=== PATIENT | female | born 2000 | race Hispanic/Latino ===

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

== ENCOUNTER 2022-11-06 20:55 | Inpatient (IN) | payer BC ==
--- OUTSIDE RECORDS SUMMARY | 2022-11-06 21:34 | XMS REPORT | Continuity of Care Document ---
:2000 Author Organization [facility] t Address [address] [place] [address] Care Team Providers Name Role Phone Lillian Backnba Daugherty Primary Care Physician Wong Alonso Daugherty Attending Clinician Unavailable Neema Mac Attending Clinician Unavailable GUSTABO BROCK Attending Clinician Unavailable SO KAHN Attending Clinician Unavailable So Kahn DO Attending Clinician Gustabo Brock MD Attending Clinician Evelyne Sutton MA Attending Clinician Unavailable [place] Su RN Attending Clinician Unavailable Chago Bonilla MD Attending Clinician Dayton Ferris MD Attending Clinician Korey Eubanks CRNA Attending Clinician PAIGE ALCALA Attending Clinician Unavailable Paige Alcala MD Attending Clinician Doctor Unassigned, [place] Attending Clinician Unavailable RAISSA PEREA Attending Clinician Unavailable Richard Langley PT, Lyndsay Attending Clinician Unavailable Brit FRASER, Raissa Jaimes Attending Clinician Ela Raphael PA-C Attending Clinician Ultrasound, [facility] Attending Clinician Unavailable Regino Tinoco MD Attending Clinician REGINO TINOCO Attending Clinician Unavailable Nurse, [facility] Attending Clinician Unavailable ELA RAPHAEL Attending Clinician Unavailable Odilon Reynolds RN, Ela Attending Clinician Unavailable 2, [facility] Attending Clinician Unavailable Last BURCH, Angelica Alicea Attending Clinician Unavailable VANDANA NARAYANAN Attending Clinician Unavailable Vandana Narayanan DO Attending Clinician Only, Luiz Db Test Attending Clinician Unavailable June LEYVA, Janine Medina Attending Clinician JANINE WATKINS Attending Clinician Unavailable JAVIER SWANN Attending Clinician Unavailable Javier Swann MD Attending Clinician [phone] Neena Cardona RN Attending Clinician Unavailable Juan BOYD, Marialuisa Attending Clinician EBRAREEMA WOODSON Attending Clinician Unavailable Ebrahim BIOSTATISTICS PROFESSORReema Attending Clinician Kirsten BIOSTATISTICS PROFESSORMarcella Attending Clinician April GAS PLANT TECHNICIAN, Elsa Mccloud Attending Clinician [facility] Unavailable Jhoana Ibarra MD Attending Clinician Duke Matthew MD Attending Clinician Room, [facility] Attending Clinician Unavailable Carl Delgado MD Attending Clinician Anders Yanes MD Attending Clinician [address] [place] [address] Us Room Attending Clinician Unavailable PAIGE ALCALA Admitting Clinician Unavailable GUSTABO BROCK Admitting Clinician Unavailable CARL DELGADO Admitting Clinician Unavailable ANDERS YANES Admitting Clinician Unavailable Gustabo Brock MD Admitting Clinician Cari FRASER, Paige Jaimes Admitting Clinician Sadia FRASER, Carl Admitting Clinician Joaquín FRASER, Anders Chavez Admitting Clinician Payers Payer Name Policy Type Policy Number Effective Date Expiration Date Filomena abraham [facility] [id number] 2019 HEALTH CHOICE 00:00:00 [facility] [id number] 2022 SELECT 00:00:00 HIM AMBETTER [id number] 2021 FROM SUPERIOR 00:00:00 HEALTH Ambetter from [id number] 2021 [facility] 00:00:00 - [facility] Ambetter from [id number] 2021 Common [facility] 00:00:00 - [facility] Ambetter from [id number] 2021 [facility] 00:00:00 - [facility] Ambetter from [id number] 2021 Common [facility] 00:00:00 - [facility] Ambetter from [id number] 2021 Common [facility] 00:00:00 - [facility] [id number] 2020 [facility] 00:00:00 - [facility] [id number] 2020 [facility] 00:[facility]:00 [facility] [id number] [facility] 00:00:00 [facility] Problems Condition Condition Condition Status Onset Resolution Last Treating Co mments Source Name Details Category Date Date Treatment Clinician Date Presence Presence Disease Active 2021-11 Unive rs of of 2-12 [place]y of [place] Medical contracept contracept Br anch pa device pa device 39 weeks 39 weeks Disease Active 2021-11 Unive rs gestation gestation 0-24 ity of of of 00:00: [place] 00 Medi kailash Branch [place] Herminio Disease Active 2021-11 Univers Bang Bang 0-11 ity of contractio contractio [place] Pain of Pain of Disease Active 2021-11 Univers round round 0-11 ity of ligament ligament 00:00: [place] during during 00 Medical Bran ch Urinary Urinary Disease Active Univers incontinen incontinen 9-27 it y of ce in ce in 00:00: [place] female female 00 Medical Branch 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 [place] of [place] major major 00 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 features without without prior prior episode episode Sciatic Sciatic Disease Active Univers pain, pain, 08-12 ity of right right 00:00: [place] 00 Medical Branch Nonintract Nonintract Disease Active U nivers able able 6-10 ity of headache, headache, 00:00: Gabriele savage unspecifie unspecifie 00 Me dical d d Branch chronicity chronicity pattern, pattern, unspecifie unspecifie d headache d headache type type Dizziness Dizziness Disease Active Uni vers and and 6-02 ity of giddiness giddiness 00:00: Gabrie[place] savage 00 Medical Branch Nausea and Nausea and Disease Active U nivers vomiting vomiting 4-05 ity of during during 00:00: [place] 00 Medi kailash prior to prior to Branch 22 weeks 22 weeks gestation gestation High risk High risk Disease Active Uni vers , , 4-05 it y of antepartum antepartum [place] Anxiety Anxiety Disease Active Univers disorder, disorder, 4-05 ity of unspecifie unspecifie 00:[place] d type d type 00 Medical Branch Liveborn Liveborn Disease Active Unive rs , of infant, of 5-06 it y of jacobs jacobs 00:00: [place] s , , 00 Me dical born in born in [facility] hospital by vaginal by vaginal delivery delivery Encounter Encounter Disease Active Uni vers for for 5-04 ity of planned planned 00:00: [place] induction induction 00 Medi kailash of labor of labor Branch Amniotic Amniotic Disease Active 2020-0 Unive rs fluid fluid 3-20 ity of index index 00:00: [place] decreased decreased 00 [facility] Oligohydra Oligohydra Disease Active 2020-0 U nivers mnios mnios 3-04 ity of 00:00: [place] 00 Medical Branch Disease Active 2020-0 Univers premature premature 3-03 ity of rupture of rupture of [place] membranes membranes 00 [facility] (PPROM) (PPROM) Branch with with unknown unknown onset of onset of labor labor Oligohydra Oligohydra Disease Active 2020-0 U nivers mnios in mnios in 3-03 ity of third third 00:00: [place] trimester trimester 00 [facility] Nausea and Nausea and Disease Active 2020-0 U nivers vomiting vomiting 2-24 ity of during during 00:00: [place] 00 [facility] 31 weeks 31 weeks Disease Active 2020-0 Unive rs gestation gestation 1-02 ity of of of 00:00: [place] 00 [facility] 32 weeks 32 weeks Disease Active 2020-0 Unive rs gestation gestation 1-02 ity of of of 00:00: [place] 00 [facility] 33 weeks 33 weeks Disease Active 2020-0 Unive rs gestation gestation 1-02 ity of of of 00:00: [place] 00 [facility] 36 weeks 36 weeks Disease Active 2020-0 Unive rs gestation gestation 1-02 ity of of of 00:00: [place] 00 [facility] 37 weeks 37 weeks Disease Active 2020-0 Unive rs gestation gestation 1-02 ity of of of 00:00: [place] 00 [facility] 38 weeks 38 weeks Disease Active 2020-0 Unive rs gestation gestation 1-02 ity of of of 00:00: [place] 00 [facility] 39 weeks 39 weeks Disease Active 2020-0 Unive rs gestation gestation 1-02 ity of of of 00:00: [place] 00 [facility] High-risk High-risk Disease Active 2020-0 Uni vers 1-02 ity of in third in third 00:00: [place] trimester trimester 00 [facility] 21 weeks 21 weeks Disease Active 2020-0 Unive rs gestation gestation 1-02 ity of of of 00:00: [place] 00 [facility] 26 weeks 26 weeks Disease Active 2020-0 Unive rs gestation gestation 1-02 ity of of of 00:00: [place] 00 [facility] 29 weeks 29 weeks Disease Active Unive rs gestation gestation 1- ity of of of 00:00: [place] [facility] 30 weeks 30 weeks Disease Active Unive rs gestation gestation 1 ity of of of 00:00: [place] [facility] Mild Mild Disease Active Univers intermitte intermitte 9-24 it y of nt asthma nt asthma 00:[place] without without 00 Medical complicati complicati Br anch on on Asthma Asthma Disease Active Overview: Univer s 912 ICD10 ity of 00:00: Diagnosis [place] [facility] Monitor Branch Utility Recurrent Recurrent Problem Com mon sinusitis sinusitis Spir it - [facility] [id number] Enlarged Problem Comm on tonsils [facility] [id number] Body mass Problem Com mon index [facility] [BMI] - [facility] 34.0-34.9, [facility] [id number] Other Problem Common obesity Spirit due to - [facility] excess [facility] [id number] Non-season Problem Com mon al Spirit allergic - [facility] Allergies, Adverse Reactions, Alerts Allergy Allergy Status Severity Reaction(s) Onset Inactive Treating Comm ents Source Name Type Date Date Clinician NO KNOWN Drug Active Univers ALLERGIE Class ity of S [facility] Social History Social Habit Start Date Stop Date Quantity Comments Source ASSERTION 2021-12-23 University 00:00:00 [facility] History [facility] University o f Alcohol Frequency [place] M edical Branch History SDSC University o f Alcohol Std [place] Medical Drinks [place] History SDSC University o f Alcohol Binge [place] Medic al [place] History of Passive smoker University of tobacco use [facility] Sex Assigned [facility] Exposure to 2022-10-25 2022-11-04 Not sure University of SARS-CoV-2 00:00:00 08:23:00 [facility] (event) Branch Alcohol intake 2022-10-27 2022-10-27 Ex-drinker University 00:00:00 00:00:00 (finding) [facility] Tobacco use and 2022-09-08 2022-09-08 Smokeless tobacco Un iversity of exposure 00:00:00 00:00:00 non-user [facility] Tobacco Comment 2022-06-23 2022-06-23 denies smoke Univers ity of 00:00:00 00:00:00 exposure [facility] Alcohol Comment 2021-06-27 2021-06-27 2x a month Universit y of 00:00:00 00:00:00 [facility] Smoking Status Start Date Stop Date Source Never smoked tobacco [facility] Medications Ordered Filled Start Stop Current Ordering Indication Dosage Frequency Signature Comments Components Source Medication Medication Date Date Medication? Clinician (SIG) Name Name ondansetron 2021-11- No 4mg 4 mg, Univ ers (ZOFRAN-ODT 2-20 12-20 Oral, ity of ) 15:30: 14:23 ONCE, 1 [place] disintegrat 00 :00 dose, On Medi kailash ing tablet Tue Branch 4 mg 11/04/22 at 0930, Routine ondansetron 2021-11- No [id number] 4mg Take 1 Univers 4 mg 2-20 12-20 tablet by ity of disintegrat 00:00: 00:00 [place] tablet 00 :00 every 8 Medica l (eight) Branch hours as needed for Nausea and Vomiting (N/V). levonorgest 2021-11- No [id number] 1{devic Univers reL 2-12 e} ity of (KYLEENA) 23:00: 22:01 [place] IUD 1 00 :00 Paper Bag Maker [place] levonorgest 2021-11- No [id number] 1{devic 1 Device, Univers reL 2-12 e} Intrauteri ity of (KYLEENA) 23:00: 22:01 [place], [place]CE, [place] IUD 1 00 :00 1 dose, On Paper Bag Maker Mon Branch 10/27/22 at 1700, Routine levonorgest 2021-11- No [id number] 1{devic Univers reL 2-10 27-12 e} ity of (KYLEENA) 23:00: 22:01 [place] IUD 1 00 :00 Paper Bag Maker Branch levonorgest 2021-11- No [id number] 1{devic 1 Device, Univers reL 2-12 e} Intrauteri ity of (KYLEENA) 23:00: 22:01 [place], ONCE, [place] IUD 1 00 :00 1 dose, On Paper Bag Maker Mon Branch 10/27/22 at 1700, Routine busPIRone 2021-11 Yes 7.5mg Take 7.5 Uni vers 7.5 mg 2-12 mg by ity of tablet 15:29: mouth in [place] [address] the Medical morning Branch and 7.5 mg in the evening. busPIRone 2021-11 Yes 7.5mg Take 7.5 Uni vers 7.5 mg 2-12 mg by ity of tablet 15:29: mouth in [place] [address] the Medical morning Branch and 7.5 mg in the evening. busPIRone 2021-11 Yes 7.5mg Take 7.5 Uni vers 7.5 mg 2-12 mg by ity of tablet 15:29: mouth in [place] [address] the Medical morning Branch and 7.5 mg in the evening. busPIRone 2021-11 Yes 7.5mg Take 7.5 Uni vers 7.5 mg 2-12 mg by ity of tablet 15:29: mouth in [place] [address] the Medical morning Branch and 7.5 mg in the evening. fluconazole 2021-11 Yes [id number] 200mg Take 1 Univers (DIFLUCAN) 2-09 tablet by ity of 200 mg 00:00: mouth in [place] tablet 00 the Medical morning. Branch fluconazole 2021-11 Yes [id number] 200mg Take 1 Univers (DIFLUCAN) 2-09 tablet by ity of 200 mg 00:00: mouth in [place] tablet 00 the Medical morning. Branch fluconazole 2021-11 Yes [id number] 200mg Take 1 Univers (DIFLUCAN) 2-09 tablet by ity of 200 mg 00:00: mouth in [place] tablet 00 the Medical morning. Branch fluconazole 2021-11 Yes [id number] 200mg Take 1 Univers (DIFLUCAN) 2-09 tablet by ity of 200 mg 00:00: mouth in [place] tablet 00 the Medical morning. Branch fluconazole 2021-11- No [id number] 200mg Take 1 Univers (DIFLUCAN) 2-09 12-20 tablet by ity of 200 mg 00:00: 00:00 mouth in [place] tablet 00 :00 the Medical morning. Branch busPIRone 2021-11 Yes 7.5mg Take 7.5 Uni vers 7.5 mg 1-09 mg by ity of tablet 11:52: mouth in [place] [address] the Medical morning Branch and 7.5 mg in the evening. busPIRone 2021-11 Yes 7.5mg Take 7.5 Uni vers 7.5 mg 1-09 mg by ity of tablet 11:52: mouth in [place] [address] the [facility] morning Branch and 7.5 mg in the evening. busPIRone 2021-11 Yes 7.5mg Take 7.5 Uni vers 7.5 mg 1-09 mg by ity of tablet 11:52: mouth in [place] [address] the [facility] morning Branch and 7.5 mg in the evening. busPIRone 2021-11 Yes 7.5mg Take 7.5 Uni vers 7.5 mg 1-09 mg by ity of tablet 11:52: mouth in [place] [address] the [facility] morning [place] and 7.5 mg in the evening. busPIRone 2021-11 Yes 7.5mg Take 7.5 Uni vers 7.5 mg 1-09 mg by ity of tablet 11:52: mouth in [place] [address] the [facility] morning [place] and 7.5 mg in the evening. busPIRone 2021-11 Yes 7.5mg Take 7.5 Uni vers 7.5 mg 1-09 mg by ity of tablet 11:52: mouth in [address] and 7.5 mg in the evening. busPIRone 2021-11 Yes 7.5mg Take 7.5 Uni vers 7.5 mg 1-09 mg by ity of tablet 11:52: mouth in [address] and 7.5 mg in the evening. miSOPROStoL 2021-11 Yes [id number] 200ug Take 1 Univers 200 mcg 1-09 tablet by ity of tablet 00:00: mouth [place] [address] SEE-INSTRU Medical CTIONS. Branch Take one tab the night before and one tab the morning of procedure busPIRone 2021-11 Yes [id number] 7.5mg Take 1 U nivers 7.5 mg 1-09 tablet by ity of tablet 00:00: mouth in [place] [address] the [facility] morning [place] and 1 tablet in the evening. miSOPROStoL 2021-11 Yes [id number] 200ug Take 1 Univers 200 mcg 1-09 tablet by ity of tablet 00:00: mouth [address] CTIONS. Branch Take one tab the night before and one tab the morning of procedure busPIRone 2021-11 Yes [id number] 7.5mg Take 1 U nivers 7.5 mg 1-09 tablet by ity of tablet 00:00: mouth in [place] 00 the Medical morning Branch and 1 tablet in the evening. miSOPROStoL 2021-11 Yes [id number] 200ug Take 1 Univers 200 mcg 1-09 tablet by ity of tablet 00:00: mouth [address] CTIONS[address] Branch Take one tab the night before and one tab the morning of procedure busPIRone 2021-11 Yes [id number] 7.5mg Take 1 U nivers 7.5 mg 1-09 tablet by ity of tablet 00:00: mouth in [place] 00 the Medical morning Branch and 1 tablet in the evening. miSOPROStoL 2021-11 Yes [id number] 200ug Take 1 Univers 200 mcg 1-09 tablet by ity of tablet 00:00: mouth [address] CTIONS[address] Branch Take one tab the night before and one tab the morning of procedure busPIRone 2021-11 Yes [id number] 7.5mg Take 1 U nivers 7.5 mg 1-09 tablet by ity of tablet 00:00: mouth in [place] the Medical morning Branch and 1 tablet in the evening. miSOPROStoL 2021-11 Yes [id number] 200ug Take 1 Univers 200 mcg 1-09 tablet by ity of tablet 00:00: mouth [address] CTIONS[address] Branch Take one tab the night before and one tab the morning of procedure busPIRone 2021-11 Yes [id number] 7.5mg Take 1 U nivers 7.5 mg 1-09 tablet by ity of tablet 00:00: mouth in [place] [address] the Medical morning Branch and 1 tablet in the evening. miSOPROStoL 2021-11 Yes [id number] 200ug Take 1 Univers 200 mcg 1-09 tablet by ity of tablet 00:00: mouth [address] CTIONS[address] Branch Take one tab the night before and one tab the morning of procedure busPIRone 2021-11 Yes [id number] 7.5mg Take 1 U nivers 7.5 mg 1-09 tablet by ity of tablet 00:00: mouth in [place] 00 the Medical morning Branch and 1 tablet in the evening. miSOPROStoL 2021-11 Yes [id number] 200ug Take 1 Univers 200 mcg 1-09 tablet by ity of tablet 00:00: mouth [address] CTIONS[address] Branch Take one tab the night before and one tab the morning of procedure busPIRone 2021-11 Yes [id number] 7.5mg Take 1 U nivers 7.5 mg 1-09 tablet by ity of tablet 00:00: mouth in [place] 00 the Medical morning Branch and 1 tablet in the evening. miSOPROStoL 2021-11 Yes [id number] 200ug Take 1 Univers 200 mcg 1-09 tablet by ity of tablet 00:00: mouth [address] CTIONS[address] Branch Take one tab the night before and one tab the morning of procedure busPIRone 2021-11 Yes [id number] 7.5mg Take 1 U nivers 7.5 mg 1-09 tablet by ity of tablet 00:00: mouth in [place] [address] the Medical morning Branch and 1 tablet in the evening. miSOPROStoL 2021-11 Yes [id number] 200ug Take 1 Univers 200 mcg 1-09 tablet by ity of tablet 00:00: mouth [address] CTIONS[address] Branch Take one tab the night before and one tab the morning of procedure busPIRone 2021-11 Yes [id number] 7.5mg Take 1 U nivers 7.5 mg 1-09 tablet by ity of tablet 00:00: mouth in [place] the Medical morning Branch and 1 tablet in the evening. miSOPROStoL 2021-11 Yes [id number] 200ug Take 1 Univers 200 mcg 1-09 tablet by ity of tablet 00:00: mouth [address] Medical CTIONS. Branch Take one tab the night before and one tab the morning of procedure busPIRone 2021-11 Yes [id number] 7.5mg Take 1 U nivers 7.5 mg 1-09 tablet by ity of tablet 00:00: mouth in [place] [address] the Medical morning Branch and 1 tablet in the evening. busPIRone 2021-11 Yes [id number] 7.5mg Take 1 U nivers 7.5 mg 1-09 tablet by ity of tablet 00:00: mouth in [place] 00 the Medical morning Branch and 1 tablet in the evening. miSOPROStoL 2021-11- No [id number] 200ug Take 1 Univers 200 mcg 11-24-20 tablet by ity of tablet 00:00: 00:00 mouth [place] 00 :00 SEE-INSTRU Medical CTIONS. Branch Take one tab the night before and one tab the morning of procedure SERTraline 2021-11 Yes 50mg 50 mg, Unive rs (ZOLOFT) 0-25 Oral, ity of tablet 50 14:00: DAILY, [place] mg 00 First dose Medical on [facility] 09/09/22 at 0900, Until Discontinu ed, Routine 2021-11 Yes 1{tbl} 1 tablet, Un socorro vitamin 0-25 Oral, ity of w/FA tablet 14:00: [place]ILY, [place] 1 [place] 00 First dose Medic al on [facility] 09/09/22 at 0900, Until Discontinu ed, Routine cetirizine 2021-11- No Take by Uni vers HCl (ZYRTEC 0-25 10-25 mouth. ity o f ORAL) 12:44: 00:00 [place] 53 :00 Medical Branch acetaminoph 2021-11- No Take by Un socorro en (TYLENOL 0-25 10-25 mouth. ity o f ORAL) 12:44: 00:00 [place] 53 :00 Medical Branch 2021-11 Yes [id number] 1{tbl} Take 1 Univers vitamin 0-25 102 tablet by ity of w/FA tablet 00:00: mouth [place] the Medical morning. Branch docusate 2021-11 Yes [id number] 200mg Take 2 Univers 100 mg 0-25 102 capsules ity of capsule 00:00: by mouth [place] 00 once daily Medical as needed Branch for Constipati on. ferrous 2021-11 Yes [id number] 325mg Take 1 Univers sulfate 325 0-25 102 tablet by ity of mg (65 mg 00:00: [facility] [place] [facility] the Medical tablet morning Branch and 1 tablet in the evening. ibuprofen 2021-11 Yes [id number] 600mg Take 1 Univers 600 mg 0-25 102 tablet by ity of tablet 00:00: mouth [place] 00 every 6 Medical (six) Branch hours as needed (Pain). Take with food or milk. 2021-11 Yes [id number] 1{tbl} Take 1 Univers vitamin 0-25 102 tablet by ity of w/FA tablet 00:00: [place] 00 the Medical morning. Branch docusate 2021-11 Yes [id number] 200mg Take 2 Univers 100 mg 0-25 102 capsules ity of capsule 00:00: by mouth [place] 00 once daily Medical as needed Branch for Constipati on. ferrous 2021-11 Yes [id number] 325mg Take 1 Univers sulfate 325 0-25 102 tablet by ity of mg (65 mg 00:00: [place] iron[place] 00 the Medical tablet morning Branch and 1 tablet in the evening. ibuprofen 2021-11 Yes [id number] 600mg Take 1 Univers 600 mg 0-25 102 tablet by ity of tablet 00:00: mouth [place] 00 every 6 Medical (six) Branch hours as needed (Pain). Take with food or milk. 2021-11- No [id number] 1{tbl} Take 1 Univers vitamin 0-25 11-09 102 tablet by ity of w/FA tablet 00:00: 00:00 mouth in [place] :00 the Medical morning. Branch docusate 2021-11- No [id number] 200mg Take 2 Univers 100 mg 0-25 11-09 102 capsules ity of capsule 00:00: 00:00 by mouth [place] 00 :00 once daily Medical as needed Branch for Constipati on. ferrous 2021-11- No [id number] 325mg Take 1 Univers sulfate 325 0-25 11- 102 tablet by it y of mg (65 mg 00:00: 00:00 mouth in [place] iron) 00 :00 the Medical tablet morning Branch and 1 tablet in the evening. ibuprofen 2021-11- No [id number] 600mg Take 1 Univers 600 mg 0-25 11-09 102 tablet by ity of tablet 00:00: 00:00 mouth [place] 00 :00 every 6 Medical (six) Branch hours as needed (Pain). Take with food or milk. rho(D) 2021-11 Yes 300ug 300 mcg, Univer s immune 0-24 Intramuscu ity of globulin 21:38: lar, ONCE, [place] as (RHOGAM) 55 For 1 Medical syringe 300 dose, Branch mcg Conditiona l, Routine HYDROcodone 2021-11 Yes 1{tbl} 1 tablet, Univers -acetaminop 0-24 Oral, ity of hen (NORCO 21:38: Q6HPRN, [place] 5) 5-325 mg 51 Starting Medi kailash tablet 1 on Thu Branch tablet 09/08/22 at 1638, Until Discontinu ed, Routine, Pain (scale 7-10) ibuprofen 2021-11 Yes 600mg 600 mg, Univ ers (IBU) 0-24 Oral, ity of tablet 600 21:38: Q6HPRN, [place] mg 51 Starting Medical on Mon Branch 09/08/22 at 1638, Until Discontinu ed, Routine, Pain (scale 4-6) acetaminoph 2021-11 Yes 650mg 650 mg, Un socorro en 0-24 Oral, ity of (TYLENOL) 21:38: Q6HPRN, [place] tablet 650 51 Starting Medic al mg on Thu Branch 09/08/22 at 1638, Until Discontinu ed, Routine, Pain (scale 1-3) diphenhydrA 2021-11 Yes 25mg 25 mg, Univ ers MINE 0-24 Oral, ity of (BENADRYL) 21:38: Q6HPRN, [place] tablet 25 51 Starting Medica l mg on Thu Branch 09/08/22 at 1638, Until Discontinu ed, Routine, Sleep, Itching ondansetron 2021-11 Yes 4mg 4 mg, Slow Univers (ZOFRAN 0-24 IV Push, ity of (PF)) 21:38: Q8HPRN, [place] injection 4 51 Starting Medi kailash mg on Thu Branch 09/08/22 at 1638, Until Discontinu ed, Routine, Nausea and Vomiting (N/V) simethicone 2021-11 Yes 160mg 160 mg, Un socorro (GAS RELIEF 0-24 Oral, ity of (SIMETHICON 21:38: PC+HSPRN, [place] E)) 51 Starting Medical chewable on Thu Branch tablet 160 09/08/22 mg at 1638, Until Discontinu ed, Routine, Gas docusate 2021-11 Yes 200mg 200 mg, Unive rs (COLACE) 0-24 Oral, ity of capsule 200 21:38: QDAILYPRN, [place] mg 51 Starting Medical on Mon Branch 09/08/22 at 1638, Until Discontinu ed, Routine, Constipati on magnesium 2021-11 Yes 30mL 30 mL, Univer s hydroxide 0-24 Oral, ity of (MILK OF 21:38: QDAILYPRN, [place] MAGNESIA) 51 Starting Medica l 400 mg/5 mL on Thu Branch suspension 09/08/22 30 mL at 1638, Until Discontinu ed, Routine, Constipati on benzocaine- 2021-11 Yes Topical, [place] menthol 0-24 PRN, ity of (DERMOPLAST 21:38: [place] 20-0.5 % 51 on [facility] Medical topical 09/08/22 Branch spray at 1638, Until Discontinu ed, Routine, Perineum discomfort witch Sima 2021-11 Yes Topical, Un [place] (TUCKS) 50 0-24 Q4HPRN, ity of % topical 21:24: [place] pad 48 on [facility] Medical 09/08/22 Branch at 1624, Until Discontinu ed, Routine, rectal/hem orrhoidal pain rho(D) 2021-11 Yes 300ug 300 mcg, Univer s immune 0-24 Intramuscu ity of globulin 21:19: lar, ONCE, [place] (RHOGAM) 31 For 1 Medical syringe 300 dose, Branch mcg Conditiona l, Routine HYDROcodone 2021-11 Yes 1{tbl} 1 tablet, Univers -acetaminop 0-24 Oral, ity of hen (NORCO 21:15: Q6HPRN, [place] 5) 5-325 mg 19 Starting Medi kailash tablet 1 on [facility] Branch tablet 09/08/22 at 1615, Until Discontinu ed, Routine, Pain (scale 7-10) ibuprofen 2021-11 Yes 600mg 600 mg, Univ ers (IBU) 0-24 Oral, ity of tablet 600 21:15: Q6HPRN, [place] mg 19 Starting Medical on Mon Branch 09/08/22 at 1615, Until Discontinu ed, Routine, Pain (scale 4-6) acetaminoph 2021-11 Yes 650mg 650 mg, [place] en 0-24 Oral, ity of (TYLENOL) 21:15: Q6HPRN, [place] tablet 650 19 Starting Medic al mg on Thu Branch 09/08/22 at 1615, Until Discontinu ed, Routine, Pain (scale 1-3) diphenhydrA 2021-11 Yes 25mg 25 mg, Univ ers MINE 0-24 Oral, ity of (BENADRYL) 21:15: Q6HPRN, [place] tablet 25 19 Starting Medica l mg on Thu09/08/22 at 1615, Until Discontinu ed, Routine, Sleep, Itching ondansetron 2021-11 Yes 4mg 4 mg, Slow Univers (ZOFRAN 0-24 IV Push, ity of (PF)) 21:15: Q8HPRN, [place] injection 4 19 Starting Medi kailash mg on Thu09/08/22 at 1615, Until Discontinu ed, Routine, Nausea and Vomiting (N/V) simethicone 2021-11 Yes 160mg 160 mg, [place] (GAS RELIEF 0-24 Oral, ity of (SIMETHICON 21:15: PC+HSPRN, [place] E)) 19 Starting Medical chewable on Thu tablet 160 09/08/22 mg at 1615, Until Discontinu ed, Routine, Gas docusate 2021-11 Yes 200mg 200 mg, Unive rs (COLACE) 0-24 Oral, ity of capsule 200 21:15: QDAILYPRN, [place] mg 19 Starting Medical on Thu Branch 09/08/22 at 1615, Until Discontinu ed, Routine, Constipati on magnesium 2021-11 Yes 30mL 30 mL, Univer s hydroxide 0-24 Oral, ity of (MILK OF 21:15: QDAILYPRN, [place] MAGNESIA) 19 Starting Medica l 400 mg/5 mL on Thu suspension 09/08/22 30 mL at 1615, Until Discontinu ed, Routine, Constipati on oxytocin 2021-11 Yes 600mL/h 600 mL/hr, Univers (PITOCIN) 0-24 IV ity of 30 units in 21:15: Infusion, [place] NS 500 mL 18 PRN, For Medica l IV infusion post Branch delivery uterine atony., Starting on Thu09/08/[address] art at 600 mL/hr for 1 hr then 150 mL/hr for 1 hr.
oxytocin 2021-11 Yes 300mL/h 300 mL/hr, Univers (PITOCIN) 0-24 IV ity of 30 units in 21:15: Infusion, [place] NS 500 mL 18 SEE-INSTRU Medi kailash IV infusion CTIONS, Branc h Starting on 09/08/[address] art at 300 mL/hr for 1 hr then 150 mL/hr for 1 hr. & nbsp; For post delivery uterotonic .
benzocaine- 2021-11 Yes Topical, [place] menthol 0-24 PRN, ity of (DERMOPLAST 21:15: [place] ) 20-0.5 % 18 on Thu Medical topical 09/08/22 Branch spray at 1615, Until Discontinu ed, Routine, Perineum discomfort fentaNYL-ro 2021-11- No Epidural, Univers pivacaine 2 0-24 10-24 ONCE INTRA i ty of mcg/mL-0.1 17:18: 22:23 PROCEDURE, [place] % (PF) in 00 :48 Starting Medica l NS 200 mL on Thu Branch epidural 09/08/22 infusion at 1218, RTU Until Thu09/08/22 at 1723, Routine, Intra-op lidocaine-e 2021-11- No Intraderma Univers pinephrine 0-24 10-24 l, ONCE ity o f (XYLOCAINE 17:13: 22:23 INTRA [place] W/EPINEPHRI 00 :48 PROCEDURE, Me dical NE) 1.5 Starting Branch %-1:200,000 on Mon injection 09/08/22 at 1213, Until Thu09/08/22 at 1723, Routine, Intra-op lidocaine 2021-11- No Slow IV Univ ers in 0-24 10-24 Push, ONCE ity of NaCl,iso-os 17:10: 22:23 INTRA [place] mo(PF) 100 00 :48 PROCEDURE, Med ical mg/10 mL (1 Starting Bran ch %) on Mon injection 09/08/22 syringe at 1210, Until 09/08/22 at 1723, Routine, Intra-op cetirizine 2021-11 Yes Take by Univ ers HCl (ZYRTEC 0-24 mouth. ity of ORAL) 16:20: [place] [address] Medical Branch acetaminoph 2021-11 Yes Take by Uni vers en (TYLENOL 0-24 mouth. ity of ORAL) 16:20: [address] cetirizine 2021-11 Yes Take by [facility] ers HCl (ZYRTEC 0-24 mouth. ity of ORAL) 16:20: [address] acetaminoph 2021-11 Yes Take by Uni vers en (TYLENOL 0-24 mouth. ity of ORAL) 16:20: [address] lactated 2021-11- No 500mL at 999 Unive rs ringers IV 0-24 10-24 mL/hr, 500 it y of infusion 09:30: 16:23 mL, IV [place] 500 mL 00 :13 Infusion, Medical ONCE, 1 Branch dose, On Thu09/08/22 at 0430, Routine sodium 2021-11- No 30mL 30 mL, Univers citrate-cit 0-24 10-24 Oral, ity of urvashi acid 09:20: 16:24 PRE-PROCED [place] (BICITRA) 25 :00 URE ONCE, Medic al 500-334 1 dose, Branch mg/5 mL Starting solution 30 on Thu mL 09/08/22 at 0420, Until Discontinu ed, Routine, Surgery/Pr ocedure oxytocin 2021-11- No 2mU/min at 2-40 [place] (PITOCIN) 0-24 10-24 mL/hr, IV ity of 30 units in 09:20: 21:39 Infusion, [place] NS 500 mL 22 :33 TITRATE, Medica l IV infusion Starting Bran ch on Thu09/08/22 at 0420, Until Thu09/08/22 at 1639, CHERYL [id number] IV 2021-11- No 1000mL at 1-125 U nivers infusion 0-24 10-24 mL/hr, IV ity o f 1,000 mL 09:20: 21:39 Infusion, [place] 22 :33 TITRATE, Medical Starting Branch on Thu09/08/22 at 0420, Until Thu09/08/22 at 1639, Routine FENTanyl PF 2021-11- No 100ug 100 mcg, Univers (SUBLIMAZE 0-24 10-24 Slow IV ity o f (PF)) 09:20: 21:24 Push, [place] injection 19 :48 Q1HPRN, Medical 100 mcg Starting Branch on Thu09/08/22 at 0420, Until Thu09/08/22 at 1624, Routine, contractio n pain without an epidural and SVE < 8 cm and Cat I strip cetirizine 2021-11 Yes Take by Univ ers HCl (ZYRTEC 0-21 mouth. ity of ORAL) 04:58: [address] acetaminoph 2021-11 Yes Take by Uni vers en (TYLENOL 0-21 mouth. ity of ORAL) 04:58: [address] cetirizine 2021-11 Yes Take by Univ ers HCl (ZYRTEC 0-21 mouth. ity of ORAL) 04:58: [address] acetaminoph 2021-11 Yes Take by Uni vers en (TYLENOL 0-21 mouth. ity of ORAL) 04:58: [address] cetirizine 2021-11 Yes Take by Univ ers HCl (ZYRTEC 0-18 mouth. ity of ORAL) 01:08: [address] acetaminoph 2021-11 Yes Take by Uni vers en (TYLENOL 0-18 mouth. ity of ORAL) 01:08: [address] cetirizine 2021-11 Yes Take by Univ ers HCl (ZYRTEC 0-18 mouth. ity of ORAL) 01:08: [address] acetaminoph 2021-11 Yes Take by Uni vers en (TYLENOL 0-18 mouth. ity of ORAL) 01:08: [address] busPIRone 2021-11- Yes [id number] 7.5mg Take 1 Univers 7.5 mg 0-11 10-26 tablet by ity of tablet 00:00: 04:59 mouth in [place] 00 :00 the Medical morning Branch and 1 tablet in the evening. Do all this for 14 days. busPIRone 2021-11- Yes [id number] 7.5mg Take 1 Univers 7.5 mg 0-11 10-26 tablet by ity of tablet 00:00: 04:59 mouth in [place] 00 :00 the Medical morning Branch and 1 tablet in the evening. Do all this for 14 days. busPIRone 2021-11- Yes [id number] 7.5mg Take 1 Univers 7.5 mg 0-11 10-26 tablet by ity of tablet 00:00: 04:59 mouth in [place] 00 :00 the Medical morning [place] and 1 tablet in the evening. Do all this for 14 days. busPIRone 2021-11- Yes 7.5mg Take 1 Univers 7.5 mg 0-11 10-26 tablet by ity of tablet 00:00: 04:59 mouth in [place] 00 :00 the [facility] morning [place] and 1 tablet in the evening. Do all this for 14 days. busPIRone 2021-11- Yes 7.5mg Take 1 Univers 7.5 mg 0-11 10-26 tablet by ity of tablet 00:00: 04:59 mouth in [place] 00 :00 the [facility] morning [place] and 1 tablet in the evening. Do all this for 14 days. busPIRone 2021-11- Yes 7.5mg Take 1 Univers 7.5 mg 0-11 10-26 tablet by ity of tablet 00:00: 04:59 mouth in [place] 00 :00 the [facility] and 1 tablet in the evening. Do all this for 14 days. busPIRone 2021-11- Yes [id number] 7.5mg Take 1 Univers 7.5 mg 0-11 10-26 tablet by ity of tablet 00:00: 04:59 mouth in [place] 00 :00 the [facility] and 1 tablet in the evening. Do all this for 14 days. busPIRone 2021-11- Yes 7.5mg Take 1 Univers 7.5 mg 0-11 10-26 tablet by ity of tablet 00:00: 04:59 mouth in [place] 00 :00 the [facility] and 1 tablet in the evening. Do all this for 14 days. busPIRone 2021-11- Yes 7.5mg Take 1 Univers 7.5 mg 0-11 10-26 tablet by ity of tablet 00:00: 04:59 mouth in [place] 00 :00 the [facility] and 1 tablet in the evening. Do all this for 14 days. SERTraline Yes [id number] 50mg Take 1 U nivers (ZOLOFT) 50 9-27 tablet by ity of mg tablet 00:00: [facility] [place] [facility] morning. Branch busPIRone 2021-0 Yes [id number] 10mg Take 1 U nivers 10 mg 9-27 tablet by ity of tablet 00:00: mouth in [place] 00 the Medical morning Branch and 1 tablet in the evening. SERTraline 2021-0 Yes [id number] 50mg Take 1 U nivers (ZOLOFT) 50 9-27 tablet by ity of mg tablet 00:00: [place] 00 the Medical morning. Branch busPIRone 2021-0 Yes [id number] 10mg Take 1 U nivers 10 mg 9-27 tablet by ity of tablet 00:00: mouth in [place] 00 the Medical morning Branch and 1 tablet in the evening. SERTraline 2021-0 Yes [id number] 50mg Take 1 U nivers (ZOLOFT) 50 9-27 tablet by ity of mg tablet 00:00: [place] the Medical morning. Branch busPIRone 0 Yes [id number] 10mg Take 1 U nivers 10 mg 9-27 tablet by ity of tablet 00:00: mouth in [place] 00 the Medical morning Branch and 1 tablet in the evening. SERTraline 0 Yes [id number] 50mg Take 1 U nivers (ZOLOFT) 50 9-27 tablet by ity of mg tablet 00:00: [place] 00 the Medical morning. Branch SERTraline 0 Yes [id number] 50mg Take 1 U nivers (ZOLOFT) 50 9-27 tablet by ity of mg tablet 00:00: [place] 00 the Medical morning. Branch SERTraline 0 Yes [id number] 50mg Take 1 U nivers (ZOLOFT) 50 9-27 tablet by ity of mg tablet 00:00: [place] 00 the Medical morning. Branch SERTraline 0 Yes [id number] 50mg Take 1 U nivers (ZOLOFT) 50 9-27 tablet by ity of mg tablet 00:00: [place] 00 the Medical morning. Branch SERTraline 2021-0 Yes [id number] 50mg Take 1 U nivers (ZOLOFT) 50 9-27 tablet by ity of mg tablet 00:00: [place] 00 the Medical morning. Branch SERTraline 0 Yes [id number] 50mg Take 1 U nivers (ZOLOFT) 50 9-27 tablet by ity of mg tablet 00:00: [place] 00 the Medical morning. Branch SERTraline 0 Yes [id number] 50mg Take 1 U nivers (ZOLOFT) 50 9-27 tablet by ity of mg tablet 00:00: [place] 00 the Medical morning. Branch SERTraline 0 Yes [id number] 50mg Take 1 U nivers (ZOLOFT) 50 9-27 tablet by ity of mg tablet 00:00: [place] 00 the Medical morning. Branch SERTraline 0 Yes [id number] 50mg Take 1 U nivers (ZOLOFT) 50 9-27 tablet by ity of mg tablet 00:00: [place] 00 the Medical morning. Branch SERTraline Yes [id number] 50mg Take 1 U nivers (ZOLOFT) 50 9-27 tablet by ity of mg tablet 00:00: [place] 00 the Medical morning. Branch SERTraline 2021- No [id number] 50mg Take 1 Univers (ZOLOFT) 50 9-27 11-09 tablet by it y of mg tablet 00:00: 00:00 mouth in [place] 00 :00 the Medical morning. Branch busPIRone 2021- No [id number] 10mg Take 1 Univers 10 mg 9-27 10-11 tablet by ity of tablet 00:00: 00:00 mouth in [place] 00 :00 the Medical morning Branch and 1 tablet in the evening. cetirizine Yes Take by [facility] ers HCl (ZYRTEC 9-21 mouth. ity of ORAL) 19:14: [address] acetaminoph Yes Take by Uni vers en (TYLENOL 9-21 mouth. ity of ORAL) 19:14: [address] cetirizine Yes Take by [facility] ers HCl (ZYRTEC 9-21 mouth. ity of ORAL) 19:14: [address] acetaminoph Yes Take by Uni vers en (TYLENOL 9-21 mouth. ity of ORAL) 19:14: [address] cetirizine Yes Take by Univ ers HCl (ZYRTEC 9-21 mouth. ity of ORAL) 19:14: [address] acetaminoph Yes Take by Uni vers en (TYLENOL 9-21 mouth. ity of ORAL) 19:14: [address] cetirizine Yes Take by Univ ers HCl (ZYRTEC 9-21 mouth. ity of ORAL) 19:14: [address] acetaminoph Yes Take by Uni vers en (TYLENOL 9-21 mouth. ity of ORAL) 19:14: [address] cetirizine Yes Take by Univ ers HCl (ZYRTEC 9-21 mouth. ity of ORAL) 19:14: [address] acetaminoph Yes Take by Uni vers en (TYLENOL 9-21 mouth. ity of ORAL) 19:14: [address] cetirizine Yes Take by Univ ers HCl (ZYRTEC 9-21 mouth. ity of ORAL) 19:14: [address] acetaminoph Yes Take by Uni vers en (TYLENOL 9-21 mouth. ity of ORAL) 19:14: [address] albuterol Yes [id number] 2{puff} Inhale 2 Univers 90 9-13 Puffs ity of mcg/actuati 00:00: every 6 [place] on inhaler 00 (six) Medical hours as Branch needed for Wheezing or Shortness of Breath. albuterol Yes [id number] 2{puff} Inhale 2 Univers 90 9-13 Puffs ity of mcg/actuati 00:00: every 6 [place] on inhaler 00 (six) Medical hours as Branch needed for Wheezing or Shortness of Breath. albuterol 0 Yes [id number] 2{puff} Inhale 2 Univers 90 9-13 Puffs ity of mcg/actuati 00:00: every 6 [place] on inhaler 00 (six) Medical hours as Branch needed for Wheezing or Shortness of Breath. albuterol Yes [id number] 2{puff} Inhale 2 Univers 90 9-13 Puffs ity of mcg/actuati 00:00: every 6 [place] on inhaler 00 (six) Medical hours as Branch needed for Wheezing or Shortness of Breath. albuterol Yes [id number] 2{puff} Inhale 2 Univers 90 9-13 Puffs ity of mcg/actuati 00:00: every 6 [place] on inhaler 00 (six) Medical hours as Branch needed for Wheezing or Shortness of Breath. albuterol Yes [id number] 2{puff} Inhale 2 Univers 90 9-13 Puffs ity of mcg/actuati 00:00: every 6 [place] on inhaler 00 (six) Medical hours as Branch needed for Wheezing or Shortness of Breath. albuterol Yes [id number] 2{puff} Inhale 2 Univers 90 9-13 Puffs ity of mcg/actuati 00:00: every 6 [place] on inhaler 00 (six) Medical hours as Branch needed for Wheezing or Shortness of Breath. albuterol Yes [id number] 2{puff} Inhale 2 Univers 90 9-13 Puffs ity of mcg/actuati 00:00: every 6 [place] on inhaler 00 (six) Medical hours as Branch needed for Wheezing or Shortness of Breath. albuterol Yes [id number] 2{puff} Inhale 2 Univers 90 9-13 Puffs ity of mcg/actuati 00:00: every 6 [place] on inhaler 00 (six) Medical hours as Branch needed for Wheezing or Shortness of Breath. albuterol Yes [id number] 2{puff} Inhale 2 Univers 90 9-13 Puffs ity of mcg/actuati 00:00: every 6 [place] on inhaler 00 (six) Medical hours as Branch needed for Wheezing or Shortness of Breath. albuterol Yes [id number] 2{puff} Inhale 2 Univers 90 9-13 Puffs ity of mcg/actuati 00:00: every 6 [place] on inhaler 00 (six) Medical hours as Branch needed for Wheezing or Shortness of Breath. albuterol Yes [id number] 2{puff} Inhale 2 Univers 90 9-13 Puffs ity of mcg/actuati 00:00: every 6 [place] on inhaler 00 (six) Medical hours as Branch needed for Wheezing or Shortness of Breath. albuterol Yes [id number] 2{puff} Inhale 2 Univers 90 9-13 Puffs ity of mcg/actuati 00:00: every 6 [place] on inhaler 00 (six) Medical hours as Branch needed for Wheezing or Shortness of Breath. albuterol Yes [id number] 2{puff} Inhale 2 Univers 90 9-13 Puffs ity of mcg/actuati 00:00: every 6 [place] on inhaler 00 (six) Medical hours as Branch needed for Wheezing or Shortness of Breath. albuterol Yes [id number] 2{puff} Inhale 2 Univers 90 9-13 Puffs ity of mcg/actuati 00:00: every 6 [place] on inhaler 00 (six) Medical hours as Branch needed for Wheezing or Shortness of Breath. albuterol Yes [id number] 2{puff} Inhale 2 Univers 90 9-13 Puffs ity of mcg/actuati 00:00: every 6 [place] on inhaler 00 (six) Medical hours as Branch needed for Wheezing or Shortness of Breath. albuterol Yes [id number] 2{puff} Inhale 2 Univers 90 9-13 Puffs ity of mcg/actuati 00:00: every 6 [place] on inhaler 00 (six) Medical hours as Branch needed for Wheezing or Shortness of Breath. albuterol Yes [id number] 2{puff} Inhale 2 Univers 90 9-13 Puffs ity of mcg/actuati 00:00: every 6 [place] on inhaler 00 (six) Medical hours as Branch needed for Wheezing or Shortness of Breath. albuterol Yes [id number] 2{puff} Inhale 2 Univers 90 9-13 Puffs ity of mcg/actuati 00:00: every 6 [place] on inhaler 00 (six) Medical hours as Branch needed for Wheezing or Shortness of Breath. albuterol Yes [id number] 2{puff} Inhale 2 Univers 90 9-13 Puffs ity of mcg/actuati 00:00: every 6 [place] on inhaler 00 (six) Medical hours as Branch needed for Wheezing or Shortness of Breath. albuterol Yes [id number] 2{puff} Inhale 2 Univers 90 9-13 Puffs ity of mcg/actuati 00:00: every 6 [place] on inhaler 00 (six) Medical hours as Branch needed for Wheezing or Shortness of Breath. albuterol Yes [id number] 2{puff} Inhale 2 Univers 90 9-13 Puffs ity of mcg/actuati 00:00: every 6 [place] on inhaler 00 (six) Medical hours as Branch needed for Wheezing or Shortness of Breath. albuterol Yes [id number] 2{puff} Inhale 2 Univers 90 9-13 Puffs ity of mcg/actuati 00:00: every 6 [place] on inhaler 00 (six) Medical hours as Branch needed for Wheezing or Shortness of Breath. albuterol Yes [id number] 2{puff} Inhale 2 Univers 90 9-13 Puffs ity of mcg/actuati 00:00: every 6 [place] on inhaler 00 (six) Medical hours as Branch needed for Wheezing or Shortness of Breath. albuterol Yes [id number] 2{puff} Inhale 2 Univers 90 9-13 Puffs ity of mcg/actuati 00:00: every 6 [place] on inhaler 00 (six) Medical hours as Branch needed for Wheezing or Shortness of Breath. albuterol Yes [id number] 2{puff} Inhale 2 Univers 90 9-13 Puffs ity of mcg/actuati 00:00: every 6 [place] on inhaler 00 (six) Medical hours as Branch needed for Wheezing or Shortness of Breath. albuterol Yes [id number] 2{puff} Inhale 2 Univers 90 9-13 Puffs ity of mcg/actuati 00:00: every 6 [place] on inhaler 00 (six) Medical hours as Branch needed for Wheezing or Shortness of Breath. albuterol Yes [id number] 2{puff} Inhale 2 Univers 90 9-13 Puffs ity of mcg/actuati 00:00: every 6 [place] on inhaler 00 (six) Medical hours as Branch needed for Wheezing or Shortness of Breath. Amoxicillin Amoxicillin 2021- No 1{table BID Amoxicilli -Pot -Pot 07-14 t} n-Pot Clavulanate Clavulanate 00:00: 00:00 Clavulanat 875-125 MG 875-125 MG 00 :00 e 875-125 MG Amoxicillin Amoxicillin 2021- No 1{table BID Amoxicilli -Pot -Pot 07-14 t} n-Pot Clavulanate Clavulanate 00:00: 00:00 Clavulanat 875-125 MG 875-125 MG 00 :00 e 875-125 MG acetaminoph Yes Take by Uni vers en (TYLENOL 8-23 mouth. ity of ORAL) 14:46: [place] [address] Medical Branch acetaminoph Yes Take by Uni vers en (TYLENOL 8-23 mouth. ity of ORAL) 14:46: [place] [address] Medical Branch acetaminoph Yes Take by Uni vers en (TYLENOL 8-23 mouth. ity of ORAL) 14:46: [place] [address] Medical Branch acetaminoph Yes Take by Uni vers en (TYLENOL 8-23 mouth. ity of ORAL) 14:46: [address] Branch acetaminoph Yes Take by Uni vers en (TYLENOL 8-23 mouth. ity of ORAL) 14:46: [address] Branch acetaminoph Yes Take by Uni vers en (TYLENOL 8-23 mouth. ity of ORAL) 14:46: [address] Branch busPIRone 5 2021-0 Yes [id number] 5mg Take 1 Univers mg tablet 8-23 tablet by ity o f 00:00: mouth in [place] [address] the Medical morning Branch and 1 tablet at noon and 1 tablet in the evening. busPIRone 5 2021-0 Yes [id number] 5mg Take 1 Univers mg tablet 8-23 tablet by ity o f 00:00: mouth in [place] 00 the Medical morning Branch and 1 tablet at noon and 1 tablet in the evening. busPIRone 5 2021-0 Yes [id number] 5mg Take 1 Univers mg tablet 8-23 tablet by ity o f 00:00: mouth in [place] 00 the Medical morning Branch and 1 tablet at noon and 1 tablet in the evening. busPIRone 5 2021-0 Yes [id number] 5mg Take 1 Univers mg tablet 8-23 tablet by ity o f 00:00: mouth in [place] 00 the Medical morning Branch and 1 tablet at noon and 1 tablet in the evening. busPIRone 5 2021-0 Yes [id number] 5mg Take 1 Univers mg tablet 8-23 tablet by ity o f 00:00: mouth in [place] 00 the Medical morning Branch and 1 tablet at noon and 1 tablet in the evening. busPIRone 5 2021-0 Yes [id number] 5mg Take 1 Univers mg tablet 8-23 tablet by ity o f 00:00: mouth in [place] 00 the Medical morning Branch and 1 tablet at noon and 1 tablet in the evening. busPIRone 5 2021-0 Yes [id number] 5mg Take 1 Univers mg tablet 8-23 tablet by ity o f 00:00: mouth in [place] 00 the Medical morning Branch and 1 tablet at noon and 1 tablet in the evening. busPIRone 5 2021-0 2021- No [id number] 5mg Take 1 Univers mg tablet 8-23 09-27 tablet by ity of 00:00: 00:00 mouth in [place] 00 :00 the Medical morning Branch and 1 tablet at noon and 1 tablet in the evening. albuterol Yes [id number] 2{puff} Inhale 2 Univers 90 8-15 Puffs ity of mcg/actuati 00:00: every 6 [place] on inhaler 00 (six) Medical hours as Branch needed for Wheezing or Shortness of Breath. albuterol Yes [id number] 2{puff} Inhale 2 Univers 90 8-15 Puffs ity of mcg/actuati 00:00: every 6 [place] on inhaler 00 (six) Medical hours as Branch needed for Wheezing or Shortness of Breath. albuterol Yes [id number] 2{puff} Inhale 2 Univers 90 8-15 Puffs ity of mcg/actuati 00:00: every 6 [place] on inhaler 00 (six) Medical hours as Branch needed for Wheezing or Shortness of Breath. albuterol Yes [id number] 2{puff} Inhale 2 Univers 90 8-15 Puffs ity of mcg/actuati 00:00: every 6 [place] on inhaler 00 (six) Medical hours as Branch needed for Wheezing or Shortness of Breath. albuterol Yes [id number] 2{puff} Inhale 2 Univers 90 8-15 Puffs ity of mcg/actuati 00:00: every 6 [place] on inhaler 00 (six) Medical hours as Branch needed for Wheezing or Shortness of Breath. albuterol Yes [id number] 2{puff} Inhale 2 Univers 90 8-15 Puffs ity of mcg/actuati 00:00: every 6 [place] on inhaler 00 (six) Medical hours as Branch needed for Wheezing or Shortness of Breath. albuterol 2021- No [id number] 2{puff} Inhale 2 Univers 90 8-15 09-13 Puffs ity of mcg/actuati 00:00: 00:00 every 6 [place] on inhaler 00 :00 (six) Medical hours as Branch needed for Wheezing or Shortness of Breath. albuterol 2021- No [id number] 2{puff} Inhale 2 Univers 90 8-15 09-13 Puffs ity of mcg/actuati 00:00: 00:00 every 6 [place] on inhaler 00 :00 (six) Medical hours as Branch needed for Wheezing or Shortness of Breath. busPIRone 5 Yes [id number] 5mg Take 1 Univers mg tablet 8-08 tablet by ity o f 00:00: mouth in [place] the Medical morning Branch and 1 tablet in the evening. busPIRone 5 0 Yes [id number] 5mg Take 1 Univers mg tablet 8-08 tablet by ity o f 00:00: mouth in [place] 00 the Medical morning Branch and 1 tablet in the evening. busPIRone 5 2021-0 Yes [id number] 5mg Take 1 Univers mg tablet 8-08 tablet by ity o f 00:00: mouth in [place] the Medical morning Branch and 1 tablet in the evening. busPIRone 5 0 Yes [id number] 5mg Take 1 Univers mg tablet 8-08 tablet by ity o f 00:00: mouth in [place] 00 the Medical morning Branch and 1 tablet in the evening. busPIRone 5 2021-0 Yes [id number] 5mg Take 1 Univers mg tablet 8-08 tablet by ity o f 00:00: mouth in [place] 00 the Medical morning Branch and 1 tablet in the evening. busPIRone 5 2021-0 Yes [id number] 5mg Take 1 Univers mg tablet 8-08 tablet by ity o f 00:00: mouth in [place] 00 the Medical morning Branch and 1 tablet in the evening. busPIRone 5 2021-0 2021- No [id number] 5mg Take 1 Univers mg tablet 8-08 08-23 tablet by ity of 00:00: 00:00 mouth in [place] 00 :00 the Medical morning Branch and 1 tablet in the evening. acetaminoph 2021- No 1000mg 1,000 mg, Univers en 06-12 07- Oral, ity of (TYLENOL) 08:30: 08:24 ONCE, [place] tablet 00 :[place] dose, On Medical 1,[address] [facility] 06/12/22 at 0330, CHERYL acetaminoph Yes Take by Uni vers en (TYLENOL 6-28 mouth. ity of ORAL) 13:09: [address] acetaminoph Yes Take by Uni vers en (TYLENOL 6-28 mouth. ity of ORAL) 13:09: [address] acetaminoph 0 Yes Take by [facility] (TYLENOL 6-28 mouth. ity of ORAL) 13:09: [address] acetaminoph 0 Yes Take by [facility] (TYLENOL 6-28 mouth. ity of ORAL) 13:09: [address] acetaminoph 0 Yes Take by [facility] (TYLENOL 6-28 mouth. ity of ORAL) 13:09: [address] acetaminoph 0 Yes Take by [facility] (TYLENOL 6-28 mouth. ity of ORAL) 13:09: [address] acetaminoph 0 Yes Take by [facility] (TYLENOL 6-28 mouth. ity of ORAL) 13:09: [address] acetaminoph 2022-0 Yes Take by [facility] (TYLENOL 6-28 mouth. ity of ORAL) 13:09: [place] [address] [facility] acetaminoph 0 Yes Take by [facility] (TYLENOL 6-28 mouth. ity of ORAL) 13:09: [place] [address] [facility] acetaminoph 2021-0 Yes Take by [facility] (TYLENOL 6-28 mouth. ity of ORAL) 13:09: [place] [address] [facility] acetaminoph 0 Yes Take by [facility] (TYLENOL 6-28 mouth. ity of ORAL) 13:09: [place] [address] [facility] acetaminoph 0 Yes Take by [facility] (TYLENOL 6-28 mouth. ity of ORAL) 13:09: [place] [address] [facility] magnesium 0 Yes [id number] 400mg Take 1 U nivers oxide 400 6-10 tablet by ity o f mg (241.3 00:00: mouth [place] mg 00 daily. Medical magnesium) Branch tablet magnesium 0 Yes [id number] 400mg Take 1 U nivers oxide 400 6-10 tablet by ity o f mg (241.3 00:00: mouth [place] mg 00 daily. Medical magnesium) Branch tablet magnesium 2021-0 Yes [id number] 400mg Take 1 [facility] nivers oxide 400 6-10 tablet by ity o f mg (241.3 00:00: mouth [place] mg 00 daily. Medical magnesium) Branch tablet magnesium 2021-0 Yes [id number] 400mg Take 1 [facility] nivers oxide 400 6-10 tablet by ity o f mg (241.3 00:00: mouth [place] mg 00 daily. Medical magnesium) Branch tablet magnesium 2021-0 Yes [id number] 400mg Take 1 [facility] nivers oxide 400 6-10 tablet by ity o f mg (241.3 00:00: mouth [place] mg 00 daily. Medical magnesium) Branch tablet magnesium 2021-0 Yes [id number] 400mg Take 1 [facility] nivers oxide 400 6-10 tablet by ity o f mg (241.3 00:00: mouth [place] mg 00 daily. Medical magnesium) Branch tablet magnesium 2021-0 Yes [id number] 400mg Take 1 [facility] nivers oxide 400 6-10 tablet by ity o f mg (241.3 00:00: mouth [place] mg 00 daily. Medical magnesium) Branch tablet magnesium 2021-0 Yes [id number] 400mg Take 1 [facility] nivers oxide 400 6-10 tablet by ity o f mg (241.3 00:00: mouth [place] mg 00 daily. Medical magnesium) Branch tablet magnesium 2021-0 Yes [id number] 400mg Take 1 [facility] nivers oxide 400 6-10 tablet by ity o f mg (241.3 00:00: mouth [place] mg 00 daily. Medical magnesium) Branch tablet magnesium 2021-0 Yes [id number] 400mg Take 1 [facility] nivers oxide 400 6-10 tablet by ity o f mg (241.3 00:00: mouth [place] mg 00 daily. Medical magnesium) Branch tablet magnesium 2021-0 Yes [id number] 400mg Take 1 [facility] nivers oxide 400 6-10 tablet by ity o f mg (241.3 00:00: mouth [place] mg 00 daily. Medical magnesium) Branch tablet magnesium 2021-0 Yes [id number] 400mg Take 1 [facility] nivers oxide 400 6-10 tablet by ity o f mg (241.3 00:00: mouth [place] mg 00 daily. Medical magnesium) Branch tablet magnesium 2021-0 Yes [id number] 400mg Take 1 U nivers oxide 400 6-10 tablet by ity o f mg (241.3 00:00: mouth [place] mg 00 daily. Medical magnesium) Branch tablet magnesium 2021-0 Yes [id number] 400mg Take 1 [facility] nivers oxide 400 6-10 tablet by ity o f mg (241.3 00:00: mouth [place] mg 00 daily. Medical magnesium) Branch tablet magnesium 2021-0 Yes [id number] 400mg Take 1 [facility] nivers oxide 400 6-10 tablet by ity o f mg (241.3 00:00: mouth [place] mg 00 daily. Medical magnesium) Branch tablet magnesium 2021-0 Yes [id number] 400mg Take 1 [facility] nivers oxide 400 6-10 tablet by ity o f mg (241.3 00:00: mouth [place] mg 00 daily. Medical magnesium) Branch tablet magnesium 2021-0 Yes [id number] 400mg Take 1 [facility] nivers oxide 400 6-10 tablet by ity o f mg (241.3 00:00: mouth [place] mg 00 daily. Medical magnesium) Branch tablet magnesium 2021-0 Yes [id number] 400mg Take 1 [facility] nivers oxide 400 6-10 tablet by ity o f mg (241.3 00:00: mouth [place] mg 00 daily. Medical magnesium) Branch tablet magnesium 2021-0 Yes [id number] 400mg Take 1 [facility] nivers oxide 400 6-10 tablet by ity o f mg (241.3 00:00: mouth [place] mg 00 daily. Medical magnesium) Branch tablet magnesium 2021-0 Yes [id number] 400mg Take 1 [facility] nivers oxide 400 6-10 tablet by ity o f mg (241.3 00:00: mouth [place] mg 00 daily. Medical magnesium) Branch tablet magnesium 2021-0 Yes [id number] 400mg Take 1 [facility] nivers oxide 400 6-10 tablet by ity o f mg (241.3 00:00: mouth [place] mg 00 daily. Medical magnesium) Branch tablet magnesium 2021-0 Yes [id number] 400mg Take 1 [facility] nivers oxide 400 6-10 tablet by ity o f mg (241.3 00:00: mouth [place] mg 00 daily. Medical magnesium) Branch tablet magnesium 2021-0 Yes [id number] 400mg Take 1 [facility] n[facility] oxide 400 6-10 tablet by ity o f mg (241.3 00:00: mouth [place] mg 00 daily. Medical magnesium) Branch tablet magnesium 2021-0 Yes [id number] 400mg Take 1 [facility] nivers oxide 400 6-10 tablet by ity o f mg (241.3 00:00: mouth [place] mg 00 daily. Medical magnesium) Branch tablet magnesium 2021-0 Yes [id number] 400mg Take 1 [facility] nivers oxide 400 6-10 tablet by ity o f mg (241.3 00:00: mouth [place] mg 00 daily. Medical magnesium) Branch tablet magnesium 2021-0 Yes [id number] 400mg Take 1 [facility] nivers oxide 400 6-10 tablet by ity o f mg (241.3 00:00: mouth [place] mg 00 daily. Medical magnesium) Branch tablet magnesium 2021-0 Yes [id number] 400mg Take 1 U nivers oxide 400 6-10 tablet by ity o f mg (241.3 00:00: mouth [place] mg 00 daily. Medical magnesium) Branch tablet magnesium 2021-0 Yes [id number] 400mg Take 1 [facility] nivers oxide 400 6-10 tablet by ity o f mg (241.3 00:00: mouth [place] mg 00 daily. Medical magnesium) Branch tablet magnesium 2021-0 Yes [id number] 400mg Take 1 [facility] nivers oxide 400 6-10 tablet by ity o f mg (241.3 00:00: mouth [place] mg 00 daily. Medical magnesium) Branch tablet magnesium 2021-0 Yes [id number] 400mg Take 1 [facility] nivers oxide 400 6-10 tablet by ity o f mg (241.3 00:00: mouth [place] mg 00 daily. Medical magnesium) Branch tablet magnesium 2021-0 Yes [id number] 400mg Take 1 [facility] nivers oxide 400 6-10 tablet by ity o f mg (241.3 00:00: mouth [place] mg 00 daily. Medical magnesium) Branch tablet magnesium 2021-0 Yes [id number] 400mg Take 1 [facility] nivers oxide 400 6-10 tablet by ity o f mg (241.3 00:00: mouth [place] mg 00 daily. Medical magnesium) Branch tablet magnesium 2021- No [id number] 400mg Take 1 [facility] oxide 400 6-10 10-25 tablet by ity of mg (241.3 00:00: 00:00 mouth [place] mg 00 :00 daily. Medical magnesium) Branch tablet cetirizine Yes Take by [facility] ers HCl (ZYRTEC 6-09 mouth. ity of ORAL) 13:09: [place] [address] [facility] Branch acetaminoph 0 Yes Take by [facility] (TYLENOL 6-09 mouth. ity of ORAL) 13:09: [place] [address] [facility] Branch cetirizine 2021-0 Yes Take by [facility] ers HCl (ZYRTEC 6-09 mouth. ity of ORAL) 13:09: [place] [address] [facility] acetaminoph 2021-0 Yes Take by [facility] (TYLENOL 6-09 mouth. ity of ORAL) 13:09: [place] [address] [facility] Branch cetirizine 2021-0 Yes Take by [facility] ers HCl (ZYRTEC 6-09 mouth. ity of ORAL) 13:09: [place] [address] [facility] Branch cetirizine 2021-0 Yes Take by [facility] HCl (ZYRTEC 6-09 mouth. ity of ORAL) 13:09: [place] [address] [facility] cetirizine 2021-0 Yes Take by [facility] HCl (ZYRTEC 6-09 mouth. ity of ORAL) 13:09: [place] [address] [facility] Branch cetirizine 2021-0 Yes Take by [facility] HCl (ZYRTEC 6-09 mouth. ity of ORAL) 13:09: [place] [address] [facility] Branch cetirizine 0 Yes Take by [facility] ers HCl (ZYRTEC 6-09 mouth. ity of ORAL) 13:09: [address] Branch cetirizine 0 Yes Take by [facility] ers HCl (ZYRTEC 6-09 mouth. ity of ORAL) 13:09: [place] [address] [facility] Branch cetirizine 0 Yes Take by [facility] HCl (ZYRTEC 6-09 mouth. ity of ORAL) 13:09: [place] [address] [facility] Branch cetirizine 0 Yes Take by [facility] HCl (ZYRTEC 6-09 mouth. ity of ORAL) 13:09: [address] Branch cetirizine 2021-0 Yes Take by [facility] HCl (ZYRTEC 6-09 mouth. ity of ORAL) 13:09: [address] Branch cetirizine 0 Yes Take by [facility] HCl (ZYRTEC 6-09 mouth. ity of ORAL) 13:09: [address] Branch cetirizine 0 Yes Take by [facility] HCl (ZYRTEC 6-09 mouth. ity of ORAL) 13:09: [address] Branch cetirizine 0 Yes Take by [facility] HCl (ZYRTEC 6-09 mouth. ity of ORAL) 13:09: [address] cetirizine 0 Yes Take by [facility] ers HCl (ZYRTEC 6-09 mouth. ity of ORAL) 13:09: [address] Branch cetirizine 0 Yes Take by [facility] HCl (ZYRTEC 6-09 mouth. ity of ORAL) 13:09: [address] Branch cetirizine 0 Yes Take by [facility] HCl (ZYRTEC 6-09 mouth. ity of ORAL) 13:09: [address] Branch cetirizine 0 Yes Take by [facility] HCl (ZYRTEC 6-09 mouth. ity of ORAL) 13:09: [address] Branch cetirizine 0 Yes Take by [facility] HCl (ZYRTEC 6-09 mouth. ity of ORAL) 13:09: [address] Branch cetirizine 2021-0 Yes Take by [facility] HCl (ZYRTEC 6-09 mouth. ity of ORAL) 13:09: [place] [facility] cetirizine 2021-0 Yes Take by [facility] ers HCl (ZYRTEC 5-05 mouth. ity of ORAL) 11:32: [place] [facility] cetirizine 2021-0 Yes Take by [facility] HCl (ZYRTEC 5-05 mouth. ity of ORAL) 11:32: [place] [facility] cetirizine 0 Yes Take by [facility] ers HCl (ZYRTEC 5-05 mouth. ity of ORAL) 11:32: [address] cetirizine 0 Yes Take by [facility] ers HCl (ZYRTEC 5-05 mouth. ity of ORAL) 11:32: [place] [facility] cetirizine 2021-0 Yes Take by [facility] ers HCl (ZYRTEC 5-05 mouth. ity of ORAL) 11:32: [address] cetirizine 0 Yes Take by [facility] ers HCl (ZYRTEC 5-05 mouth. ity of ORAL) 11:32: [address] ondansetron 2021-0 Yes 4mg Take 1 Univ ers (ZOFRAN) 4 4-07 tablet by ity of mg tablet 00:00: mouth [place] 00 every 8 Medical (eight) Branch hours as needed for Nausea and Vomiting (N/V). Pt to take prn nausea and vomiting not controlled by other medication . ondansetron 2021-0 Yes 4mg Take 1 [facility] ers (ZOFRAN) 4 4-07 tablet by ity of mg tablet 00:00: mouth [place] 00 every 8 Medical (eight) Branch hours as needed for Nausea and Vomiting (N/V). Pt to take prn nausea and vomiting not controlled by other medication . ondansetron 2-0 Yes 4mg Take 1 [facility] ers (ZOFRAN) 4 4-07 tablet by ity of mg tablet 00:00: mouth [place] 00 every 8 Medical (eight) Branch hours as needed for Nausea and Vomiting (N/V). Pt to take prn nausea and vomiting not controlled by other medication . ondansetron 2-0 Yes 4mg Take 1 [facility] ers (ZOFRAN) 4 4-07 tablet by ity of mg tablet 00:00: mouth [place] 00 every 8 Medical (eight) Branch hours as needed for Nausea and Vomiting (N/V). Pt to take prn nausea and vomiting not controlled by other medication . ondansetron 2022-0 Yes 4mg Take 1 [facility] ers (ZOFRAN) 4 4-07 tablet by ity of mg tablet 00:00: mouth [place] 00 every 8 Medical (eight) Branch hours as needed for Nausea and Vomiting (N/V). Pt to take prn nausea and vomiting not controlled by other medication . ondansetron 2022-0 Yes 4mg Take 1 [facility] ers (ZOFRAN) 4 4-07 tablet by ity of mg tablet 00:00: mouth [place] 00 every 8 Medical (eight) Branch hours as needed for Nausea and Vomiting (N/V). Pt to take prn nausea and vomiting not controlled by other medication . ondansetron 2022-0 Yes 4mg Take 1 [facility] ers (ZOFRAN) 4 4-07 tablet by ity of mg tablet 00:00: mouth [place] 00 every 8 Medical (eight) Branch hours as needed for Nausea and Vomiting (N/V). Pt to take prn nausea and vomiting not controlled by other medication . ondansetron 2022-0 Yes 4mg Take 1 [facility] ers (ZOFRAN) 4 4-07 tablet by ity of mg tablet 00:00: mouth [place] 00 every 8 Medical (eight) Branch hours as needed for Nausea and Vomiting (N/V). Pt to take prn nausea and vomiting not controlled by other medication . ondansetron 2022-0 Yes 4mg Take 1 [facility] ers (ZOFRAN) 4 4-07 tablet by ity of mg tablet 00:00: mouth [place] 00 every 8 Medical (eight) Branch hours as needed for Nausea and Vomiting (N/V). Pt to take prn nausea and vomiting not controlled by other medication . ondansetron 2022-0 Yes 4mg Take 1 [facility] ers (ZOFRAN) 4 4-07 tablet by ity of mg tablet 00:00: mouth [place] 00 every 8 Medical (eight) Branch hours as needed for Nausea and Vomiting (N/V). Pt to take prn nausea and vomiting not controlled by other medication . ondansetron 2022-0 Yes 4mg Take 1 [facility] ers (ZOFRAN) 4 4-07 tablet by ity of mg tablet 00:00: mouth [place] 00 every 8 Medical (eight) Branch hours as needed for Nausea and Vomiting (N/V). Pt to take prn nausea and vomiting not controlled by other medication . ondansetron 2022-0 Yes 4mg Take 1 [facility] ers (ZOFRAN) 4 4-07 tablet by ity of mg tablet 00:00: mouth [place] 00 every 8 Medical (eight) Branch hours as needed for Nausea and Vomiting (N/V). Pt to take prn nausea and vomiting not controlled by other medication . ondansetron 2022-0 Yes 4mg Take 1 [facility] ers (ZOFRAN) 4 4-07 tablet by ity of mg tablet 00:00: mouth [place] 00 every 8 Medical (eight) Branch hours as needed for Nausea and Vomiting (N/V). Pt to take prn nausea and vomiting not controlled by other medication . ondansetron 2022-0 Yes 4mg Take 1 [facility] ers (ZOFRAN) 4 4-07 tablet by ity of mg tablet 00:00: mouth [place] 00 every 8 Medical (eight) Branch hours as needed for Nausea and Vomiting (N/V). Pt to take prn nausea and vomiting not controlled by other medication . ondansetron 2022-0 Yes 4mg Take 1 [facility] ers (ZOFRAN) 4 4-07 tablet by ity of mg tablet 00:00: mouth [place] 00 every 8 Medical (eight) Branch hours as needed for Nausea and Vomiting (N/V). Pt to take prn nausea and vomiting not controlled by other medication . ondansetron 2022-0 Yes 4mg Take 1 [facility] ers (ZOFRAN) 4 4-07 tablet by ity of mg tablet 00:00: mouth [place] 00 every 8 Medical (eight) Branch hours as needed for Nausea and Vomiting (N/V). Pt to take prn nausea and vomiting not controlled by other medication . ondansetron 2022-0 Yes 4mg Take 1 [facility] ers (ZOFRAN) 4 4-07 tablet by ity of mg tablet 00:00: mouth [place] 00 every 8 Medical (eight) Branch hours as needed for Nausea and Vomiting (N/V). Pt to take prn nausea and vomiting not controlled by other medication . ondansetron 2022-0 Yes 4mg Take 1 [facility] ers (ZOFRAN) 4 4-07 tablet by ity of mg tablet 00:00: mouth [place] 00 every 8 Medical (eight) Branch hours as needed for Nausea and Vomiting (N/V). Pt to take prn nausea and vomiting not controlled by other medication . ondansetron 2022-0 Yes 4mg Take 1 Univ ers (ZOFRAN) 4 4-07 tablet by ity of mg tablet 00:00: mouth [place] 00 every 8 Medical (eight) Branch hours as needed for Nausea and Vomiting (N/V). Pt to take prn nausea and vomiting not controlled by other medication . ondansetron 2022-0 Yes 4mg Take 1 [facility] ers (ZOFRAN) 4 4-07 tablet by ity of mg tablet 00:00: mouth [place] 00 every 8 Medical (eight) Branch hours as needed for Nausea and Vomiting (N/V). Pt to take prn nausea and vomiting not controlled by other medication . ondansetron 2022-0 Yes 4mg Take 1 [facility] ers (ZOFRAN) 4 4-07 tablet by ity of mg tablet 00:00: mouth [place] 00 every 8 Medical (eight) Branch hours as needed for Nausea and Vomiting (N/V). Pt to take prn nausea and vomiting not controlled by other medication . ondansetron 2022-0 Yes 4mg Take 1 [facility] ers (ZOFRAN) 4 4-07 tablet by ity of mg tablet 00:00: mouth [place] 00 every 8 Medical (eight) Branch hours as needed for Nausea and Vomiting (N/V). Pt to take prn nausea and vomiting not controlled by other medication . ondansetron 2022-0 Yes 4mg Take 1 [facility] ers (ZOFRAN) 4 4-07 tablet by ity of mg tablet 00:00: mouth [place] 00 every 8 Medical (eight) Branch hours as needed for Nausea and Vomiting (N/V). Pt to take prn nausea and vomiting not controlled by other medication . ondansetron 2022-0 Yes 4mg Take 1 [facility] ers (ZOFRAN) 4 4-07 tablet by ity of mg tablet 00:00: mouth [place] 00 every 8 Medical (eight) Branch hours as needed for Nausea and Vomiting (N/V). Pt to take prn nausea and vomiting not controlled by other medication . ondansetron 2022-0 Yes 4mg Take 1 Univ ers (ZOFRAN) 4 4-07 tablet by ity of mg tablet 00:00: mouth [place] 00 every 8 Medical (eight) Branch hours as needed for Nausea and Vomiting (N/V). Pt to take prn nausea and vomiting not controlled by other medication . ondansetron 2022-0 Yes 4mg Take 1 Univ ers (ZOFRAN) 4 4-07 tablet by ity of mg tablet 00:00: mouth [place] 00 every 8 Medical (eight) Branch hours as needed for Nausea and Vomiting (N/V). Pt to take prn nausea and vomiting not controlled by other medication . ondansetron 2022-0 Yes 4mg Take 1 Univ ers (ZOFRAN) 4 4-07 tablet by ity of mg tablet 00:00: mouth [place] 00 every 8 Medical (eight) Branch hours as needed for Nausea and Vomiting (N/V). Pt to take prn nausea and vomiting not controlled by other medication . ondansetron 2022-0 Yes 4mg Take 1 Univ ers (ZOFRAN) 4 4-07 tablet by ity of mg tablet 00:00: mouth [place] 00 every 8 Medical (eight) Branch hours as needed for Nausea and Vomiting (N/V). Pt to take prn nausea and vomiting not controlled by other medication . ondansetron 2022-0 Yes 4mg Take 1 Univ ers (ZOFRAN) 4 4-07 tablet by ity of mg tablet 00:00: mouth [place] 00 every 8 Medical (eight) Branch hours as needed for Nausea and Vomiting (N/V). Pt to take prn nausea and vomiting not controlled by other medication . ondansetron 2022-0 Yes 4mg Take 1 Univ ers (ZOFRAN) 4 4-07 tablet by ity of mg tablet 00:00: mouth [place] 00 every 8 Medical (eight) Branch hours as needed for Nausea and Vomiting (N/V). Pt to take prn nausea and vomiting not controlled by other medication . ondansetron 2022-0 Yes 4mg Take 1 Univ ers (ZOFRAN) 4 4-07 tablet by ity of mg tablet 00:00: mouth [place] 00 every 8 Medical (eight) Branch hours as needed for Nausea and Vomiting (N/V). Pt to take prn nausea and vomiting not controlled by other medication . ondansetron 2022-0 Yes 4mg Take 1 [facility] ers (ZOFRAN) 4 4-07 tablet by ity of mg tablet 00:00: mouth [place] 00 every 8 Medical (eight) Branch hours as needed for Nausea and Vomiting (N/V). Pt to take prn nausea and vomiting not controlled by other medication . ondansetron 2022-0 Yes 4mg Take 1 [facility] ers (ZOFRAN) 4 4-07 tablet by ity of mg tablet 00:00: mouth [place] 00 every 8 Medical (eight) Branch hours as needed for Nausea and Vomiting (N/V). Pt to take prn nausea and vomiting not controlled by other medication . ondansetron 2022-0 Yes 4mg Take 1 Univ ers (ZOFRAN) 4 4-07 tablet by ity of mg tablet 00:00: mouth [place] 00 every 8 Medical (eight) Branch hours as needed for Nausea and Vomiting (N/V). Pt to take prn nausea and vomiting not controlled by other medication . ondansetron 2022-0 Yes 4mg Take 1 Univ ers (ZOFRAN) 4 4-07 tablet by ity of mg tablet 00:00: mouth [place] 00 every 8 Medical (eight) Branch hours as needed for Nausea and Vomiting (N/V). Pt to take prn nausea and vomiting not controlled by other medication . ondansetron 2022-0 Yes 4mg Take 1 Univ ers (ZOFRAN) 4 4-07 tablet by ity of mg tablet 00:00: mouth [place] 00 every 8 Medical (eight) Branch hours as needed for Nausea and Vomiting (N/V). Pt to take prn nausea and vomiting not controlled by other medication . ondansetron 2022-0 Yes 4mg Take 1 [facility] ers (ZOFRAN) 4 4-07 tablet by ity of mg tablet 00:00: mouth [place] 00 every 8 Medical (eight) Branch hours as needed for Nausea and Vomiting (N/V). Pt to take prn nausea and vomiting not controlled by other medication . ondansetron 2022-0 Yes 4mg Take 1 Univ ers (ZOFRAN) 4 4-07 tablet by ity of mg tablet 00:00: mouth [place] 00 every 8 Medical (eight) Branch hours as needed for Nausea and Vomiting (N/V). Pt to take prn nausea and vomiting not controlled by other medication . ondansetron 2022-0 Yes 4mg Take 1 Univ ers (ZOFRAN) 4 4-07 tablet by ity of mg tablet 00:00: mouth [place] 00 every 8 Medical (eight) Branch hours as needed for Nausea and Vomiting (N/V). Pt to take prn nausea and vomiting not controlled by other medication . ondansetron 2022-0 Yes 4mg Take 1 [facility] ers (ZOFRAN) 4 4-07 tablet by ity of mg tablet 00:00: mouth [place] 00 every 8 Medical (eight) Branch hours as needed for Nausea and Vomiting (N/V). Pt to take prn nausea and vomiting not controlled by other medication . ondansetron 2022-0 Yes 4mg Take 1 Univ ers (ZOFRAN) 4 4-07 tablet by ity of mg tablet 00:00: mouth [place] 00 every 8 Medical (eight) Branch hours as needed for Nausea and Vomiting (N/V). Pt to take prn nausea and vomiting not controlled by other medication . ondansetron 2021-0 2021- No 4mg Take 1 Uni vers (ZOFRAN) 4 4-07 10-25 tablet by ity of mg tablet 00:00: 00:00 mouth [place] 00 :00 every 8 Medical (eight) Branch hours as needed for Nausea and Vomiting (N/V). Pt to take prn nausea and vomiting not controlled by other medication . azithromyci 2021-0 2021- No [id number] 1000mg Take 2 [facility] n 500 mg 4-06 04-08 tablets by ity of tablet 00:00: 04:59 mouth [place] 00 :00 daily for Medical 1 day. Branch azithromyci 2021-0 2021- No [id number] 1000mg Take 2 [facility] n 500 mg 4-06 04-08 tablets by ity of tablet 00:00: 04:59 mouth [place] 00 :00 daily for Medical 1 day. Branch azithromyci 2021-0 2021- No [id number] 1000mg Take 2 [facility] n 500 mg 4-06 04-08 tablets by ity of tablet 00:00: 04:59 mouth [place] 00 :00 daily for Medical 1 day. Branch metoclopram 2021-0 Yes [id number] 10mg Take 1 [facility] HCl 10 4-05 tablet by ity of mg tablet 00:00: mouth [place] 00 every 6 Medical (six) Branch hours as needed for Nausea and Vomiting (N/V). metoclopram 2022-0 Yes [id number] 10mg Take 1 [facility] HCl 10 4-05 tablet by ity of mg tablet 00:00: mouth [place] 00 every 6 Medical (six) Branch hours as needed for Nausea and Vomiting (N/V). metoclopram 2022-0 Yes [id number] 10mg Take 1 [facility] HCl 10 4-05 tablet by ity of mg tablet 00:00: mouth [place] 00 every 6 Medical (six) Branch hours as needed for Nausea and Vomiting (N/V). metoclopram 2022-0 Yes [id number] 10mg Take 1 [facility] HCl 10 4-05 tablet by ity of mg tablet 00:00: mouth [place] 00 every 6 Medical (six) Branch hours as needed for Nausea and Vomiting (N/V). metoclopram 2022-0 Yes [id number] 10mg Take 1 [facility] HCl 10 4-05 tablet by ity of mg tablet 00:00: mouth [place] 00 every 6 Medical (six) Branch hours as needed for Nausea and Vomiting (N/V). metoclopram 2022-0 Yes [id number] 10mg Take 1 [facility] HCl 10 4-05 tablet by ity of mg tablet 00:00: mouth [place] 00 every 6 Medical (six) Branch hours as needed for Nausea and Vomiting (N/V). metoclopram 2022-0 Yes [id number] 10mg Take 1 [facility] HCl 10 4-05 tablet by ity of mg tablet 00:00: mouth [place] 00 every 6 Medical (six) Branch hours as needed for Nausea and Vomiting (N/V). metoclopram 2022-0 Yes [id number] 10mg Take 1 [facility] HCl 10 4-05 tablet by ity of mg tablet 00:00: mouth [place] 00 every 6 Medical (six) Branch hours as needed for Nausea and Vomiting (N/V). metoclopram 2022-0 Yes [id number] 10mg Take 1 [facility] HCl 10 4-05 tablet by ity of mg tablet 00:00: mouth [place] 00 every 6 Medical (six) Branch hours as needed for Nausea and Vomiting (N/V). metoclopram 2022-0 Yes [id number] 10mg Take 1 [facility] HCl 10 4-05 tablet by ity of mg tablet 00:00: mouth [place] 00 every 6 Medical (six) Branch hours as needed for Nausea and Vomiting (N/V). metoclopram 2022-0 Yes [id number] 10mg Take 1 [facility] HCl 10 4-05 tablet by ity of mg tablet 00:00: mouth [place] 00 every 6 Medical (six) Branch hours as needed for Nausea and Vomiting (N/V). metoclopram 2022-0 Yes [id number] 10mg Take 1 [facility] HCl 10 4-05 tablet by ity of mg tablet 00:00: mouth [place] 00 every 6 Medical (six) Branch hours as needed for Nausea and Vomiting (N/V). metoclopram 2022-0 Yes [id number] 10mg Take 1 [facility] HCl 10 4-05 tablet by ity of mg tablet 00:00: mouth [place] 00 every 6 Medical (six) Branch hours as needed for Nausea and Vomiting (N/V). metoclopram 2022-0 Yes [id number] 10mg Take 1 [facility] HCl 10 4-05 tablet by ity of mg tablet 00:00: mouth [place] 00 every 6 Medical (six) Branch hours as needed for Nausea and Vomiting (N/V). metoclopram 2022-0 Yes [id number] 10mg Take 1 [facility] HCl 10 4-05 tablet by ity of mg tablet 00:00: mouth [place] 00 every 6 Medical (six) Branch hours as needed for Nausea and Vomiting (N/V). metoclopram 2022-0 Yes [id number] 10mg Take 1 [facility] HCl 10 4-05 tablet by ity of mg tablet 00:00: mouth [place] 00 every 6 Medical (six) Branch hours as needed for Nausea and Vomiting (N/V). metoclopram 2022-0 Yes [id number] 10mg Take 1 [facility] HCl 10 4-05 tablet by ity of mg tablet 00:00: mouth [place] 00 every 6 Medical (six) Branch hours as needed for Nausea and Vomiting (N/V). metoclopram 2022-0 Yes [id number] 10mg Take 1 [facility] ayden HCl 10 4-05 tablet by ity of mg tablet 00:00: mouth [place] 00 every 6 Medical (six) Branch hours as needed for Nausea and Vomiting (N/V). metoclopram 2022-0 Yes [id number] 10mg Take 1 [facility] ayden HCl 10 4-05 tablet by ity of mg tablet 00:00: mouth [place] 00 every 6 Medical (six) Branch hours as needed for Nausea and Vomiting (N/V). metoclopram 2022-0 Yes [id number] 10mg Take 1 [facility] ayden HCl 10 4-05 tablet by ity of mg tablet 00:00: mouth [place] 00 every 6 Medical (six) Branch hours as needed for Nausea and Vomiting (N/V). metoclopram 2022-0 Yes [id number] 10mg Take 1 [facility] ayden HCl 10 4-05 tablet by ity of mg tablet 00:00: mouth [place] 00 every 6 Medical (six) Branch hours as needed for Nausea and Vomiting (N/V). metoclopram 2022-0 Yes [id number] 10mg Take 1 [facility] ayden HCl 10 4-05 tablet by ity of mg tablet 00:00: mouth [place] 00 every 6 Medical (six) Branch hours as needed for Nausea and Vomiting (N/V). metoclopram 2022-0 Yes [id number] 10mg Take 1 [facility] ayden HCl 10 4-05 tablet by ity of mg tablet 00:00: mouth [place] 00 every 6 Medical (six) Branch hours as needed for Nausea and Vomiting (N/V). metoclopram 2022-0 Yes [id number] 10mg Take 1 [facility] ayden HCl 10 4-05 tablet by ity of mg tablet 00:00: mouth [place] 00 every 6 Medical (six) Branch hours as needed for Nausea and Vomiting (N/V). metoclopram 2022-0 Yes [id number] 10mg Take 1 [facility] ayden HCl 10 4-05 tablet by ity of mg tablet 00:00: mouth [place] 00 every 6 Medical (six) Branch hours as needed for Nausea and Vomiting (N/V). metoclopram 2022-0 Yes [id number] 10mg Take 1 [facility] ayden HCl 10 4-05 tablet by ity of mg tablet 00:00: mouth [place] 00 every 6 Medical (six) Branch hours as needed for Nausea and Vomiting (N/V). metoclopram 2022-0 Yes [id number] 10mg Take 1 [facility] ayden HCl 10 4-05 tablet by ity of mg tablet 00:00: mouth [place] 00 every 6 Medical (six) Branch hours as needed for Nausea and Vomiting (N/V). metoclopram 2-0 Yes [id number] 10mg Take 1 [facility] ayden HCl 10 4-05 tablet by ity of mg tablet 00:00: mouth [place] 00 every 6 Medical (six) Branch hours as needed for Nausea and Vomiting (N/V). metoclopram 2-0 Yes [id number] 10mg Take 1 [facility] ayden HCl 10 4-05 tablet by ity of mg tablet 00:00: mouth [place] 00 every 6 Medical (six) Branch hours as needed for Nausea and Vomiting (N/V). metoclopram 2-0 Yes [id number] 10mg Take 1 [facility] ayden HCl 10 4-05 tablet by ity of mg tablet 00:00: mouth [place] 00 every 6 Medical (six) Branch hours as needed for Nausea and Vomiting (N/V). metoclopram 2021-0 Yes [id number] 10mg Take 1 [facility] ayden HCl 10 4-05 tablet by ity of mg tablet 00:00: mouth [place] 00 every 6 Medical (six) Branch hours as needed for Nausea and Vomiting (N/V). metoclopram 2021-0 Yes [id number] 10mg Take 1 [facility] ay[facility] HCl 10 4-05 tablet by ity of mg tablet 00:00: mouth [place] 00 every 6 Medical (six) Branch hours as needed for Nausea and Vomiting (N/V). metoclopram 2021-0 Yes [id number] 10mg Take 1 [facility] ayden HCl 10 4-05 tablet by ity of mg tablet 00:00: mouth [place] 00 every 6 Medical (six) Branch hours as needed for Nausea and Vomiting (N/V). metoclopram 2021-0 2021- No [id number] 10mg Take 1 [facility] ayden HCl 10 4-05 09-27 tablet by ity of mg tablet 00:00: 00:00 mouth [place] 00 :00 every 6 Medical (six) Branch hours as needed for Nausea and Vomiting (N/V). predniSONE predniSONE 2021-0 2021- No QD predniSONE 20 MG 20 MG -10 02- 20 MG 00:00: 00:00 00 :00 predniSONE predniSONE 2021-0 2021- No QD predniSONE 20 MG 20 MG -10 02-05 20 MG 00:00: 00:00 00 :00 Azithromyci Azithromyci 2021-0 2021- No QD Azithromyc n 250 MG n 250 MG 12-25 in 250 MG 00:00: 00:00 00 :00 Azithromyci Azithromyci 2021- No QD Azithromyc n 250 MG n 250 MG 12-25 in 250 MG 00:00: 00:00 00 :00 Macrobid Macrobid 2021- No BID Macrobid 100 MG 100 MG 12-13 100 MG 00:00: 00:00 00 :00 Nitrofurant Nitrofurant 2021- No 1{capsu BID Nitrofuran oin oin 12-13 le_with toin Macrocrysta Macrocrysta 00:00: 00:00 _food_o Macrocryst l 100 MG l 100 MG 00 :00 r_milk} al 100 MG Macrobid Macrobid 2021- No BID Macrobid 100 MG 100 MG 12-13 100 MG 00:00: 00:00 00 :00 Nitrofurant Nitrofurant 2021- No 1{capsu BID Nitrofuran oin oin 12-13 le_with toin Macrocrysta Macrocrysta 00:00: 00:00 _food_o Macrocryst l 100 MG l 100 MG 00 :00 r_milk} al 100 MG Macrobid Macrobid 2021- No BID Macrobid 100 MG 100 MG 12-13 100 MG 00:00: 00:00 00 :00 Nitrofurant Nitrofurant 2021- No 1{capsu BID Nitrofuran oin oin 12-13 le_with toin Macrocrysta Macrocrysta 00:00: 00:00 _food_o Macrocryst l 100 MG l 100 MG 00 :00 r_milk} al 100 MG Amoxicillin Amoxicillin 2020-11- No 1{table BID Amoxicilli -Pot -Pot 12-15 t} n-Pot Clavulanate Clavulanate 00:00: 00:00 Clavulanat 875-125 MG 875-125 MG 00 :00 e 875-125 MG Amoxicillin Amoxicillin 2020-11- No 1{table BID Amoxicilli -Pot -Pot 12-1507 t} n-Pot Clavulanate Clavulanate 00:00: 00:00 Clavulanat 875-125 MG 875-125 MG 00 :00 e 875-125 MG Amoxicillin Amoxicillin 2020-11- No 1{table BID Amoxicilli -Pot -Pot 30 10-22 t} n-Pot Clavulanate Clavulanate 00:00: 00:00 Clavulanat 875-125 MG 875-125 MG 00 :00 e 875-125 MG PARoxetine 2020-11 Yes [id number] 30mg Take 1 [facility] nivers 30 mg 1-15 tablet by ity of tablet 00:00: mouth [place] 00 daily. Medical Branch PARoxetine 2020-11 Yes [id number] 30mg Take 1 [facility] nivers 30 mg 1-15 tablet by ity of tablet 00:00: mouth [place] 00 daily. Medical Branch PARoxetine 2020-11- No [id number] 30mg Take 1 [facility] 30 mg 1-15 04-05 tablet by ity of tablet 00:00: 00:00 mouth [place] 00 :00 daily. Medical Branch Amoxicillin Amoxicillin 2020-11- No 1{capsu BID Amoxicilli 500 MG 500 MG 0-18 10-28 le} n 500 MG 00:00: 00:00 00 :00 Amoxicillin Amoxicillin 2020-11- No 1{capsu BID Amoxicilli 500 MG 500 MG 0-18 10-28 le} n 500 MG 00:00: 00:00 00 :00 PARoxetine Yes [id number] 20mg Take 1 [facility] nivers 20 mg 8-12 tablet by ity of tablet 00:00: mouth [place] 00 daily. Medical Branch albuterol Yes [id number] 2{puff} Inhale 2 [facility] 90 8-12 Puffs ity of mcg/actuati 00:00: every 6 [place] on inhaler 00 (six) Medical hours as Branch needed for Wheezing or Shortness of Breath. LOESTRIN FE Yes [id number] 1{tbl} Take 1 [facility] 1 mg-20 mcg 8-12 tablet by ity of (21)/75 mg 00:00: mouth [place] (7) tablet 00 daily. Medical Branch PARoxetine Yes [id number] 20mg Take 1 [facility] nivers 20 mg 8-12 tablet by ity of tablet 00:00: mouth [place] 00 daily. Medical Branch albuterol Yes [id number] 2{puff} Inhale 2 [facility] 90 8-12 Puffs ity of mcg/actuati 00:00: every 6 [place] on inhaler 00 (six) Medical hours as Branch needed for Wheezing or Shortness of Breath. LOESTRIN FE Yes [id number] 1{tbl} Take 1 [facility] 1 mg-20 mcg 8-12 tablet by ity of (21)/75 mg 00:00: mouth [place] (7) tablet 00 daily. Medical Branch PARoxetine Yes [id number] 20mg Take 1 [facility] nivers 20 mg 8-12 tablet by ity of tablet 00:00: mouth [place] 00 daily. Medical Branch albuterol Yes [id number] 2{puff} Inhale 2 [facility] 90 8-12 Puffs ity of mcg/actuati 00:00: every 6 [place] on inhaler 00 (six) Medical hours as Branch needed for Wheezing or Shortness of Breath. LOESTRIN FE Yes [id number] 1{tbl} Take 1 [facility] 1 mg-20 mcg 8-12 tablet by ity of (21)/75 mg 00:00: mouth [place] (7) tablet 00 daily. Medical Branch PARoxetine Yes [id number] 20mg Take 1 [facility] nivers 20 mg 8-12 tablet by ity of tablet 00:00: mouth [place] 00 daily. Medical Branch albuterol Yes [id number] 2{puff} Inhale 2 [facility] 90 8-12 Puffs ity of mcg/actuati 00:00: every 6 [place] on inhaler 00 (six) Medical hours as Branch needed for Wheezing or Shortness of Breath. LOESTRIN FE Yes [id number] 1{tbl} Take 1 [facility] 1 mg-20 mcg 8-12 tablet by ity of (21)/75 mg 00:00: mouth [place] (7) tablet 00 daily. Medical Branch PARoxetine Yes [id number] 20mg Take 1 [facility] nivers 20 mg 8-12 tablet by ity of tablet 00:00: mouth [place] 00 daily. Medical Branch albuterol Yes [id number] 2{puff} Inhale 2 [facility] 90 8-12 Puffs ity of mcg/actuati 00:00: every 6 [place] on inhaler 00 (six) Medical hours as Branch needed for Wheezing or Shortness of Breath. LOESTRIN FE Yes [id number] 1{tbl} Take 1 [facility] 1 mg-20 mcg 8-12 tablet by ity of (21)/75 mg 00:00: mouth [place] (7) tablet 00 daily. Medical Branch PARoxetine Yes [id number] 20mg Take 1 [facility] nivers 20 mg 8-12 tablet by ity of tablet 00:00: mouth [place] 00 daily. Medical Branch albuterol Yes [id number] 2{puff} Inhale 2 [facility] 90 8-12 Puffs ity of mcg/actuati 00:00: every 6 [place] on inhaler 00 (six) Medical hours as Branch needed for Wheezing or Shortness of Breath. LOESTRIN FE Yes [id number] 1{tbl} Take 1 [facility] 1 mg-20 mcg 8-12 tablet by ity of (21)/75 mg 00:00: mouth [place] (7) tablet 00 daily. Medical Branch PARoxetine Yes [id number] 20mg Take 1 [facility] nivers 20 mg 8-12 tablet by ity of tablet 00:00: mouth [place] 00 daily. Medical Branch albuterol Yes [id number] 2{puff} Inhale 2 [facility] 90 8-12 Puffs ity of mcg/actuati 00:00: every 6 [place] on inhaler 00 (six) Medical hours as Branch needed for Wheezing or Shortness of Breath. LOESTRIN FE Yes [id number] 1{tbl} Take 1 [facility] 1 mg-20 mcg 8-12 tablet by ity of (21)/75 mg 00:00: mouth [place] (7) tablet 00 daily. Medical Branch PARoxetine Yes [id number] 20mg Take 1 [facility] nivers 20 mg 8-12 tablet by ity of tablet 00:00: mouth [place] 00 daily. Medical Branch albuterol Yes [id number] 2{puff} Inhale 2 [facility] 90 8-12 Puffs ity of mcg/actuati 00:00: every 6 [place] inhaler 00 (six) Medical hours as Branch needed for Wheezing or Shortness of Breath. LOESTRIN FE Yes [id number] 1{tbl} Take 1 [facility] 1 mg-20 mcg 8-12 tablet by ity of (21)/75 mg 00:00: mouth [place] (7) tablet 00 daily. Medical Branch PARoxetine Yes [id number] 20mg Take 1 [facility] nivers 20 mg 8-12 tablet by ity of tablet 00:00: mouth [place] 00 daily. Medical Branch albuterol Yes [id number] 2{puff} Inhale 2 [facility] 90 8-12 Puffs ity of mcg/actuati 00:00: every 6 [place] inhaler 00 (six) Medical hours as Branch needed for Wheezing or Shortness of Breath. LOESTRIN FE Yes [id number] 1{tbl} Take 1 [facility] 1 mg-20 mcg 8-12 tablet by ity of (21)/75 mg 00:00: mouth [place] (7) tablet 00 daily. Medical Branch PARoxetine Yes [id number] 20mg Take 1 [facility] nivers 20 mg 8-12 tablet by ity of tablet 00:00: mouth [place] 00 daily. Medical Branch albuterol Yes [id number] 2{puff} Inhale 2 [facility] 90 8-12 Puffs ity of mcg/actuati 00:00: every 6 [place] on inhaler 00 (six) Medical hours as Branch needed for Wheezing or Shortness of Breath. LOESTRIN FE Yes [id number] 1{tbl} Take 1 [facility] 1 mg-20 mcg 8-12 tablet by ity of (21)/75 mg 00:00: mouth [place] (7) tablet 00 daily. Medical Branch albuterol Yes [id number] 2{puff} Inhale 2 [facility] 90 8-12 Puffs ity of mcg/actuati 00:00: every 6 [place] on inhaler 00 (six) Medical hours as Branch needed for Wheezing or Shortness of Breath. LOESTRIN FE Yes [id number] 1{tbl} Take 1 [facility] 1 mg-20 mcg 8-12 tablet by ity of (21)/75 mg 00:00: mouth [place] (7) tablet 00 daily. Medical Branch albuterol Yes [id number] 2{puff} Inhale 2 [facility] 90 8-12 Puffs ity of mcg/actuati 00:00: every 6 [place] inhaler 00 (six) Medical hours as Branch needed for Wheezing or Shortness of Breath. LOESTRIN FE Yes [id number] 1{tbl} Take 1 [facility] 1 mg-20 mcg 8-12 tablet by ity of (21)/75 mg 00:00: mouth [place] (7) tablet 00 daily. Medical Branch albuterol Yes [id number] 2{puff} Inhale 2 [facility] 90 8-12 Puffs ity of mcg/actuati 00:00: every 6 [place] on inhaler 00 (six) Medical hours as Branch needed for Wheezing or Shortness of Breath. albuterol Yes [id number] 2{puff} Inhale 2 [facility] 90 8-12 Puffs ity of mcg/actuati 00:00: every 6 [place] on inhaler 00 (six) Medical hours as Branch needed for Wheezing or Shortness of Breath. albuterol Yes [id number] 2{puff} Inhale 2 [facility] 90 8-12 Puffs ity of mcg/actuati 00:00: every 6 [place] on inhaler 00 (six) Medical hours as Branch needed for Wheezing or Shortness of Breath. albuterol Yes [id number] 2{puff} Inhale 2 [facility] 90 8-12 Puffs ity of mcg/actuati 00:00: every 6 [place] on inhaler 00 (six) Medical hours as Branch needed for Wheezing or Shortness of Breath. albuterol Yes [id number] 2{puff} Inhale 2 [facility] 90 8-12 Puffs ity of mcg/actuati 00:00: every 6 [place] on inhaler 00 (six) Medical hours as Branch needed for Wheezing or Shortness of Breath. albuterol Yes [id number] 2{puff} Inhale 2 [facility] 90 8-12 Puffs ity of mcg/actuati 00:00: every 6 [place] on inhaler 00 (six) Medical hours as Branch needed for Wheezing or Shortness of Breath. albuterol Yes [id number] 2{puff} Inhale 2 [facility] 90 8-12 Puffs ity of mcg/actuati 00:00: every 6 [place] on inhaler 00 (six) Medical hours as Branch needed for Wheezing or Shortness of Breath. albuterol Yes [id number] 2{puff} Inhale 2 [facility] 90 8-12 Puffs ity of mcg/actuati 00:00: every 6 [place] on inhaler 00 (six) Medical hours as Branch needed for Wheezing or Shortness of Breath. albuterol Yes [id number] 2{puff} Inhale 2 [facility] 90 8-12 Puffs ity of mcg/actuati 00:00: every 6 [place] on inhaler 00 (six) Medical hours as Branch needed for Wheezing or Shortness of Breath. albuterol Yes [id number] 2{puff} Inhale 2 [facility] 90 8-12 Puffs ity of mcg/actuati 00:00: every 6 [place] on inhaler 00 (six) Medical hours as Branch needed for Wheezing or Shortness of Breath. albuterol Yes [id number] 2{puff} Inhale 2 [facility] 90 8-12 Puffs ity of mcg/actuati 00:00: every 6 [place] on inhaler 00 (six) Medical hours as Branch needed for Wheezing or Shortness of Breath. albuterol Yes [id number] 2{puff} Inhale 2 [facility] 90 8-12 Puffs ity of mcg/actuati 00:00: every 6 [place] on inhaler 00 (six) Medical hours as Branch needed for Wheezing or Shortness of Breath. albuterol Yes [id number] 2{puff} Inhale 2 [facility] 90 8-12 Puffs ity of mcg/actuati 00:00: every 6 [place] on inhaler 00 (six) Medical hours as Branch needed for Wheezing or Shortness of Breath. albuterol Yes [id number] 2{puff} Inhale 2 [facility] 90 8-12 Puffs ity of mcg/actuati 00:00: every 6 [place] on inhaler 00 (six) Medical hours as Branch needed for Wheezing or Shortness of Breath. albuterol Yes [id number] 2{puff} Inhale 2 [facility] 90 8-12 Puffs ity of mcg/actuati 00:00: every 6 [place] on inhaler 00 (six) Medical hours as Branch needed for Wheezing or Shortness of Breath. albuterol Yes [id number] 2{puff} Inhale 2 [facility] 90 8-12 Puffs ity of mcg/actuati 00:00: every 6 [place] on inhaler 00 (six) Medical hours as Branch needed for Wheezing or Shortness of Breath. albuterol Yes [id number] 2{puff} Inhale 2 [facility] 90 8-12 Puffs ity of mcg/actuati 00:00: every 6 [place] on inhaler 00 (six) Medical hours as Branch needed for Wheezing or Shortness of Breath. albuterol Yes [id number] 2{puff} Inhale 2 [facility] 90 8-12 Puffs ity of mcg/actuati 00:00: every 6 [place] on inhaler 00 (six) Medical hours as Branch needed for Wheezing or Shortness of Breath. albuterol Yes [id number] 2{puff} Inhale 2 [facility] 90 8-12 Puffs ity of mcg/actuati 00:00: every 6 [place] on inhaler 00 (six) Medical hours as Branch needed for Wheezing or Shortness of Breath. PARoxetine Yes [id number] 20mg Take 1 U nivers 20 mg 8-12 tablet by ity of tablet 00:00: mouth 00 daily. Medical Branch albuterol Yes [id number] 2{puff} Inhale 2 [facility] 90 8-12 Puffs ity of mcg/actuati 00:00: every 6 [place] on inhaler 00 (six) Medical hours as Branch needed for Wheezing or Shortness of Breath. albuterol Yes [id number] 2{puff} Inhale 2 [facility] 90 8-12 Puffs ity of mcg/actuati 00:00: every 6 [place] on inhaler 00 (six) Medical hours as Branch needed for Wheezing or Shortness of Breath. albuterol Yes [id number] 2{puff} Inhale 2 [facility] 90 8-12 Puffs ity of mcg/actuati 00:00: every 6 [place] on inhaler 00 (six) Medical hours as Branch needed for Wheezing or Shortness of Breath. albuterol Yes [id number] 2{puff} Inhale 2 [facility] 90 8-12 Puffs ity of mcg/actuati 00:00: every 6 [place] on inhaler 00 (six) Medical hours as Branch needed for Wheezing or Shortness of Breath. albuterol Yes [id number] 2{puff} Inhale 2 [facility] 90 8-12 Puffs ity of mcg/actuati 00:00: every 6 [place] on inhaler 00 (six) Medical hours as Branch needed for Wheezing or Shortness of Breath. LOESTRIN FE Yes [id number] 1{tbl} Take 1 [facility] 1 mg-20 mcg 8-12 tablet by ity of (21)/75 mg 00:00: mouth [place] (7) tablet 00 daily. Medical Branch PARoxetine Yes [id number] 20mg Take 1 U nivers 20 mg 8-12 tablet by ity of tablet 00:00: mouth [place] 00 daily. Medical Branch albuterol Yes [id number] 2{puff} Inhale 2 [facility] 90 8-12 Puffs ity of mcg/actuati 00:00: every 6 [place] on inhaler 00 (six) Medical hours as Branch needed for Wheezing or Shortness of Breath. LOESTRIN FE Yes [id number] 1{tbl} Take 1 [facility] 1 mg-20 mcg 8-12 tablet by ity of (21)/75 mg 00:00: mouth [place] (7) tablet 00 daily. Medical Branch albuterol 2021- No [id number] 2{puff} Inhale 2 [facility] 90 8-12 08-15 Puffs ity of mcg/actuati 00:00: 00:00 every 6 [place] on inhaler 00 :00 (six) Medical hours as Branch needed for Wheezing or Shortness of Breath. LOESTRIN FE 2021- No [id number] 1{tbl} Take 1 [facility] 1 mg-20 mcg 8-12 04-05 tablet by it y of (21)/75 mg 00:00: 00:00 mouth [place] (7) tablet 00 :00 daily. Medical Branch PARoxetine 2020- No [id number] 20mg Take 1 [facility] 20 mg 8-12 11-15 tablet by ity of tablet 00:00: 00:00 mouth [place] 00 :00 daily. [facility] Branch LOESTRIN FE Yes 1{tbl} Take 1 [place] 1 mg-20 mcg 5-03 tablet by ity of (21)/75 mg 00:00: mouth [place] (7) tablet 00 daily. [facility] Branch LOESTRIN FE Yes 1{tbl} Take 1 [facility] [place] 1 mg-20 mcg 5-03 tablet by ity of (21)/75 mg 00:00: mouth [place] (7) tablet 00 daily. [facility] LOESTRIN FE Yes 1{tbl} Take 1 [facility] [place] 1 mg-20 mcg 5-03 tablet by ity of (21)/75 mg 00:00: mouth [place] (7) tablet 00 daily. [facility] LOESTRIN FE No 1{tbl} Take 1 U nivers 1 mg-20 mcg 5-03 08-12 tablet by it y of (21)/75 mg 00:00: 00:00 mouth [place] (7) tablet 00 :00 daily. [facility] LOESTRIN FE 2020- No 1{tbl} Take 1 U nivers 1 mg-20 mcg 5-03 08-12 tablet by it y of (21)/75 mg 00:00: 00:00 mouth [place] (7) tablet 00 :00 daily. Medical Branch lidocaine No 1{patch 1 Patch, Univers (LIDODERM) 02-21 } Topical, ity of 5 % (700 07:00: 18:59 Administer [place] mg/patch) 00 :00 over 12 Medical patch 1 Hours, Branch Patch ONCE, 1 dose, Maryan 02/21/21 at 0200, Routine hydrocortis 2020- No Topical [place] one 2.5 % 02-21 (Apply To ity of cream 06:13: 06:14 Affected [place] 00 :00 Areas), Medical ONCE, 1 Branch dose, Maryan 02/21/21 at 0115, Routine ibuprofen 2020- No 800mg 800 mg, Uni vers (IBU) 4-08 04-08 Oral, ity of tablet 800 05:15: 04:16 ONCE, 1 [place] as mg 00 :00 dose, Maryan Medical 02/21/21 at Branch 0015, CHERYL HYDROcodone 2020- No 1{tbl} 1 tablet, [facility] -acetaminop -08 04-08 Oral, ONCE i ty of hen (NORCO) 05:15: 04:16 NOW, 1 [place] as 10-325 mg 00 :00 dose, Maryan Medic al tablet 1 02/21/21 at [place] tablet 0015, Routine lidocaine Yes [id number] 1{patch Apply 1 [facility] % (700 4-08 } Patch to ity of mg/patch) 00:00: area(s) [place] patch 00 every 24 Medical ([facility] Branch ur) hours as needed for Localized pain. lidocaine Yes [id number] 1{patch Apply 1 [facility] % (700 4-08 } Patch to ity of mg/patch) 00:00: area(s) [place] patch 00 every 24 Medical ([facility] Branch ur) hours as needed for Localized pain. lidocaine Yes [id number] 1{patch Apply 1 [facility] % (700 4-08 } Patch to ity of mg/patch) 00:00: area(s) [place] patch 00 every 24 Medical ([facility] Branch ur) hours as needed for Localized pain. lidocaine Yes [id number] 1{patch Apply 1 [facility] % (700 4-08 } Patch to ity of mg/patch) 00:00: area(s) [place] patch 00 every 24 Medical ([facility]- Branch ur) hours as needed for Localized pain. lidocaine Yes [id number] 1{patch Apply 1 [facility] % (700 4-08 } Patch to ity of mg/patch) 00:00: area(s) [place] patch 00 every 24 Medical ([facility] ur) hours as needed for Localized pain. lidocaine Yes [id number] 1{patch Apply 1 [facility] % (700 4-08 } Patch to ity of mg/patch) 00:00: area(s) [place] patch 00 every 24 Medical ([facility] Branch ur) hours as needed for Localized pain. lidocaine Yes [id number] 1{patch Apply 1 [facility] % (700 4-08 } Patch to ity of mg/patch) 00:00: area(s) [place] patch 00 every 24 Medical (twenty-[facility] Branch ur) hours as needed for Localized pain. lidocaine Yes [id number] 1{patch Apply 1 [facility] % (700 4-08 } Patch to ity of mg/patch) 00:00: area(s) [place] patch 00 every 24 Medical (twenty-fo Branch ur) hours as needed for Localized pain. lidocaine Yes [id number] 1{patch Apply 1 [facility] % (700 4-08 } Patch to ity of mg/patch) 00:00: area(s) [place] patch 00 every 24 Medical (twenty-fo Branch ur) hours as needed for Localized pain. lidocaine Yes [id number] 1{patch Apply 1 [facility] % (700 4-08 } Patch to ity of mg/patch) 00:00: area(s) [place] patch 00 every 24 Medical (twenty-fo Branch ur) hours as needed for Localized pain. lidocaine Yes [id number] 1{patch Apply 1 [facility] % (700 4-08 } Patch to ity of mg/patch) 00:00: area(s) [place] patch 00 every 24 Medical (twenty-fo Branch ur) hours as needed for Localized pain. lidocaine Yes [id number] 1{patch Apply 1 [facility] % (700 4-08 } Patch to ity of mg/patch) 00:00: area(s) [place] patch 00 every 24 Medical (twenty-[facility] Branch ur) hours as needed for Localized pain. lidocaine Yes [id number] 1{patch Apply 1 [facility] % (700 4-08 } Patch to ity of mg/patch) 00:00: area(s) [place] patch 00 every 24 Medical (twenty-fo Branch ur) hours as needed for Localized pain. lidocaine Yes [id number] 1{patch Apply 1 [facility] % (700 4-08 } Patch to ity of mg/patch) 00:00: area(s) [place] patch 00 every 24 Medical (twenty-fo Branch ur) hours as needed for Localized pain. lidocaine Yes [id number] 1{patch Apply 1 [facility] % (700 4-08 } Patch to ity of mg/patch) 00:00: area(s) [place] patch 00 every 24 Medical (twenty-fo Branch ur) hours as needed for Localized pain. lidocaine 5 Yes [id number] 1{patch Apply 1 [facility] % (700 4-08 } Patch to ity of mg/patch) 00:00: area(s) [place] patch 00 every 24 Medical (twenty-fo Branch ur) hours as needed for Localized pain. lidocaine 5 Yes [id number] 1{patch Apply 1 [facility] % (700 4-08 } Patch to ity of mg/patch) 00:00: area(s) [place] patch 00 every 24 Medical (twenty-fo Branch ur) hours as needed for Localized pain. lidocaine 5 Yes [id number] 1{patch Apply 1 [facility] % (700 4-08 } Patch to ity of mg/patch) 00:00: area(s) [place] patch 00 every 24 Medical (twenty-fo Branch ur) hours as needed for Localized pain. lidocaine 5 2021- No [id number] 1{patch Apply 1 [facility] % (700 4-08 04-05 } Patch to ity of mg/patch) 00:00: 00:00 area(s[place] patch 00 :00 every 24 Medical (twenty-fo Branch ur) hours as needed for Localized pain. ibuprofen 2020- No [id number] 800mg Take 1 [facility] 800 mg 02-21-16 tablet by ity of tablet 00:00: 04:59 mouth 3 [place] 00 :00 (three) Medical times Branch daily with meals for 7 days. traMADoL 50 2020- No [id number] 50mg Take 1 Uni vers mg tablet 02-21-16 tablet by ity of 00:00: 04:59 mouth [place] 00 :00 every 6 Medical (six) Branch hours as needed for Pain (scale 7-10) for up to 7 days. Indication s: acute pain cephALEXin 2020- No [id number] 250mg Take 1 [facility] (KEFLEX) 02-21 04-12 capsule by ity of 250 mg 00:00: 04:59 mouth 4 [place] capsule 00 :00 (four) Medical times Branch daily for 3 days. Naproxen Naproxen 2021-0 No BID Naproxen 500 MG 500 MG 4-07 500 MG 00:00: 00 Naproxen Naproxen 2020-0 No BID Naproxen 500 MG 500 MG 4-07 500 MG 00:00: 00 Naproxen Naproxen 2020-0 No BID Naproxen 500 MG 500 MG 4-07 500 MG 00:00: 00 Naproxen Naproxen 2020-0 No BID Naproxen 500 MG 500 MG 4-07 500 MG 00:00: 00 Naproxen Naproxen 2020-0 No BID Naproxen 500 MG 500 MG 4- 500 MG 00:00: 00 Naproxen Naproxen 2020-0 No BID Naproxen 500 MG 500 MG 4- 500 MG 00:00: 00 Naproxen Naproxen 2020-0 No BID Naproxen 500 MG 500 MG 4- 500 MG 00:00: 00 Naproxen Naproxen 2020-0 No BID Naproxen 500 MG 500 MG 4- 500 MG 00:00: 00 Naproxen Naproxen 2020-0 No BID Naproxen 500 MG 500 MG 4- 500 MG 00:00: 00 Naproxen Naproxen 2020-0 No BID Naproxen 500 MG 500 MG 4- 500 MG 00:00: 00 Naproxen Naproxen 2020-0 No BID 500 MG 500 MG 07 00:00: 00 Naproxen Naproxen 2020-0 No BID Naproxen 500 MG 500 MG 4-07 500 MG 00:00: 00 Naproxen Naproxen 2020-0 No BID Naproxen 500 MG 500 MG 4- 500 MG 00:00: 00 Naproxen Naproxen 2020-0 No BID Naproxen 500 MG 500 MG 4-07 500 MG 00:00: 00 Naproxen Naproxen 2020-0 No BID Naproxen 500 MG 500 MG 4-07 500 MG 00:00: 00 Naproxen Naproxen 2020-0 No BID Naproxen 500 MG 500 MG 4-07 500 MG 00:00: 00 Naproxen Naproxen 2020-0 No BID Naproxen 500 MG 500 MG 4-07 500 MG 00:00: 00 LOESTRIN FE 2020-0 Yes [id number] 1{tbl} Take 1 [facility] 1 mg-20 mcg 2-09 tablet by ity of (21)/75 mg 00:00: mouth [place] (7) tablet 00 daily. [facility] MAXWELL HODGES 2020- No [id number] 1{tbl} Take 1 [facility] 1 mg-20 mcg 2-09 04-07 tablet by it y of (21)/75 mg 00:00: 00:00 mouth [place] (7) tablet 00 :00 daily. [facility] montelukast Yes 10mg Take 10 mg [facility] 10 mg 2-02 by mouth ity of tablet 00:00: daily. [facility] montelukast Yes 10mg Take 10 mg [facility] 10 mg 2-02 by mouth ity of tablet 00:00: daily. [place] [facility] montelukast Yes 10mg Take 10 mg [facility] 10 mg 2-02 by mouth ity of tablet 00:00: daily. [facility] montelukast Yes 10mg Take 10 mg [facility] 10 mg 2-02 by mouth ity of tablet 00:00: daily. [facility] montelukast Yes 10mg Take 10 mg [facility] 10 mg 2-02 by mouth ity of tablet 00:00: daily. [facility] montelukast Yes 10mg Take 10 mg [facility] 10 mg 2-02 by mouth ity of tablet 00:00: daily. [facility] montelukast Yes 10mg Take 10 mg [facility] 10 mg 2-02 by mouth ity of tablet 00:00: daily. [facility] montelukast Yes 10mg Take 10 mg [facility] 10 mg 2-02 by mouth ity of tablet 00:00: daily. [facility] montelukast Yes 10mg Take 10 mg [facility] 10 mg 2-02 by mouth ity of tablet 00:00: daily. [facility] montelukast Yes 10mg Take 10 mg [facility] 10 mg 2-02 by mouth ity of tablet 00:00: daily. [place] [facility] montelukast Yes 10mg Take 10 mg [facility] 10 mg 2-02 by mouth ity of tablet 00:00: daily. [facility] montelukast 0 Yes 10mg Take 10 mg [facility] 10 mg 2-02 by mouth ity of tablet 00:00: daily. [facility] montelukast 0 Yes 10mg Take 10 mg [facility] 10 mg 2-02 by mouth ity of tablet 00:00: daily. [facility] montelukast 0 Yes 10mg Take 10 mg [facility] 10 mg 2-02 by mouth ity of tablet 00:00: daily. [facility] montelukast 0 Yes 10mg Take 10 mg [facility] 10 mg 2-02 by mouth ity of tablet 00:00: daily. [place] [facility] montelukast 0 Yes 10mg Take 10 mg [facility] 10 mg 2-02 by mouth ity of tablet 00:00: daily. [facility] montelukast 0 Yes 10mg Take 10 mg [facility] 10 mg 2-02 by mouth ity of tablet 00:00: daily. [facility] montelukast 0 Yes 10mg Take 10 mg [facility] 10 mg 2-02 by mouth ity of tablet 00:00: daily. [facility] montelukast 0 Yes 10mg Take 10 mg [facility] 10 mg 2-02 by mouth ity of tablet 00:00: daily. [facility] montelukast 0 Yes 10mg Take 10 mg [facility] 10 mg 2-02 by mouth ity of tablet 00:00: daily. [facility] montelukast 0 Yes 10mg Take 10 mg [facility] 10 mg 2-02 by mouth ity of tablet 00:00: daily. [facility] montelukast 0 Yes 10mg Take 10 mg [facility] 10 mg 2-02 by mouth ity of tablet 00:00: daily. [facility] montelukast 0 Yes 10mg Take 10 mg [facility] 10 mg 2-02 by mouth ity of tablet 00:00: daily. [facility] montelukast 0 Yes 10mg Take 10 mg [facility] 10 mg 2-02 by mouth ity of tablet 00:00: daily. [place] [facility] montelukast 0 Yes 10mg Take 10 mg [facility] 10 mg 2-02 by mouth ity of tablet 00:00: daily. [facility] montelukast 0 Yes 10mg Take 10 mg [facility] 10 mg 2-02 by mouth ity of tablet 00:00: daily. [facility] montelukast 0 Yes 10mg Take 10 mg [facility] 10 mg 2-02 by mouth ity of tablet 00:00: daily. [facility] montelukast 0 Yes 10mg Take 10 mg [facility] 10 mg 2-02 by mouth ity of tablet 00:00: daily. [facility] montelukast 0 Yes 10mg Take 10 mg [facility] 10 mg 2-02 by mouth ity of tablet 00:00: daily. [facility] montelukast 0 Yes 10mg Take 10 mg [facility] 10 mg 2-02 by mouth ity of tablet 00:00: daily. [facility] montelukast 0 Yes 10mg Take 10 mg [facility] 10 mg 2-02 by mouth ity of tablet 00:00: daily. [facility] montelukast 0 Yes 10mg Take 10 mg [facility] 10 mg 2-02 by mouth ity of tablet 00:00: daily. [facility] montelukast 0 Yes 10mg Take 10 mg [facility] 10 mg 2-02 by mouth ity of tablet 00:00: daily. [facility] montelukast 0 Yes 10mg Take 10 mg [facility] 10 mg 2-02 by mouth ity of tablet 00:00: daily. [facility] montelukast 0 Yes 10mg Take 10 mg [facility] 10 mg 2-02 by mouth ity of tablet 00:00: daily. [facility] montelukast 0 Yes 10mg Take 10 mg [facility] 10 mg 2-02 by mouth ity of tablet 00:00: daily. [facility] montelukast 0 Yes 10mg Take 10 mg [facility] 10 mg 2-02 by mouth ity of tablet 00:00: daily. [facility] montelukast 0 Yes 10mg Take 10 mg [facility] 10 mg 2-02 by mouth ity of tablet 00:00: daily. [place] [facility] montelukast 0 Yes 10mg Take 10 mg [facility] 10 mg 2-02 by mouth ity of tablet 00:00: daily. [facility] montelukast 0 Yes 10mg Take 10 mg [facility] 10 mg 2-02 by mouth ity of tablet 00:00: daily. [facility] montelukast 0 Yes 10mg Take 10 mg [facility] 10 mg 2-02 by mouth ity of tablet 00:00: daily. [facility] montelukast 0 Yes 10mg Take 10 mg [facility] 10 mg 2-02 by mouth ity of tablet 00:00: daily. [facility] montelukast 0 Yes 10mg Take 10 mg [facility] 10 mg 2-02 by mouth ity of tablet 00:00: daily. [place] [facility] montelukast 0 Yes 10mg Take 10 mg [facility] 10 mg 2-02 by mouth ity of tablet 00:00: daily. [facility] montelukast 0 Yes 10mg Take 10 mg [facility] 10 mg 2-02 by mouth ity of tablet 00:00: daily. [facility] montelukast 0 Yes 10mg Take 10 mg [facility] 10 mg 2-02 by mouth ity of tablet 00:00: daily. [facility] montelukast 0 Yes 10mg Take 10 mg [facility] 10 mg 2-02 by mouth ity of tablet 00:00: daily. [facility] montelukast 0 Yes 10mg Take 10 mg [facility] 10 mg 2-02 by mouth ity of tablet 00:00: daily. [place] [facility] montelukast 0 Yes 10mg Take 10 mg [facility] 10 mg 2-02 by mouth ity of tablet 00:00: daily. [facility] montelukast 0 Yes 10mg Take 10 mg [facility] 10 mg 2-02 by mouth ity of tablet 00:00: daily. [place] [facility] montelukast 0 Yes 10mg Take 10 mg [facility] 10 mg 2-02 by mouth ity of tablet 00:00: daily. [place] [facility] montelukast 0 Yes 10mg Take 10 mg [facility] 10 mg 2-02 by mouth ity of tablet 00:00: daily. [place] [facility] montelukast 0 Yes 10mg Take 10 mg [facility] 10 mg 2-02 by mouth ity of tablet 00:00: daily. [facility] montelukast 0 Yes 10mg Take 10 mg [facility] 10 mg 2-02 by mouth ity of tablet 00:00: daily. [facility] montelukast 0 Yes 10mg Take 10 mg [facility] 10 mg 2-02 by mouth ity of tablet 00:00: daily. [facility] montelukast 0 Yes 10mg Take 10 mg [facility] 10 mg 2-02 by mouth ity of tablet 00:00: daily. [facility] montelukast 0 Yes 10mg Take 10 mg [facility] 10 mg 2-02 by mouth ity of tablet 00:00: daily. [place] [facility] montelukast 0 Yes 10mg Take 10 mg [facility] 10 mg 2-02 by mouth ity of tablet 00:00: daily. [place] [facility] montelukast 0 Yes 10mg Take 10 mg [facility] 10 mg 2-02 by mouth ity of tablet 00:00: daily. [place] [facility] montelukast 0 Yes 10mg Take 10 mg [facility] 10 mg 2-02 by mouth ity of tablet 00:00: daily. [place] [facility] montelukast 0 Yes 10mg Take 10 mg [facility] 10 mg 2-02 by mouth ity of tablet 00:00: daily. [place] [facility] montelukast 0 Yes 10mg Take 10 mg [facility] 10 mg 2-02 by mouth ity of tablet 00:00: daily. [place] [facility] montelukast 0 Yes 10mg Take 10 mg [facility] 10 mg 2-02 by mouth ity of tablet 00:00: daily. [facility] montelukast 0 Yes 10mg Take 10 mg [facility] 10 mg 2-02 by mouth ity of tablet 00:00: daily. [place] [facility] montelukast 0 Yes 10mg Take 10 mg [facility] 10 mg 2-02 by mouth ity of tablet 00:00: daily. [place] [facility] montelukast 0 Yes 10mg Take 10 mg [facility] 10 mg 2-02 by mouth ity of tablet 00:00: daily. [place] [facility] montelukast 0 Yes 10mg Take 10 mg [facility] 10 mg 2-02 by mouth ity of tablet 00:00: daily. [facility] montelukast 0 Yes 10mg Take 10 mg [facility] 10 mg 2-02 by mouth ity of tablet 00:00: daily. [facility] montelukast 0 Yes 10mg Take 10 mg [facility] 10 mg 2-02 by mouth ity of tablet 00:00: daily. [facility] montelukast 0 Yes 10mg Take 10 mg [facility] 10 mg 2-02 by mouth ity of tablet 00:00: daily. [facility] montelukast 0 Yes 10mg Take 10 mg [facility] 10 mg 2-02 by mouth ity of tablet 00:00: daily. [facility] montelukast 0 Yes 10mg Take 10 mg [facility] 10 mg 2-02 by mouth ity of tablet 00:00: daily. [facility] montelukast Yes 10mg Take 10 mg [facility] 10 mg 2-02 by mouth ity of tablet 00:00: daily. [facility] montelukast 0 Yes 10mg Take 10 mg [facility] 10 mg 2-02 by mouth ity of tablet 00:00: daily. [facility] montelukast 0 Yes 10mg Take 10 mg [facility] 10 mg 2-02 by mouth ity of tablet 00:00: daily. [facility] montelukast 0 Yes 10mg Take 10 mg [facility] 10 mg 2-02 by mouth ity of tablet 00:00: daily. [facility] medroxyPROG 2019-11 2020- No 150mg Univ ers ESTERone 11-18 ity of (DEPO-PROVE 18:15: 17:11 [place] RA) 00 :00 Medical injection Branch 150 mg medroxyPROG 2019-11 2020- No 150mg 150 mg, U nivers ESTERone 11-18 Intramuscu ity of (DEPO-PROVE 18:15: 17:11 lar, ONCE, [place] RA) 00 :00 1 dose, Medical injection Tue Branch 150 mg 09/18/20 at 1215, Routine Kenalog Kenalog 2019-11 No 40mg Common (Triamcinol (Triamcinol 1-03 S pirit one) one) 00:00: - [facility] 00 [facility] Kenalog Kenalog 2020- No 40mg Common (Triamcinol (Triamcinol 1-03 S pirit one) one) 00:00: - [facility] 00 [facility] Kenalog Kenalog 2020- No 40mg Common (Triamcinol (Triamcinol 1-03 S pirit one) one) 00:00: - [facility] 00 [facility] Kenalog Kenalog 2019- No 40mg Common (Triamcinol (Triamcinol 1-03 S pirit one) one) 00:00: - [facility] 00 [facility] Kenalog Kenalog 2020- No 40mg Common (Triamcinol (Triamcinol 1-03 S pirit one) one) 00:00: - [facility] 00 [facility] Kenroberto Kenalog 2020- No 40mg Common (Triamcinol (Triamcinol 1-03 S pirit one) one) 00:00: - [facility] 00 [facility] Kenroberto Kenalog 2019- No 40mg Common (Triamcinol (Triamcinol 1-03 S pirit one) one) 00:00: - [facility] 00 [facility] Kenroberto Kenalog 2020- No 40mg Common (Triamcinol (Triamcinol 1-03 S pirit one) one) 00:00: - [facility] 00 [facility] Kenroberto Kenalog 2019- No 40mg Common (Triamcinol (Triamcinol 1-03 S pirit one) one) 00:00: - [facility] 00 [facility] Kenroberto Kenalog 2019- No 40mg Common (Triamcinol (Triamcinol 1-03 S pirit one) one) 00:00: - [facility] 00 [facility] medroxyPROG 2019- No 150mg Univ ers ESTERone 06-20 ity of (DEPO-PROVE 22:15: 21:02 [place] RA) 00 :00 Medical injection Branch 150 mg medroxyPROG 2019- No 150mg 150 mg, U nivers ESTERone 06-20 Intramuscu ity of (DEPO-PROVE 22:15: 21:02 lar, ONCE, [place] RA) 00 :00 1 dose, Medical injection 06/20/20 Bran ch 150 mg at 1715, Routine medroxyPROG 2019-0 2020- No 150mg 150 mg, U nivers ESTERone - 05-06 Intramuscu ity of (DEPO-PROVE 15:00: 17:52 lar, ONCE, [place] RA) 00 :00 1 dose, Medical injection Thu03/21/20 Bran ch 150 mg at 1000, Routine 0 2020- No Take by Unive rs 123/iron/fo 5-06 05-06 mouth ity of lic/omeg3s 13:31: 00:[place] (ONE-A-DAY 09 :00 Medical WOMEN'S Branch 1 ORAL) 2019-0 Yes [id number] 1{tbl} Take 1 [facility] vitamin 5-06 tablet by ity of w/FA tablet 00:00: mouth [place] 00 daily. Medical Branch 2019-0 Yes [id number] 1{tbl} Take 1 [facility] vitamin 5-06 tablet by ity of w/FA tablet 00:00: mouth [place] 00 daily. Medical Branch 2019-0 Yes [id number] 1{tbl} Take 1 [facility] vitamin 5-06 tablet by ity of w/FA tablet 00:00: mouth [place] 00 daily. Medical Branch docusate 2019-0 Yes [id number] 240mg Take 1 U nivers calcium 240 5-06 capsule by it y of mg capsule 00:00: mouth [place] 00 daily as Medical needed for Branch Constipati on. ferrous 2020-0 Yes [id number] 325mg Take 1 Un [place] sulfate 325 5-06 tablet by ity of mg (65 mg 00:00: mouth 2 [place] iron) 00 (two) Medical tablet times Branch daily. ibuprofen 2020-0 Yes [id number] 600mg Take 1 [facility] 600 mg 5-06 tablet by ity of tablet 00:00: mouth [place] 00 every 6 Medical (six) Branch hours as needed (Pain). Take with food or milk. 2019-0 Yes [id number] 1{tbl} Take 1 [facility] vitamin 5-06 tablet by ity of w/FA tablet 00:00: mouth [place] 00 daily. Medical Branch docusate 2019-0 Yes [id number] 240mg Take 1 U nivers calcium 240 5-06 capsule by it y of mg capsule 00:00: mouth [place] 00 daily as Medical needed for Branch Constipati on. ferrous 2020-0 Yes [id number] 325mg Take 1 Un [place] sulfate 325 5-06 tablet by ity of mg (65 mg 00:00: mouth 2 [place] iron) 00 (two) Medical tablet times Branch daily. ibuprofen 2020-0 Yes [id number] 600mg Take 1 [facility] 600 mg 5-06 tablet by ity of tablet 00:00: mouth [place] 00 every 6 Medical (six) Branch hours as needed (Pain). Take with food or milk. 2020-0 Yes [id number] 1{tbl} Take 1 [facility] vitamin 5-06 tablet by ity of w/FA tablet 00:00: mouth [place] 00 daily. Medical Branch docusate 2020-0 Yes [id number] 240mg Take 1 U nivers calcium 240 5-06 capsule by it y of mg capsule 00:00: mouth [place] 00 daily as Medical needed for Branch Constipati on. ferrous 2020-0 Yes [id number] 325mg Take 1 Un [place] sulfate 325 5-06 tablet by ity of mg (65 mg 00:00: mouth 2 [place] iron) 00 (two) Medical tablet times Branch daily. ibuprofen 2020-0 Yes [id number] 600mg Take 1 [facility] 600 mg 5-06 tablet by ity of tablet 00:00: mouth [place] 00 every 6 Medical (six) Branch hours as needed (Pain). Take with food or milk. 2019-0 Yes [id number] 1{tbl} Take 1 [facility] vitamin 5-06 tablet by ity of w/FA tablet 00:00: mouth [place] 00 daily. Medical Branch 2020-0 Yes [id number] 1{tbl} Take 1 [facility] vitamin 5-06 tablet by ity of w/FA tablet 00:00: mouth [place] 00 daily. Medical Branch 2020-0 Yes [id number] 1{tbl} Take 1 [facility] vitamin 5-06 tablet by ity of w/FA tablet 00:00: mouth [place] 00 daily. Medical Branch 2020-0 Yes [id number] 1{tbl} Take 1 [facility] vitamin 5-06 tablet by ity of w/FA tablet 00:00: mouth [place] 00 daily. Medical Branch 2020-0 Yes [id number] 1{tbl} Take 1 [facility] vitamin 5-06 tablet by ity of w/FA tablet 00:00: mouth [place] 00 daily. Medical Branch 2020-0 Yes [id number] 1{tbl} Take 1 [facility] vitamin 5-06 tablet by ity of w/FA tablet 00:00: mouth [place] 00 daily. Medical Branch 2020-0 Yes [id number] 1{tbl} Take 1 [facility] vitamin 5-06 tablet by ity of w/FA tablet 00:00: mouth [place] 00 daily. Medical Branch 2020-0 Yes [id number] 1{tbl} Take 1 [facility] vitamin 5-06 tablet by ity of w/FA tablet 00:00: mouth [place] 00 daily. Medical Branch 2020-0 Yes [id number] 1{tbl} Take 1 [facility] vitamin 5-06 tablet by ity of w/FA tablet 00:00: mouth [place] 00 daily. Medical Branch 2020-0 Yes [id number] 1{tbl} Take 1 [facility] vitamin 5-06 tablet by ity of w/FA tablet 00:00: mouth [place] 00 daily. Medical Branch 2020-0 Yes [id number] 1{tbl} Take 1 [facility] vitamin 5-06 tablet by ity of w/FA tablet 00:00: mouth [place] 00 daily. Medical Branch 2020-0 Yes [id number] 1{tbl} Take 1 [facility] vitamin 5-06 tablet by ity of w/FA tablet 00:00: mouth [place] 00 daily. Medical Branch 2020-0 Yes [id number] 1{tbl} Take 1 [facility] vitamin 5-06 tablet by ity of w/FA tablet 00:00: mouth [place] 00 daily. Medical Branch 2020-0 Yes [id number] 1{tbl} Take 1 [facility] vitamin 5-06 tablet by ity of w/FA tablet 00:00: mouth [place] 00 daily. Medical Branch 2020-0 Yes [id number] 1{tbl} Take 1 [facility] vitamin 5-06 tablet by ity of w/FA tablet 00:00: mouth [place] 00 daily. Medical Branch 2020-0 Yes [id number] 1{tbl} Take 1 [facility] vitamin 5-06 tablet by ity of w/FA tablet 00:00: mouth [place] 00 daily. Medical Branch 2020-0 Yes [id number] 1{tbl} Take 1 [facility] vitamin 5-06 tablet by ity of w/FA tablet 00:00: mouth [place] 00 daily. Medical Branch 2020-0 Yes [id number] 1{tbl} Take 1 [facility] vitamin 5-06 tablet by ity of w/FA tablet 00:00: mouth [place] 00 daily. Medical Branch 2020-0 Yes [id number] 1{tbl} Take 1 [facility] vitamin 5-06 tablet by ity of w/FA tablet 00:00: mouth [place] 00 daily. Medical [place] 2020-0 Yes [id number] 1{tbl} Take 1 [facility] vitamin 5-06 tablet by ity of w/FA tablet 00:00: mouth [place] 00 daily. Medical Branch 2020-0 Yes [id number] 1{tbl} Take 1 [facility] vitamin 5-06 tablet by ity of w/FA tablet 00:00: mouth [place] 00 daily. Medical [place] 2020-0 Yes [id number] 1{tbl} Take 1 [facility] vitamin 5-06 tablet by ity of w/FA tablet 00:00: mouth [place] 00 daily. Medical [place] 2020-0 Yes [id number] 1{tbl} Take 1 [facility] vitamin 5-06 tablet by ity of w/FA tablet 00:00: mouth [place] 00 daily. Medical [place] 2020-0 Yes [id number] 1{tbl} Take 1 [facility] vitamin 5-06 tablet by ity of w/FA tablet 00:00: mouth [place] 00 daily. Medical [place] 2020-0 Yes [id number] 1{tbl} Take 1 [facility] vitamin 5-06 tablet by ity of w/FA tablet 00:00: mouth [place] 00 daily. Medical [place] 2020-0 Yes [id number] 1{tbl} Take 1 [facility] vitamin 5-06 tablet by ity of w/FA tablet 00:00: mouth [place] 00 daily. Medical Branch 2020-0 Yes [id number] 1{tbl} Take 1 [facility] vitamin 5-06 tablet by ity of w/FA tablet 00:00: mouth [place] 00 daily. Medical [place] 2020-0 Yes [id number] 1{tbl} Take 1 [facility] vitamin 5-06 tablet by ity of w/FA tablet 00:00: mouth [place] 00 daily. [facility] 2020-0 Yes [id number] 1{tbl} Take 1 [facility] vitamin 5-06 tablet by ity of w/FA tablet 00:00: mouth [place] 00 daily. Medical [place] 2020-0 Yes [id number] 1{tbl} Take 1 [facility] vitamin 5-06 tablet by ity of w/FA tablet 00:00: mouth [place] 00 daily. Medical Branch 2020-0 Yes [id number] 1{tbl} Take 1 [facility] vitamin 5-06 tablet by ity of w/FA tablet 00:00: mouth [place] 00 daily. Medical [place] 2020-0 Yes [id number] 1{tbl} Take 1 [facility] vitamin 5-06 tablet by ity of w/FA tablet 00:00: mouth [place] 00 daily. Medical Branch 2020-0 Yes [id number] 1{tbl} Take 1 [facility] vitamin 5-06 tablet by ity of w/FA tablet 00:00: mouth [place] 00 daily. Medical [place] 2020-0 Yes [id number] 1{tbl} Take 1 [facility] vitamin 5-06 tablet by ity of w/FA tablet 00:00: mouth [place] 00 daily. Medical [place] 2020-0 Yes [id number] 1{tbl} Take 1 [facility] vitamin 5-06 tablet by ity of w/FA tablet 00:00: mouth [place] 00 daily. Medical Branch 2020-0 Yes [id number] 1{tbl} Take 1 [facility] vitamin 5-06 tablet by ity of w/FA tablet 00:00: mouth [place] 00 daily. Medical Branch 2020-0 Yes [id number] 1{tbl} Take 1 [facility] vitamin 5-06 tablet by ity of w/FA tablet 00:00: mouth [place] 00 daily. Medical [place] 2020-0 Yes [id number] 1{tbl} Take 1 [facility] vitamin 5-06 tablet by ity of w/FA tablet 00:00: mouth [place] 00 daily. Medical Branch 2020-0 Yes [id number] 1{tbl} Take 1 [facility] vitamin 5-06 tablet by ity of w/FA tablet 00:00: mouth [place] 00 daily. Medical [place] 2020-0 Yes [id number] 1{tbl} Take 1 [facility] vitamin 5-06 tablet by ity of w/FA tablet 00:00: mouth [place] 00 daily. [facility] 2020-0 Yes [id number] 1{tbl} Take 1 [facility] vitamin 5-06 tablet by ity of w/FA tablet 00:00: mouth [place] 00 daily. Medical [place] 2020-0 Yes [id number] 1{tbl} Take 1 [facility] vitamin 5-06 tablet by ity of w/FA tablet 00:00: mouth [place] 00 daily. Medical Branch 2020-0 Yes [id number] 1{tbl} Take 1 [facility] vitamin 5-06 tablet by ity of w/FA tablet 00:00: mouth [place] 00 daily. Medical Branch 2020-0 Yes [id number] 1{tbl} Take 1 [facility] vitamin 5-06 tablet by ity of w/FA tablet 00:00: mouth [place] 00 daily. Medical Branch 2020-0 Yes [id number] 1{tbl} Take 1 [facility] vitamin 5-06 tablet by ity of w/FA tablet 00:00: mouth [place] 00 daily. Medical Branch 2020-0 Yes [id number] 1{tbl} Take 1 [facility] vitamin 5-06 tablet by ity of w/FA tablet 00:00: mouth [place] 00 daily. Medical [place] 2020-0 Yes [id number] 1{tbl} Take 1 [facility] vitamin 5-06 tablet by ity of w/FA tablet 00:00: mouth [place] 00 daily. Medical Branch 2020-0 Yes [id number] 1{tbl} Take 1 [facility] vitamin 5-06 tablet by ity of w/FA tablet 00:00: mouth [place] 00 daily. Medical Branch 2020-0 Yes [id number] 1{tbl} Take 1 [facility] vitamin 5-06 tablet by ity of w/FA tablet 00:00: mouth [place] 00 daily. Medical [place] 2020-0 Yes [id number] 1{tbl} Take 1 [facility] vitamin 5-06 tablet by ity of w/FA tablet 00:00: mouth [place] 00 daily. Medical [place] 2020-0 Yes [id number] 1{tbl} Take 1 [facility] vitamin 5-06 tablet by ity of w/FA tablet 00:00: mouth [place] 00 daily. Medical [place] 2020-0 Yes [id number] 1{tbl} Take 1 [facility] vitamin 5-06 tablet by ity of w/FA tablet 00:00: mouth [place] 00 daily. [facility] 2020-0 Yes [id number] 1{tbl} Take 1 [facility] vitamin 5-06 tablet by ity of w/FA tablet 00:00: mouth [place] 00 daily. [facility] 2020-0 Yes [id number] 1{tbl} Take 1 [facility] vitamin 5-06 tablet by ity of w/FA tablet 00:00: mouth [place] 00 daily. Medical [place] 2020-0 Yes [id number] 1{tbl} Take 1 [facility] vitamin 5-06 tablet by ity of w/FA tablet 00:00: mouth [place] 00 daily. Medical Branch 2020-0 Yes [id number] 1{tbl} Take 1 [facility] vitamin 5-06 tablet by ity of w/FA tablet 00:00: mouth [place] 00 daily. Medical [place] 2020-0 Yes [id number] 1{tbl} Take 1 [facility] vitamin 5-06 tablet by ity of w/FA tablet 00:00: mouth [place] 00 daily. Medical [place] 2020-0 Yes [id number] 1{tbl} Take 1 [facility] vitamin 5-06 tablet by ity of w/FA tablet 00:00: mouth [place] 00 daily. [facility] 2020-0 Yes [id number] 1{tbl} Take 1 [facility] vitamin 5-06 tablet by ity of w/FA tablet 00:00: mouth [place] 00 daily. Medical [place] 2020-0 Yes [id number] 1{tbl} Take 1 [facility] vitamin 5-06 tablet by ity of w/FA tablet 00:00: mouth [place] 00 daily. Medical [place] 2020-0 Yes [id number] 1{tbl} Take 1 [facility] vitamin 5-06 tablet by ity of w/FA tablet 00:00: mouth [place] 00 daily. Medical [place] 2020-0 Yes [id number] 1{tbl} Take 1 [facility] vitamin 5-06 tablet by ity of w/FA tablet 00:00: mouth [place] 00 daily. Medical [place] 2020-0 Yes [id number] 1{tbl} Take 1 [facility] vitamin 5-06 tablet by ity of w/FA tablet 00:00: mouth [place] 00 daily. Medical [place] 2020-0 Yes [id number] 1{tbl} Take 1 [facility] vitamin 5-06 tablet by ity of w/FA tablet 00:00: mouth [place] 00 daily. [facility] 2020-0 Yes [id number] 1{tbl} Take 1 [facility] vitamin 5-06 tablet by ity of w/FA tablet 00:00: mouth [place] 00 daily. [facility] 2020-0 2021- No [id number] 1{tbl} Take 1 [facility] vitamin 5-06 10-25 tablet by ity of w/FA tablet 00:00: 00:00 [place] 00 :00 daily. Medical [facility] docusate 2020- No [id number] 240mg Take 1 [facility] calcium 240 03-21 capsule by i ty of mg capsule 00:00: 00:00 mouth once [place] 00 :00 daily as Medical needed for Branch Constipati on. ferrous 2020- No [id number] 325mg Take 1 U nivers sulfate 325 03-21 tablet by it y of mg (65 mg 00:00: 00:00 mouth 2 [place] iron) 00 :00 (two) Medical tablet times Branch daily. ibuprofen 2019- No [id number] 600mg Take 1 [facility] 600 mg 03-21 tablet by ity of tablet 00:00: 00:00 mouth [place] 00 :00 every 6 Medical (six) Branch hours as needed (Pain). Take with food or milk. rho(D) Yes 300ug 300 mcg, Univer s immune 5-05 Intramuscu ity of globulin 15:16: lar, ONCE, [place] (RHOGAM) 11 For 1 Medical syringe 300 dose, Branch mcg Conditiona l, Routine ondansetron 2019- Yes 4mg 4 mg, Slow Univers (ZOFRAN 5-05 IV Push, ity of (PF)) 15:16: Q8HPRN, [place] injection 4 06 Starting Medi kailash mg 03/20/20 Branch at 1016, Until Discontinu ed, Routine, Nausea and Vomiting (N/V) simethicone 2019-0 Yes 160mg 160 mg, Un [place] (GAS RELIEF 5-05 Oral, ity of (SIMETHICON 15:16: PC+HSPRN, [place] E)) 06 Starting Medical chewable Tue 5//20 Branc h tablet 160 at 1016, mg Until Discontinu ed, Routine, Gas magnesium 2020-0 Yes 30mL 30 mL, Univer s hydroxide 5-05 Oral, ity of (MILK OF 15:16: QDAILYPRN, [place] MAGNESIA) 06 Starting Medica l 400 mg/5 mL Tue 5//20 Br anch suspension at 1016, 30 mL Until Discontinu ed, Routine, Constipati on HYDROcodone 2019-0 Yes 1{tbl} 1 tablet, Univers -acetaminop 5-05 Oral, ity of hen (NORCO 15:16: Q6HPRN, [place] 5) 5-325 mg 05 Starting Medi kailash tablet 1 Thu03/20/20 Branc h tablet at 1016, Until Discontinu ed, Routine, Pain (scale 7-10) ibuprofen 2020-0 Yes 600mg 600 mg, Univ ers (IBU) 5-05 Oral, ity of tablet 600 15:16: Q6HPRN, [place] mg 05 Starting Medical Thu03/20/20 Branch at 1016, Until Discontinu ed, Routine, Pain (scale 4-6) acetaminoph 2020-0 Yes 650mg 650 mg, Un [place] en 5-05 Oral, ity of (TYLENOL) 15:16: Q6HPRN, [place] tablet 650 05 Starting Medic al mg Thu03/20/20 Branch at 1016, Until Discontinu ed, Routine, Pain (scale 1-3) diphenhydrA 2020-0 Yes 25mg 25 mg, Univ ers MINE 5-05 Oral, ity of (BENADRYL) 15:16: Q6HPRN, [place] tablet 25 05 Starting Medica l mg Thu03/20/20 Branch at 1016, Until Discontinu ed, Routine, Sleep, Itching docusate 2020-0 Yes 240mg 240 mg, Unive rs calcium 5-05 Oral, ity of (SURFAK) 15:16: QDAILYPRN, [place] capsule 240 05 Starting Medi kailash mg Thu03/20/20 Branch at 1016, Until Discontinu ed, Routine, Constipati on benzocaine- 2020-0 Yes Topical, Un [facility] menthol 5-05 PRN, ity of (DERMOPLAST 15:16: [place] 20-0.5 % 05 Thu03/20/20 Med ical topical at 1016, Branch spray Until Discontinu ed, Routine, Perineum discomfort acetaminoph 2020-0 2020- No 650mg 650 mg, U nivers en 5-04 05-04 Oral, ity of (TYLENOL) 21:00: 19:50 ONCE, 1 [place] tablet 650 00 :00 dose, Mon Medi kailash mg 03/19/20 at Branch 1600, Routine D5W-LR IV 2020-0 2020- No 1000mL at 125 Uni vers infusion 5-04 05-05 mL/hr, IV ity o f 1,000 mL 17:45: 15:16 Infusion, [place] 00 :11 CONTINUOUS Medical , Starting Branch 03/19/20 at 1245, Until 03/20/20 at 1016, Routine proMETHazin 2020- No 25mg 25 mg, IV Univers e 03-19 05-05 Piggyback, ity of (PHENERGAN) 17:35: 15:16 Q6HPRN, [place] 25 mg in 02 :11 Starting Medical NaCl 0.9% 03/19/20 Bran ch (NS) 50 mL at 1235, piggyback Until 03/20/20 at 1016, 50 mL FENTanyl PF 2020- No 100ug 100 mcg, Univers (SUBLIMAZE 03-19-05 Slow IV ity o f (PF)) 17:35: 15:16 Push, [place] injection 02 :11 Q1HPRN, Medical 100 mcg Starting Branch 03/19/20 at 1235, Until 03/20/20 at 1016, Routine, Pain (scale 7-10), contractio n pain without an epidural and SVE < 8 cm and Cat I strip lactated 2020- No 500mL at 999 Unive rs ringers IV 03-19 05-05 mL/hr, 500 it y of infusion 17:35: 15:16 mL, IV [place] 500 mL 01 :11 Infusion, Medical PRN - SEE Branch INSTRUCTIO NS, Starting 03/19/20 at 1235, Until Tu03/20/20 at 1016, Routine LR 1000 mL 2020- No 2mU/min at 6-120 Univers + oxytocin 03-19 05-05 mL/hr, IV ity of 20 units IV 17:35: 15:16 Infusion, [place] Solution 01 :11 TITRATE, Medical Starting Branch 03/19/20 at 1235, Until 03/20/20 at 1016, CHERYL 2019-0 Yes Take by [employer] 123/iron/fo 4-27 mouth ity of lic/omeg3s 23:40: daily. [place] (ONE-A-DAY 14 Medical WOMEN'S Branch 1 ORAL) 2019-0 Yes Take by [employer] s 123/iron/fo 4-27 mouth ity of lic/omeg3s 23:40: daily. [place] (ONE-A-DAY 14 Medical WOMEN'S Branch 1 ORAL) Yes Take by Univer s 123/iron/fo 4-27 mouth ity of lic/omeg3s 23:40: daily. [place] (ONE-A-DAY 14 Medical WOMEN'S Branch 1 ORAL) Yes Take by [facility] s 123/iron/fo 4-27 mouth ity of lic/omeg3s 23:40: daily. [place] (ONE-A-DAY 14 Medical WOMEN'S Branch 1 ORAL) Yes Take by [facility] s 123/iron/fo 4-27 mouth ity of lic/omeg3s 23:40: daily. [place] (ONE-A-DAY 14 Medical WOMEN'S Branch 1 ORAL) albuterol Yes [id number] 2{puff} Inhale 2 Univers 90 4-03 Puffs ity of mcg/actuati 00:00: every 6 [place] on inhaler 00 (six) Medical hours as Branch needed for Wheezing or Shortness of Breath. albuterol Yes [id number] 2{puff} Inhale 2 [facility] 90 4-03 Puffs ity of mcg/actuati 00:00: every 6 [place] on inhaler 00 (six) Medical hours as Branch needed for Wheezing or Shortness of Breath. albuterol Yes [id number] 2{puff} Inhale 2 [facility] 90 4-03 Puffs ity of mcg/actuati 00:00: every 6 [place] on inhaler 00 (six) Medical hours as Branch needed for Wheezing or Shortness of Breath. albuterol Yes [id number] 2{puff} Inhale 2 [facility] 90 4-03 Puffs ity of mcg/actuati 00:00: every 6 [place] on inhaler 00 (six) Medical hours as Branch needed for Wheezing or Shortness of Breath. albuterol Yes [id number] 2{puff} Inhale 2 Univers 90 4-03 Puffs ity of mcg/actuati 00:00: every 6 [place] on inhaler 00 (six) Medical hours as Branch needed for Wheezing or Shortness of Breath. albuterol Yes [id number] 2{puff} Inhale 2 [facility] 90 4-03 Puffs ity of mcg/actuati 00:00: every 6 [place] on inhaler 00 (six) Medical hours as Branch needed for Wheezing or Shortness of Breath. albuterol 2020-0 Yes [id number] 2{puff} Inhale 2 [facility] 90 4-03 Puffs ity of mcg/actuati 00:00: every 6 [place] on inhaler 00 (six) Medical hours as Branch needed for Wheezing or Shortness of Breath. albuterol 2020-0 Yes [id number] 2{puff} Inhale 2 [facility] 90 4-03 Puffs ity of mcg/actuati 00:00: every 6 [place] on inhaler 00 (six) Medical hours as Branch needed for Wheezing or Shortness of Breath. albuterol 2020-0 Yes [id number] 2{puff} Inhale 2 Univers 90 4-03 Puffs ity of mcg/actuati 00:00: every 6 [place] on inhaler 00 (six) Medical hours as Branch needed for Wheezing or Shortness of Breath. albuterol 2020-0 Yes [id number] 2{puff} Inhale 2 [facility] 90 4-03 Puffs ity of mcg/actuati 00:00: every 6 [place] on inhaler 00 (six) Medical hours as Branch needed for Wheezing or Shortness of Breath. albuterol 2020-0 Yes [id number] 2{puff} Inhale 2 [facility] 90 4-03 Puffs ity of mcg/actuati 00:00: every 6 [place] on inhaler 00 (six) Medical hours as Branch needed for Wheezing or Shortness of Breath. albuterol 2020-0 Yes [id number] 2{puff} Inhale 2 [facility] 90 4-03 Puffs ity of mcg/actuati 00:00: every 6 [place] on inhaler 00 (six) Medical hours as Branch needed for Wheezing or Shortness of Breath. albuterol 2020-0 Yes [id number] 2{puff} Inhale 2 [facility] 90 4-03 Puffs ity of mcg/actuati 00:00: every 6 [place] on inhaler 00 (six) Medical hours as Branch needed for Wheezing or Shortness of Breath. albuterol 2020-0 Yes [id number] 2{puff} Inhale 2 [facility] 90 4-03 Puffs ity of mcg/actuati 00:00: every 6 [place] on inhaler 00 (six) Medical hours as Branch needed for Wheezing or Shortness of Breath. albuterol Yes [id number] 2{puff} Inhale 2 Univers 90 4-03 Puffs ity of mcg/actuati 00:00: every 6 [place] on inhaler 00 (six) Medical hours as Branch needed for Wheezing or Shortness of Breath. albuterol Yes [id number] 2{puff} Inhale 2 Univers 90 4-03 Puffs ity of mcg/actuati 00:00: every 6 [place] on inhaler 00 (six) Medical hours as Branch needed for Wheezing or Shortness of Breath. albuterol Yes [id number] 2{puff} Inhale 2 Univers 90 4-03 Puffs ity of mcg/actuati 00:00: every 6 [place] on inhaler 00 (six) Medical hours as Branch needed for Wheezing or Shortness of Breath. albuterol Yes [id number] 2{puff} Inhale 2 Univers 90 4-03 Puffs ity of mcg/actuati 00:00: every 6 [place] on inhaler 00 (six) Medical hours as Branch needed for Wheezing or Shortness of Breath. albuterol Yes [id number] 2{puff} Inhale 2 Univers 90 4-03 Puffs ity of mcg/actuati 00:00: every 6 [place] on inhaler 00 (six) Medical hours as Branch needed for Wheezing or Shortness of Breath. albuterol 2020- No [id number] 2{puff} Inhale 2 Univers 90 4-03 05-26 Puffs ity of mcg/actuati 00:00: 00:00 every 6 [place] on inhaler 00 :00 (six) Medical hours as Branch needed for Wheezing or Shortness of Breath. 2019- Yes Take by [facility] 123/iron/fo 3-19 mouth ity of lic/omeg3s 20:29: daily. [place] (ONE-A-DAY 34 Medical WOMEN'S Branch 1 ORAL) 2019-0 Yes Take by [facility] 123/iron/fo 3-19 mouth ity of lic/omeg3s 20:29: daily. [place] (ONE-A-DAY 34 Medical WOMEN'S Branch 1 ORAL) 2020-0 Yes Take by [facility] 123/iron/fo 3-19 mouth ity of lic/omeg3s 20:29: daily. [place] (ONE-A-DAY 34 Medical WOMEN'S Branch 1 ORAL) 2020-0 Yes Take by [facility] s 123/iron/fo 3-19 mouth ity of lic/omeg3s 20:29: daily. [place] (ONE-A-DAY 34 Medical WOMEN'S Branch 1 ORAL) 2020-0 Yes Take by Un[facility] s 123/iron/fo 3-19 mouth ity of lic/omeg3s 20:29: daily. [place] (ONE-A-DAY 34 Medical WOMEN'S Branch 1 ORAL) 2020-0 Yes Take by [facility] s 123/iron/fo 3-19 mouth ity of lic/omeg3s 20:29: daily. [place] (ONE-A-DAY 34 Medical WOMEN'S Branch 1 ORAL) 2020-0 Yes Take by [facility] s 123/iron/fo 3-19 mouth ity of lic/omeg3s 20:29: daily. [place] (ONE-A-DAY 34 Medical WOMEN'S Branch 1 ORAL) 2020-0 Yes Take by [facility] 123/iron/fo 3-19 mouth ity of lic/omeg3s 20:29: daily. [place] (ONE-A-DAY 34 Medical WOMEN'S Branch 1 ORAL) 2020-0 Yes Take by [facility] 123/iron/fo 3-19 mouth ity of lic/omeg3s 20:29: daily. [place] (ONE-A-DAY 34 Medical WOMEN'S Branch 1 ORAL) 2020-0 Yes Take by [facility] 123/iron/fo 3-19 mouth ity of lic/omeg3s 20:29: daily. [place] (ONE-A-DAY 34 Medical WOMEN'S Branch 1 ORAL) 2020-0 Yes Take by [facility] 123/iron/fo 3-19 mouth ity of lic/omeg3s 20:29: daily. [place] (ONE-A-DAY 34 Medical WOMEN'S Branch 1 ORAL) 2020-0 Yes Take by [facility] 123/iron/fo 3-19 mouth ity of lic/omeg3s 20:29: daily. [place] (ONE-A-DAY 34 Medical WOMEN'S Branch 1 ORAL) 2020-0 Yes Take by [facility] 123/iron/fo 3-19 mouth ity of lic/omeg3s 20:29: daily. [place] (ONE-A-DAY 34 Medical WOMEN'S Branch 1 ORAL) 2020-0 Yes Take by [facility] 123/iron/fo 3-19 mouth ity of lic/omeg3s 20:29: daily. [place] (ONE-A-DAY 34 Medical WOMEN'S Branch 1 ORAL) 2020-0 Yes Take by [facility] 123/iron/fo 3-19 mouth ity of lic/omeg3s 20:29: daily. [place] (ONE-A-DAY 34 Medical WOMEN'S Branch 1 ORAL) 2020-0 Yes Take by [facility] 123/iron/fo 3-19 mouth ity of lic/omeg3s 20:29: daily. [place] (ONE-A-DAY 34 Medical WOMEN'S Branch 1 ORAL) 2020-0 Yes Take by [facility] 123/iron/fo 3-19 mouth ity of lic/omeg3s 20:29: daily. [place] (ONE-A-DAY 34 Medical WOMEN'S Branch 1 ORAL) 2020-0 Yes Take by [employer] 123/iron/fo 3-19 mouth ity of lic/omeg3s 20:29: daily. [place] (ONE-A-DAY 34 Medical WOMEN'S Branch 1 ORAL) 2020-0 Yes Take by [facility] 123/iron/fo 3-19 mouth ity of lic/omeg3s 20:29: daily. [place] (ONE-A-DAY 34 Medical WOMEN'S Branch 1 ORAL) 2020-0 Yes Take by [facility] 123/iron/fo 3-19 mouth ity of lic/omeg3s 20:29: daily. [place] (ONE-A-DAY 34 Medical WOMEN'S Branch 1 ORAL) 2020-0 Yes Take by [facility] 123/iron/fo 3-15 mouth ity of lic/omeg3s 14:04: daily. [place] (ONE-A-DAY 54 Medical WOMEN'S Branch 1 ORAL) 2020-0 Yes Take by [employer] 123/iron/fo 3-15 mouth ity of lic/omeg3s 14:04: daily. [place] (ONE-A-DAY 54 Medical WOMEN'S Branch 1 ORAL) 2020-0 Yes Take by [employer] 123/iron/fo 3-15 mouth ity of lic/omeg3s 14:04: daily. [place] (ONE-A-DAY [address] [facility] 1 ORAL) 2020-0 Yes Take by [facility] 123/iron/fo 3-15 mouth ity of lic/omeg3s 14:04: daily. [place] (ONE-A-DAY [address] [facility] 1 ORAL) 2020-0 Yes Take by [facility] 123/iron/fo 3-04 mouth ity of lic/omeg3s 22:30: daily. [place] (ONE-A-DAY [address] [facility] 1 ORAL) 2020-0 Yes Take by Univer s 123/iron/fo 3-04 mouth ity of lic/omeg3s 22:30: daily. [place] (ONE-A-DAY [address] [facility] 1 ORAL) 2020-0 Yes Take by Univer s 123/iron/fo 3-04 mouth ity of lic/omeg3s 22:30: daily. [place] (ONE-A-DAY [address] [facility] 1 ORAL) 2020-0 Yes Take by Un[facility] s 123/iron/fo 3-04 mouth ity of lic/omeg3s 22:30: daily. [place] (ONE-A-DAY [address] [facility] 1 ORAL) 2020-0 Yes 1{tbl} 1 tablet, Un [facility] vitamin 3-04 Oral, ity of w/FA 15:00: DAILY, [place] (PRENATABS 00 First dose Med ical RX) tablet on Thu Branch 1 tablet 01/18/20 at 0900, Until Discontinu ed, Routine ondansetron 2020-0 2020- No 4mg 4 mg, Slow Univers (ZOFRAN 3-04 03-04 IV Push, ity of (PF)) 06:30: 06:37 ONCE, 1 [place] injection 4 00 :00 dose, Wed Med ical mg 01/18/20 at Branch 0045, Routine D5W 0.45% 2020-0 Yes 1000mL at 100 Univ ers NaCl 3-04 mL/hr, ity of (1/2NS) IV 06:15: 1,000 mL, [place] infusion 00 IV Medical 1,000 mL Infusion, Branch CONTINUOUS , Starting Thu01/18/20 at 0015, Until Discontinu ed, CHERYL magnesium 2020-0 2020- No 2g/h 2 g/hr (25 U nivers sulfate in -04 03-04 mL/hr), at it y of LR 40 06:15: 16:18 25 mL/hr, [place] gram/500 mL 00 :25 IV Medical IV Solution Infusion, Bra n[place] CONTINUOUS , Starting Thu01/18/20 at 0015, Until Thu01/18/20 at 1018, CHERYL lactated 2020-0 Yes 1000mL at 50 Univer s ringers IV 3-04 mL/hr, ity of infusion 05:30: 1,000 mL, [place] 1,000 mL 00 IV Medical Infusion, Branch CONTINUOUS , Starting Thu01/17/20 at 2330, Until Discontinu ed, Routine metroNIDAZO 2020-0 Yes 500mg 500 mg, Un socorro LE (FLAGYL) 3-04 Oral, BID, it y of tablet 500 05:30: First dose [place] mg 00 on [facility] 01/17/20 at Branch 2330, Until Discontinu ed, Routine
Reason for Anti-Infec tive: Documented Infection< br>Documen trish Infection Site: Pelvic
Duration of Therapy: 7 days alum-mag 2020-0 Yes 30mL 30 mL, Univers hydroxide-s 3-04 Oral, ity of imeth 05:20: Q6HPRN, [place] (MAALOX 16 Starting Medical PLUS / Thu01/17/20 Branch MAG-AL at 2320, PLUS) Until 200-200-20 Discontinu mg/5 mL ed, suspension Routine, 30 mL Indigestio n docusate 2020-0 Yes 240mg 240 mg, Unive rs calcium 3-04 Oral, ity of (SURFAK) 05:20: QHSPRN, [place] capsule 240 16 Starting Medi kailash mg Thu01/17/20 Branch at 2320, Until Discontinu ed, Routine, Constipati on magnesium 2020-0 Yes 30mL 30 mL, Univer s hydroxide 3-04 Oral, ity of (MILK OF 05:20: QDAILYPRN, [place] MAGNESIA) 15 Starting Medica l 400 mg/5 mL Thu01/17/20 Br anch suspension at 2320, 30 mL Until Discontinu ed, Routine, Constipati on lactated 2019- No 1000mL at 999 Univ ers ringers IV 01-17 03-04 mL/hr, ity of infusion 02:45: 02:30 1,000 mL, [place] 1,000 mL 00 :00 Intravenou Medic al s, ONCE, 1 Branch dose, 01/17/20 at 2045, Routine metroNIDAZO 2019- 2020- No [id number] 500mg Take 1 Univers LE 500 mg 01-17 tablet by ity of tablet 00:00: 04:59 mouth 2 [place] 00 :00 (two) Medical times Branch daily for 6 days. metroNIDAZO 2019-0 2020- No [id number] 500mg Take 1 Univers LE 500 mg 01-17 tablet by ity of tablet 00:00: 04:59 mouth 2 [place] 00 :00 (two) Medical times Branch daily for 6 days. metroNIDAZO 2019-0 2019- No [id number] 500mg Take 1 Univers LE 500 mg 01-17 tablet by ity of tablet 00:00: 04:59 mouth 2 [place] 00 :00 (two) Medical times Branch daily for 6 days. ampicillin Yes 2g 2,000 mg Uni vers (POLYCILLIN 3 (2 g), IV ity of -N) 2,000 22:45: Piggyback, [place] mg in NaCl 00 Q6H ABX, Medic al 0.9% (NS) First dose Bran ch 100 mL on e MINI-BAG 01/17/20 at 1645, Until Discontinu ed, 100 mL
R cheryl for Anti-Infec tive: Empiric Non-Surgic al Prophylaxi s
Durat ion of therapy: 72 hours
S pecific indication : Abx latency betamethaso 2019- No 12mg 12 mg, Uni vers ne acet,sod 3 03-04 Intramuscu i ty of phos 22:45: 21:52 lar, Q24H, [place] (CELESTONE 00 :00 2 doses, Medic al SOLUSPAN) 6 First dose Br anch mg/mL on Tue injection 01/17/20 at 12 mg 1645, Last dose on 01/18/20 at 1645, Routine azithromyci 2019-0 2020- No 1000mg 1,000 mg, [facility] 01-16 03- Oral, ity of (ZITHROMAX) 22:45: 22:30 ONCE, 1 [place] tablet 00 :00 dose, Tue Medical 1,000 mg 01/17/20 at Branch 1645, CHERYL
Re ason for Anti-Infec tive: Empiric Non-Surgic al Prophylaxi s
Durat ion of therapy: 72 hours
S pecific indication : suspected PPROM, abx for latency D5W-LR IV 2020-0 Yes 1000mL at 125 Univ ers infusion 3-03 mL/hr, IV ity of 1,000 mL 20:10: Infusion, [place] 00 CONTINUOUS Medical , Starting Branch 01/17/20 at 1415, Until Discontinu ed, Routine lactated 2019-0 2020- No 1000mL at 999 Univ ers ringers IV -03 03-03 mL/hr, ity of infusion 20:10: 20:36 1,000 mL, [place] 1,000 mL 00 :00 IV Medical Infusion, [place] ONCE, 1 dose, 01/17/20 at 1415, CHERYL 2020-0 Yes Take by [employer] 123/iron/fo 3-03 mouth ity of lic/omeg3s 17:50: daily. [place] [facility] [place] [facility] 2020-0 Yes Take by [employer] 123/iron/fo 2-25 mouth ity of lic/omeg3s 03:17: daily. [place] [facility] [place] [facility] 2020-0 Yes Take by [employer] 123/iron/fo 2-25 mouth ity of lic/omeg3s 03:17: daily. [place] [facility] [place] [facility] D5W-LR IV 2019-0 Yes 1000mL at 125 Univ ers infusion 2-25 mL/hr, IV ity of 1,000 mL 00:15: Infusion, [place] 00 CONTINUOUS Medical , Starting Branch 01/09/20 at 1815, Until Discontinu ed, Routine lactated 2020-0 2020- No 1000mL at 999 Univ ers ringers IV 2-25 02-24 mL/hr, ity of infusion 00:15: 23:20 1,000 mL, [place] 1,000 mL 00 :00 IV Medical Infusion, Branch ONCE, 1 dose, 01/09/20 at 1815, Routine metoclopram 2019-2019- No 10mg 10 mg, Uni vers ayden HCl 01-09-25 Slow IV ity of (REGLAN) 23:10: 00:23 Push, [place] injection 00 :00 ONCE, 1 Medical 10 mg dose, Mon Branch 01/09/20 at 1715, Routine albuterol 0 Yes [id number] 2{puff} Inhale 2 Univers 90 1-02 Puffs ity of mcg/actuati 00:00: every 6 [place] on inhaler 00 (six) Medical hours as Branch needed for Wheezing or Shortness of Breath. albuterol 0 Yes [id number] 2{puff} Inhale 2 Univers 90 1-02 Puffs ity of mcg/actuati 00:00: every 6 [place] on inhaler 00 (six) Medical hours as Branch needed for Wheezing or Shortness of Breath. albuterol 0 Yes [id number] 2{puff} Inhale 2 Univers 90 1-02 Puffs ity of mcg/actuati 00:00: every 6 [place] on inhaler 00 (six) Medical hours as Branch needed for Wheezing or Shortness of Breath. albuterol 0 Yes [id number] 2{puff} Inhale 2 Univers 90 1-02 Puffs ity of mcg/actuati 00:00: every 6 [place] on inhaler 00 (six) Medical hours as Branch needed for Wheezing or Shortness of Breath. albuterol 2019-0 Yes [id number] 2{puff} Inhale 2 Univers 90 1-02 Puffs ity of mcg/actuati 00:00: every 6 [place] on inhaler 00 (six) Medical hours as Branch needed for Wheezing or Shortness of Breath. albuterol 2019-0 Yes [id number] 2{puff} Inhale 2 Univers 90 1-02 Puffs ity of mcg/actuati 00:00: every 6 [place] on inhaler 00 (six) Medical hours as Branch needed for Wheezing or Shortness of Breath. albuterol 2019-0 Yes [id number] 2{puff} Inhale 2 Univers 90 1-02 Puffs ity of mcg/actuati 00:00: every 6 [place] on inhaler 00 (six) Medical hours as Branch needed for Wheezing or Shortness of Breath. albuterol 2020-0 Yes [id number] 2{puff} Inhale 2 Univers 90 1-02 Puffs ity of mcg/actuati 00:00: every 6 [place] on inhaler 00 (six) Medical hours as Branch needed for Wheezing or Shortness of Breath. albuterol 2020-0 Yes [id number] 2{puff} Inhale 2 Univers 90 1-02 Puffs ity of mcg/actuati 00:00: every 6 [place] on inhaler 00 (six) Medical hours as Branch needed for Wheezing or Shortness of Breath. albuterol 2020-0 Yes [id number] 2{puff} Inhale 2 Univers 90 1-02 Puffs ity of mcg/actuati 00:00: every 6 [place] on inhaler 00 (six) Medical hours as Branch needed for Wheezing or Shortness of Breath. albuterol 2020-0 Yes [id number] 2{puff} Inhale 2 Univers 90 1-02 Puffs ity of mcg/actuati 00:00: every 6 [place] on inhaler 00 (six) Medical hours as Branch needed for Wheezing or Shortness of Breath. albuterol 2020-0 Yes [id number] 2{puff} Inhale 2 Univers 90 1-02 Puffs ity of mcg/actuati 00:00: every 6 [place] on inhaler 00 (six) Medical hours as Branch needed for Wheezing or Shortness of Breath. albuterol 2020-0 Yes [id number] 2{puff} Inhale 2 Univers 90 1-02 Puffs ity of mcg/actuati 00:00: every 6 [place] on inhaler 00 (six) Medical hours as Branch needed for Wheezing or Shortness of Breath. albuterol 2020-0 Yes [id number] 2{puff} Inhale 2 Univers 90 1-02 Puffs ity of mcg/actuati 00:00: every 6 [place] on inhaler 00 (six) Medical hours as Branch needed for Wheezing or Shortness of Breath. albuterol 2020-0 Yes [id number] 2{puff} Inhale 2 Univers 90 1-02 Puffs ity of mcg/actuati 00:00: every 6 [place] on inhaler 00 (six) Medical hours as Branch needed for Wheezing or Shortness of Breath. albuterol 2020-0 Yes [id number] 2{puff} Inhale 2 Univers 90 1-02 Puffs ity of mcg/actuati 00:00: every 6 [place] on inhaler 00 (six) Medical hours as Branch needed for Wheezing or Shortness of Breath. albuterol 2020-0 Yes [id number] 2{puff} Inhale 2 Univers 90 1-02 Puffs ity of mcg/actuati 00:00: every 6 [place] on inhaler 00 (six) Medical hours as Branch needed for Wheezing or Shortness of Breath. albuterol 2020-0 Yes [id number] 2{puff} Inhale 2 Univers 90 1-02 Puffs ity of mcg/actuati 00:00: every 6 [place] on inhaler 00 (six) Medical hours as Branch needed for Wheezing or Shortness of Breath. albuterol 2020-0 Yes [id number] 2{puff} Inhale 2 Univers 90 1-02 Puffs ity of mcg/actuati 00:00: every 6 [place] on inhaler 00 (six) Medical hours as Branch needed for Wheezing or Shortness of Breath. albuterol 2020-0 Yes [id number] 2{puff} Inhale 2 Univers 90 1-02 Puffs ity of mcg/actuati 00:00: every 6 [place] on inhaler 00 (six) Medical hours as Branch needed for Wheezing or Shortness of Breath. albuterol 2020-0 Yes [id number] 2{puff} Inhale 2 Univers 90 1-02 Puffs ity of mcg/actuati 00:00: every 6 [place] on inhaler 00 (six) Medical hours as Branch needed for Wheezing or Shortness of Breath. albuterol 2020-0 Yes [id number] 2{puff} Inhale 2 Univers 90 1-02 Puffs ity of mcg/actuati 00:00: every 6 [place] on inhaler 00 (six) Medical hours as Branch needed for Wheezing or Shortness of Breath. albuterol 2020-0 Yes [id number] 2{puff} Inhale 2 Univers 90 1-02 Puffs ity of mcg/actuati 00:00: every 6 [place] on inhaler 00 (six) Medical hours as Branch needed for Wheezing or Shortness of Breath. albuterol 2020-0 Yes [id number] 2{puff} Inhale 2 Univers 90 1-02 Puffs ity of mcg/actuati 00:00: every 6 [place] on inhaler 00 (six) Medical hours as Branch needed for Wheezing or Shortness of Breath. albuterol 2020-0 Yes [id number] 2{puff} Inhale 2 Univers 90 1-02 Puffs ity of mcg/actuati 00:00: every 6 [place] on inhaler 00 (six) Medical hours as Branch needed for Wheezing or Shortness of Breath. albuterol 2020-0 Yes [id number] 2{puff} Inhale 2 Univers 90 1-02 Puffs ity of mcg/actuati 00:00: every 6 [place] on inhaler 00 (six) Medical hours as Branch needed for Wheezing or Shortness of Breath. albuterol 2020-0 Yes [id number] 2{puff} Inhale 2 Univers 90 1-02 Puffs ity of mcg/actuati 00:00: every 6 [place] on inhaler 00 (six) Medical hours as Branch needed for Wheezing or Shortness of Breath. albuterol 2020-0 Yes [id number] 2{puff} Inhale 2 Univers 90 1-02 Puffs ity of mcg/actuati 00:00: every 6 [place] on inhaler 00 (six) Medical hours as Branch needed for Wheezing or Shortness of Breath. albuterol 2020-0 Yes [id number] 2{puff} Inhale 2 Univers 90 1-02 Puffs ity of mcg/actuati 00:00: every 6 [place] on inhaler 00 (six) Medical hours as Branch needed for Wheezing or Shortness of Breath. albuterol 2020-0 Yes [id number] 2{puff} Inhale 2 Univers 90 1-02 Puffs ity of mcg/actuati 00:00: every 6 [place] on inhaler 00 (six) Medical hours as Branch needed for Wheezing or Shortness of Breath. albuterol 2020-0 Yes [id number] 2{puff} Inhale 2 Univers 90 1-02 Puffs ity of mcg/actuati 00:00: every 6 [place] on inhaler 00 (six) Medical hours as Branch needed for Wheezing or Shortness of Breath. albuterol 2020-0 Yes [id number] 2{puff} Inhale 2 Univers 90 1-02 Puffs ity of mcg/actuati 00:00: every 6 [place] on inhaler 00 (six) Medical hours as Branch needed for Wheezing or Shortness of Breath. albuterol 2020-0 Yes [id number] 2{puff} Inhale 2 Univers 90 1-02 Puffs ity of mcg/actuati 00:00: every 6 [place] on inhaler 00 (six) Medical hours as Branch needed for Wheezing or Shortness of Breath. albuterol 2020-0 Yes [id number] 2{puff} Inhale 2 Univers 90 1-02 Puffs ity of mcg/actuati 00:00: every 6 [place] on inhaler 00 (six) Medical hours as Branch needed for Wheezing or Shortness of Breath. albuterol 2020-0 Yes [id number] 2{puff} Inhale 2 [facility] 90 1-02 Puffs ity of mcg/actuati 00:00: every 6 [facility]aden as on inhaler 00 (six) Medical hours as Branch needed for Wheezing or Shortness of Breath. albuterol 2020-0 Yes [id number] 2{puff} Inhale 2 [facility] 90 1-02 Puffs ity of mcg/actuati 00:00: every 6 [facility]aden as on inhaler 00 (six) Medical hours as Branch needed for Wheezing or Shortness of Breath. albuterol 2020-0 Yes [id number] 2{puff} Inhale 2 [facility] 90 1-02 Puffs ity of mcg/actuati 00:00: every 6 [place]aden as on inhaler 00 (six) Medical hours as Branch needed for Wheezing or Shortness of Breath. albuterol 2020-0 Yes [id number] 2{puff} Inhale 2 [facility] 90 1-02 Puffs ity of mcg/actuati 00:00: every 6 [place] as on inhaler 00 (six) Medical hours as Branch needed for Wheezing or Shortness of Breath. albuterol 2020-0 Yes [id number] 2{puff} Inhale 2 [facility] 90 1-02 Puffs ity of mcg/actuati 00:00: every 6 [facility] as on inhaler 00 (six) Medical hours as Branch needed for Wheezing or Shortness of Breath. albuterol 2020-0 Yes [id number] 2{puff} Inhale 2 [facility] 90 1-02 Puffs ity of mcg/actuati 00:00: every 6 [facility] as on inhaler 00 (six) Medical hours as Branch needed for Wheezing or Shortness of Breath. albuterol 2019-0 Yes [id number] 2{puff} Inhale 2 [facility] 90 1-02 Puffs ity of mcg/actuati 00:00: every 6 [place] as on inhaler 00 (six) Medical hours as Branch needed for Wheezing or Shortness of Breath. albuterol 2019-0 Yes [id number] 2{puff} Inhale 2 [facility] 90 1-02 Puffs ity of mcg/actuati 00:00: every 6 [place] on inhaler 00 (six) Medical hours as Branch needed for Wheezing or Shortness of Breath. albuterol 2019-0 Yes [id number] 2{puff} Inhale 2 [facility] 90 1-02 Puffs ity of mcg/actuati 00:00: every 6 [place] on inhaler 00 (six) Medical hours as Branch needed for Wheezing or Shortness of Breath. albuterol 2019-0 Yes [id number] 2{puff} Inhale 2 [facility] 90 1-02 Puffs ity of mcg/actuati 00:00: every 6 [place] on inhaler 00 (six) Medical hours as Branch needed for Wheezing or Shortness of Breath. albuterol 2019-0 Yes [id number] 2{puff} Inhale 2 [facility] 90 1-02 Puffs ity of mcg/actuati 00:00: every 6 [place] on inhaler 00 (six) Medical hours as Branch needed for Wheezing or Shortness of Breath. albuterol 2019-0 Yes [id number] 2{puff} Inhale 2 [facility] 90 1-02 Puffs ity of mcg/actuati 00:00: every 6 [place] on inhaler 00 (six) Medical hours as Branch needed for Wheezing or Shortness of Breath. albuterol 2019-0 Yes [id number] 2{puff} Inhale 2 [facility] 90 1-02 Puffs ity of mcg/actuati 00:00: every 6 [place] on inhaler 00 (six) Medical hours as Branch needed for Wheezing or Shortness of Breath. albuterol 2019-0 Yes [id number] 2{puff} Inhale 2 [facility] 90 1-02 Puffs ity of mcg/actuati 00:00: every 6 [place] on inhaler 00 (six) Medical hours as Branch needed for Wheezing or Shortness of Breath. albuterol Yes [id number] 2{puff} Inhale 2 [facility] 90 1-02 Puffs ity of mcg/actuati 00:00: every 6 [place] on inhaler 00 (six) Medical hours as Branch needed for Wheezing or Shortness of Breath. albuterol Yes [id number] 2{puff} Inhale 2 [facility] 90 1-02 Puffs ity of mcg/actuati 00:00: every 6 [place] on inhaler 00 (six) Medical hours as Branch needed for Wheezing or Shortness of Breath. albuterol Yes [id number] 2{puff} Inhale 2 [facility] 90 1-02 Puffs ity of mcg/actuati 00:00: every 6 [place] on inhaler 00 (six) Medical hours as Branch needed for Wheezing or Shortness of Breath. albuterol Yes [id number] 2{puff} Inhale 2 [facility] 90 1-02 Puffs ity of mcg/actuati 00:00: every 6 [place] on inhaler 00 (six) Medical hours as Branch needed for Wheezing or Shortness of Breath. albuterol Yes [id number] 2{puff} Inhale 2 [facility] 90 1-02 Puffs ity of mcg/actuati 00:00: every 6 [place] on inhaler 00 (six) Medical hours as Branch needed for Wheezing or Shortness of Breath. albuterol Yes [id number] 2{puff} Inhale 2 [facility] 90 1-02 Puffs ity of mcg/actuati 00:00: every 6 [place] on inhaler 00 (six) Medical hours as Branch needed for Wheezing or Shortness of Breath. albuterol 0 2020- No [id number] 2{puff} Inhale 2 [facility] 90 1-02 08-12 Puffs ity of mcg/actuati 00:00: 00:00 every 6 [place] on inhaler 00 :00 (six) Medical hours as Branch needed for Wheezing or Shortness of Breath. albuterol 2020- No [id number] 2{puff} Inhale 2 [facility] 90 11-17 08-12 Puffs ity of mcg/actuati 00:00: 00:00 every 6 [place] on inhaler 00 :00 (six) Medical hours as Branch needed for Wheezing or Shortness of Breath. Yes Take by [facility] 123/iron/fo 9-16 mouth ity of lic/omeg3s 19:53: daily. [place] (ONE-A-DAY 00 Medical WOMEN'S Branch 1 ORAL) Yes Take by [facility] 123/iron/fo 9-16 mouth ity of lic/omeg3s 19:53: daily. [place] (ONE-A-DAY 00 Medical WOMEN'S Branch 1 ORAL) Yes Take by [facility] 123/iron/fo 9-16 mouth ity of lic/omeg3s 19:53: daily. [place] (ONE-A-DAY 00 Medical WOMEN'S Branch 1 ORAL) Yes Take by [facility] 123/iron/fo 9-16 mouth ity of lic/omeg3s 19:53: daily. [place] (ONE-A-DAY 00 Medical WOMEN'S Branch 1 ORAL) Yes Take by [facility] 123/iron/fo 9-16 mouth ity of lic/omeg3s 19:53: daily. [place] (ONE-A-DAY 00 Medical WOMEN'S Branch 1 ORAL) Yes Take by [facility] 123/iron/fo 9-16 mouth ity of lic/omeg3s 19:53: daily. [place] (ONE-A-DAY 00 Medical WOMEN'S Branch 1 ORAL) norgestimat Yes [id number] 1{tbl} Take 1 [facility] e-ethinyl 1-17 tablet by ity o f estradiol 00:00: mouth [place] 0.25-35 00 daily. Medical mg-mcg per Branch tablet norgestimat Yes [id number] 1{tbl} Take 1 [facility] e-ethinyl 1-17 tablet by ity o f estradiol 00:00: mouth [place] 0.25-35 00 daily. Medical mg-mcg per Branch tablet ALBUTEROL Yes Inhale. [facility] INHALE 12 ity of 21:36: [place] 25 Medical Branch ALBUTEROL Yes Inhale. [facility] INHALE 9-12 ity of 21:36: [address] albuterol Yes 2{puff} Inhale 2 [facility] (VENTOLIN) 9-12 Puffs ity of 90 00:00: every 4 [place] mcg/actuati 00 (four) Medica l on inhaler hours as Branc h needed for Wheezing or Shortness of Breath. albuterol Yes 2{puff} Inhale 2 [facility] (VENTOLIN) 9-12 Puffs ity of 90 00:00: every 4 [place] mcg/actuati 00 (four) Medica l on inhaler hours as Branc h needed for Wheezing or Shortness of Breath. Albuterol Albuterol No Albuterol Sulfate Sulfate Sulfate Montelukast Montelukast No 1{table QD Montelukas Sodium 10 Sodium 10 t} t Sodium MG MG 10 MG Phentermine Phentermine No 1{capsu QD Phentermin HCl 30 MG HCl 30 MG le} e HCl 30 MG Montelukast Montelukast No Montelukas Sodium 10 Sodium 10 t Sodium MG MG 10 MG Albuterol Albuterol No Albuterol Sulfate Sulfate Sulfate Montelukast Montelukast No [place]ukas Sodium 10 Sodium 10 t Sodium MG MG 10 MG Albuterol Albuterol No Albuterol Sulfate Sulfate Sulfate Phentermine Phentermine No 1{capsu QD Phentermin HCl 30 MG HCl 30 MG le} e HCl 30 MG Phentermine Phentermine No 1{capsu QD Phentermin HCl 30 MG HCl 30 MG le} e HCl 30 MG Montelukast Montelukast No [place]ukas Sodium 10 Sodium 10 t Sodium MG MG 10 MG Albuterol Albuterol No Albuterol Sulfate Sulfate Sulfate Phentermine Phentermine No 1{capsu QD Phentermin HCl 30 MG HCl 30 MG le} e HCl 30 MG Montelukast Montelukast No Montelukas Sodium 10 Sodium 10 t Sodium MG MG 10 MG Albuterol Albuterol No Albuterol Sulfate Sulfate Sulfate Phentermine Phentermine No 1{capsu QD Phentermin HCl 30 MG HCl 30 MG le} e HCl 30 MG Montelukast Montelukast No Montelukas Sodium 10 Sodium 10 t Sodium MG MG 10 MG Albuterol Albuterol No Albuterol Sulfate Sulfate Sulfate Phentermine Phentermine No 1{capsu QD Phentermin HCl 30 MG HCl 30 MG le} e HCl 30 MG Montelukast Montelukast No [place]elukas Sodium 10 Sodium 10 t Sodium MG MG 10 MG Albuterol Albuterol No Albuterol Sulfate Sulfate Sulfate Phentermine Phentermine No 1{capsu QD Phentermin HCl 30 MG HCl 30 MG le} e HCl 30 MG Montelukast Montelukast No [place]ukas Sodium 10 Sodium 10 t Sodium MG MG 10 MG Albuterol Albuterol No Albuterol Sulfate Sulfate Sulfate Albuterol Albuterol No Albuterol Sulfate Sulfate Sulfate Phentermine Phentermine No 1{capsu QD Phentermin HCl 30 MG HCl 30 MG le} e HCl 30 MG Montelukast Montelukast No [place]elukas Sodium 10 Sodium 10 t Sodium MG MG 10 MG Albuterol Albuterol No Albuterol Sulfate Sulfate Sulfate Phentermine Phentermine No 1{capsu QD Phentermin HCl 30 MG HCl 30 MG le} e HCl 30 MG Montelukast Montelukast No [place]elukas Sodium 10 Sodium 10 t Sodium MG MG 10 MG Albuterol Albuterol No Albuterol Sulfate Sulfate Sulfate Montelukast Montelukast No [place]ukas Sodium 10 Sodium 10 t Sodium MG MG 10 MG Phentermine Phentermine No 1{capsu QD Phentermin HCl 30 MG HCl 30 MG le} e HCl 30 MG Albuterol Albuterol No Sulfate Sulfate Montelukast Montelukast No Sodium 10 Sodium 10 MG MG Phentermine Phentermine No 1{capsu QD HCl 30 MG HCl 30 MG le} Phentermine Phentermine No 1{capsu QD Phentermin HCl 30 MG HCl 30 MG le} e HCl 30 MG Albuterol Albuterol No Albuterol Sulfate Sulfate Sulfate Montelukast Montelukast No Montelukas Sodium 10 Sodium 10 t Sodium MG MG 10 MG Phentermine Phentermine No 1{capsu QD Phentermin HCl 30 MG HCl 30 MG le} e HCl 30 MG Albuterol Albuterol No Albuterol Sulfate Sulfate Sulfate Montelukast Montelukast No Montelukas Sodium 10 Sodium 10 t Sodium MG MG 10 MG Phentermine Phentermine No 1{capsu QD Phentermin HCl 30 MG HCl 30 MG le} e HCl 30 MG Albuterol Albuterol No Albuterol Sulfate Sulfate Sulfate Montelukast Montelukast No [place]elukas Sodium 10 Sodium 10 t Sodium MG MG 10 MG Montelukast Montelukast No Montelukas Sodium 10 Sodium 10 t Sodium MG MG 10 MG Phentermine Phentermine No 1{capsu QD Phentermin HCl 30 MG HCl 30 MG le} e HCl 30 MG Albuterol Albuterol No Albuterol Sulfate Sulfate Sulfate Montelukast Montelukast No [place]elukas Sodium 10 Sodium 10 t Sodium MG MG 10 MG Phentermine Phentermine No 1{capsu QD Phentermin HCl 30 MG HCl 30 MG le} e HCl 30 MG Albuterol Albuterol No Albuterol Sulfate Sulfate Sulfate Albuterol Albuterol No 1{puff_ 6xD Albuterol Sulfate HFA Sulfate HFA as_need Sulfate 108 (90 108 (90 ed} HFA 108 Base) Base) (90 Base) MCG/ACT MCG/ACT MCG/ACT Montelukast Montelukast No Montelukas Sodium 10 Sodium 10 t Sodium MG MG 10 MG Albuterol Albuterol No 1{puff_ 6xD Albuterol Sulfate HFA Sulfate HFA as_need Sulfate 108 (90 108 (90 ed} HFA 108 Base) Base) (90 Base) MCG/ACT MCG/ACT MCG/ACT Montelukast Montelukast No Montelukas Sodium 10 Sodium 10 t Sodium MG MG 10 MG Montelukast Montelukast No QD Montelukas Sodium 10 Sodium 10 t Sodium MG MG 10 MG Albuterol Albuterol No 1{puff_ 6xD Albuterol Sulfate HFA Sulfate HFA as_need Sulfate 108 (90 108 (90 ed} HFA 108 Base) Base) (90 Base) MCG/ACT MCG/ACT MCG/ACT Montelukast Montelukast No QD Montelukas Sodium 10 Sodium 10 t Sodium MG MG 10 MG Albuterol Albuterol No 1{puff_ 6xD Albuterol Sulfate HFA Sulfate HFA as_need Sulfate 108 (90 108 (90 ed} HFA 108 Base) Base) (90 Base) MCG/ACT MCG/ACT MCG/ACT No Montelukast Montelukast No 1{table QD Montelukas Sodium 10 Sodium 10 t} t Sodium MG MG 10 MG Montelukast Montelukast No QD [place] Sodium 10 Sodium 10 t Sodium MG MG 10 MG methylPREDN methylPREDN No QD methylPRED ISolone 4 ISolone 4 NISolone 4 MG MG MG Albuterol Albuterol No 1{puff_ 6xD Albuterol Sulfate HFA Sulfate HFA as_need Sulfate 108 (90 108 (90 ed} HFA 108 Base) Base) (90 Base) MCG/ACT MCG/ACT MCG/ACT No Montelukast Montelukast No 1{table QD Montelukas Sodium 10 Sodium 10 t} t Sodium MG MG 10 MG Montelukast Montelukast No QD [place] Sodium 10 Sodium 10 t Sodium MG MG 10 MG methylPREDN methylPREDN No QD methylPRED ISolone 4 ISolone 4 NISolone 4 MG MG MG Albuterol Albuterol No 1{puff_ 6xD Albuterol Sulfate HFA Sulfate HFA as_need Sulfate 108 (90 108 (90 ed} HFA 108 Base) Base) (90 Base) MCG/ACT MCG/ACT MCG/ACT No Montelukast Montelukast No 1{table QD Montelukas Sodium 10 Sodium 10 t} t Sodium MG MG 10 MG Albuterol Albuterol No 1{puff_ 6xD Albuterol Sulfate HFA Sulfate HFA as_need Sulfate 108 (90 108 (90 ed} HFA 108 Base) Base) (90 Base) MCG/ACT MCG/ACT MCG/ACT Montelukast Montelukast No Montelukas Sodium 10 Sodium 10 t Sodium MG MG 10 MG No methylPREDN methylPREDN No QD methylPRED ISolone 4 ISolone 4 NISolone 4 MG MG MG Montelukast Montelukast No Montelukas Sodium 10 Sodium 10 t Sodium MG MG 10 MG methylPREDN methylPREDN No QD methylPRED ISolone 4 ISolone 4 NISolone 4 MG MG MG No Albuterol Albuterol No 1{puff_ 6xD Albuterol Sulfate HFA Sulfate HFA as_need Sulfate 108 (90 108 (90 ed} HFA 108 Base) Base) (90 Base) MCG/ACT MCG/ACT MCG/ACT Montelukast Montelukast No Montelukas Sodium 10 Sodium 10 t Sodium MG MG 10 MG methylPREDN methylPREDN No QD methylPRED ISolone 4 ISolone 4 NISolone 4 MG MG MG No Albuterol Albuterol No 1{puff_ 6xD Albuterol Sulfate HFA Sulfate HFA as_need Sulfate 108 (90 108 (90 ed} HFA 108 Base) Base) (90 Base) MCG/ACT MCG/ACT MCG/ACT No Albuterol Albuterol No 1{puff_ 6xD Albuterol Sulfate HFA Sulfate HFA as_need Sulfate 108 (90 108 (90 ed} HFA 108 Base) Base) (90 Base) MCG/ACT MCG/ACT MCG/ACT Montelukast Montelukast No QD Montelukas Sodium 10 Sodium 10 t Sodium MG MG 10 MG methylPREDN methylPREDN No QD methylPRED ISolone 4 ISolone 4 NISolone 4 MG MG MG Montelukast Montelukast No 1{table QD Montelukas Sodium 10 Sodium 10 t} t Sodium MG MG 10 MG Phentermine Phentermine No 1{capsu QD Phentermin HCl 30 MG HCl 30 MG le} e HCl 30 MG Immunizations Ordered Immunization Filled Immunization Date Status Commen ts Source Name Name Moderna COVID-19 Moderna COVID-19 2021-07-26 Completed [facility] 09:17:00 [facility] Moderna COVID-19 Moderna COVID-19 2021-07-26 Completed [facility] Vaccine Vaccine 09:17:00 [facility] Moderna COVID-19 Moderna COVID-19 2021-07-26 Completed [facility] Vaccine Vaccine 09:17:00 [facility] Moderna COVID-19 Moderna COVID-19 2021-07-26 Completed [facility] Vaccine Vaccine 09:17:00 [facility] Moderna COVID-19 Moderna COVID-19 2021-07-26 Completed [facility] Vaccine Vaccine 09:17:00 [facility] Moderna COVID-19 Moderna COVID-19 2021-07-26 Completed [facility] Vaccine Vaccine 09:17:00 [facility] Moderna COVID-19 Moderna COVID-19 2021-07-26 Completed [facility] - Vaccine Vaccine 09:17:00 [facility] Moderna COVID-19 Moderna COVID-19 2021-07-26 Completed [facility] - Vaccine Vaccine 09:17:00 [facility] Moderna COVID-19 Moderna COVID-19 2021-07-26 Completed [facility] - Vaccine Vaccine 09:17:00 [facility] Moderna COVID-19 Moderna COVID-19 2021-07-26 Completed [facility] - Vaccine Vaccine 09:17:00 [facility] Moderna COVID-19 Moderna COVID-19 2021-07-26 Completed [facility] - Vaccine Vaccine 09:17:00 [facility] Moderna COVID-19 Moderna COVID-19 2021-07-26 Completed [facility] - Vaccine Vaccine 09:17:00 [facility] Moderna COVID-19 Moderna COVID-19 2021-07-26 Completed [facility] - Vaccine Vaccine 09:17:00 [facility] Moderna COVID-19 Moderna COVID-19 2021-07-26 Completed [facility] - Vaccine Vaccine 09:17:00 [facility] Moderna COVID-19 Moderna COVID-19 2021-07-26 Completed [facility] - Vaccine Vaccine 09:17:00 [facility] Moderna COVID-19 Moderna COVID-19 2021-07-26 Completed [facility] - Vaccine Vaccine 09:17:00 [facility] Moderna COVID-19 Moderna COVID-19 2021-07-26 Completed [facility] - Vaccine Vaccine 09:17:00 [facility] Moderna COVID-19 Moderna COVID-19 2021-07-26 Completed [facility] - Vaccine Vaccine 09:17:00 [facility] Moderna COVID-19 Moderna COVID-19 2021-07-26 Completed [facility] - Vaccine Vaccine 09:17:00 [facility] Moderna COVID-19 Moderna COVID-19 2021-07-26 Completed [facility] - Vaccine Vaccine 09:17:00 [facility] Moderna COVID-19 Moderna COVID-19 2021-07-26 Completed [facility] - Vaccine Vaccine 09:17:00 [facility] Moderna COVID-19 Moderna COVID-19 2021-07-26 Completed [facility] - Vaccine Vaccine 09:17:00 [facility] Moderna COVID-19 Moderna COVID-19 2021-07-26 Completed [facility] - Vaccine Vaccine 09:17:00 [facility] Moderna COVID-19 Moderna COVID-19 2021-07-26 Completed [facility] - Vaccine Vaccine 09:17:00 [facility] Moderna COVID-19 Moderna COVID-19 2021-07-26 Completed [facility] - Vaccine Vaccine 09:17:00 [facility] Moderna COVID-19 Moderna COVID-19 2021-06-28 Completed [facility] - Vaccine Vaccine 11:31:00 [facility] Moderna COVID-19 Moderna COVID-19 2021-06-28 Completed [facility] - Vaccine Vaccine 11:31:00 [facility] Moderna COVID-19 Moderna COVID-19 2021-06-28 Completed [facility] - Vaccine Vaccine 11:31:00 [facility] Moderna COVID-19 Moderna COVID-19 2021-06-28 Completed [facility] - Vaccine Vaccine 11:31:00 [facility] Moderna COVID-19 Moderna COVID-19 2021-06-28 Completed [facility] - Vaccine Vaccine 11:31:00 [facility] Moderna COVID-19 Moderna COVID-19 2021-06-28 Completed [facility] - Vaccine Vaccine 11:31:00 [facility] Moderna COVID-19 Moderna COVID-19 2021-06-28 Completed [facility] - Vaccine Vaccine 11:31:00 [facility] Moderna COVID-19 Moderna COVID-19 2021-06-28 Completed [facility] - Vaccine Vaccine 11:31:00 [facility] Moderna COVID-19 Moderna COVID-19 2021-06-28 Completed [facility] - Vaccine Vaccine 11:31:00 [facility] Moderna COVID-19 Moderna COVID-19 2021-06-28 Completed [facility] - Vaccine Vaccine 11:31:00 [facility] Moderna COVID-19 Moderna COVID-19 2021-06-28 Completed [facility] - Vaccine Vaccine 11:31:00 [facility] Moderna COVID-19 Moderna COVID-19 2021-06-28 Completed [facility] - Vaccine Vaccine 11:31:00 [facility] Moderna COVID-19 Moderna COVID-19 2021-06-28 Completed [facility] - Vaccine Vaccine 11:31:00 [facility] Moderna COVID-19 Moderna COVID-19 2021-06-28 Completed [facility] - Vaccine Vaccine 11:31:00 [facility] Moderna COVID-19 Moderna COVID-19 2021-06-28 Completed [facility] - Vaccine Vaccine 11:31:00 [facility] Moderna COVID-19 Moderna COVID-19 2021-06-28 Completed [facility] - Vaccine Vaccine 11:31:00 [facility] Moderna COVID-19 Moderna COVID-19 2021-06-28 Completed [facility] - Vaccine Vaccine 11:31:00 [facility] Moderna COVID-19 Moderna COVID-19 2021-06-28 Completed [facility] - Vaccine Vaccine 11:31:00 [facility] Moderna COVID-19 Moderna COVID-19 2021-06-28 Completed [facility] - Vaccine Vaccine 11:31:00 [facility] Moderna COVID-19 Moderna COVID-19 2021-06-28 Completed [facility] - Vaccine Vaccine 11:31:00 [facility] Moderna COVID-19 Moderna COVID-19 2021-06-28 Completed [facility] - Vaccine Vaccine 11:31:00 [facility] Moderna COVID-19 Moderna COVID-19 2021-06-28 Completed [facility] - Vaccine Vaccine 11:31:00 [facility] Moderna COVID-19 Moderna COVID-19 2021-06-28 Completed [facility] - Vaccine Vaccine 11:31:00 [facility] Moderna COVID-19 Moderna COVID-19 2021-06-28 Completed [facility] - Vaccine Vaccine 11:31:00 [facility] Moderna COVID-19 Moderna COVID-19 2021-06-28 Completed [facility] - Vaccine Vaccine 11:31:00 [facility] Moderna COVID-19 Moderna COVID-19 2021-06-28 Completed [facility] - Vaccine Vaccine 11:31:00 [facility] Kenalog Kenalog 2020-09-18 Completed [facility] - (Triamcinolone) (Triamcinolone) 14:39:00 [facility] Kenalog Kenalog 2020-09-18 Completed [facility] - (Triamcinolone) (Triamcinolone) 14:39:00 [facility] Kenalog Kenalog 2020-09-18 Completed [facility] - (Triamcinolone) (Triamcinolone) 14:39:00 [facility] Kenalog Kenalog 2020-09-18 Completed [facility] - (Triamcinolone) (Triamcinolone) 14:39:00 [facility] Kenalog Kenalog 2020-09-18 Completed [facility] - (Triamcinolone) (Triamcinolone) 14:39:00 [facility] Influenza Virus 2019-08-31 Completed [facility] Vaccine Quad .5 mL 00:00:00 [place] [facility] 6+ MO [facility] Influenza Virus 2019-08-31 Completed [facility] of Vaccine [facility] .5 mL 00:00:00 [place] [facility] IM 6+ MO [facility] Influenza Virus 2019-08-31 Completed [facility] of Vaccine [facility] .5 mL 00:00:00 [place] [facility] IM 6+ MO Branch Influenza Virus 2019-08-31 Completed [facility] of Vaccine [facility] .5 mL 00:00:00 [place] [facility] IM 6+ MO Branch Influenza Virus 2019-08-31 Completed [facility] of Vaccine [facility] .5 mL 00:00:00 [place] [facility] IM 6+ MO [facility] Influenza Virus 2019-08-31 Completed [facility] of Vaccine [facility] .5 mL 00:00:00 [place] [facility] IM 6+ MO Branch Influenza Virus 2019-08-31 Completed [facility] of Vaccine [facility] .5 mL 00:00:00 [place] [facility] IM 6+ MO [facility] Influenza Virus 2019-08-31 Completed [facility] of Vaccine [facility] .5 mL 00:00:00 [place] [facility] IM 6+ MO [facility] Influenza Virus 2019-08-31 Completed [facility] of Vaccine [facility] .5 mL 00:00:00 [place] [facility] IM 6+ MO [facility] Influenza Virus 2019-08-31 Completed [facility] of Vaccine [facility] .5 mL 00:00:00 [place] [facility] IM 6+ MO Branch Influenza Virus 2019-08-31 Completed [facility] of Vaccine [facility] .5 mL 00:00:00 [place] [facility] 6[facility] MO [facility] Influenza Virus 2019-08-31 Completed [facility] of Vaccine [facility] .5 mL 00:00:00 [place] [facility] IM 6+ MO [facility] Influenza Virus 2019-08-31 Completed [facility] of Vaccine [facility] .5 mL 00:00:00 [place] [facility] IM 6+ MO [facility] Influenza Virus 2019-08-31 Completed [facility] of Vaccine [facility] .5 mL 00:00:00 [place] [facility] IM 6+ MO [facility] Influenza Virus 2019-08-31 Completed [facility] of Vaccine [facility] .5 mL 00:00:00 [place] [facility] IM 6+ MO [facility] Influenza Virus 2019-08-31 Completed [facility] of Vaccine [facility] .5 mL 00:00:00 [place] [facility] 6+ MO [facility] Influenza Virus 2019-08-31 Completed [facility] of Vaccine [facility] .5 mL 00:00:00 [place] [facility] IM 6+ MO [facility] Influenza Virus 2019-08-31 Completed [facility] of Vaccine [facility] .5 mL 00:00:00 [place] [facility] IM 6+ MO [facility] Influenza Virus 2019-08-31 Completed [facility] of Vaccine [facility] .5 mL 00:00:00 [place] [facility] 6+ MO [facility] Influenza Virus 2019-08-31 Completed [facility] of Vaccine [facility] .5 mL 00:00:00 [place] [facility] 6+ MO [facility] Influenza Virus 2019-08-31 Completed [facility] of Vaccine [facility] .5 mL 00:00:00 [place] [facility] IM 6+ MO [facility] Influenza Virus 2019-08-31 Completed [facility] of Vaccine [facility] .5 mL 00:00:00 [place] [facility] 6[facility] MO [facility] Influenza Virus 2019-08-31 Completed [facility] of Vaccine [facility] .5 mL 00:00:00 [place] [facility] 6[facility] MO [facility] Influenza Virus 2019-08-31 Completed [facility] of Vaccine [facility] .5 mL 00:00:00 [place] [facility] 6[facility] MO [facility] Influenza Virus 2019-08-31 Completed [facility] of Vaccine [facility] .5 mL 00:00:00 [place] [facility] 6+ MO [facility] Influenza Virus 2019-08-31 Completed [facility] of Vaccine [facility] .5 mL 00:00:00 [place] [facility] IM 6+ MO [facility] Influenza Virus 2019-08-31 Completed [facility] of Vaccine [facility] .5 mL 00:00:00 [place] [facility] 6+ MO [facility] Influenza Virus 2019-08-31 Completed [facility] of Vaccine [facility] .5 mL 00:00:00 [place] [facility] 6[facility] MO [facility] Influenza Virus 2019-08-31 Completed [facility] of Vaccine [facility] .5 mL 00:00:00 [place] [facility] 6[facility] MO [facility] Influenza Virus 2019-08-31 Completed [facility] of Vaccine [facility] .5 mL 00:00:00 [place] [facility] 6[facility] MO [facility] Influenza Virus 2019-08-31 Completed [facility] of Vaccine [facility] .5 mL 00:00:00 [place] [facility] 6[facility] MO [facility] Influenza Virus 2019-08-31 Completed [facility] of Vaccine [facility] .5 mL 00:00:00 [place] [facility] IM 6[facility] MO [facility] Influenza Virus 2019-08-31 Completed [facility] of Vaccine Quad .5 mL 00:00:00 [place] [facility] 6[facility] MO Branch Influenza Virus 2019-08-31 Completed [facility] of Vaccine [facility] .5 mL 00:00:00 [place] [facility] 6[facility] MO [facility] Influenza Virus 2019-08-31 Completed [facility] of Vaccine Quad .5 mL 00:00:00 [place] [facility] 6[facility] MO [facility] Influenza Virus 2019-08-31 Completed [facility] of Vaccine [facility] .5 mL 00:00:00 [place] [facility] 6[facility] MO [facility] Influenza Virus 2019-08-31 Completed [facility] of Vaccine [facility] .5 mL 00:00:00 [place] [facility] 6[facility] MO [facility] Influenza Virus 2019-08-31 Completed [facility] of Vaccine Quad .5 mL 00:00:00 [place] [facility] 6[facility] MO Branch Influenza Virus 2019-08-31 Completed [facility] of Vaccine Quad .5 mL 00:00:00 [place] [facility] 6[facility] MO [facility] Influenza Virus 2019-08-31 Completed [facility] Vaccine [facility] .5 mL 00:00:00 [place] [facility] 6[facility] MO [facility] Influenza Virus 2019-08-31 Completed [facility] of Vaccine [facility] .5 mL 00:00:00 [facility] Influenza Virus 2019-08-31 Completed [facility] .5 mL 00:00:00 [facility] Influenza Virus 2019-08-31 Completed [facility] .5 mL 00:00:00 [facility] Influenza Virus 2019-08-31 Completed [facility] .5 mL 00:00:00 [facility] Influenza Virus 2019-08-31 Completed [facility] .5 mL 00:00:00 [facility] Influenza Virus 2019-08-31 Completed [facility] .5 mL 00:00:00 [facility] Influenza Virus 2019-08-31 Completed [facility] .5 mL 00:00:00 [facility] Influenza Virus 2019-08-31 Completed [facility] .5 mL 00:00:00 [facility] Influenza Virus 2019-08-31 Completed [facility] .5 mL 00:00:00 [facility] Influenza Virus 2019-08-31 Completed [facility] .5 mL 00:00:00 [facility] Influenza Virus 2019-08-31 Completed [facility] .5 mL 00:00:00 [facility] Influenza Virus 2019-08-31 Completed [facility] .5 mL 00:00:00 [facility] Influenza Virus 2019-08-31 Completed [facility] .5 mL 00:00:00 [facility] Influenza Virus 2019-08-31 Completed [facility] .5 mL 00:00:00 [facility] Influenza Virus 2019-08-31 Completed [facility] .5 mL 00:00:00 [facility] Influenza Virus 2019-08-31 Completed [facility] .5 mL 00:00:00 [facility] Influenza Virus 2019-08-31 Completed [facility] .5 mL 00:00:00 [facility] Influenza Virus 2019-08-31 Completed [facility] .5 mL 00:00:00 [facility] Influenza Virus 2019-08-31 Completed [facility] .5 mL 00:00:00 [facility] Influenza Virus 2019-08-31 Completed [facility] .5 mL 00:00:00 [facility] Influenza Virus 2019-08-31 Completed [facility] .5 mL 00:00:00 [facility] Influenza Virus 2019-08-31 Completed [facility] .5 mL 00:00:00 [facility] Influenza Virus 2019-08-31 Completed [facility] .5 mL 00:00:00 [facility] Influenza Virus 2019-08-31 Completed [facility] .5 mL 00:00:00 [facility] Influenza Virus 2019-08-31 Completed [facility] .5 mL 00:00:00 [facility] Influenza Virus 2019-08-31 Completed [facility] .5 mL 00:00:00 [facility] Influenza Virus 2019-08-31 Completed [facility] .5 mL 00:00:00 [facility] Influenza Virus 2019-08-31 Completed [facility] .5 mL 00:00:00 [facility] Influenza Virus 2019-08-31 Completed [facility] .5 mL 00:00:00 [facility] Influenza Virus 2019-08-31 Completed [facility] .5 mL 00:00:00 [facility] Influenza Virus 2019-08-31 Completed [facility] .5 mL 00:00:00 [facility] Influenza Virus 2019-08-31 Completed [facility] .5 mL 00:00:00 [facility] Influenza Virus 2019-08-31 Completed [facility] .5 mL 00:00:00 [facility] Influenza Virus 2019-08-31 Completed [facility] .5 mL 00:00:00 [facility] Influenza Virus 2019-08-31 Completed [facility] .5 mL 00:00:00 [facility] Influenza Virus 2019-08-31 Completed [facility] .5 mL 00:00:00 [facility] Influenza Virus 2019-08-31 Completed [facility] .5 mL 00:00:00 [facility] Influenza Virus 2019-08-31 Completed [facility] .5 mL 00:00:00 [facility] Influenza Virus 2019-08-31 Completed [facility] .5 mL 00:00:00 [facility] Influenza Virus 2019-08-31 Completed [facility] .5 mL 00:00:00 [facility] Influenza Virus 2019-08-31 Completed [facility] .5 mL 00:00:00 [facility] Influenza Virus 2019-08-31 Completed [facility] .5 mL 00:00:00 [facility] Influenza Virus 2019-08-31 Completed [facility] .5 mL 00:00:00 [facility] Influenza Virus 2019-08-31 Completed [facility] .5 mL 00:00:00 [facility] Influenza Virus 2019-08-31 Completed [facility] .5 mL 00:00:00 [facility] Influenza Virus 2019-08-31 Completed [facility] .5 mL 00:00:00 [facility] Influenza Virus 2019-08-31 Completed [facility] .5 mL 00:00:00 [facility] Influenza Virus 2019-08-31 Completed [facility] .5 mL 00:00:00 [facility] Influenza Virus 2019-08-31 Completed [facility] .5 mL 00:00:00 [facility] Influenza Virus 2019-08-31 Completed [facility] .5 mL 00:00:00 [facility] Influenza Virus 2019-08-31 Completed [facility] .5 mL 00:00:00 [facility] Influenza Virus 2019-08-31 Completed [facility] .5 mL 00:00:00 [facility] Influenza Virus 2019-08-31 Completed [facility] .5 mL 00:00:00 [facility] Influenza Virus 2019-08-31 Completed [facility] .5 mL 00:00:00 [facility] Influenza Virus 2019-08-31 Completed [facility] .5 mL 00:00:00 [facility] Influenza Virus 2019-08-31 Completed [facility] .5 mL 00:00:00 [facility] Influenza Virus 2019-08-31 Completed [facility] .5 mL 00:00:00 [facility] Influenza Virus 2019-08-31 Completed [facility] .5 mL 00:00:00 [facility] Influenza Virus 2019-08-31 Completed [facility] .5 mL 00:00:00 [facility] Influenza Virus 2019-08-31 Completed [facility] .5 mL 00:00:00 [facility] Influenza Virus 2019-08-31 Completed [facility] .5 mL 00:00:00 [facility] Influenza Virus 2019-08-31 Completed [facility] .5 mL 00:00:00 [facility] Influenza Virus 2019-08-31 Completed [facility] .5 mL 00:00:00 [facility] Influenza Virus 2019-08-31 Completed [facility] .5 mL 00:00:00 [facility] Influenza Virus 2019-08-31 Completed [facility] .5 mL 00:00:00 [facility] Influenza Virus 2019-08-31 Completed [facility] .5 mL 00:00:00 [facility] Influenza Virus 2019-08-31 Completed [facility] .5 mL 00:00:00 [facility] Influenza Virus 2019-08-31 Completed [facility] .5 mL 00:00:00 [facility] Influenza Virus 2019-08-31 Completed [facility] .5 mL 00:00:00 [facility] Influenza Virus 2019-08-31 Completed [facility] .5 mL 00:00:00 [facility] Influenza Virus 2019-08-31 Completed [facility] .5 mL 00:00:00 [facility] Influenza Virus 2019-08-31 Completed [facility] .5 mL 00:00:00 [facility] Influenza Virus 2019-08-31 Completed [facility] .5 mL 00:00:00 [facility] Influenza Virus 2019-08-31 Completed [facility] .5 mL 00:00:00 [facility] Influenza Virus 2019-08-31 Completed [facility] .5 mL 00:00:00 [facility] Influenza Virus 2019-08-31 Completed [facility] .5 mL 00:00:00 [facility] Influenza Virus 2019-08-31 Completed [facility] .5 mL 00:00:00 [facility] Influenza Virus 2019-08-31 Completed [facility] .5 mL 00:00:00 [facility] Influenza Virus 2019-08-31 Completed [facility] .5 mL 00:00:00 [facility] Influenza Virus 2019-08-31 Completed [facility] .5 mL 00:00:00 [facility] Influenza Virus 2019-08-31 Completed [facility] .5 mL 00:00:00 [facility] Influenza Virus 2019-08-31 Completed [facility] .5 mL 00:00:00 [facility] Influenza Virus 2019-08-31 Completed [facility] .5 mL 00:00:00 [facility] Influenza Virus 2019-08-31 Completed [facility] .5 mL 00:00:00 [facility] Influenza Virus 2019-08-31 Completed [facility] .5 mL 00:00:00 [facility] Influenza Virus 2019-08-31 Completed [facility] .5 mL 00:00:00 [facility] 6[facility] HPV 2014-03-29 Completed [facility] 00:00:00 [facility] HPV 2014-03-29 Completed [facility] 00:00:00 [facility] HPV 2014-03-29 Completed [facility] 00:00:00 [facility] HPV 2014-03-29 Completed [facility] 00:00:00 [facility] HPV 2014-03-29 Completed [facility] 00:00:00 [facility] HPV 2014-03-29 Completed [facility] 00:00:00 [facility] HPV 2014-03-29 Completed [facility] 00:00:00 [facility] HPV 2014-03-29 Completed [facility] 00:00:00 [facility] HPV 2014-03-29 Completed [facility] 00:00:00 [facility] HPV 2014-03-29 Completed [facility] 00:00:00 [facility] HPV 2014-03-29 Completed [facility] 00:00:00 [facility] HPV 2014-03-29 Completed [facility] 00:00:00 [facility] HPV 2014-03-29 Completed [facility] 00:00:00 [facility] HPV 2014-03-29 Completed [facility] 00:00:00 [facility] HPV 2014-03-29 Completed [facility] 00:00:00 [facility] HPV 2014-03-29 Completed [facility] 00:00:00 [facility] HPV 2014-03-29 Completed [facility] 00:00:00 [facility] HPV 2014-03-29 Completed [facility] 00:00:00 [facility] HPV 2014-03-29 Completed [facility] 00:00:00 [facility] HPV 2014-03-29 Completed [facility] 00:00:00 [facility] HPV 2014-03-29 Completed [facility] 00:00:00 [facility] HPV 2014-03-29 Completed [facility] 00:00:00 [facility] HPV 2014-03-29 Completed [facility] 00:00:00 [facility] HPV 2014-03-29 Completed [facility] 00:00:00 [facility] HPV 2014-03-29 Completed [facility] 00:00:00 [facility] HPV 2014-03-29 Completed [facility] 00:00:00 [facility] HPV 2014-03-29 Completed [facility] 00:00:00 [facility] HPV 2014-03-29 Completed [facility] 00:00:00 [facility] HPV 2014-03-29 Completed [facility] 00:00:00 [facility] HPV 2014-03-29 Completed [facility] 00:00:00 [facility] HPV 2014-03-29 Completed [facility] 00:00:00 [facility] HPV 2014-03-29 Completed [facility] 00:00:00 [facility] HPV 2014-03-29 Completed [facility] 00:00:00 [facility] HPV 2014-03-29 Completed [facility] 00:00:00 [facility] HPV 2014-03-29 Completed [facility] 00:00:00 [facility] HPV 2014-03-29 Completed [facility] 00:00:00 [facility] HPV 2014-03-29 Completed [facility] 00:00:00 [facility] HPV 2014-03-29 Completed [facility] 00:00:00 [facility] HPV 2014-03-29 Completed [facility] 00:00:00 [facility] HPV 2014-03-29 Completed [facility] 00:00:00 [facility] HPV 2014-03-29 Completed [facility] 00:00:00 [facility] HPV 2014-03-29 Completed [facility] 00:00:00 [facility] HPV 2014-03-29 Completed [facility] 00:00:00 [facility] HPV 2014-03-29 Completed [facility] 00:00:00 [facility] HPV 2014-03-29 Completed [facility] 00:00:00 [facility] HPV 2014-03-29 Completed [facility] 00:00:00 [facility] HPV 2014-03-29 Completed [facility] 00:00:00 [facility] HPV 2014-03-29 Completed [facility] 00:00:00 [facility] HPV 2014-03-29 Completed [facility] 00:00:00 [facility] HPV 2014-03-29 Completed [facility] 00:00:00 [facility] HPV 2014-03-29 Completed [facility] 00:00:00 [facility] HPV 2014-03-29 Completed [facility] 00:00:00 [facility] HPV 2014-03-29 Completed [facility] 00:00:00 [facility] HPV 2014-03-29 Completed [facility] 00:00:00 [facility] HPV 2014-03-29 Completed [facility] 00:00:00 [facility] HPV 2014-03-29 Completed [facility] 00:00:00 [facility] HPV 2014-03-29 Completed [facility] 00:00:00 [facility] HPV 2014-03-29 Completed [facility] 00:00:00 [facility] HPV 2014-03-29 Completed [facility] 00:00:00 [facility] HPV 2014-03-29 Completed [facility] 00:00:00 [facility] HPV 2014-03-29 Completed [facility] 00:00:00 [facility] HPV 2014-03-29 Completed [facility] 00:00:00 [facility] HPV 2014-03-29 Completed [facility] 00:00:00 [facility] HPV 2014-03-29 Completed [facility] 00:00:00 [facility] HPV 2014-03-29 Completed [facility] 00:00:00 [facility] HPV 2014-03-29 Completed [facility] 00:00:00 [facility] HPV 2014-03-29 Completed [facility] 00:00:00 [facility] HPV 2014-03-29 Completed [facility] 00:00:00 [facility] HPV 2014-03-29 Completed [facility] 00:00:00 [facility] HPV 2014-03-29 Completed [facility] 00:00:00 [facility] HPV 2014-03-29 Completed [facility] 00:00:00 [facility] HPV 2014-03-29 Completed [facility] 00:00:00 [facility] HPV 2014-03-29 Completed [facility] 00:00:00 [facility] HPV 2014-03-29 Completed [facility] 00:00:00 [facility] HPV 2014-03-29 Completed [facility] 00:00:00 [facility] HPV 2014-03-29 Completed [facility] 00:00:00 [facility] HPV 2014-03-29 Completed [facility] 00:00:00 [facility] HPV 2014-03-29 Completed [facility] 00:00:00 [facility] HPV 2014-03-29 Completed [facility] 00:00:00 [facility] HPV 2014-03-29 Completed [facility] 00:00:00 [facility] HPV 2014-03-29 Completed [facility] 00:00:00 [facility] HPV 2014-03-29 Completed [facility] 00:00:00 [facility] HPV 2014-03-29 Completed [facility] 00:00:00 [facility] HPV 2014-03-29 Completed [facility] 00:00:00 [facility] HPV 2014-03-29 Completed [facility] 00:00:00 [facility] HPV 2014-03-29 Completed [facility] 00:00:00 [facility] HPV 2014-03-29 Completed [facility] 00:00:00 [facility] HPV 2014-03-29 Completed [facility] 00:00:00 [facility] HPV 2014-03-29 Completed [facility] 00:00:00 [facility] HPV 2014-03-29 Completed [facility] 00:00:00 [facility] HPV 2014-03-29 Completed [facility] 00:00:00 [facility] HPV 2014-03-29 Completed [facility] 00:00:00 [facility] HPV 2014-03-29 Completed [facility] 00:00:00 [facility] HPV 2014-03-29 Completed [facility] 00:00:00 [facility] HPV 2014-03-29 Completed [facility] 00:00:00 [facility] HPV 2014-03-29 Completed [facility] 00:00:00 [facility] HPV 2014-03-29 Completed [facility] 00:00:00 [facility] HPV 2014-03-29 Completed [facility] 00:00:00 [facility] HPV 2014-03-29 Completed [facility] 00:00:00 [facility] HPV 2014-03-29 Completed [facility] 00:00:00 [facility] HPV 2014-03-29 Completed [facility] 00:00:00 [facility] HPV 2014-03-29 Completed [facility] 00:00:00 [facility] HPV 2014-03-29 Completed [facility] 00:00:00 [facility] HPV 2014-03-29 Completed [facility] 00:00:00 [facility] HPV 2014-03-29 Completed [facility] 00:00:00 [facility] HPV 2014-03-29 Completed [facility] 00:00:00 [facility] HPV 2014-03-29 Completed [facility] 00:00:00 [facility] HPV 2014-03-29 Completed [facility] 00:00:00 [facility] HPV 2014-03-29 Completed [facility] 00:00:00 [facility] HPV 2014-03-29 Completed [facility] 00:00:00 [facility] HPV 2014-03-29 Completed [facility] 00:00:00 [facility] HPV 2014-03-29 Completed [facility] 00:00:00 [facility] HPV 2014-03-29 Completed [facility] 00:00:00 [facility] HPV 2014-03-29 Completed [facility] 00:00:00 [facility] HPV 2014-03-29 Completed [facility] 00:00:00 [facility] HPV 2014-03-29 Completed [facility] 00:00:00 [facility] HPV 2014-03-29 Completed [facility] 00:00:00 [facility] HPV 2014-03-29 Completed [facility] 00:00:00 [facility] HPV 2014-03-29 Completed [facility] 00:00:00 [facility] HPV 2014-03-29 Completed [facility] 00:00:00 [facility] HPV 2014-03-29 Completed [facility] 00:00:00 [facility] HPV 2014-03-29 Completed [facility] 00:00:00 [facility] HPV 2014-03-29 Completed [facility] 00:00:00 [facility] HPV 2014-03-29 Completed [facility] 00:00:00 [facility] HPV 2014-03-29 Completed [facility] 00:00:00 [facility] HPV 2014-03-29 Completed [facility] 00:00:00 [facility] HPV 2014-03-29 Completed [facility] 00:00:00 [facility] HPV 2014-03-29 Completed [facility] 00:00:00 [facility] Influenza Virus 2013-11-29 Completed [facility] Vaccine (3+ yrs) 00:00:00 [facility] HPV 2013-11-29 Completed [facility] 00:00:00 [facility] Influenza Virus 2013-11-29 Completed [facility] Vaccine (3+ yrs) 00:00:00 [facility] HPV 2013-11-29 Completed [facility] 00:00:00 [facility] Influenza Virus 2013-11-29 Completed [facility] Vaccine (3+ yrs) 00:00:00 [facility] HPV 2013-11-29 Completed [facility] 00:00:00 [facility] Influenza Virus 2013-11-29 Completed [facility] Vaccine (3+ yrs) 00:00:00 [facility] HPV 2013-11-29 Completed [facility] 00:00:00 [facility] Influenza Virus 2013-11-29 Completed [facility] Vaccine (3+ yrs) 00:00:00 [facility] Influenza Virus 2013-11-29 Completed [facility] Vaccine (3+ yrs) 00:00:00 [facility] HPV 2013-11-29 Completed [facility] 00:00:00 [facility] HPV 2013-11-29 Completed [facility] 00:00:00 [facility] Influenza Virus 2013-11-29 Completed [facility] Vaccine (3+ yrs) 00:00:00 [facility] HPV 2013-11-29 Completed [facility] 00:00:00 [facility] Influenza Virus 2013-11-29 Completed [facility] Vaccine (3+ yrs) 00:00:00 [facility] HPV 2013-11-29 Completed [facility] 00:00:00 [facility] Influenza Virus 2013-11-29 Completed [facility] Vaccine (3+ yrs) 00:00:00 [facility] HPV 2013-11-29 Completed [facility] 00:00:00 [facility] Influenza Virus 2013-11-29 Completed [facility] Vaccine (3+ yrs) 00:00:00 [facility] HPV 2013-11-29 Completed [facility] 00:00:00 [facility] Influenza Virus 2013-11-29 Completed [facility] Vaccine (3+ yrs) 00:00:00 [facility] HPV 2013-11-29 Completed [facility] 00:00:00 [facility] Influenza Virus 2013-11-29 Completed [facility] Vaccine (3+ yrs) 00:00:00 [facility] HPV 2013-11-29 Completed [facility] 00:00:00 [facility] Influenza Virus 2013-11-29 Completed [facility] Vaccine (3+ yrs) 00:00:00 [facility] HPV 2013-11-29 Completed [facility] 00:00:00 [facility] Influenza Virus 2013-11-29 Completed [facility] Vaccine (3+ yrs) 00:00:00 [facility] HPV 2013-11-29 Completed [facility] 00:00:00 [facility] Influenza Virus 2013-11-29 Completed [facility] Vaccine (3+ yrs) 00:00:00 [facility] HPV 2013-11-29 Completed [facility] 00:00:00 [facility] Influenza Virus 2013-11-29 Completed [facility] Vaccine (3+ yrs) 00:00:00 [facility] HPV 2013-11-29 Completed [facility] 00:00:00 [facility] Influenza Virus 2013-11-29 Completed [facility] Vaccine (3+ yrs) 00:00:00 [facility] HPV 2013-11-29 Completed [facility] 00:00:00 [facility] Influenza Virus 2013-11-29 Completed [facility] Vaccine (3+ yrs) 00:00:00 [facility] HPV 2013-11-29 Completed [facility] 00:00:00 [facility] Influenza Virus 2013-11-29 Completed [facility] Vaccine (3+ yrs) 00:00:00 [facility] HPV 2013-11-29 Completed [facility] 00:00:00 [facility] Influenza Virus 2013-11-29 Completed [facility] Vaccine (3+ yrs) 00:00:00 [facility] HPV 2013-11-29 Completed [facility] 00:00:00 [facility] Influenza Virus 2013-11-29 Completed [facility] Vaccine (3+ yrs) 00:00:00 [facility] HPV 2013-11-29 Completed [facility] 00:00:00 [facility] Influenza Virus 2013-11-29 Completed [facility] Vaccine (3+ yrs) 00:00:00 [facility] HPV 2013-11-29 Completed [facility] 00:00:00 [facility] Influenza Virus 2013-11-29 Completed [facility] Vaccine (3+ yrs) 00:00:00 [facility] HPV 2013-11-29 Completed [facility] 00:00:00 [facility] Influenza Virus 2013-11-29 Completed [facility] Vaccine (3+ yrs) 00:00:00 [facility] HPV 2013-11-29 Completed [facility] 00:00:00 [facility] Influenza Virus 2013-11-29 Completed [facility] Vaccine (3+ yrs) 00:00:00 [facility] HPV 2013-11-29 Completed [facility] 00:00:00 [facility] Influenza Virus 2013-11-29 Completed [facility] Vaccine (3+ yrs) 00:00:00 [facility] HPV 2013-11-29 Completed [facility] 00:00:00 [facility] Influenza Virus 2013-11-29 Completed [facility] Vaccine (3+ yrs) 00:00:00 [facility] HPV 2013-11-29 Completed [facility] 00:00:00 [facility] Influenza Virus 2013-11-29 [facility] (3+ yrs) 00:00:00 [facility] HPV 2013-11-29 Completed [facility] 00:00:00 [facility] Influenza Virus 2013-11-29 Completed [facility] Vaccine (3+ yrs) 00:00:00 [facility] HPV 2013-11-29 Completed [facility] 00:00:00 [facility] Influenza Virus 2013-11-29 Completed [facility] Vaccine (3+ yrs) 00:00:00 [facility] HPV 2013-11-29 Completed [facility] 00:00:00 [facility] Influenza Virus 2013-11-29 Completed [facility] Vaccine (3+ yrs) 00:00:00 [facility] HPV 2013-11-29 Completed [facility] 00:00:00 [facility] Influenza Virus 2013-11-29 Completed [facility] Vaccine (3+ yrs) 00:00:00 [facility] HPV 2013-11-29 Completed [facility] 00[facility]00:00 [facility] Influenza Virus 2013-11-29 Completed [facility] Vaccine (3+ yrs) 00:00:00 [facility] HPV 2013-11-29 Completed [facility] 00:00:00 [facility] Influenza Virus 2013-11-29 Completed [facility] Vaccine (3+ yrs) 00:00:00 [facility] HPV 2013-11-29 Completed [facility] 00:00:00 [facility] Influenza Virus 2013-11-29 Completed [facility] Vaccine (3+ yrs) 00:00:00 [facility] HPV 2013-11-29 Completed [facility] 00:00:00 [facility] Influenza Virus 2013-11-29 Completed [facility] Vaccine (3+ yrs) 00:00:00 [facility] HPV 2013-11-29 Completed [facility] 00:00:00 [facility] Influenza Virus 2013-11-29 Completed [facility] Vaccine (3+ yrs) 00:00:00 [facility] HPV 2013-11-29 Completed [facility] 00:00:00 [facility] Influenza Virus 2013-11-29 Completed [facility] Vaccine (3+ yrs) 00:00:00 [facility] HPV 2013-11-29 Completed [facility] 00:00:00 [facility] Influenza Virus 2013-11-29 Completed [facility] Vaccine (3+ yrs) 00:00:00 [facility] HPV 2013-11-29 Completed [facility] 00:00:00 [facility] Influenza Virus 2013-11-29 Completed [facility] Vaccine (3+ yrs) 00:00:00 [facility] HPV 2013-11-29 Completed [facility] 00:00:00 [facility] Influenza Virus 2013-11-29 Completed [facility] Vaccine (3+ yrs) 00:00:00 [facility] HPV 2013-11-29 Completed [facility] 00:00:00 [facility] Influenza Virus 2013-11-29 Completed [facility] Vaccine (3+ yrs) 00:00:00 [facility] HPV 2013-11-29 Completed [facility] 00:00:00 [facility] Influenza Virus 2013-11-29 Completed [facility] Vaccine (3+ yrs) 00:00:00 [facility] HPV 2013-11-29 Completed [facility] 00:00:00 [facility] Influenza Virus 2013-11-29 Completed [facility] Vaccine (3+ yrs) 00:00:00 [facility] HPV 2013-11-29 Completed [facility] 00:00:00 [facility] Influenza Virus 2013-11-29 Completed [facility] Vaccine (3+ yrs) 00:00:00 [facility] HPV 2013-11-29 Completed [facility] 00:00:00 [facility] Influenza Virus 2013-11-29 Completed [facility] Vaccine (3+ yrs) 00:00:00 [facility] HPV 2013-11-29 Completed [facility] 00:00:00 [facility] Influenza Virus 2013-11-29 Completed [facility] Vaccine (3+ yrs) 00:00:00 [facility] HPV 2013-11-29 Completed [facility] 00:00:00 [facility] Influenza Virus 2013-11-29 Completed [facility] Vaccine (3+ yrs) 00:00:00 [facility] HPV 2013-11-29 Completed [facility] 00:00:00 [facility] Influenza Virus 2013-11-29 Completed [facility] Vaccine (3+ yrs) 00:00:00 [facility] HPV 2013-11-29 Completed [facility] 00:00:00 [facility] Influenza Virus 2013-11-29 Completed [facility] Vaccine (3+ yrs) 00:00:00 [facility] HPV 2013-11-29 Completed [facility] 00:00:00 [facility] Influenza Virus 2013-11-29 Completed [facility] Vaccine (3+ yrs) 00:00:00 [facility] HPV 2013-11-29 Completed [facility] 00:00:00 [facility] Influenza Virus 2013-11-29 Completed [facility] Vaccine (3+ yrs) 00:00:00 [facility] HPV 2013-11-29 Completed [facility] 00:00:00 [facility] Influenza Virus 2013-11-29 Completed [facility] Vaccine (3+ yrs) 00:00:00 [facility] HPV 2013-11-29 Completed [facility] 00:00:00 [facility] Influenza Virus 2013-11-29 Completed [facility] Vaccine (3+ yrs) 00:00:00 [facility] HPV 2013-11-29 Completed [facility] 00:00:00 [facility] Influenza Virus 2013-11-29 Completed [facility] Vaccine (3+ yrs) 00:00:00 [facility] HPV 2013-11-29 Completed [facility] 00:00:00 [facility] Influenza Virus 2013-11-29 Completed [facility] Vaccine (3+ yrs) 00:00:00 [facility] Influenza Virus 2013-11-29 Completed [facility] Vaccine (3+ yrs) 00:00:00 [facility] HPV 2013-11-29 Completed [facility] 00:00:00 [facility] HPV 2013-11-29 Completed [facility] 00:00:00 [facility] Influenza Virus 2013-11-29 Completed [facility] Vaccine (3+ yrs) 00:00:00 [facility] HPV 2013-11-29 Completed [facility] 00:00:00 [facility] Influenza Virus 2013-11-29 Completed [facility] Vaccine (3+ yrs) 00:00:00 [facility] HPV 2013-11-29 Completed [facility] 00:00:00 [facility] Influenza Virus 2013-11-29 Completed [facility] Vaccine (3+ yrs) 00:00:00 [facility] HPV 2013-11-29 Completed [facility] 00:00:00 [facility] Influenza Virus 2013-11-29 Completed [facility] Vaccine (3+ yrs) 00:00:00 [facility] HPV 2013-11-29 Completed [facility] 00:00:00 [facility] Influenza Virus 2013-11-29 Completed [facility] Vaccine (3+ yrs) 00:00:00 [facility] HPV 2013-11-29 Completed [facility] 00:00:00 [facility] Influenza Virus 2013-11-29 Completed [facility] Vaccine (3+ yrs) 00:00:00 [facility] HPV 2013-11-29 Completed [facility] 00:00:00 [facility] Influenza Virus 2013-11-29 Completed [facility] Vaccine (3+ yrs) 00:00:00 [facility] HPV 2013-11-29 Completed [facility] 00:00:00 [facility] Influenza Virus 2013-11-29 Completed [facility] Vaccine (3+ yrs) 00:00:00 [facility] HPV 2013-11-29 Completed [facility] 00:00:00 [facility] Influenza Virus 2013-11-29 Completed [facility] Vaccine (3+ yrs) 00:00:00 [facility] Influenza Virus 2013-11-29 Completed [facility] Vaccine (3+ yrs) 00:00:00 [facility] HPV 2013-11-29 Completed [facility] 00:00:00 [facility] HPV 2013-11-29 Completed [facility] 00:00:00 [facility] Influenza Virus 2013-11-29 Completed [facility] Vaccine (3+ yrs) 00:00:00 [facility] HPV 2013-11-29 Completed [facility] 00:00:00 [facility] Influenza Virus 2013-11-29 Completed [facility] Vaccine (3+ yrs) 00:00:00 [facility] HPV 2013-11-29 Completed [facility] 00:00:00 [facility] Influenza Virus 2013-11-29 Completed [facility] Vaccine (3+ yrs) 00:00:00 [facility] HPV 2013-11-29 Completed [facility] 00:00:00 [facility] Influenza Virus 2013-11-29 Completed [facility] Vaccine (3+ yrs) 00:00:00 [facility] HPV 2013-11-29 Completed [facility] 00:00:00 [facility] Influenza Virus 2013-11-29 Completed [facility] Vaccine (3+ yrs) 00:00:00 [facility] HPV 2013-11-29 Completed [facility] 00:00:00 [facility] Influenza Virus 2013-11-29 Completed [facility] Vaccine (3+ yrs) 00:00:00 [facility] HPV 2013-11-29 Completed [facility] 00:00:00 [facility] Influenza Virus 2013-11-29 Completed [facility] Vaccine (3+ yrs) 00:00:00 [facility] HPV 2013-11-29 Completed [facility] 00:00:00 [facility] Influenza Virus 2013-11-29 Completed [facility] Vaccine (3+ yrs) 00:00:00 [facility] HPV 2013-11-29 Completed [facility] 00:00:00 [facility] Influenza Virus 2013-11-29 Completed [facility] Vaccine (3+ yrs) 00:00:00 [facility] HPV 2013-11-29 Completed [facility] 00:00:00 [facility] Influenza Virus 2013-11-29 Completed [facility] Vaccine (3+ yrs) 00:00:00 [facility] HPV 2013-11-29 Completed [facility] 00:00:00 [facility] Influenza Virus 2013-11-29 Completed [facility] Vaccine (3+ yrs) 00:00:00 [facility] HPV 2013-11-29 Completed [facility] 00:00:00 [facility] Influenza Virus 2013-11-29 Completed [facility] Vaccine (3+ yrs) 00:00:00 [facility] HPV 2013-11-29 Completed [facility] 00:00:00 [facility] Influenza Virus 2013-11-29 Completed [facility] Vaccine (3+ yrs) 00:00:00 [facility] HPV 2013-11-29 Completed [facility] 00:00:00 [facility] Influenza Virus 2013-11-29 Completed [facility] Vaccine (3+ yrs) 00:00:00 [facility] HPV 2013-11-29 Completed [facility] 00:00:00 [facility] Influenza Virus 2013-11-29 Completed [facility] Vaccine (3+ yrs) 00:00:00 [facility] HPV 2013-11-29 Completed [facility] 00:00:00 [facility] Influenza Virus 2013-11-29 Completed [facility] Vaccine (3+ yrs) 00:00:00 [facility] HPV 2013-11-29 Completed [facility] 00:00:00 [facility] Influenza Virus 2013-11-29 Completed [facility] Vaccine (3+ yrs) 00:00:00 [facility] HPV 2013-11-29 Completed [facility] 00:00:00 [facility] Influenza Virus 2013-11-29 Completed [facility] Vaccine (3+ yrs) 00:00:00 [facility] HPV 2013-11-29 Completed [facility] 00:00:00 [facility] Influenza Virus 2013-11-29 Completed [facility] Vaccine (3+ yrs) 00:00:00 [facility] HPV 2013-11-29 Completed [facility] 00:00:00 [facility] Influenza Virus 2013-11-29 Completed [facility] Vaccine (3+ yrs) 00:00:00 [facility] HPV 2013-11-29 Completed [facility] 00:00:00 [facility] Influenza Virus 2013-11-29 Completed [facility] Vaccine (3+ yrs) 00:00:00 [facility] HPV 2013-11-29 Completed [facility] 00:00:00 [facility] Influenza Virus 2013-11-29 Completed [facility] Vaccine (3+ yrs) 00:00:00 [facility] HPV 2013-11-29 Completed [facility] 00:00:00 [facility] Influenza Virus 2013-11-29 Completed [facility] Vaccine (3+ yrs) 00:00:00 [facility] HPV 2013-11-29 Completed [facility] 00:00:00 [facility] Influenza Virus 2013-11-29 Completed [facility] Vaccine (3+ yrs) 00:00:00 [facility] HPV 2013-11-29 Completed [facility] 00:00:00 [facility] Influenza Virus 2013-11-29 Completed [facility] Vaccine (3+ yrs) 00:00:00 [facility] HPV 2013-11-29 Completed [facility] 00:00:00 [facility] Influenza Virus 2013-11-29 Completed [facility] Vaccine (3+ yrs) 00:00:00 [facility] HPV 2013-11-29 Completed [facility] 00:00:00 [facility] Influenza Virus 2013-11-29 Completed [facility] Vaccine (3+ yrs) 00:00:00 [facility] HPV 2013-11-29 Completed [facility] 00:00:00 [facility] Influenza Virus 2013-11-29 Completed [facility] Vaccine (3+ yrs) 00:00:00 [facility] HPV 2013-11-29 Completed [facility] 00:00:00 [facility] Influenza Virus 2013-11-29 Completed [facility] Vaccine (3+ yrs) 00:00:00 [facility] HPV 2013-11-29 Completed [facility] 00:00:00 [facility] Influenza Virus 2013-11-29 Completed [facility] Vaccine (3+ yrs) 00:00:00 [facility] HPV 2013-11-29 Completed [facility] 00:00:00 [facility] Influenza Virus 2013-11-29 Completed [facility] Vaccine (3+ yrs) 00:00:00 [facility] HPV 2013-11-29 Completed [facility] 00:00:00 [facility] Influenza Virus 2013-11-29 Completed [facility] Vaccine (3+ yrs) 00:00:00 [facility] HPV 2013-11-29 Completed [facility] 00:00:00 [facility] Influenza Virus 2013-11-29 Completed [facility] Vaccine (3+ yrs) 00:00:00 [facility] HPV 2013-11-29 Completed [facility] 00:00:00 [facility] Influenza Virus 2013-11-29 Completed [facility] Vaccine (3+ yrs) 00:00:00 [facility] HPV 2013-11-29 Completed [facility] 00:00:00 [facility] Influenza Virus 2013-11-29 Completed [facility] Vaccine (3+ yrs) 00:00:00 [facility] HPV 2013-11-29 Completed [facility] 00:00:00 [facility] Influenza Virus 2013-11-29 Completed [facility] Vaccine (3+ yrs) 00:00:00 [facility] HPV 2013-11-29 Completed [facility] 00:00:00 [facility] Influenza Virus 2013-11-29 Completed [facility] Vaccine (3+ yrs) 00:00:00 [facility] Influenza Virus 2013-11-29 Completed [facility] Vaccine (3+ yrs) 00:00:00 [facility] HPV 2013-11-29 Completed [facility] 00:00:00 [facility] HPV 2013-11-29 Completed [facility] 00:00:00 [facility] Influenza Virus 2013-11-29 Completed [facility] Vaccine (3+ yrs) 00:00:00 [facility] HPV 2013-11-29 Completed [facility] 00:00:00 [facility] Influenza Virus 2013-11-29 Completed [facility] Vaccine (3+ yrs) 00:00:00 [facility] HPV 2013-11-29 Completed [facility] 00:00:00 [facility] Influenza Virus 2013-11-29 Completed [facility] Vaccine (3+ yrs) 00:00:00 [facility] HPV 2013-11-29 Completed [facility] 00:00:00 [facility] Influenza Virus 2013-11-29 Completed [facility] Vaccine (3+ yrs) 00:00:00 [facility] HPV 2013-11-29 Completed [facility] 00:00:00 [facility] Influenza Virus 2013-11-29 Completed [facility] Vaccine (3+ yrs) 00:00:00 [facility] HPV 2013-11-29 Completed [facility] 00:00:00 [facility] Influenza Virus 2013-11-29 Completed [facility] Vaccine (3+ yrs) 00:00:00 [facility] HPV 2013-11-29 Completed [facility] 00:00:00 [facility] Influenza Virus 2013-11-29 Completed [facility] Vaccine (3+ yrs) 00:00:00 [facility] HPV 2013-11-29 Completed [facility] 00:00:00 [facility] Influenza Virus 2013-11-29 Completed [facility] Vaccine (3+ yrs) 00:00:00 [facility] HPV 2013-11-29 Completed [facility] 00:00:00 [facility] Influenza Virus 2013-11-29 Completed [facility] Vaccine (3+ yrs) 00:00:00 [facility] HPV 2013-11-29 Completed [facility] 00:00:00 [facility] Influenza Virus 2013-11-29 Completed [facility] Vaccine (3+ yrs) 00:00:00 [facility] HPV 2013-11-29 Completed [facility] 00:00:00 [facility] Influenza Virus 2013-11-29 Completed [facility] Vaccine (3+ yrs) 00:00:00 [facility] HPV 2013-11-29 Completed [facility] 00:00:00 [facility] Influenza Virus 2013-11-29 Completed [facility] Vaccine (3+ yrs) 00:00:00 [facility] HPV 2013-11-29 Completed [facility] 00:00:00 [facility] Influenza Virus 2013-11-29 Completed [facility] Vaccine (3+ yrs) 00:00:00 [facility] HPV 2013-11-29 Completed [facility] 00:00:00 [facility] Influenza Virus 2013-11-29 Completed [facility] Vaccine (3+ yrs) 00:00:00 [facility] HPV 2013-11-29 Completed [facility] 00:00:00 [facility] Influenza Virus 2013-11-29 Completed [facility] Vaccine (3+ yrs) 00:00:00 [facility] HPV 2013-11-29 Completed [facility] 00:00:00 [facility] Influenza Virus 2013-11-29 Completed [facility] Vaccine (3+ yrs) 00:00:00 [facility] HPV 2013-11-29 Completed [facility] 00:00:00 [facility] Influenza Virus 2013-11-29 Completed [facility] Vaccine (3+ yrs) 00:00:00 [facility] HPV 2013-11-29 Completed [facility] 00:00:00 [facility] Influenza Virus 2013-11-29 Completed [facility] Vaccine (3+ yrs) 00:00:00 [facility] Influenza Virus 2013-11-29 Completed [facility] Vaccine (3+ yrs) 00:00:00 [facility] HPV 2013-11-29 Completed [facility] 00:00:00 [facility] HPV 2013-11-29 Completed [facility] 00:00:00 [facility] Influenza Virus 2013-11-29 Completed [facility] Vaccine (3+ yrs) 00:00:00 [facility] HPV 2013-11-29 Completed [facility] 00:00:00 [facility] Influenza Virus 2013-11-29 Completed [facility] Vaccine (3+ yrs) 00:00:00 [facility] HPV 2013-11-29 Completed [facility] 00:00:00 [facility] Influenza Virus 2013-11-29 Completed [facility] Vaccine (3+ yrs) 00:00:00 [facility] HPV 2013-11-29 Completed [facility] 00:00:00 [facility] Influenza Virus 2013-11-29 Completed [facility] Vaccine (3+ yrs) 00:00:00 [facility] HPV 2013-11-29 Completed [facility] 00:00:00 [facility] HPV 2013-07-28 Completed [facility] 00:00:00 [facility] HPV 2013-07-28 Completed [facility] 00:00:00 [facility] HPV 2013-07-28 Completed [facility] 00:00:00 [facility] HPV 2013-07-28 Completed [facility] 00:00:00 [facility] HPV 2013-07-28 Completed [facility] 00:00:00 [facility] HPV 2013-07-28 Completed [facility] 00:00:00 [facility] HPV 2013-07-28 Completed [facility] 00:00:00 [facility] HPV 2013-07-28 Completed [facility] 00:00:00 [facility] HPV 2013-07-28 Completed [facility] 00:00:00 [facility] HPV 2013-07-28 Completed [facility] 00:00:00 [facility] HPV 2013-07-28 Completed [facility] 00:00:00 [facility] HPV 2013-07-28 Completed [facility] 00:00:00 [facility] HPV 2013-07-28 Completed [facility] 00:00:00 [facility] HPV 2013-07-28 Completed [facility] 00:00:00 [facility] HPV 2013-07-28 Completed [facility] 00:00:00 [facility] HPV 2013-07-28 Completed [facility] 00:00:00 [facility] HPV 2013-07-28 Completed [facility] 00:00:00 [facility] HPV 2013-07-28 Completed [facility] 00:00:00 [facility] HPV 2013-07-28 Completed [facility] 00:00:00 [facility] HPV 2013-07-28 Completed [facility] 00:00:00 [facility] HPV 2013-07-28 Completed [facility] 00:00:00 [facility] HPV 2013-07-28 Completed [facility] 00:00:00 [facility] HPV 2013-07-28 Completed [facility] 00:00:00 [facility] HPV 2013-07-28 Completed [facility] 00:00:00 [facility] HPV 2013-07-28 Completed [facility] 00:00:00 [facility] HPV 2013-07-28 Completed [facility] 00:00:00 [facility] HPV 2013-07-28 Completed [facility] 00:00:00 [facility] HPV 2013-07-28 Completed [facility] 00:00:00 [facility] HPV 2013-07-28 Completed [facility] 00:00:00 [facility] HPV 2013-07-28 Completed [facility] 00:00:00 [facility] HPV 2013-07-28 Completed [facility] 00:00:00 [facility] HPV 2013-07-28 Completed [facility] 00:00:00 [facility] HPV 2013-07-28 Completed [facility] 00:00:00 [facility] HPV 2013-07-28 Completed [facility] 00:00:00 [facility] HPV 2013-07-28 Completed [facility] 00:00:00 [facility] HPV 2013-07-28 Completed [facility] 00:00:00 [facility] HPV 2013-07-28 Completed [facility] 00:00:00 [facility] HPV 2013-07-28 Completed [facility] 00:00:00 [facility] HPV 2013-07-28 Completed [facility] 00:00:00 [facility] HPV 2013-07-28 Completed [facility] 00:00:00 [facility] HPV 2013-07-28 Completed [facility] 00:00:00 [facility] HPV 2013-07-28 Completed [facility] 00:00:00 [facility] HPV 2013-07-28 Completed [facility] 00:00:00 [facility] HPV 2013-07-28 Completed [facility] 00:00:00 [facility] HPV 2013-07-28 Completed [facility] 00:00:00 [facility] HPV 2013-07-28 Completed [facility] 00:00:00 [facility] HPV 2013-07-28 Completed [facility] 00:00:00 [facility] HPV 2013-07-28 Completed [facility] 00[facility]:00 [place] [facility] 2013-07-28 Completed [facility] 00[facility] HPV 2013-07-28 Completed [facility] 00[facility]00:00 [facility] HPV 2013-07-28 Completed [facility] 00[facility]00:00 [facility] HPV 2013-07-28 Completed [facility] 00:00:00 [facility] HPV 2013-07-28 Completed [facility] 00:00:00 [facility] HPV 2013-07-28 Completed [facility] 00:00:00 [facility] HPV 2013-07-28 Completed [facility] 00[facility]00:00 [facility] HPV 2013-07-28 Completed [facility] 00:00:00 [facility] HPV 2013-07-28 Completed [facility] 00:00:00 [facility] HPV 2013-07-28 Completed [facility] 00[facility]00:00 [facility] HPV 2013-07-28 Completed [facility] 00:00:00 [facility] HPV 2013-07-28 Completed [facility] 00[facility]00:00 [facility] HPV 2013-07-28 Completed [facility] 00:00:00 [facility] HPV 2013-07-28 Completed [facility] 00:00:00 [facility] HPV 2013-07-28 Completed [facility] 00:00:00 [facility] HPV 2013-07-28 Completed [facility] 00[facility]00:00 [facility] HPV 2013-07-28 Completed [facility] 00:00:00 [facility] HPV 2013-07-28 Completed [facility] 00:00:00 [facility] HPV 2013-07-28 Completed [facility] 00:00:00 [facility] HPV 2013-07-28 Completed [facility] 00:00:00 [facility] HPV 2013-07-28 Completed [facility] 00[facility]00:00 [facility] HPV 2013-07-28 Completed [facility] 00:00:00 [facility] HPV 2013-07-28 Completed [facility] 00:00:00 [facility] HPV 2013-07-28 Completed [facility] 00:00:00 [facility] HPV 2013-07-28 Completed [facility] 00:00:00 [facility] HPV 2013-07-28 Completed [facility] 00:00:00 [facility] HPV 2013-07-28 Completed [facility] 00:00:00 [facility] HPV 2013-07-28 Completed [facility] 00:00:00 [facility] HPV 2013-07-28 Completed [facility] 00:00:00 [facility] HPV 2013-07-28 Completed [facility] 00:00:00 [facility] HPV 2013-07-28 Completed [facility] 00:00:00 [facility] HPV 2013-07-28 Completed [facility] 00:00:00 [facility] HPV 2013-07-28 Completed [facility] 00:00:00 [facility] HPV 2013-07-28 Completed [facility] 00:00:00 [facility] HPV 2013-07-28 Completed [facility] 00:00:00 [facility] HPV 2013-07-28 Completed [facility] 00:00:00 [facility] HPV 2013-07-28 Completed [facility] 00:00:00 [facility] HPV 2013-07-28 Completed [facility] 00:00:00 [facility] HPV 2013-07-28 Completed [facility] 00:00:00 [facility] HPV 2013-07-28 Completed [facility] 00:00:00 [facility] HPV 2013-07-28 Completed [facility] 00:00:00 [facility] HPV 2013-07-28 Completed [facility] 00:00:00 [facility] HPV 2013-07-28 Completed [facility] 00:00:00 [facility] HPV 2013-07-28 Completed [facility] 00:00:00 [facility] HPV 2013-07-28 Completed [facility] 00:00:00 [facility] HPV 2013-07-28 Completed [facility] 00:00:00 [facility] HPV 2013-07-28 Completed [facility] 00:00:00 [facility] HPV 2013-07-28 Completed [facility] 00:00:00 [facility] HPV 2013-07-28 Completed [facility] 00:00:00 [facility] HPV 2013-07-28 Completed [facility] 00:00:00 [facility] HPV 2013-07-28 Completed [facility] 00:00:00 [facility] HPV 2013-07-28 Completed [facility] 00:00:00 [facility] HPV 2013-07-28 Completed [facility] 00:00:00 [facility] HPV 2013-07-28 Completed [facility] 00:00:00 [facility] HPV 2013-07-28 Completed [facility] 00:00:00 [facility] HPV 2013-07-28 Completed [facility] 00:00:00 [facility] HPV 2013-07-28 Completed [facility] 00:00:00 [facility] HPV 2013-07-28 Completed [facility] 00:00:00 [facility] HPV 2013-07-28 Completed [facility] 00:00:00 [facility] HPV 2013-07-28 Completed [facility] 00:00:00 [facility] HPV 2013-07-28 Completed [facility] 00:00:00 [facility] HPV 2013-07-28 Completed [facility] 00:00:00 [facility] HPV 2013-07-28 Completed [facility] 00:00:00 [facility] HPV 2013-07-28 Completed [facility] 00:00:00 [facility] HPV 2013-07-28 Completed [facility] 00:00:00 [facility] HPV 2013-07-28 Completed [facility] 00:00:00 [facility] HPV 2013-07-28 Completed [facility] 00:00:00 [facility] HPV 2013-07-28 Completed [facility] 00:00:00 [facility] HPV 2013-07-28 Completed [facility] 00:00:00 [facility] HPV 2013-07-28 Completed [facility] 00:00:00 [facility] HPV 2013-07-28 Completed [facility] 00:00:00 [facility] HPV 2013-07-28 Completed [facility] 00:00:00 [facility] HPV 2013-07-28 Completed [facility] 00:00:00 [facility] HPV 2013-07-28 Completed [facility] 00:00:00 [facility] HPV 2013-07-28 Completed [facility] 00:00:00 [facility] HPV 2013-07-28 Completed [facility] 00:00:00 [facility] HPV 2013-07-28 Completed [facility] 00[facility]00:00 [facility] HPV 2013-07-28 Completed [facility] 00:00:00 [facility] HPV 2013-07-28 Completed [facility] 00:00:00 [facility] HPV 2013-07-28 Completed [facility] 00:00:00 [facility] Tdap 2012-06-16 Completed [facility] 00:00:00 [facility] Meningococcal 2012-06-16 Completed [facility] Vaccine 00:00:00 [facility] Tdap 2012-06-16 Completed [facility] 00:00:00 [facility] Meningococcal 2012-06-16 Completed [facility] Vaccine 00:00:00 [facility] Meningococcal 2012-06-16 Completed [facility] Vaccine 00:00:00 [facility] Tdap 2012-06-16 Completed [facility] 00:00:00 [facility] Meningococcal 2012-06-16 Completed [facility] Vaccine 00:00:00 [facility] Tdap 2012-06-16 Completed [facility] 00:00:00 [facility] TDAP 2012-06-16 Completed [facility] 00[facility]00:00 [facility] Meningococcal 2012-06-16 Completed [facility] Vaccine 00:00:00 [facility] Tdap 2012-06-16 Completed [facility] 00:00:00 [facility] Meningococcal 2012-06-16 Completed [facility] Vaccine 00:00:00 [facility] Tdap 2012-06-16 Completed [facility] 00:00:00 [facility] Meningococcal 2012-06-16 Completed [facility] Vaccine 00:00:00 [facility] Tdap 2012-06-16 Completed [facility] 00:00:00 [facility] Meningococcal 2012-06-16 Completed [facility] Vaccine 00:00:00 [facility] Tdap 2012-06-16 Completed [facility] 00:00:00 [facility] Meningococcal 2012-06-16 Completed [facility] Vaccine 00:00:00 [facility] Tdap 2012-06-16 Completed [facility] 00:00:00 [facility] Meningococcal 2012-06-16 Completed [facility] Vaccine 00:00:00 [facility] Tdap 2012-06-16 Completed [facility] 00:00:00 [facility] Meningococcal 2012-06-16 Completed [facility] Vaccine 00:00:00 [facility] Tdap 2012-06-16 Completed [facility] 00:00:00 [facility] Meningococcal 2012-06-16 Completed [facility] Vaccine 00:00:00 [facility] Tdap 2012-06-16 Completed [facility] 00:00:00 [facility] Meningococcal 2012-06-16 Completed [facility] Vaccine 00:00:00 [facility] Tdap 2012-06-16 Completed [facility] 00:00:00 [facility] Meningococcal 2012-06-16 Completed [facility] Vaccine 00:00:00 [facility] Tdap 2012-06-16 Completed [facility] 00:00:00 [facility] Meningococcal 2012-06-16 Completed [facility] Vaccine 00:00:00 [facility] Meningococcal 2012-06-16 Completed [facility] Vaccine 00:00:00 [facility] Tdap 2012-06-16 Completed [facility] 00:00:00 [facility] Meningococcal 2012-06-16 Completed [facility] Vaccine 00:00:00 [facility] Tdap 2012-06-16 Completed [facility] 00:00:00 [facility] TDAP 2012-06-16 Completed [facility] 00:00:00 [facility] Meningococcal 2012-06-16 Completed [facility] Vaccine 00:00:00 [facility] Tdap 2012-06-16 Completed [facility] 00:00:00 [facility] Meningococcal 2012-06-16 Completed [facility] Vaccine 00:00:00 [facility] Tdap 2012-06-16 Completed [facility] 00:00:00 [facility] Meningococcal 2012-06-16 Completed [facility] Vaccine 00:00:00 [facility] Tdap 2012-06-16 Completed [facility] 00:00:00 [facility] Meningococcal 2012-06-16 Completed [facility] Vaccine 00:00:00 [facility] Tdap 2012-06-16 Completed [facility] 00:00:00 [facility] Meningococcal 2012-06-16 Completed [facility] Vaccine 00:00:00 [facility] Tdap 2012-06-16 Completed [facility] 00:00:00 [facility] Meningococcal 2012-06-16 Completed [facility] Vaccine 00:00:00 [facility] Tdap 2012-06-16 Completed [facility] 00:00:00 [facility] Meningococcal 2012-06-16 Completed [facility] Vaccine 00:00:00 [facility] Tdap 2012-06-16 Completed [facility] 00:00:00 [facility] Meningococcal 2012-06-16 Completed [facility] Vaccine 00:00:00 [facility] Tdap 2012-06-16 Completed [facility] 00:00:00 [facility] Meningococcal 2012-06-16 Completed [facility] Vaccine 00:00:00 [facility] Meningococcal 2012-06-16 Completed [facility] Vaccine 00:00:00 [facility] Tdap 2012-06-16 Completed [facility] 00:00:00 [facility] Meningococcal 2012-06-16 Completed [facility] Vaccine 00:00:00 [facility] Tdap 2012-06-16 Completed [facility] 00:00:00 [facility] Meningococcal 2012-06-16 Completed [facility] Vaccine 00:00:00 [facility] TDAP 2012-06-16 Completed [facility] 00:00:00 [facility] Tdap 2012-06-16 Completed [facility] 00:00:00 [facility] Meningococcal 2012-06-16 Completed [facility] Vaccine 00:00:00 [facility] Tdap 2012-06-16 Completed [facility] 00:00:00 [facility] Meningococcal 2012-06-16 Completed [facility] Vaccine 00:00:00 [facility] Tdap 2012-06-16 Completed [facility] 00:00:00 [facility] Meningococcal 2012-06-16 Completed [facility] Vaccine 00:00:00 [facility] Tdap 2012-06-16 Completed [facility] 00:00:00 [facility] Meningococcal 2012-06-16 Completed [facility] Vaccine 00:00:00 [facility] Tdap 2012-06-16 Completed [facility] 00:00:00 [facility] Meningococcal 2012-06-16 Completed [facility] Vaccine 00:00:00 [facility] Tdap 2012-06-16 Completed [facility] 00[facility]00:00 [facility] Meningococcal 2012-06-16 Completed [facility] Vaccine 00:00:00 [facility] Meningococcal 2012-06-16 Completed [facility] Vaccine 00:00:00 [facility] TDAP 2012-06-16 Completed [facility] 00:00:00 [facility] Meningococcal 2012-06-16 Completed [facility] Vaccine 00:00:00 [facility] TDAP 2012-06-16 Completed [facility] 00:00:00 [facility] Meningococcal 2012-06-16 Completed [facility] Vaccine 00:00:00 [facility] Tdap 2012-06-16 Completed [facility] 00:00:00 [facility] TDAP 2012-06-16 Completed [facility] 00[facility]00:00 [facility] Meningococcal 2012-06-16 Completed [facility] Vaccine 00:00:00 [facility] TDAP 2012-06-16 Completed [facility] 00:00:00 [facility] Meningococcal 2012-06-16 Completed [facility] Vaccine 00:00:00 [facility] TDAP 2012-06-16 Completed [facility] 00:00:00 [facility] Meningococcal 2012-06-16 Completed [facility] Vaccine 00:00:00 [facility] TDAP 2012-06-16 Completed [facility] 00:00:00 [facility] Meningococcal 2012-06-16 Completed [facility] Vaccine 00:00:00 [facility] TDAP 2012-06-16 Completed [facility] 00:00:00 [facility] Meningococcal 2012-06-16 Completed [facility] Vaccine 00:00:00 [facility] TDAP 2012-06-16 Completed [facility] 00:00:00 [facility] Meningococcal 2012-06-16 Completed [facility] Vaccine 00:00:00 [facility] TDAP 2012-06-16 Completed [facility] 00:00:00 [facility] Meningococcal 2012-06-16 Completed [facility] Vaccine 00:00:00 [facility] Meningococcal 2012-06-16 Completed [facility] Vaccine 00:00:00 [facility] TDAP 2012-06-16 Completed [facility] 00:00:00 [facility] Meningococcal 2012-06-16 Completed [facility] Vaccine 00:00:00 [facility] TDAP 2012-06-16 Completed [facility] 00[facility]00:00 [facility] Tdap 2012-06-16 Completed [facility] 00:00:00 [facility] Meningococcal 2012-06-16 Completed [facility] Vaccine 00:00:00 [facility] TDAP 2012-06-16 Completed [facility] 00:00:00 [facility] Meningococcal 2012-06-16 Completed [facility] Vaccine 00:00:00 [facility] TDAP 2012-06-16 Completed [facility] 00:00:00 [facility] Meningococcal 2012-06-16 Completed [facility] Vaccine 00:00:00 [facility] TDAP 2012-06-16 Completed [facility] 00:00:00 [facility] Meningococcal 2012-06-16 Completed [facility] Vaccine 00:00:00 [facility] TDAP 2012-06-16 Completed [facility] 00:00:00 [facility] Meningococcal 2012-06-16 Completed [facility] Vaccine 00:00:00 [facility] TDAP 2012-06-16 Completed [facility] 00:00:00 [facility] Meningococcal 2012-06-16 Completed [facility] Vaccine 00:00:00 [facility] Meningococcal 2012-06-16 Completed [facility] Vaccine 00:00:00 [facility] TDAP 2012-06-16 Completed [facility] 00:00:00 [facility] Meningococcal 2012-06-16 Completed [facility] Vaccine 00:00:00 [facility] TDAP 2012-06-16 Completed [facility] 00:00:00 [facility] Tdap 2012-06-16 Completed [facility] 00:00:00 [facility] Meningococcal 2012-06-16 Completed [facility] Vaccine 00:00:00 [facility] TDAP 2012-06-16 Completed [facility] 00:00:00 [facility] Meningococcal 2012-06-16 Completed [facility] Vaccine 00:00:00 [facility] TDAP 2012-06-16 Completed [facility] 00:00:00 [facility] Meningococcal 2012-06-16 Completed [facility] Vaccine 00:00:00 [facility] TDAP 2012-06-16 Completed [facility] 00:00:00 [facility] Meningococcal 2012-06-16 Completed [facility] Vaccine 00:00:00 [facility] TDAP 2012-06-16 Completed [facility] 00:00:00 [facility] Meningococcal 2012-06-16 Completed [facility] Vaccine 00:00:00 [facility] TDAP 2012-06-16 Completed [facility] 00:00:00 [facility] Meningococcal 2012-06-16 Completed [facility] Vaccine 00:00:00 [facility] TDAP 2012-06-16 Completed [facility] 00:00:00 [facility] Meningococcal 2012-06-16 Completed [facility] Vaccine 00:00:00 [facility] TDAP 2012-06-16 Completed [facility] 00:00:00 [facility] Meningococcal 2012-06-16 Completed [facility] Vaccine 00:00:00 [facility] Meningococcal 2012-06-16 Completed [facility] Vaccine 00:00:00 [facility] TDAP 2012-06-16 Completed [facility] 00:00:00 [facility] Meningococcal 2012-06-16 Completed [facility] Vaccine 00:00:00 [facility] TDAP 2012-06-16 Completed [facility] 00:00:00 [facility] Tdap 2012-06-16 Completed [facility] 00:00:00 [facility] Meningococcal 2012-06-16 Completed [facility] Vaccine 00:00:00 [facility] TDAP 2012-06-16 Completed [facility] 00:00:00 [facility] Meningococcal 2012-06-16 Completed [facility] Vaccine 00:00:00 [facility] TDAP 2012-06-16 Completed [facility] 00:00:00 [facility] Meningococcal 2012-06-16 Completed [facility] Vaccine 00:00:00 [facility] TDAP 2012-06-16 Completed [facility] 00:00:00 [facility] Meningococcal 2012-06-16 Completed [facility] Vaccine 00:00:00 [facility] TDAP 2012-06-16 Completed [facility] 00:00:00 [facility] Meningococcal 2012-06-16 Completed [facility] Vaccine 00:00:00 [facility] TDAP 2012-06-16 Completed [facility] 00:00:00 [facility] Meningococcal 2012-06-16 Completed [facility] Vaccine 00:00:00 [facility] TDAP 2012-06-16 Completed [facility] 00:00:00 [facility] Meningococcal 2012-06-16 Completed [facility] Vaccine 00:00:00 [facility] TDAP 2012-06-16 Completed [facility] 00:00:00 [facility] Meningococcal 2012-06-16 Completed [facility] Vaccine 00:00:00 [facility] Meningococcal 2012-06-16 Completed [facility] Vaccine 00:00:00 [facility] TDAP 2012-06-16 Completed [facility] 00:00:00 [facility] Meningococcal 2012-06-16 Completed [facility] Vaccine 00:00:00 [facility] TDAP 2012-06-16 Completed [facility] 00:00:00 [facility] Tdap 2012-06-16 Completed [facility] 00:00:00 [facility] Meningococcal 2012-06-16 Completed [facility] Vaccine 00:00:00 [facility] TDAP 2012-06-16 Completed [facility] 00:00:00 [facility] Meningococcal 2012-06-16 Completed [facility] Vaccine 00:00:00 [facility] TDAP 2012-06-16 Completed [facility] 00:00:00 [facility] Meningococcal 2012-06-16 Completed [facility] Vaccine 00:00:00 [facility] TDAP 2012-06-16 Completed [facility] 00:00:00 [facility] Meningococcal 2012-06-16 Completed [facility] Vaccine 00:00:00 [facility] TDAP 2012-06-16 Completed [facility] 00:00:00 [facility] Meningococcal 2012-06-16 Completed [facility] Vaccine 00:00:00 [facility] TDAP 2012-06-16 Completed [facility] 00[facility]00:00 [facility] Meningococcal 2012-06-16 Completed [facility] Vaccine 00:00:00 [facility] TDAP 2012-06-16 Completed [facility] 00[facility]00:00 [facility] Meningococcal 2012-06-16 Completed [facility] Vaccine 00:00:00 [facility] Meningococcal 2012-06-16 Completed [facility] Vaccine 00:00:00 [facility] TDAP 2012-06-16 Completed [facility] 00:00:00 [facility] Meningococcal 2012-06-16 Completed [facility] Vaccine 00:00:00 [facility] TDAP 2012-06-16 Completed [facility] 00:00:00 [facility] Tdap 2012-06-16 Completed [facility] 00:00:00 [facility] Meningococcal 2012-06-16 Completed [facility] Vaccine 00:00:00 [facility] TDAP 2012-06-16 Completed [facility] 00:00:00 [facility] Meningococcal 2012-06-16 Completed [facility] Vaccine 00:00:00 [facility] TDAP 2012-06-16 Completed [facility] 00:00:00 [facility] Meningococcal 2012-06-16 Completed [facility] Vaccine 00:00:00 [facility] TDAP 2012-06-16 Completed [facility] 00:00:00 [facility] Meningococcal 2012-06-16 Completed [facility] Vaccine 00:00:00 [facility] TDAP 2012-06-16 Completed [facility] 00:00:00 [facility] Meningococcal 2012-06-16 Completed [facility] Vaccine 00:00:00 [facility] TDAP 2012-06-16 Completed [facility] 00:00:00 [facility] Meningococcal 2012-06-16 Completed [facility] Vaccine 00:00:00 [facility] TDAP 2012-06-16 Completed [facility] 00:00:00 [facility] Meningococcal 2012-06-16 Completed [facility] Vaccine 00:00:00 [facility] TDAP 2012-06-16 Completed [facility] 00:00:00 [facility] Meningococcal 2012-06-16 Completed [facility] Vaccine 00:00:00 [facility] Meningococcal 2012-06-16 Completed [facility] Vaccine 00:00:00 [facility] TDAP 2012-06-16 Completed [facility] 00:00:00 [facility] Tdap 2012-06-16 Completed [facility] 00:00:00 [facility] Meningococcal 2012-06-16 Completed [facility] Vaccine 00:00:00 [facility] TDAP 2012-06-16 Completed [facility] 00:00:00 [facility] Meningococcal 2012-06-16 Completed [facility] Vaccine 00:00:00 [facility] TDAP 2012-06-16 Completed [facility] 00:00:00 [facility] Meningococcal 2012-06-16 Completed [facility] Vaccine 00:00:00 [facility] TDAP 2012-06-16 Completed [facility] 00:00:00 [facility] Meningococcal 2012-06-16 Completed [facility] [facility] [place] [facility] TDAP 2012-06-16 Completed [facility] 00:00:00 [facility] Meningococcal 2012-06-16 Completed [facility] of Vaccine 00:00:00 [facility] TDAP 2012-06-16 Completed [facility] 00:00:00 [facility] Meningococcal 2012-06-16 Completed [facility] of Vaccine 00:00:00 [facility] TDAP 2012-06-16 Completed [facility] 00:00:00 [facility] Meningococcal 2012-06-16 Completed [facility] Vaccine 00:00:00 [facility] TDAP 2012-06-16 Completed [facility] 00:00:00 [facility] [place] [facility] Meningococcal 2012-06-16 Completed [facility] of Vaccine 00:00:00 [facility] Meningococcal 2012-06-16 Completed [facility] Vaccine 00:00:00 [facility] TDAP 2012-06-16 Completed [facility] 00:00:00 [facility] Meningococcal 2012-06-16 Completed [facility] Vaccine 00:00:00 [facility] TDAP 2012-06-16 Completed [facility] 00:00:00 [facility] Tdap 2012-06-16 Completed [facility] 00:00:00 [facility] Meningococcal 2012-06-16 Completed [facility] Vaccine 00:00:00 [facility] TDAP 2012-06-16 Completed [facility] 00:00:00 [facility] Meningococcal 2012-06-16 Completed [facility] Vaccine 00:00:00 [facility] TDAP 2012-06-16 Completed [facility] 00:00:00 [facility] Meningococcal 2012-06-16 Completed [facility] Vaccine 00:00:00 [facility] TDAP 2012-06-16 Completed [facility] 00:00:00 [facility] Meningococcal 2012-06-16 Completed [facility] Vaccine 00:00:00 [facility] TDAP 2012-06-16 Completed [facility] 00:00:00 [facility] Meningococcal 2012-06-16 Completed [facility] Vaccine 00:00:00 [facility] TDAP 2012-06-16 Completed [facility] 00:00:00 [facility] Meningococcal 2012-06-16 Completed [facility] Vaccine 00:00:00 [facility] TDAP 2012-06-16 Completed [facility] 00:00:00 [facility] Meningococcal 2012-06-16 Completed [facility] Vaccine 00:00:00 [facility] Meningococcal 2012-06-16 Completed [facility] Vaccine 00:00:00 [facility] TDAP 2012-06-16 Completed [facility] 00:00:00 [facility] Meningococcal 2012-06-16 Completed [facility] Vaccine 00:00:00 [facility] TDAP 2012-06-16 Completed [facility] 00:00:00 [facility] Tdap 2012-06-16 Completed [facility] 00:00:00 [facility] Meningococcal 2012-06-16 Completed [facility] Vaccine 00:00:00 [facility] TDAP 2012-06-16 Completed [facility] 00:00:00 [facility] Meningococcal 2012-06-16 Completed [facility] Vaccine 00:00:00 [facility] TDAP 2012-06-16 Completed [facility] 00:00:00 [facility] [place] [facility] Meningococcal 2012-06-16 Completed [facility] Vaccine 00:00:00 [facility] TDAP 2012-06-16 Completed [facility] 00:00:00 [facility] Meningococcal 2012-06-16 Completed [facility] Vaccine 00:00:00 [facility] TDAP 2012-06-16 Completed [facility] 00:00:00 [facility] Meningococcal 2012-06-16 Completed [facility] Vaccine 00:00:00 [facility] TDAP 2012-06-16 Completed [facility] 00:00:00 [facility] [place] [facility] Meningococcal 2012-06-16 Completed [facility] Vaccine 00:00:00 [facility] TDAP 2012-06-16 Completed [facility] 00:00:00 [facility] Meningococcal 2012-06-16 Completed [facility] Vaccine 00:00:00 [facility] TDAP 2012-06-16 Completed [facility] 00:00:00 [facility] Meningococcal 2012-06-16 Completed [facility] Vaccine 00:00:00 [facility] Meningococcal 2012-06-16 Completed [facility] Vaccine 00:00:00 [facility] Tdap 2012-06-16 Completed [facility] 00:00:00 [facility] Meningococcal 2012-06-16 Completed [facility] Vaccine 00:00:00 [facility] Tdap 2012-06-16 Completed [facility] 00:00:00 [facility] TDAP 2012-06-16 Completed [facility] 00:00:00 [facility] Meningococcal 2012-06-16 Completed [facility] Vaccine 00:00:00 [facility] Tdap 2012-06-16 Completed [facility] 00:00:00 [facility] Meningococcal 2012-06-16 Completed [facility] Vaccine 00:00:00 [facility] Tdap 2012-06-16 Completed [facility] 00:00:00 [facility] Meningococcal 2012-06-16 Completed [facility] Vaccine 00:00:00 [facility] Tdap 2012-06-16 Completed [facility] 00:00:00 [facility] Meningococcal 2012-06-16 Completed [facility] Vaccine 00:00:00 [facility] Tdap 2012-06-16 Completed [facility] 00:00:00 [facility] Meningococcal 2012-06-16 Com[facility] 00[facility]:00 [facility] Meningococcal 2012-06-16 Completed [facility] Vaccine 00:00:00 [facility] Varicella 2007-10-14 Completed [facility] of (varivax)(chicken 00:00:00 [place] [facility] Influenza Virus 2007-10-14 Completed [facility]it y of Vaccine - Whole 00:00:00 [facility] Varicella 2007-10-14 Completed [facility] (varivax)(chicken 00:00:00 [place] [facility] Influenza Virus 2007-10-14 Completed [facility] y of Vaccine - Whole 00:00:00 [facility] Varicella 2007-10-14 Completed [facility] (varivax)(chicken 00:00:00 [facility] edical pox) Branch Influenza Virus 2007-10-14 Completed [facility]it y of Vaccine - Whole 00:00:00 [facility] Varicella 2007-10-14 Completed [facility] (varivax)(chicken 00:00:00 [place] [facility] Influenza Virus 2007-10-14 Completed [facility] y of Vaccine - Whole 00:00:00 [facility] Varicella 2007-10-14 Completed [facility] (varivax)(chicken 00:00:00 [place] [facility] Influenza Virus 2007-10-14 Completed [facility] y of Vaccine - Whole 00:00:00 [facility] Varicella 2007-10-14 Completed [facility] (varivax)(chicken 00:00:00 [place] [facility] Influenza Virus 2007-10-14 Completed [facility] y of Vaccine - Whole 00:00:00 [facility] Varicella 2007-10-14 Completed [facility] (varivax)(chicken 00:00:00 [place] [facility] Influenza Virus 2007-10-14 Completed [facility] y of Vaccine - Whole 00:00:00 [facility] Varicella 2007-10-14 Completed [facility] (varivax)(chicken 00:00:00 [place] [facility] Influenza Virus 2007-10-14 Completed [facility] y of Vaccine - Whole 00:00:00 [facility] Varicella 2007-10-14 Completed [facility] (varivax)(chicken 00:00:00 [place] [facility] Influenza Virus 2007-10-14 Completed [facility] y of Vaccine - Whole 00:00:00 [facility] Varicella 2007-10-14 Completed [facility] (varivax)(chicken 00:00:00 [place] [facility] Varicella 2007-10-14 Completed [facility] (varivax)(chicken 00:00:00 [place] [facility] Influenza Virus 2007-10-14 Completed [facility] y of Vaccine - Whole 00:00:00 [facility] Influenza Virus 2007-10-14 Completed [facility] y of Vaccine - Whole 00:00:00 [facility] Varicella 2007-10-14 Completed [facility] (varivax)(chicken 00:00:00 [place] [facility] Influenza Virus 2007-10-14 Completed [facility] y of Vaccine - Whole 00:00:00 [facility] Varicella 2007-10-14 Completed [facility] (varivax)(chicken 00:00:00 [place] [facility] Influenza Virus 2007-10-14 Completed [facility] y of Vaccine - Whole 00:00:00 [facility] Varicella 2007-10-14 Completed [facility] (varivax)(chicken 00:00:00 [place] [facility] Influenza Virus 2007-10-14 Completed [facility] y of Vaccine - Whole 00:00:00 [facility] Varicella 2007-10-14 Completed [facility] (varivax)(chicken 00:00:00 [place] [facility] Influenza Virus 2007-10-14 Completed [facility] y of Vaccine - Whole 00:00:00 [facility] Varicella 2007-10-14 Completed [facility] (varivax)(chicken 00:00:00 [place] [facility] Influenza Virus 2007-10-14 Completed [facility] y of Vaccine - Whole 00:00:00 [facility] Varicella 2007-10-14 Completed [facility] (varivax)(chicken 00:00:00 [place] [facility] Influenza Virus 2007-10-14 Completed [facility] y of Vaccine - Whole 00:00:00 [facility] Varicella 2007-10-14 Completed [facility] (varivax)(chicken 00:00:00 [place] [facility] Influenza Virus 2007-10-14 Completed [facility] y of Vaccine - Whole 00:00:00 [facility] Varicella 2007-10-14 Completed [facility] (varivax)(chicken 00:00:00 [place] [facility] Influenza Virus 2007-10-14 Completed [facility] y of Vaccine - Whole 00:00:00 [facility] Varicella 2007-10-14 Completed [facility] (varivax)(chicken 00:00:00 [place] [facility] Influenza Virus 2007-10-14 Completed [facility] y of Vaccine - Whole 00:00:00 [facility] Varicella 2007-10-14 Completed [facility] (varivax)(chicken 00:00:00 [place] [facility] Influenza Virus 2007-10-14 Completed [facility] y of Vaccine - Whole 00:00:00 [facility] Varicella 2007-10-14 Completed [facility] (varivax)(chicken 00:00:00 [place] [facility] Influenza Virus 2007-10-14 Completed [facility] y of Vaccine - Whole 00:00:00 [facility] Varicella 2007-10-14 Completed [facility] (varivax)(chicken 00:00:00 [place] [facility] Influenza Virus 2007-10-14 Completed [facility] y of Vaccine - Whole 00:00:00 [facility] Varicella 2007-10-14 Completed [facility] (varivax)(chicken 00:00:00 [place] [facility] Influenza Virus 2007-10-14 Completed [facility] y of Vaccine - Whole 00:00:00 [facility] Varicella 2007-10-14 Completed [facility] (varivax)(chicken 00:00:00 [place] [facility] Influenza Virus 2007-10-14 Completed [facility] y of Vaccine - Whole 00:00:00 [facility] Varicella 2007-10-14 Completed [facility] (varivax)(chicken 00:00:00 [place] [facility] Influenza Virus 2007-10-14 Completed [facility] y of Vaccine - Whole 00:00:00 [facility] Varicella 2007-10-14 Completed [facility] (varivax)(chicken 00:00:00 [place] [facility] Influenza Virus 2007-10-14 Completed [facility] y of Vaccine - Whole 00:00:00 [facility] Varicella 2007-10-14 Completed [facility] (varivax)(chicken 00:00:00 [place] [facility] Influenza Virus 2007-10-14 Completed [facility] y of Vaccine - Whole 00:00:00 [facility] Varicella 2007-10-14 Completed [facility] (varivax)(chicken 00:00:00 [place] [facility] Influenza Virus 2007-10-14 Completed [facility] y of Vaccine - Whole 00:00:00 [facility] Varicella 2007-10-14 Completed [facility] (varivax)(chicken 00:00:00 [place] [facility] Influenza Virus 2007-10-14 Completed [facility] y of Vaccine - Whole 00:00:00 [facility] Varicella 2007-10-14 Completed [facility] (varivax)(chicken 00:00:00 [place] [facility] Influenza Virus 2007-10-14 Completed [facility] y of Vaccine - Whole 00:00:00 [facility] Varicella 2007-10-14 Completed [facility] (varivax)(chicken 00:00:00 [place] [facility] Influenza Virus 2007-10-14 Completed [facility] y of Vaccine - Whole 00:00:00 [facility] Varicella 2007-10-14 Completed [facility] (varivax)(chicken 00:00:00 [place] [facility] Influenza Virus 2007-10-14 Completed [facility] y of Vaccine - Whole 00:00:00 [facility] Varicella 2007-10-14 Completed [facility] (varivax)(chicken 00:00:00 [place] [facility] Influenza Virus 2007-10-14 Completed [facility] y of Vaccine - Whole 00:00:00 [facility] Varicella 2007-10-14 Completed [facility] (varivax)(chicken 00:00:00 [place] [facility] Influenza Virus 2007-10-14 Completed [facility] y of Vaccine - Whole 00:00:00 [facility] Varicella 2007-10-14 Completed [facility] (varivax)(chicken 00:00:00 [place] [facility] Influenza Virus 2007-10-14 Completed [facility] y of Vaccine - Whole 00:00:00 [facility] Varicella 2007-10-14 Completed [facility] (varivax)(chicken 00:00:00 [place] [facility] Influenza Virus 2007-10-14 Completed [facility] y of Vaccine - Whole 00:00:00 [facility] Varicella 2007-10-14 Completed [facility] (varivax)(chicken 00:00:00 [place] [facility] Influenza Virus 2007-10-14 Completed [facility] y of Vaccine - Whole 00:00:00 [facility] Varicella 2007-10-14 Completed [facility] (varivax)(chicken 00:00:00 [place] [facility] Influenza Virus 2007-10-14 Completed [facility] y of Vaccine - Whole 00:00:00 [facility] Varicella 2007-10-14 Completed [facility] (varivax)(chicken 00:00:00 [place] [facility] Influenza Virus 2007-10-14 Completed [facility] y of Vaccine - Whole 00:00:00 [facility] Varicella 2007-10-14 Completed [facility] (varivax)(chicken 00:00:00 [place] [facility] Influenza Virus 2007-10-14 Completed [facility] y of Vaccine - Whole 00:00:00 [facility] Varicella 2007-10-14 Completed [facility] (varivax)(chicken 00:00:00 [place] [facility] Influenza Virus 2007-10-14 Completed [facility] y of Vaccine - Whole 00:00:00 [facility] Varicella 2007-10-14 Completed [facility] (varivax)(chicken 00:00:00 [place] [facility] pox[facility] Influenza Virus 2007-10-14 Completed [facility] y of Vaccine - Whole 00:00:00 [facility] Varicella 2007-10-14 Completed [facility] (varivax)(chicken 00:00:00 [place] [facility] Influenza Virus 2007-10-14 Completed [facility] y of Vaccine - Whole 00:00:00 [facility] Varicella 2007-10-14 Completed [facility] (varivax)(chicken 00:00:00 [place] [facility] pox[facility] Influenza Virus 2007-10-14 Completed [facility] y of Vaccine - Whole 00:00:00 [facility] Varicella 2007-10-14 Completed [facility] (varivax)(chicken 00:00:00 [place] [facility] Influenza Virus 2007-10-14 Completed [facility] y of Vaccine - Whole 00:00:00 [facility] Varicella 2007-10-14 Completed [facility] (varivax)(chicken 00:00:00 [place] [facility] Influenza Virus 2007-10-14 Completed [facility] y of Vaccine - Whole 00:00:00 [facility] Varicella 2007-10-14 Completed [facility] (varivax)(chicken 00:00:00 [place] [facility] pox[facility] Influenza Virus 2007-10-14 Completed [facility] y of Vaccine - Whole 00:00:00 [facility] Varicella 2007-10-14 Completed [facility] (varivax)(chicken 00:00:00 [place] [facility] pox[facility] Influenza Virus 2007-10-14 Completed [facility] y of Vaccine - Whole 00:00:00 [facility] Varicella 2007-10-14 Completed [facility] (varivax)(chicken 00:00:00 [place] [facility] pox[facility] Influenza Virus 2007-10-14 Completed [facility] y of Vaccine - Whole 00:00:00 [facility] Varicella 2007-10-14 Completed [facility] (varivax)(chicken 00:00:00 [place] [facility] pox[facility] Influenza Virus 2007-10-14 Completed [facility] y of Vaccine - Whole 00:00:00 [facility] Varicella 2007-10-14 Completed [facility] (varivax)(chicken 00:00:00 [place] [facility] Influenza Virus 2007-10-14 Completed [facility] y of Vaccine - Whole 00:00:00 [facility] Varicella 2007-10-14 Completed [facility] (varivax)(chicken 00:00:00 [place] [facility] p[facility] Influenza Virus 2007-10-14 Completed [facility] y of Vaccine - Whole 00:00:00 [facility] Varicella 2007-10-14 Completed [facility] (varivax)(chicken 00:00:00 [place] [facility] Influenza Virus 2007-10-14 Completed [facility] y of Vaccine - Whole 00:00:00 [facility] Varicella 2007-10-14 Completed [facility] (varivax)(chicken 00:00:00 [place] [facility] Influenza Virus 2007-10-14 Completed [facility] y of Vaccine - Whole 00:00:00 [facility] Varicella 2007-10-14 Completed [facility] (varivax)(chicken 00:00:00 [place] [facility] Influenza Virus 2007-10-14 Completed [facility] y of Vaccine - Whole 00:00:00 [facility] Varicella 2007-10-14 Completed [facility] (varivax)(chicken 00:00:00 [place] [facility] Influenza Virus 2007-10-14 Completed [facility] y of Vaccine - Whole 00:00:00 [facility] Varicella 2007-10-14 Completed [facility] (varivax)(chicken 00:00:00 [place] [facility] Influenza Virus 2007-10-14 Completed [facility] y of Vaccine - Whole 00:00:00 [facility] Varicella 2007-10-14 Completed [facility] (varivax)(chicken 00:00:00 [place] [facility] Influenza Virus 2007-10-14 Completed [facility] y of Vaccine - Whole 00:00:00 [facility] Varicella 2007-10-14 Completed [facility] (varivax)(chicken 00:00:00 [place] [facility] Influenza Virus 2007-10-14 Completed [facility] y of Vaccine - Whole 00:00:00 [facility] Varicella 2007-10-14 Completed [facility] (varivax)(chicken 00:00:00 [place] [facility]ox[facility] Influenza Virus 2007-10-14 Completed [facility] y of Vaccine - Whole 00:00:00 [facility] Varicella 2007-10-14 Completed [facility] (varivax)(chicken 00:00:00 [place] [facility] Influenza Virus 2007-10-14 Completed [facility] y of Vaccine - Whole 00:00:00 [facility] Varicella 2007-10-14 Completed [facility] (varivax)(chicken 00:00:00 [place] [facility] Influenza Virus 2007-10-14 Completed [facility] y of Vaccine - Whole 00:00:00 [facility] Varicella 2007-10-14 Completed [facility] (varivax)(chicken 00:00:00 [place] [facility] Influenza Virus 2007-10-14 Completed [facility] y of Vaccine - Whole 00:00:00 [facility] Varicella 2007-10-14 Completed [facility] (varivax)(chicken 00:00:00 [place] [facility] Influenza Virus 2007-10-14 Completed [facility] y of Vaccine - Whole 00:00:00 [facility] Varicella 2007-10-14 Completed [facility] (varivax)(chicken 00:00:00 [place] [facility] Influenza Virus 2007-10-14 Completed [facility] y of Vaccine - Whole 00:00:00 [facility] Varicella 2007-10-14 Completed [facility] (varivax)(chicken 00:00:00 [place] [facility] Influenza Virus 2007-10-14 Completed [facility] y of Vaccine - Whole 00:00:00 [facility] Varicella 2007-10-14 Completed [facility] (varivax)(chicken 00:00:00 [place] [facility] Influenza Virus 2007-10-14 Completed [facility] y of Vaccine - Whole 00:00:00 [facility] Varicella 2007-10-14 Completed [facility] (varivax)(chicken 00:00:00 [place] [facility] Influenza Virus 2007-10-14 Completed [facility] y of Vaccine - Whole 00:00:00 [facility] Varicella 2007-10-14 Completed [facility] (varivax)(chicken 00:00:00 [place] [facility] Influenza Virus 2007-10-14 Completed [facility] of Vaccine - Whole 00:00:00 [facility] Varicella 2007-10-14 Completed [facility] (varivax)(chicken 00:00:00 [place] [facility] Influenza Virus 2007-10-14 Completed [facility] y of Vaccine - Whole 00:00:00 [facility] Varicella 2007-10-14 Completed [facility] (varivax)(chicken 00:00:00 [place] [facility] Influenza Virus 2007-10-14 Completed [facility] y of Vaccine - Whole 00:00:00 [facility] Varicella 2007-10-14 Completed [facility] (varivax)(chicken 00:00:00 [place] [facility] Influenza Virus 2007-10-14 Completed [facility] of Vaccine - Whole 00:00:00 [facility] Varicella 2007-10-14 Completed [facility] (varivax)(chicken 00:00:00 [place] [facility] Influenza Virus 2007-10-14 Completed [facility] of Vaccine - Whole 00:00:00 [facility] Varicella 2007-10-14 Completed [facility] (varivax)(chicken 00:00:00 [place] [facility] Influenza Virus 2007-10-14 Completed [facility] y of Vaccine - Whole 00:00:00 [facility] Varicella 2007-10-14 Completed [facility] (varivax)(chicken 00:00:00 [place] [facility] Influenza Virus 2007-10-14 Completed [facility] of Vaccine - Whole 00:00:00 [facility] Varicella 2007-10-14 Completed [facility] (varivax)(chicken 00:00:00 [place] [facility] Influenza Virus 2007-10-14 Completed [facility] of Vaccine - Whole 00:00:00 [facility] Varicella 2007-10-14 Completed [facility] (varivax)(chicken 00:00:00 [place] [facility] Influenza Virus 2007-10-14 Completed [facility] y of Vaccine - Whole 00:00:00 [facility] Varicella 2007-10-14 Completed [facility] (varivax)(chicken 00:00:00 [place] [facility] Influenza Virus 2007-10-14 Completed [facility] Vaccine - Whole 00:00:00 [facility] Varicella 2007-10-14 Completed [facility] of (varivax)(chicken 00:00:00 [place] [facility] Influenza Virus 2007-10-14 Completed [facility] Vaccine - Whole 00:00:00 [facility] Varicella 2007-10-14 Completed [facility] (varivax)(chicken 00:00:00 [place] [facility] Influenza Virus 2007-10-14 Completed [facility] Vaccine - Whole 00:00:00 [facility] Varicella 2007-10-14 Completed [facility] (varivax)(chicken 00:00:00 [place] [facility] Influenza Virus 2007-10-14 Completed [facility] Vaccine - Whole 00:00:00 [facility] Varicella 2007-10-14 Completed [facility] (varivax)(chicken 00:00:00 [place] [facility] Influenza Virus 2007-10-14 Completed [facility] Vaccine - Whole 00:00:00 [facility] Varicella 2007-10-14 Completed [facility] (varivax)(chicken 00:00:00 [place] [facility] Influenza Virus 2007-10-14 Completed [facility] Vaccine - Whole 00:00:00 [facility] Varicella 2007-10-14 Completed [facility] (varivax)(chicken 00:00:00 [place] [facility] Influenza Virus 2007-10-14 Completed [facility] Vaccine - Whole 00:00:00 [facility] Varicella 2007-10-14 Completed [facility] (varivax)(chicken 00:00:00 [place] [facility] Influenza Virus 2007-10-14 Completed [facility] Vaccine - Whole 00:00:00 [facility] HEPATITIS A 2007-03-29 Completed [facility] 00:00:00 [facility] HEPATITIS A 2007-03-29 Completed [facility] 00:00:00 [facility] HEPATITIS A 2007-03-29 Completed [facility] 00:00:00 [facility] HEPATITIS A 2007-03-29 Completed [facility] 00:00:00 [facility] HEPATITIS A 2007-03-29 Completed [facility] 00:00:00 [facility] HEPATITIS A 2007-03-29 Completed [facility] 00:00:00 [facility] HEPATITIS A 2007-03-29 Completed [facility] 00:00:00 [facility] HEPATITIS A 2007-03-29 Completed [facility] 00:00:00 [facility] HEPATITIS A 2007-03-29 Completed [facility] 00:00:00 [facility] HEPATITIS A 2007-03-29 Completed [facility] 00:00:00 [facility] HEPATITIS A 2007-03-29 Completed [facility] 00:00:00 [facility] HEPATITIS A 2007-03-29 Completed [facility] 00:00:00 [facility] HEPATITIS A 2007-03-29 Completed [facility] 00:00:00 [facility] HEPATITIS A 2007-03-29 Completed [facility] 00:00:00 [facility] HEPATITIS A 2007-03-29 Completed [facility] 00:00:00 [facility] HEPATITIS A 2007-03-29 Completed [facility] 00:00:00 [facility] HEPATITIS A 2007-03-29 Completed [facility] 00:00:00 [facility] HEPATITIS A 2007-03-29 Completed [facility] 00:00:00 [facility] HEPATITIS A 2007-03-29 Completed [facility] 00:00:00 [facility] HEPATITIS A 2007-03-29 Completed [facility] 00:00:00 [facility] HEPATITIS A 2007-03-29 Completed [facility] 00:00:00 [facility] HEPATITIS A 2007-03-29 Completed [facility] 00:00:00 [facility] HEPATITIS A 2007-03-29 Completed [facility] 00:00:00 [facility] HEPATITIS A 2007-03-29 Completed [facility] 00:00:00 [facility] HEPATITIS A 2007-03-29 Completed [facility] 00:00:00 [facility] HEPATITIS A 2007-03-29 Completed [facility] 00:00:00 [facility] HEPATITIS A 2007-03-29 Completed [facility] 00:00:00 [facility] HEPATITIS A 2007-03-29 Completed [facility] 00:00:00 [facility] HEPATITIS A 2007-03-29 Completed [facility] 00:00:00 [facility] HEPATITIS A 2007-03-29 Completed [facility] 00:00:00 [facility] HEPATITIS A 2007-03-29 Completed [facility] 00:00:00 [facility] HEPATITIS A 2007-03-29 Completed [facility] 00:00:00 [facility] HEPATITIS A 2007-03-29 Completed [facility] 00:00:00 [facility] HEPATITIS A 2007-03-29 Completed [facility] 00:00:00 [facility] HEPATITIS A 2007-03-29 Completed [facility] 00:00:00 [facility] HEPATITIS A 2007-03-29 Completed [facility] 00:00:00 [facility] HEPATITIS A 2007-03-29 Completed [facility] 00:00:00 [facility] HEPATITIS A 2007-03-29 Completed [facility] 00:00:00 [facility] HEPATITIS A 2007-03-29 Completed [facility] 00:00:00 [facility] HEPATITIS A 2007-03-29 Completed [facility] 00:00:00 [facility] HEPATITIS A 2007-03-29 Completed [facility] 00:00:00 [facility] HEPATITIS A 2007-03-29 Completed [facility] 00:00:00 [facility] HEPATITIS A 2007-03-29 Completed [facility] 00:00:00 [facility] HEPATITIS A 2007-03-29 Completed [facility] 00:00:00 [facility] HEPATITIS A 2007-03-29 Completed [facility] 00:00:00 [facility] HEPATITIS A 2007-03-29 Completed [facility] 00:00:00 [facility] HEPATITIS A 2007-03-29 Completed [facility] 00:00:00 [facility] HEPATITIS A 2007-03-29 Completed [facility] 00:00:00 [facility] HEPATITIS A 2007-03-29 Completed [facility] 00:00:00 [facility] HEPATITIS A 2007-03-29 Completed [facility] 00:00:00 [facility] HEPATITIS A 2007-03-29 Completed [facility] 00:00:00 [facility] HEPATITIS A 2007-03-29 Completed [facility] 00:00:00 [facility] HEPATITIS A 2007-03-29 Completed [facility] 00:00:00 [facility] HEPATITIS A 2007-03-29 Completed [facility] 00:00:00 [facility] HEPATITIS A 2007-03-29 Completed [facility] 00:00:00 [facility] HEPATITIS A 2007-03-29 Completed [facility] 00:00:00 [facility] HEPATITIS A 2007-03-29 Completed [facility] 00:00:00 [facility] HEPATITIS A 2007-03-29 Completed [facility] 00:00:00 [facility] HEPATITIS A 2007-03-29 Completed [facility] 00:00:00 [facility] HEPATITIS A 2007-03-29 Completed [facility] 00:00:00 [facility] HEPATITIS A 2007-03-29 Completed [facility] 00:00:00 [facility] HEPATITIS A 2007-03-29 Completed [facility] 00:00:00 [facility] HEPATITIS A 2007-03-29 Completed [facility] 00:00:00 [facility] HEPATITIS A 2007-03-29 Completed [facility] 00:00:00 [facility] HEPATITIS A 2007-03-29 Completed [facility] 00:00:00 [facility] HEPATITIS A 2007-03-29 Completed [facility] 00:00:00 [facility] HEPATITIS A 2007-03-29 Completed [facility] 00:00:00 [facility] HEPATITIS A 2007-03-29 Completed [facility] 00:00:00 [facility] HEPATITIS A 2007-03-29 Completed [facility] 00:00:00 [facility] HEPATITIS A 2007-03-29 Completed [facility] 00:00:00 [facility] HEPATITIS A 2007-03-29 Completed [facility] 00:00:00 [facility] HEPATITIS A 2007-03-29 Completed [facility] 00:00:00 [facility] HEPATITIS A 2007-03-29 Completed [facility] 00:00:00 [facility] HEPATITIS A 2007-03-29 Completed [facility] 00:00:00 [facility] HEPATITIS A 2007-03-29 Completed [facility] 00:00:00 [facility] HEPATITIS A 2007-03-29 Completed [facility] 00:00:00 [facility] HEPATITIS A 2007-03-29 Completed [facility] 00:00:00 [facility] HEPATITIS A 2007-03-29 Completed [facility] 00:00:00 [facility] HEPATITIS A 2007-03-29 Completed [facility] 00:00:00 [facility] HEPATITIS A 2007-03-29 Completed [facility] 00:00:00 [facility] HEPATITIS A 2007-03-29 Completed [facility] 00:00:00 [facility] HEPATITIS A 2007-03-29 Completed [facility] 00:00:00 [facility] HEPATITIS A 2007-03-29 Completed [facility] 00:00:00 [facility] HEPATITIS A 2007-03-29 Completed [facility] 00:00:00 [facility] HEPATITIS A 2007-03-29 Completed [facility] 00:00:00 [facility] HEPATITIS A 2007-03-29 Completed [facility] 00:00:00 [facility] HEPATITIS A 2007-03-29 Completed [facility] 00:00:00 [facility] HEPATITIS A 2007-03-29 Completed [facility] 00:00:00 [facility] HEPATITIS A 2007-03-29 Completed [facility] 00:00:00 [facility] HEPATITIS A 2007-03-29 Completed [facility] 00:00:00 [facility] HEPATITIS A 2007-03-29 Completed [facility] 00:00:00 [facility] HEPATITIS A 2007-03-29 Completed [facility] 00:00:00 [facility] HEPATITIS A 2007-03-29 Completed [facility] 00:00:00 [facility] HEPATITIS A 2007-03-29 Completed [facility] 00:00:00 [facility] HEPATITIS A 2007-03-29 Completed [facility] 00:00:00 [facility] HEPATITIS A 2007-03-29 Completed [facility] 00:00:00 [facility] HEPATITIS A 2007-03-29 Completed [facility] 00:00:00 [facility] HEPATITIS A 2007-03-29 Completed [facility] 00:00:00 [facility] HEPATITIS A 2007-03-29 Completed [facility] 00:00:00 [facility] HEPATITIS A 2007-03-29 Completed [facility] 00:00:00 [facility] HEPATITIS A 2007-03-29 Completed [facility] 00:00:00 [facility] HEPATITIS A 2007-03-29 Completed [facility] 00:00:00 [facility] HEPATITIS A 2007-03-29 Completed [facility] 00:00:00 [facility] HEPATITIS A 2007-03-29 Completed [facility] 00:00:00 [facility] HEPATITIS A 2007-03-29 Completed [facility] 00:00:00 [facility] HEPATITIS A 2007-03-29 Completed [facility] 00:00:00 [facility] HEPATITIS A 2007-03-29 Completed [facility] 00:00:00 [facility] HEPATITIS A 2007-03-29 Completed [facility] 00:00:00 [facility] HEPATITIS A 2007-03-29 Completed [facility] 00:00:00 [facility] HEPATITIS A 2007-03-29 Completed [facility] 00:00:00 [facility] HEPATITIS A 2007-03-29 Completed [facility] 00:00:00 [facility] HEPATITIS A 2007-03-29 Completed [facility] 00:00:00 [facility] HEPATITIS A 2007-03-29 Completed [facility] 00:00:00 [facility] HEPATITIS A 2007-03-29 Completed [facility] 00:00:00 [facility] HEPATITIS A 2007-03-29 Completed [facility] 00:00:00 [facility] HEPATITIS A 2007-03-29 Completed [facility] 00:00:00 [facility] HEPATITIS A 2007-03-29 Completed [facility] 00:00:00 [facility] HEPATITIS A 2007-03-29 Completed [facility] 00:00:00 [facility] HEPATITIS A 2007-03-29 Completed [facility] 00:00:00 [facility] HEPATITIS A 2007-03-29 Completed [facility] 00:00:00 [facility] HEPATITIS A 2007-03-29 Completed [facility] 00:00:00 [facility] HEPATITIS A 2007-03-29 Completed [facility] 00:00:00 [facility] HEPATITIS A 2007-03-29 Completed [facility] 00:00:00 [facility] HEPATITIS A 2007-03-29 Completed [facility] 00:00:00 [facility] HEPATITIS A 2007-03-29 Completed [facility] 00:00:00 [facility] HEPATITIS A 2007-03-29 Completed [facility] 00:00:00 [facility] HEPATITIS A 2007-03-29 Completed [facility] 00:00:00 [facility] HEPATITIS A 2007-03-29 Completed [facility] 00:00:00 [facility] Influenza Virus 2006-12-08 Completed [facility] Vaccine - Whole 00:00:00 [facility] Influenza Virus 2006-12-08 Completed [facility] Vaccine - Whole 00:00:00 [facility] Influenza Virus 2006-12-08 Completed [facility] Vaccine - Whole 00:00:00 [facility] Influenza Virus 2006-12-08 Completed [facility] Vaccine - Whole 00:00:00 [facility] Influenza Virus 2006-12-08 Completed [facility] Vaccine - Whole 00:00:00 [facility] Influenza Virus 2006-12-08 Completed [facility] Vaccine - Whole 00:00:00 [facility] Influenza Virus 2006-12-08 Completed [facility] Vaccine - Whole 00:00:00 [facility] Influenza Virus 2006-12-08 Completed [facility] Vaccine - Whole 00:00:00 [facility] Influenza Virus 2006-12-08 Completed [facility] Vaccine - Whole 00:00:00 [facility] Influenza Virus 2006-12-08 Completed [facility] Vaccine - Whole 00:00:00 [facility] Influenza Virus 2006-12-08 Completed [facility] Vaccine - Whole 00:00:00 [facility] Influenza Virus 2006-12-08 Completed [facility] Vaccine - Whole 00:00:00 [facility] Influenza Virus 2006-12-08 Completed [facility] Vaccine - Whole 00:00:00 [facility] Influenza Virus 2006-12-08 Completed [facility] Vaccine - Whole 00:00:00 [facility] Influenza Virus 2006-12-08 Completed [facility] Vaccine - Whole 00:00:00 [facility] Influenza Virus 2006-12-08 Completed [facility] Vaccine - Whole 00:00:00 [facility] Influenza Virus 2006-12-08 Completed [facility] Vaccine - Whole 00:00:00 [facility] Influenza Virus 2006-12-08 Completed [facility] Vaccine - Whole 00:00:00 [facility] Influenza Virus 2006-12-08 Completed [facility] Vaccine - Whole 00:00:00 [facility] Influenza Virus 2006-12-08 Completed [facility] Vaccine - Whole 00:00:00 [facility] Influenza Virus 2006-12-08 Completed [facility] Vaccine - Whole 00:00:00 [facility] Influenza Virus 2006-12-08 Completed [facility] Vaccine - Whole 00:00:00 [facility] Influenza Virus 2006-12-08 Completed [facility] Vaccine - Whole 00:00:00 [facility] Influenza Virus 2006-12-08 Completed [facility] Vaccine - Whole 00:00:00 [facility] Influenza Virus 2006-12-08 Completed [facility] Vaccine - Whole 00:00:00 [facility] Influenza Virus 2006-12-08 Completed [facility] Vaccine - Whole 00:00:00 [facility] Influenza Virus 2006-12-08 Completed [facility] Vaccine - Whole 00:00:00 [facility] Influenza Virus 2006-12-08 Completed [facility] Vaccine - Whole 00:00:00 [facility] Influenza Virus 2006-12-08 Completed [facility] Vaccine - Whole 00:00:00 [facility] Influenza Virus 2006-12-08 Completed [facility] Vaccine - Whole 00:00:00 [facility] Influenza Virus 2006-12-08 Completed [facility] Vaccine - Whole 00:00:00 [facility] Influenza Virus 2006-12-08 Completed [facility] Vaccine - Whole 00:00:00 [facility] Influenza Virus 2006-12-08 Completed [facility] Vaccine - Whole 00:00:00 [facility] Influenza Virus 2006-12-08 Completed [facility] Vaccine - Whole 00:00:00 [facility] Influenza Virus 2006-12-08 Completed [facility] Vaccine - Whole 00:00:00 [facility] Influenza Virus 2006-12-08 Completed [facility] Vaccine - Whole 00:00:00 [facility] Influenza Virus 2006-12-08 Completed [facility] Vaccine - Whole 00:00:00 [facility] Influenza Virus 2006-12-08 Completed [facility] Vaccine - Whole 00:00:00 [facility] Influenza Virus 2006-12-08 Completed [facility] Vaccine - Whole 00:00:00 [facility] Influenza Virus 2006-12-08 Completed [facility] Vaccine - Whole 00:00:00 [facility] Influenza Virus 2006-12-08 Completed [facility] Vaccine - Whole 00:00:00 [facility] Influenza Virus 2006-12-08 Completed [facility] Vaccine - Whole 00:00:00 [facility] Influenza Virus 2006-12-08 Completed [facility] Vaccine - Whole 00:00:00 [facility] Influenza Virus 2006-12-08 Completed [facility] Vaccine - Whole 00:00:00 [facility] Influenza Virus 2006-12-08 Completed [facility] Vaccine - Whole 00:00:00 [facility] Influenza Virus 2006-12-08 Completed [facility] Vaccine - Whole 00:00:00 [facility] Influenza Virus 2006-12-08 Completed [facility] Vaccine - Whole 00:00:00 [facility] Influenza Virus 2006-12-08 Completed [facility] Vaccine - Whole 00:00:00 [facility] Influenza Virus 2006-12-08 Completed [facility] Vaccine - Whole 00:00:00 [facility] Influenza Virus 2006-12-08 Completed [facility] Vaccine - Whole 00:00:00 [facility] Influenza Virus 2006-12-08 Completed [facility] Vaccine - Whole 00:00:00 [facility] Influenza Virus 2006-12-08 Completed [facility] Vaccine - Whole 00:00:00 [facility] Influenza Virus 2006-12-08 Completed [facility] Vaccine - Whole 00:00:00 [facility] Influenza Virus 2006-12-08 Completed [facility] Vaccine - Whole 00:00:00 [facility] Influenza Virus 2006-12-08 Completed [facility] Vaccine - Whole 00:00:00 [facility] Influenza Virus 2006-12-08 Completed [facility] Vaccine - Whole 00:00:00 [facility] Influenza Virus 2006-12-08 Completed [facility] Vaccine - Whole 00:00:00 [facility] Influenza Virus 2006-12-08 Completed [facility] Vaccine - Whole 00:00:00 [facility] Influenza Virus 2006-12-08 Completed [facility] Vaccine - Whole 00:00:00 [facility] Influenza Virus 2006-12-08 Completed [facility] Vaccine - Whole 00:00:00 [facility] Influenza Virus 2006-12-08 Completed [facility] Vaccine - Whole 00:00:00 [facility] Influenza Virus 2006-12-08 Completed [facility] Vaccine - Whole 00:00:00 [facility] Influenza Virus 2006-12-08 Completed [facility] Vaccine - Whole 00:00:00 [facility] Influenza Virus 2006-12-08 Completed [facility] Vaccine - Whole 00:00:00 [facility] Influenza Virus 2006-12-08 Completed [facility] Vaccine - Whole 00:00:00 [facility] Influenza Virus 2006-12-08 Completed [facility] Vaccine - Whole 00:00:00 [facility] Influenza Virus 2006-12-08 Completed [facility] Vaccine - Whole 00:00:00 [facility] Influenza Virus 2006-12-08 Completed [facility] Vaccine - Whole 00:00:00 [facility] Influenza Virus 2006-12-08 Completed [facility] Vaccine - Whole 00:00:00 [facility] Influenza Virus 2006-12-08 Completed [facility] Vaccine - Whole 00:00:00 [facility] Influenza Virus 2006-12-08 Completed [facility] Vaccine - Whole 00:00:00 [facility] Influenza Virus 2006-12-08 Completed [facility] Vaccine - Whole 00:00:00 [facility] Influenza Virus 2006-12-08 Completed [facility] Vaccine - Whole 00:00:00 [facility] Influenza Virus 2006-12-08 Completed [facility] Vaccine - Whole 00:00:00 [facility] Influenza Virus 2006-12-08 Completed [facility] Vaccine - Whole 00:00:00 [facility] Influenza Virus 2006-12-08 Completed [facility] Vaccine - Whole 00:00:00 [facility] Influenza Virus 2006-12-08 Completed [facility] Vaccine - Whole 00:00:00 [facility] Influenza Virus 2006-12-08 Completed [facility] Vaccine - Whole 00:00:00 [facility] Influenza Virus 2006-12-08 Completed [facility] Vaccine - Whole 00:00:00 [facility] Influenza Virus 2006-12-08 Completed [facility] Vaccine - Whole 00:00:00 [facility] Influenza Virus 2006-12-08 Completed [facility] Vaccine - Whole 00:00:00 [facility] Influenza Virus 2006-12-08 Completed [facility] Vaccine - Whole 00:00:00 [facility] Influenza Virus 2006-12-08 Completed [facility] Vaccine - Whole 00:00:00 [facility] [facility] Influenza Virus 2006-12-08 Completed [facility] Vacc[facility] - Whole 00:00:00 [facility] Influenza Virus 2006-12-08 Completed [facility] Vaccine - Whole 00:00:00 [facility] Influenza Virus 2006-12-08 Completed [facility] Vaccine - Whole 00:00:00 [facility] HEPATITIS A 2006-09-24 Completed [facility] 00:00:00 [facility] HEPATITIS A 2006-09-24 Completed [facility] 00:00:00 [facility] HEPATITIS A 2006-09-24 Completed [facility] 00:00:00 [facility] HEPATITIS A 2006-09-24 Completed [facility] 00:00:00 [facility] HEPATITIS A 2006-09-24 Completed [facility] 00:00:00 [facility] HEPATITIS A 2006-09-24 Completed [facility] 00:00:00 [facility] HEPATITIS A 2006-09-24 Completed [facility] 00:00:00 [facility] HEPATITIS A 2006-09-24 Completed [facility] 00:00:00 [facility] HEPATITIS A 2006-09-24 Completed [facility] 00:00:00 [facility] HEPATITIS A 2006-09-24 Completed [facility] 00:00:00 [facility] HEPATITIS A 2006-09-24 Completed [facility] 00:00:00 [facility] HEPATITIS A 2006-09-24 Completed [facility] 00:00:00 [facility] HEPATITIS A 2006-09-24 Completed [facility] 00:00:00 [facility] HEPATITIS A 2006-09-24 Completed [facility] 00:00:00 [facility] HEPATITIS A 2006-09-24 Completed [facility] 00:00:00 [facility] HEPATITIS A 2006-09-24 Completed [facility] 00:00:00 [facility] HEPATITIS A 2006-09-24 Completed [facility] 00:00:00 [facility] HEPATITIS A 2006-09-24 Completed [facility] 00:00:00 [facility] HEPATITIS A 2006-09-24 Completed [facility] 00:00:00 [facility] HEPATITIS A 2006-09-24 Completed [facility] 00:00:00 [facility] HEPATITIS A 2006-09-24 Completed [facility] 00:00:00 [facility] HEPATITIS A 2006-09-24 Completed [facility] 00:00:00 [facility] HEPATITIS A 2006-09-24 Completed [facility] 00:00:00 [facility] HEPATITIS A 2006-09-24 Completed [facility] 00:00:00 [facility] HEPATITIS A 2006-09-24 Completed [facility] 00:00:00 [facility] HEPATITIS A 2006-09-24 Completed [facility] 00:00:00 [facility] HEPATITIS A 2006-09-24 Completed [facility] 00:00:00 [facility] HEPATITIS A 2006-09-24 Completed [facility] 00:00:00 [facility] HEPATITIS A 2006-09-24 Completed [facility] 00:00:00 [facility] HEPATITIS A 2006-09-24 Completed [facility] 00:00:00 [facility] HEPATITIS A 2006-09-24 Completed [facility] 00:00:00 [facility] HEPATITIS A 2006-09-24 Completed [facility] 00:00:00 [facility] HEPATITIS A 2006-09-24 Completed [facility] 00:00:00 [facility] HEPATITIS A 2006-09-24 Completed [facility] 00:00:00 [facility] HEPATITIS A 2006-09-24 Completed [facility] 00:00:00 [facility] HEPATITIS A 2006-09-24 Completed [facility] 00:00:00 [facility] HEPATITIS A 2006-09-24 Completed [facility] 00:00:00 [facility] HEPATITIS A 2006-09-24 Completed [facility] 00:00:00 [facility] HEPATITIS A 2006-09-24 Completed [facility] 00:00:00 [facility] HEPATITIS A 2006-09-24 Completed [facility] 00:00:00 [facility] HEPATITIS A 2006-09-24 Completed [facility] 00:00:00 [facility] HEPATITIS A 2006-09-24 Completed [facility] 00:00:00 [facility] HEPATITIS A 2006-09-24 Completed [facility] 00:00:00 [facility] HEPATITIS A 2006-09-24 Completed [facility] 00:00:00 [facility] HEPATITIS A 2006-09-24 Completed [facility] 00:00:00 [facility] HEPATITIS A 2006-09-24 Completed [facility] 00:00:00 [facility] HEPATITIS A 2006-09-24 Completed [facility] 00:00:00 [facility] HEPATITIS A 2006-09-24 Completed [facility] 00:00:00 [facility] HEPATITIS A 2006-09-24 Completed [facility] 00:00:00 [facility] HEPATITIS A 2006-09-24 Completed [facility] 00:00:00 [facility] HEPATITIS A 2006-09-24 Completed [facility] 00:00:00 [facility] HEPATITIS A 2006-09-24 Completed [facility] 00:00:00 [facility] HEPATITIS A 2006-09-24 Completed [facility] 00:00:00 [facility] HEPATITIS A 2006-09-24 Completed [facility] 00:00:00 [facility] HEPATITIS A 2006-09-24 Completed [facility] 00:00:00 [facility] HEPATITIS A 2006-09-24 Completed [facility] 00:00:00 [facility] HEPATITIS A 2006-09-24 Completed [facility] 00:00:00 [facility] HEPATITIS A 2006-09-24 Completed [facility] 00:00:00 [facility] HEPATITIS A 2006-09-24 Completed [facility] 00:00:00 [facility] HEPATITIS A 2006-09-24 Completed [facility] 00:00:00 [facility] HEPATITIS A 2006-09-24 Completed [facility] 00:00:00 [facility] HEPATITIS A 2006-09-24 Completed [facility] 00:00:00 [facility] HEPATITIS A 2006-09-24 Completed [facility] 00:00:00 [facility] HEPATITIS A 2006-09-24 Completed [facility] 00:00:00 [facility] HEPATITIS A 2006-09-24 Completed [facility] 00:00:00 [facility] HEPATITIS A 2006-09-24 Completed [facility] 00:00:00 [facility] HEPATITIS A 2006-09-24 Completed [facility] 00:00:00 [facility] HEPATITIS A 2006-09-24 Completed [facility] 00:00:00 [facility] HEPATITIS A 2006-09-24 Completed [facility] 00:00:00 [facility] HEPATITIS A 2006-09-24 Completed [facility] 00:00:00 [facility] HEPATITIS A 2006-09-24 Completed [facility] 00:00:00 [facility] HEPATITIS A 2006-09-24 Completed [facility] 00:00:00 [facility] HEPATITIS A 2006-09-24 Completed [facility] 00:00:00 [facility] HEPATITIS A 2006-09-24 Completed [facility] 00:00:00 [facility] HEPATITIS A 2006-09-24 Completed [facility] 00:00:00 [facility] HEPATITIS A 2006-09-24 Completed [facility] 00:00:00 [facility] HEPATITIS A 2006-09-24 Completed [facility] 00:00:00 [facility] HEPATITIS A 2006-09-24 Completed [facility] 00:00:00 [facility] HEPATITIS A 2006-09-24 Completed [facility] 00:00:00 [facility] HEPATITIS A 2006-09-24 Completed [facility] 00:00:00 [facility] HEPATITIS A 2006-09-24 Completed [facility] 00:00:00 [facility] HEPATITIS A 2006-09-24 Completed [facility] 00:00:00 [facility] HEPATITIS A 2006-09-24 Completed [facility] 00:00:00 [facility] HEPATITIS A 2006-09-24 Completed [facility] 00:00:00 [facility] HEPATITIS A 2006-09-24 Completed [facility] 00:00:00 [facility] HEPATITIS A 2006-09-24 Completed [facility] 00:00:00 [facility] HEPATITIS A 2006-09-24 Completed [facility] 00:00:00 [facility] HEPATITIS A 2006-09-24 Completed [facility] 00:00:00 [facility] HEPATITIS A 2006-09-24 Completed [facility] 00:00:00 [facility] HEPATITIS A 2006-09-24 Completed [facility] 00:00:00 [facility] HEPATITIS A 2006-09-24 Completed [facility] 00:00:00 [facility] HEPATITIS A 2006-09-24 Completed [facility] 00:00:00 [facility] HEPATITIS A 2006-09-24 Completed [facility] 00:00:00 [facility] HEPATITIS A 2006-09-24 Completed [facility] 00:00:00 [facility] HEPATITIS A 2006-09-24 Completed [facility] 00:00:00 [facility] HEPATITIS A 2006-09-24 Completed [facility] 00:00:00 [facility] HEPATITIS A 2006-09-24 Completed [facility] 00:00:00 [facility] HEPATITIS A 2006-09-24 Completed [facility] 00:00:00 [facility] HEPATITIS A 2006-09-24 Completed [facility] 00:00:00 [facility] HEPATITIS A 2006-09-24 Completed [facility] 00:00:00 [facility] HEPATITIS A 2006-09-24 Completed [facility] 00:00:00 [facility] HEPATITIS A 2006-09-24 Completed [facility] 00:00:00 [facility] HEPATITIS A 2006-09-24 Completed [facility] 00:00:00 [facility] HEPATITIS A 2006-09-24 Completed [facility] 00:00:00 [facility] HEPATITIS A 2006-09-24 Completed [facility] 00:00:00 [facility] HEPATITIS A 2006-09-24 Completed [facility] 00:00:00 [facility] HEPATITIS A 2006-09-24 Completed [facility] 00:00:00 [facility] HEPATITIS A 2006-09-24 Completed [facility] 00:00:00 [facility] HEPATITIS A 2006-09-24 Completed [facility] 00:00:00 [facility] HEPATITIS A 2006-09-24 Completed [facility] 00:00:00 [facility] HEPATITIS A 2006-09-24 Completed [facility] 00:00:00 [facility] HEPATITIS A 2006-09-24 Completed [facility] 00:00:00 [facility] HEPATITIS A 2006-09-24 Completed [facility] 00:00:00 [facility] HEPATITIS A 2006-09-24 Completed [facility] 00:00:00 [facility] HEPATITIS A 2006-09-24 Completed [facility] 00:00:00 [facility] HEPATITIS A 2006-09-24 Completed [facility] 00:00:00 [facility] HEPATITIS A 2006-09-24 Completed [facility] 00:00:00 [facility] HEPATITIS A 2006-09-24 Completed [facility] 00:00:00 [facility] HEPATITIS A 2006-09-24 Completed [facility] 00:00:00 [facility] HEPATITIS A 2006-09-24 Completed [facility] 00:00:00 [facility] HEPATITIS A 2006-09-24 Completed [facility] 00:00:00 [facility] HEPATITIS A 2006-09-24 Completed [facility] 00:00:00 [facility] HEPATITIS A 2006-09-24 Completed [facility] 00:00:00 [facility] HEPATITIS A 2006-09-24 Completed [facility] 00:00:00 [facility] HEPATITIS A 2006-09-24 Completed [facility] 00:00:00 [facility] HEPATITIS A 2006-09-24 Completed [facility] 00:00:00 [facility] HEPATITIS A 2006-09-24 Completed [facility] 00:00:00 [facility] HEPATITIS A 2006-09-24 Completed [facility] 00:00:00 [facility] Polio (IPV/OPV) 2004-05-07 Completed [facility] 00:00:00 [facility] DTAP 2004-05-07 Completed [facility] 00:00:00 [facility] MMR 2004-05-07 Completed [facility] 00:00:00 [facility] Polio (IPV/OPV) 2004-05-07 Completed [facility] 00:00:00 [facility] DTAP 2004-05-07 Completed [facility] 00:00:00 [facility] MMR 2004-05-07 Completed [facility] 00:00:00 [facility] MMR 2004-05-07 Completed [facility] 00:00:00 [facility] Polio (IPV/OPV) 2004-05-07 Completed [facility] 00:00:00 [facility] DTAP 2004-05-07 Completed [facility] 00:00:00 [facility] MMR 2004-05-07 Completed [facility] 00:00:00 [facility] Polio (IPV/OPV) 2004-05-07 Completed [facility] 00:00:00 [facility] Polio (IPV/OPV) 2004-05-07 Completed [facility] 00:00:00 [facility] DTAP 2004-05-07 Completed [facility] 00:00:00 [facility] MMR 2004-05-07 Completed [facility] 00:00:00 [facility] Polio (IPV/OPV) 2004-05-07 Completed [facility] 00:00:00 [facility] DTAP 2004-05-07 Completed [facility] 00:00:00 [facility] MMR 2004-05-07 Completed [facility] 00:00:00 [facility] Polio (IPV/OPV) 2004-05-07 Completed [facility] 00:00:00 [facility] DTAP 2004-05-07 Completed [facility] 00:00:00 [facility] MMR 2004-05-07 Completed [facility] 00:00:00 [facility] Polio (IPV/OPV) 2004-05-07 Completed [facility] 00:00:00 [facility] DTAP 2004-05-07 Completed [facility] 00:00:00 [facility] MMR 2004-05-07 Completed [facility] 00:00:00 [facility] Polio (IPV/OPV) 2004-05-07 Completed [facility] 00:00:00 [facility] DTAP 2004-05-07 Completed [facility] 00:00:00 [facility] MMR 2004-05-07 Completed [facility] 00:00:00 [facility] Polio (IPV/OPV) 2004-05-07 Completed [facility] 00:00:00 [facility] DTAP 2004-05-07 Completed [facility] 00:00:00 [facility] MMR 2004-05-07 Completed [facility] 00:00:00 [facility] Polio (IPV/OPV) 2004-05-07 Completed [facility] 00:00:00 [facility] DTAP 2004-05-07 Completed [facility] 00:00:00 [facility] MMR 2004-05-07 Completed [facility] 00:00:00 [facility] Polio (IPV/OPV) 2004-05-07 Completed [facility] 00:00:00 [facility] DTAP 2004-05-07 Completed [facility] 00:00:00 [facility] DTAP 2004-05-07 Completed [facility] 00:00:00 [facility] MMR 2004-05-07 Completed [facility] 00:00:00 [facility] Polio (IPV/OPV) 2004-05-07 Completed [facility] 00:00:00 [facility] DTAP 2004-05-07 Completed [facility] 00:00:00 [facility] MMR 2004-05-07 Completed [facility] 00:00:00 [facility] Polio (IPV/OPV) 2004-05-07 Completed [facility] 00:00:00 [facility] DTAP 2004-05-07 Completed [facility] 00:00:00 [facility] MMR 2004-05-07 Completed [facility] 00:00:00 [facility] Polio (IPV/OPV) 2004-05-07 Completed [facility] 00:00:00 [facility] DTAP 2004-05-07 Completed [facility] 00:00:00 [facility] MMR 2004-05-07 Completed [facility] 00:00:00 [facility] MMR 2004-05-07 Completed [facility] 00:00:00 [facility] Polio (IPV/OPV) 2004-05-07 Completed [facility] 00:00:00 [facility] DTAP 2004-05-07 Completed [facility] 00:00:00 [facility] MMR 2004-05-07 Completed [facility] 00:00:00 [facility] Polio (IPV/OPV) 2004-05-07 Completed [facility] 00:00:00 [facility] Polio (IPV/OPV) 2004-05-07 Completed [facility] 00:00:00 [facility] DTAP 2004-05-07 Completed [facility] 00:00:00 [facility] MMR 2004-05-07 Completed [facility] 00:00:00 [facility] Polio (IPV/OPV) 2004-05-07 Completed [facility] 00:00:00 [facility] DTAP 2004-05-07 Completed [facility] 00:00:00 [facility] MMR 2004-05-07 Completed [facility] 00:00:00 [facility] Polio (IPV/OPV) 2004-05-07 Completed [facility] 00:00:00 [facility] DTAP 2004-05-07 Completed [facility] 00:00:00 [facility] MMR 2004-05-07 Completed [facility] 00:00:00 [facility] Polio (IPV/OPV) 2004-05-07 Completed [facility] 00:00:00 [facility] DTAP 2004-05-07 Completed [facility] 00:00:00 [facility] MMR 2004-05-07 Completed [facility] 00:00:00 [facility] Polio (IPV/OPV) 2004-05-07 Completed [facility] 00:00:00 [facility] DTAP 2004-05-07 Completed [facility] 00:00:00 [facility] MMR 2004-05-07 Completed [facility] 00:00:00 [facility] Polio (IPV/OPV) 2004-05-07 Completed [facility] 00:00:00 [facility] DTAP 2004-05-07 Completed [facility] 00:00:00 [facility] MMR 2004-05-07 Completed [facility] 00:00:00 [facility] Polio (IPV/OPV) 2004-05-07 Completed [facility] 00:00:00 [facility] DTAP 2004-05-07 Completed [facility] 00:00:00 [facility] DTAP 2004-05-07 Completed [facility] 00:00:00 [facility] MMR 2004-05-07 Completed [facility] 00:00:00 [facility] Polio (IPV/OPV) 2004-05-07 Completed [facility] 00:00:00 [facility] DTAP 2004-05-07 Completed [facility] 00:00:00 [facility] MMR 2004-05-07 Completed [facility] 00:00:00 [facility] Polio (IPV/OPV) 2004-05-07 Completed [facility] 00:00:00 [facility] DTAP 2004-05-07 Completed [facility] 00:00:00 [facility] MMR 2004-05-07 Completed [facility] 00:00:00 [facility] MMR 2004-05-07 Completed [facility] 00:00:00 [facility] Polio (IPV/OPV) 2004-05-07 Completed [facility] 00:00:00 [facility] DTAP 2004-05-07 Completed [facility] 00:00:00 [facility] MMR 2004-05-07 Completed [facility] 00:00:00 [facility] Polio (IPV/OPV) 2004-05-07 Completed [facility] 00:00:00 [facility] DTAP 2004-05-07 Completed [facility] 00:00:00 [facility] Polio (IPV/OPV) 2004-05-07 Completed [facility] 00:00:00 [facility] MMR 2004-05-07 Completed [facility] 00:00:00 [facility] Polio (IPV/OPV) 2004-05-07 Completed [facility] 00:00:00 [facility] DTAP 2004-05-07 Completed [facility] 00:00:00 [facility] MMR 2004-05-07 Completed [facility] 00:00:00 [facility] Polio (IPV/OPV) 2004-05-07 Completed [facility] 00:00:00 [facility] DTAP 2004-05-07 Completed [facility] 00:00:00 [facility] MMR 2004-05-07 Completed [facility] 00:00:00 [facility] Polio (IPV/OPV) 2004-05-07 Completed [facility] 00:00:00 [facility] DTAP 2004-05-07 Completed [facility] 00:00:00 [facility] MMR 2004-05-07 Completed [facility] 00:00:00 [facility] Polio (IPV/OPV) 2004-05-07 Completed [facility] 00:00:00 [facility] DTAP 2004-05-07 Completed [facility] 00:00:00 [facility] DTAP 2004-05-07 Completed [facility] 00:00:00 [facility] MMR 2004-05-07 Completed [facility] 00:00:00 [facility] Polio (IPV/OPV) 2004-05-07 Completed [facility] 00:00:00 [facility] DTAP 2004-05-07 Completed [facility] 00:00:00 [facility] MMR 2004-05-07 Completed [facility] 00:00:00 [facility] Polio (IPV/OPV) 2004-05-07 Completed [facility] 00:00:00 [facility] DTAP 2004-05-07 Completed [facility] 00:00:00 [facility] MMR 2004-05-07 Completed [facility] 00:00:00 [facility] Polio (IPV/OPV) 2004-05-07 Completed [facility] 00:00:00 [facility] MMR 2004-05-07 Completed [facility] 00:00:00 [facility] DTAP 2004-05-07 Completed [facility] 00:00:00 [facility] MMR 2004-05-07 Completed [facility] 00:00:00 [facility] Polio (IPV/OPV) 2004-05-07 Completed [facility] 00:00:00 [facility] DTAP 2004-05-07 Completed [facility] 00:00:00 [facility] Polio (IPV/OPV) 2004-05-07 Completed [facility] 00:00:00 [facility] MMR 2004-05-07 Completed [facility] 00:00:00 [facility] Polio (IPV/OPV) 2004-05-07 Completed [facility] 00:00:00 [facility] DTAP 2004-05-07 Completed [facility] 00:00:00 [facility] MMR 2004-05-07 Completed [facility] 00:00:00 [facility] Polio (IPV/OPV) 2004-05-07 Completed [facility] 00:00:00 [facility] DTAP 2004-05-07 Completed [facility] 00:00:00 [facility] MMR 2004-05-07 Completed [facility] 00:00:00 [facility] Polio (IPV/OPV) 2004-05-07 Completed [facility] 00:00:00 [facility] DTAP 2004-05-07 Completed [facility] 00:00:00 [facility] MMR 2004-05-07 Completed [facility] 00:00:00 [facility] Polio (IPV/OPV) 2004-05-07 Completed [facility] 00:00:00 [facility] DTAP 2004-05-07 Completed [facility] 00:00:00 [facility] MMR 2004-05-07 Completed [facility] 00:00:00 [facility] Polio (IPV/OPV) 2004-05-07 Completed [facility] 00:00:00 [facility] DTAP 2004-05-07 Completed [facility] 00:00:00 [facility] DTAP 2004-05-07 Completed [facility] 00:00:00 [facility] MMR 2004-05-07 Completed [facility] 00:00:00 [facility] Polio (IPV/OPV) 2004-05-07 Completed [facility] 00:00:00 [facility] DTAP 2004-05-07 Completed [facility] 00:00:00 [facility] MMR 2004-05-07 Completed [facility] 00:00:00 [facility] Polio (IPV/OPV) 2004-05-07 Completed [facility] 00:00:00 [facility] DTAP 2004-05-07 Completed [facility] 00:00:00 [facility] MMR 2004-05-07 Completed [facility] 00:00:00 [facility] MMR 2004-05-07 Completed [facility] 00:00:00 [facility] Polio (IPV/OPV) 2004-05-07 Completed [facility] 00:00:00 [facility] DTAP 2004-05-07 Completed [facility] 00:00:00 [facility] MMR 2004-05-07 Completed [facility] 00:00:00 [facility] Polio (IPV/OPV) 2004-05-07 Completed [facility] 00:00:00 [facility] Polio (IPV/OPV) 2004-05-07 Completed [facility] 00:00:00 [facility] DTAP 2004-05-07 Completed [facility] 00:00:00 [facility] MMR 2004-05-07 Completed [facility] 00:00:00 [facility] Polio (IPV/OPV) 2004-05-07 Completed [facility] 00:00:00 [facility] DTAP 2004-05-07 Completed [facility] 00:00:00 [facility] MMR 2004-05-07 Completed [facility] 00:00:00 [facility] Polio (IPV/OPV) 2004-05-07 Completed [facility] 00:00:00 [facility] DTAP 2004-05-07 Completed [facility] 00:00:00 [facility] MMR 2004-05-07 Completed [facility] 00:00:00 [facility] Polio (IPV/OPV) 2004-05-07 Completed [facility] 00:00:00 [facility] DTAP 2004-05-07 Completed [facility] 00:00:00 [facility] MMR 2004-05-07 Completed [facility] 00:00:00 [facility] Polio (IPV/OPV) 2004-05-07 Completed [facility] 00:00:00 [facility] DTAP 2004-05-07 Completed [facility] 00:00:00 [facility] DTAP 2004-05-07 Completed [facility] 00:00:00 [facility] MMR 2004-05-07 Completed [facility] 00:00:00 [facility] Polio (IPV/OPV) 2004-05-07 Completed [facility] 00:00:00 [facility] DTAP 2004-05-07 Completed [facility] 00[facility]:00 [facility] MMR 2004-05-07 Completed [facility] 00:00:00 [facility] Polio (IPV/OPV) 2004-05-07 Completed [facility] 00:[facility]:00 [facility] MMR 2004-05-07 Completed [facility] 00:00:00 [facility] DTAP 2004-05-07 Completed [facility] 00:00:00 [facility] MMR 2004-05-07 Completed [facility] 00:00:00 [facility] Polio (IPV/OPV) 2004-05-07 Completed [facility] 00:00:00 [facility] Polio (IPV/OPV) 2004-05-07 Completed [facility] 00:00:00 [facility] DTAP 2004-05-07 Completed [facility] 00:00:00 [facility] MMR 2004-05-07 Completed [facility] 00:00:00 [facility] Polio (IPV/OPV) 2004-05-07 Completed [facility] 00:00:00 [facility] DTAP 2004-05-07 Completed [facility] 00:00:00 [facility] MMR 2004-05-07 Completed [facility] 00:00:00 [facility] Polio (IPV/OPV) 2004-05-07 Completed [facility] 00:00:00 [facility] DTAP 2004-05-07 Completed [facility] 00:00:00 [facility] MMR 2004-05-07 Completed [facility] 00:00:00 [facility] Polio (IPV/OPV) 2004-05-07 Completed [facility] 00:00:00 [facility] DTAP 2004-05-07 Completed [facility] 00:00:00 [facility] MMR 2004-05-07 Completed [facility] 00:00:00 [facility] Polio (IPV/OPV) 2004-05-07 Completed [facility] 00:00:00 [facility] DTAP 2004-05-07 Completed [facility] 00:00:00 [facility] MMR 2004-05-07 Completed [facility] 00:00:00 [facility] Polio (IPV/OPV) 2004-05-07 Completed [facility] 00:00:00 [facility] DTAP 2004-05-07 Completed [facility] 00:00:00 [facility] DTAP 2004-05-07 Completed [facility] 00:00:00 [facility] MMR 2004-05-07 Completed [facility] 00:00:00 [facility] Polio (IPV/OPV) 2004-05-07 Completed [facility] 00:00:00 [facility] DTAP 2004-05-07 Completed [facility] 00:00:00 [facility] MMR 2004-05-07 Completed [facility] 00:00:00 [facility] Polio (IPV/OPV) 2004-05-07 Completed [facility] 00:00:00 [facility] DTAP 2004-05-07 Completed [facility] 00:00:00 [facility] MMR 2004-05-07 Completed [facility] 00:00:00 [facility] MMR 2004-05-07 Completed [facility] 00:00:00 [facility] Polio (IPV/OPV) 2004-05-07 Completed [facility] 00:00:00 [facility] DTAP 2004-05-07 Completed [facility] 00:00:00 [facility] MMR 2004-05-07 Completed [facility] 00:00:00 [facility] Polio (IPV/OPV) 2004-05-07 Completed [facility] 00:00:00 [facility] Polio (IPV/OPV) 2004-05-07 Completed [facility] 00:00:00 [facility] DTAP 2004-05-07 Completed [facility] 00:00:00 [facility] MMR 2004-05-07 Completed [facility] 00:00:00 [facility] Polio (IPV/OPV) 2004-05-07 Completed [facility] 00:00:00 [facility] DTAP 2004-05-07 Completed [facility] 00:00:00 [facility] MMR 2004-05-07 Completed [facility] 00:00:00 [facility] Polio (IPV/OPV) 2004-05-07 Completed [facility] 00:00:00 [facility] DTAP 2004-05-07 Completed [facility] 00:00:00 [facility] MMR 2004-05-07 Completed [facility] 00:00:00 [facility] Polio (IPV/OPV) 2004-05-07 Completed [facility] 00:00:00 [facility] DTAP 2004-05-07 Completed [facility] 00:00:00 [facility] MMR 2004-05-07 Completed [facility] 00:00:00 [facility] Polio (IPV/OPV) 2004-05-07 Completed [facility] 00:00:00 [facility] DTAP 2004-05-07 Completed [facility] 00:00:00 [facility] MMR 2004-05-07 Completed [facility] 00:00:00 [facility] Polio (IPV/OPV) 2004-05-07 Completed [facility] 00:00:00 [facility] DTAP 2004-05-07 Completed [facility] 00:00:00 [facility] DTAP 2004-05-07 Completed [facility] 00:00:00 [facility] MMR 2004-05-07 Completed [facility] 00:00:00 [facility] Polio (IPV/OPV) 2004-05-07 Completed [facility] 00:00:00 [facility] DTAP 2004-05-07 Completed [facility] 00:00:00 [facility] MMR 2004-05-07 Completed [facility] 00:00:00 [facility] Polio (IPV/OPV) 2004-05-07 Completed [facility] 00:00:00 [facility] DTAP 2004-05-07 Completed [facility] 00:00:00 [facility] MMR 2004-05-07 Completed [facility] 00:00:00 [facility] Polio (IPV/OPV) 2004-05-07 Completed [facility] 00:00:00 [facility] MMR 2004-05-07 Completed [facility] 00:00:00 [facility] DTAP 2004-05-07 Completed [facility] 00:00:00 [facility] MMR 2004-05-07 Completed [facility] 00:00:00 [facility] Polio (IPV/OPV) 2004-05-07 Completed [facility] 00:00:00 [facility] Polio (IPV/OPV) 2004-05-07 Completed [facility] 00:00:00 [facility] DTAP 2004-05-07 Completed [facility] 00:00:00 [facility] MMR 2004-05-07 Completed [facility] 00:00:00 [facility] Polio (IPV/OPV) 2004-05-07 Completed [facility] 00:00:00 [facility] DTAP 2004-05-07 Completed [facility] 00:00:00 [facility] MMR 2004-05-07 Completed [facility] 00:00:00 [facility] Polio (IPV/OPV) 2004-05-07 Completed [facility] 00:00:00 [facility] DTAP 2004-05-07 Completed [facility] 00:00:00 [facility] MMR 2004-05-07 Completed [facility] 00:00:00 [facility] Polio (IPV/OPV) 2004-05-07 Completed [facility] 00:00:00 [facility] DTAP 2004-05-07 Completed [facility] 00:00:00 [facility] MMR 2004-05-07 Completed [facility] 00:00:00 [facility] Polio (IPV/OPV) 2004-05-07 Completed [facility] 00:00:00 [facility] DTAP 2004-05-07 Completed [facility] 00:00:00 [facility] DTAP 2004-05-07 Completed [facility] 00:00:00 [facility] MMR 2004-05-07 Completed [facility] 00:00:00 [facility] Polio (IPV/OPV) 2004-05-07 Completed [facility] 00:00:00 [facility] DTAP 2004-05-07 Completed [facility] 00:00:00 [facility] MMR 2004-05-07 Completed [facility] 00:00:00 [facility] Polio (IPV/OPV) 2004-05-07 Completed [facility] 00:00:00 [facility] DTAP 2004-05-07 Completed [facility] 00:00:00 [facility] MMR 2004-05-07 Completed [facility] 00:00:00 [facility] Polio (IPV/OPV) 2004-05-07 Completed [facility] 00:00:00 [facility] MMR 2004-05-07 Completed [facility] 00:00:00 [facility] DTAP 2004-05-07 Completed [facility] 00:00:00 [facility] MMR 2004-05-07 Completed [facility] 00:00:00 [facility] Polio (IPV/OPV) 2004-05-07 Completed [facility] 00:00:00 [facility] Polio (IPV/OPV) 2004-05-07 Completed [facility] 00:00:00 [facility] DTAP 2004-05-07 Completed [facility] 00:00:00 [facility] MMR 2004-05-07 Completed [facility] 00:00:00 [facility] Polio (IPV/OPV) 2004-05-07 Completed [facility] 00:00:00 [facility] DTAP 2004-05-07 Completed [facility] 00:00:00 [facility] MMR 2004-05-07 Completed [facility] 00:00:00 [facility] Polio (IPV/OPV) 2004-05-07 Completed [facility] 00:00:00 [facility] DTAP 2004-05-07 Completed [facility] 00:00:00 [facility] MMR 2004-05-07 Completed [facility] 00:00:00 [facility] Polio (IPV/OPV) 2004-05-07 Completed [facility] 00:00:00 [facility] DTAP 2004-05-07 Completed [facility] 00:00:00 [facility] MMR 2004-05-07 Completed [facility] 00:00:00 [facility] Polio (IPV/OPV) 2004-05-07 Completed [facility] 00:00:00 [facility] DTAP 2004-05-07 Completed [facility] 00:00:00 [facility] MMR 2004-05-07 Completed [facility] 00:00:00 [facility] Polio (IPV/OPV) 2004-05-07 Completed [facility] 00:00:00 [facility] DTAP 2004-05-07 Completed [facility] 00:00:00 [facility] DTAP 2004-05-07 Completed [facility] 00:00:00 [facility] MMR 2004-05-07 Completed [facility] 00:00:00 [facility] Polio (IPV/OPV) 2004-05-07 Completed [facility] 00:00:00 [facility] DTAP 2004-05-07 Completed [facility] 00:00:00 [facility] MMR 2004-05-07 Completed [facility] 00:00:00 [facility] Polio (IPV/OPV) 2004-05-07 Completed [facility] 00:00:00 [facility] MMR 2004-05-07 Completed [facility] 00:00:00 [facility] DTAP 2004-05-07 Completed [facility] 00:00:00 [facility] MMR 2004-05-07 Completed [facility] 00:00:00 [facility] Polio (IPV/OPV) 2004-05-07 Completed [facility] 00:00:00 [facility] Polio (IPV/OPV) 2004-05-07 Completed [facility] 00:00:00 [facility] DTAP 2004-05-07 Completed [facility] 00:00:00 [facility] MMR 2004-05-07 Completed [facility] 00:00:00 [facility] Polio (IPV/OPV) 2004-05-07 Completed [facility] 00:00:00 [facility] DTAP 2004-05-07 Completed [facility] 00:00:00 [facility] MMR 2004-05-07 Completed [facility] 00:00:00 [facility] Polio (IPV/OPV) 2004-05-07 Completed [facility] 00:00:00 [facility] DTAP 2004-05-07 Completed [facility] 00:00:00 [facility] MMR 2004-05-07 Completed [facility] 00:00:00 [facility] Polio (IPV/OPV) 2004-05-07 Completed [facility] 00:00:00 [facility] DTAP 2004-05-07 Completed [facility] 00:00:00 [facility] MMR 2004-05-07 Completed [facility] 00:00:00 [facility] Polio (IPV/OPV) 2004-05-07 Completed [facility] 00:00:00 [facility] DTAP 2004-05-07 Completed [facility] 00:00:00 [facility] DTAP 2004-05-07 Completed [facility] 00:00:00 [facility] MMR 2004-05-07 Completed [facility] 00:00:00 [facility] Polio (IPV/OPV) 2004-05-07 Completed [facility] 00:00:00 [facility] DTAP 2004-05-07 Completed [facility] 00:00:00 [facility] DTAP 2004-05-07 Completed [facility] 00:00:00 [facility] MMR 2004-05-07 Completed [facility] 00:00:00 [facility] Polio (IPV/OPV) 2004-05-07 Completed [facility] 00:00:00 [facility] DTAP 2004-05-07 Completed [facility] 00:00:00 [facility] MMR 2004-05-07 Completed [facility] 00:00:00 [facility] Polio (IPV/OPV) 2004-05-07 Completed [facility] 00:00:00 [facility] DTAP 2004-05-07 Completed [facility] 00:00:00 [facility] MMR 2004-05-07 Completed [facility] 00:00:00 [facility] MMR 2004-05-07 Completed [facility] 00:00:00 [facility] Polio (IPV/OPV) 2004-05-07 Completed [facility] 00:00:00 [facility] DTAP 2004-05-07 Completed [facility] 00:00:00 [facility] MMR 2004-05-07 Completed [facility] 00:00:00 [facility] Polio (IPV/OPV) 2004-05-07 Completed [facility] 00:00:00 [facility] Polio (IPV/OPV) 2004-05-07 Completed [facility] 00:00:00 [facility] DTAP 2004-05-07 Completed [facility] 00:00:00 [facility] MMR 2004-05-07 Completed [facility] 00:00:00 [facility] Polio (IPV/OPV) 2004-05-07 Completed [facility] 00:00:00 [facility] DTAP 2004-05-07 Completed [facility] 00:00:00 [facility] MMR 2004-05-07 Completed [facility] 00:00:00 [facility] Polio (IPV/OPV) 2004-05-07 Completed [facility] 00:00:00 [facility] DTAP 2004-05-07 Completed [facility] 00:00:00 [facility] MMR 2004-05-07 Completed [facility] 00:00:00 [facility] Polio (IPV/OPV) 2004-05-07 Completed [facility] 00:00:00 [facility] DTAP 2004-05-07 Completed [facility] 00:00:00 [facility] MMR 2004-05-07 Completed [facility] 00:00:00 [facility] Polio (IPV/OPV) 2004-05-07 Completed [facility] 00:00:00 [facility] DTAP 2004-05-07 Completed [facility] 00:00:00 [facility] DTAP 2004-05-07 Completed [facility] 00:00:00 [facility] MMR 2004-05-07 Completed [facility] 00:00:00 [facility] Polio (IPV/OPV) 2004-05-07 Completed [facility] 00:00:00 [facility] DTAP 2004-05-07 Completed [facility] 00:00:00 [facility] MMR 2004-05-07 Completed [facility] 00:00:00 [facility] Polio (IPV/OPV) 2004-05-07 Completed [facility] 00:00:00 [facility] DTAP 2004-05-07 Completed [facility] 00:00:00 [facility] MMR 2004-05-07 Completed [facility] 00:00:00 [facility] MMR 2004-05-07 Completed [facility] 00:00:00 [facility] Polio (IPV/OPV) 2004-05-07 Completed [facility] 00:00:00 [facility] DTAP 2004-05-07 Completed [facility] 00:00:00 [facility] MMR 2004-05-07 Completed [facility] 00:00:00 [facility] Polio (IPV/OPV) 2004-05-07 Completed [facility] 00:00:00 [facility] Polio (IPV/OPV) 2004-05-07 Completed [facility] 00:00:00 [facility] DTAP 2004-05-07 Completed [facility] 00:00:00 [facility] MMR 2004-05-07 Completed [facility] 00:00:00 [facility] Polio (IPV/OPV) 2004-05-07 Completed [facility] 00:00:00 [facility] DTAP 2004-05-07 Completed [facility] 00:00:00 [facility] MMR 2004-05-07 Completed [facility] 00:00:00 [facility] Polio (IPV/OPV) 2004-05-07 Completed [facility] 00:00:00 [facility] DTAP 2004-05-07 Completed [facility] 00:00:00 [facility] MMR 2004-05-07 Completed [facility] 00:00:00 [facility] Polio (IPV/OPV) 2004-05-07 Completed [facility] 00:00:00 [facility] DTAP 2004-05-07 Completed [facility] 00:00:00 [facility] MMR 2004-05-07 Completed [facility] 00:00:00 [facility] Polio (IPV/OPV) 2004-05-07 Completed [facility] 00:00:00 [facility] DTAP 2004-05-07 Completed [facility] 00:00:00 [facility] MMR 2004-05-07 Completed [facility] 00:00:00 [facility] Polio (IPV/OPV) 2004-05-07 Completed [facility] 00:00:00 [facility] DTAP 2004-05-07 Completed [facility] 00:00:00 [facility] MMR 2004-05-07 Completed [facility] 00:00:00 [facility] Polio (IPV/OPV) 2004-05-07 Completed [facility] 00:00:00 [facility] DTAP 2004-05-07 Completed [facility] 00:00:00 [facility] MMR 2004-05-07 Completed [facility] 00:00:00 [facility] Polio (IPV/OPV) 2004-05-07 Completed [facility] 00:00:00 [facility] DTAP 2004-05-07 Completed [facility] 00:00:00 [facility] MMR 2004-05-07 Completed [facility] 00:00:00 [facility] MMR 2004-05-07 Completed [facility] 00:00:00 [facility] Polio (IPV/OPV) 2004-05-07 Completed [facility] 00:00:00 [facility] DTAP 2004-05-07 Completed [facility] 00:00:00 [facility] MMR 2004-05-07 Completed [facility] 00:00:00 [facility] Polio (IPV/OPV) 2004-05-07 Completed [facility] 00:00:00 [facility] Polio (IPV/OPV) 2004-05-07 Completed [facility] 00:00:00 [facility] DTAP 2004-05-07 Completed [facility] 00:00:00 [facility] MMR 2004-05-07 Completed [facility] 00:00:00 [facility] Polio (IPV/OPV) 2004-05-07 Completed [facility] 00:00:00 [facility] DTAP 2004-05-07 Completed [facility] 00:00:00 [facility] MMR 2004-05-07 Completed [facility] 00:00:00 [facility] Polio (IPV/OPV) 2004-05-07 Completed [facility] 00:00:00 [facility] DTAP 2004-05-07 Completed [facility] 00:00:00 [facility] MMR 2004-05-07 Completed [facility] 00:00:00 [facility] Polio (IPV/OPV) 2004-05-07 Completed [facility] 00:00:00 [facility] DTAP 2004-05-07 Completed [facility] 00:00:00 [facility] MMR 2004-05-07 Completed [facility] 00:00:00 [facility] Polio (IPV/OPV) 2004-05-07 Completed [facility] 00:00:00 [facility] DTAP 2004-05-07 Completed [facility] 00:00:00 [facility] MMR 2004-05-07 Completed [facility] 00:00:00 [facility] Polio (IPV/OPV) 2004-05-07 Completed [facility] 00:00:00 [facility] DTAP 2004-05-07 Completed [facility] 00:00:00 [facility] DTAP 2004-05-07 Completed [facility] 00:00:00 [facility] MMR 2004-05-07 Completed [facility] 00:00:00 [facility] HIB 4 Dose Schedule 2001-10-27 Completed [facility] 00:00:00 [facility] DTAP 2001-10-27 Completed [facility] 00:00:00 [facility] HIB 4 Dose Schedule 2001-10-27 Completed [facility] 00:00:00 [facility] DTAP 2001-10-27 Completed [facility] 00:00:00 [facility] HIB 4 Dose Schedule 2001-10-27 Completed [facility] 00:00:00 [facility] DTAP 2001-10-27 Completed [facility] 00:00:00 [facility] HIB 4 Dose Schedule 2001-10-27 Completed [facility] 00:00:00 [facility] DTAP 2001-10-27 Completed [facility] 00:00:00 [facility] HIB 4 Dose Schedule 2001-10-27 Completed [facility] 00:00:00 [facility] DTAP 2001-10-27 Completed [facility] 00:00:00 [facility] HIB 4 Dose Schedule 2001-10-27 Completed [facility] 00:00:00 [facility] DTAP 2001-10-27 Completed [facility] 00:00:00 [facility] HIB 4 Dose Schedule 2001-10-27 Completed [facility] 00:00:00 [facility] DTAP 2001-10-27 Completed [facility] 00:00:00 [facility] HIB 4 Dose Schedule 2001-10-27 Completed [facility] 00:00:00 [facility] DTAP 2001-10-27 Completed [facility] 00:00:00 [facility] HIB 4 Dose Schedule 2001-10-27 Completed [facility] 00:00:00 [facility] DTAP 2001-10-27 Completed [facility] 00:00:00 [facility] HIB 4 Dose Schedule 2001-10-27 Completed [facility] 00:00:00 [facility] DTAP 2001-10-27 Completed [facility] 00:00:00 [facility] HIB 4 Dose Schedule 2001-10-27 Completed [facility] 00:00:00 [facility] DTAP 2001-10-27 Completed [facility] 00:00:00 [facility] DTAP 2001-10-27 Completed [facility] 00:00:00 [facility] HIB 4 Dose Schedule 2001-10-27 Completed [facility] 00:00:00 [facility] DTAP 2001-10-27 Completed [facility] 00:00:00 [facility] HIB 4 Dose Schedule 2001-10-27 Completed [facility] 00:00:00 [facility] HIB 4 Dose Schedule 2001-10-27 Completed [facility] 00:00:00 [facility] DTAP 2001-10-27 Completed [facility] 00:00:00 [facility] HIB 4 Dose Schedule 2001-10-27 Completed [facility] 00:00:00 [facility] DTAP 2001-10-27 Completed [facility] 00:00:00 [facility] HIB 4 Dose Schedule 2001-10-27 Completed [facility] 00:00:00 [facility] DTAP 2001-10-27 Completed [facility] 00:00:00 [facility] HIB 4 Dose Schedule 2001-10-27 Completed [facility] 00:00:00 [facility] DTAP 2001-10-27 Completed [facility] 00:00:00 [facility] HIB 4 Dose Schedule 2001-10-27 Completed [facility] 00:00:00 [facility] DTAP 2001-10-27 Completed [facility] 00:00:00 [facility] HIB 4 Dose Schedule 2001-10-27 Completed [facility] 00:00:00 [facility] DTAP 2001-10-27 Completed [facility] 00:00:00 [facility] HIB 4 Dose Schedule 2001-10-27 Completed [facility] 00:00:00 [facility] DTAP 2001-10-27 Completed [facility] 00:00:00 [facility] HIB 4 Dose Schedule 2001-10-27 Completed [facility] 00:00:00 [facility] DTAP 2001-10-27 Completed [facility] 00:00:00 [facility] HIB 4 Dose Schedule 2001-10-27 Completed [facility] 00:00:00 [facility] DTAP 2001-10-27 Completed [facility] 00:00:00 [facility] HIB 4 Dose Schedule 2001-10-27 Completed [facility] 00:00:00 [facility] DTAP 2001-10-27 Completed [facility] 00:00:00 [facility] DTAP 2001-10-27 Completed [facility] 00:00:00 [facility] HIB 4 Dose Schedule 2001-10-27 Completed [facility] 00:00:00 [facility] HIB 4 Dose Schedule 2001-10-27 Completed [facility] 00:00:00 [facility] DTAP 2001-10-27 Completed [facility] 00:00:00 [facility] HIB 4 Dose Schedule 2001-10-27 Completed [facility] 00:00:00 [facility] DTAP 2001-10-27 Completed [facility] 00:00:00 [facility] HIB 4 Dose Schedule 2001-10-27 Completed [facility] 00:00:00 [facility] DTAP 2001-10-27 Completed [facility] 00:00:00 [facility] HIB 4 Dose Schedule 2001-10-27 Completed [facility] 00:00:00 [facility] DTAP 2001-10-27 Completed [facility] 00:00:00 [facility] HIB 4 Dose Schedule 2001-10-27 Completed [facility] 00:00:00 [facility] DTAP 2001-10-27 Completed [facility] 00:00:00 [facility] HIB 4 Dose Schedule 2001-10-27 Completed [facility] 00:00:00 [facility] DTAP 2001-10-27 Completed [facility] 00:00:00 [facility] HIB 4 Dose Schedule 2001-10-27 Completed [facility] 00:00:00 [facility] DTAP 2001-10-27 Completed [facility] 00:00:00 [facility] HIB 4 Dose Schedule 2001-10-27 Completed [facility] 00:00:00 [facility] DTAP 2001-10-27 Completed [facility] 00:00:00 [facility] DTAP 2001-10-27 Completed [facility] 00:00:00 [facility] HIB 4 Dose Schedule 2001-10-27 Completed [facility] 00:00:00 [facility] HIB 4 Dose Schedule 2001-10-27 Completed [facility] 00:00:00 [facility] DTAP 2001-10-27 Completed [facility] 00:00:00 [facility] HIB 4 Dose Schedule 2001-10-27 Completed [facility] 00:00:00 [facility] DTAP 2001-10-27 Completed [facility] 00:00:00 [facility] HIB 4 Dose Schedule 2001-10-27 Completed [facility] 00:00:00 [facility] DTAP 2001-10-27 Completed [facility] 00:00:00 [facility] HIB 4 Dose Schedule 2001-10-27 Completed [facility] 00:00:00 [facility] DTAP 2001-10-27 Completed [facility] 00:00:00 [facility] HIB 4 Dose Schedule 2001-10-27 Completed [facility] 00:00:00 [facility] DTAP 2001-10-27 Completed [facility] 00:00:00 [facility] HIB 4 Dose Schedule 2001-10-27 Completed [facility] 00:00:00 [facility] DTAP 2001-10-27 Completed [facility] 00:00:00 [facility] HIB 4 Dose Schedule 2001-10-27 Completed [facility] 00:00:00 [facility] DTAP 2001-10-27 Completed [facility] 00:00:00 [facility] HIB 4 Dose Schedule 2001-10-27 Completed [facility] 00:00:00 [facility] DTAP 2001-10-27 Completed [facility] 00:00:00 [facility] HIB 4 Dose Schedule 2001-10-27 Completed [facility] 00:00:00 [facility] DTAP 2001-10-27 Completed [facility] 00:00:00 [facility] DTAP 2001-10-27 Completed [facility] 00:00:00 [facility] HIB 4 Dose Schedule 2001-10-27 Completed [facility] 00:00:00 [facility] HIB 4 Dose Schedule 2001-10-27 Completed [facility] 00:00:00 [facility] DTAP 2001-10-27 Completed [facility] 00:00:00 [facility] HIB 4 Dose Schedule 2001-10-27 Completed [facility] 00:00:00 [facility] DTAP 2001-10-27 Completed [facility] 00:00:00 [facility] HIB 4 Dose Schedule 2001-10-27 Completed [facility] 00:00:00 [facility] DTAP 2001-10-27 Completed [facility] 00:00:00 [facility] HIB 4 Dose Schedule 2001-10-27 Completed [facility] 00:00:00 [facility] DTAP 2001-10-27 Completed [facility] 00:00:00 [facility] HIB 4 Dose Schedule 2001-10-27 Completed [facility] 00:00:00 [facility] DTAP 2001-10-27 Completed [facility] 00:00:00 [facility] HIB 4 Dose Schedule 2001-10-27 Completed [facility] 00:00:00 [facility] DTAP 2001-10-27 Completed [facility] 00:00:00 [facility] HIB 4 Dose Schedule 2001-10-27 Completed [facility] 00:00:00 [facility] DTAP 2001-10-27 Completed [facility] 00:00:00 [facility] HIB 4 Dose Schedule 2001-10-27 Completed [facility] 00:00:00 [facility] DTAP 2001-10-27 Completed [facility] 00:00:00 [facility] HIB 4 Dose Schedule 2001-10-27 Completed [facility] 00:00:00 [facility] DTAP 2001-10-27 Completed [facility] 00:00:00 [facility] HIB 4 Dose Schedule 2001-10-27 Completed [facility] 00:00:00 [facility] DTAP 2001-10-27 Completed [facility] 00:00:00 [facility] HIB 4 Dose Schedule 2001-10-27 Completed [facility] 00:00:00 [facility] DTAP 2001-10-27 Completed [facility] 00:00:00 [facility] HIB 4 Dose Schedule 2001-10-27 Completed [facility] 00:00:00 [facility] DTAP 2001-10-27 Completed [facility] 00:00:00 [facility] HIB 4 Dose Schedule 2001-10-27 Completed [facility] 00:00:00 [facility] DTAP 2001-10-27 Completed [facility] 00:00:00 [facility] HIB 4 Dose Schedule 2001-10-27 Completed [facility] 00:00:00 [facility] DTAP 2001-10-27 Completed [facility] 00:00:00 [facility] HIB 4 Dose Schedule 2001-10-27 Completed [facility] 00:00:00 [facility] DTAP 2001-10-27 Completed [facility] 00:00:00 [facility] HIB 4 Dose Schedule 2001-10-27 Completed [facility] 00:00:00 [facility] DTAP 2001-10-27 Completed [facility] 00:00:00 [facility] HIB 4 Dose Schedule 2001-10-27 Completed [facility] 00:00:00 [facility] DTAP 2001-10-27 Completed [facility] 00:00:00 [facility] DTAP 2001-10-27 Completed [facility] 00:00:00 [facility] HIB 4 Dose Schedule 2001-10-27 Completed [facility] 00:00:00 [facility] HIB 4 Dose Schedule 2001-10-27 Completed [facility] 00:00:00 [facility] DTAP 2001-10-27 Completed [facility] 00:00:00 [facility] HIB 4 Dose Schedule 2001-10-27 Completed [facility] 00:00:00 [facility] DTAP 2001-10-27 Completed [facility] 00:00:00 [facility] HIB 4 Dose Schedule 2001-10-27 Completed [facility] 00:00:00 [facility] DTAP 2001-10-27 Completed [facility] 00:00:00 [facility] HIB 4 Dose Schedule 2001-10-27 Completed [facility] 00:00:00 [facility] DTAP 2001-10-27 Completed [facility] 00:00:00 [facility] HIB 4 Dose Schedule 2001-10-27 Completed [facility] 00:00:00 [facility] DTAP 2001-10-27 Completed [facility] 00:00:00 [facility] HIB 4 Dose Schedule 2001-10-27 Completed [facility] 00:00:00 [facility] DTAP 2001-10-27 Completed [facility] 00:00:00 [facility] HIB 4 Dose Schedule 2001-10-27 Completed [facility] 00:00:00 [facility] DTAP 2001-10-27 Completed [facility] 00:00:00 [facility] HIB 4 Dose Schedule 2001-10-27 Completed [facility] 00:00:00 [facility] DTAP 2001-10-27 Completed [facility] 00:00:00 [facility] HIB 4 Dose Schedule 2001-10-27 Completed [facility] 00:00:00 [facility] DTAP 2001-10-27 Completed [facility] 00:00:00 [facility] DTAP 2001-10-27 Completed [facility] 00:00:00 [facility] HIB 4 Dose Schedule 2001-10-27 Completed [facility] 00:00:00 [facility] HIB 4 Dose Schedule 2001-10-27 Completed [facility] 00:00:00 [facility] DTAP 2001-10-27 Completed [facility] 00:00:00 [facility] HIB 4 Dose Schedule 2001-10-27 Completed [facility] 00:00:00 [facility] DTAP 2001-10-27 Completed [facility] 00:00:00 [facility] HIB 4 Dose Schedule 2001-10-27 Completed [facility] 00:00:00 [facility] DTAP 2001-10-27 Completed [facility] 00:00:00 [facility] HIB 4 Dose Schedule 2001-10-27 Completed [facility] 00:00:00 [facility] DTAP 2001-10-27 Completed [facility] 00:00:00 [facility] HIB 4 Dose Schedule 2001-10-27 Completed [facility] 00:00:00 [facility] DTAP 2001-10-27 Completed [facility] 00:00:00 [facility] HIB 4 Dose Schedule 2001-10-27 Completed [facility] 00:00:00 [facility] DTAP 2001-10-27 Completed [facility] 00:00:00 [facility] HIB 4 Dose Schedule 2001-10-27 Completed [facility] 00:00:00 [facility] DTAP 2001-10-27 Completed [facility] 00:00:00 [facility] HIB 4 Dose Schedule 2001-10-27 Completed [facility] 00:00:00 [facility] DTAP 2001-10-27 Completed [facility] 00:00:00 [facility] DTAP 2001-10-27 Completed [facility] 00:00:00 [facility] HIB 4 Dose Schedule 2001-10-27 Completed [facility] 00:00:00 [facility] HIB 4 Dose Schedule 2001-10-27 Completed [facility] 00:00:00 [facility] DTAP 2001-10-27 Completed [facility] 00:00:00 [facility] HIB 4 Dose Schedule 2001-10-27 Completed [facility] 00:00:00 [facility] DTAP 2001-10-27 Completed [facility] 00:00:00 [facility] HIB 4 Dose Schedule 2001-10-27 Completed [facility] 00:00:00 [facility] DTAP 2001-10-27 Completed [facility] 00:00:00 [facility] HIB 4 Dose Schedule 2001-10-27 Completed [facility] 00:00:00 [facility] DTAP 2001-10-27 Completed [facility] 00:00:00 [facility] HIB 4 Dose Schedule 2001-10-27 Completed [facility] 00:00:00 [facility] DTAP 2001-10-27 Completed [facility] 00:00:00 [facility] HIB 4 Dose Schedule 2001-10-27 Completed [facility] 00:00:00 [facility] DTAP 2001-10-27 Completed [facility] 00:00:00 [facility] HIB 4 Dose Schedule 2001-10-27 Completed [facility] 00:00:00 [facility] DTAP 2001-10-27 Completed [facility] 00:00:00 [facility] HIB 4 Dose Schedule 2001-10-27 Completed [facility] 00:00:00 [facility] DTAP 2001-10-27 Completed [facility] 00:00:00 [facility] HIB 4 Dose Schedule 2001-10-27 Completed [facility] 00:00:00 [facility] DTAP 2001-10-27 Completed [facility] 00:00:00 [facility] DTAP 2001-10-27 Completed [facility] 00:00:00 [facility] HIB 4 Dose Schedule 2001-10-27 Completed [facility] 00:00:00 [facility] HIB 4 Dose Schedule 2001-10-27 Completed [facility] 00:00:00 [facility] DTAP 2001-10-27 Completed [facility] 00:00:00 [facility] HIB 4 Dose Schedule 2001-10-27 Completed [facility] 00:00:00 [facility] DTAP 2001-10-27 Completed [facility] 00:00:00 [facility] HIB 4 Dose Schedule 2001-10-27 Completed [facility] 00:00:00 [facility] DTAP 2001-10-27 Completed [facility] 00:00:00 [facility] HIB 4 Dose Schedule 2001-10-27 Completed [facility] 00:00:00 [facility] DTAP 2001-10-27 Completed [facility] 00:00:00 [facility] HIB 4 Dose Schedule 2001-10-27 Completed [facility] 00:00:00 [facility] DTAP 2001-10-27 Completed [facility] 00:00:00 [facility] DTAP 2001-10-27 Completed [facility] 00:00:00 [facility] HIB 4 Dose Schedule 2001-10-27 Completed [facility] 00:00:00 [facility] DTAP 2001-10-27 Completed [facility] 00:00:00 [facility] HIB 4 Dose Schedule 2001-10-27 Completed [facility] 00:00:00 [facility] DTAP 2001-10-27 Completed [facility] 00:00:00 [facility] HIB 4 Dose Schedule 2001-10-27 Completed [facility] 00:00:00 [facility] DTAP 2001-10-27 Completed [facility] 00:00:00 [facility] DTAP 2001-10-27 Completed [facility] 00:00:00 [facility] HIB 4 Dose Schedule 2001-10-27 Completed [facility] 00:00:00 [facility] HIB 4 Dose Schedule 2001-10-27 Completed [facility] 00:00:00 [facility] DTAP 2001-10-27 Completed [facility] 00:00:00 [facility] HIB 4 Dose Schedule 2001-10-27 Completed [facility] 00:00:00 [facility] DTAP 2001-10-27 Completed [facility] 00:00:00 [facility] HIB 4 Dose Schedule 2001-10-27 Completed [facility] 00:00:00 [facility] DTAP 2001-10-27 Completed [facility] 00:00:00 [facility] HIB 4 Dose Schedule 2001-10-27 Completed [facility] 00:00:00 [facility] DTAP 2001-10-27 Completed [facility] 00:00:00 [facility] HIB 4 Dose Schedule 2001-10-27 Completed [facility] 00:00:00 [facility] DTAP 2001-10-27 Completed [facility] 00:00:00 [facility] HIB 4 Dose Schedule 2001-10-27 Completed [facility] 00:00:00 [facility] HIB 4 Dose Schedule 2001-10-27 Completed [facility] 00:00:00 [facility] DTAP 2001-10-27 Completed [facility] 00:00:00 [facility] HIB 4 Dose Schedule 2001-10-27 Completed [facility] 00:00:00 [facility] DTAP 2001-10-27 Completed [facility] 00:00:00 [facility] HIB 4 Dose Schedule 2001-10-27 Completed [facility] 00:00:00 [facility] DTAP 2001-10-27 Completed [facility] 00:00:00 [facility] DTAP 2001-10-27 Completed [facility] 00:00:00 [facility] HIB 4 Dose Schedule 2001-10-27 Completed [facility] 00:00:00 [facility] HIB 4 Dose Schedule 2001-10-27 Completed [facility] 00:00:00 [facility] DTAP 2001-10-27 Completed [facility] 00:00:00 [facility] HIB 4 Dose Schedule 2001-10-27 Completed [facility] 00:00:00 [facility] DTAP 2001-10-27 Completed [facility] 00:00:00 [facility] HIB 4 Dose Schedule 2001-10-27 Completed [facility] 00:00:00 [facility] DTAP 2001-10-27 Completed [facility] 00:00:00 [facility] HIB 4 Dose Schedule 2001-10-27 Completed [facility] 00:00:00 [facility] DTAP 2001-10-27 Completed [facility] 00:00:00 [facility] HIB 4 Dose Schedule 2001-10-27 Completed [facility] 00:00:00 [facility] DTAP 2001-10-27 Completed [facility] 00:00:00 [facility] HIB 4 Dose Schedule 2001-10-27 Completed [facility] 00:00:00 [facility] DTAP 2001-10-27 Completed [facility] 00:00:00 [facility] HIB 4 Dose Schedule 2001-10-27 Completed [facility] 00:00:00 [facility] DTAP 2001-10-27 Completed [facility] 00:00:00 [facility] HIB 4 Dose Schedule 2001-10-27 Completed [facility] 00:00:00 [facility] DTAP 2001-10-27 Completed [facility] 00:00:00 [facility] HIB 4 Dose Schedule 2001-10-27 Completed [facility] 00:00:00 [facility] DTAP 2001-10-27 Completed [facility] 00:00:00 [facility] HIB 4 Dose Schedule 2001-10-27 Completed [facility] 00:00:00 [facility] DTAP 2001-10-27 Completed [facility] 00:00:00 [facility] HIB 4 Dose Schedule 2001-10-27 Completed [facility] 00:00:00 [facility] DTAP 2001-10-27 Completed [facility] 00:00:00 [facility] HIB 4 Dose Schedule 2001-10-27 Completed [facility] 00:00:00 [facility] DTAP 2001-10-27 Completed [facility] 00:00:00 [facility] HIB 4 Dose Schedule 2001-10-27 Completed [facility] 00:00:00 [facility] DTAP 2001-10-27 Completed [facility] 00:00:00 [facility] HIB 4 Dose Schedule 2001-10-27 Completed [facility] 00:00:00 [facility] DTAP 2001-10-27 Completed [facility] 00:00:00 [facility] HIB 4 Dose Schedule 2001-10-27 Completed [facility] 00:00:00 [facility] DTAP 2001-10-27 Completed [facility] 00:00:00 [facility] HIB 4 Dose Schedule 2001-10-27 Completed [facility] 00:00:00 [facility] DTAP 2001-10-27 Completed [facility] 00:00:00 [facility] HIB 4 Dose Schedule 2001-10-27 Completed [facility] 00:00:00 [facility] DTAP 2001-10-27 Completed [facility] 00:00:00 [facility] HIB 4 Dose Schedule 2001-10-27 Completed [facility] 00:00:00 [facility] DTAP 2001-10-27 Completed [facility] 00:00:00 [facility] DTAP 2001-10-27 Completed [facility] 00:00:00 [facility] HIB 4 Dose Schedule 2001-10-27 Completed [facility] 00:00:00 [facility] MMR 2001-07-30 Completed [facility] 00:00:00 [facility] Pneumococcal 7 2001-07-30 Completed [facility] Conjugate, PCV7 00:00:00 [facility] 2001-07-30 Completed [facility] 00:00:00 [facility] 2001-07-30 Completed [facility] 00:00:00 [facility] Pneumococcal 7 2001-07-30 Completed [facility] Conjugate, PCV7 00:00:00 [facility] Pneumococcal 7 2001-07-30 Completed [facility] Conjugate, PCV7 00:00:00 [facility] 2001-07-30 Completed [facility] 00:00:00 [facility] Pneumococcal 7 2001-07-30 Completed [facility] Conjugate, PCV7 00:00:00 [facility] 2001-07-30 Completed [facility] 00:00:00 [facility] Pneumococcal 7 2001-07-30 Completed [facility] Conjugate, PCV7 00:00:00 [facility] 2001-07-30 Completed [facility] 00:00:00 [facility] Pneumococcal 7 2001-07-30 Completed [facility] Conjugate, PCV7 00:00:00 [facility] 2001-07-30 Completed [facility] 00:00:00 [facility] Pneumococcal 7 2001-07-30 Completed [facility] Conjugate, PCV7 00:00:00 [facility] 2001-07-30 Completed [facility] 00:00:00 [facility] Pneumococcal 7 2001-07-30 Completed [facility] Conjugate, PCV7 00:00:00 [facility] 2001-07-30 Completed [facility] 00:00:00 [facility] Pneumococcal 7 2001-07-30 Completed [facility] Conjugate, PCV7 00:00:00 [facility] 2001-07-30 Completed [facility] 00:00:00 [facility] Pneumococcal 7 2001-07-30 Completed [facility] Conjugate, PCV7 00:00:00 [facility] 2001-07-30 Completed [facility] 00:00:00 [facility] Pneumococcal 7 2001-07-30 Completed [facility] Conjugate, PCV7 00:00:00 [facility] 2001-07-30 Completed [facility] 00:00:00 [facility] Pneumococcal 7 2001-07-30 Completed [facility] Conjugate, PCV7 00:00:00 [facility] 2001-07-30 Completed [facility] 00:00:00 [facility] Pneumococcal 7 2001-07-30 Completed [facility] Conjugate, PCV7 00:00:00 [facility] 2001-07-30 Completed [facility] 00:00:00 [facility] Pneumococcal 7 2001-07-30 Completed [facility] Conjugate, PCV7 00:00:00 [facility] 2001-07-30 Completed [facility] 00:00:00 [facility] 2001-07-30 Completed [facility] 00:00:00 [facility] Pneumococcal 7 2001-07-30 Completed [facility] Conjugate, PCV7 00:00:00 [facility] Pneumococcal 7 2001-07-30 Completed [facility] Conjugate, PCV7 00:00:00 [facility] 2001-07-30 Completed [facility] 00:00:00 [facility] Pneumococcal 7 2001-07-30 Completed [facility] Conjugate, PCV7 00:00:00 [facility] 2001-07-30 Completed [facility] 00:00:00 [facility] Pneumococcal 7 2001-07-30 Completed [facility] Conjugate, PCV7 00:00:00 [facility] 2001-07-30 Completed [facility] 00:00:00 [facility] Pneumococcal 7 2001-07-30 Completed [facility] Conjugate, PCV7 00:00:00 [facility] 2001-07-30 Completed [facility] 00:00:00 [facility] Pneumococcal 7 2001-07-30 Completed [facility] Conjugate, PCV7 00:00:00 [facility] 2001-07-30 Completed [facility] 00:00:00 [facility] Pneumococcal 7 2001-07-30 Completed [facility] Conjugate, PCV7 00:00:00 [facility] 2001-07-30 Completed [facility] 00:00:00 [facility] Pneumococcal 7 2001-07-30 Completed [facility] Conjugate, PCV7 00:00:00 [facility] 2001-07-30 Completed [facility] 00:00:00 [facility] Pneumococcal 7 2001-07-30 Completed [facility] Conjugate, PCV7 00:00:00 [facility] 2001-07-30 Completed [facility] 00:00:00 [facility] Pneumococcal 7 2001-07-30 Completed [facility] Conjugate, PCV7 00:00:00 [facility] 2001-07-30 Completed [facility] 00:00:00 [facility] Pneumococcal 7 2001-07-30 Completed [facility] Conjugate, PCV7 00:00:00 [facility] 2001-07-30 Completed [facility] 00:00:00 [facility] 2001-07-30 Completed [facility] 00:00:00 [facility] Pneumococcal 7 2001-07-30 Completed [facility] Conjugate, PCV7 00:00:00 [facility] Pneumococcal 7 2001-07-30 Completed [facility] Conjugate, PCV7 00:00:00 [facility] 2001-07-30 Completed [facility] 00:00:00 [facility] Pneumococcal 7 2001-07-30 Completed [facility] Conjugate, PCV7 00:00:00 [facility] 2001-07-30 Completed [facility] 00:00:00 [facility] Pneumococcal 7 2001-07-30 Completed [facility] Conjugate, PCV7 00:00:00 [facility] 2001-07-30 Completed [facility] 00:00:00 [facility] Pneumococcal 7 2001-07-30 Completed [facility] Conjugate, PCV7 00:00:00 [facility] 2001-07-30 Completed [facility] 00:00:00 [facility] Pneumococcal 7 2001-07-30 Completed [facility] Conjugate, PCV7 00:00:00 [facility] 2001-07-30 Completed [facility] 00:00:00 [facility] Pneumococcal 7 2001-07-30 Completed [facility] Conjugate, PCV7 00:00:00 [facility] 2001-07-30 Completed [facility] 00:00:00 [facility] Pneumococcal 7 2001-07-30 Completed [facility] Conjugate, PCV7 00:00:00 [facility] 2001-07-30 Completed [facility] 00:00:00 [facility] Pneumococcal 7 2001-07-30 Completed [facility] Conjugate, PCV7 00:00:00 [facility] 2001-07-30 Completed [facility] 00:00:00 [facility] Pneumococcal 7 2001-07-30 Completed [facility] Conjugate, PCV7 00:00:00 [facility] 2001-07-30 Completed [facility] 00:00:00 [facility] 2001-07-30 Completed [facility] 00:00:00 [facility] Pneumococcal 7 2001-07-30 Completed [facility] Conjugate, PCV7 00:00:00 [facility] Pneumococcal 7 2001-07-30 Completed [facility] Conjugate, PCV7 00:00:00 [facility] 2001-07-30 Completed [facility] 00:00:00 [facility] Pneumococcal 7 2001-07-30 Completed [facility] Conjugate, PCV7 00:00:00 [facility] 2001-07-30 Completed [facility] 00:00:00 [facility] Pneumococcal 7 2001-07-30 Completed [facility] Conjugate, PCV7 00:00:00 [facility] 2001-07-30 Completed [facility] 00:00:00 [facility] Pneumococcal 7 2001-07-30 Completed [facility] Conjugate, PCV7 00:00:00 [facility] 2001-07-30 Completed [facility] 00:00:00 [facility] Pneumococcal 7 2001-07-30 Completed [facility] Conjugate, PCV7 00:00:00 [facility] SYSTEM 2001-07-30 Completed [facility] of 00:00:00 [facility] Pneumococcal 7 2001-07-30 Completed University of Conjugate, PCV7 00:00:00 [place] [facility] (Pre[facility] 2001-07-30 Completed [facility] of 00:00:00 [facility] Pneumococcal 7 2001-07-30 Completed [facility] of Conjugate, PCV7 00:00:00 [place] [facility] (Pre[facility]ar7[facility] 2001-07-30 Completed [facility] of 00:00:00 [facility] Pneumococcal 7 2001-07-30 Completed [facility] of Conjugate, PCV7 00:00:00 [place] [facility] (Pre[facility]ar7[facility] 2001-07-30 Completed University of 00:00:00 [facility] 2001-07-30 Completed [facility] of 00:00:00 [facility] Pneumococcal 7 2001-07-30 Completed [facility] of Conjugate, PCV7 00:00:00 [place] [facility] (Prevnar7) [facility] Pneumococcal 7 2001-07-30 Completed [facility] of Conjugate, PCV7 00:00:00 [place] [facility] (Prevnar7) [facility] 2001-07-30 Completed [facility] of 00:00:00 [facility] Pneumococcal 7 2001-07-30 Completed [facility] of Conjugate, PCV7 00:00:00 [place] [facility] (Prevnar7) [facility] 2001-07-30 Completed [facility] of 00:00:00 [facility] Pneumococcal 7 2001-07-30 Completed [facility] of Conjugate, PCV7 00:00:00 [place] [facility] (Prevnar7) [facility] 2001-07-30 Completed [facility] of 00:00:00 [facility] Pneumococcal 7 2001-07-30 Completed [facility] of Conjugate, PCV7 00:00:00 [place] [facility] (Prevnar7) [facility] 2001-07-30 Completed [facility] of 00:00:00 [facility] Pneumococcal 7 2001-07-30 Completed [facility] of Conjugate, PCV7 00:00:00 [place] [facility] (Prevnar7) [facility] 2001-07-30 Completed [facility] of 00:00:00 [facility] Pneumococcal 7 2001-07-30 Completed [facility] of Conjugate, PCV7 00:00:00 [place] [facility] (Prevnar7) [facility] 2001-07-30 Completed [facility] of 00:00:00 [facility] Pneumococcal 7 2001-07-30 Completed [facility] of Conjugate, PCV7 00:00:00 [place] [facility] (Prevnar7) [facility] 2001-07-30 Completed [facility] of 00:00:00 [facility] 2001-07-30 Completed [facility] of 00:00:00 [facility] Pneumococcal 7 2001-07-30 Completed [facility] of Conjugate, PCV7 00:00:00 [place] [facility] (Prevnar7) [facility] Pneumococcal 7 2001-07-30 Completed [facility] of Conjugate, PCV7 00:00:00 [place] [facility] (Prevnar7) [facility] 2001-07-30 Completed [facility] 00:00:00 [facility] Pneumococcal 7 2001-07-30 Completed [facility] of Conjugate, PCV7 00:00:00 [place] [facility] (Prevnar7) [facility] 2001-07-30 Completed [facility] of 00:00:00 [facility] Pneumococcal 7 2001-07-30 Completed [facility] of Conjugate, PCV7 00:00:00 [place] [facility] (Prevnar7) [facility] 2001-07-30 Completed [facility] 00:00:00 [facility] Pneumococcal 7 2001-07-30 Completed [facility] of Conjugate, PCV7 00:00:00 [place] [facility] (Prevnar7) [facility] 2001-07-30 Completed [facility] of 00:00:00 [facility] Pneumococcal 7 2001-07-30 Completed [facility] of Conjugate, PCV7 00:00:00 [place] [facility] (Prevnar7) [facility] 2001-07-30 Completed [facility] of 00:00:00 [facility] Pneumococcal 7 2001-07-30 Completed [facility] of Conjugate, PCV7 00:00:00 [place] [facility] (Prevnar7) [facility] 2001-07-30 Completed [facility] of 00:00:00 [facility] Pneumococcal 7 2001-07-30 Completed [facility] of Conjugate, PCV7 00:00:00 [place] [facility] (Prevnar7) [facility] 2001-07-30 Completed [facility] of 00:00:00 [facility] Pneumococcal 7 2001-07-30 Completed [facility] of Conjugate, PCV7 00:00:00 [place] [facility] (Prevnar7) [facility] 2001-07-30 Completed [facility] of 00:00:00 [facility] Pneumococcal 7 2001-07-30 Completed [facility] of Conjugate, PCV7 00:00:00 [place] [facility] (Prevnar7) [facility] 2001-07-30 Completed [facility] of 00:00:00 [facility] 2001-07-30 Completed [facility] of 00:00:00 [facility] Pneumococcal 7 2001-07-30 Completed [facility] of Conjugate, PCV7 00:00:00 [place] [facility] (Prevnar7) [facility] Pneumococcal 7 2001-07-30 Completed [facility] of Conjugate, PCV7 00:00:00 [place] [facility] (Pre[facility]ar7) [facility] 2001-07-30 Completed [facility] of 00:00:00 [facility] Pneumococcal 7 2001-07-30 Completed [facility] of Conjugate, PCV7 00:00:00 [place] [facility] (Prevnar7) [facility] 2001-07-30 Completed [facility] of 00:00:00 [facility] Pneumococcal 7 2001-07-30 Completed [facility] of Conjugate, PCV7 00:00:00 [place] [facility] (Prevnar7) [facility] 2001-07-30 Completed [facility] of 00:00:00 [facility] Pneumococcal 7 2001-07-30 Completed [facility] of Conjugate, PCV7 00:00:00 [place] [facility] (Prevnar7) [facility] 2001-07-30 Completed [facility] of 00:00:00 [facility] Pneumococcal 7 2001-07-30 Completed [facility] of Conjugate, PCV7 00:00:00 [place] [facility] (Prevnar7) [facility] 2001-07-30 Completed [facility] of 00:00:00 [facility] Pneumococcal 7 2001-07-30 Completed [facility] of Conjugate, PCV7 00:00:00 [place] [facility] (Prevnar7) [facility] 2001-07-30 Completed [facility] of 00:00:00 [facility] Pneumococcal 7 2001-07-30 Completed [facility] of Conjugate, PCV7 00:00:00 [place] [facility] (Prevnar7) [facility] 2001-07-30 Completed [facility] of 00:00:00 [facility] Pneumococcal 7 2001-07-30 Completed [facility] of Conjugate, PCV7 00:00:00 [place] [facility] (Prevnar7) [facility] 2001-07-30 Completed [facility] of 00:00:00 [facility] Pneumococcal 7 2001-07-30 Completed [facility] of Conjugate, PCV7 00:00:00 [place] [facility] (Prevnar7) [facility] 2001-07-30 Completed [facility] of 00:00:00 [facility] 2001-07-30 Completed [facility] of 00:00:00 [facility] Pneumococcal 7 2001-07-30 Completed [facility] of Conjugate, PCV7 00:00:00 [place] [facility] (Prevnar7) [facility] Pneumococcal 7 2001-07-30 Completed [facility] of Conjugate, PCV7 00:00:00 [place] [facility] (Prevnar7) [facility] 2001-07-30 Completed [facility] of 00:00:00 [facility] Pneumococcal 7 2001-07-30 Completed [facility] of Conjugate, PCV7 00:00:00 [place] [facility] (Prevnar7) [facility] 2001-07-30 Completed [facility] of 00:00:00 [facility] Pneumococcal 7 2001-07-30 Completed [facility] of Conjugate, PCV7 00:00:00 [place] [facility] (Prevnar7) [facility] 2001-07-30 Completed [facility] of 00:00:00 [facility] Pneumococcal 7 2001-07-30 Completed [facility] of Conjugate, PCV7 00:00:00 [place] [facility] (Prevnar7) [facility] 2001-07-30 Completed [facility] of 00:00:00 [facility] Pneumococcal 7 2001-07-30 Completed [facility] of Conjugate, PCV7 00:00:00 [place] [facility] (Prevnar7) [facility] 2001-07-30 Completed [facility] of 00:00:00 [facility] Pneumococcal 7 2001-07-30 Completed [facility] of Conjugate, PCV7 00:00:00 [place] [facility] (Prevnar7) [facility] 2001-07-30 Completed [facility] 00:00:00 [facility] Pneumococcal 7 2001-07-30 Completed [facility] of Conjugate, PCV7 00:00:00 [place] [facility] (Prevnar7) [facility] 2001-07-30 Completed [facility] 00:00:00 [facility] Pneumococcal 7 2001-07-30 Completed [facility] of Conjugate, PCV7 00:00:00 [place] [facility] (Prevnar7) [facility] 2001-07-30 Completed [facility] of 00:00:00 [facility] 2001-07-30 Completed [facility] of 00:00:00 [facility] Pneumococcal 7 2001-07-30 Completed [facility] of Conjugate, PCV7 00:00:00 [place] [facility] (Prevnar7) [facility] Pneumococcal 7 2001-07-30 Completed [facility] of Conjugate, PCV7 00:00:00 [place] [facility] (Prevnar7) [facility] 2001-07-30 Completed [facility] of 00:00:00 [facility] Pneumococcal 7 2001-07-30 Completed [facility] of Conjugate, PCV7 00:00:00 [place] [facility] (Prevnar7) [facility] 2001-07-30 Completed [facility] 00:00:00 [facility] Pneumococcal 7 2001-07-30 Completed [facility] of Conjugate, PCV7 00:00:00 [place] [facility] (Prevnar7) [facility] 2001-07-30 Completed [facility] of 00:00:00 [facility] Pneumococcal 7 2001-07-30 Completed [facility] of Conjugate, PCV7 00:00:00 [place] [facility] (Prevnar7) [facility] 2001-07-30 Completed [facility] of 00:00:00 [facility] Pneumococcal 7 2001-07-30 Completed [facility] of Conjugate, PCV7 00:00:00 [place] [facility] (Prevnar7) [facility] 2001-07-30 Completed [facility] 00:00:00 [facility] Pneumococcal 7 2001-07-30 Completed [facility] of Conjugate, PCV7 00:00:00 [place] [facility] (Prevnar7) [facility] 2001-07-30 Completed [facility] 00:00:00 [facility] Pneumococcal 7 2001-07-30 Completed [facility] of Conjugate, PCV7 00:00:00 [place] [facility] (Prevnar7) [facility] 2001-07-30 Completed [facility] 00:00:00 [facility] Pneumococcal 7 2001-07-30 Completed [facility] of Conjugate, PCV7 00:00:00 [place] [facility] (Prevnar7) [facility] 2001-07-30 Completed [facility] 00:00:00 [facility] Pneumococcal 7 2001-07-30 Completed [facility] of Conjugate, PCV7 00:00:00 [place] [facility] (Prevnar7) [facility] 2001-07-30 Completed [facility] of 00:00:00 [facility] 2001-07-30 Completed [facility] of 00:00:00 [facility] Pneumococcal 7 2001-07-30 Completed [facility] of Conjugate, PCV7 00:00:00 [place] [facility] (Prevnar7) [facility] Pneumococcal 7 2001-07-30 Completed [facility] of Conjugate, PCV7 00:00:00 [place] [facility] (Prevnar7) [facility] 2001-07-30 Completed [facility] 00:00:00 [facility] Pneumococcal 7 2001-07-30 Completed [facility] of Conjugate, PCV7 00:00:00 [place] [facility] (Prevnar7) [facility] 2001-07-30 Completed [facility] 00:00:00 [facility] Pneumococcal 7 2001-07-30 Completed [facility] of Conjugate, PCV7 00:00:00 [place] [facility] (Prevnar7) [facility] 2001-07-30 Completed [facility] 00:00:00 [facility] Pneumococcal 7 2001-07-30 Completed [facility] of Conjugate, PCV7 00:00:00 [place] [facility] (Prevnar7) [facility] 2001-07-30 Completed [facility] 00:00:00 [facility] Pneumococcal 7 2001-07-30 Completed [facility] of Conjugate, PCV7 00:00:00 [place] [facility] (Prevnar7) [facility] 2001-07-30 Completed [facility] 00:00:00 [facility] Pneumococcal 7 2001-07-30 Completed [facility] of Conjugate, PCV7 00:00:00 [place] [facility] (Prevnar7) [facility] 2001-07-30 Completed [facility] 00:00:00 [facility] Pneumococcal 7 2001-07-30 Completed [facility] of Conjugate, PCV7 00:00:00 [place] [facility] (Prevnar7) [facility] 2001-07-30 Completed [facility] 00:00:00 [facility] Pneumococcal 7 2001-07-30 Completed [facility] of Conjugate, PCV7 00:00:00 [place] [facility] (Prevnar7) [facility] 2001-07-30 Completed [facility] 00:00:00 [facility] 2001-07-30 Completed [facility] 00:00:00 [facility] Pneumococcal 7 2001-07-30 Completed [facility] of Conjugate, PCV7 00:00:00 [place] [facility] (Prevnar7) [facility] Pneumococcal 7 2001-07-30 Completed [facility] Conjugate, PCV7 00:00:00 [place] [facility] (Prevnar7) [facility] 2001-07-30 Completed [facility] 00:00:00 [facility] Pneumococcal 7 2001-07-30 Completed [facility] of Conjugate, PCV7 00:00:00 [place] [facility] (Prevnar7) [facility] 2001-07-30 Completed [facility] 00:00:00 [facility] Pneumococcal 7 2001-07-30 Completed [facility] of Conjugate, PCV7 00:00:00 [place] [facility] (Prevnar7) [facility] 2001-07-30 Completed [facility] 00:00:00 [facility] Pneumococcal 7 2001-07-30 Completed [facility] Conjugate, PCV7 00:00:00 [place] [facility] (Prevnar7) [facility] 2001-07-30 Completed [facility] 00:00:00 [facility] Pneumococcal 7 2001-07-30 Completed [facility] Conjugate, PCV7 00:00:00 [place] [facility] (Prevnar7) [facility] 2001-07-30 Completed [facility] 00:00:00 [facility] Pneumococcal 7 2001-07-30 Completed [facility] Conjugate, PCV7 00:00:00 [place] [facility] (Prevnar7) [facility] 2001-07-30 Completed [facility] 00:00:00 [facility] Pneumococcal 7 2001-07-30 Completed [facility] of Conjugate, PCV7 00:00:00 [place] [facility] (Prevnar7) [facility] 2001-07-30 Completed [facility] 00:00:00 [facility] Pneumococcal 7 2001-07-30 Completed [facility] Conjugate, PCV7 00:00:00 [place] [facility] (Prevnar7) [facility] 2001-07-30 Completed [facility] 00:00:00 [facility] 2001-07-30 Completed [facility] 00:00:00 [facility] Pneumococcal 7 2001-07-30 Completed [facility] Conjugate, PCV7 00:00:00 [place] [facility] (Prevnar7) [facility] Pneumococcal 7 2001-07-30 Completed [facility] Conjugate, PCV7 00:00:00 [place] [facility] (Prevnar7) [facility] 2001-07-30 Completed [facility] 00:00:00 [facility] Pneumococcal 7 2001-07-30 Completed [facility] Conjugate, PCV7 00:00:00 [place] [facility] (Prevnar7) [facility] 2001-07-30 Completed [facility] 00:00:00 [facility] Pneumococcal 7 2001-07-30 Completed [facility] of Conjugate, PCV7 00:00:00 [place] [facility] (Prevnar7) [facility] 2001-07-30 Completed [facility] 00:00:00 [facility] Pneumococcal 7 2001-07-30 Completed [facility] of Conjugate, PCV7 00:00:00 [place] [facility] (Prevnar7) [facility] 2001-07-30 Completed [facility] 00:00:00 [facility] Pneumococcal 7 2001-07-30 Completed [facility] Conjugate, PCV7 00:00:00 [place] [facility] (Prevnar7) [facility] 2001-07-30 Completed [facility] 00:00:00 [facility] Pneumococcal 7 2001-07-30 Completed [facility] of Conjugate, PCV7 00:00:00 [place] [facility] (Prevnar7) [facility] 2001-07-30 Completed [facility] 00:00:00 [facility] Pneumococcal 7 2001-07-30 Completed [facility] of Conjugate, PCV7 00:00:00 [place] [facility] (Prevnar7) [facility] 2001-07-30 Completed [facility] 00:00:00 [facility] Pneumococcal 7 2001-07-30 Completed [facility] of Conjugate, PCV7 00:00:00 [place] [facility] (Prevnar7) [facility] 2001-07-30 Completed [facility] of 00:00:00 [facility] Pneumococcal 7 2001-07-30 Completed [facility] of Conjugate, PCV7 00:00:00 [place] [facility] (Prevnar7) [facility] 2001-07-30 Completed [facility] of 00:00:00 [facility] 2001-07-30 Completed [facility] of 00:00:00 [facility] Pneumococcal 7 2001-07-30 Completed [facility] of Conjugate, PCV7 00:00:00 [place] [facility] (Prevnar7) [facility] Pneumococcal 7 2001-07-30 Completed [facility] Conjugate, PCV7 00:00:00 [place] [facility] (Prevnar7) [facility] 2001-07-30 Completed [facility] 00:00:00 [facility] Pneumococcal 7 2001-07-30 Completed [facility] Conjugate, PCV7 00:00:00 [place] [facility] (Prevnar7) [facility] 2001-07-30 Completed [facility] of 00:00:00 [facility] Pneumococcal 7 2001-07-30 Completed [facility] Conjugate, PCV7 00:00:00 [place] [facility] (Prevnar7) [facility] 2001-07-30 Completed [facility] 00:00:00 [facility] Pneumococcal 7 2001-07-30 Completed [facility] Conjugate, PCV7 00:00:00 [place] [facility] (Prevnar7) [facility] 2001-07-30 Completed [facility] 00:00:00 [facility] Pneumococcal 7 2001-07-30 Completed [facility] Conjugate, PCV7 00:00:00 [place] [facility] (Prevnar7) [facility] 2001-07-30 Completed [facility] 00:00:00 [facility] Pneumococcal 7 2001-07-30 Completed [facility] Conjugate, PCV7 00:00:00 [place] [facility] (Prevnar7) [facility] MMR 2001-07-30 Completed [facility] 00:00:00 [facility] Pneumococcal 7 2001-07-30 Completed [facility] Conjugate, PCV7 00:00:00 [place] [facility] (Prevnar7) [facility] MMR 2001-07-30 Completed [facility] 00:00:00 [facility] Pneumococcal 7 2001-07-30 Completed [facility] of Conjugate, PCV7 00:00:00 [place] [facility] (Prevnar7) [facility] Polio (IPV/OPV) 2001-05-17 Completed [facility] 00:00:00 [facility] Varicella 2001-05-17 Completed University of (varivax)(chicken 00:00:00 [place] [facility] pox) [facility] Pneumococcal 7 2001-05-17 Completed [facility] of Conjugate, PCV7 00:00:00 [place] [facility] (Prevnar7) [facility] Polio (IPV/OPV) 2001-05-17 Completed [facility] 00:00:00 [facility] Varicella 2001-05-17 Completed [facility] of (varivax)(chicken 00:00:00 [place] [facility] pox) [facility] Pneumococcal 7 2001-05-17 Completed [facility] of Conjugate, PCV7 00:00:00 [place] [facility] (Prevnar7) [facility] Polio (IPV/OPV) 2001-05-17 Completed [facility] 00:00:00 [facility] Varicella 2001-05-17 Completed [facility] of (varivax)(chicken 00:00:00 [place] [facility] pox) [facility] Pneumococcal 7 2001-05-17 Completed [facility] Conjugate, PCV7 00:00:00 [place] [facility] (Prevnar7) [facility] Pneumococcal 7 2001-05-17 Completed [facility] Conjugate, PCV7 00:00:00 [place] [facility] (Prevnar7) [facility] Polio (IPV/OPV) 2001-05-17 Completed [facility] 00:00:00 [facility] Varicella 2001-05-17 Completed [facility] of (varivax)(chicken 00:00:00 [place] [facility] pox) [facility] Polio (IPV/OPV) 2001-05-17 Completed [facility] 00:00:00 [facility] Varicella 2001-05-17 Completed [facility] (varivax)(chicken 00:00:00 [place] [facility] pox) [facility] Pneumococcal 7 2001-05-17 Completed [facility] Conjugate, PCV7 00:00:00 [place] [facility] (Prevnar7) [facility] Polio (IPV/OPV) 2001-05-17 Completed [facility] 00:00:00 [facility] Varicella 2001-05-17 Completed [facility] of (varivax)(chicken 00:00:00 [place] [facility] pox) [facility] Pneumococcal 7 2001-05-17 Completed [facility] Conjugate, PCV7 00:00:00 [place] [facility] (Prevnar7) [facility] Polio (IPV/OPV) 2001-05-17 Completed [facility] 00:00:00 [facility] Varicella 2001-05-17 Completed [facility] (varivax)(chicken 00:00:00 [place] [facility] pox) [facility] Pneumococcal 7 2001-05-17 Completed [facility] Conjugate, PCV7 00:00:00 [place] [facility] (Prevnar7) [facility] Polio (IPV/OPV) 2001-05-17 Completed [facility] 00:00:00 [facility] Varicella 2001-05-17 Completed [facility] (varivax)(chicken 00:00:00 [place] [facility] pox) [facility] Pneumococcal 7 2001-05-17 Completed [facility] Conjugate, PCV7 00:00:00 [place] [facility] (Prevnar7) [facility] Polio (IPV/OPV) 2001-05-17 Completed [facility] 00:00:00 [facility] Varicella 2001-05-17 Completed [facility] of (varivax)(chicken 00:00:00 [place] [facility] pox) [facility] Pneumococcal 7 2001-05-17 Completed [facility] Conjugate, PCV7 00:00:00 [place] [facility] (Prevnar7) [facility] Polio (IPV/OPV) 2001-05-17 Completed [facility] 00:00:00 [facility] Varicella 2001-05-17 Completed [facility] (varivax)(chicken 00:00:00 [place] [facility] pox) [facility] Pneumococcal 7 2001-05-17 Completed [facility] Conjugate, PCV7 00:00:00 [place] [facility] (Prevnar7) [facility] Polio (IPV/OPV) 2001-05-17 Completed [facility] 00:00:00 [facility] Varicella 2001-05-17 Completed [facility] (varivax)(chicken 00:00:00 [place] [facility] pox) [facility] Pneumococcal 7 2001-05-17 Completed [facility] Conjugate, PCV7 00:00:00 [place] [facility] (Prevnar7) [facility] Polio (IPV/OPV) 2001-05-17 Completed [facility] 00:00:00 [facility] Varicella 2001-05-17 Completed [facility] of (varivax)(chicken 00:00:00 [place] [facility] pox) [facility] Pneumococcal 7 2001-05-17 Completed [facility] Conjugate, PCV7 00:00:00 [place] [facility] (Prevnar7) [facility] Polio (IPV/OPV) 2001-05-17 Completed [facility] 00:00:00 [facility] Varicella 2001-05-17 Completed [facility] (varivax)(chicken 00:00:00 [place] [facility] pox) [facility] Pneumococcal 7 2001-05-17 Completed [facility] Conjugate, PCV7 00:00:00 [place] [facility] (Prevnar7) [facility] Polio (IPV/OPV) 2001-05-17 Completed [facility] 00:00:00 [facility] Varicella 2001-05-17 Completed [facility] of (varivax)(chicken 00:00:00 [place] [facility] pox) [facility] Pneumococcal 7 2001-05-17 Completed [facility] of Conjugate, PCV7 00:00:00 [place] [facility] (Prevnar7) [facility] Polio (IPV/OPV) 2001-05-17 Completed [facility] 00:00:00 [facility] Varicella 2001-05-17 Completed [facility] (varivax)(chicken 00:00:00 [place] [facility] pox) [facility] Pneumococcal 7 2001-05-17 Completed [facility] Conjugate, PCV7 00:00:00 [place] [facility] (Prevnar7) [facility] Polio (IPV/OPV) 2001-05-17 Completed [facility] 00:00:00 [facility] Varicella 2001-05-17 Completed [facility] (varivax)(chicken 00:00:00 [place] [facility] pox) [facility] Pneumococcal 7 2001-05-17 Completed [facility] Conjugate, PCV7 00:00:00 [place] [facility] (Prevnar7) [facility] Pneumococcal 7 2001-05-17 Completed [facility] Conjugate, PCV7 00:00:00 [place] [facility] (Prevnar7) [facility] Polio (IPV/OPV) 2001-05-17 Completed [facility] 00:00:00 [facility] Varicella 2001-05-17 Completed [facility] of (varivax)(chicken 00:00:00 [place] [facility] pox) [facility] Polio (IPV/OPV) 2001-05-17 Completed [facility] 00:00:00 [facility] Pneumococcal 7 2001-05-17 Completed [facility] of Conjugate, PCV7 00:00:00 [place] [facility] (Prevnar7) [facility] Polio (IPV/OPV) 2001-05-17 Completed [facility] 00:00:00 [facility] Varicella 2001-05-17 Completed [facility] of (varivax)(chicken 00:00:00 [place] [facility] pox) [facility] Varicella 2001-05-17 Completed [facility] (varivax)(chicken 00:00:00 [place] [facility] pox) [facility] Pneumococcal 7 2001-05-17 Completed [facility] Conjugate, PCV7 00:00:00 [place] [facility] (Prevnar7) [facility] Polio (IPV/OPV) 2001-05-17 Completed [facility] 00:00:00 [facility] Varicella 2001-05-17 Completed [facility] (varivax)(chicken 00:00:00 [place] [facility] pox) [facility] Pneumococcal 7 2001-05-17 Completed [facility] Conjugate, PCV7 00:00:00 [place] [facility] (Prevnar7) [facility] Polio (IPV/OPV) 2001-05-17 Completed [facility] 00:00:00 [facility] Varicella 2001-05-17 Completed [facility] (varivax)(chicken 00:00:00 [place] [facility] pox) [facility] Pneumococcal 7 2001-05-17 Completed [facility] Conjugate, PCV7 00:00:00 [place] [facility] (Prevnar7) [facility] Polio (IPV/OPV) 2001-05-17 Completed [facility] 00:00:00 [facility] Varicella 2001-05-17 Completed [facility] (varivax)(chicken 00:00:00 [place] [facility] pox) [facility] Pneumococcal 7 2001-05-17 Completed [facility] Conjugate, PCV7 00:00:00 [place] [facility] (Prevnar7) [facility] Polio (IPV/OPV) 2001-05-17 Completed [facility] 00:00:00 [facility] Varicella 2001-05-17 Completed [facility] (varivax)(chicken 00:00:00 [place] [facility] pox) [facility] Pneumococcal 7 2001-05-17 Completed [facility] Conjugate, PCV7 00:00:00 [place] [facility] (Prevnar7) [facility] Polio (IPV/OPV) 2001-05-17 Completed [facility] 00:00:00 [facility] Varicella 2001-05-17 Completed [facility] (varivax)(chicken 00:00:00 [place] [facility] pox) [facility] Pneumococcal 7 2001-05-17 Completed [facility] Conjugate, PCV7 00:00:00 [place] [facility] (Prevnar7) [facility] Polio (IPV/OPV) 2001-05-17 Completed [facility] 00:00:00 [facility] Varicella 2001-05-17 Completed [facility] (varivax)(chicken 00:00:00 [place] [facility] pox) [facility] Pneumococcal 7 2001-05-17 Completed [facility] Conjugate, PCV7 00:00:00 [place] [facility] (Prevnar7) [facility] Polio (IPV/OPV) 2001-05-17 Completed [facility] 00:00:00 [facility] Varicella 2001-05-17 Completed [facility] (varivax)(chicken 00:00:00 [place] [facility] pox) [facility] Pneumococcal 7 2001-05-17 Completed [facility] Conjugate, PCV7 00:00:00 [place] [facility] (Prevnar7) [facility] Polio (IPV/OPV) 2001-05-17 Completed [facility] 00:00:00 [facility] Varicella 2001-05-17 Completed [facility] (varivax)(chicken 00:00:00 [place] [facility] pox) Branch Pneumococcal 7 2001-05-17 Completed [facility] Conjugate, PCV7 00:00:00 [place] [facility] (Prevnar7) Branch Pneumococcal 7 2001-05-17 Completed [facility] Conjugate, PCV7 00:00:00 [place] [facility] (Prevnar7) [facility] Polio (IPV/OPV) 2001-05-17 Completed [facility] 00:00:00 [facility] Varicella 2001-05-17 Completed [facility] (varivax)(chicken 00:00:00 [place] [facility] pox) [facility] Polio (IPV/OPV) 2001-05-17 Completed [facility] 00:00:00 [facility] Pneumococcal 7 2001-05-17 Completed [facility] Conjugate, PCV7 00:00:00 [place] [facility] (Prevnar7) [facility] Polio (IPV/OPV) 2001-05-17 Completed [facility] 00:00:00 [facility] Varicella 2001-05-17 Completed [facility] (varivax)(chicken 00:00:00 [place] [facility] pox[facility] Varicella 2001-05-17 Completed [facility] (varivax)(chicken 00:00:00 [place] [facility] pox) [facility] Pneumococcal 7 2001-05-17 Completed [facility] Conjugate, PCV7 00:00:00 [place] [facility] (Prevnar7) [facility] Polio (IPV/OPV) 2001-05-17 Completed [facility] 00:00:00 [facility] Varicella 2001-05-17 Completed [facility] (varivax)(chicken 00:00:00 [place] [facility] pox) Branch Pneumococcal 7 2001-05-17 Completed [facility] Conjugate, PCV7 00:00:00 [place] [facility] (Prevnar7) Branch Polio (IPV/OPV) 2001-05-17 Completed [facility] 00:00:00 [facility] Varicella 2001-05-17 Completed [facility] (varivax)(chicken 00:00:00 [place] [facility] pox) Branch Pneumococcal 7 2001-05-17 Completed [facility] Conjugate, PCV7 00:00:00 [place] [facility] (Prevnar7) Branch Polio (IPV/OPV) 2001-05-17 Completed [facility] 00:00:00 [facility] Varicella 2001-05-17 Completed [facility] (varivax)(chicken 00:00:00 [place] [facility] pox) Branch Pneumococcal 7 2001-05-17 Completed [facility] Conjugate, PCV7 00:00:00 [place] [facility] (Prevnar7) Branch Polio (IPV/OPV) 2001-05-17 Completed [facility] 00:00:00 [facility] Varicella 2001-05-17 Completed [facility] (varivax)(chicken 00:00:00 [place] [facility] pox) Branch Pneumococcal 7 2001-05-17 Completed [facility] Conjugate, PCV7 00:00:00 [place] [facility] (Prevnar7) [facility] Polio (IPV/OPV) 2001-05-17 Completed [facility] 00:00:00 [facility] Varicella 2001-05-17 Completed [facility] (varivax)(chicken 00:00:00 [place] [facility] pox) Branch Pneumococcal 7 2001-05-17 Completed [facility] Conjugate, PCV7 00:00:00 [place] [facility] (Prevnar7) Branch Polio (IPV/OPV) 2001-05-17 Completed [facility] 00:00:00 [facility] Varicella 2001-05-17 Completed [facility] (varivax)(chicken 00:00:00 [place] [facility] pox) Branch Pneumococcal 7 2001-05-17 Completed [facility] Conjugate, PCV7 00:00:00 [place] [facility] (Prevnar7) Branch Pneumococcal 7 2001-05-17 Completed [facility] Conjugate, PCV7 00:00:00 [place] [facility] (Prevnar7) Branch Polio (IPV/OPV) 2001-05-17 Completed [facility] 00:00:00 [facility] Varicella 2001-05-17 Completed [facility] (varivax)(chicken 00:00:00 [place] [facility] pox) [facility] Polio (IPV/OPV) 2001-05-17 Completed [facility] 00:00:00 [facility] Pneumococcal 7 2001-05-17 Completed [facility] Conjugate, PCV7 00:00:00 [place] [facility] (Prevnar7) Branch Polio (IPV/OPV) 2001-05-17 Completed [facility] 00:00:00 [facility] Varicella 2001-05-17 Completed [facility] (varivax)(chicken 00:00:00 [place] [facility] pox[facility] Varicella 2001-05-17 Completed [facility] (varivax)(chicken 00:00:00 [place] [facility] pox) Branch Pneumococcal 7 2001-05-17 Completed [facility] Conjugate, PCV7 00:00:00 [place] [facility] (Prevnar7) Branch Polio (IPV/OPV) 2001-05-17 Completed [facility] 00:00:00 [facility] Varicella 2001-05-17 Completed [facility] (varivax)(chicken 00:00:00 [place] [facility] pox) Branch Pneumococcal 7 2001-05-17 Completed [facility] Conjugate, PCV7 00:00:00 [place] [facility] (Prevnar7) Branch Polio (IPV/OPV) 2001-05-17 Completed [facility] 00:00:00 [facility] Varicella 2001-05-17 Completed [facility] (varivax)(chicken 00:00:00 [place] [facility] pox) Branch Pneumococcal 7 2001-05-17 Completed [facility] Conjugate, PCV7 00:00:00 [place] [facility] (Prevnar7) Branch Polio (IPV/OPV) 2001-05-17 Completed [facility] 00:00:00 [facility] Varicella 2001-05-17 Completed [facility] (varivax)(chicken 00:00:00 [place] [facility] Pneumococcal 7 2001-05-17 Completed [facility] Conjugate, PCV7 00:00:00 [place] [facility] (Prevnar7) Branch Polio (IPV/OPV) 2001-05-17 Completed [facility] 00:00:00 [facility] Varicella 2001-05-17 Completed [facility] (varivax)(chicken 00:00:00 [place] [facility] pox[facility] Pneumococcal 7 2001-05-17 Completed [facility] Conjugate, PCV7 00:00:00 [place] [facility] (Prevnar7) Branch Polio (IPV/OPV) 2001-05-17 Completed [facility] 00:00:00 [facility] Varicella 2001-05-17 Completed [facility] (varivax)(chicken 00:00:00 [place] [facility] pox) [facility] Pneumococcal 7 2001-05-17 Completed [facility] Conjugate, PCV7 00:00:00 [place] [facility] (Prevnar7) Branch Polio (IPV/OPV) 2001-05-17 Completed [facility] 00:00:00 [facility] Varicella 2001-05-17 Completed [facility] (varivax)(chicken 00:00:00 [place] [facility] pox[facility] Pneumococcal 7 2001-05-17 Completed [facility] Conjugate, PCV7 00:00:00 [place] [facility] (Prevnar7) Branch Polio (IPV/OPV) 2001-05-17 Completed [facility] 00:00:00 [facility] Varicella 2001-05-17 Completed [facility] (varivax)(chicken 00:00:00 [place] [facility] pox[facility] Pneumococcal 7 2001-05-17 Completed [facility] Conjugate, PCV7 00:00:00 [place] [facility] (Prevnar7) Branch Pneumococcal 7 2001-05-17 Completed [facility] Conjugate, PCV7 00:00:00 [place] [facility] (Prevnar7) Branch Polio (IPV/OPV) 2001-05-17 Completed [facility] 00:00:00 [facility] Varicella 2001-05-17 Completed [facility] (varivax)(chicken 00:00:00 [place] [facility] pox) Branch Polio (IPV/OPV) 2001-05-17 Completed [facility] 00:00:00 [facility] Pneumococcal 7 2001-05-17 Completed [facility] Conjugate, PCV7 00:00:00 [place] [facility] (Prevnar7) [facility] Varicella 2001-05-17 Completed [facility] (varivax)(chicken 00:00:00 [place] [facility] pox) [facility] Polio (IPV/OPV) 2001-05-17 Completed [facility] 00:00:00 [facility] Varicella 2001-05-17 Completed [facility] (varivax)(chicken 00:00:00 [place] [facility] pox) Branch Pneumococcal 7 2001-05-17 Completed [facility] Conjugate, PCV7 00:00:00 [place] [facility] (Prevnar7) Branch Polio (IPV/OPV) 2001-05-17 Completed [facility] 00:00:00 [facility] Varicella 2001-05-17 Completed [facility] (varivax)(chicken 00:00:00 [place] [facility] pox) Branch Pneumococcal 7 2001-05-17 Completed [facility] Conjugate, PCV7 00:00:00 [place] [facility] (Prevnar7) Branch Polio (IPV/OPV) 2001-05-17 Completed [facility] 00:00:00 [facility] Varicella 2001-05-17 Completed [facility] (varivax)(chicken 00:00:00 [place] [facility] pox) Branch Pneumococcal 7 2001-05-17 Completed [facility] Conjugate, PCV7 00:00:00 [place] [facility] (Prevnar7) Branch Polio (IPV/OPV) 2001-05-17 Completed [facility] 00:00:00 [facility] Varicella 2001-05-17 Completed [facility] (varivax)(chicken 00:00:00 [place] [facility] pox) Branch Pneumococcal 7 2001-05-17 Completed [facility] Conjugate, PCV7 00:00:00 [place] [facility] (Prevnar7) Branch Polio (IPV/OPV) 2001-05-17 Completed [facility] 00:00:00 [facility] Varicella 2001-05-17 Completed [facility] (varivax)(chicken 00:00:00 [place] [facility] pox) Branch Pneumococcal 7 2001-05-17 Completed [facility] Conjugate, PCV7 00:00:00 [place] [facility] (Prevnar7) Branch Polio (IPV/OPV) 2001-05-17 Completed [facility] 00:00:00 [facility] Varicella 2001-05-17 Completed [facility] (varivax)(chicken 00:00:00 [place] [facility] pox) Branch Pneumococcal 7 2001-05-17 Completed [facility] Conjugate, PCV7 00:00:00 [place] [facility] (Prevnar7) Branch Pneumococcal 7 2001-05-17 Completed [facility] Conjugate, PCV7 00:00:00 [place] [facility] (Prevnar7) Branch Polio (IPV/OPV) 2001-05-17 Completed [facility] 00:00:00 [facility] Varicella 2001-05-17 Completed [facility] (varivax)(chicken 00:00:00 [place] [facility] pox) Branch Polio (IPV/OPV) 2001-05-17 Completed [facility] 00:00:00 [facility] Varicella 2001-05-17 Completed [facility] (varivax)(chicken 00:00:00 [place] [facility] pox) Branch Pneumococcal 7 2001-05-17 Completed [facility] Conjugate, PCV7 00:00:00 [place] [facility] (Prevnar7) Branch Polio (IPV/OPV) 2001-05-17 Completed [facility] 00:00:00 [facility] Varicella 2001-05-17 Completed [facility] (varivax)(chicken 00:00:00 [place] [facility] pox) Branch Pneumococcal 7 2001-05-17 Completed [facility] Conjugate, PCV7 00:00:00 [place] [facility] (Prevnar7) Branch Polio (IPV/OPV) 2001-05-17 Completed [facility] 00:00:00 [facility] Varicella 2001-05-17 Completed [facility] (varivax)(chicken 00:00:00 [place] [facility] pox) Branch Pneumococcal 7 2001-05-17 Completed [facility] Conjugate, PCV7 00:00:00 [place] [facility] (Prevnar7) Branch Polio (IPV/OPV) 2001-05-17 Completed [facility] 00:00:00 [facility] Varicella 2001-05-17 Completed [facility] (varivax)(chicken 00:00:00 [place] [facility] pox) Branch Pneumococcal 7 2001-05-17 Completed [facility] Conjugate, PCV7 00:00:00 [place] [facility] (Prevnar7) Branch Polio (IPV/OPV) 2001-05-17 Completed [facility] 00:00:00 [facility] Varicella 2001-05-17 Completed [facility] (varivax)(chicken 00:00:00 [place] [facility] pox) Branch Pneumococcal 7 2001-05-17 Completed [facility] Conjugate, PCV7 00:00:00 [place] [facility] (Prevnar7) Branch Polio (IPV/OPV) 2001-05-17 Completed [facility] 00:00:00 [facility] Varicella 2001-05-17 Completed [facility] (varivax)(chicken 00:00:00 [place] [facility] pox) Branch Pneumococcal 7 2001-05-17 Completed [facility] Conjugate, PCV7 00:00:00 [place] [facility] (Prevnar7) Branch Polio (IPV/OPV) 2001-05-17 Completed [facility] 00:00:00 [facility] Varicella 2001-05-17 Completed [facility] (varivax)(chicken 00:00:00 [place] [facility] pox) Branch Pneumococcal 7 2001-05-17 Completed [facility] Conjugate, PCV7 00:00:00 [place] [facility] (Prevnar7) Branch Polio (IPV/OPV) 2001-05-17 Completed [facility] 00:00:00 [facility] Varicella 2001-05-17 Completed [facility] (varivax)(chicken 00:00:00 [place] [facility] pox) Branch Pneumococcal 7 2001-05-17 Completed [facility] Conjugate, PCV7 00:00:00 [place] [facility] (Prevnar7) Branch Polio (IPV/OPV) 2001-05-17 Completed [facility] 00:00:00 [facility] Varicella 2001-05-17 Completed [facility] (varivax)(chicken 00:00:00 [place] [facility] pox) Branch Pneumococcal 7 2001-05-17 Completed [facility] Conjugate, PCV7 00:00:00 [place] [facility] (Prevnar7) Branch Pneumococcal 7 2001-05-17 Completed [facility] Conjugate, PCV7 00:00:00 [place] [facility] (Prevnar7) Branch Polio (IPV/OPV) 2001-05-17 Completed [facility] 00:00:00 [facility] Varicella 2001-05-17 Completed [facility] (varivax)(chicken 00:00:00 [place] [facility] pox) Branch Polio (IPV/OPV) 2001-05-17 Completed [facility] 00:00:00 [facility] Varicella 2001-05-17 Completed [facility] (varivax)(chicken 00:00:00 [place] [facility] pox) Branch Pneumococcal 7 2001-05-17 Completed [facility] Conjugate, PCV7 00:00:00 [place] [facility] (Prevnar7) Branch Polio (IPV/OPV) 2001-05-17 Completed [facility] 00:00:00 [facility] Varicella 2001-05-17 Completed [facility] (varivax)(chicken 00:00:00 [place] [facility] pox) Branch Pneumococcal 7 2001-05-17 Completed [facility] Conjugate, PCV7 00:00:00 [place] [facility] (Prevnar7) Branch Polio (IPV/OPV) 2001-05-17 Completed [facility] 00:00:00 [facility] Varicella 2001-05-17 Completed [facility] (varivax)(chicken 00:00:00 [place] [facility] pox) Branch Pneumococcal 7 2001-05-17 Completed [facility] Conjugate, PCV7 00:00:00 [place] [facility] (Prevnar7) Branch Polio (IPV/OPV) 2001-05-17 Completed [facility] 00:00:00 [facility] Varicella 2001-05-17 Completed [facility] (varivax)(chicken 00:00:00 [place] [facility] pox) Branch Pneumococcal 7 2001-05-17 Completed [facility] Conjugate, PCV7 00:00:00 [place] [facility] (Prevnar7) Branch Polio (IPV/OPV) 2001-05-17 Completed [facility] 00:00:00 [facility] Varicella 2001-05-17 Completed [facility] (varivax)(chicken 00:00:00 [place] [facility] pox) Branch Pneumococcal 7 2001-05-17 Completed [facility] Conjugate, PCV7 00:00:00 [place] [facility] (Prevnar7) Branch Polio (IPV/OPV) 2001-05-17 Completed [facility] 00:00:00 [facility] Varicella 2001-05-17 Completed [facility] (varivax)(chicken 00:00:00 [place] [facility] pox) Branch Pneumococcal 7 2001-05-17 Completed [facility] Conjugate, PCV7 00:00:00 [place] [facility] (Prevnar7) Branch Polio (IPV/OPV) 2001-05-17 Completed [facility] 00:00:00 [facility] Varicella 2001-05-17 Completed [facility] (varivax)(chicken 00:00:00 [place] [facility] pox) Branch Pneumococcal 7 2001-05-17 Completed [facility] Conjugate, PCV7 00:00:00 [place] [facility] (Prevnar7) Branch Polio (IPV/OPV) 2001-05-17 Completed [facility] 00:00:00 [facility] Varicella 2001-05-17 Completed [facility] (varivax)(chicken 00:00:00 [place] [facility] pox) Branch Pneumococcal 7 2001-05-17 Completed [facility] Conjugate, PCV7 00:00:00 [place] [facility] (Prevnar7) Branch Polio (IPV/OPV) 2001-05-17 Completed [facility] 00:00:00 [facility] Varicella 2001-05-17 Completed [facility] (varivax)(chicken 00:00:00 [place] [facility] pox) Branch Pneumococcal 7 2001-05-17 Completed [facility] Conjugate, PCV7 00:00:00 [place] [facility] (Prevnar7) Branch Pneumococcal 7 2001-05-17 Completed [facility] Conjugate, PCV7 00:00:00 [place] [facility] (Prevnar7) Branch Polio (IPV/OPV) 2001-05-17 Completed [facility] 00:00:00 [facility] Varicella 2001-05-17 Completed [facility] (varivax)(chicken 00:00:00 [place] [facility] pox) Branch Polio (IPV/OPV) 2001-05-17 Completed [facility] 00:00:00 [facility] Varicella 2001-05-17 Completed [facility] (varivax)(chicken 00:00:00 [place] [facility] pox) Branch Pneumococcal 7 2001-05-17 Completed [facility] Conjugate, PCV7 00:00:00 [place] [facility] (Prevnar7) Branch Polio (IPV/OPV) 2001-05-17 Completed [facility] 00:00:00 [facility] Varicella 2001-05-17 Completed [facility] (varivax)(chicken 00:00:00 [place] [facility] pox) Branch Pneumococcal 7 2001-05-17 Completed [facility] Conjugate, PCV7 00:00:00 [place] [facility] (Prevnar7) Branch Polio (IPV/OPV) 2001-05-17 Completed [facility] 00:00:00 [facility] Varicella 2001-05-17 Completed [facility] (varivax)(chicken 00:00:00 [place] [facility] pox) Branch Pneumococcal 7 2001-05-17 Completed [facility] Conjugate, PCV7 00:00:00 [place] [facility] (Prevnar7) Branch Polio (IPV/OPV) 2001-05-17 Completed [facility] 00:00:00 [facility] Varicella 2001-05-17 Completed [facility] (varivax)(chicken 00:00:00 [place] [facility] pox) Branch Pneumococcal 7 2001-05-17 Completed [facility] Conjugate, PCV7 00:00:00 [place] [facility] (Prevnar7) Branch Polio (IPV/OPV) 2001-05-17 Completed [facility] 00:00:00 [facility] Varicella 2001-05-17 Completed [facility] (varivax)(chicken 00:00:00 [place] [facility] pox) Branch Pneumococcal 7 2001-05-17 Completed [facility] Conjugate, PCV7 00:00:00 [place] [facility] (Prevnar7) Branch Polio (IPV/OPV) 2001-05-17 Completed [facility] 00:00:00 [facility] Varicella 2001-05-17 Completed [facility] (varivax)(chicken 00:00:00 [place] [facility] pox) Branch Pneumococcal 7 2001-05-17 Completed [facility] Conjugate, PCV7 00:00:00 [place] [facility] (Prevnar7) Branch Polio (IPV/OPV) 2001-05-17 Completed [facility] 00:00:00 [facility] Varicella 2001-05-17 Completed [facility] (varivax)(chicken 00:00:00 [place] [facility] pox) Branch Pneumococcal 7 2001-05-17 Completed [facility] Conjugate, PCV7 00:00:00 [place] [facility] (Prevnar7) Branch Polio (IPV/OPV) 2001-05-17 Completed [facility] 00:00:00 [facility] Varicella 2001-05-17 Completed [facility] (varivax)(chicken 00:00:00 [place] [facility] pox) Branch Pneumococcal 7 2001-05-17 Completed [facility] Conjugate, PCV7 00:00:00 [place] [facility] (Prevnar7) Branch Pneumococcal 7 2001-05-17 Completed [facility] Conjugate, PCV7 00:00:00 [place] [facility] (Prevnar7) Branch Polio (IPV/OPV) 2001-05-17 Completed [facility] 00:00:00 [facility] Varicella 2001-05-17 Completed [facility] (varivax)(chicken 00:00:00 [place] [facility] pox) [facility] Polio (IPV/OPV) 2001-05-17 Completed [facility] 00:00:00 [facility] Varicella 2001-05-17 Completed [facility] (varivax)(chicken 00:00:00 [place] [facility] pox) Branch Pneumococcal 7 2001-05-17 Completed [facility] Conjugate, PCV7 00:00:00 [place] [facility] (Prevnar7) Branch Polio (IPV/OPV) 2001-05-17 Completed [facility] 00:00:00 [facility] Varicella 2001-05-17 Completed [facility] (varivax)(chicken 00:00:00 [place] [facility] pox) Branch Pneumococcal 7 2001-05-17 Completed [facility] Conjugate, PCV7 00:00:00 [place] [facility] (Prevnar7) Branch Polio (IPV/OPV) 2001-05-17 Completed [facility] 00:00:00 [facility] Varicella 2001-05-17 Completed [facility] (varivax)(chicken 00:00:00 [place] [facility] pox) Branch Pneumococcal 7 2001-05-17 Completed [facility] Conjugate, PCV7 00:00:00 [place] [facility] (Prevnar7) Branch Polio (IPV/OPV) 2001-05-17 Completed [facility] 00:00:00 [facility] Varicella 2001-05-17 Completed [facility] (varivax)(chicken 00:00:00 [place] [facility] pox) Branch Pneumococcal 7 2001-05-17 Completed [facility] Conjugate, PCV7 00:00:00 [place] [facility] (Prevnar7) Branch Polio (IPV/OPV) 2001-05-17 Completed [facility] 00:00:00 [facility] Varicella 2001-05-17 Completed [facility] (varivax)(chicken 00:00:00 [place] [facility] pox) [facility] Pneumococcal 7 2001-05-17 Completed [facility] Conjugate, PCV7 00:00:00 [place] [facility] (Prevnar7) Branch Polio (IPV/OPV) 2001-05-17 Completed [facility] 00:00:00 [facility] Varicella 2001-05-17 Completed [facility] (varivax)(chicken 00:00:00 [place] [facility] pox) Branch Pneumococcal 7 2001-05-17 Completed [facility] Conjugate, PCV7 00:00:00 [place] [facility] (Prevnar7) Branch Polio (IPV/OPV) 2001-05-17 Completed [facility] 00:00:00 [facility] Varicella 2001-05-17 Completed [facility] (varivax)(chicken 00:00:00 [place] [facility] pox) Branch Pneumococcal 7 2001-05-17 Completed [facility] Conjugate, PCV7 00:00:00 [place] [facility] (Prevnar7) Branch Polio (IPV/OPV) 2001-05-17 Completed [facility] 00:00:00 [facility] Varicella 2001-05-17 Completed [facility] (varivax)(chicken 00:00:00 [place] [facility] pox) Branch Pneumococcal 7 2001-05-17 Completed [facility] Conjugate, PCV7 00:00:00 [place] [facility] (Prevnar7) Branch Pneumococcal 7 2001-05-17 Completed [facility] Conjugate, PCV7 00:00:00 [place] [facility] (Prevnar7) Branch Polio (IPV/OPV) 2001-05-17 Completed [facility] 00:00:00 [facility] Varicella 2001-05-17 Completed [facility] (varivax)(chicken 00:00:00 [place] [facility] pox[facility] Polio (IPV/OPV) 2001-05-17 Completed [facility] 00:00:00 [facility] Varicella 2001-05-17 Completed [facility] (varivax)(chicken 00:00:00 [place] [facility] pox) Branch Pneumococcal 7 2001-05-17 Completed [facility] Conjugate, PCV7 00:00:00 [place] [facility] (Prevnar7) Branch Polio (IPV/OPV) 2001-05-17 Completed [facility] 00:00:00 [facility] Varicella 2001-05-17 Completed [facility] (varivax)(chicken 00:00:00 [place] [facility] pox) Branch Pneumococcal 7 2001-05-17 Completed [facility] Conjugate, PCV7 00:00:00 [place] [facility] (Prevnar7) Branch Polio (IPV/OPV) 2001-05-17 Completed [facility] 00:00:00 [facility] Varicella 2001-05-17 Completed [facility] (varivax)(chicken 00:00:00 [place] [facility] pox) Branch Pneumococcal 7 2001-05-17 Completed [facility] Conjugate, PCV7 00:00:00 [place] [facility] (Prevnar7) Branch Polio (IPV/OPV) 2001-05-17 Completed [facility] 00:00:00 [facility] Varicella 2001-05-17 Completed [facility] (varivax)(chicken 00:00:00 [place] [facility] p[facility]) [facility] Pneumococcal 7 2001-05-17 Completed [facility] Conjugate, PCV7 00:00:00 [place] [facility] (Prevnar7) Branch Polio (IPV/OPV) 2001-05-17 Completed [facility] 00:00:00 [facility] Varicella 2001-05-17 Completed [facility] (varivax)(chicken 00:00:00 [place] [facility] Pneumococcal 7 2001-05-17 Completed [facility] Conjugate, PCV7 00:00:00 [place] [facility] (Prevnar7) Branch Polio (IPV/OPV) 2001-05-17 Completed [facility] of 00:00:00 [facility] Varicella 2001-05-17 Completed [facility] of (varivax)(chicken 00:00:00 [place] [facility] pox) [facility] Pneumococcal 7 2001-05-17 Completed [facility] of Conjugate, PCV7 00:00:00 [place] [facility] (Prevnar7) Branch Polio (IPV/OPV) 2001-05-17 Completed [facility] 00:00:00 [facility] Varicella 2001-05-17 Completed [facility] (varivax)(chicken 00:00:00 [place] [facility] pox) [facility] Pneumococcal 7 2001-05-17 Completed [facility] Conjugate, PCV7 00:00:00 [place] [facility] (Prevnar7) Branch Polio (IPV/OPV) 2001-05-17 Completed [facility] 00:00:00 [facility] Varicella 2001-05-17 Completed [facility] (varivax)(chicken 00:00:00 [place] [facility] pox) Branch Pneumococcal 7 2001-05-17 Completed [facility] Conjugate, PCV7 00:00:00 [place] [facility] (Prevnar7) Branch Polio (IPV/OPV) 2001-05-17 Completed [facility] 00:00:00 [facility] Varicella 2001-05-17 Completed [facility] (varivax)(chicken 00:00:00 [place] [facility] pox) [facility] Pneumococcal 7 2001-05-17 Completed [facility] Conjugate, PCV7 00:00:00 [place] [facility] (Prevnar7) Branch Polio (IPV/OPV) 2001-05-17 Completed [facility] 00:00:00 [facility] Pneumococcal 7 2001-05-17 Completed [facility] Conjugate, PCV7 00:00:00 [place] [facility] (Prevnar7) Branch Polio (IPV/OPV) 2001-05-17 Completed [facility] 00:00:00 [facility] Varicella 2001-05-17 Completed [facility] (varivax)(chicken 00:00:00 [place] [facility] pox) [facility] Varicella 2001-05-17 Completed [facility] (varivax)(chicken 00:00:00 [place] [facility] pox) [facility] Pneumococcal 7 2001-05-17 Completed [facility] Conjugate, PCV7 00:00:00 [place] [facility] (Prevnar7) [facility] Polio (IPV/OPV) 2001-05-17 Completed [facility] 00:00:00 [facility] Varicella 2001-05-17 Completed [facility] (varivax)(chicken 00:00:00 [place] [facility] pox) Branch Pneumococcal 7 2001-05-17 Completed [facility] Conjugate, PCV7 00:00:00 [place] [facility] (Prevnar7) Branch Polio (IPV/OPV) 2001-05-17 Completed [facility] 00:00:00 [facility] Varicella 2001-05-17 Completed [facility] (varivax)(chicken 00:00:00 [place] [facility] pox) Branch Pneumococcal 7 2001-05-17 Completed [facility] Conjugate, PCV7 00:00:00 [place] [facility] (Prevnar7) Branch Polio (IPV/OPV) 2001-05-17 Completed [facility] 00:00:00 [facility] Varicella 2001-05-17 Completed [facility] (varivax)(chicken 00:00:00 [place] [facility] pox) Branch Pneumococcal 7 2001-05-17 Completed [facility] Conjugate, PCV7 00:00:00 [place] [facility] (Prevnar7) Branch Polio (IPV/OPV) 2001-05-17 Completed [facility] 00:00:00 [facility] Varicella 2001-05-17 Completed [facility] (varivax)(chicken 00:00:00 [place] [facility] pox) Branch Pneumococcal 7 2001-05-17 Completed [facility] Conjugate, PCV7 00:00:00 [place] [facility] (Prevnar7) Branch Polio (IPV/OPV) 2001-05-17 Completed [facility] 00:00:00 [facility] Varicella 2001-05-17 Completed [facility] (varivax)(chicken 00:00:00 [place] [facility] pox) Branch Pneumococcal 7 2001-05-17 Completed [facility] Conjugate, PCV7 00:00:00 [place] [facility] (Prevnar7) Branch Polio (IPV/OPV) 2001-05-17 Completed [facility] 00:00:00 [facility] Varicella 2001-05-17 Completed [facility] (varivax)(chicken 00:00:00 [place] [facility] pox) [facility] Pneumococcal 7 2001-05-17 Completed [facility] Conjugate, PCV7 00:00:00 [place] [facility] (Prevnar7) Branch Polio (IPV/OPV) 2001-05-17 Completed [facility] 00:00:00 [facility] Varicella 2001-05-17 Completed [facility] (varivax)(chicken 00:00:00 [place] [facility] pox) Branch Pneumococcal 7 2001-05-17 Completed [facility] Conjugate, PCV7 00:00:00 [place] [facility] (Prevnar7) Branch Pneumococcal 7 2001-05-17 Completed [facility] Conjugate, PCV7 00:00:00 [place] [facility] (Prevnar7) Branch Polio (IPV/OPV) 2001-05-17 Completed [facility] 00:00:00 [facility] Varicella 2001-05-17 Completed [facility] (varivax)(chicken 00:00:00 [place] [facility] pox) Branch Polio (IPV/OPV) 2001-05-17 Completed [facility] 00:00:00 [facility] Pneumococcal 7 2001-05-17 Completed [facility] Conjugate, PCV7 00:00:00 [place] [facility] (Prevnar7) [facility] Varicella 2001-05-17 Completed [facility] (varivax)(chicken 00:00:00 [place] [facility] pox) Branch Polio (IPV/OPV) 2001-05-17 Completed [facility] 00:00:00 [facility] Varicella 2001-05-17 Completed [facility] (varivax)(chicken 00:00:00 [place] [facility] pox) Branch Pneumococcal 7 2001-05-17 Completed [facility] Conjugate, PCV7 00:00:00 [place] [facility] (Prevnar7) Branch Polio (IPV/OPV) 2001-05-17 Completed [facility] 00:00:00 [facility] Varicella 2001-05-17 Completed [facility] (varivax)(chicken 00:00:00 [place] [facility] pox) Branch Pneumococcal 7 2001-05-17 Completed [facility] Conjugate, PCV7 00:00:00 [place] [facility] (Prevnar7) Branch Polio (IPV/OPV) 2001-05-17 Completed [facility] 00:00:00 [facility] Varicella 2001-05-17 Completed [facility] (varivax)(chicken 00:00:00 [place] [facility] pox) Branch Pneumococcal 7 2001-05-17 Completed [facility] Conjugate, PCV7 00:00:00 [place] [facility] (Prevnar7) Branch Polio (IPV/OPV) 2001-05-17 Completed [facility] 00:00:00 [facility] Varicella 2001-05-17 Completed [facility] (varivax)(chicken 00:00:00 [place] [facility] pox) Branch Pneumococcal 7 2001-05-17 Completed [facility] Conjugate, PCV7 00:00:00 [place] [facility] (Prevnar7) Branch Polio (IPV/OPV) 2001-05-17 Completed [facility] 00:00:00 [facility] Varicella 2001-05-17 Completed [facility] (varivax)(chicken 00:00:00 [place] [facility] pox) Branch Pneumococcal 7 2001-05-17 Completed [facility] Conjugate, PCV7 00:00:00 [place] [facility] (Prevnar7) Branch Polio (IPV/OPV) 2001-05-17 Completed [facility] 00:00:00 [facility] Varicella 2001-05-17 Completed [facility] (varivax)(chicken 00:00:00 [place] [facility] pox) Branch Pneumococcal 7 2001-05-17 Completed [facility] Conjugate, PCV7 00:00:00 [place] [facility] (Prevnar7) Branch Polio (IPV/OPV) 2001-05-17 Completed [facility] 00:00:00 [facility] Varicella 2001-05-17 Completed [facility] (varivax)(chicken 00:00:00 [place] [facility] pox) Branch Pneumococcal 7 2001-05-17 Completed [facility] Conjugate, PCV7 00:00:00 [place] [facility] (Prevnar7) Branch Polio (IPV/OPV) 2001-05-17 Completed [facility] 00:00:00 [facility] Varicella 2001-05-17 Completed [facility] (varivax)(chicken 00:00:00 [place] [facility] pox) Branch Pneumococcal 7 2001-05-17 Completed [facility] Conjugate, PCV7 00:00:00 [place] [facility] (Prevnar7) Branch Pneumococcal 7 2001-05-17 Completed [facility] Conjugate, PCV7 00:00:00 [place] [facility] (Prevnar7) Branch Polio (IPV/OPV) 2001-05-17 Completed [facility] 00:00:00 [facility] Varicella 2001-05-17 Completed [facility] (varivax)(chicken 00:00:00 [place] [facility] pox) Branch Polio (IPV/OPV) 2001-05-17 Completed [facility] 00:00:00 [facility] Varicella 2001-05-17 Completed [facility] (varivax)(chicken 00:00:00 [place] [facility] pox) Branch Pneumococcal 7 2001-05-17 Completed [facility] Conjugate, PCV7 00:00:00 [place] [facility] (Prevnar7) Branch Polio (IPV/OPV) 2001-05-17 Completed [facility] 00:00:00 [facility] Varicella 2001-05-17 Completed [facility] (varivax)(chicken 00:00:00 [place] [facility] pox) Branch Pneumococcal 7 2001-05-17 Completed [facility] Conjugate, PCV7 00:00:00 [place] [facility] (Prevnar7) Branch Polio (IPV/OPV) 2001-05-17 Completed [facility] 00:00:00 [facility] Varicella 2001-05-17 Completed [facility] (varivax)(chicken 00:00:00 [place] [facility] pox) Branch Pneumococcal 7 2001-05-17 Completed [facility] Conjugate, PCV7 00:00:00 [place] [facility] (Prevnar7) Branch Polio (IPV/OPV) 2001-05-17 Completed [facility] 00:00:00 [facility] Varicella 2001-05-17 Completed [facility] (varivax)(chicken 00:00:00 [place] [facility] pox) Branch Pneumococcal 7 2001-05-17 Completed [facility] Conjugate, PCV7 00:00:00 [place] [facility] (Prevnar7) Branch Polio (IPV/OPV) 2001-05-17 Completed [facility] 00:00:00 [facility] Varicella 2001-05-17 Completed [facility] (varivax)(chicken 00:00:00 [place] [facility] pox) Branch Pneumococcal 7 2001-05-17 Completed [facility] Conjugate, PCV7 00:00:00 [place] [facility] (Prevnar7) Branch Polio (IPV/OPV) 2001-05-17 Completed [facility] 00:00:00 [facility] Varicella 2001-05-17 Completed [facility] (varivax)(chicken 00:00:00 [place] [facility] pox) Branch Pneumococcal 7 2001-05-17 Completed [facility] Conjugate, PCV7 00:00:00 [place] [facility] (Prevnar7) Branch Pneumococcal 7 2001-04-06 Completed [facility] Conjugate, PCV7 00:00:00 [place] [facility] (Prevnar7) Branch Pneumococcal 7 2001-04-06 Completed [facility] Conjugate, PCV7 00:00:00 [place] [facility] (Prevnar7) Branch Pneumococcal 7 2001-04-06 Completed [facility] Conjugate, PCV7 00:00:00 [place] [facility] (Prevnar7) Branch Pneumococcal 7 2001-04-06 Completed [facility] Conjugate, PCV7 00:00:00 [place] [facility] (Prevnar7) Branch Pneumococcal 7 2001-04-06 Completed [facility] Conjugate, PCV7 00:00:00 [place] [facility] (Prevnar7) Branch Pneumococcal 7 2001-04-06 Completed [facility] Conjugate, PCV7 00:00:00 [place] [facility] (Prevnar7) Branch Pneumococcal 7 2001-04-06 Completed [facility] Conjugate, PCV7 00:00:00 [place] [facility] (Prevnar7) Branch Pneumococcal 7 2001-04-06 Completed [facility] Conjugate, PCV7 00:00:00 [place] [facility] (Prevnar7) Branch Pneumococcal 7 2001-04-06 Completed [facility] Conjugate, PCV7 00:00:00 [place] [facility] (Prevnar7) Branch Pneumococcal 7 2001-04-06 Completed [facility] Conjugate, PCV7 00:00:00 [place] [facility] (Prevnar7) Branch Pneumococcal 7 2001-04-06 Completed [facility] Conjugate, PCV7 00:00:00 [place] [facility] (Prevnar7) Branch Pneumococcal 7 2001-04-06 Completed [facility] Conjugate, PCV7 00:00:00 [place] [facility] (Prevnar7) Branch Pneumococcal 7 2001-04-06 Completed [facility] Conjugate, PCV7 00:00:00 [place] [facility] (Prevnar7) Branch Pneumococcal 7 2001-04-06 Completed [facility] Conjugate, PCV7 00:00:00 [place] [facility] (Prevnar7) Branch Pneumococcal 7 2001-04-06 Completed [facility] Conjugate, PCV7 00:00:00 [place] [facility] (Prevnar7) Branch Pneumococcal 7 2001-04-06 Completed [facility] Conjugate, PCV7 00:00:00 [place] [facility] (Prevnar7) Branch Pneumococcal 7 2001-04-06 Completed [facility] Conjugate, PCV7 00:00:00 [place] [facility] (Prevnar7) Branch Pneumococcal 7 2001-04-06 Completed [facility] Conjugate, PCV7 00:00:00 [place] [facility] (Prevnar7) Branch Pneumococcal 7 2001-04-06 Completed [facility] Conjugate, PCV7 00:00:00 [place] [facility] (Prevnar7) Branch Pneumococcal 7 2001-04-06 Completed [facility] Conjugate, PCV7 00:00:00 [place] [facility] (Prevnar7) Branch Pneumococcal 7 2001-04-06 Completed [facility] Conjugate, PCV7 00:00:00 [place] [facility] (Prevnar7) Branch Pneumococcal 7 2001-04-06 Completed [facility] Conjugate, PCV7 00:00:00 [place] [facility] (Prevnar7) Branch Pneumococcal 7 2001-04-06 Completed [facility] Conjugate, PCV7 00:00:00 [place] [facility] (Prevnar7) Branch Pneumococcal 7 2001-04-06 Completed [facility] Conjugate, PCV7 00:00:00 [place] [facility] (Prevnar7) Branch Pneumococcal 7 2001-04-06 Completed [facility] Conjugate, PCV7 00:00:00 [place] [facility] (Prevnar7) Branch Pneumococcal 7 2001-04-06 Completed [facility] Conjugate, PCV7 00:00:00 [place] [facility] (Prevnar7) Branch Pneumococcal 7 2001-04-06 Completed [facility] Conjugate, PCV7 00:00:00 [place] [facility] (Prevnar7) Branch Pneumococcal 7 2001-04-06 Completed [facility] Conjugate, PCV7 00:00:00 [place] [facility] (Prevnar7) Branch Pneumococcal 7 2001-04-06 Completed [facility] Conjugate, PCV7 00:00:00 [place] [facility] (Prevnar7) Branch Pneumococcal 7 2001-04-06 Completed [facility] Conjugate, PCV7 00:00:00 [place] [facility] (Prevnar7) Branch Pneumococcal 7 2001-04-06 Completed [facility] Conjugate, PCV7 00:00:00 [place] [facility] (Prevnar7) Branch Pneumococcal 7 2001-04-06 Completed [facility] Conjugate, PCV7 00:00:00 [place] [facility] (Prevnar7) Branch Pneumococcal 7 2001-04-06 Completed [facility] Conjugate, PCV7 00:00:00 [place] [facility] (Prevnar7) Branch Pneumococcal 7 2001-04-06 Completed [facility] Conjugate, PCV7 00:00:00 [place] [facility] (Prevnar7) Branch Pneumococcal 7 2001-04-06 Completed [facility] Conjugate, PCV7 00:00:00 [place] [facility] (Prevnar7) Branch Pneumococcal 7 2001-04-06 Completed [facility] Conjugate, PCV7 00:00:00 [place] [facility] (Prevnar7) Branch Pneumococcal 7 2001-04-06 Completed [facility] Conjugate, PCV7 00:00:00 [place] [facility] (Prevnar7) Branch Pneumococcal 7 2001-04-06 Completed [facility] Conjugate, PCV7 00:00:00 [place] [facility] (Prevnar7) Branch Pneumococcal 7 2001-04-06 Completed [facility] Conjugate, PCV7 00:00:00 [place] [facility] (Prevnar7) Branch Pneumococcal 7 2001-04-06 Completed [facility] Conjugate, PCV7 00:00:00 [place] [facility] (Prevnar7) Branch Pneumococcal 7 2001-04-06 Completed [facility] Conjugate, PCV7 00:00:00 [place] [facility] (Prevnar7) Branch Pneumococcal 7 2001-04-06 Completed [facility] Conjugate, PCV7 00:00:00 [place] [facility] (Prevnar7) Branch Pneumococcal 7 2001-04-06 Completed [facility] Conjugate, PCV7 00:00:00 [place] [facility] (Prevnar7) Branch Pneumococcal 7 2001-04-06 Completed [facility] Conjugate, PCV7 00:00:00 [place] [facility] (Prevnar7) Branch Pneumococcal 7 2001-04-06 Completed [facility] Conjugate, PCV7 00:00:00 [place] [facility] (Prevnar7) Branch Pneumococcal 7 2001-04-06 Completed [facility] Conjugate, PCV7 00:00:00 [place] [facility] (Prevnar7) Branch Pneumococcal 7 2001-04-06 Completed [facility] Conjugate, PCV7 00:00:00 [place] [facility] (Prevnar7) Branch Pneumococcal 7 2001-04-06 Completed [facility] Conjugate, PCV7 00:00:00 [place] [facility] (Prevnar7) Branch Pneumococcal 7 2001-04-06 Completed [facility] Conjugate, PCV7 00:00:00 [place] [facility] (Prevnar7) Branch Pneumococcal 7 2001-04-06 Completed [facility] Conjugate, PCV7 00:00:00 [place] [facility] (Prevnar7) Branch Pneumococcal 7 2001-04-06 Completed [facility] Conjugate, PCV7 00:00:00 [place] [facility] (Prevnar7) Branch Pneumococcal 7 2001-04-06 Completed [facility] Conjugate, PCV7 00:00:00 [place] [facility] (Prevnar7) Branch Pneumococcal 7 2001-04-06 Completed [facility] Conjugate, PCV7 00:00:00 [place] [facility] (Prevnar7) Branch Pneumococcal 7 2001-04-06 Completed [facility] Conjugate, PCV7 00:00:00 [place] [facility] (Prevnar7) Branch Pneumococcal 7 2001-04-06 Completed [facility] Conjugate, PCV7 00:00:00 [place] [facility] (Prevnar7) Branch Pneumococcal 7 2001-04-06 Completed [facility] Conjugate, PCV7 00:00:00 [place] [facility] (Prevnar7) Branch Pneumococcal 7 2001-04-06 Completed [facility] Conjugate, PCV7 00:00:00 [place] [facility] (Prevnar7) Branch Pneumococcal 7 2001-04-06 Completed [facility] Conjugate, PCV7 00:00:00 [place] [facility] (Prevnar7) Branch Pneumococcal 7 2001-04-06 Completed [facility] Conjugate, PCV7 00:00:00 [place] [facility] (Prevnar7) Branch Pneumococcal 7 2001-04-06 Completed [facility] Conjugate, PCV7 00:00:00 [place] [facility] (Prevnar7) Branch Pneumococcal 7 2001-04-06 Completed [facility] Conjugate, PCV7 00:00:00 [place] [facility] (Prevnar7) Branch Pneumococcal 7 2001-04-06 Completed [facility] Conjugate, PCV7 00:00:00 [place] [facility] (Prevnar7) Branch Pneumococcal 7 2001-04-06 Completed [facility] Conjugate, PCV7 00:00:00 [place] [facility] (Prevnar7) Branch Pneumococcal 7 2001-04-06 Completed [facility] Conjugate, PCV7 00:00:00 [place] [facility] (Prevnar7) Branch Pneumococcal 7 2001-04-06 Completed [facility] Conjugate, PCV7 00:00:00 [place] [facility] (Prevnar7) Branch Pneumococcal 7 2001-04-06 Completed [facility] Conjugate, PCV7 00:00:00 [place] [facility] (Prevnar7) Branch Pneumococcal 7 2001-04-06 Completed [facility] Conjugate, PCV7 00:00:00 [place] [facility] (Prevnar7) Branch Pneumococcal 7 2001-04-06 Completed [facility] Conjugate, PCV7 00:00:00 [place] [facility] (Prevnar7) Branch Pneumococcal 7 2001-04-06 Completed [facility] Conjugate, PCV7 00:00:00 [place] [facility] (Prevnar7) Branch Pneumococcal 7 2001-04-06 Completed [facility] Conjugate, PCV7 00:00:00 [place] [facility] (Prevnar7) Branch Pneumococcal 7 2001-04-06 Completed [facility] Conjugate, PCV7 00:00:00 [place] [facility] (Prevnar7) Branch Pneumococcal 7 2001-04-06 Completed [facility] Conjugate, PCV7 00:00:00 [place] [facility] (Prevnar7) Branch Pneumococcal 7 2001-04-06 Completed [facility] Conjugate, PCV7 00:00:00 [place] [facility] (Prevnar7) Branch Pneumococcal 7 2001-04-06 Completed [facility] Conjugate, PCV7 00:00:00 [place] [facility] (Prevnar7) Branch Pneumococcal 7 2001-04-06 Completed [facility] Conjugate, PCV7 00:00:00 [place] [facility] (Prevnar7) Branch Pneumococcal 7 2001-04-06 Completed [facility] Conjugate, PCV7 00:00:00 [place] [facility] (Prevnar7) Branch Pneumococcal 7 2001-04-06 Completed [facility] Conjugate, PCV7 00:00:00 [place] [facility] (Prevnar7) Branch Pneumococcal 7 2001-04-06 Completed [facility] Conjugate, PCV7 00:00:00 [place] [facility] (Prevnar7) Branch Pneumococcal 7 2001-04-06 Completed [facility] Conjugate, PCV7 00:00:00 [place] [facility] (Prevnar7) Branch Pneumococcal 7 2001-04-06 Completed [facility] Conjugate, PCV7 00:00:00 [place] [facility] (Prevnar7) Branch Pneumococcal 7 2001-04-06 Completed [facility] Conjugate, PCV7 00:00:00 [place] [facility] (Prevnar7) Branch Pneumococcal 7 2001-04-06 Completed [facility] Conjugate, PCV7 00:00:00 [place] [facility] (Prevnar7) Branch Pneumococcal 7 2001-04-06 Completed [facility] Conjugate, PCV7 00:00:00 [place] [facility] (Prevnar7) Branch Pneumococcal 7 2001-04-06 Completed [facility] Conjugate, PCV7 00:00:00 [place] [facility] (Prevnar7) Branch Pneumococcal 7 2001-04-06 Completed [facility] Conjugate, PCV7 00:00:00 [place] [facility] (Prevnar7) Branch Pneumococcal 7 2001-04-06 Completed [facility] Conjugate, PCV7 00:00:00 [place] [facility] (Prevnar7) Branch Pneumococcal 7 2001-04-06 Completed [facility] Conjugate, PCV7 00:00:00 [place] [facility] (Prevnar7) Branch Pneumococcal 7 2001-04-06 Completed [facility] Conjugate, PCV7 00:00:00 [place] [facility] (Prevnar7) Branch Pneumococcal 7 2001-04-06 Completed [facility] Conjugate, PCV7 00:00:00 [place] [facility] (Prevnar7) Branch Pneumococcal 7 2001-04-06 Completed [facility] Conjugate, PCV7 00:00:00 [place] [facility] (Prevnar7) Branch Pneumococcal 7 2001-04-06 Completed [facility] Conjugate, PCV7 00:00:00 [place] [facility] (Prevnar7) Branch Pneumococcal 7 2001-04-06 Completed [facility] Conjugate, PCV7 00:00:00 [place] [facility] (Prevnar7) Branch Pneumococcal 7 2001-04-06 Completed [facility] Conjugate, PCV7 00:00:00 [place] [facility] (Prevnar7) Branch Pneumococcal 7 2001-04-06 Completed [facility] Conjugate, PCV7 00:00:00 [place] [facility] (Prevnar7) Branch Pneumococcal 7 2001-04-06 Completed [facility] Conjugate, PCV7 00:00:00 [place] [facility] (Prevnar7) Branch Pneumococcal 7 2001-04-06 Completed [facility] Conjugate, PCV7 00:00:00 [place] [facility] (Prevnar7) Branch Pneumococcal 7 2001-04-06 Completed [facility] Conjugate, PCV7 00:00:00 [place] [facility] (Prevnar7) Branch Pneumococcal 7 2001-04-06 Completed [facility] Conjugate, PCV7 00:00:00 [place] [facility] (Prevnar7) Branch Pneumococcal 7 2001-04-06 Completed [facility] Conjugate, PCV7 00:00:00 [place] [facility] (Prevnar7) Branch Pneumococcal 7 2001-04-06 Completed [facility] Conjugate, PCV7 00:00:00 [place] [facility] (Prevnar7) Branch Pneumococcal 7 2001-04-06 Completed [facility] Conjugate, PCV7 00:00:00 [place] [facility] (Prevnar7) Branch Pneumococcal 7 2001-04-06 Completed [facility] Conjugate, PCV7 00:00:00 [place] [facility] (Prevnar7) Branch Pneumococcal 7 2001-04-06 Completed [facility] Conjugate, PCV7 00:00:00 [place] [facility] (Prevnar7) Branch Pneumococcal 7 2001-04-06 Completed [facility] Conjugate, PCV7 00:00:00 [place] [facility] (Prevnar7) Branch Pneumococcal 7 2001-04-06 Completed [facility] Conjugate, PCV7 00:00:00 [place] [facility] (Prevnar7) Branch Pneumococcal 7 2001-04-06 Completed [facility] Conjugate, PCV7 00:00:00 [place] [facility] (Prevnar7) Branch Pneumococcal 7 2001-04-06 Completed [facility] Conjugate, PCV7 00:00:00 [place] [facility] (Prevnar7) Branch Pneumococcal 7 2001-04-06 Completed [facility] Conjugate, PCV7 00:00:00 [place] [facility] (Prevnar7) Branch Pneumococcal 7 2001-04-06 Completed [facility] Conjugate, PCV7 00:00:00 [place] [facility] (Prevnar7) Branch Pneumococcal 7 2001-04-06 Completed [facility] Conjugate, PCV7 00:00:00 [place] [facility] (Prevnar7) Branch Pneumococcal 7 2001-04-06 Completed [facility] Conjugate, PCV7 00:00:00 [place] [facility] (Prevnar7) Branch Pneumococcal 7 2001-04-06 Completed [facility] Conjugate, PCV7 00:00:00 [place] [facility] (Prevnar7) Branch Pneumococcal 7 2001-04-06 Completed [facility] Conjugate, PCV7 00:00:00 [place] [facility] (Prevnar7) Branch Pneumococcal 7 2001-04-06 Completed [facility] Conjugate, PCV7 00:00:00 [place] [facility] (Prevnar7) Branch Pneumococcal 7 2001-04-06 Completed [facility] Conjugate, PCV7 00:00:00 [place] [facility] (Prevnar7) Branch Pneumococcal 7 2001-04-06 Completed [facility] Conjugate, PCV7 00:00:00 [place] [facility] (Prevnar7) Branch Pneumococcal 7 2001-04-06 Completed [facility] Conjugate, PCV7 00:00:00 [place] [facility] (Prevnar7) Branch Pneumococcal 7 2001-04-06 Completed [facility] Conjugate, PCV7 00:00:00 [place] [facility] (Prevnar7) Branch Pneumococcal 7 2001-04-06 Completed [facility] Conjugate, PCV7 00:00:00 [place] [facility] (Prevnar7) Branch Pneumococcal 7 2001-04-06 Completed [facility] Conjugate, PCV7 00:00:00 [place] [facility] (Prevnar7) Branch Pneumococcal 7 2001-04-06 Completed [facility] Conjugate, PCV7 00:00:00 [place] [facility] (Prevnar7) Branch Pneumococcal 7 2001-04-06 Completed [facility] Conjugate, PCV7 00:00:00 [place] [facility] (Prevnar7) Branch Pneumococcal 7 2001-04-06 Completed [facility] Conjugate, PCV7 00:00:00 [place] [facility] (Prevnar7) Branch Pneumococcal 7 2001-04-06 Completed [facility] Conjugate, PCV7 00:00:00 [place] [facility] (Prevnar7) Branch Pneumococcal 7 2001-04-06 Completed [facility] Conjugate, PCV7 00:00:00 [place] [facility] (Prevnar7) Branch Pneumococcal 7 2001-04-06 Completed [facility] Conjugate, PCV7 00:00:00 [place] [facility] (Prevnar7) Branch Pneumococcal 7 2001-04-06 Completed [facility] Conjugate, PCV7 00:00:00 [place] [facility] (Prevnar7) Branch Pneumococcal 7 2001-04-06 Completed [facility] Conjugate, PCV7 00:00:00 [place] [facility] (Prevnar7) [facility] DTAP 2000 Completed [facility] 00:00:00 [facility] HIB 4 Dose Schedule 2000 Completed [facility] 00:00:00 [facility] Hep B, Adol or Pedi 2000 Completed [facility] Dosage 00:00:00 [facility] Hep B, Adol or Pedi 2000 Completed [facility] Dosage 00:00:00 [facility] DTAP 2000 Completed [facility] 00:00:00 [facility] HIB 4 Dose Schedule 2000 Completed [facility] 00:00:00 [facility] Hep B, Adol or Pedi 2000 Completed [facility] of Dosage 00:00:00 [facility] DTAP 2000 Completed [facility] 00:00:00 [facility] HIB 4 Dose Schedule 2000 Completed [facility] of 00:00:00 [facility] Hep B, Adol or Pedi 2000 Completed [facility] of Dosage 00:00:00 [facility] DTAP 2000 Completed [facility] 00:00:00 [facility] HIB 4 Dose Schedule 2000 Completed [facility] of 00:00:00 [facility] Hep B, Adol or Pedi 2000 Completed [facility] of Dosage 00:00:00 [facility] DTAP 2000 Completed [facility] of 00:00:00 [facility] HIB 4 Dose Schedule 2000 Completed [facility]ive [facility] of 00:00:00 [facility] Hep B, Adol or Pedi 2000 Completed [facility] D[facility] 00:00:00 [facility] DTAP 2000 Completed [facility] 00:00:00 [facility] HIB 4 Dose Schedule 2000 Completed [facility] 00:00:00 [facility] Hep B, Adol or Pedi 2000 Completed [facility] Dosage 00:00:00 [facility] DTAP 2000 Completed [facility] 00:00:00 [facility] HIB 4 Dose Schedule 2000 Completed [facility] 00:00:00 [facility] Hep B, Adol or Pedi 2000 Completed [facility] Dosage 00:00:00 [facility] DTAP 2000 Completed [facility] 00:00:00 [facility] HIB 4 Dose Schedule 2000 Completed [facility] 00:00:00 [facility] Hep B, Adol or Pedi 2000 Completed [facility] Dosage 00:00:00 [facility] DTAP 2000 Completed [facility] 00:00:00 [facility] HIB 4 Dose Schedule 2000 Completed [facility] 00:00:00 [facility] Hep B, Adol or Pedi 2000 Completed [facility] Dosage 00:00:00 [facility] DTAP 2000 Completed [facility] 00:00:00 [facility] HIB 4 Dose Schedule 2000 Completed [facility] 00:00:00 [facility] Hep B, Adol or Pedi 2000 Completed [facility] Dosage 00:00:00 [facility] DTAP 2000 Completed [facility] 00:00:00 [facility] DTAP 2000 Completed [facility] 00:00:00 [facility] HIB 4 Dose Schedule 2000 Completed [facility] 00:00:00 [facility] Hep B, Adol or Pedi 2000 Completed [facility] Dos[facility] 00:00:00 [facility] DTAP 2000 Completed [facility] 00:00:00 [facility] HIB 4 Dose Schedule 2000 Completed [facility] 00:00:00 [facility] HIB 4 Dose Schedule 2000 Completed [facility] 00:00:00 [facility] Hep B, Adol or Pedi 2000 Completed [facility] Dosage 00:00:00 [facility] DTAP 2000 Completed [facility] 00:00:00 [facility] HIB 4 Dose Schedule 2000 Completed [facility] 00:00:00 [facility] Hep B, Adol or Pedi 2000 Completed [facility] Dosage 00:00:00 [facility] Hep B, Adol or Pedi 2000 Completed [facility] Dosage 00:00:00 [facility] DTAP 2000 Completed [facility] 00:00:00 [facility] HIB 4 Dose Schedule 2000 Completed [facility] 00:00:00 [facility] Hep B, Adol or Pedi 2000 Completed [facility] D[facility] 00:00:00 [facility] DTAP 2000 Completed [facility] 00:00:00 [facility] HIB 4 Dose Schedule 2000 Completed [facility] 00:00:00 [facility] Hep B, Adol or Pedi 2000 Completed [facility] Dosage 00:00:00 [facility] DTAP 2000 Completed [facility] 00:00:00 [facility] HIB 4 Dose Schedule 2000 Completed [facility] 00:00:00 [facility] Hep B, Adol or Pedi 2000 Completed [facility] Dos[facility] 00:00:00 [facility] DTAP 2000 Completed [facility] 00:00:00 [facility] HIB 4 Dose Schedule 2000 Completed [facility] 00:00:00 [facility] Hep B, Adol or Pedi 2000 Completed [facility] Dos[facility] 00:00:00 [facility] DTAP 2000 Completed [facility] 00:00:00 [facility] HIB 4 Dose Schedule 2000 Completed [facility] 00:00:00 [facility] Hep B, Adol or Pedi 2000 Completed [facility] Dos[facility] 00:00:00 [facility] DTAP 2000 Completed [facility] 00:00:00 [facility] HIB 4 Dose Schedule 2000 Completed [facility] 00:00:00 [facility] Hep B, Adol or Pedi 2000 Completed [facility] Dosage 00:00:00 [facility] DTAP 2000 Completed [facility] 00:00:00 [facility] HIB 4 Dose Schedule 2000 Completed [facility] 00:00:00 [facility] Hep B, Adol or Pedi 2000 Completed [facility] Dosage 00:00:00 [facility] DTAP 2000 Completed [facility] 00:00:00 [facility] HIB 4 Dose Schedule 2000 Completed [facility] 00:00:00 [facility] Hep B, Adol or Pedi 2000 Completed [facility] Dosage 00:00:00 [facility] DTAP 2000 Completed [facility] 00:00:00 [facility] DTAP 2000 Completed [facility] 00:00:00 [facility] HIB 4 Dose Schedule 2000 Completed [facility] 00:00:00 [facility] Hep B, Adol or Pedi 2000 Completed [facility] Dosage 00:00:00 [facility] HIB 4 Dose Schedule 2000 Completed [facility] 00:00:00 [facility] DTAP 2000 Completed [facility] 00:00:00 [facility] HIB 4 Dose Schedule 2000 Completed [facility] 00:00:00 [facility] Hep B, Adol or Pedi 2000 Completed [facility] Dosage 00:00:00 [facility] Hep B, Adol or Pedi 2000 Completed [facility] Dos[facility] 00:00:00 [facility] DTAP 2000 Completed [facility] 00:00:00 [facility] HIB 4 Dose Schedule 2000 Completed [facility] 00:00:00 [facility] Hep B, Adol or Pedi 2000 Completed [facility] Dosage 00:00:00 [facility] DTAP 2000 Completed [facility] 00:00:00 [facility] HIB 4 Dose Schedule 2000 Completed [facility] 00:00:00 [facility] Hep B, Adol or Pedi 2000 Completed [facility] Dosage 00:00:00 [facility] DTAP 2000 Completed [facility] 00:00:00 [facility] HIB 4 Dose Schedule 2000 Completed [facility] 00:00:00 [facility] Hep B, Adol or Pedi 2000 Completed [facility] Dosage 00:00:00 [facility] DTAP 2000 Completed [facility] 00:00:00 [facility] HIB 4 Dose Schedule 2000 Completed [facility] 00:00:00 [facility] Hep B, Adol or Pedi 2000 Completed [facility] Dosage 00:00:00 [facility] DTAP 2000 Completed [facility] 00:00:00 [facility] HIB 4 Dose Schedule 2000 Completed [facility] 00:00:00 [facility] Hep B, Adol or Pedi 2000 Completed [facility] Dosage 00:00:00 [facility] DTAP 2000 Completed [facility] 00:00:00 [facility] HIB 4 Dose Schedule 2000 Completed [facility] 00:00:00 [facility] Hep B, Adol or Pedi 2000 Completed [facility] Dosage 00:00:00 [facility] DTAP 2000 Completed [facility] 00:00:00 [facility] DTAP 2000 Completed [facility] 00:00:00 [facility] HIB 4 Dose Schedule 2000 Completed [facility] 00:00:00 [facility] Hep B, Adol or Pedi 2000 Completed [facility] Dosage 00:00:00 [facility] HIB 4 Dose Schedule 2000 Completed [facility] 00:00:00 [facility] DTAP 2000 Completed [facility] 00:00:00 [facility] HIB 4 Dose Schedule 2000 Completed [facility] 00:00:00 [facility] Hep B, Adol or Pedi 2000 Completed [facility] Dos[facility] 00:00:00 [facility] DTAP 2000 Completed [facility] 00:00:00 [facility] Hep B, Adol or Pedi 2000 Completed [facility] Dosage 00:00:00 [facility] HIB 4 Dose Schedule 2000 Completed [facility] 00:00:00 [facility] Hep B, Adol or Pedi 2000 Completed [facility] Dosage 00:00:00 [facility] DTAP 2000 Completed [facility] 00:00:00 [facility] HIB 4 Dose Schedule 2000 Completed [facility] 00:00:00 [facility] Hep B, Adol or Pedi 2000 Completed [facility] Dosage 00:00:00 [facility] DTAP 2000 Completed [facility] 00:00:00 [facility] HIB 4 Dose Schedule 2000 Completed [facility] 00:00:00 [facility] Hep B, Adol or Pedi 2000 Completed [facility] Dosage 00:00:00 [facility] DTAP 2000 Completed [facility] 00:00:00 [facility] HIB 4 Dose Schedule 2000 Completed [facility] 00:00:00 [facility] Hep B, Adol or Pedi 2000 Completed [facility] Dosage 00:00:00 [facility] DTAP 2000 Completed [facility] 00:00:00 [facility] HIB 4 Dose Schedule 2000 Completed [facility] 00:00:00 [facility] Hep B, Adol or Pedi 2000 Completed [facility] Dos[facility] 00:00:00 [facility] DTAP 2000 Completed [facility] 00:00:00 [facility] HIB 4 Dose Schedule 2000 Completed [facility] 00:00:00 [facility] Hep B, Adol or Pedi 2000 Completed [facility] Dosage 00:00:00 [facility] DTAP 2000 Completed [facility] 00:00:00 [facility] HIB 4 Dose Schedule 2000 Completed [facility] 00:00:00 [facility] Hep B, Adol or Pedi 2000 Completed [facility] Dosage 00:00:00 [facility] DTAP 2000 Completed [facility] 00:00:00 [facility] DTAP 2000 Completed [facility] 00:00:00 [facility] HIB 4 Dose Schedule 2000 Completed [facility] 00:00:00 [facility] Hep B, Adol or Pedi 2000 Completed [facility] Dosage 00:00:00 [facility] HIB 4 Dose Schedule 2000 Completed [facility] 00:00:00 [facility] DTAP 2000 Completed [facility] 00:00:00 [facility] HIB 4 Dose Schedule 2000 Completed [facility] 00:00:00 [facility] Hep B, Adol or Pedi 2000 Completed [facility] Dosage 00:00:00 [facility] Hep B, Adol or Pedi 2000 Completed [facility] Dos[facility] 00:00:00 [facility] DTAP 2000 Completed [facility] 00:00:00 [facility] HIB 4 Dose Schedule 2000 Completed [facility] 00:00:00 [facility] Hep B, Adol or Pedi 2000 Completed [facility] Dosage 00:00:00 [facility] DTAP 2000 Completed [facility] 00:00:00 [facility] HIB 4 Dose Schedule 2000 Completed [facility] 00:00:00 [facility] Hep B, Adol or Pedi 2000 Completed [facility] Dos[facility] 00:00:00 [facility] DTAP 2000 Completed [facility] 00:00:00 [facility] HIB 4 Dose Schedule 2000 Completed [facility] 00:00:00 [facility] Hep B, Adol or Pedi 2000 Completed [facility] Dosage 00:00:00 [facility] DTAP 2000 Completed [facility] 00:00:00 [facility] HIB 4 Dose Schedule 2000 Completed [facility] 00:00:00 [facility] Hep B, Adol or Pedi 2000 Completed [facility] Dosage 00:00:00 [facility] DTAP 2000 Completed [facility] 00:00:00 [facility] HIB 4 Dose Schedule 2000 Completed [facility] 00:00:00 [facility] Hep B, Adol or Pedi 2000 Completed [facility] Dosage 00:00:00 [facility] DTAP 2000 Completed [facility] 00:00:00 [facility] HIB 4 Dose Schedule 2000 Completed [facility] 00:00:00 [facility] Hep B, Adol or Pedi 2000 Completed [facility] Dosage 00:00:00 [facility] DTAP 2000 Completed [facility] 00:00:00 [facility] HIB 4 Dose Schedule 2000 Completed [facility] 00:00:00 [facility] DTAP 2000 Completed [facility] 00:00:00 [facility] HIB 4 Dose Schedule 2000 Completed [facility] 00:00:00 [facility] Hep B, Adol or Pedi 2000 Completed [facility] Dosage 00:00:00 [facility] Hep B, Adol or Pedi 2000 Completed [facility] Dosage 00:00:00 [facility] DTAP 2000 Completed [facility] 00:00:00 [facility] HIB 4 Dose Schedule 2000 Completed [facility] 00:00:00 [facility] Hep B, Adol or Pedi 2000 Completed [facility] Dosage 00:00:00 [facility] DTAP 2000 Completed [facility] 00:00:00 [facility] HIB 4 Dose Schedule 2000 Completed [facility] 00:00:00 [facility] Hep B, Adol or Pedi 2000 Completed [facility] Dosage 00:00:00 [facility] DTAP 2000 Completed [facility] 00:00:00 [facility] HIB 4 Dose Schedule 2000 Completed [facility] 00:00:00 [facility] Hep B, Adol or Pedi 2000 Completed [facility] Dosage 00:00:00 [facility] DTAP 2000 Completed [facility] 00:00:00 [facility] HIB 4 Dose Schedule 2000 Completed [facility] 00:00:00 [facility] Hep B, Adol or Pedi 2000 Completed [facility] Dosage 00:00:00 [facility] DTAP 2000 Completed [facility] 00:00:00 [facility] HIB 4 Dose Schedule 2000 Completed [facility] 00:00:00 [facility] Hep B, Adol or Pedi 2000 Completed [facility] Dosage 00:00:00 [facility] DTAP 2000 Completed [facility] 00:00:00 [facility] HIB 4 Dose Schedule 2000 Completed [facility] 00:00:00 [facility] Hep B, Adol or Pedi 2000 Completed [facility] Dosage 00:00:00 [facility] DTAP 2000 Completed [facility] 00:00:00 [facility] HIB 4 Dose Schedule 2000 Completed [facility] 00:00:00 [facility] DTAP 2000 Completed [facility] 00:00:00 [facility] Hep B, Adol or Pedi 2000 Completed [facility] Dosage 00:00:00 [facility] DTAP 2000 Completed [facility] 00:00:00 [facility] HIB 4 Dose Schedule 2000 Completed [facility] 00:00:00 [facility] Hep B, Adol or Pedi 2000 Completed [facility] Dosage 00:00:00 [facility] HIB 4 Dose Schedule 2000 Completed [facility] 00:00:00 [facility] DTAP 2000 Completed [facility] 00:00:00 [facility] HIB 4 Dose Schedule 2000 Completed [facility] 00:00:00 [facility] Hep B, Adol or Pedi 2000 Completed [facility] Dosage 00:00:00 [facility] Hep B, Adol or Pedi 2000 Completed [facility] Dosage 00:00:00 [facility] DTAP 2000 Completed [facility] 00:00:00 [facility] HIB 4 Dose Schedule 2000 Completed [facility] 00:00:00 [facility] Hep B, Adol or Pedi 2000 Completed [facility] Dosage 00:00:00 [facility] DTAP 2000 Completed [facility] 00:00:00 [facility] HIB 4 Dose Schedule 2000 Completed [facility] 00:00:00 [facility] Hep B, Adol or Pedi 2000 Completed [facility] Dosage 00:00:00 [facility] DTAP 2000 Completed [facility] 00:00:00 [facility] HIB 4 Dose Schedule 2000 Completed [facility] 00:00:00 [facility] Hep B, Adol or Pedi 2000 Completed [facility] Dosage 00:00:00 [facility] DTAP 2000 Completed [facility] 00:00:00 [facility] HIB 4 Dose Schedule 2000 Completed [facility] 00:00:00 [facility] Hep B, Adol or Pedi 2000 Completed [facility] Dos[facility] 00:00:00 [facility] DTAP 2000 Completed [facility] 00:00:00 [facility] HIB 4 Dose Schedule 2000 Completed [facility] 00:00:00 [facility] Hep B, Adol or Pedi 2000 Completed [facility] Dosage 00:00:00 [facility] DTAP 2000 Completed [facility] 00:00:00 [facility] HIB 4 Dose Schedule 2000 Completed [facility] 00:00:00 [facility] Hep B, Adol or Pedi 2000 Completed [facility] Dosage 00:00:00 [facility] DTAP 2000 Completed [facility] 00:00:00 [facility] HIB 4 Dose Schedule 2000 Completed [facility] 00:00:00 [facility] Hep B, Adol or Pedi 2000 Completed [facility] Dosage 00:00:00 [facility] DTAP 2000 Completed [facility] 00:00:00 [facility] DTAP 2000 Completed [facility] 00:00:00 [facility] HIB 4 Dose Schedule 2000 Completed [facility] 00:00:00 [facility] Hep B, Adol or Pedi 2000 Completed [facility] Dosage 00:00:00 [facility] HIB 4 Dose Schedule 2000 Completed [facility] 00:00:00 [facility] DTAP 2000 Completed [facility] 00:00:00 [facility] HIB 4 Dose Schedule 2000 Completed [facility] 00:00:00 [facility] Hep B, Adol or Pedi 2000 Completed [facility] Dosage 00:00:00 [facility] Hep B, Adol or Pedi 2000 Completed [facility] Dosage 00:00:00 [facility] DTAP 2000 Completed [facility] 00:00:00 [facility] HIB 4 Dose Schedule 2000 Completed [facility] 00:00:00 [facility] Hep B, Adol or Pedi 2000 Completed [facility] Dosage 00:00:00 [facility] DTAP 2000 Completed [facility] 00:00:00 [facility] HIB 4 Dose Schedule 2000 Completed [facility] 00:00:00 [facility] Hep B, Adol or Pedi 2000 Completed [facility] Dosage 00:00:00 [facility] DTAP 2000 Completed [facility] 00:00:00 [facility] HIB 4 Dose Schedule 2000 Completed [facility] 00:00:00 [facility] Hep B, Adol or Pedi 2000 Completed [facility] Dosage 00:00:00 [facility] DTAP 2000 Completed [facility] 00:00:00 [facility] HIB 4 Dose Schedule 2000 Completed [facility] 00:00:00 [facility] Hep B, Adol or Pedi 2000 Completed [facility] Dosage 00:00:00 [facility] DTAP 2000 Completed [facility] 00:00:00 [facility] HIB 4 Dose Schedule 2000 Completed [facility] 00:00:00 [facility] Hep B, Adol or Pedi 2000 Completed [facility] Dosage 00:00:00 [facility] DTAP 2000 Completed [facility] 00:00:00 [facility] HIB 4 Dose Schedule 2000 Completed [facility] 00:00:00 [facility] Hep B, Adol or Pedi 2000 Completed [facility] Dosage 00:00:00 [facility] DTAP 2000 Completed [facility] 00:00:00 [facility] DTAP 2000 Completed [facility] 00:00:00 [facility] HIB 4 Dose Schedule 2000 Completed [facility] 00:00:00 [facility] Hep B, Adol or Pedi 2000 Completed [facility] Dosage 00:00:00 [facility] HIB 4 Dose Schedule 2000 Completed [facility] 00:00:00 [facility] DTAP 2000 Completed [facility] 00:00:00 [facility] HIB 4 Dose Schedule 2000 Completed [facility] 00:00:00 [facility] Hep B, Adol or Pedi 2000 Completed [facility] Dosage 00:00:00 [facility] Hep B, Adol or Pedi 2000 Completed [facility] Dosage 00:00:00 [facility] DTAP 2000 Completed [facility] 00:00:00 [facility] HIB 4 Dose Schedule 2000 Completed [facility] 00:00:00 [facility] Hep B, Adol or Pedi 2000 Completed [facility] Dosage 00:00:00 [facility] DTAP 2000 Completed [facility] 00:00:00 [facility] HIB 4 Dose Schedule 2000 Completed [facility] 00:00:00 [facility] Hep B, Adol or Pedi 2000 Completed [facility] Dosage 00:00:00 [facility] DTAP 2000 Completed [facility] 00:00:00 [facility] HIB 4 Dose Schedule 2000 Completed [facility] 00:00:00 [facility] Hep B, Adol or Pedi 2000 Completed [facility] Dosage 00:00:00 [facility] DTAP 2000 Completed [facility] 00:00:00 [facility] HIB 4 Dose Schedule 2000 Completed [facility] 00:00:00 [facility] Hep B, Adol or Pedi 2000 Completed [facility] Dosage 00:00:00 [facility] DTAP 2000 Completed [facility] 00:00:00 [facility] HIB 4 Dose Schedule 2000 Completed [facility] 00:00:00 [facility] Hep B, Adol or Pedi 2000 Completed [facility] Dosage 00:00:00 [facility] DTAP 2000 Completed [facility] 00:00:00 [facility] HIB 4 Dose Schedule 2000 Completed [facility] 00:00:00 [facility] Hep B, Adol or Pedi 2000 Completed [facility] Dosage 00:00:00 [facility] DTAP 2000 Completed [facility] 00:00:00 [facility] DTAP 2000 Completed [facility] 00:00:00 [facility] HIB 4 Dose Schedule 2000 Completed [facility] 00:00:00 [facility] Hep B, Adol or Pedi 2000 Completed [facility] Dosage 00:00:00 [facility] DTAP 2000 Completed [facility] 00:00:00 [facility] HIB 4 Dose Schedule 2000 Completed [facility] 00:00:00 [facility] HIB 4 Dose Schedule 2000 Completed [facility] 00:00:00 [facility] Hep B, Adol or Pedi 2000 Completed [facility] Dosage 00:00:00 [facility] DTAP 2000 Completed [facility] 00:00:00 [facility] HIB 4 Dose Schedule 2000 Completed [facility] 00:00:00 [facility] Hep B, Adol or Pedi 2000 Completed [facility] Dosage 00:00:00 [facility] Hep B, Adol or Pedi 2000 Completed [facility] Dos[facility] 00:00:00 [facility] DTAP 2000 Completed [facility] 00:00:00 [facility] HIB 4 Dose Schedule 2000 Completed [facility] 00:00:00 [facility] Hep B, Adol or Pedi 2000 Completed [facility] Dosage 00:00:00 [facility] DTAP 2000 Completed [facility] 00:00:00 [facility] HIB 4 Dose Schedule 2000 Completed [facility] 00:00:00 [facility] DTAP 2000 Completed [facility] 00:00:00 [facility] Hep B, Adol or Pedi 2000 Completed [facility] Dosage 00:00:00 [facility] DTAP 2000 Completed [facility] 00:00:00 [facility] HIB 4 Dose Schedule 2000 Completed [facility] 00:00:00 [facility] Hep B, Adol or Pedi 2000 Completed [facility] Dosage 00:00:00 [facility] DTAP 2000 Completed [facility] 00:00:00 [facility] HIB 4 Dose Schedule 2000 Completed [facility] 00:00:00 [facility] Hep B, Adol or Pedi 2000 Completed [facility] Dosage 00:00:00 [facility] DTAP 2000 Completed [facility] 00:00:00 [facility] HIB 4 Dose Schedule 2000 Completed [facility] 00:00:00 [facility] Hep B, Adol or Pedi 2000 Completed [facility] Dosage 00:00:00 [facility] DTAP 2000 Completed [facility] 00:00:00 [facility] HIB 4 Dose Schedule 2000 Completed [facility] 00:00:00 [facility] Hep B, Adol or Pedi 2000 Completed [facility] Dosage 00:00:00 [facility] DTAP 2000 Completed [facility] 00:00:00 [facility] DTAP 2000 Completed [facility] 00:00:00 [facility] HIB 4 Dose Schedule 2000 Completed [facility] 00:00:00 [facility] Hep B, Adol or Pedi 2000 Completed [facility] Dosage 00:00:00 [facility] HIB 4 Dose Schedule 2000 Completed [facility] 00:00:00 [facility] DTAP 2000 Completed [facility] 00:00:00 [facility] HIB 4 Dose Schedule 2000 Completed [facility] 00:00:00 [facility] Hep B, Adol or Pedi 2000 Completed [facility] Dosage 00:00:00 [facility] Hep B, Adol or Pedi 2000 Completed [facility] Dosage 00:00:00 [facility] DTAP 2000 Completed [facility] 00:00:00 [facility] HIB 4 Dose Schedule 2000 Completed [facility] 00:00:00 [facility] Hep B, Adol or Pedi 2000 Completed [facility] Dosage 00:00:00 [facility] DTAP 2000 Completed [facility] of 00:00:00 [facility] HIB 4 Dose Schedule 2000 Completed [facility] 00:00:00 [facility] Hep B, Adol or Pedi 2000 Completed [facility] Dosage 00:00:00 [facility] DTAP 2000 Completed [facility] 00:00:00 [facility] HIB 4 Dose Schedule 2000 Completed [facility] 00:00:00 [facility] Hep B, Adol or Pedi 2000 Completed [facility] Dosage 00:00:00 [facility] HIB 4 Dose Schedule 2000 Completed [facility] 00:00:00 [facility] DTAP 2000 Completed [facility] 00:00:00 [facility] HIB 4 Dose Schedule 2000 Completed [facility] 00:00:00 [facility] Hep B, Adol or Pedi 2000 Completed [facility] Dosage 00:00:00 [facility] DTAP 2000 Completed [facility] 00:00:00 [facility] HIB 4 Dose Schedule 2000 Completed [facility] 00:00:00 [facility] Hep B, Adol or Pedi 2000 Completed [facility] Dosage 00:00:00 [facility] DTAP 2000 Completed [facility] 00:00:00 [facility] DTAP 2000 Completed [facility] 00:00:00 [facility] HIB 4 Dose Schedule 2000 Completed [facility] 00:00:00 [facility] Hep B, Adol or Pedi 2000 Completed [facility] Dosage 00:00:00 [facility] DTAP 2000 Completed [facility] 00:00:00 [facility] HIB 4 Dose Schedule 2000 Completed [facility] 00:00:00 [facility] HIB 4 Dose Schedule 2000 Completed [facility] 00:00:00 [facility] Hep B, Adol or Pedi 2000 Completed [facility] Dosage 00:00:00 [facility] DTAP 2000 Completed [facility] 00:00:00 [facility] HIB 4 Dose Schedule 2000 Completed [facility] 00:00:00 [facility] Hep B, Adol or Pedi 2000 Completed [facility] Dosage 00:00:00 [facility] Hep B, Adol or Pedi 2000 Completed [facility] Dosage 00:00:00 [facility] DTAP 2000 Completed [facility] 00:00:00 [facility] HIB 4 Dose Schedule 2000 Completed [facility] 00:00:00 [facility] Hep B, Adol or Pedi 2000 Completed [facility] Dosage 00:00:00 [facility] DTAP 2000 Completed [facility] 00:00:00 [facility] HIB 4 Dose Schedule 2000 Completed [facility] 00:00:00 [facility] Hep B, Adol or Pedi 2000 Completed [facility] Dosage 00:00:00 [facility] DTAP 2000 Completed [facility] 00:00:00 [facility] HIB 4 Dose Schedule 2000 Completed [facility] 00:00:00 [facility] Hep B, Adol or Pedi 2000 Completed [facility] Dosage 00:00:00 [facility] DTAP 2000 Completed [facility] 00:00:00 [facility] HIB 4 Dose Schedule 2000 Completed [facility] 00:00:00 [facility] Hep B, Adol or Pedi 2000 Completed [facility] Dosage 00:00:00 [facility] DTAP 2000 Completed [facility] 00:00:00 [facility] HIB 4 Dose Schedule 2000 Completed [facility] 00:00:00 [facility] Hep B, Adol or Pedi 2000 Completed [facility] Dosage 00:00:00 [facility] DTAP 2000 Completed [facility] 00:00:00 [facility] HIB 4 Dose Schedule 2000 Completed [facility] 00:00:00 [facility] Hep B, Adol or Pedi 2000 Completed [facility] Dosage 00:00:00 [facility] DTAP 2000 Completed [facility] 00:00:00 [facility] HIB 4 Dose Schedule 2000 Completed [facility] 00:00:00 [facility] Hep B, Adol or Pedi 2000 Completed [facility] Dosage 00:00:00 [facility] Hep B, Adol or Pedi 2000 Completed [facility] Dosage 00:00:00 [facility] DTAP 2000 Completed [facility] 00:00:00 [facility] HIB 4 Dose Schedule 2000 Completed [facility] 00:00:00 [facility] Hep B, Adol or Pedi 2000 Completed [facility] Dosage 00:00:00 [facility] DTAP 2000 Completed [facility] 00:00:00 [facility] HIB 4 Dose Schedule 2000 Completed [facility] 00:00:00 [facility] Hep B, Adol or Pedi 2000 Completed [facility] Dosage 00:00:00 [facility] DTAP 2000 Completed [facility] 00:00:00 [facility] HIB 4 Dose Schedule 2000 Completed [facility] 00:00:00 [facility] Hep B, Adol or Pedi 2000 Completed [facility] Dosage 00:00:00 [facility] DTAP 2000 Completed [facility] 00:00:00 [facility] HIB 4 Dose Schedule 2000 Completed [facility] 00:00:00 [facility] Hep B, Adol or Pedi 2000 Completed [facility] Dosage 00:00:00 [facility] DTAP 2000 Completed [facility] 00:00:00 [facility] HIB 4 Dose Schedule 2000 Completed [facility] 00:00:00 [facility] Hep B, Adol or Pedi 2000 Completed [facility] Dosage 00:00:00 [facility] DTAP 2000 Completed [facility] 00:00:00 [facility] HIB 4 Dose Schedule 2000 Completed [facility] 00:00:00 [facility] Hep B, Adol or Pedi 2000 Completed [facility] Dosage 00:00:00 [facility] DTAP 2000 Completed [facility] 00:00:00 [facility] HIB 4 Dose Schedule 2000 Completed [facility] 00:00:00 [facility] Hep B, Adol or Pedi 2000 Completed [facility] Dosage 00:00:00 [facility] DTAP 2000 Completed [facility] 00:00:00 [facility] HIB 4 Dose Schedule 2000 Completed [facility] 00:00:00 [facility] Hep B, Adol or Pedi 2000 Completed [facility] Dosage 00:00:00 [facility] DTAP 2000 Completed [facility] 00:00:00 [facility] HIB 4 Dose Schedule 2000 Completed [facility] 00:00:00 [facility] DTAP 2000 Completed [facility] 00:00:00 [facility] Hep B, Adol or Pedi 2000 Completed [facility] Dosage 00:00:00 [facility] DTAP 2000 Completed [facility] 00:00:00 [facility] HIB 4 Dose Schedule 2000 Completed [facility] 00:00:00 [facility] HIB 4 Dose Schedule 2000 Completed [facility] 00:00:00 [facility] Hep B, Adol or Pedi 2000 Completed [facility] Dosage 00:00:00 [facility] Polio (IPV/OPV) 2000 Completed [facility] 00:00:00 [facility] DTAP 2000 Completed [facility] 00:00:00 [facility] HIB 4 Dose Schedule 2000 Completed [facility] 00:00:00 [facility] Polio (IPV/OPV) 2000 Completed [facility] 00:00:00 [facility] DTAP 2000 Completed [facility] 00:00:00 [facility] HIB 4 Dose Schedule 2000 Completed [facility] 00:00:00 [facility] Polio (IPV/OPV) 2000 Completed [facility] 00:00:00 [facility] DTAP 2000 Completed [facility] 00:00:00 [facility] HIB 4 Dose Schedule 2000 Completed [facility] 00:00:00 [facility] Polio (IPV/OPV) 2000 Completed [facility] 00:00:00 [facility] Polio (IPV/OPV) 2000 Completed [facility] 00:00:00 [facility] DTAP 2000 Completed [facility] 00:00:00 [facility] HIB 4 Dose Schedule 2000 Completed [facility] 00:00:00 [facility] Polio (IPV/OPV) 2000 Completed [facility] 00:00:00 [facility] DTAP 2000 Completed [facility] 00:00:00 [facility] HIB 4 Dose Schedule 2000 Completed [facility] 00:00:00 [facility] Polio (IPV/OPV) 2000 Completed [facility] 00:00:00 [facility] DTAP 2000 Completed [facility] 00:00:00 [facility] HIB 4 Dose Schedule 2000 Completed [facility] 00:00:00 [facility] Polio (IPV/OPV) 2000 Completed [facility] 00:00:00 [facility] DTAP 2000 Completed [facility] 00:00:00 [facility] HIB 4 Dose Schedule 2000 Completed [facility] 00:00:00 [facility] Polio (IPV/OPV) 2000 Completed [facility] 00:00:00 [facility] DTAP 2000 Completed [facility] 00:00:00 [facility] HIB 4 Dose Schedule 2000 Completed [facility] 00:00:00 [facility] Polio (IPV/OPV) 2000 Completed [facility] 00:00:00 [facility] DTAP 2000 Completed [facility] 00:00:00 [facility] HIB 4 Dose Schedule 2000 Completed [facility] 00:00:00 [facility] Polio (IPV/OPV) 2000 Completed [facility] 00:00:00 [facility] DTAP 2000 Completed [facility] 00:00:00 [facility] HIB 4 Dose Schedule 2000 Completed [facility] 00:00:00 [facility] Polio (IPV/OPV) 2000 Completed [facility] 00:00:00 [facility] DTAP 2000 Completed [facility] 00:00:00 [facility] DTAP 2000 Completed [facility] 00:00:00 [facility] HIB 4 Dose Schedule 2000 Completed [facility] 00:00:00 [facility] Polio (IPV/OPV) 2000 Completed [facility] 00:00:00 [facility] HIB 4 Dose Schedule 2000 Completed [facility] 00:00:00 [facility] DTAP 2000 Completed [facility] 00:00:00 [facility] HIB 4 Dose Schedule 2000 Completed [facility] 00:00:00 [facility] Polio (IPV/OPV) 2000 Completed [facility] 00[facility]00:00 [facility] DTAP 2000 Completed [facility] 00:00:00 [facility] HIB 4 Dose Schedule 2000 Completed [facility] 00:00:00 [facility] Polio (IPV/OPV) 2000 Completed [facility] 00:00:00 [facility] DTAP 2000 Completed [facility] 00:00:00 [facility] HIB 4 Dose Schedule 2000 Completed [facility] 00:00:00 [facility] Polio (IPV/OPV) 2000 Completed [facility] 00:00:00 [facility] DTAP 2000 Completed [facility] 00:00:00 [facility] HIB 4 Dose Schedule 2000 Completed [facility] 00:00:00 [facility] Polio (IPV/OPV) 2000 Completed [facility] 00:00:00 [facility] Polio (IPV/OPV) 2000 Completed [facility] 00:00:00 [facility] DTAP 2000 Completed [facility] 00:00:00 [facility] HIB 4 Dose Schedule 2000 Completed [facility] 00:00:00 [facility] Polio (IPV/OPV) 2000 Completed [facility] 00:00:00 [facility] DTAP 2000 Completed [facility] 00:00:00 [facility] HIB 4 Dose Schedule 2000 Completed [facility] 00:00:00 [facility] Polio (IPV/OPV) 2000 Completed [facility] 00:00:00 [facility] DTAP 2000 Completed [facility] 00:00:00 [facility] HIB 4 Dose Schedule 2000 Completed [facility] 00:00:00 [facility] Polio (IPV/OPV) 2000 Completed [facility] 00:00:00 [facility] DTAP 2000 Completed [facility] 00:00:00 [facility] HIB 4 Dose Schedule 2000 Completed [facility] 00:00:00 [facility] Polio (IPV/OPV) 2000 Completed [facility] 00:00:00 [facility] DTAP 2000 Completed [facility] 00[facility]00:00 [facility] HIB 4 Dose Schedule 2000 Completed [facility] 00:00:00 [facility] Polio (IPV/OPV) 2000 Completed [facility] 00:00:00 [facility] DTAP 2000 Completed [facility] 00:00:00 [facility] HIB 4 Dose Schedule 2000 Completed [facility] 00:00:00 [facility] DTAP 2000 Completed [facility] 00:00:00 [facility] Polio (IPV/OPV) 2000 Completed [facility] 00:00:00 [facility] DTAP 2000 Completed [facility] 00:00:00 [facility] HIB 4 Dose Schedule 2000 Completed [facility] 00:00:00 [facility] HIB 4 Dose Schedule 2000 Completed [facility] 00:00:00 [facility] Polio (IPV/OPV) 2000 Completed [facility] 00:00:00 [facility] DTAP 2000 Completed [facility] 00:00:00 [facility] HIB 4 Dose Schedule 2000 Completed [facility] 00:00:00 [facility] Polio (IPV/OPV) 2000 Completed [facility] 00:00:00 [facility] DTAP 2000 Completed [facility] 00:00:00 [facility] HIB 4 Dose Schedule 2000 Completed [facility] 00:00:00 [facility] Polio (IPV/OPV) 2000 Completed [facility] 00:00:00 [facility] DTAP 2000 Completed [facility] 00:00:00 [facility] HIB 4 Dose Schedule 2000 Completed [facility] 00:00:00 [facility] Polio (IPV/OPV) 2000 Completed [facility] 00:00:00 [facility] Polio (IPV/OPV) 2000 Completed [facility] 00:00:00 [facility] DTAP 2000 Completed [facility] 00[facility]00:00 [facility] HIB 4 Dose Schedule 2000 Completed [facility] 00:00:00 [facility] Polio (IPV/OPV) 2000 Completed [facility] 00:00:00 [facility] DTAP 2000 Completed [facility] 00:00:00 [facility] HIB 4 Dose Schedule 2000 Completed [facility] 00:00:00 [facility] Polio (IPV/OPV) 2000 Completed [facility] 00:00:00 [facility] DTAP 2000 Completed [facility] 00:00:00 [facility] HIB 4 Dose Schedule 2000 Completed [facility] 00:00:00 [facility] Polio (IPV/OPV) 2000 Completed [facility] 00:00:00 [facility] DTAP 2000 Completed [facility] 00:00:00 [facility] HIB 4 Dose Schedule 2000 Completed [facility] 00:00:00 [facility] DTAP 2000 Completed [facility] 00:00:00 [facility] Polio (IPV/OPV) 2000 Completed [facility] 00:00:00 [facility] DTAP 2000 Completed [facility] 00:00:00 [facility] HIB 4 Dose Schedule 2000 Completed [facility] 00:00:00 [facility] HIB 4 Dose Schedule 2000 Completed [facility] 00[facility]00:00 [facility] Polio (IPV/OPV) 2000 Completed [facility] 00:00:00 [facility] DTAP 2000 Completed [facility] 00:00:00 [facility] HIB 4 Dose Schedule 2000 Completed [facility] 00:00:00 [facility] Polio (IPV/OPV) 2000 Completed [facility] 00:00:00 [facility] DTAP 2000 Completed [facility] 00:00:00 [facility] HIB 4 Dose Schedule 2000 Completed [facility] 00:00:00 [facility] Polio (IPV/OPV) 2000 Completed [facility] 00:00:00 [facility] DTAP 2000 Completed [facility] 00:00:00 [facility] HIB 4 Dose Schedule 2000 Completed [facility] 00:00:00 [facility] Polio (IPV/OPV) 2000 Completed [facility] 00:00:00 [facility] Polio (IPV/OPV) 2000 Completed [facility] 00:00:00 [facility] DTAP 2000 Completed [facility] 00:00:00 [facility] HIB 4 Dose Schedule 2000 Completed [facility] 00:00:00 [facility] Polio (IPV/OPV) 2000 Completed [facility] 00:00:00 [facility] DTAP 2000 Completed [facility] 00:00:00 [facility] HIB 4 Dose Schedule 2000 Completed [facility] 00:00:00 [facility] Polio (IPV/OPV) 2000 Completed [facility] 00:00:00 [facility] DTAP 2000 Completed [facility] 00:00:00 [facility] HIB 4 Dose Schedule 2000 Completed [facility] 00:00:00 [facility] Polio (IPV/OPV) 2000 Completed [facility] 00:00:00 [facility] DTAP 2000 Completed [facility] 00:00:00 [facility] HIB 4 Dose Schedule 2000 Completed [facility] 00:00:00 [facility] Polio (IPV/OPV) 2000 Completed [facility] 00:00:00 [facility] DTAP 2000 Completed [facility] 00:00:00 [facility] DTAP 2000 Completed [facility] 00:00:00 [facility] HIB 4 Dose Schedule 2000 Completed [facility] 00:00:00 [facility] Polio (IPV/OPV) 2000 Completed [facility] 00:00:00 [facility] DTAP 2000 Completed [facility] 00:00:00 [facility] HIB 4 Dose Schedule 2000 Completed [facility] 00:00:00 [facility] HIB 4 Dose Schedule 2000 Completed [facility] 00:00:00 [facility] Polio (IPV/OPV) 2000 Completed [facility] 00:00:00 [facility] DTAP 2000 Completed [facility] 00:00:00 [facility] HIB 4 Dose Schedule 2000 Completed [facility] 00:00:00 [facility] Polio (IPV/OPV) 2000 Completed [facility] 00:00:00 [facility] DTAP 2000 Completed [facility] 00:00:00 [facility] HIB 4 Dose Schedule 2000 Completed [facility] 00:00:00 [facility] Polio (IPV/OPV) 2000 Completed [facility] 00:00:00 [facility] DTAP 2000 Completed [facility] 00:00:00 [facility] HIB 4 Dose Schedule 2000 Completed [facility] 00:00:00 [facility] Polio (IPV/OPV) 2000 Completed [facility] 00:00:00 [facility] Polio (IPV/OPV) 2000 Completed [facility] 00:00:00 [facility] DTAP 2000 Completed [facility] 00:00:00 [facility] HIB 4 Dose Schedule 2000 Completed [facility] 00:00:00 [facility] Polio (IPV/OPV) 2000 Completed [facility] 00:00:00 [facility] DTAP 2000 Completed [facility] 00:00:00 [facility] HIB 4 Dose Schedule 2000 Completed [facility] 00:00:00 [facility] Polio (IPV/OPV) 2000 Completed [facility] 00:00:00 [facility] DTAP 2000 Completed [facility] 00[facility]00:00 [facility] HIB 4 Dose Schedule 2000 Completed [facility] 00:00:00 [facility] Polio (IPV/OPV) 2000 Completed [facility] 00:00:00 [facility] DTAP 2000 Completed [facility] 00:00:00 [facility] HIB 4 Dose Schedule 2000 Completed [facility] 00:00:00 [facility] Polio (IPV/OPV) 2000 Completed [facility] 00:00:00 [facility] DTAP 2000 Completed [facility] 00:00:00 [facility] HIB 4 Dose Schedule 2000 Completed [facility] 00:00:00 [facility] DTAP 2000 Completed [facility] 00:00:00 [facility] HIB 4 Dose Schedule 2000 Completed [facility] 00:00:00 [facility] Polio (IPV/OPV) 2000 Completed [facility] 00:00:00 [facility] DTAP 2000 Completed [facility] 00[facility]00:00 [facility] HIB 4 Dose Schedule 2000 Completed [facility] 00:00:00 [facility] Polio (IPV/OPV) 2000 Completed [facility] 00:00:00 [facility] DTAP 2000 Completed [facility] 00:00:00 [facility] HIB 4 Dose Schedule 2000 Completed [facility] 00:00:00 [facility] Polio (IPV/OPV) 2000 Completed [facility] 00:00:00 [facility] Polio (IPV/OPV) 2000 Completed [facility] 00:00:00 [facility] DTAP 2000 Completed [facility] 00[facility]00:00 [facility] HIB 4 Dose Schedule 2000 Completed [facility] 00:00:00 [facility] Polio (IPV/OPV) 2000 Completed [facility] 00:00:00 [facility] DTAP 2000 Completed [facility] 00:00:00 [facility] HIB 4 Dose Schedule 2000 Completed [facility] 00:00:00 [facility] Polio (IPV/OPV) 2000 Completed [facility] 00:00:00 [facility] DTAP 2000 Completed [facility] 00:00:00 [facility] HIB 4 Dose Schedule 2000 Completed [facility] 00:00:00 [facility] Polio (IPV/OPV) 2000 Completed [facility] 00:00:00 [facility] DTAP 2000 Completed [facility] 00:00:00 [facility] HIB 4 Dose Schedule 2000 Completed [facility] 00:00:00 [facility] Polio (IPV/OPV) 2000 Completed [facility] 00:00:00 [facility] DTAP 2000 Completed [facility] 00:00:00 [facility] DTAP 2000 Completed [facility] 00:00:00 [facility] HIB 4 Dose Schedule 2000 Completed [facility] 00:00:00 [facility] Polio (IPV/OPV) 2000 Completed [facility] 00:00:00 [facility] DTAP 2000 Completed [facility] 00[facility]00:00 [facility] HIB 4 Dose Schedule 2000 Completed [facility] 00:00:00 [facility] HIB 4 Dose Schedule 2000 Completed [facility] 00:00:00 [facility] Polio (IPV/OPV) 2000 Completed [facility] 00:00:00 [facility] DTAP 2000 Completed [facility] 00[facility]00:00 [facility] HIB 4 Dose Schedule 2000 Completed [facility] 00:00:00 [facility] Polio (IPV/OPV) 2000 Completed [facility] 00:00:00 [facility] DTAP 2000 Completed [facility] 00[facility]00:00 [facility] HIB 4 Dose Schedule 2000 Completed [facility] 00:00:00 [facility] Polio (IPV/OPV) 2000 Completed [facility] 00:00:00 [facility] DTAP 2000 Completed [facility] 00:00:00 [facility] HIB 4 Dose Schedule 2000 Completed [facility] 00:00:00 [facility] Polio (IPV/OPV) 2000 Completed [facility] 00:00:00 [facility] Polio (IPV/OPV) 2000 Completed [facility] 00:00:00 [facility] DTAP 2000 Completed [facility] 00:00:00 [facility] HIB 4 Dose Schedule 2000 Completed [facility] 00:00:00 [facility] Polio (IPV/OPV) 2000 Completed [facility] 00:00:00 [facility] DTAP 2000 Completed [facility] 00:00:00 [facility] HIB 4 Dose Schedule 2000 Completed [facility] 00:00:00 [facility] Polio (IPV/OPV) 2000 Completed [facility] 00:00:00 [facility] DTAP 2000 Completed [facility] 00:00:00 [facility] HIB 4 Dose Schedule 2000 Completed [facility] 00:00:00 [facility] Polio (IPV/OPV) 2000 Completed [facility] 00:00:00 [facility] DTAP 2000 Completed [facility] 00:00:00 [facility] HIB 4 Dose Schedule 2000 Completed [facility] 00:00:00 [facility] Polio (IPV/OPV) 2000 Completed [facility] 00:00:00 [facility] DTAP 2000 Completed [facility] 00:00:00 [facility] HIB 4 Dose Schedule 2000 Completed [facility] 00:00:00 [facility] Polio (IPV/OPV) 2000 Completed [facility] 00:00:00 [facility] DTAP 2000 Completed [facility] 00:00:00 [facility] DTAP 2000 Completed [facility] 00:00:00 [facility] HIB 4 Dose Schedule 2000 Completed [facility] 00:00:00 [facility] Polio (IPV/OPV) 2000 Completed [facility] 00:00:00 [facility] HIB 4 Dose Schedule 2000 Completed [facility] 00:00:00 [facility] DTAP 2000 Completed [facility] 00:00:00 [facility] HIB 4 Dose Schedule 2000 Completed [facility] 00:00:00 [facility] Polio (IPV/OPV) 2000 Completed [facility] 00[facility]00:00 [facility] DTAP 2000 Completed [facility] 00:00:00 [facility] HIB 4 Dose Schedule 2000 Completed [facility] 00:00:00 [facility] Polio (IPV/OPV) 2000 Completed [facility] 00[facility]00:00 [facility] DTAP 2000 Completed [facility] 00:00:00 [facility] HIB 4 Dose Schedule 2000 Completed [facility] 00:00:00 [facility] Polio (IPV/OPV) 2000 Completed [facility] 00:00:00 [facility] Polio (IPV/OPV) 2000 Completed [facility] 00:00:00 [facility] DTAP 2000 Completed [facility] 00:00:00 [facility] HIB 4 Dose Schedule 2000 Completed [facility] 00:00:00 [facility] Polio (IPV/OPV) 2000 Completed [facility] 00:00:00 [facility] DTAP 2000 Completed [facility] 00:00:00 [facility] HIB 4 Dose Schedule 2000 Completed [facility] 00:00:00 [facility] Polio (IPV/OPV) 2000 Completed [facility] 00:00:00 [facility] DTAP 2000 Completed [facility] 00:00:00 [facility] HIB 4 Dose Schedule 2000 Completed [facility] 00:00:00 [facility] Polio (IPV/OPV) 2000 Completed [facility] 00[facility]00:00 [facility] DTAP 2000 Completed [facility] 00:00:00 [facility] HIB 4 Dose Schedule 2000 Completed [facility] 00:00:00 [facility] DTAP 2000 Completed [facility] 00:00:00 [facility] Polio (IPV/OPV) 2000 Completed [facility] 00:00:00 [facility] DTAP 2000 Completed [facility] 00:00:00 [facility] HIB 4 Dose Schedule 2000 Completed [facility] 00:00:00 [facility] HIB 4 Dose Schedule 2000 Completed [facility] 00:00:00 [facility] Polio (IPV/OPV) 2000 Completed [facility] 00:00:00 [facility] DTAP 2000 Completed [facility] 00:00:00 [facility] HIB 4 Dose Schedule 2000 Completed [facility] 00:00:00 [facility] Polio (IPV/OPV) 2000 Completed [facility] 00:00:00 [facility] DTAP 2000 Completed [facility] 00:00:00 [facility] HIB 4 Dose Schedule 2000 Completed [facility] 00:00:00 [facility] Polio (IPV/OPV) 2000 Completed [facility] 00:00:00 [facility] DTAP 2000 Completed [facility] 00:00:00 [facility] HIB 4 Dose Schedule 2000 Completed [facility] 00:00:00 [facility] Polio (IPV/OPV) 2000 Completed [facility] 00:00:00 [facility] Polio (IPV/OPV) 2000 Completed [facility] 00[facility]00:00 [facility] DTAP 2000 Completed [facility] 00:00:00 [facility] HIB 4 Dose Schedule 2000 Completed [facility] 00:00:00 [facility] Polio (IPV/OPV) 2000 Completed [facility] 00:00:00 [facility] DTAP 2000 Completed [facility] 00:00:00 [facility] HIB 4 Dose Schedule 2000 Completed [facility] 00:00:00 [facility] Polio (IPV/OPV) 2000 Completed [facility] 00:00:00 [facility] DTAP 2000 Completed [facility] 00:00:00 [facility] HIB 4 Dose Schedule 2000 Completed [facility] 00:00:00 [facility] Polio (IPV/OPV) 2000 Completed [facility] 00[facility]00:00 [facility] DTAP 2000 Completed [facility] 00:00:00 [facility] HIB 4 Dose Schedule 2000 Completed [facility] 00:00:00 [facility] Polio (IPV/OPV) 2000 Completed [facility] 00:00:00 [facility] DTAP 2000 Completed [facility] 00:00:00 [facility] DTAP 2000 Completed [facility] 00:00:00 [facility] HIB 4 Dose Schedule 2000 Completed [facility] 00:00:00 [facility] Polio (IPV/OPV) 2000 Completed [facility] 00:00:00 [facility] DTAP 2000 Completed [facility] 00:00:00 [facility] HIB 4 Dose Schedule 2000 Completed [facility] 00:00:00 [facility] HIB 4 Dose Schedule 2000 Completed [facility] 00:00:00 [facility] Polio (IPV/OPV) 2000 Completed [facility] 00:00:00 [facility] DTAP 2000 Completed [facility] 00:00:00 [facility] HIB 4 Dose Schedule 2000 Completed [facility] 00:00:00 [facility] Polio (IPV/OPV) 2000 Completed [facility] 00[facility]00:00 [facility] DTAP 2000 Completed [facility] 00[facility]00:00 [facility] DTAP 2000 Completed [facility] 00:00:00 [facility] HIB 4 Dose Schedule 2000 Completed [facility] 00:00:00 [facility] Polio (IPV/OPV) 2000 Completed [facility] 00:00:00 [facility] Polio (IPV/OPV) 2000 Completed [facility] 00[facility]00:00 [facility] DTAP 2000 Completed [facility] 00:00:00 [facility] HIB 4 Dose Schedule 2000 Completed [facility] 00:00:00 [facility] Polio (IPV/OPV) 2000 Completed [facility] 00:00:00 [facility] DTAP 2000 Completed [facility] 00:00:00 [facility] HIB 4 Dose Schedule 2000 Completed [facility] 00:00:00 [facility] Polio (IPV/OPV) 2000 Completed [facility] 00:00:00 [facility] DTAP 2000 Completed [facility] 00:00:00 [facility] HIB 4 Dose Schedule 2000 Completed [facility] 00:00:00 [facility] Polio (IPV/OPV) 2000 Completed [facility] 00[facility]00:00 [facility] DTAP 2000 Completed [facility] 00:00:00 [facility] HIB 4 Dose Schedule 2000 Completed [facility] 00:00:00 [facility] Polio (IPV/OPV) 2000 Completed [facility] 00:00:00 [facility] DTAP 2000 Completed [facility] 00:00:00 [facility] HIB 4 Dose Schedule 2000 Completed [facility] 00:00:00 [facility] Polio (IPV/OPV) 2000 Completed [facility] 00:00:00 [facility] DTAP 2000 Completed [facility] 00:00:00 [facility] DTAP 2000 Completed [facility] 00:00:00 [facility] HIB 4 Dose Schedule 2000 Completed [facility] 00:00:00 [facility] HIB 4 Dose Schedule 2000 Completed [facility] 00:00:00 [facility] Polio (IPV/OPV) 2000 Completed [facility] 00:00:00 [facility] DTAP 2000 Completed [facility] 00:00:00 [facility] HIB 4 Dose Schedule 2000 Completed [facility] 00:00:00 [facility] Polio (IPV/OPV) 2000 Completed [facility] 00:00:00 [facility] DTAP 2000 Completed [facility] 00:00:00 [facility] HIB 4 Dose Schedule 2000 Completed [facility] 00:00:00 [facility] Polio (IPV/OPV) 2000 Completed [facility] 00:00:00 [facility] HIB 4 Dose Schedule 2000 Completed [facility] 00:00:00 [facility] DTAP 2000 Completed [facility] 00:00:00 [facility] HIB 4 Dose Schedule 2000 Completed [facility] 00:00:00 [facility] Polio (IPV/OPV) 2000 Completed [facility] 00:00:00 [facility] Polio (IPV/OPV) 2000 Completed [facility] 00:00:00 [facility] DTAP 2000 Completed [facility] 00:00:00 [facility] HIB 4 Dose Schedule 2000 Completed [facility] 00:00:00 [facility] Polio (IPV/OPV) 2000 Completed [facility] 00:00:00 [facility] DTAP 2000 Completed [facility] 00:00:00 [facility] HIB 4 Dose Schedule 2000 Completed [facility] 00:00:00 [facility] Polio (IPV/OPV) 2000 Completed [facility] 00:00:00 [facility] DTAP 2000 Completed [facility] 00:00:00 [facility] HIB 4 Dose Schedule 2000 Completed [facility] 00:00:00 [facility] Polio (IPV/OPV) 2000 Completed [facility] 00:00:00 [facility] DTAP 2000 Completed [facility] 00:00:00 [facility] DTAP 2000 Completed [facility] 00:00:00 [facility] HIB 4 Dose Schedule 2000 Completed [facility] 00:00:00 [facility] Polio (IPV/OPV) 2000 Completed [facility] 00:00:00 [facility] HIB 4 Dose Schedule 2000 Completed [facility] 00[facility]00:00 [facility] DTAP 2000 Completed [facility] 00:00:00 [facility] HIB 4 Dose Schedule 2000 Completed [facility] 00:00:00 [facility] Polio (IPV/OPV) 2000 Completed [facility] 00:00:00 [facility] DTAP 2000 Completed [facility] 00:00:00 [facility] HIB 4 Dose Schedule 2000 Completed [facility] 00:00:00 [facility] Polio (IPV/OPV) 2000 Completed [facility] 00:00:00 [facility] DTAP 2000 Completed [facility] 00:00:00 [facility] HIB 4 Dose Schedule 2000 Completed [facility] 00:00:00 [facility] Polio (IPV/OPV) 2000 Completed [facility] 00:00:00 [facility] DTAP 2000 Completed [facility] 00:00:00 [facility] HIB 4 Dose Schedule 2000 Completed [facility] 00:00:00 [facility] Polio (IPV/OPV) 2000 Completed [facility] 00:00:00 [facility] Polio (IPV/OPV) 2000 Completed [facility] 00:00:00 [facility] DTAP 2000 Completed [facility] 00:00:00 [facility] HIB 4 Dose Schedule 2000 Completed [facility] 00:00:00 [facility] Polio (IPV/OPV) 2000 Completed [facility] 00:00:00 [facility] DTAP 2000 Completed [facility] 00:00:00 [facility] HIB 4 Dose Schedule 2000 Completed [facility] 00:00:00 [facility] Polio (IPV/OPV) 2000 Completed [facility] 00:00:00 [facility] DTAP 2000 Completed [facility] 00:00:00 [facility] HIB 4 Dose Schedule 2000 Completed [facility] 00:00:00 [facility] Polio (IPV/OPV) 2000 Completed [facility] 00:00:00 [facility] DTAP 2000 Completed [facility] 00:00:00 [facility] HIB 4 Dose Schedule 2000 Completed [facility] 00:00:00 [facility] Polio (IPV/OPV) 2000 Completed [facility] 00:00:00 [facility] DTAP 2000 Completed [facility] 00:00:00 [facility] HIB 4 Dose Schedule 2000 Completed [facility] 00:00:00 [facility] Polio (IPV/OPV) 2000 Completed [facility] 00:00:00 [facility] DTAP 2000 Completed [facility] 00:00:00 [facility] HIB 4 Dose Schedule 2000 Completed [facility] 00:00:00 [facility] Polio (IPV/OPV) 2000 Completed [facility] 00:00:00 [facility] DTAP 2000 Completed [facility] 00:00:00 [facility] HIB 4 Dose Schedule 2000 Completed [facility] 00:00:00 [facility] Polio (IPV/OPV) 2000 Completed [facility] 00:00:00 [facility] DTAP 2000 Completed [facility] 00:00:00 [facility] HIB 4 Dose Schedule 2000 Completed [facility] 00:00:00 [facility] Polio (IPV/OPV) 2000 Completed [facility] 00:00:00 [facility] DTAP 2000 Completed [facility] 00:00:00 [facility] HIB 4 Dose Schedule 2000 Completed [facility] 00:00:00 [facility] Polio (IPV/OPV) 2000 Completed [facility] 00:00:00 [facility] Polio (IPV/OPV) 2000 Completed [facility] 00:00:00 [facility] DTAP 2000 Completed [facility] 00:00:00 [facility] HIB 4 Dose Schedule 2000 Completed [facility] 00:00:00 [facility] Polio (IPV/OPV) 2000 Completed [facility] 00:00:00 [facility] DTAP 2000 Completed [facility] 00:00:00 [facility] HIB 4 Dose Schedule 2000 Completed [facility] 00:00:00 [facility] Polio (IPV/OPV) 2000 Completed [facility] 00:00:00 [facility] DTAP 2000 Completed [facility] 00:00:00 [facility] HIB 4 Dose Schedule 2000 Completed [facility] 00:00:00 [facility] Polio (IPV/OPV) 2000 Completed [facility] 00:00:00 [facility] DTAP 2000 Completed [facility] 00:00:00 [facility] HIB 4 Dose Schedule 2000 Completed [facility] 00:00:00 [facility] Polio (IPV/OPV) 2000 Completed [facility] 00:00:00 [facility] DTAP 2000 Completed [facility] 00:00:00 [facility] DTAP 2000 Completed [facility] 00:00:00 [facility] HIB 4 Dose Schedule 2000 Completed [facility] 00:00:00 [facility] Polio (IPV/OPV) 2000 Completed [facility] 00:00:00 [facility] HIB 4 Dose Schedule 2000 Completed [facility] 00:00:00 [facility] DTAP 2000 Completed [facility] 00:00:00 [facility] HIB 4 Dose Schedule 2000 Completed [facility] 00:00:00 [facility] DTAP 2000 Completed [facility] 00:00:00 [facility] HIB 4 Dose Schedule 2000 Completed [facility] 00:00:00 [facility] Hep B, Adol or Pedi 2000 Completed [facility] Dosage 00:00:00 [facility] Polio (IPV/OPV) 2000 Completed [facility] 00:00:00 [facility] Hep B, Adol or Pedi 2000 Completed [facility] Dosage 00:00:00 [facility] DTAP 2000 Completed [facility] 00:00:00 [facility] HIB 4 Dose Schedule 2000 Completed [facility] 00:00:00 [facility] Hep B, Adol or Pedi 2000 Completed [facility] Dosage 00:00:00 [facility] Polio (IPV/OPV) 2000 Completed [facility] 00[facility]00:00 [facility] DTAP 2000 Completed [facility] 00:00:00 [facility] HIB 4 Dose Schedule 2000 Completed [facility] 00:00:00 [facility] Polio (IPV/OPV) 2000 Completed [facility] 00:00:00 [facility] Hep B, Adol or Pedi 2000 Completed [facility] Dosage 00:00:00 [facility] Polio (IPV/OPV) 2000 Completed [facility] 00:00:00 [facility] DTAP 2000 Completed [facility] 00:00:00 [facility] HIB 4 Dose Schedule 2000 Completed [facility] 00:00:00 [facility] Hep B, Adol or Pedi 2000 Completed [facility] Dosage 00:00:00 [facility] Polio (IPV/OPV) 2000 Completed [facility] 00:00:00 [facility] DTAP 2000 Completed [facility] 00:00:00 [facility] HIB 4 Dose Schedule 2000 Completed [facility] 00:00:00 [facility] Hep B, Adol or Pedi 2000 Completed [facility] Dosage 00:00:00 [facility] Polio (IPV/OPV) 2000 Completed [facility] 00:00:00 [facility] DTAP 2000 Completed [facility] 00:00:00 [facility] HIB 4 Dose Schedule 2000 Completed [facility] 00:00:00 [facility] Hep B, Adol or Pedi 2000 Completed [facility] Dosage 00:00:00 [facility] Polio (IPV/OPV) 2000 Completed [facility] 00:00:00 [facility] DTAP 2000 Completed [facility] 00:00:00 [facility] HIB 4 Dose Schedule 2000 Completed [facility] 00:00:00 [facility] Hep B, Adol or Pedi 2000 Completed [facility] Dosage 00:00:00 [facility] Polio (IPV/OPV) 2000 Completed [facility] 00:00:00 [facility] DTAP 2000 Completed [facility] 00:00:00 [facility] HIB 4 Dose Schedule 2000 Completed [facility] 00:00:00 [facility] Hep B, Adol or Pedi 2000 Completed [facility] Dosage 00:00:00 [facility] Polio (IPV/OPV) 2000 Completed [facility] 00:00:00 [facility] DTAP 2000 Completed [facility] 00:00:00 [facility] HIB 4 Dose Schedule 2000 Completed [facility] 00:00:00 [facility] Hep B, Adol or Pedi 2000 Completed [facility] Dosage 00:00:00 [facility] Polio (IPV/OPV) 2000 Completed [facility] 00:00:00 [facility] DTAP 2000 Completed [facility] 00:00:00 [facility] HIB 4 Dose Schedule 2000 Completed [facility] 00:00:00 [facility] DTAP 2000 Completed [facility] 00:00:00 [facility] Hep B, Adol or Pedi 2000 Completed [facility] Dosage 00:00:00 [facility] Polio (IPV/OPV) 2000 Completed [facility] 00[facility]00:00 [facility] DTAP 2000 Completed [facility] 00:00:00 [facility] HIB 4 Dose Schedule 2000 Completed [facility] 00:00:00 [facility] Hep B, Adol or Pedi 2000 Completed [facility] Dosage 00:00:00 [facility] Polio (IPV/OPV) 2000 Completed [facility] 00:00:00 [facility] HIB 4 Dose Schedule 2000 Completed [facility] 00:00:00 [facility] DTAP 2000 Completed [facility] 00:00:00 [facility] HIB 4 Dose Schedule 2000 Completed [facility] 00:00:00 [facility] Hep B, Adol or Pedi 2000 Completed [facility] Dosage 00:00:00 [facility] Polio (IPV/OPV) 2000 Completed [facility] 00:00:00 [facility] DTAP 2000 Completed [facility] 00:00:00 [facility] HIB 4 Dose Schedule 2000 Completed [facility] 00:00:00 [facility] Hep B, Adol or Pedi 2000 Completed [facility] Dosage 00:00:00 [facility] Hep B, Adol or Pedi 2000 Completed [facility] Dosage 00:00:00 [facility] Polio (IPV/OPV) 2000 Completed [facility] 00:00:00 [facility] DTAP 2000 Completed [facility] 00:00:00 [facility] HIB 4 Dose Schedule 2000 Completed [facility] 00:00:00 [facility] Hep B, Adol or Pedi 2000 Completed [facility] Dosage 00:00:00 [facility] Polio (IPV/OPV) 2000 Completed [facility] 00:00:00 [facility] DTAP 2000 Completed [facility] 00:00:00 [facility] HIB 4 Dose Schedule 2000 Completed [facility] 00:00:00 [facility] Polio (IPV/OPV) 2000 Completed [facility] 00:00:00 [facility] Hep B, Adol or Pedi 2000 Completed [facility] Dosage 00:00:00 [facility] Polio (IPV/OPV) 2000 Completed [facility] 00:00:00 [facility] DTAP 2000 Completed [facility] 00:00:00 [facility] HIB 4 Dose Schedule 2000 Completed [facility] 00:00:00 [facility] Hep B, Adol or Pedi 2000 Completed [facility] Dosage 00:00:00 [facility] Polio (IPV/OPV) 2000 Completed [facility] 00:00:00 [facility] DTAP 2000 Completed [facility] 00:00:00 [facility] HIB 4 Dose Schedule 2000 Completed [facility] 00:00:00 [facility] Hep B, Adol or Pedi 2000 Completed [facility] Dosage 00:00:00 [facility] Polio (IPV/OPV) 2000 Completed [facility] 00:00:00 [facility] DTAP 2000 Completed [facility] 00:00:00 [facility] HIB 4 Dose Schedule 2000 Completed [facility] 00:00:00 [facility] Hep B, Adol or Pedi 2000 Completed [facility] Dosage 00:00:00 [facility] Polio (IPV/OPV) 2000 Completed [facility] 00:00:00 [facility] DTAP 2000 Completed [facility] 00:00:00 [facility] HIB 4 Dose Schedule 2000 Completed [facility] 00:00:00 [facility] Hep B, Adol or Pedi 2000 Completed [facility] Dosage 00:00:00 [facility] Polio (IPV/OPV) 2000 Completed [facility] 00:00:00 [facility] DTAP 2000 Completed [facility] 00:00:00 [facility] HIB 4 Dose Schedule 2000 Completed [facility] 00:00:00 [facility] Hep B, Adol or Pedi 2000 Completed [facility] Dosage 00:00:00 [facility] Polio (IPV/OPV) 2000 Completed [facility] 00:00:00 [facility] DTAP 2000 Completed [facility] 00[facility]00:00 [facility] DTAP 2000 Completed [facility] 00:00:00 [facility] HIB 4 Dose Schedule 2000 Completed [facility] 00:00:00 [facility] Hep B, Adol or Pedi 2000 Completed [facility] Dosage 00:00:00 [facility] Polio (IPV/OPV) 2000 Completed [facility] 00:00:00 [facility] DTAP 2000 Completed [facility] 00:00:00 [facility] HIB 4 Dose Schedule 2000 Completed [facility] 00:00:00 [facility] HIB 4 Dose Schedule 2000 Completed [facility] 00:00:00 [facility] Hep B, Adol or Pedi 2000 Completed [facility] Dosage 00:00:00 [facility] Polio (IPV/OPV) 2000 Completed [facility] 00:00:00 [facility] DTAP 2000 Completed [facility] 00:00:00 [facility] HIB 4 Dose Schedule 2000 Completed [facility] 00:00:00 [facility] Hep B, Adol or Pedi 2000 Completed [facility] Dosage 00:00:00 [facility] Polio (IPV/OPV) 2000 Completed [facility] 00:00:00 [facility] Hep B, Adol or Pedi 2000 Completed [facility] Dosage 00:00:00 [facility] DTAP 2000 Completed [facility] 00:00:00 [facility] HIB 4 Dose Schedule 2000 Completed [facility] 00:00:00 [facility] Hep B, Adol or Pedi 2000 Completed [facility] Dosage 00:00:00 [facility] Polio (IPV/OPV) 2000 Completed [facility] 00:00:00 [facility] DTAP 2000 Completed [facility] 00:00:00 [facility] HIB 4 Dose Schedule 2000 Completed [facility] 00:00:00 [facility] Hep B, Adol or Pedi 2000 Completed [facility] Dosage 00:00:00 [facility] Polio (IPV/OPV) 2000 Completed [facility]00 [facility] [facility] (IPV/OPV[facility] 2000 [facility] DTAP 2000 Completed [facility] 00[facility]00 [facility] HIB 4 Dose Schedule 2000 Completed [facility] 00:00:00 [facility] Hep B, Adol or Pedi 2000 Completed [facility] Dosage 00:00:00 [facility] Polio (IPV/OPV) 2000 Completed [facility]:00 [facility] DTAP 2000 Completed [facility] 00:00:00 [facility] HIB 4 Dose Schedule 2000 Completed [facility] 00:00:00 [facility] Hep B, Adol or Pedi 2000 Completed [facility] Dosage 00:00:00 [facility] Polio (IPV/OPV) 2000 Completed [facility] 00:00:00 [facility] DTAP 2000 Completed [facility] 00[facility]00:00 [facility] HIB 4 Dose Schedule 2000 Completed [facility] 00:00:00 [facility] Hep B, Adol or Pedi 2000 Completed [facility] Dosage 00:00:00 [facility] Polio (IPV/OPV) 2000 Completed [facility] 00[facility]00:00 [facility] DTAP 2000 Completed [facility] 00[facility]00:00 [facility] DTAP 2000 Completed [facility] 00:00:00 [facility] HIB 4 Dose Schedule 2000 Completed [facility] 00:00:00 [facility] Hep B, Adol or Pedi 2000 Completed [facility] Dosage 00:00:00 [facility] Polio (IPV/OPV) 2000 Completed [facility] 00:00:00 [facility] DTAP 2000 Completed [facility] 00:00:00 [facility] HIB 4 Dose Schedule 2000 Completed [facility] 00:00:00 [facility] HIB 4 Dose Schedule 2000 Completed [facility] 00:00:00 [facility] Hep B, Adol or Pedi 2000 Completed [facility] Dosage 00:00:00 [facility] Polio (IPV/OPV) 2000 Completed [facility] 00:00:00 [facility] DTAP 2000 Completed [facility] 00[facility]00:00 [facility] HIB 4 Dose Schedule 2000 Completed [facility] 00:00:00 [facility] Hep B, Adol or Pedi 2000 Completed [facility] Dosage 00:00:00 [facility] Polio (IPV/OPV) 2000 Completed [facility] 00:00:00 [facility] Hep B, Adol or Pedi 2000 Completed [facility] Dosage 00:00:00 [facility] DTAP 2000 Completed [facility] 00:00:00 [facility] HIB 4 Dose Schedule 2000 Completed [facility] 00:00:00 [facility] Hep B, Adol or Pedi 2000 Completed [facility] Dosage 00:00:00 [facility] Polio (IPV/OPV) 2000 Completed [facility] 00[facility]00:00 [facility] DTAP 2000 Completed [facility] 00:00:00 [facility] HIB 4 Dose Schedule 2000 Completed [facility] 00:00:00 [facility] Hep B, Adol or Pedi 2000 Completed [facility] Dosage 00:00:00 [facility] Polio (IPV/OPV) 2000 Completed [facility] 00:00:00 [facility] Polio (IPV/OPV) 2000 Completed [facility] 00[facility]00:00 [facility] DTAP 2000 Completed [facility] 00:00:00 [facility] HIB 4 Dose Schedule 2000 Completed [facility] 00:00:00 [facility] Hep B, Adol or Pedi 2000 Completed [facility] Dosage 00:00:00 [facility] Polio (IPV/OPV) 2000 Completed [facility] 00:00:00 [facility] DTAP 2000 Completed [facility] 00[facility]00:00 [facility] HIB 4 Dose Schedule 2000 Completed [facility] 00:00:00 [facility] Hep B, Adol or Pedi 2000 Completed [facility] Dosage 00:00:00 [facility] Polio (IPV/OPV) 2000 Completed [facility] 00:00:00 [facility] DTAP 2000 Completed [facility] 00:00:00 [facility] HIB 4 Dose Schedule 2000 Completed [facility] 00:00:00 [facility] Hep B, Adol or Pedi 2000 Completed [facility] Dosage 00:00:00 [facility] Polio (IPV/OPV) 2000 Completed [facility] 00:00:00 [facility] DTAP 2000 Completed [facility] 00[facility]00:00 [facility] HIB 4 Dose Schedule 2000 Completed [facility] 00:00:00 [facility] Hep B, Adol or Pedi 2000 Completed [facility] Dosage 00:00:00 [facility] Polio (IPV/OPV) 2000 Completed [facility] 00:00:00 [facility] DTAP 2000 Completed [facility] 00:00:00 [facility] DTAP 2000 Completed [facility] 00:00:00 [facility] HIB 4 Dose Schedule 2000 Completed [facility] 00:00:00 [facility] Hep B, Adol or Pedi 2000 Completed [facility] Dosage 00:00:00 [facility] Polio (IPV/OPV) 2000 Completed [facility] 00[facility]00:00 [facility] DTAP 2000 Completed [facility] 00:00:00 [facility] HIB 4 Dose Schedule 2000 Completed [facility] 00:00:00 [facility] HIB 4 Dose Schedule 2000 Completed [facility] 00:00:00 [facility] Hep B, Adol or Pedi 2000 Completed [facility] Dosage 00:00:00 [facility] Polio (IPV/OPV) 2000 Completed [facility] 00[facility]00:00 [facility] DTAP 2000 Completed [facility] 00:00:00 [facility] HIB 4 Dose Schedule 2000 Completed [facility] 00:00:00 [facility] Hep B, Adol or Pedi 2000 Completed [facility] Dosage 00:00:00 [facility] Polio (IPV/OPV) 2000 Completed [facility] 00:00:00 [facility] Hep B, Adol or Pedi 2000 Completed [facility] Dosage 00:00:00 [facility] DTAP 2000 Completed [facility] 00:00:00 [facility] HIB 4 Dose Schedule 2000 Completed [facility] 00:00:00 [facility] Hep B, Adol or Pedi 2000 Completed [facility] Dosage 00:00:00 [facility] Polio (IPV/OPV) 2000 Completed [facility] 00:00:00 [facility] DTAP 2000 Completed [facility] 00:00:00 [facility] HIB 4 Dose Schedule 2000 Completed [facility] 00:00:00 [facility] Hep B, Adol or Pedi 2000 Completed [facility] Dosage 00:00:00 [facility] Polio (IPV/OPV) 2000 Completed [facility] 00:00:00 [facility] Polio (IPV/OPV) 2000 Completed [facility] 00:00:00 [facility] DTAP 2000 Completed [facility] 00:00:00 [facility] HIB 4 Dose Schedule 2000 Completed [facility] 00:00:00 [facility] Hep B, Adol or Pedi 2000 Completed [facility] Dosage 00:00:00 [facility] Polio (IPV/OPV) 2000 Completed [facility] 00:00:00 [facility] DTAP 2000 Completed [facility] 00:00:00 [facility] HIB 4 Dose Schedule 2000 Completed [facility] 00:00:00 [facility] Hep B, Adol or Pedi 2000 Completed [facility] Dosage 00:00:00 [facility] Polio (IPV/OPV) 2000 Completed [facility] 00:00:00 [facility] DTAP 2000 Completed [facility] 00:00:00 [facility] HIB 4 Dose Schedule 2000 Completed [facility] 00:00:00 [facility] Hep B, Adol or Pedi 2000 Completed [facility] Dosage 00:00:00 [facility] Polio (IPV/OPV) 2000 Completed [facility] 00:00:00 [facility] DTAP 2000 Completed [facility] 00:00:00 [facility] HIB 4 Dose Schedule 2000 Completed [facility] 00:00:00 [facility] Hep B, Adol or Pedi 2000 Completed [facility] Dosage 00:00:00 [facility] Polio (IPV/OPV) 2000 Completed [facility] 00:00:00 [facility] DTAP 2000 Completed [facility] 00:00:00 [facility] HIB 4 Dose Schedule 2000 Completed [facility] 00:00:00 [facility] DTAP 2000 Completed [facility] 00:00:00 [facility] HIB 4 Dose Schedule 2000 Completed [facility] 00:00:00 [facility] Hep B, Adol or Pedi 2000 Completed [facility] Dosage 00:00:00 [facility] Polio (IPV/OPV) 2000 Completed [facility] 00:00:00 [facility] Hep B, Adol or Pedi 2000 Completed [facility] Dosage 00:00:00 [facility] DTAP 2000 Completed [facility] 00:00:00 [facility] HIB 4 Dose Schedule 2000 Completed [facility] 00:00:00 [facility] Hep B, Adol or Pedi 2000 Completed [facility] Dosage 00:00:00 [facility] Polio (IPV/OPV) 2000 Completed [facility] 00:00:00 [facility] DTAP 2000 Completed [facility] 00:00:00 [facility] HIB 4 Dose Schedule 2000 Completed [facility] 00:00:00 [facility] Hep B, Adol or Pedi 2000 Completed [facility] Dosage 00:00:00 [facility] Polio (IPV/OPV) 2000 Completed [facility] 00:00:00 [facility] Polio (IPV/OPV) 2000 Completed [facility] 00:00:00 [facility] DTAP 2000 Completed [facility] 00:00:00 [facility] HIB 4 Dose Schedule 2000 Completed [facility] 00:00:00 [facility] Hep B, Adol or Pedi 2000 Completed [facility] Dosage 00:00:00 [facility] Polio (IPV/OPV) 2000 Completed [facility] 00[facility]00:00 [facility] DTAP 2000 Completed [facility] 00:00:00 [facility] HIB 4 Dose Schedule 2000 Completed [facility] 00:00:00 [facility] Hep B, Adol or Pedi 2000 Completed [facility] Dosage 00:00:00 [facility] Polio (IPV/OPV) 2000 Completed [facility] 00:00:00 [facility] DTAP 2000 Completed [facility] 00:00:00 [facility] HIB 4 Dose Schedule 2000 Completed [facility] 00:00:00 [facility] Hep B, Adol or Pedi 2000 Completed [facility] Dosage 00:00:00 [facility] Polio (IPV/OPV) 2000 Completed [facility] 00:00:00 [facility] DTAP 2000 Completed [facility] 00:00:00 [facility] HIB 4 Dose Schedule 2000 Completed [facility] 00:00:00 [facility] Hep B, Adol or Pedi 2000 Completed [facility] Dosage 00:00:00 [facility] Polio (IPV/OPV) 2000 Completed [facility] 00:00:00 [facility] DTAP 2000 Completed [facility] 00:00:00 [facility] DTAP 2000 Completed [facility] 00:00:00 [facility] HIB 4 Dose Schedule 2000 Completed [facility] 00:00:00 [facility] Hep B, Adol or Pedi 2000 Completed [facility] Dosage 00:00:00 [facility] Polio (IPV/OPV) 2000 Completed [facility] 00:00:00 [facility] HIB 4 Dose Schedule 2000 Completed [facility] 00:00:00 [facility] DTAP 2000 Completed [facility] 00:00:00 [facility] HIB 4 Dose Schedule 2000 Completed [facility] 00:00:00 [facility] Hep B, Adol or Pedi 2000 Completed [facility] Dosage 00:00:00 [facility] Polio (IPV/OPV) 2000 Completed [facility] 00:00:00 [facility] DTAP 2000 Completed [facility] 00:00:00 [facility] HIB 4 Dose Schedule 2000 Completed [facility] 00:00:00 [facility] Hep B, Adol or Pedi 2000 Completed [facility] Dosage 00:00:00 [facility] Hep B, Adol or Pedi 2000 Completed [facility] Dosage 00:00:00 [facility] Polio (IPV/OPV) 2000 Completed [facility] 00:00:00 [facility] DTAP 2000 Completed [facility] 00:00:00 [facility] HIB 4 Dose Schedule 2000 Completed [facility] 00:00:00 [facility] Hep B, Adol or Pedi 2000 Completed [facility] Dosage 00:00:00 [facility] Polio (IPV/OPV) 2000 Completed [facility] 00[facility]00:00 [facility] DTAP 2000 Completed [facility] 00[facility]00:00 [facility] HIB 4 Dose Schedule 2000 Completed [facility] 00:00:00 [facility] Polio (IPV/OPV) 2000 Completed [facility] 00:00:00 [facility] Hep B, Adol or Pedi 2000 Completed [facility] Dosage 00:00:00 [facility] Polio (IPV/OPV) 2000 Completed [facility] 00[facility]00:00 [facility] DTAP 2000 Completed [facility] 00:00:00 [facility] HIB 4 Dose Schedule 2000 Completed [facility] 00:00:00 [facility] Hep B, Adol or Pedi 2000 Completed [facility] Dosage 00:00:00 [facility] Polio (IPV/OPV) 2000 Completed [facility] 00:00:00 [facility] DTAP 2000 Completed [facility] 00:00:00 [facility] HIB 4 Dose Schedule 2000 Completed [facility] 00:00:00 [facility] Hep B, Adol or Pedi 2000 Completed [facility] Dosage 00:00:00 [facility] Polio (IPV/OPV) 2000 Completed [facility] 00[facility]00:00 [facility] DTAP 2000 Completed [facility] 00:00:00 [facility] HIB 4 Dose Schedule 2000 Completed [facility] 00:00:00 [facility] Hep B, Adol or Pedi 2000 Completed [facility] Dosage 00:00:00 [facility] Polio (IPV/OPV) 2000 Completed [facility] 00:00:00 [facility] DTAP 2000 Completed [facility] 00[facility]00:00 [facility] HIB 4 Dose Schedule 2000 Completed [facility] 00:00:00 [facility] Hep B, Adol or Pedi 2000 Completed [facility] Dosage 00:00:00 [facility] Polio (IPV/OPV) 2000 Completed [facility] 00:00:00 [facility] DTAP 2000 Completed [facility] 00:00:00 [facility] HIB 4 Dose Schedule 2000 Completed [facility] 00:00:00 [facility] Hep B, Adol or Pedi 2000 Completed [facility] Dosage 00:00:00 [facility] Polio (IPV/OPV) 2000 Completed [facility] 00:00:00 [facility] DTAP 2000 Completed [facility] 00:00:00 [facility] DTAP 2000 Completed [facility] 00:00:00 [facility] HIB 4 Dose Schedule 2000 Completed [facility] 00:00:00 [facility] Hep B, Adol or Pedi 2000 Completed [facility] Dosage 00:00:00 [facility] Polio (IPV/OPV) 2000 Completed [facility] 00:00:00 [facility] HIB 4 Dose Schedule 2000 Completed [facility] 00:00:00 [facility] DTAP 2000 Completed [facility] 00:00:00 [facility] HIB 4 Dose Schedule 2000 Completed [facility] 00:00:00 [facility] Hep B, Adol or Pedi 2000 Completed [facility] Dosage 00:00:00 [facility] Polio (IPV/OPV) 2000 Completed [facility] 00:00:00 [facility] Hep B, Adol or Pedi 2000 Completed [facility] Dosage 00:00:00 [facility] DTAP 2000 Completed [facility] 00:00:00 [facility] HIB 4 Dose Schedule 2000 Completed [facility] 00:00:00 [facility] Hep B, Adol or Pedi 2000 Completed [facility] Dosage 00:00:00 [facility] Polio (IPV/OPV) 2000 Completed [facility] 00[facility]00:00 [facility] DTAP 2000 Completed [facility] 00:00:00 [facility] HIB 4 Dose Schedule 2000 Completed [facility] 00:00:00 [facility] Polio (IPV/OPV) 2000 Completed [facility] 00:00:00 [facility] Hep B, Adol or Pedi 2000 Completed [facility] Dosage 00:00:00 [facility] Polio (IPV/OPV) 2000 Completed [facility] 00:00:00 [facility] DTAP 2000 Completed [facility] 00:00:00 [facility] HIB 4 Dose Schedule 2000 Completed [facility] 00:00:00 [facility] Hep B, Adol or Pedi 2000 Completed [facility] Dosage 00:00:00 [facility] Polio (IPV/OPV) 2000 Completed [facility] 00:00:00 [facility] DTAP 2000 Completed [facility] 00:00:00 [facility] HIB 4 Dose Schedule 2000 Completed [facility] 00:00:00 [facility] Hep B, Adol or Pedi 2000 Completed [facility] Dosage 00:00:00 [facility] Polio (IPV/OPV) 2000 Completed [facility] 00:00:00 [facility] DTAP 2000 Completed [facility] 00:00:00 [facility] HIB 4 Dose Schedule 2000 Completed [facility] 00:00:00 [facility] Hep B, Adol or Pedi 2000 Completed [facility] Dosage 00:00:00 [facility] Polio (IPV/OPV) 2000 Completed [facility] 00:00:00 [facility] DTAP 2000 Completed [facility] 00[facility]00:00 [facility] DTAP 2000 Completed [facility] 00:00:00 [facility] HIB 4 Dose Schedule 2000 Completed [facility] 00:00:00 [facility] Hep B, Adol or Pedi 2000 Completed [facility] Dosage 00:00:00 [facility] Polio (IPV/OPV) 2000 Completed [facility] 00:00:00 [facility] DTAP 2000 Completed [facility] 00[facility]00:00 [facility] HIB 4 Dose Schedule 2000 Completed [facility] 00:00:00 [facility] HIB 4 Dose Schedule 2000 Completed [facility] 00:00:00 [facility] Hep B, Adol or Pedi 2000 Completed [facility] Dosage 00:00:00 [facility] Polio (IPV/OPV) 2000 Completed [facility] 00[facility]00:00 [facility] DTAP 2000 Completed [facility] 00[facility]00:00 [facility] HIB 4 Dose Schedule 2000 Completed [facility] 00:00:00 [facility] Hep B, Adol or Pedi 2000 Completed [facility] Dosage 00:00:00 [facility] Polio (IPV/OPV) 2000 Completed [facility] 00[facility]00:00 [facility] Hep B, Adol or Pedi 2000 Completed [facility] Dosage 00:00:00 [facility] DTAP 2000 Completed [facility] 00:00:00 [facility] HIB 4 Dose Schedule 2000 Completed [facility] 00:00:00 [facility] Hep B, Adol or Pedi 2000 Completed [facility] Dosage 00:00:00 [facility] Polio (IPV/OPV) 2000 Completed [facility] 00:00:00 [facility] DTAP 2000 Completed [facility] 00:00:00 [facility] HIB 4 Dose Schedule 2000 Completed [facility] 00:00:00 [facility] Polio (IPV/OPV) 2000 Completed [facility] 00:00:00 [facility] Hep B, Adol or Pedi 2000 Completed [facility] Dosage 00:00:00 [facility] Polio (IPV/OPV) 2000 Completed [facility] 00:00:00 [facility] DTAP 2000 Completed [facility] 00[facility]00:00 [facility] HIB 4 Dose Schedule 2000 Completed [facility] 00:00:00 [facility] Hep B, Adol or Pedi 2000 Completed [facility] Dosage 00:00:00 [facility] Polio (IPV/OPV) 2000 Completed [facility] 00:00:00 [facility] DTAP 2000 Completed [facility] 00:00:00 [facility] HIB 4 Dose Schedule 2000 Completed [facility] 00:00:00 [facility] Hep B, Adol or Pedi 2000 Completed [facility] Dosage 00:00:00 [facility] Polio (IPV/OPV) 2000 Completed [facility] 00:00:00 [facility] DTAP 2000 Completed [facility] 00:00:00 [facility] HIB 4 Dose Schedule 2000 Completed [facility] 00:00:00 [facility] Hep B, Adol or Pedi 2000 Completed [facility] Dosage 00:00:00 [facility] Polio (IPV/OPV) 2000 Completed [facility] 00[facility]00:00 [facility] DTAP 2000 Completed [facility] 00:00:00 [facility] HIB 4 Dose Schedule 2000 Completed [facility] 00:00:00 [facility] Hep B, Adol or Pedi 2000 Completed [facility] Dosage 00:00:00 [facility] Polio (IPV/OPV) 2000 Completed [facility] 00:00:00 [facility] DTAP 2000 Completed [facility] 00[facility]00:00 [facility] DTAP 2000 Completed [facility] 00:00:00 [facility] HIB 4 Dose Schedule 2000 Completed [facility] 00:00:00 [facility] Hep B, Adol or Pedi 2000 Completed [facility] Dosage 00:00:00 [facility] Polio (IPV/OPV) 2000 Completed [facility] 00:00:00 [facility] DTAP 2000 Completed [facility] 00[facility]00:00 [facility] HIB 4 Dose Schedule 2000 Completed [facility] 00:00:00 [facility] DTAP 2000 Completed [facility] 00:00:00 [facility] HIB 4 Dose Schedule 2000 Completed [facility] 00:00:00 [facility] Hep B, Adol or Pedi 2000 Completed [facility] Dosage 00:00:00 [facility] Polio (IPV/OPV) 2000 Completed [facility] 00:00:00 [facility] DTAP 2000 Completed [facility] 00:00:00 [facility] HIB 4 Dose Schedule 2000 Completed [facility] 00:00:00 [facility] Hep B, Adol or Pedi 2000 Completed [facility] Dosage 00:00:00 [facility] Hep B, Adol or Pedi 2000 Completed [facility] Dosage 00:00:00 [facility] Polio (IPV/OPV) 2000 Completed [facility] 00:00:00 [facility] DTAP 2000 Completed [facility] 00:00:00 [facility] HIB 4 Dose Schedule 2000 Completed [facility] 00:00:00 [facility] Hep B, Adol or Pedi 2000 Completed [facility] Dosage 00:00:00 [facility] Polio (IPV/OPV) 2000 Completed [facility] 00:00:00 [facility] Polio (IPV/OPV) 2000 Completed [facility] 00:00:00 [facility] DTAP 2000 Completed [facility] 00:00:00 [facility] HIB 4 Dose Schedule 2000 Completed [facility] 00:00:00 [facility] Hep B, Adol or Pedi 2000 Completed [facility] Dosage 00:00:00 [facility] Polio (IPV/OPV) 2000 Completed [facility] 00[facility]00:00 [facility] DTAP 2000 Completed [facility] 00:00:00 [facility] HIB 4 Dose Schedule 2000 Completed [facility] 00:00:00 [facility] Hep B, Adol or Pedi 2000 Completed [facility] Dosage 00:00:00 [facility] Polio (IPV/OPV) 2000 Completed [facility] 00:00:00 [facility] DTAP 2000 Completed [facility] 00:00:00 [facility] HIB 4 Dose Schedule 2000 Completed [facility] 00:[facility]:[place] [facility] Hep B, Adol or Pedi 2000 Completed [facility] Dosage 00:00:00 [facility] Polio (IPV/OPV) 2000 Completed [facility] 00:00:00 [facility] DTAP 2000 Completed [facility] 00:00:00 [facility] HIB 4 Dose Schedule 2000 Completed [facility] 00:00:00 [facility] Hep B, Adol or Pedi 2000 Completed [facility] Dosage 00:00:00 [facility] Polio (IPV/OPV) 2000 Completed [facility] 00:00:00 [facility] DTAP 2000 Completed [facility] 00:00:00 [facility] HIB 4 Dose Schedule 2000 Completed [facility] 00:00:00 [facility] Hep B, Adol or Pedi 2000 Completed [facility] Dosage 00:00:00 [facility] Polio (IPV/OPV) 2000 Completed [facility] 00:00:00 [facility] DTAP 2000 Completed [facility] 00:00:00 [facility] DTAP 2000 Completed [facility] 00:00:00 [facility] HIB 4 Dose Schedule 2000 Completed [facility] 00:00:00 [facility] HIB 4 Dose Schedule 2000 Completed [facility] 00:00:00 [facility] Hep B, Adol or Pedi 2000 Completed [facility] Dosage 00:00:00 [facility] Polio (IPV/OPV) 2000 Completed [facility] 00:00:00 [facility] HIB 4 Dose Schedule 2000 Completed [facility] 00:00:00 [facility] DTAP 2000 Completed [facility] 00:00:00 [facility] HIB 4 Dose Schedule 2000 Completed [facility] 00:00:00 [facility] Hep B, Adol or Pedi 2000 Completed [facility] Dosage 00:00:00 [facility] Polio (IPV/OPV) 2000 Completed [facility] 00:00:00 [facility] Hep B, Adol or Pedi 2000 Completed [facility] Dosage 00:00:00 [facility] DTAP 2000 Completed [facility] 00:00:00 [facility] HIB 4 Dose Schedule 2000 Completed [facility] 00:00:00 [facility] Hep B, Adol or Pedi 2000 Completed [facility] Dosage 00:00:00 [facility] Polio (IPV/OPV) 2000 Completed [facility] 00:00:00 [facility] Polio (IPV/OPV) 2000 Completed [facility] 00:00:00 [facility] DTAP 2000 Completed [facility] 00:00:00 [facility] HIB 4 Dose Schedule 2000 Completed [facility] 00:00:00 [facility] Hep B, Adol or Pedi 2000 Completed [facility] Dosage 00:00:00 [facility] Polio (IPV/OPV) 2000 Completed [facility] 00:00:00 [facility] DTAP 2000 Completed [facility] 00:00:00 [facility] HIB 4 Dose Schedule 2000 Completed [facility] 00:00:00 [facility] Hep B, Adol or Pedi 2000 Completed [facility] Dosage 00:00:00 [facility] Polio (IPV/OPV) 2000 Completed [facility] 00:00:00 [facility] DTAP 2000 Completed [facility] 00:00:00 [facility] HIB 4 Dose Schedule 2000 Completed [facility] 00:00:00 [facility] Hep B, Adol or Pedi 2000 Completed [facility] Dosage 00:00:00 [facility] Polio (IPV/OPV) 2000 Completed [facility] 00:00:00 [facility] DTAP 2000 Completed [facility] 00:00:00 [facility] HIB 4 Dose Schedule 2000 Completed [facility] 00:00:00 [facility] Hep B, Adol or Pedi 2000 Completed [facility] Dosage 00:00:00 [facility] Polio (IPV/OPV) 2000 Completed [facility] 00:00:00 [facility] DTAP 2000 Completed [facility] 00:00:00 [facility] DTAP 2000 Completed [facility] 00:00:00 [facility] HIB 4 Dose Schedule 2000 Completed [facility] 00:00:00 [facility] Hep B, Adol or Pedi 2000 Completed [facility] Dosage 00:00:00 [facility] Polio (IPV/OPV) 2000 Completed [facility] 00:00:00 [facility] HIB 4 Dose Schedule 2000 Completed [facility] 00:00:00 [facility] DTAP 2000 Completed [facility] 00:00:00 [facility] HIB 4 Dose Schedule 2000 Completed [facility] 00:00:00 [facility] Hep B, Adol or Pedi 2000 Completed [facility] Dosage 00:00:00 [facility] Polio (IPV/OPV) 2000 Completed [facility] 00:00:00 [facility] DTAP 2000 Completed [facility] 00:00:00 [facility] HIB 4 Dose Schedule 2000 Completed [facility] 00:00:00 [facility] Hep B, Adol or Pedi 2000 Completed [facility] Dosage 00:00:00 [facility] Polio (IPV/OPV) 2000 Completed [facility] 00:00:00 [facility] Hep B, Adol or Pedi 2000 Completed [facility] Dosage 00:00:00 [facility] DTAP 2000 Completed [facility] 00:00:00 [facility] HIB 4 Dose Schedule 2000 Completed [facility] 00:00:00 [facility] Hep B, Adol or Pedi 2000 Completed [facility] Dosage 00:00:00 [facility] Polio (IPV/OPV) 2000 Completed [facility] 00:00:00 [facility] DTAP 2000 Completed [facility] 00:00:00 [facility] HIB 4 Dose Schedule 2000 Completed [facility] 00:00:00 [facility] Hep B, Adol or Pedi 2000 Completed [facility] Dosage 00:00:00 [facility] Polio (IPV/OPV) 2000 Completed [facility] 00:00:00 [facility] Polio (IPV/OPV) 2000 Completed [facility] 00:00:00 [facility] DTAP 2000 Completed [facility] 00:00:00 [facility] HIB 4 Dose Schedule 2000 Completed [facility] 00:00:00 [facility] Hep B, Adol or Pedi 2000 Completed [facility] Dosage 00:00:00 [facility] Polio (IPV/OPV) 2000 Completed [facility] 00:00:00 [facility] DTAP 2000 Completed [facility] 00:00:00 [facility] HIB 4 Dose Schedule 2000 Completed [facility] 00:00:00 [facility] Hep B, Adol or Pedi 2000 Completed [facility] Dosage 00:00:00 [facility] Polio (IPV/OPV) 2000 Completed [facility] 00:00:00 [facility] DTAP 2000 Completed [facility] 00:00:00 [facility] HIB 4 Dose Schedule 2000 Completed [facility] 00:00:00 [facility] Hep B, Adol or Pedi 2000 Completed [facility] Dosage 00:00:00 [facility] Polio (IPV/OPV) 2000 Completed [facility] 00:00:00 [facility] Hep B, Adol or Pedi 2000 Completed [facility] Dosage 00:00:00 [facility] DTAP 2000 Completed [facility] 00:00:00 [facility] HIB 4 Dose Schedule 2000 Completed [facility] 00:00:00 [facility] Hep B, Adol or Pedi 2000 Completed [facility] Dosage 00:00:00 [facility] Polio (IPV/OPV) 2000 Completed [facility] 00:00:00 [facility] DTAP 2000 Completed [facility] 00:00:00 [facility] HIB 4 Dose Schedule 2000 Completed [facility] 00:00:00 [facility] Hep B, Adol or Pedi 2000 Completed [facility] Dosage 00:00:00 [facility] Polio (IPV/OPV) 2000 Completed [facility] 00:00:00 [facility] DTAP 2000 Completed [facility] 00:00:00 [facility] HIB 4 Dose Schedule 2000 Completed [facility] 00:00:00 [facility] Hep B, Adol or Pedi 2000 Completed [facility] Dosage 00:00:00 [facility] Polio (IPV/OPV) 2000 Completed [facility] 00:00:00 [facility] DTAP 2000 Completed [facility] 00:00:00 [facility] HIB 4 Dose Schedule 2000 Completed [facility] 00:00:00 [facility] Hep B, Adol or Pedi 2000 Completed [facility] Dosage 00:00:00 [facility] Polio (IPV/OPV) 2000 Completed [facility] 00:00:00 [facility] DTAP 2000 Completed [facility] 00:00:00 [facility] HIB 4 Dose Schedule 2000 Completed [facility] 00:00:00 [facility] Hep B, Adol or Pedi 2000 Completed [facility] Dosage 00:00:00 [facility] Polio (IPV/OPV) 2000 Completed [facility] 00:00:00 [facility] DTAP 2000 Completed [facility] 00:00:00 [facility] HIB 4 Dose Schedule 2000 Completed [facility] 00:00:00 [facility] Hep B, Adol or Pedi 2000 Completed [facility] Dosage 00:00:00 [facility] Polio (IPV/OPV) 2000 Completed [facility] 00:00:00 [facility] Polio (IPV/OPV) 2000 Completed [facility] 00:00:00 [facility] DTAP 2000 Completed [facility] 00:00:00 [facility] HIB 4 Dose Schedule 2000 Completed [facility] 00:00:00 [facility] Hep B, Adol or Pedi 2000 Completed [facility] Dosage 00:00:00 [facility] Polio (IPV/OPV) 2000 Completed [facility] 00:00:00 [facility] DTAP 2000 Completed [facility] 00:00:00 [facility] HIB 4 Dose Schedule 2000 Completed [facility] 00:00:00 [facility] Hep B, Adol or Pedi 2000 Completed [facility] Dosage 00:00:00 [facility] Polio (IPV/OPV) 2000 Completed [facility] 00:00:00 [facility] DTAP 2000 Completed [facility] 00:00:00 [facility] HIB 4 Dose Schedule 2000 Completed [facility] 00:00:00 [facility] Hep B, Adol or Pedi 2000 Completed [facility] Dosage 00:00:00 [facility] Polio (IPV/OPV) 2000 Completed [facility] 00:00:00 [facility] DTAP 2000 Completed [facility] 00:00:00 [facility] HIB 4 Dose Schedule 2000 Completed [facility] 00:00:00 [facility] Hep B, Adol or Pedi 2000 Completed [facility] Dosage 00:00:00 [facility] Polio (IPV/OPV) 2000 Completed [facility] 00:00:00 [facility] DTAP 2000 Completed [facility] 00:00:00 [facility] DTAP 2000 Completed [facility] 00:00:00 [facility] HIB 4 Dose Schedule 2000 Completed [facility] 00:00:00 [facility] Hep B, Adol or Pedi 2000 Completed [facility] Dosage 00:00:00 [facility] Polio (IPV/OPV) 2000 Completed [facility] 00:00:00 [facility] HIB 4 Dose Schedule 2000 Completed [facility] 00:00:00 [facility] DTAP 2000 Completed [facility] 00:00:00 [facility] HIB 4 Dose Schedule 2000 Completed [facility] 00:00:00 [facility] Hep B, Adol or Pedi 2000 Completed [facility] Dosage 00:00:00 [facility] Polio (IPV/OPV) 2000 Completed [facility] 00:00:00 [facility] Hep B, Adol or Pedi 2000 Completed [facility] Dosage 00:00:00 [facility] Hep B, Adol or Pedi 2000 Completed [facility] Dosage 00:00:00 [facility] Hep B, Adol or Pedi 2000 Completed [facility] Dosage 00:00:00 [facility] Hep B, Adol or Pedi 2000 Completed [facility] Dosage 00:00:00 [facility] Hep B, Adol or Pedi 2000 Completed [facility] Dosage 00:00:00 [facility] Hep B, Adol or Pedi 2000 Completed [facility] Dosage 00:00:00 [facility] Hep B, Adol or Pedi 2000 Completed [facility] Dosage 00:00:00 [facility] Hep B, Adol or Pedi 2000 Completed [facility] Dosage 00:00:00 [facility] Hep B, Adol or Pedi 2000 Completed [facility] Dosage 00:00:00 [facility] Hep B, Adol or Pedi 2000 Completed [facility] Dosage 00:00:00 [facility] Hep B, Adol or Pedi 2000 Completed [facility] Dosage 00:00:00 [facility] Hep B, Adol or Pedi 2000 Completed [facility] Dosage 00:00:00 [facility] Hep B, Adol or Pedi 2000 Completed [facility] Dosage 00:00:00 [facility] Hep B, Adol or Pedi 2000 Completed [facility] Dosage 00:00:00 [facility] Hep B, Adol or Pedi 2000 Completed [facility] Dosage 00:00:00 [facility] Hep B, Adol or Pedi 2000 Completed [facility] Dosage 00:00:00 [facility] Hep B, Adol or Pedi 2000 Completed [facility] Dosage 00:00:00 [facility] Hep B, Adol or Pedi 2000 Completed [facility] Dosage 00:00:00 [facility] Hep B, Adol or Pedi 2000 Completed [facility] Dosage 00:00:00 [facility] Hep B, Adol or Pedi 2000 Completed [facility] Dosage 00:00:00 [facility] Hep B, Adol or Pedi 2000 Completed [facility] Dosage 00:00:00 [facility] Hep B, Adol or Pedi 2000 Completed [facility] Dosage 00:00:00 [facility] Hep B, Adol or Pedi 2000 Completed [facility] Dosage 00:00:00 [facility] Hep B, Adol or Pedi 2000 Completed [facility] Dosage 00:00:00 [facility] Hep B, Adol or Pedi 2000 Completed [facility] Dosage 00:00:00 [facility] Hep B, Adol or Pedi 2000 Completed [facility] Dosage 00:00:00 [facility] Hep B, Adol or Pedi 2000 Completed [facility] Dosage 00:00:00 [facility] Hep B, Adol or Pedi 2000 Completed [facility] Dosage 00:00:00 [facility] Hep B, Adol or Pedi 2000 Completed [facility] Dosage 00:00:00 [facility] Hep B, Adol or Pedi 2000 Completed [facility] Dosage 00:00:00 [facility] Hep B, Adol or Pedi 2000 Completed [facility] Dosage 00:00:00 [facility] Hep B, Adol or Pedi 2000 Completed [facility] Dosage 00:00:00 [facility] Hep B, Adol or Pedi 2000 Completed [facility] Dosage 00:00:00 [facility] Hep B, Adol or Pedi 2000 Completed [facility] Dosage 00:00:00 [facility] Hep B, Adol or Pedi 2000 Completed [facility] Dosage 00:00:00 [facility] Hep B, Adol or Pedi 2000 Completed [facility] Dosage 00:00:00 [facility] Hep B, Adol or Pedi 2000 Completed [facility] Dosage 00:00:00 [facility] Hep B, Adol or Pedi 2000 Completed [facility] Dosage 00:00:00 [facility] Hep B, Adol or Pedi 2000 Completed [facility] Dosage 00:00:00 [facility] Hep B, Adol or Pedi 2000 Completed [facility] Dosage 00:00:00 [facility] Hep B, Adol or Pedi 2000 Completed [facility] Dosage 00:00:00 [facility] Hep B, Adol or Pedi 2000 Completed [facility] Dosage 00:00:00 [facility] Hep B, Adol or Pedi 2000 Completed [facility] Dosage 00:00:00 [facility] Hep B, Adol or Pedi 2000 Completed [facility] Dosage 00:00:00 [facility] Hep B, Adol or Pedi 2000 Completed [facility] Dosage 00:00:00 [facility] Hep B, Adol or Pedi 2000 Completed [facility] Dosage 00:00:00 [facility] Hep B, Adol or Pedi 2000 Completed [facility] Dosage 00:00:00 [facility] Hep B, Adol or Pedi 2000 Completed [facility] Dosage 00:00:00 [facility] Hep B, Adol or Pedi 2000 Completed [facility] Dosage 00:00:00 [facility] Hep B, Adol or Pedi 2000 Completed [facility] Dosage 00:00:00 [facility] Hep B, Adol or Pedi 2000 Completed [facility] Dosage 00:00:00 [facility] Hep B, Adol or Pedi 2000 Completed [facility] Dosage 00:00:00 [facility] Hep B, Adol or Pedi 2000 Completed [facility] Dosage 00:00:00 [facility] Hep B, Adol or Pedi 2000 Completed [facility] Dosage 00:00:00 [facility] Hep B, Adol or Pedi 2000 Completed [facility] Dosage 00:00:00 [facility] Hep B, Adol or Pedi 2000 Completed [facility] Dosage 00:00:00 [facility] Hep B, Adol or Pedi 2000 Completed [facility] Dosage 00:00:00 [facility] Hep B, Adol or Pedi 2000 Completed [facility] Dosage 00:00:00 [facility] Hep B, Adol or Pedi 2000 Completed [facility] Dosage 00:00:00 [facility] Hep B, Adol or Pedi 2000 Completed [facility] Dosage 00:00:00 [facility] Hep B, Adol or Pedi 2000 Completed [facility] Dosage 00:00:00 [facility] Hep B, Adol or Pedi 2000 Completed [facility] Dosage 00:00:00 [facility] Hep B, Adol or Pedi 2000 Completed [facility] Dosage 00:00:00 [facility] Hep B, Adol or Pedi 2000 Completed [facility] Dosage 00:00:00 [facility] Hep B, Adol or Pedi 2000 Completed [facility] Dosage 00:00:00 [facility] Hep B, Adol or Pedi 2000 Completed [facility] Dosage 00:00:00 [facility] Hep B, Adol or Pedi 2000 Completed [facility] Dosage 00:00:00 [facility] Hep B, Adol or Pedi 2000 Completed [facility] Dosage 00:00:00 [facility] Hep B, Adol or Pedi 2000 Completed [facility] Dosage 00:00:00 [facility] Hep B, Adol or Pedi 2000 Completed [facility] Dosage 00:00:00 [facility] Hep B, Adol or Pedi 2000 Completed [facility] Dosage 00:00:00 [facility] Hep B, Adol or Pedi 2000 Completed [facility] Dosage 00:00:00 [facility] Hep B, Adol or Pedi 2000 Completed [facility] Dosage 00:00:00 [facility] Hep B, Adol or Pedi 2000 Completed [facility] Dosage 00:00:00 [facility] Hep B, Adol or Pedi 2000 Completed [facility] Dosage 00:00:00 [facility] Hep B, Adol or Pedi 2000 Completed [facility] Dosage 00:00:00 [facility] Hep B, Adol or Pedi 2000 Completed [facility] Dosage 00:00:00 [facility] Hep B, Adol or Pedi 2000 Completed [facility] Dosage 00:00:00 [facility] Hep B, Adol or Pedi 2000 Completed [facility] Dosage 00:00:00 [facility] Hep B, Adol or Pedi 2000 Completed [facility] Dosage 00:00:00 [facility] Hep B, Adol or Pedi 2000 Completed [facility] Dosage 00:00:00 [facility] Hep B, Adol or Pedi 2000 Completed [facility] Dosage 00:00:00 [facility] Hep B, Adol or Pedi 2000 Completed [facility] Dosage 00:00:00 [facility] Hep B, Adol or Pedi 2000 Completed [facility] Dosage 00:00:00 [facility] Hep B, Adol or Pedi 2000 Completed [facility] Dosage 00:00:00 [facility] Hep B, Adol or Pedi 2000 Completed [facility] Dosage 00:00:00 [facility] Hep B, Adol or Pedi 2000 Completed [facility] Dosage 00:00:00 [facility] Hep B, Adol or Pedi 2000 Completed [facility] Dosage 00:00:00 [facility] Hep B, Adol or Pedi 2000 Completed [facility] Dosage 00:00:00 [facility] Hep B, Adol or Pedi 2000 Completed [facility] Dosage 00:00:00 [facility] Hep B, Adol or Pedi 2000 Completed [facility] Dosage 00:00:00 [facility] Hep B, Adol or Pedi 2000 Completed [facility] Dosage 00:00:00 [facility] Hep B, Adol or Pedi 2000 Completed [facility] Dosage 00:00:00 [facility] Hep B, Adol or Pedi 2000 Completed [facility] Dosage 00:00:00 [facility] Hep B, Adol or Pedi 2000 Completed [facility] Dosage 00:00:00 [facility] Hep B, Adol or Pedi 2000 Completed [facility] Dosage 00:00:00 [facility] Hep B, Adol or Pedi 2000 Completed [facility] Dosage 00:00:00 [facility] Hep B, Adol or Pedi 2000 Completed [facility] Dosage 00:00:00 [facility] Hep B, Adol or Pedi 2000 Completed [facility] Dosage 00:00:00 [facility] Hep B, Adol or Pedi 2000 Completed [facility] Dosage 00:00:00 [facility] Hep B, Adol or Pedi 2000 Completed [facility] Dosage 00:00:00 [facility] Hep B, Adol or Pedi 2000 Completed [facility] Dosage 00:00:00 [facility] Hep B, Adol or Pedi 2000 Completed [facility] Dosage 00:00:00 [facility] Hep B, Adol or Pedi 2000 Completed [facility] Dosage 00:00:00 [facility] Hep B, Adol or Pedi 2000 Completed [facility] Dosage 00:00:00 [facility] Hep B, Adol or Pedi 2000 Completed [facility] Dosage 00:00:00 [facility] Hep B, Adol or Pedi 2000 Completed [facility] Dosage 00:00:00 [facility] Hep B, Adol or Pedi 2000 Completed [facility] Dosage 00:00:00 [facility] Hep B, Adol or Pedi 2000 Completed [facility] Dosage 00:00:00 [facility] Hep B, Adol or Pedi 2000 Completed [facility] Dosage 00:00:00 [facility] Hep B, Adol or Pedi 2000 Completed [facility] Dosage 00:00:00 [facility] Hep B, Adol or Pedi 2000 Completed [facility] Dosage 00:00:00 [facility] Hep B, Adol or Pedi 2000 Completed [facility] Dosage 00:00:00 [facility] Hep B, Adol or Pedi 2000 Completed [facility] Dosage 00:00:00 [facility] Hep B, Adol or Pedi 2000 Completed [facility] Dosage 00:00:00 [facility] Hep B, Adol or Pedi 2000 Completed [facility] Dosage 00:00:00 [facility] Hep B, Adol or Pedi 2000 Completed [facility] Dosage 00:00:00 [facility] Hep B, Adol or Pedi 2000 Completed [facility] Dosage 00:00:00 [facility] Hep B, Adol or Pedi 2000 Completed [facility] Dosage 00:00:00 [facility] Hep B, Adol or Pedi 2000 Completed [facility] Dosage 00:00:00 [facility] Hep B, Adol or Pedi 2000 Completed [facility] Dosage 00:00:00 [facility] Hep B, Adol or Pedi 2000 Completed [facility] Dosage 00:00:00 [facility] Hep B, Adol or Pedi 2000 Completed [facility] Dosage 00:00:00 [facility] Hep B, Adol or Pedi 2000 Completed [facility] Dosage 00:00:00 [facility] Hep B, Adol or Pedi 2000 Completed [facility] Dosage 00:00:00 [facility] Hep B, Adol or Pedi 2000 Completed [facility] Dosage 00:00:00 [facility] Hep B, Adol or Pedi 2000 Completed [facility] Dosage 00:00:00 [facility] Hep B, Adol or Pedi 2000 Completed [facility] Dosage 00:00:00 [facility] Vital Signs Vital Name Observation Time Observation Value Comments Source Systolic blood 2022-11-04 14:15:00 144 mm[Hg] [facility] of pressure [facility] Diastolic blood 2022-11-04 14:15:00 97 mm[Hg] [facility] of pressure [facility] Heart rate 2022-11-04 14:15:00 118 /min [facility] Body temperature 2022-11-04 14:15:00 37.61 Bita [facility] Respiratory rate 2022-11-04 14:15:00 20 /min [facility] Body weight 2022-11-04 14:15:00 70.308 kg [facility] BMI 2022-11-04 14:15:00 [facility] 2022-11-04 14:15:00 100 /min [facility] Arterial blood by [facility] Pulse oximetry Branch Systolic blood 2022-10-27 21:28:00 110 mm[Hg] Univer [facility]ity of pressure [facility] Diastolic blood 2022-10-27 21:28:00 73 mm[Hg] [facility]ive [facility] of pressure [facility] Heart rate 2022-10-27 21:28:00 102 /min [facility] Body temperature 2022-10-27 21:28:00 36.72 Bita [facility] Respiratory rate 2022-10-27 21:28:00 17 /min Univ ersity [facility] Body height 2022-10-27 21:28:00 152.4 cm Universi ty [facility] Body weight 2022-10-27 21:28:00 72.757 kg Universi ty [facility] BMI 2022-10-27 21:28:00 31.33 kg/m2 [facility] Systolic blood 2022-10-21 19:24:00 119 mm[Hg] Univer sity of [facility] Diastolic blood 2022-10-21 19:24:00 76 mm[Hg] Unive rsity of pressure [facility] Heart rate 2022-10-21 19:24:00 101 /min [facility] Body temperature 2022-10-21 19:24:00 36.67 Bita [facility] Body height 2022-10-21 19:24:00 152.4 cm [facility] Body weight 2022-10-21 19:24:00 72.122 kg [facility] BMI 2022-10-21 19:24:00 31.05 kg/m2 [facility] Systolic blood 2022-09-24 17:46:00 111 mm[Hg] Univer [facility]ity [facility] Diastolic blood 2022-09-24 17:46:00 74 mm[Hg] Unive rsity of pressure [facility] Heart rate 2022-09-24 17:46:00 87 /min [facility] Body temperature 2022-09-24 17:46:00 36.83 Bita [facility] Respiratory rate 2022-09-24 17:46:00 18 /min [facility] Body height 2022-09-24 17:46:00 152.4 cm [facility] Body weight 2022-09-24 17:46:00 73.211 kg [facility] BMI 2022-09-24 17:46:00 31.52 kg/m2 [facility] Systolic blood 2022-09-09 18:30:00 112 mm[Hg] Univer [facility]ity [facility] Diastolic blood 2022-09-09 18:30:00 74 mm[Hg] Unive rsity of pressure [facility] Heart rate 2022-09-09 12:30:00 70 /min [facility] Body temperature 2022-09-09 12:30:00 36.11 Bita [facility] Respiratory rate 2022-09-09 12:30:00 18 /min [facility] Oxygen saturation in 2022-09-09 12:30:00 99 /min [facility] of Arterial blood by [facility] Pulse oximetry Branch Body height 2022-09-08 09:30:00 152.4 cm 5' [facility] Body weight 2022-09-08 09:30:00 81.738 kg 180.2lb [facility] BMI 2022-09-08 09:30:00 35.19 kg/m2 [facility] Systolic blood 2022-09-05 09:15:00 125 mm[Hg] Un[facility]ity [facility] Diastolic blood 2022-09-05 09:15:00 77 mm[Hg] Unive rsity of [facility] Heart rate 2022-09-05 09:15:00 77 /min [facility] Body temperature 2022-09-05 09:15:00 37 Bita [facility] Respiratory rate 2022-09-05 09:15:00 16 /min [facility] Oxygen saturation in 2022-09-05 09:15:00 99 /min [facility] Arterial blood by [facility] Pulse oximetry Branch Body height 2022-09-05 07:19:00 152.4 cm [facility] Body weight 2022-09-05 07:19:00 83.144 kg 183.3lb [facility] BMI 2022-09-05 07:19:00 35.80 kg/m2 [facility] Systolic blood 2022-09-03 16:36:00 112 mm[Hg] Univer [facility]ity [facility] Diastolic blood 2022-09-03 16:36:00 71 mm[Hg] Unive rsity of pressure [facility] Heart rate 2022-09-03 16:36:00 90 /min [facility] Body temperature 2022-09-03 16:36:00 36.83 Bita [facility] Respiratory rate 2022-09-03 16:36:00 18 /min [facility] Body height 2022-09-03 16:36:00 152.4 cm [facility] Body weight 2022-09-03 16:36:00 82.101 kg [facility] BMI 2022-09-03 16:36:00 35.35 kg/m2 [facility] Heart rate 2022-09-02 05:45:00 70 /min [facility] Oxygen saturation in 2022-09-02 05:45:00 99 /min [facility] Arterial blood by [facility] Pulse oximetry Branch Systolic blood 2022-09-02 04:39:00 133 mm[Hg] Univer sity of pressure [facility] Diastolic blood 2022-09-02 04:39:00 80 mm[Hg] Unive rsity of pressure [facility] Body temperature 2022-09-02 04:39:00 36.61 Bita [facility] Respiratory rate 2022-09-02 04:39:00 18 /min [facility] Body height 2022-09-02 04:39:00 152.4 cm [facility] Body weight 2022-09-02 04:39:00 82.736 kg [facility] BMI 2022-09-02 04:39:00 35.62 kg/m2 [facility] Systolic blood 2022-08-26 20:38:00 111 mm[Hg] Univer [facility]ity of [facility] Diastolic blood 2022-08-26 20:38:00 74 mm[Hg] Unive rsity of [facility] Heart rate 2022-08-26 20:38:00 95 /min [facility] Body temperature 2022-08-26 20:38:00 36.72 Bita [facility] Respiratory rate 2022-08-26 20:38:00 18 /min [facility] Body height 2022-08-26 20:38:00 152.4 cm [facility] Body weight 2022-08-26 20:38:00 82.192 kg [facility] BMI 2022-08-26 20:38:00 35.39 kg/m2 [facility] Systolic blood 2022-08-12 18:43:00 115 mm[Hg] Univer [facility]ity [facility] Diastolic blood 2022-08-12 18:43:00 72 mm[Hg] Unive rsity of [facility] Heart rate 2022-08-12 18:43:00 93 /min [facility] Body temperature 2022-08-12 18:43:00 36.83 Bita [facility] Body height 2022-08-12 18:43:00 152.4 cm [facility] Body weight 2022-08-12 18:43:00 81.012 kg [facility] BMI 2022-08-12 18:43:00 34.88 kg/m2 [facility] Heart rate 2022-08-06 23:30:00 90 /min [facility] Oxygen saturation in 2022-08-06 23:30:00 99 /min University Arterial blood by [facility] Pulse oximetry Branch Systolic blood 2022-08-06 22:40:00 116 mm[Hg] Univer sity of pressure [facility] Diastolic blood 2022-08-06 22:40:00 63 mm[Hg] Unive rsity of pressure [facility] Body temperature 2022-08-06 22:40:00 37 Bita [facility] Respiratory rate 2022-08-06 22:40:00 18 /min [facility] Body height 2022-08-06 22:40:00 152.4 cm [facility] Body weight 2022-08-06 22:40:00 81.466 kg [facility] BMI 2022-08-06 22:40:00 35.08 kg/m2 [facility] Systolic blood 2022-07-29 18:20:00 115 mm[Hg] Univer [facility]ity of [facility] Diastolic blood 2022-07-29 18:20:00 73 mm[Hg] Unive rsity of pressure [facility] Heart rate 2022-07-29 18:20:00 80 /min [facility] Body temperature 2022-07-29 18:20:00 36.94 Bita [facility] Respiratory rate 2022-07-29 18:20:00 18 /min [facility] Body height 2022-07-29 18:20:00 152.4 cm [facility] Body weight 2022-07-29 18:20:00 81.375 kg [facility] BMI 2022-07-29 18:20:00 35.04 kg/m2 [facility] height 2022-07-14 14:00:00 60 [in_i] Common [facility] weight 2022-07-14 14:00:00 169 [lb_av] Common [facility] bmi 2022-07-14 14:00:00 33 kg/m2 [facility] Systolic blood 2022-07-08 19:47:00 113 mm[Hg] Univer sity of pressure [facility] Diastolic blood 2022-07-08 19:47:00 75 mm[Hg] Unive rsity of pressure [facility] Heart rate 2022-07-08 19:47:00 88 /min [facility] Body temperature 2022-07-08 19:47:00 36.72 Bita [facility] Respiratory rate 2022-07-08 19:47:00 18 /min [facility] Body height 2022-07-08 19:47:00 152.4 cm [facility] Body weight 2022-07-08 19:47:00 80.74 kg [facility] BMI 2022-07-08 19:47:00 34.76 kg/m2 [facility] Systolic blood 2022-07-01 18:20:00 108 mm[Hg] Univer sity of pressure [facility] Diastolic blood 2022-07-01 18:20:00 71 mm[Hg] Unive rsity of pressure [facility] Heart rate 2022-07-01 18:20:00 91 /min [facility] Body temperature 2022-07-01 18:20:00 37 Bita [facility] Respiratory rate 2022-07-01 18:20:00 18 /min [facility] Body height 2022-07-01 18:20:00 152.4 cm [facility] Body weight 2022-07-01 18:20:00 80.457 kg [facility] BMI 2022-07-01 18:20:00 34.64 kg/m2 [facility] Systolic blood 2022-06-23 15:15:00 109 mm[Hg] Univer [facility]ity of [facility] Diastolic blood 2022-06-23 15:15:00 70 mm[Hg] Unive rsity of pressure [facility] Heart rate 2022-06-23 15:15:00 98 /min [facility] Body temperature 2022-06-23 15:15:00 36.61 Bita Univ [facility] of [facility] Respiratory rate 2022-06-23 15:15:00 18 /min [facility] Body height 2022-06-23 15:15:00 152.4 cm [facility] Body weight 2022-06-23 15:15:00 79.652 kg [facility] BMI 2022-06-23 15:15:00 34.29 kg/m2 [facility] Body temperature 2022-06-12 09:24:00 36.78 Bita [facility] Systolic blood 2022-06-12 08:16:00 121 mm[Hg] Univer sity of [facility] Diastolic blood 2022-06-12 08:16:00 73 mm[Hg] Unive rsity of [facility] Heart rate 2022-06-12 08:16:00 135 /min [facility] Respiratory rate 2022-06-12 08:16:00 20 /min [facility] Body weight 2022-06-12 08:16:00 77.111 kg [facility] BMI 2022-06-12 08:16:00 33.20 kg/m2 [facility] Oxygen saturation in 2022-06-12 08:16:00 99 /min [facility] Arterial blood by [facility] Pulse oximetry Branch height 2022-06-12 09:20:00 60 [in_i] Common [facility] weight 2022-06-12 09:20:00 169 [lb_av] Common [facility] bmi 2022-06-12 09:20:00 33 kg/m2 Common [facility] Systolic blood 2022-05-13 18:10:00 118 mm[Hg] Univer sity of pressure [facility] Diastolic blood 2022-05-13 18:10:00 73 mm[Hg] Unive rsity of pressure [facility] Heart rate 2022-05-13 18:10:00 88 /min [facility] Body temperature 2022-05-13 18:10:00 36.56 Bita [facility] Body height 2022-05-13 18:10:00 152.4 cm [facility] Body weight 2022-05-13 18:10:00 78.654 kg [facility] BMI 2022-05-13 18:10:00 33.86 kg/m2 [facility] Systolic blood 2022-04-24 18:08:00 113 mm[Hg] Univer sity of pressure [facility] Diastolic blood 2022-04-24 18:08:00 69 mm[Hg] Unive rsity of pressure [facility] Heart rate 2022-04-24 18:08:00 88 /min [facility] of [facility] Body temperature 2022-04-24 18:08:00 36.78 Bita [facility] Body height 2022-04-24 18:08:00 152.4 cm [facility] Body weight 2022-04-24 18:08:00 77.565 kg [facility] BMI 2022-04-24 18:08:00 33.40 kg/m2 [facility] Systolic blood 2022-04-17 16:16:00 119 mm[Hg] Univer sity of pressure [facility] Diastolic blood 2022-04-17 16:16:00 79 mm[Hg] Unive rsity of pressure [facility] Heart rate 2022-04-17 16:16:00 89 /min [facility] Body temperature 2022-04-17 16:16:00 37.11 Bita Univ [facility] of [facility] Respiratory rate 2022-04-17 16:16:00 18 /min Univ ersity [facility] Body height 2022-04-17 16:16:00 152.4 cm Universi ty [facility] Body weight 2022-04-17 16:16:00 76.658 kg Universi ty [facility] BMI 2022-04-17 16:16:00 33.01 kg/m2 Universi ty [facility] height 2022-04-10 16:40:00 60 [in_i] [facility] weight 2022-04-10 16:40:00 168.2 [lb_av] [facility] temperature 2022-04-10 16:40:00 98.1 [degF] [facility] bmi 2022-04-10 16:40:00 32.85 kg/m2 [facility] oximetry 2022-04-10 16:40:00 100 % [facility] respiratory rate 2022-04-10 16:40:00 18 /min Comm on [facility] blood pressure 2022-04-10 16:40:00 114 mm[Hg] Common [facility] systolic [facility] blood pressure 2022-04-10 16:40:00 76 mm[Hg] [facility] diastolic [facility] Systolic blood 2022-03-20 16:25:00 113 mm[Hg] Univer sity of pressure [facility] Diastolic blood 2022-03-20 16:25:00 75 mm[Hg] Unive rsity of [facility] Heart rate 2022-03-20 16:25:00 71 /min Universi ty [facility] Body temperature 2022-03-20 16:25:00 36.61 Bita Univ ersity [facility] Body height 2022-03-20 16:25:00 152.4 cm [facility] Body weight 2022-03-20 16:25:00 75.025 kg Universi ty [facility] BMI 2022-03-20 16:25:00 32.30 kg/m2 Universi ty [facility] Systolic blood 2022-02-18 15:41:00 123 mm[Hg] Univer sity of [facility] Diastolic blood 2022-02-18 15:41:00 80 mm[Hg] Unive rsity of [facility] Heart rate 2022-02-18 15:41:00 83 /min Universi ty [facility] Body temperature 2022-02-18 15:41:00 36.89 [facility] 2022-02-18 15:41:00 18 /min [facility] Body height 2022-02-18 15:41:00 152.4 cm Universi ty [facility] Body weight 2022-02-18 15:41:00 73.029 kg Universi [facility] BMI 2022-02-18 15:41:00 31.44 kg/m2 [facility] height 2022-01-13 14:20:00 60 [in_i] [facility] weight 2022-01-13 14:20:00 161 [lb_av] [facility] temperature 2022-01-13 14:20:00 97.1 [degF] [facility] bmi 2022-01-13 14:20:00 31.44 kg/m2 [facility] oximetry 2022-01-13 14:20:00 98 % [facility] respiratory rate 2022-01-13 14:20:00 20 /min Comm [facility] blood pressure 2022-01-13 14:20:00 118 mm[Hg] Common [facility] - systolic [facility] blood pressure 2022-01-13 14:20:00 74 mm[Hg] [facility] height 2021-12-25 16:00:00 60 [in_i] Common [facility] weight 2021-12-25 16:00:00 168.6 [lb_av] [facility] bmi 2021-12-25 16:00:00 32.92 kg/m2 [facility] height 2021-12-13 13:00:00 60 [in_i] [facility] weight 2021-12-13 13:00:00 168.6 [lb_av] [facility] temperature 2021-12-13 13:00:00 98.1 [degF] [facility] bmi 2021-12-13 13:00:00 32.92 kg/m2 [facility] oximetry 2021-12-13 13:00:00 99 % [facility] respiratory rate 2021-12-13 13:00:00 17 /min Comm on [facility] blood pressure 2021-12-13 13:00:00 129 mm[Hg] [facility] systolic [facility] blood pressure 2021-12-13 13:00:00 82 mm[Hg] [facility] diastolic [facility] height 2021-11-12 14:20:00 60 [in_i] [facility] weight 2021-11-12 14:20:00 162 [lb_av] [facility] bmi 2021-11-12 14:20:00 31.64 kg/m2 [facility] height 2021-10-15 11:40:00 60 [in_i] [facility] weight 2021-10-15 11:40:00 162 [lb_av] [facility] bmi 2021-10-15 11:40:00 31.64 kg/m2 [facility] height 2021-09-02 11:40:00 60 [in_i] [facility] weight 2021-09-02 11:40:00 162 [lb_av] [facility] bmi 2021-09-02 11:40:00 31.64 kg/m2 [facility] Systolic blood 2021-06-27 16:11:00 114 mm[Hg] Univer sity of pressure [facility] Diastolic blood 2021-06-27 16:11:00 78 mm[Hg] Unive rsity of pressure [facility] Heart rate 2021-06-27 16:11:00 68 /min [facility] Body temperature 2021-06-27 16:11:00 36.78 Bita [facility] Respiratory rate 2021-06-27 16:11:00 18 /min Univ ersity of [facility] Body height 2021-06-27 16:11:00 152.4 cm [facility] Body weight 2021-06-27 16:11:00 79.379 kg [facility] BMI 2021-06-27 16:11:00 34.18 kg/m2 [facility] height 2021-04-23 16:10:00 60 [in_i] [facility] weight 2021-04-23 16:10:00 162 [lb_av] [facility] temperature 2021-04-23 16:10:00 98 [degF] [facility] bmi 2021-04-23 16:10:00 31.64 kg/m2 [facility] Systolic blood 2021-02-21 06:04:00 123 mm[Hg] Univer sity of [facility] Diastolic blood 2021-02-21 06:04:00 65 mm[Hg] Unive rsity of pressure [facility] Heart rate 2021-02-21 06:04:00 80 /min [facility]i ty [facility] Respiratory rate 2021-02-21 06:04:00 22 /min Univ ersity [facility] Oxygen saturation in 2021-02-21 06:04:00 99 /min University Arterial blood by [facility] Pulse oximetry Branch Body temperature 2021-02-21 01:29:00 37.28 Bita [facility] ers[facility] Body height 2021-02-21 01:29:00 162.6 cm [facility]i [facility] Body weight 2021-02-21 01:29:00 75.751 kg [facility] BMI 2021-02-21 01:29:00 28.67 kg/m2 [facility] Systolic blood 2020-09-18 17:10:00 117 mm[Hg] Univer sity of [facility] Diastolic blood 2020-09-18 17:10:00 78 mm[Hg] Unive rsity of [facility] Heart rate 2020-09-18 17:10:00 80 /min [facility] Respiratory rate 2020-09-18 17:10:00 18 /min [facility] Body height 2020-09-18 17:10:00 152.4 cm [facility] Body weight 2020-09-18 17:10:00 78.109 kg [facility] BMI 2020-09-18 17:10:00 33.63 kg/m2 [facility] Systolic blood 2020-06-20 21:05:00 102 mm[Hg] Univer sity of [facility] Diastolic blood 2020-06-20 21:05:00 71 mm[Hg] Unive rsity of [facility] Heart rate 2020-06-20 21:05:00 66 /min [facility] Body temperature 2020-06-20 21:05:00 36.78 Bita [facility] Respiratory rate 2020-06-20 21:05:00 18 /min [facility] Body height 2020-06-20 21:05:00 152.4 cm [facility] Body weight 2020-06-20 21:05:00 77.565 kg [facility] BMI 2020-06-20 21:05:00 33.40 kg/m2 [facility] Systolic blood 2020-03-21 18:00:00 117 mm[Hg] Univer sity of [facility] Diastolic blood 2020-03-21 18:00:00 78 mm[Hg] Unive rsity of [facility] Heart rate 2020-03-21 18:00:00 89 /min [facility] Body temperature 2020-03-21 18:00:00 37 Bita [facility] Respiratory rate 2020-03-21 18:00:00 18 /min Univ ersity of [facility] Oxygen saturation in 2020-03-21 18:00:00 100 /min University of Arterial blood by [facility] Pulse oximetry Branch Body height 2020-03-19 17:41:00 152.4 cm [facility] Body weight 2020-03-19 17:41:00 82.373 kg [facility] BMI 2020-03-19 17:41:00 35.47 kg/m2 [facility] Systolic blood 2020-03-12 22:13:00 122 mm[Hg] Univer sity of [facility] Diastolic blood 2020-03-12 22:13:00 68 mm[Hg] Unive rsity of [facility] Heart rate 2020-03-12 22:13:00 95 /min [facility] Body temperature 2020-03-12 22:13:00 36.67 Bita [facility] Respiratory rate 2020-03-12 22:13:00 18 /min [facility] Body height 2020-03-12 22:13:00 157.5 cm [facility] Body weight 2020-03-12 22:13:00 82.192 kg [facility] BMI 2020-03-12 22:13:00 33.14 kg/m2 [facility] Oxygen saturation in 2020-03-12 22:13:00 98 /min University of Arterial blood by [facility] Pulse oximetry Branch Systolic blood 2020-02-27 20:43:00 112 mm[Hg] Univer sity of [facility] Diastolic blood 2020-02-27 20:43:00 71 mm[Hg] Unive rsity of [facility] Heart rate 2020-02-27 20:43:00 96 /min [facility] Body temperature 2020-02-27 20:43:00 36.89 Bita Univ ersity of [facility] Respiratory rate 2020-02-27 20:43:00 18 /min Univ [facility] Body height 2020-02-27 20:43:00 157.5 cm [facility] Body weight 2020-02-27 20:43:00 80.74 kg [facility] BMI 2020-02-27 20:43:00 32.56 kg/m2 [facility] Systolic blood 2020-02-06 20:27:00 114 mm[Hg] Univer sity of [facility] Diastolic blood 2020-02-06 20:27:00 68 mm[Hg] Unive rsity of [facility] Heart rate 2020-02-06 20:27:00 101 /min [facility] Body temperature 2020-02-06 20:27:00 36.5 Bita [facility] Respiratory rate 2020-02-06 20:27:00 18 /min [facility] Body height 2020-02-06 20:27:00 152.4 cm [facility] Body weight 2020-02-06 20:27:00 79.379 kg [facility] BMI 2020-02-06 20:27:00 34.18 kg/m2 [facility] Systolic blood 2020-02-02 20:28:00 111 mm[Hg] Univer sity of [facility] Diastolic blood 2020-02-02 20:28:00 68 mm[Hg] Unive rsity of [facility] Heart rate 2020-02-02 20:28:00 93 /min [facility] Body temperature 2020-02-02 20:28:00 36.94 Bita [facility] Respiratory rate 2020-02-02 20:28:00 18 /min [facility] Body height 2020-02-02 20:28:00 157.5 cm [facility] Body weight 2020-02-02 20:28:00 78.472 kg [facility] BMI 2020-02-02 20:28:00 31.64 kg/m2 [facility] Systolic blood 2020-01-29 11:01:00 116 mm[Hg] [facility] Diastolic blood 2020-01-29 11:01:00 68 mm[Hg] [facility] Heart rate 2020-01-29 11:01:00 113 /min [facility] Respiratory rate 2020-01-29 11:01:00 18 /min [facility] Body height 2020-01-29 11:01:00 152.4 cm [facility] Body weight 2020-01-29 11:01:00 79.379 kg [facility] BMI 2020-01-29 11:01:00 34.18 kg/m2 [facility] of [facility] Oxygen saturation in 2020-01-29 11:01:00 98 /min University of Arterial blood by [facility] Pulse oximetry Branch Systolic blood 2020-01-24 19:08:00 107 mm[Hg] Univer sity of pressure [facility] Diastolic blood 2020-01-24 19:08:00 67 mm[Hg] Unive rsity of pressure [facility] Heart rate 2020-01-24 19:08:00 95 /min Universi [facility] of [facility] Body temperature 2020-01-24 19:08:00 36.72 Bita [facility] Respiratory rate 2020-01-24 19:08:00 18 /min [facility] Body height 2020-01-24 19:08:00 157.5 cm Universi [facility] of [facility] Body weight 2020-01-24 19:08:00 78.2 kg Universi [facility] of [facility] BMI 2020-01-24 19:08:00 31.53 kg/m2 [facility] of [facility] Systolic blood 2020-01-20 16:30:00 110 mm[Hg] Univer sity of pressure [facility] Diastolic blood 2020-01-20 16:30:00 66 mm[Hg] Unive rsity of pressure [facility] Heart rate 2020-01-20 16:30:00 94 /min [facility] Body temperature 2020-01-20 16:30:00 36.67 Bita [facility] Respiratory rate 2020-01-20 16:30:00 16 /min Univ ersity of [facility] Body height 2020-01-20 16:30:00 152.4 cm [facility]i [facility] Body weight 2020-01-20 16:30:00 76.839 kg [facility] BMI 2020-01-20 16:30:00 33.08 kg/m2 [facility] Systolic blood 2020-01-18 20:00:00 108 mm[Hg] Univer sity of pressure [facility] Diastolic blood 2020-01-18 20:00:00 55 mm[Hg] [facility] Heart rate 2020-01-18 20:00:00 107 /min [facility] Respiratory rate 2020-01-18 20:00:00 18 /min [facility] Oxygen saturation in 2020-01-18 20:00:00 98 /min [facility] of Arterial blood by [facility] Pulse oximetry Branch Body temperature 2020-01-18 18:00:00 36.56 Bita [facility] Body height 2020-01-18 00:55:00 157.5 cm [facility] Body weight 2020-01-18 00:55:00 77.111 kg [facility] BMI 2020-01-18 00:55:00 31.09 kg/m2 [facility] Systolic blood 2020-01-10 00:00:00 120 mm[Hg] [facility] Diastolic blood 2020-01-10 00:00:00 73 mm[Hg] [facility] Heart rate 2020-01-10 00:00:00 89 /min [facility] Body temperature 2020-01-09 23:20:00 36.67 Ibta [facility] Respiratory rate 2020-01-09 23:20:00 16 /min [facility] Body height 2020-01-09 23:20:00 157.5 cm [facility] Body weight 2020-01-09 23:20:00 77.565 kg [facility] BMI 2020-01-09 23:20:00 31.28 kg/m2 [facility] Oxygen saturation in 2020-01-09 23:20:00 98 /min [facility] of Arterial blood by [facility] Pulse oximetry Branch Systolic blood 2020-01-09 22:17:00 110 mm[Hg] [facility] Diastolic blood 2020-01-09 22:17:00 74 mm[Hg] [facility] Heart rate 2020-01-09 22:17:00 93 /min [facility] Body temperature 2020-01-09 22:17:00 36.78 Bita [facility] Respiratory rate 2020-01-09 22:17:00 18 /min Univ [facility] Body height 2020-01-09 22:17:00 157.5 cm [facility] Body weight 2020-01-09 22:17:00 77.565 kg [facility] BMI 2020-01-09 22:17:00 31.28 kg/m2 [facility] of [facility] Systolic blood 2019-12-19 22:44:00 111 mm[Hg] [facility] Diastolic blood 2019-12-19 22:44:00 73 mm[Hg] Unive rsity of pressure [facility] Heart rate 2019-12-19 22:44:00 88 /min Universi ty of [facility] Body temperature 2019-12-19 22:44:00 37.06 Bita [facility] ersity of [facility] Respiratory rate 2019-12-19 22:44:00 18 /min Univ ersity of [facility] Body height 2019-12-19 22:44:00 157.5 cm [facility] [place] [facility] Body weight 2019-12-19 22:44:00 76.204 kg [facility] BMI 2019-12-19 22:44:00 30.73 kg/m2 [facility] of [facility] Systolic blood 2019-07-29 20:33:00 113 mm[Hg] Univer [facility]ity of pressure [facility] Diastolic blood 2019-07-29 20:33:00 77 mm[Hg] Unive rsity of pressure [facility] Heart rate 2019-07-29 20:33:00 83 /min Universi ty of [facility] Body temperature 2019-07-29 20:33:00 36.72 Bita [facility] Respiratory rate 2019-07-29 20:33:00 18 /min Univ [facility] of [facility] Body height 2019-07-29 20:33:00 152.4 cm Universi [facility] of [facility] Body weight 2019-07-29 20:33:00 73.483 kg [facility] of [facility] BMI 2019-07-29 20:33:00 31.64 kg/m2 [facility] Procedures Procedure Date / Time Performing Clinician Source Performed POCT TEST 2022-11-04 14:27:00 [facility] RAPID INFLUENZA A/B 2022-11-04 14:25:00 So Kahn [facility] CONSENT/REFUSAL FOR 2022-11-04 14:11:11 Doctor Miriam [facility] DIAGNOSIS AND TREATMENT [place] [facility] POCT TEST 2022-10-27 21:29:00 Gustabo Brock [facility] CBC WITH DIFF 2022-09-09 09:28:00 Gustabo Brock [place] [facility] CENTRAL NEURAXIAL BLOCK 2022-09-08 17:25:46 Dayton Ferris [facility] CBC WITH DIFF 2022-09-08 10:03:00 Gustabo Brock [place] [facility] HEPATITIS B SURFACE 2022-09-08 10:03:00 Gustabo Brock [facility] ANTIGEN [facility] ADC OR JOSUE ONLY - RPR 2022-09-08 10:03:00 [facility]/2 AG-AB WITH REFLEX 2022-09-08 10:03:00 Gustabo Brock Un [facility] HB ABO GROUPING 2022-09-08 09:55:00 Gustabo Brock [place] [facility] RHO (D) IMMUNE GLOBULIN 2022-09-08 09:55:00 Gustabo Brock [facility] CONSENT/REFUSAL FOR 2022-09-05 06:44:04 Doctor Miriam [facility] DIAGNOSIS AND TREATMENT [place] [facility] POCT URINALYSIS W/O 2022-09-03 00:00:00 Gustabo Brock [facility] SPECIFIC GRAVITY [facility] ADC ONLY - FERN TEST 2022-09-02 05:16:00 Gustabo Brock [facility] NOTICE OF PRIVACY 2022-09-02 04:21:36 Doctor Miriam, [facility] PRACTICES [place] [facility] >14 WEEKS US 2022-08-26 21:14:28 Gustabo Brock [facility] DSU PRE-OP 2022-08-26 05:01:00 Doctor Miriam, [facility] [place] [facility] POCT URINALYSIS W/O 2022-08-26 00:00:00 Gustabo Brock [facility] [place] [facility] POCT URINALYSIS W/O 2022-08-12 00:00:00 Gustabo Brock [facility] [place] [facility] POCT URINALYSIS W/O 2022-07-29 18:32:00 [place] Ela [facility] [place] [facility] POCT URINALYSIS W/O 2022-07-08 00:00:00 Gustabo Brock [facility] [place] [facility] POCT URINALYSIS W/O 2022-06-23 00:00:00 Gustabo Brock [facility] [place] [facility] RAPID STREP SCREEN FOR 2022-06-12 08:23:00 Vandana Narayanan Un [facility] GROUP A Medical Branch COVID-19 (ID NOW RAPID 2022-06-12 08:23:00 Vandana Narayanan Un [facility] TESTING) Medical Branch NOTICE OF PRIVACY 2022-06-12 08:01:55 Doctor Miriam, [facility] PRACTICES [place] [facility] CONSENT/REFUSAL FOR 2022-06-12 08:00:12 Doctor Miriam [facility] DIAGNOSIS AND TREATMENT [place] [facility] POCT URINALYSIS W/O 2022-04-24 00:00:00 Gustabo Brock Universi ty [facility] SPECIFIC GRAVITY Medical Branch POCT URINALYSIS W/O 2022-04-17 00:00:00 Delmy Gustaboperlita Kaur Universi ty [facility] SPECIFIC GRAVITY Medical Branch INSURANCE CORRESPONDENCE 2022-03-20 05:01:00 Doctor Miriam, [facility] [place] [facility] POCT URINALYSIS W/O 2022-03-20 00:00:00 Gustabo Brock Universi ty [facility] SPECIFIC GRAVITY Medical Branch <14 WEEKS US 2022-02-18 16:26:52 Gustabo Brock [facility] LIMITED Medical Branch CONSENT/REFUSAL FOR 2022-02-18 15:12:57 Doctor Miriam [facility] DIAGNOSIS AND TREATMENT [place] [facility] ASSIGNMENT OF BENEFITS 2022-02-18 15:12:44 Doctor Miriam, [facility] [place] [facility] POCT TEST 2022-02-18 00:00:00 Gustabo Brock [facility] POCT URINALYSIS W/O 2022-02-18 00:00:00 Gustabo Brock [facility] SPECIFIC GRAVITY [facility] Branch INSURANCE CORRESPONDENCE 2021-07-12 05:01:00 Doctor Miriam, [facility] CONSENT FOR CONTRACEPTION 2021-06-27 05:01:00 Doctor Diamondssmike, [facility] XR RIBS 4+ VW LEFT 2021-02-21 05:47:49 Elsa Car [facility] D-DIMER 2021-02-21 04:22:00 Elsa Car [facility] N-TERMINAL PRO-BNP 2021-02-21 04:22:00 Elsa Car [facility] POCT TEST 2021-02-21 01:40:00 Justin Swanson [facility] URINALYSIS 2021-02-21 01:35:00 Justin Swanson [facility] NOTICE OF PRIVACY 2021-02-21 01:20:16 Doctor Miriam, [facility] PRACTICES [facility] CONSENT/REFUSAL FOR 2021-02-21 01:19:59 Doctor Miriam, [facility] DIAGNOSIS AND TREATMENT [facility] CBC WITH DIFFERENTIAL 2020-03-21 05:53:00 Gustabo Brock [facility] VENOUS CORD GAS 2020-03-20 14:35:00 Gustabo Brock [place] [facility] CORONAVIRUS COVID-19 2020-03-19 18:29:00 Gustabo Brock [facility] TESTING [facility] CBC WITH DIFFERENTIAL 2020-03-19 18:28:00 Gustabo Brock [facility] HEPATITIS B SURFACE 2020-03-19 18:28:00 Gustabo Brock [facility] ANTIGEN [facility] ADC OR JOSUE ONLY - RPR 2020-03-19 18:28:00 Gust[facility] HIV 1/2 AG-AB WITH REFLEX 2020-03-19 18:28:00 Gustabo Brock [facility] HB ABO GROUPING 2020-03-19 18:20:00 Gustabo Brock [place] [facility] RHO (D) IMMUNE GLOBULIN 2020-03-19 18:20:00 Gustabo Brock [facility] CONSENT/REFUSAL FOR 2020-03-19 17:28:15 Doctor Unamarly, [facility] DIAGNOSIS AND TREATMENT [place] [facility] ASSIGNMENT OF BENEFITS 2020-03-19 17:28:01 Doctor Unassigned, [facility] [place] [facility] CONSENT/REFUSAL FOR 2020-03-12 22:02:35 Doctor Unassmike, [facility] DIAGNOSIS AND TREATMENT [place] [facility] ASSIGNMENT OF BENEFITS 2020-03-12 22:02:23 Doctor Unassmike, [facility] Name [facility] [place] GLUCOSE 1 HOUR POST 2020-02-27 20:28:00 Gustabo Brock [facility] CBC WITH DIFFERENTIAL 2020-02-27 20:28:00 Gustabo Brock [facility] DSU PRE-OP 2020-02-27 05:01:00 Doctor Miriam, [facility] Name [facility] [place] DISABILITY/FMLA 2020-02-16 05:01:00 Doctor Miriam, [facility] Name [facility] [place] NON-STRESS TEST 2020-02-06 21:07:03 Gustabo Brock [facility] POCT URINALYSIS W/O 2020-02-06 00:00:00 Gustabo Brock [facility] NON-STRESS TEST 2020-02-03 13:49:53 Gustabo Brock [facility] ADC ONLY - FERN TEST 2020-01-29 13:38:00 Carl Delgado [facility] NOTICE OF PRIVACY 2020-01-29 10:22:07 Doctor Miriam, [facility] PRACTICES [place] [facility] POCT URINALYSIS W/O 2020-01-24 00:00:00 Gustabo Brock [facility] GRAVITY [facility] POCT URINALYSIS W/O 2020-01-20 00:00:00 Ela Raphael [facility] SPECIFIC GRAVITY Medical Branch SECOND AND THIRD TRIMESTER 2020-01-18 16:30:00 [facility] HB ABO GROUPING 2020-01-18 05:37:00 Morris [facility] CBC WITH DIFFERENTIAL 2020-01-17 20:37:[address] [facility] ABO GROUP[facility] 2020-01-17 20:35:00 Gustabo Brock [facility] US PELVIS > 14 2020-01-17 19:53:32 Gustabo Brock [facility] WEEKS [facility] URINALYSIS 2020-01-17 17:58:00 Gustabo Brock [facility] ADC ONLY - FERN TEST 2020-01-17 17:58:00 Gustabo Brock [facility] GC & CHLAMYDIA AMPLIFIED 2020-01-17 17:58:00 Gustabo Brock [facility] ASSAY [facility] CONSENT/REFUSAL FOR 2020-01-17 17:29:40 Doctor Unassigned, [facility] DIAGNOSIS AND TREATMENT [place] [facility] ASSIGNMENT OF BENEFITS 2020-01-17 17:29:28 Doctor Unassigned, [facility] [place] [facility] AMYLASE 2020-01-09 23:19:00 Gustabo Brock [facility] LIPASE 2020-01-09 23:19:00 Gustabo Brock [facility] COMP. METABOLIC PANEL 2020-01-09 23:19:00 Gustabo Brock [facility] ([id number]) [facility] [place] CBC WITH DIFFERENTIAL 2020-01-09 23:19:00 Gustabo Brock [facility] URINALYSIS 2020-01-09 23:19:00 Gustabo Brock [facility] CONSENT/REFUSAL FOR 2020-01-09 22:45:36 [facility] DIAGNOSIS AND TREATMENT [place] [facility] ASSIGNMENT OF BENEFITS 2020-01-09 22:45:24 Doctor Unassigned, [facility] [place] [facility] ASSIGNMENT OF BENEFITS 2019-12-19 22:23:27 Doctor Unassigned, [facility] [place] [facility] POCT URINALYSIS W/O 2019-12-19 00:00:00 Gustabo Brock [facility] SPECIFIC GRAVITY [facility] NO SHOW OR MISSED 2019-07-29 19:40:43 Doctor Unassigned, [facility] APPOINTMENT POLICY [place] [facility] h ACKNOWLEDGEMENT Encounters Start End Encounter Admission Attending Care Care Encounter Source Date/Time Date/Time Type Type Clinicians Facility Department ID 2022-09-05 Outpatient X [facility] GUDELIA [id number] Univers 04:58:31 [facility] 2022-08-06 Outpatient P [facility] GUDELIA [id number] Univers 19:14:58 [facility] 2022-07-09 Outpatient Back, STLMLC STLMLC [id number] Common 14:45:01 [facility] 2022-04-10 Outpatient Back, STLMLC STLMLC [id number] Common 16:49:01 [facility] 2022-01-13 Outpatient Back, STLMLC STLMLC [id number] Common 14:12:01 Alonso [facility] 2021-12-13 Outpatient Back, STLMLC STLMLC [id number] Common 13:03:02 Alonso [facility] 2021-12-11 Outpatient Back, STLMLC STLMLC [id number] Common 14:38:17 [facility] 2021-12-11 Outpatient Back, STLMLC STLMLC [id number] Common 14:37:23 Alonso [facility] 2021-12-11 Outpatient Back, STLMLC STLMLC [id number] Common 14:36:09 Alonso [facility] 2021-12-11 Outpatient Back, STLMLC STLMLC [id number] Common 14:29:00 Alonso [facility] 2021-12-11 Outpatient Back, STLMLC STLMLC [id number] Common 14:18:29 [facility] 2021-12-11 Outpatient [place], STLMLC STLMLC [id number] Common 14:10:51 Neema 91311 [facility] 2021-12-11 Outpatient Back, STLMLC STLMLC [id number] Common 13:38:13 Alonso 71788 [facility] 2021-12-11 Outpatient Back, STLMLC STLMLC [id number] Common 12:49:55 Alonso [id number] [facility] 2021-12-11 Outpatient Back, STLMLC STLMLC [id number] Common 12:48:47 Alonso [id number] [facility] 2021-12-11 Outpatient Back, STLMLC STLMLC [id number] Common 12:29:07 Alonso [id number] [facility] 2021-12-11 Outpatient Back, STLMLC STLMLC [id number] Common 12:23:04 Alonso [id number] [facility] 2021-12-11 Outpatient Back, STLMLC STLMLC [id number] Common 12:15:33 Alonso [id number] [facility] 2021-12-11 Outpatient Back, STLMLC STLMLC [id number] Common 12:11:06 Alonso 79732 [facility] 2021-12-11 Outpatient Back, STLMLC STLMLC [id number] Common 12:07:48 Alonso [id number] [facility] 2021-12-11 Outpatient Back, STLMLC STLMLC [id number] Common 12:07:23 Alonso [id number] [facility] 2021-12-11 Outpatient Back, STLMLC STLMLC [id number] Common 12:01:42 Alonso 13378 [facility] 2021-09-15 Emergency [facility] [id number] Univers 11:27:03 ity [facility] 2021-09-12 Outpatient P HIMB GUDELIA [id number] Univers 19:48:53 ity [facility] 2021-09-12 Outpatient P [facility] GUDELIA [id number] Univers 19:10:49 [facility]-09[facility]12 Outpatient P HIM[facility] GUDELIA [id number] Univers 14:24:30 ity [facility] 2021-09-12 Outpatient P [facility] GUDELIA [id number] Univers 12:37:40 ity of [facility] 2021-09-12 Outpatient P [facility] GUDELIA [id number] Univers 10:46:13 ity [facility] 2022-11-24 2022-11-24 Outpatient R DELMY [facility] [id number] Univers 13:00:00 13:00:00 ity [facility] 2022-11-04 2022-11-04 Outpatient R DELMY [facility] [id number] Univers 14:45:00 14:45:00 ity [facility] 2022-11-04 2022-11-04 Emergency [facility] [id number] Univers 08:18:00 09:03:00 SO ity [facility] 2022-11-04 2022-11-04 Emergency [facility] [id number] Univers 08:18:00 09:03:00 So ROBBINS [id number] ity [facility] [id number] [facility] [id number] [address] 2022-10-31 2022-10-31 (TEL) [facility] [id number] Co mmon 00:00:00 00:00:00 [facility] 2022-10-29 2022-10-29 Telephone Del[facility] [id number] Univers 00:00:00 00:00:00 Vincent ROBBINS [id number] i ty of [place] [id number] [facility] [phone] Fl dical [address] 2022-10-27 2022-10-27 Outpatient R BROCKLADANEN [facility] [id number] Univers 15:00:00 15:56:43 ity [facility] 2022-10-27 2022-10-27 Office Brock [facility] [id number] Univers 15:00:00 15:56:43 Visit Vincent ROBBINS [id number] [id number] [phone] Fl dical NAL [address] [facility] 2022-10-24 2022-10-24 Case Gustabo Brock [facility] [id number] Univers 00:00:00 00:00:00 Management Vincent ROBBINS [id number] [id number] [id number] Fl dical NAL [address] [place] [address] 2022-10-21 2022-10-21 Outpatient R GUSTABO BROCK [facility] [id number] Univers 13:15:00 13:37:20 ity of [facility] 2022-10-21 2022-10-21 Office Gustabo Brock [facility] [id number] Univers 13:15:00 13:37:20 Visit Vincent ROBBINS [id number] i ty [id number] [id number] Fl dical NAL [address] [place] [address] 2022-10-21 2022-10-21 Patient Lesley, [facility] [id number] Univers 00:00:00 00:00:00 Secure Msg Evelyne ROBBINS [id number] ity [id number] [id number] Fl dical NAL [address] [place] [address] 2022-10-15 2022-10-15 Patient Georges, [facility] [id number] Univers 00:00:00 00:00:00 Secure Msg [place] ROBBINS [id number] ity [id number] [id number] Fl dical NAL [address] [place] [address] 2022-09-25 2022-09-25 Letter Gustabo Brock [facility] [id number] Univers 00:00:00 00:00:00 (Out) Vincent ROBBINS [id number] i ty [id number] [id number] Fl dical NAL [address] [place] [address] 2022-09-24 2022-09-24 Outpatient R GUSTABO BROCK [facility] [id number] Univers 11:15:00 11:57:43 ity of [facility] 2022-09-24 2022-09-24 Routine Gustabo Brock [facility] [id number] Univers 11:15:00 11:57:43 Cam [place] [id number] ity of Visit [id number] [id number] Fl dical NAL [address] [place] [address] 2022-09-15 2022-09-15 Telephone Gustabo Brock [facility] [id number] Univers 00:00:00 00:00:00 Cam [place] [id number] [id number] [id number] [address] 2022-09-08 2022-09-09 Inpatient P GUSTABO BROCK [facility] GUDELIA [id number] Univers 04:16:00 18:08:00 ity of [facility] 2022-09-08 2022-09-09 Hospital Gustabo Brock [facility] [id number] Univers 04:16:00 18:08:00 Encounter Vincent [place] [id number] ity of [place] [id number] [facility] [place] [id number] [address] 2022-09-08 2022-09-08 Anesthesia Chago Bonilla [facility] 1.2 .[id number] Univers 12:01:00 17:01:00 Event Dayton Ferris [place] [id number] ity of [place] [id number] [facility] [id number] [address] 2022-09-08 2022-09-08 Anesthesia [facility] [id number] Univers 12:13:59 12:13:59 Event Kroey [place] [id number] i [id number] [id number] [address] 2022-09-05 2022-09-05 Outpatient X CARI, [facility] GUDELIA [id number] Univers 01:52:00 04:48:00 PAIGE ity of [facility] 2022-09-05 2022-09-05 Emergency Ad, [facility] 1.2.890.901 [id number] Univers 01:52:00 04:48:00 Paige Fiona [place] 350.1.13.10 ity of [facility] [place].2.[place] [phone] [address] 2022-09-05 2022-09-05 Patient Georges [facility] 1.2.840.114 [id number] Univers 00:00:00 00:00:00 Secure Msg [place] 350.1.13.10 ity of [place] [phone] Fl dical NAL [address] [place] [address] 2022-09-03 2022-09-03 Outpatient R GUSTABO BROCK [facility] [id number] Univers 10:45:00 12:05:25 ity of [facility] 2022-09-03 2022-09-03 Routine Gustabo Brock [facility] 1.2.081.888 [id number] Univers 10:45:00 12:05:25 Cam [place] 350.1.13.10 ity of [place].2.[place] [phone] Fl dical NAL [address] [facility] 2022-09-01 2022-09-02 Outpatient X GUSTABO BROCK [facility] GUDELIA [id number] Univers 23:27:00 01:04:00 ity of [facility] 2022-09-01 2022-09-02 Emergency [facility] 1.2.840.114 [id number] Univers 23:27:00 01:04:00 Cam [place] 350.1.13.10 i ty of [facility] 4.2.7.2.686 [place] [phone] [address] 2022-08-26 2022-08-26 Outpatient R GUSTABO BROCK [facility] [id number] Univers 16:00:00 16:12:03 ity of [facility] 2022-08-26 2022-08-26 Routine Gustabo Brock [facility] 1.2.221.141 [id number] Univers 16:00:00 16:12:03 Vincent [place] 350.1.13.10 ity of Visit [place].2.7.2.[place] [phone] Fl dical NAL 134 [facility] 2022-08-26 2022-08-26 Orders Doctor [place] 1.2.840.114 [id number] Univers 00:00:00 00:00:00 Only Unassigned, CHETNA 350.1.13.10 ity of [place] [facility] 4.2.7.2.686 Braden as [phone] [address] 2022-08-21 2022-08-21 [facility] [id number] Univers 13:00:00 16:37:05 RAISSA ity of [facility] 2022-08-21 2022-08-21 Ancillary Lyndsay Pritchard [facility] 1 .2.840.114 [id number] Univers 13:00:00 16:37:05 Visit Raissa Perea 350.1.13.10 ity of [place].7.2.[place] [phone] Fl dical NAL 179 [facility] 2022-08-15 2022-08-15 Patient Gustabo Brock [facility] 1.2.046.903 [id number] Univers 00:00:00 00:00:00 Secure Msg Cam [place] 350.1.13.10 ity of [place] 4.2.7.2.[place] [phone] Fl dical NAL 134 [facility] 2022-08-12 2022-08-12 Outpatient R GUSTABO BROCK [facility] [id number] Univers 13:45:00 14:17:28 ity [facility] 2022-08-12 2022-08-12 Routine Gustabo Brock [facility] 1.2.772.912 [id number] Univers 13:45:00 14:17:28 Cam ROSENDO 350.1.13.10 ity of Visit [place].2.7.2.[place] [phone] Fl dical NAL [address] [place] [address] 2022-08-06 2022-08-06 [facility] GU[facility] [id number] Univers 17:23:00 18:44:00 PAIGE ity of [facility] 2022-08-06 2022-08-06 [facility] 1.2.840.114 [id number] Univers 17:23:00 18:44:00 Encounter Paige ROBBINS 350.1.13.10 ity of [place] 4.2.7.2.686 [place] [phone] [address] 2022-08-06 2022-08-06 Patient Doctor HINORBERTO 1.2.840.114 [id number] Univers 00:00:00 00:00:00 Secure Msg UnassROSENDO mckeon 350.1.13.10 ity of [place] 4.2.7.2.[place] [phone] Fl dical NAL [address] [place] [address] 2022-07-29 2022-07-29 Outpatient R GUSTABO BROCK [facility] [id number] Univers 13:15:00 13:58:44 ity of [facility] 2022-07-29 2022-07-29 Routine Ela Raphael [facility] .2.840.11 4 [id number] Univers 13:15:00 13:58:44 Gustabo Brock Vincent ROBBINS 350.1.13.10 ity of Visit [place] 4.2.7.2.[place] [phone] Fl dical NAL [address] [place] [address] 2022-07-28 2022-07-28 Outpatient R GUSTABO BROCK [facility] [id number] Univers 16:15:00 16:15:00 ity of [facility] 2022-07-28 2022-07-28 Patient Doctor [place] 1.2.840.114 [id number] Univers 00:00:00 00:00:00 Secure Msg Unassigned, CHETNA 350.1.13.10 ity of [place] [facility] 4.2.7.2.686 Braden as [phone] [address] 2022-07-22 2022-07-22 Clay Hoister Ultrasound, Avelino [facility] 1.2 .840.114 [id number] Univers 09:45:00 10:16:58 Visit Regino Tinoco 350.1.13.10 ity of [place] 4.2.7.2.[place] [phone] Fl dical NAL [address] [place] [address] 2022-07-22 2022-07-22 Outpatient P ALEJANDRINA [facility] [id number] Univers 09:45:00 09:45:00 REGINO blount [facility] 2022-07-14 2022-07-14 OFFICE STLMLC STLMLC [id number] Co mmon 00:00:00 00:00:00 VISIT EST Spir it PT LEVEL 3 - [facility] 2022-07-14 2022-07-14 (TEL) STLMLC STLMLC [id number] Co mmon 00:00:00 00:00:00 [facility] 2022-07-11 2022-07-11 Patient Gustabo Brock [facility] 1.2.176.119 [id number] Univers 00:00:00 00:00:00 Secure Msg Cam [place] 350.1.13.10 ity of [place] 4.2.7.2.[place] [phone] Fl dical NAL [address] [place] [address] 2022-07-08 2022-07-08 Outpatient R GUSTABO BROCK [facility] [id number] Univers 14:45:00 15:38:39 ity [facility] 2022-07-08 2022-07-08 Routine Gustabo Brock [facility] 1.2.151.352 [id number] Univers 14:45:00 15:38:39 Cam [place] 350.1.13.10 ity of Visit [place].2.7.2.[place] [phone] Fl dical NAL [address] [place] [address] 2022-07-08 2022-07-08 (TEL) STLMLC STLMLC [id number] Co mmon 00:00:00 00:00:00 [facility] 2022-07-08 2022-07-08 Patient Gustabo Brock [facility] 1.2.110.000 [id number] Univers 00:00:00 00:00:00 Secure Msg Vincent ROBBINS 350.1.13.10 ity of [place]2.[place].2.[place] [phone] [address] 2022-07-07 2022-07-07 Outpatient R GUSTABO BROCK [facility] [id number] Univers 11:00:00 11:00:00 ity [facility] 2022-07-01 2022-07-01 Nurse Nurse, [facility] 1.2.840.114 [id number] Univers 09:00:00 11:59:47 Visit Gustabo Borck [place] 350.1.13.10 ity [facility] 4.2.7.2.[place] [phone] [address] 2022-07-01 2022-07-01 Outpatient R GUSTABO BROCK [facility] [id number] Univers 09:00:00 09:00:00 [facility]22-[facility]-30 2022-06-30 Outpatient R IJEOMA [facility] [id number] Univers 09:00:00 09:00:00 [facility] 2022-06-30 2022-06-30 Patient Georges [facility] 1.2.840.114 [id number] Univers 00:00:00 00:00:00 Secure Msg [place] ROBBINS 350.1.13.10 ity [facility] 4.2.7.2.[place] [phone] [address] 2022-06-27 2022-06-27 Nurse Odilon BURRIS 1.2.840.114 [id number] Univers 00:00:00 00:00:00 Triage CHETNA Reynolds 350.1.13.10 ity [facility] 4.2.7.2.686 Braden as [phone] [address] 2022-06-24 2022-06-24 Clay Hoister 2, Adc Lab [facility] 1.2.840.114 [id number] Univers 08:45:00 09:00:00 Visit Brock Gustabo Vincent ROBB[place] 350.1.13.10 ity of [place].2.[place] [phone] Fl dical [facility] [address] [facility] 2022-06-24 2022-06-24 Outpatient R GUSTABO BROCK [facility] [id number] Univers 08:45:00 08:45:00 ity of [facility] 2022-06-23 2022-06-23 Outpatient R DELMY GUSTABO [facility] [id number] Univers 10:00:00 10:49:38 ity of [facility] 2022-06-23 2022-06-23 Routine [facility] 1.2.588.664 [id number] Univers 10:00:00 10:49:38 Vincent ROBBINS 350.1.13.10 ity of [place].2.7.2.[place] [phone] Fl dical [facility] [address] [facility] 2022-06-20 2022-06-20 Outpatient R GUSTABO BROCK [facility] [id number] Univers 10:15:00 10:15:00 ity of [facility] 2022-06-20 2022-06-20 Patient Georges [facility] 1.2.840.114 [id number] Univers 00:00:00 00:00:00 Secure Msg [place] ROSENDO 350.1.13.10 ity of [place].2.7.2.[place] [phone] Fl dical NAL 134 [facility] 2022-06-16 2022-06-16 Refill Ijeoma [facility] 1.2.904.677 [id number] [id number] Univers 00:00:00 00:00:00 Ela ROBBINS 350.1.13.10 i ty of [place].2.7.2.[place] [phone] Fl dical NAL [address] [facility] 2022-06-13 2022-06-13 Letter LastDAYTON sullivan 1.2.840.114 [id number] Univers 00:00:00 00:00:00 (Out) Angelica BASILIO 350.1.13.10 it y of [facility] 4.2.7.2.686 Braden as [phone] [facility] [address] 2022-06-12 2022-06-12 Outpatient R GUSTABO BROCK [facility] [id number] Univers 11:00:00 11:00:00 ity [facility] 2022-06-12 2022-06-[address] [facility] [id number] Univers 03:14:00 04:24:00 VANDANA [facility] 2022-06-12 2022-06-12 Emergency [facility] 1.2.840.114 9 [id number] Univers 03:14:00 04:24:00 Vandana ROBBINS 350.1.13.10 i ty [facility] 4.2.7.2.686 [place] [facility] [phone] [facility] [address] 2022-06-12 2022-06-12 OFF[facility] [id number] Co mmon 00:00:00 00:00:00 VISIT EST Spir it PT LEVEL 3 - [facility] 2022-06-11 2022-06-11 Laboratory Only, Ang Db Test [facility] 1.2.8 40.114 [id number] Univers 09:30:00 09:45:00 Only Janine Watkins [facility] 350.1.13.10 ity [facility] 4.2.7.2.686 Braden as JOSE?BLEA [phone] Fl dical KNEY [address] MEDICAL OFFICE BUILDING 2022-06-11 2022-06-11 Outpatient R JUNE [facility] [id number] Univers 09:30:00 09:30:00 JANINE blount o f [facility] 2022-06-11 2022-06-11 (TEL) STLMLC [facility] [id number] Co mmon 00:00:00 00:00:[address] [facility] 2022-05-132022-05-13 Routine Gustabo Brock [facility] 1.2.072.351 [id number] Univers 13:00:00 13:27:09 Cam [place] 350.1.13.10 ity of Visit [place].2.[place] [phone] Fl dical NAL [address] [place] [address] 2022-05-13 2022-05-13 Outpatient P LEILA [facility] [id number] Univers 11:00:00 11:47:03 ALEAH it y of SJAVIER [facility] 2022-05-13 2022-05-13 Clay Hoister Ultrasound, Adc [facility] 1.2 .840.114 [id number] Univers 11:00:00 11:47:03 Visit Leila JadeferminJavier reyes 350.1 .13.10 ity of [facility] 4.2.7.2.686 [place] [phone] [facility] NAL [address] [place] [address] 2022-04-24 2022-04-24 Outpatient R GUSTABO BROCK [facility] [id number] Univers 13:00:00 13:21:13 ity of [facility] 2022-04-24 2022-04-24 Routine Gustabo Brock [facility] 1.2.570.603 [id number] Univers 13:00:00 13:21:13 Cam [place] 350.1.13.10 ity of [place].2.7.2.[place] [phone] Fl dical NAL [address] [place] [address] 2022-04-24 2022-04-24 Patient CaseNeena [facility] 1.2.840.114 [id number] Univers 00:00:00 00:00:00 Secure Msg A [place] 350.1.13.10 ity of [facility] 4.2.7.2.686 [place] [phone] Fl dical NAL [address] [place] [address] 2022-04-17 2022-04-17 Clay Hoister 2, Adc Lab [facility] 1.2.840.114 [id number] Univers 11:45:00 12:00:00 Visit Gustabo Brock [place] 350.1.13.10 ity of [place] 4.2.7.2.686 [place] [phone] Fl dical NAL [address] [facility] 2022-04-17 2022-04-17 Outpatient R GUSTABO BROCK [facility] [id number] Univers 11:15:00 11:39:14 ity of [facility] 2022-04-17 2022-04-17 Routine Gustabo Brock [facility] 1.2.282.794 [id number] Univers 11:15:00 11:39:14 Vincent ROBBINS 350.1.13.10 ity of Visit [place] 4.2.7.2.686 [place] [id number] Fl dical NAL [address] [facility] 2022-04-10 2022-04-10 PREV VISIT [facility] [id number] Common 00:00:00 00:00:00 EST AGE [facility] 18-39 - CHI [facility] 2022-04-02 2022-04-02 Telephone Gustabo Brock [facility] 1..840.114 93 [id number] Univers 00:00:00 00:00:00 Vincent ROBBINS 350.1.13.10 i ty of [place] 4.2.7.2.686 [place] [phone] Fl dical NAL [address] [place] [address] 2022-03-27 2022-03-27 [facility] [id number] Co mmon 00:00:00 00:00:00 [facility] 2022-03-20 2022-03-20 Outpatient R GUSTABO BROCK [facility] [id number] Univers 11:00:00 11:50:41 ity of [facility] 2022-03-20 2022-03-20 Routine Ela Raphael [facility] 1.2.840.11 4 [id number] Univers 11:00:00 11:50:41 BorckLadanperlita ROBBINS 350.1.13.10 ity of Visit [place] 4.2.7.2.686 [place] [phone] Fl dical NAL [address] [facility] 2022-03-20 2022-03-20 Orders Doctor BURRIS 1.2.840.114 [id number] Univers 00:00:00 00:00:00 Only Unassigned, CHETNA 350.1.13.10 ity of [place] [facility] 4.2.7.2.686 Braden as [phone] [facility] [address] 2022-03-06 2022-03-06 Telephone Brock Gustabo [facility] 1.2.840.114 [id number] Univers 00:00:00 00:00:00 Vincent ROBBINS 350.1.13.10 i ty of [place] 4.2.7.2.686 [place] [phone] Fl dical NAL [address] [facility] 2022-02-28 2022-02-28 Outpatient R GUSTABO BROCK [facility] [id number] Univers 09:00:00 09:00:00 ity of [facility] 2022-02-21 2022-02-21 Clay Hoister 2, Adc Lab [facility] 1.2.840.114 [id number] Univers 08:30:00 08:45:00 Visit Gustabo Brock 350.1.13.10 ity of [place] 4.2.7.2.[place] [phone] Fl dical NAL [address] [facility] 2022-02-21 2022-02-21 Outpatient R GUSTABO BROCK [facility] [id number] Univers 08:30:00 08:30:00 ity of [facility] 2022-02-19 2022-02-19 Case [facility] 1.2.840.114 [id number] Univers 00:00:00 00:00:00 Management Marialuisa ANDERSON 350.1.13.10 ity of [place].2.[place] [phone] [facility] [address] 2022-02-19 2022-02-19 Patient [facility] 1.2.840.114 [id number] Univers 00:00:00 00:00:00 Secure Msg Marialuisa ANDERSON 350.1.13.10 it[place] [phone] [facility] [address] 2022-02-19 2022-02-19 Patient Gustabo Brock [facility] 1.2.716.743 [id number] Univers 00:00:00 00:00:00 Secure Msg Vincent ROBBINS 350.1.13.10 ity of [place] 4.2.7.2.[place] [phone] Fl dical [address] 2022-02-18 2022-02-18 Outpatient R GUSTABO BROCK [facility] [id number] Univers 11:00:00 11:23:07 ity of [facility] 2022-02-18 2022-02-18 Initial Gustabo Brock [facility] 1.2.856.738 [id number] Univers 11:00:00 11:23:07 Vincent ROBBINS 350.1.13.10 ity of [place] 4.2.7.2.[place] [phone] Fl dical [address] 2022-02-18 2022-02-18 Orders Doctor BURRIS 1.2.840.114 [id number] Univers 00:00:00 00:00:00 Only Unassigned, CHETNA 350.1.13.10 ity of [place] [facility] 4.2.7.2.686 Braden as [phone] [address] 2022-02-07 2022-02-07 Outpatient R GUSTABO BROCK [facility] [id number] Univers 10:45:00 10:45:00 ity [facility] 2022-01-13 2022-01-13 (TEL) STLC STLMLC [id number] Co mmon 00:00:00 00:00:[address] [facility] 2022-01-13 2022-01-13 OFFICE STLMLC STLMLC [id number] Co mmon 00:00:00 00:00:00 VISIT EST Spir it PT LEVEL 3 - [facility] 2021-12-25 2021-12-25 OL DIG E/M STLMLC STLMLC [id number] Common 00:00:00 00:00:00 [facility] 11-20 Spir it MIN - [facility] 2021-12-25 2021-12-25 (TEL) STLMLC STLMLC [id number] Co mmon 00:00:00 00:00:00 [facility] 2021-12-13 2021-12-13 (TEL) STLMLC STLMLC [id number] Co mmon 00:00:00 00:00:00 [facility] 2021-12-13 2021-12-13 OFFICE STLMLC STLMLC [id number] Co mmon 00:00:00 00:00:00 VISIT [facility] PT - CHI LEVEL 2 [facility] 2021-12-13 2021-12-13 (TEL) STLMLC STLMLC [id number] Co mmon 00:00:00 00:00:00 [facility] 2021-12-02 2021-12-02 OFFICE STLMLC STLMLC [id number] Co mmon 00:00:00 00:00:00 VISIT [facility] PT - CHI LEVEL 1 [facility] 2021-12-02 2021-12-02 (TEL) STLMLC STLMLC [id number] Co mmon 00:00:00 00:00:00 [facility] 2021-11-12 2021-11-12 OL DIG E/M STLMLC STLMLC [id number] Common 00:00:00 00:00:00 [facility] 11-20 Spir it [facility] 2021-11-11 2021-11-11 (TEL) STLMLC STLMLC [id number] Co mmon 00:00:00 00:00:00 [facility] 2021-11-06 2021-11-06 Outpatient Eleanor RAPHAEL, [facility] [id number] [facility] 10:30:00 10:30:00 ELA blount [facility] 2021-10-15 2021-10-15 (TEL) STLMLC STLMLC [id number] Co mmon 00:00:00 00:00:00 [facility] 2021-10-15 2021-10-15 (TEL) STLMLC STLMLC [id number] Co mmon 00:00:00 00:00:00 [facility] 2021-10-15 2021-10-15 OFFICE STLMLC STLMLC [id number] Co mmon 00:00:00 00:00:00 VISIT EST Spir it PT LEVEL 3 - [facility] 2021-09-30 2021-09-30 Outpatient R IJEOMA [facility] [id number] Univers 11:45:00 11:24:49 ELA blount [facility] 2021-09-30 2021-09-30 Telemedici Ijeoma [facility] 1.2.840.114 [id number] Univers 09:11:25 09:26:25 ne Visit Ela BENSONMARCELO 350.1.13.10 ity of [facility] 4.2.7.2.686 [place] [phone] [address] 2021-09-19 2021-09-19 Outpatient R SLIM [facility] [id number] Univers 18:30:00 19:32:34 REEMA [facility] 2021-09-19 2021-09-19 Laboratory Only, Ang Db Test [facility] 1.2.8 40.114 [id number] Univers 18:25:51 18:40:51 Only [facility] 350.1.13.10 ity of [place] 4.2.7.2.686 Braden as JOSE?BLEA [phone] [address] OFFICE BUILDING 2021-09-02 2021-09-02 OFFICE STLMLC STLMLC [id number] Co mmon 00:00:00 00:00:00 VISIT EST Spir it PT LEVEL 3 - [facility] 2021-09-02 2021-09-02 (TEL) STLMLC STLMLC [id number] Co mmon 00:00:00 00:00:00 Spirit - [facility] 2021-08-26 2021-08-26 [facility] 1.2.990.479 [id number] Univers 00:00:00 00:00:00 Ela Robbins 350.1.13.10 i ty of [place].2.[place] Profess[place] [phone] [address] 2021-07-26 2021-07-26 (COVID STLC STLC [id number] Co mmon 00:00:00 00:00:00 Inj) COVID Spi rit Injection - [facility] 2021-07-23 2021-07-23 Letter DAYTON Ni 1.2.840.114 [id number] Univers 00:00:00 00:00:00 (Out) Angelica BASILIO 350.1.13.10 it y of [facility] 4.2.7.2.686 Braden as [phone] [facility] [address] 2021-07-22 2021-07-22 Laboratory Only, Ang Db Test [facility] 1.2.8 40.114 [id number] Univers 10:31:38 10:46:38 Only Kirsten, [facility] 350.1.13.10 ity of [place] 4.2.7.2.686 Braden as Jose?Blea [phone] Fl dickristel [facility] [address] 2021-07-22 2021-07-22 Outpatient R [facility] [id number] Univers 10:30:00 10:30:00 ity of [facility] 2021-07-12 2021-07-12 [facility] 1.2.840.114 [id number] Univers 00:00:00 00:00:00 Ela Robbins 350.1.13.10 i [place] [phone] Fl komal [facility] [address] 2021-07-12 2021-07-12 Orders Doctor [place] 1.2.840.114 [id number] Univers 00:00:00 00:00:00 Only Unassigned, CHETNA 350.1.13.10 ity of [place] [facility] 4.2.7.2.686 Braden as [phone] [facility] [address] 2021-06-28 2021-06-28 ([facility]OVID [facility] [id number] Co mmon 00:00:00 00:00:00 Inj) COVID Spi rit Injection - [facility] 2021-06-27 2021-06-27 Office Ijeoma [facility] 1.2.388.755 [id number] Univers 10:59:25 11:39:22 Visit Ela Robbins 350.1.13.10 i [place] [phone] Fl dical nal [address] [place] [address] 2021-06-27 2021-06-27 Outpatient Eleanor RAPHAEL [facility] [id number] Univers 10:45:00 10:45:00 ELA jose alejandro [facility] 2021-06-27 2021-06-27 Orders Doctor [place] 1.2.840.114 [id number] Univers 00:00:00 00:00:00 Only Unassigned, CHETNA 350.1.13.10 [facility] 4.2.7.2.686 [place] as [phone] [address] 2021-06-20 2021-06-20 Ref[facility]isel [facility] 1.2.765.656 [id number] Univers 00:00:00 00:00:00 Ela Robbins 350.1.13.10 i [place] [phone] Fl dical [address] 2021-06-16 2021-06-16 [facility] 1.2.871.892 [id number] Univers 00:00:00 00:00:00 Ela Robbins 350.1.13.10 i [place] [phone] Fl dical [address] 2021-05-06 2021-05-06 Outpatient Eleanor RAPHAEL [facility] [id number] Univers 10:00:00 10:00:00 ELAEKATERINA blount [facility] 2021-04-23 2021-04-23 OFFICE STLMLC STLMLC [id number] Co mmon 00:00:00 00:00:00 VISIT EST Spir it PT LEVEL 3 - [facility] 2021-03-25 2021-03-25 Outpatient STLMLC STLMLC [id number] Common 00:00:00 00:00:00 Spirit - [facility] 2021-03-18 2021-03-18 [facility] [id number] [id number] Univers 00:00:00 00:00:00 Secure Msg Ela [place] 350.1.13.10 ity [place] [facility] [phone] Fl dical [address] 2021-02-22 2021-02-22 Outpatient STLMLC STLMLC [id number] Common 00:00:00 00:00:00 [facility] 2021-02-22 2021-02-22 Outpatient STLMLC STLMLC [id number] Common 00:00:00 00:00:00 [facility] 2021-02-22 2021-02-22 Outpatient STLMLC STLC [id number] Common 00:00:00 00:00:00 [facility] 2021-02-20 2021-02-21 Emergency [facility] 1.2.102.711 [id number] Univers 20:37:00 02:00:00 Elsa Bens[place]on 350.1.13.10 ity of [place] [phone] [facility] [address] 2021-02-20 2021-02-20 Outpatient STLC STLC [id number] Common 00:00:00 00:00:00 [facility] 2021-02-20 2021-02-20 Orders Doctor BURRIS 1.2.840.114 [id number] Univers 00:00:00 00:00:00 Only Unassigned, CHETNA 350.1.13.10 [facility] 4.2.7.2.686 [place] [phone] [facility] [address] 2021-01-07 2021-01-07 Outpatient Eleanor RAPHAEL [facility] [id number] Univers 15:15:00 15:15:00 ELA blount [facility] 2020-12-25 2020-12-25 Outpatient Eleanor RAPHAEL [facility] [id number] Univers 08:30:00 08:30:00 [facility]-24 2020-12-24 Outpatient STLMLC STLMLC [id number] Common 00:00:00 00:00:00 [facility] 2020-12-24 2020-12-24 Outpatient STLMLC STLMLC [id number] Common 00:00:00 00:00:00 [facility] 2020-12-21 2020-12-21 Outpatient STLMLC STLMLC [id number] Common 00:00:00 00:00:00 [facility] 2020-12-21 2020-12-21 Outpatient STLMLC STLMLC [id number] Common 00:00:00 00:00:00 [facility] 2020-12-17 2020-12-17 Outpatient R [facility] [id number] Univers 15:00:00 15:00:00 [facility] 2020-12-14 2020-12-14 Outpatient R [facility] [id number] Univers 14:00:00 14:00:00 [facility] 2020-12-14 2020-12-14 Telephone Gustabo Brock [facility] 1.2.840.114 [id number] Univers 00:00:00 00:00:00 Vincent Robbins 350.1.13.10 i [place] 4.2.7.2.686 Gabriele Ledezma [phone] Fl dical [address] 2020-12-06 2020-12-06 Outpatient STLMLC STLMLC [id number] Common 00:00:00 00:00:00 [facility] 2020-11-20 2020-11-20 Outpatient R GUSTABO BROCK [facility] [id number] Univers 13:30:00 13:30:00 [facility] 2020-11-07 2020-11-07 Outpatient STLMLC STLMLC [id number] Common 00:00:00 00:00:00 [facility] 2020-10-22 2020-10-22 Outpatient STLMLC STLMLC [id number] Common 00:00:00 00:00:00 [facility] 2020-10-08 2020-10-08 Outpatient STLMLC STLMLC [id number] Common 00:00:00 00:00:00 [facility] 2020-09-18 2020-09-18 Nurse Nurse, [facility] 1.2.840.114 [id number] Univers 10:43:05 11:10:34 Visit Gustabo Brock Vincent Robbins 350.1.13.10 it[place] of [place] [phone] Fl dic[address] 2020-09-18 2020-09-18 Outpatient R [facility] [id number] Univers 10:30:00 10:30:00 ity of [facility] 2020-09-18 2020-09-18 Outpatient STLMLC STLMLC [id number] Common 00:00:00 00:00:00 [facility] 2020-09-18 2020-09-18 Outpatient STLMLC STLMLC [id number] Common 00:00:00 00:00:00 [facility] 2020-06-20 2020-06-20 Nurse Nurse, [facility] 1.2.840.114 [id number] Univers 15:33:56 16:03:49 Visit Gustabo Brock Vincent Robbins 350.1.13.10 it[place] of [place] [phone] Fl dical [address] 2020-06-20 2020-06-20 Outpatient R [facility] [id number] Univers 15:30:00 15:30:00 ity of [facility] 2020-04-10 2020-04-10 Telemedici Brock [facility] 1.2.840.114 [id number] Univers 08:14:13 16:33:20 ne Visit Vincent Robbins 350.1.13.10 it[place] of [place] [phone] Fl dical nal [address] [place] [address] 2020-04-10 2020-04-10 Outpatient R GUSTABO BROCK [facility] [id number] Univers 16:00:00 16:00:00 ity [facility] 2020-04-02 2020-04-02 Outpatient R IJEOMA [facility] [id number] Univers 15:00:00 15:00:00 ELA blount [facility] 2020-03-23 2020-03-23 Outpatient R IJEOMA [facility] [id number] Univers 16:15:00 16:15:00 ELA blount [facility] 2020-03-23 2020-03-23 [facility]medici [facility] 1.2.840.114 [id number] Univers 14:25:55 14:40:55 ne Visit Ela Rosendo 350.1.13.10 it[place] of [place] [phone] [address] 2020-03-23 2020-03-23 Telephone Gustabo Brock [facility] 1.2.840.114 [id number] Univers 00:00:00 00:00:00 Cam [place] 350.1.13.10 i ty of [place] [phone] [address] 2020-03-19 2020-03-21 [facility] Gustabo Brock [facility] 1.2.840.114 [id number] Univers 12:26:00 15:25:00 Encounter Vincent [place] 350.1.13.10 ity of [place] [phone] [address] 2020-03-15 2020-03-15 Telephone Gustabo Brock [facility] 1.2.840.114 [id number] Univers 00:00:00 00:00:00 Cam [place] 350.1.13.10 i ty of [place] [phone] [address] 2020-03-14 2020-03-14 Clay Hoister Ultrasound, [place] [facility] 1.2 .840.114 [id number] Univers 15:05:58 15:59:38 Visit Javier Swann MONITORING COORDINATOR 350.1. 13.10 ity of Jhoana Ibarra [facility] 4.2.7.2.686 [place] MATERNAL [phone] Med ical & CHILD 369 [facility] 2020-03-14 2020-03-14 Outpatient P DEE [facility] [id number] Univers 14:45:00 14:45:00 ALEAH it y of Filomena HERRERA [facility] 2020-03-13 2020-03-13 Case Gustabo Brock [facility] 1.2.253.490 [id number] Univers 00:00:00 00:00:00 Management Cam [place] 350.1.13.10 it[place] [phone] Fl dical nal [address] [facility] 2020-03-12 2020-03-12 Hospital Gustabo Brock [facility] 1.2.840.114 [id number] Univers 17:02:00 18:40:00 Encounter Cam Rosendo 350.1.13.10 it[place] of [place] [phone] [address] 2020-03-12 2020-03-12 Outpatient P GUSTABO BROCK [facility] GUDELIA [id number] Univers 17:02:00 18:40:00 ity of [facility] 2020-03-12 2020-03-12 Telemedici Delmy Gustabo [facility] 1.2.840.114 [id number] Univers 08:02:00 16:15:21 ne Visit Vincent Robbins 350.1.13.10 it[place] of [place] [phone] Fl dical nal [address] [place] [address] 2020-03-12 2020-03-12 Outpatient R GUSTABO BROCK [facility] [id number] Univers 15:45:00 15:45:00 ity of [facility] 2020-03-07 2020-03-07 Clay [facility] 1.2 .840.114 [id number] Univers 15:19:14 15:43:29 Visit Dee Javier Frost MONITORING COORDINATOR 350.1. 13.10 ity of Regino Tinoco 4.2.7.2.686 [place] MATERNAL [phone] Med ical & CHILD 369 [facility] 2020-03-07 2020-03-07 Outpatient P LEILA [facility] [id number] Univers 15:15:00 15:15:00 GINAOUVELI it y of JAVIER Savage [facility] 2020-03-05 2020-03-05 Telemedici Gustabo Brock [facility] 1.2.840.114 [id number] Univers 08:44:37 16:32:27 ne Visit Vincent Robbins 350.1.13.10 it[place] of [place] [phone] Fl dical nal [address] [facility] 2020-03-05 2020-03-05 Outpatient R GUSTABO BROCK [facility] [id number] Univers 16:15:00 16:15:00 ity of [facility] 2020-02-29 2020-02-29 Clay [facility]ister [facility] 1.2 .840.114 [id number] Univers 15:13:41 15:54:46 Visit Javier Swann MONITORING COORDINATOR 350.1. 13.10 ity of [facility] 4.2.7.2.686 [place] MATERNAL [phone] Med ical & CHILD 369 [facility] 2020-02-29 2020-02-29 Outpatient P LEILA [facility] [id number] Univers 15:15:00 15:15:00 ALEAH it y of J[place] Savage [facility] 2020-02-27 2020-02-28 Clay Hoister 2, Adc Lab [facility] 1.2.840.114 [id number] Univers 14:38:56 00:38:50 Visit Gustabo Brock 350.1.13.10 it[place] of [place] [phone] Me dical nal [address] [facility] 2020-02-27 2020-02-27 Routine Gustabo Brock [facility] 1.2.584.057 [id number] Univers 15:35:56 16:05:04 Vincent Robbins 350.1.13.10 ity of [place] [phone] Me [address] 2020-02-27 2020-02-27 Outpatient R GUSTABO BROCK [facility] [id number] Univers 15:30:00 15:30:00 ity of [facility] 2020-02-27 2020-02-27 Orders Doctor DAYTON 1.2.840.114 [id number] Univers 00:00:00 00:00:00 Only Unassigned, CHETNA 350.1.13.10 ity of [place] [facility] 4.2.7.2.686 Braden as [phone] [address] 2020-02-24 2020-02-24 [facility] 1.2.840.114 [id number] Univers 00:00:00 00:00:00 Cam [place] 350.1.13.10 i ty of [place] [phone] [address] 2020-02-22 2020-02-22 Clay Hoister Ultrasound, [facility] 1.2 .840.114 [id number] Univers 15:09:08 15:39:08 Visit Javier Swann MONITORING COORDINATOR 350.1. 13.10 ity of [facility] 4.2.7.2.686 [place] as MATERNAL [phone] Med ical & CHILD [address] [place] [address] 2020-02-22 2020-02-22 Outpatient P LEILA [facility] [id number] Univers 15:15:00 15:15:00 ALEAH it y of JAVIER Savage [facility] 2020-02-17 2020-02-17 Telephone Delmy [facility] 1.2.840.114 [id number] Univers 00:00:00 00:00:00 Cam [place] 350.1.13.10 i ty of [place] [phone] [address] 2020-02-16 2020-02-16 Orders Doctor [place] 1.2.840.114 [id number] Univers 00:00:00 00:00:00 Only Unassigned, CHETNA 350.1.13.10 ity of [place] [facility] 4.2.7.2.686 [place] as [phone] [address] 2020-02-15 2020-02-15 Clay Hoister Ultrasound, [place] [facility] 1.2 .840.114 [id number] Univers 15:19:08 15:49:08 Visit Leila Jadepaul Javier MONITORING COORDINATOR 350.1. 13.10 ity of [facility] 4.2.7.2.686 [place] as MATERNAL [phone] Med ical & CHILD [address] [place] [address] 2020-02-15 2020-02-15 Outpatient P LEILA [facility] [id number] Univers 15:15:00 15:15:00 ALEAH it y of SJAVIER [facility] 2020-02-14 2020-02-14 Telephone Gustabo Brock [facility] 1.2.840.114 [id number] Univers 00:00:00 00:00:00 Vincent Robbins 350.1.13.10 i ty of [place] [phone] Fl dical [address] 2020-02-09 2020-02-10 Telemedici Room, [facility] 1.2.84 0.114 [id number] Univers 14:32:03 06:20:13 ne Visit DelmyLadanperlita Robbins 350.1.13.10 ity of [place] [phone] Fl dical nal [address] [place] [address] 2020-02-10 2020-02-10 Telephone Brock Gustabo [facility] 1.2.840.114 [id number] Univers 00:00:00 00:00:00 Vincent Robbins 350.1.13.10 i ty of [place] [phone] Fl dic[address] 2020-02-09 2020-02-09 Outpatient R [facility] [id number] Univers 15:00:00 15:00:00 ity [facility] 2020-02-08 2020-02-08 Outpatient R GUSTABO BROCK [facility] [id number] Univers 16:15:00 16:15:00 ity [facility] 2020-02-08 2020-02-08 Clay [facility]ister [facility]trasound[facility] 1.2 .840.114 [id number] Univers 15:10:44 15:40:44 Visit Dee Margot Javier MONITORING COORDINATOR 350.1. 13.10 ity of [facility] 4.2.7.2.686 [place] as MATERNAL [phone] [facility] [address] [place] [address] 2020-02-08 2020-02-08 Outpatient P [facility] [id number] Univers 15:15:00 15:15:00 KOUTROUVELI it y of [place] [facility] 2020-02-06 2020-02-06 Routine Room, [facility] 1.2.840.1 14 [id number] Univers 15:12:43 15:55:07 Gustabo Brock [place] 350.1.13.10 ity of [place] [phone] [address] 2020-02-06 2020-02-06 Outpatient R [facility] [id number] Univers 15:00:00 15:00:00 ity of [facility] 2020-02-02 2020-02-02 Routine Room, [facility] 1.2.840.1 14 [id number] Univers 15:04:44 16:05:00 Gustabo Brock [place] 350.1.13.10 ity of [place] [phone] [address] 2020-02-02 2020-02-02 Outpatient R [facility] [id number] Univers 15:00:00 15:00:00 ity of [facility] 2020-02-01 2020-02-01 Outpatient P [facility] [id number] Univers 15:00:00 15:00:00 KOUTROUVELI it y of [facility] 2020-02-01 2020-02-01 Clay Hoister Ultrasound, [facility] 1.2 .840.114 [id number] Univers 14:17:27 14:41:33 Visit Leila Margot Javier MONITORING COORDINATOR 350.1. 13.10 ity of [place] Tinoco Eleanor [facility] 4.2.7.2.686 [place] MATERNAL [phone] Med ical & CHILD 369 [facility] 2020-02-01 2020-02-01 Outpatient P DEE [facility] [id number] Univers 14:15:00 14:15:00 ALEAH it y of SJAVIER [facility] 2020-02-01 2020-02-01 Telephone Gustabo Brock [facility] 1.2.840.114 [id number] Univers 00:00:00 00:00:00 Vincent Robbins 350.1.13.10 i ty [place] [phone] Fl dical [facility] [address] [facility] 2020-01-29 2020-01-29 [facility] 1.2.840.114 [id number] Univers 05:23:00 08:53:00 Encounter Carl Robbins 350.1.13.10 ity of [place] [phone] [facility] [address] [place] 2020-01-29 2020-01-29 Orders Doctor DAYTON 1.2.840.114 [id number] Univers 00:00:00 00:00:00 Only Unassigned, CHETNA 350.1.13.10 ity of [place] [facility] 4.2.7.2.686 Braden as [phone] [facility] [address] [place] 2020-01-25 2020-01-25 Clay Hoister [facility]trasound, [facility] 1.2 .840.114 [id number] Univers 08:40:35 09:02:56 Visit Javier Swann MONITORING COORDINATOR 350.1. 13.10 ity of [facility] 4.2.7.2.686 Braden as MATERNAL [phone] [facility] ical & CHILD 369 [facility] 2020-01-25 2020-01-25 Outpatient P DEE [facility] [id number] Univers 08:30:00 08:30:00 ALEAH it y of SJAVIER [facility] 2020-01-24 2020-01-24 Routine Gustabo Brock [facility] 1.2.840.114 [id number] Univers 13:56:02 14:37:56 Ela Raphael Rosendo 350.1.13.10 ity of [place] [phone] [facility] [address] [facility] 2020-01-24 2020-01-24 Outpatient R IJEOMA [facility] [id number] Univers 13:45:00 13:45:00 ELA ity [facility] 2020-01-20 2020-01-20 Routine [facility] 1.2.970.444 [id number] Univers 10:22:02 10:57:08 Elaekaterina Robbins 350.1.13.10 ity of [place] 4.2.7.2.686 [place] Proft[place] [phone] [address] 2020-01-20 2020-01-20 [facility] [id number] Univers 10:15:00 10:15:00 ELA ity [facility] 2020-01-17 2020-01-18 Outpatient P DEE [facility] GUDELIA [id number] Univers 11:25:00 16:20:00 ALEAH it y of S, HERRERA [facility] 2020-01-17 2020-01-18 Hospital Gustabo Brock 1.2.840.114 [id number] Univers 11:25:00 16:20:00 Encounter Joaquín Anders Scott CANTRIL 350.1.13 .10 ity of Javier Swann ANNEX 4.2.7.2. 686 [place] [phone] [facility] [address] 2020-01-18 2020-01-18 Clay Hoister 5, [facility] Us Room [facility] 1 .2.840.114 [id number] Univers 10:08:04 10:40:40 Visit Yanes, Anders Scott Y [facility] 350.1.13. 10 ity of CLINICS 4[place]2.[place].2.[place] [id number] [facility] [address] [place] 2020-01-17 2020-01-17 Telephone Gustabo Brock [facility] 1.2.840.114 [id number] Univers 00:00:00 00:00:00 Vincent Robbins 350.1.13.10 i ty of [place] [phone] [address] 2020-01-16 2020-01-16 Outpatient R IJEOMA [facility] [id number] Univers 16:15:00 16:15:00 ELA ity of [facility] 2020-01-09 2020-01-09 Hospital [facility] 1.2.840.114 [id number] Univers 16:46:00 20:10:00 Encounter Vincent Robbins 350.1.13.10 ity of [place].2.[place] [phone] [facility] [address] 2020-01-09 2020-01-09 Routine [facility] 1.2.506.065 [id number] Univers 16:01:45 16:32:38 Vincent Robbins 350.1.13.10 ity of [place].2.[place] [phone] [address] 2020-01-09 2020-01-09 Outpatient R DELMY [facility] [id number] Univers 15:45:00 15:45:00 ity of [facility] 2020-01-09 2020-01-09 Telephone Gustabo Brock [facility] 1.2.840.114 [id number] Univers 00:00:00 00:00:00 Vincent Robbins 350.1.13.10 i ty of [place] [phone] [address] 2020-01-09 2020-01-09 Orders Doctor [place] 1.2.840.114 [id number] Univers 00:00:00 00:00:00 Only Unassigned, CHETNA 350.1.13.10 ity of [place] [facility] 4.2.7.2.686 Braden as [phone] [facility] [address] 2019-12-29 2019-12-29 Telephone [facility] 1.2.840.114 [id number] Univers 00:00:00 00:00:00 Ela Robbins 350.1.13.10 i ty of [place].2.[place] [phone] Fl dical nal [address] [place] [address] 2019-12-19 2019-12-19 Routine Gustabo Brock [facility] 1.2.389.104 [id number] [facility] 16:24:31 17:08:17 Cam Rosendo 350.1.13.10 ity of [place] 4[place].7.2.[place] [phone] Fl dical nal [address] [place] [address] 2019-12-19 2019-12-19 Orders Doctor DAY[place] 1.2.840.114 [id number] Univers 00:00:00 00:00:00 Only Unassigned, CHETNA 350.1.13.10 ity of [place] [facility] 4.2.7.2.686 Braden as [phone] [address] 2019-07-29 2019-07-29 Nurse Nurse, [facility] 1.2.840.114 [id number] [facility] 14:42:27 16:13:55 Visit Gustabo Brock Rosendo 350.1.13.10 ity of [place] 4[place]2.7.2.[place] [phone] Fl dical nal [address] [place] [address] 2019-07-29 2019-07-29 Orders Doctor [place] 1.2.840.114 [id number] Univers 00:00:00 00:00:00 Only Unassigned, CHETNA 350.1.13.10 ity of [place] [facility] 4.2.7.2.686 Br[place] as [phone] [address] Results Test Description Test Time Test Comments Results Result Comments Source POCT TEST 2022-11-04 14:27:00 Test Item Value Reference Range Interpretation Comme nts POCT PREG (test code = 1605) NEGATIVE On board controls acceptable with C Line (test code = 3574) present POCT PREG LOT # (test code = 3575) [id number] POCT PREG TEST DATE (test code = 3576) 02/14/2024 Lab Interpretation (test code = 80549-0) [id number] 21:29:00 Test Item Value Reference Range Interpretation Comments POCT PREG (test code = 1605) Negative On board controls acceptable with C Yes Line (test code = 3574) POCT PREG LOT # (test code = 3575) POCT PREG TEST DATE (test code = 3576) [facility] [id number] 21:29:00 Test Item Value Reference Range Interpretation Comments POCT PREG (test code = 1605) Negative On board controls acceptable with C Yes Line (test code = 3574) POCT PREG LOT # (test code = 3575) POCT PREG TEST DATE (test code = 3576) [facility] with [id number] 09:44:25 Test Item Value Reference Range Interpretation Comments WBC (test code = See_Comment H [Automated 6690-2) message] The sy stem which generated this result transmitted reference range : 4.30 - 11.10 10*3/?L. The reference range was not used to interpret this result as normal/abnormal . RBC (test code = See_Comment L [Automated 789-8) message] The sy stem which generated this result transmitted reference range : 3.93 - 5.25 10*6/?L. The reference range was not used to interpret this result as normal/abnormal . HGB (test code = 11.3 g/dL 11.6-15 L 718-7) HCT (test code = 33.3 % 35.7-45.2 L 4544-3) MCV (test code = 88.3 fL 80.6-95.5 787-2) MCH (test code = 30.0 pg 25.9-32.8 785-6) MCHC (test code = 33.9 g/dL 31.6-35.1 786-4) RDW-SD (test code = 39.0 fL 39-49.9 57784-3) RDW-CV (test code = 12.2 % 12-15.5 788-0) PLT (test code = See_Comment L [Automated 777-3) message] The sy stem which generated this result transmitted reference range : 166 - 358 10*3/ ?L. The reference r tawny was not used to interpret this result as normal/abnormal . MPV (test code = 12.4 fL 9.5-12.9 55669-7) NRBC/100 WBC (test See_Comment [Automat ed code = 0734848127) message] The system which generated this result transmitted reference range : 0.0 - 10.0 /100 WBCs. The refer ence range was not u sed to interpret th is result as normal/abnormal . NRBC x10^3 (test code See_Comment [Auto mated = 6504587442) message] The s ystem which generated this result transmitted reference range : 10*3/?L. The reference range was not used to interpret this result as normal/abnormal . GRAN MAT (NEUT) % 56.9 % (test code = 770-8) IMM GRAN % (test code 0.40 % = 3722625790) LYMPH % (test code = 32.6 % 736-9) MONO % (test code = 7.8 % 5905-5) EOS % (test code = 2.1 % 713-8) BASO % (test code = 0.2 % 706-2) GRAN MAT x10^3(ANC) 6.42 10*3/uL 1.88-7.09 (test code = 9829532808) IMM GRAN x10^3 (test 0.05 10*3/uL 0-0.06 code = 0048729558) LYMPH x10^3 (test code 3.68 10*3/uL 1.32-3.29 H = 731-0) MONO x10^3 (test code 0.88 10*3/uL 0.33-0.92 = 742-7) EOS x10^3 (test code = 0.24 10*3/uL 0.03-0.39 711-2) BASO x10^3 (test code 0.01-0.07 = 704-7) Lab Interpretation Abnormal (test code = 20714-3) [facility] [id number] 22:11:29 Test Item Value Reference Range Interpretation Comments RHIG CANDIDATE? No- see comment Patient i s not a (test code = candidate for R hIg- 5055) Patient is Rh Positive.Perfor med at [facility] Laboratory Services - [facility] Blood [address] [place] [id number] Free: [phone] A No. [id number] [facility]Type [facility] Screen - ONCE [id number] 19:20:41 Test Item Value Reference Range Interpretation Comments ABO & RH (test code O Positive Performe d at [facility] = 20) Laboratory Serv Formerly [facility] [place], [place] [address]Toll Free: [phone] A No. [id number] IAT (test code = Negative Performed a t [facility] 1185) Laboratory Serv [facility] [place], [place] [address]Toll Free: [phone] A No. [id number] [facility]/O SPECIFIC [id number] 16:37:00 Test Item Value Reference Range Interpretation Comments POCT PH U (test code = 3254) n/a 5-8 POCT U LEUK EST (test code = 3263) n/a Negative - Negative POCT U NIT (test code = 3262) n/a Negative - Negative POCT U PROT (test code = 3259) neg Negative - Negative POCT U GLU (test code = 3256) neg Negative - Negative POCT U KETONE (test code = 3258) n/a Negative - Negative POCT U BLD (test code = 3257) n/a Negative - Negative [facility] SPEC[facility] [id number] 20:37:00 Test Item Value Reference Range Interpretation Comments POCT PH U (test code = 3254) n/a 5-8 POCT U LEUK EST (test code = n/a Negative - Negative 3263) POCT U NIT (test code = 3262) n/a Negative - Negative POCT U PROT (test code = 3259) negative Negative - Negative POCT U GLU (test code = 3256) negative Negative - Negative POCT U KETONE (test code = 3258) n/a Negative - Negative POCT U BLD (test code = 3257) n/a Negative - Negative [facility] SPECIFIC [id number] 19:10:00 Test Item Value Reference Range Interpretation Comments POCT PH U (test code = 3254) 7 mg/dl 5-8 POCT U LEUK EST (test code = Negative Negative - Negative 3263) POCT U NIT (test code = 3262) Negative Negative - Negative POCT U PROT (test code = 3259) Trace Negative - Negative POCT U GLU (test code = 3256) Negative Negative - Negative POCT U KETONE (test code = 3258) Negative Negative - Negative POCT U BLD (test code = 3257) Negative Negative - Negative [facility] [id number] 18:32:00 Test Item Value Reference Range Interpretation Comments POCT PH U (test code = 3254) n/ 5-8 POCT U LEUK EST (test code = n/a Negative - Negative 3263) POCT U NIT (test code = 3262) n/a Negative - Negative POCT U PROT (test code = 3259) trace Negative - Negative POCT U GLU (test code = 3256) negative Negative - Negative POCT U KETONE (test code = 3258) n/a Negative - Negative POCT U BLD (test code = 3257) n/a Negative - Negative [facility] URINALYSIS W/O SPECIFIC [id number] 20:11:00 Test Item Value Reference Range Interpretation Comments POCT PH U (test code = 3254) n/a 5-8 POCT U LEUK EST (test code = n/a Negative - Negative 3263) POCT U NIT (test code = 3262) n/a Negative - Negative POCT U PROT (test code = 3259) negative Negative - Negative POCT U GLU (test code = 3256) negative Negative - Negative POCT U KETONE (test code = 3258) n/a Negative - Negative POCT U BLD (test code = 3257) n/a Negative - [facility] [id number] 15:16:00 Test Item Value Reference Range Interpretation Comments POCT PH U (test code = 3254) n/a 5-8 POCT U LEUK EST (test code = n/a Negative - Negative 3263) POCT U NIT (test code = 3262) n/a Negative - Negative POCT U PROT (test code = 3259) negative Negative - Negative POCT U GLU (test code = 3256) negative Negative - Negative POCT U KETONE (test code = 3258) n/a Negative - Negative POCT U BLD (test code = 3257) n/a Negative - Negative [facility] URINALYSIS W/O SPECIFIC [id number] 18:07:00 Test Item Value Reference Range Interpretation Comments POCT PH U (test code = 3254) n/a 5-8 POCT U LEUK EST (test code = 3263) n/a Negative - Negative POCT U NIT (test code = 3262) n/a Negative - Negative POCT U PROT (test code = 3259) trace Negative - Negative POCT U GLU (test code = 3256) normal Negative - Negative POCT U KETONE (test code = 3258) n/a Negative - Negative POCT U BLD (test code = 3257) n/a Negative - Negative [facility] URINALYSIS W/O SPECIFIC [id number] 16:20:00 Test Item Value Reference Range Interpretation Comments POCT PH U (test code = 3254) N/A 5-8 POCT U LEUK EST (test code = N/A Negative - Negative 3263) POCT U NIT (test code = 3262) N/A Negative - Negative POCT U PROT (test code = 3259) Negative Negative - Negative POCT U GLU (test code = 3256) Negative Negative - Negative POCT U KETONE (test code = 3258) N/A Negative - Negative POCT U BLD (test code = 3257) N/A Negative - Negative [facility] URINALYSIS W/O SPECIFIC [id number] 16:23:00 Test Item Value Reference Range Interpretation Comments POCT PH U (test code = 3254) 6 mg/dl 5-8 POCT U LEUK EST (test code = + Negative - Negative 3263) POCT U NIT (test code = 3262) negative Negative - Negative POCT U PROT (test code = 3259) Negative Negative - Negative POCT U GLU (test code = 3256) Normal Negative - Negative POCT U KETONE (test code = 3258) negative Negative - Negative POCT U BLD (test code = 3257) negative Negative - Negative [facility] URINALYSIS W/O SPECIFIC [id number] 15:48:00 Test Item Value Reference Range Interpretation Comments POCT PH U (test code = 3254) N/A 5-8 POCT U LEUK EST (test code = N/A Negative - Negative 3263) POCT U NIT (test code = 3262) N/A Negative - Negative POCT U PROT (test code = 3259) Negative Negative - Negative POCT U GLU (test code = 3256) Negative Negative - Negative POCT U KETONE (test code = 3258) N/A Negative - Negative POCT U BLD (test code = 3257) N/A Negative - Negative [facility] [id number] 15:48:00 Test Item Value Reference Range Interpretation Comments POCT PREG (test code = 1605) Positive On board controls acceptable with C Yes Line (test code = 3574) POCT PREG LOT # (test code = 3575) POCT PREG TEST DATE (test code = 3576) [facility] HospitalSTREP A [id number] 00:00:00 Test Item Value Reference Range Interpretation Comments Result (test code = 27428-2) Negative XR RIBS 4+ VW [id number] 06:28:07 No radiographic evidence for acute cardiopulmonary disease. No left rib fracture identified. RL: 460 AFC: [id number] Ordering physician: ELSA CAR INDICATION: Left chest wall pain COMPARISON: None FINDINGS: PA view of the chest and 3 views of the left ribs. Thecardiopericardial silhouette is within normal limits. The lungs are cl earbilaterally. No definite left rib fracture is appreciated. [facility], Radiant Results Inft User - 02/21/2021 1:29 AM CDTOrdering physician: ELSA CARINDICATION: Left chest wall painCOMPARISON: NoneFINDINGS: PA view of the chest and 3 views of the left ribs. Thecardiopericardial silhouette is within normal limits. The lungs are clearbilaterally. No definite left rib fracture is appreciated.IMPRESSIONNo radiographic evidence for acute cardiopulmonary disease.No left rib fracture identified.RL: 460AFC: [id number] signed by Celia Arriola MD, PhD at 02/21/2021 1:28 AM[facility] HospitalD-[id number] 05:35:13 Test Item Value Reference Interpretation Comments Range D-DIMER (test code = <0.27 See_Comment [Autom ated [id number]) message] The system which generated this result transmitted reference range : <0.41 ?g/mL (FEU). The reference range was not used to interpret this result as normal/abnormal . DENYS (test code = This test may be DENYS) used in conjunction with a clinical pretest probability (PTP) assessment model to exclude venous thromboembolism (VTE) in patients suspected of deep venous thrombosis (DVT) and pulmonary embolism (PE) A D-Dimer value less than 0.50 ?g/ml (FEU) has a negative predicative value of 96 to 100% (95% CI)and 97 to 100% (95% CI) as an aid in the diagnosis of deep vein thrombosis (DVT) and pulmonary embolism when there is low or moderate pretest probability of PE or DVT. D-Dimer values are expressed in initial fibrinogen equivalent units (FEU)" The assay results should be used with other information, including the clinical context, in forming a diagnosis. Lab Interpretation Normal (test code = 08848-5) [facility] HospitalN-TERMINAL [id number] 05:20:34 Test Item Value Reference Range Interpretation Comments NT-proBNP (test code <11 See_Comment [Autom ated = [id number]) message] The system which generated this result transmitted reference range : <=125 pg/mL. Th e reference range was not used to interpret this result as normal/abnormal . DENYS (test code = DENYS) Biotin has been reported to cause a negative bias, interpret results relative to patient's use of biotin. Lab Interpretation Normal (test code = 74815-3) [facility] HospitalURINALYSIS2021-04-08 02:07:19 Test Item Value Reference Range Interpretation Comments APPEARANCE (test code = Hazy Clear A 7408204814) COLOR (test code = Straw Yellow A 3706781342) PH (test code = 4.8-8.0 0357010440) SP GRAVITY (test code = 1.003-1.030 2945103421) GLU U QUAL (test code = Normal Normal 4316609625) BLOOD (test code = Negative Negative 4175374151) KETONES (test code = 5 mg/dL Negative A 1333407680) PROTEIN (test code = Negative Negative 2887-8) UROBILIN (test code = Normal Normal 4879016650) BILIRUBIN (test code = Negative Negative 0314551223) NITRITE (test code = Negative Negative 8264070036) LEUK ALEKSANDER (test code = 75/uL Negative A 4745868321) RBC/HPF (test code = See_Comment H [Autom ated message] 1867329694) The system [employer] generated this result transmitted ref erence range: 0 - 3 HP F. The reference range was not used to int erpret this result as normal/abnormal . WBC/HPF (test code = See_Comment H [Autom ated message] 5391183439) The system [employer] generated this result transmitted ref erence range: 0 - 5 HP F. The reference range was not used to int erpret this result as normal/abnormal . BACTERIA (test code = Few Negative A 7312420510) SQ EPITH (test code = HPF 4749999800) Lab Interpretation (test Abnormal code = 79610-3) [facility] [id number] 01:40:00 Test Item Value Reference Range Interpretation Comments POCT PREG (test code = 1605) NEG On board controls acceptable with YES C Line (test code = 3574) POCT PREG LOT # (test code = 3575) [id number] POCT PREG TEST DATE (test 07/16/2022 code = 3576) Lab Interpretation (test code = Normal 73945-1) [facility] HospitalCB WITH [id number] 06:36:00 Test Item Value Reference Range Interpretation Comments WBC (test code = See_Comment H [Automated 4690-2) message] The sy stem which generated this result transmitted reference range : 4.30 - 11.10 10*3/?L. The reference range was not used to interpret this result as normal/abnormal . RBC (test code = See_Comment L [Automated 239-8) message] The sy stem which generated this result transmitted reference range : 3.93 - 5.25 10*6/?L. The reference range was not used to interpret this result as normal/abnormal . HGB (test code = 11.0 g/dL 11.6-15 L 718-7) HCT (test code = 33.2 % 35.7-45.2 L 4544-3) MCV (test code = 93.0 fL 80.6-95.5 787-2) MCH (test code = 30.8 pg 25.9-32.8 785-6) MCHC (test code = 33.1 g/dL 31.6-35.1 786-4) RDW-SD (test code = 47.6 fL 39-49.9 11809-8) RDW-CV (test code = 14.1 % 12-15.5 788-0) PLT (test code = See_Comment L [Automated 777-3) message] The sy stem which generated this result transmitted reference range : 166 - 358 10*3/ ?L. The reference r tawny was not used to interpret this result as normal/abnormal . MPV (test code = 12.7 fL 9.5-12.9 02948-6) NRBC/100 WBC (test See_Comment [Automat ed code = 4344451468) message] The system which generated this result transmitted reference range : 0.0 - 10.0 /100 WBCs. The refer ence range was not u sed to interpret th is result as normal/abnormal . NRBC x10^3 (test code <0.01 See_Comment [Auto mated = 3883544890) message] The s ystem which generated this result transmitted reference range : 10*3/?L. The reference range was not used to interpret this result as normal/abnormal . GRAN MAT (NEUT) % 64.5 % (test code = 770-8) IMM GRAN % (test code 0.50 % = 7902668970) LYMPH % (test code = 26.6 % 736-9) MONO % (test code = 5.7 % 5905-5) EOS % (test code = 2.5 % 713-8) BASO % (test code = 0.2 % 706-2) GRAN MAT x10^3(ANC) 8.20 10*3/uL 1.88-7.09 H (test code = 0891172589) IMM GRAN x10^3 (test 0.07 10*3/uL 0-0.06 H code = 2869374931) LYMPH x10^3 (test code 3.39 10*3/uL 1.32-3.29 H = 731-0) MONO x10^3 (test code 0.72 10*3/uL 0.33-0.92 = 742-7) EOS x10^3 (test code = 0.32 10*3/uL 0.03-0.39 711-2) BASO x10^3 (test code 0.03 10*3/uL 0.01-0.07 = 704-7) Lab Interpretation Abnormal (test code = 91982-9) [facility] HospitalRHO (D) IMMUNE [id number] 16:58:51 Test Item Value Reference Range Interpretation Comments RHIG CANDIDATE? No- see comment Patient i s not a (test code = candidate for R hIg- 5055) Patient is Rh Positive.Perfor med at [facility] Laboratory Services - [facility] Blood [address] [place], [place] [address]Toll Free: [phone] A No. [id number] [facility] HospitalVenous Cord [id number] 14:44:00 Test Item Value Reference Range Interpretation Comments VENOUS BASE EXCESS, mEq/L CORD (test code = 1416769724) VENOUS PH, CORD (test 7.25-7.45 code = 3184397288) VENOUS PC02, CORD See_Comment [Automate d message] The (test code = system which ge nerated 7530986230) this result tra nsmitted reference range : 27 - 49 mmHg. The refer ence range was not used to interpret this result as normal/abnormal . VENOUS PO2, CORD (test See_Comment [Aut omated message] The code = 4683766382) system [facility] generated this result tra nsmitted reference range : 17 - 41 mmHg. The refer ence range was not used to interpret this result as normal/abnormal . VENOUS BICARBONATE, See_Comment [Automa trish message] The CORD (test code = system whi ch generated 8276516124) this result tra nsmitted reference range : 12 - 29 mEq/L. The refe rence range was not used to interpret this result as normal/abnormal . [facility] HospitalArterial Cord [id number] 14:41:00 Test Item Value Reference Range Interpretation Comments BASE EXCESS, CORD (test mEq/L code = 0949293232) AC PH, CORD (BEAKER) 7.18-7.38 L (test code = 2880965298) PC02, CORD (test code = See_Comment [Au tomated message] 4241866645) The system [employer] generated this result transmitted ref erence range: 32 - 66 mmHg. The reference r tawny was not used to interpret this result as normal/abnor mal. PO2, CORD (test code = See_Comment [Aut omated message] 4058733105) The system [employer] generated this result transmitted ref erence range: 10 - 30 mmHg. The reference r tawny was not used to interpret this result as normal/abnor mal. BICARBONATE, CORD (test See_Comment [Au tomated message] code = 7170992004) The syste m which generated this result transmitted ref erence range: 17 - 27 mEq/L. The reference r tawny was not used to interpret this result as normal/abnor mal. Lab Interpretation (test Abnormal code = 21767-4) [facility] OR JOSUE ONLY - [id number] 06:43:00 Test Item Value Reference Range Interpretation Comments RPR (Qualitative) (test code = Nonreactive Nonreactive 17464-1) Lab Interpretation (test code = Normal 73496-6) [facility] HospitalHepatitis B Surface [id number] 05:22:00 Test Item Value Reference Range Interpretation Comments HBsAg Semi-Quantitative (test code = Negative Negative 5195-3) [facility] HospitalHIV 1/2 AG-AB WITH [id number] 19:48:00 Test Item Value Reference Range Interpretation Comments HIV Negative Negative Semi-quantitative (test code = 86285-3) DENYS (test code = Non-reactive for HIV-1 DENYS) antigen and HIV-1/HIV-2 antibodies. ?No laboratory evidence of HIV infection. ?Repeat in 2-4 weeks if acute HIV infection is suspected. [facility] HospitalCORONAVIRUS COVID-19 [id number] 19:37:00 Test Item Value Reference Range Interpretation Comments SARS-CoV-2 (test code = Not Detected Not Detected 79614-2) DENYS (test code = DENYS) ID NOW COVID-19 Assay is an isothermal nucleic acid amplification test intended for the qualitative detection of nucleic acid from SARS-CoV-2 viral RNA in nasopharyngeal ([employer]CHNICIAN) specimens. It is used under Emergency Use Authorization (EUA) by FDA. The limit of detection (LOD) of the assay is 125 Genome Equivalents/mL. A positive result is indicative of the presence of SARS-CoV-2 RNA. ?Clinical correlation with patient history and other diagnostic information is necessary to determine patient infection status. A negative (Not Detected) result does not preclude SARS-CoV-2 infection. Clinical correlation with patient history and other diagnostic information should be used in patient management decisions. Invalid: Please collect a new specimen for repeat patient testing if clinically indicated. Lab Interpretation Normal (test code = 72607-0) [facility] HospitalType and Screen - ONCE [id number] 19:11:56 Test Item Value Reference Range Interpretation Comments ABO & RH (test code O Positive Performe d at [facility] = 20) Laboratory [facility] [place], [place] [id number] Free: [phone] A No. [id number] IAT (test code = Negative Performed a t [facility] 1185) Laboratory [facility] [address] [place], [place] [id number] Free: [phone] A No. [id number] [facility] HospitalCBC WITH [id number] 18:39:00 Test Item Value Reference Range Interpretation Comments WBC (test code = See_Comment [Automated 7763-2) message] The sy stem which generated this result transmitted reference range : 4.30 - 11.10 10*3/?L. The reference range was not used to interpret this result as normal/abnormal . RBC (test code = See_Comment L [Automated 919-8) message] The sy stem which generated this result transmitted reference range : 3.93 - 5.25 10*6/?L. The reference range was not used to interpret this result as normal/abnormal . HGB (test code = 11.5 g/dL 11.6-15 L 718-7) HCT (test code = 34.0 % 35.7-45.2 L 4544-3) MCV (test code = 91.2 fL 80.6-95.5 787-2) MCH (test code = 30.8 pg 25.9-32.8 785-6) MCHC (test code = 33.8 g/dL 31.6-35.1 786-4) RDW-SD (test code = 45.4 fL 39-49.9 26471-8) RDW-CV (test code = 13.8 % 12-15.5 788-0) PLT (test code = See_Comment [Automated 777-3) message] The sy stem which generated this result transmitted reference range : 166 - 358 10*3/ ?L. The reference r tawny was not used to interpret this result as normal/abnormal . MPV (test code = 12.3 fL 9.5-12.9 79892-7) NRBC/100 WBC (test See_Comment [Automat ed code = 0109762229) message] The system which generated this result transmitted reference range : 0.0 - 10.0 /100 WBCs. The refer ence range was not u sed to interpret th is result as normal/abnormal . NRBC x10^3 (test code <0.01 See_Comment [Auto mated = 1483330373) message] The s ystem which generated this result transmitted reference range : 10*3/?L. The reference range was not used to interpret this result as normal/abnormal . GRAN MAT (NEUT) % 68.3 % (test code = 770-8) IMM GRAN % (test code 0.90 % = 1700516962) LYMPH % (test code = 21.3 % 736-9) MONO % (test code = 6.5 % 5905-5) EOS % (test code = 2.8 % 713-8) BASO % (test code = 0.2 % 706-2) GRAN MAT x10^3(ANC) 6.52 10*3/uL 1.88-7.09 (test code = 1086340093) IMM GRAN x10^3 (test 0.09 10*3/uL 0-0.06 H code = 6940730063) LYMPH x10^3 (test code 2.04 10*3/uL 1.32-3.29 = 731-0) MONO x10^3 (test code 0.62 10*3/uL 0.33-0.92 = 742-7) EOS x10^3 (test code = 0.27 10*3/uL 0.03-0.39 711-2) BASO x10^3 (test code <0.03 0.01-0.07 = 704-7) Lab Interpretation Abnormal (test code = 11293-9) [facility] HospitalGLUCOSE 1 HOUR POST [id number] 22:17:00 Test Item Value Reference Range Interpretation Comments GLUC 1 HR (test code = 4906913270) 128 mg/dL 120-170 Lab Interpretation (test code = Normal 91475-6) [facility] HospitalGLUCOSE 1 HOUR POST [id number] 22:17:00 Test Item Value Reference Range Interpretation Comments GLUC 1 HR (test code = 7464811332) 128 mg/dL 120-170 Lab Interpretation (test code = Normal 48010-3) [facility] WITH [id number] 21:45:00 Test Item Value Reference Range Interpretation Comments WBC (test code = See_Comment [Automated 6690-2) message] The sy stem which generated this result transmitted reference range : 4.30 - 11.10 10*3/?L. The reference range was not used to interpret this result as normal/abnormal . RBC (test code = See_Comment L [Automated 639-8) message] The sy stem which generated this result transmitted reference range : 3.93 - 5.25 10*6/?L. The reference range was not used to interpret this result as normal/abnormal . HGB (test code = 11.1 g/dL 11.6-15 L 718-7) HCT (test code = 33.8 % 35.7-45.2 L 4544-3) MCV (test code = 92.1 fL 80.6-95.5 787-2) MCH (test code = 30.2 pg 25.9-32.8 785-6) MCHC (test code = 32.8 g/dL 31.6-35.1 786-4) RDW-SD (test code = 42.2 fL 39-49.9 27119-9) RDW-CV (test code = 12.6 % 12-15.5 788-0) PLT (test code = See_Comment [Automated 777-3) message] The sy stem which generated this result transmitted reference range : 166 - 358 10*3/ ?L. The reference r tawny was not used to interpret this result as normal/abnormal . MPV (test code = 12.7 fL 9.5-12.9 67685-5) NRBC/100 WBC (test See_Comment [Automat ed code = 3583702503) message] The system which generated this result transmitted reference range : 0.0 - 10.0 /100 WBCs. The refer ence range was not u sed to interpret th is result as normal/abnormal . NRBC x10^3 (test code <0.01 See_Comment [Auto mated = 0999465239) message] The s ystem which generated this result transmitted reference range : 10*3/?L. The reference range was not used to interpret this result as normal/abnormal . GRAN MAT (NEUT) % 69.9 % (test code = 770-8) IMM GRAN % (test code 0.70 % = 7389853931) LYMPH % (test code = 19.8 % 736-9) MONO % (test code = 6.1 % 5905-5) EOS % (test code = 3.3 % 713-8) BASO % (test code = 0.2 % 706-2) GRAN MAT x10^3(ANC) 6.81 10*3/uL 1.88-7.09 (test code = 4325703771) IMM GRAN x10^3 (test 0.07 10*3/uL 0-0.06 H code = 7598274036) LYMPH x10^3 (test code 1.93 10*3/uL 1.32-3.29 = 731-0) MONO x10^3 (test code 0.59 10*3/uL 0.33-0.92 = 742-7) EOS x10^3 (test code = 0.32 10*3/uL 0.03-0.39 711-2) BASO x10^3 (test code <0.03 0.01-0.07 = 704-7) Lab Interpretation Abnormal (test code = 69754-4) [facility] WITH [id number] 21:45:00 Test Item Value Reference Range Interpretation Comments WBC (test code = See_Comment [Automated 6690-2) message] The sy stem which generated this result transmitted reference range : 4.30 - 11.10 10*3/?L. The reference range was not used to interpret this result as normal/abnormal . RBC (test code = See_Comment L [Automated 789-8) message] The sy stem which generated this result transmitted reference range : 3.93 - 5.25 10*6/?L. The reference range was not used to interpret this result as normal/abnormal . HGB (test code = 11.1 g/dL 11.6-15 L 718-7) HCT (test code = 33.8 % 35.7-45.2 L 4544-3) MCV (test code = 92.1 fL 80.6-95.5 787-2) MCH (test code = 30.2 pg 25.9-32.8 785-6) MCHC (test code = 32.8 g/dL 31.6-35.1 786-4) RDW-SD (test code = 42.2 fL 39-49.9 63163-4) RDW-CV (test code = 12.6 % 12-15.5 788-0) PLT (test code = See_Comment [Automated 777-3) message] The sy stem which generated this result transmitted reference range : 166 - 358 10*3/ ?L. The reference r tawny was not used to interpret this result as normal/abnormal . MPV (test code = 12.7 fL 9.5-12.9 08818-0) NRBC/100 WBC (test See_Comment [Automat ed code = 9637471663) message] The system which generated this result transmitted reference range : 0.0 - 10.0 /100 WBCs. The refer ence range was not u sed to interpret th is result as normal/abnormal . NRBC x10^3 (test code <0.01 See_Comment [Auto mated = 5167406403) message] The s ystem which generated this result transmitted reference range : 10*3/?L. The reference range was not used to interpret this result as normal/abnormal . GRAN MAT (NEUT) % 69.9 % (test code = 770-8) IMM GRAN % (test code 0.70 % = 2618581688) LYMPH % (test code = 19.8 % 736-9) MONO % (test code = 6.1 % 5905-5) EOS % (test code = 3.3 % 713-8) BASO % (test code = 0.2 % 706-2) GRAN MAT x10^3(ANC) 6.81 10*3/uL 1.88-7.09 (test code = 5110251435) IMM GRAN x10^3 (test 0.07 10*3/uL 0-0.06 H code = 4611592521) LYMPH x10^3 (test code 1.93 10*3/uL 1.32-3.29 = 731-0) MONO x10^3 (test code 0.59 10*3/uL 0.33-0.92 = 742-7) EOS x10^3 (test code = 0.32 10*3/uL 0.03-0.39 711-2) BASO x10^3 (test code <0.03 0.01-0.07 = 704-7) Lab Interpretation Abnormal (test code = 56153-4) [facility] NON-STRESS [id number] 21:09:08 Reactive and reassuring [place] quiescent Gustabo Brock MD ?02/06/2020 ?4:08 PM [facility]O SPECIFIC [id number] 20:26:00 Test Item Value Reference Range Interpretation Comments POCT PH U (test code = 3254) N/A 5-8 POCT U LEUK EST (test code = N/A Negative - Negative 3263) POCT U NIT (test code = 3262) N/A Negative - Negative POCT U PROT (test code = 3259) Trace Negative - Negative POCT U GLU (test code = 3256) Negative Negative - Negative POCT U KETONE (test code = 3258) N/A Negative - Negative POCT U BLD (test code = 3257) N/A Negative - Negative [facility] NON-STRESS [id number] 13:50:27 Reactive and reassuring[place] quiescent Gustabo Brock MD ?02/03/2020 ?8:50 AM [facility] FERN [id number] 13:39:00 Test Item Value Reference Range Interpretation Comments Fern Test (test code = 9103877684) Negative [facility] W/O SPECIFIC [id number] 19:29:00 Test Item Value Reference Range Interpretation Comments POCT PH U (test code = 3254) n/a 5-8 POCT U LEUK EST (test code = 3263) n/a Negative - Negative POCT U NIT (test code = 3262) n/a Negative - Negative POCT U PROT (test code = 3259) neg Negative - Negative POCT U GLU (test code = 3256) neg Negative - Negative POCT U KETONE (test code = 3258) n/a Negative - Negative POCT U BLD (test code = 3257) n/a Negative - Negative Lab Interpretation (test code = Normal 79547-5) [facility] W/O SPECIFIC [id number] 16:47:00 Test Item Value Reference Range Interpretation Comments POCT PH U (test code = 3254) n/a 5-8 POCT U LEUK EST (test code = n/a Negative - Negative 3263) POCT U NIT (test code = 3262) n/a Negative - Negative POCT U PROT (test code = 3259) negative Negative - Negative POCT U GLU (test code = 3256) negative Negative - Negative POCT U KETONE (test code = 3258) n/a Negative - Negative POCT U BLD (test code = 3257) n/a Negative - Negative [facility] HospitalGC & CHLAMYDIA AMPLIFIED [id number] 19:06:00 Test Item Value Reference Range Interpretation Comments C. trachomatis Nucleic Acid (test Negative Negative code = 28523-3) N. gonorrhoeae Nucleic Acid (test Negative Negative code = 71198-7) Lab Interpretation (test code = Normal 79644-7) [facility]Type and Screen - ONCE [id number] 08:41:50 Test Item Value Reference Range Interpretation Comments ABO & RH (test code O POSITIVE Performe d at [facility] = 20) Laboratory [facility] Blood Bank3 [address] [facility] s [address]Vutk Free: [phone] A No. [id number] IAT (test code = Negative Performed a t [facility] 1185) Laboratory [facility] Blood Bank3 [address] [facility] [address]Wdcj Free: [phone] A No. [id number] [facility] - ONCE [id number] 21:54:06 Test Item Value Reference Range Interpretation Comments ABO & RH (test code O Positive Performe d at [facility] = 20) Laboratory [facility] Blood Bank1 [address] [place] [id number] Free: [phone] A No. [id number] IAT (test code = Negative Performed a t [facility] 1185) Laboratory [facility] Blood Bank1 [address] [place] [address]Irve Free: [phone] A No. [id number] [facility] HospitalCBC WITH [id number] 20:52:00 Test Item Value Reference Range Interpretation Comments WBC (test code = See_Comment [Automated 5890-2) message] The sy stem which generated this result transmitted reference range : 4.30 - 11.10 10*3/?L. The reference range was not used to interpret this result as normal/abnormal . RBC (test code = See_Comment L [Automated 049-8) message] The sy stem which generated this result transmitted reference range : 3.93 - 5.25 10*6/?L. The reference range was not used to interpret this result as normal/abnormal . HGB (test code = 11.0 g/dL 11.6-15 L 718-7) HCT (test code = 31.9 % 35.7-45.2 L 4544-3) MCV (test code = 90.6 fL 80.6-95.5 787-2) MCH (test code = 31.3 pg 25.9-32.8 785-6) MCHC (test code = 34.5 g/dL 31.6-35.1 786-4) RDW-SD (test code = 39.8 fL 39-49.9 52886-1) RDW-CV (test code = 12.2 % 12-15.5 788-0) PLT (test code = See_Comment [Automated 777-3) message] The sy stem which generated this result transmitted reference range : 166 - 358 10*3/ ?L. The reference r tawny was not used to interpret this result as normal/abnormal . MPV (test code = 12.4 fL 9.5-12.9 00254-8) NRBC/100 WBC (test See_Comment [Automat ed code = 9316087684) message] The system which generated this result transmitted reference range : 0.0 - 10.0 /100 WBCs. The refer ence range was not u sed to interpret th is result as normal/abnormal . NRBC x10^3 (test code <0.01 See_Comment [Auto mated = 5829430429) message] The s ystem which generated this result transmitted reference range : 10*3/?L. The reference range was not used to interpret this result as normal/abnormal . GRAN MAT (NEUT) % 64.8 % (test code = 770-8) IMM GRAN % (test code 0.80 % = 9726007048) LYMPH % (test code = 21.8 % 736-9) MONO % (test code = 7.8 % 5905-5) EOS % (test code = 4.6 % 713-8) BASO % (test code = 0.2 % 706-2) GRAN MAT x10^3(ANC) 6.68 10*3/uL 1.88-7.09 (test code = 2979442552) IMM GRAN x10^3 (test 0.08 10*3/uL 0-0.06 H code = 8248905068) LYMPH x10^3 (test code 2.24 10*3/uL 1.32-3.29 = 731-0) MONO x10^3 (test code 0.80 10*3/uL 0.33-0.92 = 742-7) EOS x10^3 (test code = 0.47 10*3/uL 0.03-0.39 H 711-2) BASO x10^3 (test code <0.03 0.01-0.07 = 704-7) Lab Interpretation Abnormal (test code = 00574-9) [facility] HospitalUS PELVIS > 14 [id number] 19:57:58HISTORY: Leaking fluid. COMPARISON: None. TECHNIQUE: 4 quadrant ultrasound of was done to evaluate foramniotic fluid volume. FINDINGS: Oligohydramnios noted with small amount of fluid surrounding thebaby. JIM calculated is only 3.61 cm. [facility], Radiant Results Inft User - 01/17/2020 1:59 PM CSTHISTORY: Leaking fluid.COMPARISON: None.TECHNIQUE: 4 quadrant ultrasound of was done to evaluate foramniotic fluid volume.FINDINGS: Oligohydramnios noted with small amount of fluid surrounding thebaby. JIM calculated is only 3.61 cm.[facility] OR [facility] ONLY - WET [id number] 18:46:00 Test Item Value Reference Range Interpretation Comments Wet Prep (test code = Few Epithelial cells 7380149097) [facility] HospitalURINALYSIS2020-03-03 18:32:00 Test Item Value Reference Range Interpretation Comments APPEARANCE (test code = Hazy Clear A 7560661327) COLOR (test code = Yellow Yellow 3995599638) PH (test code = 4.8-8.0 2943829012) SP GRAVITY (test code = 1.003-1.030 2572788273) GLU U QUAL (test code = Normal Normal 5480154763) BLOOD (test code = Negative Negative 0105230378) KETONES (test code = Negative Negative 7220239511) PROTEIN (test code = Negative Negative 2887-8) UROBILIN (test code = Normal Normal 3931082753) BILIRUBIN (test code = Negative Negative 5364889600) NITRITE (test code = Negative Negative 5889068760) LEUK ALEKSANDER (test code = 250/uL Negative A 9559487562) RBC/HPF (test code = See_Comment [Autom ated message] 1996992401) The system [employer] generated this result transmitted ref erence range: 0 - 3 HP F. The reference range was not used to int erpret this result as normal/abnormal . WBC/HPF (test code = See_Comment H [Autom ated message] 3061164099) The system [employer] generated this result transmitted ref erence range: 0 - 5 HP F. The reference range was not used to int erpret this result as normal/abnormal . BACTERIA (test code = Few Negative A 6611001188) MUCOUS (test code = Moderate Negative LPF A 7714705743) SQ EPITH (test code = HPF 4347994238) Lab Interpretation (test Abnormal code = 48653-0) [facility] ONLY - FERN [id number] 18:11:00 Test Item Value Reference Range Interpretation Comments Fern Test (test code = 6989065511) Negative [facility]IS2020-02-24 23:59:00 Test Item Value Reference Range Interpretation Comments APPEARANCE (test code = Hazy Clear A 3131743370) COLOR (test code = Yellow Yellow 1332897577) PH (test code = 4.8-8.0 7172632008) SP GRAVITY (test code = 1.003-1.030 8415801778) GLU U QUAL (test code = Normal Normal 9402644144) BLOOD (test code = Negative Negative INTERFERE NCE FROM 9414219921) ASCORBIC ACID M AY CAUSE FALSE NEG ATIVE RESULT KETONES (test code = Negative Negative 6962432639) PROTEIN (test code = Negative Negative 2887-8) UROBILIN (test code = Normal Normal 6668090454) BILIRUBIN (test code = Negative Negative 9237965802) NITRITE (test code = Negative Negative 0893944486) LEUK ALEKSANDER (test code = 250/uL Negative A 8105252464) RBC/HPF (test code = See_Comment [Autom ated message] 4411154817) The system [employer] generated this result transmitted ref erence range: 0 - 3 HP F. The reference range was not used to int erpret this result as normal/abnormal . WBC/HPF (test code = See_Comment [Autom ated message] 7699994393) The system [employer] generated this result transmitted ref erence range: 0 - 5 HP F. The reference range was not used to int erpret this result as normal/abnormal . BACTERIA (test code = Moderate Negative A 0403707228) MUCOUS (test code = Marked Negative LPF A 6088992811) SQ EPITH (test code = HPF 1263862767) Lab Interpretation (test Abnormal code = 73041-8) [facility] HospitalCOM. METABOLIC PANEL (01265)2020-01-09 23:51:00 Test Item Value Reference Range Interpretation Comments NA (test code = 137 mmol/L 135-145 3257184743) K (test code = 4.1 mmol/L 3.5-5 2019570434) CL (test code = 106 mmol/L 98-108 0058024602) CO2 TOTAL (test code = 24 mmol/L 23-31 7438292823) AGAP (test code = 2-16 9566208996) BUN (test code = 11 mg/dL 7-23 9466687593) GLUCOSE (test code = 94 mg/dL 70-110 3801142902) CREATININE (test code = 0.30 mg/dL 0.5-1.04 L 2533816626) TOTAL BILI (test code = 0.1 mg/dL 0.1-1.6 3159623092) CALCIUM (test code = 9.2 mg/dL 8.6-10.6 8110261814) T PROTEIN (test code = 7.2 g/dL 6.3-8.2 9460811839) ALBUMIN (test code = 3.9 g/dL 3.5-5 5570975055) ALK PHOS (test code = 99 U/L 34-122 0058988686) ALTv (test code = 14 U/L 5-35 1742-6) AST(SGOT) (test code = 24 U/L 13-40 9925558709) eGFR Calculation mL/min/1.73m2 (Non-) (test code = 6750065018) eGFR Calculation mL/min/1.73m2 () (test code = 5968938883) DENYS (test code = DENYS) Association of Glomerular Filtration Rate (GFR) and Staging of Kidney Disease* + --+ --+ ------+| GFR (mL/min/1.73 m2) ?| With Kidney Damage ?| ?Without Kidney Damage+ --------+ --------+ +| ?>90 ?| ?Stage one ?| ? Normal ?+ ---+ ---+ -------+| ?60-89 ?| ?Stage two ?| ? Decreased GFR ? + --+ --+ ------+| ?30-59 ?| ?Stage three ?| ? Stage three ? + --+ --+ ------+| ?15-29 ?| ?Stage four ? | ? Stage four ?+ ---+ ---+ -------+| ?<15 (or dialysis) ? ?| ?Stage five ? | ? Stage five ?+ ---+ ---+ -------+ *Each stage assumes the associated GFR level has been in effect for at least three months. ?Stages 1 to 5, with or without kidney disease, indicate chronic kidney disease. Notes: Determination of stages one and two (with eGFR >59mL/min/1.73 m2) requires estimation of kidney damage for at least three months as defined by structural or functional abnormalities of the kidney, manifested by either:Pathological abnormalities or Markers of kidney damage (including abnormalities in the composition of the blood or urine or abnormalities in imaging tests). Lab Interpretation Abnormal (test code = 84430-5) [facility] HospitalLIPASE2020-02-24 23:50:00 Test Item Value Reference Range Interpretation Comments LIPASE (test code = 7878875834) 61 U/L 0-220 Lab Interpretation (test code = Normal 58988-7) [facility] HospitalAMYLASE2020-02-24 23:49:00 Test Item Value Reference Range Interpretation Comments GIANNI (test code = 2579170600) 92 U/L 35-110 Lab Interpretation (test code = Normal 55820-1) [facility] HospitalCB WITH [id number] 23:36:00 Test Item Value Reference Range Interpretation Comments WBC (test code = See_Comment H [Automated 2663-2) message] The sy stem which generated this result transmitted reference range : 4.30 - 11.10 10*3/?L. The reference range was not used to interpret this result as normal/abnormal . RBC (test code = See_Comment L [Automated 890-8) message] The sy stem which generated this result transmitted reference range : 3.93 - 5.25 10*6/?L. The reference range was not used to interpret this result as normal/abnormal . HGB (test code = 10.8 g/dL 11.6-15 L 718-7) HCT (test code = 32.9 % 35.7-45.2 L 4544-3) MCV (test code = 92.4 fL 80.6-95.5 787-2) MCH (test code = 30.3 pg 25.9-32.8 785-6) MCHC (test code = 32.8 g/dL 31.6-35.1 786-4) RDW-SD (test code = 40.2 fL 39-49.9 20649-2) RDW-CV (test code = 11.9 % 12-15.5 L 788-0) PLT (test code = See_Comment [Automated 777-3) message] The sy stem which generated this result transmitted reference range : 166 - 358 10*3/ ?L. The reference r tawny was not used to interpret this result as normal/abnormal . MPV (test code = 11.9 fL 9.5-12.9 68784-9) NRBC/100 WBC (test See_Comment [Automat ed code = 6587245620) message] The system which generated this result transmitted reference range : 0.0 - 10.0 /100 WBCs. The refer ence range was not u sed to interpret th is result as normal/abnormal . NRBC x10^3 (test code <0.01 See_Comment [Auto mated = 3855355855) message] The s ystem which generated this result transmitted reference range : 10*3/?L. The reference range was not used to interpret this result as normal/abnormal . GRAN MAT (NEUT) % 66.2 % (test code = 770-8) IMM GRAN % (test code 1.10 % = 4006191912) LYMPH % (test code = 21.5 % 736-9) MONO % (test code = 7.1 % 5905-5) EOS % (test code = 3.9 % 713-8) BASO % (test code = 0.2 % 706-2) GRAN MAT x10^3(ANC) 8.38 10*3/uL 1.88-7.09 H (test code = 8616203254) IMM GRAN x10^3 (test 0.14 10*3/uL 0-0.06 H code = 3512773031) LYMPH x10^3 (test code 2.72 10*3/uL 1.32-3.29 = 731-0) MONO x10^3 (test code 0.90 10*3/uL 0.33-0.92 = 742-7) EOS x10^3 (test code = 0.49 10*3/uL 0.03-0.39 H 711-2) BASO x10^3 (test code 0.03 10*3/uL 0.01-0.07 = 704-7) Lab Interpretation Abnormal (test code = 92254-1) [facility] HospitalPOAK [facility]INALYSIS W/O SPECIFIC [id number] 22:47:00 Test Item Value Reference Range Interpretation Comments POCT PH U (test code = 3254) n/a 5-8 POCT U LEUK EST (test code = 3263) n/a Negative - Negative POCT U NIT (test code = 3262) n/a Negative - Negative POCT U PROT (test code = 3259) neg Negative - Negative POCT U GLU (test code = 3256) neg Negative - Negative POCT U KETONE (test code = 3258) n/a Negative - Negative POCT U BLD (test code = 3257) n/a Negative - Negative Lab Interpretation (test code = Normal 37200-9) [facility] HospitalSARS-COV 2 AntigenSARS-COV 2 AntigenSARS-COV 2 AntigenSARS-COV 2 Antigen
[2022-11-06] MEDS ORDERED: ONDANSETRON 4 MG/2 ML VIAL ONE (21:57)
[2022-11-06 22:11] LABS: Hematocrit 35.3 % (36.0-45.0); Lymphocytes % 14.7 % (15.3-44.8); MCV 85.1 fL (80-100); MPV 9.4 fL (7.6-11.3); RBC Red Blood Cell Count 4.15 M/uL (3.86-4.86)
[2022-11-06 22:28] LABS: Albumin 2.7 g/dL (3.4-5.0); Bilirubin Direct 0.2 mg/dL (0-0.2); Bilirubin Total 0.5 mg/dL (0.2-1.0); Magnesium 2.2 mg/dL (1.6-2.4); Potassium 3.4 mmol/L (3.5-5.1); Protein, Total 7.6 g/dL (6.4-8.2)
[2022-11-06 22:51] LABS: Urine Blood 3+ (Negative); Urine Glucose Negative (Negative); Urine Protein 2+ (Negative); Urine Specific Gravity 1.025 (1.005-1.030); Urine pH 5.5 (5.0-7.0)
--- NOTE | 2022-11-06 23:02 | RAD REPORT ---
[facility] DES[facility] Protocol - 11/06/2022 10:53 pm CLINICAL HISTORY: FLANK PAIN COMPARISON: No comparisons TECHNIQUE: CT of the abdomen and pelvis was performed without contrast. All CT scans are performed using dose optimization technique as appropriate and may include automated exposure control or mA/KV adjustment according to patient size. FINDINGS: Lower chest: No acute abnormality. Liver: No acute abnormality or suspicious lesions. Biliary: No biliary ductal dilatation. Stomach: No significant focal abnormality. Duodenum: No significant focal abnormality. Pancreas: No significant abnormality. Spleen: No significant abnormality. Adrenal: No suspicious lesions. Kidney/ureter: No hydronephrosis. No renal calculi. Mild right-sided perinephric stranding and right renal enlargement. Bolus of the right ureter with mild periureteric stranding. Retroperitoneum: No retroperitoneal adenopathy. Vascular: No aneurysm. Bowel: No significant focal abnormality. Peritoneum: No ascites or free air. Bladder: Grossly unremarkable. Reproductive: No adnexal masses. Bones: No acute fracture. Other: n/a IMPRESSION: Mild right-sided perinephric and periureteric stranding could indicate pyelonephritis se condary to an ascending urinary tract infection. No obstructing stone identified.
[2022-11-06 23:12] LABS: Urine Bacteria <20 /HPF (<20); Urine Mucus 4+ /HPF (None Seen); Urine RBC >50 /HPF (None Seen)
[2022-11-06] MEDS ORDERED: CEFTRIAXONE 1000 MG/VIAL ONE ×2 (23:24→23:35)
[2022-11-06] MEDS ORDERED: NA CHLORIDE 0.9% 50 ML IV ONE (23:24)
[2022-11-06] MEDS ORDERED: MORPHINE 4 MG/ML SYR ONE (23:24)
[2022-11-06] MEDS ORDERED: POTASSIUM 25 MEQ EFFERV TAB ONE (23:24)
--- NOTE | 2022-11-06 23:37 | EDPHYS ---
Physician Documentation [facility] Name: Ekaterina Mendez Age: 22 yrs Sex: Female : 2000 Arrival Date: 11/06/2022 Time: 20:58 Bed 5 Private MD: ED Physician Darleen Villarreal HPI: 11/06 21:30 This 22 yrs old Female presents to ER via Ambulatory with complaints of Fever, cp Urinary Problem, Possible Dehydration. Historical: - Allergies: 21:07 No Known Drug Allergies; hb - PMHx: 21:07 Asthma; hb - Immunization history:: Adult Immunizations up to date. - Social history:: Smoking status: Patient denies any tobacco usage or history of. Exam: 22:20 ECG was reviewed by the Attending Physician. cp Vital Signs: 21:06 BP 151 / 101; Pulse 134; Resp 18; Temp 100.8(O); Pulse Ox 100% ; Weight 70.31 kg; hb Height 5 ft. (152.40 cm); Pain 8/10; 21:55 BP 121 / 83; Pulse 121; Resp 30; Pulse Ox 100% on R/A; tw5 22:55 BP 111 / 77; Pulse 124; Resp 20 S; Pulse Ox 100% on R/A; ha1 22:55 Temp 98.6; ha1 23:50 BP 130 / 72; Pulse 116; Resp 19 S; Pulse Ox 100% on R/A; ha1 21:06 Body Mass Index 30.27 (70.31 kg, 152.40 cm) hb MDM: 21:10 Patient medically screened. cp 11/06 21:10 Order name: Basic Metabolic Panel; Complete Time: 22:47 cp 11/06 22:47 Interpretation: Normal except: NA 135; K 3.4; CRE 0.43. cp 11/06 21:10 Order name: CBC with Diff; Complete Time: 22:47 cp 11/06 22:47 Interpretation: Normal except: WBC 13.80; HGB 11.6; HCT 35.3; LYM% 14.7; MN% 12.9; NEUT cp A 9.9; MNA 1.8. 11/06 21:10 Order name: LFT's; Complete Time: 22:47 cp 11/06 22:47 Interpretation: Normal except: AST 11; ALB 2.7; GLOB 4.9; A/G 0.6. cp 11/06 21:10 Order name: Magnesium; Complete Time: 22:47 cp 11/06 21:10 Order name: Lactate w/ 2H reflex if indic.; Complete Time: 22:47 cp 11/06 21:10 Order name: Procalcitonin; Complete Time: 23:15 cp 11/06 21:10 Order name: Blood Culture Adult (2) cp 11/06 21:10 Order name: Urine Microscopic Only; Complete Time: 23:15 cp 11/06 23:15 Interpretation: Normal except: UWBC >50; URBC >50; SQEPI 20-50; MUCUS 4+. cp 11/06 22:51 Order name: Urine Dipstick-Ancillary; Complete Time: 23:15 EDMS 11/06 23:32 Order name: Urine Culture la1 11/06 23:37 Order name: SARS RAPID 11/07 03:21 Order name: CBC with Automated Diff EDCO 11/07 03:34 Order name: Comprehensive Metabolic Panel EDCO 11/06 21:10 Order name: EKG; Complete Time: 21:11 cp 11/06 21:10 Order name: Cardiac monitoring; Complete Time: 22:04 cp 11/06 21:10 Order name: EKG - Nurse/Tech; Complete Time: 22:52 cp 11/06 21:10 Order name: IV Saline Lock; Complete Time: 22:02 cp 11/06 21:10 Order name: Labs collected and sent; Complete Time: 22:02 11/06 21:10 Order name: O2 Per Protocol; Complete Time: 22:02 11/06 21:10 Order name: O2 Sat Monitoring; Complete Time: 22:02 cp 11/06 22:06 Order name: CT Stone Protocol; Complete Time: 23:15 11/07 07:47 Order name: US EDCO 11/06 21:10 Order name: Urine Dipstick-Ancillary (obtain specimen); Complete Time: 22:52 cp 11/06 21:10 Order name: Urine Test (obtain specimen); Complete Time: 22:52 cp EC:20 Rate is 116 beats/min. Rhythm is regular. ID interval is normal. QRS interval is cp normal. QT interval is normal. T waves are Inverted in lead aVR. Interpreted by me. Reviewed by me. Administered Medications: 21:40 Drug: Tylenol 650 mg Route: PO; ha1 21:55 Drug: Zofran (Ondansetron) 4 mg Route: IVP; Site: left antecubital; ha1 22:01 Drug: NS 0.9% (30 ml/kg) 30 ml/kg Route: IV; Rate: bolus; Site: left antecubital; tw5 23:30 Drug: Potassium Effervescent Tablet 25 mEq Route: PO; ha1 23:32 Drug: morphine 4 mg Route: IVP; Infused Over: 4 mins; Site: left antecubital; ha1 23:41 Drug: Rocephin - (cefTRIAXone) 1 grams Route: IVPB; Infused Over: 30 mins; Site: left ha1 antecubital; 23:41 Drug: Rocephin (cefTRIAXone) 1 grams Route: IV; Rate: calculated rate; Site: left ha1 antecubital; Disposition Summary: 11/06/22 23:37 Hospitalization Ordered Hospitalization Status: Inpatient Admission cp Provider: Luis Antonio Stallworth cp Condition: Stable cp Problem: new cp Symptoms: have improved cp Bed/Room Type: Standard cp Location: Telemetry/MedSurg (Inpatient)(11/07/22 09:54) eb Room Assignment: 220(11/07/22 09:54) eb Diagnosis - Pyelonephritis acute - right cp Forms: - Medication Reconciliation Form cp - SBAR form cp Addendum: 11/08/2022 19:02 STAFF ATTESTATION STATEMENT: I was immediately available onsite in the emergency s d2 department for consultation in the care of this patient. I did not see or examine this patient. Darleen Villarreal MD. Signatures: Dispatcher [employer] EDMS William Medeiros FNP-Reynold COMPLAINT EVALUATION SUPERVISOR-Cla1 Alex Epperson PA PA cp Rubi Samuels, MARCIN BURCH Carolina Garcia, Veronika Lowery RN, Tiffany tw5 Darleen Villarreal MD MD sd2 Nahomi Aguilar RN RN 1 Corrections: (The following items were deleted from the chart) 11/07 00:33 11/06 23:37 Telemetry/MedSurg (Inpatient) cp cg 11/07 00:33 11/06 23:37 cp cg 11/07 09:54 00:33 BR ER HOLD cg eb 09:54 00:33 ERHOLD- cg eb
--- NOTE | 2022-11-06 23:37 | ER ---
Nurse's Notes [facility] Name: Ekaterina Mendez Age: 22 yrs Sex: Female : 2000 Arrival Date: 11/06/2022 Time: 20:58 Bed 5 Private MD: Diagnosis: Pyelonephritis acute-right Presentation: 11/06 21:06 Chief complaint: Fever and right flank pain x 4 days, N/V today. Seen by PCP yesterday, hb on Cipro day 2 for UTI. Coronavirus screen: Client presents with at least one sign or symptom that may indicate coronavirus-19. Provider contacted for isolation considerations. Ebola Screen: No symptoms or risks identified at this time. Initial Sepsis Screen: Does the patient meet any 2 criteria? No. Patient's initial sepsis screen is negative. Does the patient have a suspected source of infection? No. Patient's initial sepsis screen is negative. Risk Assessment: Do you want to hurt yourself or someone else? Patient reports no desire to harm self or others. Onset of symptoms was November 03, 2022. 21:06 Method Of Arrival: Ambulatory hb 21:06 Acuity: NADINE 3 hb Historical: - Allergies: 21:07 No Known Drug Allergies; hb - PMHx: 21:07 Asthma; hb - Immunization history:: Adult Immunizations up to date. - Social history:: Smoking status: Patient denies any tobacco usage or history of. Screenin:55 [facility] ED Fall Risk Assessment (Adult) History of falling in the last 3 months, tw5 including since admission No falls in past 3 months (0 pts). Abuse screen: Denies threats or abuse. Denies injuries from another. Nutritional screening: Has had N/V for 3 or more days. Tuberculosis screening: No symptoms or risk factors identified. Assessment: 21:10 General: Appears uncomfortable, Behavior is calm, cooperative. Pain: Complains of pain ha1 in right low back Pain does not radiate. Pain currently is 9 out of 10 on a pain scale. Quality of pain is described as pressure, Alleviated by medications. 21:10 Neuro: Level of Consciousness is awake, alert, obeys commands, Oriented to person, ha1 place, time, situation. Cardiovascular: Capillary refill < 3 seconds Patient's skin is warm and dry. Rhythm is sinus tachycardia. Respiratory: Airway is patent Trachea midline Respiratory effort is even, unlabored, Respiratory pattern is regular, symmetrical, Breath sounds are clear bilaterally. : Reports burning with urination, four days ago, but not today. EENT: No signs and/or symptoms were reported regarding the EENT system. Derm: Skin is pink, warm \\T\\ dry. Musculoskeletal: Circulation, motion, and sensation intact. Range of motion: intact in all extremities. 21:48 General: called lab- spoke to gillian for second set of blood cultures. tw5 21:55 General: Reports "I have been feeling ill for the past 4 days. Body aches, chills, back tw5 pain, and side pain.". Neuro: Level of Consciousness is awake, alert, obeys commands, Oriented to person, place, time, situation. 21:55 GI: Reports intolerance of fluids, nausea, vomiting. tw5 21:55 Cardiovascular: Rhythm is sinus tachycardia. Respiratory: No deficits noted. tw5 22:45 Reassessment: Patient and/or family updated on plan of care and expected duration. Pain ha1 level reassessed. Patient is alert, oriented x 3, equal unlabored respirations, skin warm/dry/pink. going to CT. Vital Signs: 21:06 BP 151 / 101; Pulse 134; Resp 18; Temp 100.8(O); Pulse Ox 100% ; Weight 70.31 kg; hb Height 5 ft. (152.40 cm); Pain 8/10; 21:55 BP 121 / 83; Pulse 121; Resp 30; Pulse Ox 100% on R/A; tw5 22:55 BP 111 / 77; Pulse 124; Resp 20 S; Pulse Ox 100% on R/A; ha1 22:55 Temp 98.6; ha1 23:50 BP 130 / 72; Pulse 116; Resp 19 S; Pulse Ox 100% on R/A; ha1 21:06 Body Mass Index 30.27 (70.31 kg, 152.40 cm) hb ED Course: 20:58 Patient arrived in ED. ja2 21:01 Alex Epperson PA is PHCP. cp 21:01 Darleen Villarreal MD is Attending Physician. cp 21:07 Triage completed. hb 21:08 Arm band placed on. hb 21:25 Nahomi Aguilar, MARCIN is Primary Nurse. ha1 21:54 Inserted saline lock: 22 gauge in left antecubital area, using aseptic technique. Blood tw5 collected. 21:55 Patient has correct armband on for positive identification. Placed in gown. Bed in low tw5 position. Call light in reach. Side rails up X 1. Adult w/ patient. 21:55 Client placed on continuous cardiac and pulse oximetry monitoring. NIBP monitoring tw5 applied. Door closed. Noise minimized. Moved to private room. Warm blanket given. Verbal reassurance given. 21:55 Initial lab(s) drawn, by me, sent to lab. First set of blood cultures drawn by me. tw5 22:02 Basic Metabolic Panel Sent. tw5 22:02 CBC with Diff Sent. tw5 22:02 LFT's Sent. tw5 22:02 Magnesium Sent. tw5 22:54 CT Stone Protocol In Process Unspecified. EDWA 23:36 Luis Antonio Stallworth MD is Hospitalizing Provider. 23:59 SARS RAPID Sent. 1 23:59 Urine Culture Sent. ha1 Administered Medications: 21:40 Drug: Tylenol 650 mg Route: PO; ha1 21:55 Drug: Zofran (Ondansetron) 4 mg Route: IVP; Site: left antecubital; ha1 22:01 Drug: NS 0.9% (30 ml/kg) 30 ml/kg Route: IV; Rate: bolus; Site: left antecubital; tw5 23:30 Drug: Potassium Effervescent Tablet 25 mEq Route: PO; ha1 23:32 Drug: morphine 4 mg Route: IVP; Infused Over: 4 mins; Site: left antecubital; ha1 23:41 Drug: Rocephin - (cefTRIAXone) 1 grams Route: IVPB; Infused Over: 30 mins; Site: left ha1 antecubital; 23:41 Drug: Rocephin (cefTRIAXone) 1 grams Route: IV; Rate: calculated rate; Site: left ha1 antecubital; Medication: 21:55 VIS not applicable for this client. tw5 Outcome: 23:37 Decision to Hospitalize by Provider. 11/07 10:59 Patient left the ED. vg1 Signatures: Dispatcher [employer] EDWA Alex Epperson PA PA cp Baxter, Heather, RN RN hb Garcia, Victoria, RN RN vg1 Debbie Medina Tiffany tw5 Nahomi Aguilar, RN RN ha1 Corrections: (The following items were deleted from the chart) 11/06 21:08 21:06 BP 151 / 101; Pulse 134bpm; Resp 18bpm; Pulse Ox 100%; Temp 100.8F Oral; hb hb 22:57 22:45 Reassessment: Patient and/or family updated on plan of care and expected ha1 duration. Pain level reassessed. Patient is alert, oriented x 3, equal unlabored respirations, skin warm/dry/pink. ha1
--- NOTE | 2022-11-07 00:16 | P.HP ---
Certification for Inpatient Patient admitted to: Inpatient With expected LOS: >2 Midnights Patient will require the following post-hospital care: None Practitioner: I am a practitioner with admitting privileges, knowledge of patient current condition, hospital course, and medical plan of care. Services: Services provided to patient in accordance with Admission requirements found in Title 42 Section 412.3 of the Code of Federal Regulations <William Medeiros - Last Filed: 11/07/22 00:13> Patient History Date of Service: 11/07/22 Reason for admission: Sepsis, pyelonephritis History of Present Illness: 22-year-old female with history of asthma presents emergency department for 3 days of right flank pain, she reports that she was seen by her PCP on Thursday the and started on Cipro for suspected UTI, her pain and fever were worse today which led her to present the emergency department. She was evaluated here in the emergency department labs were significant for potassium 3.4 white blood cell count 13.8 urine 1+ leuk esterase nitrite negative CT abdomen pelvis without contrast shows right-sided pyelonephritis without obstruction, stones. She was treated with IV Rocephin. SIRS criteria present including leukocytosis, tachycardia, fever, lactate less than 2 no hypotension noted. Will admit for further evaluation and management of sepsis, pyelonephritis. - Past Medical/Surgical History -: Asthma -: None Psychosocial/ Personal History: Patient lives at home with family, works for [employer]. - Family History Family History: Reviewed- Non-Contributory - Social History Smoking Status: Never smoker Alcohol use: No CD- Drugs: No Caffeine use: Yes Place of Residence: Home <William Medeiros - Last Filed: 11/07/22 00:13> Date of Service: 11/07/22 <Luis Antonio Stallworth - Last Filed: 11/07/22 16:00> Allergies No Known Drug Allergies Allergy (Unverified 12/15/14 01:18) Unknown No Known Allergies Allergy (Uncoded 03/09/16 02:29) Unknown Review of Systems 10-point ROS is otherwise unremarkable Gastrointestinal: Nausea, Vomiting, Abdominal Pain, Other (Right flank pain) <William Medeiros - Last Filed: 11/07/22 00:13> Physical Examination - Physical Exam General: Alert, In no apparent distress, Oriented x3 HEENT: Atraumatic, PERRLA, Mucous membr. moist/pink, EOMI, Sclerae nonicteric Neck: Supple, 2+ carotid pulse no bruit, No LAD, Without JVD or thyroid abnormality Respiratory: Clear to auscultation bilaterally, Normal air movement Cardiovascular: Regular rate/rhythm, Normal S1 S2 Capillary refill: <2 Seconds Gastrointestinal: Normal bowel sounds, Other (Right CVA tenderness) Musculoskeletal: No tenderness Integumentary: No rashes Neurological: Normal speech, Normal strength at 5/5 x4 extr, Normal tone, Normal affect - Studies Laboratory Data (last 24 hrs) 11/06/22 21:58: WBC 13.80 H, Hgb 11.6 L, Hct 35.3 L, Plt Count 230 11/06/22 21:58: Sodium 135 L, Potassium 3.4 L, BUN 10, Creatinine 0.43 L, Glucose 99, Magnesium 2.2, Total Bilirubin 0.5, AST 11 L, ALT 24, Alkaline Phosphatase 106 <William Medeiros - Last Filed: 11/07/22 00:13> - Studies Laboratory Data (last 24 hrs) 11/06/22 21:58: WBC 13.80 H, Hgb 11.6 L, Hct 35.3 L, Plt Count 230 11/06/22 21:58: Sodium 135 L, Potassium 3.4 L, BUN 10, Creatinine 0.43 L, Gl ucose 99, Magnesium 2.2, Total Bilirubin 0.5, AST 11 L, ALT 24, Alkaline Phosphatase 106 Microbiology Data (last 24 hrs): 11/06/22 22:11 Blood - Blood Anaerobic Blood Culture - Final <Luis Antonio Stallworth - Last Filed: 11/07/22 16:00> Assessment and Plan - Plan Assessment: Sepsis secondary to right-sided pyelonephritis History of asthma Plan: Sepsis secondary to right-sided pyelonephritis: Blood and urine cultures obtained, continue antibioticsRocephin, IV fluids. Await results of culture. History of asthma: As needed nebulizer treatments. DVT PPX: Lovenox Code status: Full Discharge Plan: Home Plan to discharge in: 48 Hours - Advance Directives Does patient have a Living Will: No Does patient have a Durable POA for Healthcare: No - Code Status/Comfort Care Code Status Assessed: Yes (Full code) Critical Care: No Time Spent Managing Pts Care (In Minutes): 55 <William Medeiros - Last Filed: 11/07/22 00:13> - Plan Patient seen and examined on rounds this morning continues with pain, nausea/vomiting improved, appetite improved pain in R flank/CVA tenderness febrile this morning 2mg morphine didn't help, dialudid caused headache gave one dose of toradol which did provide some relief discussed preference to avoid further toradol at this time, risk of BASHIR increase morphine to 4mg q4h f/u cultures <Luis Antonio Stallworth - Last Filed: 11/07/22 16:00>
[2022-11-07 00:35] LABS: SARS-CoV-2 Antigen Rapid Res Negative (Negative)
[2022-11-07] MEDS ORDERED: ONDANSETRON 4 MG/2 ML VIAL IV PRN (00:37)
[2022-11-07] MEDS ORDERED: Ringers Lactate 1,000 ML IV SCH (01:00)
[2022-11-07] MEDS ORDERED: Ringers Lactate 1,000 ML IV ONE (01:12)
[2022-11-07] MEDS ORDERED: HYDROMORPHONE HCL 0.5 MG/0.5 ML INJ IV PRN (01:17)
[2022-11-07 01:39] VITALS: BMI 30.2
[2022-11-07] MEDS ORDERED: HYDROMORPHONE HCL 1 MG/ML INJ IV ONE (02:43)
[2022-11-07] MEDS ORDERED: ONDANSETRON 4 MG/2 ML VIAL ONE (02:44)
[2022-11-07] MEDS ORDERED: HYDROCODONE/APAP 5/325 MG TAB ONE (02:56)
[2022-11-07] MEDS: HYDROCODONE/APAP 5/325 MG TAB PO PRN ×2 (03:00→17:30)
[2022-11-07 03:17] LABS: Absolute Lymphocytes (CBC) 3.3 K/uL (0.7-4.9); Hematocrit 33.4 % (36.0-45.0); Lymphocytes % 25.9 % (15.3-44.8); MCV 85.9 fL (80-100); MPV 9.7 fL (7.6-11.3); RBC Red Blood Cell Count 3.88 M/uL (3.86-4.86)
[2022-11-07 03:32] LABS: Albumin 2.4 g/dL (3.4-5.0); Bilirubin Total 0.4 mg/dL (0.2-1.0); Potassium 3.9 mmol/L (3.5-5.1); Protein, Total 6.8 g/dL (6.4-8.2)
[2022-11-07] MEDS ORDERED: MORPHINE 4 MG/ML SYR IV ONE (03:58)
[2022-11-07] MEDS ORDERED: MORPHINE 2 MG/ML SYR IV PRN (03:59)
[2022-11-07] MEDS: Ringers Lactate 1,000 ML IV SCH ×3 (04:00→18:37)
[2022-11-07] MEDS ORDERED: PROMETHAZINE INJ 25 MG/ML AMP ONE (04:07)
[2022-11-07] MEDS ORDERED: MORPHINE 2 MG/ML SYR ONE (04:08)
[2022-11-07] MEDS: PROMETHAZINE INJ 25 MG/ML AMP IV PRN ×3 (04:17→18:38)
[2022-11-07] MEDS ORDERED: ACETAMINOPHEN 500 MG TAB ONE (07:33)
[2022-11-07] MEDS: ACETAMINOPHEN 500 MG TAB PO PRN (07:43)
--- NOTE | 2022-11-07 07:47 | RAD REPORT ---
EXAM DESCRIPTION: US - Renal Ultrasound-Complete - 11/07/2022 4:32 am CLINICAL HISTORY: R/O abscess, pyelonephritis COMPARISON: Stone Protocol dated 11/06/2022 FINDINGS: Both kidneys are normal in size, shape and echotexture. The right kidney measures 10.9 cm. No hydronephrosis, focal mass or perinephric fluid. The left kidney measures 11.9 cm. No hydronephrosis, focal mass or perinephric fluid. The urinary bladder is incompletely distended without gross abnormality seen. IMPRESSION: No evidence of hydronephrosis. No renal abscess identified.
[2022-11-07] MEDS ORDERED: ENOXAPARIN 40 MG/0.4 ML SQ ONE (08:24)
[2022-11-07] MEDS ORDERED: IBUPROFEN 200 MG TAB PO ONE (08:24)
[2022-11-07] MEDS ORDERED: NA CHLORIDE 0.9% 100 ML IV ONE (08:24)
[2022-11-07] MEDS ORDERED: CEFTRIAXONE 2000 MG/VIAL ONE (08:24)
[2022-11-07] MEDS ORDERED: KETOROLAC 30 MG/ML INJ ONE (08:27)
[2022-11-07] MEDS: ENOXAPARIN 40 MG/0.4 ML SQ SCH (08:33)
[2022-11-07] MEDS: IBUPROFEN 400 MG TAB PO PRN ×2 (08:34→21:45)
[2022-11-07] MEDS: CEFTRIAXONE 2,000 MG in NA CHLORIDE 0.9% 100 ML IV SCH (08:34)
[2022-11-07] MEDS ORDERED: INFLUENZA VACCINE (for 6+ mo) 0.5 ML DOSE IMVAC ONE (09:00)
[2022-11-07] MEDS ORDERED: KETOROLAC 10 MG TAB PO ONE (09:00)
[2022-11-07 11:04] VITALS: O2SAT 100
[2022-11-07] MEDS: MORPHINE 4 MG/ML SYR IV PRN ×2 (13:20→20:23)
[2022-11-08] MEDS: Ringers Lactate 1,000 ML IV SCH ×6 (02:15→20:00)
[2022-11-08] MEDS: PROMETHAZINE INJ 25 MG/ML AMP IV PRN ×4 (02:52→22:46)
[2022-11-08] MEDS: MORPHINE 4 MG/ML SYR IV PRN (02:52)
[2022-11-08 04:28] LABS: Absolute Lymphocytes (CBC) 2.7 K/uL (0.7-4.9); Hematocrit 30.4 % (36.0-45.0); Lymphocytes % 31.6 % (15.3-44.8); MCV 84.2 fL (80-100); MPV 9.6 fL (7.6-11.3); RBC Red Blood Cell Count 3.61 M/uL (3.86-4.86)
[2022-11-08 04:44] LABS: Albumin 2.2 g/dL (3.4-5.0); Bilirubin Total 0.3 mg/dL (0.2-1.0); Potassium 3.7 mmol/L (3.5-5.1); Protein, Total 6.4 g/dL (6.4-8.2)
[2022-11-08] MEDS: ENOXAPARIN 40 MG/0.4 ML SQ SCH ×2 (08:04→08:10)
[2022-11-08] MEDS: CEFTRIAXONE 2,000 MG in NA CHLORIDE 0.9% 100 ML IV SCH (08:04)
[2022-11-08] MEDS ORDERED: POTASSIUM CL SA 10 MEQ TAB PO ONE (09:00)
--- NOTE | 2022-11-08 10:59 | P.PN ---
Subjective Date of Service: 11/08/22 Chief Complaint: Sepsis, pyelonephritis Patient still complaining of nausea right-sided flank pain not tolerate morphine or Dilaudid Review of Systems General: Weakness Genitourinary: As per HPI Physical Examination - Vital Signs Temperature: 98.7 F Blood Pressure: 125/79 Pulse: 94 Respirations: 20 Pulse Ox (%): 98 - Physical Exam General: Alert, Moderate distress HEENT: Atraumatic Neck: Supple Respiratory: Clear to auscultation bilaterally Cardiovascular: No edema, Regular rate/rhythm Gastrointestinal: Normal bowel sounds, No tenderness - Studies Microbiology Data (last 24 hrs): 11/06/22 22:11 Blood - Blood Anaerobic Blood Culture - Final Assessment And Plan - Current Problems (Diagnosis) (1) Pyelonephritis Current Visit: Yes Status: Acute Plan: Patient is 22 years of age admitted with right-sided pyelonephritis still complaining of nausea and pain started patient on fentanyl White count is d eclining patient is anemic mildly normal renal function but cultures are negative so far patient is on Rocephin vital signs stable urinalysis is positive culture is pending
[2022-11-08] MEDS: FENTANYL CITR 100 MCG/2 ML IV PRN ×4 (11:11→22:45)
[2022-11-08] MEDS: ACETAMINOPHEN 500 MG TAB PO PRN ×2 (12:56→22:46)
--- NOTE | 2022-11-08 17:26 | EKG ---
Test Date: 2022-11-06 Test Time: 22:14:20 [employer] Source Intelligence Analyst: MARIO MEASUREMENT RESULTS: Intervals: Rate: 116 WI: 142 QRSD: 72 QT: 328 QTc: 455 [place]: P: 56 WI: 142 QRS: 101 T: 31 INTERPRETIVE STATEMENTS: Sinus tachycardia Rightward axis Borderline ECG No previous ECG available for comparison Electronically Signed On 11-08-22 17:24:32 CLINICAL SUPPORT MANAGER by Christian May
[2022-11-09] MEDS: Ringers Lactate 1,000 ML IV SCH ×4 (00:35→09:20)
[2022-11-09] MEDS: FENTANYL CITR 100 MCG/2 ML IV PRN ×2 (03:22→08:31)
[2022-11-09 04:45] LABS: Absolute Lymphocytes (CBC) 2.7 K/uL (0.7-4.9); Hematocrit 32.9 % (36.0-45.0); MCV 83.4 fL (80-100); MPV 9.1 fL (7.6-11.3); RBC Red Blood Cell Count 3.94 M/uL (3.86-4.86)
[2022-11-09 05:08] LABS: Albumin 2.4 g/dL (3.4-5.0); Bilirubin Total 0.4 mg/dL (0.2-1.0); Protein, Total 6.9 g/dL (6.4-8.2)
[2022-11-09] MEDS: CEFTRIAXONE 2,000 MG in NA CHLORIDE 0.9% 100 ML IV SCH (08:23)
[2022-11-09] MEDS: ENOXAPARIN 40 MG/0.4 ML SQ SCH (08:25)
[2022-11-09] MEDS: PROMETHAZINE INJ 25 MG/ML AMP IV PRN (08:30)
[2022-11-09] MEDS ORDERED: Ringers Lactate 1,000 ML IV SCH (10:06)
--- NOTE | 2022-11-09 10:07 | P.PN ---
Subjective Date of Service: 11/09/22 Chief Complaint: Sepsis, pyelonephritis Patient still complaining of pain and nausea states is been no change in her condition Review of Systems General: Weakness Musculoskeletal: Back Pain Physical Examination - Vital Signs Temperature: 99.4 F Blood Pressure: 147/83 Pulse: 91 Respirations: 18 Pulse Ox (%): 100 - Physical Exam General: Alert, In no apparent distress, Oriented x3 Respiratory: Clear to auscultation bilaterally Cardiovascular: No edema, Normal S1 S2 Musculoskeletal: Other (Mild tenderness in the right flank) Assessment And Plan - Current Problems (Diagnosis) (1) Pyelonephritis Current Visit: Yes Status: Acute Plan: Admitted with pyelonephritis still complaining of pain White count is normal cultures are negative afebrile in the past 24 hours continue with present treatment possible discharge home tomorrow ambulate
--- NOTE | 2022-11-09 16:03 | P.DS ---
Admission Date: 11/07/22 Discharge Date: 11/09/22 Disposition: ROUTINE DISCHARGE Discharge Condition: FAIR Reason for Admission: Sepsis, pyelonephritis - Problems (1) Pyelonephritis Current Visit: Yes Status: Acute Brief History of Present Illness: Patient is 22 years of age admitted with right-sided flank pain and pyelonephritis Hospital Course: CT scan was done that confirmed pyelonephritis she did well during the course of her stay had some nausea vomiting and pain treated with IV Rocephin patient was discharged on Cipro floxacillin twice daily follow-up with primary care physician today's progress note Vital Signs/Physical Exam: Temp Pulse Resp BP Pulse Ox 99.0 F 88 18 134/76 98 11/09/22 12:00 11/09/22 12:00 11/09/22 12:00 11/09/22 12:00 11/09/22 12:00 Laboratory Data at Discharge: WBC 8.30 K/uL (4.3-10.9) 11/09/22 04:33 Hgb 11.1 g/dL (12.0-15.0) L D 11/09/22 04:33 Hct 32.9 % (36.0-45.0) L 11/09/22 04:33 Plt Count 264 K/uL (152-406) 11/09/22 04:33 Sodium 135 mmol/L (136-145) L 11/09/22 04:33 Potassium 4.0 mmol/L (3.5-5.1) 11/09/22 04:33 BUN 5 mg/dL (7-18) L 11/09/22 04:33 Creatinine 0.23 mg/dL (0.55-1.02) L 11/09/22 04:33 Glucose 90 mg/dL (74-106) 11/09/22 04:33 Magnesium 2.2 mg/dL (1.6-2.4) 11/06/22 21:58 Total Bilirubin 0.4 mg/dL (0.2-1.0) 11/09/22 04:33 AST 17 U/L (15-37) 11/09/22 04:33 ALT 24 U/L (13-56) 11/09/22 04:33 Alkaline Phosphatase 93 U/L (45-117) 11/09/22 04:33 Home Medications: Ciprofloxacin HCl [Cipro] 500 mg PO BID 7 Days #14 tab 11/09/22 New Medications: Ciprofloxacin HCl [Cipro] 500 mg PO BID 7 Days #14 tab Followup: Alonso Back DO [Primary Care Provider] -
[2022-11-09 16:32] VITALS: BP 133/74; TEMP 98.6
== END 2022-11-09 17:36 | disposition home or self-care (01) | DRG 872 ==
LOC: ER 20:55 → ERHOLD 11-07 00:09 → 2ND 11-07 10:24
PROVIDERS: ADMIT Hospitalist; ATTEND Internal Medicine Sleep Medicine
DX: A41.9 Sepsis, unspecified organism (principal); N10 Acute pyelonephritis; D64.9 Anemia, unspecified; J45.909 Unspecified asthma, uncomplicated
CPT/HCPCS: 36415; 74176; 76377; 76770; 80048; 80053; 80076; 81003; 81015; 83605; 83735; 84145; 85025; 87040; 87086; 87088; 87811; 93005; 96374; 96375; 99284; J0696; J1170; J1650; J2270; J2405; J2550; J3010; J7120

== ENCOUNTER 2023-09-08 08:53 | Emergency (ER) | payer BC, OTHER ==
--- OUTSIDE RECORDS SUMMARY | 2023-09-08 09:27 | XMS REPORT | Continuity of Care Document ---
:2000 Author Organization [facility] t Address [address] [facility]. [address] [place] [address] Care Team Providers Name Role Phone Gustabo Brock MD Primary Care Physician Alonso Back Attending Clinician Unavailable Neema Mac Attending Clinician Unavailable LANG CASTILLO Attending Clinician Unavailable GUSTABO BROCK Attending Clinician Unavailable ELA RAPHAEL Attending Clinician Unavailable ERIN BREWSTER Attending Clinician Unavailable Erin Brewster MD Attending Clinician Doctor Unassigned, [place] Attending Clinician Unavailable Ela Raphael PA-C Attending Clinician Gustabo Brock MD Attending Clinician SO KAHN Attending Clinician Unavailable So Kahn DO Attending Clinician Evelyne Sutton MA Attending Clinician Unavailable [place] Su RN Attending Clinician Unavailable Chago Bonilla MD Attending Clinician Josy FRASER, [place] Daugherty Attending Clinician Korey Eubanks CRNA Attending Clinician PAIGE ALCALA Attending Clinician Unavailable Cari FRASER, Paige Jaimes Attending Clinician RAISSA PEREA Attending Clinician Unavailable Richard Langley PT, Lyndsay Attending Clinician Unavailable Brit FRASER, Raissa Jaimes Attending Clinician Ultrasound, [facility] Attending Clinician Unavailable Regino Tinoco MD Attending Clinician REGINO TINOCO Attending Clinician Unavailable Nurse, [facility] Attending Clinician Unavailable Odilon Reynolds RN, Ela Attending Clinician Unavailable 2, [facility] Attending Clinician Unavailable Last BURCH, Angelica Alicea Attending Clinician Unavailable VANDANA NARAYANAN Attending Clinician Unavailable Vandana Narayanan DO Attending Clinician Only, Ang Db Test Attending Clinician Unavailable Janine Parks Attending Clinician JANINE WATKINS Attending Clinician Unavailable JAVIER SWANN Attending Clinician Unavailable Leila Frost MD, Javier Attending Clinician [phone] Brendan RN, Neena Black Attending Clinician Unavailable Juan BOYD, Marialuisa Attending Clinician EBRAREEMA WOODSON Attending Clinician Unavailable Ebrahim OUTSIDE SALES ACCOUNT EXECUTIVEReema Attending Clinician Kirsten GORDON Marcella Attending Clinician April BOYD, Elsa Mccloud Attending Clinician Ultrasound, [facility] Attending Clinician Unavailable Fred FRASER, Jhoana Daugherty Attending Clinician Duke Matthew MD Attending Clinician Room, [facility] Attending Clinician Unavailable Sadia FRASER, Carl Attending Clinician Joaquín FRASER, Anders Chavez Attending Clinician 5, [facility] Room Attending Clinician Unavailable PAIGE ALCALA Admitting Clinician Unavailable GUSTABO BROCK Admitting Clinician Unavailable CARL DELGADO Admitting Clinician Unavailable ANDERS YANES Admitting Clinician Unavailable Gustabo Brock MD Admitting Clinician Paige Alcala MD Admitting Clinician Carl Delgado MD Admitting Clinician Anders Yanes MD Admitting Clinician Payers Payer Name Policy Type Policy Number Effective Date Expiration Date Filomena abraham [facility] [id number] 2019 HEALTH CHOICE 00:00:00 [place] [facility] HEALTH [id number] 2022 SELECT 00:00:00 Blue Cross Blue 6 [id number] 2022 [facility] HMO 00:00:00 - [facility] HIM AMBETTER [id number] 2021 FROM [place] 00:00:00 HEALTH Ambetter from [id number] 2021 [facility] 00:00:00 - [facility] Ambetter from [id number] 2021 [facility] 00:00:00 - [facility] Ambetter from [id number] 2021 [facility] 00:00:00 - [facility] Ambetter from [id number] 2021 [facility] 00:00:00 - [facility] Ambetter from [id number] 2021 [facility] 00:00:00 [facility] [id number] 2020 [facility] HEALTH CHOICE 00:00:00 [facility] [id number] 2020 [facility] HEALTH CHOICE 00:00:00 [facility] [id number] 2020 [facility] HE[facility] CHOICE 00:00:00 [facility] Problems Condition Condition Condition Status [...] gestation 0-24 ity of of of 00:00: [place] 00 [facility] Branch [place] Disease Active 2021-11 Univers Bang Bang 0-11 it[place] of contract[place] Pain of Pain of Disease Active 2021-11 Univers round round 0-11 ity of ligament ligament 00:00: [place] during during 00 Medical Bran ch Urinary Urinary Disease Active Univers incontinen incontinen 9-27 it y of ce in ce in 00:00: [place] female female 00 Medical Branch 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 [place] major 00 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 features without without prior prior episode episode Nonintract Nonintract Disease Active U nivers able able 6-10 ity of headache, headache, [place] un[place]if[place] 00 Me dical d d Branch chronicity chronicity pattern, pattern, unspecifie unspecifie d headache d headache type type Dizziness Dizziness Disease Active Uni vers and and 6-02 ity of giddiness giddiness 00:[place] Nausea and Nausea and Disease Active U nivers vomiting vomiting 4-05 ity of during during 00:00: [place] 00 [facility] prior to prior to Branch 22 weeks 22 weeks gestation gestation High risk High risk Disease Active Uni vers , , 4-05 it y of antepartum antepartum [place] Anxiety Anxiety Disease Active Univers disorder, disorder, 4-05 ity of unspecifie unspecifie [place] type d type 00 Medical Branch Liveborn Liveborn Disease Active Unive rs , of , of 5-06 it y of jacobs jacobs [place] , , 00 [place] dical born in born in [facility] by vaginal by vaginal delivery delivery Encounter Encounter Disease Active 2020-0 Uni vers for for 5-04 ity of planned planned 00:00: [place] induction induction 00 [facility] of labor of labor Branch Amniotic Amniotic Disease Active 2020-0 Unive rs fluid fluid 3-20 ity of index index 00:00: [place] decreased decreased 00 [facility] Branch Oligohydra Oligohydra Disease Active 2020-0 U nivers mnios mnios 3-04 ity of 00:00: [place] 00 Medical Branch Disease Active 2020-0 Univers premature premature 3-03 ity of rupture of [place] membranes membranes 00 [facility] (PPROM) (PPROM) [place] with with unknown unknown onset of onset of labor labor Oligohydra Oligohydra Disease Active 2020-0 U nivers mnios in mnios in 3-03 ity of third third 00:00: [place] trimester trimester 00 [facility] Nausea and Nausea and Disease Active 2020-0 U nivers vomiting vomiting 2-24 ity of during during 00:00: [place] 00 [facility] 31 weeks 31 weeks Disease Active 2020-0 Unive rs gestation gestation 1-02 ity of of of 00:00: [place] 00 [facility] 32 weeks 32 weeks Disease Active 2020-0 Unive rs gestation gestation 1-02 ity of of of 00:00: [place] 00 [facility] 33 weeks 33 weeks Disease Active 2020-0 Unive rs gestation gestation 1-02 ity of of of 00:00: [place] 00 [facility] 36 weeks 36 weeks Disease Active 2020-0 Unive rs gestation gestation 1-02 ity of of of 00:00: [place] 00 [facility] 37 weeks 37 weeks Disease Active 2020-0 Unive rs gestation gestation 1-02 ity of of of 00:00: [place] 00 [facility] 38 weeks 38 weeks Disease Active 2020-0 Unive rs gestation gestation 1-02 ity of of of 00:00: [place] 00 [facility] 39 weeks 39 weeks Disease Active 2020-0 Unive rs gestation gestation 1-02 ity of of of 00:00: [place] 00 [facility] High-risk High-risk Disease Active 2020-0 Uni vers 1-02 ity of in third in third 00:00: [place] trimester trimester 00 [facility] 21 weeks 21 weeks Disease Active Unive rs gestation gestation 1-02 ity of of of 00:00: [place] 00 [facility] Branch 26 weeks 26 weeks Disease Active Unive rs gestation gestation 1 ity of of of 00:00: [place] 00 [facility] Branch 29 weeks 29 weeks Disease Active Unive rs gestation gestation 1 ity of of of 00:00: [place] 00 [facility] Branch 30 weeks 30 weeks Disease Active Unive rs gestation gestation 11-17 ity of of of 00:00: [place] 00 [facility] Mild Mild Disease Active Univers intermitte intermitte 9-24 it y of nt asthma nt asthma 00:[place] without without 00 Medical complicati complicati Br anch on on Asthma Asthma Disease Active Overview: Univer s 9-12 ICD10 ity of 00:00: Diagnosis 00 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 Recurrent Recurrent Problem Com mon sinusitis sinusitis Spir [facility] [id number] Enlarged Problem Comm on tonsils [facility] [id number] Tachycardi Problem Comm on a [facility] Graves Graves Problem Common disease disease [facility] Sciatica Sciatic Problem Common pain, Spirit right [facility] [id number] ROBERT Problem Common (generaliz Spirit ed anxiety - CHI disorder) [facility] [id number] Hyperthyro Problem Com mon idism [facility] [id number] Mild Problem Common intermitte Spirit nt [facility] - [id number] Pyelonephr Problem Com mon itis of Spirit right - CHI kidney [facility] [id number] Lower Problem Common urinary Spirit tract - [facility] symptoms [facility] [id number] Right Problem Common flank pain [facility] [id number] Recurrent Problem Com mon UTI [facility] [id number] Body mass Problem Com mon index Spirit [BMI] - CHI 34.0-34.9, [facility] [id number] Other Problem Common obesity Spirit due to - CHI excess [facility] [id number] 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, [facility] Allergies, Adverse Reactions, Alerts Allergy Allergy Status Severity Reaction(s) Onset Inactive Treating Comm ents Source Name Type Date Date Clinician NO KNOWN Drug Active Univers ALLERGIE Class ity of S [facility] Social History Social Habit Start Date Stop Date Quantity Comments Source ASSERTION 2021-12-23 University of 00:00:00 [place] Medical [place] History SDOH University o f Alcohol Frequency [place] M edical [place] History SDME University o f Alcohol Std Drinks [place] [facility] [place] History [facility] University o f Alcohol Binge [place] Medic al [place] History of tobacco Passive smoker Un iversity of use [facility] Sexual orientation Univer sity of [facility] Sex Assigned At [facility] Exposure to 2023-01-01 2023-01-11 Not sure University of SARS-CoV-2 (event) 00:00:00 19:05:00 [facility] Alcohol Comment 2021-06-27 2021-06-27 2x a month Universit y of 00:00:00 00:00:00 [facility] History of Social 2021-06-27 2021-06-27 Univers ity of function 00:00:00 00:00:00 [facility] Alcohol intake 2020-09-18 2020-09-18 Current University of 00:00:00 00:00:00 non-drinker of [facility] (finding) Tobacco use and 2014-03-29 2014-03-29 Smokeless Universit y of exposure 00:00:00 00:00:00 tobacco non-user [facility] dical [place] Tobacco Comment 2014-03-29 2014-03-29 denies smoke Univers ity of 00:00:00 00:00:00 exposure [facility] Smoking Status Start Date Stop Date Source Never Smoker [facility] Medications Ordered Filled Start Stop Current Ordering Indication Dosage Frequency Signature Comments Components Source Medication Medication Date Date Medication? Clinician (SIG) Name Name MethylPREDN MethylPREDN No MethylPRED ISolone ISolone 08-06 NISolone (Tab) 4 MG (Tab) 4 MG 00:00: (Tab) 4 MG 00 ProAir ProAir No 1{puff_ 6xD ProAir RespiClick RespiClick 08-06 as_need RespiClick 108 (90 108 (90 00:00: ed} 108 (90 Base) Base) 00 Base) MCG/ACT MCG/ACT MCG/ACT MethylPREDN MethylPREDN 2022-0 No MethylPRED ISolone ISolone 9-21 NISolone (Tab) 4 MG (Tab) 4 MG 00:00: (Tab) 4 MG 00 ProAir ProAir 0 No 1{puff_ 6xD ProAir RespiClick RespiClick 9-21 as_need RespiClick 108 (90 108 (90 00:00: ed} 108 (90 Base) Base) 00 Base) MCG/ACT MCG/ACT MCG/ACT MethylPREDN MethylPREDN 2022-0 No MethylPRED ISolone ISolone 9-21 NISolone (Tab) 4 MG (Tab) 4 MG 00:00: (Tab) 4 MG 00 ProAir ProAir 0 No 1{puff_ 6xD ProAir RespiClick RespiClick 9-21 as_need RespiClick 108 (90 108 (90 00:00: ed} 108 (90 Base) Base) 00 Base) MCG/ACT MCG/ACT MCG/ACT MethylPREDN MethylPREDN 2022-0 No MethylPRED ISolone ISolone 9-21 NISolone (Tab) 4 MG (Tab) 4 MG 00:00: (Tab) 4 MG 00 ProAir ProAir 0 No 1{puff_ 6xD ProAir RespiClick RespiClick 9-21 as_need RespiClick 108 (90 108 (90 00:00: ed} 108 (90 Base) Base) 00 Base) MCG/ACT MCG/ACT MCG/ACT ciprofloxac 2022-0 Yes [id number] 500mg Take 1 Univers in HCl 500 2-26 tablet by ity of mg tablet 00:00: mouth in [facility] [place] [facility] 00 the Medical morning Branch and 1 tablet in the evening. traMADoL 50 2022-0 Yes [id number] 50mg Take 1 Univ ers mg tablet 2-26 tablet by ity o f 00:00: mouth [place] 00 every 6 Medical (six) Branch hours as needed for Pain (scale 4-6). Indication s: acute pain busPIRone 3-0 2022- No 7.5mg Take 7.5 Un socorro 7.5 mg - 02-09 mg by ity of tablet 09:31: 00:00 mouth in [place] 41 :00 the Medical morning Branch and 7.5 mg in the evening. busPIRone 2022- No 7.5mg Take 7.5 Un socorro 7.5 mg 12-25 mg by ity of tablet 09:31: 00:00 mouth in [place] 41 :00 the Medical morning Branch and 7.5 mg in the evening. SERTraline 2022-0 Yes [id number] 50mg Take 1 U nivers (ZOLOFT) 50 2-09 tablet by ity of mg tablet 00:00: [place] the Medical morning. Branch SERTraline 0 Yes [id number] 50mg Take 1 U nivers (ZOLOFT) 50 2-09 tablet by ity of mg tablet 00:00: [place] the Medical morning. Branch SERTraline 0 Yes [id number] 50mg Take 1 U nivers (ZOLOFT) 50 2-09 tablet by ity of mg tablet 00:00: [place] 00 the Medical morning. Branch SERTraline 0 Yes [id number] 50mg Take 1 U nivers (ZOLOFT) 50 2-09 tablet by ity of mg tablet 00:00: [place] 00 the Medical morning. Branch Amoxicillin Amoxicillin 2022- No 1{table BID Amoxicilli -Pot -Pot 12-04 t} n-Pot Clavulanate Clavulanate 00:00: 00:00 Clavulanat 875-125 MG 875-125 MG 00 :00 e 875-125 MG Fluconazole Fluconazole 2022- No 1{table Fluconazol 150 MG 150 MG 11-28 t} e 150 MG 00:00: 00:00 00 :00 Cipro 500 Cipro 500 2021-11- No 1{table BID Cipro 500 MG MG 01-06 t} MG 00:00: 00:00 00 :00 Cipro 500 Cipro 500 2021-11- No 1{table BID Cipro 500 MG MG 01-06 t} MG 00:00: 00:00 00 :00 ondansetron 2021-11- No 4mg 4 mg, Univ ers (ZOFRAN-ODT 2-20 12-20 Oral, ity of ) 15:30: 14:23 ONCE, 1 [place] disintegrat 00 :00 dose, On Medi kailash ing tablet Tue Branch 4 mg 11/04/22 at 0930, Routine ondansetron 2021-11- No [id number] 4mg Take 1 Univers 4 mg 2-20 12-20 tablet by ity of disintegrat 00:00: 00:00 [place] tablet 00 :00 every 8 Medica l (eight) Branch hours as needed for Nausea and Vomiting (N/V). 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 Branch levonorgest 2021-11- No [id number] 1{devic 1 Device, Univers reL 2-12 12-12 e} Intrauteri ity of (KYLEENA) 23:00: 22:01 [place] 1 00 :00 1 dose, On Lead [employer] Developer Mon Branch 10/27/22 at 1700, Routine levonorgest 2021-11- No [id number] 1{devic Univers reL 2-12 12-12 e} ity of (KYLEENA) 23:00: 22:01 [place] IUD 1 00 :00 Lead [employer] Developer Branch levonorgest 2021-11- No [id number] 1{devic 1 Device, Univers reL 2-12 12-12 e} Intrauteri ity of (KYLEENA) 23:00: 22:01 [place], [place]CE, [place] 1 00 :00 1 dose, On Lead [employer] Developer Mon Branch 10/27/22 at 1700, Routine busPIRone 2021-11 Yes 7.5mg Take 7.5 Uni vers 7.5 mg 2-12 mg by ity of tablet 15:29: mouth in [place] [address] the Medical morning Branch and 7.5 mg in the evening. busPIRone 2021-11 Yes 7.5mg Take 7.5 Uni vers 7.5 mg 2-12 mg by ity of tablet 15:29: mouth in [place] [address] the Medical morning Branch and 7.5 mg in the evening. busPIRone 2021-11 Yes 7.5mg Take 7.5 Uni vers 7.5 mg 2-12 mg by ity of tablet 15:29: mouth in [place] 29 the Medical morning Branch and 7.5 mg in the evening. busPIRone 2021-11 Yes 7.5mg Take 7.5 Uni vers 7.5 mg 2-12 mg by ity of tablet 15:29: mouth in [place] 29 the Medical morning Branch and 7.5 mg in the evening. busPIRone 2021-11 Yes 7.5mg Take 7.5 Uni vers 7.5 mg 2-12 mg by ity of tablet 15:29: mouth in [place] 29 the Medical morning Branch and 7.5 mg in the evening. fluconazole 2021-11 Yes [id number] 200mg Take 1 Univers (DIFLUCAN) 2-09 tablet by ity of 200 mg 00:00: mouth in [place] tablet 00 the Medical morning. Branch fluconazole 2021-11 Yes [id number] 200mg Take 1 Univers (DIFLUCAN) 2-09 tablet by ity of 200 mg 00:00: mouth in [place] tablet 00 the Medical morning. Branch fluconazole 2021-11 Yes [id number] 200mg Take 1 Univers (DIFLUCAN) 2-09 tablet by ity of 200 mg 00:00: mouth in [place] tablet 00 the Medical morning. Branch fluconazole 2021-11 Yes [id number] 200mg Take 1 Univers (DIFLUCAN) 2-09 tablet by ity of 200 mg 00:00: mouth in [place] tablet 00 the Medical morning. Branch fluconazole 2021-11- No [id number] 200mg Take 1 Univers (DIFLUCAN) 2-09 12-20 tablet by ity of 200 mg 00:00: 00:00 mouth in [place] tablet 00 :00 the Medical morning. Branch busPIRone 2021-11 Yes 7.5mg Take 7.5 Uni vers 7.5 mg 1-09 mg by ity of tablet 11:52: mouth in [place] 23 the Medical morning Branch and 7.5 mg in the evening. busPIRone 2021-11 Yes 7.5mg Take 7.5 Uni vers 7.5 mg 1-09 mg by ity of tablet 11:52: mouth in [place] 23 the Medical morning Branch and 7.5 mg in the evening. busPIRone 2021-11 Yes 7.5mg Take 7.5 Uni vers 7.5 mg 1-09 mg by ity of tablet 11:52: mouth in [place] [address] the Medical morning Branch and 7.5 mg in the evening. busPIRone 2021-11 Yes 7.5mg Take 7.5 Uni vers 7.5 mg 1-09 mg by ity of tablet 11:52: mouth in [place] [address] the Medical morning Branch and 7.5 mg in the evening. busPIRone 2021-11 Yes 7.5mg Take 7.5 Uni vers 7.5 mg 1-09 mg by ity of tablet 11:52: mouth in [place] [address] the Medical morning Branch and 7.5 mg in the evening. busPIRone 2021-11 Yes 7.5mg Take 7.5 Uni vers 7.5 mg 1-09 mg by ity of tablet 11:52: mouth in [place] [address] the Medical morning Branch and 7.5 mg in the evening. busPIRone 2021-11 Yes 7.5mg Take 7.5 Uni vers 7.5 mg 1-09 mg by ity of tablet 11:52: mouth in [place] [address] the Medical morning [place] and 7.5 mg in the evening. miSOPROStoL 2021-11 Yes [id number] 200ug Take 1 Univers 200 mcg 1-09 tablet by ity of tablet 00:00: mouth [address] CTIONS. Branch Take one tab the night before and one tab the morning of procedure busPIRone 2021-11 Yes [id number] 7.5mg Take 1 U nivers 7.5 mg 1-09 tablet by ity of tablet 00:00: mouth in [address] and 1 tablet in the evening. miSOPROStoL 2021-11 Yes [id number] 200ug Take 1 Univers 200 mcg 1-09 tablet by ity of tablet 00:00: mouth [address] CTIONS[address] Branch Take one tab the night before and one tab the morning of procedure busPIRone 2021-11 Yes [id number] 7.5mg Take 1 U nivers 7.5 mg 1-09 tablet by ity of tablet 00:00: mouth in [place] [address] the [facility] morning [place] and 1 tablet in the evening. miSOPROStoL 2021-11 Yes [id number] 200ug Take 1 Univers 200 mcg 1-09 tablet by ity of tablet 00:00: mouth [place] 00 [facility] Medical CTIONS. Branch Take one tab the night before and one tab the morning of procedure busPIRone 2021-11 Yes [id number] 7.5mg Take 1 U nivers 7.5 mg 1-09 tablet by ity of tablet 00:00: mouth in [place] 00 the Medical morning Branch and 1 tablet in the evening. miSOPROStoL 2021-11 Yes [id number] 200ug Take 1 Univers 200 mcg 1-09 tablet by ity of tablet 00:00: mouth [place] 00 [facility] Medical CTIONS. Branch Take one tab the night before and one tab the morning of procedure busPIRone 2021-11 Yes [id number] 7.5mg Take 1 U nivers 7.5 mg 1-09 tablet by ity of tablet 00:00: mouth in [place] 00 the Medical morning Branch and 1 tablet in the evening. miSOPROStoL 2021-11 Yes [id number] 200ug Take 1 Univers 200 mcg 1-09 tablet by ity of tablet 00:00: mouth [place] 00 [facility] Medical CTIONS. Branch Take one tab the night before and one tab the morning of procedure busPIRone 2021-11 Yes [id number] 7.5mg Take 1 U nivers 7.5 mg 1-09 tablet by ity of tablet 00:00: mouth in [place] 00 the Medical morning Branch and 1 tablet in the evening. miSOPROStoL 2021-11 Yes [id number] 200ug Take 1 Univers 200 mcg 1-09 tablet by ity of tablet 00:00: mouth [place] 00 [facility] Medical CTIONS. Branch Take one tab the night before and one tab the morning of procedure busPIRone 2021-11 Yes [id number] 7.5mg Take 1 U nivers 7.5 mg 1-09 tablet by ity of tablet 00:00: mouth in [place] 00 the Medical morning Branch and 1 tablet in the evening. miSOPROStoL 2021-11 Yes [id number] 200ug Take 1 Univers 200 mcg 1-09 tablet by ity of tablet 00:00: mouth [address] Medical CTIONS. Branch Take one tab the night before and one tab the morning of procedure busPIRone 2021-11 Yes [id number] 7.5mg Take 1 U nivers 7.5 mg 1-09 tablet by ity of tablet 00:00: mouth in [place] 00 the Medical morning Branch and 1 tablet in the evening. miSOPROStoL 2021-11 Yes [id number] 200ug Take 1 Univers 200 mcg 1-09 tablet by ity of tablet 00:00: mouth [address] Medical CTIONS. Branch Take one tab the night before and one tab the morning of procedure busPIRone 2021-11 Yes [id number] 7.5mg Take 1 U nivers 7.5 mg 1-09 tablet by ity of tablet 00:00: mouth in [place] 00 the Medical morning Branch and 1 tablet in the evening. miSOPROStoL 2021-11 Yes [id number] 200ug Take 1 Univers 200 mcg 1-09 tablet by ity of tablet 00:00: mouth [address] CTIONS[address] Branch Take one tab the night before and one tab the morning of procedure busPIRone 2021-11 Yes [id number] 7.5mg Take 1 U nivers 7.5 mg 1-09 tablet by ity of tablet 00:00: mouth in [place] 00 the [facility] morning Branch and 1 tablet in the evening. miSOPROStoL 2021-11 Yes [id number] 200ug Take 1 Univers 200 mcg 1-09 tablet by ity of tablet 00:00: mouth [address] CTIONS[address] Branch Take one tab the night before and one tab the morning of procedure busPIRone 2021-11 Yes [id number] 7.5mg Take 1 U nivers 7.5 mg 1-09 tablet by ity of tablet 00:00: mouth in [place] 00 the Medical morning Branch and 1 tablet in the evening. busPIRone 2021-11 Yes [id number] 7.5mg Take 1 U nivers 7.5 mg 1-09 tablet by ity of tablet 00:00: mouth in [place] 00 the Medical morning Branch and 1 tablet in the evening. busPIRone 2021-11 Yes [id number] 7.5mg Take 1 U nivers 7.5 mg 1-09 tablet by ity of tablet 00:00: mouth in [place] [address] the Medical morning Branch and 1 tablet in the evening. busPIRone 2021-11- No [id number] 7.5mg Take 1 Univers 7.5 mg 1-09 -09 tablet by ity of tablet 00:00: 00:00 mouth in [place] 00 :00 the Medical morning Branch and 1 tablet in the evening. busPIRone 2021-11- No [id number] 7.5mg Take 1 Univers 7.5 mg 11-24 tablet by ity of tablet 00:00: 00:00 mouth in [place] 00 :00 the Medical morning Branch and 1 tablet in the evening. miSOPROStoL 2021-11- No [id number] 200ug Take 1 Univers 200 mcg 11-24 tablet by ity of tablet 00:00: 00:00 mouth [place] 00 :00 SEE-INSTRU Medical CTIONS. Branch Take one tab the night before and one tab the morning of procedure SERTraline 2021-11 Yes 50mg 50 mg, Unive rs (ZOLOFT) 0-25 Oral, ity of tablet 50 14:00: DAILY, [place] mg 00 First dose Medical on [facility] 09/09/22 at 0900, Until Discontinu ed, Routine 2021-11 Yes 1{tbl} 1 tablet, [facility] vitamin 0-25 Oral, ity of w/FA tablet 14:00: [place] 1 [place] 00 First dose Medic al on [facility] 09/09/22 at 0900, Until Discontinu ed, Routine cetirizine 2021-11- No Take by Uni vers HCl (ZYRTEC 0-25 10-25 mouth. ity o f ORAL) 12:44: 00:00 [place] 53 :00 Medical Branch acetaminoph 2021-11- No Take by [facility] en (TYLENOL 0-25 10-25 mouth. ity o f ORAL) 12:44: 00:00 [place] 53 :00 Medical Branch 2021-11 Yes [id number] 1{tbl} Take 1 [facility] vitamin 0-25 102 tablet by ity of w/FA tablet 00:00: mouth [place] 00 the Medical morning. Branch docusate 2021-11 Yes [id number] 200mg Take 2 [facility] 100 mg 0-25 102 capsules ity of capsule 00:00: by mouth [place] 00 once daily Medical as needed Branch for Constipati on. ferrous 2021-11 Yes [id number] 325mg Take 1 [facility] sulfate 325 0-25 102 tablet by ity of mg (65 mg 00:00: [place] iron[place] 00 the Medical tablet morning Branch and 1 tablet in the evening. ibuprofen 2021-11 Yes [id number] 600mg Take 1 [facility] 600 mg 0-25 102 tablet by ity of tablet 00:00: mouth [place] 00 every 6 Medical (six) Branch hours as needed (Pain). Take with food or milk. 2021-11 Yes [id number] 1{tbl} Take 1 [facility] vitamin 0-25 102 tablet by ity of w/FA tablet 00:00: mouth in [place] 00 the Medical morning. Branch docusate 2021-11 Yes [id number] 200mg Take 2 [facility] 100 mg 0-25 102 capsules ity of capsule 00:00: by mouth [place] 00 once daily Medical as needed Branch for Constipati on. ferrous 2021-11 Yes [id number] 325mg Take 1 [facility] sulfate 325 0-25 102 tablet by ity of mg (65 mg 00:00: [place] iron) 00 the Medical tablet morning Branch and 1 tablet in the evening. ibuprofen 2021-11 Yes [id number] 600mg Take 1 [facility] 600 mg 0-25 102 tablet by ity of tablet 00:00: mouth [place] 00 every 6 Medical (six) Branch hours as needed (Pain). Take with food or milk. 2021-11- No [id number] 1{tbl} Take 1 [facility] vitamin 0-25 11-09 102 tablet by ity of w/FA tablet 00:00: 00:00 mouth in [place] 00 :00 the Medical morning. Branch docusate 2021-11- No [id number] 200mg Take 2 [facility] 100 mg 0-25 11-09 102 capsules ity of capsule 00:00: 00:00 by mouth [place] 00 :00 once daily Medical as needed Branch for Constipati on. ferrous 2021-11- No [id number] 325mg Take 1 [facility] sulfate 325 0-25 11-09 102 tablet by it y of mg (65 mg 00:00: 00:00 mouth in [place] iron) 00 :00 the Medical tablet morning Branch and 1 tablet in the evening. ibuprofen 2021-11- No [id number] 600mg Take 1 [facility] 600 mg 0-25 [...] 0-24 Oral, ity of (TYLENOL) 21:38: Q6HPRN, [place] tablet 650 51 Starting Medic al mg on Thu Branch 09/08/22 at 1638, Until Discontinu ed, Routine, Pain (scale 1-3) diphenhydrA 2021-11 Yes 25mg 25 mg, Univ ers MINE 0-24 Oral, ity of (BENADRYL) 21:38: Q6HPRN, [place] tablet 25 51 Starting Medica l mg on Mon Branch 09/08/22 at 1638, Until Discontinu ed, Routine, Sleep, Itching ondansetron 2021-11 Yes 4mg 4 mg, Slow Univers (ZOFRAN 0-24 IV Push, ity of (PF)) 21:38: Q8HPRN, [place] injection 4 51 Starting Medi kailash mg on Mon Branch 09/08/22 at 1638, Until [...] [place] 20-0.5 % 51 on Thu Medical topical 09/08/22 Branch spray at 1638, Until Discontinu ed, Routine, Perineum discomfort witch Sima 2021-11 Yes Topical, [facility] (TUCKS) 50 0-24 Q4HPRN, ity of % topical 21:24: [place] pad 48 on Thu Medical 09/08/22 Branch at 1624, Until Discontinu [...] 19 Starting Medi kailash tablet 1 on Thu Branch tablet 09/08/22 at 1615, Until Discontinu ed, Routine, Pain (scale 7-10) ibuprofen 2021-11 Yes 600mg 600 mg, Univ ers (IBU) 0-24 Oral, ity of tablet 600 21:15: Q6HPRN, [place] mg 19 Starting Medical on Thu Branch [...] 25 19 Starting Medica l mg on Thu Branch 09/08/22 at 1615, Until Discontinu ed, Routine, Sleep, Itching ondansetron 2021-11 Yes 4mg 4 mg, Slow Univers (ZOFRAN 0-24 IV Push, ity of (PF)) 21:15: Q8HPRN, [place] injection 4 19 Starting Medi kailash mg on Thu Branch 09/08/22 at 1615, Until Discontinu ed, Routine, Nausea [...] Thu Branch suspension 09/08/22 30 mL at 1615, Until [...] IV infusion CTIONS, Branc h Starting on Thu09/08/[address] art at 300 mL/hr for 1 hr then 150 mL/hr for 1 hr. & nbsp; For post delivery uterotonic .
benzocaine- 2021-11 Yes Topical, [facility] [place] menthol 0-24 PRN, ity of (DERMOPLAST 21:15: [place] ) 20-0.5 % 18 on Mon Medical topical 09/08/22 Branch spray at 1615, Until Discontinu ed, Routine, Perineum discomfort fentaNYL-ro 2021-11- No Epidural, Univers pivacaine 2 009-08 ONCE INTRA i ty of mcg/mL-0.1 17:18: 22:23 PROCEDURE, [place] % (PF) in 00 :48 Starting Medica l NS 200 mL on Mon Branch epidural 09/08/22 infusion at 1218, RTU Until Thu09/08/22 at 1723, Routine, Intra-op lidocaine-e 2021-11- No Intraderma Univers pinephrine 0-08 09-24 l, ONCE ity o f (XYLOCAINE 17:13: 22:23 INTRA [place] W/EPINEPHRI 00 :48 PROCEDURE, Me dical NE) 1.5 Starting Branch %-1:200,000 on Mon injection 09/08/22 at 1213, Until 09/08/22 at 1723, Routine, Intra-op lidocaine 2021-11- No [...] (ZYRTEC 0-24 mouth. ity of ORAL) 16:20: [address] acetaminoph 2021-11 Yes Take by Uni vers en (TYLENOL 0-24 mouth. ity of ORAL) 16:20: [address] cetirizine 2021-11 Yes Take by Univ ers HCl (ZYRTEC 0-24 mouth. ity of ORAL) 16:20: [address] acetaminoph 2021-11 Yes Take by Uni vers en (TYLENOL 0-24 mouth. ity of ORAL) 16:20: [address] lactated 2021-11- No 500mL at 999 Unive rs ringers IV 0-24 10-24 mL/hr, 500 it y of infusion 09:30: 16:23 mL, IV [place] 500 mL 00 :13 Infusion, Medical ONCE, 1 Branch dose, On 09/08/22 at 0430, Routine sodium 2021-11- No 30mL 30 mL, Univers citrate-cit 0-24 10-24 Oral, ity of urvashi acid 09:20: 16:24 PRE-PROCED [place] (BICITRA) 25 :00 URE ONCE, Medic al 500-334 1 dose, Branch mg/5 mL Starting solution 30 on Mon mL 09/08/22 at 0420, Until Discontinu ed, Routine, Surgery/Pr ocedure oxytocin 2021-11- No 2mU/min at 2-40 [facility] (PITOCIN) 0-24 10-24 mL/hr, IV ity of 30 units in 09:20: 21:39 Infusion, [place] NS 500 mL 22 :33 TITRATE, Medica l IV infusion Starting Bran ch on 09/08/22 at 0420, Until Thu09/08/22 at 1639, CHERYL [id number] IV 2021-11- No 1000mL at 1-125 U nivers infusion 0-24 10-24 mL/hr, IV ity o f 1,000 mL 09:20: 21:39 Infusion, [place] 22 :33 TITRATE, Medical Starting Branch on Thu09/08/22 at 0420, Until Thu09/08/22 at 1639, Routine FENTanyl PF 2021-11- 100ug 100 mcg, Univers (SUBLIMAZE 0-24 10-24 [...] (ZYRTEC 0-21 mouth. ity of ORAL) 04:58: [address] acetaminoph 2021-11 Yes Take by Uni vers en (TYLENOL 0-21 mouth. ity of ORAL) 04:58: [address] cetirizine 2021-11 Yes Take by Univ ers HCl (ZYRTEC 0-21 mouth. ity of ORAL) 04:58: [address] acetaminoph 2021-11 Yes Take by Uni vers en (TYLENOL 0-21 mouth. ity of ORAL) 04:58: [address] cetirizine 2021-11 Yes Take by Univ ers HCl (ZYRTEC 0-18 mouth. ity of ORAL) 01:08: [address] acetaminoph 2021-11 Yes Take by Uni vers en (TYLENOL 0-18 mouth. ity of ORAL) 01:08: [address] cetirizine 2021-11 Yes Take by Univ ers HCl (ZYRTEC 0-18 mouth. ity of ORAL) 01:08: [address] acetaminoph 2021-11 Yes Take by Uni vers en (TYLENOL 0-18 mouth. ity of ORAL) 01:08: [address] busPIRone 2021-11- No [id number] 7.5mg Take 1 Univers 7.5 mg 0-11 - tablet by ity of tablet 00:00: 04:59 mouth in [place] 00 :00 the Medical morning Branch and 1 tablet in the evening. Do all this for 14 days. busPIRone 2021-11- No [id number] 7.5mg Take 1 Univers 7.5 mg 0-11 10-26 tablet by ity of tablet 00:00: 04:59 mouth in [place] 00 :00 the [facility] morning Branch and 1 tablet in the evening. Do all this for 14 days. busPIRone 2021-11 No [id number] 7.5mg Take 1 Univers 7.5 mg 0-11 10-26 tablet by ity of tablet 00:00: 04:59 mouth in [place] 00 :00 the [facility] morning Branch and 1 tablet in the evening. Do all this for 14 days. busPIRone 2021-11 No [id number] 7.5mg Take 1 Univers 7.5 mg 0-11 10-26 tablet by ity of tablet 00:00: 04:59 mouth in [place] 00 :00 the [facility] and 1 tablet in the evening. Do all this for 14 days. busPIRone 2021-11- No [id number] 7.5mg Take 1 Univers 7.5 mg 0-11 10-26 tablet by ity of tablet 00:00: 04:59 mouth in [place] 00 :00 the [facility] and 1 tablet in the evening. Do all this for 14 days. busPIRone 2021-11 No [id number] 7.5mg Take 1 Univers 7.5 mg 0-11 10-26 tablet by ity of tablet 00:00: 04:59 mouth in [place] 00 :00 the [facility] and 1 tablet in the evening. Do all this for 14 days. busPIRone 2021-11- No [id number] 7.5mg Take 1 Univers 7.5 mg 0-11 10-26 tablet by ity of tablet 00:00: 04:59 mouth in [place] 00 :00 the [facility] and 1 tablet in the evening. Do all this for 14 days. busPIRone 2021-11- No [id number] 7.5mg Take 1 Univers 7.5 mg 0-11 10-26 tablet by ity of tablet 00:00: 04:59 mouth in [place] 00 :00 the [facility] and 1 tablet in the evening. Do all this for 14 days. busPIRone 2021-11- No [id number] 7.5mg Take 1 Univers 7.5 mg 0-11 10-26 tablet by ity of tablet 00:00: 04:59 mouth in [place] 00 :00 the Medical morning Branch and 1 tablet in the evening. Do all this for 14 days. SERTraline 2021-0 Yes [id number] 50mg Take 1 U nivers (ZOLOFT) 50 9-27 tablet by ity of mg tablet 00:00: mouth in [place] 00 the Medical morning. Branch busPIRone 2021-0 Yes [id number] 10mg Take 1 U nivers 10 mg 9-27 tablet by ity of tablet 00:00: mouth in [place] 00 the [facility] morning Branch and 1 tablet in the evening. SERTraline 2021-0 Yes [id number] 50mg Take 1 U nivers (ZOLOFT) 50 9-27 tablet by ity of mg tablet 00:00: [place] 00 the Medical morning. Branch busPIRone 2021-0 Yes [id number] 10mg Take 1 U nivers 10 mg 9-27 tablet by ity of tablet 00:00: mouth in [place] 00 the Medical morning Branch and 1 tablet in the evening. SERTraline 2021-0 Yes [id number] 50mg Take 1 U nivers (ZOLOFT) 50 9-27 tablet by ity of mg tablet 00:00: [place] 00 the Medical morning. Branch busPIRone 2021-0 Yes [id number] 10mg Take 1 U nivers 10 mg 9-27 tablet by ity of tablet 00:00: mouth in [place] [address] the [facility] morning Branch and 1 tablet in the evening. SERTraline 2021-0 Yes [id number] 50mg Take 1 U nivers (ZOLOFT) 50 9-27 tablet by ity of mg tablet 00:00: mouth [place] 00 the Medical morning. Branch SERTraline 2021-0 Yes [id number] 50mg Take 1 U nivers (ZOLOFT) 50 9-27 tablet by ity of mg tablet 00:00: [place] 00 the Medical morning. Branch SERTraline 2021-0 Yes [id number] 50mg Take 1 U nivers (ZOLOFT) 50 9-27 tablet by ity of mg tablet 00:00: [place] 00 the Medical morning. Branch SERTraline 2021-0 Yes [id number] 50mg Take 1 U nivers (ZOLOFT) 50 9-27 tablet by ity of mg tablet 00:00: [place] 00 the Medical morning. Branch SERTraline Yes [id number] 50mg Take 1 U nivers (ZOLOFT) 50 9-27 tablet by ity of mg tablet 00:00: mouth [place] 00 the Medical morning. Branch SERTraline Yes [id number] 50mg Take 1 U nivers (ZOLOFT) 50 9-27 tablet by ity of mg tablet 00:00: mouth [place] 00 the Medical morning. Branch SERTraline Yes [id number] 50mg Take 1 U nivers (ZOLOFT) 50 9-27 tablet by ity of mg tablet 00:00: [place] 00 the Medical morning. Branch SERTraline Yes [id number] 50mg Take 1 U nivers (ZOLOFT) 50 9-27 tablet by ity of mg tablet 00:00: mouth [place] 00 the Medical morning. Branch SERTraline Yes [id number] 50mg Take 1 U nivers (ZOLOFT) 50 9-27 tablet by ity of mg tablet 00:00: [place] 00 the Medical morning. Branch SERTraline Yes [id number] 50mg Take 1 U nivers (ZOLOFT) 50 9-27 tablet by ity of mg tablet 00:00: [place] 00 the Medical morning. Branch SERTraline 2021- No [id number] 50mg Take 1 Univers (ZOLOFT) 50 9-27 11-09 tablet by it y of mg tablet 00:00: 00:00 mouth in [place] 00 :00 the Medical morning. Branch busPIRone 2021- No [id number] 10mg Take 1 Univers 10 mg 9-27 10-11 tablet by ity of tablet 00:00: 00:00 mouth in [place] 00 :00 the Medical morning Branch and 1 tablet in the evening. cetirizine Yes Take by [facility] ers HCl (ZYRTEC 9-21 mouth. ity of ORAL) 19:14: [place] 48 Medical Branch acetaminoph Yes Take by Uni vers en (TYLENOL 9-21 mouth. ity of ORAL) 19:14: [address] cetirizine Yes Take by Univ ers HCl (ZYRTEC 9-21 mouth. ity of ORAL) 19:14: [address] acetaminoph Yes Take by Uni vers en (TYLENOL 9-21 mouth. ity of ORAL) 19:14: [address] cetirizine Yes Take by Univ ers HCl (ZYRTEC 9-21 mouth. ity of ORAL) 19:14: [address] acetaminoph Yes Take by Uni vers en (TYLENOL 9-21 mouth. ity of ORAL) 19:14: [address] cetirizine Yes Take by Univ ers HCl (ZYRTEC 9-21 mouth. ity of ORAL) 19:14: [address] acetaminoph Yes Take by Uni vers en (TYLENOL 9-21 mouth. ity of ORAL) 19:14: [address] cetirizine Yes Take by Univ ers HCl (ZYRTEC 9-21 mouth. ity of ORAL) 19:14: [address] acetaminoph Yes Take by Uni vers en (TYLENOL 9-21 mouth. ity of ORAL) 19:14: [address] cetirizine Yes Take by Univ ers HCl (ZYRTEC 9-21 mouth. ity of ORAL) 19:14: [address] acetaminoph Yes Take by Uni vers en (TYLENOL 9-21 mouth. ity of ORAL) 19:14: [address] Branch albuterol Yes [id number] 2{puff} Inhale 2 Univers 90 9-13 Puffs ity of mcg/actuati 00:00: every 6 [place] on inhaler 00 (six) Medical hours as Branch needed for Wheezing or Shortness of Breath. albuterol Yes [id number] 2{puff} Inhale 2 Univers 90 9-13 Puffs ity of mcg/actuati 00:00: every 6 [place] on inhaler 00 (six) Medical hours as Branch needed for Wheezing or Shortness of Breath. albuterol Yes [id number] 2{puff} Inhale 2 Univers 90 9-13 Puffs ity of mcg/actuati 00:00: every 6 [place] on inhaler 00 (six) Medical hours as Branch needed for Wheezing or Shortness of Breath. albuterol Yes [id number] 2{puff} Inhale 2 Univers 90 9-13 Puffs ity of mcg/actuati 00:00: every 6 [place] on inhaler 00 (six) Medical hours as Branch needed for Wheezing or Shortness of Breath. albuterol Yes [id number] 2{puff} Inhale 2 Univers 90 9-13 Puffs ity of mcg/actuati 00:00: every 6 [place] on inhaler 00 (six) Medical hours as Branch needed for Wheezing or Shortness of Breath. albuterol Yes [id number] 2{puff} Inhale 2 Univers 90 9-13 Puffs ity of mcg/actuati 00:00: every 6 [place] on inhaler 00 (six) Medical hours as Branch needed for Wheezing or Shortness of Breath. albuterol Yes [id number] 2{puff} Inhale 2 [facility] 90 9-13 Puffs ity of mcg/actuati 00:00: every 6 [place] on inhaler 00 (six) Medical hours as Branch needed for Wheezing or Shortness of Breath. albuterol Yes [id number] 2{puff} Inhale 2 Univers 90 9-13 Puffs ity of mcg/actuati 00:00: every 6 [place] on inhaler 00 (six) Medical hours as Branch needed for Wheezing or Shortness of Breath. albuterol Yes [id number] 2{puff} Inhale 2 Univers 90 9-13 Puffs ity of mcg/actuati 00:00: every 6 [place] on inhaler 00 (six) Medical hours as Branch needed for Wheezing or Shortness of Breath. albuterol Yes [id number] 2{puff} Inhale 2 Univers 90 9-13 Puffs ity of mcg/actuati 00:00: every 6 [place] on inhaler 00 (six) Medical hours as Branch needed for Wheezing or Shortness of Breath. albuterol Yes [id number] 2{puff} Inhale 2 Univers 90 9-13 Puffs ity of mcg/actuati 00:00: every 6 [place] on inhaler 00 (six) Medical hours as Branch needed for Wheezing or Shortness of Breath. albuterol Yes [id number] 2{puff} Inhale 2 Univers 90 9-13 Puffs ity of mcg/actuati 00:00: every 6 [place] on inhaler 00 (six) Medical hours as Branch needed for Wheezing or Shortness of Breath. albuterol Yes [id number] 2{puff} Inhale 2 Univers 90 9-13 Puffs ity of mcg/actuati 00:00: every 6 [place] on inhaler 00 (six) Medical hours as Branch needed for Wheezing or Shortness of Breath. albuterol Yes [id number] 2{puff} Inhale 2 [facility] 90 9-13 Puffs ity of mcg/actuati 00:00: every 6 [place] on inhaler 00 (six) Medical hours as Branch needed for Wheezing or Shortness of Breath. albuterol Yes [id number] 2{puff} Inhale 2 Univers 90 9-13 Puffs ity of mcg/actuati 00:00: every 6 [place] on inhaler 00 (six) Medical hours as Branch needed for Wheezing or Shortness of Breath. albuterol Yes [id number] 2{puff} Inhale 2 [facility] 90 9-13 Puffs ity of mcg/actuati 00:00: every 6 [place] on inhaler 00 (six) Medical hours as Branch needed for Wheezing or Shortness of Breath. albuterol Yes [id number] 2{puff} Inhale 2 Univers 90 9-13 Puffs ity of mcg/actuati 00:00: every 6 [place] on inhaler 00 (six) Medical hours as Branch needed for Wheezing or Shortness of Breath. albuterol Yes [id number] 2{puff} Inhale 2 [facility] 90 9-13 Puffs ity of mcg/actuati 00:00: every 6 [place] on inhaler 00 (six) Medical hours as Branch needed for Wheezing or Shortness of Breath. albuterol Yes [id number] 2{puff} Inhale 2 [facility] 90 9-13 Puffs ity of mcg/actuati 00:00: every 6 [place] on inhaler 00 (six) Medical hours as Branch needed for Wheezing or Shortness of Breath. albuterol Yes [id number] 2{puff} Inhale 2 Univers 90 9-13 Puffs ity of mcg/actuati 00:00: every 6 [place] on inhaler 00 (six) Medical hours as Branch needed for Wheezing or Shortness of Breath. albuterol Yes [id number] 2{puff} Inhale 2 Univers 90 9-13 Puffs ity of mcg/actuati 00:00: every 6 [place] on inhaler 00 (six) Medical hours as Branch needed for Wheezing or Shortness of Breath. albuterol Yes [id number] 2{puff} Inhale 2 Univers 90 9-13 Puffs ity of mcg/actuati 00:00: every 6 [place] on inhaler 00 (six) Medical hours as Branch needed for Wheezing or Shortness of Breath. albuterol Yes [id number] 2{puff} Inhale 2 [facility] 90 9-13 Puffs ity of mcg/actuati 00:00: every 6 [place] on inhaler 00 (six) Medical hours as Branch needed for Wheezing or Shortness of Breath. albuterol Yes [id number] 2{puff} Inhale 2 Univers 90 9-13 Puffs ity of mcg/actuati 00:00: every 6 [place] on inhaler 00 (six) Medical hours as Branch needed for Wheezing or Shortness of Breath. albuterol Yes [id number] 2{puff} Inhale 2 Univers 90 9-13 Puffs ity of mcg/actuati 00:00: every 6 [place] on inhaler 00 (six) Medical hours as Branch needed for Wheezing or Shortness of Breath. albuterol Yes [id number] 2{puff} Inhale 2 Univers 90 9-13 Puffs ity of mcg/actuati 00:00: every 6 [place] on inhaler 00 (six) Medical hours as Branch needed for Wheezing or Shortness of Breath. albuterol Yes [id number] 2{puff} Inhale 2 [facility] 90 9-13 Puffs ity of mcg/actuati 00:00: every 6 [place] on inhaler 00 (six) Medical hours as Branch needed for Wheezing or Shortness of Breath. albuterol Yes [id number] 2{puff} Inhale 2 Univers 90 9-13 Puffs ity of mcg/actuati 00:00: every 6 [place] on inhaler 00 (six) Medical hours as Branch needed for Wheezing or Shortness of Breath. albuterol Yes [id number] 2{puff} Inhale 2 Univers 90 9-13 Puffs ity of mcg/actuati 00:00: every 6 [place] on inhaler 00 (six) Medical hours as Branch needed for Wheezing or Shortness of Breath. albuterol Yes [id number] 2{puff} Inhale 2 [facility] 90 9-13 Puffs ity of mcg/actuati 00:00: every 6 [place] on inhaler 00 (six) Medical hours as Branch needed for Wheezing or Shortness of Breath. albuterol Yes [id number] 2{puff} Inhale 2 Univers 90 9-13 Puffs ity of mcg/actuati 00:00: every 6 [place] on inhaler 00 (six) Medical hours as Branch needed for Wheezing or Shortness of Breath. albuterol Yes [id number] 2{puff} Inhale 2 Univers 90 9-13 Puffs ity of mcg/actuati 00:00: every 6 [place] on inhaler 00 (six) Medical hours as Branch needed for Wheezing or Shortness of Breath. albuterol Yes [id number] 2{puff} Inhale 2 Univers 90 9-13 Puffs ity of mcg/actuati 00:00: every 6 [place] on inhaler 00 (six) Medical hours as Branch needed for Wheezing or Shortness of Breath. albuterol Yes [id number] 2{puff} Inhale 2 Univers 90 9-13 Puffs ity of mcg/actuati 00:00: every 6 [place] on inhaler 00 (six) Medical hours as Branch needed for Wheezing or Shortness of Breath. albuterol Yes [id number] 2{puff} Inhale 2 Univers 90 9-13 Puffs ity of mcg/actuati 00:00: every 6 [place] on inhaler 00 (six) Medical hours as Branch needed for Wheezing or Shortness of Breath. albuterol Yes [id number] 2{puff} Inhale 2 Univers 90 9-13 Puffs ity of mcg/actuati 00:00: every 6 [place] on inhaler 00 (six) Medical hours as Branch needed for Wheezing or Shortness of Breath. albuterol Yes [id number] 2{puff} Inhale 2 Univers 90 9-13 Puffs ity of mcg/actuati 00:00: every 6 [place] on inhaler 00 (six) Medical hours as Branch needed for Wheezing or Shortness of Breath. albuterol Yes [id number] 2{puff} Inhale 2 Univers 90 9-13 Puffs ity of mcg/actuati 00:00: every 6 [place] on inhaler 00 (six) Medical hours as Branch needed for Wheezing or Shortness of Breath. albuterol Yes [id number] 2{puff} Inhale 2 Univers 90 9-13 Puffs ity of mcg/actuati 00:00: every 6 [place] on inhaler 00 (six) Medical hours as Branch needed for Wheezing or Shortness of Breath. Amoxicillin Amoxicillin 2021- No 1{table BID Amoxicilli -Pot -Pot 07-14 t} n-Pot Clavulanate Clavulanate 00:00: 00:00 Clavulanat 875-125 MG 875-125 MG 00 :00 e 875-125 MG Amoxicillin Amoxicillin 202- No 1{table BID Amoxicilli -Pot -Pot 07-14 t} n-Pot Clavulanate Clavulanate 00:00: 00:00 Clavulanat 875-125 MG 875-125 MG 00 :00 e 875-125 MG acetaminoph Yes Take by Uni vers en (TYLENOL 8-23 mouth. ity of ORAL) 14:46: [address] Branch acetaminoph Yes Take by Uni vers en (TYLENOL 8-23 mouth. ity of ORAL) 14:46: [address] Branch acetaminoph 0 Yes Take by Uni vers en (TYLENOL 8-23 mouth. ity of ORAL) 14:46: [address] acetaminoph 0 Yes Take by Uni vers en (TYLENOL 8-23 mouth. ity of ORAL) 14:46: [address] acetaminoph 0 Yes Take by Uni vers en (TYLENOL 8-23 mouth. ity of ORAL) 14:46: [address] acetaminoph 0 Yes Take by Uni vers en (TYLENOL 8-23 mouth. ity of ORAL) 14:46: [address] busPIRone 5 Yes [id number] 5mg Take 1 Univers mg tablet 8-23 tablet by ity o f 00:00: mouth in [place] [address] the Medical morning Branch and 1 tablet at noon and 1 tablet in the evening. busPIRone 5 2021-0 Yes [id number] 5mg Take 1 Univers mg tablet 8-23 tablet by ity o f 00:00: mouth in [place] [address] the Medical morning Branch and 1 tablet at noon and 1 tablet in the evening. busPIRone 5 2021-0 Yes [id number] 5mg Take 1 Univers mg tablet 8-23 tablet by ity o f 00:00: mouth in [place] [address] the Medical morning Branch and 1 tablet at noon and 1 tablet in the evening. busPIRone 5 2021-0 Yes [id number] 5mg Take 1 Univers mg tablet 8-23 tablet by ity o f 00:00: mouth in [place] [address] the Medical morning Branch and 1 tablet at noon and 1 tablet in the evening. busPIRone 5 2021-0 Yes [id number] 5mg Take 1 Univers mg tablet 8-23 tablet by ity o f 00:00: mouth in [place] [address] the Medical morning Branch and 1 tablet at noon and 1 tablet in the evening. busPIRone 5 2021-0 Yes [id number] 5mg Take 1 Univers mg tablet 8-23 tablet by ity o f 00:00: mouth in [place] [address] the Medical morning Branch and 1 tablet at noon and 1 tablet in the evening. busPIRone 5 2021-0 Yes [id number] 5mg Take 1 Univers mg tablet 8-23 tablet by ity o f 00:00: mouth in [place] 00 the Medical morning Branch and 1 tablet at noon and 1 tablet in the evening. busPIRone 5 2021- No [id number] 5mg Take 1 [facility] mg tablet 07-08 tablet by ity of 00:00: 00:00 mouth in [place] 00 :00 the Medical morning Branch and 1 tablet at noon and 1 tablet in the evening. albuterol Yes [id number] 2{puff} Inhale 2 [facility] 90 8-15 Puffs ity of mcg/actuati 00:00: every 6 [place] on inhaler 00 (six) Medical hours as Branch needed for Wheezing or Shortness of Breath. albuterol Yes [id number] 2{puff} Inhale 2 [facility] 90 8-15 Puffs ity of mcg/actuati 00:00: every 6 [place] on inhaler 00 (six) Medical hours as Branch needed for Wheezing or Shortness of Breath. albuterol Yes [id number] 2{puff} Inhale 2 [facility] 90 8-15 Puffs ity of mcg/actuati 00:00: every 6 [place] on inhaler 00 (six) Medical hours as Branch needed for Wheezing or Shortness of Breath. albuterol Yes [id number] 2{puff} Inhale 2 [facility] 90 8-15 Puffs ity of mcg/actuati 00:00: every 6 [place] on inhaler 00 (six) Medical hours as Branch needed for Wheezing or Shortness of Breath. albuterol Yes [id number] 2{puff} Inhale 2 [facility] 90 8-15 Puffs ity of mcg/actuati 00:00: every 6 [place] on inhaler 00 (six) Medical hours as Branch needed for Wheezing or Shortness of Breath. albuterol Yes [id number] 2{puff} Inhale 2 [facility] 90 8-15 Puffs ity of mcg/actuati 00:00: every 6 [place] on inhaler 00 (six) Medical hours as Branch needed for Wheezing or Shortness of Breath. albuterol 2021- No [id number] 2{puff} Inhale 2 [facility] 90 8-15 09-13 Puffs ity of mcg/actuati 00:00: 00:00 every 6 [place] on inhaler 00 :00 (six) Medical hours as Branch needed for Wheezing or Shortness of Breath. albuterol 2021- No [id number] 2{puff} Inhale 2 [facility] 90 8-15 09-13 Puffs ity of mcg/actuati 00:00: 00:00 every 6 [place] on inhaler 00 :00 (six) Medical hours as Branch needed for Wheezing or Shortness of Breath. busPIRone 5 2021-0 Yes [id number] 5mg Take 1 [facility] mg tablet 8-08 tablet by ity o f 00:00: mouth in [place] 00 the Medical morning Branch and 1 tablet in the evening. busPIRone 5 2021-0 Yes [id number] 5mg Take 1 [facility] mg tablet 8-08 tablet by ity o f 00:00: mouth in [place] 00 the Medical morning Branch and 1 tablet in the evening. busPIRone 5 2021-0 Yes [id number] 5mg Take 1 [facility] mg tablet 8-08 tablet by ity o f 00:00: mouth in [place] 00 the Medical morning Branch and 1 tablet in the evening. busPIRone 5 0 Yes [id number] 5mg Take 1 [facility] mg tablet 8-08 tablet by ity o f 00:00: mouth in [place] 00 the Medical morning Branch and 1 tablet in the evening. busPIRone 5 2021-0 Yes [id number] 5mg Take 1 [facility] mg tablet 8-08 tablet by ity o f 00:00: mouth in [place] 00 the Medical morning Branch and 1 tablet in the evening. busPIRone 5 2021-0 Yes [id number] 5mg Take 1 [facility] mg tablet 8-08 tablet by ity o f 00:00: mouth in [place] 00 the Medical morning Branch and 1 tablet in the evening. busPIRone 5 2021- No [id number] 5mg Take 1 [facility] mg tablet 8-08 08-23 tablet by ity of 00:00: 00:00 mouth in [place] 00 :00 the Medical morning Branch and 1 tablet in the evening. acetaminoph 0 2021- No 1000mg 1,000 mg, [facility] en 06-12 07-28 Oral, ity of (TYLENOL) 08:30: 08:24 [place]CE, [place] 00 :[place] dose, On Medical 1,000 mg [place] Branch 06/12/22 at 0330, CHERYL acetaminoph Yes Take by [facility] vers en (TYLENOL 6-28 mouth. ity of ORAL) 13:09: [address] acetaminoph Yes Take by [facility] vers en (TYLENOL 6-28 mouth. ity of ORAL) 13:09: [address] acetaminoph Yes Take by [facility] vers en (TYLENOL 6-28 mouth. ity of ORAL) 13:09: [address] Branch acetaminoph Yes Take by [facility] vers en (TYLENOL 6-28 mouth. ity of ORAL) 13:09: [address] acetaminoph Yes Take by [facility] vers en (TYLENOL 6-28 mouth. ity of ORAL) 13:09: [address] acetaminoph Yes Take by [facility] vers en (TYLENOL 6-28 mouth. ity of ORAL) 13:09: [address] acetaminoph Yes Take by [facility] vers en (TYLENOL 6-28 mouth. ity of ORAL) 13:09: [address] acetaminoph Yes Take by [facility] vers en (TYLENOL 6-28 mouth. ity of ORAL) 13:09: [address] acetaminoph Yes Take by [facility] (TYLENOL 6-28 mouth. ity of ORAL) 13:09: [address] acetaminoph Yes Take by [facility] vers en (TYLENOL 6-28 mouth. ity of ORAL) 13:09: [address] acetaminoph Yes Take by [facility] vers en (TYLENOL 6-28 mouth. ity of ORAL) 13:09: [address] acetaminoph Yes Take by [facility] vers en (TYLENOL 6-28 mouth. ity of ORAL) 13:09: [address] Branch magnesium 2021-0 Yes [id number] 400mg Take 1 U nivers oxide 400 6-10 tablet by ity o f mg (241.3 00:00: mouth [place] mg 00 daily. Medical magnesium) Branch tablet magnesium Yes [id number] 400mg Take 1 U nivers oxide 400 6-10 tablet by ity o f mg (241.3 00:00: mouth [place] mg 00 daily. Medical magnesium) Branch tablet magnesium 2021-0 Yes [id number] 400mg Take 1 U nivers oxide 400 6-10 tablet by ity o f mg (241.3 00:00: mouth [place] mg 00 daily. Medical magnesium) Branch tablet magnesium 2021-0 Yes [id number] 400mg Take 1 U nivers oxide 400 6-10 tablet by ity o f mg (241.3 00:00: mouth [place] mg 00 daily. Medical magnesium) Branch tablet magnesium 2021-0 Yes [id number] 400mg Take 1 U nivers oxide 400 6-10 tablet by ity o f mg (241.3 00:00: mouth [place] mg 00 daily. Medical magnesium) Branch tablet magnesium 2021-0 Yes [id number] 400mg Take 1 U nivers oxide 400 6-10 tablet by ity o f mg (241.3 00:00: mouth [place] mg 00 daily. Medical magnesium) Branch tablet magnesium 2021-0 Yes [id number] 400mg Take 1 U nivers oxide 400 6-10 tablet by ity o f mg (241.3 00:00: mouth [place] mg 00 daily. Medical magnesium) Branch tablet magnesium 2021-0 Yes [id number] 400mg Take 1 U nivers oxide 400 6-10 tablet by ity o f mg (241.3 00:00: mouth [place] mg 00 daily. Medical magnesium) Branch tablet magnesium 2021-0 Yes [id number] 400mg Take 1 U nivers oxide 400 6-10 tablet by ity o f mg (241.3 00:00: mouth [place] mg 00 daily. Medical magnesium) Branch tablet magnesium 2021-0 Yes [id number] 400mg Take 1 U nivers oxide 400 6-10 tablet by ity o f mg (241.3 00:00: mouth [place] mg 00 daily. Medical magnesium) Branch tablet magnesium 2021-0 Yes [id number] 400mg Take 1 U nivers oxide 400 6-10 tablet by ity o f mg (241.3 00:00: mouth [place] mg 00 daily. Medical magnesium) Branch tablet magnesium 2021-0 Yes [id number] 400mg Take 1 U nivers oxide 400 6-10 tablet by ity o f mg (241.3 00:00: mouth [place] mg 00 daily. Medical magnesium) Branch tablet magnesium 2022-0 Yes [id number] 400mg Take 1 U nivers oxide 400 6-10 tablet by ity o f mg (241.3 00:00: mouth [place] mg 00 daily. Medical magnesium) Branch tablet magnesium 2021-0 Yes [id number] 400mg Take 1 U nivers oxide 400 6-10 tablet by ity o f mg (241.3 00:00: mouth [place] mg 00 daily. Medical magnesium) Branch tablet magnesium 2021-0 Yes [id number] 400mg Take 1 U nivers oxide 400 6-10 tablet by ity o f mg (241.3 00:00: mouth [place] mg 00 daily. Medical magnesium) Branch tablet magnesium 2021-0 Yes [id number] 400mg Take 1 U nivers oxide 400 6-10 tablet by ity o f mg (241.3 00:00: mouth [place] mg 00 daily. Medical magnesium) Branch tablet magnesium 2021-0 Yes [id number] 400mg Take 1 U nivers oxide 400 6-10 tablet by ity o f mg (241.3 00:00: mouth [place] mg 00 daily. Medical magnesium) Branch tablet magnesium 2021-0 Yes [id number] 400mg Take 1 U nivers oxide 400 6-10 tablet by ity o f mg (241.3 00:00: mouth [place] mg 00 daily. Medical magnesium) Branch tablet magnesium 2021-0 Yes [id number] 400mg Take 1 U nivers oxide 400 6-10 tablet by ity o f mg (241.3 00:00: mouth [place] mg 00 daily. Medical magnesium) Branch tablet magnesium 2021-0 Yes [id number] 400mg Take 1 U nivers oxide 400 6-10 tablet by ity o f mg (241.3 00:00: mouth [place] mg 00 daily. Medical magnesium) Branch tablet magnesium 2021-0 Yes [id number] 400mg Take 1 U nivers oxide 400 6-10 tablet by ity o f mg (241.3 00:00: mouth [place] mg 00 daily. Medical magnesium) Branch tablet magnesium 2-0 Yes [id number] 400mg Take 1 U nivers oxide 400 6-10 tablet by ity o f mg (241.3 00:00: mouth [place] mg 00 daily. Medical magnesium) Branch tablet magnesium 2-0 Yes [id number] 400mg Take 1 U nivers oxide 400 6-10 tablet by ity o f mg (241.3 00:00: mouth [place] mg 00 daily. Medical magnesium) Branch tablet magnesium 2021-0 Yes [id number] 400mg Take 1 U nivers oxide 400 6-10 tablet by ity o f mg (241.3 00:00: mouth [place] mg 00 daily. Medical magnesium) Branch tablet magnesium 2021-0 Yes [id number] 400mg Take 1 U nivers oxide 400 6-10 tablet by ity o f mg (241.3 00:00: mouth [place] mg 00 daily. Medical magnesium) Branch tablet magnesium 2021-0 Yes [id number] 400mg Take 1 U nivers oxide 400 6-10 tablet by ity o f mg (241.3 00:00: mouth [place] mg 00 daily. Medical magnesium) Branch tablet magnesium 2021-0 Yes [id number] 400mg Take 1 U nivers oxide 400 6-10 tablet by ity o f mg (241.3 00:00: mouth [place] mg 00 daily. Medical magnesium) Branch tablet magnesium 2021-0 Yes [id number] 400mg Take 1 U nivers oxide 400 6-10 tablet by ity o f mg (241.3 00:00: mouth [place] mg 00 daily. Medical magnesium) Branch tablet magnesium 2021-0 Yes [id number] 400mg Take 1 U nivers oxide 400 6-10 tablet by ity o f mg (241.3 00:00: mouth [place] mg 00 daily. Medical magnesium) Branch tablet magnesium 2021-0 Yes [id number] 400mg Take 1 U nivers oxide 400 6-10 tablet by ity o f mg (241.3 00:00: mouth [place] mg 00 daily. Medical magnesium) Branch tablet magnesium 2021-0 Yes [id number] 400mg Take 1 U nivers oxide 400 6-10 tablet by ity o f mg (241.3 00:00: mouth [place] mg 00 daily. Medical magnesium) Branch tablet magnesium 2021-0 Yes [id number] 400mg Take 1 U nivers oxide 400 6-10 tablet by ity o f mg (241.3 00:00: mouth [place] mg 00 daily. Medical magnesium) Branch tablet magnesium 2021-0 2- No [id number] 400mg Take 1 [facility] oxide 400 6-10 10-25 tablet by ity of mg (241.3 00:00: 00:00 mouth [place] mg 00 :00 daily. Medical magnesium) Branch tablet cetirizine 2021-0 Yes Take by Univ ers HCl (ZYRTEC 6-09 mouth. ity of ORAL) 13:09: [place] [address] Medical Branch acetaminoph 2021-0 Yes Take by [facility] vers en (TYLENOL 6-09 mouth. ity of ORAL) 13:09: [place] [address] Medical Branch cetirizine 0 Yes Take by Univ ers HCl (ZYRTEC 6-09 mouth. ity of ORAL) 13:09: [place] [address] Medical Branch acetaminoph 2021-0 Yes Take by [facility] vers en (TYLENOL 6-09 mouth. ity of ORAL) 13:09: [place] [address] Medical Branch cetirizine 0 Yes Take by Univ ers HCl (ZYRTEC 6-09 mouth. ity of ORAL) 13:09: [place] [address] Medical Branch cetirizine 0 Yes Take by Univ ers HCl (ZYRTEC 6-09 mouth. ity of ORAL) 13:09: [place] [address] Medical Branch cetirizine 0 Yes Take by Univ ers HCl (ZYRTEC 6-09 mouth. ity of ORAL) 13:09: [place] [address] Medical Branch cetirizine 0 Yes Take by Univ ers HCl (ZYRTEC 6-09 mouth. ity of ORAL) 13:09: [place] [address] Medical Branch cetirizine 2021-0 Yes Take by Univ ers HCl (ZYRTEC 6-09 mouth. ity of ORAL) 13:09: [place] [address] Medical Branch cetirizine 0 Yes Take by Univ ers HCl (ZYRTEC 6-09 mouth. ity of ORAL) 13:09: [place] [address] Medical Branch cetirizine 2021-0 Yes Take by Univ ers HCl (ZYRTEC 6-09 mouth. ity of ORAL) 13:09: [place] [address] Medical Branch cetirizine 2021-0 Yes Take by Univ ers HCl (ZYRTEC 6-09 mouth. ity of ORAL) 13:09: [place] [address] Medical Branch cetirizine 2021-0 Yes Take by [facility] ers HCl (ZYRTEC 6-09 mouth. ity of ORAL) 13:09: [place] [address] Medical Branch cetirizine 2021-0 Yes Take by Univ ers HCl (ZYRTEC 6-09 mouth. ity of ORAL) 13:09: [place] 08 Medical Branch cetirizine Yes Take by Univ ers HCl (ZYRTEC 6-09 mouth. ity of ORAL) 13:09: [address] cetirizine Yes Take by Univ ers HCl (ZYRTEC 6-09 mouth. ity of ORAL) 13:09: [address] cetirizine Yes Take by Univ ers HCl (ZYRTEC 6-09 mouth. ity of ORAL) 13:09: [address] cetirizine Yes Take by Univ ers HCl (ZYRTEC 6-09 mouth. ity of ORAL) 13:09: [address] cetirizine Yes Take by Univ ers HCl (ZYRTEC 6-09 mouth. ity of ORAL) 13:09: [address] cetirizine Yes Take by Univ ers HCl (ZYRTEC 6-09 mouth. ity of ORAL) 13:09: [address] cetirizine Yes Take by Univ ers HCl (ZYRTEC 6-09 mouth. ity of ORAL) 13:09: [address] cetirizine Yes Take by Univ ers HCl (ZYRTEC 6-09 mouth. ity of ORAL) 13:09: [address] cetirizine Yes Take by Univ ers HCl (ZYRTEC 5-05 mouth. ity of ORAL) 11:32: [address] cetirizine Yes Take by Univ ers HCl (ZYRTEC 5-05 mouth. ity of ORAL) 11:32: [address] cetirizine Yes Take by Univ ers HCl (ZYRTEC 5-05 mouth. ity of ORAL) 11:32: [address] cetirizine Yes Take by Univ ers HCl (ZYRTEC 5-05 mouth. ity of ORAL) 11:32: [address] cetirizine Yes Take by Univ ers HCl (ZYRTEC 5-05 mouth. ity of ORAL) 11:32: [address] cetirizine Yes Take by Univ ers HCl (ZYRTEC 5-05 mouth. ity of ORAL) 11:32: [place] 30 Medical Branch ondansetron 2022-0 Yes 4mg Take 1 [facility] [...] controlled by other medication . ondansetron 2022-0 2022- No 4mg Take 1 [facility] vers (ZOFRAN) 4 4-07 10-25 tablet by ity of mg tablet 00:00: 00:00 mouth [place] 00 :00 every 8 Medical (eight) Branch hours as needed for Nausea and Vomiting (N/V). Pt to take prn nausea and vomiting not controlled by other medication . azithromyci 2022-0 2021- No [id number] 1000mg Take 2 [facility] n 500 mg 4-06 04-08 tablets by ity of tablet 00:00: 04:59 mouth [place] 00 :00 daily for Medical 1 day. Branch azithromyci 2021-0 2021- No [id number] 1000mg Take 2 [facility] n 500 mg 4-06 04-08 tablets by ity of tablet 00:00: 04:59 mouth [place] 00 :00 daily for Medical 1 day. Branch azithromyci 2021-0 2021- No [id number] 1000mg Take 2 [facility] n 500 mg 4-06 04-08 tablets by ity of tablet 00:00: 04:59 mouth [place] 00 :00 daily for Medical 1 day. Branch metoclopram 2022-0 Yes [id number] 10mg Take 1 [facility] ayden HCl 10 4-05 tablet by ity of mg tablet 00:00: mouth [place] 00 every 6 Medical (six) Branch hours as needed for Nausea and Vomiting (N/V). metoclopram 2022-0 Yes [id number] 10mg Take 1 [facility] ayden HCl 10 4-05 tablet by ity of mg tablet 00:00: mouth [place] 00 every 6 Medical (six) Branch hours as needed for Nausea and Vomiting (N/V). metoclopram 2022-0 Yes [id number] 10mg Take 1 [facility] ayden HCl 10 4-05 tablet by ity of mg tablet 00:00: mouth [place] 00 every 6 Medical (six) Branch hours as needed for Nausea and Vomiting (N/V). metoclopram 2022-0 Yes [id number] 10mg Take 1 [facility] ayden HCl 10 4-05 tablet by ity of mg tablet 00:00: mouth [place] 00 every 6 Medical (six) Branch hours as needed for Nausea and Vomiting (N/V). metoclopram 2022-0 Yes [id number] 10mg Take 1 [facility] ayden HCl 10 4-05 tablet by ity of mg tablet 00:00: mouth [place] 00 every 6 Medical (six) Branch hours as needed for Nausea and Vomiting (N/V). metoclopram 2022-0 Yes [id number] 10mg Take 1 [facility] ayden HCl 10 4-05 tablet by ity of mg tablet 00:00: mouth [place] 00 every 6 Medical (six) Branch hours as needed for Nausea and Vomiting (N/V). metoclopram 2022-0 Yes [id number] 10mg Take 1 [facility] ayden HCl 10 4-05 tablet by ity of mg tablet 00:00: mouth [place] 00 every 6 Medical (six) Branch hours as needed for Nausea and Vomiting (N/V). metoclopram 2022-0 Yes [id number] 10mg Take 1 [facility] ayden HCl 10 4-05 tablet by ity of mg tablet 00:00: mouth [place] 00 every 6 Medical (six) Branch hours as needed for Nausea and Vomiting (N/V). metoclopram 2022-0 Yes [id number] 10mg Take 1 [facility] ayden HCl 10 4-05 tablet by ity of mg tablet 00:00: mouth [place] 00 every 6 Medical (six) Branch hours as needed for Nausea and Vomiting (N/V). metoclopram 2022-0 Yes [id number] 10mg Take 1 [facility] ayden HCl 10 4-05 tablet by ity of mg tablet 00:00: mouth [place] 00 every 6 Medical (six) Branch hours as needed for Nausea and Vomiting (N/V). metoclopram 2022-0 Yes [id number] 10mg Take 1 [facility] ayden HCl 10 4-05 tablet by ity of mg tablet 00:00: mouth [place] 00 every 6 Medical (six) Branch hours as needed for Nausea and Vomiting (N/V). metoclopram 2022-0 Yes [id number] 10mg Take 1 [facility] ayden HCl 10 4-05 tablet by ity of mg tablet 00:00: mouth [place] 00 every 6 Medical (six) Branch hours as needed for Nausea and Vomiting (N/V). metoclopram 2022-0 Yes [id number] 10mg Take 1 [facility] ayden HCl 10 4-05 tablet by ity of mg tablet 00:00: mouth [place] 00 every 6 Medical (six) Branch hours as needed for Nausea and Vomiting (N/V). metoclopram 2022-0 Yes [id number] 10mg Take 1 [facility] ayden HCl 10 4-05 tablet by ity of mg tablet 00:00: mouth [place] 00 every 6 Medical (six) Branch hours as needed for Nausea and Vomiting (N/V). metoclopram 2022-0 Yes [id number] 10mg Take 1 [facility] ayden HCl 10 4-05 tablet by ity of mg tablet 00:00: mouth [place] 00 every 6 Medical (six) Branch hours as needed for Nausea and Vomiting (N/V). metoclopram 2022-0 Yes [id number] 10mg Take 1 [facility] ayden HCl 10 4-05 tablet by ity of mg tablet 00:00: mouth [place] 00 every 6 Medical (six) Branch hours as needed for Nausea and Vomiting (N/V). metoclopram 2022-0 Yes [id number] 10mg Take 1 [facility] ayden HCl 10 4-05 tablet by ity of mg tablet 00:00: mouth [place] 00 every 6 Medical (six) Branch hours as needed for Nausea and Vomiting (N/V). metoclopram 2022-0 Yes [id number] 10mg Take 1 [facility] ayden HCl 10 4-05 tablet by ity of mg tablet 00:00: mouth [place] 00 every 6 Medical (six) Branch hours as needed for Nausea and Vomiting (N/V). metoclopram 2022-0 Yes [id number] 10mg Take 1 [facility] ayden HCl 10 4-05 tablet by ity of mg tablet 00:00: mouth [place] 00 every 6 Medical (six) Branch hours as needed for Nausea and Vomiting (N/V). metoclopram 2022-0 Yes [id number] 10mg Take 1 [facility] ayden HCl 10 4-05 tablet by ity of mg tablet 00:00: mouth [place] 00 every 6 Medical (six) Branch hours as needed for Nausea and Vomiting (N/V). metoclopram 2022-0 Yes [id number] 10mg Take 1 [facility] ayden HCl 10 4-05 tablet by ity of mg tablet 00:00: mouth [place] 00 every 6 Medical (six) Branch hours as needed for Nausea and Vomiting (N/V). metoclopram 2022-0 Yes [id number] 10mg Take 1 [facility] ayden HCl 10 4-05 tablet by ity of mg tablet 00:00: mouth [place] 00 every 6 Medical (six) Branch hours as needed for Nausea and Vomiting (N/V). metoclopram 2022-0 Yes [id number] 10mg Take 1 [facility] ayden HCl 10 4-05 tablet by ity of mg tablet 00:00: mouth [place] 00 every 6 Medical (six) Branch hours as needed for Nausea and Vomiting (N/V). metoclopram 2022-0 Yes [id number] 10mg Take 1 [facility] ayden HCl 10 4-05 tablet by ity of mg tablet 00:00: mouth [place] 00 every 6 Medical (six) Branch hours as needed for Nausea and Vomiting (N/V). metoclopram 2022-0 Yes [id number] 10mg Take 1 [facility] ayden HCl 10 4-05 tablet by ity of mg tablet 00:00: mouth [place] 00 every 6 Medical (six) Branch hours as needed for Nausea and Vomiting (N/V). metoclopram 2022-0 Yes [id number] 10mg Take 1 [facility] ayden HCl 10 4-05 tablet by ity of mg tablet 00:00: mouth [place] 00 every 6 Medical (six) Branch hours as needed for Nausea and Vomiting (N/V). metoclopram 2022-0 Yes [id number] 10mg Take 1 [facility] ayden HCl 10 4-05 tablet by ity of mg tablet 00:00: mouth [place] 00 every 6 Medical (six) Branch hours as needed for Nausea and Vomiting (N/V). metoclopram 2022-0 Yes [id number] 10mg Take 1 [facility] ayden HCl 10 4-05 tablet by ity of mg tablet 00:00: mouth [place] 00 every 6 Medical (six) Branch hours as needed for Nausea and Vomiting (N/V). metoclopram 2022-0 Yes [id number] 10mg Take 1 [facility] ayden HCl 10 4-05 tablet by ity of mg tablet 00:00: mouth [place] 00 every 6 Medical (six) Branch hours as needed for Nausea and Vomiting (N/V). metoclopram 2022-0 Yes [id number] 10mg Take 1 [facility] ayden HCl 10 4-05 tablet by ity of mg tablet 00:00: mouth [place] 00 every 6 Medical (six) Branch hours as needed for Nausea and Vomiting (N/V). metoclopram 2022-0 Yes [id number] 10mg Take 1 [facility] ayden HCl 10 4-05 tablet by ity of mg tablet 00:00: mouth [place] 00 every 6 Medical (six) Branch hours as needed for Nausea and Vomiting (N/V). metoclopram 2022-0 Yes [id number] 10mg Take 1 [facility] ayden HCl 10 4-05 tablet by ity of mg tablet 00:00: mouth [place] 00 every 6 Medical (six) Branch hours as needed for Nausea and Vomiting (N/V). metoclopram Yes [id number] 10mg Take 1 [facility] ayden HCl 10 4-05 tablet by ity of mg tablet 00:00: mouth [place] 00 every 6 Medical (six) Branch hours as needed for Nausea and Vomiting (N/V). metoclopram 2021- No [id number] 10mg Take 1 [facility] ayden HCl 10 4-05 -27 tablet by ity of mg tablet 00:00: 00:00 mouth [place] 00 :00 every 6 Medical (six) Branch hours as needed for Nausea and Vomiting (N/V). predniSONE predniSONE 2021- No QD predniSONE 20 MG 20 MG 01-13 20 MG 00:00: 00:00 00 :00 predniSONE predniSONE 2021- No QD predniSONE 20 MG 20 MG 01-13 20 MG 00:00: 00:00 00 :00 Azithromyci [...] 2020-11- No 1{table BID Amoxicilli -Pot -Pot -10-22 t} n-Pot Clavulanate Clavulanate 00:00: 00:00 Clavulanat 875-125 MG 875-125 MG 00 :00 e 875-125 MG Amoxicillin Amoxicillin 2020-11- No 1{table BID Amoxicilli -Pot -Pot -30 07 t} n-Pot Clavulanate Clavulanate 00:00: 00:00 Clavulanat 875-125 MG 875-125 MG 00 :00 e 875-125 MG Amoxicillin Amoxicillin 2020-11- No 1{table BID Amoxicilli -Pot -Pot -30 07 t} n-Pot Clavulanate Clavulanate 00:00: 00:00 Clavulanat 875-125 MG 875-125 MG 00 :00 e 875-125 MG PARoxetine 2020-11 Yes [id number] 30mg Take 1 U nivers 30 mg 1-15 tablet by ity of tablet 00:00: mouth [place] 00 daily. Medical Branch PARoxetine 2020-11 Yes [id number] 30mg Take 1 U nivers 30 mg 1-15 tablet by ity of tablet 00:00: mouth [place] 00 daily. Medical Branch PARoxetine 2020-11- No [id number] 30mg Take 1 [facility] 30 mg 1-15 04-05 tablet by ity of tablet 00:00: 00:00 mouth [place] 00 :00 daily. Medical Branch PARoxetine 2020-11- No [id number] 30mg Take 1 [facility] 30 mg 1-15 [...] MG 00:00: 00:00 00 :00 PARoxetine Yes [id number] 20mg Take 1 U nivers 20 mg 8-12 tablet by ity of tablet 00:00: mouth [place] 00 daily. Medical Branch albuterol Yes [id number] 2{puff} Inhale 2 [facility] 90 8-12 Puffs ity of mcg/actuati 00:00: every 6 [place] on inhaler 00 (six) Medical hours as Branch needed for Wheezing or Shortness of Breath. LOESTRIN FE Yes [id number] 1{tbl} Take 1 [facility] 1 mg-20 mcg 8-12 tablet by ity of (21)/75 mg 00:00: mouth [place] (7) tablet 00 daily. Medical Branch PARoxetine Yes [id number] 20mg Take 1 U nivers 20 mg 8-12 tablet by ity of tablet 00:00: mouth [place] 00 daily. Medical Branch albuterol Yes [id number] 2{puff} Inhale 2 [facility] 90 8-12 Puffs ity of mcg/actuati 00:00: every 6 [place] on inhaler 00 (six) Medical hours as Branch needed for Wheezing or Shortness of Breath. LOESTRIN FE Yes [id number] 1{tbl} Take 1 [facility] 1 mg-20 mcg 8-12 tablet by ity of (21)/75 mg 00:00: mouth [place] (7) tablet 00 daily. Medical Branch PARoxetine Yes [id number] 20mg Take 1 U nivers 20 mg 8-12 tablet by ity of tablet 00:00: mouth [place] 00 daily. Medical Branch albuterol Yes [id number] 2{puff} Inhale 2 [facility] 90 8-12 Puffs ity of mcg/actuati 00:00: every 6 [place] on inhaler 00 (six) Medical hours as Branch needed for Wheezing or Shortness of Breath. LOESTRIN FE Yes [id number] 1{tbl} Take 1 [facility] 1 mg-20 mcg 8-12 tablet by ity of (21)/75 mg 00:00: mouth [place] (7) tablet 00 daily. Medical Branch PARoxetine Yes [id number] 20mg Take 1 U nivers 20 mg 8-12 tablet by ity of tablet 00:00: mouth [place] 00 daily. Medical Branch albuterol Yes [id number] 2{puff} Inhale 2 [facility] 90 8-12 Puffs ity of mcg/actuati 00:00: every 6 [place] on inhaler 00 (six) Medical hours as Branch needed for Wheezing or Shortness of Breath. LOESTRIN FE Yes [id number] 1{tbl} Take 1 [facility] 1 mg-20 mcg 8-12 tablet by ity of (21)/75 mg 00:00: mouth [place] (7) tablet 00 daily. Medical Branch PARoxetine Yes [id number] 20mg Take 1 U nivers 20 mg 8-12 tablet by ity of tablet 00:00: mouth [place] 00 daily. Medical Branch albuterol Yes [id number] 2{puff} Inhale 2 [facility] 90 8-12 Puffs ity of mcg/actuati 00:00: every 6 [place] on inhaler 00 (six) Medical hours as Branch needed for Wheezing or Shortness of Breath. LOESTRIN FE Yes [id number] 1{tbl} Take 1 [facility] 1 mg-20 mcg 8-12 tablet by ity of (21)/75 mg 00:00: mouth [place] (7) tablet 00 daily. Medical Branch PARoxetine Yes [id number] 20mg Take 1 U nivers 20 mg 8-12 tablet by ity of tablet 00:00: mouth [place] 00 daily. Medical Branch albuterol Yes [id number] 2{puff} Inhale 2 [facility] 90 8-12 Puffs ity of mcg/actuati 00:00: every 6 [place] on inhaler 00 (six) Medical hours as Branch needed for Wheezing or Shortness of Breath. LOESTRIN FE Yes [id number] 1{tbl} Take 1 [facility] 1 mg-20 mcg 8-12 tablet by ity of (21)/75 mg 00:00: mouth [place] (7) tablet 00 daily. Medical Branch PARoxetine Yes [id number] 20mg Take 1 U nivers 20 mg 8-12 tablet by ity of tablet 00:00: mouth [place] 00 daily. Medical Branch albuterol Yes [id number] 2{puff} Inhale 2 [facility] 90 8-12 Puffs ity of mcg/actuati 00:00: every 6 [place] inhaler 00 (six) Medical hours as Branch needed for Wheezing or Shortness of Breath. LOESTRIN FE Yes [id number] 1{tbl} Take 1 [facility] 1 mg-20 mcg 8-12 tablet by ity of (21)/75 mg 00:00: mouth [place] (7) tablet 00 daily. Medical Branch PARoxetine Yes [id number] 20mg Take 1 U nivers 20 mg 8-12 tablet by ity of tablet 00:00: mouth [place] 00 daily. Medical Branch albuterol Yes [id number] 2{puff} Inhale 2 [facility] 90 8-12 Puffs ity of mcg/actuati 00:00: every 6 [place] on inhaler 00 (six) Medical hours as Branch needed for Wheezing or Shortness of Breath. LOESTRIN FE Yes [id number] 1{tbl} Take 1 [facility] 1 mg-20 mcg 8-12 tablet by ity of (21)/75 mg 00:00: mouth [place] (7) tablet 00 daily. [facility] PARoxetine Yes [id number] 20mg Take 1 [facility] nivers 20 mg 8-12 tablet by ity of tablet 00:00: mouth [place] 00 daily. [facility] albuterol Yes [id number] 2{puff} Inhale 2 [facility] 90 8-12 Puffs ity of mcg/actuati 00:00: every 6 [place] on inhaler 00 (six) Medical hours as Branch needed for Wheezing or Shortness of Breath. LOESTRIN FE Yes [id number] 1{tbl} Take 1 [facility] 1 mg-20 mcg 8-12 tablet by ity of (21)/75 mg 00:00: mouth [place] (7) tablet 00 daily. [facility] PARoxetine Yes [id number] 20mg Take 1 [facility] nivers 20 mg 8-12 tablet by ity of tablet 00:00: mouth [place] 00 daily. [facility] albuterol Yes [id number] 2{puff} Inhale 2 [facility] 90 8-12 Puffs ity of mcg/actuati 00:00: every 6 [place] inhaler 00 (six) Medical hours as Branch needed for Wheezing or Shortness of Breath. LOESTRIN FE Yes [id number] 1{tbl} Take 1 [facility] 1 mg-20 mcg 8-12 tablet by ity of (21)/75 mg 00:00: mouth [place] (7) tablet 00 daily. [facility] albuterol Yes [id number] 2{puff} Inhale 2 [facility] 90 8-12 Puffs ity of mcg/actuati 00:00: every 6 [place] inhaler 00 (six) Medical hours as Branch needed for Wheezing or Shortness of Breath. LOESTRIN FE Yes [id number] 1{tbl} Take 1 [facility] 1 mg-20 mcg 8-12 tablet by ity of (21)/75 mg 00:00: mouth [place] (7) tablet 00 daily. [facility] albuterol Yes [id number] 2{puff} Inhale 2 [facility] 90 8-12 Puffs ity of mcg/actuati 00:00: every 6 [place] inhaler 00 (six) Medical hours as Branch needed for Wheezing or Shortness of Breath. LOESTRIN FE Yes [id number] 1{tbl} Take 1 [facility] 1 mg-20 mcg 8-12 tablet by ity of (21)/75 mg 00:00: mouth [place] (7) tablet 00 daily. [facility] albuterol Yes [id number] 2{puff} Inhale 2 [facility] 90 8-12 Puffs ity of mcg/actuati 00:00: every 6 [place] inhaler 00 (six) Medical hours as Branch needed for Wheezing or Shortness of Breath. albuterol Yes [id number] 2{puff} Inhale 2 [facility] 90 8-12 Puffs ity of mcg/actuati 00:00: every 6 [place] inhaler 00 (six) Medical hours as Branch needed for Wheezing or Shortness of Breath. albuterol Yes [id number] 2{puff} Inhale 2 [facility] 90 8-12 Puffs ity of mcg/actuati 00:00: every 6 [place] inhaler 00 (six) Medical hours as Branch needed for Wheezing or Shortness of Breath. albuterol Yes [id number] 2{puff} Inhale 2 [facility] 90 8-12 Puffs ity of mcg/actuati 00:00: every 6 [place] inhaler 00 (six) Medical hours as Branch needed for Wheezing or Shortness of Breath. albuterol Yes [id number] 2{puff} Inhale 2 [facility] 90 8-12 Puffs ity of mcg/actuati 00:00: every 6 [place] inhaler 00 (six) Medical hours as Branch needed for Wheezing or Shortness of Breath. albuterol Yes [id number] 2{puff} Inhale 2 [facility] 90 8-12 Puffs ity of mcg/actuati 00:00: every 6 [place] inhaler 00 (six) Medical hours as Branch needed for Wheezing or Shortness of Breath. albuterol Yes [id number] 2{puff} Inhale 2 [facility] 90 8-12 Puffs ity of mcg/actuati 00:00: every 6 [place] inhaler 00 (six) Medical hours as Branch needed for Wheezing or Shortness of Breath. albuterol Yes [id number] 2{puff} Inhale 2 [facility] 90 8-12 Puffs ity of mcg/actuati 00:00: every 6 [place] inhaler 00 (six) Medical hours as Branch needed for Wheezing or Shortness of Breath. albuterol Yes [id number] 2{puff} Inhale 2 [facility] 90 8-12 Puffs ity of mcg/actuati 00:00: every 6 [place] inhaler 00 (six) Medical hours as Branch needed for Wheezing or Shortness of Breath. albuterol Yes [id number] 2{puff} Inhale 2 [facility] 90 8-12 Puffs ity of mcg/actuati 00:00: every 6 [place] inhaler 00 (six) Medical hours as Branch needed for Wheezing or Shortness of Breath. albuterol Yes [id number] 2{puff} Inhale 2 [facility] 90 8-12 Puffs ity of mcg/actuati 00:00: every 6 [place] on inhaler 00 (six) Medical hours as Branch needed for Wheezing or Shortness of Breath. albuterol Yes [id number] 2{puff} Inhale 2 [facility] 90 8-12 Puffs ity of mcg/actuati 00:00: every 6 [place] inhaler 00 (six) Medical hours as Branch needed for Wheezing or Shortness of Breath. albuterol Yes [id number] 2{puff} Inhale 2 [facility] 90 8-12 Puffs ity of mcg/actuati 00:00: every 6 [place] inhaler 00 (six) Medical hours as Branch needed for Wheezing or Shortness of Breath. albuterol Yes [id number] 2{puff} Inhale 2 [facility] 90 8-12 Puffs ity of mcg/actuati 00:00: every 6 [place] inhaler 00 (six) Medical hours as Branch needed for Wheezing or Shortness of Breath. albuterol Yes [id number] 2{puff} Inhale 2 [facility] 90 8-12 Puffs ity of mcg/actuati 00:00: every 6 [place] inhaler 00 (six) Medical hours as Branch needed for Wheezing or Shortness of Breath. albuterol Yes [id number] 2{puff} Inhale 2 [facility] 90 8-12 Puffs ity of mcg/actuati 00:00: every 6 [place] inhaler 00 (six) Medical hours as Branch needed for Wheezing or Shortness of Breath. albuterol Yes [id number] 2{puff} Inhale 2 [facility] 90 8-12 Puffs ity of mcg/actuati 00:00: every 6 [place] inhaler 00 (six) Medical hours as Branch needed for Wheezing or Shortness of Breath. albuterol Yes [id number] 2{puff} Inhale 2 [facility] 90 8-12 Puffs ity of mcg/actuati 00:00: every 6 [place] inhaler 00 (six) Medical hours as Branch needed for Wheezing or Shortness of Breath. albuterol Yes [id number] 2{puff} Inhale 2 [facility] 90 8-12 Puffs ity of mcg/actuati 00:00: every 6 [place] on inhaler 00 (six) Medical hours as Branch needed for Wheezing or Shortness of Breath. PARoxetine Yes [id number] 20mg Take 1 U nivers 20 mg 8-12 tablet by ity of tablet 00:00: mouth [place] 00 daily. Medical [facility] albuterol Yes [id number] 2{puff} Inhale 2 [facility] 90 8-12 Puffs ity of mcg/actuati 00:00: every 6 [place] on inhaler 00 (six) Medical hours as Branch needed for Wheezing or Shortness of Breath. albuterol Yes [id number] 2{puff} Inhale 2 [facility] 90 8-12 Puffs ity of mcg/actuati 00:00: every 6 [place] inhaler 00 (six) Medical hours as Branch needed for Wheezing or Shortness of Breath. albuterol Yes [id number] 2{puff} Inhale 2 [facility] 90 8-12 Puffs ity of mcg/actuati 00:00: every 6 [place] on inhaler 00 (six) Medical hours as Branch needed for Wheezing or Shortness of Breath. albuterol Yes [id number] 2{puff} Inhale 2 [facility] 90 8-12 Puffs ity of mcg/actuati 00:00: every 6 [place] inhaler 00 (six) Medical hours as Branch needed for Wheezing or Shortness of Breath. albuterol Yes [id number] 2{puff} Inhale 2 [facility] 90 8-12 Puffs ity of mcg/actuati 00:00: every 6 [place] inhaler 00 (six) Medical hours as Branch needed for Wheezing or Shortness of Breath. LOESTRIN FE Yes [id number] 1{tbl} Take 1 [facility] 1 mg-20 mcg 8-12 tablet by ity of (21)/75 mg 00:00: mouth [place] (7) tablet 00 daily. Medical Branch PARoxetine Yes [id number] 20mg Take 1 U nivers 20 mg 8-12 tablet by ity of tablet 00:00: mouth [place] 00 daily. Medical Branch albuterol Yes [id number] 2{puff} Inhale 2 [facility] 90 8-12 Puffs ity of mcg/actuati 00:00: every 6 [place] on inhaler 00 (six) Medical hours as Branch needed for Wheezing or Shortness of Breath. LOESTRIN FE Yes [id number] 1{tbl} Take 1 [facility] 1 mg-20 mcg 8-12 tablet by ity of (21)/75 mg 00:00: mouth [place] (7) tablet 00 daily. Medical Branch albuterol 2021- No [id number] 2{puff} Inhale 2 [facility] 90 8-12 08-15 Puffs ity of mcg/actuati 00:00: 00:00 every 6 [place] on inhaler 00 :00 (six) Medical hours as Branch needed for Wheezing or Shortness of Breath. albuterol 2021- No [id number] 2{puff} Inhale 2 [facility] 90 8-12 08-15 Puffs ity of mcg/actuati 00:00: 00:00 every 6 [place] on inhaler 00 :00 (six) Medical hours as Branch needed for Wheezing or Shortness of Breath. LOESTRIN FE 2021- No [id number] 1{tbl} Take 1 [facility] 1 mg-20 mcg 8-12 04-05 tablet by it y of (21)/75 mg 00:00: 00:00 mouth [place] (7) tablet 00 :00 daily. Medical Branch LOESTRIN FE 2021- No [id number] 1{tbl} Take 1 [facility] 1 mg-20 mcg 8-12 04-05 tablet by it y of (21)/75 mg 00:00: 00:00 mouth [place] (7) tablet 00 :00 daily. Medical Branch PARoxetine 2020- No [id number] 20mg Take 1 [facility] 20 mg 8-12 11-15 tablet by ity of tablet 00:00: 00:00 mouth [place] 00 :00 daily. [facility] LOESTRIN FE Yes 1{tbl} Take 1 [place] 1 mg-20 mcg 5-03 tablet by ity of (21)/75 mg 00:00: mouth [place] (7) tablet 00 daily. [facility] LOESTRIN FE Yes 1{tbl} Take 1 [place] 1 mg-20 mcg 5-03 tablet by ity of (21)/75 mg 00:00: mouth [place] (7) tablet 00 daily. [facility] LOESTRIN FE Yes 1{tbl} Take 1 [place] 1 mg-20 mcg 5-03 tablet by ity of (21)/75 mg 00:00: mouth [place] (7) tablet 00 daily. [facility] LOESTRIN FE 2020- No 1{tbl} Take 1 U nivers 1 mg-20 mcg 5-03 08-12 tablet by it y of (21)/75 mg 00:00: 00:00 mouth [place] (7) tablet 00 :00 daily. [facility] LOESTRIN FE No 1{tbl} Take 1 U nivers 1 mg-20 mcg 5-03 08-12 tablet by it y of (21)/75 mg 00:00: 00:00 mouth [place] (7) tablet 00 :00 daily. [facility] lidocaine 2020- No 1{patch 1 Patch, Univers (LIDODERM) 02-21 } Topical, ity of 5 % (700 07:00: 18:59 Administer [place] mg/patch) 00 :00 over 12 Medical patch 1 Hours, Branch Patch ONCE, 1 dose, [facility] 02/21/21 at 0200, Routine hydrocortis 2020- No Topical [place] one 2.5 % 02-21- (Apply To ity of cream 06:13: 06:14 Affected [place] 00 :00 Areas), Medical ONCE, 1 Branch dose, [facility] 02/21/21 at 0115, Routine ibuprofen 2020- No 800mg 800 mg, Uni vers (IBU) 02-21-08 Oral, ity of tablet 800 05:15: 04:16 ONCE, 1 [place] mg 00 :00 dose, [facility] Medical 02/21/21 at Branch 0015, CHERYL HYDROcodone 2020-2020- No 1{tbl} 1 tablet, [facility] -acetaminop 4-08 04-08 Oral, ONCE i ty of hen (NORCO) 05:15: 04:16 NOW, 1 [place] 10-325 mg 00 :00 dose, [facility] tablet 1 02/21/21 at Branch tablet 0015, Routine lidocaine 5 Yes [id number] 1{patch Apply 1 [facility] % (700 4-08 } Patch to ity of mg/patch) 00:00: area(s) [place] patch 00 every 24 Medical (twenty-fo Branch ur) hours as needed for Localized pain. lidocaine Yes [id number] 1{patch Apply 1 [facility] % (700 4-08 } Patch to ity of mg/patch) 00:00: area(s) [place] patch 00 every 24 Medical (twenty-fo Branch ur) hours as needed for Localized pain. lidocaine Yes [id number] 1{patch Apply 1 [facility] % (700 4-08 } Patch to ity of mg/patch) 00:00: area(s) [place] patch 00 every 24 Medical (twenty-fo Branch ur) hours as needed for Localized pain. lidocaine Yes [id number] 1{patch Apply 1 [facility] % (700 4-08 } Patch to ity of mg/patch) 00:00: area(s) [place] patch 00 every 24 Medical (twenty-fo Branch ur) hours as needed for Localized pain. lidocaine Yes [id number] 1{patch Apply 1 [facility] % (700 4-08 } Patch to ity of mg/patch) 00:00: area(s) [place] patch 00 every 24 Medical (twenty-fo Branch ur) hours as needed for Localized pain. lidocaine Yes [id number] 1{patch Apply 1 [facility] % (700 4-08 } Patch to ity of mg/patch) 00:00: area(s) [place] patch 00 every 24 Medical (twenty-fo Branch ur) hours as needed for Localized pain. lidocaine Yes [id number] 1{patch Apply 1 [facility] % (700 4-08 } Patch to ity of mg/patch) 00:00: area(s) [place] patch 00 every 24 Medical (twenty-fo Branch ur) hours as needed for Localized pain. lidocaine Yes [id number] 1{patch Apply 1 [facility] % (700 4-08 } Patch to ity of mg/patch) 00:00: area(s) [place] patch 00 every 24 Medical (twenty- Branch ur) hours as needed for Localized pain. lidocaine Yes [id number] 1{patch Apply 1 [facility] % (700 4-08 } Patch to ity of mg/patch) 00:00: area(s) [place] patch 00 every 24 Medical (twenty- Branch ur) hours as needed for Localized pain. lidocaine Yes [id number] 1{patch Apply 1 [facility] % (700 4-08 } Patch to ity of mg/patch) 00:00: area(s) [place] patch 00 every 24 Medical ([facility] Branch ur) hours as needed for Localized pain. lidocaine Yes [id number] 1{patch Apply 1 [facility] % (700 4-08 } Patch to ity of mg/patch) 00:00: area(s) [place] patch 00 every 24 Medical ([facility] Branch ur) hours as needed for Localized pain. lidocaine Yes [id number] 1{patch Apply 1 [facility] % (700 4-08 } Patch to ity of mg/patch) 00:00: area(s) [place] patch 00 every 24 Medical ([facility] Branch ur) hours as needed for Localized pain. lidocaine Yes [id number] 1{patch Apply 1 [facility] % (700 4-08 } Patch to ity of mg/patch) 00:00: area(s) [place] patch 00 every 24 Medical (twenty- Branch ur) hours as needed for Localized pain. lidocaine Yes [id number] 1{patch Apply 1 [facility] % (700 4-08 } Patch to ity of mg/patch) 00:00: area(s) [place] patch 00 every 24 Medical (twenty- Branch ur) hours as needed for Localized pain. lidocaine Yes [id number] 1{patch Apply 1 [facility] % (700 4-08 } Patch to ity of mg/patch) 00:00: area(s) [place] patch 00 every 24 Medical (twenty- Branch ur) hours as needed for Localized pain. lidocaine 2020-0 Yes [id number] 1{patch Apply 1 [facility] % (700 4-08 } Patch to ity of mg/patch) 00:00: area(s) [place] patch 00 every 24 Medical (twenty-fo Branch ur) hours as needed for Localized pain. lidocaine 5 2020-0 Yes [id number] 1{patch Apply 1 [facility] % (700 4-08 } Patch to ity of mg/patch) 00:00: area(s) [place] patch 00 every 24 Medical (twenty-fo Branch ur) hours as needed for Localized pain. lidocaine 5 Yes [id number] 1{patch Apply 1 [facility] % (700 4-08 } Patch to ity of mg/patch) 00:00: area(s) [place] patch 00 every 24 Medical (twenty-fo Branch ur) hours as needed for Localized pain. lidocaine 5 2020-2021- No [id number] 1{patch Apply 1 [facility] % (700 4-08 04-05 } Patch to ity of mg/patch) 00:00: 00:00 area(s[place] patch 00 :00 every 24 Medical (twenty-fo Branch ur) hours as needed for Localized pain. lidocaine 5 2021- No [id number] 1{patch Apply 1 [facility] % (700 4-08 04-05 } Patch to ity of mg/patch) 00:00: 00:00 area(s[place] patch 00 :00 every 24 Medical (twenty-fo Branch ur) hours as needed for Localized pain. ibuprofen 2020- No [id number] 800mg Take 1 [facility] 800 mg 02-21-16 [...] Indication s: acute pain cephALEXin 2020- No [id number] 250mg Take 1 [facility] (KEFLEX) 02-21-12 capsule by ity of 250 mg 00:00: 04:59 mouth 4 [place] capsule 00 :00 (four) Medical times Branch daily for 3 days. Naproxen Naproxen 2020-0 No BID Naproxen 500 [...] No BID Naproxen 500 MG 500 MG 4 500 MG 00:00: 00 Naproxen Naproxen 2020-0 [...] No BID Naproxen 500 MG 500 MG - 500 MG 00:00: 00 Naproxen Naproxen 2020-0 [...] 4-07 500 MG 00:00: 00 LOESTRIN FE 0 Yes [id number] 1{tbl} Take 1 [facility] 1 mg-20 mcg 2-09 tablet by ity of (21)/75 mg 00:00: mouth [place] (7) tablet 00 daily. [facility] LOESTRIN FE 2021- No [id number] 1{tbl} Take 1 [facility] 1 mg-20 mcg 2-09 04-07 tablet by it y of (21)/75 mg 00:00: 00:00 mouth [place] (7) tablet 00 :00 daily. [facility] montelukast Yes 10mg Take 10 mg [facility] 10 mg 2-02 by mouth ity of tablet 00:00: daily. [facility] montelukast Yes 10mg Take 10 mg [facility] 10 mg 2-02 by mouth ity of tablet 00:00: daily. [place] [facility] montelukast Yes 10mg Take 10 mg [facility] 10 mg 2-02 by mouth ity of tablet 00:00: daily. [facility] montelukast Yes 10mg Take 10 mg [facility] 10 mg 2-02 by mouth ity of tablet 00:00: daily. [facility] montelukast 0 Yes 10mg Take 10 mg [facility] 10 mg 2-02 by mouth ity of tablet 00:00: daily. [facility] montelukast Yes 10mg Take 10 mg [facility] 10 mg 2-02 by mouth ity of tablet 00:00: daily. [facility] montelukast 0 Yes 10mg Take 10 mg [facility] 10 mg 2-02 by mouth ity of tablet 00:00: daily. [facility] montelukast 0 Yes 10mg Take 10 mg [facility] 10 mg 2-02 by mouth ity of tablet 00:00: daily. [facility] montelukast 0 Yes 10mg Take 10 mg [facility] 10 mg 2-02 by mouth ity of tablet 00:00: daily. [place] [facility] montelukast Yes 10mg Take 10 mg [facility] 10 mg 2-02 by mouth ity of tablet 00:00: daily. [facility] montelukast 0 Yes 10mg Take 10 mg [facility] 10 mg 2-02 by mouth ity of tablet 00:00: daily. [facility] montelukast 0 Yes 10mg Take 10 mg [facility] 10 mg 2-02 by mouth ity of tablet 00:00: daily. [facility] montelukast 0 Yes 10mg Take 10 mg [facility] 10 mg 2-02 by mouth ity of tablet 00:00: daily. [facility] montelukast 0 Yes 10mg Take 10 mg [facility] 10 mg 2-02 by mouth ity of tablet 00:00: daily. [facility] montelukast 0 Yes 10mg Take 10 mg [facility] 10 mg 2-02 by mouth ity of tablet 00:00: daily. [facility] montelukast 0 Yes 10mg Take 10 mg [facility] 10 mg 2-02 by mouth ity of tablet 00:00: daily. [facility] montelukast 0 Yes 10mg Take 10 mg [facility] 10 mg 2-02 by mouth ity of tablet 00:00: daily. [facility] montelukast 0 Yes 10mg Take 10 mg [facility] 10 mg 2-02 by mouth ity of tablet 00:00: daily. [facility] montelukast 0 Yes 10mg Take 10 mg [facility] 10 mg 2-02 by mouth ity of tablet 00:00: daily. [facility] montelukast 0 Yes 10mg Take 10 mg [facility] 10 mg 2-02 by mouth ity of tablet 00:00: daily. [facility] montelukast 0 Yes 10mg Take 10 mg [facility] 10 mg 2-02 by mouth ity of tablet 00:00: daily. [facility] montelukast 0 Yes 10mg Take 10 mg [facility] 10 mg 2-02 by mouth ity of tablet 00:00: daily. [facility] montelukast 0 Yes 10mg Take 10 mg [facility] 10 mg 2-02 by mouth ity of tablet 00:00: daily. [facility] montelukast 0 Yes 10mg Take 10 mg [facility] 10 mg 2-02 by mouth ity of tablet 00:00: daily. [facility] montelukast 2021-0 Yes 10mg Take 10 mg [facility] 10 mg 2-02 by mouth ity of tablet 00:00: daily. [facility] montelukast 0 Yes 10mg Take 10 mg [facility] 10 mg 2-02 by mouth ity of tablet 00:00: daily. [facility] montelukast 0 Yes 10mg Take 10 mg [facility] 10 mg 2-02 by mouth ity of tablet 00:00: daily. [facility] montelukast 0 Yes 10mg Take 10 mg [facility] 10 mg 2-02 by mouth ity of tablet 00:00: daily. [facility] montelukast 0 Yes 10mg Take 10 mg [facility] 10 mg 2-02 by mouth ity of tablet 00:00: daily. [facility] montelukast 0 Yes 10mg Take 10 mg [facility] 10 mg 2-02 by mouth ity of tablet 00:00: daily. [facility] montelukast 0 Yes 10mg Take 10 mg [facility] 10 mg 2-02 by mouth ity of tablet 00:00: daily. [facility] montelukast 0 Yes 10mg Take 10 mg [facility] 10 mg 2-02 by mouth ity of tablet 00:00: daily. [facility] montelukast 0 Yes 10mg Take 10 mg [facility] 10 mg 2-02 by mouth ity of tablet 00:00: daily. [facility] montelukast 0 Yes 10mg Take 10 mg [facility] 10 mg 2-02 by mouth ity of tablet 00:00: daily. [facility] montelukast 0 Yes 10mg Take 10 mg [facility] 10 mg 2-02 by mouth ity of tablet 00:00: daily. [facility] montelukast 0 Yes 10mg Take 10 mg [facility] 10 mg 2-02 by mouth ity of tablet 00:00: daily. [facility] montelukast 0 Yes 10mg Take 10 mg [facility] 10 mg 2-02 by mouth ity of tablet 00:00: daily. [facility] montelukast 0 Yes 10mg Take 10 mg [facility] 10 mg 2-02 by mouth ity of tablet 00:00: daily. [facility] montelukast 0 Yes 10mg Take 10 mg [facility] 10 mg 2-02 by mouth ity of tablet 00:00: daily. [facility] montelukast 0 Yes 10mg Take 10 mg [facility] 10 mg 2-02 by mouth ity of tablet 00:00: daily. [facility] montelukast 0 Yes 10mg Take 10 mg [facility] 10 mg 2-02 by mouth ity of tablet 00:00: daily. [facility] montelukast 0 Yes 10mg Take 10 mg [facility] 10 mg 2-02 by mouth ity of tablet 00:00: daily. [place] [facility] montelukast 0 Yes 10mg Take 10 mg [facility] 10 mg 2-02 by mouth ity of tablet 00:00: daily. [place] [facility] montelukast 0 Yes 10mg Take 10 mg [facility] 10 mg 2-02 by mouth ity of tablet 00:00: daily. [place] [facility] montelukast 0 Yes 10mg Take 10 mg [facility] 10 mg 2-02 by mouth ity of tablet 00:00: daily. [facility] montelukast 0 Yes 10mg Take 10 mg [facility] 10 mg 2-02 by mouth ity of tablet 00:00: daily. [place] [facility] montelukast 0 Yes 10mg Take 10 mg [facility] 10 mg 2-02 by mouth ity of tablet 00:00: daily. [place] [facility] montelukast 0 Yes 10mg Take 10 mg [facility] 10 mg 2-02 by mouth ity of tablet 00:00: daily. [facility] montelukast 0 Yes 10mg Take 10 mg [facility] 10 mg 2-02 by mouth ity of tablet 00:00: daily. [place] [facility] montelukast 0 Yes 10mg Take 10 mg [facility] 10 mg 2-02 by mouth ity of tablet 00:00: daily. [place] [facility] montelukast 0 Yes 10mg Take 10 mg [facility] 10 mg 2-02 by mouth ity of tablet 00:00: daily. [place] [facility] montelukast 0 Yes 10mg Take 10 mg [facility] 10 mg 2-02 by mouth ity of tablet 00:00: daily. [facility] montelukast 0 Yes 10mg Take 10 mg [facility] 10 mg 2-02 by mouth ity of tablet 00:00: daily. [facility] montelukast 0 Yes 10mg Take 10 mg [facility] 10 mg 2-02 by mouth ity of tablet 00:00: daily. [facility] montelukast 0 Yes 10mg Take 10 mg [facility] 10 mg 2-02 by mouth ity of tablet 00:00: daily. [facility] montelukast 0 Yes 10mg Take 10 mg [facility] 10 mg 2-02 by mouth ity of tablet 00:00: daily. [place] [facility] montelukast 0 Yes 10mg Take 10 mg [facility] 10 mg 2-02 by mouth ity of tablet 00:00: daily. [place] [facility] montelukast 0 Yes 10mg Take 10 mg [facility] 10 mg 2-02 by mouth ity of tablet 00:00: daily. [place] [facility] montelukast 0 Yes 10mg Take 10 mg [facility] 10 mg 2-02 by mouth ity of tablet 00:00: daily. [facility] montelukast 0 Yes 10mg Take 10 mg [facility] 10 mg 2-02 by mouth ity of tablet 00:00: daily. [place] [facility] montelukast 0 Yes 10mg Take 10 mg [facility] 10 mg 2-02 by mouth ity of tablet 00:00: daily. [place] [facility] montelukast 0 Yes 10mg Take 10 mg [facility] 10 mg 2-02 by mouth ity of tablet 00:00: daily. [facility] montelukast 0 Yes 10mg Take 10 mg [facility] 10 mg 2-02 by mouth ity of tablet 00:00: daily. [place] [facility] montelukast 0 Yes 10mg Take 10 mg [facility] 10 mg 2-02 by mouth ity of tablet 00:00: daily. [place] [facility] montelukast 0 Yes 10mg Take 10 mg [facility] 10 mg 2-02 by mouth ity of tablet 00:00: daily. [place] [facility] montelukast 0 Yes 10mg Take 10 mg [facility] 10 mg 2-02 by mouth ity of tablet 00:00: daily. [facility] montelukast 0 Yes 10mg Take 10 mg [facility] 10 mg 2-02 by mouth ity of tablet 00:00: daily. [facility] montelukast 0 Yes 10mg Take 10 mg [facility] 10 mg 2-02 by mouth ity of tablet 00:00: daily. [facility] montelukast 0 Yes 10mg Take 10 mg [facility] 10 mg 2-02 by mouth ity of tablet 00:00: daily. [facility] montelukast 0 Yes 10mg Take 10 mg [facility] 10 mg 2-02 by mouth ity of tablet 00:00: daily. [place] [facility] montelukast 0 Yes 10mg Take 10 mg [facility] 10 mg 2-02 by mouth ity of tablet 00:00: daily. [place] [facility] montelukast 0 Yes 10mg Take 10 mg [facility] 10 mg 2-02 by mouth ity of tablet 00:00: daily. [place] [facility] montelukast 0 Yes 10mg Take 10 mg [facility] 10 mg 2-02 by mouth ity of tablet 00:00: daily. [facility] montelukast 0 Yes 10mg Take 10 mg [facility] 10 mg 2-02 by mouth ity of tablet 00:00: daily. [place] [facility] montelukast 0 Yes 10mg Take 10 mg [facility] 10 mg 2-02 by mouth ity of tablet 00:00: daily. [place] [facility] montelukast 0 Yes 10mg Take 10 mg Univers 10 mg 2-02 by mouth ity of tablet 00:00: daily. [facility] montelukast 0 Yes 10mg Take 10 mg Univers 10 mg 2-02 by mouth ity of tablet 00:00: daily. [place] [facility] montelukast 0 Yes 10mg Take 10 mg Univers 10 mg 2-02 by mouth ity of tablet 00:00: daily. [place] [facility] montelukast 0 Yes 10mg Take 10 mg Univers 10 mg 2-02 by mouth ity of tablet 00:00: daily. [place] [facility] montelukast 0 Yes 10mg Take 10 mg Univers 10 mg 2-02 by mouth ity of tablet 00:00: daily. [facility] montelukast 0 Yes 10mg Take 10 mg Univers 10 mg 2-02 by mouth ity of tablet 00:00: daily. [facility] montelukast 0 Yes 10mg Take 10 mg Univers 10 mg 2-02 by mouth ity of tablet 00:00: daily. [facility] montelukast 0 Yes 10mg Take 10 mg Univers 10 mg 2-02 by mouth ity of tablet 00:00: daily. [facility] montelukast 0 Yes 10mg Take 10 mg Univers 10 mg 2-02 by mouth ity of tablet 00:00: daily. [place] [facility] montelukast 0 Yes 10mg Take 10 mg Univers 10 mg 2-02 by mouth ity of tablet 00:00: daily. [facility] montelukast Yes 10mg Take 10 mg Univers 10 mg 2-02 by mouth ity of tablet 00:00: daily. [facility] montelukast 0 Yes 10mg Take 10 mg Univers 10 mg 2-02 by mouth ity of tablet 00:00: daily. [facility] montelukast 0 Yes 10mg Take 10 mg Univers 10 mg 2-02 by mouth ity of tablet 00:00: daily. [facility] montelukast 0 Yes 10mg Take 10 mg Univers 10 mg 2-02 by mouth ity of tablet 00:00: daily. [facility] montelukast 0 Yes 10mg Take 10 mg Univers 10 mg 2-02 by mouth ity of tablet 00:00: daily. [facility] montelukast 0 Yes 10mg Take 10 mg Univers 10 mg 2-02 by mouth ity of tablet 00:00: daily. [facility] montelukast 0 Yes 10mg Take 10 mg Univers 10 mg 2-02 by mouth ity of tablet 00:00: daily. [facility] montelukast 0 Yes 10mg Take 10 mg Univers 10 mg 2-02 by mouth ity of tablet 00:00: daily. [facility] montelukast 0 Yes 10mg Take 10 mg [...] by mouth ity of tablet 00:00: daily. [place] [facility] medroxyPROG 2019-11- No 150mg Univ ers ESTERone 11-18 ity of (DEPO-PROVE 18:15: 17:11 [place] RA) 00 :00 Medical injection Branch 150 mg medroxyPROG 2019-11- No 150mg 150 mg, U nivers ESTERone 11-18 Intramuscu ity of (DEPO-PROVE 18:15: 17:11 lar, ONCE, [place] RA) 00 :00 1 dose, Medical injection Tue Branch 150 mg 09/18/20 at 1215, Routine Kenalog Kenalog 2019- No 40mg Common (Triamcinol (Triamcinol 1-03 S pirit one) one) 00:00: - [facility]I 00 [facility] Kenalog Kenalog 2019- No 40mg Common (Triamcinol (Triamcinol 1-03 S pirit one) one) 00:00: - [facility]I 00 [facility] Kenalog Kenalog 2019- No 40mg Common (Triamcinol (Triamcinol 1-03 S pirit one) one) 00:00: - [facility]I 00 [facility] Kenalog Kenalog 2019- No 40mg Common (Triamcinol (Triamcinol 1-03 S pirit one) one) 00:00: - [facility]I 00 [facility] Kenalog Kenalog 2019- No 40mg Common (Triamcinol (Triamcinol 1-03 S pirit one) one) 00:00: - [facility]I 00 [facility] Kenalog Kenalog 2019- No 40mg Common (Triamcinol (Triamcinol 1-03 S pirit one) one) 00:00: - [facility]I 00 [facility] Kenalog Kenalog 2019- No 40mg Common (Triamcinol (Triamcinol 1-03 S pirit one) one) 00:00: - [facility]I 00 [facility] Kenalog Kenalog 2019- No 40mg Common (Triamcinol (Triamcinol 1-03 S pirit one) one) 00:00: - [facility]I 00 [facility] Kenalog Kenalog 2019- No 40mg Common (Triamcinol (Triamcinol 1-03 S pirit one) one) 00:00: - [facility]I 00 [facility] Kenalog Kenalog 2020- No 40mg Common (Triamcinol (Triamcinol 1-03 S pirit one) one) 00:00: - [facility]I 00 [facility] Kenalog Kenalog 2020- No 40mg Common (Triamcinol (Triamcinol 1-03 S pirit one) one) 00:00: - [facility]I 00 [facility] Kenalog Kenalog 2020-1 No 40mg Common (Triamcinol (Triamcinol 1-03 S pirit one) one) 00:00: - [facility]I 00 [facility] Kenalog Kenalog 2020-1 No 40mg Common (Triamcinol (Triamcinol 1-03 S pirit one) one) 00:00: - [facility]I 00 [facility] Kenalog Kenalog 2020-1 No 40mg Common (Triamcinol (Triamcinol 1-03 S pirit one) one) 00:00: - [facility]I 00 [facility] Kenalog Kenalog 2020-1 No 40mg Common (Triamcinol (Triamcinol 1-03 S pirit one) one) 00:00: - [facility]I 00 [facility] Kenalog Kenalog 2020- No 40mg Common (Triamcinol (Triamcinol 1-03 S pirit one) one) 00:00: - [facility]I 00 [facility] Kenalog Kenalog 2020-1 No 40mg Common (Triamcinol (Triamcinol 1-03 S pirit one) one) 00:00: - [facility]I 00 [facility] Kenalog Kenalog 2020- No 40mg Common (Triamcinol (Triamcinol 1-03 S pirit one) one) 00:00: - [facility]I 00 [facility] Kenalog Kenalog 2020- No 40mg Common (Triamcinol (Triamcinol 1-03 S pirit one) one) 00:00: - [facility]I 00 [facility] Kenalog Kenalog 2020- No 40mg Common (Triamcinol (Triamcinol 1-03 S pirit one) one) 00:00: - [facility]I 00 [facility] Kenalog Kenalog 2020- No 40mg Common (Triamcinol (Triamcinol 1-03 S pirit one) one) 00:00: - [facility]I 00 [facility] medroxyPROG 2019- No 150mg Univ ers ESTERone 8-05 08-05 ity of (DEPO-PROVE 22:15: 21:02 [place] RA) 00 :00 Medical injection Branch 150 mg medroxyPROG 2019- No 150mg 150 mg, U nivers ESTERone 8 08-05 Intramuscu ity of (DEPO-PROVE 22:15: 21:02 lar, ONCE, [place] RA) 00 :00 1 dose, Medical injection Thu06/20/20 Bran ch 150 mg at 1715, Routine medroxyPROG 2019- No 150mg 150 mg, U nivers ESTERone - 05-06 Intramuscu ity of (DEPO-PROVE 15:00: 17:52 lar, ONCE, [place] RA) 00 :00 1 dose, Medical injection Thu03/21/20 Bran ch 150 mg at 1000, Routine 2020- No Take by Unive rs 123/iron/fo 5- 05-06 mouth ity of lic/omeg3s 13:31: 00:00 daily. [place] (ONE-A-DAY 09 :00 Medical WOMEN'S Branch 1 ORAL) 2019-0 Yes [id number] 1{tbl} Take 1 Univers vitamin 5-06 tablet by ity of w/FA tablet 00:00: mouth [place] 00 daily. Medical Branch 2020-0 Yes [id number] 1{tbl} Take 1 Univers vitamin 5-06 tablet by ity of w/FA tablet 00:00: mouth [place] 00 daily. Medical Branch 2019-0 Yes [id number] 1{tbl} Take 1 Univers vitamin 5-06 tablet by ity of w/FA tablet 00:00: mouth [place] 00 daily. Medical Branch docusate 2020-0 Yes [id number] 240mg Take 1 U nivers calcium 240 5-06 capsule by it y of mg capsule 00:00: mouth once [place] 00 daily as Medical needed for Branch Constipati on. ferrous 2020-0 Yes [id number] 325mg Take 1 Un [place] sulfate 325 5-06 tablet by ity of mg (65 mg 00:00: mouth 2 [place] iron) 00 (two) Medical tablet times Branch daily. ibuprofen 2020-0 Yes [id number] 600mg Take 1 Univers 600 mg 5-06 tablet by ity of tablet 00:00: mouth [place] 00 every 6 Medical (six) Branch hours as needed (Pain). Take with food or milk. 2019-0 Yes [id number] 1{tbl} Take 1 Univers vitamin 5-06 tablet by ity of w/FA tablet 00:00: mouth [place] 00 daily. Medical Branch docusate 2020-0 Yes [id number] 240mg Take 1 U nivers calcium 240 5-06 capsule by it y of mg capsule 00:00: mouth once [place] 00 daily as Medical needed for Branch Constipati on. ferrous 2020-0 Yes [id number] 325mg Take 1 Un [place] sulfate 325 5-06 tablet by ity of mg (65 mg 00:00: mouth 2 [place] iron) 00 (two) Medical tablet times Branch daily. ibuprofen 2020-0 Yes [id number] 600mg Take 1 Univers 600 mg 5-06 tablet by ity of tablet 00:00: mouth [place] 00 every 6 Medical (six) Branch hours as needed (Pain). Take with food or milk. 2020-0 Yes [id number] 1{tbl} Take 1 Univers vitamin 5-06 tablet by ity of w/FA tablet 00:00: mouth [place] 00 daily. Medical Branch docusate 2020-0 Yes [id number] 240mg Take 1 U nivers calcium 240 5-06 capsule by it y of mg capsule 00:00: mouth once [place] 00 daily as Medical needed for Branch Constipati on. ferrous 2020-0 Yes [id number] 325mg Take 1 Un [place] sulfate 325 5-06 tablet by ity of mg (65 mg 00:00: mouth 2 [place] iron) 00 (two) Medical tablet times Branch daily. ibuprofen 2020-0 Yes [id number] 600mg Take 1 Univers 600 mg 5-06 tablet by ity of tablet 00:00: mouth [place] 00 every 6 Medical (six) Branch hours as needed (Pain). Take with food or milk. 2020-0 Yes [id number] 1{tbl} Take 1 Univers vitamin 5-06 tablet by ity of w/FA tablet 00:00: mouth [place] 00 daily. Medical Branch 2020-0 Yes [id number] 1{tbl} Take 1 Univers vitamin 5-06 tablet by ity of w/FA tablet 00:00: mouth [place] 00 daily. Medical Branch 2020-0 Yes [id number] 1{tbl} Take 1 Univers vitamin 5-06 tablet by ity of w/FA tablet 00:00: mouth [place] 00 daily. Medical Branch 2020-0 Yes [id number] 1{tbl} Take 1 Univers vitamin 5-06 tablet by ity of w/FA tablet 00:00: mouth [place] 00 daily. Medical Branch 2020-0 Yes [id number] 1{tbl} Take 1 Univers vitamin 5-06 tablet by ity of w/FA tablet 00:00: mouth [place] 00 daily. Medical Branch 2020-0 Yes [id number] 1{tbl} Take 1 Univers vitamin 5-06 tablet by ity of w/FA tablet 00:00: mouth [place] 00 daily. Medical Branch 2020-0 Yes [id number] 1{tbl} Take 1 Univers vitamin 5-06 tablet by ity of w/FA tablet 00:00: mouth [place] 00 daily. Medical Branch 2020-0 Yes [id number] 1{tbl} Take 1 Univers vitamin 5-06 tablet by ity of w/FA tablet 00:00: mouth [place] 00 daily. Medical Rosanky 2020-0 Yes [id number] 1{tbl} Take 1 Univers vitamin 5-06 tablet by ity of w/FA tablet 00:00: mouth [place] 00 daily. Medical Branch 2020-0 Yes [id number] 1{tbl} Take 1 Univers vitamin 5-06 tablet by ity of w/FA tablet 00:00: mouth [place] 00 daily. Medical Branch 2020-0 Yes [id number] 1{tbl} Take 1 Univers vitamin 5-06 tablet by ity of w/FA tablet 00:00: mouth [place] 00 daily. Medical Branch 2020-0 Yes [id number] 1{tbl} Take 1 Univers vitamin 5-06 tablet by ity of w/FA tablet 00:00: mouth [place] 00 daily. Medical Branch 2020-0 Yes [id number] 1{tbl} Take 1 Univers vitamin 5-06 tablet by ity of w/FA tablet 00:00: mouth [place] 00 daily. Medical Branch 2020-0 Yes [id number] 1{tbl} Take 1 Univers vitamin 5-06 tablet by ity of w/FA tablet 00:00: mouth [place] 00 daily. Medical Rosanky 2020-0 Yes [id number] 1{tbl} Take 1 Univers vitamin 5-06 tablet by ity of w/FA tablet 00:00: mouth [place] 00 daily. Medical Rosanky 2020-0 Yes [id number] 1{tbl} Take 1 Univers vitamin 5-06 tablet by ity of w/FA tablet 00:00: mouth [place] 00 daily. Medical Branch 2020-0 Yes [id number] 1{tbl} Take 1 Univers vitamin 5-06 tablet by ity of w/FA tablet 00:00: mouth [place] 00 daily. Medical Branch 2020-0 Yes [id number] 1{tbl} Take 1 Univers vitamin 5-06 tablet by ity of w/FA tablet 00:00: mouth [place] 00 daily. Medical Branch 2020-0 Yes [id number] 1{tbl} Take 1 Univers vitamin 5-06 tablet by ity of w/FA tablet 00:00: mouth [place] 00 daily. Medical Branch 2020-0 Yes [id number] 1{tbl} Take 1 Univers vitamin 5-06 tablet by ity of w/FA tablet 00:00: mouth [place] 00 daily. Medical Branch 2020-0 Yes [id number] 1{tbl} Take 1 Univers vitamin 5-06 tablet by ity of w/FA tablet 00:00: mouth [place] 00 daily. Medical Branch 2020-0 Yes [id number] 1{tbl} Take 1 Univers vitamin 5-06 tablet by ity of w/FA tablet 00:00: mouth [place] 00 daily. Medical Branch 2020-0 Yes [id number] 1{tbl} Take 1 Univers vitamin 5-06 tablet by ity of w/FA tablet 00:00: mouth [place] 00 daily. Medical Branch 2020-0 Yes [id number] 1{tbl} Take 1 Univers vitamin 5-06 tablet by ity of w/FA tablet 00:00: mouth [place] 00 daily. Medical Branch 2020-0 Yes [id number] 1{tbl} Take 1 Univers vitamin 5-06 tablet by ity of w/FA tablet 00:00: mouth [place] 00 daily. Medical Branch 2020-0 Yes [id number] 1{tbl} Take 1 Univers vitamin 5-06 tablet by ity of w/FA tablet 00:00: mouth [place] 00 daily. Medical Branch 2020-0 Yes [id number] 1{tbl} Take 1 Univers vitamin 5-06 tablet by ity of w/FA tablet 00:00: mouth [place] 00 daily. Medical Rosanky 2020-0 Yes [id number] 1{tbl} Take 1 Univers vitamin 5-06 tablet by ity of w/FA tablet 00:00: mouth [place] 00 daily. Medical Branch 2020-0 Yes [id number] 1{tbl} Take 1 Univers vitamin 5-06 tablet by ity of w/FA tablet 00:00: mouth [place] 00 daily. Medical Branch 2020-0 Yes [id number] 1{tbl} Take 1 Univers vitamin 5-06 tablet by ity of w/FA tablet 00:00: mouth [place] 00 daily. Medical Rosanky 2020-0 Yes [id number] 1{tbl} Take 1 Univers vitamin 5-06 tablet by ity of w/FA tablet 00:00: mouth [place] 00 daily. Medical Branch 2020-0 Yes [id number] 1{tbl} Take 1 Univers vitamin 5-06 tablet by ity of w/FA tablet 00:00: mouth [place] 00 daily. Medical Rosanky 2020-0 Yes [id number] 1{tbl} Take 1 Univers vitamin 5-06 tablet by ity of w/FA tablet 00:00: mouth [place] 00 daily. Medical Rosanky 2020-0 Yes [id number] 1{tbl} Take 1 Univers vitamin 5-06 tablet by ity of w/FA tablet 00:00: mouth [place] 00 daily. Medical Rosanky 2020-0 Yes [id number] 1{tbl} Take 1 Univers vitamin 5-06 tablet by ity of w/FA tablet 00:00: mouth [place] 00 daily. Medical Rosanky 2020-0 Yes [id number] 1{tbl} Take 1 Univers vitamin 5-06 tablet by ity of w/FA tablet 00:00: mouth [place] 00 daily. Medical Rosanky 2020-0 Yes [id number] 1{tbl} Take 1 Univers vitamin 5-06 tablet by ity of w/FA tablet 00:00: mouth [place] 00 daily. Medical Branch 2020-0 Yes [id number] 1{tbl} Take 1 Univers vitamin 5-06 tablet by ity of w/FA tablet 00:00: mouth [place] 00 daily. Medical Rosanky 2020-0 Yes [id number] 1{tbl} Take 1 Univers vitamin 5-06 tablet by ity of w/FA tablet 00:00: mouth [place] 00 daily. Medical Rosanky 2020-0 Yes [id number] 1{tbl} Take 1 Univers vitamin 5-06 tablet by ity of w/FA tablet 00:00: mouth [place] 00 daily. Medical Rosanky 2020-0 Yes [id number] 1{tbl} Take 1 Univers vitamin 5-06 tablet by ity of w/FA tablet 00:00: mouth [place] 00 daily. Medical Branch 2020-0 Yes [id number] 1{tbl} Take 1 Univers vitamin 5-06 tablet by ity of w/FA tablet 00:00: mouth [place] 00 daily. Medical Branch 2020-0 Yes [id number] 1{tbl} Take 1 Univers vitamin 5-06 tablet by ity of w/FA tablet 00:00: mouth [place] 00 daily. Medical Branch 2020-0 Yes [id number] 1{tbl} Take 1 Univers vitamin 5-06 tablet by ity of w/FA tablet 00:00: mouth [place] 00 daily. Medical Branch 2020-0 Yes [id number] 1{tbl} Take 1 Univers vitamin 5-06 tablet by ity of w/FA tablet 00:00: mouth [place] 00 daily. Medical Rosanky 2020-0 Yes [id number] 1{tbl} Take 1 Univers vitamin 5-06 tablet by ity of w/FA tablet 00:00: mouth [place] 00 daily. Medical Branch 2020-0 Yes [id number] 1{tbl} Take 1 Univers vitamin 5-06 tablet by ity of w/FA tablet 00:00: mouth [place] 00 daily. Medical Branch 2020-0 Yes [id number] 1{tbl} Take 1 Univers vitamin 5-06 tablet by ity of w/FA tablet 00:00: mouth [place] 00 daily. Medical Rosanky 2020-0 Yes [id number] 1{tbl} Take 1 Univers vitamin 5-06 tablet by ity of w/FA tablet 00:00: mouth [place] 00 daily. Medical Branch 2020-0 Yes [id number] 1{tbl} Take 1 Univers vitamin 5-06 tablet by ity of w/FA tablet 00:00: mouth [place] 00 daily. Medical Branch 2020-0 Yes [id number] 1{tbl} Take 1 Univers vitamin 5-06 tablet by ity of w/FA tablet 00:00: mouth [place] 00 daily. Medical Rosanky 2020-0 Yes [id number] 1{tbl} Take 1 Univers vitamin 5-06 tablet by ity of w/FA tablet 00:00: mouth [place] 00 daily. Medical Rosanky 2020-0 Yes [id number] 1{tbl} Take 1 Univers vitamin 5-06 tablet by ity of w/FA tablet 00:00: mouth [place] 00 daily. Medical Branch 2020-0 Yes [id number] 1{tbl} Take 1 Univers vitamin 5-06 tablet by ity of w/FA tablet 00:00: mouth [place] 00 daily. Medical Rosanky 2020-0 Yes [id number] 1{tbl} Take 1 Univers vitamin 5-06 tablet by ity of w/FA tablet 00:00: mouth [place] 00 daily. Medical Branch 2020-0 Yes [id number] 1{tbl} Take 1 Univers vitamin 5-06 tablet by ity of w/FA tablet 00:00: mouth [place] 00 daily. Medical Branch 2020-0 Yes [id number] 1{tbl} Take 1 Univers vitamin 5-06 tablet by ity of w/FA tablet 00:00: mouth [place] 00 daily. Medical Rosanky 2020-0 Yes [id number] 1{tbl} Take 1 Univers vitamin 5-06 tablet by ity of w/FA tablet 00:00: mouth [place] 00 daily. Medical [place]y 2020-0 Yes [id number] 1{tbl} Take 1 Univers vitamin 5-06 tablet by ity of w/FA tablet 00:00: mouth [place] 00 daily. Medical Branch 2020-0 Yes [id number] 1{tbl} Take 1 Univers vitamin 5-06 tablet by ity of w/FA tablet 00:00: mouth [place] 00 daily. Medical Rosanky 2020-0 Yes [id number] 1{tbl} Take 1 Univers vitamin 5-06 tablet by ity of w/FA tablet 00:00: mouth [place] 00 daily. Medical Rosanky 2020-0 Yes [id number] 1{tbl} Take 1 Univers vitamin 5-06 tablet by ity of w/FA tablet 00:00: mouth [place] 00 daily. Medical Rosanky 2020-0 Yes [id number] 1{tbl} Take 1 Univers vitamin 5-06 tablet by ity of w/FA tablet 00:00: mouth [place] 00 daily. Medical Ros[place]y 2020-0 Yes [id number] 1{tbl} Take 1 Univers vitamin 5-06 tablet by ity of w/FA tablet 00:00: mouth [place] 00 daily. [facility] 2020-0 Yes [id number] 1{tbl} Take 1 Univers vitamin 5-06 tablet by ity of w/FA tablet 00:00: mouth [place] 00 daily. Medical Branch 2021- No [id number] 1{tbl} Take 1 Univers vitamin 5-06 10-25 tablet by ity of w/FA tablet 00:00: 00:00 mouth [place] 00 :00 daily. Medical Branch 2021- No [id number] 1{tbl} Take 1 [facility] vitamin 5-06 10-25 tablet by ity of w/FA tablet 00:00: 00:00 mouth [place] 00 :00 daily. Medical Branch docusate 2019- No [id number] 240mg Take 1 Univers calcium 240 03-21-26 capsule by i ty of mg capsule 00:00: 00:00 mouth once [place] 00 :00 daily as Medical needed for Branch Constipati on. ferrous 2019- No [id number] 325mg Take 1 U nivers sulfate 325 03-21-26 tablet by it y of mg (65 mg 00:00: 00:00 mouth 2 [place] iron) 00 :00 (two) Medical tablet times Branch daily. ibuprofen 2019- No [id number] 600mg Take 1 Univers 600 mg 03-21 05-26 tablet by ity of tablet 00:00: 00:00 mouth [place] 00 :00 every 6 Medical (six) Branch hours as needed (Pain). Take with food or milk. rho(D) Yes 300ug 300 mcg, Univer s immune 5-05 Intramuscu ity of globulin 15:16: lar, ONCE, [place] (RHOGAM) 11 For 1 Medical syringe 300 dose, Branch mcg Conditiona l, Routine ondansetron Yes 4mg 4 mg, Slow Univers (ZOFRAN 5-05 IV Push, ity of (PF)) 15:16: Q8HPRN, [place] injection 4 06 Starting Medi kailash mg 03/20/20 Branch at 1016, Until Discontinu ed, Routine, Nausea and Vomiting (N/V) simethicone Yes 160mg 160 mg, Un [place]orro (GAS RELIEF 5-05 Oral, ity of (SIMETHICON 15:16: PC+HSPRN, [place] E)) 06 Starting Medical chewable Tue 20 Branc h tablet 160 at 1016, mg Until Discontinu ed, Routine, Gas magnesium 2020-0 Yes 30mL 30 mL, Univer s hydroxide 5-05 Oral, ity of (MILK OF 15:16: QDAILYPRN, [place] MAGNESIA) 06 Starting Medica l 400 mg/5 mL Thu03/20/20 Br anch suspension at 1016, 30 mL Until Discontinu ed, Routine, Constipati on HYDROcodone 2020-0 Yes 1{tbl} 1 tablet, Univers -acetaminop 5-05 [...] Until Discontinu ed, Routine, Perineum discomfort acetaminoph 2020- No 650mg 650 mg, U nivers en 03-1904 Oral, ity of (TYLENOL) 21:00: 19:50 ONCE, 1 [place] tablet 650 00 :00 dose, Mon Medi kailash mg 03/19/20 at Branch 1600, Routine D5W-LR IV 2019- 2020- No 1000mL at 125 Uni vers infusion 03-19 05-05 mL/hr, IV ity o f 1,000 mL 17:45: 15:16 Infusion, [place] 00 :11 CONTINUOUS Medical , Starting Branch 03/19/20 at 1245, Until 03/20/20 at 1016, Routine proMETHazin 2019- No 25mg 25 mg, IV Univers e 03-19-05 Piggyback, ity of (PHENERGAN) 17:35: 15:16 Q6HPRN, [place] 25 mg in 02 :11 Starting Medical NaCl 0.9% 03/19/20 Bran ch (NS) 50 mL at 1235, piggyback Until 03/20/20 at 1016, 50 mL FENTanyl PF 2020- No 100ug 100 mcg, Univers (SUBLIMAZE 03-1905 Slow IV ity o f (PF)) 17:35: 15:16 Push, [place] injection 02 :11 Q1HPRN, Medical 100 mcg Starting [place] 03/19/20 at 1235, Until 03/20/20 at 1016, Routine, Pain (scale 7-10), contractio n pain without an epidural and SVE < 8 cm and Cat I strip lactated 2019- 2020- No 500mL at 999 Unive rs ringers IV 03-19 05-05 mL/hr, 500 it y of infusion 17:35: 15:16 mL, IV [place] 500 mL 01 :11 Infusion, Medical PRN - SEE [place] INSTRUCTIO NS, Starting 03/19/20 at 1235, Until 03/20/20 at 1016, Routine LR 1000 mL 2019-0 2020- No 2mU/min at 6-120 Univers + oxytocin 5- 05-05 mL/hr, IV ity of 20 units IV 17:35: 15:16 Infusion, [place] Solution 01 :11 TITRATE, Medical Starting Branch 03/19/20 at 1235, Until 03/20/20 at 1016, CHERYL 2020-0 Yes Take by Univer s 123/iron/fo 4-27 mouth ity of lic/omeg3s 23:40: daily. [place] (ONE-A-DAY 14 Medical WOMEN'S Branch 1 ORAL) 2019-0 Yes Take by Univer s 123/iron/fo 4-27 mouth ity of lic/omeg3s 23:40: daily. [place] (ONE-A-DAY 14 Medical WOMEN'S Branch 1 ORAL) 2019-0 Yes Take by Univer s 123/iron/fo 4-27 mouth ity of lic/omeg3s 23:40: daily. [place] (ONE-A-DAY 14 Medical WOMEN'S Branch 1 ORAL) 2019-0 Yes Take by Univer s 123/iron/fo 4-27 mouth ity of lic/omeg3s 23:40: daily. [place] (ONE-A-DAY 14 Medical WOMEN'S Branch 1 ORAL) 2019-0 Yes Take by Univer s 123/iron/fo 4-27 mouth ity of lic/omeg3s 23:40: daily. [place] (ONE-A-DAY 14 Medical WOMEN'S Branch 1 ORAL) albuterol 2019-0 Yes [id number] 2{puff} Inhale 2 Univers 90 4-03 Puffs ity of mcg/actuati 00:00: every 6 [place] on inhaler 00 (six) Medical hours as Branch needed for Wheezing or Shortness of Breath. albuterol 2019-0 Yes [id number] 2{puff} Inhale 2 Univers 90 4-03 Puffs ity of mcg/actuati 00:00: every 6 [place] on inhaler 00 (six) Medical hours as Branch needed for Wheezing or Shortness of Breath. albuterol 2020-0 Yes [id number] 2{puff} Inhale 2 Univers 90 4-03 Puffs ity of mcg/actuati 00:00: every 6 [place] on inhaler 00 (six) Medical hours as Branch needed for Wheezing or Shortness of Breath. albuterol 2019-0 Yes [id number] 2{puff} Inhale 2 Univers 90 4-03 Puffs ity of mcg/actuati 00:00: every 6 [place] on inhaler 00 (six) Medical hours as Branch needed for Wheezing or Shortness of Breath. albuterol 2020-0 Yes [id number] 2{puff} Inhale 2 Univers 90 4-03 Puffs ity of mcg/actuati 00:00: every 6 [place] on inhaler 00 (six) Medical hours as Branch needed for Wheezing or Shortness of Breath. albuterol 2020-0 Yes [id number] 2{puff} Inhale 2 Univers 90 4-03 Puffs ity of mcg/actuati 00:00: every 6 [place] on inhaler 00 (six) Medical hours as Branch needed for Wheezing or Shortness of Breath. albuterol 2020-0 Yes [id number] 2{puff} Inhale 2 Univers 90 4-03 Puffs ity of mcg/actuati 00:00: every 6 [place] on inhaler 00 (six) Medical hours as Branch needed for Wheezing or Shortness of Breath. albuterol 2020-0 Yes [id number] 2{puff} Inhale 2 Univers 90 4-03 Puffs ity of mcg/actuati 00:00: every 6 [place] on inhaler 00 (six) Medical hours as Branch needed for Wheezing or Shortness of Breath. albuterol 2020-0 Yes [id number] 2{puff} Inhale 2 Univers 90 4-03 Puffs ity of mcg/actuati 00:00: every 6 [place] on inhaler 00 (six) Medical hours as Branch needed for Wheezing or Shortness of Breath. albuterol 2020-0 Yes [id number] 2{puff} Inhale 2 Univers 90 4-03 Puffs ity of mcg/actuati 00:00: every 6 [place] on inhaler 00 (six) Medical hours as Branch needed for Wheezing or Shortness of Breath. albuterol 2020-0 Yes [id number] 2{puff} Inhale 2 Univers 90 4-03 Puffs ity of mcg/actuati 00:00: every 6 [place] on inhaler 00 (six) Medical hours as Branch needed for Wheezing or Shortness of Breath. albuterol 2020-0 Yes [id number] 2{puff} Inhale 2 Univers 90 4-03 Puffs ity of mcg/actuati 00:00: every 6 [place] on inhaler 00 (six) Medical hours as Branch needed for Wheezing or Shortness of Breath. albuterol 2020-0 Yes [id number] 2{puff} Inhale 2 Univers 90 4-03 Puffs ity of mcg/actuati 00:00: every 6 [place] on inhaler 00 (six) Medical hours as Branch needed for Wheezing or Shortness of Breath. albuterol 2020-0 Yes [id number] 2{puff} Inhale 2 Univers 90 4-03 Puffs ity of mcg/actuati 00:00: every 6 [place] on inhaler 00 (six) Medical hours as Branch needed for Wheezing or Shortness of Breath. albuterol 2019-0 Yes [id number] 2{puff} Inhale 2 Univers 90 4-03 Puffs ity of mcg/actuati 00:00: every 6 [place] on inhaler 00 (six) Medical hours as Branch needed for Wheezing or Shortness of Breath. albuterol 2019-0 Yes [id number] 2{puff} Inhale 2 [facility] 90 4-03 Puffs ity of mcg/actuati 00:00: every 6 [place] on inhaler 00 (six) Medical hours as Branch needed for Wheezing or Shortness of Breath. albuterol 2019-0 Yes [id number] 2{puff} Inhale 2 [facility] 90 4-03 Puffs ity of mcg/actuati 00:00: every 6 [place] on inhaler 00 (six) Medical hours as Branch needed for Wheezing or Shortness of Breath. albuterol 2019-0 Yes [id number] 2{puff} Inhale 2 [facility] 90 4-03 Puffs ity of mcg/actuati 00:00: every 6 [place] on inhaler 00 (six) Medical hours as Branch needed for Wheezing or Shortness of Breath. albuterol 2019-0 Yes [id number] 2{puff} Inhale 2 [facility] 90 4-03 Puffs ity of mcg/actuati 00:00: every 6 [place] on inhaler 00 (six) Medical hours as Branch needed for Wheezing or Shortness of Breath. albuterol 0 2020- No [id number] 2{puff} Inhale 2 [facility] 90 4-03 05-26 Puffs ity of mcg/actuati 00:00: 00:00 every 6 [place] on inhaler 00 :00 (six) Medical hours as Branch needed for Wheezing or Shortness of Breath. 2020-0 Yes Take by Univer s 123/iron/fo 3-19 mouth ity of lic/omeg3s 20:29: daily. [place] (ONE-A-DAY 34 Medical WOMEN'S Branch 1 ORAL) 2020-0 Yes Take by Univer s 123/iron/fo 3-19 mouth ity of lic/omeg3s 20:29: daily. [place] (ONE-A-DAY 34 Medical WOMEN'S Branch 1 ORAL) 2020-0 Yes Take by Univer s 123/iron/fo 3-19 mouth ity of lic/omeg3s 20:29: daily. [place] (ONE-A-DAY 34 Medical WOMEN'S Branch 1 ORAL) 2020-0 Yes Take by Univer s 123/iron/fo 3-19 mouth ity of lic/omeg3s 20:29: daily. [place] (ONE-A-DAY 34 Medical WOMEN'S Branch 1 ORAL) 2020-0 Yes Take by Univer s 123/iron/fo 3-19 mouth ity of lic/omeg3s 20:29: daily. [place] (ONE-A-DAY 34 Medical WOMEN'S Branch 1 ORAL) 2020-0 Yes Take by Univer s 123/iron/fo 3-19 mouth ity of lic/omeg3s 20:29: daily. [place] (ONE-A-DAY 34 Medical WOMEN'S Branch 1 ORAL) 2020-0 Yes Take by Univer s 123/iron/fo 3-19 mouth ity of lic/omeg3s 20:29: daily. [place] (ONE-A-DAY 34 Medical WOMEN'S Branch 1 ORAL) 2020-0 Yes Take by Univer s 123/iron/fo 3-19 mouth ity of lic/omeg3s 20:29: daily. [place] (ONE-A-DAY 34 Medical WOMEN'S Branch 1 ORAL) 2020-0 Yes Take by Univer s 123/iron/fo 3-19 mouth ity of lic/omeg3s 20:29: daily. [place] (ONE-A-DAY 34 Medical WOMEN'S Branch 1 ORAL) 2020-0 Yes Take by Univer s 123/iron/fo 3-19 mouth ity of lic/omeg3s 20:29: daily. [place] (ONE-A-DAY 34 Medical WOMEN'S Branch 1 ORAL) 2020-0 Yes Take by Univer s 123/iron/fo 3-19 mouth ity of lic/omeg3s 20:29: daily. [place] (ONE-A-DAY 34 Medical WOMEN'S Branch 1 ORAL) 2020-0 Yes Take by Univer s 123/iron/fo 3-19 mouth ity of lic/omeg3s 20:29: daily. [place] (ONE-A-DAY 34 Medical WOMEN'S Branch 1 ORAL) 2020-0 Yes Take by Univer s 123/iron/fo 3-19 mouth ity of lic/omeg3s 20:29: daily. [place] (ONE-A-DAY 34 Medical WOMEN'S Branch 1 ORAL) 2020-0 Yes Take by Univer s 123/iron/fo 3-19 mouth ity of lic/omeg3s 20:29: daily. [place] (ONE-A-DAY 34 Medical WOMEN'S Branch 1 ORAL) 2020-0 Yes Take by Univer s 123/iron/fo 3-19 mouth ity of lic/omeg3s 20:29: daily. [place] (ONE-A-DAY 34 Medical WOMEN'S Branch 1 ORAL) 2020-0 Yes Take by Univer s 123/iron/fo 3-19 mouth ity of lic/omeg3s 20:29: daily. [place] (ONE-A-DAY 34 Medical WOMEN'S Branch 1 ORAL) 2020-0 Yes Take by Univer s 123/iron/fo 3-19 mouth ity of lic/omeg3s 20:29: daily. [place] (ONE-A-DAY 34 Medical WOMEN'S Branch 1 ORAL) 2020-0 Yes Take by Univer s 123/iron/fo 3-19 mouth ity of lic/omeg3s 20:29: daily. [place] (ONE-A-DAY 34 Medical WOMEN'S Branch 1 ORAL) 2020-0 Yes Take by Univer s 123/iron/fo 3-19 mouth ity of lic/omeg3s 20:29: daily. [place] (ONE-A-DAY 34 Medical WOMEN'S Branch 1 ORAL) 2020-0 Yes Take by Univer s 123/iron/fo 3-19 mouth ity of lic/omeg3s 20:29: daily. [place] (ONE-A-DAY 34 Medical WOMEN'S [place] 1 ORAL) 2020-0 Yes Take by Univer s 123/iron/fo 3-15 mouth ity of lic/omeg3s 14:04: daily. [place] [facility] [place] [facility] 2020-0 Yes Take by Univer s 123/iron/fo 3-15 mouth ity of lic/omeg3s 14:04: daily. [place] (ONE-A-DAY 54 [facility] 1 ORAL) 2020-0 Yes Take by Univer s 123/iron/fo 3-15 mouth ity of lic/omeg3s 14:04: daily. [place] (ONE-A-DAY 54 [facility] 1 ORAL) 2020-0 Yes Take by Univer s 123/iron/fo 3-15 mouth ity of lic/omeg3s 14:04: daily. [place] (ONE-A-DAY 54 [facility] 1 ORAL) 2020-0 Yes Take by Univer s 123/iron/fo 3-04 mouth ity of lic/omeg3s 22:30: daily. [place] (ONE-A-DAY 16 [facility] 1 ORAL) 2020-0 Yes Take by Univer s 123/iron/fo 3-04 mouth ity of lic/omeg3s 22:30: daily. [place] (ONE-A-DAY 16 [facility] 1 ORAL) 2020-0 Yes Take by Univer s 123/iron/fo 3-04 mouth ity of lic/omeg3s 22:30: daily. [place] ([facility]DAY [facility] [place] [facility] 2020-0 Yes Take by Univer s 123/iron/fo 3-04 mouth ity of lic/omeg3s 22:30: daily. [place] ([facility]DAY [facility] [place] [facility] 2020-0 Yes 1{tbl} 1 tablet, Un [place] vitamin 3-04 Oral, ity of w/FA 15:00: DAILY, [place] (PRENATABS 00 First dose Med ical RX) tablet on Thu Branch 1 tablet 01/18/20 at 0900, Until Discontinu ed, Routine ondansetron 2020-0 2020- No 4mg 4 mg, Slow Univers (ZOFRAN 3-04 03-04 IV Push, ity of (PF)) 06:30: 06:37 ONCE, 1 [place] injection 4 00 :00 dose, Wed Med [...] 2 g/hr (25 U nivers sulfate in 01-17 03-04 mL/hr), at it y of LR 40 06:15: 16:18 25 mL/hr, [place] gram/500 mL 00 :25 IV Medical IV Solution Infusion, [facility] CONTINUOUS , Starting Thu01/18/20 at 0015, Until [...] First dose [place] mg 00 on Thu Medical 01/17/20 at Branch 2330, Until Discontinu ed, Routine
Reason for Anti-Infec tive: Documented Infection< br>Documen trish Infection Site: Pelvic
Duration of Therapy: 7 days alum-mag 2020-0 Yes 30mL 30 mL, Univers hydroxide-s 3-04 Oral, ity of imeth 05:20: Q6HPRN, [place] (MAALOX 16 Starting Medical PLUS / e 01/17/20 Branch MAG-AL at 2320, PLUS) Until 200-200-20 Discontinu mg/5 mL ed, suspension Routine, 30 mL Indigestio n docusate 2020-0 Yes 240mg 240 mg, Unive rs calcium 3-04 Oral, ity of (SURFAK) 05:20: QHSPRN, [place] capsule 240 16 Starting Medi kailash mg Tu01/17/20 Branch at 2320, Until Discontinu ed, Routine, [place] on magnesium 2020-0 Yes 30mL 30 mL, Univer s hydroxide 3-04 Oral, ity of (MILK OF 05:20: QDAILYPRN, [place] as MAGNESIA) 15 Starting Medica l 400 mg/5 mL Thu01/17/20 Br anch suspension at 2320, 30 mL Until Discontinu ed, Routine, Constipati on lactated 2020-0 2020- No 1000mL at 999 Univ ers ringers IV 3-04 03-04 mL/hr, ity of infusion 02:45: 02:30 1,000 mL, [place] 1,000 mL 00 :00 Intravenou Medic al s, ONCE, 1 Branch dose, Thu01/17/20 at 2045, Routine metroNIDAZO 2020-0 2020- No [id number] 500mg Take 1 [facility] LE 500 mg 3-04 03-11 tablet by ity of tablet 00:00: 04:59 mouth 2 [place] 00 :00 (two) Medical times Branch daily for 6 days. metroNIDAZO 2020-0 2020- No [id number] 500mg Take 1 [facility] LE 500 mg 3-04 03-11 tablet by ity of tablet 00:00: 04:59 mouth 2 [place] 00 :00 (two) Medical times Branch daily for 6 days. metroNIDAZO 2020-0 2020- No [id number] 500mg Take 1 [facility] LE 500 mg 3- 03-11 tablet by ity of tablet 00:00: 04:59 mouth 2 [place] 00 :00 (two) Medical times Branch daily for 6 days. ampicillin 2020-0 Yes 2g 2,000 mg Uni vers (POLYCILLIN 3-03 (2 g), IV ity of -N) 2,000 22:45: Piggyback, [place] mg in NaCl 00 Q6H ABX, Medic al 0.9% (NS) First dose Bran ch 100 mL on Thu MINI-BAG 01/17/20 at 1645, Until Discontinu ed, 100 mL
R cheryl for Anti-Infec tive: Empiric Non-Surgic al Prophylaxi s
Durat ion of therapy: 72 hours
S pecific indication : Abx latency betamethaso 2019- No 12mg 12 mg, Uni vers ne acet,sod 01-16-04 Intramuscu i ty of phos 22:45: 21:52 lar, Q24H, [place] (CELESTONE 00 :00 2 doses, Medic al SOLUSPAN) 6 First dose Br anch mg/mL on Tue injection 01/17/20 at 12 mg 1645, Last dose on 01/18/20 at 1645, Routine azithromyci 2019- No 1000mg 1,000 mg, Univers n 01-16 03-03 Oral, ity of (ZITHROMAX) 22:45: 22:30 ONCE, 1 [place] tablet 00 :00 dose, Tue Medical 1,000 mg 01/17/20 at Branch 1645, CHERYL
Re ason for Anti-Infec tive: Empiric Non-Surgic al Prophylaxi s
Durat ion of therapy: 72 hours
S pecific indication : suspected PPROM, abx for latency D5W-LR IV 0 Yes 1000mL at 125 [facility] ers infusion 3-03 mL/hr, IV ity of 1,000 mL 20:10: [place] CONTINUOUS Medical , Starting Branch 01/17/20 at 1415, Until Discontinu ed, Routine lactated 2019- No 1000mL at 999 Univ ers ringers IV 01-16-03 mL/hr, ity of infusion 20:10: 20:36 1,000 mL, [place] 1,000 mL 00 :00 IV Medical Infusion, Branch ONCE, 1 dose, [facility] 01/17/20 at 1415, CHERYL 2020-0 Yes Take by [employer] 123/iron/fo 3-03 mouth ity of lic/omeg3s 17:50: daily. [place] (ONE-A-DAY 04 Medical WOMEN'S Branch 1 ORAL) 2019-0 Yes Take by [employer] s 123/iron/fo 2-25 mouth ity of lic/omeg3s 03:17: daily. [place] (ONE-A-DAY 24 Medical WOMEN'S [place] 1 ORAL) 2019-0 Yes Take by Univer s 123/iron/fo 2-25 mouth ity of lic/omeg3s 03:17: daily. [place] (ONE-A-DAY 24 Medical WOMEN'S Branch 1 ORAL) D5W-LR IV 2019-0 Yes 1000mL at 125 Univ ers infusion 2-25 mL/hr, IV ity of 1,000 mL 00:15: [place]fusion, [place] CONTINUOUS Medical , Starting Branch 01/09/20 at 1815, Until Discontinu ed, Routine lactated 2019-0 2020- No 1000mL at 999 Univ ers ringers IV -10 01-24 mL/hr, ity of infusion 00:15: 23:20 1,000 mL, [place] 1,000 mL 00 :00 IV Medical Infusion, Branch ONCE, 1 dose, 01/09/20 at 1815, Routine metoclopram 2019-0 2020- No 10mg 10 mg, Uni vers ayden HCl 01-09-25 Slow IV ity of (REGLAN) 23:10: 00:23 Push, [place] injection 00 :00 ONCE, 1 Medical 10 mg dose, Mon Branch 01/09/20 at 1715, Routine albuterol 2019-0 Yes [id number] 2{puff} Inhale 2 [facility] 90 1-02 Puffs ity of mcg/actuati 00:00: every 6 [place] on inhaler 00 (six) Medical hours as Branch needed for Wheezing or Shortness of Breath. albuterol 2020-0 Yes [id number] 2{puff} Inhale 2 [facility] 90 1-02 Puffs ity of mcg/actuati 00:00: every 6 [place] on inhaler 00 (six) Medical hours as Branch needed for Wheezing or Shortness of Breath. albuterol 2020-0 Yes [id number] 2{puff} Inhale 2 [facility] 90 1-02 Puffs ity of mcg/actuati 00:00: every 6 [place] on inhaler 00 (six) Medical hours as Branch needed for Wheezing or Shortness of Breath. albuterol 2020-0 Yes [id number] 2{puff} Inhale 2 [facility] 90 1-02 Puffs ity of mcg/actuati 00:00: every 6 [place] on inhaler 00 (six) Medical hours as Branch needed for Wheezing or Shortness of Breath. albuterol 2020-0 Yes [id number] 2{puff} Inhale 2 [facility] 90 1-02 Puffs ity of mcg/actuati 00:00: every 6 [place] on inhaler 00 (six) Medical hours as Branch needed for Wheezing or Shortness of Breath. albuterol 2020-0 Yes [id number] 2{puff} Inhale 2 [facility] 90 1-02 Puffs ity of mcg/actuati 00:00: every 6 [place] on inhaler 00 (six) Medical hours as Branch needed for Wheezing or Shortness of Breath. albuterol 2020-0 Yes [id number] 2{puff} Inhale 2 [facility] 90 1-02 Puffs ity of mcg/actuati 00:00: every 6 [place] on inhaler 00 (six) Medical hours as Branch needed for Wheezing or Shortness of Breath. albuterol 2020-0 Yes [id number] 2{puff} Inhale 2 [facility] 90 1-02 Puffs ity of mcg/actuati 00:00: every 6 [place] on inhaler 00 (six) Medical hours as Branch needed for Wheezing or Shortness of Breath. albuterol 2020-0 Yes [id number] 2{puff} Inhale 2 [facility] 90 1-02 Puffs ity of mcg/actuati 00:00: every 6 [place] on inhaler 00 (six) Medical hours as Branch needed for Wheezing or Shortness of Breath. albuterol 2020-0 Yes [id number] 2{puff} Inhale 2 [facility] 90 1-02 Puffs ity of mcg/actuati 00:00: every 6 [place] on inhaler 00 (six) Medical hours as Branch needed for Wheezing or Shortness of Breath. albuterol 2020-0 Yes [id number] 2{puff} Inhale 2 [facility] 90 1-02 Puffs ity of mcg/actuati 00:00: every 6 [place] on inhaler 00 (six) Medical hours as Branch needed for Wheezing or Shortness of Breath. albuterol 2020-0 Yes [id number] 2{puff} Inhale 2 [facility] 90 1-02 Puffs ity of mcg/actuati 00:00: every 6 [place] on inhaler 00 (six) Medical hours as Branch needed for Wheezing or Shortness of Breath. albuterol 2020-0 Yes [id number] 2{puff} Inhale 2 [facility] 90 1-02 Puffs ity of mcg/actuati 00:00: every 6 [place] on inhaler 00 (six) Medical hours as Branch needed for Wheezing or Shortness of Breath. albuterol 2020-0 Yes [id number] 2{puff} Inhale 2 [facility] 90 1-02 Puffs ity of mcg/actuati 00:00: every 6 [place] on inhaler 00 (six) Medical hours as Branch needed for Wheezing or Shortness of Breath. albuterol 2020-0 Yes [id number] 2{puff} Inhale 2 [facility] 90 1-02 Puffs ity of mcg/actuati 00:00: every 6 [place] on inhaler 00 (six) Medical hours as Branch needed for Wheezing or Shortness of Breath. albuterol 2020-0 Yes [id number] 2{puff} Inhale 2 [facility] 90 1-02 Puffs ity of mcg/actuati 00:00: every 6 [place] on inhaler 00 (six) Medical hours as Branch needed for Wheezing or Shortness of Breath. albuterol 2020-0 Yes [id number] 2{puff} Inhale 2 [facility] 90 1-02 Puffs ity of mcg/actuati 00:00: every 6 [place] on inhaler 00 (six) Medical hours as Branch needed for Wheezing or Shortness of Breath. albuterol 2020-0 Yes [id number] 2{puff} Inhale 2 [facility] 90 1-02 Puffs ity of mcg/actuati 00:00: every 6 [place] on inhaler 00 (six) Medical hours as Branch needed for Wheezing or Shortness of Breath. albuterol 2020-0 Yes [id number] 2{puff} Inhale 2 [facility] 90 1-02 Puffs ity of mcg/actuati 00:00: every 6 [place] on inhaler 00 (six) Medical hours as Branch needed for Wheezing or Shortness of Breath. albuterol 2020-0 Yes [id number] 2{puff} Inhale 2 [facility] 90 1-02 Puffs ity of mcg/actuati 00:00: every 6 [place] on inhaler 00 (six) Medical hours as Branch needed for Wheezing or Shortness of Breath. albuterol 2020-0 Yes [id number] 2{puff} Inhale 2 [facility] 90 1-02 Puffs ity of mcg/actuati 00:00: every 6 [place] on inhaler 00 (six) Medical hours as Branch needed for Wheezing or Shortness of Breath. albuterol 2020-0 Yes [id number] 2{puff} Inhale 2 [facility] 90 1-02 Puffs ity of mcg/actuati 00:00: every 6 [place] on inhaler 00 (six) Medical hours as Branch needed for Wheezing or Shortness of Breath. albuterol 2019-0 Yes [id number] 2{puff} Inhale 2 [facility] 90 1-02 Puffs ity of mcg/actuati 00:00: every 6 [place] on inhaler 00 (six) Medical hours as Branch needed for Wheezing or Shortness of Breath. albuterol 2019-0 Yes [id number] 2{puff} Inhale 2 [facility] 90 1-02 Puffs ity of mcg/actuati 00:00: every 6 [place] on inhaler 00 (six) Medical hours as Branch needed for Wheezing or Shortness of Breath. albuterol 2019-0 Yes [id number] 2{puff} Inhale 2 [facility] 90 1-02 Puffs ity of mcg/actuati 00:00: every 6 [place] on inhaler 00 (six) Medical hours as Branch needed for Wheezing or Shortness of Breath. albuterol 2019-0 Yes [id number] 2{puff} Inhale 2 [facility] 90 1-02 Puffs ity of mcg/actuati 00:00: every 6 [place] on inhaler 00 (six) Medical hours as Branch needed for Wheezing or Shortness of Breath. albuterol 2019-0 Yes [id number] 2{puff} Inhale 2 [facility] 90 1-02 Puffs ity of mcg/actuati 00:00: every 6 [place] on inhaler 00 (six) Medical hours as Branch needed for Wheezing or Shortness of Breath. albuterol 2020-0 Yes [id number] 2{puff} Inhale 2 [facility] 90 1-02 Puffs ity of mcg/actuati 00:00: every 6 [place] on inhaler 00 (six) Medical hours as Branch needed for Wheezing or Shortness of Breath. albuterol 2020-0 Yes [id number] 2{puff} Inhale 2 [facility] 90 1-02 Puffs ity of mcg/actuati 00:00: every 6 [place] on inhaler 00 (six) Medical hours as Branch needed for Wheezing or Shortness of Breath. albuterol 2019-0 Yes [id number] 2{puff} Inhale 2 [facility] 90 1-02 Puffs ity of mcg/actuati 00:00: every 6 [place] on inhaler 00 (six) Medical hours as Branch needed for Wheezing or Shortness of Breath. albuterol 2020-0 Yes [id number] 2{puff} Inhale 2 [facility] 90 1-02 Puffs ity of mcg/actuati 00:00: every 6 [place] on inhaler 00 (six) Medical hours as Branch needed for Wheezing or Shortness of Breath. albuterol 2020-0 Yes [id number] 2{puff} Inhale 2 [facility] 90 1-02 Puffs ity of mcg/actuati 00:00: every 6 [place] on inhaler 00 (six) Medical hours as Branch needed for Wheezing or Shortness of Breath. albuterol 2020-0 Yes [id number] 2{puff} Inhale 2 [facility] 90 1-02 Puffs ity of mcg/actuati 00:00: every 6 [place] on inhaler 00 (six) Medical hours as Branch needed for Wheezing or Shortness of Breath. albuterol 2020-0 Yes [id number] 2{puff} Inhale 2 [facility] 90 1-02 Puffs ity of mcg/actuati 00:00: every 6 [place] on inhaler 00 (six) Medical hours as Branch needed for Wheezing or Shortness of Breath. albuterol 2020-0 Yes [id number] 2{puff} Inhale 2 [facility] 90 1-02 Puffs ity of mcg/actuati 00:00: every 6 [place] on inhaler 00 (six) Medical hours as Branch needed for Wheezing or Shortness of Breath. albuterol 2020-0 Yes [id number] 2{puff} Inhale 2 [facility] 90 1-02 Puffs ity of mcg/actuati 00:00: every 6 [place] on inhaler 00 (six) Medical hours as Branch needed for Wheezing or Shortness of Breath. albuterol 2020-0 Yes [id number] 2{puff} Inhale 2 [facility] 90 1-02 Puffs ity of mcg/actuati 00:00: every 6 [place] on inhaler 00 (six) Medical hours as Branch needed for Wheezing or Shortness of Breath. albuterol 2020-0 Yes [id number] 2{puff} Inhale 2 [facility] 90 1-02 Puffs ity of mcg/actuati 00:00: every 6 [place] on inhaler 00 (six) Medical hours as Branch needed for Wheezing or Shortness of Breath. albuterol 2020-0 Yes [id number] 2{puff} Inhale 2 [facility] 90 1-02 Puffs ity of mcg/actuati 00:00: every 6 [place] on inhaler 00 (six) Medical hours as Branch needed for Wheezing or Shortness of Breath. albuterol 2020-0 Yes [id number] 2{puff} Inhale 2 [facility] 90 1-02 Puffs ity of mcg/actuati 00:00: every 6 [place] on inhaler 00 (six) Medical hours as Branch needed for Wheezing or Shortness of Breath. albuterol 2020-0 Yes [id number] 2{puff} Inhale 2 [facility] 90 1-02 Puffs ity of mcg/actuati 00:00: every 6 [place] on inhaler 00 (six) Medical hours as Branch needed for Wheezing or Shortness of Breath. albuterol 2020-0 Yes [id number] 2{puff} Inhale 2 [facility] 90 1-02 Puffs ity of mcg/actuati 00:00: every 6 [place] on inhaler 00 (six) Medical hours as Branch needed for Wheezing or Shortness of Breath. albuterol 2020-0 Yes [id number] 2{puff} Inhale 2 [facility] 90 1-02 Puffs ity of mcg/actuati 00:00: every 6 [place] on inhaler 00 (six) Medical hours as Branch needed for Wheezing or Shortness of Breath. albuterol 2020-0 Yes [id number] 2{puff} Inhale 2 [facility] 90 1-02 Puffs ity of mcg/actuati 00:00: every 6 [place] on inhaler 00 (six) Medical hours as Branch needed for Wheezing or Shortness of Breath. albuterol 2020-0 Yes [id number] 2{puff} Inhale 2 [facility] 90 1-02 Puffs ity of mcg/actuati 00:00: every 6 [place] on inhaler 00 (six) Medical hours as Branch needed for Wheezing or Shortness of Breath. albuterol 2020-0 Yes [id number] 2{puff} Inhale 2 [facility] 90 1-02 Puffs ity of mcg/actuati 00:00: every 6 [place] on inhaler 00 (six) Medical hours as Branch needed for Wheezing or Shortness of Breath. albuterol 2020-0 Yes [id number] 2{puff} Inhale 2 [facility] 90 1-02 Puffs ity of mcg/actuati 00:00: every 6 [place] on inhaler 00 (six) Medical hours as Branch needed for Wheezing or Shortness of Breath. albuterol 2020-0 Yes [id number] 2{puff} Inhale 2 [facility] 90 1-02 Puffs ity of mcg/actuati 00:00: every 6 [place] on inhaler 00 (six) Medical hours as Branch needed for Wheezing or Shortness of Breath. albuterol 2020-0 Yes [id number] 2{puff} Inhale 2 [facility] 90 1-02 Puffs ity of mcg/actuati 00:00: every 6 [place] on inhaler 00 (six) Medical hours as Branch needed for Wheezing or Shortness of Breath. albuterol 2020-0 Yes [id number] 2{puff} Inhale 2 [facility] 90 1-02 Puffs ity of mcg/actuati 00:00: every 6 [place] on inhaler 00 (six) Medical hours as Branch needed for Wheezing or Shortness of Breath. albuterol 2020-0 Yes [id number] 2{puff} Inhale 2 [facility] 90 1-02 Puffs ity of mcg/actuati 00:00: every 6 [place] on inhaler 00 (six) Medical hours as Branch needed for Wheezing or Shortness of Breath. albuterol 2020-0 Yes [id number] 2{puff} Inhale 2 Univers 90 1-02 Puffs ity of mcg/actuati 00:00: every 6 [place] on inhaler 00 (six) Medical hours as Branch needed for Wheezing or Shortness of Breath. albuterol 2020-0 Yes [id number] 2{puff} Inhale 2 [facility] 90 1-02 Puffs ity of mcg/actuati 00:00: every 6 [place] on inhaler 00 (six) Medical hours as Branch needed for Wheezing or Shortness of Breath. albuterol 2020-0 Yes [id number] 2{puff} Inhale 2 [facility] 90 1-02 Puffs ity of mcg/actuati 00:00: every 6 [place] on inhaler 00 (six) Medical hours as Branch needed for Wheezing or Shortness of Breath. albuterol 2020- No [id number] 2{puff} Inhale 2 [facility] 90 1-02 08-12 Puffs ity of mcg/actuati 00:00: 00:00 every 6 [place] on inhaler 00 :00 (six) Medical hours as Branch needed for Wheezing or Shortness of Breath. albuterol 2020- No [id number] 2{puff} Inhale 2 Univers 90 1-02 08-12 Puffs ity of mcg/actuati 00:00: 00:00 every 6 [place] on inhaler 00 :00 (six) Medical hours as Branch needed for Wheezing or Shortness of Breath. 2019- Yes Take by [facility] 123/iron/fo 9-16 mouth ity of lic/omeg3s 19:53: daily. [place] (ONE-A-DAY 00 Medical WOMEN'S Branch 1 ORAL) 2019 Yes Take by Un[facility] 123/iron/fo 9-16 mouth ity of lic/omeg3s 19:53: daily. [place] (ONE-A-DAY 00 Medical WOMEN'S [place] 1 ORAL) [id number] Yes Take by [facility] 123/iron/fo 9-16 mouth ity of lic/omeg3s 19:53: daily. [place] (ONE-A-DAY 00 Medical WOMEN'S [place] 1 ORAL) 2019 Yes Take by Un[facility] s 123/iron/fo 9-16 mouth ity of lic/omeg3s 19:53: daily. [place] (ONE-A-DAY 00 Medical WOMEN'S Branch 1 ORAL) 2019-0 Yes Take by Un[facility] s 123/iron/fo 9-16 mouth ity of lic/omeg3s 19:53: daily. [place] (ONE-A-DAY 00 Medical WOMEN'S [place] 1 ORAL) 2019-0 Yes Take by Univer s 123/iron/fo 9-16 mouth ity of lic/omeg3s 19:53: daily. [place] (ONE-A-DAY 00 Medical WOMEN'S Branch 1 ORAL) norgestimat 2019-0 Yes [id number] 1{tbl} Take 1 Univers e-ethinyl 1-17 tablet by ity o f estradiol 00:00: mouth [place] 0.25-35 00 daily. Medical mg-mcg per Branch tablet norgestimat Yes [id number] 1{tbl} Take 1 Univers e-ethinyl 1-17 tablet by ity o f estradiol 00:00: mouth [place] 0.25-35 00 daily. Medical mg-mcg per Branch tablet ALBUTEROL Yes Inhale. Unive rs INHALE 9-12 ity of 21:36: [address] ALBUTEROL Yes Inhale. Unive rs INHALE 9-12 ity of 21:36: [address] albuterol Yes 2{puff} Inhale 2 U [...] Base) Base) (90 Base) MCG/ACT MCG/ACT MCG/ACT methylPREDN methylPREDN No QD methylPRED ISolone 4 ISolone 4 NISolone 4 MG MG MG No Montelukast Montelukast No QD Montelukas Sodium 10 Sodium 10 t Sodium MG MG 10 MG Albuterol Albuterol No 1{puff_ 6xD Albuterol Sulfate HFA Sulfate HFA as_need Sulfate 108 (90 108 (90 ed} HFA 108 Base) Base) (90 Base) MCG/ACT MCG/ACT MCG/ACT methylPREDN methylPREDN No QD methylPRED ISolone 4 ISolone 4 NISolone 4 MG MG MG No Montelukast Montelukast No QD Montelukas Sodium 10 [...] t Sodium MG MG 10 MG No Albuterol Albuterol No 1{puff_ 6xD Albuterol Sulfate HFA Sulfate HFA as_need Sulfate 108 (90 108 (90 ed} HFA 108 Base) Base) (90 Base) MCG/ACT MCG/ACT MCG/ACT methylPREDN methylPREDN No QD methylPRED ISolone 4 ISolone 4 NISolone 4 MG MG MG Montelukast Montelukast No 1{table QD Montelukas Sodium 10 Sodium 10 t} t Sodium MG MG 10 MG busPIRone busPIRone No 1{table BID busPIRone HCl 10 MG HCl 10 MG t} HCl 10 MG methIMAzole methIMAzole No 1{table methIMAzol 10 MG 10 MG t} e 10 MG Zoloft 100 Zoloft 100 No 1{table QD Zoloft 100 MG MG t} MG Propranolol Propranolol No 1{table QD Propranolo HCl 10 MG HCl 10 MG t} l HCl 10 MG Montelukast Montelukast No 1{table QD Montelukas Sodium 10 Sodium 10 t} t Sodium MG MG 10 MG busPIRone busPIRone No 1{table BID busPIRone HCl 10 MG HCl 10 MG t} HCl 10 MG methIMAzole methIMAzole No 1{table methIMAzol 10 MG 10 MG t} e 10 MG Zoloft 100 Zoloft 100 No 1{table QD Zoloft 100 MG MG t} MG Propranolol Propranolol No 1{table QD Propranolo HCl 10 MG HCl 10 MG t} l HCl 10 MG Montelukast Montelukast No 1{table QD Montelukas Sodium 10 Sodium 10 t} t Sodium MG MG 10 MG busPIRone busPIRone No 1{table BID busPIRone HCl 10 MG HCl 10 MG t} HCl 10 MG methIMAzole methIMAzole No 1{table methIMAzol 10 MG 10 MG t} e 10 MG Zoloft 100 Zoloft 100 No 1{table QD Zoloft 100 MG MG t} MG Propranolol Propranolol No 1{table QD Propranolo HCl 10 MG HCl 10 MG t} l HCl 10 MG Montelukast Montelukast No 1{table QD Montelukas Sodium 10 Sodium 10 t} t Sodium MG MG 10 MG busPIRone busPIRone No 1{table BID busPIRone HCl 10 MG HCl 10 MG t} HCl 10 MG methIMAzole methIMAzole No 1{table methIMAzol 10 MG 10 MG t} e 10 MG Zoloft 100 Zoloft 100 No 1{table QD Zoloft 100 MG MG t} MG Propranolol Propranolol No 1{table QD Propranolo HCl 10 MG HCl 10 MG t} l HCl 10 MG Montelukast Montelukast No 1{table QD Montelukas Sodium 10 Sodium 10 t} t Sodium MG MG 10 MG Phentermine Phentermine No 1{capsu QD Phentermin HCl 30 MG HCl 30 MG le} e HCl 30 MG Immunizations Ordered Filled Date Status Comments Source Immunization Name Immunization Name Moderna COVID-19 Moderna COVID-19 2021-07-26 Completed [facility] 09:17:00 [facility] Moderna COVID-19 Moderna COVID-19 2021-07-26 Completed [facility] Vaccine 09:17:00 [facility] Moderna COVID-19 Moderna COVID-19 2021-07-26 Completed [facility] Vaccine 09:17:00 [facility] Moderna COVID-19 Moderna COVID-19 2021-07-26 Completed [facility] Vaccine 09:17:00 [facility] Moderna COVID-19 Moderna COVID-19 2021-07-26 Completed [facility] Vacc[facility] Vaccine 09:17:00 [facility] Moderna COVID-19 Moderna COVID-19 2021-07-26 Completed [facility] Vaccine 09:17:00 [facility] Moderna COVID-19 Moderna COVID-19 2021-07-26 Completed [facility] Vaccine 09:17:00 [facility] Moderna COVID-19 Moderna COVID-19 2021-07-26 Completed [facility] Vacc[facility] Vaccine 09:17:00 [facility] Moderna COVID-19 Moderna COVID-19 2021-07-26 Completed [facility] Vacc[facility] Vaccine 09:17:00 [facility] Moderna COVID-19 Moderna COVID-19 2021-07-26 Completed [facility] Vacc[facility] Vaccine 09:17:00 [facility] Moderna COVID-19 Moderna COVID-19 2021-07-26 Completed [facility] Vacc[facility] Vaccine 09:17:00 [facility] Moderna COVID-19 Moderna COVID-19 2021-07-26 Completed [facility] Vacc[facility] Vaccine 09:17:00 [facility] Moderna COVID-19 Moderna COVID-19 2021-07-26 Completed [facility] Vacc[facility] Vaccine 09:17:00 [facility] Moderna COVID-19 Moderna COVID-19 2021-07-26 Completed [facility] Vacc[facility] Vaccine 09:17:00 [facility] Moderna COVID-19 Moderna COVID-19 2021-07-26 Completed [facility] Vaccine Vaccine 09:17:00 [facility] Moderna COVID-19 Moderna COVID-19 2021-07-26 Completed [facility] Vaccine Vaccine 09:17:00 [facility] Moderna COVID-19 Moderna COVID-19 2021-07-26 Completed [facility] Vacc[facility] Vaccine 09:17:00 [facility] Moderna COVID-19 Moderna COVID-19 2021-07-26 Completed [facility] Vacc[facility] Vaccine 09:17:00 [facility] Moderna COVID-19 Moderna COVID-19 2021-07-26 Completed [facility] Vaccine Vaccine 09:17:00 [facility] Moderna COVID-19 Moderna COVID-19 2021-07-26 Completed [facility] Vaccine Vaccine 09:17:00 [facility] Moderna COVID-19 Moderna COVID-19 2021-07-26 Completed [facility] Vaccine Vaccine 09:17:00 [facility] Moderna COVID-19 Moderna COVID-19 2021-07-26 Completed [facility] Vaccine Vaccine 09:17:00 [facility] Moderna COVID-19 Moderna COVID-19 2021-07-26 Completed [facility] Vaccine Vaccine 09:17:00 [facility] Moderna COVID-19 Moderna COVID-19 2021-07-26 Completed [facility] Vaccine Vaccine 09:17:00 [facility] Moderna COVID-19 Moderna COVID-19 2021-07-26 Completed [facility] Vaccine Vaccine 09:17:00 [facility] Moderna COVID-19 Moderna COVID-19 2021-07-26 Completed [facility] Vaccine Vaccine 09:17:00 [facility] Moderna COVID-19 Moderna COVID-19 2021-07-26 Completed [facility] Vaccine Vaccine 09:17:00 [facility] Moderna COVID-19 Moderna COVID-19 2021-07-26 Completed [facility] Vaccine Vaccine 09:17:00 [facility] Moderna COVID-19 Moderna COVID-19 2021-07-26 Completed [facility] Vaccine Vaccine 09:17:00 [facility] Moderna COVID-19 Moderna COVID-19 2021-07-26 Completed [facility] Vaccine Vaccine 09:17:00 [facility] Moderna COVID-19 Moderna COVID-19 2021-07-26 Completed [facility] Vaccine Vaccine 09:17:00 [facility] Moderna COVID-19 Moderna COVID-19 2021-07-26 Completed [facility] Vaccine Vaccine 09:17:00 [facility] Moderna COVID-19 Moderna COVID-19 2021-06-28 Completed [facility] Vaccine Vaccine 11:31:00 [facility] Moderna COVID-19 Moderna COVID-19 2021-06-28 Completed [facility] Vaccine Vaccine 11:31:00 [facility] Moderna COVID-19 Moderna COVID-19 2021-06-28 Completed [facility] Vaccine Vaccine 11:31:00 [facility] Moderna COVID-19 Moderna COVID-19 2021-06-28 Completed [facility] Vaccine Vaccine 11:31:00 [facility] Moderna COVID-19 Moderna COVID-19 2021-06-28 Completed [facility] Vaccine Vaccine 11:31:00 [facility] Moderna COVID-19 Moderna COVID-19 2021-06-28 Completed [facility] Vaccine Vaccine 11:31:00 [facility] Moderna COVID-19 Moderna COVID-19 2021-06-28 Completed [facility] Vaccine Vaccine 11:31:00 [facility] Moderna COVID-19 Moderna COVID-19 2021-06-28 Completed [facility] Vaccine Vaccine 11:31:00 [facility] Moderna COVID-19 Moderna COVID-19 2021-06-28 Completed [facility] Vaccine Vaccine 11:31:00 [facility] Moderna COVID-19 Moderna COVID-19 2021-06-28 Completed [facility] Vaccine Vaccine 11:31:00 [facility] Moderna COVID-19 Moderna COVID-19 2021-06-28 Completed [facility] Vaccine Vaccine 11:31:00 [facility] Moderna COVID-19 Moderna COVID-19 2021-06-28 Completed [facility] Vaccine Vaccine 11:31:00 [facility] Moderna COVID-19 Moderna COVID-19 2021-06-28 Completed [facility] Vaccine Vaccine 11:31:00 [facility] Moderna COVID-19 Moderna COVID-19 2021-06-28 Completed [facility] Vaccine Vaccine 11:31:00 [facility] Moderna COVID-19 Moderna COVID-19 2021-06-28 Completed [facility] Vaccine Vaccine 11:31:00 [facility] Moderna COVID-19 Moderna COVID-19 2021-06-28 Completed [facility] Vaccine Vaccine 11:31:00 [facility] Moderna COVID-19 Moderna COVID-19 2021-06-28 Completed [facility] Vaccine Vaccine 11:31:00 [facility] Moderna COVID-19 Moderna COVID-19 2021-06-28 Completed [facility] Vaccine Vaccine 11:31:00 [facility] Moderna COVID-19 Moderna COVID-19 2021-06-28 Completed [facility] Vaccine Vaccine 11:31:00 [facility] Moderna COVID-19 Moderna COVID-19 2021-06-28 Completed [facility] Vaccine Vaccine 11:31:00 [facility] Moderna COVID-19 Moderna COVID-19 2021-06-28 Completed [facility] Vaccine Vaccine 11:31:00 [facility] Moderna COVID-19 Moderna COVID-19 2021-06-28 Completed [facility] Vaccine Vaccine 11:31:00 [facility] Moderna COVID-19 Moderna COVID-19 2021-06-28 Completed [facility] Vaccine Vaccine 11:31:00 [facility] Moderna COVID-19 Moderna COVID-19 2021-06-28 Completed [facility] Vaccine Vaccine 11:31:00 [facility] Moderna COVID-19 Moderna COVID-19 2021-06-28 Completed [facility] Vaccine Vaccine 11:31:00 [facility] Moderna COVID-19 Moderna COVID-19 2021-06-28 Completed [facility] Vaccine Vaccine 11:31:00 [facility] Moderna COVID-19 Moderna COVID-19 2021-06-28 Completed [facility] Vaccine Vaccine 11:31:00 [facility] Moderna COVID-19 Moderna COVID-19 2021-06-28 Completed [facility] Vaccine Vaccine 11:31:00 [facility] Moderna COVID-19 Moderna COVID-19 2021-06-28 Completed [facility] Vaccine Vaccine 11:31:00 [facility] Moderna COVID-19 Moderna COVID-19 2021-06-28 Completed [facility] Vaccine Vaccine 11:31:00 [facility] Moderna COVID-19 Moderna COVID-19 2021-06-28 Completed [facility] Vaccine Vaccine 11:31:00 [facility] Moderna COVID-19 Moderna COVID-19 2021-06-28 Completed [facility] Vaccine Vaccine 11:31:00 [facility] Moderna COVID-19 Moderna COVID-19 2021-06-28 Completed [facility] Vaccine Vaccine 11:31:00 [facility] Siddhartha Kenalog 2020-09-18 Completed [facility] (Triamcinolone) (Triamcinolone) 14:39:00 [facility] Kenalog Kenalog 2020-09-18 Completed [facility] (Triamcinolone) (Triamcinolone) 14:39:00 [facility] Kenalog Kenalog 2020-09-18 Completed [facility] (Triamcinolone) (Triamcinolone) 14:39:00 [facility] Siddhartha Kenalog 2020-09-18 Completed [facility] (Triamcinolone) (Triamcinolone) 14:39:00 [facility] Siddhartha Kenalog 2020-09-18 Completed [facility] (Triamcinolone) (Triamcinolone) 14:39:00 [facility] Influenza Virus 2019-08-31 Completed [facility]5 [facility] 00:00:00 [facility] Influenza Virus 2019-08-31 Completed [facility] .5 mL 00:00:00 [facility] Influenza Virus 2019-08-31 Completed [facility] .5 mL 00:00:00 [facility] 6+ MO [facility] Influenza Virus 2019-08-31 Completed [facility] .5 mL 00:00:00 [facility] 6[facility] Influenza Virus 2019-08-31 Completed [facility] .5 mL 00:00:00 [facility] 6[facility] Influenza Virus 2019-08-31 Completed [facility] .5 mL 00:00:00 [facility] 6[facility] Influenza Virus 2019-08-31 Completed [facility] .5 mL 00:00:00 [facility] 6[facility] Influenza Virus 2019-08-31 Completed [facility] .5 mL 00:00:00 [facility] Influenza Virus 2019-08-31 Completed [facility] .5 mL 00:00:00 [facility] Influenza Virus [...] y of Vaccine [facility] .5 mL 00:00:00 [facility] HPV 2014-03-29 Completed [...] Branch HPV 2014-03-29 Completed [facility] 00:00:00 [facility] HPV 2014-03-29 Completed [facility] 00:00:00 [facility] HPV 2014-03-29 Completed [facility] 00:00:00 [facility] HPV 2014-03-29 Completed [facility] 00:00:00 [facility] HPV 2014-03-29 Completed [facility] 00[facility]00:00 [facility] HPV 2014-03-29 Completed [facility] 00:00:00 [facility] HPV 2014-03-29 Completed [facility] 00:00:00 [facility] HPV 2014-03-29 Completed [facility] 00:00:00 [facility] HPV 2014-03-29 Completed [facility] 00:00:00 [facility] HPV 2014-03-29 Completed [facility] 00:00:00 [facility] HPV 2014-03-29 Completed [facility] 00:00:00 [facility] HPV 2014-03-29 Completed [facility] 00:00:00 [facility] HPV 2014-03-29 Completed [facility] 00:00:00 [facility] HPV 2014-03-29 Completed [facility] 00:00:00 [facility] HPV 2014-03-29 Completed [facility] 00:00:00 [facility] HPV 2014-03-29 Completed [facility] 00:00:00 [facility] HPV 2014-03-29 Completed [facility] 00:00:00 [facility] Influenza Virus 2013-11-29 Completed [facility] Vaccine (3+ yrs) 00:00:00 [facility] HPV 2013-11-29 Completed [facility] 00:00:00 [facility] Influenza Virus 2013-11-29 Completed [facility] Vaccine (3+ yrs) 00:00:00 [facility] HPV 2013-11-29 Completed [facility] 00:00:00 [facility] Influenza Virus 2013-11-29 Completed [facility] Vaccine (3+ yrs) 00:00:00 [facility] HPV 2013-11-29 Completed [facility] 00:00:00 [facility] Influenza Virus 2013-11-29 Completed [facility] Vaccine (3+ yrs) 00:00:00 [facility] HPV 2013-11-29 Completed [facility] 00:00:00 [facility] Influenza Virus 2013-11-29 Completed [facility] Vaccine (3+ yrs) 00:00:00 [facility] Influenza Virus 2013-11-29 Completed [facility] Vaccine (3+ yrs) 00:00:00 [facility] HPV 2013-11-29 Completed [facility] 00:00:00 [facility] HPV 2013-11-29 Completed [facility] 00:00:00 [facility] Influenza Virus 2013-11-29 Completed [facility] Vaccine (3+ yrs) 00:00:00 [facility] HPV 2013-11-29 Completed [facility] 00:00:00 [facility] Influenza Virus 2013-11-29 Completed [facility] Vaccine (3+ yrs) 00:00:00 [facility] HPV 2013-11-29 Completed [facility] 00:00:00 [facility] Influenza Virus 2013-11-29 Completed [facility] Vaccine (3+ yrs) 00:00:00 [facility] HPV 2013-11-29 Completed [facility] 00:00:00 [facility] Influenza Virus 2013-11-29 Completed [facility] Vaccine (3+ yrs) 00:00:00 [facility] HPV 2013-11-29 Completed [facility] 00:00:00 [facility] Influenza Virus 2013-11-29 Completed [facility] Vaccine (3+ yrs) 00:00:00 [facility] HPV 2013-11-29 Completed [facility] 00:00:00 [facility] Influenza Virus 2013-11-29 Completed [facility] Vaccine (3+ yrs) 00:00:00 [facility] HPV 2013-11-29 Completed [facility] 00:00:00 [facility] Influenza Virus 2013-11-29 Completed [facility] Vaccine (3+ yrs) 00:00:00 [facility] HPV 2013-11-29 Completed [facility] 00:00:00 [facility] Influenza Virus 2013-11-29 Completed [facility] Vaccine (3+ yrs) 00:00:00 [facility] HPV 2013-11-29 Completed [facility] 00:00:00 [facility] Influenza Virus 2013-11-29 Completed [facility] Vaccine (3+ yrs) 00:00:00 [facility] HPV 2013-11-29 Completed [facility] 00:00:00 [facility] Influenza Virus 2013-11-29 Completed [facility] Vaccine (3+ yrs) 00:00:00 [facility] HPV 2013-11-29 Completed [facility] 00:00:00 [facility] Influenza Virus 2013-11-29 Completed [facility] Vaccine (3+ yrs) 00:00:00 [facility] HPV 2013-11-29 Completed [facility] 00:00:00 [facility] Influenza Virus 2013-11-29 Completed [facility] Vaccine (3+ yrs) 00:00:00 [facility] HPV 2013-11-29 Completed [facility] 00:00:00 [facility] Influenza Virus 2013-11-29 Completed [facility] Vaccine (3+ yrs) 00:00:00 [facility] HPV 2013-11-29 Completed [facility] 00:00:00 [facility] Influenza Virus 2013-11-29 Completed [facility] Vaccine (3+ yrs) 00:00:00 [facility] HPV 2013-11-29 Completed [facility] 00:00:00 [facility] Influenza Virus 2013-11-29 Completed [facility] Vaccine (3+ yrs) 00:00:00 [facility] HPV 2013-11-29 Completed [facility] 00:00:00 [facility] Influenza Virus 2013-11-29 Completed [facility] Vaccine (3+ yrs) 00:00:00 [facility] HPV 2013-11-29 Completed [facility] 00:00:00 [facility] Influenza Virus 2013-11-29 Completed [facility] Vaccine (3+ yrs) 00:00:00 [facility] HPV 2013-11-29 Completed [facility] 00:00:00 [facility] Influenza Virus 2013-11-29 Completed [facility] Vaccine (3+ yrs) 00:00:00 [facility] HPV 2013-11-29 Completed [facility] 00:00:00 [facility] Influenza Virus 2013-11-29 Completed [facility] Vaccine (3+ yrs) 00:00:00 [facility] HPV 2013-11-29 Completed [facility] 00:00:00 [facility] Influenza Virus 2013-11-29 Completed [facility] Vaccine (3+ yrs) 00:00:00 [facility] HPV 2013-11-29 Completed [facility] 00:00:00 [facility] Influenza Virus 2013-11-29 Completed [facility] Vaccine (3+ yrs) 00:00:00 [facility] HPV 2013-11-29 Completed [facility] 00:00:00 [facility] Influenza Virus 2013-11-29 Completed [facility] Vaccine (3+ yrs) 00:00:00 [facility] HPV 2013-11-29 Completed [facility] 00:00:00 [facility] Influenza Virus 2013-11-29 Completed [facility] Vaccine (3+ yrs) 00:00:00 [facility] HPV 2013-11-29 Completed [facility] 00:00:00 [facility] Influenza Virus 2013-11-29 Completed [facility] Vaccine (3+ yrs) 00:00:00 [facility] HPV 2013-11-29 Completed [facility] 00:00:00 [facility] Influenza Virus 2013-11-29 Completed [facility] Vaccine (3+ yrs) 00:00:00 [facility] HPV 2013-11-29 Completed [facility] 00:00:00 [facility] Influenza Virus 2013-11-29 Completed [facility] Vaccine (3+ yrs) 00:00:00 [facility] HPV 2013-11-29 Completed [facility] 00:00:00 [facility] Influenza Virus 2013-11-29 Completed [facility] Vaccine (3+ yrs) 00:00:00 [facility] HPV 2013-11-29 Completed [facility] 00:00:00 [facility] Influenza Virus 2013-11-29 Completed [facility] Vaccine (3+ yrs) 00:00:00 [facility] HPV 2013-11-29 Completed [facility] 00:00:00 [facility] Influenza Virus 2013-11-29 Completed [facility] Vaccine (3+ yrs) 00:00:00 [facility] HPV 2013-11-29 Completed [facility] 00:00:00 [facility] Influenza Virus 2013-11-29 Completed [facility] Vaccine (3+ yrs) 00:00:00 [facility] HPV 2013-11-29 Completed [facility] 00:00:00 [facility] Influenza Virus 2013-11-29 Completed [facility] Vaccine (3+ yrs) 00:00:00 [facility] HPV 2013-11-29 Completed [facility] 00:00:00 [facility] Influenza Virus 2013-11-29 Completed [facility] Vaccine (3+ yrs) 00:00:00 [facility] HPV 2013-11-29 Completed [facility] 00:00:00 [facility] Influenza Virus 2013-11-29 Completed [facility] Vaccine (3+ yrs) 00:00:00 [facility] HPV 2013-11-29 Completed [facility] 00:00:00 [facility] Influenza Virus 2013-11-29 Completed [facility] Vaccine (3+ yrs) 00:00:00 [facility] HPV 2013-11-29 Completed [facility] 00:00:00 [facility] Influenza Virus 2013-11-29 Completed [facility] Vaccine (3+ yrs) 00:00:00 [facility] HPV 2013-11-29 Completed [facility] 00:00:00 [facility] Influenza Virus 2013-11-29 Completed [facility] Vaccine (3+ yrs) 00:00:00 [facility] HPV 2013-11-29 Completed [facility] 00:00:00 [facility] Influenza Virus 2013-11-29 Completed [facility] Vaccine (3+ yrs) 00:00:00 [facility] HPV 2013-11-29 Completed [facility] 00:00:00 [facility] Influenza Virus 2013-11-29 Completed [facility] Vaccine (3+ yrs) 00:00:00 [facility] HPV 2013-11-29 Completed [facility] 00:00:00 [facility] Influenza Virus 2013-11-29 Completed [facility] Vaccine (3+ yrs) 00:00:00 [facility] HPV 2013-11-29 Completed [facility] 00:00:00 [facility] Influenza Virus 2013-11-29 Completed [facility] Vaccine (3+ yrs) 00:00:00 [facility] HPV 2013-11-29 Completed [facility] 00:00:00 [facility] Influenza Virus 2013-11-29 Completed [facility] Vaccine (3+ yrs) 00:00:00 [facility] HPV 2013-11-29 Completed [facility] 00:00:00 [facility] Influenza Virus 2013-11-29 Completed [facility] Vaccine (3+ yrs) 00:00:00 [facility] HPV 2013-11-29 Completed [facility] 00:00:00 [facility] Influenza Virus 2013-11-29 Completed [facility] Vaccine (3+ yrs) 00:00:00 [facility] HPV 2013-11-29 Completed [facility] 00:00:00 [facility] Influenza Virus 2013-11-29 Completed [facility] Vaccine (3+ yrs) 00:00:00 [facility] HPV 2013-11-29 Completed [facility] 00:00:00 [facility] Influenza Virus 2013-11-29 Completed [facility] Vaccine (3+ yrs) 00:00:00 [facility] HPV 2013-11-29 Completed [facility] 00:00:00 [facility] Influenza Virus 2013-11-29 Completed [facility]ine (3+ yrs) 00[facility]00:00 [facility] [facility] HPV 2013-11-29 Completed [facility] 00:00:00 [facility] Influenza Virus 2013-11-29 Completed [facility] Vaccine (3+ yrs) 00:00:00 [facility] HPV 2013-11-29 Completed [facility] 00:00:00 [facility] Influenza Virus 2013-11-29 Completed [facility] Vaccine (3+ yrs) 00:00:00 [facility] HPV 2013-11-29 Completed [facility] 00:00:00 [facility] Influenza Virus 2013-11-29 Completed [facility] Vaccine (3+ yrs) 00:00:00 [facility] HPV 2013-11-29 Completed [facility] 00:00:00 [facility] Influenza Virus 2013-11-29 Completed [facility] Vaccine (3+ yrs) 00:00:00 [facility] Influenza Virus 2013-11-29 Completed [facility] Vaccine (3+ yrs) 00:00:00 [facility] HPV 2013-11-29 Completed [facility] 00:00:00 [facility] HPV 2013-11-29 Completed [facility] 00:00:00 [facility] Influenza Virus 2013-11-29 Completed [facility] Vaccine (3+ yrs) 00:00:00 [facility] HPV 2013-11-29 Completed [facility] 00:00:00 [facility] Influenza Virus 2013-11-29 Completed [facility] Vaccine (3+ yrs) 00:00:00 [facility] HPV 2013-11-29 Completed [facility] 00:00:00 [facility] Influenza Virus 2013-11-29 Completed [facility] Vaccine (3+ yrs) 00:00:00 [facility] HPV 2013-11-29 Completed [facility] 00:00:00 [facility] Influenza Virus 2013-11-29 Completed [facility] Vaccine (3+ yrs) 00:00:00 [facility] HPV 2013-11-29 Completed [facility] 00:00:00 [facility] Influenza Virus 2013-11-29 Completed [facility] Vaccine (3+ yrs) 00:00:00 [facility] HPV 2013-11-29 Completed [facility] 00:00:00 [facility] Influenza Virus 2013-11-29 Completed [facility] Vaccine (3+ yrs) 00:00:00 [facility] HPV 2013-11-29 Completed [facility] 00:00:00 [facility] Influenza Virus 2013-11-29 Completed [facility] Vaccine (3+ yrs) 00:00:00 [facility] HPV 2013-11-29 Completed [facility] 00:00:00 [facility] Influenza Virus 2013-11-29 Completed [facility] Vaccine (3+ yrs) 00:00:00 [facility] HPV 2013-11-29 Completed [facility] 00:00:00 [facility] Influenza Virus 2013-11-29 Completed [facility] Vaccine (3+ yrs) 00:00:00 [facility] Influenza Virus 2013-11-29 Completed [facility] Vaccine (3+ yrs) 00:00:00 [facility] HPV 2013-11-29 Completed [facility] 00:00:00 [facility] HPV 2013-11-29 Completed [facility] 00:00:00 [facility] Influenza Virus 2013-11-29 Completed [facility] Vaccine (3+ yrs) 00:00:00 [facility] HPV 2013-11-29 Completed [facility] 00:00:00 [facility] Influenza Virus 2013-11-29 Completed [facility] Vaccine (3+ yrs) 00:00:00 [facility] HPV 2013-11-29 Completed [facility] 00:00:00 [facility] Influenza Virus 2013-11-29 Completed [facility] Vaccine (3+ yrs) 00:00:00 [facility] HPV 2013-11-29 Completed [facility] 00:00:00 [facility] Influenza Virus 2013-11-29 Completed [facility] Vaccine (3+ yrs) 00:00:00 [facility] HPV 2013-11-29 Completed [facility] 00:00:00 [facility] Influenza Virus 2013-11-29 Completed [facility] Vaccine (3+ yrs) 00:00:00 [facility] HPV 2013-11-29 Completed [facility] 00:00:00 [facility] Influenza Virus 2013-11-29 Completed [facility] Vaccine (3+ yrs) 00:00:00 [facility] HPV 2013-11-29 Completed [facility] 00:00:00 [facility] Influenza Virus 2013-11-29 Completed [facility] Vaccine (3+ yrs) 00:00:00 [facility] HPV 2013-11-29 Completed [facility] 00:00:00 [facility] Influenza Virus 2013-11-29 Completed [facility] Vaccine (3+ yrs) 00:00:00 [facility] HPV 2013-11-29 Completed [facility] 00:00:00 [facility] Influenza Virus 2013-11-29 Completed [facility] Vaccine (3+ yrs) 00:00:00 [facility] HPV 2013-11-29 Completed [facility] 00:00:00 [facility] Influenza Virus 2013-11-29 Completed [facility] Vaccine (3+ yrs) 00:00:00 [facility] HPV 2013-11-29 Completed [facility] 00:00:00 [facility] Influenza Virus 2013-11-29 Completed [facility] Vaccine (3+ yrs) 00:00:00 [facility] HPV 2013-11-29 Completed [facility] 00:00:00 [facility] Influenza Virus 2013-11-29 Completed [facility] Vaccine (3+ yrs) 00:00:00 [facility] HPV 2013-11-29 Completed [facility] 00:00:00 [facility] Influenza Virus 2013-11-29 Completed [facility] Vaccine (3+ yrs) 00:00:00 [facility] HPV 2013-11-29 Completed [facility] 00:00:00 [facility] Influenza Virus 2013-11-29 Completed [facility] Vaccine (3+ yrs) 00:00:00 [facility] HPV 2013-11-29 Completed [facility] 00:00:00 [facility] Influenza Virus 2013-11-29 Completed [facility] Vaccine (3+ yrs) 00:00:00 [facility] HPV 2013-11-29 Completed [facility] 00:00:00 [facility] Influenza Virus 2013-11-29 Completed [facility] Vaccine (3+ yrs) 00:00:00 [facility] HPV 2013-11-29 Completed [facility] 00:00:00 [facility] Influenza Virus 2013-11-29 Completed [facility] Vaccine (3+ yrs) 00:00:00 [facility] HPV 2013-11-29 Completed [facility] 00:00:00 [facility] Influenza Virus 2013-11-29 Completed [facility] Vaccine (3+ yrs) 00:00:00 [facility] HPV 2013-11-29 Completed [facility] 00:00:00 [facility] Influenza Virus 2013-11-29 Completed [facility] Vaccine (3+ yrs) 00:00:00 [facility] HPV 2013-11-29 Completed [facility] 00:00:00 [facility] Influenza Virus 2013-11-29 Completed [facility] Vaccine (3+ yrs) 00:00:00 [facility] HPV 2013-11-29 Completed [facility] 00:00:00 [facility] Influenza Virus 2013-11-29 Completed [facility] Vaccine (3+ yrs) 00:00:00 [facility] HPV 2013-11-29 Completed [facility] 00:00:00 [facility] Influenza Virus 2013-11-29 Completed [facility] Vaccine (3+ yrs) 00:00:00 [facility] HPV 2013-11-29 Completed [facility] 00:00:00 [facility] Influenza Virus 2013-11-29 Completed [facility] Vaccine (3+ yrs) 00:00:00 [facility] HPV 2013-11-29 Completed [facility] 00:00:00 [facility] Influenza Virus 2013-11-29 Completed [facility] Vaccine (3+ yrs) 00:00:00 [facility] HPV 2013-11-29 Completed [facility] 00:00:00 [facility] Influenza Virus 2013-11-29 Completed [facility] Vaccine (3+ yrs) 00:00:00 [facility] HPV 2013-11-29 Completed [facility] 00:00:00 [facility] Influenza Virus 2013-11-29 Completed [facility] Vaccine (3+ yrs) 00:00:00 [facility] HPV 2013-11-29 Completed [facility] 00:00:00 [facility] Influenza Virus 2013-11-29 Completed [facility] Vaccine (3+ yrs) 00:00:00 [facility] HPV 2013-11-29 Completed [facility] 00:00:00 [facility] Influenza Virus 2013-11-29 Completed [facility] Vaccine (3+ yrs) 00:00:00 [facility] HPV 2013-11-29 Completed [facility] 00:00:00 [facility] Influenza Virus 2013-11-29 Completed [facility] Vaccine (3+ yrs) 00:00:00 [facility] HPV 2013-11-29 Completed [facility] 00:00:00 [facility] Influenza Virus 2013-11-29 Completed [facility] Vaccine (3+ yrs) 00:00:00 [facility] HPV 2013-11-29 Completed [facility] 00:00:00 [facility] Influenza Virus 2013-11-29 Completed [facility] Vaccine (3+ yrs) 00:00:00 [facility] HPV 2013-11-29 Completed [facility] 00:00:00 [facility] Influenza Virus 2013-11-29 Completed [facility] Vaccine (3+ yrs) 00:00:00 [facility] HPV 2013-11-29 Completed [facility] 00:00:00 [facility] Influenza Virus 2013-11-29 Completed [facility] Vaccine (3+ yrs) 00:00:00 [facility] HPV 2013-11-29 Completed [facility] 00:00:00 [facility] Influenza Virus 2013-11-29 Completed [facility] Vaccine (3+ yrs) 00:00:00 [facility] HPV 2013-11-29 Completed [facility] 00:00:00 [facility] Influenza Virus 2013-11-29 Completed [facility] Vaccine (3+ yrs) 00:00:00 [facility] HPV 2013-11-29 Completed [facility] 00:00:00 [facility] Influenza Virus 2013-11-29 Completed [facility] Vaccine (3+ yrs) 00:00:00 [facility] HPV 2013-11-29 Completed [facility] 00:00:00 [facility] Influenza Virus 2013-11-29 Completed [facility] Vaccine (3+ yrs) 00:00:00 [facility] Influenza Virus 2013-11-29 Completed [facility] Vaccine (3+ yrs) 00:00:00 [facility] HPV 2013-11-29 Completed [facility] 00:00:00 [facility] HPV 2013-11-29 Completed [facility] 00:00:00 [facility] Influenza Virus 2013-11-29 Completed [facility] Vaccine (3+ yrs) 00:00:00 [facility] HPV 2013-11-29 Completed [facility] 00:00:00 [facility] Influenza Virus 2013-11-29 Completed [facility] Vaccine (3+ yrs) 00:00:00 [facility] HPV 2013-11-29 Completed [facility] 00:00:00 [facility] Influenza Virus 2013-11-29 Completed [facility] Vaccine (3+ yrs) 00:00:00 [facility] HPV 2013-11-29 Completed [facility] 00:00:00 [facility] Influenza Virus 2013-11-29 Completed [facility] Vaccine (3+ yrs) 00:00:00 [facility] HPV 2013-11-29 Completed [facility] 00:00:00 [facility] Influenza Virus 2013-11-29 Completed [facility] Vaccine (3+ yrs) 00:00:00 [facility] HPV 2013-11-29 Completed [facility] 00:00:00 [facility] Influenza Virus 2013-11-29 Completed [facility] Vaccine (3+ yrs) 00:00:00 [facility] HPV 2013-11-29 Completed [facility] 00:00:00 [facility] Influenza Virus 2013-11-29 Completed [facility] Vaccine (3+ yrs) 00:00:00 [facility] HPV 2013-11-29 Completed [facility] 00:00:00 [facility] Influenza Virus 2013-11-29 Completed [facility] Vaccine (3+ yrs) 00:00:00 [facility] HPV 2013-11-29 Completed [facility] 00:00:00 [facility] Influenza Virus 2013-11-29 Completed [facility] Vaccine (3+ yrs) 00:00:00 [facility] HPV 2013-11-29 Completed [facility] 00:00:00 [facility] Influenza Virus 2013-11-29 Completed [facility] Vaccine (3+ yrs) 00:00:00 [facility] HPV 2013-11-29 Completed [facility] 00:00:00 [facility] Influenza Virus 2013-11-29 Completed [facility] Vaccine (3+ yrs) 00:00:00 [facility] HPV 2013-11-29 Completed [facility] 00:00:00 [facility] Influenza Virus 2013-11-29 Completed [facility] Vaccine (3+ yrs) 00:00:00 [facility] HPV 2013-11-29 Completed [facility] 00:00:00 [facility] Influenza Virus 2013-11-29 Completed [facility] Vaccine (3+ yrs) 00:00:00 [facility] HPV 2013-11-29 Completed [facility] 00:00:00 [facility] Influenza Virus 2013-11-29 Completed [facility] Vaccine (3+ yrs) 00:00:00 [facility] HPV 2013-11-29 Completed [facility] 00:00:00 [facility] Influenza Virus 2013-11-29 Completed [facility] Vaccine (3+ yrs) 00:00:00 [facility] HPV 2013-11-29 Completed [facility] 00:00:00 [facility] Influenza Virus 2013-11-29 Completed [facility] Vaccine (3+ yrs) 00:00:00 [facility] HPV 2013-11-29 Completed [facility] 00:00:00 [facility] Influenza Virus 2013-11-29 Completed [facility] Vaccine (3+ yrs) 00:00:00 [facility] HPV 2013-11-29 Completed [facility] 00:00:00 [facility] Influenza Virus 2013-11-29 Completed [facility] Vaccine (3+ yrs) 00:00:00 [facility] HPV 2013-11-29 Completed [facility] 00:00:00 [facility] Influenza Virus 2013-11-29 Completed [facility] Vaccine (3+ yrs) 00:00:00 [facility] HPV 2013-11-29 Completed [facility] 00:00:00 [facility] Influenza Virus 2013-11-29 Completed [facility] Vaccine (3+ yrs) 00:00:00 [facility] HPV 2013-11-29 Completed [facility] 00:00:00 [facility] Influenza Virus 2013-11-29 Completed [facility] Vaccine (3+ yrs) 00:00:00 [facility] HPV 2013-11-29 Completed [facility] 00:00:00 [facility] Influenza Virus 2013-11-29 Completed [facility] Vaccine (3+ yrs) 00:00:00 [facility] HPV 2013-11-29 Completed [facility] 00:00:00 [facility] Influenza Virus 2013-11-29 Completed [facility] Vaccine (3+ yrs) 00:00:00 [facility] Influenza Virus 2013-11-29 Completed [facility] Vaccine (3+ yrs) 00:00:00 [facility] HPV 2013-11-29 Completed [facility] 00:00:00 [facility] HPV 2013-11-29 Completed [facility] 00:00:00 [facility] Influenza Virus 2013-11-29 Completed [facility] Vaccine (3+ yrs) 00:00:00 [facility] HPV 2013-11-29 Completed [facility] 00:00:00 [facility] Influenza Virus 2013-11-29 Completed [facility] Vaccine (3+ yrs) 00:00:00 [facility] HPV 2013-11-29 Completed [facility] 00:00:00 [facility] Influenza Virus 2013-11-29 Completed [facility] Vaccine (3+ yrs) 00:00:00 [facility] HPV 2013-11-29 Completed [facility] 00:00:00 [facility] Influenza Virus 2013-11-29 Completed [facility] Vaccine (3+ yrs) 00:00:00 [facility] HPV 2013-11-29 Completed [facility] 00:00:00 [facility] HPV 2013-07-28 Completed [facility] 00:00:00 [facility] HPV 2013-07-28 Completed [facility] 00:00:00 [facility] HPV 2013-07-28 Completed [facility] 00:00:00 [facility] HPV 2013-07-28 Completed [facility] 00:00:00 [facility] HPV 2013-07-28 Completed [facility] 00:00:00 [facility] HPV 2013-07-28 Completed [facility] 00:00:00 [facility] HPV 2013-07-28 Completed [facility] 00:00:00 [facility] HPV 2013-07-28 Completed [facility] 00:00:00 [facility] HPV 2013-07-28 Completed [facility] 00:00:00 [facility] HPV 2013-07-28 Completed [facility] 00:00:00 [facility] HPV 2013-07-28 Completed [facility] 00:00:00 [facility] HPV 2013-07-28 Completed [facility] 00:00:00 [facility] HPV 2013-07-28 Completed [facility] 00:00:00 [facility] HPV 2013-07-28 Completed [facility] 00:00:00 [...] [facility] HPV 2013-07-28 Completed [facility] 00:00:00 [facility] HPV 2013-07-28 Completed [facility] 00:00:00 [facility] Tdap 2012-06-16 Completed [facility] 00:00:00 [facility] Meningococcal 2012-06-16 Completed [facility] Vaccine 00:00:00 [facility] Tdap 2012-06-16 Completed [facility] 00:00:00 [facility] Meningococcal 2012-06-16 Completed [facility] Vaccine 00:00:00 [facility] Meningococcal 2012-06-16 Completed [facility] Vaccine 00:00:00 [facility] Tdap 2012-06-16 Completed [facility] 00:00:00 [facility] Meningococcal 2012-06-16 Completed [facility] Vaccine 00:00:00 [facility] Tdap 2012-06-16 Completed [facility] 00:00:00 [facility] TDAP 2012-06-16 Completed [facility] 00:00:00 [facility] Meningococcal 2012-06-16 Completed [facility] Vaccine 00:00:00 [facility] Tdap 2012-06-16 Completed [facility] 00:00:00 [facility] Meningococcal 2012-06-16 Completed [facility] Vaccine 00:00:00 [facility] Tdap 2012-06-16 Completed [facility] 00:00:00 [facility] Meningococcal 2012-06-16 Completed [facility] Vaccine 00:00:00 [facility] Tdap 2012-06-16 Completed [facility] 00:00:00 [facility] Meningococcal 2012-06-16 Completed [facility] Vaccine 00:00:00 [facility] Tdap 2012-06-16 Completed [facility] 00:00:00 [facility] Meningococcal 2012-06-16 Completed [facility] Vaccine 00:00:00 [facility] Tdap 2012-06-16 Completed [facility] 00:00:00 [facility] Meningococcal 2012-06-16 Completed [facility] Vaccine 00:00:00 [facility] Tdap 2012-06-16 Completed [facility] 00:00:00 [facility] Meningococcal 2012-06-16 Completed [facility] Vaccine 00:00:00 [facility] Tdap 2012-06-16 Completed [facility] 00:00:00 [facility] Meningococcal 2012-06-16 Completed [facility] Vaccine 00:00:00 [facility] Tdap 2012-06-16 Completed [facility] 00:00:00 [facility] Meningococcal 2012-06-16 Completed [facility] Vaccine 00:00:00 [facility] Tdap 2012-06-16 Completed [facility] 00:00:00 [facility] Meningococcal 2012-06-16 Completed [facility] Vaccine 00:00:00 [facility] Tdap 2012-06-16 Completed [facility] 00:00:00 [facility] Meningococcal 2012-06-16 Completed [facility] Vaccine 00:00:00 [facility] Meningococcal 2012-06-16 Completed [facility] Vaccine 00:00:00 [facility] Tdap 2012-06-16 Completed [facility] 00:00:00 [facility] Meningococcal 2012-06-16 Completed [facility] Vaccine 00:00:00 [facility] Tdap 2012-06-16 Completed [facility] 00:00:00 [facility] TDAP 2012-06-16 Completed [facility] 00:00:00 [facility] Meningococcal 2012-06-16 Completed [facility] Vaccine 00:00:00 [facility] Tdap 2012-06-16 Completed [facility] 00:00:00 [facility] Meningococcal 2012-06-16 Completed [facility] Vaccine 00:00:00 [facility] Tdap 2012-06-16 Completed [facility] 00:00:00 [facility] Meningococcal 2012-06-16 Completed [facility] Vaccine 00:00:00 [facility] Tdap 2012-06-16 Completed [facility] 00:00:00 [facility] Meningococcal 2012-06-16 Completed [facility] Vaccine 00:00:00 [facility] Tdap 2012-06-16 Completed [facility] 00:00:00 [facility] Meningococcal 2012-06-16 Completed [facility] Vaccine 00:00:00 [facility] Tdap 2012-06-16 Completed [facility] 00:00:00 [facility] Meningococcal 2012-06-16 Completed [facility] Vaccine 00:00:00 [facility] Tdap 2012-06-16 Completed [facility] 00:00:00 [facility] Meningococcal 2012-06-16 Completed [facility] Vaccine 00:00:00 [facility] Tdap 2012-06-16 Completed [facility] 00:00:00 [facility] Meningococcal 2012-06-16 Completed [facility] Vaccine 00:00:00 [facility] Tdap 2012-06-16 Completed [facility] 00:00:00 [facility] Meningococcal 2012-06-16 Completed [facility] Vaccine 00:00:00 [facility] Meningococcal 2012-06-16 Completed [facility] Vaccine 00:00:00 [facility] Tdap 2012-06-16 Completed [facility] 00:00:00 [facility] Meningococcal 2012-06-16 Completed [facility] Vaccine 00:00:00 [facility] Tdap 2012-06-16 Completed [facility] 00:00:00 [facility] Meningococcal 2012-06-16 Completed [facility] Vaccine 00:00:00 [facility] TDAP 2012-06-16 Completed [facility] 00:00:00 [facility] Tdap 2012-06-16 Completed [facility] 00:00:00 [facility] Meningococcal 2012-06-16 Completed [facility] Vaccine 00:00:00 [facility] Tdap 2012-06-16 Completed [facility] 00:00:00 [facility] Meningococcal 2012-06-16 Completed [facility] Vaccine 00:00:00 [facility] Tdap 2012-06-16 Completed [facility] 00:00:00 [facility] Meningococcal 2012-06-16 Completed [facility] Vaccine 00:00:00 [facility] Tdap 2012-06-16 Completed [facility] 00:00:00 [facility] Meningococcal 2012-06-16 Completed [facility] Vaccine 00:00:00 [facility] Tdap 2012-06-16 Completed [facility] 00:00:00 [facility] Meningococcal 2012-06-16 Completed [facility] Vaccine 00:00:00 [facility] Tdap 2012-06-16 Completed [facility] 00:00:00 [facility] Meningococcal 2012-06-16 Completed [facility] Vaccine 00:00:00 [facility] Meningococcal 2012-06-16 Completed [facility] Vaccine 00:00:00 [facility] TDAP 2012-06-16 Completed [facility] 00:00:00 [facility] Meningococcal 2012-06-16 Completed [facility] Vaccine 00:00:00 [facility] TDAP 2012-06-16 Completed [facility] 00:00:00 [facility] Meningococcal 2012-06-16 Completed [facility] Vaccine 00:00:00 [facility] Tdap 2012-06-16 Completed [facility] 00:00:00 [facility] TDAP 2012-06-16 Completed [facility] 00:00:00 [facility] Meningococcal 2012-06-16 Completed [facility] Vaccine 00:00:00 [facility] TDAP 2012-06-16 Completed [facility] 00:00:00 [facility] Meningococcal 2012-06-16 Completed [facility] Vaccine 00:00:00 [facility] TDAP 2012-06-16 Completed [facility] 00:00:00 [facility] Meningococcal 2012-06-16 Completed [facility] Vaccine 00:00:00 [facility] TDAP 2012-06-16 Completed [facility] 00:00:00 [facility] Meningococcal 2012-06-16 Completed [facility] Vaccine 00:00:00 [facility] TDAP 2012-06-16 Completed [facility] 00:00:00 [facility] Meningococcal 2012-06-16 Completed [facility] Vaccine 00:00:00 [facility] TDAP 2012-06-16 Completed [facility] 00:00:00 [facility] Meningococcal 2012-06-16 Completed [facility] Vaccine 00:00:00 [facility] TDAP 2012-06-16 Completed [facility] 00:00:00 [facility] Meningococcal 2012-06-16 Completed [facility] Vaccine 00:00:00 [facility] Meningococcal 2012-06-16 Completed [facility] Vaccine 00:00:00 [facility] TDAP 2012-06-16 Completed [facility] 00:00:00 [facility] Meningococcal 2012-06-16 Completed [facility] Vaccine 00:00:00 [facility] TDAP 2012-06-16 Completed [facility] 00:00:00 [facility] Tdap 2012-06-16 Completed [facility] 00:00:00 [facility] Meningococcal 2012-06-16 Completed [facility] Vaccine 00:00:00 [facility] TDAP 2012-06-16 Completed [facility] 00:00:00 [facility] Meningococcal 2012-06-16 Completed [facility] Vaccine 00:00:00 [facility] TDAP 2012-06-16 Completed [facility] 00:00:00 [facility] Meningococcal 2012-06-16 Completed [facility] Vaccine 00:00:00 [facility] TDAP 2012-06-16 Completed [facility] 00:00:00 [facility] Meningococcal 2012-06-16 Completed [facility] Vaccine 00:00:00 [facility] TDAP 2012-06-16 Completed [facility] 00:00:00 [facility] Meningococcal 2012-06-16 Completed [facility] Vaccine 00:00:00 [facility] TDAP 2012-06-16 Completed [facility] 00:00:00 [facility] Meningococcal 2012-06-16 Completed [facility] Vaccine 00:00:00 [facility] Meningococcal 2012-06-16 Completed [facility] Vaccine 00:00:00 [facility] TDAP 2012-06-16 Completed [facility] 00:00:00 [facility] Meningococcal 2012-06-16 Completed [facility] Vaccine 00:00:00 [facility] TDAP 2012-06-16 Completed [facility] 00:00:00 [facility] Tdap 2012-06-16 Completed [facility] 00:00:00 [facility] Meningococcal 2012-06-16 Completed [facility] Vaccine 00:00:00 [facility] TDAP 2012-06-16 Completed [facility] 00:00:00 [facility] Meningococcal 2012-06-16 Completed [facility] Vaccine 00:00:00 [facility] TDAP 2012-06-16 Completed [facility] 00:00:00 [facility] Meningococcal 2012-06-16 Completed [facility] Vaccine 00:00:00 [facility] TDAP 2012-06-16 Completed [facility] 00:00:00 [facility] Meningococcal 2012-06-16 Completed [facility] Vaccine 00:00:00 [facility] TDAP 2012-06-16 Completed [facility] 00:00:00 [facility] Meningococcal 2012-06-16 Completed [facility] Vaccine 00:00:00 [facility] TDAP 2012-06-16 Completed [facility] 00:00:00 [facility] Meningococcal 2012-06-16 Completed [facility] Vaccine 00:00:00 [facility] TDAP 2012-06-16 Completed [facility] 00:00:00 [facility] Meningococcal 2012-06-16 Completed [facility] Vaccine 00:00:00 [facility] TDAP 2012-06-16 Completed [facility] 00:00:00 [facility] Meningococcal 2012-06-16 Completed [facility] Vaccine 00:00:00 [facility] Meningococcal 2012-06-16 Completed [facility] Vaccine 00:00:00 [facility] TDAP 2012-06-16 Completed [facility] 00:00:00 [facility] Meningococcal 2012-06-16 Completed [facility] Vaccine 00:00:00 [facility] TDAP 2012-06-16 Completed [facility] 00:00:00 [facility] Tdap 2012-06-16 Completed [facility] 00:00:00 [facility] Meningococcal 2012-06-16 Completed [facility] Vaccine 00:00:00 [facility] TDAP 2012-06-16 Completed [facility] 00:00:00 [facility] Meningococcal 2012-06-16 Completed [facility] Vaccine 00:00:00 [facility] TDAP 2012-06-16 Completed [facility] 00:00:00 [facility] Meningococcal 2012-06-16 Completed [facility] Vaccine 00:00:00 [facility] TDAP 2012-06-16 Completed [facility] 00:00:00 [facility] Meningococcal 2012-06-16 Completed [facility] Vaccine 00:00:00 [facility] TDAP 2012-06-16 Completed [facility] 00:00:00 [facility] Meningococcal 2012-06-16 Completed [facility] Vaccine 00:00:00 [facility] TDAP 2012-06-16 Completed [facility] 00:00:00 [facility] Meningococcal 2012-06-16 Completed [facility] Vaccine 00:00:00 [facility] TDAP 2012-06-16 Completed [facility] 00:00:00 [facility] Meningococcal 2012-06-16 Completed [facility] Vaccine 00:00:00 [facility] TDAP 2012-06-16 Completed [facility] 00:00:00 [facility] Meningococcal 2012-06-16 Completed [facility] Vaccine 00:00:00 [facility] Meningococcal 2012-06-16 Completed [facility] Vaccine 00:00:00 [facility] TDAP 2012-06-16 Completed [facility] 00:00:00 [facility] Meningococcal 2012-06-16 Completed [facility] Vaccine 00:00:00 [facility] TDAP 2012-06-16 Completed [facility] 00:00:00 [facility] Tdap 2012-06-16 Completed [facility] 00:00:00 [facility] Meningococcal 2012-06-16 Completed [facility] Vaccine 00:00:00 [facility] TDAP 2012-06-16 Completed [facility] 00:00:00 [facility] Meningococcal 2012-06-16 Completed [facility] Vaccine 00:00:00 [facility] TDAP 2012-06-16 Completed [facility] 00:00:00 [facility] Meningococcal 2012-06-16 Completed [facility] Vaccine 00:00:00 [facility] TDAP 2012-06-16 Completed [facility] 00:00:00 [facility] Meningococcal 2012-06-16 Completed [facility] Vaccine 00:00:00 [facility] TDAP 2012-06-16 Completed [facility] 00:00:00 [facility] Meningococcal 2012-06-16 Completed [facility] Vaccine 00:00:00 [facility] TDAP 2012-06-16 Completed [facility] 00:00:00 [facility] Meningococcal 2012-06-16 Completed [facility] Vaccine 00:00:00 [facility] TDAP 2012-06-16 Completed [facility] 00:00:00 [facility] Meningococcal 2012-06-16 Completed [facility] Vaccine 00:00:00 [facility] Meningococcal 2012-06-16 Completed [facility] Vaccine 00:00:00 [facility] TDAP 2012-06-16 Completed [facility] 00:00:00 [facility] Meningococcal 2012-06-16 Completed [facility] Vaccine 00:00:00 [facility] TDAP 2012-06-16 Completed [facility] 00:00:00 [facility] Tdap 2012-06-16 Completed [facility] 00:00:00 [facility] Meningococcal 2012-06-16 Completed [facility] Vaccine 00:00:00 [facility] TDAP 2012-06-16 Completed [facility] 00:00:00 [facility] Meningococcal 2012-06-16 Completed [facility] Vaccine 00:00:00 [facility] TDAP 2012-06-16 Completed [facility] 00:00:00 [facility] Meningococcal 2012-06-16 Completed [facility] Vaccine 00:00:00 [facility] TDAP 2012-06-16 Completed [facility] 00:00:00 [facility] Meningococcal 2012-06-16 Completed [facility] Vaccine 00:00:00 [facility] TDAP 2012-06-16 Completed [facility] 00:00:00 [facility] Meningococcal 2012-06-16 Completed [facility] Vaccine 00:00:00 [facility] TDAP 2012-06-16 Completed [facility] 00:00:00 [facility] Meningococcal 2012-06-16 Completed [facility] Vaccine 00:00:00 [facility] TDAP 2012-06-16 Completed [facility] 00:00:00 [facility] Meningococcal 2012-06-16 Completed [facility] Vaccine 00:00:00 [facility] TDAP 2012-06-16 Completed [facility] 00:00:00 [facility] Meningococcal 2012-06-16 Completed [facility] Vaccine 00:00:00 [facility] Meningococcal 2012-06-16 Completed [facility] Vaccine 00:00:00 [facility] TDAP 2012-06-16 Completed [facility] 00:00:00 [facility] Tdap 2012-06-16 Completed [facility] 00:00:00 [facility] Meningococcal 2012-06-16 Completed [facility] Vaccine 00:00:00 [facility] TDAP 2012-06-16 Completed [facility] 00:00:00 [facility] Meningococcal 2012-06-16 Completed [facility] Vaccine 00:00:00 [facility] TDAP 2012-06-16 Completed [facility] 00:00:00 [facility] Meningococcal 2012-06-16 Completed [facility] Vaccine 00:00:00 [facility] TDAP 2012-06-16 Completed [facility] 00:00:00 [facility] Meningococcal 2012-06-16 Completed [facility] Vaccine 00:00:00 [facility] TDAP 2012-06-16 Completed [facility] 00:00:00 [facility] Meningococcal 2012-06-16 Completed [facility] Vaccine 00:00:00 [facility] TDAP 2012-06-16 Completed [facility] 00:00:00 [facility] Meningococcal 2012-06-16 Completed [facility] Vaccine 00:00:00 [facility] TDAP 2012-06-16 Completed [facility] 00:00:00 [facility] Meningococcal 2012-06-16 Completed [facility] Vaccine 00:00:00 [facility] TDAP 2012-06-16 Completed [facility] 00:00:00 [facility] Meningococcal 2012-06-16 Completed [facility] Vaccine 00:00:00 [facility] Meningococcal 2012-06-16 Completed [facility] Vaccine 00:00:00 [facility] TDAP 2012-06-16 Completed [facility] 00:00:00 [facility] Meningococcal 2012-06-16 Completed [facility] Vaccine 00:00:00 [facility] TDAP 2012-06-16 Completed [facility] 00:00:00 [facility] Tdap 2012-06-16 Completed [facility] 00:00:00 [facility] Meningococcal 2012-06-16 Completed [facility] Vaccine 00:00:00 [facility] TDAP 2012-06-16 Completed [facility] 00:00:00 [facility] Meningococcal 2012-06-16 Completed [facility] Vaccine 00:00:00 [facility] TDAP 2012-06-16 Completed [facility] 00:00:00 [facility] Meningococcal 2012-06-16 Completed [facility] Vaccine 00:00:00 [facility] TDAP 2012-06-16 Completed [facility] 00:00:00 [facility] Meningococcal 2012-06-16 Completed [facility] Vaccine 00:00:00 [facility] TDAP 2012-06-16 Completed [facility] 00:00:00 [facility] Meningococcal 2012-06-16 Completed [facility] Vaccine 00:00:00 [facility] TDAP 2012-06-16 Completed [facility] 00:00:00 [facility] Meningococcal 2012-06-16 Completed [facility] Vaccine 00:00:00 [facility] TDAP 2012-06-16 Completed [facility] 00:00:00 [facility] Meningococcal 2012-06-16 Completed [facility] Vaccine 00:00:00 [facility] Meningococcal 2012-06-16 Completed [facility] Vaccine 00:00:00 [facility] TDAP 2012-06-16 Completed [facility] 00:00:00 [facility] Meningococcal 2012-06-16 Completed [facility] Vaccine 00:00:00 [facility] TDAP 2012-06-16 Completed [facility] 00:00:00 [facility] Tdap 2012-06-16 Completed [facility] 00:00:00 [facility] Meningococcal 2012-06-16 Completed [facility] Vaccine 00:00:00 [facility] TDAP 2012-06-16 Completed [facility] 00:00:00 [facility] Meningococcal 2012-06-16 Completed [facility] Vaccine 00:00:00 [facility] TDAP 2012-06-16 Completed [facility] 00:00:00 [facility] Meningococcal 2012-06-16 Completed [facility] Vaccine 00:00:00 [facility] TDAP 2012-06-16 Completed [facility] 00:00:00 [facility] Meningococcal 2012-06-16 Completed [facility] Vaccine 00:00:00 [facility] TDAP 2012-06-16 Completed [facility] 00:00:00 [facility] Meningococcal 2012-06-16 Completed [facility] Vaccine 00:00:00 [facility] TDAP 2012-06-16 Completed [facility] 00:00:00 [facility] Meningococcal 2012-06-16 Completed [facility] Vaccine 00:00:00 [facility] TDAP 2012-06-16 Completed [facility] 00:00:00 [facility] Meningococcal 2012-06-16 Completed [facility] Vaccine 00:00:00 [facility] TDAP 2012-06-16 Completed [facility] 00:00:00 [facility] Meningococcal 2012-06-16 Completed [facility] Vaccine 00:00:00 [facility] Meningococcal 2012-06-16 Completed [facility] Vaccine 00:00:00 [facility] TDAP 2012-06-16 Completed [facility] 00:00:00 [facility] Meningococcal 2012-06-16 Completed [facility] Vaccine 00:00:00 [facility] TDAP 2012-06-16 Completed [facility] 00:00:00 [facility] Meningococcal 2012-06-16 Completed [facility] Vaccine 00:00:00 [facility] TDAP 2012-06-16 Completed [facility] 00:00:00 [facility] Meningococcal 2012-06-16 Completed [facility] Vaccine 00:00:00 [facility] Meningococcal 2012-06-16 Completed [facility] Vaccine 00:00:00 [facility] TDAP 2012-06-16 Completed [facility] 00:00:00 [facility] Meningococcal 2012-06-16 Completed [facility] Vaccine 00:00:00 [facility] TDAP 2012-06-16 Completed [facility] 00:00:00 [facility] Tdap 2012-06-16 Completed [facility] 00:00:00 [facility] Meningococcal 2012-06-16 Com[facility] 00:[facility]:00 [facility] TDAP 2012-06-16 Completed [facility] 00[facility]00:00 [facility] Meningococcal 2012-06-16 Completed [facility] 00:00:00 [facility] Meningococcal 2012-06-16 Completed [facility] 00:00:00 [facility] Meningococcal 2012-06-16 Completed [facility] Vaccine 00:00:00 [facility] Tdap 2012-06-16 Completed [facility] 00:00:00 [facility] Meningococcal 2012-06-16 Completed [facility] Vaccine 00:00:00 [facility] Tdap 2012-06-16 Completed [facility] 00:00:00 [facility] Meningococcal 2012-06-16 Completed [facility] Vaccine 00:00:00 [facility] Tdap 2012-06-16 Completed [facility] 00:00:00 [facility] Meningococcal 2012-06-16 Completed [facility] Vaccine 00:00:00 [facility] Varicella 2007-10-14 Completed [facility] (varivax)(chicken 00:00:00 [facility] edical pox) [place] Influenza Virus 2007-10-14 Completed [facility] y of Vaccine - Whole 00:00:00 [facility] Varicella 2007-10-14 Completed [facility] (varivax)(chicken 00:00:00 [facility] Influenza Virus 2007-10-14 Completed [facility] y of Vaccine - Whole 00:00:00 [facility] Varicella 2007-10-14 Completed [facility] (varivax)(chicken 00:00:00 [facility] Influenza Virus 2007-10-14 Completed [facility] y of Vaccine - Whole 00:00:00 [facility] Varicella 2007-10-14 Completed [facility] (varivax)(chicken 00:00:00 [facility] Influenza Virus 2007-10-14 Completed [facility] y of Vaccine - Whole 00:00:00 [facility] Varicella 2007-10-14 Completed [facility] (varivax)(chicken 00:00:00 [facility] Influenza Virus 2007-10-14 Completed [facility] y of Vaccine - Whole 00:00:00 [facility] Varicella 2007-10-14 Completed [facility] (varivax)(chicken 00:00:00 [facility] Influenza Virus 2007-10-14 Completed [facility] y of Vaccine - Whole 00:00:00 [facility] Varicella 2007-10-14 Completed [facility] (varivax)(chicken 00:00:00 [facility] Influenza Virus 2007-10-14 Completed [facility] y of Vaccine - Whole 00:00:00 [facility] Varicella 2007-10-14 Completed [facility] (varivax)(chicken 00:00:00 [facility] Influenza Virus 2007-10-14 Completed [facility] y of Vaccine - Whole 00:00:00 [facility] Varicella 2007-10-14 Completed [facility] (varivax)(chicken 00:00:00 [facility] Influenza Virus 2007-10-14 Completed [facility] y of Vaccine - Whole 00:00:00 [facility] Varicella 2007-10-14 Completed [facility] (varivax)(chicken 00:00:00 [facility] Varicella 2007-10-14 Completed [facility] (varivax)(chicken 00:00:00 [facility] Influenza Virus 2007-10-14 Completed [facility] y of Vaccine - Whole 00:00:00 [facility] Influenza Virus 2007-10-14 Completed [facility] y of Vaccine - Whole 00:00:00 [facility] Varicella 2007-10-14 Completed [facility] (varivax)(chicken 00:00:00 [facility] Influenza Virus 2007-10-14 Completed [facility] y of Vaccine - Whole 00:00:00 [facility] Varicella 2007-10-14 Completed [facility] (varivax)(chicken 00:00:00 [facility] Influenza Virus 2007-10-14 Completed [facility] y of Vaccine - Whole 00:00:00 [facility] Varicella 2007-10-14 Completed [facility] (varivax)(chicken 00:00:00 [facility] Influenza Virus 2007-10-14 Completed [facility] y of Vaccine - Whole 00:00:00 [facility] Varicella 2007-10-14 Completed [facility] (varivax)(chicken 00:00:00 [facility] Influenza Virus 2007-10-14 Completed [facility] y of Vaccine - Whole 00:00:00 [facility] Varicella 2007-10-14 Completed [facility] (varivax)(chicken 00:00:00 [facility] Influenza Virus 2007-10-14 Completed [facility] y of Vaccine - Whole 00:00:00 [facility] Varicella 2007-10-14 Completed [facility] (varivax)(chicken 00:00:00 [facility] Influenza Virus 2007-10-14 Completed [facility] y of Vaccine - Whole 00:00:00 [facility] Varicella 2007-10-14 Completed [facility] (varivax)(chicken 00:00:00 [facility] Influenza Virus 2007-10-14 Completed [facility] y of Vaccine - Whole 00:00:00 [facility] Varicella 2007-10-14 Completed [facility] (varivax)(chicken 00:00:00 [facility] Influenza Virus 2007-10-14 Completed [facility] y of Vaccine - Whole 00:00:00 [facility] Varicella 2007-10-14 Completed [facility] (varivax)(chicken 00:00:00 [facility] Influenza Virus 2007-10-14 Completed [facility] y [facility] Vaccine - Whole 00:00:00 [facility] Varicella 2007-10-14 Completed [facility] (varivax)(chicken 00:00:00 [place] [facility] Influenza Virus 2007-10-14 Completed [facility] y [facility] Vaccine - Whole 00:00:00 [facility] Varicella 2007-10-14 Completed [facility] 00:[facility] [place] [facility] Influenza Virus 2007-10-14 Completed [facility] Vaccine - Whole 00:00:00 [facility] Varicella 2007-10-14 Completed [facility] 00:00:00 [place] [facility] Influenza Virus 2007-10-14 Completed [facility] Vaccine - Whole 00:00:00 [facility] Varicella 2007-10-14 Completed [facility] ([facility]ax[facility]icken 00:00:00 [place] [facility] Influenza Virus 2007-10-14 Completed [facility] Vaccine - Whole 00:00:00 [facility] Varicella 2007-10-14 Completed [facility] ([facility]ax[facility] 00:00:00 [place] [facility] Influenza Virus 2007-10-14 Completed [facility] Vaccine - Whole 00:00:00 [facility] Varicella 2007-10-14 Completed [facility] ([facility]ax[facility] 00:00:00 [place] [facility] Influenza Virus 2007-10-14 Completed [facility] Vaccine - Whole 00:00:00 [facility] Varicella 2007-10-14 Completed [facility] ([facility]ax[facility]icken 00:00:00 [place] [facility] Influenza Virus 2007-10-14 Completed [facility] Vaccine - Whole 00:00:00 [facility] Varicella 2007-10-14 Completed [facility] (varivax)([facility]icken 00:00:00 [place] [facility] Influenza Virus 2007-10-14 Completed [facility] Vaccine - Whole 00:00:00 [facility] Varicella 2007-10-14 Completed [facility] ([facility]ax[facility]icken 00:00:00 [place] [facility] Influenza Virus 2007-10-14 Completed [facility] Vaccine - Whole 00:00:00 [facility] Varicella 2007-10-14 Completed [facility] (var[facility]ax)([facility]icken 00:00:00 [place] [facility] Influenza Virus 2007-10-14 Completed [facility] Vaccine - Whole 00:00:00 [facility] Varicella 2007-10-14 Completed [facility] (varivax)([facility]icken 00:00:00 [place] [facility] Influenza Virus 2007-10-14 Completed [facility] Vaccine - Whole 00:00:00 [facility] Varicella 2007-10-14 Completed [facility] (varivax)([facility]icken 00:00:00 [place] [facility] Influenza Virus 2007-10-14 Completed [facility] Vaccine - Whole 00:00:00 [facility] Varicella 2007-10-14 Completed [facility] (var[facility]ax[facility]icken 00:00:00 [place] [facility] Influenza Virus 2007-10-14 Completed [facility] Vaccine - Whole 00:00:00 [facility] Varicella 2007-10-14 Completed [facility] ([facility]ivax)([facility]icken 00:00:00 [place] [facility] Influenza Virus 2007-10-14 Completed [facility] Vaccine - Whole 00:00:00 [facility] Varicella 2007-10-14 Completed [facility] (varivax)([facility]icken 00:00:00 [place] [facility] Influenza Virus 2007-10-14 Completed [facility] Vaccine - Whole 00:00:00 [facility] Varicella 2007-10-14 Completed [facility] (varivax)([facility]icken 00:00:00 [place] [facility] Influenza Virus 2007-10-14 Completed [facility] Vaccine - Whole 00:00:00 [facility] Varicella 2007-10-14 Completed [facility] (varivax)([facility]icken 00:00:00 [place] [facility] Influenza Virus 2007-10-14 Completed [facility] Vaccine - Whole 00:00:00 [facility] Varicella 2007-10-14 Completed [facility] (varivax)([facility]icken 00:00:00 [place] [facility] Influenza Virus 2007-10-14 Completed [facility] Vaccine - Whole 00:00:00 [facility] Varicella 2007-10-14 Completed [facility] (varivax)(chicken 00:00:00 [place] [facility] Influenza Virus 2007-10-14 Completed [facility] Vaccine - Whole 00:00:00 [facility] Varicella 2007-10-14 Completed [facility] (varivax)(chicken 00:00:00 [place] [facility] Influenza Virus 2007-10-14 Completed [facility] Vaccine - Whole 00:00:00 [facility] Varicella 2007-10-14 Completed [facility] (varivax)(chicken 00:00:00 [place] [facility] Influenza Virus 2007-10-14 Completed [facility] Vaccine - Whole 00:00:00 [facility] Varicella 2007-10-14 Completed [facility] (varivax)(chicken 00:00:00 [place] [facility] Influenza Virus 2007-10-14 Completed [facility] Vaccine - Whole 00:00:00 [facility] Varicella 2007-10-14 Completed [facility] (varivax)(chicken 00:00:00 [place] [facility] Influenza Virus 2007-10-14 Completed [facility] Vaccine - Whole 00:00:00 [facility] Varicella 2007-10-14 Completed [facility] (varivax)(chicken 00:00:00 [place] [facility] Influenza Virus 2007-10-14 Completed [facility] Vaccine - Whole 00:00:00 [facility] Varicella 2007-10-14 Completed [facility] (varivax)(chicken 00:00:00 [place] [facility] Influenza Virus 2007-10-14 Completed [facility] Vaccine - Whole 00:00:00 [facility] Varicella 2007-10-14 Completed [facility] (varivax)(chicken 00:00:00 [place] [facility] Influenza Virus 2007-10-14 Completed [facility] Vaccine - Whole 00:00:00 [facility] Varicella 2007-10-14 Completed [facility] (varivax)(chicken 00:00:00 [place] [facility] Influenza Virus 2007-10-14 Completed [facility] Vaccine - Whole 00:00:00 [facility] Varicella 2007-10-14 Completed [facility] (varivax)(chicken 00:00:00 [place] [facility] Influenza Virus 2007-10-14 Completed [facility] Vaccine - Whole 00:00:00 [facility] Varicella 2007-10-14 Completed [facility] (varivax)(chicken 00:00:00 [place] [facility] Influenza Virus 2007-10-14 Completed [facility] Vaccine - Whole 00:00:00 [facility] Varicella 2007-10-14 Completed [facility] (varivax)(chicken 00:00:00 [place] [facility] Influenza Virus 2007-10-14 Completed [facility] Vaccine - Whole 00:00:00 [facility] Varicella 2007-10-14 Completed [facility] (varivax)(chicken 00:00:00 [place] [facility] Influenza Virus 2007-10-14 Completed [facility] Vaccine - Whole 00:00:00 [facility] Varicella 2007-10-14 Completed [facility] (varivax)(chicken 00:00:00 [place] [facility] Influenza Virus 2007-10-14 Completed [facility] Vaccine - Whole 00:00:00 [facility] Varicella 2007-10-14 Completed [facility] (varivax)(chicken 00:00:00 [place] [facility] Influenza Virus 2007-10-14 Completed [facility] Vaccine - Whole 00:00:00 [facility] Varicella 2007-10-14 Completed [facility] (varivax)(chicken 00:00:00 [place] [facility] Influenza Virus 2007-10-14 Completed [facility] Vaccine - Whole 00:00:00 [facility] Varicella 2007-10-14 Completed [facility] (varivax)(chicken 00:00:00 [place] [facility] Influenza Virus 2007-10-14 Completed [facility] Vaccine - Whole 00:00:00 [facility] Varicella 2007-10-14 Completed [facility] (varivax)(chicken 00:00:00 [place] [facility] Influenza Virus 2007-10-14 Completed [facility] Vaccine - Whole 00:00:00 [facility] Varicella 2007-10-14 Completed [facility] (varivax)(chicken 00:00:00 [place] [facility] Influenza Virus 2007-10-14 Completed [facility] Vaccine - Whole 00:00:00 [facility] Varicella 2007-10-14 Completed [facility] (varivax)(chicken 00:00:00 [place] [facility] Influenza Virus 2007-10-14 Completed [facility] Vaccine - Whole 00:00:00 [facility] Varicella 2007-10-14 Completed [facility] (varivax)(chicken 00:00:00 [place] [facility] Influenza Virus 2007-10-14 Completed [facility] Vaccine - Whole 00:00:00 [facility] Varicella 2007-10-14 Completed [facility] (varivax)(chicken 00:00:00 [place] [facility] Influenza Virus 2007-10-14 Completed [facility] Vaccine - Whole 00:00:00 [facility] Varicella 2007-10-14 Completed [facility] (varivax)(chicken 00:00:00 [place] [facility] Influenza Virus 2007-10-14 Completed [facility] Vaccine - Whole 00:00:00 [facility] Varicella 2007-10-14 Completed [facility] (varivax)(chicken 00:00:00 [place] [facility] Influenza Virus 2007-10-14 Completed [facility] Vaccine - Whole 00:00:00 [facility] Varicella 2007-10-14 Completed [facility] (varivax)(chicken 00:00:00 [place] [facility] Influenza Virus 2007-10-14 Completed [facility] Vaccine - Whole 00:00:00 [facility] Varicella 2007-10-14 Completed [facility] (varivax)(chicken 00:00:00 [place] [facility] Influenza Virus 2007-10-14 Completed [facility] Vaccine - Whole 00:00:00 [facility] Varicella 2007-10-14 Completed [facility] (varivax)(chicken 00:00:00 [place] [facility] Influenza Virus 2007-10-14 Completed [facility] Vaccine - Whole 00:00:00 [facility] Varicella 2007-10-14 Completed [facility] (varivax)(chicken 00:00:00 [place] [facility] Influenza Virus 2007-10-14 Completed [facility] Vaccine - Whole 00:00:00 [facility] Varicella 2007-10-14 Completed [facility] (varivax)(chicken 00:00:00 [place] [facility] Influenza Virus 2007-10-14 Completed [facility] Vaccine - Whole 00:00:00 [facility] Varicella 2007-10-14 Completed [facility] (varivax)(chicken 00:00:00 [place] [facility] Influenza Virus 2007-10-14 Completed [facility] Vaccine - Whole 00:00:00 [facility] Varicella 2007-10-14 Completed [facility] (varivax)(chicken 00:00:00 [place] [facility] Influenza Virus 2007-10-14 Completed [facility] Vaccine - Whole 00:00:00 [facility] Varicella 2007-10-14 Completed [facility] (varivax)(chicken 00:00:00 [place] [facility] Influenza Virus 2007-10-14 Completed [facility] Vaccine - Whole 00:00:00 [facility] Varicella 2007-10-14 Completed [facility] (varivax)(chicken 00:00:00 [place] [facility] Influenza Virus 2007-10-14 Completed [facility] Vaccine - Whole 00:00:00 [facility] Varicella 2007-10-14 Completed [facility] (varivax)(chicken 00:00:00 [place] [facility] Influenza Virus 2007-10-14 Completed [facility] Vaccine - Whole 00:00:00 [facility] Varicella 2007-10-14 Completed [facility] (varivax)(chicken 00:00:00 [place] [facility] Influenza Virus 2007-10-14 Completed [facility] Vaccine - Whole 00:00:00 [facility] Varicella 2007-10-14 Completed [facility] (varivax)(chicken 00:00:00 [place] [facility] Influenza Virus 2007-10-14 Completed [facility] Vaccine - Whole 00:00:00 [facility] Varicella 2007-10-14 Completed [facility] (varivax)(chicken 00:00:00 [place] [facility] Influenza Virus 2007-10-14 Completed [facility] Vaccine - Whole 00:00:00 [facility] Varicella 2007-10-14 Completed [facility] (varivax)(chicken 00:00:00 [place] [facility] Influenza Virus 2007-10-14 Completed [facility] Vaccine - Whole 00:00:00 [facility] Varicella 2007-10-14 Completed [facility] (varivax)(chicken 00:00:00 [place] [facility] Influenza Virus 2007-10-14 Completed [facility] Vaccine - Whole 00:00:00 [facility] Varicella 2007-10-14 Completed [facility] (varivax)(chicken 00:00:00 [place] [facility] Influenza Virus 2007-10-14 Completed [facility] Vaccine - Whole 00:00:00 [facility] Varicella 2007-10-14 Completed [facility] (varivax)(chicken 00:00:00 [place] [facility] Influenza Virus 2007-10-14 Completed [facility] Vaccine - Whole 00:00:00 [facility] Varicella 2007-10-14 Completed [facility] (varivax)(chicken 00:00:00 [place] [facility] Influenza Virus 2007-10-14 Completed [facility] Vaccine - Whole 00:00:00 [facility] Varicella 2007-10-14 Completed [facility] (varivax)(chicken 00:00:00 [place] [facility] Influenza Virus 2007-10-14 Completed [facility] Vaccine - Whole 00:00:00 [facility] Varicella 2007-10-14 Completed [facility] (varivax)(chicken 00:00:00 [place] [facility] Influenza Virus 2007-10-14 Completed [facility] Vaccine - Whole 00:00:00 [facility] Varicella 2007-10-14 Completed [facility] (varivax)(chicken 00:00:00 [place] [facility] Influenza Virus 2007-10-14 Completed [facility] Vaccine - Whole 00:00:00 [facility] Varicella 2007-10-14 Completed [facility] (varivax)(chicken 00:00:00 [place] [facility] Influenza Virus 2007-10-14 Completed [facility] Vaccine - Whole 00:00:00 [facility] Varicella 2007-10-14 Completed [facility] (varivax)(chicken 00:00:00 [place] [facility] Influenza Virus 2007-10-14 Completed [facility] Vaccine - Whole 00:00:00 [facility] Varicella 2007-10-14 Completed [facility] (varivax)(chicken 00:00:00 [place] [facility] Influenza Virus 2007-10-14 Completed [facility] Vaccine - Whole 00:00:00 [facility] HEPATITIS A 2007-03-29 Completed [facility] 00:00:00 [facility] HEPATITIS A 2007-03-29 Completed [facility] 00:00:00 [facility] HEPATITIS A 2007-03-29 Completed [facility] 00:00:00 [facility] HEPATITIS A 2007-03-29 Completed [facility] 00:00:00 [facility] HEPATITIS A 2007-03-29 Completed [facility] 00:00:00 [facility] HEPATITIS A 2007-03-29 Completed [facility] 00:00:00 [facility] HEPATITIS A 2007-03-29 Completed [facility] 00:00:00 [facility] HEPATITIS A 2007-03-29 Completed [facility] 00:00:00 [facility] HEPATITIS A 2007-03-29 Completed [facility] 00:00:00 [facility] HEPATITIS A 2007-03-29 Completed [facility] 00:00:00 [facility] HEPATITIS A 2007-03-29 Completed [facility] 00:00:00 [facility] HEPATITIS A 2007-03-29 Completed [facility] 00:00:00 [facility] HEPATITIS A 2007-03-29 Completed [facility] 00:00:00 [facility] HEPATITIS A 2007-03-29 Completed [facility] 00:00:00 [facility] HEPATITIS A 2007-03-29 Completed [facility] 00:00:00 [facility] HEPATITIS A 2007-03-29 Completed [facility] 00:00:00 [facility] HEPATITIS A 2007-03-29 Completed [facility] 00:00:00 [facility] HEPATITIS A 2007-03-29 Completed [facility] 00:00:00 [facility] HEPATITIS A 2007-03-29 Completed [facility] 00:00:00 [facility] HEPATITIS A 2007-03-29 Completed [facility] 00:00:00 [facility] HEPATITIS A 2007-03-29 Completed [facility] 00:00:00 [facility] HEPATITIS A 2007-03-29 Completed [facility] 00:00:00 [facility] HEPATITIS A 2007-03-29 Completed [facility] 00:00:00 [facility] HEPATITIS A 2007-03-29 Completed [facility] 00:00:00 [facility] HEPATITIS A 2007-03-29 Completed [facility] 00:00:00 [facility] HEPATITIS A 2007-03-29 Completed [facility] 00:00:00 [facility] HEPATITIS A 2007-03-29 Completed [facility] 00:00:00 [facility] HEPATITIS A 2007-03-29 Completed [facility] 00:00:00 [facility] HEPATITIS A 2007-03-29 Completed [facility] 00:00:00 [facility] HEPATITIS A 2007-03-29 Completed [facility] 00:00:00 [facility] HEPATITIS A 2007-03-29 Completed [facility] 00:00:00 [facility] HEPATITIS A 2007-03-29 Completed [facility] 00:00:00 [facility] HEPATITIS A 2007-03-29 Completed [facility] 00:00:00 [facility] HEPATITIS A 2007-03-29 Completed [facility] 00:00:00 [facility] HEPATITIS A 2007-03-29 Completed [facility] 00:00:00 [facility] HEPATITIS A 2007-03-29 Completed [facility] 00:00:00 [facility] HEPATITIS A 2007-03-29 Completed [facility] 00:00:00 [facility] HEPATITIS A 2007-03-29 Completed [facility] 00:00:00 [facility] HEPATITIS A 2007-03-29 Completed [facility] 00:00:00 [facility] HEPATITIS A 2007-03-29 Completed [facility] 00:00:00 [facility] HEPATITIS A 2007-03-29 Completed [facility] 00:00:00 [facility] HEPATITIS A 2007-03-29 Completed [facility] 00:00:00 [facility] HEPATITIS A 2007-03-29 Completed [facility] 00:00:00 [facility] HEPATITIS A 2007-03-29 Completed [facility] 00:00:00 [facility] HEPATITIS A 2007-03-29 Completed [facility] 00:00:00 [facility] HEPATITIS A 2007-03-29 Completed [facility] 00:00:00 [facility] HEPATITIS A 2007-03-29 Completed [facility] 00:00:00 [facility] HEPATITIS A 2007-03-29 Completed [facility] 00:00:00 [facility] HEPATITIS A 2007-03-29 Completed [facility] 00:00:00 [facility] HEPATITIS A 2007-03-29 Completed [facility] 00:00:00 [facility] HEPATITIS A 2007-03-29 Completed [facility] 00:00:00 [facility] HEPATITIS A 2007-03-29 Completed [facility] 00:00:00 [facility] HEPATITIS A 2007-03-29 Completed [facility] 00:00:00 [facility] HEPATITIS A 2007-03-29 Completed [facility] 00:00:00 [facility] HEPATITIS A 2007-03-29 Completed [facility] 00:00:00 [facility] HEPATITIS A 2007-03-29 Completed [facility] 00:00:00 [facility] HEPATITIS A 2007-03-29 Completed [facility] 00:00:00 [facility] HEPATITIS A 2007-03-29 Completed [facility] 00:00:00 [facility] HEPATITIS A 2007-03-29 Completed [facility] 00:00:00 [facility] HEPATITIS A 2007-03-29 Completed [facility] 00:00:00 [facility] HEPATITIS A 2007-03-29 Completed [facility] 00:00:00 [facility] HEPATITIS A 2007-03-29 Completed [facility] 00:00:00 [facility] HEPATITIS A 2007-03-29 Completed [facility] 00:00:00 [facility] HEPATITIS A 2007-03-29 Completed [facility] 00:00:00 [facility] HEPATITIS A 2007-03-29 Completed [facility] 00:00:00 [facility] HEPATITIS A 2007-03-29 Completed [facility] 00:00:00 [facility] HEPATITIS A 2007-03-29 Completed [facility] 00:00:00 [facility] HEPATITIS A 2007-03-29 Completed [facility] 00:00:00 [facility] HEPATITIS A 2007-03-29 Completed [facility] 00:00:00 [facility] HEPATITIS A 2007-03-29 Completed [facility] 00:00:00 [facility] HEPATITIS A 2007-03-29 Completed [facility] 00:00:00 [facility] HEPATITIS A 2007-03-29 Completed [facility] 00:00:00 [facility] HEPATITIS A 2007-03-29 Completed [facility] 00:00:00 [facility] HEPATITIS A 2007-03-29 Completed [facility] 00:00:00 [facility] HEPATITIS A 2007-03-29 Completed [facility] 00:00:00 [facility] HEPATITIS A 2007-03-29 Completed [facility] 00:00:00 [facility] HEPATITIS A 2007-03-29 Completed [facility] 00:00:00 [facility] HEPATITIS A 2007-03-29 Completed [facility] 00:00:00 [facility] HEPATITIS A 2007-03-29 Completed [facility] 00:00:00 [facility] HEPATITIS A 2007-03-29 Completed [facility] 00:00:00 [facility] HEPATITIS A 2007-03-29 Completed [facility] 00:00:00 [facility] HEPATITIS A 2007-03-29 Completed [facility] 00:00:00 [facility] HEPATITIS A 2007-03-29 Completed [facility] 00:00:00 [facility] HEPATITIS A 2007-03-29 Completed [facility] 00:00:00 [facility] HEPATITIS A 2007-03-29 Completed [facility] 00:00:00 [facility] HEPATITIS A 2007-03-29 Completed [facility] 00:00:00 [facility] HEPATITIS A 2007-03-29 Completed [facility] 00:00:00 [facility] HEPATITIS A 2007-03-29 Completed [facility] 00:00:00 [facility] HEPATITIS A 2007-03-29 Completed [facility] 00:00:00 [facility] HEPATITIS A 2007-03-29 Completed [facility] 00:00:00 [facility] HEPATITIS A 2007-03-29 Completed [facility] 00:00:00 [facility] HEPATITIS A 2007-03-29 Completed [facility] 00:00:00 [facility] HEPATITIS A 2007-03-29 Completed [facility] 00:00:00 [facility] HEPATITIS A 2007-03-29 Completed [facility] 00:00:00 [facility] HEPATITIS A 2007-03-29 Completed [facility] 00:00:00 [facility] HEPATITIS A 2007-03-29 Completed [facility] 00:00:00 [facility] HEPATITIS A 2007-03-29 Completed [facility] 00:00:00 [facility] HEPATITIS A 2007-03-29 Completed [facility] 00:00:00 [facility] HEPATITIS A 2007-03-29 Completed [facility] 00:00:00 [facility] HEPATITIS A 2007-03-29 Completed [facility] 00:00:00 [facility] HEPATITIS A 2007-03-29 Completed [facility] 00:00:00 [facility] HEPATITIS A 2007-03-29 Completed [facility] 00:00:00 [facility] HEPATITIS A 2007-03-29 Completed [facility] 00:00:00 [facility] HEPATITIS A 2007-03-29 Completed [facility] 00:00:00 [facility] HEPATITIS A 2007-03-29 Completed [facility] 00:00:00 [facility] HEPATITIS A 2007-03-29 Completed [facility] 00:00:00 [facility] HEPATITIS A 2007-03-29 Completed [facility] 00:00:00 [facility] HEPATITIS A 2007-03-29 Completed [facility] 00:00:00 [facility] HEPATITIS A 2007-03-29 Completed [facility] 00:00:00 [facility] HEPATITIS A 2007-03-29 Completed [facility] 00:00:00 [facility] HEPATITIS A 2007-03-29 Completed [facility] 00:00:00 [facility] HEPATITIS A 2007-03-29 Completed [facility] 00:00:00 [facility] HEPATITIS A 2007-03-29 Completed [facility] 00:00:00 [facility] HEPATITIS A 2007-03-29 Completed [facility] 00:00:00 [facility] HEPATITIS A 2007-03-29 Completed [facility] 00:00:00 [facility] HEPATITIS A 2007-03-29 Completed [facility] 00:00:00 [facility] HEPATITIS A 2007-03-29 Completed [facility] 00:00:00 [facility] HEPATITIS A 2007-03-29 Completed [facility] 00:00:00 [facility] HEPATITIS A 2007-03-29 Completed [facility] 00:00:00 [facility] HEPATITIS A 2007-03-29 Completed [facility] 00:00:00 [facility] HEPATITIS A 2007-03-29 Completed [facility] 00:00:00 [facility] HEPATITIS A 2007-03-29 Completed [facility] 00:00:00 [facility] HEPATITIS A 2007-03-29 Completed [facility] 00:00:00 [facility] HEPATITIS A 2007-03-29 Completed [facility] 00:00:00 [facility] HEPATITIS A 2007-03-29 Completed [facility] 00:00:00 [facility] HEPATITIS A 2007-03-29 Completed [facility] 00:00:00 [facility] HEPATITIS A 2007-03-29 Completed [facility] 00:00:00 [facility] HEPATITIS A 2007-03-29 Completed [facility] 00:00:00 [facility] HEPATITIS A 2007-03-29 Completed [facility] 00:00:00 [facility] HEPATITIS A 2007-03-29 Completed [facility] 00:00:00 [facility] HEPATITIS A 2007-03-29 Completed [facility] 00:00:00 [facility] HEPATITIS A 2007-03-29 Completed [facility] 00:00:00 [facility] HEPATITIS A 2007-03-29 Completed [facility] 00:00:00 [facility] Influenza Virus 2006-12-08 Completed [facility] Vaccine - Whole 00:00:00 [facility] Influenza Virus 2006-12-08 Completed [facility] Vaccine - Whole 00:00:00 [facility] Influenza Virus 2006-12-08 Completed [facility] Vaccine - Whole 00:00:00 [facility] Influenza Virus 2006-12-08 Completed [facility] Vaccine - Whole 00:00:00 [facility] Influenza Virus 2006-12-08 Completed [facility] Vaccine - Whole 00:00:00 [facility] Influenza Virus 2006-12-08 Completed [facility] Vaccine - Whole 00:00:00 [facility] Influenza Virus 2006-12-08 Completed [facility] Vaccine - Whole 00:00:00 [facility] Influenza Virus 2006-12-08 Completed [facility] Vaccine - Whole 00:00:00 [facility] Influenza Virus 2006-12-08 Completed [facility] Vaccine - Whole 00:00:00 [facility] Influenza Virus 2006-12-08 Completed [facility] Vaccine - Whole 00:00:00 [facility] Influenza Virus 2006-12-08 Completed [facility] Vaccine - Whole 00:00:00 [facility] Influenza Virus 2006-12-08 Completed [facility] Vaccine - Whole 00:00:00 [facility] Influenza Virus 2006-12-08 Completed [facility] Vaccine - Whole 00:00:00 [facility] Influenza Virus 2006-12-08 Completed [facility] Vaccine - Whole 00:00:00 [facility] Influenza Virus 2006-12-08 Completed [facility] Vaccine - Whole 00:00:00 [facility] Influenza Virus 2006-12-08 Completed [facility] Vaccine - Whole 00:00:00 [facility] Influenza Virus 2006-12-08 Completed [facility] Vaccine - Whole 00:00:00 [facility] Influenza Virus 2006-12-08 Completed [facility] Vaccine - Whole 00:00:00 [facility] Influenza Virus 2006-12-08 Completed [facility] Vaccine - Whole 00:00:00 [facility] Influenza Virus 2006-12-08 Completed [facility] Vaccine - Whole 00:00:00 [facility] Influenza Virus 2006-12-08 Completed [facility] Vaccine - Whole 00:00:00 [facility] Influenza Virus 2006-12-08 Completed [facility] Vaccine - Whole 00:00:00 [facility] Influenza Virus 2006-12-08 Completed [facility] Vaccine - Whole 00:00:00 [facility] Influenza Virus 2006-12-08 Completed [facility] Vaccine - Whole 00:00:00 [facility] Influenza Virus 2006-12-08 Completed [facility] Vaccine - Whole 00:00:00 [facility] Influenza Virus 2006-12-08 Completed [facility] Vaccine - Whole 00:00:00 [facility] Influenza Virus 2006-12-08 Completed [facility] Vaccine - Whole 00:00:00 [facility] Influenza Virus 2006-12-08 Completed [facility] Vaccine - Whole 00:00:00 [facility] Influenza Virus 2006-12-08 Completed [facility] Vaccine - Whole 00:00:00 [facility] Influenza Virus 2006-12-08 Completed [facility] Vaccine - Whole 00:00:00 [facility] Influenza Virus 2006-12-08 Completed [facility] Vaccine - Whole 00:00:00 [facility] Influenza Virus 2006-12-08 Completed [facility] Vaccine - Whole 00:00:00 [facility] Influenza Virus 2006-12-08 Completed [facility] Vaccine - Whole 00:00:00 [facility] Influenza Virus 2006-12-08 Completed [facility] Vaccine - Whole 00:00:00 [facility] Influenza Virus 2006-12-08 Completed [facility] Vaccine - Whole 00:00:00 [facility] Influenza Virus 2006-12-08 Completed [facility] Vaccine - Whole 00:00:00 [facility] Influenza Virus 2006-12-08 Completed [facility] Vaccine - Whole 00:00:00 [facility] Influenza Virus 2006-12-08 Completed [facility] Vaccine - Whole 00:00:00 [facility] Influenza Virus 2006-12-08 Completed [facility] Vaccine - Whole 00:00:00 [facility] Influenza Virus 2006-12-08 Completed [facility] Vaccine - Whole 00:00:00 [facility] Influenza Virus 2006-12-08 Completed [facility] Vaccine - Whole 00:00:00 [facility] Influenza Virus 2006-12-08 Completed [facility] Vaccine - Whole 00:00:00 [facility] Influenza Virus 2006-12-08 Completed [facility] Vaccine - Whole 00:00:00 [facility] Influenza Virus 2006-12-08 Completed [facility] Vaccine - Whole 00:00:00 [facility] Influenza Virus 2006-12-08 Completed [facility] Vaccine - Whole 00:00:00 [facility] Influenza Virus 2006-12-08 Completed [facility] Vaccine - Whole 00:00:00 [facility] Influenza Virus 2006-12-08 Completed [facility] Vaccine - Whole 00:00:00 [facility] Influenza Virus 2006-12-08 Completed [facility] Vaccine - Whole 00:00:00 [facility] Influenza Virus 2006-12-08 Completed [facility] Vaccine - Whole 00:00:00 [facility] Influenza Virus 2006-12-08 Completed [facility] Vaccine - Whole 00:00:00 [facility] Influenza Virus 2006-12-08 Completed [facility] Vaccine - Whole 00:00:00 [facility] Influenza Virus 2006-12-08 Completed [facility] Vaccine - Whole 00:00:00 [facility] Influenza Virus 2006-12-08 Completed [facility] Vaccine - Whole 00:00:00 [facility] Influenza Virus 2006-12-08 Completed [facility] Vaccine - Whole 00:00:00 [facility] Influenza Virus 2006-12-08 Completed [facility] Vaccine - Whole 00:00:00 [facility] Influenza Virus 2006-12-08 Completed [facility] Vaccine - Whole 00:00:00 [facility] Influenza Virus 2006-12-08 Completed [facility] Vaccine - Whole 00:00:00 [facility] Influenza Virus 2006-12-08 Completed [facility] Vaccine - Whole 00:00:00 [facility] Influenza Virus 2006-12-08 Completed [facility] Vaccine - Whole 00:00:00 [facility] Influenza Virus 2006-12-08 Completed [facility] Vaccine - Whole 00:00:00 [facility] Influenza Virus 2006-12-08 Completed [facility] Vaccine - Whole 00:00:00 [facility] Influenza Virus 2006-12-08 Completed [facility] Vaccine - Whole 00:00:00 [facility] Influenza Virus 2006-12-08 Completed [facility] Vaccine - Whole 00:00:00 [facility] Influenza Virus 2006-12-08 Completed [facility] Vaccine - Whole 00:00:00 [facility] Influenza Virus 2006-12-08 Completed [facility] Vaccine - Whole 00:00:00 [facility] Influenza Virus 2006-12-08 Completed [facility] Vaccine - Whole 00:00:00 [facility] Influenza Virus 2006-12-08 Completed [facility] Vaccine - Whole 00:00:00 [facility] Influenza Virus 2006-12-08 Completed [facility] Vaccine - Whole 00:00:00 [facility] Influenza Virus 2006-12-08 Completed [facility] Vaccine - Whole 00:00:00 [facility] Influenza Virus 2006-12-08 Completed [facility] Vaccine - Whole 00:00:00 [facility] Influenza Virus 2006-12-08 Completed [facility] Vaccine - Whole 00:00:00 [facility] Influenza Virus 2006-12-08 Completed [facility] Vaccine - Whole 00:00:00 [facility] Influenza Virus 2006-12-08 Completed [facility] Vaccine - Whole 00:00:00 [facility] Influenza Virus 2006-12-08 Completed [facility] Vaccine - Whole 00:00:00 [facility] Influenza Virus 2006-12-08 Completed [facility] Vaccine - Whole 00:00:00 [facility] Influenza Virus 2006-12-08 Completed [facility] Vaccine - Whole 00:00:00 [facility] Influenza Virus 2006-12-08 Completed [facility] Vaccine - Whole 00:00:00 [facility] Influenza Virus 2006-12-08 Completed [facility] Vaccine - Whole 00:00:00 [facility] Influenza Virus 2006-12-08 Completed [facility] Vaccine - Whole 00:00:00 [facility] Influenza Virus 2006-12-08 Completed [facility] Vaccine - Whole 00:00:00 [facility] Influenza Virus 2006-12-08 Completed [facility] Vaccine - Whole 00:00:00 [facility] Influenza Virus 2006-12-08 Completed [facility] Vaccine - Whole 00:00:00 [facility] Influenza Virus 2006-12-08 Completed [facility] Vaccine - Whole 00:00:00 [facility] Influenza Virus 2006-12-08 Completed [facility] Vaccine - Whole 00:00:00 [facility] Influenza Virus 2006-12-08 Completed [facility] Vaccine - Whole 00:00:00 [facility] Influenza Virus 2006-12-08 Completed [facility] Vaccine - Whole 00:00:00 [facility] HEPATITIS A 2006-09-24 Completed [facility] 00:00:00 [facility] HEPATITIS A 2006-09-24 Completed [facility] 00:00:00 [facility] HEPATITIS A 2006-09-24 Completed [facility] 00:00:00 [facility] HEPATITIS A 2006-09-24 Completed [facility] 00:00:00 [facility] HEPATITIS A 2006-09-24 Completed [facility] 00:00:00 [facility] HEPATITIS A 2006-09-24 Completed [facility] 00:00:00 [facility] HEPATITIS A 2006-09-24 Completed [facility] 00:00:00 [facility] HEPATITIS A 2006-09-24 Completed [facility] 00:00:00 [facility] HEPATITIS A 2006-09-24 Completed [facility] 00:00:00 [facility] HEPATITIS A 2006-09-24 Completed [facility] 00:00:00 [facility] HEPATITIS A 2006-09-24 Completed [facility] 00:00:00 [facility] HEPATITIS A 2006-09-24 Completed [facility] 00:00:00 [facility] HEPATITIS A 2006-09-24 Completed [facility] 00:00:00 [facility] HEPATITIS A 2006-09-24 Completed [facility] 00:00:00 [facility] HEPATITIS A 2006-09-24 Completed [facility] 00:00:00 [facility] HEPATITIS A 2006-09-24 Completed [facility] 00:00:00 [facility] HEPATITIS A 2006-09-24 Completed [facility] 00:00:00 [facility] HEPATITIS A 2006-09-24 Completed [facility] 00:00:00 [facility] HEPATITIS A 2006-09-24 Completed [facility] 00:00:00 [facility] HEPATITIS A 2006-09-24 Completed [facility] 00:00:00 [facility] HEPATITIS A 2006-09-24 Completed [facility] 00:00:00 [facility] HEPATITIS A 2006-09-24 Completed [facility] 00:00:00 [facility] HEPATITIS A 2006-09-24 Completed [facility] 00:00:00 [facility] HEPATITIS A 2006-09-24 Completed [facility] 00:00:00 [facility] HEPATITIS A 2006-09-24 Completed [facility] [...] HEPATITIS A 2006-09-24 Completed [facility] 00:00:00 [facility] HEPATITIS A 2006-09-24 Completed [facility] [...] HEPATITIS A 2006-09-24 Completed [facility] 00:00:00 [facility] HEPATITIS A 2006-09-24 Completed [facility] 00:00:00 [facility] HEPATITIS A 2006-09-24 Completed [facility] [...] HEPATITIS A 2006-09-24 Completed [facility] 00:00:00 [facility] HEPATITIS A 2006-09-24 Completed [facility] 00:00:00 [facility] HEPATITIS A 2006-09-24 Completed [facility] 00:00:00 [facility] HEPATITIS A 2006-09-24 Completed [facility] 00:00:00 [facility] HEPATITIS A 2006-09-24 Completed [facility] 00:00:00 [facility] HEPATITIS A 2006-09-24 Completed [facility] 00:00:00 [facility] HEPATITIS A 2006-09-24 Completed [facility] 00:00:00 [facility] HEPATITIS A 2006-09-24 Completed [facility] 00:00:00 [facility] HEPATITIS A 2006-09-24 Completed [facility] 00:00:00 [facility] HEPATITIS A 2006-09-24 Completed [facility] 00:00:00 [facility] HEPATITIS A 2006-09-24 Completed [facility] 00:00:00 [facility] HEPATITIS A 2006-09-24 Completed [facility] 00:00:00 [facility] HEPATITIS A 2006-09-24 Completed [facility] 00:00:00 [facility] HEPATITIS A 2006-09-24 Completed [facility] 00:00:00 [facility] HEPATITIS A 2006-09-24 Completed [facility] 00:00:00 [facility] HEPATITIS A 2006-09-24 Completed [facility] 00:00:00 [facility] HEPATITIS A 2006-09-24 Completed [facility] 00:00:00 [facility] HEPATITIS A 2006-09-24 Completed [facility] 00:00:00 [facility] HEPATITIS A 2006-09-24 Completed [facility] 00:00:00 [facility] HEPATITIS A 2006-09-24 Completed [facility] 00:00:00 [facility] HEPATITIS A 2006-09-24 Completed [facility] 00:00:00 [facility] HEPATITIS A 2006-09-24 Completed [facility] 00:00:00 [facility] HEPATITIS A 2006-09-24 Completed [facility] 00:00:00 [facility] HEPATITIS A 2006-09-24 Completed [facility] 00:00:00 [facility] HEPATITIS A 2006-09-24 Completed [facility] 00:00:00 [facility] HEPATITIS A 2006-09-24 Completed [facility] 00:00:00 [facility] HEPATITIS A 2006-09-24 Completed [facility] 00:00:00 [facility] HEPATITIS A 2006-09-24 Completed [facility] 00:00:00 [facility] HEPATITIS A 2006-09-24 Completed [facility] 00:00:00 [facility] HEPATITIS A 2006-09-24 Completed [facility] 00:00:00 [facility] HEPATITIS A 2006-09-24 Completed [facility] 00:00:00 [facility] HEPATITIS A 2006-09-24 Completed [facility] 00:00:00 [facility] HEPATITIS A 2006-09-24 Completed [facility] 00:00:00 [facility] HEPATITIS A 2006-09-24 Completed [facility] 00:00:00 [facility] HEPATITIS A 2006-09-24 Completed [facility] 00:00:00 [facility] HEPATITIS A 2006-09-24 Completed [facility] 00:00:00 [facility] HEPATITIS A 2006-09-24 Completed [facility] 00:00:00 [facility] HEPATITIS A 2006-09-24 Completed [facility] 00:00:00 [facility] HEPATITIS A 2006-09-24 Completed [facility] 00:00:00 [facility] HEPATITIS A 2006-09-24 Completed [facility] 00:00:00 [facility] HEPATITIS A 2006-09-24 Completed [facility] 00:00:00 [facility] HEPATITIS A 2006-09-24 Completed [facility] 00:00:00 [facility] HEPATITIS A 2006-09-24 Completed [facility] 00:00:00 [facility] HEPATITIS A 2006-09-24 Completed [facility] 00:00:00 [facility] HEPATITIS A 2006-09-24 Completed [facility] 00:00:00 [facility] HEPATITIS A 2006-09-24 Completed [facility] 00:00:00 [facility] HEPATITIS A 2006-09-24 Completed [facility] 00:00:00 [facility] HEPATITIS A 2006-09-24 Completed [facility] 00:00:00 [facility] HEPATITIS A 2006-09-24 Completed [facility] 00:00:00 [facility] HEPATITIS A 2006-09-24 Completed [facility] 00:00:00 [facility] Polio (IPV/OPV) 2004-05-07 Completed [facility] 00:00:00 [facility] DTAP 2004-05-07 Completed [facility] 00:00:00 [facility] MMR 2004-05-07 Completed [facility] 00:00:00 [facility] Polio (IPV/OPV) 2004-05-07 Completed [facility] 00:00:00 [facility] DTAP 2004-05-07 Completed [facility] 00:00:00 [facility] MMR 2004-05-07 Completed [facility] 00:00:00 [facility] MMR 2004-05-07 Completed [facility] 00:00:00 [facility] Polio (IPV/OPV) 2004-05-07 Completed [facility] 00:00:00 [facility] DTAP 2004-05-07 Completed [facility] 00:00:00 [facility] MMR 2004-05-07 Completed [facility] 00:00:00 [facility] Polio (IPV/OPV) 2004-05-07 Completed [facility] 00:00:00 [facility] Polio (IPV/OPV) 2004-05-07 Completed [facility] 00:00:00 [facility] DTAP 2004-05-07 Completed [facility] 00:00:00 [facility] MMR 2004-05-07 Completed [facility] 00:00:00 [facility] Polio (IPV/OPV) 2004-05-07 Completed [facility] 00:00:00 [facility] DTAP 2004-05-07 Completed [facility] 00:00:00 [facility] MMR 2004-05-07 Completed [facility] 00:00:00 [facility] Polio (IPV/OPV) 2004-05-07 Completed [facility] 00:00:00 [facility] DTAP 2004-05-07 Completed [facility] 00:00:00 [facility] MMR 2004-05-07 Completed [facility] 00:00:00 [facility] Polio (IPV/OPV) 2004-05-07 Completed [facility] 00:00:00 [facility] DTAP 2004-05-07 Completed [facility] 00:00:00 [facility] MMR 2004-05-07 Completed [facility] 00:00:00 [facility] Polio (IPV/OPV) 2004-05-07 Completed [facility] 00:00:00 [facility] DTAP 2004-05-07 Completed [facility] 00:00:00 [facility] MMR 2004-05-07 Completed [facility] 00:00:00 [facility] Polio (IPV/OPV) 2004-05-07 Completed [facility] 00:00:00 [facility] DTAP 2004-05-07 Completed [facility] 00:00:00 [facility] MMR 2004-05-07 Completed [facility] 00:00:00 [facility] Polio (IPV/OPV) 2004-05-07 Completed [facility] 00:00:00 [facility] DTAP 2004-05-07 Completed [facility] 00:00:00 [facility] MMR 2004-05-07 Completed [facility] 00:00:00 [facility] Polio (IPV/OPV) 2004-05-07 Completed [facility] 00:00:00 [facility] DTAP 2004-05-07 Completed [facility] 00:00:00 [facility] DTAP 2004-05-07 Completed [facility] 00:00:00 [facility] MMR 2004-05-07 Completed [facility] 00:00:00 [facility] Polio (IPV/OPV) 2004-05-07 Completed [facility] 00:00:00 [facility] DTAP 2004-05-07 Completed [facility] 00:00:00 [facility] MMR 2004-05-07 Completed [facility] 00:00:00 [facility] Polio (IPV/OPV) 2004-05-07 Completed [facility] 00:00:00 [facility] DTAP 2004-05-07 Completed [facility] 00:00:00 [facility] MMR 2004-05-07 Completed [facility] 00:00:00 [facility] Polio (IPV/OPV) 2004-05-07 Completed [facility] 00:00:00 [facility] DTAP 2004-05-07 Completed [facility] 00:00:00 [facility] MMR 2004-05-07 Completed [facility] 00:00:00 [facility] MMR 2004-05-07 Completed [facility] 00:00:00 [facility] Polio (IPV/OPV) 2004-05-07 Completed [facility] 00:00:00 [facility] DTAP 2004-05-07 Completed [facility] 00:00:00 [facility] MMR 2004-05-07 Completed [facility] 00:00:00 [facility] Polio (IPV/OPV) 2004-05-07 Completed [facility] 00:00:00 [facility] Polio (IPV/OPV) 2004-05-07 Completed [facility] 00:00:00 [facility] DTAP 2004-05-07 Completed [facility] 00:00:00 [facility] MMR 2004-05-07 Completed [facility] 00:00:00 [facility] Polio (IPV/OPV) 2004-05-07 Completed [facility] 00:00:00 [facility] DTAP 2004-05-07 Completed [facility] 00:00:00 [facility] MMR 2004-05-07 Completed [facility] 00:00:00 [facility] Polio (IPV/OPV) 2004-05-07 Completed [facility] 00:00:00 [facility] DTAP 2004-05-07 Completed [facility] 00:00:00 [facility] MMR 2004-05-07 Completed [facility] 00:00:00 [facility] Polio (IPV/OPV) 2004-05-07 Completed [facility] 00:00:00 [facility] DTAP 2004-05-07 Completed [facility] 00:00:00 [facility] MMR 2004-05-07 Completed [facility] 00:00:00 [facility] Polio (IPV/OPV) 2004-05-07 Completed [facility] 00:00:00 [facility] DTAP 2004-05-07 Completed [facility] 00:00:00 [facility] MMR 2004-05-07 Completed [facility] 00:00:00 [facility] Polio (IPV/OPV) 2004-05-07 Completed [facility] 00:00:00 [facility] DTAP 2004-05-07 Completed [facility] 00:00:00 [facility] MMR 2004-05-07 Completed [facility] 00:00:00 [facility] Polio (IPV/OPV) 2004-05-07 Completed [facility] 00:00:00 [facility] DTAP 2004-05-07 Completed [facility] 00:00:00 [facility] DTAP 2004-05-07 Completed [facility] 00:00:00 [facility] MMR 2004-05-07 Completed [facility] 00:00:00 [facility] Polio (IPV/OPV) 2004-05-07 Completed [facility] 00:00:00 [facility] DTAP 2004-05-07 Completed [facility] 00:00:00 [facility] MMR 2004-05-07 Completed [facility] 00:00:00 [facility] Polio (IPV/OPV) 2004-05-07 Completed [facility] 00:00:00 [facility] DTAP 2004-05-07 Completed [facility] 00:00:00 [facility] MMR 2004-05-07 Completed [facility] 00:00:00 [facility] MMR 2004-05-07 Completed [facility] 00:00:00 [facility] Polio (IPV/OPV) 2004-05-07 Completed [facility] 00:00:00 [facility] DTAP 2004-05-07 Completed [facility] 00:00:00 [facility] MMR 2004-05-07 Completed [facility] 00:00:00 [facility] Polio (IPV/OPV) 2004-05-07 Completed [facility] 00:00:00 [facility] DTAP 2004-05-07 Completed [facility] 00:00:00 [facility] Polio (IPV/OPV) 2004-05-07 Completed [facility] 00:00:00 [facility] MMR 2004-05-07 Completed [facility] 00:00:00 [facility] Polio (IPV/OPV) 2004-05-07 Completed [facility] 00:00:00 [facility] DTAP 2004-05-07 Completed [facility] 00:00:00 [facility] MMR 2004-05-07 Completed [facility] 00:00:00 [facility] Polio (IPV/OPV) 2004-05-07 Completed [facility] 00:00:00 [facility] DTAP 2004-05-07 Completed [facility] 00:00:00 [facility] MMR 2004-05-07 Completed [facility] 00:00:00 [facility] Polio (IPV/OPV) 2004-05-07 Completed [facility] 00:00:00 [facility] DTAP 2004-05-07 Completed [facility] 00:00:00 [facility] MMR 2004-05-07 Completed [facility] 00:00:00 [facility] Polio (IPV/OPV) 2004-05-07 Completed [facility] 00:00:00 [facility] DTAP 2004-05-07 Completed [facility] 00:00:00 [facility] DTAP 2004-05-07 Completed [facility] 00:00:00 [facility] MMR 2004-05-07 Completed [facility] 00:00:00 [facility] Polio (IPV/OPV) 2004-05-07 Completed [facility] 00:00:00 [facility] DTAP 2004-05-07 Completed [facility] 00:00:00 [facility] MMR 2004-05-07 Completed [facility] 00:00:00 [facility] Polio (IPV/OPV) 2004-05-07 Completed [facility] 00:00:00 [facility] DTAP 2004-05-07 Completed [facility] 00:00:00 [facility] MMR 2004-05-07 Completed [facility] 00:00:00 [facility] Polio (IPV/OPV) 2004-05-07 Completed [facility] 00:00:00 [facility] MMR 2004-05-07 Completed [facility] 00:00:00 [facility] DTAP 2004-05-07 Completed [facility] 00:00:00 [facility] MMR 2004-05-07 Completed [facility] 00:00:00 [facility] Polio (IPV/OPV) 2004-05-07 Completed [facility] 00:00:00 [facility] DTAP 2004-05-07 Completed [facility] 00:00:00 [facility] Polio (IPV/OPV) 2004-05-07 Completed [facility] 00:00:00 [facility] MMR 2004-05-07 Completed [facility] 00:00:00 [facility] Polio (IPV/OPV) 2004-05-07 Completed [facility] 00:00:00 [facility] DTAP 2004-05-07 Completed [facility] 00:00:00 [facility] MMR 2004-05-07 Completed [facility] 00:00:00 [facility] Polio (IPV/OPV) 2004-05-07 Completed [facility] 00:00:00 [facility] DTAP 2004-05-07 Completed [facility] 00:00:00 [facility] MMR 2004-05-07 Completed [facility] 00:00:00 [facility] Polio (IPV/OPV) 2004-05-07 Completed [facility] 00:00:00 [facility] DTAP 2004-05-07 Completed [facility] 00:00:00 [facility] MMR 2004-05-07 Completed [facility] 00:00:00 [facility] Polio (IPV/OPV) 2004-05-07 Completed [facility] 00:00:00 [facility] DTAP 2004-05-07 Completed [facility] 00:00:00 [facility] MMR 2004-05-07 Completed [facility] 00:00:00 [facility] Polio (IPV/OPV) 2004-05-07 Completed [facility] 00:00:00 [facility] DTAP 2004-05-07 Completed [facility] 00:00:00 [facility] DTAP 2004-05-07 Completed [facility] 00:00:00 [facility] MMR 2004-05-07 Completed [facility] 00:00:00 [facility] Polio (IPV/OPV) 2004-05-07 Completed [facility] 00:00:00 [facility] DTAP 2004-05-07 Completed [facility] 00:00:00 [facility] MMR 2004-05-07 Completed [facility] 00:00:00 [facility] Polio (IPV/OPV) 2004-05-07 Completed [facility] 00:00:00 [facility] DTAP 2004-05-07 Completed [facility] 00:00:00 [facility] MMR 2004-05-07 Completed [facility] 00:00:00 [facility] MMR 2004-05-07 Completed [facility] 00:00:00 [facility] Polio (IPV/OPV) 2004-05-07 Completed [facility] 00:00:00 [facility] DTAP 2004-05-07 Completed [facility] 00:00:00 [facility] MMR 2004-05-07 Completed [facility] 00:00:00 [facility] Polio (IPV/OPV) 2004-05-07 Completed [facility] 00:00:00 [facility] Polio (IPV/OPV) 2004-05-07 Completed [facility] 00:00:00 [facility] DTAP 2004-05-07 Completed [facility] 00:00:00 [facility] MMR 2004-05-07 Completed [facility] 00:00:00 [facility] Polio (IPV/OPV) 2004-05-07 Completed [facility] 00:00:00 [facility] DTAP 2004-05-07 Completed [facility] 00:00:00 [facility] MMR 2004-05-07 Completed [facility] 00:00:00 [facility] Polio (IPV/OPV) 2004-05-07 Completed [facility] 00:00:00 [facility] DTAP 2004-05-07 Completed [facility] 00:00:00 [facility] MMR 2004-05-07 Completed [facility] 00:00:00 [facility] Polio (IPV/OPV) 2004-05-07 Completed [facility] 00:00:00 [facility] DTAP 2004-05-07 Completed [facility] 00:00:00 [facility] MMR 2004-05-07 Completed [facility] 00:00:00 [facility] Polio (IPV/OPV) 2004-05-07 Completed [facility] 00:00:00 [facility] DTAP 2004-05-07 Completed [facility] 00:00:00 [facility] DTAP 2004-05-07 Completed [facility] 00:00:00 [facility] MMR 2004-05-07 Completed [facility] 00:00:00 [facility] Polio (IPV/OPV) 2004-05-07 Completed [facility] 00:00:00 [facility] DTAP 2004-05-07 Completed [facility] 00:00:00 [facility] MMR 2004-05-07 Completed [facility] 00:00:00 [facility] Polio (IPV/OPV) 2004-05-07 Completed [facility] 00:00:00 [facility] MMR 2004-05-07 Completed [facility] 00:00:00 [facility] DTAP 2004-05-07 Completed [facility] 00:00:00 [facility] MMR 2004-05-07 Completed [facility] 00:00:00 [facility] Polio (IPV/OPV) 2004-05-07 Completed [facility] 00:00:00 [facility] Polio (IPV/OPV) 2004-05-07 Completed [facility] 00:00:00 [facility] DTAP 2004-05-07 Completed [facility] 00:00:00 [facility] MMR 2004-05-07 Completed [facility] 00:00:00 [facility] Polio (IPV/OPV) 2004-05-07 Completed [facility] 00:00:00 [facility] DTAP 2004-05-07 Completed [facility] 00:00:00 [facility] MMR 2004-05-07 Completed [facility] 00:00:00 [facility] Polio (IPV/OPV) 2004-05-07 Completed [facility] 00:00:00 [facility] DTAP 2004-05-07 Completed [facility] 00:00:00 [facility] MMR 2004-05-07 Completed [facility] 00:00:00 [facility] Polio (IPV/OPV) 2004-05-07 Completed [facility] 00:00:00 [facility] DTAP 2004-05-07 Completed [facility] 00:00:00 [facility] MMR 2004-05-07 Completed [facility] 00:00:00 [facility] Polio (IPV/OPV) 2004-05-07 Completed [facility] 00:00:00 [facility] DTAP 2004-05-07 Completed [facility] 00:00:00 [facility] MMR 2004-05-07 Completed [facility] 00:00:00 [facility] Polio (IPV/OPV) 2004-05-07 Completed [facility] 00:00:00 [facility] DTAP 2004-05-07 Completed [facility] 00:00:00 [facility] DTAP 2004-05-07 Completed [facility] 00:00:00 [facility] MMR 2004-05-07 Completed [facility] 00:00:00 [facility] Polio (IPV/OPV) 2004-05-07 Completed [facility] 00:00:00 [facility] DTAP 2004-05-07 Completed [facility] 00:00:00 [facility] MMR 2004-05-07 Completed [facility] 00:00:00 [facility] Polio (IPV/OPV) 2004-05-07 Completed [facility] 00:00:00 [facility] DTAP 2004-05-07 Completed [facility] 00:00:00 [facility] MMR 2004-05-07 Completed [facility] 00:00:00 [facility] MMR 2004-05-07 Completed [facility] 00:00:00 [facility] Polio (IPV/OPV) 2004-05-07 Completed [facility] 00:00:00 [facility] DTAP 2004-05-07 Completed [facility] 00:00:00 [facility] MMR 2004-05-07 Completed [facility] 00:00:00 [facility] Polio (IPV/OPV) 2004-05-07 Completed [facility] 00:00:00 [facility] Polio (IPV/OPV) 2004-05-07 Completed [facility] 00:00:00 [facility] DTAP 2004-05-07 Completed [facility] 00:00:00 [facility] MMR 2004-05-07 Completed [facility] 00:00:00 [facility] Polio (IPV/OPV) 2004-05-07 Completed [facility] 00:00:00 [facility] DTAP 2004-05-07 Completed [facility] 00:00:00 [facility] MMR 2004-05-07 Completed [facility] 00:00:00 [facility] Polio (IPV/OPV) 2004-05-07 Completed [facility] 00:00:00 [facility] DTAP 2004-05-07 Completed [facility] 00:00:00 [facility] MMR 2004-05-07 Completed [facility] 00:00:00 [facility] Polio (IPV/OPV) 2004-05-07 Completed [facility] 00:00:00 [facility] DTAP 2004-05-07 Completed [facility] 00:00:00 [facility] MMR 2004-05-07 Completed [facility] 00:00:00 [facility] Polio (IPV/OPV) 2004-05-07 Completed [facility] 00:00:00 [facility] DTAP 2004-05-07 Completed [facility] 00:00:00 [facility] MMR 2004-05-07 Completed [facility] 00:00:00 [facility] Polio (IPV/OPV) 2004-05-07 Completed [facility] 00:00:00 [facility] DTAP 2004-05-07 Completed [facility] 00:00:00 [facility] DTAP 2004-05-07 Completed [facility] 00:00:00 [facility] MMR 2004-05-07 Completed [facility] 00:00:00 [facility] Polio (IPV/OPV) 2004-05-07 Completed [facility] 00:00:00 [facility] DTAP 2004-05-07 Completed [facility] 00:00:00 [facility] MMR 2004-05-07 Completed [facility] 00:00:00 [facility] Polio (IPV/OPV) 2004-05-07 Completed [facility] 00:00:00 [facility] DTAP 2004-05-07 Completed [facility] 00:00:00 [facility] MMR 2004-05-07 Completed [facility] 00:00:00 [facility] Polio (IPV/OPV) 2004-05-07 Completed [facility] 00:00:00 [facility] MMR 2004-05-07 Completed [facility] 00:00:00 [facility] DTAP 2004-05-07 Completed [facility] 00:00:00 [facility] MMR 2004-05-07 Completed [facility] 00:00:00 [facility] Polio (IPV/OPV) 2004-05-07 Completed [facility] 00:00:00 [facility] Polio (IPV/OPV) 2004-05-07 Completed [facility] 00:00:00 [facility] DTAP 2004-05-07 Completed [facility] 00:00:00 [facility] MMR 2004-05-07 Completed [facility] 00:00:00 [facility] Polio (IPV/OPV) 2004-05-07 Completed [facility] 00:00:00 [facility] DTAP 2004-05-07 Completed [facility] 00:00:00 [facility] MMR 2004-05-07 Completed [facility] 00:00:00 [facility] Polio (IPV/OPV) 2004-05-07 Completed [facility] 00:00:00 [facility] DTAP 2004-05-07 Completed [facility] 00:00:00 [facility] MMR 2004-05-07 Completed [facility] 00:00:00 [facility] Polio (IPV/OPV) 2004-05-07 Completed [facility] 00:00:00 [facility] DTAP 2004-05-07 Completed [facility] 00:00:00 [facility] MMR 2004-05-07 Completed [facility] 00:00:00 [facility] Polio (IPV/OPV) 2004-05-07 Completed [facility] 00:00:00 [facility] DTAP 2004-05-07 Completed [facility] 00:00:00 [facility] DTAP 2004-05-07 Completed [facility] 00:00:00 [facility] MMR 2004-05-07 Completed [facility] 00:00:00 [facility] Polio (IPV/OPV) 2004-05-07 Completed [facility] 00:00:00 [facility] DTAP 2004-05-07 Completed [facility] 00:00:00 [facility] MMR 2004-05-07 Completed [facility] 00:00:00 [facility] Polio (IPV/OPV) 2004-05-07 Completed [facility] 00:00:00 [facility] DTAP 2004-05-07 Completed [facility] 00:00:00 [facility] MMR 2004-05-07 Completed [facility] 00:00:00 [facility] Polio (IPV/OPV) 2004-05-07 Completed [facility] 00:00:00 [facility] MMR 2004-05-07 Completed [facility] 00:00:00 [facility] DTAP 2004-05-07 Completed [facility] 00:00:00 [facility] MMR 2004-05-07 Completed [facility] 00:00:00 [facility] Polio (IPV/OPV) 2004-05-07 Completed [facility] 00:00:00 [facility] Polio (IPV/OPV) 2004-05-07 Completed [facility] 00:00:00 [facility] DTAP 2004-05-07 Completed [facility] 00:00:00 [facility] MMR 2004-05-07 Completed [facility] 00:00:00 [facility] Polio (IPV/OPV) 2004-05-07 Completed [facility] 00:00:00 [facility] DTAP 2004-05-07 Completed [facility] 00:00:00 [facility] MMR 2004-05-07 Completed [facility] 00:00:00 [facility] Polio (IPV/OPV) 2004-05-07 Completed [facility] 00:00:00 [facility] DTAP 2004-05-07 Completed [facility] 00:00:00 [facility] MMR 2004-05-07 Completed [facility] 00:00:00 [facility] Polio (IPV/OPV) 2004-05-07 Completed [facility] 00:00:00 [facility] DTAP 2004-05-07 Completed [facility] 00:00:00 [facility] MMR 2004-05-07 Completed [facility] 00:00:00 [facility] Polio (IPV/OPV) 2004-05-07 Completed [facility] 00:00:00 [facility] DTAP 2004-05-07 Completed [facility] 00:00:00 [facility] MMR 2004-05-07 Completed [facility] 00:00:00 [facility] Polio (IPV/OPV) 2004-05-07 Completed [facility] 00:00:00 [facility] DTAP 2004-05-07 Completed [facility] 00:00:00 [facility] DTAP 2004-05-07 Completed [facility] 00:00:00 [facility] MMR 2004-05-07 Completed [facility] 00:00:00 [facility] Polio (IPV/OPV) 2004-05-07 Completed [facility] 00:00:00 [facility] DTAP 2004-05-07 Completed [facility] 00:00:00 [facility] MMR 2004-05-07 Completed [facility] 00:00:00 [facility] Polio (IPV/OPV) 2004-05-07 Completed [facility] 00:00:00 [facility] MMR 2004-05-07 Completed [facility] 00:00:00 [facility] DTAP 2004-05-07 Completed [facility] 00:00:00 [facility] MMR 2004-05-07 Completed [facility] 00:00:00 [facility] Polio (IPV/OPV) 2004-05-07 Completed [facility] 00:00:00 [facility] Polio (IPV/OPV) 2004-05-07 Completed [facility] 00:00:00 [facility] DTAP 2004-05-07 Completed [facility] 00:00:00 [facility] MMR 2004-05-07 Completed [facility] 00:00:00 [facility] Polio (IPV/OPV) 2004-05-07 Completed [facility] 00:00:00 [facility] DTAP 2004-05-07 Completed [facility] 00:00:00 [facility] MMR 2004-05-07 Completed [facility] 00:00:00 [facility] Polio (IPV/OPV) 2004-05-07 Completed [facility] 00:00:00 [facility] DTAP 2004-05-07 Completed [facility] 00:00:00 [facility] MMR 2004-05-07 Completed [facility] 00:00:00 [facility] Polio (IPV/OPV) 2004-05-07 Completed [facility] 00:00:00 [facility] DTAP 2004-05-07 Completed [facility] 00:00:00 [facility] MMR 2004-05-07 Completed [facility] 00:00:00 [facility] Polio (IPV/OPV) 2004-05-07 Completed [facility] 00:00:00 [facility] DTAP 2004-05-07 Completed [facility] 00:00:00 [facility] DTAP 2004-05-07 Completed [facility] 00:00:00 [facility] MMR 2004-05-07 Completed [facility] 00:00:00 [facility] Polio (IPV/OPV) 2004-05-07 Completed [facility] 00:00:00 [facility] DTAP 2004-05-07 Completed [facility] 00:00:00 [facility] DTAP 2004-05-07 Completed [facility] 00:00:00 [facility] MMR 2004-05-07 Completed [facility] 00:00:00 [facility] Polio (IPV/OPV) 2004-05-07 Completed [facility] 00:00:00 [facility] DTAP 2004-05-07 Completed [facility] 00:00:00 [facility] MMR 2004-05-07 Completed [facility] 00:00:00 [facility] Polio (IPV/OPV) 2004-05-07 Completed [facility] 00:00:00 [facility] DTAP 2004-05-07 Completed [facility] 00:00:00 [facility] MMR 2004-05-07 Completed [facility] 00:00:00 [facility] MMR 2004-05-07 Completed [facility] 00:00:00 [facility] Polio (IPV/OPV) 2004-05-07 Completed [facility] 00:00:00 [facility] DTAP 2004-05-07 Completed [facility] 00:00:00 [facility] MMR 2004-05-07 Completed [facility] 00:00:00 [facility] Polio (IPV/OPV) 2004-05-07 Completed [facility] 00:00:00 [facility] Polio (IPV/OPV) 2004-05-07 Completed [facility] 00:00:00 [facility] DTAP 2004-05-07 Completed [facility] 00:00:00 [facility] MMR 2004-05-07 Completed [facility] 00:00:00 [facility] Polio (IPV/OPV) 2004-05-07 Completed [facility] 00:00:00 [facility] DTAP 2004-05-07 Completed [facility] 00:00:00 [facility] MMR 2004-05-07 Completed [facility] 00:00:00 [facility] Polio (IPV/OPV) 2004-05-07 Completed [facility] 00:00:00 [facility] DTAP 2004-05-07 Completed [facility] 00:00:00 [facility] MMR 2004-05-07 Completed [facility] 00:00:00 [facility] Polio (IPV/OPV) 2004-05-07 Completed [facility] 00:00:00 [facility] DTAP 2004-05-07 Completed [facility] 00:00:00 [facility] MMR 2004-05-07 Completed [facility] 00:00:00 [facility] Polio (IPV/OPV) 2004-05-07 Completed [facility] 00:00:00 [facility] DTAP 2004-05-07 Completed [facility] 00:00:00 [facility] DTAP 2004-05-07 Completed [facility] 00:00:00 [facility] MMR 2004-05-07 Completed [facility] 00:00:00 [facility] Polio (IPV/OPV) 2004-05-07 Completed [facility] 00:00:00 [facility] DTAP 2004-05-07 Completed [facility] 00:00:00 [facility] MMR 2004-05-07 Completed [facility] 00:00:00 [facility] Polio (IPV/OPV) 2004-05-07 Completed [facility] 00:00:00 [facility] DTAP 2004-05-07 Completed [facility] 00:00:00 [facility] MMR 2004-05-07 Completed [facility] 00:00:00 [facility] MMR 2004-05-07 Completed [facility] 00:00:00 [facility] Polio (IPV/OPV) 2004-05-07 Completed [facility] 00:00:00 [facility] DTAP 2004-05-07 Completed [facility] 00:00:00 [facility] MMR 2004-05-07 Completed [facility] 00:00:00 [facility] Polio (IPV/OPV) 2004-05-07 Completed [facility] 00:00:00 [facility] Polio (IPV/OPV) 2004-05-07 Completed [facility] 00:00:00 [facility] DTAP 2004-05-07 Completed [facility] 00:00:00 [facility] MMR 2004-05-07 Completed [facility] 00:00:00 [facility] Polio (IPV/OPV) 2004-05-07 Completed [facility] 00:00:00 [facility] DTAP 2004-05-07 Completed [facility] 00:00:00 [facility] MMR 2004-05-07 Completed [facility] 00:00:00 [facility] Polio (IPV/OPV) 2004-05-07 Completed [facility] 00:00:00 [facility] DTAP 2004-05-07 Completed [facility] 00:00:00 [facility] MMR 2004-05-07 Completed [facility] 00:00:00 [facility] Polio (IPV/OPV) 2004-05-07 Completed [facility] 00:00:00 [facility] DTAP 2004-05-07 Completed [facility] 00:00:00 [facility] MMR 2004-05-07 Completed [facility] 00:00:00 [facility] Polio (IPV/OPV) 2004-05-07 Completed [facility] 00:00:00 [facility] DTAP 2004-05-07 Completed [facility] 00:00:00 [facility] MMR 2004-05-07 Completed [facility] 00:00:00 [facility] Polio (IPV/OPV) 2004-05-07 Completed [facility] 00:00:00 [facility] DTAP 2004-05-07 Completed [facility] 00:00:00 [facility] MMR 2004-05-07 Completed [facility] 00:00:00 [facility] Polio (IPV/OPV) 2004-05-07 Completed [facility] 00:00:00 [facility] DTAP 2004-05-07 Completed [facility] 00:00:00 [facility] MMR 2004-05-07 Completed [facility] 00:00:00 [facility] Polio (IPV/OPV) 2004-05-07 Completed [facility] 00:00:00 [facility] DTAP 2004-05-07 Completed [facility] 00:00:00 [facility] MMR 2004-05-07 Completed [facility] 00:00:00 [facility] Polio (IPV/OPV) 2004-05-07 Completed [facility] 00:00:00 [facility] DTAP 2004-05-07 Completed [facility] 00:00:00 [facility] DTAP 2004-05-07 Completed [facility] 00:00:00 [facility] MMR 2004-05-07 Completed [facility] 00:00:00 [facility] Polio (IPV/OPV) 2004-05-07 Completed [facility] 00:00:00 [facility] DTAP 2004-05-07 Completed [facility] 00:00:00 [facility] MMR 2004-05-07 Completed [facility] 00:00:00 [facility] Polio (IPV/OPV) 2004-05-07 Completed [facility] 00:00:00 [facility] DTAP 2004-05-07 Completed [facility] 00:00:00 [facility] MMR 2004-05-07 Completed [facility] 00:00:00 [facility] Polio (IPV/OPV) 2004-05-07 Completed [facility] 00:00:00 [facility] MMR 2004-05-07 Completed [facility] 00:00:00 [facility] DTAP 2004-05-07 Completed [facility] 00:00:00 [facility] MMR 2004-05-07 Completed [facility] 00:00:00 [facility] MMR 2004-05-07 Completed [facility] 00:00:00 [facility] Polio (IPV/OPV) 2004-05-07 Completed [facility] 00:00:00 [facility] Polio (IPV/OPV) 2004-05-07 Completed [facility] [facility] DTAP 2004-05-07 Completed [facility] 00:00:00 [facility] MMR 2004-05-07 Completed [facility] 00:00:00 [facility] Polio (IPV/OPV) 2004-05-07 Completed [facility] 00:00:00 [facility] Polio (IPV/OPV) 2004-05-07 Completed [facility] 00:00:00 [facility] DTAP 2004-05-07 Completed [facility] 00:00:00 [facility] MMR 2004-05-07 Completed [facility] 00:00:00 [facility] Polio (IPV/OPV) 2004-05-07 Completed [facility] 00:00:00 [facility] DTAP 2004-05-07 Completed [facility] 00:00:00 [facility] MMR 2004-05-07 Completed [facility] 00:00:00 [facility] Polio (IPV/OPV) 2004-05-07 Completed [facility] 00:00:00 [facility] DTAP 2004-05-07 Completed [facility] 00:00:00 [facility] MMR 2004-05-07 Completed [facility] 00:00:00 [facility] Polio (IPV/OPV) 2004-05-07 Completed [facility] 00:00:00 [facility] DTAP 2004-05-07 Completed [facility] 00:00:00 [facility] MMR 2004-05-07 Completed [facility] 00:00:00 [facility] Polio (IPV/OPV) 2004-05-07 Completed [facility] 00:00:00 [facility] DTAP 2004-05-07 Completed [facility] 00:00:00 [facility] MMR 2004-05-07 Completed [facility] 00:00:00 [facility] Polio (IPV/OPV) 2004-05-07 Completed [facility] 00:00:00 [facility] DTAP 2004-05-07 Completed [facility] 00:00:00 [facility] DTAP 2004-05-07 Completed [facility] 00:00:00 [facility] MMR 2004-05-07 Completed [facility] 00:00:00 [facility] HIB 4 Dose Schedule 2001-10-27 [...] Schedule 2001-10-27 Completed Unive rs[facility] 00:00:00 [facility] 2001-07-30 Completed [facility] 00:00:00 [facility] Pneumococcal 7 2001-07-30 Completed [facility] of Conjugate, PCV7 00:00:00 [place] [facility] 2001-07-30 Completed [facility] 00:00:00 [facility] 2001-07-30 Completed [facility] 00:00:00 [facility] Pneumococcal 7 2001-07-30 Completed [facility] Conjugate, PCV7 00:00:00 [place] [facility] (Pre[facility]ar[facility] Pneumococcal 7 2001-07-30 Completed [facility] Conjugate, PCV7 00:00:00 [place] [facility] 2001-07-30 Completed [facility] 00:00:00 [facility] Pneumococcal 7 2001-07-30 Completed [facility] Conjugate, PCV7 00:00:00 [place] [facility] 2001-07-30 Completed [facility] 00:00:00 [facility] Pneumococcal 7 2001-07-30 Completed [facility] Conjugate, PCV7 00:00:00 [place] [facility] 2001-07-30 Completed [facility] 00:00:00 [facility] Pneumococcal 7 2001-07-30 Completed [facility] Conjugate, PCV7 00:00:00 [place] [facility] 2001-07-30 Completed [facility] 00:00:00 [facility] Pneumococcal 7 2001-07-30 Completed [facility] Conjugate, PCV7 00:00:00 [place] [facility] 2001-07-30 Completed [facility] 00:00:00 [facility] Pneumococcal 7 2001-07-30 Completed [facility] Conjugate, PCV7 00:00:00 [place] [facility] ([facility]ar[facility] 2001-07-30 Completed [facility] 00:00:00 [facility] Pneumococcal 7 2001-07-30 Completed [facility] Conjugate, PCV7 00:00:00 [place] [facility] ([facility] 2001-07-30 Completed [facility] 00:00:00 [facility] Pneumococcal 7 2001-07-30 Completed [facility] Conjugate, PCV7 00:00:00 [place] [facility] 2001-07-30 Completed [facility] 00:00:00 [facility] Pneumococcal 7 2001-07-30 Completed [facility] Conjugate, PCV7 00:00:00 [place] [facility] 2001-07-30 Completed [facility] 00:00:00 [facility] Pneumococcal 7 2001-07-30 Completed [facility] Conjugate, PCV7 00:00:00 [place] [facility]ar[facility] 2001-07-30 Completed [facility] 00:00:00 [facility] Pneumococcal 7 2001-07-30 Completed [facility] Conjugate, PCV7 00:00:00 [place] [facility]ar[facility] 2001-07-30 Completed [facility] 00:00:00 [facility] Pneumococcal 7 2001-07-30 Completed [facility] Conjugate, PCV7 00:00:00 [place] [facility] 2001-07-30 Completed [facility] 00:00:00 [facility] 2001-07-30 Completed [facility] 00:00:00 [facility] Pneumococcal 7 2001-07-30 Completed [facility] Conjugate, PCV7 00:00:00 [place] [facility] (Prevnar7[facility] Pneumococcal 7 2001-07-30 Completed [facility] Conjugate, PCV7 00:00:00 [place] [facility]ar[facility] 2001-07-30 Completed [facility] 00:00:00 [facility] Pneumococcal 7 2001-07-30 Completed [facility] Conjugate, PCV7 00:00:00 [place] [facility] 2001-07-30 Completed [facility] 00:00:00 [facility] Pneumococcal 7 2001-07-30 Completed [facility] Conjugate, PCV7 00:00:00 [place] [facility]ar[facility] 2001-07-30 Completed [facility] 00:00:00 [facility] Pneumococcal 7 2001-07-30 Completed [facility] Conjugate, PCV7 00:00:00 [place] [facility]ar[facility] 2001-07-30 Completed [facility] 00:00:00 [facility] Pneumococcal 7 2001-07-30 Completed [facility] Conjugate, PCV7 00:00:00 [place] [facility] 2001-07-30 Completed [facility] 00:00:00 [facility] Pneumococcal 7 2001-07-30 Completed [facility] Conjugate, PCV7 00:00:00 [place] [facility] 2001-07-30 Completed [facility] 00:00:00 [facility] Pneumococcal 7 2001-07-30 Completed [facility] Conjugate, PCV7 00:00:00 [place] [facility]ar[facility] 2001-07-30 Completed [facility] 00:00:00 [facility] Pneumococcal 7 2001-07-30 Completed [facility] Conjugate, PCV7 00:00:00 [place] [facility]ar[facility] 2001-07-30 Completed [facility] 00:00:00 [facility] Pneumococcal 7 2001-07-30 Completed [facility] Conjugate, PCV7 00:00:00 [place] [facility] 2001-07-30 Completed [facility] 00:00:00 [facility] Pneumococcal 7 2001-07-30 Completed [facility] Conjugate, PCV7 00:00:00 [place] [facility] 2001-07-30 Completed [facility] 00:00:00 [facility] 2001-07-30 Completed [facility] 00:00:00 [facility] Pneumococcal 7 2001-07-30 Completed [facility] Conjugate, PCV7 00:00:00 [place] [facility] (Prevnar7[facility] Pneumococcal 7 2001-07-30 Completed [facility] Conjugate, PCV7 00:00:00 [place] [facility] 2001-07-30 Completed [facility] 00:00:00 [facility] Pneumococcal 7 2001-07-30 Completed [facility] Conjugate, PCV7 00:00:00 [place] [facility] 2001-07-30 Completed [facility] 00:00:00 [facility] Pneumococcal 7 2001-07-30 Completed [facility] Conjugate, PCV7 00:00:00 [place] [facility] 2001-07-30 Completed [facility] 00:00:00 [facility] Pneumococcal 7 2001-07-30 Completed [facility] Conjugate, PCV7 00:00:00 [place] [facility] 2001-07-30 Completed [facility] 00:00:00 [facility] Pneumococcal 7 2001-07-30 Completed [facility] Conjugate, PCV7 00:00:00 [place] [facility] 2001-07-30 Completed [facility] 00:00:00 [facility] Pneumococcal 7 2001-07-30 Completed [facility] Conjugate, PCV7 00:00:00 [place] [facility] 2001-07-30 Completed [facility] 00:00:00 [facility] Pneumococcal 7 2001-07-30 Completed [facility] Conjugate, PCV7 00:00:00 [place] [facility] 2001-07-30 Completed [facility] 00:00:00 [facility] Pneumococcal 7 2001-07-30 Completed [facility] Conjugate, PCV7 00:00:00 [place] [facility]ar[facility] 2001-07-30 Completed [facility] 00:00:00 [facility] Pneumococcal 7 2001-07-30 Completed [facility] Conjugate, PCV7 00:00:00 [place] [facility] 2001-07-30 Completed [facility] 00:00:00 [facility] 2001-07-30 Completed [facility] 00:00:00 [facility] Pneumococcal 7 2001-07-30 Completed [facility] Conjugate, PCV7 00:00:00 [place] [facility] (Prevnar7) [facility] Pneumococcal 7 2001-07-30 Completed [facility] Conjugate, PCV7 00:00:00 [place] [facility] 2001-07-30 Completed [facility] 00:00:00 [facility] Pneumococcal 7 2001-07-30 Completed [facility] Conjugate, PCV7 00:00:00 [place] [facility] 2001-07-30 Completed [facility] 00:00:00 [facility] Pneumococcal 7 2001-07-30 Completed [facility] Conjugate, PCV7 00:00:00 [place] [facility] 2001-07-30 Completed [facility] 00:00:00 [facility] Pneumococcal 7 2001-07-30 Completed [facility] Conjugate, PCV7 00:00:00 [place] [facility] ([facility] 2001-07-30 Completed [facility] 00:00:00 [facility] Pneumococcal 7 2001-07-30 Completed [facility] Conjugate, PCV7 00:00:00 [place] [facility]ar[facility] 2001-07-30 Completed [facility] 00:00:00 [facility] Pneumococcal 7 2001-07-30 Completed [facility] Conjugate, PCV7 00:00:00 [place] [facility] ([facility] 2001-07-30 Completed [facility] 00:00:00 [facility] Pneumococcal 7 2001-07-30 Completed [facility] Conjugate, PCV7 00:00:00 [place] [facility]ar[facility] 2001-07-30 Completed [facility] 00:00:00 [facility] Pneumococcal 7 2001-07-30 Completed [facility] Conjugate, PCV7 00:00:00 [place] [facility] ([facility]ar[facility] 2001-07-30 Completed [facility] 00:00:00 [facility] 2001-07-30 Completed [facility] 00:00:00 [facility] Pneumococcal 7 2001-07-30 Completed [facility] Conjugate, PCV7 00:00:00 [place] [facility] (Prevnar7) [facility] Pneumococcal 7 2001-07-30 Completed [facility] Conjugate, PCV7 00:00:00 [place] [facility] ([facility]ar[facility] 2001-07-30 Completed [facility] 00:00:00 [facility] Pneumococcal 7 2001-07-30 Completed [facility] Conjugate, PCV7 00:00:00 [place] [facility]ar[facility] 2001-07-30 Completed [facility] 00:00:00 [facility] Pneumococcal 7 2001-07-30 Completed [facility] Conjugate, PCV7 00:00:00 [place] [facility]ar[facility] 2001-07-30 Completed [facility] 00:00:00 [facility] Pneumococcal 7 2001-07-30 Completed [facility] Conjugate, PCV7 00:00:00 [place] [facility] 2001-07-30 Completed [facility] 00:00:00 [facility] Pneumococcal 7 2001-07-30 Completed [facility] Conjugate, PCV7 00:00:00 [place] [facility]ar[facility] 2001-07-30 Completed [facility] 00:00:00 [facility] Pneumococcal 7 2001-07-30 Completed [facility] Conjugate, PCV7 00:00:00 [place] [facility]ar[facility] 2001-07-30 Completed [facility] 00:00:00 [facility] Pneumococcal 7 2001-07-30 Completed [facility] Conjugate, PCV7 00:00:00 [place] [facility] 2001-07-30 Completed [facility] 00:00:00 [facility] 2001-07-30 Completed [facility] 00:00:00 [facility] Pneumococcal 7 2001-07-30 Completed [facility] Conjugate, PCV7 00:00:00 [place] [facility] (Prevnar7) [facility] Pneumococcal 7 2001-07-30 Completed [facility] Conjugate, PCV7 00:00:00 [place] [facility] 2001-07-30 Completed [facility] 00:00:00 [facility] Pneumococcal 7 2001-07-30 Completed [facility] Conjugate, PCV7 00:00:00 [place] [facility] ([facility]ar[facility] 2001-07-30 Completed [facility] 00:00:00 [facility] Pneumococcal 7 2001-07-30 Completed [facility] Conjugate, PCV7 00:00:00 [place] [facility] ([facility]ar[facility] 2001-07-30 Completed [facility] 00:00:00 [facility] Pneumococcal 7 2001-07-30 Completed [facility] Conjugate, PCV7 00:00:00 [place] [facility]ar[facility] 2001-07-30 Completed [facility] 00:00:00 [facility] Pneumococcal 7 2001-07-30 Completed [facility] Conjugate, PCV7 00:00:00 [place] [facility] 2001-07-30 Completed [facility] 00:00:00 [facility] Pneumococcal 7 2001-07-30 Completed [facility] Conjugate, PCV7 00:00:00 [place] [facility] ([facility]ar7[facility] 2001-07-30 Completed [facility] 00:00:00 [facility] Pneumococcal 7 2001-07-30 Completed [facility] Conjugate, PCV7 00:00:00 [place] [facility] ([facility]ar[facility] 2001-07-30 Completed [facility] 00:00:00 [facility] Pneumococcal 7 2001-07-30 Completed [facility] Conjugate, PCV7 00:00:00 [place] [facility] 2001-07-30 Completed [facility] 00:00:00 [facility] Pneumococcal 7 2001-07-30 Completed [facility] Conjugate, PCV7 00:00:00 [place] [facility] ([facility]ar7[facility] 2001-07-30 Completed [facility] 00:00:00 [facility] 2001-07-30 Completed [facility] 00:00:00 [facility] Pneumococcal 7 2001-07-30 Completed [facility] Conjugate, PCV7 00:00:00 [place] [facility] (Prevnar7) [facility] Pneumococcal 7 2001-07-30 Completed [facility] Conjugate, PCV7 00:00:00 [place] [facility] 2001-07-30 Completed [facility] 00:00:00 [facility] Pneumococcal 7 2001-07-30 Completed [facility] Conjugate, PCV7 00:00:00 [place] [facility] (Pre[facility]ar7[facility] 2001-07-30 Completed [facility] 00:00:00 [facility] Pneumococcal 7 2001-07-30 Completed [facility] Conjugate, PCV7 00:00:00 [place] [facility] (Prevnar7[facility] 2001-07-30 Completed [facility] 00:00:00 [facility] Pneumococcal 7 2001-07-30 Completed [facility] Conjugate, PCV7 00:00:00 [place] [facility] ([facility]ar7[facility] 2001-07-30 Completed [facility] 00:00:00 [facility] Pneumococcal 7 2001-07-30 Completed [facility] Conjugate, PCV7 00:00:00 [place] [facility] ([facility]ar7[facility] 2001-07-30 Completed [facility] 00:00:00 [facility] Pneumococcal 7 2001-07-30 Completed [facility] Conjugate, PCV7 00:00:00 [place] [facility] (Prevnar7[facility] 2001-07-30 Completed [facility] 00:00:00 [facility] Pneumococcal 7 2001-07-30 Completed [facility] Conjugate, PCV7 00:00:00 [place] [facility] (Prevnar7[facility] 2001-07-30 Completed [facility] 00:00:00 [facility] Pneumococcal 7 2001-07-30 Completed [facility] Conjugate, PCV7 00:00:00 [place] [facility] (Prevnar7[facility] 2001-07-30 Completed [facility] 00:00:00 [facility] Pneumococcal 7 2001-07-30 Completed [facility] Conjugate, PCV7 00:00:00 [place] [facility] 2001-07-30 Completed [facility] 00:00:00 [facility] 2001-07-30 Completed [facility] 00:00:00 [facility] Pneumococcal 7 2001-07-30 Completed [facility] Conjugate, PCV7 00:00:00 [place] [facility] (Prevnar7) [facility] Pneumococcal 7 2001-07-30 Completed [facility] Conjugate, PCV7 00:00:00 [place] [facility]ar7[facility] 2001-07-30 Completed [facility] 00:00:00 [facility] Pneumococcal 7 2001-07-30 Completed [facility] Conjugate, PCV7 00:00:00 [place] [facility] 2001-07-30 Completed [facility] 00:00:00 [facility] Pneumococcal 7 2001-07-30 Completed [facility] Conjugate, PCV7 00:00:00 [place] [facility] ([facility]ar7[facility] 2001-07-30 Completed [facility] 00:00:00 [facility] Pneumococcal 7 2001-07-30 Completed [facility] Conjugate, PCV7 00:00:00 [place] [facility] ([facility]ar7[facility] 2001-07-30 Completed [facility] 00:00:00 [facility] Pneumococcal 7 2001-07-30 Completed [facility] Conjugate, PCV7 00:00:00 [place] [facility] ([facility]vnar7[facility] 2001-07-30 Completed [facility] 00:00:00 [facility] Pneumococcal 7 2001-07-30 Completed [facility] Conjugate, PCV7 00:00:00 [place] [facility] (Prevnar7[facility] 2001-07-30 Completed [facility] 00:00:00 [facility] Pneumococcal 7 2001-07-30 Completed [facility] Conjugate, PCV7 00:00:00 [place] [facility] 2001-07-30 Completed [facility] 00:00:00 [facility] Pneumococcal 7 2001-07-30 Completed [facility] Conjugate, PCV7 00:00:00 [place] [facility]ar7[facility] 2001-07-30 Completed [facility] 00:00:00 [facility] 2001-07-30 Completed [facility] 00:00:00 [facility] Pneumococcal 7 2001-07-30 Completed [facility] Conjugate, PCV7 00:00:00 [place] [facility] (Prevnar7) [facility] Pneumococcal 7 2001-07-30 Completed [facility] Conjugate, PCV7 00:00:00 [place] [facility] 2001-07-30 Completed [facility] 00:00:00 [facility] Pneumococcal 7 2001-07-30 Completed [facility] Conjugate, PCV7 00:00:00 [place] [facility] (Prevnar7[facility] 2001-07-30 Completed [facility] 00:00:00 [facility] Pneumococcal 7 2001-07-30 Completed [facility] Conjugate, PCV7 00:00:00 [place] [facility] ([facility]ar7[facility] 2001-07-30 Completed [facility] 00:00:00 [facility] Pneumococcal 7 2001-07-30 Completed [facility] Conjugate, PCV7 00:00:00 [place] [facility] ([facility]ar7[facility] 2001-07-30 Completed [facility] 00:00:00 [facility] Pneumococcal 7 2001-07-30 Completed [facility] Conjugate, PCV7 00:00:00 [place] [facility] ([facility]vnar7[facility] 2001-07-30 Completed [facility] 00:00:00 [facility] Pneumococcal 7 2001-07-30 Completed [facility] Conjugate, PCV7 00:00:00 [place] [facility] (Prevnar7[facility] 2001-07-30 Completed [facility] 00:00:00 [facility] Pneumococcal 7 2001-07-30 Completed [facility] Conjugate, PCV7 00:00:00 [place] [facility] (Prevnar7[facility] 2001-07-30 Completed [facility] 00:00:00 [facility] Pneumococcal 7 2001-07-30 Completed [facility] Conjugate, PCV7 00:00:00 [place] [facility] (Prevnar7[facility] 2001-07-30 Completed [facility] 00:00:00 [facility] Pneumococcal 7 2001-07-30 Completed [facility] Conjugate, PCV7 00:00:00 [place] [facility] 2001-07-30 Completed [facility] 00:00:00 [facility] 2001-07-30 Completed [facility] 00:00:00 [facility] Pneumococcal 7 2001-07-30 Completed [facility] Conjugate, PCV7 00:00:00 [place] [facility] (Prevnar7) [facility] Pneumococcal 7 2001-07-30 Completed [facility] Conjugate, PCV7 00:00:00 [place] [facility]ar[facility] 2001-07-30 Completed [facility] 00:00:00 [facility] Pneumococcal 7 2001-07-30 Completed [facility] Conjugate, PCV7 00:00:00 [place] [facility] ([facility]ar7[facility] 2001-07-30 Completed [facility] 00:00:00 [facility] Pneumococcal 7 2001-07-30 Completed [facility] Conjugate, PCV7 00:00:00 [place] [facility] (Prevnar7[facility] 2001-07-30 Completed [facility] 00:00:00 [facility] Pneumococcal 7 2001-07-30 Completed [facility] Conjugate, PCV7 00:00:00 [place] [facility] (Prevnar7[facility] 2001-07-30 Completed [facility] 00:00:00 [facility] Pneumococcal 7 2001-07-30 Completed [facility] Conjugate, PCV7 00:00:00 [place] [facility] (Prevnar7[facility] 2001-07-30 Completed [facility] 00:00:00 [facility] Pneumococcal 7 2001-07-30 Completed [facility] Conjugate, PCV7 00:00:00 [place] [facility] (Prevnar7[facility] 2001-07-30 Completed [facility] 00:00:00 [facility] Pneumococcal 7 2001-07-30 Completed [facility] Conjugate, PCV7 00:00:00 [place] [facility] (Prevnar7[facility] 2001-07-30 Completed [facility] 00:00:00 [facility] Pneumococcal 7 2001-07-30 Completed [facility] Conjugate, PCV7 00:00:00 [place] [facility] ([facility]ar7[facility] 2001-07-30 Completed [facility] 00:00:00 [facility] 2001-07-30 Completed [facility] 00:00:00 [facility] Pneumococcal 7 2001-07-30 Completed [facility] Conjugate, PCV7 00:00:00 [place] [facility] (Prevnar7) [facility] Pneumococcal 7 2001-07-30 Completed [facility] Conjugate, PCV7 00:00:00 [place] [facility] 2001-07-30 Completed [facility] 00:00:00 [facility] Pneumococcal 7 2001-07-30 Completed [facility] Conjugate, PCV7 00:00:00 [place] [facility] ([facility]ar[facility] 2001-07-30 Completed [facility] 00:00:00 [facility] Pneumococcal 7 2001-07-30 Completed [facility] Conjugate, PCV7 00:00:00 [place] [facility] ([facility]ar[facility] 2001-07-30 Completed [facility] 00:00:00 [facility] Pneumococcal 7 2001-07-30 Completed [facility] Conjugate, PCV7 00:00:00 [place] [facility] ([facility]ar[facility] 2001-07-30 Completed [facility] 00:00:00 [facility] Pneumococcal 7 2001-07-30 Completed [facility] Conjugate, PCV7 00:00:00 [place] [facility]ar[facility] 2001-07-30 Completed [facility] 00:00:00 [facility] Pneumococcal 7 2001-07-30 Completed [facility] Conjugate, PCV7 00:00:00 [place] [facility] (Prevnar7[facility] 2001-07-30 Completed [facility] 00:00:00 [facility] Pneumococcal 7 2001-07-30 Completed [facility] Conjugate, PCV7 00:00:00 [place] [facility] (Prevnar7) [facility] 2001-07-30 Completed [facility] 00:00:00 [facility] Pneumococcal 7 2001-07-30 Completed University of Conjugate, PCV7 00:00:00 [place] [facility] (Prevnar7[facility] Branch [facility] 2001-07-30 Completed [facility] of 00:00:00 [facility] 2001-07-30 Completed [facility] of 00:00:00 [facility] Pneumococcal 7 2001-07-30 Completed University of Conjugate, PCV7 00:00:00 [place] [facility] (Prevnar7) Branch Pneumococcal 7 2001-07-30 Completed [facility] of Conjugate, PCV7 00:00:00 [place] [facility] (Pre[facility]ar7[facility] 2001-07-30 Completed [facility] 00:00:00 [facility] Pneumococcal 7 2001-07-30 Completed [facility] of Conjugate, PCV7 00:00:00 [place] [facility] (Pre[facility]ar7[facility] 2001-07-30 Completed [facility] 00:00:00 [facility] Pneumococcal 7 2001-07-30 Completed [facility] of Conjugate, PCV7 00:00:00 [place] [facility] (Pre[facility]ar7[facility] Branch [facility] 2001-07-30 Completed [facility] 00:00:00 [facility] Pneumococcal 7 2001-07-30 Completed [facility] of Conjugate, PCV7 00:00:00 [place] [facility] (Pre[facility] 2001-07-30 Completed [facility] 00:00:00 [facility] Pneumococcal 7 2001-07-30 Completed [facility] Conjugate, PCV7 00:00:00 [place] [facility] (Prevnar7) [facility] 2001-07-30 Completed [facility] 00:00:00 [facility] Pneumococcal 7 2001-07-30 Completed [facility] of Conjugate, PCV7 00:00:00 [place] [facility] (Prevnar7) [facility] 2001-07-30 Completed [facility] 00:00:00 [facility] Pneumococcal 7 2001-07-30 Completed [facility] Conjugate, PCV7 00:00:00 [place] [facility] (Prevnar7) [facility] 2001-07-30 Completed [facility] 00:00:00 [facility] Pneumococcal 7 2001-07-30 Completed [facility] Conjugate, PCV7 00:00:00 [place] [facility] (Prevnar7) [facility] 2001-07-30 Completed [facility] 00:00:00 [facility] Pneumococcal 7 2001-07-30 Completed [facility] Conjugate, PCV7 00:00:00 [place] [facility] (Prevnar7) [facility] 2001-07-30 Completed [facility] 00:00:00 [facility] Pneumococcal 7 2001-07-30 Completed [facility] Conjugate, PCV7 00:00:00 [place] [facility] (Prevnar7) [facility] 2001-07-30 Completed [facility] 00:00:00 [facility] Pneumococcal 7 2001-07-30 Completed [facility] of Conjugate, PCV7 00:00:00 [place] [facility] (Prevnar7) Branch [facility] 2001-07-30 Completed [facility] 00:00:00 [facility] Branch [facility] 2001-07-30 Completed [facility] 00:00:00 [facility] Pneumococcal 7 2001-07-30 Completed [facility] of Conjugate, PCV7 00:00:00 [place] [facility] (Prevnar7) Branch [facility] 2001-07-30 Completed [facility] 00:00:00 [facility] Pneumococcal 7 2001-07-30 Completed [facility] of Conjugate, PCV7 00:00:00 [place] [facility] (Prevnar7) [facility] 2001-07-30 Completed [facility] 00:00:00 [facility] 2001-07-30 Completed [facility] of 00:00:00 [facility] Pneumococcal 7 2001-07-30 Completed [facility] of Conjugate, PCV7 00:00:00 [place] [facility] (Prevnar7) Branch Pneumococcal 7 2001-07-30 Completed [facility] of Conjugate, PCV7 00:00:00 [place] [facility] (Prevnar7) Branch Pneumococcal 7 2001-07-30 Completed [facility] of Conjugate, PCV7 00:00:00 [place] [facility] (Prevnar7[facility] 2001-07-30 Completed [facility] 00:00:00 [facility] Pneumococcal 7 2001-07-30 Completed [facility] of Conjugate, PCV7 00:00:00 [place] [facility] (Prevnar7) Branch [facility] 2001-07-30 Completed [facility] 00:00:00 [facility] Pneumococcal 7 2001-07-30 Completed [facility] of Conjugate, PCV7 00:00:00 [place] [facility] (Prevnar7) [facility] 2001-07-30 Completed [facility] 00:00:00 [facility] Pneumococcal 7 2001-07-30 Completed [facility] of Conjugate, PCV7 00:00:00 [place] [facility] (Prevnar7) [facility] 2001-07-30 Completed [facility] 00:00:00 [facility] Pneumococcal 7 2001-07-30 Completed [facility] of Conjugate, PCV7 00:00:00 [place] [facility] (Prevnar7) [facility] 2001-07-30 Completed [facility] 00:00:00 [facility] Pneumococcal 7 2001-07-30 Completed [facility] of Conjugate, PCV7 00:00:00 [place] [facility] (Prevnar7) Branch MMR 2001-07-30 Completed [facility] 00:00:00 [facility] Pneumococcal 7 2001-07-30 Completed [facility] of Conjugate, PCV7 00:00:00 [place] [facility] (Prevnar7) Branch MMR 2001-07-30 Completed [facility] of 00:00:00 [facility] Pneumococcal 7 2001-07-30 Completed [facility] of Conjugate, PCV7 00:00:00 [place] [facility] (Prevnar7) Branch Polio (IPV/OPV) 2001-05-17 Completed Universit y [facility] 00:00:00 [facility] Varicella 2001-05-17 Completed University of (varivax)(chicken 00:00:00 [place] [facility] pox) Branch Pneumococcal 7 2001-05-17 Completed [facility] of Conjugate, PCV7 00:00:00 [place] [facility] (Prevnar7) Branch Polio (IPV/OPV) 2001-05-17 Completed Universit y [facility] 00:00:00 [facility] Varicella 2001-05-17 Completed [facility] of (varivax)(chicken 00:00:00 [place] [facility] pox) Branch Pneumococcal 7 2001-05-17 Completed [facility] of Conjugate, PCV7 00:00:00 [place] [facility] (Prevnar7) Branch Polio (IPV/OPV) 2001-05-17 Completed Universit y of 00:00:00 [facility] Varicella 2001-05-17 Completed [facility] of (varivax)(chicken 00:00:00 [place] [facility] pox) Branch Pneumococcal 7 2001-05-17 Completed [facility] Conjugate, PCV7 00:00:00 [place] [facility] (Prevnar7) Branch Pneumococcal 7 2001-05-17 Completed [facility] Conjugate, PCV7 00:00:00 [place] [facility] (Prevnar7) Branch Polio (IPV/OPV) 2001-05-17 Completed [facility]it y [facility] 00:00:00 [facility] Varicella 2001-05-17 Completed [facility] of (varivax)(chicken 00:00:00 [place] [facility] pox) Branch Polio (IPV/OPV) 2001-05-17 Completed Universit y of 00:00:00 [facility] Varicella 2001-05-17 Completed [facility] of (varivax)(chicken 00:00:00 [place] [facility] pox) Branch Pneumococcal 7 2001-05-17 Completed [facility] of Conjugate, PCV7 00:00:00 [place] [facility] (Prevnar7) Branch Polio (IPV/OPV) 2001-05-17 Completed [facility]it y [facility] 00:00:00 [facility] Varicella 2001-05-17 Completed [facility] of (varivax)(chicken 00:00:00 [place] [facility] pox) Branch Pneumococcal 7 2001-05-17 Completed [facility] of Conjugate, PCV7 00:00:00 [place] [facility] (Prevnar7) Branch Polio (IPV/OPV) 2001-05-17 Completed Universit y [facility] 00:00:00 [facility] Varicella 2001-05-17 Completed [facility] of (varivax)(chicken 00:00:00 [place] [facility] pox) Branch Pneumococcal 7 2001-05-17 Completed [facility] of Conjugate, PCV7 00:00:00 [place] [facility] (Prevnar7) Branch Polio (IPV/OPV) 2001-05-17 Completed [facility]it y of 00:00:00 [facility] Varicella 2001-05-17 Completed [facility] of (varivax)(chicken 00:00:00 [place] [facility] pox) Branch Pneumococcal 7 2001-05-17 Completed [facility] Conjugate, PCV7 00:00:00 [place] [facility] (Prevnar7) Branch Polio (IPV/OPV) 2001-05-17 Completed [facility] y [facility] 00:00:00 [facility] Varicella 2001-05-17 Completed [facility] of (varivax)(chicken 00:00:00 [place] [facility] pox) Branch Pneumococcal 7 2001-05-17 Completed [facility] of Conjugate, PCV7 00:00:00 [place] [facility] (Prevnar7) Branch Polio (IPV/OPV) 2001-05-17 Completed [facility] 00:00:00 [facility] Varicella 2001-05-17 Completed [facility] of (varivax)(chicken 00:00:00 [place] [facility] pox) Branch Pneumococcal 7 2001-05-17 Completed [facility] of Conjugate, PCV7 00:00:00 [place] [facility] (Prevnar7) Branch Polio (IPV/OPV) 2001-05-17 Completed [facility] y [facility] 00:00:00 [facility] Varicella 2001-05-17 Completed [facility] of (varivax)(chicken 00:00:00 [place] [facility] pox) Branch Pneumococcal 7 2001-05-17 Completed [facility] of Conjugate, PCV7 00:00:00 [place] [facility] (Prevnar7) Branch Polio (IPV/OPV) 2001-05-17 Completed [facility] y [facility] 00:00:00 [facility] Varicella 2001-05-17 Completed [facility] of (varivax)(chicken 00:00:00 [place] [facility] pox) Branch Pneumococcal 7 2001-05-17 Completed [facility] of Conjugate, PCV7 00:00:00 [place] [facility] (Prevnar7) Branch Polio (IPV/OPV) 2001-05-17 Completed [facility]it [facility] 00:00:00 [facility] Varicella 2001-05-17 Completed [facility] of (varivax)(chicken 00:00:00 [place] [facility] pox) Branch Pneumococcal 7 2001-05-17 Completed [facility] of Conjugate, PCV7 00:00:00 [place] [facility] (Prevnar7) Branch Polio (IPV/OPV) 2001-05-17 Completed [facility] 00:00:00 [facility] Varicella 2001-05-17 Completed [facility] of (varivax)(chicken 00:00:00 [place] [facility] pox) Branch Pneumococcal 7 2001-05-17 Completed [facility] Conjugate, PCV7 00:00:00 [place] [facility] (Prevnar7) Branch Polio (IPV/OPV) 2001-05-17 Completed [facility] 00:00:00 [facility] Varicella 2001-05-17 Completed [facility] of (varivax)(chicken 00:00:00 [place] [facility] pox) Branch Pneumococcal 7 2001-05-17 Completed [facility] Conjugate, PCV7 00:00:00 [place] [facility] (Prevnar7) Branch Polio (IPV/OPV) 2001-05-17 Completed [facility] y [facility] 00:00:00 [facility] Varicella 2001-05-17 Completed [facility] of (varivax)(chicken 00:00:00 [place] [facility] pox) Branch Pneumococcal 7 2001-05-17 Completed [facility] Conjugate, PCV7 00:00:00 [place] [facility] (Prevnar7) Branch Pneumococcal 7 2001-05-17 Completed [facility] Conjugate, PCV7 00:00:00 [place] [facility] (Prevnar7) Branch Polio (IPV/OPV) 2001-05-17 Completed Universit y of 00:00:00 [facility] Varicella 2001-05-17 Completed [facility] of (varivax)(chicken 00:00:00 [place] [facility] pox) Branch Polio (IPV/OPV) 2001-05-17 Completed [facility] of 00:00:00 [facility] Pneumococcal 7 2001-05-17 Completed [facility] of Conjugate, PCV7 00:00:00 [place] [facility] (Prevnar7) Branch Polio (IPV/OPV) 2001-05-17 Completed [facility]it [facility] of 00:00:00 [facility] Varicella 2001-05-17 Completed [facility] (varivax)(chicken 00:00:00 [place] [facility] pox) Branch Varicella 2001-05-17 Completed [facility] (varivax)(chicken 00:00:00 [place] [facility] pox) Branch Pneumococcal 7 2001-05-17 Completed [facility] Conjugate, PCV7 00:00:00 [place] [facility] (Prevnar7) Branch Polio (IPV/OPV) 2001-05-17 Completed [facility] 00:00:00 [facility] Varicella 2001-05-17 Completed [facility] of (varivax)(chicken 00:00:00 [place] [facility] pox) Branch Pneumococcal 7 2001-05-17 Completed [facility] Conjugate, PCV7 00:00:00 [place] [facility] (Prevnar7) Branch Polio (IPV/OPV) 2001-05-17 Completed [facility] 00:00:00 [facility] Varicella 2001-05-17 Completed [facility] of (varivax)(chicken 00:00:00 [place] [facility] pox) Branch Pneumococcal 7 2001-05-17 Completed [facility] Conjugate, PCV7 00:00:00 [place] [facility] (Prevnar7) Branch Polio (IPV/OPV) 2001-05-17 Completed [facility] 00:00:00 [facility] Varicella 2001-05-17 Completed [facility] (varivax)(chicken 00:00:00 [place] [facility] pox) Branch Pneumococcal 7 2001-05-17 Completed [facility] Conjugate, PCV7 00:00:00 [place] [facility] (Prevnar7) Branch Polio (IPV/OPV) 2001-05-17 Completed [facility] 00:00:00 [facility] Varicella 2001-05-17 Completed [facility] (varivax)(chicken 00:00:00 [place] [facility] pox) Branch Pneumococcal 7 2001-05-17 Completed [facility] of Conjugate, PCV7 00:00:00 [place] [facility] (Prevnar7) Branch Polio (IPV/OPV) 2001-05-17 Completed [facility] 00:00:00 [facility] Varicella 2001-05-17 Completed [facility] of (varivax)(chicken 00:00:00 [place] [facility] pox) Branch Pneumococcal 7 2001-05-17 Completed [facility] Conjugate, PCV7 00:00:00 [place] [facility] (Prevnar7) Branch Polio (IPV/OPV) 2001-05-17 Completed [facility] 00:00:00 [facility] Varicella 2001-05-17 Completed [facility] of (varivax)(chicken 00:00:00 [place] [facility] pox) Branch Pneumococcal 7 2001-05-17 Completed [facility] Conjugate, PCV7 00:00:00 [place] [facility] (Prevnar7) Branch Polio (IPV/OPV) 2001-05-17 Completed [facility] 00:00:00 [facility] Varicella 2001-05-17 Completed [facility] (varivax)(chicken 00:00:00 [place] [facility] pox) Branch Pneumococcal 7 2001-05-17 Completed [facility] of Conjugate, PCV7 00:00:00 [place] [facility] (Prevnar7) Branch Polio (IPV/OPV) 2001-05-17 Completed [facility] 00:00:00 [facility] Varicella 2001-05-17 Completed [facility] (varivax)(chicken 00:00:00 [place] [facility] pox) Branch Pneumococcal 7 2001-05-17 Completed [facility] Conjugate, PCV7 00:00:00 [place] [facility] (Prevnar7) Branch Pneumococcal 7 2001-05-17 Completed [facility] Conjugate, PCV7 00:00:00 [place] [facility] (Prevnar7) Branch Polio (IPV/OPV) 2001-05-17 Completed [facility] 00:00:00 [facility] Varicella 2001-05-17 Completed [facility] of (varivax)(chicken 00:00:00 [place] [facility] pox) Branch Polio (IPV/OPV) 2001-05-17 Completed [facility] 00:00:00 [facility] Pneumococcal 7 2001-05-17 Completed [facility] of Conjugate, PCV7 00:00:00 [place] [facility] (Prevnar7) Branch Polio (IPV/OPV) 2001-05-17 Completed [facility]it y of 00:00:00 [facility] Varicella 2001-05-17 Completed [facility] of (varivax)(chicken 00:00:00 [place] [facility] pox) Branch Varicella 2001-05-17 Completed [facility] (varivax)(chicken 00:00:00 [place] [facility] pox) Branch Pneumococcal 7 2001-05-17 Completed [facility] of Conjugate, PCV7 00:00:00 [place] [facility] (Prevnar7) Branch Polio (IPV/OPV) 2001-05-17 Completed [facility] 00:00:00 [facility] Varicella 2001-05-17 Completed [facility] (varivax)(chicken 00:00:00 [place] [facility] pox) Branch Pneumococcal 7 2001-05-17 Completed [facility] Conjugate, PCV7 00:00:00 [place] [facility] (Prevnar7) Branch Polio (IPV/OPV) 2001-05-17 Completed [facility] 00:00:00 [facility] Varicella 2001-05-17 Completed [facility] of (varivax)(chicken 00:00:00 [place] [facility] pox) Branch Pneumococcal 7 2001-05-17 Completed [facility] Conjugate, PCV7 00:00:00 [place] [facility] (Prevnar7) Branch Polio (IPV/OPV) 2001-05-17 Completed [facility] 00:00:00 [facility] Varicella 2001-05-17 Completed [facility] (varivax)(chicken 00:00:00 [place] [facility] pox) Branch Pneumococcal 7 2001-05-17 Completed [facility] of Conjugate, PCV7 00:00:00 [place] [facility] (Prevnar7) Branch Polio (IPV/OPV) 2001-05-17 Completed [facility] 00:00:00 [facility] Varicella 2001-05-17 Completed [facility] (varivax)(chicken 00:00:00 [place] [facility] pox) Branch Pneumococcal 7 2001-05-17 Completed [facility] Conjugate, PCV7 00:00:00 [place] [facility] (Prevnar7) Branch Polio (IPV/OPV) 2001-05-17 Completed [facility] 00:00:00 [facility] Varicella 2001-05-17 Completed [facility] of (varivax)(chicken 00:00:00 [place] [facility] pox) Branch Pneumococcal 7 2001-05-17 Completed [facility] Conjugate, PCV7 00:00:00 [place] [facility] (Prevnar7) Branch Polio (IPV/OPV) 2001-05-17 Completed [facility] 00:00:00 [facility] Varicella 2001-05-17 Completed [facility] (varivax)(chicken 00:00:00 [place] [facility] pox) Branch Pneumococcal 7 2001-05-17 Completed [facility] Conjugate, PCV7 00:00:00 [place] [facility] (Prevnar7) Branch Pneumococcal 7 2001-05-17 Completed [facility] Conjugate, PCV7 00:00:00 [place] [facility] (Prevnar7) Branch Polio (IPV/OPV) 2001-05-17 Completed [facility] 00:00:00 [facility] Varicella 2001-05-17 Completed [facility] of (varivax)(chicken 00:00:00 [place] [facility] pox) Branch Polio (IPV/OPV) 2001-05-17 Completed [facility] 00:00:00 [facility] Pneumococcal 7 2001-05-17 Completed [facility] of Conjugate, PCV7 00:00:00 [place] [facility] (Prevnar7) Branch Polio (IPV/OPV) 2001-05-17 Completed [facility] 00:00:00 [facility] Varicella 2001-05-17 Completed [facility] of (varivax)(chicken 00:00:00 [place] [facility] pox) Branch Varicella 2001-05-17 Completed [facility] (varivax)(chicken 00:00:00 [place] [facility] pox) Branch Pneumococcal 7 2001-05-17 Completed [facility] Conjugate, PCV7 00:00:00 [place] [facility] (Prevnar7) Branch Polio (IPV/OPV) 2001-05-17 Completed [facility] 00:00:00 [facility] Varicella 2001-05-17 Completed [facility] of (varivax)(chicken 00:00:00 [place] [facility] pox) Branch Pneumococcal 7 2001-05-17 Completed [facility] Conjugate, PCV7 00:00:00 [place] [facility] (Prevnar7) Branch Polio (IPV/OPV) 2001-05-17 Completed [facility] 00:00:00 [facility] Varicella 2001-05-17 Completed [facility] (varivax)(chicken 00:00:00 [place] [facility] pox) Branch Pneumococcal 7 2001-05-17 Completed [facility] Conjugate, PCV7 00:00:00 [place] [facility] (Prevnar7) Branch Polio (IPV/OPV) 2001-05-17 Completed [facility] 00:00:00 [facility] Varicella 2001-05-17 Completed [facility] (varivax)(chicken 00:00:00 [place] [facility] pox) Branch Pneumococcal 7 2001-05-17 Completed [facility] Conjugate, PCV7 00:00:00 [place] [facility] (Prevnar7) Branch Polio (IPV/OPV) 2001-05-17 Completed [facility] 00:00:00 [facility] Varicella 2001-05-17 Completed [facility] (varivax)(chicken 00:00:00 [place] [facility] pox) Branch Pneumococcal 7 2001-05-17 Completed [facility] Conjugate, PCV7 00:00:00 [place] [facility] (Prevnar7) Branch Polio (IPV/OPV) 2001-05-17 Completed [facility] 00:00:00 [facility] Varicella 2001-05-17 Completed [facility] (varivax)(chicken 00:00:00 [place] [facility] pox) Branch Pneumococcal 7 2001-05-17 Completed [facility] Conjugate, PCV7 00:00:00 [place] [facility] (Prevnar7) Branch Polio (IPV/OPV) 2001-05-17 Completed [facility] 00:00:00 [facility] Varicella 2001-05-17 Completed [facility] (varivax)(chicken 00:00:00 [place] [facility] pox) Branch Pneumococcal 7 2001-05-17 Completed [facility] of Conjugate, PCV7 00:00:00 [place] [facility] (Prevnar7) Branch Polio (IPV/OPV) 2001-05-17 Completed [facility] 00:00:00 [facility] Varicella 2001-05-17 Completed [facility] of (varivax)(chicken 00:00:00 [place] [facility] pox) Branch Pneumococcal 7 2001-05-17 Completed [facility] Conjugate, PCV7 00:00:00 [place] [facility] (Prevnar7) Branch Pneumococcal 7 2001-05-17 Completed [facility] Conjugate, PCV7 00:00:00 [place] [facility] (Prevnar7) Branch Polio (IPV/OPV) 2001-05-17 Completed [facility] 00:00:00 [facility] Varicella 2001-05-17 Completed [facility] of (varivax)(chicken 00:00:00 [place] [facility] pox) Branch Polio (IPV/OPV) 2001-05-17 Completed [facility] 00:00:00 [facility] Pneumococcal 7 2001-05-17 Completed [facility] of Conjugate, PCV7 00:00:00 [place] [facility] (Prevnar7) Branch Varicella 2001-05-17 Completed [facility] of (varivax)(chicken 00:00:00 [place] [facility] pox) Branch Polio (IPV/OPV) 2001-05-17 Completed [facility] 00:00:00 [facility] Varicella 2001-05-17 Completed [facility] (varivax)(chicken 00:00:00 [place] [facility] pox) Branch Pneumococcal 7 2001-05-17 Completed [facility] Conjugate, PCV7 00:00:00 [place] [facility] (Prevnar7) Branch Polio (IPV/OPV) 2001-05-17 Completed [facility] 00:00:00 [facility] Varicella 2001-05-17 Completed [facility] of (varivax)(chicken 00:00:00 [place] [facility] pox) Branch Pneumococcal 7 2001-05-17 Completed [facility] Conjugate, PCV7 00:00:00 [place] [facility] (Prevnar7) Branch Polio (IPV/OPV) 2001-05-17 Completed [facility] 00:00:00 [facility] Varicella 2001-05-17 Completed [facility] (varivax)(chicken 00:00:00 [place] [facility] pox) Branch Pneumococcal 7 2001-05-17 Completed [facility] Conjugate, PCV7 00:00:00 [place] [facility] (Prevnar7) Branch Polio (IPV/OPV) 2001-05-17 Completed [facility] 00:00:00 [facility] Varicella 2001-05-17 Completed [facility] (varivax)(chicken 00:00:00 [place] [facility] pox) Branch Pneumococcal 7 2001-05-17 Completed [facility] Conjugate, PCV7 00:00:00 [place] [facility] (Prevnar7) Branch Polio (IPV/OPV) 2001-05-17 Completed [facility] 00:00:00 [facility] Varicella 2001-05-17 Completed [facility] (varivax)(chicken 00:00:00 [place] [facility] pox) Branch Pneumococcal 7 2001-05-17 Completed [facility] Conjugate, PCV7 00:00:00 [place] [facility] (Prevnar7) Branch Polio (IPV/OPV) 2001-05-17 Completed [facility] 00:00:00 [facility] Varicella 2001-05-17 Completed [facility] (varivax)(chicken 00:00:00 [place] [facility] pox) Branch Pneumococcal 7 2001-05-17 Completed [facility] Conjugate, PCV7 00:00:00 [place] [facility] (Prevnar7) Branch Pneumococcal 7 2001-05-17 Completed [facility] Conjugate, PCV7 00:00:00 [place] [facility] (Prevnar7) Branch Polio (IPV/OPV) 2001-05-17 Completed [facility] 00:00:00 [facility] Varicella 2001-05-17 Completed [facility] (varivax)(chicken 00:00:00 [place] [facility] pox) Branch Polio (IPV/OPV) 2001-05-17 Completed [facility] 00:00:00 [facility] Varicella 2001-05-17 Completed [facility] (varivax)(chicken 00:00:00 [place] [facility] pox) Branch Pneumococcal 7 2001-05-17 Completed [facility] Conjugate, PCV7 00:00:00 [place] [facility] (Prevnar7) Branch Polio (IPV/OPV) 2001-05-17 Completed [facility] 00:00:00 [facility] Varicella 2001-05-17 Completed [facility] (varivax)(chicken 00:00:00 [place] [facility] pox) Branch Pneumococcal 7 2001-05-17 Completed [facility] Conjugate, PCV7 00:00:00 [place] [facility] (Prevnar7) Branch Polio (IPV/OPV) 2001-05-17 Completed [facility] 00:00:00 [facility] Varicella 2001-05-17 Completed [facility] (varivax)(chicken 00:00:00 [place] [facility] pox) Branch Pneumococcal 7 2001-05-17 Completed [facility] Conjugate, PCV7 00:00:00 [place] [facility] (Prevnar7) Branch Polio (IPV/OPV) 2001-05-17 Completed [facility] 00:00:00 [facility] Varicella 2001-05-17 Completed [facility] (varivax)(chicken 00:00:00 [place] [facility] pox) Branch Pneumococcal 7 2001-05-17 Completed [facility] Conjugate, PCV7 00:00:00 [place] [facility] (Prevnar7) Branch Polio (IPV/OPV) 2001-05-17 Completed [facility] 00:00:00 [facility] Varicella 2001-05-17 Completed [facility] (varivax)(chicken 00:00:00 [place] [facility] pox) Branch Pneumococcal 7 2001-05-17 Completed [facility] Conjugate, PCV7 00:00:00 [place] [facility] (Prevnar7) Branch Polio (IPV/OPV) 2001-05-17 Completed [facility] 00:00:00 [facility] Varicella 2001-05-17 Completed [facility] (varivax)(chicken 00:00:00 [place] [facility] pox[facility] Pneumococcal 7 2001-05-17 Completed [facility] Conjugate, PCV7 00:00:00 [place] [facility] (Prevnar7) Branch Polio (IPV/OPV) 2001-05-17 Completed [facility] 00:00:00 [facility] Varicella 2001-05-17 Completed [facility] (varivax)(chicken 00:00:00 [place] [facility] pox) [facility] Pneumococcal 7 2001-05-17 Completed [facility] Conjugate, PCV7 00:00:00 [place] [facility] (Prevnar7) Branch Polio (IPV/OPV) 2001-05-17 Completed [facility] 00:00:00 [facility] Varicella 2001-05-17 Completed [facility] of (varivax)(chicken 00:00:00 [facility] pox) [facility] Pneumococcal 7 2001-05-17 Completed [facility] Conjugate, PCV7 00:00:00 [facility] (Prevnar7) [facility] Polio (IPV/OPV) 2001-05-17 Completed [facility] 00:00:00 [facility] Varicella 2001-05-17 Completed [facility] (varivax)(chicken 00:00:00 [facility] pox) [facility] Pneumococcal 7 2001-05-17 Completed [facility] Conjugate, PCV7 00:00:00 [place] [facility] (Prevnar7) Branch Pneumococcal 7 2001-05-17 Completed [facility] Conjugate, PCV7 00:00:00 [facility] (Prevnar7) [facility] Polio (IPV/OPV) 2001-05-17 Completed [facility] 00:00:00 [facility] Varicella 2001-05-17 Completed [facility] (varivax)(chicken 00:00:00 [facility] pox) [facility] Polio (IPV/OPV) 2001-05-17 Completed [facility] 00:00:00 [facility] Varicella 2001-05-17 Completed [facility] (varivax)(chicken 00:00:00 [place] [facility] pox) [facility] Pneumococcal 7 2001-05-17 Completed [facility] Conjugate, PCV7 00:00:00 [place] [facility] (Prevnar7) [facility] Polio (IPV/OPV) 2001-05-17 Completed [facility] 00:00:00 [facility] Varicella 2001-05-17 Completed [facility] (varivax)(chicken 00:00:00 [place] [facility] pox) Branch Pneumococcal 7 2001-05-17 Completed [facility] Conjugate, PCV7 00:00:00 [place] [facility] (Prevnar7) [facility] Polio (IPV/OPV) 2001-05-17 Completed [facility] 00:00:00 [facility] Varicella 2001-05-17 Completed [facility] (varivax)(chicken 00:00:00 [place] [facility] pox) [facility] Pneumococcal 7 2001-05-17 Completed [facility] Conjugate, PCV7 00:00:00 [place] [facility] (Prevnar7) [facility] Polio (IPV/OPV) 2001-05-17 Completed [facility] 00:00:00 [facility] Varicella 2001-05-17 Completed [facility] (varivax)(chicken 00:00:00 [place] [facility] pox) [facility] Pneumococcal 7 2001-05-17 Completed [facility] Conjugate, PCV7 00:00:00 [place] [facility] (Prevnar7) [facility] Polio (IPV/OPV) 2001-05-17 Completed [facility] 00:00:00 [facility] Varicella 2001-05-17 Completed [facility] (varivax)(chicken 00:00:00 [place] [facility] pox) [facility] Pneumococcal 7 2001-05-17 Completed [facility] Conjugate, PCV7 00:00:00 [place] [facility] (Prevnar7) [facility] Polio (IPV/OPV) 2001-05-17 Completed [facility] 00:00:00 [facility] Varicella 2001-05-17 Completed [facility] (varivax)(chicken 00:00:00 [place] [facility] pox) [facility] Pneumococcal 7 2001-05-17 Completed [facility] Conjugate, PCV7 00:00:00 [place] [facility] (Prevnar7) [facility] Polio (IPV/OPV) 2001-05-17 Completed [facility] 00:00:00 [facility] Varicella 2001-05-17 Completed [facility] (varivax)(chicken 00:00:00 [place] [facility] pox) [facility] Pneumococcal 7 2001-05-17 Completed [facility] Conjugate, PCV7 00:00:00 [place] [facility] (Prevnar7) [facility] Polio (IPV/OPV) 2001-05-17 Completed [facility] 00:00:00 [facility] Varicella 2001-05-17 Completed [facility] (varivax)(chicken 00:00:00 [place] [facility] pox) [facility] Pneumococcal 7 2001-05-17 Completed [facility] Conjugate, PCV7 00:00:00 [place] [facility] (Prevnar7) [facility] Polio (IPV/OPV) 2001-05-17 Completed [facility] 00:00:00 [facility] Varicella 2001-05-17 Completed [facility] (varivax)(chicken 00:00:00 [place] [facility] pox) Branch Pneumococcal 7 2001-05-17 Completed [facility] Conjugate, PCV7 00:00:00 [place] [facility] (Prevnar7) Branch Pneumococcal 7 2001-05-17 Completed [facility] Conjugate, PCV7 00:00:00 [place] [facility] (Prevnar7) [facility] Polio (IPV/OPV) 2001-05-17 Completed [facility] 00:00:00 [facility] Varicella 2001-05-17 Completed [facility] (varivax)(chicken 00:00:00 [place] [facility] pox) [facility] Polio (IPV/OPV) 2001-05-17 Completed [facility] 00:00:00 [facility] Varicella 2001-05-17 Completed [facility] (varivax)(chicken 00:00:00 [place] [facility] pox) Branch Pneumococcal 7 2001-05-17 Completed [facility] Conjugate, PCV7 00:00:00 [place] [facility] (Prevnar7) Branch Polio (IPV/OPV) 2001-05-17 Completed [facility] 00:00:00 [facility] Varicella 2001-05-17 Completed [facility] (varivax)(chicken 00:00:00 [place] [facility] pox) Branch Pneumococcal 7 2001-05-17 Completed [facility] Conjugate, PCV7 00:00:00 [place] [facility] (Prevnar7) [facility] Polio (IPV/OPV) 2001-05-17 Completed [facility] 00:00:00 [facility] Varicella 2001-05-17 Completed [facility] (varivax)(chicken 00:00:00 [place] [facility] pox) Branch Pneumococcal 7 2001-05-17 Completed [facility] Conjugate, PCV7 00:00:00 [place] [facility] (Prevnar7) [facility] Polio (IPV/OPV) 2001-05-17 Completed [facility] 00:00:00 [facility] Varicella 2001-05-17 Completed [facility] (varivax)(chicken 00:00:00 [place] [facility] pox) Branch Pneumococcal 7 2001-05-17 Completed [facility] Conjugate, PCV7 00:00:00 [place] [facility] (Prevnar7) [facility] Polio (IPV/OPV) 2001-05-17 Completed [facility] 00:00:00 [facility] Varicella 2001-05-17 Completed [facility] (varivax)(chicken 00:00:00 [place] [facility] pox) Branch Pneumococcal 7 2001-05-17 Completed [facility] Conjugate, PCV7 00:00:00 [place] [facility] (Prevnar7) Branch Polio (IPV/OPV) 2001-05-17 Completed [facility] 00:00:00 [facility] Varicella 2001-05-17 Completed [facility] (varivax)(chicken 00:00:00 [place] [facility] pox) Branch Pneumococcal 7 2001-05-17 Completed [facility] Conjugate, PCV7 00:00:00 [place] [facility] (Prevnar7) [facility] Polio (IPV/OPV) 2001-05-17 Completed [facility] 00:00:00 [facility] Varicella 2001-05-17 Completed [facility] (varivax)(chicken 00:00:00 [place] [facility] pox) Branch Pneumococcal 7 2001-05-17 Completed [facility] Conjugate, PCV7 00:00:00 [place] [facility] (Prevnar7) [facility] Polio (IPV/OPV) 2001-05-17 Completed [facility] 00:00:00 [facility] Varicella 2001-05-17 Completed [facility] (varivax)(chicken 00:00:00 [place] [facility] pox) Branch Pneumococcal 7 2001-05-17 Completed [facility] Conjugate, PCV7 00:00:00 [place] [facility] (Prevnar7) [facility] Pneumococcal 7 2001-05-17 Completed [facility] Conjugate, PCV7 00:00:00 [place] [facility] (Prevnar7) [facility] Polio (IPV/OPV) 2001-05-17 Completed [facility] 00:00:00 [facility] Varicella 2001-05-17 Completed [facility] (varivax)(chicken 00:00:00 [place] [facility] pox) [facility] Polio (IPV/OPV) 2001-05-17 Completed [facility] 00:00:00 [facility] Varicella 2001-05-17 Completed [facility] (varivax)(chicken 00:00:00 [place] [facility] pox) [facility] Pneumococcal 7 2001-05-17 Completed [facility] Conjugate, PCV7 00:00:00 [place] [facility] (Prevnar7) [facility] Polio (IPV/OPV) 2001-05-17 Completed [facility] 00:00:00 [facility] Varicella 2001-05-17 Completed [facility] (varivax)(chicken 00:00:00 [place] [facility] pox) Branch Pneumococcal 7 2001-05-17 Completed [facility] Conjugate, PCV7 00:00:00 [place] [facility] (Prevnar7) [facility] Polio (IPV/OPV) 2001-05-17 Completed [facility] 00:00:00 [facility] Varicella 2001-05-17 Completed [facility] (varivax)(chicken 00:00:00 [place] [facility] pox) Branch Pneumococcal 7 2001-05-17 Completed [facility] Conjugate, PCV7 00:00:00 [place] [facility] (Prevnar7) [facility] Polio (IPV/OPV) 2001-05-17 Completed [facility] 00:00:00 [facility] Varicella 2001-05-17 Completed [facility] (varivax)(chicken 00:00:00 [place] [facility] pox) Branch Pneumococcal 7 2001-05-17 Completed [facility] Conjugate, PCV7 00:00:00 [place] [facility] (Prevnar7) [facility] Polio (IPV/OPV) 2001-05-17 Completed [facility] 00:00:00 [facility] Varicella 2001-05-17 Completed [facility] (varivax)(chicken 00:00:00 [place] [facility] pox) [facility] Pneumococcal 7 2001-05-17 Completed [facility] Conjugate, PCV7 00:00:00 [place] [facility] (Prevnar7) [facility] Polio (IPV/OPV) 2001-05-17 Completed [facility] 00:00:00 [facility] Varicella 2001-05-17 Completed [facility] (varivax)(chicken 00:00:00 [place] [facility] pox) Branch Pneumococcal 7 2001-05-17 Completed [facility] Conjugate, PCV7 00:00:00 [place] [facility] (Prevnar7) [facility] Polio (IPV/OPV) 2001-05-17 Completed [facility] 00:00:00 [facility] Varicella 2001-05-17 Completed [facility] (varivax)(chicken 00:00:00 [place] [facility] pox) Branch Pneumococcal 7 2001-05-17 Completed [facility] Conjugate, PCV7 00:00:00 [place] [facility] (Prevnar7) [facility] Polio (IPV/OPV) 2001-05-17 Completed [facility] 00:00:00 [facility] Varicella 2001-05-17 Completed [facility] (varivax)(chicken 00:00:00 [place] [facility] pox) Branch Pneumococcal 7 2001-05-17 Completed [facility] Conjugate, PCV7 00:00:00 [place] [facility] (Prevnar7) Branch Pneumococcal 7 2001-05-17 Completed [facility] Conjugate, PCV7 00:00:00 [place] [facility] (Prevnar7) [facility] Polio (IPV/OPV) 2001-05-17 Completed [facility] 00:00:00 [facility] Varicella 2001-05-17 Completed [facility] (varivax)(chicken 00:00:00 [place] [facility] pox) Branch Polio (IPV/OPV) 2001-05-17 Completed [facility] 00:00:00 [facility] Varicella 2001-05-17 Completed [facility] (varivax)(chicken 00:00:00 [place] [facility] pox) Branch Pneumococcal 7 2001-05-17 Completed [facility] Conjugate, PCV7 00:00:00 [place] [facility] (Prevnar7) [facility] Polio (IPV/OPV) 2001-05-17 Completed [facility] 00:00:00 [facility] Varicella 2001-05-17 Completed [facility] (varivax)(chicken 00:00:00 [place] [facility] pox) Branch Pneumococcal 7 2001-05-17 Completed [facility] Conjugate, PCV7 00:00:00 [place] [facility] (Prevnar7) [facility] Polio (IPV/OPV) 2001-05-17 Completed [facility] 00:00:00 [facility] Varicella 2001-05-17 Completed [facility] (varivax)(chicken 00:00:00 [place] [facility] pox) Branch Pneumococcal 7 2001-05-17 Completed [facility] Conjugate, PCV7 00:00:00 [place] [facility] (Prevnar7) [facility] Polio (IPV/OPV) 2001-05-17 Completed [facility] 00:00:00 [facility] Varicella 2001-05-17 Completed [facility] (varivax)(chicken 00:00:00 [place] [facility] pox) Branch Pneumococcal 7 2001-05-17 Completed [facility] Conjugate, PCV7 00:00:00 [place] [facility] (Prevnar7) Branch Polio (IPV/OPV) 2001-05-17 Completed [facility] 00:00:00 [facility] Varicella 2001-05-17 Completed [facility] (varivax)(chicken 00:00:00 [place] [facility] pox) Branch Pneumococcal 7 2001-05-17 Completed [facility] Conjugate, PCV7 00:00:00 [place] [facility] (Prevnar7) [facility] Polio (IPV/OPV) 2001-05-17 Completed [facility] 00:00:00 [facility] Varicella 2001-05-17 Completed [facility] (varivax)(chicken 00:00:00 [place] [facility] pox) Branch Pneumococcal 7 2001-05-17 Completed [facility] Conjugate, PCV7 00:00:00 [place] [facility] (Prevnar7) Branch Polio (IPV/OPV) 2001-05-17 Completed [facility] 00:00:00 [facility] Varicella 2001-05-17 Completed [facility] (varivax)(chicken 00:00:00 [place] [facility] pox) Branch Pneumococcal 7 2001-05-17 Completed [facility] Conjugate, PCV7 00:00:00 [place] [facility] (Prevnar7) [facility] Polio (IPV/OPV) 2001-05-17 Completed [facility] 00:00:00 [facility] Varicella 2001-05-17 Completed [facility] (varivax)(chicken 00:00:00 [place] [facility] pox) Branch Pneumococcal 7 2001-05-17 Completed [facility] Conjugate, PCV7 00:00:00 [place] [facility] (Prevnar7) Branch Polio (IPV/OPV) 2001-05-17 Completed [facility] 00:00:00 [facility] Varicella 2001-05-17 Completed [facility] (varivax)(chicken 00:00:00 [place] [facility] pox) Branch Pneumococcal 7 2001-05-17 Completed [facility] Conjugate, PCV7 00:00:00 [place] [facility] (Prevnar7) Branch Polio (IPV/OPV) 2001-05-17 Completed [facility] 00:00:00 [facility] Pneumococcal 7 2001-05-17 Completed [facility] Conjugate, PCV7 00:00:00 [place] [facility] (Prevnar7) Branch Polio (IPV/OPV) 2001-05-17 Completed [facility] 00:00:00 [facility] Varicella 2001-05-17 Completed [facility] (varivax)(chicken 00:00:00 [place] [facility] pox) [facility] Varicella 2001-05-17 Completed [facility] (varivax)(chicken 00:00:00 [place] [facility] pox) Branch Pneumococcal 7 2001-05-17 Completed [facility] Conjugate, PCV7 00:00:00 [place] [facility] (Prevnar7) Branch Polio (IPV/OPV) 2001-05-17 Completed [facility] 00:00:00 [facility] Varicella 2001-05-17 Completed [facility] (varivax)(chicken 00:00:00 [place] [facility] pox) Branch Pneumococcal 7 2001-05-17 Completed [facility] Conjugate, PCV7 00:00:00 [place] [facility] (Prevnar7) [facility] Polio (IPV/OPV) 2001-05-17 Completed [facility] 00:00:00 [facility] Varicella 2001-05-17 Completed [facility] (varivax)(chicken 00:00:00 [place] [facility] pox) Branch Pneumococcal 7 2001-05-17 Completed [facility] Conjugate, PCV7 00:00:00 [place] [facility] (Prevnar7) [facility] Polio (IPV/OPV) 2001-05-17 Completed [facility] 00:00:00 [facility] Varicella 2001-05-17 Completed [facility] (varivax)(chicken 00:00:00 [place] [facility] pox) Branch Pneumococcal 7 2001-05-17 Completed [facility] Conjugate, PCV7 00:00:00 [place] [facility] (Prevnar7) [facility] Polio (IPV/OPV) 2001-05-17 Completed [facility] 00:00:00 [facility] Varicella 2001-05-17 Completed [facility] (varivax)(chicken 00:00:00 [place] [facility] pox) Branch Pneumococcal 7 2001-05-17 Completed [facility] Conjugate, PCV7 00:00:00 [place] [facility] (Prevnar7) Branch Polio (IPV/OPV) 2001-05-17 Completed [facility] 00:00:00 [facility] Varicella 2001-05-17 Completed [facility] (varivax)(chicken 00:00:00 [place] [facility] pox) Branch Pneumococcal 7 2001-05-17 Completed [facility] Conjugate, PCV7 00:00:00 [place] [facility] (Prevnar7) [facility] Polio (IPV/OPV) 2001-05-17 Completed [facility] 00:00:00 [facility] Varicella 2001-05-17 Completed [facility] (varivax)(chicken 00:00:00 [place] [facility] pox) Branch Pneumococcal 7 2001-05-17 Completed [facility] Conjugate, PCV7 00:00:00 [place] [facility] (Prevnar7) [facility] Polio (IPV/OPV) 2001-05-17 Completed [facility] 00:00:00 [facility] Varicella 2001-05-17 Completed [facility] (varivax)(chicken 00:00:00 [place] [facility] pox) Branch Pneumococcal 7 2001-05-17 Completed [facility] Conjugate, PCV7 00:00:00 [place] [facility] (Prevnar7) [facility] Pneumococcal 7 2001-05-17 Completed [facility] Conjugate, PCV7 00:00:00 [place] [facility] (Prevnar7) [facility] Polio (IPV/OPV) 2001-05-17 Completed [facility] 00:00:00 [facility] Varicella 2001-05-17 Completed [facility] (varivax)(chicken 00:00:00 [place] [facility] pox) Branch Polio (IPV/OPV) 2001-05-17 Completed [facility] 00:00:00 [facility] Pneumococcal 7 2001-05-17 Completed [facility] Conjugate, PCV7 00:00:00 [place] [facility] (Prevnar7) [facility] Varicella 2001-05-17 Completed [facility] (varivax)(chicken 00:00:00 [place] [facility] pox) Branch Polio (IPV/OPV) 2001-05-17 Completed [facility] 00:00:00 [facility] Varicella 2001-05-17 Completed [facility] (varivax)(chicken 00:00:00 [place] [facility] pox) Branch Pneumococcal 7 2001-05-17 Completed [facility] Conjugate, PCV7 00:00:00 [place] [facility] (Prevnar7) Branch Polio (IPV/OPV) 2001-05-17 Completed [facility] 00:00:00 [facility] Varicella 2001-05-17 Completed [facility] (varivax)(chicken 00:00:00 [place] [facility] pox) Branch Pneumococcal 7 2001-05-17 Completed [facility] Conjugate, PCV7 00:00:00 [place] [facility] (Prevnar7) Branch Polio (IPV/OPV) 2001-05-17 Completed [facility] 00:00:00 [facility] Varicella 2001-05-17 Completed [facility] (varivax)(chicken 00:00:00 [place] [facility] pox) Branch Pneumococcal 7 2001-05-17 Completed [facility] Conjugate, PCV7 00:00:00 [place] [facility] (Prevnar7) Branch Polio (IPV/OPV) 2001-05-17 Completed [facility] 00:00:00 [facility] Varicella 2001-05-17 Completed [facility] (varivax)(chicken 00:00:00 [place] [facility] pox) Branch Pneumococcal 7 2001-05-17 Completed [facility] Conjugate, PCV7 00:00:00 [place] [facility] (Prevnar7) Branch Polio (IPV/OPV) 2001-05-17 Completed [facility] 00:00:00 [facility] Varicella 2001-05-17 Completed [facility] (varivax)(chicken 00:00:00 [place] [facility] pox) Branch Pneumococcal 7 2001-05-17 Completed [facility] Conjugate, PCV7 00:00:00 [place] [facility] (Prevnar7) Branch Polio (IPV/OPV) 2001-05-17 Completed [facility] 00:00:00 [facility] Varicella 2001-05-17 Completed [facility] (varivax)(chicken 00:00:00 [place] [facility] pox) Branch Pneumococcal 7 2001-05-17 Completed [facility] Conjugate, PCV7 00:00:00 [place] [facility] (Prevnar7) Branch Polio (IPV/OPV) 2001-05-17 Completed [facility] 00:00:00 [facility] Varicella 2001-05-17 Completed [facility] (varivax)(chicken 00:00:00 [place] [facility] pox) Branch Pneumococcal 7 2001-05-17 Completed [facility] Conjugate, PCV7 00:00:00 [place] [facility] (Prevnar7) [facility] Polio (IPV/OPV) 2001-05-17 Completed [facility] 00:00:00 [facility] Varicella 2001-05-17 Completed [facility] (varivax)(chicken 00:00:00 [place] [facility] pox) Branch Pneumococcal 7 2001-05-17 Completed [facility] Conjugate, PCV7 00:00:00 [place] [facility] (Prevnar7) [facility] Polio (IPV/OPV) 2001-05-17 Completed [facility] 00:00:00 [facility] Varicella 2001-05-17 Completed [facility] (varivax)(chicken 00:00:00 [place] [facility] pox) Branch Pneumococcal 7 2001-05-17 Completed [facility] Conjugate, PCV7 00:00:00 [place] [facility] (Prevnar7) [facility] Polio (IPV/OPV) 2001-05-17 Completed [facility] 00:00:00 [facility] Varicella 2001-05-17 Completed [facility] (varivax)(chicken 00:00:00 [place] [facility] pox) [facility] Pneumococcal 7 2001-05-17 Completed [facility] Conjugate, PCV7 00:00:00 [place] [facility] (Prevnar7) [facility] Polio (IPV/OPV) 2001-05-17 Completed [facility] 00:00:00 [facility] Varicella 2001-05-17 Completed [facility] (varivax)(chicken 00:00:00 [place] [facility] pox) Branch Pneumococcal 7 2001-05-17 Completed [facility] Conjugate, PCV7 00:00:00 [place] [facility] (Prevnar7) Branch Pneumococcal 7 2001-05-17 Completed [facility] Conjugate, PCV7 00:00:00 [place] [facility] (Prevnar7) [facility] Polio (IPV/OPV) 2001-05-17 Completed [facility] 00:00:00 [facility] Varicella 2001-05-17 Completed [facility] (varivax)(chicken 00:00:00 [place] [facility] pox) [facility] Polio (IPV/OPV) 2001-05-17 Completed [facility] 00:00:00 [facility] Varicella 2001-05-17 Completed [facility] (varivax)(chicken 00:00:00 [place] [facility] pox) [facility] Pneumococcal 7 2001-05-17 Completed [facility] Conjugate, PCV7 00:00:00 [place] [facility] (Prevnar7) [facility] Pneumococcal 7 2001-05-17 Completed [facility] Conjugate, PCV7 00:00:00 [place] [facility] (Prevnar7) [facility] Polio (IPV/OPV) 2001-05-17 Completed [facility] 00:00:00 [facility] Varicella 2001-05-17 Completed [facility] (varivax)(chicken 00:00:00 [place] [facility] pox) [facility] Polio (IPV/OPV) 2001-05-17 Completed [facility] 00:00:00 [facility] Varicella 2001-05-17 Completed [facility] (varivax)(chicken 00:00:00 [place] [facility] pox) Branch Pneumococcal 7 2001-05-17 Completed [facility] Conjugate, PCV7 00:00:00 [place] [facility] (Prevnar7) [facility] Polio (IPV/OPV) 2001-05-17 Completed [facility] 00:00:00 [facility] Varicella 2001-05-17 Completed [facility] (varivax)(chicken 00:00:00 [place] [facility] pox) [facility] Pneumococcal 7 2001-05-17 Completed [facility] Conjugate, PCV7 00:00:00 [place] [facility] (Prevnar7) [facility] Polio (IPV/OPV) 2001-05-17 Completed [facility] 00:00:00 [facility] Varicella 2001-05-17 Completed [facility] (varivax)(chicken 00:00:00 [place] [facility] pox) [facility] Pneumococcal 7 2001-05-17 Completed [facility] Conjugate, PCV7 00:00:00 [place] [facility] (Prevnar7) [facility] Polio (IPV/OPV) 2001-05-17 Completed [facility] 00:00:00 [facility] Varicella 2001-05-17 Completed [facility] (varivax)(chicken 00:00:00 [place] [facility] pox) [facility] Pneumococcal 7 2001-05-17 Completed [facility] Conjugate, PCV7 00:00:00 [place] [facility] (Prevnar7) [facility] Polio (IPV/OPV) 2001-05-17 Completed [facility] 00:00:00 [facility] Varicella 2001-05-17 Completed [facility] (varivax)(chicken 00:00:00 [place] [facility] pox) [facility] Pneumococcal 7 2001-05-17 Completed [facility] Conjugate, PCV7 00:00:00 [place] [facility] (Prevnar7) [facility] Polio (IPV/OPV) 2001-05-17 Completed [facility] 00:00:00 [facility] Varicella 2001-05-17 Completed [facility] (varivax)(chicken [...] 2001-04-06 Completed [facility] Conjugate, PCV7 00:00:00 [place] [facility] (Prevnar7) [facility] DTAP 2000 Completed [facility] 00:00:00 [facility] HIB 4 Dose Schedule 2000 Completed [facility] 00:00:00 [facility] Hep B, Adol or Pedi 2000 Completed [facility] Dosage 00:00:00 [facility] Hep B, Adol or Pedi 2000 Completed [facility] Dosage 00:00:00 [facility] DTAP 2000 Completed [facility] 00:00:00 [facility] HIB 4 Dose Schedule 2000 Completed [facility] 00:00:00 [facility] Hep B, Adol or Pedi 2000 Completed [facility] Dosage 00:00:00 [facility] DTAP 2000 Completed [facility] 00:00:00 [facility] HIB 4 Dose Schedule 2000 Completed [facility] 00:00:00 [facility] Hep B, Adol or Pedi 2000 Completed [facility] of Dosage 00:00:00 [facility] DTAP 2000 Completed [facility] 00:00:00 [facility] HIB 4 Dose Schedule 2000 Completed [facility] 00:00:00 [facility] Hep B, Adol or Pedi 2000 Completed [facility] of Dosage 00:00:00 [facility] DTAP 2000 Completed [facility] 00:00:00 [facility] HIB 4 Dose Schedule 2000 Completed [facility] 00:00:00 [facility] Hep B, Adol or Pedi 2000 Completed [facility] of Dosage 00:00:00 [facility] DTAP 2000 Completed [facility] 00:00:00 [facility] HIB 4 Dose Schedule 2000 Completed [facility] 00:00:00 [facility] Hep B, Adol or Pedi 2000 Completed [facility] Dosage 00:00:00 [facility] DTAP 2000 Completed [facility] 00:00:00 [facility] HIB 4 Dose Schedule 2000 Completed [facility] 00:00:00 [facility] Hep B, Adol or Pedi 2000 Completed [facility] of Dosage 00:00:00 [facility] DTAP 2000 Completed [facility] 00:00:00 [facility] HIB 4 Dose Schedule 2000 Completed [facility] 00:00:00 [facility] Hep B, Adol or Pedi 2000 Completed [facility] of Dosage 00:00:00 [facility] DTAP 2000 Completed [facility] 00:00:00 [facility] HIB 4 Dose Schedule 2000 Completed [facility] 00:00:00 [facility] Hep B, Adol or Pedi 2000 Completed [facility] of Dosage 00:00:00 [facility] DTAP 2000 Completed [facility] 00:00:00 [facility] HIB 4 Dose Schedule 2000 Completed [facility] of 00:00:00 [facility] Hep B, Adol or Pedi 2000 Completed [facility] of Dosage 00:00:00 [facility] DTAP 2000 Completed [facility] 00[facility]:00 [facility] DTAP 2000 Completed [facility] 00:00:00 [facility] HIB 4 Dose Schedule 2000 Completed [facility] 00:[facility]:00 [facility] Hep B, Adol or Pedi 2000 Completed [facility] Dosage 00:00:00 [facility] DTAP 2000 Completed [facility] 00:00:00 [facility] HIB 4 Dose Schedule 2000 Completed [facility] 00:00:00 [facility] HIB 4 Dose Schedule 2000 Completed [facility] 00:00:00 [facility] Hep B, Adol or Pedi 2000 Completed [facility] Dosage 00:00:00 [facility] DTAP 2000 Completed [facility] 00:00:00 [facility] HIB 4 Dose Schedule 2000 Completed [facility] 00:00:00 [facility] Hep B, Adol or Pedi 2000 Completed [facility] Dosage 00:00:00 [facility] Hep B, Adol or Pedi 2000 Completed [facility] Dosage 00:00:00 [facility] DTAP 2000 Completed [facility] 00:00:00 [facility] HIB 4 Dose Schedule 2000 Completed [facility] 00:00:00 [facility] Hep B, Adol or Pedi 2000 Completed [facility] Dosage 00:00:00 [facility] DTAP 2000 Completed [facility] 00:00:00 [facility] HIB 4 Dose Schedule 2000 Completed [facility] 00:00:00 [facility] Hep B, Adol or Pedi 2000 Completed [facility] Dosage 00:00:00 [facility] DTAP 2000 Completed [facility] 00:00:00 [facility] HIB 4 Dose Schedule 2000 Completed [facility] 00:00:00 [facility] Hep B, Adol or Pedi 2000 Completed [facility] Dosage 00:00:00 [facility] DTAP 2000 Completed [facility] 00:00:00 [facility] HIB 4 Dose Schedule 2000 Completed [facility] 00:00:00 [facility] Hep B, Adol or Pedi 2000 Completed [facility] Dosage 00:00:00 [facility] DTAP 2000 Completed [facility] 00:00:00 [facility] HIB 4 Dose Schedule 2000 Completed [facility] 00:00:00 [facility] Hep B, Adol or Pedi 2000 Completed [facility] Dosage 00:00:00 [facility] DTAP 2000 Completed [facility] 00:00:00 [facility] HIB 4 Dose Schedule 2000 Completed [facility] 00:00:00 [facility] Hep B, Adol or Pedi 2000 Completed [facility] Dosage 00:00:00 [facility] DTAP 2000 Completed [facility] 00:00:00 [facility] HIB 4 Dose Schedule 2000 Completed [facility] 00:00:00 [facility] Hep B, Adol or Pedi 2000 Completed [facility] Dosage 00:00:00 [facility] DTAP 2000 Completed [facility] 00:00:00 [facility] HIB 4 Dose Schedule 2000 Completed [facility] 00:00:00 [facility] Hep B, Adol or Pedi 2000 Completed [facility] Dosage 00:00:00 [facility] DTAP 2000 Completed [facility] 00:00:00 [facility] DTAP 2000 Completed [facility] 00:00:00 [facility] HIB 4 Dose Schedule 2000 Completed [facility] 00:00:00 [facility] Hep B, Adol or Pedi 2000 Completed [facility] Dosage 00:00:00 [facility] HIB 4 Dose Schedule 2000 Completed [facility] 00:00:00 [facility] DTAP 2000 Completed [facility] 00:00:00 [facility] HIB 4 Dose Schedule 2000 Completed [facility] 00:00:00 [facility] Hep B, Adol or Pedi 2000 Completed [facility] Dosage 00:00:00 [facility] Hep B, Adol or Pedi 2000 Completed [facility] Dosage 00:00:00 [facility] DTAP 2000 Completed [facility] 00:00:00 [facility] HIB 4 Dose Schedule 2000 Completed [facility] 00:00:00 [facility] Hep B, Adol or Pedi 2000 Completed [facility] Dosage 00:00:00 [facility] DTAP 2000 Completed [facility] 00:00:00 [facility] HIB 4 Dose Schedule 2000 Completed [facility] 00:00:00 [facility] Hep B, Adol or Pedi 2000 Completed [facility] Dosage 00:00:00 [facility] DTAP 2000 Completed [facility] 00:00:00 [facility] HIB 4 Dose Schedule 2000 Completed [facility] 00:00:00 [facility] Hep B, Adol or Pedi 2000 Completed [facility] Dosage 00:00:00 [facility] DTAP 2000 Completed [facility] 00:00:00 [facility] HIB 4 Dose Schedule 2000 Completed [facility] 00:00:00 [facility] Hep B, Adol or Pedi 2000 Completed [facility] Dosage 00:00:00 [facility] DTAP 2000 Completed [facility] 00:00:00 [facility] HIB 4 Dose Schedule 2000 Completed [facility] 00:00:00 [facility] Hep B, Adol or Pedi 2000 Completed [facility] Dosage 00:00:00 [facility] DTAP 2000 Completed [facility] 00:00:00 [facility] HIB 4 Dose Schedule 2000 Completed [facility] 00:00:00 [facility] Hep B, Adol or Pedi 2000 Completed [facility] Dosage 00:00:00 [facility] DTAP 2000 Completed [facility] 00:00:00 [facility] DTAP 2000 Completed [facility] 00:00:00 [facility] HIB 4 Dose Schedule 2000 Completed [facility] 00:00:00 [facility] Hep B, Adol or Pedi 2000 Completed [facility] Dosage 00:00:00 [facility] HIB 4 Dose Schedule 2000 Completed [facility] 00:00:00 [facility] DTAP 2000 Completed [facility] 00:00:00 [facility] HIB 4 Dose Schedule 2000 Completed [facility] 00:00:00 [facility] Hep B, Adol or Pedi 2000 Completed [facility] Dosage 00:00:00 [facility] DTAP 2000 Completed [facility] 00:00:00 [facility] Hep B, Adol or Pedi 2000 Completed [facility] Dosage 00:00:00 [facility] HIB 4 Dose Schedule 2000 Completed [facility] 00:00:00 [facility] Hep B, Adol or Pedi 2000 Completed [facility] Dosage 00:00:00 [facility] DTAP 2000 Completed [facility] 00:00:00 [facility] HIB 4 Dose Schedule 2000 Completed [facility] 00:00:00 [facility] Hep B, Adol or Pedi 2000 Completed [facility] Dosage 00:00:00 [facility] DTAP 2000 Completed [facility] 00:00:00 [facility] HIB 4 Dose Schedule 2000 Completed [facility] 00:00:00 [facility] Hep B, Adol or Pedi 2000 Completed [facility] Dosage 00:00:00 [facility] DTAP 2000 Completed [facility] 00:00:00 [facility] HIB 4 Dose Schedule 2000 Completed [facility] 00:00:00 [facility] Hep B, Adol or Pedi 2000 Completed [facility] Dosage 00:00:00 [facility] DTAP 2000 Completed [facility] 00:00:00 [facility] HIB 4 Dose Schedule 2000 Completed [facility] 00:00:00 [facility] Hep B, Adol or Pedi 2000 Completed [facility] Dosage 00:00:00 [facility] DTAP 2000 Completed [facility] 00:00:00 [facility] HIB 4 Dose Schedule 2000 Completed [facility] 00:00:00 [facility] Hep B, Adol or Pedi 2000 Completed [facility] Dosage 00:00:00 [facility] DTAP 2000 Completed [facility] 00:00:00 [facility] HIB 4 Dose Schedule 2000 Completed [facility] 00:00:00 [facility] Hep B, Adol or Pedi 2000 Completed [facility] Dosage 00:00:00 [facility] DTAP 2000 Completed [facility] 00:00:00 [facility] DTAP 2000 Completed [facility] 00:00:00 [facility] HIB 4 Dose Schedule 2000 Completed [facility] 00:00:00 [facility] Hep B, Adol or Pedi 2000 Completed [facility] Dosage 00:00:00 [facility] HIB 4 Dose Schedule 2000 Completed [facility] 00:00:00 [facility] DTAP 2000 Completed [facility] 00:00:00 [facility] HIB 4 Dose Schedule 2000 Completed [facility] 00:00:00 [facility] Hep B, Adol or Pedi 2000 Completed [facility] Dosage 00:00:00 [facility] Hep B, Adol or Pedi 2000 Completed [facility] Dosage 00:00:00 [facility] DTAP 2000 Completed [facility] 00:00:00 [facility] HIB 4 Dose Schedule 2000 Completed [facility] 00:00:00 [facility] Hep B, Adol or Pedi 2000 Completed [facility] Dosage 00:00:00 [facility] DTAP 2000 Completed [facility] 00:00:00 [facility] HIB 4 Dose Schedule 2000 Completed [facility] 00:00:00 [facility] Hep B, Adol or Pedi 2000 Completed [facility] Dosage 00:00:00 [facility] DTAP 2000 Completed [facility] 00:00:00 [facility] HIB 4 Dose Schedule 2000 Completed [facility] 00:00:00 [facility] Hep B, Adol or Pedi 2000 Completed [facility] Dosage 00:00:00 [facility] DTAP 2000 Completed [facility] 00:00:00 [facility] HIB 4 Dose Schedule 2000 Completed [facility] 00:00:00 [facility] Hep B, Adol or Pedi 2000 Completed [facility] Dosage 00:00:00 [facility] DTAP 2000 Completed [facility] 00:00:00 [facility] HIB 4 Dose Schedule 2000 Completed [facility] 00:00:00 [facility] Hep B, Adol or Pedi 2000 Completed [facility] Dosage 00:00:00 [facility] DTAP 2000 Completed [facility] 00:00:00 [facility] HIB 4 Dose Schedule 2000 Completed [facility] 00:00:00 [facility] Hep B, Adol or Pedi 2000 Completed [facility] Dosage 00:00:00 [facility] DTAP 2000 Completed [facility] 00:00:00 [facility]IB 4 Dose Schedule 2000 Completed [facility] 00:00:00 [facility] DTAP 2000 Completed [facility] 00:00:00 [facility] HIB 4 Dose Schedule 2000 Completed [facility] 00:00:00 [facility] Hep B, Adol or Pedi 2000 Completed [facility] Dosage 00:00:00 [facility] Hep B, Adol or Pedi 2000 Completed [facility] Dosage 00:00:00 [facility] DTAP 2000 Completed [facility] 00:00:00 [facility] HIB 4 Dose Schedule 2000 Completed [facility] 00:00:00 [facility] Hep B, Adol or Pedi 2000 Completed [facility] Dosage 00:00:00 [facility] DTAP 2000 Completed [facility] 00:00:00 [facility] HIB 4 Dose Schedule 2000 Completed [facility] 00:00:00 [facility] Hep B, Adol or Pedi 2000 Completed [facility] Dosage 00:00:00 [facility] DTAP 2000 Completed [facility] 00:00:00 [facility] HIB 4 Dose Schedule 2000 Completed [facility] 00:00:00 [facility] Hep B, Adol or Pedi 2000 Completed [facility] Dosage 00:00:00 [facility] DTAP 2000 Completed [facility] 00:00:00 [facility] HIB 4 Dose Schedule 2000 Completed [facility] 00:00:00 [facility] Hep B, Adol or Pedi 2000 Completed [facility] Dosage 00:00:00 [facility] DTAP 2000 Completed [facility] 00:00:00 [facility] HIB 4 Dose Schedule 2000 [...] 2000 Completed [facility] Dosage 00:00:00 [facility] DTAP 2000 Completed [facility] 00:00:00 [facility] HIB 4 Dose Schedule 2000 Completed [facility] 00:00:00 [facility] DTAP 2000 Completed [facility] 00:00:00 [facility] Hep B, Adol or Pedi 2000 Completed [facility] Dosage 00:00:00 [facility] DTAP 2000 Completed [facility] 00:00:00 [facility] HIB 4 Dose Schedule 2000 Completed [facility] 00:00:00 [facility] Hep B, Adol or Pedi 2000 Completed [facility] Dosage 00:00:00 [facility] HIB 4 Dose Schedule 2000 Completed [facility] 00:00:00 [facility] DTAP 2000 Completed [facility] 00:00:00 [facility] HIB 4 Dose Schedule 2000 Completed [facility] 00:00:00 [facility] Hep B, Adol or Pedi 2000 Completed [facility] Dosage 00:00:00 [facility] Hep B, Adol or Pedi 2000 Completed [facility] Dosage 00:00:00 [facility] DTAP 2000 Completed [facility] 00:00:00 [facility] HIB 4 Dose Schedule 2000 Completed [facility] 00:00:00 [facility] Hep B, Adol or Pedi 2000 Completed [facility] Dosage 00:00:00 [facility] DTAP 2000 Completed [facility] 00:00:00 [facility] HIB 4 Dose Schedule 2000 Completed [facility] 00:00:00 [facility] Hep B, Adol or Pedi 2000 Completed [facility] Dosage 00:00:00 [facility] DTAP 2000 Completed [facility] 00:00:00 [facility] HIB 4 Dose Schedule 2000 Completed [facility] 00:00:00 [facility] Hep B, Adol or Pedi 2000 Completed [facility] Dosage 00:00:00 [facility] DTAP 2000 Completed [facility] 00:00:00 [facility] HIB 4 Dose Schedule 2000 Completed [facility] 00:00:00 [facility] Hep B, Adol or Pedi 2000 Completed [facility] Dosage 00:00:00 [facility] DTAP 2000 Completed [facility] 00:00:00 [facility] HIB 4 Dose Schedule 2000 Completed [facility] 00:00:00 [facility] Hep B, Adol or Pedi 2000 Completed [facility] Dosage 00:00:00 [facility] DTAP 2000 Completed [facility] 00:00:00 [facility] HIB 4 Dose Schedule 2000 Completed [facility] 00:00:00 [facility] Hep B, Adol or Pedi 2000 Completed [facility] Dosage 00:00:00 [facility] DTAP 2000 Completed [facility] 00:00:00 [facility] HIB 4 Dose Schedule 2000 Completed [facility] 00:00:00 [facility] Hep B, Adol or Pedi 2000 Completed [facility] Dosage 00:00:00 [facility] DTAP 2000 Completed [facility] 00:00:00 [facility] DTAP 2000 Completed [facility] 00:00:00 [facility] HIB 4 Dose Schedule 2000 Completed [facility] 00:00:00 [facility] Hep B, Adol or Pedi 2000 Completed [facility] Dosage 00:00:00 [facility] HIB 4 Dose Schedule 2000 Completed [facility] 00:00:00 [facility] DTAP 2000 Completed [facility] 00:00:00 [facility] HIB 4 Dose Schedule 2000 Completed [facility] 00:00:00 [facility] Hep B, Adol or Pedi 2000 Completed [facility] Dosage 00:00:00 [facility] Hep B, Adol or Pedi 2000 Completed [facility] Dosage 00:00:00 [facility] DTAP 2000 Completed [facility] 00:00:00 [facility] HIB 4 Dose Schedule 2000 Completed [facility] 00:00:00 [facility] Hep B, Adol or Pedi 2000 Completed [facility] Dosage 00:00:00 [facility] DTAP 2000 Completed [facility] 00:00:00 [facility] HIB 4 Dose Schedule 2000 Completed [facility] 00:00:00 [facility] Hep B, Adol or Pedi 2000 Completed [facility] Dosage 00:00:00 [facility] DTAP 2000 Completed [facility] 00:00:00 [facility] HIB 4 Dose Schedule 2000 Completed [facility] 00:00:00 [facility] Hep B, Adol or Pedi 2000 Completed [facility] Dosage 00:00:00 [facility] DTAP 2000 Completed [facility] 00:00:00 [facility] HIB 4 Dose Schedule 2000 Completed [facility] 00:00:00 [facility] Hep B, Adol or Pedi 2000 Completed [facility] Dosage 00:00:00 [facility] DTAP 2000 Completed [facility] 00:00:00 [facility] HIB 4 Dose Schedule 2000 Completed [facility] 00:00:00 [facility] Hep B, Adol or Pedi 2000 Completed [facility] Dosage 00:00:00 [facility] DTAP 2000 Completed [facility] 00:00:00 [facility] HIB 4 Dose Schedule 2000 Completed [facility] 00:00:00 [facility] Hep B, Adol or Pedi 2000 Completed [facility] Dosage 00:00:00 [facility] DTAP 2000 Completed [facility] 00:00:00 [facility] DTAP 2000 Completed [facility] 00:00:00 [facility] HIB 4 Dose Schedule 2000 Completed [facility] 00:00:00 [facility] Hep B, Adol or Pedi 2000 Completed [facility] Dosage 00:00:00 [facility] HIB 4 Dose Schedule 2000 Completed [facility] 00:00:00 [facility] DTAP 2000 Completed [facility] 00:00:00 [facility] HIB 4 Dose Schedule 2000 Completed [facility] 00:00:00 [facility] Hep B, Adol or Pedi 2000 Completed [facility] Dosage 00:00:00 [facility] Hep B, Adol or Pedi 2000 Completed [facility] Dosage 00:00:00 [facility] DTAP 2000 Completed [facility] 00:00:00 [facility] HIB 4 Dose Schedule 2000 Completed [facility] 00:00:00 [facility] Hep B, Adol or Pedi 2000 Completed [facility] Dosage 00:00:00 [facility] DTAP 2000 Completed [facility] 00:00:00 [facility] HIB 4 Dose Schedule 2000 Completed [facility] 00:00:00 [facility] Hep B, Adol or Pedi 2000 Completed [facility] Dosage 00:00:00 [facility] DTAP 2000 Completed [facility] 00:00:00 [facility] HIB 4 Dose Schedule 2000 Completed [facility] 00:00:00 [facility] Hep B, Adol or Pedi 2000 Completed [facility] Dosage 00:00:00 [facility] DTAP 2000 Completed [facility] 00:00:00 [facility] HIB 4 Dose Schedule 2000 Completed [facility] 00:00:00 [facility] Hep B, Adol or Pedi 2000 Completed [facility] Dosage 00:00:00 [facility] DTAP 2000 Completed [facility] 00:00:00 [facility] HIB 4 Dose Schedule 2000 Completed [facility] 00:00:00 [facility] Hep B, Adol or Pedi 2000 Completed [facility] Dosage 00:00:00 [facility] DTAP 2000 Completed [facility] 00:00:00 [facility] HIB 4 Dose Schedule 2000 Completed [facility] 00:00:00 [facility] Hep B, Adol or Pedi 2000 Completed [facility] Dosage 00:00:00 [facility] DTAP 2000 Completed [facility] 00:00:00 [facility] DTAP 2000 Completed [facility] 00:00:00 [facility] HIB 4 Dose Schedule 2000 Completed [facility] 00:00:00 [facility] Hep B, Adol or Pedi 2000 Completed [facility] Dosage 00:00:00 [facility] DTAP 2000 Completed [facility] 00:00:00 [facility] HIB 4 Dose Schedule 2000 Completed [facility] 00:00:00 [facility] HIB 4 Dose Schedule 2000 Completed [facility] 00:00:00 [facility] Hep B, Adol or Pedi 2000 Completed [facility] Dosage 00:00:00 [facility] DTAP 2000 Completed [facility] 00:00:00 [facility] HIB 4 Dose Schedule 2000 Completed [facility] 00:00:00 [facility] Hep B, Adol or Pedi 2000 Completed [facility] Dosage 00:00:00 [facility] Hep B, Adol or Pedi 2000 Completed [facility] Dosage 00:00:00 [facility] DTAP 2000 Completed [facility] 00:00:00 [facility] HIB 4 Dose Schedule 2000 Completed [facility] 00:00:00 [facility] Hep B, Adol or Pedi 2000 Completed [facility] Dosage 00:00:00 [facility] DTAP 2000 Completed [facility] 00:00:00 [facility] HIB 4 Dose Schedule 2000 Completed [facility] 00:00:00 [facility] DTAP 2000 Completed [facility] 00:00:00 [facility] Hep B, Adol or Pedi 2000 Completed [facility] Dosage 00:00:00 [facility] DTAP 2000 Completed [facility] 00:00:00 [facility] HIB 4 Dose Schedule 2000 Completed [facility] 00:00:00 [facility] Hep B, Adol or Pedi 2000 Completed [facility] Dosage 00:00:00 [facility] DTAP 2000 Completed [facility] 00:00:00 [facility] HIB 4 Dose Schedule 2000 Completed [facility] 00:00:00 [facility] Hep B, Adol or Pedi 2000 Completed [facility] Dosage 00:00:00 [facility] DTAP 2000 Completed [facility] 00:00:00 [facility] HIB 4 Dose Schedule 2000 Completed [facility] 00:00:00 [facility] Hep B, Adol or Pedi 2000 Completed [facility] Dosage 00:00:00 [facility] DTAP 2000 Completed [facility] 00:00:00 [facility] HIB 4 Dose Schedule 2000 Completed [facility] 00:00:00 [facility] Hep B, Adol or Pedi 2000 Completed [facility] Dosage 00:00:00 [facility] DTAP 2000 Completed [facility] 00:00:00 [facility] DTAP 2000 Completed [facility] 00:00:00 [facility] HIB 4 Dose Schedule 2000 Completed [facility] 00:00:00 [facility] Hep B, Adol or Pedi 2000 Completed [facility] Dosage 00:00:00 [facility] HIB 4 Dose Schedule 2000 Completed [facility] 00:00:00 [facility] DTAP 2000 Completed [facility] 00:00:00 [facility] HIB 4 Dose Schedule 2000 Completed [facility] 00:00:00 [facility] Hep B, Adol or Pedi 2000 Completed [facility] Dosage 00:00:00 [facility] Hep B, Adol or Pedi 2000 Completed [facility] Dosage 00:00:00 [facility] DTAP 2000 Completed [facility] 00:00:00 [facility] HIB 4 Dose Schedule 2000 Completed [facility] 00:00:00 [facility] Hep B, Adol or Pedi 2000 Completed [facility] Dosage 00:00:00 [facility] DTAP 2000 Completed [facility] [...] 2000 Completed [facility] Dosage 00:00:00 [facility] HIB 4 Dose Schedule 2000 Completed [facility] 00:00:00 [facility] DTAP 2000 Completed [facility] 00:00:00 [facility] HIB 4 Dose Schedule 2000 Completed [facility] 00:00:00 [facility] Hep B, Adol or Pedi 2000 Completed [facility] Dosage 00:00:00 [facility] DTAP 2000 Completed [facility] 00:00:00 [facility] HIB 4 Dose Schedule 2000 Completed [facility] 00:00:00 [facility] Hep B, Adol or Pedi 2000 Completed [facility] Dosage 00:00:00 [facility] DTAP 2000 Completed [facility] 00:00:00 [facility] DTAP 2000 Completed [facility] 00:00:00 [facility] HIB 4 Dose Schedule 2000 Completed [facility] 00:00:00 [facility] Hep B, Adol or Pedi 2000 Completed [facility] Dosage 00:00:00 [facility] DTAP 2000 Completed [facility] 00:00:00 [facility] HIB 4 Dose Schedule 2000 Completed [facility] 00:00:00 [facility] HIB 4 Dose Schedule 2000 Completed [facility] 00:00:00 [facility] Hep B, Adol or Pedi 2000 Completed [facility] Dosage 00:00:00 [facility] DTAP 2000 Completed [facility] 00:00:00 [facility] HIB 4 Dose Schedule 2000 Completed [facility] 00:00:00 [facility] Hep B, Adol or Pedi 2000 Completed [facility] Dosage 00:00:00 [facility] Hep B, Adol or Pedi 2000 Completed [facility] Dosage 00:00:00 [facility] DTAP 2000 Completed [facility] 00:00:00 [facility] HIB 4 Dose Schedule 2000 Completed [facility] 00:00:00 [facility] Hep B, Adol or Pedi 2000 Completed [facility] Dosage 00:00:00 [facility] DTAP 2000 Completed [facility] 00:00:00 [facility] HIB 4 Dose Schedule 2000 Completed [facility] 00:00:00 [facility] Hep B, Adol or Pedi 2000 Completed [facility] Dosage 00:00:00 [facility] DTAP 2000 Completed [facility] 00:00:00 [facility] HIB 4 Dose Schedule 2000 Completed [facility] 00:00:00 [facility] Hep B, Adol or Pedi 2000 Completed [facility] 00:00:00 [facility] DTAP 2000 Completed [facility] 00:[facility]:00 [facility] HIB 4 Dose Schedule 2000 Completed [facility] 00:00:00 [facility] Hep B, Adol or Pedi 2000 Completed [facility] Dosage 00:00:00 [facility] DTAP 2000 Completed [facility] 00:00:00 [facility] HIB 4 Dose Schedule 2000 Completed [facility] 00:00:00 [facility] Hep B, Adol or Pedi 2000 Completed [facility] Dosage 00:00:00 [facility] DTAP 2000 Completed [facility] 00:00:00 [facility] HIB 4 Dose Schedule 2000 Completed [facility] 00:00:00 [facility] Hep B, Adol or Pedi 2000 Completed [facility] Dosage 00:00:00 [facility] DTAP 2000 Completed [facility] 00:00:00 [facility] HIB 4 Dose Schedule 2000 Completed [facility] 00:00:00 [facility] Hep B, Adol or Pedi 2000 Completed [facility] Dosage 00:00:00 [facility] Hep B, Adol or Pedi 2000 Completed [facility] Dos[facility] 00:00:00 [facility] DTAP 2000 Completed [facility] 00:00:00 [facility] HIB 4 Dose Schedule 2000 Completed [facility] 00:00:00 [facility] Hep B, Adol or Pedi 2000 Completed [facility] Dosage 00:00:00 [facility] DTAP 2000 Completed [facility] 00:00:00 [facility] HIB 4 Dose Schedule 2000 Completed [facility] 00:00:00 [facility] Hep B, Adol or Pedi 2000 Completed [facility] Dosage 00:00:00 [facility] DTAP 2000 Completed [facility] 00:00:00 [facility] HIB 4 Dose Schedule 2000 Completed [facility] 00:00:00 [facility] Hep B, Adol or Pedi 2000 Completed [facility] Dosage 00:00:00 [facility] DTAP 2000 Completed [facility] 00:00:00 [facility] DTAP 2000 Completed [facility] 00:00:00 [facility] HIB 4 Dose Schedule 2000 Completed [facility] 00:00:00 [facility] Hep B, Adol or Pedi 2000 Completed [facility] Dosage 00:00:00 [facility] HIB 4 Dose Schedule 2000 Completed [facility] 00:00:00 [facility] DTAP 2000 Completed [facility] 00:00:00 [facility] HIB 4 Dose Schedule 2000 Completed [facility] 00:00:00 [facility] Hep B, Adol or Pedi 2000 Completed [facility] Dosage 00:00:00 [facility] DTAP 2000 Completed [facility] 00:00:00 [facility] HIB 4 Dose Schedule 2000 Completed [facility] 00:00:00 [facility] Hep B, Adol or Pedi 2000 Completed [facility] Dosage 00:00:00 [facility] Hep B, Adol or Pedi 2000 Completed [facility] Dosage 00:00:00 [facility] DTAP 2000 Completed [facility] 00:00:00 [facility] HIB 4 Dose Schedule 2000 Completed [facility] 00:00:00 [facility] Hep B, Adol or Pedi 2000 Completed [facility] Dosage 00:00:00 [facility] DTAP 2000 Completed [facility] 00:00:00 [facility] HIB 4 Dose Schedule 2000 Completed [facility] 00:00:00 [facility] Hep B, Adol or Pedi 2000 Completed [facility] Dosage 00:00:00 [facility] DTAP 2000 Completed [facility] 00:00:00 [facility] HIB 4 Dose Schedule 2000 Completed [facility] 00:00:00 [facility] Hep B, Adol or Pedi 2000 Completed [facility] Dosage 00:00:00 [facility] DTAP 2000 Completed [facility] 00:00:00 [facility] HIB 4 Dose Schedule 2000 Completed [facility] 00:00:00 [facility] Hep B, Adol or Pedi 2000 Completed [facility] Dosage 00:00:00 [facility] DTAP 2000 Completed [facility] 00:00:00 [facility] HIB 4 Dose Schedule 2000 Completed [facility] 00:00:00 [facility] Hep B, Adol or Pedi 2000 Completed [facility] Dosage 00:00:00 [facility] DTAP 2000 Completed [facility] 00:00:00 [facility] HIB 4 Dose Schedule 2000 Completed [facility] 00:00:00 [facility] Hep B, Adol or Pedi 2000 Completed [facility] Dosage 00:00:00 [facility] DTAP 2000 Completed [facility] 00:00:00 [facility] HIB 4 Dose Schedule 2000 Completed [facility] 00:00:00 [facility] DTAP 2000 Completed [facility] 00:00:00 [facility] Hep B, Adol or Pedi 2000 Completed [facility] Dosage 00:00:00 [facility] DTAP 2000 Completed [facility] 00:00:00 [facility] HIB 4 Dose Schedule 2000 Completed [facility] 00:00:00 [facility] HIB 4 Dose Schedule 2000 Completed [facility] 00:00:00 [facility] Hep B, Adol or Pedi 2000 Completed [facility] Dosage 00:00:00 [facility] Polio (IPV/OPV) 2000 Completed [facility] 00:00:00 [facility] DTAP 2000 Completed [facility] 00:00:00 [facility] HIB 4 Dose Schedule 2000 Completed [facility] 00:00:00 [facility] Polio (IPV/OPV) 2000 Completed [facility] 00:00:00 [facility] DTAP 2000 Completed [facility] 00:00:00 [facility] HIB 4 Dose Schedule 2000 Completed [facility] 00:00:00 [facility] Polio (IPV/OPV) 2000 Completed [facility] 00:00:00 [facility] DTAP 2000 Completed [facility] 00:00:00 [facility] HIB 4 Dose Schedule 2000 Completed [facility] 00:00:00 [facility] Polio (IPV/OPV) 2000 Completed [facility] 00:00:00 [facility] Polio (IPV/OPV) 2000 Completed [facility] 00[facility]00:00 [facility] DTAP 2000 Completed [facility] 00:00:00 [facility] HIB 4 Dose Schedule 2000 Completed [facility] 00:00:00 [facility] Polio (IPV/OPV) 2000 Completed [facility] 00:00:00 [facility] DTAP 2000 Completed [facility] 00:00:00 [facility] HIB 4 Dose Schedule 2000 Completed [facility] 00:00:00 [facility] Polio (IPV/OPV) 2000 Completed [facility] 00:00:00 [facility] DTAP 2000 Completed [facility] 00:00:00 [facility] HIB 4 Dose Schedule 2000 Completed [facility] 00:00:00 [facility] Polio (IPV/OPV) 2000 Completed [facility] 00:00:00 [facility] DTAP 2000 Completed [facility] 00:00:00 [facility] HIB 4 Dose Schedule 2000 Completed [facility] 00:00:00 [facility] Polio (IPV/OPV) 2000 Completed [facility] 00:00:00 [facility] DTAP 2000 Completed [facility] 00:00:00 [facility] HIB 4 Dose Schedule 2000 Completed [facility] 00:00:00 [facility] Polio (IPV/OPV) 2000 Completed [facility] 00:00:00 [facility] DTAP 2000 Completed [facility] 00:00:00 [facility] HIB 4 Dose Schedule 2000 Completed [facility] 00:00:00 [facility] Polio (IPV/OPV) 2000 Completed [facility] 00:00:00 [facility] DTAP 2000 Completed [facility] 00:00:00 [facility] HIB 4 Dose Schedule 2000 Completed [facility] 00:00:00 [facility] Polio (IPV/OPV) 2000 Completed [facility] 00:00:00 [facility] DTAP 2000 Completed [facility] 00:00:00 [facility] DTAP 2000 Completed [facility] 00:00:00 [facility] HIB 4 Dose Schedule 2000 Completed [facility] 00:00:00 [facility] Polio (IPV/OPV) 2000 Completed [facility] 00:00:00 [facility] HIB 4 Dose Schedule 2000 Completed [facility] 00:00:00 [facility] DTAP 2000 Completed [facility] 00:00:00 [facility] HIB 4 Dose Schedule 2000 Completed [facility] 00:00:00 [facility] Polio (IPV/OPV) 2000 Completed [facility] 00:00:00 [facility] DTAP 2000 Completed [facility] 00:00:00 [facility] HIB 4 Dose Schedule 2000 Completed [facility] 00:00:00 [facility] Polio (IPV/OPV) 2000 Completed [facility] 00:00:00 [facility] DTAP 2000 Completed [facility] 00:00:00 [facility] HIB 4 Dose Schedule 2000 Completed [facility] 00:00:00 [facility] Polio (IPV/OPV) 2000 Completed [facility] 00:00:00 [facility] DTAP 2000 Completed [facility] 00:00:00 [facility] HIB 4 Dose Schedule 2000 Completed [facility] 00:00:00 [facility] Polio (IPV/OPV) 2000 Completed [facility] 00:00:00 [facility] Polio (IPV/OPV) 2000 Completed [facility] 00:00:00 [facility] DTAP 2000 Completed [facility] 00:00:00 [facility] HIB 4 Dose Schedule 2000 Completed [facility] 00:00:00 [facility] Polio (IPV/OPV) 2000 Completed [facility] 00:00:00 [facility] DTAP 2000 Completed [facility] 00:00:00 [facility] HIB 4 Dose Schedule 2000 Completed [facility] 00:00:00 [facility] Polio (IPV/OPV) 2000 Completed [facility] 00:00:00 [facility] DTAP 2000 Completed [facility] 00:00:00 [facility] HIB 4 Dose Schedule 2000 Completed [facility] 00:00:00 [facility] Polio (IPV/OPV) 2000 Completed [facility] 00:00:00 [facility] DTAP 2000 Completed [facility] 00:00:00 [facility] HIB 4 Dose Schedule 2000 Completed [facility] 00:00:00 [facility] Polio (IPV/OPV) 2000 Completed [facility] 00:00:00 [facility] DTAP 2000 Completed [facility] 00:00:00 [facility] HIB 4 Dose Schedule 2000 Completed [facility] 00:00:00 [facility] Polio (IPV/OPV) 2000 Completed [facility] 00:00:00 [facility] DTAP 2000 Completed [facility] 00:00:00 [facility] HIB 4 Dose Schedule 2000 Completed [facility] 00:00:00 [facility] DTAP 2000 Completed [facility] 00:00:00 [facility] Polio (IPV/OPV) 2000 Completed [facility] 00:00:00 [facility] DTAP 2000 Completed [facility] 00:00:00 [facility] HIB 4 Dose Schedule 2000 Completed [facility] 00:00:00 [facility] HIB 4 Dose Schedule 2000 Completed [facility] 00:00:00 [facility] Polio (IPV/OPV) 2000 Completed [facility] 00:00:00 [facility] DTAP 2000 Completed [facility] 00:00:00 [facility] HIB 4 Dose Schedule 2000 Completed [facility] 00:00:00 [facility] Polio (IPV/OPV) 2000 Completed [facility] 00:00:00 [facility] DTAP 2000 Completed [facility] 00:00:00 [facility] HIB 4 Dose Schedule 2000 Completed [facility] 00:00:00 [facility] Polio (IPV/OPV) 2000 Completed [facility] 00:00:00 [facility] DTAP 2000 Completed [facility] 00:00:00 [facility] HIB 4 Dose Schedule 2000 Completed [facility] 00:00:00 [facility] Polio (IPV/OPV) 2000 Completed [facility] 00:00:00 [facility] Polio (IPV/OPV) 2000 Completed [facility] 00:00:00 [facility] DTAP 2000 Completed [facility] 00:00:00 [facility] HIB 4 Dose Schedule 2000 Completed [facility] 00:00:00 [facility] Polio (IPV/OPV) 2000 Completed [facility] 00:00:00 [facility] DTAP 2000 Completed [facility] 00:00:00 [facility] HIB 4 Dose Schedule 2000 Completed [facility] 00:00:00 [facility] Polio (IPV/OPV) 2000 Completed [facility] 00:00:00 [facility] DTAP 2000 Completed [facility] 00:00:00 [facility] HIB 4 Dose Schedule 2000 Completed [facility] 00:00:00 [facility] Polio (IPV/OPV) 2000 Completed [facility] 00:00:00 [facility] DTAP 2000 Completed [facility] 00:00:00 [facility] HIB 4 Dose Schedule 2000 Completed [facility] 00:00:00 [facility] DTAP 2000 Completed [facility] 00:00:00 [facility] Polio (IPV/OPV) 2000 Completed [facility] 00:00:00 [facility] DTAP 2000 Completed [facility] 00:00:00 [facility] HIB 4 Dose Schedule 2000 Completed [facility] 00:00:00 [facility] HIB 4 Dose Schedule 2000 Completed [facility] 00:00:00 [facility] Polio (IPV/OPV) 2000 Completed [facility] 00:00:00 [facility] DTAP 2000 Completed [facility] 00:00:00 [facility] HIB 4 Dose Schedule 2000 Completed [facility] 00:00:00 [facility] Polio (IPV/OPV) 2000 Completed [facility] 00:00:00 [facility] DTAP 2000 Completed [facility] 00:00:00 [facility] HIB 4 Dose Schedule 2000 Completed [facility] 00:00:00 [facility] Polio (IPV/OPV) 2000 Completed [facility] 00:00:00 [facility] DTAP 2000 Completed [facility] 00:00:00 [facility] HIB 4 Dose Schedule 2000 Completed [facility] 00:00:00 [facility] Polio (IPV/OPV) 2000 Completed [facility] 00:00:00 [facility] Polio (IPV/OPV) 2000 Completed [facility] 00:00:00 [facility] DTAP 2000 Completed [facility] 00:00:00 [facility] HIB 4 Dose Schedule 2000 Completed [facility] 00:00:00 [facility] Polio (IPV/OPV) 2000 Completed [facility] 00:00:00 [facility] DTAP 2000 Completed [facility] 00:00:00 [facility] HIB 4 Dose Schedule 2000 Completed [facility] 00:00:00 [facility] Polio (IPV/OPV) 2000 Completed [facility] 00:00:00 [facility] DTAP 2000 Completed [facility] 00:00:00 [facility] HIB 4 Dose Schedule 2000 Completed [facility] 00:00:00 [facility] Polio (IPV/OPV) 2000 Completed [facility] 00:00:00 [facility] DTAP 2000 Completed [facility] 00:00:00 [facility] HIB 4 Dose Schedule 2000 Completed [facility] 00:00:00 [facility] Polio (IPV/OPV) 2000 Completed [facility] 00:00:00 [facility] DTAP 2000 Completed [facility] 00:00:00 [facility] DTAP 2000 Completed [facility] 00:00:00 [facility] HIB 4 Dose Schedule 2000 Completed [facility] 00:00:00 [facility] Polio (IPV/OPV) 2000 Completed [facility] 00:00:00 [facility] DTAP 2000 Completed [facility] 00:00:00 [facility] HIB 4 Dose Schedule 2000 Completed [facility] 00:00:00 [facility] HIB 4 Dose Schedule 2000 Completed [facility] 00:00:00 [facility] Polio (IPV/OPV) 2000 Completed [facility] 00:00:00 [facility] DTAP 2000 Completed [facility] 00:00:00 [facility] HIB 4 Dose Schedule 2000 Completed [facility] 00:00:00 [facility] Polio (IPV/OPV) 2000 Completed [facility] 00:00:00 [facility] DTAP 2000 Completed [facility] 00:00:00 [facility] HIB 4 Dose Schedule 2000 Completed [facility] 00:00:00 [facility] Polio (IPV/OPV) 2000 Completed [facility] 00:00:00 [facility] DTAP 2000 Completed [facility] 00:00:00 [facility] HIB 4 Dose Schedule 2000 Completed [facility] 00:00:00 [facility] Polio (IPV/OPV) 2000 Completed [facility] 00:00:00 [facility] Polio (IPV/OPV) 2000 Completed [facility] 00:00:00 [facility] DTAP 2000 Completed [facility] 00:00:00 [facility] HIB 4 Dose Schedule 2000 Completed [facility] 00:00:00 [facility] Polio (IPV/OPV) 2000 Completed [facility] 00:00:00 [facility] DTAP 2000 Completed [facility] 00:00:00 [facility] HIB 4 Dose Schedule 2000 Completed [facility] 00:00:00 [facility] Polio (IPV/OPV) 2000 Completed [facility] 00:00:00 [facility] DTAP 2000 Completed [facility] 00:00:00 [facility] HIB 4 Dose Schedule 2000 Completed [facility] 00:00:00 [facility] Polio (IPV/OPV) 2000 Completed [facility] 00:00:00 [facility] DTAP 2000 Completed [facility] 00:00:00 [facility] HIB 4 Dose Schedule 2000 Completed [facility] 00:00:00 [facility] Polio (IPV/OPV) 2000 Completed [facility] 00:00:00 [facility] DTAP 2000 Completed [facility] 00:00:00 [facility] HIB 4 Dose Schedule 2000 Completed [facility] 00:00:00 [facility] DTAP 2000 Completed [facility] 00:00:00 [facility] HIB 4 Dose Schedule 2000 Completed [facility] 00:00:00 [facility] Polio (IPV/OPV) 2000 Completed [facility] 00:00:00 [facility] DTAP 2000 Completed [facility] 00:00:00 [facility] HIB 4 Dose Schedule 2000 Completed [facility] 00:00:00 [facility] Polio (IPV/OPV) 2000 Completed [facility] 00:00:00 [facility] DTAP 2000 Completed [facility] 00:00:00 [facility] HIB 4 Dose Schedule 2000 Completed [facility] 00:00:00 [facility] Polio (IPV/OPV) 2000 Completed [facility] 00:00:00 [facility] Polio (IPV/OPV) 2000 Completed [facility] 00:00:00 [facility] DTAP 2000 Completed [facility] 00:00:00 [facility] HIB 4 Dose Schedule 2000 Completed [facility] 00:00:00 [facility] Polio (IPV/OPV) 2000 Completed [facility] 00:00:00 [facility] DTAP 2000 Completed [facility] 00:00:00 [facility] HIB 4 Dose Schedule 2000 Completed [facility] 00:00:00 [facility] Polio (IPV/OPV) 2000 Completed [facility] 00:00:00 [facility] DTAP 2000 Completed [facility] 00:00:00 [facility] HIB 4 Dose Schedule 2000 Completed [facility] 00:00:00 [facility] Polio (IPV/OPV) 2000 Completed [facility] 00:00:00 [facility] DTAP 2000 Completed [facility] 00:00:00 [facility] HIB 4 Dose Schedule 2000 Completed [facility] 00:00:00 [facility] Polio (IPV/OPV) 2000 Completed [facility] 00:00:00 [facility] DTAP 2000 Completed [facility] 00:00:00 [facility] DTAP 2000 Completed [facility] 00:00:00 [facility] HIB 4 Dose Schedule 2000 Completed [facility] 00:00:00 [facility] Polio (IPV/OPV) 2000 Completed [facility] 00:00:00 [facility] DTAP 2000 Completed [facility] 00:00:00 [facility] HIB 4 Dose Schedule 2000 Completed [facility] 00:00:00 [facility] HIB 4 Dose Schedule 2000 Completed [facility] 00:00:00 [facility] Polio (IPV/OPV) 2000 Completed [facility] 00:00:00 [facility] DTAP 2000 Completed [facility] 00:00:00 [facility] HIB 4 Dose Schedule 2000 Completed [facility] 00:00:00 [facility] Polio (IPV/OPV) 2000 Completed [facility] 00:00:00 [facility] DTAP 2000 Completed [facility] 00:00:00 [facility] HIB 4 Dose Schedule 2000 Completed [facility] 00:00:00 [facility] Polio (IPV/OPV) 2000 Completed [facility] 00:00:00 [facility] DTAP 2000 Completed [facility] 00:00:00 [facility] HIB 4 Dose Schedule 2000 Completed [facility] 00[facility]00:00 [facility] Polio (IPV/OPV) 2000 Completed [facility] 00:00:00 [facility] Polio (IPV/OPV) 2000 Completed [facility] 00:00:00 [facility] DTAP 2000 Completed [facility] 00:00:00 [facility] HIB 4 Dose Schedule 2000 Completed [facility] 00:00:00 [facility] Polio (IPV/OPV) 2000 Completed [facility] 00:00:00 [facility] DTAP 2000 Completed [facility] 00:00:00 [facility] HIB 4 Dose Schedule 2000 Completed [facility] 00:00:00 [facility] Polio (IPV/OPV) 2000 Completed [facility] 00:00:00 [facility] DTAP 2000 Completed [facility] 00:00:00 [facility] HIB 4 Dose Schedule 2000 Completed [facility] 00:00:00 [facility] Polio (IPV/OPV) 2000 Completed [facility] 00:00:00 [facility] DTAP 2000 Completed [facility] 00:00:00 [facility] HIB 4 Dose Schedule 2000 Completed [facility] 00:00:00 [facility] Polio (IPV/OPV) 2000 Completed [facility] 00:00:00 [facility] DTAP 2000 Completed [facility] 00:00:00 [facility] HIB 4 Dose Schedule 2000 Completed [facility] 00:00:00 [facility] Polio (IPV/OPV) 2000 Completed [facility] 00:00:00 [facility] DTAP 2000 Completed [facility] 00:00:00 [facility] DTAP 2000 Completed [facility] 00:00:00 [facility] HIB 4 Dose Schedule 2000 Completed [facility] 00:00:00 [facility] Polio (IPV/OPV) 2000 Completed [facility] 00:00:00 [facility] HIB 4 Dose Schedule 2000 Completed [facility] 00:00:00 [facility] DTAP 2000 Completed [facility] 00:00:00 [facility] HIB 4 Dose Schedule 2000 Completed [facility] 00:00:00 [facility] Polio (IPV/OPV) 2000 Completed [facility] 00:00:00 [facility] DTAP 2000 Completed [facility] 00:00:00 [facility] HIB 4 Dose Schedule 2000 Completed [facility] 00:00:00 [facility] Polio (IPV/OPV) 2000 Completed [facility] 00:00:00 [facility] DTAP 2000 Completed [facility] 00:00:00 [facility] HIB 4 Dose Schedule 2000 Completed [facility] 00:00:00 [facility] Polio (IPV/OPV) 2000 Completed [facility]00 [facility] [facility] Pol[facility] (IPV/OPV) 2000 Completed [facility]00 [facility] DTAP 2000 Completed [facility] 00[facility]00:00 [facility] HIB 4 Dose Schedule 2000 Completed [facility] 00:00:00 [facility] Polio (IPV/OPV) 2000 Completed [facility] 00:00:00 [facility] DTAP 2000 Completed [facility] 00:00:00 [facility] HIB 4 Dose Schedule 2000 Completed [facility] 00:00:00 [facility] Polio (IPV/OPV) 2000 Completed [facility] 00:00:00 [facility] DTAP 2000 Completed [facility] 00:00:00 [facility] HIB 4 Dose Schedule 2000 Completed [facility] 00:00:00 [facility] Polio (IPV/OPV) 2000 Completed [facility] 00:00:00 [facility] DTAP 2000 Completed [facility] 00:00:00 [facility] HIB 4 Dose Schedule 2000 Completed [facility] 00:00:00 [facility] DTAP 2000 Completed [facility] 00:00:00 [facility] Polio (IPV/OPV) 2000 Completed [facility] 00:00:00 [facility] DTAP 2000 Completed [facility] 00:00:00 [facility] HIB 4 Dose Schedule 2000 Completed [facility] 00:00:00 [facility] HIB 4 Dose Schedule 2000 Completed [facility] 00:00:00 [facility] Polio (IPV/OPV) 2000 Completed [facility] 00:00:00 [facility] DTAP 2000 Completed [facility] 00:00:00 [facility] HIB 4 Dose Schedule 2000 Completed [facility] 00:00:00 [facility] Polio (IPV/OPV) 2000 Completed [facility] 00:00:00 [facility] DTAP 2000 Completed [facility] 00:00:00 [facility] HIB 4 Dose Schedule 2000 Completed [facility] 00:00:00 [facility] Polio (IPV/OPV) 2000 Completed [facility] 00:00:00 [facility] DTAP 2000 Completed [facility] 00:00:00 [facility] HIB 4 Dose Schedule 2000 Completed [facility] 00:00:00 [facility] Polio (IPV/OPV) 2000 Completed [facility] 00:00:00 [facility] Polio (IPV/OPV) 2000 Completed [facility] 00:00:00 [facility] DTAP 2000 Completed [facility] 00:00:00 [facility] HIB 4 Dose Schedule 2000 Completed [facility] 00:00:00 [facility] Polio (IPV/OPV) 2000 Completed [facility] 00:00:00 [facility] DTAP 2000 Completed [facility] 00:00:00 [facility] HIB 4 Dose Schedule 2000 Completed [facility] 00:00:00 [facility] Polio (IPV/OPV) 2000 Completed [facility] 00:00:00 [facility] DTAP 2000 Completed [facility] 00:00:00 [facility] HIB 4 Dose Schedule 2000 Completed [facility] 00:00:00 [facility] Polio (IPV/OPV) 2000 Completed [facility] 00:00:00 [facility] DTAP 2000 Completed [facility] 00:00:00 [facility] HIB 4 Dose Schedule 2000 Completed [facility] 00:00:00 [facility] Polio (IPV/OPV) 2000 Completed [facility] 00:00:00 [facility] DTAP 2000 Completed [facility] 00:00:00 [facility] DTAP 2000 Completed [facility] 00:00:00 [facility] HIB 4 Dose Schedule 2000 Completed [facility] 00:00:00 [facility] Polio (IPV/OPV) 2000 Completed [facility] 00:00:00 [facility] DTAP 2000 Completed [facility] 00:00:00 [facility] HIB 4 Dose Schedule 2000 Completed [facility] 00:00:00 [facility] HIB 4 Dose Schedule 2000 Completed [facility] 00:00:00 [facility] Polio (IPV/OPV) 2000 Completed [facility] 00:00:00 [facility] DTAP 2000 Completed [facility] 00:00:00 [facility] HIB 4 Dose Schedule 2000 Completed [facility] 00:00:00 [facility] Polio (IPV/OPV) 2000 Completed [facility] 00:00:00 [facility] DTAP 2000 Completed [facility] 00:00:00 [facility] DTAP 2000 Completed [facility] 00:00:00 [facility] HIB 4 Dose Schedule 2000 Completed [facility] 00:00:00 [facility] Polio (IPV/OPV) 2000 Completed [facility] 00:00:00 [facility] Polio (IPV/OPV) 2000 Completed [facility] 00:00:00 [facility] DTAP 2000 Completed [facility] 00:00:00 [facility] HIB 4 Dose Schedule 2000 Completed [facility] 00:00:00 [facility] Polio (IPV/OPV) 2000 Completed [facility] 00:00:00 [facility] DTAP 2000 Completed [facility] 00:00:00 [facility] HIB 4 Dose Schedule 2000 Completed [facility] 00:00:00 [facility] Polio (IPV/OPV) 2000 Completed [facility] 00:00:00 [facility] DTAP 2000 Completed [facility] 00:00:00 [facility] HIB 4 Dose Schedule 2000 Completed [facility] 00:00:00 [facility] Polio (IPV/OPV) 2000 Completed [facility] 00:00:00 [facility] DTAP 2000 Completed [facility] 00:00:00 [facility] HIB 4 Dose Schedule 2000 Completed [facility] 00:00:00 [facility] Polio (IPV/OPV) 2000 Completed [facility] 00:00:00 [facility] DTAP 2000 Completed [facility] 00:00:00 [facility] HIB 4 Dose Schedule 2000 Completed [facility] 00:00:00 [facility] Polio (IPV/OPV) 2000 Completed [facility] 00:00:00 [facility] DTAP 2000 Completed [facility] 00:00:00 [facility] DTAP 2000 Completed [facility] 00:00:00 [facility] HIB 4 Dose Schedule 2000 Completed [facility] 00:00:00 [facility] HIB 4 Dose Schedule 2000 Completed [facility] 00:00:00 [facility] Polio (IPV/OPV) 2000 Completed [facility] 00:00:00 [facility] DTAP 2000 Completed [facility] 00:00:00 [facility] HIB 4 Dose Schedule 2000 Completed [facility] 00:00:00 [facility] Polio (IPV/OPV) 2000 Completed [facility] 00:00:00 [facility] DTAP 2000 Completed [facility] 00:00:00 [facility] HIB 4 Dose Schedule 2000 Completed [facility] 00:00:00 [facility] Polio (IPV/OPV) 2000 Completed [facility] 00:00:00 [facility] HIB 4 Dose Schedule 2000 Completed [facility] 00:00:00 [facility] DTAP 2000 Completed [facility] 00:00:00 [facility] HIB 4 Dose Schedule 2000 Completed [facility] 00:00:00 [facility] Polio (IPV/OPV) 2000 Completed [facility] 00:00:00 [facility] Polio (IPV/OPV) 2000 Completed [facility] 00:00:00 [facility] DTAP 2000 Completed [facility] 00:00:00 [facility] HIB 4 Dose Schedule 2000 Completed [facility] 00:00:00 [facility] Polio (IPV/OPV) 2000 Completed [facility] 00:00:00 [facility] DTAP 2000 Completed [facility] 00:00:00 [facility] HIB 4 Dose Schedule 2000 Completed [facility] 00:00:00 [facility] Polio (IPV/OPV) 2000 Completed [facility] 00:00:00 [facility] DTAP 2000 Completed [facility] 00:00:00 [facility] HIB 4 Dose Schedule 2000 Completed [facility] 00:00:00 [facility] Polio (IPV/OPV) 2000 Completed [facility] 00:00:00 [facility] DTAP 2000 Completed [facility] 00:00:00 [facility] DTAP 2000 Completed [facility] 00:00:00 [facility] HIB 4 Dose Schedule 2000 Completed [facility] 00:00:00 [facility] Polio (IPV/OPV) 2000 Completed [facility] 00:00:00 [facility] HIB 4 Dose Schedule 2000 Completed [facility] 00:00:00 [facility] DTAP 2000 Completed [facility] 00:00:00 [facility] HIB 4 Dose Schedule 2000 Completed [facility] 00:00:00 [facility] Polio (IPV/OPV) 2000 Completed [facility] 00:00:00 [facility] DTAP 2000 Completed [facility] 00:00:00 [facility] HIB 4 Dose Schedule 2000 Completed [facility] 00[facility]00:00 [facility] Polio (IPV/OPV) 2000 Completed [facility] 00:00:00 [facility] DTAP 2000 Completed [facility] 00:00:00 [facility] HIB 4 Dose Schedule 2000 Completed [facility] 00:00:00 [facility] Polio (IPV/OPV) 2000 Completed [facility] 00:00:00 [facility] DTAP 2000 Completed [facility] 00:00:00 [facility] HIB 4 Dose Schedule 2000 Completed [facility] 00:00:00 [facility] Polio (IPV/OPV) 2000 Completed [facility] 00:00:00 [facility] Polio (IPV/OPV) 2000 Completed [facility] 00:00:00 [facility] DTAP 2000 Completed [facility] 00:00:00 [facility] HIB 4 Dose Schedule 2000 Completed [facility] 00:00:00 [facility] Polio (IPV/OPV) 2000 Completed [facility] 00:00:00 [facility] DTAP 2000 Completed [facility] 00:00:00 [facility] HIB 4 Dose Schedule 2000 Completed [facility] 00:00:00 [facility] Polio (IPV/OPV) 2000 Completed [facility] 00:00:00 [facility] DTAP 2000 Completed [facility] 00:00:00 [facility] HIB 4 Dose Schedule 2000 Completed [facility] 00:00:00 [facility] Polio (IPV/OPV) 2000 Completed [facility] 00:00:00 [facility] DTAP 2000 Completed [facility] 00:00:00 [facility] HIB 4 Dose Schedule 2000 Completed [facility] 00:00:00 [facility] Polio (IPV/OPV) 2000 Completed [facility] 00:00:00 [facility] DTAP 2000 Completed [facility] 00[facility]00:00 [facility] HIB 4 Dose Schedule 2000 Completed [facility] 00:00:00 [facility] Polio (IPV/OPV) 2000 Completed [facility] 00:00:00 [facility] DTAP 2000 Completed [facility] 00:00:00 [facility] HIB 4 Dose Schedule 2000 Completed [facility] 00:00:00 [facility] Polio (IPV/OPV) 2000 Completed [facility] 00:00:00 [facility] DTAP 2000 Completed [facility] 00:00:00 [facility] HIB 4 Dose Schedule 2000 Completed [facility] 00:00:00 [facility] Polio (IPV/OPV) 2000 Completed [facility] 00:00:00 [facility] DTAP 2000 Completed [facility] 00:00:00 [facility] HIB 4 Dose Schedule 2000 Completed [facility] 00:00:00 [facility] Polio (IPV/OPV) 2000 Completed [facility] 00:00:00 [facility] DTAP 2000 Completed [facility] 00:00:00 [facility] DTAP 2000 Completed [facility] 00:00:00 [facility] HIB 4 Dose Schedule 2000 Completed [facility] 00:00:00 [facility] Polio (IPV/OPV) 2000 Completed [facility] 00:00:00 [facility] HIB 4 Dose Schedule 2000 Completed [facility] 00:00:00 [facility] DTAP 2000 Completed [facility] 00:00:00 [facility] HIB 4 Dose Schedule 2000 Completed [facility] 00:00:00 [facility] Polio (IPV/OPV) 2000 Completed [facility] 00:00:00 [facility] DTAP 2000 Completed [facility] 00:00:00 [facility] HIB 4 Dose Schedule 2000 Completed [facility] 00:00:00 [facility] Polio (IPV/OPV) 2000 Completed [facility] 00:00:00 [facility] DTAP 2000 Completed [facility] 00:00:00 [facility] HIB 4 Dose Schedule 2000 Completed [facility] 00:00:00 [facility] Polio (IPV/OPV) 2000 Completed [facility] 00:00:00 [facility] Polio (IPV/OPV) 2000 Completed [facility] 00:00:00 [facility] DTAP 2000 Completed [facility] 00:00:00 [facility] HIB 4 Dose Schedule 2000 Completed [facility] 00:00:00 [facility] Polio (IPV/OPV) 2000 Completed [facility] 00:00:00 [facility] Polio (IPV/OPV) 2000 Completed [facility] 00:00:00 [facility] DTAP 2000 Completed [facility] 00:00:00 [facility] HIB 4 Dose Schedule 2000 Completed [facility] 00:00:00 [facility] Polio (IPV/OPV) 2000 Completed [facility] 00:00:00 [facility] DTAP 2000 Completed [facility] 00:00:00 [facility] HIB 4 Dose Schedule 2000 Completed [facility] 00:00:00 [facility] Polio (IPV/OPV) 2000 Completed [facility] 00:00:00 [facility] DTAP 2000 Completed [facility] 00:00:00 [facility] HIB 4 Dose Schedule 2000 Completed [facility] 00:00:00 [facility] Polio (IPV/OPV) 2000 Completed [facility] 00:00:00 [facility] DTAP 2000 Completed [facility] 00:00:00 [facility] HIB 4 Dose Schedule 2000 Completed [facility] 00:00:00 [facility] Polio (IPV/OPV) 2000 Completed [facility] 00:00:00 [facility] DTAP 2000 Completed [facility] 00:00:00 [facility] DTAP 2000 Completed [facility] 00:00:00 [facility] HIB 4 Dose Schedule 2000 Completed [facility] 00:00:00 [facility] Polio (IPV/OPV) 2000 Completed [facility] 00:00:00 [facility] HIB 4 Dose Schedule 2000 Completed [facility] 00:00:00 [facility] DTAP 2000 Completed [facility] 00:00:00 [facility] HIB 4 Dose Schedule 2000 Completed [facility] 00:00:00 [facility] DTAP 2000 Completed [facility] 00:00:00 [facility] HIB 4 Dose Schedule 2000 Completed [facility] 00:00:00 [facility] Hep B, Adol or Pedi 2000 Completed [facility] Dosage 00:00:00 [facility] Polio (IPV/OPV) 2000 Completed [facility] 00:00:00 [facility] Hep B, Adol or Pedi 2000 Completed [facility] Dosage 00:00:00 [facility] DTAP 2000 Completed [facility] 00:00:00 [facility] HIB 4 Dose Schedule 2000 Completed [facility] 00:00:00 [facility] Hep B, Adol or Pedi 2000 Completed [facility] Dosage 00:00:00 [facility] Polio (IPV/OPV) 2000 Completed [facility] 00:00:00 [facility] DTAP 2000 Completed [facility] 00:00:00 [facility] HIB 4 Dose Schedule 2000 Completed [facility] 00:00:00 [facility] Polio (IPV/OPV) 2000 Completed [facility] 00:00:00 [facility] Hep B, Adol or Pedi 2000 Completed [facility] Dosage 00:00:00 [facility] Polio (IPV/OPV) 2000 Completed [facility] 00:00:00 [facility] DTAP 2000 Completed [facility] 00:00:00 [facility] HIB 4 Dose Schedule 2000 Completed [facility] 00:00:00 [facility] Hep B, Adol or Pedi 2000 Completed [facility] Dosage 00:00:00 [facility] Polio (IPV/OPV) 2000 Completed [facility] 00:00:00 [facility] DTAP 2000 Completed [facility] 00:00:00 [facility] HIB 4 Dose Schedule 2000 Completed [facility] 00:00:00 [facility] Hep B, Adol or Pedi 2000 Completed [facility] Dosage 00:00:00 [facility] Polio (IPV/OPV) 2000 Completed [facility] 00:00:00 [facility] DTAP 2000 Completed [facility] 00:00:00 [facility] HIB 4 Dose Schedule 2000 Completed [facility] 00:00:00 [facility] Hep B, Adol or Pedi 2000 Completed [facility] Dosage 00:00:00 [facility] Polio (IPV/OPV) 2000 Completed [facility] 00:00:00 [facility] DTAP 2000 Completed [facility] 00:00:00 [facility] HIB 4 Dose Schedule 2000 Completed [facility] 00:00:00 [facility] Hep B, Adol or Pedi 2000 Completed [facility] Dosage 00:00:00 [facility] Polio (IPV/OPV) 2000 Completed [facility] 00:00:00 [facility] DTAP 2000 Completed [facility] 00:00:00 [facility] HIB 4 Dose Schedule 2000 Completed [facility] 00:00:00 [facility] Hep B, Adol or Pedi 2000 Completed [facility] Dosage 00:00:00 [facility] Polio (IPV/OPV) 2000 Completed [facility] 00:00:00 [facility] DTAP 2000 Completed [facility] 00:00:00 [facility] HIB 4 Dose Schedule 2000 Completed [facility] 00:00:00 [facility] Hep B, Adol or Pedi 2000 Completed [facility] Dosage 00:00:00 [facility] Polio (IPV/OPV) 2000 Completed [facility] 00:00:00 [facility] DTAP 2000 Completed [facility] 00:00:00 [facility] HIB 4 Dose Schedule 2000 Completed [facility] 00:00:00 [facility] DTAP 2000 Completed [facility] 00:00:00 [facility] Hep B, Adol or Pedi 2000 Completed [facility] Dosage 00:00:00 [facility] Polio (IPV/OPV) 2000 Completed [facility] 00:00:00 [facility] DTAP 2000 Completed [facility] 00:00:00 [facility] HIB 4 Dose Schedule 2000 Completed [facility] 00:00:00 [facility] Hep B, Adol or Pedi 2000 Completed [facility] Dosage 00:00:00 [facility] Polio (IPV/OPV) 2000 Completed [facility] 00:00:00 [facility] HIB 4 Dose Schedule 2000 Completed [facility] 00:00:00 [facility] DTAP 2000 Completed [facility] 00:00:00 [facility] HIB 4 Dose Schedule 2000 Completed [facility] 00:00:00 [facility] Hep B, Adol or Pedi 2000 Completed [facility] Dosage 00:00:00 [facility] Polio (IPV/OPV) 2000 Completed [facility] 00:00:00 [facility] DTAP 2000 Completed [facility] 00:00:00 [facility] HIB 4 Dose Schedule 2000 Completed [facility] 00:00:00 [facility] Hep B, Adol or Pedi 2000 Completed [facility] Dosage 00:00:00 [facility] Hep B, Adol or Pedi 2000 Completed [facility] Dosage 00:00:00 [facility] Polio (IPV/OPV) 2000 Completed [facility] 00:00:00 [facility] DTAP 2000 Completed [facility] 00:00:00 [facility] HIB 4 Dose Schedule 2000 Completed [facility] 00:00:00 [facility] Hep B, Adol or Pedi 2000 Completed [facility] Dosage 00:00:00 [facility] Polio (IPV/OPV) 2000 Completed [facility] 00:00:00 [facility] DTAP 2000 Completed [facility] 00:00:00 [facility] HIB 4 Dose Schedule 2000 Completed [facility] 00:00:00 [facility] Polio (IPV/OPV) 2000 Completed [facility] 00[facility]00:00 [facility] Hep B, Adol or Pedi 2000 Completed [facility] Dosage 00:00:00 [facility] Polio (IPV/OPV) 2000 Completed [facility] 00:00:00 [facility] DTAP 2000 Completed [facility] 00:00:00 [facility] HIB 4 Dose Schedule 2000 Completed [facility] 00:00:00 [facility] Hep B, Adol or Pedi 2000 Completed [facility] Dosage 00:00:00 [facility] Polio (IPV/OPV) 2000 Completed [facility] 00:00:00 [facility] DTAP 2000 Completed [facility] 00:00:00 [facility] HIB 4 Dose Schedule 2000 Completed [facility] 00:00:00 [facility] Hep B, Adol or Pedi 2000 Completed [facility] Dosage 00:00:00 [facility] Polio (IPV/OPV) 2000 Completed [facility] 00[facility]00:00 [facility] DTAP 2000 Completed [facility] 00:00:00 [facility] HIB 4 Dose Schedule 2000 Completed [facility] 00:00:00 [facility] Hep B, Adol or Pedi 2000 Completed [facility] Dosage 00:00:00 [facility] Polio (IPV/OPV) 2000 Completed [facility] 00:00:00 [facility] DTAP 2000 Completed [facility] 00:00:00 [facility] HIB 4 Dose Schedule 2000 Completed [facility] 00:00:00 [facility] Hep B, Adol or Pedi 2000 Completed [facility] Dosage 00:00:00 [facility] Polio (IPV/OPV) 2000 Completed [facility] 00:00:00 [facility] DTAP 2000 Completed [facility] 00:00:00 [facility] HIB 4 Dose Schedule 2000 Completed [facility] 00:00:00 [facility] Hep B, Adol or Pedi 2000 Completed [facility] Dosage 00:00:00 [facility] Polio (IPV/OPV) 2000 Completed [facility] 00:00:00 [facility] DTAP 2000 Completed [facility] 00[facility]00:00 [facility] DTAP 2000 Completed [facility] 00:00:00 [facility] HIB 4 Dose Schedule 2000 Completed [facility] 00:00:00 [facility] Hep B, Adol or Pedi 2000 Completed [facility] Dosage 00:00:00 [facility] Polio (IPV/OPV) 2000 Completed [facility] 00:00:00 [facility] DTAP 2000 Completed [facility] 00:00:00 [facility] HIB 4 Dose Schedule 2000 Completed [facility] 00:00:00 [facility] HIB 4 Dose Schedule 2000 Completed [facility] 00:00:00 [facility] Hep B, Adol or Pedi 2000 Completed [facility] Dosage 00:00:00 [facility] Polio (IPV/OPV) 2000 Completed [facility] 00:00:00 [facility] DTAP 2000 Completed [facility] 00:00:00 [facility] HIB 4 Dose Schedule 2000 Completed [facility] 00:00:00 [facility] Hep B, Adol or Pedi 2000 Completed [facility] Dosage 00:00:00 [facility] Polio (IPV/OPV) 2000 Completed [facility] 00:00:00 [facility] Hep B, Adol or Pedi 2000 Completed [facility] 00:[facility]:00 [place] [facility] DTAP 2000 Completed [facility] 00:[facility]:00 [facility] HIB 4 Dose Schedule 2000 Completed [facility] 00[facility]00:00 [facility] Hep B, Adol or Pedi 2000 Completed [facility] Dosage 00:00:00 [facility] Polio (IPV/OPV) 2000 Completed [facility] 00:00:00 [facility] DTAP 2000 Completed [facility] 00:00:00 [facility] HIB 4 Dose Schedule 2000 Completed [facility] 00:00:00 [facility] Hep B, Adol or Pedi 2000 Completed [facility] Dosage 00:00:00 [facility] Polio (IPV/OPV) 2000 Completed [facility] 00:00:00 [facility] Polio (IPV/OPV) 2000 Completed [facility] 00:00:00 [facility] DTAP 2000 Completed [facility] 00:00:00 [facility] HIB 4 Dose Schedule 2000 Completed [facility] 00:00:00 [facility] Hep B, Adol or Pedi 2000 Completed [facility] Dosage 00:00:00 [facility] Polio (IPV/OPV) 2000 Completed [facility] 00:00:00 [facility] DTAP 2000 Completed [facility] 00:00:00 [facility] HIB 4 Dose Schedule 2000 Completed [facility] 00:00:00 [facility] Hep B, Adol or Pedi 2000 Completed [facility] Dosage 00:00:00 [facility] Polio (IPV/OPV) 2000 Completed [facility] 00:00:00 [facility] DTAP 2000 Completed [facility] 00:00:00 [facility] HIB 4 Dose Schedule 2000 Completed [facility] 00:00:00 [facility] Hep B, Adol or Pedi 2000 Completed [facility] Dosage 00:00:00 [facility] Polio (IPV/OPV) 2000 Completed [facility] 00:00:00 [facility] DTAP 2000 Completed [facility] 00:00:00 [facility] DTAP 2000 Completed [facility] 00:00:00 [facility] HIB 4 Dose Schedule 2000 Completed [facility] 00:00:00 [facility] Hep B, Adol or Pedi 2000 Completed [facility] Dosage 00:00:00 [facility] Polio (IPV/OPV) 2000 Completed [facility] 00:00:00 [facility] DTAP 2000 Completed [facility] 00:00:00 [facility] HIB 4 Dose Schedule 2000 Completed [facility] 00:00:00 [facility] HIB 4 Dose Schedule 2000 Completed [facility] 00:00:00 [facility] Hep B, Adol or Pedi 2000 Completed [facility] Dosage 00:00:00 [facility] Polio (IPV/OPV) 2000 Completed [facility] 00:00:00 [facility] DTAP 2000 Completed [facility] 00:00:00 [facility] HIB 4 Dose Schedule 2000 Completed [facility] 00:00:00 [facility] Hep B, Adol or Pedi 2000 Completed [facility] Dosage 00:00:00 [facility] Polio (IPV/OPV) 2000 Completed [facility] 00:00:00 [facility] Hep B, Adol or Pedi 2000 Completed [facility] Dosage 00:00:00 [facility] DTAP 2000 Completed [facility] 00:00:00 [facility] HIB 4 Dose Schedule 2000 Completed [facility] 00:00:00 [facility] Hep B, Adol or Pedi 2000 Completed [facility] Dosage 00:00:00 [facility] Polio (IPV/OPV) 2000 Completed [facility] 00[facility]00:00 [facility] DTAP 2000 Completed [facility] 00:00:00 [facility] HIB 4 Dose Schedule 2000 Completed [facility] 00:00:00 [facility] Hep B, Adol or Pedi 2000 Completed [facility] Dosage 00:00:00 [facility] Polio (IPV/OPV) 2000 Completed [facility] 00:00:00 [facility] Polio (IPV/OPV) 2000 Completed [facility] 00:00:00 [facility] DTAP 2000 Completed [facility] 00:00:00 [facility] HIB 4 Dose Schedule 2000 Completed [facility] 00:00:00 [facility] Hep B, Adol or Pedi 2000 Completed [facility] Dosage 00:00:00 [facility] Polio (IPV/OPV) 2000 Completed [facility] 00:00:00 [facility] DTAP 2000 Completed [facility] 00:00:00 [facility] HIB 4 Dose Schedule 2000 Completed [facility] 00:00:00 [facility] Hep B, Adol or Pedi 2000 Completed [facility] Dosage 00:00:00 [facility] Polio (IPV/OPV) 2000 Completed [facility] 00:00:00 [facility] DTAP 2000 Completed [facility] 00:00:00 [facility] HIB 4 Dose Schedule 2000 Completed [facility] 00:00:00 [facility] Hep B, Adol or Pedi 2000 Completed [facility] Dosage 00:00:00 [facility] Polio (IPV/OPV) 2000 Completed [facility] 00:00:00 [facility] DTAP 2000 Completed [facility] 00:00:00 [facility] HIB 4 Dose Schedule 2000 Completed [facility] 00:00:00 [facility] Hep B, Adol or Pedi 2000 Completed [facility] Dosage 00:00:00 [facility] Polio (IPV/OPV) 2000 Completed [facility] 00:00:00 [facility] DTAP 2000 Completed [facility] 00:00:00 [facility] DTAP 2000 Completed [facility] 00:00:00 [facility] HIB 4 Dose Schedule 2000 Completed [facility] 00:00:00 [facility] Hep B, Adol or Pedi 2000 Completed [facility] Dosage 00:00:00 [facility] Polio (IPV/OPV) 2000 Completed [facility] 00:00:00 [facility] DTAP 2000 Completed [facility] 00:00:00 [facility] HIB 4 Dose Schedule 2000 Completed [facility] 00:00:00 [facility] HIB 4 Dose Schedule 2000 Completed [facility] 00:00:00 [facility] Hep B, Adol or Pedi 2000 Completed [facility] Dosage 00:00:00 [facility] Polio (IPV/OPV) 2000 Completed [facility] 00:00:00 [facility] DTAP 2000 Completed [facility] 00:00:00 [facility] HIB 4 Dose Schedule 2000 Completed [facility] 00:00:00 [facility] Hep B, Adol or Pedi 2000 Completed [facility] Dosage 00:00:00 [facility] Polio (IPV/OPV) 2000 Completed [facility] 00:00:00 [facility] Hep B, Adol or Pedi 2000 Completed [facility] Dosage 00:00:00 [facility] DTAP 2000 Completed [facility] 00:00:00 [facility] HIB 4 Dose Schedule 2000 Completed [facility] 00:00:00 [facility] Hep B, Adol or Pedi 2000 Completed [facility] Dosage 00:00:00 [facility] Polio (IPV/OPV) 2000 Completed [facility] 00:00:00 [facility] DTAP 2000 Completed [facility] 00:00:00 [facility] HIB 4 Dose Schedule 2000 Completed [facility] 00:00:00 [facility] Hep B, Adol or Pedi 2000 Completed [facility] Dosage 00:00:00 [facility] Polio (IPV/OPV) 2000 Completed [facility] 00:00:00 [facility] Polio (IPV/OPV) 2000 Completed [facility] 00:00:00 [facility] DTAP 2000 Completed [facility] 00:00:00 [facility] HIB 4 Dose Schedule 2000 Completed [facility] 00:00:00 [facility] Hep B, Adol or Pedi 2000 Completed [facility] Dosage 00:00:00 [facility] Polio (IPV/OPV) 2000 Completed [facility] 00:00:00 [facility] DTAP 2000 Completed [facility] 00:00:00 [facility] HIB 4 Dose Schedule 2000 Completed [facility] 00:00:00 [facility] Hep B, Adol or Pedi 2000 Completed [facility] Dosage 00:00:00 [facility] Polio (IPV/OPV) 2000 Completed [facility] 00:00:00 [facility] DTAP 2000 Completed [facility] 00:00:00 [facility] HIB 4 Dose Schedule 2000 Completed [facility] 00:00:00 [facility] Hep B, Adol or Pedi 2000 Completed [facility] Dosage 00:00:00 [facility] Polio (IPV/OPV) 2000 Completed [facility] 00:00:00 [facility] DTAP 2000 Completed [facility] 00:00:00 [facility] HIB 4 Dose Schedule 2000 Completed [facility] 00:00:00 [facility] Hep B, Adol or Pedi 2000 Completed [facility] Dosage 00:00:00 [facility] Polio (IPV/OPV) 2000 Completed [facility] 00:00:00 [facility] DTAP 2000 Completed [facility] 00:00:00 [facility] HIB 4 Dose Schedule 2000 Completed [facility] 00:00:00 [facility] DTAP 2000 Completed [facility] 00:00:00 [facility] HIB 4 Dose Schedule 2000 Completed [facility] 00:00:00 [facility] Hep B, Adol or Pedi 2000 Completed [facility] Dosage 00:00:00 [facility] Polio (IPV/OPV) 2000 Completed [facility] 00:00:00 [facility] Hep B, Adol or Pedi 2000 Completed [facility] Dosage 00:00:00 [facility] DTAP 2000 Completed [facility] 00:00:00 [facility] HIB 4 Dose Schedule 2000 Completed [facility] 00:00:00 [facility] Hep B, Adol or Pedi 2000 Completed [facility] Dosage 00:00:00 [facility] Polio (IPV/OPV) 2000 Completed [facility] 00:00:00 [facility] DTAP 2000 Completed [facility] 00:00:00 [facility] HIB 4 Dose Schedule 2000 Completed [facility] 00:00:00 [facility] Hep B, Adol or Pedi 2000 Completed [facility] Dosage 00:00:00 [facility] Polio (IPV/OPV) 2000 Completed [facility] 00:00:00 [facility] Polio (IPV/OPV) 2000 Completed [facility] 00:00:00 [facility] DTAP 2000 Completed [facility] 00:00:00 [facility] HIB 4 Dose Schedule 2000 Completed [facility] 00:00:00 [facility] Hep B, Adol or Pedi 2000 Completed [facility] Dosage 00:00:00 [facility] Polio (IPV/OPV) 2000 Completed [facility] 00:00:00 [facility] DTAP 2000 Completed [facility] 00:00:00 [facility] HIB 4 Dose Schedule 2000 Completed [facility] 00:00:00 [facility] Hep B, Adol or Pedi 2000 Completed [facility] Dosage 00:00:00 [facility] Polio (IPV/OPV) 2000 Completed [facility] 00:00:00 [facility] DTAP 2000 Completed [facility] 00:00:00 [facility] HIB 4 Dose Schedule 2000 Completed [facility] 00:00:00 [facility] Hep B, Adol or Pedi 2000 Completed [facility] Dosage 00:00:00 [facility] Polio (IPV/OPV) 2000 Completed [facility] 00:00:00 [facility] DTAP 2000 Completed [facility] 00:00:00 [facility] HIB 4 Dose Schedule 2000 Completed [facility] 00:00:00 [facility] Hep B, Adol or Pedi 2000 Completed [facility] Dosage 00:00:00 [facility] Polio (IPV/OPV) 2000 Completed [facility] 00:00:00 [facility] DTAP 2000 Completed [facility] 00:00:00 [facility] DTAP 2000 Completed [facility] 00:00:00 [facility] HIB 4 Dose Schedule 2000 Completed [facility] 00:00:00 [facility] Hep B, Adol or Pedi 2000 Completed [facility] Dosage 00:00:00 [facility] Polio (IPV/OPV) 2000 Completed [facility] 00:00:00 [facility] HIB 4 Dose Schedule 2000 Completed [facility] 00:00:00 [facility] DTAP 2000 Completed [facility] 00:00:00 [facility] HIB 4 Dose Schedule 2000 Completed [facility] 00:00:00 [facility] Hep B, Adol or Pedi 2000 Completed [facility] Dosage 00:00:00 [facility] Polio (IPV/OPV) 2000 Completed [facility] 00:00:00 [facility] DTAP 2000 Completed [facility] 00:00:00 [facility] HIB 4 Dose Schedule 2000 Completed [facility] 00:00:00 [facility] Hep B, Adol or Pedi 2000 Completed [facility] Dosage 00:00:00 [facility] Hep B, Adol or Pedi 2000 Completed [facility] Dosage 00:00:00 [facility] Polio (IPV/OPV) 2000 Completed [facility] 00:00:00 [facility] DTAP 2000 Completed [facility] 00:00:00 [facility] HIB 4 Dose Schedule 2000 Completed [facility] 00:00:00 [facility] Hep B, Adol or Pedi 2000 Completed [facility] Dosage 00:00:00 [facility] Polio (IPV/OPV) 2000 Completed [facility] 00:00:00 [facility] DTAP 2000 Completed [facility] 00:00:00 [facility] HIB 4 Dose Schedule 2000 Completed [facility] 00:00:00 [facility] Polio (IPV/OPV) 2000 Completed [facility] 00[facility]00:00 [facility] Hep B, Adol or Pedi 2000 Completed [facility] Dosage 00:00:00 [facility] Polio (IPV/OPV) 2000 Completed [facility] 00:00:00 [facility] DTAP 2000 Completed [facility] 00:00:00 [facility] HIB 4 Dose Schedule 2000 Completed [facility] 00:00:00 [facility] Hep B, Adol or Pedi 2000 Completed [facility] Dosage 00:00:00 [facility] Polio (IPV/OPV) 2000 Completed [facility] 00:00:00 [facility] DTAP 2000 Completed [facility] 00:00:00 [facility] HIB 4 Dose Schedule 2000 Completed [facility] 00:00:00 [facility] Hep B, Adol or Pedi 2000 Completed [facility] Dosage 00:00:00 [facility] Polio (IPV/OPV) 2000 Completed [facility] 00:00:00 [facility] DTAP 2000 Completed [facility] 00:00:00 [facility] HIB 4 Dose Schedule 2000 Completed [facility] 00:00:00 [facility] Hep B, Adol or Pedi 2000 Completed [facility] Dosage 00:00:00 [facility] Polio (IPV/OPV) 2000 Completed [facility] 00:00:00 [facility] DTAP 2000 Completed [facility] 00:00:00 [facility] HIB 4 Dose Schedule 2000 Completed [facility] 00:00:00 [facility] Hep B, Adol or Pedi 2000 Completed [facility] Dosage 00:00:00 [facility] Polio (IPV/OPV) 2000 Completed [facility] 00:00:00 [facility] DTAP 2000 Completed [facility] 00:00:00 [facility] HIB 4 Dose Schedule 2000 Completed [facility] 00:00:00 [facility] Hep B, Adol or Pedi 2000 Completed [facility] Dosage 00:00:00 [facility] Polio (IPV/OPV) 2000 Completed [facility] 00:00:00 [facility] DTAP 2000 Completed [facility] 00:00:00 [facility] DTAP 2000 Completed [facility] 00:00:00 [facility] HIB 4 Dose Schedule 2000 Completed [facility] 00:00:00 [facility] Hep B, Adol or Pedi 2000 Completed [facility] Dosage 00:00:00 [facility] Polio (IPV/OPV) 2000 Completed [facility] 00:00:00 [facility] HIB 4 Dose Schedule 2000 Completed [facility] 00:00:00 [facility] DTAP 2000 Completed [facility] 00:00:00 [facility] HIB 4 Dose Schedule 2000 Completed [facility] 00:00:00 [facility] Hep B, Adol or Pedi 2000 Completed [facility] Dosage 00:00:00 [facility] Polio (IPV/OPV) 2000 Completed [facility] 00:00:00 [facility] Hep B, Adol or Pedi 2000 Completed [facility] Dosage 00:00:00 [facility] DTAP 2000 Completed [facility] 00:00:00 [facility] HIB 4 Dose Schedule 2000 Completed [facility] 00:00:00 [facility] Hep B, Adol or Pedi 2000 Completed [facility] Dosage 00:00:00 [facility] Polio (IPV/OPV) 2000 Completed [facility] 00:00:00 [facility] DTAP 2000 Completed [facility] 00:00:00 [facility] HIB 4 Dose Schedule 2000 Completed [facility] 00:00:00 [facility] Polio (IPV/OPV) 2000 Completed [facility] 00[facility]00:00 [facility] Hep B, Adol or Pedi 2000 Completed [facility] Dosage 00:00:00 [facility] Polio (IPV/OPV) 2000 Completed [facility] 00:00:00 [facility] DTAP 2000 Completed [facility] 00:00:00 [facility] HIB 4 Dose Schedule 2000 Completed [facility] 00:00:00 [facility] Hep B, Adol or Pedi 2000 Completed [facility] Dosage 00:00:00 [facility] Polio (IPV/OPV) 2000 Completed [facility] 00:00:00 [facility] DTAP 2000 Completed [facility] 00:00:00 [facility] HIB 4 Dose Schedule 2000 Completed [facility] 00:00:00 [facility] Hep B, Adol or Pedi 2000 Completed [facility] Dosage 00:00:00 [facility] Polio (IPV/OPV) 2000 Completed [facility] 00:00:00 [facility] DTAP 2000 Completed [facility] 00:00:00 [facility] HIB 4 Dose Schedule 2000 Completed [facility] 00:00:00 [facility] Hep B, Adol or Pedi 2000 Completed [facility] Dosage 00:00:00 [facility] Polio (IPV/OPV) 2000 Completed [facility] 00:00:00 [facility] DTAP 2000 Completed [facility] 00:00:00 [facility] DTAP 2000 Completed [facility] 00:00:00 [facility] HIB 4 Dose Schedule 2000 Completed [facility] 00:00:00 [facility] Hep B, Adol or Pedi 2000 Completed [facility] Dosage 00:00:00 [facility] Polio (IPV/OPV) 2000 Completed [facility] 00:00:00 [facility] DTAP 2000 Completed [facility] 00:00:00 [facility] HIB 4 Dose Schedule 2000 Completed [facility] 00:00:00 [facility] HIB 4 Dose Schedule 2000 Completed [facility] 00:00:00 [facility] Hep B, Adol or Pedi 2000 Completed [facility] Dosage 00:00:00 [facility] Polio (IPV/OPV) 2000 Completed [facility] 00:00:00 [facility] DTAP 2000 Completed [facility] 00:00:00 [facility] HIB 4 Dose Schedule 2000 Completed [facility] 00:00:00 [facility] Hep B, Adol or Pedi 2000 Completed [facility] Dosage 00:00:00 [facility] Polio (IPV/OPV) 2000 Completed [facility] 00:00:00 [facility] Hep B, Adol or Pedi 2000 Completed [facility] Dosage 00:00:00 [facility] DTAP 2000 Completed [facility] 00:00:00 [facility] HIB 4 Dose Schedule 2000 Completed [facility] 00:00:00 [facility] Hep B, Adol or Pedi 2000 Completed [facility] Dosage 00:00:00 [facility] Polio (IPV/OPV) 2000 Completed [facility] 00:00:00 [facility] DTAP 2000 Completed [facility] 00:00:00 [facility] HIB 4 Dose Schedule 2000 Completed [facility] 00:00:00 [facility] Polio (IPV/OPV) 2000 Completed [facility] 00:00:00 [facility] Hep B, Adol or Pedi 2000 Completed [facility] Dosage 00:00:00 [facility] Polio (IPV/OPV) 2000 Completed [facility] 00:00:00 [facility] DTAP 2000 Completed [facility] 00:00:00 [facility] HIB 4 Dose Schedule 2000 Completed [facility] 00:00:00 [facility] Hep B, Adol or Pedi 2000 Completed [facility] Dosage 00:00:00 [facility] Polio (IPV/OPV) 2000 Completed [facility] 00:00:00 [facility] DTAP 2000 Completed [facility] 00:00:00 [facility] HIB 4 Dose Schedule 2000 Completed [facility] 00:00:00 [facility] Hep B, Adol or Pedi 2000 Completed [facility] Dosage 00:00:00 [facility] Polio (IPV/OPV) 2000 Completed [facility] 00:00:00 [facility] DTAP 2000 Completed [facility] 00:00:00 [facility] HIB 4 Dose Schedule 2000 Completed [facility] 00:00:00 [facility] Hep B, Adol or Pedi 2000 Completed [facility] Dosage 00:00:00 [facility] Polio (IPV/OPV) 2000 Completed [facility] 00:00:00 [facility] DTAP 2000 Completed [facility] 00:00:00 [facility] HIB 4 Dose Schedule 2000 Completed [facility] 00:00:00 [facility] Hep B, Adol or Pedi 2000 Completed [facility] Dosage 00:00:00 [facility] Polio (IPV/OPV) 2000 Completed [facility] 00:00:00 [facility] DTAP 2000 Completed [facility] 00:00:00 [facility] DTAP 2000 Completed [facility] 00:00:00 [facility] HIB 4 Dose Schedule 2000 Completed [facility] 00:00:00 [facility] Hep B, Adol or Pedi 2000 Completed [facility] Dosage 00:00:00 [facility] Polio (IPV/OPV) 2000 Completed [facility] 00:00:00 [facility] DTAP 2000 Completed [facility] 00:00:00 [facility] HIB 4 Dose Schedule 2000 Completed [facility] 00:00:00 [facility] DTAP 2000 Completed [facility] 00:00:00 [facility] HIB 4 Dose Schedule 2000 Completed [facility] 00:00:00 [facility] Hep B, Adol or Pedi 2000 Completed [facility] Dosage 00:00:00 [facility] Polio (IPV/OPV) 2000 Completed [facility] 00:00:00 [facility] DTAP 2000 Completed [facility] 00:00:00 [facility] HIB 4 Dose Schedule 2000 Completed [facility] 00:00:00 [facility] Hep B, Adol or Pedi 2000 Completed [facility] Dosage 00:00:00 [facility] Hep B, Adol or Pedi 2000 Completed [facility] Dosage 00:00:00 [facility] Polio (IPV/OPV) 2000 Completed [facility] 00:00:00 [facility] DTAP 2000 Completed [facility] 00:00:00 [facility] HIB 4 Dose Schedule 2000 Completed [facility] 00:00:00 [facility] Hep B, Adol or Pedi 2000 Completed [facility] Dosage 00:00:00 [facility] Polio (IPV/OPV) 2000 Completed [facility] 00:00:00 [facility] Polio (IPV/OPV) 2000 Completed [facility] 00:00:00 [facility] DTAP 2000 Completed [facility] 00:00:00 [facility] HIB 4 Dose Schedule 2000 Completed [facility]ive rsity of 00:00:00 [facility] Hep B, Adol or Pedi 2000 Completed Unive [facility]ity of Dosage 00:00:00 [facility] Polio (IPV/OPV) 2000 Completed [facility] 00:00:00 [facility] DTAP 2000 Completed [facility] 00:00:00 [facility] HIB 4 Dose Schedule 2000 Completed [facility]ive rsity of 00:00:00 [facility] Hep B, Adol or Pedi 2000 Completed [facility]ive [facility]ity of Dosage 00:00:00 [facility] Polio (IPV/OPV) 2000 Completed [facility] 00:00:00 [facility] DTAP 2000 Completed [facility] 00:00:00 [facility] HIB 4 Dose Schedule 2000 Completed [facility]ive rsity of 00:00:00 [facility] Hep B, Adol or Pedi 2000 Completed [facility]ive [facility]ity of Dosage 00:00:00 [facility] Polio (IPV/OPV) 2000 Completed [facility] 00:00:00 [facility] DTAP 2000 Completed [facility] 00:00:00 [facility] HIB 4 Dose Schedule 2000 Completed [facility]ive rsity of 00:00:00 [facility] Hep B, Adol or Pedi 2000 Completed [facility]ive [facility] of Dosage 00:00:00 [facility] Polio (IPV/OPV) 2000 Completed [facility] 00:00:00 [facility] DTAP 2000 Completed [facility] 00:00:00 [facility] HIB 4 Dose Schedule 2000 Completed Unive rsity of 00:00:00 [facility] Hep B, Adol or Pedi 2000 Completed [facility]ive rsity of Dosage 00:00:00 [facility] Polio (IPV/OPV) 2000 Completed [facility] 00:00:00 [facility] DTAP 2000 Completed [facility] 00:00:00 [facility] DTAP 2000 Completed [facility] 00:00:00 [facility] HIB 4 Dose Schedule 2000 Completed [facility]ive rsity of 00:00:00 [facility] HIB 4 Dose Schedule 2000 Completed Unive rsity of 00:00:00 [facility] Hep B, Adol or Pedi 2000 Completed [facility]ive rsity of Dosage 00:00:00 [facility] Polio (IPV/OPV) 2000 Completed [facility] 00:00:00 [facility] HIB 4 Dose Schedule 2000 Completed Unive rsity of 00:00:00 [facility] DTAP 2000 Completed [facility] 00:00:00 [facility] HIB 4 Dose Schedule 2000 Completed Unive rsity of 00:00:00 [facility] Hep B, Adol or Pedi 2000 Completed [facility]ive [facility] of Dosage 00:00:00 [facility] Polio (IPV/OPV) 2000 Completed [facility] 00:00:00 [facility] Hep B, Adol or Pedi 2000 Completed [facility]ive [facility]ity of Dosage 00:00:00 [facility] DTAP 2000 Completed [facility] 00:00:00 [facility] HIB 4 Dose Schedule 2000 Completed [facility]ive rsity of 00:00:00 [facility] Hep B, Adol or Pedi 2000 Completed [facility] of Dosage 00:00:00 [facility] Polio (IPV/OPV) 2000 Completed [facility] 00:00:00 [facility] Polio (IPV/OPV) 2000 Completed [facility] 00:00:00 [facility] DTAP 2000 Completed [facility] 00:00:00 [facility] HIB 4 Dose Schedule 2000 Completed [facility]ive rsity of 00:00:00 [facility] Hep B, Adol or Pedi 2000 Completed [facility]ive [facility] of Dosage 00:00:00 [facility] Polio (IPV/OPV) 2000 Completed [facility] 00:00:00 [facility] DTAP 2000 Completed [facility] 00:00:00 [facility] HIB 4 Dose Schedule 2000 Completed [facility]ive rs[facility] of 00:00:00 [facility] Hep B, Adol or Pedi 2000 Completed [facility]ive [facility] of Dosage 00:00:00 [facility] Polio (IPV/OPV) 2000 Completed [facility] 00:00:00 [facility] DTAP 2000 Completed [facility] 00:00:00 [facility] HIB 4 Dose Schedule 2000 Completed [facility] 00:00:00 [facility] Hep B, Adol or Pedi 2000 Completed [facility]ive rsity of Dosage 00:00:00 [facility] Polio (IPV/OPV) 2000 Completed [facility] 00:00:00 [facility] DTAP 2000 Completed [facility] 00:00:00 [facility] HIB 4 Dose Schedule 2000 Completed [facility]ive rsity of 00:00:00 [facility] Hep B, Adol or Pedi 2000 Completed [facility]ive rs[facility] of Dosage 00:00:00 [facility] Polio (IPV/OPV) 2000 Completed [facility] 00:00:00 [facility] DTAP 2000 Completed [facility] 00:00:00 [facility] DTAP 2000 Completed [facility] 00:00:00 [facility] HIB 4 Dose Schedule 2000 Completed [facility]ive rsity of 00:00:00 [facility] Hep B, Adol or Pedi 2000 Completed [facility] of Dosage 00:00:00 [facility] Polio (IPV/OPV) 2000 Completed [facility] 00:00:00 [facility] HIB 4 Dose Schedule 2000 Completed [facility]ive rsity of 00:00:00 [facility] DTAP 2000 Completed [facility] 00:00:00 [facility] HIB 4 Dose Schedule 2000 Completed [facility]ive rsity of 00:00:00 [facility] Hep B, Adol or Pedi 2000 Completed [facility]ive [facility] of Dosage 00:00:00 [facility] Polio (IPV/OPV) 2000 Completed [facility] 00:00:00 [facility] DTAP 2000 Completed [facility] 00:00:00 [facility] HIB 4 Dose Schedule 2000 Completed [facility]ive rsity of 00:00:00 [facility] Hep B, Adol or Pedi 2000 Completed [facility] of Dosage 00:00:00 [facility] Polio (IPV/OPV) 2000 Completed [facility] 00:00:00 [facility] Hep B, Adol or Pedi 2000 Completed [facility]ive [facility] of Dosage 00:00:00 [facility] DTAP 2000 Completed [facility] 00:00:00 [facility] HIB 4 Dose Schedule 2000 Completed [facility]ive [facility] of 00:00:00 [facility] Hep B, Adol or Pedi 2000 Completed [facility] of Dosage 00:00:00 [facility] Polio (IPV/OPV) 2000 Completed [facility] 00:00:00 [facility] DTAP 2000 Completed [facility] 00:00:00 [facility] HIB 4 Dose Schedule 2000 Completed [facility] of 00:00:00 [facility] Hep B, Adol or Pedi 2000 Completed [facility] of Dosage 00:00:00 [facility] Polio (IPV/OPV) 2000 Completed [facility] 00:00:00 [facility] Polio (IPV/OPV) 2000 Completed [facility] 00:00:00 [facility] DTAP 2000 Completed [facility] 00:00:00 [facility] HIB 4 Dose Schedule 2000 Completed [facility] of 00:00:00 [facility] Hep B, Adol or Pedi 2000 Completed [facility] Dosage 00:00:00 [facility] Polio (IPV/OPV) 2000 Completed [facility] 00:00:00 [facility] DTAP 2000 Completed [facility] 00:00:00 [facility] HIB 4 Dose Schedule 2000 Completed [facility] of 00:00:00 [facility] Hep B, Adol or Pedi 2000 Completed [facility] Dosage 00:00:00 [facility] Polio (IPV/OPV) 2000 Completed [facility] 00:00:00 [facility] DTAP 2000 Completed [facility] 00:00:00 [facility] HIB 4 Dose Schedule 2000 Completed [facility] of 00:00:00 [facility] Hep B, Adol or Pedi 2000 Completed [facility] Dosage 00:00:00 [facility] Polio (IPV/OPV) 2000 Completed [facility] 00:00:00 [facility] Hep B, Adol or Pedi 2000 Completed [facility] Dosage 00:00:00 [facility] DTAP 2000 Completed [facility] 00:00:00 [facility] HIB 4 Dose Schedule 2000 Completed [facility] of 00:00:00 [facility] Hep B, Adol or Pedi 2000 Completed [facility] Dosage 00:00:00 [facility] Polio (IPV/OPV) 2000 Completed [facility] 00:00:00 [facility] DTAP 2000 Completed [facility] 00:00:00 [facility] HIB 4 Dose Schedule 2000 Completed [facility] 00:00:00 [facility] Hep B, Adol or Pedi 2000 Completed [facility] Dosage 00:00:00 [facility] Polio (IPV/OPV) 2000 Completed [facility] 00:00:00 [facility] DTAP 2000 Completed [facility] 00:00:00 [facility] HIB 4 Dose Schedule 2000 Completed [facility] 00:00:00 [facility] Hep B, Adol or Pedi 2000 Completed [facility] Dosage 00:00:00 [facility] Polio (IPV/OPV) 2000 Completed [facility] 00:00:00 [facility] DTAP 2000 Completed [facility] 00:00:00 [facility] HIB 4 Dose Schedule 2000 Completed [facility] 00:00:00 [facility] Hep B, Adol or Pedi 2000 Completed [facility] Dosage 00:00:00 [facility] Polio (IPV/OPV) 2000 Completed [facility] 00:00:00 [facility] DTAP 2000 Completed [facility] 00:00:00 [facility] HIB 4 Dose Schedule 2000 Completed [facility] of 00:00:00 [facility] Hep B, Adol or Pedi 2000 Completed [facility] of Dosage 00:00:00 [facility] DTAP 2000 Completed [facility] 00:00:00 [facility] Polio (IPV/OPV) 2000 Completed [facility] 00:00:00 [facility] DTAP 2000 Completed [facility] 00:00:00 [facility] HIB 4 Dose Schedule 2000 Completed [facility] of 00:00:00 [facility] Hep B, Adol or Pedi 2000 Completed [facility] Dosage 00:00:00 [facility] HIB 4 Dose Schedule 2000 Completed [facility] of 00:00:00 [facility] Polio (IPV/OPV) 2000 Completed [facility] 00:00:00 [facility] DTAP 2000 Completed [facility] 00:00:00 [facility] HIB 4 Dose Schedule 2000 Completed [facility] of 00:00:00 [facility] Hep B, Adol or Pedi 2000 Completed [facility] Dosage 00:00:00 [facility] Polio (IPV/OPV) 2000 Completed [facility] 00:00:00 [facility] DTAP 2000 Completed [facility] 00:00:00 [facility] Hep B, Adol or Pedi 2000 Completed [facility] of Dosage 00:00:00 [facility] HIB 4 Dose Schedule 2000 Completed [facility] of 00:00:00 [facility] Hep B, Adol or Pedi 2000 Completed [facility] of Dosage 00:00:00 [facility] Polio (IPV/OPV) 2000 Completed [facility] 00:00:00 [facility] DTAP 2000 Completed [facility] 00:00:00 [facility] HIB 4 Dose Schedule 2000 Completed [facility] of 00:00:00 [facility] Hep B, Adol or Pedi 2000 Completed [facility] of Dosage 00:00:00 [facility] Polio (IPV/OPV) 2000 Completed [facility] 00:00:00 [facility] Polio (IPV/OPV) 2000 Completed [facility] 00:00:00 [facility] DTAP 2000 Completed [facility] 00:00:00 [facility] HIB 4 Dose Schedule 2000 Completed [facility] of 00:00:00 [facility] Hep B, Adol or Pedi 2000 Completed [facility] Dosage 00:00:00 [facility] Polio (IPV/OPV) 2000 Completed [facility] 00:00:00 [facility] Polio (IPV/OPV) 2000 Completed [facility] 00:00:00 [facility] DTAP 2000 Completed [facility] 00:00:00 [facility] HIB 4 Dose Schedule 2000 Completed [facility] 00:00:00 [facility] Hep B, Adol or Pedi 2000 Completed [facility] Dosage 00:00:00 [facility] Polio (IPV/OPV) 2000 Completed [facility] 00:00:00 [facility] DTAP 2000 Completed [facility] 00:00:00 [facility] HIB 4 Dose Schedule 2000 Completed [facility] 00:00:00 [facility] Hep B, Adol or Pedi 2000 Completed [facility] Dosage 00:00:00 [facility] Polio (IPV/OPV) 2000 Completed [facility] 00:00:00 [facility] DTAP 2000 Completed [facility] 00:00:00 [facility] HIB 4 Dose Schedule 2000 Completed [facility] 00:00:00 [facility] Hep B, Adol or Pedi 2000 Completed [facility] Dosage 00:00:00 [facility] Polio (IPV/OPV) 2000 Completed [facility] 00:00:00 [facility] DTAP 2000 Completed [facility] 00:00:00 [facility] HIB 4 Dose Schedule 2000 Completed [facility] 00:00:00 [facility] Hep B, Adol or Pedi 2000 Completed [facility] Dosage 00:00:00 [facility] Polio (IPV/OPV) 2000 Completed [facility] 00:00:00 [facility] DTAP 2000 Completed [facility] 00:00:00 [facility] DTAP 2000 Completed [facility] 00:00:00 [facility] HIB 4 Dose Schedule 2000 Completed [facility] of 00:00:00 [facility] Hep B, Adol or Pedi 2000 Completed [facility] of Dosage 00:00:00 [facility] Polio (IPV/OPV) 2000 Completed [facility] 00:00:00 [facility] HIB 4 Dose Schedule 2000 Completed [facility]ive [facility] of 00:00:00 [facility] DTAP 2000 Completed [facility] 00:00:00 [facility] HIB 4 Dose Schedule 2000 Completed [facility] of 00:00:00 [facility] Hep B, Adol or Pedi 2000 Completed [facility] Dosage 00:00:00 [facility] Polio (IPV/OPV) 2000 Completed [facility] 00:00:00 [facility] Hep B, Adol or Pedi 2000 Completed [facility] of Dosage 00:00:00 [facility] Hep B, Adol or Pedi 2000 Completed [facility] Dosage 00:00:00 [facility] Hep B, Adol or Pedi [...] 2000 Completed [facility] of Dosage 00:00:00 [facility] Hep B, Adol or Pedi 2000 Completed [facility] Dosage 00:00:00 [facility] Moderna COVID-19 Moderna COVID-19 Unknown Completed [facility] Moderna COVID-19 Moderna COVID-19 Unknown Completed [facility] Moderna COVID-19 Moderna COVID-19 Unknown Completed [facility] Moderna COVID-19 Moderna COVID-19 Unknown Completed [facility] Moderna COVID-19 Moderna COVID-19 Unknown Completed [facility] Moderna COVID-19 Moderna COVID-19 Unknown Completed [facility] Moderna COVID-19 Moderna COVID-19 Unknown Completed [facility] Moderna COVID-19 Moderna COVID-19 Unknown Completed [facility] DTAP Unknown Completed [facility] DTAP Unknown Completed [facility] DTAP Unknown Completed [facility] DTAP Unknown Completed [facility] DTAP Unknown Completed [facility] HIB 4 Dose Schedule Unknown Completed Unive [facility] HIB 4 Dose Schedule Unknown Completed Unive [facility] HIB 4 Dose Schedule Unknown Completed Un[facility] D[facility] HEPATITIS A Unknown Completed [facility] Hep B, Adol or Pedi Unknown Completed [facility] Dosage [facility] Hep B, Adol or Pedi Unknown Completed [facility] Dosage [facility] Hep B, Adol or Pedi Unknown Completed [facility] Dosage [facility] Meningococcal Unknown Completed [place] Vaccine [facility] MMR Unknown Completed [facility] MMR Unknown Completed [facility] Pneumococcal 7 Unknown Completed [place] [facility] Conjugate, PCV7 [facility] ical (Prevnar7) Branch Pneumococcal 7 Unknown Completed [facility] Conjugate, PCV7 [facility] ical (Prevnar7) Branch Pneumococcal 7 Unknown Completed [facility] Conjugate, PCV7 [facility] ical (Prevnar7) Branch Polio (IPV/OPV) Unknown Completed [facility] Polio (IPV/OPV) Unknown Completed [facility] Polio (IPV/OPV) Unknown Completed [facility] Polio (IPV/OPV) Unknown Completed [facility] TDAP Unknown Completed [facility] Varicella Unknown Completed [facility] (varivax)(chicken [place] [facility] pox) [facility] HPV Unknown Completed [facility] Influenza Virus Unknown Completed [facility] Vaccine (3+ yrs) [place] [facility] HPV Unknown Completed [facility] HPV Unknown Completed [facility] Influenza Virus Unknown Completed [facility] of Vaccine Quad .5 mL [facility] IM 6+ [place] Branch (FLUZONE/FLULAVAL/F LUARIX) DTAP Unknown Completed [facility] DTAP Unknown Completed [facility] DTAP Unknown Completed [facility] DTAP Unknown Completed [facility] DTAP Unknown Completed [facility] HIB 4 Dose Schedule Unknown Completed Unive [facility] HIB 4 Dose Schedule Unknown Completed Unive [facility] HIB 4 Dose Schedule Unknown Completed Unive [facility] HIB 4 Dose Schedule Unknown Completed Unive [facility] HEPATITIS A Unknown Completed [facility] HEPATITIS A Unknown Completed [facility] Hep B, Adol or Pedi Unknown Completed [facility] Dosage [facility] Hep B, Adol or Pedi Unknown Completed [facility] Dosage [facility] Hep B, Adol or Pedi Unknown [facility] Com[facility] [place] [facility] MMR Unknown Completed [facility] MMR Unknown Completed [facility] Pneumococcal 7 Unknown Completed [facility] Conjugate, PCV7 [facility] ical (Prevnar7) Branch Pneumococcal 7 Unknown Completed [facility] Conjugate, PCV7 [facility] ical (Prevnar7) Branch Pneumococcal 7 Unknown Completed [facility] Conjugate, PCV7 [facility] (Prevnar7) Branch Polio (IPV/OPV) Unknown Completed [facility] Polio (IPV/OPV) Unknown Completed [facility] Polio (IPV/OPV) Unknown Completed [facility] Polio (IPV/OPV) Unknown Completed [facility] TDAP Unknown Completed [facility] Varicella Unknown Completed [facility] (varivax)(chicken [place] [facility] pox) Branch HPV Unknown Completed [facility] Influenza Virus Unknown Completed [facility] y [facility] Vaccine (3+ yrs) [facility] Branch HPV Unknown Completed [facility] HPV Unknown Completed [facility] Influenza Virus Unknown Completed [facility] Vaccine Quad .5 mL [facility] IM 6+ [place] Branch (FLUZONE/FLULAVAL/F LUARIX) DTAP Unknown Completed [facility] DTAP Unknown Completed [facility] DTAP Unknown Completed [facility] DTAP Unknown Completed [facility] DTAP Unknown Completed [facility] HIB 4 Dose Schedule Unknown [facility] D[facility] D[facility] Unknown [facility] Dose Schedule Unknown Completed Unive [facility] HEPATITIS A Unknown Completed [facility] HEPATITIS A Unknown Completed [facility] Hep B, Adol or Pedi Unknown [facility] [place] B, Adol or Pedi Unknown [facility] [place] Hep B, Adol or Pedi Unknown [facility] [place] Meningococcal Unknown Completed [facility] MMR Unknown Completed [facility] MMR Unknown Completed [facility] Pneumococcal 7 Unknown Completed [facility] Conjugate, PCV7 [facility] (Prevnar7) Branch Pneumococcal 7 Unknown Completed [facility] Conjugate, PCV7 [facility] (Prevnar7) Branch Pneumococcal 7 Unknown Completed [facility] Conjugate, PCV7 [facility] (Prevnar7) Branch Polio (IPV/OPV[facility] Polio (IPV/OPV[facility] Polio (IPV/OPV[facility] Polio (IPV/OPV) Unknown Completed [facility] TDAP Unknown Completed [facility] Varicella Unknown Completed [facility] (varivax)(chicken [place] [facility] pox) Branch HPV Unknown Completed [facility] Influenza Virus Unknown Completed [facility] of Vaccine (3+ yrs) [facility] dical [place] HPV Unknown Completed [facility] HPV Unknown Completed [facility] Influenza Virus Unknown Completed [facility] Vaccine Quad .5 mL [facility] IM 6+ [place] Branch (FLUZONE/FLULAVAL/F LUARIX) DTAP Unknown Completed [facility] DTAP Unknown Completed [facility] DTAP Unknown Completed [facility] DTAP Unknown Completed [facility] DTAP Unknown Completed [facility] HIB 4 Dose Schedule Unknown [facility] D[facility] Dose [facility] Unknown [facility] Dose Schedule Unknown [facility] Completed [facility] HEPATITIS A Unknown Completed [facility] Hep B, Adol or Pedi Unknown Completed [facility]ive [facility] Dosage [facility] Hep B, Adol or Pedi Unknown Completed [facility] Dosage [facility] Hep B, Adol or Pedi Unknown Completed [facility] Meningococcal Unknown Completed [facility] MMR Unknown Completed [facility] MMR Unknown Completed [facility] Pneumococcal 7 Unknown Completed [facility] Conjugate, PCV7 [facility] (Prevnar7) Branch Pneumococcal 7 Unknown Completed [facility] Conjugate, PCV7 [facility] (Prevnar7) Branch Pneumococcal 7 Unknown Completed [facility] Conjugate, PCV7 [facility] (Prevnar7) Branch Polio (IPV/OPV) Unknown Completed [facility] Polio (IPV/OPV) Unknown Completed [facility] Polio (IPV/OPV) Unknown Completed [facility] Polio (IPV/OPV) Unknown Completed [facility] TDAP Unknown Completed [facility] Varicella Unknown Completed [facility] (varivax)(chicken [place] [facility] pox) Branch HPV Unknown Completed [facility] Influenza Virus Unknown Completed Universit y of Vaccine (3+ yrs) [facility] d[facility] Branch HPV Unknown Completed [facility] HPV Unknown Completed [facility] Influenza Virus Unknown Completed Universit y of Vaccine Quad .5 mL [facility] 6+ MO Branch (FLUZONE/FLULAVAL/F LUARIX) DTAP Unknown Completed [facility] DTAP Unknown Completed [facility] DTAP Unknown Completed [facility] DTAP Unknown Completed [facility] DTAP Unknown Completed [facility] HIB 4 Dose Schedule Unknown Completed Unive rsity [facility] HIB 4 Dose Schedule Unknown Completed Unive rsity [facility] HIB 4 Dose Schedule Unknown [facility] Dose Schedule Unknown [facility] A Unknown Completed [facility] HEPATITIS A Unknown Completed [facility] Hep B, Adol or Pedi Unknown Completed Unive rsity of Dosage [facility] Hep B, Adol or Pedi Unknown Completed Unive rsity of Dosage [facility] Hep B, Adol or Pedi Unknown Completed Unive rsity of Dosage [facility] Meningococcal Unknown Completed University of Vaccine [facility] MMR Unknown Completed [facility] MMR Unknown Completed [facility] Pneumococcal 7 Unknown Completed [facility] Conjugate, PCV7 [facility] (Prevnar7) Branch Pneumococcal 7 Unknown Completed [facility] Conjugate, PCV7 [facility] (Prevnar7) Branch Pneumococcal 7 Unknown Completed [facility] Conjugate, PCV7 [facility] (Prevnar7) Branch Polio (IPV/OPV) Unknown Completed [facility] Polio (IPV/OPV) [facility] Polio (IPV/OPV) Unknown Completed [facility] Polio (IPV/OPV) Unknown Completed [facility] TDAP Unknown Completed [facility] Varicella Unknown Completed University (varivax)(chicken [place] [facility] pox) Branch HPV Unknown Completed [facility] Influenza Virus Unknown Completed [facility] y of Vaccine (3+ yrs) [facility] dical Branch HPV Unknown Completed [facility] HPV Unknown Completed [facility] Influenza Virus Unknown Completed [facility] y of Vaccine Quad .5 mL [facility] 6+ MO Branch (FLUZONE/FLULAVAL/F LUARIX) DTAP Unknown Completed [facility] DTAP Unknown Completed [facility] DTAP Unknown Completed [facility] DTAP Unknown Completed [facility] DTAP Unknown Completed [facility] HIB 4 Dose Schedule Unknown [facility] Dose Schedule [facility] HIB 4 Dose Schedule Unknown [facility] HIB 4 Dose Schedule Unknown [facility] HEPATITIS A Unknown Completed [facility] HEPATITIS A Unknown Completed [facility] Hep B, Adol or Pedi Unknown Completed Unive rsity of Dosage [facility] Hep B, Adol or Pedi Unknown Completed Unive rsity of Dosage [facility] Hep B, Adol or Pedi Unknown Completed Unive rsity of Dosage [facility] Meningococcal Unknown Completed [facility] MMR Unknown Completed [facility] MMR Unknown Completed [facility] Pneumococcal 7 Unknown Completed [facility] Conjugate, PCV7 [facility] ical (Prevnar7) Branch Pneumococcal 7 Unknown Completed [facility] Conjugate, PCV7 [facility] ical (Prevnar7) Branch Pneumococcal 7 Unknown Completed [facility] Conjugate, PCV7 [facility] ical (Prevnar7) Branch Polio (IPV/OPV) Unknown Completed [facility] Polio (IPV/OPV[facility] Polio (IPV/OPV) [facility] Polio (IPV/OPV) Unknown Completed [facility] TDAP Unknown Completed [facility] Varicella Unknown Completed [facility] (varivax[place]chicken [place] [facility] pox) Branch HPV Unknown Completed [facility] Influenza Virus Unknown Completed [facility] y of Vaccine (3+ yrs) [facility] dical Branch HPV Unknown Completed [facility] HPV Unknown Completed [facility] Influenza Virus Unknown Completed [facility] of Vaccine Quad .5 mL [facility] 6+ MO Branch (FLUZONE/FLULAVAL/F LUARIX) DTAP Unknown Completed [facility] DTAP Unknown Completed [facility] DTAP Unknown Completed [facility] DTAP Unknown Completed [facility] DTAP Unknown Completed [facility] HIB 4 Dose Schedule Unknown [facility] HIB 4 Dose Schedule Unknown [facility] HIB 4 Dose Schedule Unknown [facility] HIB 4 Dose Schedule Unknown [facility] HEPATITIS A Unknown Completed [facility] HEPATITIS A Unknown Completed [facility] Hep B, Adol or Pedi Unknown Completed Unive rsity of Dosage [facility] Hep B, Adol or Pedi Unknown Completed Unive rsity of [facility] Hep B, Adol or Pedi Unknown Completed Unive rsity of Dosage [facility] Meningococcal Unknown Completed [facility] MMR Unknown Completed [facility] MMR Unknown Completed [facility] Pneumococcal 7 Unknown Completed [facility] Conjugate, PCV7 [place] [facility] (Pre[facility]7) Branch Pneumococcal 7 Unknown Completed [facility] Conjugate, PCV7 [place] [facility] (Prevnar7) Branch Pneumococcal 7 Unknown Completed [facility] Conjugate, PCV7 [place] [facility] (Prevnar7) Branch Polio (IPV/OPV) Unknown Completed [facility] Polio (IPV/OPV) [facility] Polio (IPV/OPV) Unknown Completed [facility] Polio (IPV/OPV) Unknown Completed [facility] TDAP Unknown Completed [facility] Varicella Unknown Completed University (varivax)(chicken [place] [facility] pox) Branch HPV Unknown Completed [facility] Influenza Virus Unknown Completed [facility] y of Vaccine (3+ yrs) [facility] dical Branch HPV Unknown Completed [facility] HPV Unknown Completed [facility] Influenza Virus Unknown Completed [facility] of Vaccine Quad .5 mL [facility] 6+ MO Branch (FLUZONE/FLULAVAL/F LUARIX) DTAP Unknown Completed [facility] DTAP Unknown Completed [facility] DTAP Unknown Completed [facility] DTAP Unknown Completed [facility] DTAP Unknown Completed [facility] HIB 4 Dose Schedule Unknown Completed Unive [facility] HIB 4 Dose Schedule Unknown Completed Unive [facility] HIB 4 Dose Schedule Unknown Completed Unive [facility] HIB 4 Dose Schedule Unknown Completed Unive [facility] HEPATITIS A Unknown Completed [facility] HEPATITIS A Unknown Completed [facility] Hep B, Adol or Pedi Unknown Completed Unive rsity of Dosage [facility] Hep B, Adol or Pedi Unknown Completed Unive rsity of Dosage [facility] Hep B, Adol or Pedi Unknown Completed Unive rsity of Dosage [facility] Meningococcal Unknown Completed [facility] of Vaccine [facility] MMR Unknown Completed [facility] MMR Unknown Completed [facility] Pneumococcal 7 Unknown Completed [facility] Conjugate, PCV7 [place] [facility] (Prevnar7) Branch Pneumococcal 7 Unknown Completed [facility] Conjugate, PCV7 [place] [facility] (Prevnar7) Branch Pneumococcal 7 Unknown Completed [facility] Conjugate, PCV7 [place] [facility] (Prevnar7) Branch Polio (IPV/OPV) Unknown Completed [facility] Polio (IPV/OPV) Unknown Completed [facility] Polio (IPV/OPV) Unknown Completed [facility] Polio (IPV/OPV) [facility] TDAP Unknown Completed [facility] Varicella Unknown Completed [facility] (varivax)(chicken [place] [facility] pox) Branch HPV Unknown Completed [facility] Influenza Virus Unknown Completed [facility] of Vaccine (3+ yrs) [place] [facility] HPV Unknown Completed [facility] HPV Unknown Completed [facility] Influenza Virus Unknown Completed [facility] y of Vaccine Quad .5 mL [facility] 6+ MO Branch (FLUZONE/FLULAVAL/F LUARIX) DTAP Unknown Completed [facility] DTAP Unknown Completed [facility] DTAP Unknown Completed [facility] DTAP Unknown Completed [facility] DTAP Unknown Completed [facility] HIB 4 Dose Schedule Unknown [facility] HIB 4 Dose Schedule Unknown Com[facility] HIB 4 Dose Schedule Unknown Completed [facility] HIB 4 [facility]ose Schedule Unknown Com[facility] HEPATITIS A Unknown Completed [facility] HEPATITIS A Unknown Completed [facility] Hep B, Adol or Pedi Unknown Completed Unive rsity of [facility] Hep B, Adol or Pedi Unknown Completed Unive rsity of [facility] Hep B, Adol or Pedi Unknown Completed Unive rsity of Dosage [facility] Meningococcal Unknown Completed [facility] Vaccine [facility] MMR Unknown Completed [facility] MMR Unknown Completed [facility] Pneumococcal 7 Unknown Completed [facility] of Conjugate, PCV7 [facility] ical (Prevnar7) Branch Pneumococcal 7 Unknown Completed [facility] Conjugate, PCV7 [facility] ical (Prevnar7) Branch Pneumococcal 7 Unknown Completed [facility] Conjugate, PCV7 [facility] ical (Prevnar7) Branch Polio (IPV/OPV) Unknown Completed [facility] Polio (IPV/OPV) Unknown Completed [facility] Polio (IPV/OPV) Unknown Completed [facility] Polio (IPV/OPV) Unknown Completed [facility] [place] [facility] TDAP Unknown Completed [facility] Varicella Unknown Completed [facility] (varivax)(chicken [place] [facility] pox) Branch HPV Unknown Completed [facility] Influenza Virus Unknown Completed [facility] y of Vaccine (3+ yrs) [facility] dical Branch HPV Unknown Completed [facility] HPV Unknown Completed [facility] Influenza Virus Unknown Completed [facility] y of Vaccine Quad .5 mL [facility] IM 6+ MO Branch (FLUZONE/FLULAVAL/F LUARIX) DTAP Unknown Completed [facility] DTAP Unknown Completed [facility] DTAP Unknown Completed [facility] DTAP Unknown Completed [facility] DTAP Unknown Completed [facility] HIB 4 Dose Schedule Unknown Com[facility] HIB 4 Dose Schedule Unknown Completed Unive [facility] HIB 4 Dose Schedule Unknown Completed Unive [facility] HIB 4 Dose Schedule Unknown Completed Unive [facility] HEPATITIS A Unknown Completed [facility] HEPATITIS A Unknown Completed [facility] Hep B, Adol or Pedi Unknown Completed Unive rsity of Dosage [facility] Hep B, Adol or Pedi Unknown Completed Unive rsity of Dosage [facility] Hep B, Adol or Pedi Unknown Completed Unive rsity [facility] Meningococcal Unknown Completed [facility] MMR Unknown Completed [facility] MMR Unknown Completed [facility] Pneumococcal 7 Unknown Completed [facility] Conjugate, PCV7 [facility] (Prevnar7) Branch Pneumococcal 7 Unknown Completed [facility] Conjugate, PCV7 [facility] (Prevnar7) Branch Pneumococcal 7 Unknown Completed [facility] Conjugate, PCV7 [facility] (Prevnar7) Branch Polio (IPV/OPV) Unknown Completed [facility] Polio (IPV/OPV) Unknown Completed [facility] Polio (IPV/OPV) Unknown Completed [facility] Polio (IPV/OPV) Unknown Completed [facility] TDAP Unknown Completed [facility] Varicella Unknown Completed [facility] (varivax)(chicken [place] [facility] pox) Branch HPV Unknown Completed [facility] Influenza Virus Unknown Completed [facility] of Vaccine (3+ yrs) [place] [facility] HPV Unknown Completed [facility] HPV Unknown Completed [facility] Influenza Virus Unknown Completed [facility] y of Vaccine Quad .5 mL [facility] IM 6+ MO Branch (FLUZONE/FLULAVAL/F LUARIX) DTAP Unknown Completed [facility] DTAP Unknown Completed [facility] DTAP Unknown Completed [facility] DTAP Unknown Completed [facility] DTAP Unknown Completed [facility] HIB 4 Dose Schedule Unknown [facility] HIB 4 Dose Schedule Unknown Completed [facility] HIB 4 Dose Schedule Unknown Completed Unive [facility] HIB 4 Dose Schedule Unknown Completed Unive [facility] HEPATITIS A Unknown Completed [facility] HEPATITIS A Unknown Completed [facility] Hep B, Adol or Pedi Unknown [facility], Ad[facility] Pedi [facility] Hep B, Adol or Pedi Unknown Completed Unive [facility]ity [facility] Meningococcal Unknown Completed [facility] MMR Unknown Completed [facility] MMR Unknown Completed [facility] Pneumococcal 7 Unknown Completed [facility] Conjugate, PCV7 [facility] (Prevnar7) Branch Pneumococcal 7 Unknown Completed [facility] Conjugate, PCV7 [facility] (Prevnar7) Branch Pneumococcal 7 Unknown Completed [facility] Conjugate, PCV7 [facility] (Prevnar7) Branch Polio (IPV/OPV) Unknown Completed [facility] Polio (IPV/OPV) Unknown Completed [facility] Polio (IPV/OPV) Unknown Completed [facility] Polio (IPV/OPV) Unknown Completed [facility] TDAP Unknown Completed [facility] Varicella Unknown Completed [facility] (varivax)(chicken [place] [facility] pox) Branch HPV Unknown Completed [facility] Influenza Virus Unknown Completed Univers[facility] y of Vaccine (3+ yrs) [facility] dical [place] HPV Unknown Completed [facility] HPV Unknown Completed [facility] Influenza Virus Unknown Completed [facility] y of Vaccine Quad .5 mL [facility] IM 6+ MO Branch (FLUZONE/FLULAVAL/F LUARIX) DTAP Unknown Completed [facility] DTAP Unknown Completed [facility] DTAP Unknown Completed [facility] DTAP Unknown Completed [facility] DTAP Unknown Completed [facility] HIB 4 Dose Schedule Unknown Com[facility] HIB 4 Dose Schedule Unknown Completed Unive [facility] HIB 4 Dose Schedule Unknown Completed Unive [facility] HIB 4 Dose Schedule Unknown Completed Unive [facility] HEPATITIS A Unknown Completed [facility] HEPATITIS A Unknown Completed [facility] Hep B, Adol or Pedi Unknown Completed Unive rsity [facility] Hep B, Adol or Pedi Unknown Completed Unive rsity of [facility] Hep B, Adol or Pedi Unknown Completed Unive rsity of [facility] Meningococcal Unknown Completed [facility] Vaccine [facility] MMR Unknown Completed [facility] MMR Unknown Completed [facility] Pneumococcal 7 Unknown Completed [facility] Conjugate, PCV7 [facility] (Prevnar7) Branch Pneumococcal 7 Unknown Completed [facility] Conjugate, PCV7 [facility] (Prevnar7) Branch Pneumococcal 7 Unknown Completed [facility] Conjugate, PCV7 [facility] (Prevnar7) Branch Polio (IPV/OPV) Unknown Completed [facility] Polio (IPV/OPV) Unknown Completed [facility] Polio (IPV/OPV) Unknown Completed [facility] Polio (IPV/OPV) Unknown Completed [facility] TDAP Unknown Completed [facility] Varicella Unknown Completed [facility] (varivax)(chicken [place] [facility] pox) Branch HPV Unknown Completed [facility] Influenza Virus Unknown Completed Universit y of Vaccine (3+ yrs) [facility] dical Branch HPV Unknown Completed [facility] HPV Unknown Completed [facility] Influenza Virus Unknown Completed Univers[facility] y of Vaccine Quad .5 mL [facility] 6+ MO Branch (FLUZONE/FLULAVAL/F LUARIX) DTAP Unknown Completed [facility] DTAP Unknown Completed [facility] DTAP Unknown Completed [facility] DTAP Unknown Completed [facility] DTAP Unknown Completed [facility] HIB 4 Dose Schedule Unknown Com[facility] HIB 4 Dose Schedule Unknown Completed [facility] HIB 4 Dose Schedule Unknown Completed [facility] HIB 4 Dose Schedule Unknown Completed [facility] HEPATITIS A Unknown Completed [facility] HEPATITIS A Unknown Completed [facility] Hep B, Adol or Pedi Unknown Completed Unive [facility]ity [facility] Hep B, Adol or Pedi Unknown Completed Unive rsity [facility] Hep B, Adol or Pedi Unknown Completed Unive rsity [facility] Meningococcal Unknown Completed [facility] MMR Unknown Completed [facility] MMR Unknown Completed [facility] Pneumococcal 7 Unknown Completed [facility] Conjugate, PCV7 [facility] (Prevnar7) Branch Pneumococcal 7 Unknown Completed [facility] Conjugate, PCV7 [facility] (Prevnar7) Branch Pneumococcal 7 Unknown Completed [facility] Conjugate, PCV7 [facility] (Prevnar7) Branch Polio (IPV/OPV) Unknown Completed [facility] Polio (IPV/OPV) Unknown Completed [facility] Polio (IPV/OPV) Unknown Completed [facility] Polio (IPV/OPV) Unknown Completed [facility] TDAP Unknown Completed [facility] Varicella Unknown Completed [facility] (varivax)(chicken [place] [facility] pox) Branch HPV Unknown Completed [facility] Influenza Virus Unknown Completed Universit y of Vaccine (3+ yrs) [facility] dical Branch HPV Unknown Completed [facility] HPV Unknown Completed [facility] Influenza Virus Unknown Completed Universit y of Vaccine Quad .5 mL [facility] 6+ MO Branch (FLUZONE/FLULAVAL/F LUARIX) DTAP Unknown Completed [facility] DTAP Unknown Completed [facility] DTAP Unknown Completed [facility] DTAP Unknown Completed [facility] DTAP Unknown Completed [facility] HIB 4 Dose Schedule Unknown Com[facility] HIB 4 Dose Schedule Unknown Completed [facility] HIB 4 Dose Schedule Unknown Completed [facility]ive [facility] HIB 4 Dose Schedule Unknown Com[facility] HEPATITIS A Unknown Completed [facility] HEPATITIS A Unknown Completed [facility] Hep B, Adol or Pedi Unknown Completed Unive rsity [facility] Hep B, Adol or Pedi Unknown Completed Unive rsity of Dosage [facility] Hep B, Adol or Pedi Unknown Completed Unive rsity of Dosage [facility] Meningococcal Unknown Completed [facility] MMR Unknown Completed [facility] MMR Unknown Completed [facility] Pneumococcal 7 Unknown Completed [place] [facility] Conjugate, PCV7 [facility] ical (Prevnar7) Branch Pneumococcal 7 Unknown Completed [facility] Conjugate, PCV7 [facility] ical (Prevnar7) Branch Pneumococcal 7 Unknown Completed [facility] Conjugate, PCV7 [facility] ical (Prevnar7) Branch Polio (IPV/OPV) [facility] Polio (IPV/OPV) Unknown Completed [facility] Polio (IPV/OPV) Unknown Completed [facility] Polio (IPV/OPV) Unknown Completed [facility] TDAP Unknown Completed [facility] Varicella Unknown Completed [facility] (varivax)(chicken [place] [facility] ed[facility] pox) Branch HPV Unknown Completed [facility] Influenza Virus Unknown Completed Universit y of Vaccine (3+ yrs) [facility] d[facility] Branch HPV Unknown Completed [facility] HPV Unknown Completed [facility] Influenza Virus Unknown Completed Universit y of Vaccine Quad .5 mL [facility] 6+ MO Branch (FLUZONE/FLULAVAL/F LUARIX) DTAP Unknown Completed [facility] DTAP Unknown Completed [facility] DTAP Unknown Completed [facility] DTAP Unknown Completed [facility] DTAP Unknown Completed [facility] HIB 4 Dose Schedule Unknown Com[facility] Dose Schedule Unknown [facility] HIB 4 Dose Schedule Unknown Com[facility] HIB 4 Dose Schedule Unknown Completed Unive [facility] HEPATITIS A Unknown Completed [facility] HEPATITIS A Unknown Completed [facility] Hep B, Adol or Pedi Unknown Completed Unive rsity of Dosage [facility] Hep B, Adol or Pedi Unknown Completed Unive rsity of Dosage [facility] Hep B, Adol or Pedi Unknown Completed Unive rsity of [facility] Meningococcal Unknown Completed [facility] MMR Unknown Completed [facility] MMR Unknown Completed [facility] Pneumococcal 7 Unknown Completed [facility] Conjugate, PCV7 [place] [facility] (Prevnar7) Branch Pneumococcal 7 Unknown Completed [facility] Conjugate, PCV7 [place] [facility] (Prevnar7) Branch Pneumococcal 7 Unknown Completed [facility] Conjugate, PCV7 [place] [facility] (Prevnar7) Branch Polio (IPV/OPV) Unknown Completed [facility] Polio (IPV/OPV) Unknown Completed [facility] Polio (IPV/OPV) Unknown Completed [facility] Polio (IPV/OPV) Unknown Completed [facility] TDAP Unknown Completed [facility] Varicella Unknown Completed University (varivax)(chicken [place] M ed[facility] pox) Branch HPV Unknown Completed [facility] Influenza Virus Unknown Completed Universit y of Vaccine (3+ yrs) [facility] dical Branch HPV Unknown Completed [facility] HPV Unknown Completed [facility] Influenza Virus Unknown Completed Universit y of Vaccine Quad .5 mL [facility] 6+ MO Branch (FLUZONE/FLULAVAL/F LUARIX) DTAP Unknown Completed [facility] DTAP Unknown Completed [facility] DTAP Unknown Completed [facility] DTAP Unknown Completed [facility] DTAP Unknown Completed [facility] HIB 4 Dose Schedule Unknown Completed Unive [facility] HIB 4 Dose Schedule Unknown Completed Unive [facility] HIB 4 Dose Schedule Unknown Completed Unive [facility] HIB 4 Dose Schedule Unknown Completed Unive [facility] HEPATITIS A Unknown Completed [facility] HEPATITIS A Unknown Completed [facility] Hep B, Adol or Pedi Unknown Completed Unive rsity of Dosage [facility] Hep B, Adol or Pedi Unknown Completed Unive rsity of [facility] Hep B, Adol or Pedi Unknown Completed Unive rsity [facility] Meningococcal Unknown Completed University of Vaccine [facility] MMR Unknown Completed [facility] MMR Unknown Completed [facility] Pneumococcal 7 Unknown Completed [facility] Conjugate, PCV7 [place] [facility] (Prevnar7) Branch Pneumococcal 7 Unknown Completed [facility] Conjugate, PCV7 [place] [facility] (Prevnar7) Branch Pneumococcal 7 Unknown Completed [facility] Conjugate, PCV7 [place] [facility] (Prevnar7) Branch Polio (IPV/OPV) [facility] Polio (IPV/OPV) Unknown Completed [facility] Polio (IPV/OPV) Unknown Completed [facility] TDAP Unknown Completed [facility] Varicella Unknown Completed University (varivax)(chicken [place] [facility] edical pox) Branch HPV Unknown Completed [facility] Influenza Virus Unknown Completed [facility] Vaccine (3+ yrs) [place] [facility] HPV Unknown Completed [facility] HPV Unknown Completed [facility] Influenza Virus Unknown Completed [facility]it y of Vaccine Quad .5 mL [facility] 6+ MO Branch (FLUZONE/FLULAVAL/F LUARIX) DTAP Unknown Completed [facility] DTAP Unknown Completed [facility] DTAP Unknown Completed [facility] DTAP Unknown Completed [facility] DTAP Unknown Completed [facility] HIB 4 Dose Schedule Unknown [facility] HIB 4 Dose Schedule Unknown Completed [facility] HIB 4 Dose Schedule Unknown Completed Unive [facility] HIB 4 Dose Schedule Unknown Completed Unive [facility] HEPATITIS A Unknown Completed [facility] HEPATITIS A Unknown Completed [facility] Hep B, Adol or Pedi Unknown Completed Unive rsity of Dosage [facility] Hep B, Adol or Pedi Unknown Completed Unive rsity of Dosage [facility] Hep B, Adol or Pedi Unknown Completed Unive rsity of [facility] Meningococcal Unknown Completed [facility] Vaccine [facility] MMR Unknown Completed [facility] MMR Unknown Completed [facility] Pneumococcal 7 Unknown Completed [facility] Conjugate, PCV7 [facility] ical (Prevnar7) Branch Pneumococcal 7 Unknown Completed [facility] Conjugate, PCV7 [facility] ical (Prevnar7) Branch Pneumococcal 7 Unknown Completed [facility] Conjugate, PCV7 [facility] ical (Prevnar7) Branch Polio (IPV/OPV) Unknown Completed [facility] Polio (IPV/OPV) Unknown Completed [facility] Polio (IPV/OPV) Unknown Completed [facility] Polio (IPV/OPV) Unknown Completed [facility] TDAP Unknown Completed [facility] Varicella Unknown Completed [facility] (varivax)(chicken [place] [facility] ed[facility] pox) Branch HPV Unknown Completed [facility] Influenza Virus Unknown Completed Universit y of Vaccine (3+ yrs) [facility] dical Branch HPV Unknown Completed [facility] HPV Unknown Completed [facility] Influenza Virus Unknown Completed [facility]it y of Vaccine Quad .5 mL [facility] 6+ MO Branch (FLUZONE/FLULAVAL/F LUARIX) DTAP Unknown Completed [facility] DTAP Unknown Completed [facility] DTAP Unknown Completed [facility] DTAP Unknown Completed [facility] DTAP Unknown Completed [facility] HIB 4 Dose Schedule Unknown Com[facility] HIB 4 Dose Schedule Unknown Completed Unive [facility] HIB 4 Dose Schedule Unknown Completed Unive [facility] HIB 4 Dose Schedule Unknown Completed Unive [facility] HEPATITIS A Unknown Completed [facility] HEPATITIS A Unknown Completed [facility] Hep B, Adol or Pedi Unknown Completed Unive rsity of Dosage [facility] Hep B, Adol or Pedi Unknown Completed Unive rsity of [facility] Hep B, Adol or Pedi Unknown [facility] Completed [facility] MMR Unknown Completed [facility] MMR Unknown Completed [facility] Pneumococcal 7 Unknown Completed [facility] Conjugate, PCV7 [facility] (Prevnar7) Branch Pneumococcal 7 Unknown Completed [facility] Conjugate, PCV7 [facility] (Prevnar7) Branch Pneumococcal 7 Unknown Completed [facility] Conjugate, PCV7 [facility] (Prevnar7) Branch Polio (IPV/OPV) Unknown Completed [facility] Polio (IPV/OPV) Unknown Completed [facility] Polio (IPV/OPV) [facility] Polio (IPV/OPV) Unknown Completed [facility] TDAP Unknown Completed [facility] Varicella Unknown Completed [facility] (varivax)(chicken [place] [facility] ed[facility] pox) Branch HPV Unknown Completed [facility] Influenza Virus Unknown Completed Universit y of Vaccine (3+ yrs) [facility] dical Branch HPV Unknown Completed [facility] HPV Unknown Completed [facility] Influenza Virus Unknown Completed Universit y of Vaccine Quad .5 mL [facility] IM 6+ MO Branch (FLUZONE/FLULAVAL/F LUARIX) DTAP Unknown Completed [facility] DTAP Unknown Completed [facility] DTAP Unknown Completed [facility] DTAP Unknown Completed [facility] DTAP Unknown Completed [facility] HIB 4 Dose Schedule Unknown Completed Unive [facility] HIB 4 Dose Schedule Unknown Completed [facility] HIB 4 Dose Schedule Unknown Completed Unive [facility] HIB 4 Dose Schedule Unknown Completed Unive [facility] HEPATITIS A Unknown Completed [facility] HEPATITIS A Unknown Completed [facility] Hep B, Adol or Pedi Unknown [facility] Hep B, Adol or Pedi Unknown Completed Unive [facility] Hep B, Adol or Pedi Unknown [facility] Meningococcal Unknown Completed [facility] MMR Unknown Completed [facility] MMR Unknown Completed [facility] Pneumococcal 7 Unknown Completed [facility] Conjugate, PCV7 [facility] (Prevnar7) Branch Pneumococcal 7 Unknown Completed [facility] Conjugate, PCV7 [facility] (Prevnar7) Branch Pneumococcal 7 Unknown Completed [facility] Conjugate, PCV7 [facility] (Prevnar7) Branch Polio (IPV/OPV) Unknown Completed [facility] Polio (IPV/OPV) Unknown Completed [facility] Polio (IPV/OPV) Unknown Completed [facility] Polio (IPV/OPV) Unknown Completed [facility] TDAP Unknown Completed [facility] Varicella Unknown Completed [facility] (varivax)(chicken [place] M edical pox) Branch HPV Unknown Completed [facility] Influenza Virus Unknown Completed Universit y of Vaccine (3+ yrs) [facility] dical Branch HPV Unknown Completed [facility] HPV Unknown Completed [facility] Influenza Virus Unknown Completed Universit y of Vaccine Quad .5 mL [facility] IM 6+ MO Branch (FLUZONE/FLULAVAL/F LUARIX) DTAP Unknown Completed [facility] DTAP Unknown Completed [facility] DTAP Unknown Completed [facility] DTAP Unknown Completed [facility] DTAP Unknown Completed [facility] HIB 4 Dose Schedule Unknown Completed [facility] HIB 4 Dose Schedule Unknown Completed [facility] HIB 4 Dose Schedule Unknown Completed [facility] HIB 4 Dose Schedule Unknown Completed Unive [facility] HEPATITIS A Unknown Completed [facility] HEPATITIS A Unknown Completed [facility] Hep B, Adol or Pedi Unknown Completed Unive rsity of Dosage [facility] Hep B, Adol or Pedi Unknown Completed Unive rsity of [facility] Hep B, Adol or Pedi Unknown Completed Unive rsity of [facility] Meningococcal Unknown Completed [facility] Vaccine [facility] MMR Unknown Completed [facility] MMR Unknown Completed [facility] Pneumococcal 7 Unknown Completed [facility] Conjugate, PCV7 [facility] (Prevnar7) Branch Pneumococcal 7 Unknown Completed [facility] Conjugate, PCV7 [facility] (Prevnar7) Branch Pneumococcal 7 Unknown Completed [facility] Conjugate, PCV7 [facility] (Prevnar7) Branch Polio (IPV/OPV) Unknown Completed Universit [facility] Polio (IPV/OPV) Unknown Completed [facility] Polio (IPV/OPV) Unknown Completed [facility] Polio (IPV/OPV) Unknown Completed [facility] TDAP Unknown Completed [facility] Varicella Unknown Completed [facility] (varivax)(chicken [place] M edical pox) Branch HPV Unknown Completed [facility] Influenza Virus Unknown Completed Universit y of Vaccine (3+ yrs) [facility] dical Branch HPV Unknown Completed [facility] HPV Unknown Completed [facility] Influenza Virus Unknown Completed Universit y of Vaccine Quad .5 mL [facility] 6+ MO Branch (FLUZONE/FLULAVAL/F LUARIX) DTAP Unknown Completed [facility] DTAP Unknown Completed [facility] DTAP Unknown Completed [facility] DTAP Unknown Completed [facility] DTAP Unknown Completed [facility] HIB 4 Dose Schedule Unknown Completed [facility] HIB 4 Dose Schedule Unknown Completed [facility] HIB 4 Dose Schedule Unknown Completed Unive rsity [facility] HIB 4 Dose Schedule Unknown Completed [facility] HEPATITIS A Unknown Completed [facility] HEPATITIS A Unknown Completed [facility] Hep B, Adol or Pedi Unknown Completed Unive rsity of Dosage [facility] Hep B, Adol or Pedi Unknown Completed Unive rsity of Dosage [facility] Hep B, Adol or Pedi Unknown Completed Unive rsity of [facility] Meningococcal Unknown Completed University of Vaccine [facility] MMR Unknown Completed [facility] MMR Unknown Completed [facility] Pneumococcal 7 Unknown Completed [facility] Conjugate, PCV7 [facility] ical (Prevnar7) Branch Pneumococcal 7 Unknown Completed [facility] Conjugate, PCV7 [facility] ical (Prevnar7) Branch Pneumococcal 7 Unknown Completed [facility] Conjugate, PCV7 [facility] ical (Prevnar7) Branch Polio (IPV/OPV) Unknown Completed [facility] Polio (IPV/OPV) Unknown Completed [facility] Polio (IPV/OPV) Unknown Completed [facility] Polio (IPV/OPV) Unknown Completed [facility] TDAP Unknown Completed [facility] Varicella Unknown Completed [facility] (varivax)(chicken [place] M edical pox) Branch HPV Unknown Completed [facility] Influenza Virus Unknown Completed Universit y of Vaccine (3+ yrs) [facility] dical Branch HPV Unknown Completed [facility] HPV Unknown Completed [facility] Influenza Virus Unknown Completed Universit y of Vaccine Quad .5 mL [facility] 6+ MO Branch (FLUZONE/FLULAVAL/F LUARIX) DTAP Unknown Completed [facility] DTAP Unknown Completed [facility] DTAP Unknown Completed [facility] DTAP Unknown Completed [facility] DTAP Unknown Completed [facility] HIB 4 Dose Schedule Unknown Completed [facility] HIB 4 Dose Schedule Unknown Completed [facility] HIB 4 Dose Schedule Unknown Completed Unive rsity [facility] HIB 4 Dose Schedule Unknown Completed Unive rsity [facility] HEPATITIS A Unknown Completed [facility] HEPATITIS A Unknown Completed [facility] Hep B, Adol or Pedi Unknown Completed Unive rsity of Dosage [facility] Hep B, Adol or Pedi Unknown Completed Unive rsity of Dosage [facility] Hep B, Adol or Pedi Unknown Completed Unive rsity of Dosage [facility] Meningococcal Unknown Completed [facility] MMR Unknown Completed [facility] MMR Unknown Completed [facility] Pneumococcal 7 Unknown Completed [place] Conjugate, PCV7 [place] [facility] (Prevnar7) Branch Pneumococcal 7 Unknown Completed [place] [facility] Conjugate, PCV7 [facility] ical (Prevnar7) Branch Pneumococcal 7 Unknown Completed [facility] Conjugate, PCV7 [facility] ical (Prevnar7) Branch Polio (IPV/OPV) Unknown Completed Universit [facility] Polio (IPV/OPV) [facility] Polio (IPV/OPV) Unknown [facility] Polio (IPV/OPV) Unknown Completed [facility] TDAP Unknown Completed [facility] Varicella Unknown Completed [facility] (varivax)(chicken [place] M edical pox) Branch HPV Unknown Completed [facility] Influenza Virus Unknown Completed [facility] y of Vaccine (3+ yrs) [place] [facility] HPV Unknown Completed [facility] HPV Unknown Completed [facility] Influenza Virus Unknown Completed Universit y of Vaccine Quad .5 mL [facility] 6+ MO Branch (FLUZONE/FLULAVAL/F LUARIX) DTAP Unknown Completed [facility] DTAP Unknown Completed [facility] DTAP Unknown Completed [facility] DTAP Unknown Completed [facility] DTAP Unknown Completed [facility] HIB 4 Dose Schedule Unknown Completed Unive [facility] HIB 4 Dose Schedule Unknown Completed Unive [facility] HIB 4 Dose Schedule Unknown Completed [facility] HIB 4 Dose Schedule Unknown Completed Unive [facility] HEPATITIS A Unknown Completed [facility] HEPATITIS A Unknown Completed [facility] Hep B, Adol or Pedi Unknown Completed Unive rsity of Dosage [facility] Hep B, Adol or Pedi Unknown Completed Unive rsity of Dosage [facility] Hep B, Adol or Pedi Unknown Completed Unive rsity of Dosage [facility] Meningococcal Unknown Completed [facility] MMR Unknown Completed [facility] MMR Unknown Completed [facility] Pneumococcal 7 Unknown Completed [facility] Conjugate, PCV7 [place] [facility] (Prevnar7) Branch Pneumococcal 7 Unknown Completed [facility] of Conjugate, PCV7 [facility] ical (Prevnar7) Branch Pneumococcal 7 Unknown Completed University Conjugate, PCV7 [facility] ical (Prevnar7) Branch Polio (IPV/OPV) Unknown Completed [facility] Polio (IPV/OPV) Unknown Completed [facility] Polio (IPV/OPV) Unknown Completed [facility] Polio (IPV/OPV) Unknown Completed [facility] TDAP Unknown Completed [facility] Varicella Unknown Completed [facility] (varivax)(chicken [place] [facility] edical pox) Branch HPV Unknown Completed [facility] Influenza Virus Unknown Completed [facility] y of Vaccine (3+ yrs) [place] [facility] Branch HPV Unknown Completed [facility] HPV Unknown Completed [facility] Influenza Virus Unknown Completed Universit y of Vaccine Quad .5 mL [facility] IM 6+ MO Branch (FLUZONE/FLULAVAL/F LUARIX) DTAP Unknown Completed [facility] DTAP Unknown Completed [facility] DTAP Unknown Completed [facility] DTAP Unknown Completed [facility] DTAP Unknown Completed [facility] HIB 4 Dose Schedule Unknown Completed Unive [facility] HIB 4 Dose Schedule Unknown Completed Unive [facility] HIB 4 Dose Schedule Unknown Completed [facility] HIB 4 Dose Schedule Unknown Completed Unive [facility] HEPATITIS A Unknown Completed [facility] HEPATITIS A Unknown Completed [facility] Hep B, Adol or Pedi Unknown Completed Unive rsity of Dosage [facility] Hep B, Adol or Pedi Unknown Completed Unive rsity of [facility] Hep B, Adol or Pedi Unknown Completed Unive rsity [facility] Meningococcal Unknown Completed University [facility] MMR Unknown Completed [facility] MMR Unknown Completed [facility] Pneumococcal 7 Unknown Completed [facility] of Conjugate, PCV7 [facility] ical (Prevnar7) Branch Pneumococcal 7 Unknown Completed [facility] of Conjugate, PCV7 [facility] ical (Prevnar7) Branch Pneumococcal 7 Unknown Completed University Conjugate, PCV7 [facility] ical (Prevnar7) Branch Polio (IPV/OPV) [facility] Polio (IPV/OPV[facility] Polio (IPV/OPV) Unknown Completed [facility] Polio (IPV/OPV) Unknown Completed [facility] TDAP Unknown Completed [facility] Varicella Unknown Completed [facility] of (varivax)(chicken [place] [facility] ed[facility] pox) Branch HPV Unknown Completed [facility] Influenza Virus Unknown Completed Universit y of Vaccine (3+ yrs) [place] [facility] HPV Unknown Completed [facility] HPV Unknown Completed [facility] Influenza Virus Unknown Completed Universit y of Vaccine Quad .5 mL [facility] IM 6+ MO Branch (FLUZONE/FLULAVAL/F LUARIX) DTAP Unknown Completed [facility] DTAP Unknown Completed [facility] DTAP Unknown Completed [facility] DTAP Unknown Completed [facility] DTAP Unknown Completed [facility] HIB 4 Dose Schedule Unknown Completed Unive [facility] HIB 4 Dose Schedule Unknown Completed Unive [facility] HIB 4 Dose Schedule Unknown Completed Unive [facility] HIB 4 D[facility] HEPATITIS A Unknown Completed [facility] Hep B, Adol or Pedi Unknown Completed Unive rsity of Dosage [facility] Hep B, Adol or Pedi Unknown Completed Unive rsity [facility] Hep B, Adol or Pedi Unknown [facility] Completed [place] Vaccine [facility] MMR Unknown Completed [facility] MMR Unknown Completed [facility] Pneumococcal 7 Unknown Completed [facility] Conjugate, PCV7 [facility] ical (Prevnar7) Branch Pneumococcal 7 Unknown Completed [facility] Conjugate, PCV7 [facility] ical (Prevnar7) Branch Pneumococcal 7 Unknown Completed [facility] Conjugate, PCV7 [facility] ica (Prevnar7) Branch Polio (IPV/OPV) Unknown Completed [facility] Polio (IPV/OPV) Unknown Completed [facility] Polio (IPV/OPV) Unknown Completed [facility] Polio (IPV/OPV) Unknown Completed [facility] TDAP Unknown Completed [facility] Varicella Unknown Completed University of (varivax)(chicken [place] [facility] pox) Branch HPV Unknown Completed [facility] Influenza Virus Unknown Completed Universit y of Vaccine (3+ yrs) [facility] dical Branch HPV Unknown Completed [facility] HPV Unknown Completed [facility] Influenza Virus Unknown Completed Universit y of Vaccine Quad .5 mL [facility] IM 6+ [place] Branch (FLUZONE/FLULAVAL/F LUARIX) DTAP Unknown Completed [facility] DTAP Unknown Completed [facility] DTAP Unknown Completed [facility] DTAP Unknown Completed [facility] DTAP Unknown Completed [facility] HIB 4 Dose Schedule Unknown [facility] Dose Schedule Unknown [facility] 4 Dose Schedule Unknown Com[facility] 4 Dose Schedule Unknown Completed Unive [facility] HEPATITIS A Unknown Completed [facility] HEPATITIS A Unknown Completed [facility] Hep B, Adol or Pedi Unknown Completed Unive rsity [facility] Hep B, Adol or Pedi Unknown Completed Unive rsity [facility] Hep B, Adol or Pedi Unknown [facility] Meningococcal [facility] Completed [facility] MMR Unknown Completed [facility] MMR Unknown Completed [facility] Pneumococcal 7 Unknown Completed [facility] Conjugate, PCV7 [facility] (Prevnar7) Branch Pneumococcal 7 Unknown Completed [facility] Conjugate, PCV7 [facility] (Prevnar7) Branch Pneumococcal 7 Unknown Completed [facility] Conjugate, PCV7 [facility] (Prevnar7) Branch Polio (IPV/OPV) Unknown Completed [facility] Polio (IPV/OPV) Unknown Completed [facility] Polio (IPV/OPV) Unknown Completed [facility] Polio (IPV/OPV) Unknown Completed Universit [facility] TDAP Unknown Completed [facility] Varicella Unknown Completed University (varivax)(chicken [place] [facility] pox) Branch HPV Unknown Completed [facility] Influenza Virus Unknown Completed Universit y of Vaccine (3+ yrs) [facility] dical Branch HPV Unknown Completed [facility] HPV Unknown Completed [facility] Influenza Virus Unknown Completed Universit y of Vaccine Quad .5 mL [facility] IM 6+ [place] Branch (FLUZONE/FLULAVAL/F LUARIX) DTAP Unknown Completed [facility] DTAP Unknown Completed [facility] DTAP Unknown Completed [facility] DTAP Unknown Completed [facility] DTAP Unknown Completed [facility] HIB 4 Dose Schedule Unknown Completed Unive [facility] HIB 4 Dose Schedule Unknown Completed Unive [facility] HIB 4 Dose Schedule Unknown Completed Unive [facility] HIB 4 Dose Schedule Unknown Com[facility] A [facility] Completed [facility] HEPATITIS A Unknown Completed [facility] Hep B, Adol or Pedi Unknown Completed Unive rsity [facility] Hep B, Adol or Pedi Unknown Completed Unive rsity of [facility] Hep B, Adol or Pedi Unknown [facility] Mening[facility] Completed [facility] MMR Unknown Completed [facility] MMR Unknown Completed [facility] Pneumococcal 7 Unknown Completed [facility] Conjugate, PCV7 [facility] (Prevnar7) Branch Pneumococcal 7 Unknown Completed [facility] Conjugate, PCV7 [facility] (Prevnar7) Branch Pneumococcal 7 Unknown Completed [facility] Conjugate, PCV7 [facility] (Prevnar7) Branch Polio (IPV/OPV) Unknown Completed [facility] Polio (IPV/OPV) Unknown Completed [facility] Polio (IPV/OPV) Unknown Completed [facility] Polio (IPV/OPV) Unknown Completed [facility] TDAP Unknown Completed [facility] Varicella Unknown Completed University (varivax)(chicken [place] [facility] pox) Branch HPV Unknown Completed [facility] Influenza Virus Unknown Completed Universit y of Vaccine (3+ yrs) [facility] dical Branch HPV Unknown Completed [facility] HPV Unknown Completed [facility] Influenza Virus Unknown Completed Universit y of Vaccine Quad .5 mL [facility] 6+ [place] Branch (FLUZONE/FLULAVAL/F LUARIX) Vital Signs Vital Name Observation Time Observation Value Comments Source Heart rate 2023-01-12 03:07:00 110 /min [facility] Respiratory rate 2023-01-12 03:07:00 18 /min [facility] Oxygen saturation in 2023-01-12 03:07:00 100 /min University Arterial blood by [facility] Pulse oximetry Branch Systolic blood 2023-01-12 01:08:00 144 mm[Hg] Univer sity of pressure [facility] Diastolic blood 2023-01-12 01:08:00 96 mm[Hg] Unive rsity of pressure [facility] Body temperature 2023-01-12 01:08:00 37 Bita Univ ersity of [facility] Body height 2023-01-12 01:08:00 152.4 cm Universi ty of [facility] Body weight 2023-01-12 01:08:00 63.504 kg Universi ty of [facility] BMI 2023-01-12 01:08:00 27.34 kg/m2 Universi ty of [facility] height 2023-01-06 16:00:00 60 [in_i] [facility] weight 2023-01-06 16:00:00 152 [lb_av] [facility] bmi 2023-01-06 16:00:00 29.68 kg/m2 [facility] Systolic blood 2022-12-25 15:22:00 133 mm[Hg] Univer sity of [facility] Diastolic blood 2022-12-25 15:22:00 85 mm[Hg] Unive rsity of [facility] Heart rate 2022-12-25 15:22:00 64 /min Universi ty of [facility] Body temperature 2022-12-25 15:22:00 36.83 Bita Univ ersity of [facility] Respiratory rate 2022-12-25 15:22:00 18 /min Univ ersity of [facility] Body height 2022-12-25 15:22:00 152.4 cm Universi ty of [facility] Body weight 2022-12-25 15:22:00 67.132 kg Universi ty of [facility] BMI 2022-12-25 15:22:00 28.90 kg/m2 Universi ty of [facility] height 2022-11-28 08:30:00 60 [in_i] [facility] weight 2022-11-28 08:30:00 152.7 [lb_av] Common [facility] temperature 2022-11-28 08:30:00 97.5 [degF] Common [facility] bmi 2022-11-28 08:30:00 29.82 kg/m2 [facility] oximetry 2022-11-28 08:30:00 97 % [facility] respiratory rate 2022-11-28 08:30:00 17 /min Comm on [facility] blood pressure 2022-11-28 08:30:00 121 mm[Hg] Common [facility] - systolic [facility] blood pressure 2022-11-28 08:30:00 76 mm[Hg] Common [facility] diastolic [facility] height 2022-11-21 14:20:00 60 [in_i] [facility] weight 2022-11-21 14:20:00 157 [lb_av] [facility] bmi 2022-11-21 14:20:00 30.66 kg/m2 [facility] height 2022-11-05 16:00:00 60 [in_i] [facility] weight 2022-11-05 16:00:00 157 [lb_av] [facility] temperature 2022-11-05 16:00:00 98.4 [degF] Common [facility] bmi 2022-11-05 16:00:00 30.66 kg/m2 [facility] oximetry 2022-11-05 16:00:00 98 % [facility] respiratory rate 2022-11-05 16:00:00 17 /min Comm on [facility] blood pressure 2022-11-05 16:00:00 119 mm[Hg] Common [facility] systolic [facility] blood pressure 2022-11-05 16:00:00 83 mm[Hg] Common [facility] - diastolic [facility] Systolic blood 2022-11-04 14:15:00 144 mm[Hg] Univer sity of pressure [place] [facility] Diastolic blood 2022-11-04 14:15:00 97 mm[Hg] Unive rsity of pressure [facility] [place] [facility] Heart rate 2022-11-04 14:15:00 118 /min Universi ty of [place] [facility] Body temperature 2022-11-04 14:15:00 37.61 Bita Univ ersity of [place] [facility] Respiratory rate 2022-11-04 14:15:00 20 /min Univ ersity of [place] [facility] Body weight 2022-11-04 14:15:00 70.308 kg Universi ty of [place] [facility] BMI 2022-11-04 14:15:00 30.27 kg/m2 Universi ty of [place] [facility] Oxygen saturation in 2022-11-04 14:15:00 100 /min University of Arterial blood by [facility] Pulse oximetry Branch Systolic blood 2022-10-27 21:28:00 110 mm[Hg] Univer sity of pressure [place] [facility] Diastolic blood 2022-10-27 21:28:00 73 mm[Hg] Unive rsity of pressure [facility] [place] [facility] Heart rate 2022-10-27 21:28:00 102 /min Universi ty of [place] [facility] Body temperature 2022-10-27 21:28:00 36.72 Bita Univ ersity of [place] [facility] Respiratory rate 2022-10-27 21:28:00 17 /min Univ ersity of [place] [facility] Body height 2022-10-27 21:28:00 152.4 cm Universi ty of [place] [facility] Body weight 2022-10-27 21:28:00 72.757 kg Universi ty of [place] [facility] BMI 2022-10-27 21:28:00 31.33 kg/m2 Universi ty of [place] [facility] Systolic blood 2022-10-21 19:24:00 119 mm[Hg] Univer sity of pressure [facility] [place] [facility] Diastolic blood 2022-10-21 19:24:00 76 mm[Hg] Unive rsity of pressure [place] [facility] Heart rate 2022-10-21 19:24:00 101 /min Universi ty of [place] [facility] Body temperature 2022-10-21 19:24:00 36.67 Bita Univ ersity of [place] [facility] Body height 2022-10-21 19:24:00 152.4 cm Universi ty of [place] [facility] Body weight 2022-10-21 19:24:00 72.122 kg Universi ty of [place] [facility] BMI 2022-10-21 19:24:00 31.05 kg/m2 Universi ty of [facility] Systolic blood 2022-09-24 17:46:00 111 mm[Hg] Univer sity of pressure [place] [facility] Diastolic blood 2022-09-24 17:46:00 74 mm[Hg] Unive rsity of pressure [place] [facility] Heart rate 2022-09-24 17:46:00 87 /min Universi ty of [facility] Body temperature 2022-09-24 17:46:00 36.83 Bita Univ ersity of [facility] Respiratory rate 2022-09-24 17:46:00 18 /min Univ ersity of [facility] Body height 2022-09-24 17:46:00 152.4 cm Universi ty of [facility] Body weight 2022-09-24 17:46:00 73.211 kg Universi ty of [place] [facility] BMI 2022-09-24 17:46:00 31.52 kg/m2 Universi ty of [facility] Systolic blood 2022-09-09 18:30:00 112 mm[Hg] Univer sity of pressure [place] [facility] Diastolic blood 2022-09-09 18:30:00 74 mm[Hg] Unive rsity of pressure [facility] Heart rate 2022-09-09 12:30:00 70 /min Universi ty of [facility] Body temperature 2022-09-09 12:30:00 36.11 Bita Univ ersity of [facility] Branch Respiratory rate 2022-09-09 12:30:00 18 /min Univ ersity of [facility] Oxygen saturation in 2022-09-09 12:30:00 99 /min University of Arterial blood by [facility] Pulse oximetry Branch Body height 2022-09-08 09:30:00 152.4 cm 5' Universi ty of [place] [facility] Body weight 2022-09-08 09:30:00 81.738 kg 180.2lb Universi ty of [facility] BMI 2022-09-08 09:30:00 35.19 kg/m2 Universi ty of [place] [facility] Systolic blood 2022-09-05 09:15:00 125 mm[Hg] Univer sity of pressure [place] [facility] Diastolic blood 2022-09-05 09:15:00 77 mm[Hg] Unive rsity of pressure [place] [facility] Heart rate 2022-09-05 09:15:00 77 /min Universi ty of [place] [facility] Body temperature 2022-09-05 09:15:00 37 Bita Univ ersity of [place] [facility] Respiratory rate 2022-09-05 09:15:00 16 /min Univ ersity of [place] [facility] Oxygen saturation in 2022-09-05 09:15:00 99 /min University of Arterial blood by [place] [employer] [facility] Pulse oximetry Branch Body height 2022-09-05 07:19:00 152.4 cm Universi ty of [place] [facility] Body weight 2022-09-05 07:19:00 83.144 kg 183.3lb Universi ty of [place] [facility] BMI 2022-09-05 07:19:00 35.80 kg/m2 Universi ty of [place] [facility] Systolic blood 2022-09-03 16:36:00 112 mm[Hg] Univer sity of pressure [place] [facility] Diastolic blood 2022-09-03 16:36:00 71 mm[Hg] Unive rsity of pressure [place] [facility] Heart rate 2022-09-03 16:36:00 90 /min Universi ty of [place] [facility] Body temperature 2022-09-03 16:36:00 36.83 Bita Univ ersity of [place] [facility] Respiratory rate 2022-09-03 16:36:00 18 /min Univ ersity of [place] [facility] Body height 2022-09-03 16:36:00 152.4 cm Universi ty [facility] [place] [facility] Body weight 2022-09-03 16:36:00 82.101 kg Universi ty [facility] [place] [facility] BMI 2022-09-03 16:36:00 35.35 kg/m2 Universi ty [facility] [place] [facility] Heart rate 2022-09-02 05:45:00 70 /min Universi ty of [place] [facility] Oxygen saturation in 2022-09-02 05:45:00 99 /min University of Arterial blood by [employer] Pulse oximetry Branch Systolic blood 2022-09-02 04:39:00 133 mm[Hg] Univer sity of pressure [place] [facility] Diastolic blood 2022-09-02 04:39:00 80 mm[Hg] Unive rsity of pressure [facility] [place] [facility] Body temperature 2022-09-02 04:39:00 36.61 Bita Univ ersity of [place] [facility] Respiratory rate 2022-09-02 04:39:00 18 /min Univ ersity of [place] [facility] Body height 2022-09-02 04:39:00 152.4 cm Universi ty of [place] [facility] Body weight 2022-09-02 04:39:00 82.736 kg Universi ty of [place] [facility] BMI 2022-09-02 04:39:00 35.62 kg/m2 Universi ty of [place] [facility] Systolic blood 2022-08-26 20:38:00 111 mm[Hg] Univer sity of pressure [facility] [place] [facility] Diastolic blood 2022-08-26 20:38:00 74 mm[Hg] Unive rsity of pressure [facility] [place] [facility] Heart rate 2022-08-26 20:38:00 95 /min Universi ty of [place] [facility] Body temperature 2022-08-26 20:38:00 36.72 Bita Univ ersity of [place] [facility] Respiratory rate 2022-08-26 20:38:00 18 /min Univ ersity of [place] [facility] Body height 2022-08-26 20:38:00 152.4 cm Universi ty of [place] [facility] Body weight 2022-08-26 20:38:00 82.192 kg Universi ty of [place] [facility] BMI 2022-08-26 20:38:00 35.39 kg/m2 Universi ty of [place] [facility] Systolic blood 2022-08-12 18:43:00 115 mm[Hg] Univer sity of pressure [place] [facility] Diastolic blood 2022-08-12 18:43:00 72 mm[Hg] Unive rsity of pressure [facility] [place] [facility] Heart rate 2022-08-12 18:43:00 93 /min Universi ty of [place] [facility] Body temperature 2022-08-12 18:43:00 36.83 Bita Univ ersity of [place] [facility] Body height 2022-08-12 18:43:00 152.4 cm Universi ty of [place] [facility] Body weight 2022-08-12 18:43:00 81.012 kg [facility]i ty of [place] [facility] BMI 2022-08-12 18:43:00 34.88 kg/m2 Universi ty of [place] [facility] Heart rate 2022-08-06 23:30:00 90 /min Universi ty of [facility] Oxygen saturation in 2022-08-06 23:30:00 99 /min University Arterial blood by [facility] Pulse oximetry Branch Systolic blood 2022-08-06 22:40:00 116 mm[Hg] Univer sity of pressure [place] [facility] Diastolic blood 2022-08-06 22:40:00 63 mm[Hg] Unive rsity of pressure [facility] Body temperature 2022-08-06 22:40:00 37 Bita Univ ersity of [facility] Respiratory rate 2022-08-06 22:40:00 18 /min Univ ersity of [facility] Body height 2022-08-06 22:40:00 152.4 cm [facility] ty of [place] [facility] Body weight 2022-08-06 22:40:00 81.466 kg [facility] [place] [facility] BMI 2022-08-06 22:40:00 35.08 kg/m2 [facility] ty [facility] [place] [facility] Systolic blood 2022-07-29 18:20:00 115 mm[Hg] Univer sity of [facility] Diastolic blood 2022-07-29 18:20:00 73 mm[Hg] Unive rsity of [facility] Heart rate 2022-07-29 18:20:00 80 /min [facility]i ty of [place] [facility] Body temperature 2022-07-29 18:20:00 36.94 Bita Univ ersity of [facility] Respiratory rate 2022-07-29 18:20:00 18 /min Univ ersity of [facility] Body height 2022-07-29 18:20:00 152.4 cm Universi ty of [facility] [place] [facility] Body weight 2022-07-29 18:20:00 81.375 kg [facility]i ty of [place] [facility] BMI 2022-07-29 18:20:00 35.04 kg/m2 [facility]i ty of [place] [facility] height 2022-07-14 14:00:00 60 [in_i] [facility] weight 2022-07-14 14:00:00 169 [lb_av] [facility] bmi 2022-07-14 14:00:00 33 kg/m2 Common S [facility] Systolic blood 2022-07-08 19:47:00 113 mm[Hg] Univer sity of pressure [facility] [place] [facility] Diastolic blood 2022-07-08 19:47:00 75 mm[Hg] Unive rsity of pressure [facility] Heart rate 2022-07-08 19:47:00 88 /min Universi ty of [facility] Body temperature 2022-07-08 19:47:00 36.72 Bita Univ ersity of [facility] Respiratory rate 2022-07-08 19:47:00 18 /min Univ ersity of [facility] Body height 2022-07-08 19:47:00 152.4 cm Universi ty of [facility] [place] [facility] Body weight 2022-07-08 19:47:00 80.74 kg Universi ty of [facility] BMI 2022-07-08 19:47:00 34.76 kg/m2 Universi ty of [facility] [place] [facility] Systolic blood 2022-07-01 18:20:00 108 mm[Hg] Univer sity of pressure [facility] [place] [facility] Diastolic blood 2022-07-01 18:20:00 71 mm[Hg] Unive rsity of pressure [facility] [place] [facility] Heart rate 2022-07-01 18:20:00 91 /min Universi ty of [place] [facility] Body temperature 2022-07-01 18:20:00 37 Bita Univ ersity of [facility] Respiratory rate 2022-07-01 18:20:00 18 /min Univ ersity of [facility] Body height 2022-07-01 18:20:00 152.4 cm Universi ty of [facility] [place] [facility] Body weight 2022-07-01 18:20:00 80.457 kg Universi ty of [place] [facility] BMI 2022-07-01 18:20:00 34.64 kg/m2 Universi ty of [place] [facility] Systolic blood 2022-06-23 15:15:00 109 mm[Hg] Univer sity of pressure [facility] Diastolic blood 2022-06-23 15:15:00 70 mm[Hg] Unive rsity of pressure [facility] Heart rate 2022-06-23 15:15:00 98 /min Universi ty of [place] [facility] Body temperature 2022-06-23 15:15:00 36.61 Bita Univ ersity of [facility] Respiratory rate 2022-06-23 15:15:00 18 /min Univ ersity of [facility] Body height 2022-06-23 15:15:00 152.4 cm Universi ty of [facility] Body weight 2022-06-23 15:15:00 79.652 kg Universi ty of [facility] BMI 2022-06-23 15:15:00 34.29 kg/m2 Universi ty of [facility] Body temperature 2022-06-12 09:24:00 36.78 Bita Univ ersity of [facility] Systolic blood 2022-06-12 08:16:00 121 mm[Hg] Univer sity of [facility] Diastolic blood 2022-06-12 08:16:00 73 mm[Hg] Unive rsity of [facility] Heart rate 2022-06-12 08:16:00 135 /min Universi ty of [facility] Respiratory rate 2022-06-12 08:16:00 20 /min Univ ersity of [facility] Body weight 2022-06-12 08:16:00 77.111 kg Universi ty of [facility] BMI 2022-06-12 08:16:00 33.20 kg/m2 Universi ty of [facility] Oxygen saturation in 2022-06-12 08:16:00 99 /min [facility] Arterial blood by [facility] Pulse oximetry Branch height 2022-06-12 09:20:00 60 [in_i] Common [facility] weight 2022-06-12 09:20:00 169 [lb_av] Common [facility] bmi 2022-06-12 09:20:00 33 kg/m2 Common [facility] Systolic blood 2022-05-13 18:10:00 118 mm[Hg] Univer sity of [facility] Diastolic blood 2022-05-13 18:10:00 73 mm[Hg] Unive rsity of [facility] Heart rate 2022-05-13 18:10:00 88 /min Universi ty of [facility] Body temperature 2022-05-13 18:10:00 36.56 Bita Univ ersity of [facility] Body height 2022-05-13 18:10:00 152.4 cm [facility]i ty [facility] Body weight 2022-05-13 18:10:00 78.654 kg [facility]i ty of [facility] BMI 2022-05-13 18:10:00 33.86 kg/m2 [facility]i ty [facility] Systolic blood 2022-04-24 18:08:00 113 mm[Hg] Univer sity of pressure [facility] Diastolic blood 2022-04-24 18:08:00 69 mm[Hg] Unive rsity of pressure [facility] Heart rate 2022-04-24 18:08:00 88 /min Universi ty of [facility] Body temperature 2022-04-24 18:08:00 36.78 Bita Univ ersity of [facility] Body height 2022-04-24 18:08:00 152.4 cm [facility]i ty [facility] Body weight 2022-04-24 18:08:00 77.565 kg [facility]i ty [facility] BMI 2022-04-24 18:08:00 33.40 kg/m2 [facility] Systolic blood 2022-04-17 16:16:00 119 mm[Hg] [facility] Diastolic blood 2022-04-17 16:16:00 79 mm[Hg] [facility] Heart rate 2022-04-17 16:16:00 89 /min [facility] Body temperature 2022-04-17 16:16:00 37.11 Bita [facility] Respiratory rate 2022-04-17 16:16:00 18 /min [facility] Body height 2022-04-17 16:16:00 152.4 cm [facility] Body weight 2022-04-17 16:16:00 76.658 kg [facility] BMI 2022-04-17 16:16:00 33.01 kg/m2 [facility] height 2022-04-10 16:40:00 60 [in_i] Common S [facility] weight 2022-04-10 16:40:00 168.2 [lb_av] Common [facility] temperature 2022-04-10 16:40:00 98.1 [degF] Common [facility] bmi 2022-04-10 16:40:00 32.85 kg/m2 Common S [facility] oximetry 2022-04-10 16:40:00 100 % Common S [facility] respiratory rate 2022-04-10 16:40:00 18 /min Comm on [facility] blood pressure 2022-04-10 16:40:00 114 mm[Hg] Common [facility] - systolic [facility] blood pressure 2022-04-10 16:40:00 76 mm[Hg] Common [facility] - diastolic [facility] Systolic blood 2022-03-20 16:25:00 113 mm[Hg] [facility] Diastolic blood 2022-03-20 16:25:00 75 mm[Hg] Unive rsity of [facility] Heart rate 2022-03-20 16:25:00 71 /min Universi ty [facility] Body temperature 2022-03-20 16:25:00 36.61 Bita [facility] height 2022-03-20 16:25:00 152.4 cm [facility] Body weight 2022-03-20 16:25:00 75.025 kg [facility] BMI 2022-03-20 16:25:00 32.30 kg/m2 [facility] Systolic blood 2022-02-18 15:41:00 123 mm[Hg] [facility] Diastolic blood 2022-02-18 15:41:00 80 mm[Hg] [facility]ity [facility] pressure [facility] Heart rate 2022-02-18 15:41:00 83 /min [facility] Body temperature 2022-02-18 15:41:00 36.89 Bita [facility] Respiratory rate 2022-02-18 15:41:00 18 /[facility] Body height 2022-02-18 15:41:00 152.4 cm [facility] Body weight 2022-02-18 15:41:00 73.029 kg [facility] BMI 2022-02-18 15:41:00 31.44 kg/m2 [facility] height 2022-01-13 14:20:00 60 [in_i] [facility] weight 2022-01-13 14:20:00 161 [lb_av] Common [facility] temperature 2022-01-13 14:20:00 97.1 [degF] Common [facility] bmi 2022-01-13 14:20:00 31.44 kg/m2 [facility] oximetry 2022-01-13 14:20:00 98 % [facility] respiratory rate 2022-01-13 14:20:00 20 /min Comm on [facility] blood pressure 2022-01-13 14:20:00 118 mm[Hg] Common [facility] - systolic [facility] blood pressure 2022-01-13 14:20:00 74 mm[Hg] Common [facility] diastolic [facility] height 2021-12-25 16:00:00 60 [in_i] [facility] weight 2021-12-25 16:00:00 168.6 [lb_av] [facility] bmi 2021-12-25 16:00:00 32.92 kg/m2 [facility] height 2021-12-13 13:00:00 60 [in_i] Common [facility] weight 2021-12-13 13:00:00 168.6 [lb_av] [facility] temperature 2021-12-13 13:00:00 98.1 [degF] Common [facility] bmi 2021-12-13 13:00:00 32.92 kg/m2 [facility] oximetry 2021-12-13 13:00:00 99 % Common [facility] respiratory rate 2021-12-13 13:00:00 17 /min Comm on [facility] blood pressure 2021-12-13 13:00:00 129 mm[Hg] [facility] blood pressure 2021-12-13 13:00:00 82 mm[Hg] [facility] height 2021-11-12 14:20:00 60 [in_i] Common S [facility] weight 2021-11-12 14:20:00 162 [lb_av] [facility]mi 2021-11-12 14:20:00 31.64 kg/m2 [facility] height 2021-10-15 11:40:00 60 [in_i] [facility] weight 2021-10-15 11:40:00 162 [lb_av] [facility] bmi 2021-10-15 11:40:00 31.64 kg/m2 Common [facility] height 2021-09-02 11:40:00 60 [in_i] Common [facility] weight 2021-09-02 11:40:00 162 [lb_av] [facility] bmi 2021-09-02 11:40:00 31.64 kg/m2 [facility] Systolic blood 2021-06-27 16:11:00 114 mm[Hg] Univer sity of [facility] Diastolic blood 2021-06-27 16:11:00 78 mm[Hg] Unive rsity of [facility] Heart rate 2021-06-27 16:11:00 68 /min [facility] Body temperature 2021-06-27 16:11:00 36.78 Bita [facility] Res[facility] rate 2021-06-27 16:11:00 18 /min [facility] Body height 2021-06-27 16:11:00 152.4 cm [facility] Body weight 2021-06-27 16:11:00 79.379 kg [facility] BMI 2021-06-27 16:11:00 34.18 kg/m2 [facility] height 2021-04-23 16:10:00 60 [in_i] [facility] weight 2021-04-23 16:10:00 162 [lb_av] [facility] temperature 2021-04-23 16:10:00 98 [degF] [facility] bmi 2021-04-23 16:10:00 31.64 kg/m2 [facility] Systolic blood 2021-02-21 06:04:00 123 mm[Hg] Univer [facility]ity of [facility] Diastolic blood 2021-02-21 06:04:00 65 mm[Hg] Unive rsity of [facility] Heart rate 2021-02-21 06:04:00 80 /min [facility] Respiratory rate 2021-02-21 06:04:00 22 /min Univ [facility] Oxygen saturation in 2021-02-21 06:04:00 99 /min [facility] Arterial blood by [facility] Pulse oximetry [place] Body temperature 2021-02-21 01:29:00 37.28 Bita [facility] Body height 2021-02-21 01:29:00 162.6 cm [facility] Body weight 2021-02-21 01:29:00 75.751 kg [facility] BMI 2021-02-21 01:29:00 28.67 kg/m2 [facility] Systolic blood 2020-09-18 17:10:00 117 mm[Hg] [facility] Diastolic blood 2020-09-18 17:10:00 78 mm[Hg] [facility] pressure [facility] Heart rate 2020-09-18 17:10:00 80 /min [facility] Respiratory rate 2020-09-18 17:10:00 18 /min Univ [facility] Body height 2020-09-18 17:10:00 152.4 cm [facility] Body weight 2020-09-18 17:10:00 78.109 kg [facility] BMI 2020-09-18 17:10:00 33.63 kg/m2 [facility] Systolic blood 2020-06-20 21:05:00 102 mm[Hg] [facility] Diastolic blood 2020-06-20 21:05:00 71 mm[Hg] [facility] pressure [facility] Heart rate 2020-06-20 21:05:00 66 /min [facility] Body temperature 2020-06-20 21:05:00 36.78 Bita [facility] Respiratory rate 2020-06-20 21:05:00 18 /min [facility] Body height 2020-06-20 21:05:00 152.4 cm [facility] Body weight 2020-06-20 21:05:00 77.565 kg [facility] BMI 2020-06-20 21:05:00 33.40 kg/m2 [facility] Systolic blood 2020-03-21 18:00:00 117 mm[Hg] [facility] Diastolic blood 2020-03-21 18:00:00 78 mm[Hg] [facility] Heart rate 2020-03-21 18:00:00 89 /min [facility] Body temperature 2020-03-21 18:00:00 37 Bita [facility] Respiratory rate 2020-03-21 18:00:00 18 /min [facility] Oxygen saturation in 2020-03-21 18:00:00 100 /min [facility] Arterial blood by [facility] Pulse oximetry Branch Body height 2020-03-19 17:41:00 152.4 cm [facility] Body weight 2020-03-19 17:41:00 82.373 kg [facility] BMI 2020-03-19 17:41:00 35.47 kg/m2 [facility] Systolic blood 2020-03-12 22:13:00 122 mm[Hg] [facility] Diastolic blood 2020-03-12 22:13:00 68 mm[Hg] [facility] Heart rate 2020-03-12 22:13:00 95 /min [facility] Body temperature 2020-03-12 22:13:00 36.67 Bita [facility] Respiratory rate 2020-03-12 22:13:00 18 /min Univ [facility] Body height 2020-03-12 22:13:00 157.5 cm [facility] Body weight 2020-03-12 22:13:00 82.192 kg [facility] BMI 2020-03-12 22:13:00 33.14 kg/m2 [facility] Oxygen saturation in 2020-03-12 22:13:00 98 /min University Arterial blood by [facility] Pulse oximetry Branch Systolic blood 2020-02-27 20:43:00 112 mm[Hg] [facility] Diastolic blood 2020-02-27 20:43:00 71 mm[Hg] [facility]ive rs[facility] of pressure [facility] Heart rate 2020-02-27 20:43:00 96 /min [facility] Body temperature 2020-02-27 20:43:00 36.89 Bita [facility] Respiratory rate 2020-02-27 20:43:00 18 /min Univ [facility] Body height 2020-02-27 20:43:00 157.5 cm [facility] Body weight 2020-02-27 20:43:00 80.74 kg [facility] BMI 2020-02-27 20:43:00 32.56 kg/m2 [facility] Systolic blood 2020-02-06 20:27:00 114 mm[Hg] [facility]ity [facility] Diastolic blood 2020-02-06 20:27:00 68 mm[Hg] Unive [facility]ity of pressure [facility] Heart rate 2020-02-06 20:27:00 101 /min [facility] Body temperature 2020-02-06 20:27:00 36.5 Bita [facility] Respiratory rate 2020-02-06 20:27:00 18 /min Univ [facility] Body height 2020-02-06 20:27:00 152.4 cm [facility] Body weight 2020-02-06 20:27:00 79.379 kg [facility] BMI 2020-02-06 20:27:00 34.18 kg/m2 [facility] Systolic blood 2020-02-02 20:28:00 111 mm[Hg] [facility] Diastolic blood 2020-02-02 20:28:00 68 mm[Hg] [facility] Heart rate 2020-02-02 20:28:00 93 /min [facility] Body temperature 2020-02-02 20:28:00 36.94 Bita [facility] Respiratory rate 2020-02-02 20:28:00 18 /min Univ [facility] Body height 2020-02-02 20:28:00 157.5 cm [facility] Body weight 2020-02-02 20:28:00 78.472 kg [facility] BMI 2020-02-02 20:28:00 31.64 kg/m2 [facility] Systolic blood 2020-01-29 11:01:00 116 mm[Hg] [facility] Diastolic blood 2020-01-29 11:01:00 68 mm[Hg] [facility] Heart rate 2020-01-29 11:01:00 113 /min [facility] Respiratory rate 2020-01-29 11:01:00 18 /min Univ [facility] Body height 2020-01-29 11:01:00 152.4 cm [facility] Body weight 2020-01-29 11:01:00 79.379 kg [facility] BMI 2020-01-29 11:01:00 34.18 kg/m2 [facility] Oxygen saturation in 2020-01-29 11:01:00 98 /min [facility] Arterial blood by [facility] Pulse oximetry Branch Systolic blood 2020-01-24 19:08:00 107 mm[Hg] [facility] Diastolic blood 2020-01-24 19:08:00 67 mm[Hg] [facility]ive [facility] Heart rate 2020-01-24 19:08:00 95 /min [facility] Body temperature 2020-01-24 19:08:00 36.72 Bita [facility] Respiratory rate 2020-01-24 19:08:00 18 /min Univ [facility] Body height 2020-01-24 19:08:00 157.5 cm [facility] Body weight 2020-01-24 19:08:00 78.2 kg [facility] BMI 2020-01-24 19:08:00 31.53 kg/m2 [facility] Systolic blood 2020-01-20 16:30:00 110 mm[Hg] [facility] Diastolic blood 2020-01-20 16:30:00 66 mm[Hg] [facility]ive [facility] of pressure [facility] Heart rate 2020-01-20 16:30:00 94 /min [facility] Body temperature 2020-01-20 16:30:00 36.67 Bita [facility] Respiratory rate 2020-01-20 16:30:00 16 /min [facility] Body height 2020-01-20 16:30:00 152.4 cm [facility] Body weight 2020-01-20 16:30:00 76.839 kg [facility] BMI 2020-01-20 16:30:00 33.08 kg/m2 [facility] Systolic blood 2020-01-18 20:00:00 108 mm[Hg] [facility] Diastolic blood 2020-01-18 20:00:00 55 mm[Hg] Unive rsity of pressure [facility] Heart rate 2020-01-18 20:00:00 107 /min [facility] Respiratory rate 2020-01-18 20:00:00 18 /min Univ [facility] Oxygen saturation in 2020-01-18 20:00:00 98 /min University Arterial blood by [facility] Pulse oximetry Branch Body temperature 2020-01-18 18:00:00 36.56 Bita [facility] Body height 2020-01-18 00:55:00 157.5 cm [facility] Body weight 2020-01-18 00:55:00 77.111 kg [facility] BMI 2020-01-18 00:55:00 31.09 kg/m2 [facility] Systolic blood 2020-01-10 00:00:00 120 mm[Hg] [facility] Diastolic blood 2020-01-10 00:00:00 73 mm[Hg] Unive [facility]ity of [facility] Heart rate 2020-01-10 00:00:00 89 /min [facility] Body temperature 2020-01-09 23:20:00 36.67 Bita [facility] Respiratory rate 2020-01-09 23:20:00 16 /min Univ [facility] Body height 2020-01-09 23:20:00 157.5 cm [facility] Body weight 2020-01-09 23:20:00 77.565 kg [facility] BMI 2020-01-09 23:20:00 31.28 kg/m2 [facility] Oxygen saturation in 2020-01-09 23:20:00 98 /min University of Arterial blood by [facility] Pulse oximetry Branch Systolic blood 2020-01-09 22:17:00 110 mm[Hg] Univer [facility]ity of [facility] Diastolic blood 2020-01-09 22:17:00 74 mm[Hg] Unive rsity of pressure [facility] Heart rate 2020-01-09 22:17:00 93 /min [facility] Body temperature 2020-01-09 22:17:00 36.78 Bita [facility] Respiratory rate 2020-01-09 22:17:00 18 /min Univ [facility] Body height 2020-01-09 22:17:00 157.5 cm [facility] Body weight 2020-01-09 22:17:00 77.565 kg [facility] BMI 2020-01-09 22:17:00 31.28 kg/m2 [facility] Systolic blood 2019-12-19 22:44:00 111 mm[Hg] Univer [facility]ity of [facility] Diastolic blood 2019-12-19 22:44:00 73 mm[Hg] [facility] Heart rate 2019-12-19 22:44:00 88 /min [facility] Body temperature 2019-12-19 22:44:00 37.06 Bita [facility] ersity of [facility] Respiratory rate 2019-12-19 22:44:00 18 /min Univ [facility]ity of [facility] Body height 2019-12-19 22:44:00 157.5 cm [facility] Body weight 2019-12-19 22:44:00 76.204 kg [facility] BMI 2019-12-19 22:44:00 30.73 kg/m2 [facility] Systolic blood 2019-07-29 20:33:00 113 mm[Hg] Univer [facility]ity [facility] pressure [facility] Diastolic blood 2019-07-29 20:33:00 77 mm[Hg] Unive rsity of pressure [facility] Heart rate 2019-07-29 20:33:00 83 /min [facility] Body temperature 2019-07-29 20:33:00 36.72 Bita [facility] ersity of [facility] Respiratory rate 2019-07-29 20:33:00 18 /min Univ [facility] Body height 2019-07-29 20:33:00 152.4 cm [facility] Body weight 2019-07-29 20:33:00 73.483 kg [facility] BMI 2019-07-29 20:33:00 31.64 kg/m2 [facility] Procedures Procedure Date / Time Performing Clinician Source Performed POCT TEST 2023-01-12 01:47:00 Erin Brewster [facility] URINALYSIS 2023-01-12 01:41:00 Erin Brewster [place] [facility] CONSENT/REFUSAL FOR 2023-01-12 00:52:59 Doctor UnassignedElenita [facility] DIAGNOSIS AND TREATMENT [place] [facility] POCT TEST 2022-11-04 14:27:00 So Kahn [facility] RAPID INFLUENZA A/B 2022-11-04 14:25:00 [facility] CONSENT/REFUSAL FOR 2022-11-04 14:11:11 Doctor UnaElenita luke [facility] DIAGNOSIS AND TREATMENT [facility] POCT TEST 2022-10-27 21:29:00 Gustabo Brock [facility] SURGICAL APPLIANCES [facility] ULTRASOUND 2022-10-27 06:01:00 Doctor Miriam, [facility] [place] [facility] CBC WITH DIFF 2022-09-09 09:28:00 Gustabo Brock [place] [facility] CENTRAL NEURAXIAL BLOCK 2022-09-08 17:25:46 Dayton Ferris [facility] CBC WITH DIFF 2022-09-08 10:03:00 Gustabo Brock [place] [facility] HEPATITIS B SURFACE 2022-09-08 10:03:00 Gustabo Brock [facility] ANTIGEN [facility] ADC OR JOSUE ONLY - RPR 2022-09-08 10:03:00 Gustabo Brock [facility] HIV 1/2 AG-AB WITH REFLEX 2022-09-08 10:03:00 Gustabo Brock [facility] HB ABO GROUPING 2022-09-08 09:55:00 Gustabo Brock [place] [facility] RHO (D) IMMUNE GLOBULIN 2022-09-08 09:55:00 Gustabo Brock [facility] CONSENT/REFUSAL FOR 2022-09-05 06:44:04 Doctor Miriam [facility] DIAGNOSIS AND TREATMENT [facility] POCT URINALYSIS W/O 2022-09-03 00:00:00 Gustabo Brock [facility] SPECIFIC GRAVITY [facility] ADC ONLY - FERN TEST 2022-09-02 05:16:00 Gustabo Brock [facility] NOTICE OF PRIVACY 2022-09-02 04:21:36 Doctor Miriam, [facility] PRACTICES [place] >14 WEEKS US 2022-08-26 21:14:28 Gustabo Brock [facility] DSU PRE-OP 2022-08-26 05:01:00 Doctor Miriam, [facility] [place] [facility] POCT URINALYSIS W/O 2022-08-26 00:00:00 Gustabo Brock [facility] SPECIFIC GRAVITY Medical Branch POCT URINALYSIS W/O 2022-08-12 00:00:00 Gustabo Brock [facility] [place] [facility] POCT URINALYSIS W/O 2022-07-29 18:32:00 [facility] [place] [facility] POCT URINALYSIS W/O 2022-07-08 00:00:00 BrockLadanperlita Kaur [facility] [place] [facility]CIFIC [facility] POCT URINALYSIS W/O 2022-06-23 00:00:00 BrockLadanen Vincent [facility] [place] [facility]CIFIC [facility]RAVITY [facility] RAPID STREP SCREEN FOR 2022-06-12 08:23:00 [facility] COVID-19 (ID NOW RAPID 2022-06-12 08:23:00 Vandana Narayanan Un [facility] TESTING) Medical Branch NOTICE OF PRIVACY 2022-06-12 08:01:55 Doctor Miriam, [facility] PRACTICES [place] [facility] CONSENT/REFUSAL FOR 2022-06-12 08:00:12 Doctor Miriam [facility] DIAGNOSIS AND TREATMENT [place] [facility] POCT URINALYSIS W/O 2022-04-24 00:00:00 [facility] SPECIFIC GRAVITY Medical Branch POCT URINALYSIS W/O 2022-04-17 00:00:00 Gust[facility] SPECIFIC GRAVITY Medical Branch INSURANCE CORRESPONDENCE 2022-03-20 05:01:00 Doctor Miriam, [facility] [place] [facility] POCT URINALYSIS W/O 2022-03-20 00:00:00 Gustabo Brock [facility] [place] SPECIFIC GRAVITY Medical Branch <14 WEEKS US 2022-02-18 16:26:52 Gustabo Brock [facility] LIMITED Medical Branch CONSENT/REFUSAL FOR 2022-02-18 15:12:57 Doctor Miriam [facility] DIAGNOSIS AND TREATMENT [place] [facility] ASSIGNMENT OF BENEFITS 2022-02-18 15:12:44 Doctor Unamarly, [facility] [place] [facility] POCT TEST 2022-02-18 00:00:00 Gustabo Brock [facility] POCT URINALYSIS W/O 2022-02-18 00:00:00 Gustabo Brock [facility] SPECIFIC GRAVITY [facility] INSURANCE CORRESPONDENCE 2021-07-12 05:01:00 Doctor Miriam, [facility] CONSENT FOR CONTRACEPTION 2021-06-27 05:01:00 Doctor Diamondssmike, [facility] XR RIBS 4+ VW LEFT 2021-02-21 05:47:49 Elsa Car [facility] D-DIMER 2021-02-21 04:22:00 Elsa Car [facility] N-TERMINAL PRO-BNP 2021-02-21 04:22:00 Elsa Car [facility] POCT TEST 2021-02-21 01:40:00 [facility] [facility] URINALYSIS 2021-02-21 01:35:00 Justin Swanson [facility] NOTICE OF PRIVACY 2021-02-21 01:20:16 Doctor Unamarly, [facility] PRACTICES [facility] CONSENT/REFUSAL FOR 2021-02-21 01:19:59 Doctor Miriam, [facility] DIAGNOSIS AND TREATMENT [facility] CBC WITH DIFFERENTIAL 2020-03-21 05:53:00 Gustabo Brock [facility] VENOUS CORD GAS 2020-03-20 14:35:00 Gustabo Brock [place] [facility] CORONAVIRUS COVID-19 2020-03-19 18:29:00 Gustabo Brock [facility] TESTING [facility] CBC WITH DIFFERENTIAL 2020-03-19 18:28:00 Gustabo Brock [facility] HEPATITIS B SURFACE 2020-03-19 18:28:00 Gustabo Brock [facility] ANTIGEN [facility] ADC OR JOSUE ONLY - RPR 2020-03-19 18:28:00 Gustabo Brock [facility] HIV 1/2 AG-AB WITH REFLEX 2020-03-19 18:28:00 Gustabo Brock [facility] HB ABO GROUPING 2020-03-19 18:20:00 Gustabo Brock [place] [facility] RHO (D) IMMUNE GLOBULIN 2020-03-19 18:20:00 Gustabo Brock [facility] CONSENT/REFUSAL FOR 2020-03-19 17:28:15 Doctor Miriam, [facility] DIAGNOSIS AND TREATMENT [place] [facility] [place] ASSIGNMENT OF BENEFITS 2020-03-19 17:28:01 Doctor Unassigned, Un [facility] CONSENT/REFUSAL FOR 2020-03-12 22:02:35 Doctor Unassmike, [facility] DIAGNOSIS AND TREATMENT [place] [facility] ASSIGNMENT OF BENEFITS 2020-03-12 22:02:23 Doctor Unassigned, [facility] Name Medical [place] GLUCOSE 1 HOUR POST 2020-02-27 20:28:00 Gustabo Brock [facility] CBC WITH DIFFERENTIAL 2020-02-27 20:28:00 Gustabo Brock [facility] DSU PRE-OP 2020-02-27 05:01:00 Doctor Miriam [facility] Name Medical [place] DISABILITY/FMLA 2020-02-16 05:01:00 Doctor Miriam, [facility] Name Medical [place] NON-STRESS TEST 2020-02-06 21:07:03 Gustabo Brock [facility] POCT URINALYSIS W/O 2020-02-06 00:00:00 Gustabo Brock [facility] NON-STRESS TEST 2020-02-03 13:49:53 Gustabo Brock [facility] ADC ONLY - FERN TEST 2020-01-29 13:38:00 Carl Delgado [facility] NOTICE OF PRIVACY 2020-01-29 10:22:07 Doctor Miriam [facility] PRACTICES [place] [facility] POCT URINALYSIS W/O 2020-01-24 00:00:00 Gustabo Brock [facility] POCT URINALYSIS W/O 2020-01-20 00:00:00 Ela Raphael [facility] GRAVITY [facility] SECOND AND THIRD TRIMESTER 2020-01-18 16:30:00 [facility] HB ABO GROUPING 2020-01-18 05:37:00 Morris Carreon [facility] CBC WITH DIFFERENTIAL 2020-01-17 20:37:00 BrockGustabo Vincent [facility] HB ABO GROUPING 2020-01-17 20:35:00 BrockGustabo [place] o [facility] US PELVIS > 14 2020-01-17 19:53:32 Delmy Gustabo Kaur [facility] WEEKS [facility] URINALYSIS 2020-01-17 17:58:00 BrockGustabo Vincent [facility] ADC ONLY - FERN TEST 2020-01-17 17:58:00 Gustabo Brock [facility] GC & CHLAMYDIA AMPLIFIED 2020-01-17 17:58:00 Delmy Gustabo Kaur [facility] ASSAY [facility] CONSENT/REFUSAL FOR 2020-01-17 17:29:40 Doctor Unassigned, [facility] DIAGNOSIS AND TREATMENT [facility] ASSIGNMENT OF BENEFITS 2020-01-17 17:29:28 Doctor Unassigned, [facility] [place] [facility] AMYLASE 2020-01-09 23:19:00 BrockGustabo Vincent [facility] LIPASE 2020-01-09 23:19:00 BrockGustabo Vincent [facility] COMP. METABOLIC PANEL 2020-01-09 23:19:00 Delmy Gustabo Kaur [facility] ([id number]) Medical [place] CBC WITH DIFFERENTIAL 2020-01-09 23:19:00 BrockGustabo Vincent [facility] URINALYSIS 2020-01-09 23:19:00 BrockGustabo [facility] CONSENT/REFUSAL FOR 2020-01-09 22:45:36 Doctor Unassigned, [facility] DIAGNOSIS AND TREATMENT [place] ASSIGNMENT OF BENEFITS 2020-01-09 22:45:24 Doctor Unassigned, [facility] [place] [facility] ASSIGNMENT OF BENEFITS 2019-12-19 22:23:27 Doctor Unassigned, [facility] [place] [facility] POCT URINALYSIS W/O 2019-12-19 00:00:00 Gustabo Brock [facility] SPECIFIC GRAVITY Medical Branch NO SHOW OR MISSED 2019-07-29 19:40:43 Doctor Unassigned, [facility] APPOINTMENT POLICY [place] [facility] h ACKNOWLEDGEMENT Encounters Start End Encounter Admission Attending Care Care Encounter Source Date/Time Date/Time Type Type Clinicians Facility Department ID 2023-07-17 Outpatient Back, STLMLC STLMLC [id number] Common 11:08:00 Alonso [id number] [facility] 2023-07-07 Outpatient Back, STLMLC STLMLC [id number] Common 09:13:00 Alonso [id number] [facility] 2023-05-08 Outpatient Back, STLMLC STLMLC [id number] Common 10:45:00 Aolnso 91378 [facility] 2023-05-04 Outpatient Back, STLMLC STLMLC [id number] Common 08:26:01 Alonso [id number] [facility] 2023-04-07 Outpatient Back, STLMLC STLMLC [id number] Common 16:47:00 Alonso [id number] [facility] 2023-03-20 Outpatient Back, STLMLC STLMLC [id number] Common 11:58:00 Alonso 21155 [facility] 2023-02-09 Outpatient Back, STLMLC STLMLC [id number] Common 10:09:02 Alonso [id number] [facility] 2023-01-01 Outpatient Back, STLMLC STLMLC [id number] Common 08:23:01 Alonso [id number] [facility] 2022-12-04 Outpatient Back, STLMLC STLMLC [id number] Common 16:48:00 Alonso [id number] [facility] 2022-11-28 Outpatient Back, STLMLC STLMLC [id number] Common 10:13:01 Alonso [id number] [facility] 2022-11-27 Outpatient Back, STLMLC STLMLC [id number] Common 08:45:02 Alonso [id number] [facility] 2022-09-05 Outpatient X [facility] [place] [id number] Univers 04:58:[facility]22-08-06 Outpatient P [facility] [place] [id number] Univers 19:14:58 ity of [facility] 2022-07-09 Outpatient Back, STLMLC STLMLC [id number] Common 14:45:01 Alonso [facility] 2022-04-10 Outpatient Back, STLMLC STLMLC [id number] Common 16:49:01 Alonso [facility] 2022-01-13 Outpatient Back, STLMLC STLMLC [id number] Common 14:12:01 Alonso [facility] 2021-12-13 Outpatient Back, STLMLC STLMLC [id number] Common 13:03:02 Alonso [facility] 2021-12-11 Outpatient Back, STLMLC STLMLC [id number] Common 14:38:17 Alonso [facility] 2021-12-11 Outpatient Back, STLMLC STLMLC [id number] Common 14:37:23 Alonso [facility] 2021-12-11 Outpatient Back, STLMLC STLMLC [id number] Common 14:36:09 Alonso [facility] 2021-12-11 Outpatient Back, STLMLC STLMLC [id number] Common 14:29:00 Alonso [id number] [facility] 2021-12-11 Outpatient Back, STLMLC STLMLC [id number] Common 14:18:29 Alonso [id number] [facility] 2021-12-11 Outpatient [place], STLMLC STLMLC [id number] Common 14:10:51 Neema 16547 [facility] 2021-12-11 Outpatient Back, STLMLC STLMLC [id number] Common 13:38:13 Alonso [id number] [facility] 2021-12-11 Outpatient Back, STLMLC STLMLC [id number] Common 12:49:55 Alonso [id number] [facility] 2021-12-11 Outpatient Back, STLMLC STLMLC [id number] Common 12:48:47 Alonso [id number] [facility] 2021-12-11 Outpatient Back, STLMLC STLMLC [id number] Common 12:29:07 Alonso [id number] [facility] 2021-12-11 Outpatient Back, STLMLC STLMLC [id number] Common 12:23:04 Alonso [id number] [facility] 2021-12-11 Outpatient Back, STLMLC STLMLC [id number] Common 12:15:33 Alonso [id number] [facility] 2021-12-11 Outpatient Back, STLMLC STLMLC [id number] Common 12:11:06 Alonso [id number] [facility] 2021-12-11 Outpatient Back, STLMLC STLMLC [id number] Common 12:07:48 Alonso [id number] [facility] 2021-12-11 Outpatient Back, STLMLC STLMLC [id number] Common 12:07:23 Alonso [id number] [facility] 2021-12-11 Outpatient Back, STLMLC STLMLC [id number] Common 12:01:42 Alonso [id number] [facility] 2021-09-15 Emergency [facility] [id number] Univers 11:27:03 [facility] 2021-09-12 Outpatient P [facility] [place] [id number] Univers 19:48:53 [facility] 2021-09-12 Outpatient P [facility] [id number] Univers 19:10:49 [facility] 2021-09-12 Outpatient P [facility] [id number] Univers 14:24:30 [facility] 2021-09-12 Outpatient P [facility] [id number] Univers 12:37:40 [facility] 2021-09-12 Outpatient P [facility] [place] [id number] Univers 10:46:13 [facility] 2023-01-19 2023-01-19 Outpatient Eleanor RAPHAEL, [facility] [id number] Univers 11:15:00 11:15:00 ELA [facility] 2023-01-11 2023-01-11 Emergency X JHONY, [facility] ERT [id number] Univers 19:10:00 21:09:00 ERIN blount [facility] 2023-01-11 2023-01-11 Emergency [facility] 1.2.258.639 [id number] Univers 19:10:00 21:09:00 Erin BENSONMARCELO 350.1.13.10 i ty of [place] 4.2.7.2.686 [facility] [id number] [facility] 084 [place] 2023-01-11 2023-01-11 Orders Doctor [place] 1.2.840.114 [id number] Univers 00:00:00 00:00:00 Only Unassigned, CHETNA 350.1.13.10 ity of [facility] 4.2.7.2.686 Braden as [phone] [facility] 009 Branch 2023-01-06 2023-01-06 OFFICE STLMLC STLMLC [id number] Co mmon 00:00:00 00:00:00 VISIT [facility] PT - CHI LEVEL 3 [facility] 2023-01-06 2023-01-06 (TEL) STLMLC STLMLC [id number] Co mmon 00:00:00 00:00:00 [facility] 2023-01-01 2023-01-01 (TEL) STLMLC STLMLC [id number] Co mmon 00:00:00 00:00:00 [facility] 2023-01-01 2023-01-01 (TEL) STLMLC STLMLC [id number] Co mmon 00:00:00 00:00:00 [facility] 2022-12-25 2022-12-25 Outpatient R IJEOMA [facility] [id number] Univers 09:15:00 09:35:10 ELA blount [facility] 2022-12-25 2022-12-25 Office Ijeoma [facility] 1.2.396.594 [id number] Univers 09:15:00 09:35:10 Visit Ela ROBBINS 350.1.13.10 i ty of [place] [phone] Sc dical NAL [address] [place] [address] 2022-12-17 2022-12-17 Outpatient R IJEOMA [facility] [id number] Univers 13:15:00 13:15:00 ELA ity [facility] 2022-12-15 2022-12-15 Patient Gustabo Brock [facility] 1.2.158.979 [id number] Univers 00:00:00 00:00:00 Secure Msg Vincent [place] 350.1.13.10 [facility] [place]2.7.2.[place] [phone] Sc dical NAL [address] [place] [address] 2022-12-04 2022-12-04 (TEL) STLMLC STLMLC [id number] Co mmon 00:00:00 00:00:00 [facility] 2022-11-28 2022-11-28 OFFICE STLMLC STLMLC [id number] Co mmon 00:00:00 00:00:00 VISIT EST Spir it PT LEVEL 3 - [facility] 2022-11-24 2022-11-24 Outpatient R GUSTABO BROCK [facility] [id number] Univers 13:00:00 13:00:00 [facility] 2022-11-21 2022-11-21 OFFICE STLMLC STLMLC [id number] Co mmon 00:00:00 00:00:00 VISIT Spirit ESTAB PT - CHI LEVEL 4 [facility] 2022-11-19 2022-11-19 (TEL) STLMLC STLMLC [id number] Co mmon 00:00:00 00:00:00 [facility] 2022-11-05 2022-11-05 (WEB) STLMLC STLMLC [id number] Co mmon 00:00:00 00:00:00 [facility] 2022-11-05 2022-11-05 (TEL) STLMLC STLMLC [id number] Co mmon 00:00:00 00:00:00 [facility] 2022-11-05 2022-11-05 OFFICE STLMLC STLMLC [id number] Co mmon 00:00:00 00:00:00 VISIT EST Spir it PT LEVEL 3 - CHI [facility] 2022-11-05 2022-11-05 Patient Gustabo Brock [facility] 1.2.084.846 [id number] Univers 00:00:00 00:00:00 Secure Msg Vincent ROBBINS 350.1.13.10 ity of [place] 4[place]2.[place].2.[place] [phone] Sc dical NAL [address] [place] [address] 2022-11-04 2022-11-04 Outpatient R GUSTABO BROCK [facility] [id number] Univers 14:45:00 14:45:00 ity [facility] 2022-11-04 2022-11-04 Emergency X FEMI [facility] ERT [id number] Univers 08:18:00 09:03:00 SO ity [facility] 2022-11-04 2022-11-04 Emergency Femi [facility] 1.2.840.114 [id number] Univers 08:18:00 09:03:00 So ROBBINS 350.1.13.10 ity [facility] [place]2.[place] [id number] [address] 2022-10-31 2022-10-31 (TEL) STLMLC STLMLC [id number] Co mmon 00:00:00 00:00:00 [facility] 2022-10-29 2022-10-29 Telephone Ladan BrockFormerly [facility] 1.2.840.114 [id number] Univers 00:00:00 00:00:00 Vincent ROBBINS 350.1.13.10 i ty of [place] 4.2.7.2.[place] [id number] Sc dical NAL [address] [place] [address] 2022-10-27 2022-10-27 Outpatient R GUSTABO BROCK [facility] [id number] Univers 15:00:00 15:56:43 ity [facility] 2022-10-27 2022-10-27 Office Ladan BrockFormerly [facility] 1.2.000.221 [id number] Univers 15:00:00 15:56:43 Visit Vincent ROBBINS 350.1.13.10 i ty of [facility] 4.2.7[place]2.[place] [id number] Sc dical NAL [address] [place] [address] 2022-10-27 2022-10-27 Orders Doctor [place] 1.2.840.114 [id number] Univers 00:00:00 00:00:00 Only Unassigned, CHETNA 350.1.13.10 ity of [place] [facility] 4.2.7.2.686 Braden as [id number] [address] 2022-10-24 2022-10-24 Case Gustabo Brock [facility] 1.2.405.407 [id number] Univers 00:00:00 00:00:00 Management Vincent ROBBINS 350.1.13.10 ity of [place] 4.2.7.2.[place] [id number] Sc dical NAL [address] [place] [address] 2022-10-21 2022-10-21 Outpatient R GUSTABO BROCK [facility] [id number] Univers 13:15:00 13:37:20 ity of [facility] 2022-10-21 2022-10-21 Office Gustabo Brock [facility] 1.2.838.399 [id number] Univers 13:15:00 13:37:20 Visit Vincent ROBBINS 350.1.13.10 i ty of [place] 4.2.7.2.[place] [id number] Sc dical NAL [address] [place] [address] 2022-10-21 2022-10-21 Patient Lesley [facility] 1.2.840.114 [id number] Univers 00:00:00 00:00:00 Secure Msg Evelyne ROBBINS 350.1.13.10 ity of [facility] 4.2.7.2.[place] [id number] Sc dical NAL [address] [place] [address] 2022-10-15 2022-10-15 Patient Georges [facility] 1.2.840.114 [id number] Univers 00:00:00 00:00:00 Secure Msg [place] ROBBINS 350.1.13.10 ity of [place] 4.2.7.2.[place] [id number] Sc dical [address] 2022-09-25 2022-09-25 Letter Gustabo Brock [facility] 1.2.030.427 [id number] Univers 00:00:00 00:00:00 (Out) Cam [place] 350.1.13.10 i ty of [place] 4.2.7.2.[place] [id number] Sc dic[address] 2022-09-24 2022-09-24 Outpatient R GUSTABO BROCK [facility] [id number] Univers 11:15:00 11:57:43 ity of [facility] 2022-09-24 2022-09-24 Routine [facility] 1.2.358.703 [id number] Univers 11:15:00 11:57:43 Cam KELLYETON 350.1.13.10 ity of Visit [place] 4.2.7.2.[place] [id number] Sc dic[address] 2022-09-22 2022-09-22 Patient Doctor [place] 1.2.840.114 [id number] Univers 00:00:00 00:00:00 Secure Msg Unassigned, CHETNA 350.1.13.[address] ity [address] [place] [facility] 4.2.7.2.686 [place] as [id number] [address] 2022-09-15 2022-09-15 Telephone Delmy GustaboFormerly [facility] 1.2.840.114 [id number] Univers 00:00:00 00:00:00 Cam [place] 350.1.13.10 i ty of [place] 4.2.7.2.[place] [phone] Sc dic[address] 2022-09-08 2022-09-09 Inpatient P DELMY [facility] [place] [id number] Univers 04:16:00 18:08:00 ity of [facility] 2022-09-08 2022-09-09 Hospital Gustabo Brock [facility] 1.2.840.114 [id number] Univers 04:16:00 18:08:00 Encounter Cam [place] 350.1.13.10 ity of [place] 4.2.7.2.686 [facility] [id number] [address] 2022-09-08 2022-09-08 Anesthesia Chago Bonilla S [facility] 1.2 .840.114 [id number] Univers 12:01:00 17:01:00 Event Luis Enriquealea [place] Daugherty ROSENDO 350.1.13.10 ity of [place] 4.2.7.2.686 [facility] [id number] [address] 2022-09-08 2022-09-08 Anesthesia Raimundo, [facility] 1.2.840.114 [id number] Univers 12:13:59 12:13:59 Event Korey ROSENDO 350.1.13.10 i ty of [facility] 4.2.7.2.686 [facility] [id number] [address] 2022-09-05 2022-09-05 Outpatient X ADUM, [facility] [place] [id number] Univers 01:52:00 04:48:00 PAIGE blount of [facility] 2022-09-05 2022-09-05 Emergency Adum, [facility] 1.2.599.166 [id number] Univers 01:52:00 04:48:00 Paige ROBBINS 350.1.13.10 ity of [place] 4.2.7.2.686 [facility] [id number] [address] 2022-09-05 2022-09-05 Patient Georges, [facility] 1.2.840.114 [id number] Univers 00:00:00 00:00:00 Secure Msg [place] ROS[place] 350.1.13.10 ity of [place] [id number] Me dical NAL 134 [facility] 2022-09-05 2022-09-05 Patient Doctor [facility] 1.2.840.114 [id number] Univers 00:00:00 00:00:00 Secure Msg UnassROSENDO mckeon 350.1.13.10 ity of [place] 4.2.[place].2.[place] [id number] [address] 2022-09-03 2022-09-03 Outpatient R GUSTABO BROCK [facility] [id number] Univers 10:45:00 12:05:25 ity of [facility] 2022-09-03 2022-09-03 Routine Gustabo Brock [facility] 1.2.904.312 [id number] Univers 10:45:00 12:05:25 Cam [place] 350.1.13.10 ity of Visit [place] 4.2.7.2.[place] [id number] [address] 2022-09-01 2022-09-02 Outpatient X DELMY [facility] GUDELIA [id number] Univers 23:27:00 01:04:00 ity of [facility] 2022-09-01 2022-09-02 Emergency Ladan BrockFormerly [facility] 1.2.840.114 [id number] Univers 23:27:00 01:04:00 Cam ROSENDO 350.1.13.10 i ty of [place] 4.2.7.2.[place] [id number] [facility] 083 [place] 2022-08-29 2022-08-29 Patient Doctor [place] 1.2.840.114 [id number] Univers 00:00:00 00:00:00 Secure Msg Unassigned, CHETNA 350.1.13.[address] [place] [facility] 4.2.7.2.686 Braden as [phone] [facility] 019 [place] 2022-08-26 2022-08-26 Outpatient R GUSTABO BROCK [facility] [id number] Univers 16:00:00 16:12:03 ity of [facility] 2022-08-26 2022-08-26 Routine Ladan BrockFormerly [facility] 1.2.777.994 [id number] Univers 16:00:00 16:12:03 Cam [place] 350.1.13.10 ity of Visit [place] 4.2.7.2.[place] [id number] [address] 2022-08-26 2022-08-26 Orders Doctor [place] 1.2.840.114 [id number] Univers 00:00:00 00:00:00 Only Unassigned, CHETNA 350.1.13.10 ity of [place] [facility] 4.2.7.2.686 Braden as [id number] [address] 2022-08-21 2022-08-21 Outpatient R BRIT [facility] [id number] Univers 13:00:00 16:37:05 RAISSA ity of [facility] 2022-08-21 2022-08-21 Ancillary Lyndsay Pritchard [facility] 1 .2.840.114 [id number] Univers 13:00:00 16:37:05 Visit Raissa Perea L [place] 350.1.13.10 ity of [facility] 4.2.7.2.[place] [phone] Sc dical NAL 179 [facility] 2022-08-19 2022-08-19 Patient Gustabo Brock [facility] 1.2.287.210 [id number] Univers 00:00:00 00:00:00 Secure Msg Cam [place] 350.1.13.10 ity of [facility] 4.2.7.2.[place] [phone] Sc dical NAL 134 [facility] 2022-08-15 2022-08-15 Patient Gustabo Brock [facility] 1.2.064.486 [id number] Univers 00:00:00 00:00:00 Secure Msg Cam [place] 350.1.13.10 ity of [facility] 4.2.7.2.[place] [id number] Sc dical NAL 134 [facility] 2022-08-12 2022-08-12 Outpatient R GUSTABO BROCK [facility] [id number] Univers 13:45:00 14:17:28 ity of [facility] 2022-08-12 2022-08-12 Routine Gustabo Brock [facility] 1.2.777.299 [id number] Univers 13:45:00 14:17:28 Cam [place] 350.1.13.10 ity of Visit [place] 4.2.7.2.[place] [id number] Sc dical NAL 134 [facility] 2022-08-06 2022-08-06 Out[facility] [place] [id number] Univers 17:23:00 18:44:00 PAIGE ity of [facility] 2022-08-06 2022-08-06 [facility] 1.2.840.114 [id number] Univers 17:23:00 18:44:00 Encounter Paige Fiona ROBB[place] 350.1.13.10 ity of [place] 4.2.7.2.[place] [id number] [facility] 083 [place] 2022-08-06 2022-08-06 Patient Doctor [facility] 1.2.840.114 [id number] Univers 00:00:00 00:00:00 Secure Msg Unassigned, [place] 350.1.13.10 ity of [place] 4.2.7.2.[place] [phone] Sc dical NAL [address] [place] [address] 2022-07-29 2022-07-29 Outpatient GUSTABO CARTER [facility] [id number] Univers 13:15:00 13:58:44 ity of [facility] 2022-07-29 2022-07-29 Routine Ela Raphael [facility] 1.2.840.11 [id number] Univers 13:15:00 13:58:44 Gustabo Brock [id number] ity of Visit [place]7.2.[place] [phone] Sc dical NAL [address] [place] [address] 2022-07-28 2022-07-28 Outpatient GUSTABO [facility] [id number] Univers 16:15:00 16:15:00 ity of [facility] 2022-07-28 2022-07-28 Patient Doctor [place] 1.2.840.114 [id number] Univers 00:00:00 00:00:00 Secure Msg Unassigned, CHETNA [id number] [place] [facility] 4.2.7.2.686 Braden as [id number] [facility] 019 Rosanky 2022-07-22 2022-07-22 Diagrammer And Seamer Ultrasound, Adc [facility] 1.2 .840.114 [id number] Univers 09:45:00 10:16:58 Visit Regino Tinoco [place] 350.1.13.10 [facility] 4.2.7.2.[place] [phone] Sc dical NAL [address] [place] [address] 2022-07-22 2022-07-22 Outpatient P [facility] [id number] Univers 09:45:00 09:45:00 REGINO ity [facility] 2022-07-14 2022-07-14 OFFICE STLMLC STLMLC [id number] Co mmon 00:00:00 00:00:00 VISIT EST Spir it PT LEVEL 3 - [facility] 2022-07-14 2022-07-14 (TEL) STLMLC STLMLC [id number] Co mmon 00:00:00 00:00:00 [facility] 2022-07-11 2022-07-11 Patient Gustabo Brock [facility] 1.2.744.379 [id number] Univers 00:00:00 00:00:00 Secure Msg Cam [place] 350.1.13.10 ity of [place] [phone] Sc dical NAL [address] [place] [address] 2022-07-08 2022-07-08 Outpatient R [facility] [id number] Univers 14:45:00 15:38:39 ity of [facility] 2022-07-08 2022-07-08 Routine Gustabo Brock [facility] 1.2.232.010 [id number] Univers 14:45:00 15:38:39 Cam [place] 350.1.13.10 ity of [place] [phone] Sc dical NAL [address] [place] [address] 2022-07-08 2022-07-08 Patient Gustabo Brock [facility] 1.2.546.745 [id number] Univers 00:00:00 00:00:00 Secure Msg Cam [place] 350.1.13.10 ity of [facility] [place] [phone] Sc dical [address] 2022-07-08 2022-07-08 (TEL) [facility] [id number] Co mmon 00:00:00 00:00:00 [facility] 2022-07-07 2022-07-07 Outpatient R [facility] [id number] Univers 11:00:00 11:00:00 ity [facility] 2022-07-01 2022-07-01 Nurse Nurse, [facility] 1.2.840.114 [id number] [facility] 09:00:00 11:59:47 Visit Gustabo Brock [place] 350.1.13.10 ity of [facility] [place] [id number] [address] 2022-07-01 2022-07-01 Outpatient R [facility] [id number] Univers 09:00:00 09:00:00 ity [facility] 2022-06-30 2022-06-30 Outpatient R IJEOMA [facility] [id number] Univers 09:00:00 09:00:00 [facility] 2022-06-30 2022-06-30 Patient Georges [facility] 1.2.840.114 [id number] Univers 00:00:00 00:00:00 Secure Msg [place] ROSENDO 350.1.13.10 ity of [facility] [place] [phone] [address] 2022-06-30 2022-06-30 Patient Gustabo Brock [facility] 1.2.616.812 [id number] Univers 00:00:00 00:00:00 Secure Msg Vincent [place] 350.1.13.10 ity of [facility] [place] [phone] Sc dic[address] 2022-06-27 2022-06-27 Nurse Odilon BURRIS 1.2.840.114 [id number] Univers 00:00:00 00:00:00 Triage CHETNA Reynolds 350.1.13.10 ity of [facility] 4.2.7.2.686 [place] as [id number] [address] 2022-06-27 2022-06-27 Patient Doctor [place] 1.2.840.114 [id number] Univers 00:00:00 00:00:00 Secure Msg UnassCHETNA mckeon 350.1.13.10 ity of [facility] 4.2.7.2.686 [place] as [phone] [address] 2022-06-24 2022-06-24 Diagrammer And Seamer 2, Adc Lab [facility] 1.2.840.114 [id number] Univers 08:45:00 09:00:00 Visit Gustabo Brock 350.1.13.10 ity of [place] [phone] Sc dical NAL 353 [facility] 2022-06-24 2022-06-24 Outpatient R [facility] [id number] Univers 08:45:00 08:45:00 ity of [facility] 2022-06-23 2022-06-23 Outpatient R [facility] [id number] Univers 10:00:00 10:49:38 ity of [facility] 2022-06-23 2022-06-23 Routine Gustabo Brock [facility] 1.2.167.412 [id number] Univers 10:00:00 10:49:38 Vincent ROBBINS 350.1.13.10 ity of Visit [place] 4[place] [phone] Sc dical NAL 134 [facility] 2022-06-20 2022-06-20 Outpatient R [facility] [id number] Univers 10:15:00 10:15:00 ity of [facility] 2022-06-20 2022-06-20 Patient Georges [facility] 1.2.840.114 [id number] Univers 00:00:00 00:00:00 Secure Msg [place] ROBBINS 350.1.13.10 ity of [place] [phone] Sc dical [address] 2022-06-20 2022-06-20 Patient Doctor [facility] 1.2.840.114 [id number] Univers 00:00:00 00:00:00 Secure Msg Unassigned ROSENDO 350.1.13.10 ity of [place] [facility] 4.2.7.2.[place] 485.4627249 Sc dic[address] 2022-06-16 2022-06-16 Tasha Raphael [facility] 1.2.927.564 [id number] Univers 00:00:00 00:00:00 Ela ROBBINS 350.1.13.10 i ty of [place] 4[place].2.[place] [phone] Sc dic[address] 2022-06-16 2022-06-16 Patient Gustabo Brock [facility] 1.2.770.787 [id number] Univers 00:00:00 00:00:00 Secure Msg Cam ROSENDO 350.1.13.10 ity of [place] 4[place] [phone] [address] 2022-06-13 2022-06-13 Letter [place] Ni 1.2.840.114 [id number] Univers 00:00:00 00:00:00 (Out) Angelica BASILIO 350.1.13.[address] [facility] 4.2.7.2.686 [place] as [phone] [address] 2022-06-12 2022-06-12 Outpatient R [facility] [id number] Univers 11:00:00 11:00:00 ity [facility] 2022-06-12 2022-06-12 Emergency X ORACIO [facility] ERT [id number] Univers 03:14:00 04:24:00 VANDANA itkassandra [facility] 2022-06-12 2022-06-12 Emergency Oracio [facility] 1.2.840.114 [id number] Univers 03:14:00 04:24:00 Vandana [place] 350.1.13.10 i ty of [place]2.7.2.[place] [phone] [address] 2022-06-12 2022-06-12 Patient Gustabo Brock [facility] 1.2.689.760 [id number] Univers 00:00:00 00:00:00 Secure Msg Cam [place] 350.1.13.10 ity of [place].2.[place] [phone] Sc dical [facility] 134 [facility] 2022-06-12 2022-06-12 OFFICE [facility] [id number] Co mmon 00:00:00 00:00:00 VISIT EST Spir it PT LEVEL 3 - [facility] 2022-06-11 2022-06-11 Laboratory Only, Ang Db Test [facility] 1.2.8 40.114 [id number] Univers 09:30:00 09:45:00 Only Janine Watkins [facility] 350.1.13.10 ity of [place] 4.2.7.2.686 Braden as JOSE?BLEA [id number] [address] MEDICAL OFFICE [facility] 2022-06-11 2022-06-11 Outpatient R JUNE [facility] [id number] Univers 09:30:00 09:30:00 JANINE garzay o f [facility] 2022-06-11 2022-06-11 (TEL) [facility] [id number] Co mmon 00:00:00 00:00:00 [facility] 2022-06-10 2022-06-10 Patient Gustabo Brock [facility] 1.2.256.792 [id number] Univers 00:00:00 00:00:00 Secure Msg Cam [place] 350.1.13.10 ity of [place] [phone] Sc dical NAL 134 [facility] 2022-05-13 2022-05-13 Routine Gustabo Brock [facility] 1.2.757.877 [id number] Univers 13:00:00 13:27:09 Cam [place] 350.1.13.10 ity of Visit [place].2.[place] [phone] Sc dical NAL [address] [place] [address] 2022-05-13 2022-05-13 Outpatient P LEILA [facility] [id number] Univers 11:00:00 11:47:03 ALEAH it y of JAV[place] Savage [facility] 2022-05-13 2022-05-13 Diagrammer And Seamer Ultrasound, Adc [facility] 1.2 .840.114 [id number] Univers 11:00:00 11:47:03 Visit Javier Swann [place] 350.1 .13.10 ity of [facility] 4.2.7.2.[place] [phone] Sc dicmd NAL [address] [place] [address] 2022-04-24 2022-04-24 Outpatient R DELMY GUSTABO [facility] [id number] Univers 13:00:00 13:21:13 ity of [facility] 2022-04-24 2022-04-24 Routine Delmy Gustabo [facility] 1.2.734.467 [id number] Univers 13:00:00 13:21:13 Cam [place] 350.1.13.10 ity of [facility] 4.2.[place].2.[place] [id number] Sc dical NAL [address] [place] [address] 2022-04-24 2022-04-24 Patient CaseNeena [facility] 1.2.840.114 [id number] Univers 00:00:00 00:00:00 Secure Msg A [place] 350.1.13.10 ity of [place] 4.2.7.2.[place] 198.8549242 Sc dical NAL [address] [place] [address] 2022-04-18 2022-04-18 Patient Gustabo Brock [facility] 1.2.864.789 [id number] Univers 00:00:00 00:00:00 Secure Msg Cam [place] 350.1.13.10 ity of [facility] 4.2.7.2.[place] [phone] Sc dical NAL [address] [place] [address] 2022-04-17 2022-04-17 Diagrammer And Seamer 2, Adc Lab [facility] 1.2.840.114 [id number] Univers 11:45:00 12:00:00 Visit Gustabo Brock [place] 350.1.13.10 ity of [place] 4.2.[place].2.[place] [phone] Sc dical NAL 353 [facility] 2022-04-17 2022-04-17 Outpatient R LADAN BROCKEN [facility] [id number] Univers 11:15:00 11:39:14 ity of [facility] 2022-04-17 2022-04-17 Routine [facility] 1.2.200.769 [id number] Univers 11:15:00 11:39:14 Vincent ROBB[place] 350.1.13.10 ity of Visit [facility] [place] [id number] Sc dical NAL 134 [facility] 2022-04-10 2022-04-10 [facility] [id number] Common 00:00:00 00:00:00 EST AGE [facility] 18-39 - [facility] 2022-04-02 2022-04-02 Telephone Gustabo Brock [facility] 1.2.840.114 [id number] Univers 00:00:00 00:00:00 Vincent ROBB[place] 350.1.13.10 i ty of [place].2.[place] [phone] Sc dical NAL 134 [facility] 2022-03-27 2022-03-27 (TEL) [facility] [id number] Co mmon 00:00:00 00:00:00 [facility] 2022-03-21 2022-03-21 Patient Doctor [facility] 1.2.840.114 [id number] Univers 00:00:00 00:00:00 Secure Msg Unassigned, [place] 350.1.13.10 ity of [place].2.[place] [phone] Sc dical NAL 134 [facility] 2022-03-20 2022-03-20 Outpatient R LADAN BROCKEN [facility] [id number] Univers 11:00:00 11:50:41 ity of [facility] 2022-03-20 2022-03-20 Routine Ela Raphael [facility] 1.2.840.11 [id number] Univers 11:00:00 11:50:41 Gustabo Brock Vincent [place] 350.1.13.10 ity of Visit [place] [phone] Sc dical NAL 134 [facility] 2022-03-20 2022-03-20 Orders Doctor [place] 1.2.840.114 [id number] Univers 00:00:00 00:00:00 Only Unassigned, CHETNA 350.1.13.[address] [place] [facility] 4.2.7.2.686 Braden as [phone] [address] 2022-03-10 2022-03-10 Patient Gustabo Brock [facility] 1.2.686.003 [id number] Univers 00:00:00 00:00:00 Secure Msg Vincent [place] 350.1.13.10 ity of [place]2.[place] [phone] Sc dical NAL [address] [place] [address] 2022-03-06 2022-03-06 Telephone Gustabo Brock [facility] 1.2.840.114 [id number] Univers 00:00:00 00:00:00 Vincent ROBBINS 350.1.13.10 i ty of [place] 4[place].7.2.[place] [phone] Sc dical NAL [address] [place] [address] 2022-02-28 2022-02-28 Outpatient R GUSTABO BROCK [facility] [id number] Univers 09:00:00 09:00:00 ity of [facility] 2022-02-21 2022-02-21 Diagrammer And Seamer 2, Adc Lab [facility] 1.2.840.114 [id number] Univers 08:30:00 08:45:00 Visit Delmy Gustaboperlita ROBBINS 350.1.13.10 ity of [place].2.[place] [phone] Sc dical NAL 353 [facility] 2022-02-21 2022-02-21 Outpatient R GUSTABO BROCK [facility] [id number] Univers 08:30:00 08:30:00 ity of [facility] 2022-02-19 2022-02-19 Case Juan CONORBERTO PENNY 1.2.840.114 [id number] Univers 00:00:00 00:00:00 Management Marialuisa ANDERSON 350.1.13.10 ity of [place] [phone] [address] 2022-02-19 2022-02-19 Patient Juan CONORBERTO PENNY 1.2.840.114 [id number] Univers 00:00:00 00:00:00 Secure Msg Marialuisa JUSTIN 350.1.13.10 ity [place] [facility] [place] [facility] [id number] [address] 2022-02-19 2022-02-19 Patient Ladan BrockFormerly [facility] 1.2.957.429 [id number] Univers 00:00:00 00:00:00 Secure Msg Cam [place] 350.1.13.10 ity of [place] 443.5158824 Sc dic[address] 2022-02-18 2022-02-18 Outpatient R GUSTABO [facility]OCK [facility] [id number] Univers 11:00:00 11:23:07 ity of [facility] 2022-02-18 2022-02-18 Initial [facility] 1.2.838.110 [id number] Univers 11:00:00 11:23:07 Cam [place] 350.1.13.10 ity of Visit [place] 658.8733028 Sc dic[address] 2022-02-18 2022-02-18 Orders Doctor BURRIS 1.2.840.114 [id number] Univers 00:00:00 00:00:00 Only Unassigned, CHETNA 350.1.13.[address] [place] [facility] 4.2.7.2.686 Braden as [phone] [address] 2022-02-07 2022-02-07 Outpatient R GUSTABO BROCK [facility] [id number] Univers 10:45:00 10:45:00 ity of [facility] 2022-01-14 2022-01-14 Patient Gustabo Brock CONORBERTO PENNY 1.2.840.114 [id number] Univers 00:00:00 00:00:00 Secure Msg Vincent AND[place] 350.1.13.10 ity of [facility] 4.2.7.2.686 [facility] [phone] [address] 2022-01-13 2022-01-13 (TEL) STLMLC STLMLC [id number] Co mmon 00:00:00 00:00:00 [facility] 2022-01-13 2022-01-13 OFFICE STLMLC STLMLC [id number] Co mmon 00:00:00 00:00:00 VISIT EST Spir it PT LEVEL 3 - [facility] 2022-01-09 2022-01-09 Patient Ijeoma [facility] 1.2.455.531 [id number] Univers 00:00:00 00:00:00 Secure Msg Ela ROSENDO 350.1.13.10 ity of [facility] 4.2.7.2.686 [facility] Alicelillian [facility] [phone] Sc dical [address] 2021-12-25 2021-12-25 OL DIG E/M STLMLC STLMLC [id number] Common 00:00:00 00:00:00 [facility] 11-20 Spir it MIN [facility] 2021-12-25 2021-12-25 (TEL) STLMLC STLMLC [id number] Co mmon 00:00:00 00:00:00 [facility] 2021-12-13 2021-12-13 (TEL) STLMLC STLMLC [id number] Co mmon 00:00:00 00:00:00 [facility] 2021-12-13 2021-12-13 OFFICE STLMLC STLMLC [id number] Co mmon 00:00:00 00:00:00 VISIT Spirit ESTAB PT - CHI LEVEL 2 [facility] 2021-12-13 2021-12-13 (TEL) STLMLC STLMLC [id number] Co mmon 00:00:00 00:00:00 [facility] 2021-12-05 2021-12-05 Patient Ijeoma, [facility] 1.2.711.953 [id number] Univers 00:00:00 00:00:00 Secure Msg Ela [place] 350.1.13.10 ity of [place].2.[place] [phone] Me dical NAL [address] [place] [address] 2021-12-02 2021-12-02 OFFICE STLMLC STLMLC [id number] Co mmon 00:00:00 00:00:00 VISIT Spirit [facility] PT - CHI LEVEL 1 [facility] 2021-12-02 2021-12-02 (TEL) STLMLC STLMLC [id number] Co mmon 00:00:00 00:00:00 [facility] 2021-11-28 2021-11-28 Patient Ijeoma, [facility] 1.2.522.969 [id number] Univers 00:00:00 00:00:00 Secure Msg Ela [place] 350.1.13.10 ity of [place].2.[place] 307.8069452 Me dical NAL [address] [place] [address] 2021-11-15 2021-11-15 Patient Ijeoma, [facility] 1.2.269.812 [id number] Univers 00:00:00 00:00:00 Secure Msg Ela [place] 350.1.13.10 ity of [place].2.[place] [phone] Me dical NAL 134 [facility] 2021-11-12 2021-11-12 OL DIG E/M STLMLC STLMLC [id number] Common 00:00:00 00:00:00 [facility] 11-20 Spir it [facility] 2021-11-11 2021-11-11 (TEL) STLMLC STLMLC [id number] Co mmon 00:00:00 00:00:00 [facility] 2021-11-06 2021-11-06 Outpatient R IJEOMA [facility] [id number] Univers 10:30:00 10:30:00 ELA [facility] 2021-10-15 2021-10-15 (TEL) STLMLC STLMLC [id number] Co mmon 00:00:00 00:00:00 [facility] 2021-10-15 2021-10-15 (TEL) STLMLC STLMLC [id number] Co mmon 00:00:00 00:00:00 [facility] 2021-10-15 2021-10-15 OFFICE STLMLC STLMLC [id number] Co mmon 00:00:00 00:00:00 VISIT EST Spir it PT LEVEL 3 [facility] 2021-09-30 2021-09-30 Outpatient R IJEOMA [facility] [id number] Univers 11:45:00 11:24:49 ELA [facility] 2021-09-30 2021-09-30 [facility]medici [facility] 1.2.840.114 [id number] Univers 09:11:25 09:26:25 ne Visit Ela ROBBINS 350.1.13.10 ity of [place] 108.6755545 Sc dical [address] 2021-09-20 2021-09-20 Patient Ijeoma [facility] 1.2.594.553 [id number] Univers 00:00:00 00:00:00 Secure Msg Ela BENSONMARCELO 350.1.13.10 ity of [facility] 4.2.7.2.[place] [phone] Sc dical NAL [address] [place] [address] 2021-09-19 2021-09-19 Outpatient Eleanor S[facility]ALS [facility] [id number] Univers 18:30:00 19:32:34 REEMA jose alejandro [facility] 2021-09-19 2021-09-19 Laboratory Only, Ang Db Test [facility] 1.2.8 40.114 [id number] Univers 18:25:51 18:40:51 Only Reema Smalls [employer] 350.1.13.10 ity of [place] 4.2.7.2.686 Braden as JOSE?BLEA [phone] Sc dical EY [address] MED[facility] OFF[facility] 2021-09-02 2021-09-02 OFFICE STLMLC STLMLC [id number] Co mmon 00:00:00 00:00:00 VISIT EST Spir it PT LEVEL 3 - [facility] 2021-09-02 2021-09-02 (TEL) STLM STLC [id number] Co mmon 00:00:00 00:00:00 [facility] - [facility] 2021-08-29 2021-08-29 Patient Ijeoma [facility] 1.2.797.690 [id number] Univers 00:00:00 00:00:00 Secure Msg Ela ROSENDO 350.1.13.10 ity of [place] 171.0189419 Sc dical NAL 134 [facility] 2021-08-26 2021-08-26 Refill Ijeoma [facility] 1.2.043.908 [id number] Univers 00:00:00 00:00:00 Elatereza Robbins 350.1.13.10 i ty of [place] [phone] Sc dical nal 134 [facility] 2021-07-26 2021-07-26 (COVID STLMLC STLMLC [id number] Co mmon 00:00:00 00:00:00 Inj) COVID Spi rit Injection - [facility] 2021-07-23 2021-07-23 Letter [place] Ni 1.2.840.114 [id number] Univers 00:00:00 00:00:00 (Out) Angelica BASILIO 350.1.13.[address] [facility] 4.2.7.2.686 [place]aden as [id number] [address] 2021-07-22 2021-07-22 Laboratory Only, Ang Db Test [facility] 1.2.8 40.114 [id number] Univers 10:31:38 10:46:38 Only Kirsten, Marcella Nexeon 350.1.13.10 ity of [place] 4.2.7.2.686 Braden as Jose?Blea 273.8667510 [address] Medical [facility] 2021-07-22 2021-07-22 Outpatient R [facility] [id number] Univers 10:30:00 10:30:00 ity of [facility] 2021-07-12 2021-07-12 Telephone [facility] 1.2.840.114 [id number] Univers 00:00:00 00:00:00 Ela Robbins 350.1.13.10 i ty of [place] [phone] [address] 2021-07-12 2021-07-12 Orders Doctor BURRIS 1.2.840.114 [id number] Univers 00:00:00 00:00:00 Only UnassignedCHETNA 350.1.13.[address] [place] [facility] 4.2.7.2.686 Braden as 109.0745170 [address] 2021-06-28 2021-06-28 (COVID STLMLC STLMLC [id number] Co mmon 00:00:00 00:00:00 Inj) COVID Spi rit Injection - [facility] 2021-06-27 2021-06-27 Office [facility] 1.2.789.310 [id number] Univers 10:59:25 11:39:22 Visit Ela Robbins 350.1.13.10 i ty of [place] 534.4622434 Sc dic[address] 2021-06-27 2021-06-27 [facility] [id number] Univers 10:45:00 10:45:00 ELA itkassandra [facility] 2021-06-27 2021-06-27 Orders Doctor BURRIS 1.2.840.114 [id number] Univers 00:00:00 00:00:00 Only UnassignedCHETNA 350.1.13.10 [facility] 4.2.7.2.686 [place] as [phone] [address] 2021-06-20 2021-06-20 [facility] 1.2.612.308 [id number] [id number] Univers 00:00:00 00:00:00 Ela Robbins 350.1.13.10 i ty of [place] 096.0896083 Sc dical [address] 2021-06-16 2021-06-16 [facility] [id number] Univers 00:00:00 00:00:00 Ela Robbins 350.1.13.10 i [place] [phone] Sc dical [address] 2021-06-04 2021-06-04 Patient Ijeoma [facility] [id number] Univers 00:00:00 00:00:00 Secure Msg Ela ROBBINS [id number] ity of [place]2.7.2.[place] [phone] Sc dic[address] 2021-05-06 2021-05-06 Outpatient R IJEOMA [facility] [id number] Univers 10:00:00 10:00:00 ELA ity [facility] 2021-04-23 2021-04-23 [facility]ICE [facility] [id number] Co mmon 00:00:00 00:00:00 VISIT EST Spir it PT LEVEL 3 - [facility] 2021-03-25 2021-03-25 Outpatient STLC STLC [id number] Common 00:00:00 00:00:00 [facility] 2021-03-18 2021-03-18 Patient Ijeoma [facility] [id number] Univers 00:00:00 00:00:00 Secure Msg Ela Portia 350.1.13.10 it[place] [phone] [facility] [place] [address] [address] [facility] 2021-02-22 2021-02-22 Outpatient STLMLC STLMLC [id number] Common 00:00:00 00:00:00 [facility] 2021-02-22 2021-02-22 Outpatient STLMLC STLMLC [id number] Common 00:00:00 00:00:00 [facility] 2021-02-22 2021-02-22 Outpatient STLMLC STLMLC [id number] Common 00:00:00 00:00:00 [facility] 2021-02-20 2021-02-21 Emergency [facility] [id number] Univers 20:37:00 02:00:00 Elsa Robbins 350.1.13.10 ity of [place] 4[place]2.7.2.686 [place] [facility] [phone] [facility] [address] 2021-02-21 2021-02-21 Patient Doctor [place] [id number] Univers 00:00:00 00:00:00 Secure Msg Unassigned, CHETNA 350.1.13.10 ity of [place] [facility] 4.2.7.2.686 [place] as [phone] [facility] [address] 2021-02-20 2021-02-20 Orders Doctor [place] [id number] Univers 00:00:00 00:00:00 Only Unassigned, CHETNA 350.1.13.10 ity of [place] [facility] 4.2.7.2.686 [place] as [phone] [facility] [address] 2021-02-20 2021-02-20 Outpatient STLMLC STLMLC [id number] Common 00:00:00 00:00:00 [facility] 2021-01-07 2021-01-07 Outpatient Eleanor RAPHAEL [facility] [id number] Univers 15:15:00 15:15:00 ELA blount [facility] 2020-12-25 2020-12-25 Outpatient Eleanor RAPHAEL [facility] [id number] Univers 08:30:00 08:30:00 ELA blount [facility] 2020-12-24 2020-12-24 Outpatient STLMLC STLMLC [id number] Common 00:00:00 00:00:00 [facility] 2020-12-24 2020-12-24 Outpatient STLMLC STLMLC [id number] Common 00:00:00 00:00:00 [facility] 2020-12-21 2020-12-21 Outpatient STLMLC STLMLC [id number] Common 00:00:00 00:00:00 [facility] 2020-12-21 2020-12-21 Outpatient STLMLC STLMLC [id number] Common 00:00:00 00:00:00 [facility] 2020-12-19 2020-12-19 Patient Gustabo Brock [facility] [id number] Univers 00:00:00 00:00:00 Secure Msg Vincent ROBBINS 350.1.13.10 ity The [facility] [place] [phone] Sc dical NAL [address] [place] [address] 2020-12-17 2020-12-17 Outpatient R [facility] [id number] Univers 15:00:00 15:00:00 [facility] 2020-12-14 2020-12-14 Outpatient R [facility] [id number] Univers 14:00:00 14:00:00 [facility] 2020-12-14 2020-12-14 Telephone Gustabo Brock [facility] 1.2.840.114 [id number] Univers 00:00:00 00:00:00 Vincent Robbins 350.1.13.10 i ty [facility] [place] [phone] Sc dical nal [address] [place] [address] 2020-12-14 2020-12-14 Patient Doctor [place] 1.2.840.114 [id number] Univers 00:00:00 00:00:00 Secure Msg Unassigned, CHETNA 350.1.13.10 ity [facility] 4.2.7.2.686 [place] [phone] [address] 2020-12-06 2020-12-06 Outpatient STLMLC STLMLC [id number] Common 00:00:00 00:00:00 [facility] 2020-11-20 2020-11-20 Outpatient R GUSTABO BROCK [facility] [id number] Univers 13:30:00 13:30:00 ity of [facility] 2020-11-19 2020-11-19 Patient Doctor [facility] 1.2.840.114 [id number] Univers 00:00:00 00:00:00 Secure Msg UnassignedROSENDO 350.1.13.10 ity of [place] [phone] Sc dical NAL [address] [place] [address] 2020-11-07 2020-11-07 Outpatient STLMLC STLMLC [id number] Common 00:00:00 00:00:00 [facility] 2020-10-22 2020-10-22 Outpatient STLMLC STLMLC [id number] Common 00:00:00 00:00:00 [facility] 2020-10-08 2020-10-08 Outpatient STLMLC STLMLC [id number] Common 00:00:00 00:00:00 [facility] 2020-09-18 2020-09-18 Nurse Nurse, [facility] 1.2.840.114 [id number] Univers 10:43:05 11:10:34 Visit Gustabo Brock 350.1.13.10 ity of [place] [phone] Sc dical nal [address] [place] [address] 2020-09-18 2020-09-18 Outpatient R [facility] [id number] Univers 10:30:00 10:30:00 ity [facility] 2020-09-18 2020-09-18 Outpatient STLMLC STLMLC [id number] Common 00:00:00 00:00:00 [facility] 2020-09-18 2020-09-18 Outpatient STLMLC STLMLC [id number] Common 00:00:00 00:00:00 [facility] 2020-06-20 2020-06-20 Nurse Nurse, [facility] 1.2.840.114 [id number] Univers 15:33:56 16:03:49 Visit Gustabo Brock Vincent Robbins 350.1.13.10 ity of [place] [phone] Sc dical [address] 2020-06-20 2020-06-20 Outpatient R [facility] [id number] Univers 15:30:00 15:30:00 ity [facility] 2020-04-10 2020-04-10 Telemedici Gustabo Brock [facility] 1..840.114 [id number] Univers 08:14:13 16:33:20 ne Visit Vincent Robbins 350.1.13.10 ity of [place] [phone] [address] 2020-04-10 2020-04-10 Outpatient R BROCK GUSTABO [facility] [id number] Univers 16:00:00 16:00:00 ity [facility] 2020-04-02 2020-04-02 [facility] [id number] Univers 15:00:00 15:00:00 [facility] 2020-03-23 2020-03-23 [facility] [id number] Univers 16:15:00 16:15:00 [facility] 2020-03-23 2020-03-23 Telemedici Ijeoma [facility] ..840.114 [id number] Univers 14:25:55 14:40:55 ne Visit Ela Robbins 350.1.13.10 ity of [place] [phone] Sc dic[address] 2020-03-23 2020-03-23 Telephone Gustabo Brock [facility] 1.2.840.114 [id number] Univers 00:00:00 00:00:00 Vincent Portia 350.1.13.10 i ty of [place].2.[place] [phone] Sc dical nal [address] [place] [address] 2020-03-19 2020-03-21 Hospital Gustabo Brock [facility] 1.2.840.114 [id number] Univers 12:26:00 15:25:00 Encounter Cam Portia 350.1.13.10 ity of [place] 4.[place].2.[place] [phone] [address] 2020-03-15 2020-03-15 Telephone Gustabo Brock [facility] 1.2.840.114 [id number] Univers 00:00:00 00:00:00 Cam Portia 350.1.13.10 i ty of [place] [phone] Sc dic[address] 2020-03-14 2020-03-14 Diagrammer And Seamer Ultrasound, [facility] 1.2 .840.114 [id number] Univers 15:05:58 15:59:38 Visit Javier Swann SURGICAL APPLIANCES SALESPERSON 350.1. 13.10 ity of Jhoana Ibarra [facility] 4.2.7.2.686 [place] MATERNAL [phone] Med ical & CHILD [address] [place] [address] 2020-03-14 2020-03-14 Outpatient P LEILA [facility] [id number] Univers 14:45:00 14:45:00 ALEAH it y of [place] Savage [facility] 2020-03-13 2020-03-13 Case Gustabo Brock [facility] 1.2.912.124 [id number] Univers 00:00:00 00:00:00 Management Cam Portia 350.1.13.10 ity of [place].2.[place] [phone] Sc dical nal [address] [place] [address] 2020-03-12 2020-03-12 [facility] Gustabo Brock [facility] 1.2.840.114 [id number] Univers 17:02:00 18:40:00 Encounter Cam Portia 350.1.13.10 ity of [place] 4[place].7.2.[place] [phone] [address] 2020-03-12 2020-03-12 Outpatient P GUSTABO BROCK [facility] GUDELIA [id number] Univers 17:02:00 18:40:00 ity [facility] 2020-03-12 2020-03-12 Telemedici Gustabo Brock [facility] 1.2.840.114 [id number] Univers 08:02:00 16:15:21 ne Visit Vincent Portia 350.1.13.10 ity [facility] 4[place]7.2.[place] [phone] [address] 2020-03-12 2020-03-12 Outpatient R GUSTABO BROCK [facility] [id number] Univers 15:45:00 15:45:00 ity [facility] 2020-03-07 2020-03-07 Diagrammer And Seamer Ultrasound, [facility] 1.2 .840.114 [id number] Univers 15:19:14 15:43:29 Visit Javier Swann SURGICAL APPLIANCES SALESPERSON 350.1. 13.10 ity Regino Tinoco [facility] 4.2.7.2.686 [facility] [phone] [facility] & CHILD [address] [place] [address] 2020-03-07 2020-03-07 Outpatient P LEILA [facility] [id number] Univers 15:15:00 15:15:00 ALEAH it y of [place] Savage [facility] 2020-03-05 2020-03-05 Telemedici Ladan [facility] 1.2.840.114 [id number] Univers 08:44:37 16:32:27 ne Visit Vincent Robbins 350.1.13.10 ity [facility] [place].2.[place] [phone] [address] 2020-03-05 2020-03-05 Outpatient R GUSTABO BROCK [facility] [id number] Univers 16:15:00 16:15:00 ity [facility] 2020-02-29 2020-02-29 Diagrammer And Seamer Ultrasound, [facility] 1.2 .840.114 [id number] Univers 15:13:41 15:54:46 Visit Dee Koutrouvelis, Herrera SURGICAL APPLIANCES SALESPERSON 350.1. 13.10 ity of [facility] 4.2.7.2.686 [place] MATERNAL [phone] Med ical & CHILD [address] [place] [address] 2020-02-29 2020-02-29 Outpatient P LEILA [facility] [id number] Univers 15:15:00 15:15:00 KOSALLYOUVELI it y of S, HERRERA [facility] 2020-02-27 2020-02-28 Diagrammer And Seamer 2, Adc Lab [facility] 1.2.840.114 [id number] Univers 14:38:56 00:38:50 Visit Delmy Gustaboperlita Robbins 350.1.13.10 ity of [place] 4.2.7.2.[place] [phone] Sc dical nal [address] [facility] 2020-02-27 2020-02-27 Routine Gustabo Brock [facility] 1.2.816.481 [id number] Univers 15:35:56 16:05:04 Vincent Robbins 350.1.13.10 ity of [place] 4.2.7.2.[place] [phone] Me dical nal [address] [facility] 2020-02-27 2020-02-27 Outpatient R GUSTABO BROCK [facility] [id number] Univers 15:30:00 15:30:00 ity of [facility] 2020-02-27 2020-02-27 Orders Doctor [place] 1.2.840.114 [id number] Univers 00:00:00 00:00:00 Only Unassigned, CHETNA 350.1.13.[address] [place] [facility] 4.2.7.2.686 [place] as [phone] [address] 2020-02-24 2020-02-24 Telephone Gustabo Brock [facility] 1.2.840.114 [id number] Univers 00:00:00 00:00:00 Vincent Robbins 350.1.13.10 i ty of [place] 4[place].7.2.[place] [phone] Sc dical nal [address] [facility] 2020-02-22 2020-02-22 Diagrammer And Seamer Ultrasound, BernardaMfbryce [facility] 1.2 .840.114 [id number] Univers 15:09:08 15:39:08 Visit Javier Swann SURGICAL APPLIANCES SALESPERSON 350.1. 13.10 ity of [facility] 4.2.7.2.686 [place] MATERNAL [phone] [facility] & CHILD [address] [place] [address] 2020-02-22 2020-02-22 Outpatient P [facility] [id number] Univers 15:15:00 15:15:00 KOUTROUVELI it y of [place] [facility] 2020-02-17 2020-02-17 Telephone Gustabo Brock [facility] 1.2.840.114 [id number] Univers 00:00:00 00:00:00 Cam Portia 350.1.13.10 i ty of [place] 4.2.7.2.[place] [phone] Sc dic[address] 2020-02-16 2020-02-16 Orders Doctor BURRIS 1.2.840.114 [id number] Univers 00:00:00 00:00:00 Only Unassigned, CHETNA 350.1.13.[address] [place] [facility] 4.2.7.2.686 [place] [phone] [address] 2020-02-15 2020-02-15 Diagrammer And Seamer Ultrasound, [facility] 1.2 .840.114 [id number] Univers 15:19:08 15:49:08 Visit Javier Swann SURGICAL APPLIANCES SALESPERSON 350.1. 13.10 ity of REG[facility]AL 4.2.7.2.686 [place] MATERNAL [phone] [facility] & CHILD [address] [place] [address] 2020-02-15 2020-02-15 Outpatient P DEE [facility] [id number] Univers 15:15:00 15:15:00 KOUTROUVELI it y of [facility] 2020-02-14 2020-02-14 Telephone Gustabo Brock [facility] 1.2.840.114 [id number] Univers 00:00:00 00:00:00 Cam Portia 350.1.13.10 i ty of [place] 4[place].7.2.[place] [phone] Sc dic[address] 2020-02-09 2020-02-10 Telemedici Room, [facility] 1.2.84 0.114 [id number] Univers 14:32:03 06:20:13 ne Visit Gustabo Brock Vincent Robbins 350.1.13.10 ity of [place] 4[place]2.7.2.[place] [phone] Sc dical [address] 2020-02-10 2020-02-10 Telephone Gustabo Brock [facility] 1.2.840.114 [id number] Univers 00:00:00 00:00:00 Vincent Robbins 350.1.13.10 i ty of [place] 4[place].2.[place] [phone] Sc dical nal [address] [place] [address] 2020-02-09 2020-02-09 Outpatient R [facility] [id number] Univers 15:00:00 15:00:00 ity of [facility] 2020-02-08 2020-02-08 Outpatient R GUSTABO BROCK [facility] [id number] Univers 16:15:00 16:15:00 ity of [facility] 2020-02-08 2020-02-08 Diagrammer And Seamer Ultrasound, [facility] 1.2 .840.114 [id number] Univers 15:10:44 15:40:44 Visit Javier Swann SURGICAL APPLIANCES SALESPERSON 350.1. 13.10 ity of [facility] 4.2.7.2.686 [place] MATERNAL [phone] Med ical & CHILD [address] [place] [address] 2020-02-08 2020-02-08 Outpatient P LEILA [facility] [id number] Univers 15:15:00 15:15:00 ALEAH it y of S [facility] 2020-02-06 2020-02-06 Routine Room, [facility] 1.2.840.1 14 [id number] Univers 15:12:43 15:55:07 Gustabo Brock Portia 350.1.13.10 ity of [place].2.[place] [phone] Sc dical nal [address] [place] [address] 2020-02-06 2020-02-06 Outpatient R [facility] [id number] Univers 15:00:00 15:00:00 ity of [facility] 2020-02-02 2020-02-02 Routine Room, [facility] 1.2.840.1 14 [id number] Univers 15:04:44 16:05:00 Gustabo Brock Ros[place] 350.1.13.10 ity of [place].2.[place] [phone] [address] 2020-02-02 2020-02-02 Outpatient R [facility] [id number] Univers 15:00:00 15:00:00 ity of [facility] 2020-02-01 2020-02-01 Outpatient P [facility] [id number] Univers 15:00:00 15:00:00 ALEAH it y of [place] [facility] 2020-02-01 2020-02-01 Diagrammer And Seamer Ultrasound, [facility] 1.2 .840.114 [id number] Univers 14:17:27 14:41:33 Visit Javier Swann SURGICAL APPLIANCES SALESPERSON 350.1. 13.10 ity of Regino Tinoco [facility] 4.2.7.2.686 [place] MATERNAL [phone] Med ical & CHILD [address] [place] [address] 2020-02-01 2020-02-01 Outpatient P LEILA [facility] [id number] Univers 14:15:00 14:15:00 ALEAH it y of [place] [facility] 2020-02-01 2020-02-01 Telephone Delmy Gustabo [facility] 1.2.840.114 [id number] Univers 00:00:00 00:00:00 Vincent Robbins 350.1.13.10 i ty of [place] 4[place].2.[place] [phone] [address] 2020-01-29 2020-01-29 [facility] 1.2.840.114 [id number] Univers 05:23:00 08:53:00 Encounter Carl Robbins 350.1.13.10 ity of [place] 4.2.7.2.[place] [phone] [facility] 083 [place] 2020-01-29 2020-01-29 Orders Doctor DAY[place] 1.2.840.114 [id number] Univers 00:00:00 00:00:00 Only Unassigned, CHETNA 350.1.13.[address] [place] [facility] 4.2.7.2.686 [place] as [phone] [facility] 009 [place] 2020-01-25 2020-01-25 Diagrammer And Seamer Ultrasound, [facility] 1.2 .840.114 [id number] Univers 08:40:35 09:02:56 Visit Leila Margot Javier SURGICAL APPLIANCES SALESPERSON 350.1. 13.10 ity of [facility] 4.2.7.2.686 [place] MATERNAL [phone] Med ical & CHILD [address] [place] [address] 2020-01-25 2020-01-25 Outpatient P LEILA [facility] [id number] Univers 08:30:00 08:30:00 ALEAH it y of [place] [facility] 2020-01-24 2020-01-24 Routine Brock, Gustabo Vincent [facility] 1.2.840.114 [id number] Univers 13:56:02 14:37:56 Ela Raphael 350.1.13.10 ity of [place] 4.2.7.2.[place] [phone] Sc dical nal [address] [place] [address] 2020-01-24 2020-01-24 Outpatient R IJEOMA [facility] [id number] Univers 13:45:00 13:45:00 ELA blount [facility] 2020-01-20 2020-01-20 Routine Ijeoma [facility] 1.2.018.913 [id number] Univers 10:22:02 10:57:08 Ela Robbins 350.1.13.10 ity of [place] 4.2.7.2.[place] [phone] Sc dical [address] 2020-01-20 2020-01-20 Outpatient R IJEOMA [facility] [id number] Univers 10:15:00 10:15:00 ELA blount [facility] 2020-01-17 2020-01-18 Outpatient P LEILA [facility] GUDELIA [id number] Univers 11:25:00 16:20:00 ALEAH it y of [place] [facility] 2020-01-17 2020-01-18 [facility] Gustabo Brock [place] 1.2.840.114 [id number] Univers 11:25:00 16:20:00 Encounter Anders Yanes CHETNA 350.1.13 .10 ity of Javier Swann [place] 4.2.7.2. 686 [place] [phone] [facility] 070 [place] 2020-01-18 2020-01-18 Diagrammer And Seamer 5, [facility] Us Room UN[facility]ERSIT 1 .2.840.114 [id number] Univers 10:08:04 10:40:40 Visit Anders Yanes [facility] 350.1.13. 10 ity of [place].2.[place] [phone] [facility] 104 [place] 2020-01-17 2020-01-17 Telephone Gustabo Brock [facility] 1.2.840.114 [id number] Univers 00:00:00 00:00:00 Cam Rosendo 350.1.13.10 i ty of [place] 4[place]2.7.2.[place] [phone] Sc dical nal [address] [facility] 2020-01-16 2020-01-16 Outpatient R IJEOMA, [facility] [id number] Univers 16:15:00 16:15:00 ELA ity of [facility] 2020-01-09 2020-01-09 [facility] Gustabo Brock [facility] 1.2.840.114 [id number] Univers 16:46:00 20:10:00 Encounter Vincent Robbins 350.1.13.10 ity of [place] 4.2.7.2.[place] [phone] [facility] 083 [place] 2020-01-09 2020-01-09 Routine Gustabo Brock [facility] 1.2.739.113 [id number] Univers 16:01:45 16:32:38 Cam Portia 350.1.13.10 ity of [place] 4.2.7.2.[place] [phone] Sc dical nal [address] [place] [address] 2020-01-09 2020-01-09 Outpatient R GUSTABO BROCK [facility] [id number] Univers 15:45:00 15:45:00 ity of [facility] 2020-01-09 2020-01-09 Telephone Gustabo Brock [facility] 1.2.840.114 [id number] Univers 00:00:00 00:00:00 Vincent Robbins 350.1.13.10 i ty of [place] 4.[place].7.2.[place] [phone] Sc dical nal [address] [place] [address] 2020-01-09 2020-01-09 Orders Doctor [place] 1.2.840.114 [id number] Univers 00:00:00 00:00:00 Only Unassigned, CHETNA 350.1.13.10 ity of [place] [facility] 4.2.7.2.686 [place] [phone] [address] 2019-12-29 2019-12-29 Telephone [facility] 1.2.840.114 [id number] Univers 00:00:00 00:00:00 Ela Robbins 350.1.13.10 i ty of [place] 4[place].2.[place] [phone] Sc dicmd nal [address] [place] [address] 2019-12-19 2019-12-19 Routine Gustabo Brock [facility] 1.2.161.756 [id number] Univers 16:24:31 17:08:17 Vincent Robbins 350.1.13.10 ity of [place] 4[place].7.2.[place] [phone] Sc dical nal [address] [place] [address] 2019-12-19 2019-12-19 Orders Doctor [place] 1.2.840.114 [id number] Univers 00:00:00 00:00:00 Only Unassigned, CHETNA 350.1.13.10 ity of [place] [facility] 4.2.7.2.686 [place] [phone] [address] 2019-07-29 2019-07-29 Nurse Nurse, [facility] 1.2.840.114 [id number] Univers 14:42:27 16:13:55 Visit Gustabo Brock 350.1.13.10 ity of [place] 4.2.7.2.686 Gabriele savage Brisa [phone] Sc dical nal [address] [facility] 2019-07-29 2019-07-29 Orders Doctor [place] 1.2.840.114 [id number] Univers 00:00:00 00:00:00 Only Unassigned, CHETNA 350.1.13.[address] [place] [facility] 4.2.7.2.686 [place] [phone] [address] Results Test Description Test Time Test Comments Results Result Comments Source POCT TEST 2023-01-12 01:47:00 Test Item Value Reference Range Interpretation Comme nts POCT PREG (test code = 1605) negative On board controls acceptable with C Line (test code = 3574) present POCT PREG LOT # (test code = 3575) [id number] POCT PREG TEST DATE (test code = 3576) 2024-04-15 Lab Interpretation (test code = 45567-3) [id number] 14:27:00 Test Item Value Reference Range Interpretation Comments POCT PREG (test code = 1605) NEGATIVE On board controls acceptable with present C Line (test code = 3574) POCT PREG LOT # (test code = 3575) [id number] POCT PREG TEST DATE (test 02/14/2024 code = 3576) Lab Interpretation (test code = Normal 50565-3) [facility] [id number] 21:29:00 Test Item Value Reference Range Interpretation Comments POCT PREG (test code = 1605) Negative On board controls acceptable with C Yes Line (test code = 3574) POCT PREG LOT # (test code = 3575) POCT PREG TEST DATE (test code = 3576) [facility] [id number] 21:29:00 Test Item Value Reference Range Interpretation Comments POCT PREG (test code = 1605) Negative On board controls acceptable with C Yes Line (test code = 3574) POCT PREG LOT # (test code = 3575) POCT PREG TEST DATE (test code = 3576) [facility] with [id number] 09:44:25 Test Item Value Reference Range Interpretation [...] RDW-SD (test code = 39.0 fL 39-49.9 63441-6) RDW-CV (test code = 12.2 % 12-15.5 788-0) PLT (test code = See_Comment L [Automated 777-3) message] The sy stem which generated this result transmitted reference range : 166 - 358 10*3/ ?L. The reference r tawny was not used to interpret this result as normal/abnormal . MPV (test code = 12.4 fL 9.5-12.9 79228-8) NRBC/100 WBC (test See_Comment [Automat ed code = 2205418752) message] The system which generated this result transmitted reference range : 0.0 - 10.0 /100 WBCs. The refer ence range was not u sed to interpret th is result as normal/abnormal . NRBC x10^3 (test code See_Comment [Auto mated = 7692079821) message] The s ystem which generated this result transmitted reference range : 10*3/?L. The reference range was not used to interpret this result as normal/abnormal . GRAN MAT (NEUT) % 56.9 % (test code = 770-8) IMM GRAN % (test code 0.40 % = 0553459317) LYMPH % (test code = 32.6 % 736-9) MONO % (test code = 7.8 % 5905-5) EOS % (test code = 2.1 % 713-8) BASO % (test code = 0.2 % 706-2) GRAN MAT x10^3(ANC) 6.42 10*3/uL 1.88-7.09 (test code = 9906644505) IMM GRAN x10^3 (test 0.05 10*3/uL 0-0.06 code = 8116198398) LYMPH x10^3 (test code 3.68 10*3/uL 1.32-3.29 H = 731-0) MONO x10^3 (test code 0.88 10*3/uL 0.33-0.92 = 742-7) EOS x10^3 (test code = 0.24 10*3/uL 0.03-0.39 711-2) BASO x10^3 (test code 0.01-0.07 = 704-7) Lab Interpretation Abnormal (test code = 93118-7) [facility] IMMUNE [id number] 22:11:29 Test Item Value Reference Range Interpretation Comments RHIG CANDIDATE? No- see comment Patient i s not a (test code = candidate for R hIg- 5055) Patient is Rh Positive.Perfor med at [facility] Laboratory Services - [facility] Blood [address] [place], [place] [address]Toll Free: [phone] A No. [id number] [facility] and Screen - ONCE [id number] 19:20:41 Test Item Value Reference Range Interpretation Comments ABO & RH (test code O Positive Performe d at [facility] = 20) Laboratory Serv [facility] Blood Bank[address] [place], [place] [address]Toll Free: [phone] A No. [id number] IAT (test code = Negative Performed a t [facility] 1185) Laboratory Serv [facility] [place], [place] [id number] Free: [phone] A No. [id number] [facility] W/O SPECIFIC [id number] 16:37:00 Test Item Value Reference Range Interpretation [...] code = 3257) n/a Negative - Negative [facility]/O SPECIFIC [id number] 20:37:00 Test Item Value Reference Range Interpretation [...] code = 3257) n/a Negative - Negative [facility]/O SPECIFIC [id number] 19:10:00 Test Item Value Reference Range Interpretation [...] code = 3257) Negative Negative - Negative [facility]/O SPECIFIC [id number] 18:32:00 Test Item Value Reference Range Interpretation [...] code = 3257) n/a Negative - Negative [facility] URINALYSIS W/O SPECIFIC [id number] 20:11:00 Test Item Value Reference Range Interpretation [...] code = 3257) n/a Negative - Negative [facility] URINALYSIS W/O SPECIFIC [id number] 15:16:00 Test Item Value Reference Range Interpretation [...] 3257) n/a Negative [facility] [id number] 18:07:00 Test Item Value Reference Range Interpretation [...] code = 3257) n/a Negative - Negative [facility] URINALYSIS W/O SPECIFIC [id number] 16:20:00 Test Item Value Reference Range Interpretation [...] code = 3257) N/A Negative - Negative [facility] URINALYSIS W/O SPECIFIC [id number] 16:23:00 Test Item Value Reference Range Interpretation [...] 3257) negative Negative - [facility] [id number] 15:48:00 Test Item Value Reference Range Interpretation [...] code = 3257) N/A Negative - Negative [facility] [id number] 15:48:00 Test Item Value Reference Range Interpretation Comments POCT PREG (test code = 1605) Positive On board controls acceptable with C Yes Line (test code = 3574) POCT PREG LOT # (test code = 3575) POCT PREG TEST DATE (test code = 3576) [facility] [id number] 00:00:00 Test Item Value Reference Range Interpretation Comments Result (test code = 06981-3) Negative XR RIBS 4+ VW [id number] 06:28:07 No radiographic evidence for acute cardiopulmonary disease. No left rib fracture identified. RL: 460 AFC: [id number] Ordering physician: ELSA CAR INDICATION: Left chest [...] cardiopulmonary disease.No left rib fracture identified.RL: 460AFC: [id number] signed by Celia Arriola MD, PhD at 02/21/2021 1:28 AMUn[facility] CampusD-[id number] 05:35:13 Test Item Value Reference Interpretation Comments Range D-DIMER (test code = <0.27 See_Comment [Autom ated 9944153449) message] The system which generated this result [...] diagnosis. Lab Interpretation Normal (test code = 16195-2) [facility]MINAL [id number] 05:20:34 Test Item Value Reference Range Interpretation Comments NT-proBNP (test code <11 See_Comment [Autom ated = 0494269914) message] The system which generated this result transmitted reference range : <=125 pg/mL. e reference range was not used to interpret this result as normal/abnormal . DENYS (test code = DENYS) Biotin has been reported to cause a negative bias, interpret results relative to patient's use of biotin. Lab Interpretation Normal (test code = 15271-0) [facility]21-[facility]-08 02:07:19 Test Item Value Reference Range Interpretation Comments APPEARANCE (test code = Hazy Clear A 0444407710) COLOR (test code = Straw Yellow A 8015335180) PH (test code = 4.8-8.0 5357990169) SP GRAVITY (test code = 1.003-1.030 8683318535) GLU U QUAL (test code = Normal Normal 1177572351) BLOOD (test code = Negative Negative 4035848942) KETONES (test code = 5 mg/dL Negative A 3955255732) PROTEIN (test code = Negative Negative 2887-8) UROBILIN (test code = Normal Normal 0827744806) BILIRUBIN (test code = Negative Negative 9115260732) NITRITE (test code = Negative Negative 0156300991) LEUK ALEKSANDER (test code = 75/uL Negative A 2667238509) RBC/HPF (test code = See_Comment H [Autom ated message] 9433896756) The system Influx generated this result transmitted ref erence range: 0 - 3 HP F. The reference range was not used to int erpret this result as normal/abnormal . WBC/HPF (test code = See_Comment H [Autom ated message] 4611613683) The system Influx generated this result transmitted ref erence range: 0 - 5 HP F. The reference range was not used to int erpret this result as normal/abnormal . BACTERIA (test code = Few Negative A 4285588495) SQ EPITH (test code = HPF 5551972878) Lab Interpretation (test Abnormal code = 95393-2) [facility] [id number] 01:40:00 Test Item Value Reference Range Interpretation Comments POCT PREG (test code = 1605) NEG On board controls acceptable with YES C Line (test code = 3574) POCT PREG LOT # (test code = 3575) [id number] POCT PREG TEST DATE (test 07/16/2022 code = 3576) Lab Interpretation (test code = Normal 64577-8) [facility] WITH [id number] 06:36:00 Test Item Value Reference Range Interpretation [...] RDW-SD (test code = 47.6 fL 39-49.9 03320-5) RDW-CV (test code = 14.1 % 12-15.5 788-0) PLT (test code = See_Comment L [Automated 777-3) message] The sy stem which generated this result transmitted reference range : 166 - 358 10*3/ ?L. The reference r tawny was not used to interpret this result as normal/abnormal . MPV (test code = 12.7 fL 9.5-12.9 05649-1) NRBC/100 WBC (test See_Comment [Automat ed code = 6368536311) message] The system which generated this result transmitted reference range : 0.0 - 10.0 /100 WBCs. The refer ence range was not u sed to interpret th is result as normal/abnormal . NRBC x10^3 (test code <0.01 See_Comment [Auto mated = 1463066063) message] The s ystem which generated this result transmitted reference range : 10*3/?L. The reference range was not used to interpret this result as normal/abnormal . GRAN MAT (NEUT) % 64.5 % (test code = 770-8) IMM GRAN % (test code 0.50 % = 0398060772) LYMPH % (test code = 26.6 % 736-9) MONO % (test code = 5.7 % 5905-5) EOS % (test code = 2.5 % 713-8) BASO % (test code = 0.2 % 706-2) GRAN MAT x10^3(ANC) 8.20 10*3/uL 1.88-7.09 H (test code = 2300857837) IMM GRAN x10^3 (test 0.07 10*3/uL 0-0.06 H code = 6973415576) LYMPH x10^3 (test code 3.39 10*3/uL 1.32-3.29 H = 731-0) MONO x10^3 (test code 0.72 10*3/uL 0.33-0.92 = 742-7) EOS x10^3 (test code = 0.32 10*3/uL 0.03-0.39 711-2) BASO x10^3 (test code 0.03 10*3/uL 0.01-0.07 = 704-7) Lab Interpretation Abnormal (test code = 15815-3) [facility] IMMUNE [id number] 16:58:51 Test Item Value Reference Range Interpretation Comments RHIG CANDIDATE? No- see comment Patient i s not a (test code = candidate for R hIg- 5055) Patient is Rh Positive.Perfor med at [facility] Laboratory Services - [facility] Blood [address] [place] [address]Cfag Free: [phone] A No. [id number] [facility] SouthVenous Cord [id number] 14:44:00 Test Item Value Reference Range Interpretation Comments VENOUS BASE EXCESS, mEq/L CORD (test code = 9816223453) VENOUS PH, CORD (test 7.25-7.45 code = 0099785065) VENOUS PC02, CORD See_Comment [Automate d message] The (test code = system which ge nerated 8907541750) this result tra nsmitted reference range : 27 - 49 mmHg. The refer ence range was not used to interpret this result as normal/abnormal . VENOUS PO2, CORD (test See_Comment [Aut omated message] The code = 9151723610) system [facility] generated this result tra nsmitted reference range : 17 - 41 mmHg. The refer ence range was not used to interpret this result as normal/abnormal . VENOUS BICARBONATE, See_Comment [Automa trish message] The CORD (test code = system whi ch generated 4843489819) this result tra nsmitted reference range : 12 - 29 mEq/L. The refe rence range was not used to interpret this result as normal/abnormal . [facility] SouthArter[facility] Cord [id number] 14:41:00 Test Item Value Reference Range Interpretation Comments BASE EXCESS, CORD (test mEq/L code = 4916130009) AC PH, CORD (BEAKER) 7.18-7.38 L (test code = 4699596172) PC02, CORD (test code = See_Comment [Au tomated message] 3696960481) The system [employer] generated this result transmitted ref erence range: 32 - 66 mmHg. The reference r tawny was not used to interpret this result as normal/abnor mal. PO2, CORD (test code = See_Comment [Aut omated message] 0940261383) The system whic h generated this result transmitted ref erence range: 10 - 30 mmHg. The reference r tawny was not used to interpret this result as normal/abnor mal. BICARBONATE, CORD (test See_Comment [Au tomated message] code = 3735728742) The syste m which generated this result transmitted ref erence range: 17 - 27 mEq/L. The reference r tawny was not used to interpret this result as normal/abnor mal. Lab Interpretation (test Abnormal code = 92356-6) [facility] OR JOSUE ONLY - [id number] 06:43:00 Test Item Value Reference Range Interpretation Comments RPR (Qualitative) (test code = Nonreactive Nonreactive 69760-5) Lab Interpretation (test code = Normal 58392-9) [facility] SouthHepatitis B Surface [id number] 05:22:00 Test Item Value Reference Range Interpretation Comments HBsAg Semi-Quantitative (test code = Negative Negative 5195-3) [facility]HIV 1/2 AG-AB WITH [id number] 19:48:00 Test Item Value Reference Range Interpretation Comments HIV Negative Negative Semi-quantitative (test code = 25154-8) DENYS (test code = Non-reactive for HIV-1 DENYS) antigen and HIV-1/HIV-2 antibodies. ?No laboratory evidence of HIV infection. ?Repeat in 2-4 weeks if acute HIV infection is suspected. [facility] SouthCORONAVIRUS COVID-19 [id number] 19:37:00 Test Item Value Reference Range Interpretation Comments SARS-CoV-2 (test code = Not Detected Not Detected 65396-3) DENYS (test code = DENYS) ID NOW COVID-19 Assay is an isothermal nucleic acid amplification test intended for the qualitative detection of nucleic acid from SARS-CoV-2 viral RNA in nasopharyngeal (REFUELER) specimens. It is used under Emergency Use [...] indicated. Lab Interpretation Normal (test code = 35967-3) [facility] SouthType and Screen - ONCE [id number] 19:11:56 Test Item Value Reference Range Interpretation Comments ABO & RH (test code O Positive Performe d at [facility] = 20) Laboratory Serv [facility] Blood Bank[address] [place], [place] [address]Toll Free: [phone] A No. [id number] IAT (test code = Negative Performed a t [facility] 1185) Laboratory Serv [facility] Blood [facility] [place], [place] [address]Toll Free: [phone] A No. [id number] [facility]CBC WITH [id number] 18:39:00 Test Item Value Reference Range Interpretation [...] RDW-SD (test code = 45.4 fL 39-49.9 37799-1) RDW-CV (test code = 13.8 % 12-15.5 788-0) PLT (test code = See_Comment [Automated 777-3) message] The sy stem which generated this result transmitted reference range : 166 - 358 10*3/ ?L. The reference r tawny was not used to interpret this result as normal/abnormal . MPV (test code = 12.3 fL 9.5-12.9 10090-8) NRBC/100 WBC (test See_Comment [Automat ed code = 5276719972) message] The system which generated this result transmitted reference range : 0.0 - 10.0 /100 WBCs. The refer ence range was not u sed to interpret th is result as normal/abnormal . NRBC x10^3 (test code <0.01 See_Comment [Auto mated = 7214071385) message] The s ystem which generated this result transmitted reference range : 10*3/?L. The reference range was not used to interpret this result as normal/abnormal . GRAN MAT (NEUT) % 68.3 % (test code = 770-8) IMM GRAN % (test code 0.90 % = 5110501426) LYMPH % (test code = 21.3 % 736-9) MONO % (test code = 6.5 % 5905-5) EOS % (test code = 2.8 % 713-8) BASO % (test code = 0.2 % 706-2) GRAN MAT x10^3(ANC) 6.52 10*3/uL 1.88-7.09 (test code = 1054808140) IMM GRAN x10^3 (test 0.09 10*3/uL 0-0.06 H code = 3806208412) LYMPH x10^3 (test code 2.04 10*3/uL 1.32-3.29 = 731-0) MONO x10^3 (test code 0.62 10*3/uL 0.33-0.92 = 742-7) EOS x10^3 (test code = 0.27 10*3/uL 0.03-0.39 711-2) BASO x10^3 (test code <0.03 0.01-0.07 = 704-7) Lab Interpretation Abnormal (test code = 42092-8) [facility] [id number] 22:17:00 Test Item Value Reference Range Interpretation Comments GLUC 1 HR (test code = 6287394445) 128 mg/dL 120-170 Lab Interpretation (test code = Normal 19837-0) [facility] HOUR POST [id number] 22:17:00 Test Item Value Reference Range Interpretation Comments GLUC 1 HR (test code = 1357510946) 128 mg/dL 120-170 Lab Interpretation (test code = Normal 21938-2) [facility]CBC WITH [id number] 21:45:00 Test Item Value Reference Range Interpretation [...] RDW-SD (test code = 42.2 fL 39-49.9 66634-7) RDW-CV (test code = 12.6 % 12-15.5 788-0) PLT (test code = See_Comment [Automated 777-3) message] The sy stem which generated this result transmitted reference range : 166 - 358 10*3/ ?L. The reference r tawny was not used to interpret this result as normal/abnormal . MPV (test code = 12.7 fL 9.5-12.9 11951-6) NRBC/100 WBC (test See_Comment [Automat ed code = 5768248423) message] The system which generated this result transmitted reference range : 0.0 - 10.0 /100 WBCs. The refer ence range was not u sed to interpret th is result as normal/abnormal . NRBC x10^3 (test code <0.01 See_Comment [Auto mated = 2439875423) message] The s ystem which generated this result transmitted reference range : 10*3/?L. The reference range was not used to interpret this result as normal/abnormal . GRAN MAT (NEUT) % 69.9 % (test code = 770-8) IMM GRAN % (test code 0.70 % = 7098181557) LYMPH % (test code = 19.8 % 736-9) MONO % (test code = 6.1 % 5905-5) EOS % (test code = 3.3 % 713-8) BASO % (test code = 0.2 % 706-2) GRAN MAT x10^3(ANC) 6.81 10*3/uL 1.88-7.09 (test code = 0720486077) IMM GRAN x10^3 (test 0.07 10*3/uL 0-0.06 H code = 0060498443) LYMPH x10^3 (test code 1.93 10*3/uL 1.32-3.29 = 731-0) MONO x10^3 (test code 0.59 10*3/uL 0.33-0.92 = 742-7) EOS x10^3 (test code = 0.32 10*3/uL 0.03-0.39 711-2) BASO x10^3 (test code <0.03 0.01-0.07 = 704-7) Lab Interpretation Abnormal (test code = 61163-9) [facility] WITH [id number] 21:45:00 Test Item Value Reference Range Interpretation Comments WBC (test code = See_Comment [Automated 7490-2) message] The sy stem which generated this result transmitted reference range : 4.30 - 11.10 10*3/?L. The reference range was not used to interpret this result as normal/abnormal . RBC (test code = See_Comment L [Automated 469-8) message] The sy stem which generated this [...] RDW-SD (test code = 42.2 fL 39-49.9 24912-7) RDW-CV (test code = 12.6 % 12-15.5 788-0) PLT (test code = See_Comment [Automated 777-3) message] The sy stem which generated this result transmitted reference range : 166 - 358 10*3/ ?L. The reference r tawny was not used to interpret this result as normal/abnormal . MPV (test code = 12.7 fL 9.5-12.9 33793-2) NRBC/100 WBC (test See_Comment [Automat ed code = 9543614059) message] The system which generated this result transmitted reference range : 0.0 - 10.0 /100 WBCs. The refer ence range was not u sed to interpret th is result as normal/abnormal . NRBC x10^3 (test code <0.01 See_Comment [Auto mated = 5845562052) message] The s ystem which generated this result transmitted reference range : 10*3/?L. The reference range was not used to interpret this result as normal/abnormal . GRAN MAT (NEUT) % 69.9 % (test code = 770-8) IMM GRAN % (test code 0.70 % = 4703151045) LYMPH % (test code = 19.8 % 736-9) MONO % (test code = 6.1 % 5905-5) EOS % (test code = 3.3 % 713-8) BASO % (test code = 0.2 % 706-2) GRAN MAT x10^3(ANC) 6.81 10*3/uL 1.88-7.09 (test code = 9515261477) IMM GRAN x10^3 (test 0.07 10*3/uL 0-0.06 H code = 3704976044) LYMPH x10^3 (test code 1.93 10*3/uL 1.32-3.29 = 731-0) MONO x10^3 (test code 0.59 10*3/uL 0.33-0.92 = 742-7) EOS x10^3 (test code = 0.32 10*3/uL 0.03-0.39 711-2) BASO x10^3 (test code <0.03 0.01-0.07 = 704-7) Lab Interpretation Abnormal (test code = 46803-5) [facility] NON-STRESS [id number] 21:09:08 Reactive and reassuring [place] quiescent Gustabo Brock MD ?02/06/2020 ?4:08 PM [facility] URINALYSIS W/O SPECIFIC [id number] 20:26:00 Test Item Value Reference Range Interpretation [...] code = 3257) N/A Negative - Negative [facility] NON-STRESS [id number] 13:50:27 Reactive and reassuringToco quiescent Gustabo Brock MD ?02/03/2020 ?8:50 AM [facility] ONLY - FERN [id number] 13:39:00 Test Item Value Reference Range Interpretation Comments Fern Test (test code = 0921393422) Negative [facility] URINALYSIS W/O SPECIFIC [id number] 19:29:00 Test Item Value Reference Range Interpretation [...] Negative Lab Interpretation (test code = Normal 57702-0) [facility] W/O SPECIFIC [id number] 16:47:00 Test Item Value Reference Range Interpretation [...] code = 3257) n/a Negative - Negative [facility] SouthGC & CHLAMYDIA AMPLIFIED [id number] 19:06:00 Test Item Value Reference Range Interpretation Comments C. trachomatis Nucleic Acid (test Negative Negative code = 29690-1) N. gonorrhoeae Nucleic Acid (test Negative Negative code = 51890-5) Lab Interpretation (test code = Normal 43818-6) [facility] SouthType [facility] Screen - ONCE [id number] 08:41:50 Test Item Value Reference Range Interpretation Comments ABO & RH (test code O POSITIVE Performe d at [facility] = 20) Laboratory Serv [facility] Blood Bank3 [facility] s [address]Ujgn Free: [phone] A No. [id number] IAT (test code = Negative Performed a t [facility] 1185) Laboratory Serv [facility] Blood Bank3 [facility] s [address]Gbai Free: [phone] A No. [id number] [facility]Type [facility] Screen - ONCE [id number] 21:54:06 Test Item Value Reference Range Interpretation Comments ABO & RH (test code O Positive Performe d at [facility] = 20) Laboratory Serv [facility] Blood Bank[address] [place], [place] [address]Toll Free: [phone] A No. [id number] IAT (test code = Negative Performed a t [facility] 1185) Laboratory Serv [facility] [address] [place], [place] [address]Toll Free: [phone] A No. [id number] [facility] WITH [id number] 20:52:00 Test Item Value Reference Range Interpretation Comments WBC (test code = See_Comment [Automated 2292-2) message] The sy stem which generated this result transmitted reference range : 4.30 - 11.10 10*3/?L. The reference range was not used to interpret this result as normal/abnormal . RBC (test code = See_Comment L [Automated 549-8) message] The sy stem which generated this [...] RDW-SD (test code = 39.8 fL 39-49.9 10951-2) RDW-CV (test code = 12.2 % 12-15.5 788-0) PLT (test code = See_Comment [Automated 777-3) message] The sy stem which generated this result transmitted reference range : 166 - 358 10*3/ ?L. The reference r tawny was not used to interpret this result as normal/abnormal . MPV (test code = 12.4 fL 9.5-12.9 01923-5) NRBC/100 WBC (test See_Comment [Automat ed code = 3102881684) message] The system which generated this result transmitted reference range : 0.0 - 10.0 /100 WBCs. The refer ence range was not u sed to interpret th is result as normal/abnormal . NRBC x10^3 (test code <0.01 See_Comment [Auto mated = 9685094759) message] The s ystem which generated this result transmitted reference range : 10*3/?L. The reference range was not used to interpret this result as normal/abnormal . GRAN MAT (NEUT) % 64.8 % (test code = 770-8) IMM GRAN % (test code 0.80 % = 7491727576) LYMPH % (test code = 21.8 % 736-9) MONO % (test code = 7.8 % 5905-5) EOS % (test code = 4.6 % 713-8) BASO % (test code = 0.2 % 706-2) GRAN MAT x10^3(ANC) 6.68 10*3/uL 1.88-7.09 (test code = 1045432772) IMM GRAN x10^3 (test 0.08 10*3/uL 0-0.06 H code = 1994160454) LYMPH x10^3 (test code 2.24 10*3/uL 1.32-3.29 = 731-0) MONO x10^3 (test code 0.80 10*3/uL 0.33-0.92 = 742-7) EOS x10^3 (test code = 0.47 10*3/uL 0.03-0.39 H 711-2) BASO x10^3 (test code <0.03 0.01-0.07 = 704-7) Lab Interpretation Abnormal (test code = 84473-2) [facility] PELVIS > 14 [id number] 19:57:58HISTORY: Leaking fluid. COMPARISON: None. TECHNIQUE: 4 [...] surrounding thebaby. JIM calculated is only 3.61 cm.[facility] CLC OR LCC ONLY - WET [id number] 18:46:00 Test Item Value Reference Range Interpretation Comments Wet Prep (test code = Few Epithelial cells 8790088461) [facility]2020[facility] 18:32:00 Test Item Value Reference Range Interpretation Comments APPEARANCE (test code = Hazy Clear A 0324829994) COLOR (test code = Yellow Yellow 9687265098) PH (test code = 4.8-8.0 9774653364) SP GRAVITY (test code = 1.003-1.030 2992673041) GLU U QUAL (test code = Normal Normal 2191311879) BLOOD (test code = Negative Negative 3051814583) KETONES (test code = Negative Negative 1335323821) PROTEIN (test code = Negative Negative 2887-8) UROBILIN (test code = Normal Normal 5258560165) BILIRUBIN (test code = Negative Negative 1624407416) NITRITE (test code = Negative Negative 8015669184) LEUK ALEKSANDER (test code = 250/uL Negative A 5731072770) RBC/HPF (test code = See_Comment [Autom ated message] 9317640690) The system Influx generated this result transmitted ref erence range: 0 - 3 HP F. The reference range was not used to int erpret this result as normal/abnormal . WBC/HPF (test code = See_Comment H [Autom ated message] 5145753604) The system Influx generated this result transmitted ref erence range: 0 - 5 HP F. The reference range was not used to int erpret this result as normal/abnormal . BACTERIA (test code = Few Negative A 1184507580) MUCOUS (test code = Moderate Negative LPF A 2319720289) SQ EPITH (test code = HPF 3829655693) Lab Interpretation (test Abnormal code = 67577-9) [facility] ONLY - FERN [id number] 18:11:00 Test Item Value Reference Range Interpretation Comments Fern Test (test code = 0435798498) Negative [facility]2020-[facility] 23:59:00 Test Item Value Reference Range Interpretation Comments APPEARANCE (test code = Hazy Clear A 0786145741) COLOR (test code = Yellow Yellow 0080360814) PH (test code = 4.8-8.0 3817842368) SP GRAVITY (test code = 1.003-1.030 6578621875) GLU U QUAL (test code = Normal Normal 0090489786) BLOOD (test code = Negative Negative INTERFERE NCE FROM 8749326460) ASCORBIC ACID M AY CAUSE FALSE NEG ATIVE RESULT KETONES (test code = Negative Negative 6892192356) PROTEIN (test code = Negative Negative 2887-8) UROBILIN (test code = Normal Normal 7656940272) BILIRUBIN (test code = Negative Negative 8569911921) NITRITE (test code = Negative Negative 8799822523) LEUK ALEKSANDER (test code = 250/uL Negative A 1956352334) RBC/HPF (test code = See_Comment [Autom ated message] 2223525585) The system Influx generated this result transmitted ref erence range: 0 - 3 HP F. The reference range was not used to int erpret this result as normal/abnormal . WBC/HPF (test code = See_Comment [Autom ated message] 3292934527) The system Influx generated this result transmitted ref erence range: 0 - 5 HP F. The reference range was not used to int erpret this result as normal/abnormal . BACTERIA (test code = Moderate Negative A 4328853880) MUCOUS (test code = Marked Negative LPF A 5094919272) SQ EPITH (test code = HPF 7170997625) Lab Interpretation (test Abnormal code = 26921-8) [facility] SouthCOMP. METABOLIC PANEL (30111)2020-01-09 23:51:00 Test Item Value Reference Range Interpretation Comments NA (test code = 137 mmol/L 135-145 0637245447) K (test code = 4.1 mmol/L 3.5-5 5427992481) CL (test code = 106 mmol/L 98-108 9480068344) CO2 TOTAL (test code = 24 mmol/L 23-31 2405952362) AGAP (test code = 2-16 2026224392) BUN (test code = 11 mg/dL 7-23 8858860385) GLUCOSE (test code = 94 mg/dL 70-110 6814211225) CREATININE (test code = 0.30 mg/dL 0.5-1.04 L 3574826311) TOTAL BILI (test code = 0.1 mg/dL 0.1-1.1 9895670250) CALCIUM (test code = 9.2 mg/dL 8.6-10.6 0728606400) T PROTEIN (test code = 7.2 g/dL 6.3-8.2 2049660276) ALBUMIN (test code = 3.9 g/dL 3.5-5 2331287203) ALK PHOS (test code = 99 U/L 34-122 3160409482) ALTv (test code = 14 U/L 5-35 1742-6) AST(SGOT) (test code = 24 U/L 13-40 8002938160) eGFR Calculation mL/min/1.73m2 (Non-) (test code = 4964647224) eGFR Calculation mL/min/1.73m2 () (test code = 1051972546) DENYS (test code = DENYS) Association of [...] tests). Lab Interpretation Abnormal (test code = 62988-3) [facility]LIPASE2020-02-[facility] 23:50:00 Test Item Value Reference Range Interpretation Comments LIPASE (test code = 8661635035) 61 U/L 0-220 Lab Interpretation (test code = Normal 51996-6) [facility] [place]ASE2020-02-24 23:49:00 Test Item Value Reference Range Interpretation Comments GIANNI (test code = 5005734803) 92 U/L 35-110 Lab Interpretation (test code = Normal 96119-5) [facility] [id number] 23:36:00 Test Item Value Reference Range Interpretation [...] RDW-SD (test code = 40.2 fL 39-49.9 48087-1) RDW-CV (test code = 11.9 % 12-15.5 L 788-0) PLT (test code = See_Comment [Automated 777-3) message] The sy stem which generated this result transmitted reference range : 166 - 358 10*3/ ?L. The reference r tawny was not used to interpret this result as normal/abnormal . MPV (test code = 11.9 fL 9.5-12.9 66601-2) NRBC/100 WBC (test See_Comment [Automat ed code = [id number]) message] The system which generated this result transmitted reference range : 0.0 - 10.0 /100 WBCs. The refer ence range was not u sed to interpret th is result as normal/abnormal . NRBC x10^3 (test code <0.01 See_Comment [Auto mated = [id number]) message] The s ystem which generated this result transmitted reference range : 10*3/?L. The reference range was not used to interpret this result as normal/abnormal . GRAN MAT (NEUT) % 66.2 % (test code = 770-8) IMM GRAN % (test code 1.10 % = 8685272904) LYMPH % (test code = 21.5 % 736-9) MONO % (test code = 7.1 % 5905-5) EOS % (test code = 3.9 % 713-8) BASO % (test code = 0.2 % 706-2) GRAN MAT x10^3(ANC) 8.38 10*3/uL 1.88-7.09 H (test code = 4373335177) IMM GRAN x10^3 (test 0.14 10*3/uL 0-0.06 H code = 4432516325) LYMPH x10^3 (test code 2.72 10*3/uL 1.32-3.29 = 731-0) MONO x10^3 (test code 0.90 10*3/uL 0.33-0.92 = 742-7) EOS x10^3 (test code = 0.49 10*3/uL 0.03-0.39 H 711-2) BASO x10^3 (test code 0.03 10*3/uL 0.01-0.07 = 704-7) Lab Interpretation Abnormal (test code = 40396-6) [facility] URINALYSIS W/O SPECIFIC [id number] 22:47:00 Test Item Value Reference Range Interpretation [...] Negative Lab Interpretation (test code = Normal 73194-1) [facility] AntigenSARS-COV 2 AntigenSARS-COV 2 AntigenSARS-COV 2 Antigen
--- NOTE | 2023-09-08 11:23 | ER ---
Nurse's Notes [facility] Name: Ekaterina Mendez Age: 23 yrs Sex: Female : 2000 Arrival Date: 09/08/2023 Time: 08:53 Bed 10 Private MD: Diagnosis: Acute upper respiratory infection, unspecified Presentation: 09/08 09:15 Chief complaint: Patient states: difficulty breathing past 2 days, sinus symptoms onset eh3 Thursday, Hx of asthma and inhaler is not helping. Ebola Screen: No symptoms or risks identified at this time. Initial Sepsis Screen: Does the patient meet any 2 criteria? No. Patient's initial sepsis screen is negative. Does the patient have a suspected source of infection? No. Patient's initial sepsis screen is negative. Risk Assessment: Do you want to hurt yourself or someone else? Patient reports no desire to harm self or others. Onset of symptoms was September 08, 2023. 09:15 Method Of Arrival: Ambulatory eh3 09:15 Acuity: NADINE 3 eh3 Triage Assessment: 09:16 General: Appears in no apparent distress. uncomfortable, Behavior is calm, cooperative, eh3 appropriate for age. Pain: Denies pain. Neuro: Level of Consciousness is awake, alert, obeys commands, Oriented to person, place, time, situation. Cardiovascular: Capillary refill < 3 seconds Patient's skin is warm and dry. Respiratory: Reports shortness of breath at rest cough that is dry, labored breathing Onset: The symptoms/episode began/occurred Thursday, the patient has moderate shortness of breath. Historical: - Allergies: 09:16 No Known Allergies; eh3 - Home Meds: 09:16 Albuterol Inhl [Active]; eh3 - PMHx: 09:16 Graves disease; Asthma; eh3 - Immunization history:: Adult Immunizations up to date. - Social history:: Smoking status: Reported history of juuling and/or vaping. Patient uses alcohol, occasionally. Screenin:11 [facility] ED Fall Risk Assessment (Adult) Score/Fall Risk Level 0 - 2 = Low Risk. Abuse eh3 screen: Denies threats or abuse. Denies injuries from another. Nutritional screening: No deficits noted. Tuberculosis screening: No symptoms or risk factors identified. Assessment: 11:09 Reassessment: Patient appears in no apparent distress at this time. Patient and/or 3 family updated on plan of care and expected duration. Pain level reassessed. Patient is alert, oriented x 3, equal unlabored respirations, skin warm/dry/pink. Cardiovascular: Rhythm is regular. Respiratory: Airway is patent Respiratory effort is even, unlabored. Vital Signs: 09:16 BP 151 / 98; Pulse 98; Resp 18; Temp 98.8; Pulse Ox 97% on R/A; Weight 56.7 kg; Height [facility] 5 ft. 0 in. ; 11:09 BP 136 / 92; Pulse 92; Resp 16; Temp 98.2(O); Pulse Ox 98% on R/A; eh3 09:16 Body Mass Index 24.41 (56.70 kg, 152.4 cm) [facility] ED Course: 08:56 Patient arrived in ED. mg5 09:06 Comfort Jain FNP [facility] 7 09:06 Alex Martinez MD is Attending Physician. [facility] 09:16 Triage completed. 3 09:16 Arm band placed on. 3 09:34 Flu Sent. 3 09:34 SARS-COV-2 RT PCR Sent. 3 11:07 Alia Newsome, RN is Primary Nurse. 3 11:10 Patient has correct armband on for positive identification. Bed in low position. Call [facility] light in reach. Side rails up X2. Adult w/ patient. Provided Education on: Use of call [place]. Pulse ox on. NIBP on. 11:45 No provider procedures requiring assistance completed. Patient did not have IV access [facility] during this emergency room visit. Administered Medications: 11:30 Drug: Dexamethasone IM 10 mg IM once Route: IM; Site: right deltoid; [facility] 11:45 Follow up: Response: No adverse reaction 3 Medication: 11:45 VIS not applicable for this client. 3 Outcome: 11:22 Discharge ordered by . [facility] 11:45 Discharged to home ambulatory, with significant other, [facility] 11:45 Condition: stable 11:45 Discharge instructions given to patient, Instructed on discharge instructions, follow up and referral plans. medication usage, Demonstrated understanding of instructions, follow-up care, medications, Prescriptions given X 2, 11:46 Patient left the ED. [facility] Signatures: Mesha Albert RN RN [facility] Alia Newsome, RN RN eh3 Comfort Jain, CERTIFIED SURGICAL TECH/FIRST ASSISTANT CERTIFIED SURGICAL TECH/FIRST ASSISTANT jh7 Gissell Laurent mg5
--- NOTE | 2023-09-08 11:23 | EDPHYS ---
Physician Documentation [facility] Name: Ekaterina Mendez Age: 23 yrs Sex: Female : 2000 Arrival Date: 09/08/2023 Time: 08:53 Bed 10 Private MD: ED Physician Alex Martinez HPI: 09/08 09:16 This 23 yrs old Female presents to ER via Ambulatory with complaints of jh7 Breathing Difficulty, Cold Symptoms. 09:16 23-year-old female presents to the ER complaining of cough, congestion, runny nose, and jh7 shortness of breath since Thursday. The patient has a history of asthma and states her inhaler is not helping. Denies fever.. Historical: - Allergies: 09:16 No Known Allergies; eh3 - Home Meds: 09:16 Albuterol Inhl [Active]; eh3 - PMHx: 09:16 Graves disease; Asthma; eh3 - Immunization history:: Adult Immunizations up to date. - Social history:: Smoking status: Reported history of juuling and/or vaping. Patient uses alcohol, occasionally. ROS: 09:16 Constitutional: Negative for fever, chills, and weight loss, Eyes: Negative for injury, jh7 pain, redness, and discharge, Neck: Negative for injury, pain, and swelling, Cardiovascular: Negative for chest pain, palpitations, and edema, Abdomen/GI: Negative for abdominal pain, nausea, vomiting, diarrhea, and constipation, Back: Negative for injury and pain, MS/Extremity: Negative for injury and deformity, Skin: Negative for injury, rash, and discoloration, Neuro: Negative for headache, weakness, numbness, tingling, and seizure, 09:16 ENT: Positive for nasal discharge, rhinorrhea, sinus congestion, sinus pain, 09:16 Respiratory: Positive for cough, shortness of breath, wheezing, 09:16 All other systems are negative, Exam: 09:16 Constitutional: This is a well developed, well nourished patient who is awake, alert, jh7 and in no acute distress. Head/Face: Normocephalic, atraumatic. Neck: Trachea midline, no thyromegaly or masses palpated, and no cervical lymphadenopathy. Supple, full range of motion without nuchal rigidity, or vertebral point tenderness. No Meningismus. Cardiovascular: Regular rate and rhythm with a normal S1 and S2. No gallops, murmurs, or rubs. Normal PMI, no JVD. No pulse deficits. Respiratory: Lungs have equal breath sounds bilaterally, clear to auscultation and percussion. No rales, rhonchi or wheezes noted. No increased work of breathing, no retractions or nasal flaring. Skin: Warm, dry with normal turgor. Normal color with no rashes, no lesions, and no evidence of cellulitis. MS/ Extremity: Pulses equal, no cyanosis. Neurovascular intact. Full, normal range of motion. Neuro: Awake and alert, GCS 15, oriented to person, place, time, and situation. Normal gait. 09:16 ENT: Nose: nasal drainage, and is seen coming from both nares, that is clear, Posterior pharynx: pooling of secretions, that are mild, 09:16 Respiratory: the patient does not display signs of respiratory distress, Respirations: normal, Breath sounds: are clear throughout, Vital Signs: 09:16 BP 151 / 98; Pulse 98; Resp 18; Temp 98.8; Pulse Ox 97% on R/A; Weight 56.7 kg; Height eh3 5 ft. 0 in. ; 11:09 BP 136 / 92; Pulse 92; Resp 16; Temp 98.2(O); Pulse Ox 98% on R/A; eh3 09:16 Body Mass Index 24.41 (56.70 kg, 152.4 cm) [facility] MDM: 09:06 Patient medically screened. [facility] 11:21 Differential diagnosis: asthma, Bronchitis Upper respiratory infection, COVID, flu. [facility] Antibiotic administration: Not indicated, the patient has a suspected viral illness. Data interpreted: Pulse oximetry: is 98 %. Interpretation: normal. Data reviewed: vital signs, nurses notes. I considered the following discharge prescriptions or medication management in the emergency department Medications were administered in the Emergency Department. See MAR. Counseling: I had a detailed discussion with the patient and/or guardian regarding the historical points, exam findings, and any diagnostic results supporting the discharge/admit diagnosis, to return to the emergency department if symptoms worsen or persist or if there are any questions or concerns that arise at home. 09/08 09:19 Order name: SARS-COV-2 RT PCR; Complete Time: 10:37 3 09/08 09:19 Order name: Strep 3 09/08 09:20 Order name: Flu; Complete Time: 10:37 eh3 Administered Medications: 11:30 Drug: Dexamethasone IM 10 mg IM once Route: IM; Site: right deltoid; [facility] 11:45 Follow up: Response: No adverse reaction [facility] Disposition Summary: 09/08/23 11:22 Discharge Ordered Notes: Location: Home [facility] Problem: new [facility] Symptoms: are unchanged [facility] Condition: Stable [facility] Diagnosis - Acute upper respiratory infection, unspecified [facility] Followup: [facility] - With: Private Physician - When: 2 - 3 days - Reason: Recheck today's complaints Discharge Instructions: - Discharge Summary Sheet [facility] - Upper Respiratory Infection, Adult [facility] - Viral Respiratory Infection [facility] Forms: - Work release form bd - Medication Reconciliation Form [facility] - Thank You Letter [facility] - Patient Portal Instructions [facility] - Leadership Thank You Letter [facility] Prescriptions: - albuterol sulfate 90 mcg/actuation Inhalation HFA Aerosol Inhaler - inhale 1 inhalation INHALATION route every 4 to 6 hours As needed; 1 Each; [facility] Refills: 0, Product Selection Permitted - Tessalon Perles 100 mg Oral Capsule - take 1 capsule ORAL route every 8 hours As needed; 15 capsule; Refills: 0, [facility] Product Selection Permitted Signatures: Dispatcher [employer] Alia Fair RN RN [facility] Comfort Jain FNP [place] [id number]
[2023-09-08] MEDS ORDERED: dexAMETHasone 10 MG/ML VIAL ONE (11:41)
== END 2023-09-08 11:46 | disposition home or self-care (01) ==
LOC: ER 08:53
DX: J06.9 Acute upper respiratory infection, unspecified (principal); E05.00 Thyrotoxicosis with diffuse goiter without thyrotoxic crisis or storm; Z20.822 Contact with and (suspected) exposure to COVID-19
CPT/HCPCS: 87635; 87804 ×2; J1100

== ENCOUNTER 2024-03-22 17:04 | Emergency (ER) | payer BC ==
[2024-03-22 17:45] LABS: Specific Gravity 1.019 (1.005-1.030)
[2024-03-22 17:52] LABS: Specific Gravity 1.019 (1.005-1.030); Urine Bacteria None Seen /HPF (<20); Urine Bilirubin NEGATIVE (Negative); Urine Blood Negative (Negative); Urine Clarity Extremely Turbid (Clear); Urine Color Light-Yellow (Yellow); Urine Culture Reflex Order REFLEXED; Urine Glucose NEGATIVE (Negative); Urine Ketones 1+ (Negative); Urine Microscopic Reflex YN ORDER UMIC; Urine Mucus Slight /HPF (None Seen); Urine Nitrite NEGATIVE (Negative); Urine Protein NEGATIVE (Negative); Urine RBC <5 /HPF (None Seen); Urine Urobilinogen Normal (Normal); Urine pH 6.5 (5.0-7.0)
[2024-03-22 18:46] LABS: Absolute Eosinophils 0.3 K/uL (0-0.5); Absolute Monocytes 0.7 K/uL (0.1-1.3); Basophils % 0.2 % (0-1.3); Eosinophils % 2.7 % (0-4.4); Hematocrit 38.2 % (36.0-45.0); Hemoglobin 12.9 g/dL (12.0-15.0); Lymphocytes % 29.9 % (15.3-44.8); MCH 29.4 pg (27.0-35.0); MCHC 33.7 g/dL (32.0-36.0); MCV 87.3 fL (80-100); MPV 9.2 fL (7.6-11.3); Monocytes % 7.4 % (3.3-12.3); Neutrophils % 59.8 % (41.7-73.7); Platelets 208 thou/uL (152-406); RBC Red Blood Cell Count 4.38 M/uL (3.86-4.86); Red Cell Distribution Width 13.5 % (12.1-15.2)
[2024-03-22 18:59] LABS: PT Prothrombin Time 12.6 SECONDS (9.5-12.5); PTT, Activated Partial Thromb 30.2 SECONDS (24.3-36.9); Protime INR 1.15
[2024-03-22 19:06] LABS: ALT/SGPT 19 U/L (13-56); Albumin 3.3 g/dL (3.4-5.0); Albumin/Globulin Ratio 0.9 (1.1-1.8); Alkaline Phosphatase 102 U/L (45-117); Anion Gap 8.6 mEq/L (5.0-15.0); BUN Blood Urea Nitrogen 17 mg/dL (7-18); Bicarbonate 25 mEq/L (21-32); Bilirubin Total 0.3 mg/dL (0.2-1.0); Globulin 3.6 g/dL (2.3-3.5); Glomerular Filtration Rate 134 ml/min (=/>90); Glucose Level 121 mg/dL (74-106); Potassium 3.6 mEq/L (3.5-5.1); Protein, Total 6.9 g/dL (6.4-8.2); Sodium Level 138 mEq/L (136-145)
[2024-03-22 19:17] LABS: AST/SGOT < 10 U/L (15-37)
[2024-03-22] MEDS ORDERED: CEFTRIAXONE 1000 MG/VIAL ONE (19:54)
--- NOTE | 2024-03-22 20:04 | EDPHYS ---
Physician Documentation [facility] Name: Ekaetrina Barth Age: 23 yrs Sex: Female : 2000 Arrival Date: 03/22/2024 Time: 17:04 Bed 20 Private MD: ED Physician Jamison Stallworth HPI: 03/22 17:41 This 23 yrs old Female presents to ER via Ambulatory with complaints of kb Urinary Problem. 17:41 Pt is a 23 year old female who presents for bilateral flank pain that started 3 days kb ago and urinary frequency and dysuria that started 2 days ago. Denies fever, vomiting, diarrhea. Reports nausea. States the pain is similar to previous kidney infection. 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 - Infectious Disease History:: Denies. - Social history:: Smoking status: Reported history of juuling and/or vaping. ROS: 17:41 Constitutional: As per HPI kb Exam: 17:41 Constitutional: This is a well developed, well nourished patient who is awake, alert, kb and in no acute distress. Head/Face: Normocephalic, atraumatic. ENT: Moist Mucous membranes Cardiovascular: Regular rate Respiratory: Respirations even and unlabored. No increased work of breathing. Talking in full sentences Abdomen/GI: Soft, non-tender. No distention Skin: Warm, dry with normal turgor. Normal color. MS/ Extremity: Pulses equal, no cyanosis. Neurovascular intact. Full, normal range of motion. Neuro: Awake and alert, GCS 15, oriented to person, place, time, and situation. Moves all extremities. Normal gait. 17:41 Back: CVA tenderness, that is moderate, is noted bilaterally, 20:04 ECG was reviewed by the Attending Physician. kb Vital Signs: 17:13 BP 150 / 98; Pulse 109; Resp 18 S; Temp 98.7(TE); Pulse Ox 99% on R/A; Weight 66.22 kg as6 (R); Height 5 ft. 0 in. (R); Pain 8/10; 18:15 BP 153 / 100; Pulse 99; Resp 16; Pulse Ox 97% ; nj1 19:48 BP 106 / 82; Pulse 88; Resp 18 S; Pulse Ox 98% on R/A; as6 20:22 BP 126 / 80; Pulse 78; Resp 16; Pulse Ox 100% on R/A; nj1 17:13 Body Mass Index 28.51 (66.22 kg, 152.4 cm) as6 17:13 Pain Scale: Adult as6 MDM: 17:07 Patient medically screened. kb 17:42 Differential diagnosis: uti, kidney stone, pyelonephritis. Data reviewed: vital signs, kb nurses notes. 20:02 Test considered but Not performed: CT: CT abd/pelvis considered but labs reassuring, kb afebrile, no abd tenderness, nontoxic in appearance. Pt educated on return precautions. Counseling: I had a detailed discussion with the patient and/or guardian regarding the historical points, exam findings, and any diagnostic results supporting the discharge/admit diagnosis, lab results, the need for outpatient follow up, a family practitioner, to return to the emergency department if symptoms worsen or persist or if there are any questions or concerns that arise at home. 03/22 17:15 Order name: CBC with Diff; Complete Time: 19:03 kb 03/22 17:15 Order name: CMP; Complete Time: 19:24 kb 03/22 17:15 Order name: Test, Urine; Complete Time: 17:46 kb 03/22 17:15 Order name: Urinalysis w/ reflexes; Complete Time: 17:55 kb 03/22 17:43 Order name: Blood Culture Adult (2) kb 03/22 17:43 Order name: Lactate w/ 2H reflex if indic.; Complete Time: 19:24 kb 03/22 17:43 Order name: Protime (+inr); Complete Time: 19:03 kb 03/22 17:43 Order name: Ptt, Activated; Complete Time: 19:03 kb 03/22 17:57 Order name: Urine Culture EDMS 03/22 17:43 Order name: EKG; Complete Time: 17:44 kb 03/22 17:15 Order name: IV Saline Lock; Complete Time: 18:31 kb 03/22 17:15 Order name: Labs collected and sent; Complete Time: 18:31 kb 03/22 17:43 Order name: EKG - Nurse/Tech; Complete Time: 19:22 kb EC:04 Rate is 95 beats/min. Rhythm is regular. QRS [place] is Normal. [place] interval is normal at kb 140 msec. QRS interval is normal at 82 msec. QT interval is normal at 434 msec. Administered Medications: 19:57 Drug: Rocephin IV 1 grams IV at calculated rate once; Given slow IV push per pharmacy as6 instructions Route: IV; Rate: calculated rate; Site: right antecubital; Disposition Summary: 03/22/24 20:03 Discharge Ordered Notes: Location: Home kb Condition: Stable kb Diagnosis - UTI/ Urinary tract infection, site not specified kb Followup: kb - With: Emergency Department - When: As needed - Reason: Worsening of condition Followup: kb - With: Private Physician - When: 2 - 3 days - Reason: Recheck today's complaints, Continuance of care, Re-evaluation by your physician Discharge Instructions: - Discharge Summary Sheet kb - Urinary Tract Infection, Adult, [id number] kb Forms: - Medication Reconciliation Form kb - Antibiotic Education kb - Prescription Opioid Use kb - Patient Portal Instructions kb - Leadership Thank You Letter kb Prescriptions: - Augmentin 875-125 mg Oral Tablet - take 1 tablet ORAL route every 12 hours for 10 days; 20 tablet; Refills: 0, kb Product Selection Permitted Signatures: Dispatcher [employer] Brittany Ayala, CORPORATE LOGISTICS MANAGER-C GORDON-Javy Chirinos, RN RN as6
--- NOTE | 2024-03-22 20:04 | ER ---
Nurse's Notes [facility] Name: Ekaterina Barth Age: 23 yrs Sex: Female : 2000 Arrival Date: 03/22/2024 Time: 17:04 Bed 20 Private MD: Diagnosis: UTI/ Urinary tract infection, site not specified Presentation: 03/22 17:13 Chief complaint: Patient states: back pain that started Thursday with urinary symptoms as6 that started Thursday. Coronavirus screen: At this time, the client does not indicate any symptoms associated with coronavirus-19. Ebola Screen: No symptoms or risks identified at this time. Initial Sepsis Screen: Does the patient meet any 2 criteria? No. Patient's initial sepsis screen is negative. Does the patient have a suspected source of infection? No. Patient's initial sepsis screen is negative. Risk Assessment: Do you want to hurt yourself or someone else? Patient reports no desire to harm self or others. Onset of symptoms was March 20, 2024. 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 - Infectious Disease History:: Denies. - Social history:: Smoking status: Reported history of juuling and/or vaping. Screenin:29 [facility] ED Fall Risk Assessment (Adult) History of falling in the last 3 months, nj1 including since admission No falls in past 3 months (0 pts) Confusion or Disorientation No (0 pts) Intoxicated or Sedated No (0 pts) Impaired Gait No (0 pts) Mobility Assist Device Used No (0 pt) Altered Elimination No (0 pt). Abuse screen: Denies threats or abuse. Denies injuries from another. Nutritional screening: No deficits noted. Tuberculosis screening: No symptoms or risk factors identified. Assessment: 18:10 General: Appears in no apparent distress. comfortable, Behavior is calm, cooperative, nj1 appropriate for age. 18:10 Pain: Complains of pain in back Pain currently is 8 out of 10 on a pain scale. Neuro: nj1 Level of Consciousness is awake, alert, obeys commands, Oriented to person, place, time, situation. Cardiovascular: Patient's skin is warm and dry. Respiratory: Airway is patent Respiratory effort is even, unlabored. : Reports inability to void, urinary frequency. Vital Signs: 17:13 BP 150 / 98; Pulse 109; Resp 18 S; Temp 98.7(TE); Pulse Ox 99% on R/A; Weight 66.22 kg as6 (R); Height 5 ft. 0 in. (R); Pain 8/10; 18:15 BP 153 / 100; Pulse 99; Resp 16; Pulse Ox 97% ; nj1 19:48 BP 106 / 82; Pulse 88; Resp 18 S; Pulse Ox 98% on R/A; as6 20:22 BP 126 / 80; Pulse 78; Resp 16; Pulse Ox 100% on R/A; nj1 17:13 Body Mass Index 28.51 (66.22 kg, 152.4 cm) as6 17:13 Pain Scale: Adult as6 ED Course: 17:06 Patient arrived in ED. rg4 17:06 Brittany Turner FNP-C is PHCP. kb 17:06 Jamison Stallworth MD is Attending Physician. kb 17:13 Arm band placed on. as6 17:15 Triage completed. as6 17:57 Chanell Negron, RN is Primary Nurse. nj1 18:12 Inserted saline lock: 22 gauge in right antecubital area, using aseptic technique. nj1 Blood collected. 18:30 Patient has correct armband on for positive identification. Bed in low position. Call nj1 light in reach. Provided Education on: call light, fall precautions. 19:51 No provider procedures requiring assistance completed. as6 20:23 IV discontinued, intact, bleeding controlled, Pressure dressing applied. nj1 Administered Medications: 19:57 Drug: Rocephin IV 1 grams IV at calculated rate once; Given slow IV push per pharmacy as6 instructions Route: IV; Rate: calculated rate; Site: right antecubital; Medication: 19:49 VIS not applicable for this client. as6 Outcome: 20:03 Discharge ordered by . kb 20:23 Discharge instructions given to patient, Instructed on discharge instructions, follow nj1 up and referral plans. medication usage, Demonstrated understanding of instructions, follow-up care, medications, Prescriptions given X 1, 20:23 Discharged to home ambulatory, nj1 20:23 Condition: stable 20:24 Patient left the ED. nj1 Signatures: Brittany Turner FNP-C FNP-Salome Manning rg4 Javy Carter RN RN as6 Chanell Negron RN RN nj1 Corrections: (The following items were deleted from the chart) 20: 19:51 Condition: stable as6 nj1 :24 19:51 Discharged to home ambulatory, as6 nj1
[2024-03-22 21:05] VITALS: BP 126/80; TEMP 98.7; O2SAT 100
--- NOTE | 2024-03-23 13:06 | EKG ---
Test Date: 2024-03-22 Test Time: 19:15:33 Research Professor Of Biostatistics: PRIMITIVO MEASUREMENT RESULTS: Intervals: Rate: 95 TX: 140 QRSD: 82 QT: 346 QTc: 434 [place]: P: 37 TX: 140 QRS: 86 T: 63 INTERPRETIVE STATEMENTS: Normal sinus rhythm Normal ECG No previous ECG available for comparison Electronically Signed On 03-23-24 13:05:49 CDT by Christian May
== END 2024-03-22 20:24 | disposition home or self-care (01) ==
LOC: ER 17:04
DX: N39.0 Urinary tract infection, site not specified (principal)
CPT/HCPCS: 93005; 87040 ×2; 87088; 85025; 81001; 87086; 36415; 81025; 85610; 83605; 85730; 80053; 96374; 99284; J0696

== ENCOUNTER 2024-11-25 16:39 | Emergency (ER) | payer BC ==
--- OUTSIDE RECORDS SUMMARY | 2024-11-25 17:05 | XMS REPORT | Continuity of Care Document ---
Author Name Unknown Address [address] [facility] [address] [place] [address] [facility] thconnect Address [address] [facility] [place] [address] Care Team Providers Care Dental Tech Name Role Phone Alonso Back Primary Care Physician [phone] Alonso Back Attending Clinician Unavailable Neema Mac Attending Clinician Unavailable MILY MANNING Attending Clinician Unavailable GUSTABO BROCK Attending Clinician Unavailable GUSTABO BROCK Attending Clinician Unavailable Gustabo Brock MD Attending Clinician [phone] Doctor Unassigned, Taylor Attending Clinician U navailable 2, [facility] Attending Clinician Unavailable DEBBIE BECK Attending Clinician Unavailable Debbie Kim Attending Clinician [phone] Unknown, Attending Attending Clinician UnavailMily Hill DNP Attending Clinician [phone] Doctor Unassigned, Taylor Attending Clinician U navailable 2, [facility] Attending Clinician Unavailable LANG CASTILLO Attending Clinician Unavailable ELA RAPHAEL Attending Clinician Unavailable ERIN BREWSTER Attending Clinician Unavailable Erin Brewster MD Attending Clinician + Ela Raphael PA-C Attending Clinician + [phone] SO KAHN Attending Clinician Unavailab So Jimenez DO Attending Clinician [phone] Evelyne Sutton MA Attending Clinician Unavail able Georges BURCH, [place] Attending Clinician Unavail able Chago Bonilla MD Attending Clinician [phone] Torey Ferris MD Attending Clinician [phone] Korey Eubanks CRNA Attending Clinician [phone] PAIGE ALCALA Attending Clinician Unavailable Paige Alcala MD Attending Clinician [phone] RAISSA PEREA Attending Clinician Unavailabl e Richard Langley PT, Lyndsay Attending Clinician Un available Raissa Perea MD Attending Clinician [phone] Ultrasound, [facility] Attending Clinician Unavaila Regino Culp MD Attending Clinician +[phone] REGINO TINOCO Attending Clinician Unavailable Nurse, [facility] Attending Clinician Un available Odilon Reynolds RN, Ela Attending Clinician Unavailable Last BURCH, Angelica Alicea Attending Clinician Unavailab VANDANA Galaviz Attending Clinician Unavailab Vandana Galaviz DO Attending Clinician [phone] Only, Ang Db Test Attending Clinician Unavailabl Janine Kilgore Attending Clinician + [phone] JANINE WATKINS Attending Clinician Unavailab JAVIER Coto Attending Clinician Unav ailruddy Frost MD, Javier Attending Clinician + Neena Cardona RN Attending Clinician Unavailable Marialuisa Martinez NP Attending Clinician + [phone] REEMA SMALLS Attending Clinician Unavailable Ebadarsh ONCOLOGY REP SPECIALISTReema Attending Clinician [phone] Marcella Uriostegui Attending Clinician [phone] April TAXATION ECONOMIST, Elsa G Attending Clinician + [phone] Ultrasound, [facility] Attending Clinician Abdirashid Ibarra MD, Jhoana Wu Attending Clinician + [phone] Duke Matthew MD Attending Clinician [phone] Room, [facility] Attending Clinician Unavailable Sadia FRASER, Carl Attending Clinician [phone] Joaquín FRASER, Anders Suarez Attending Clinician [phone] , [facility] Room Attending Clinician Abdirashid ALCALA, PAIGE Jaimes Admitting Clinician Unavailable DELMY, GUSTABO BUNDY Admitting Clinician Unavailable CARL DELGADO Admitting Clinician Unavaillillian YANES, ANDERS SUAREZ Admitting Clinician Unavaillillian Brock MD, Gustabo Bundy Admitting Clinician [phone] Cari FRASER, Paige Jaimes Admitting Clinician [phone] Sadia FRASER, Carl Admitting Clinician [phone] Joaquín FRASER, Anders Suarez Admitting Clinician [phone] Payers Payer Name Policy Type Policy Number Effective Date Expirati on Date Source [facility] [id number] 2019 00:00:00 [facility] [id number] 2024 00:00:00 [facility] 6 [id number] 2022 00:00:00 [facility] HIM AMBETTER FROM [facility] [id number] 2021 00:00:00 [facility]etter from [facility] [id number] 2021 00:00:00 [facility] Ambetter from [facility] [id number] 2021 00:00:00 [facility] Ambetter from [facility] [id number] 2021 00:00:00 [facility] Ambetter from [facility] [id number] 2021 00:00:00 [facility] Ambetter from [facility] [id number] 2021 00:00:00 [facility] [id number] 2020 00:00:00 [facility] [id number] 2020 00:00:00 [facility] [id number] 2020 00:00:00 [facility] Problems Condition Name Condition Details Condition Category Status Onset Date Resolution Date Last Treatment Date Treating Clinician Comments Source of unknown anatomic location of unknown anatomic location Disease Active 2023-11 2- 00:00: 00 [facility] 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 episode Disease Active 08-12 00:00: 00 [facility] History of depression History of depression Disease Active 08-12 00:00: 00 [facility] Anxiety disorder, unspecifie d type Anxiety disorder, unspecifie d type Disease Active 4-05 00:00: 00 [facility] 31 weeks gestation of 31 weeks gestation of Disease Active 0 1- 00:00: 00 [facility] 32 weeks gestation of 32 weeks gestation of Disease Active 0 - 00:00: 00 [facility] 33 weeks gestation of 33 weeks gestation of Disease Active 20200 - 00:00: 00 [facility] 36 weeks gestation of 36 weeks gestation of Disease Active 20200 - 00:00: 00 [facility] 37 weeks gestation of 37 weeks gestation of Disease Active 2020-0 - 00:00: 00 [facility] 38 weeks gestation of 38 weeks gestation of Disease Active 20200 - 00:00: 00 [facility] 21 weeks gestation of 21 weeks gestation of Disease Active 0 - 00:00: 00 [facility] 26 weeks gestation of 26 weeks gestation of Disease Active 11-17 00:00: 00 [facility] 29 weeks gestation of 29 weeks gestation of Disease Active 11-17 00:00: 00 [facility] 30 weeks gestation of 30 weeks gestation of Disease Active 11-17 00:00: 00 [facility] Recurrent sinusitis Recurrent sinusitis Problem [facility] [id number] Enlarged tonsils Problem [facility] [id number] Tachycardi a Problem [facility] Graves disease Graves disease Problem [facility] Sciatica Sciatic pain, right Problem [facility] [id number] ROBERT (generaliz ed anxiety disorder) Problem [facility] [id number] Hyperthyro idism Problem [facility] [id number] Mild intermitte nt asthma with exacerbati on Problem [facility] [id number] Pyelonephr itis of right kidney Problem [facility] [id number] Lower urinary tract symptoms (LUTS) Problem [facility] [id number] Right flank pain Problem [facility] [id number] Recurrent UTI Problem [facility] [id number] Body mass index [BMI] 34.0-34.9, adult Problem [facility] [id number] Other obesity due to excess calories Problem [facility] [id number] Non-season al allergic rhinitis, unspecifie d trigger Problem [facility] [id number] Severe episode of recurrent major depressive disorder, without psychotic features Problem [facility] Presence of intrauteri ne contracept pa device Presence of intrauteri ne contracept pa device Disease Resolve d 2021-11 2-12 00:00: 00 2024-06-01 00:00:00 2024-06-01 18:17:24 [facility] Urinary incontinen ce in female Urinary incontinen ce in female Disease Resolve d 9-27 00:00: 00 2024-06-01 00:00:00 2024-06-01 18:17:30 [facility] 39 weeks gestation of 39 weeks gestation of Disease Resolve d 2021-1 0-24 00:00: 00 2022-09-24 00:00:00 2022-09-24 12:06:37 [facility] [place] contractio ns Herminio Bang contractio ns Disease Resolve d 1 0-11 00:00: 00 2022-09-24 00:00:00 2022-09-24 12:06:40 [facility] Pain of round ligament during Pain of round ligament during Disease Resolve d 2021-11 0-11 00:00: 00 2022-09-24 00:00:00 2022-09-24 12:06:41 [facility] Nonintract able headache, unspecifie d chronicity pattern, unspecifie d headache type Nonintract able headache, unspecifie d chronicity pattern, unspecifie d headache type Disease Resolve d 2021-0 6-10 00:00: 00 2022-09-24 00:00:00 2022-09-24 12:06:32 [facility] Dizziness and giddiness Dizziness and giddiness Disease Resolve d 2021-0 6-02 00:00: 00 2022-09-24 00:00:00 2022-09-24 12:06:28 [facility] Nausea and vomiting during prior to 22 weeks gestation Nausea and vomiting during prior to 22 weeks gestation Disease Resolve d 2021-0 4-05 00:00: 00 2022-09-24 00:00:00 2022-09-24 12:06:24 [facility] High risk , antepartum High risk , antepartum Disease Resolve d 2021-0 4-05 00:00: 00 2022-09-24 00:00:00 2022-09-24 12:06:25 [facility] Nausea and vomiting during prior to 22 weeks gestation Nausea and vomiting during prior to 22 weeks gestation Disease Resolve d 2021-0 4-05 00:00: 00 2022-09-24 00:00:00 2022-09-24 12:06:24 [facility] Liveborn , of jacobs , born in hospital by vaginal delivery Liveborn infant, of jacobs , born in hospital by vaginal delivery Disease Resolve d 2019- 5-06 00:00: 00 2022-09-24 00:00:00 2022-09-24 12:06:19 [facility] Encounter for planned induction of labor Encounter for planned induction of labor Disease Resolve d 2019- 5-04 00:00: 00 2022-09-24 00:00:00 2022-09-24 12:06:17 [facility] Amniotic fluid index decreased Amniotic fluid index decreased Disease Resolve d 2019- 3-20 00:00: 00 2020-04-10 00:00:00 2020-04-10 17:41:18 [facility] 39 weeks gestation of 39 weeks gestation of Disease Resolve d 1-02 00:00: 00 2020-04-10 00:00:00 2020-04-10 17:41:24 [facility] High-risk in third trimester High-risk in third trimester Disease Resolve d 2019-0 1-02 00:00: 00 2020-04-10 00:00:00 2020-04-10 17:41:24 [facility] Mild intermitte nt asthma without complicati on Mild intermitte nt asthma without complicati on Disease Resolve d 2018-0 9-24 00:00: 00 2020-04-10 00:00:00 2020-04-10 17:41:25 [facility] Asthma Asthma Disease Resolve d 2012-0 9-12 00:00: 00 2020-04-10 00:00:00 2022-06-01 00:26:27 Overview: ICD10 Diagnosis Term Visor Installer Utility [facility] Oligohydra mnios Oligohydra mnios Disease Resolve d 2019-0 3-04 00:00: 00 2020-02-03 00:00:00 2020-02-03 08:43:37 [facility] premature rupture of membranes (PPROM) with unknown onset of labor premature rupture of membranes (PPROM) with unknown onset of labor Disease Resolve d 2019-0 3-03 00:00: 00 2020-02-03 00:00:00 2020-02-03 08:43:46 [facility] Oligohydra mnios in third trimester Oligohydra mnios in third trimester Disease Resolve d 2019-0 3-03 00:00: 00 2020-02-03 00:00:00 2020-02-03 08:43:39 [facility] Nausea and vomiting during Nausea and vomiting during Disease Resolve d 2019- 2-24 00:00: 00 2020-02-03 00:00:00 2020-02-03 08:43:50 [facility] Nausea and vomiting during Nausea and vomiting during Disease Resolve d 2019- 2-24 00:00: 00 2020-02-03 00:00:00 2020-02-03 08:43:50 [facility] Allergies, Adverse Reactions, Alerts Allergy Name Allergy Type Status Severity Reaction(s) Onset Date Inactive Date Treating Clinician Comments Source NO KNOWN ALLERGIE S Drug Class Active [facility] Social History Social Habit Start Date Stop Date Quantity Comments Source ASSERTION 2024-09-30 00:00:00 [facility] History SDOH Alcohol Frequency [facility] History SDOH Alcohol Std Drinks [facility] History SDOH Alcohol Binge [facility] History of tobacco use Passive smoker [facility] Alcohol Comment 2024-07-19 00:00:00 2024-07-19 00:00:00 occasionally [facility] Alcoholic beverage intake 2024-07-19 00:00:00 2024-07-19 00:00:00 Current drinker of alcohol (finding) [facility] Alcohol intake 2023-12-15 00:00:00 2023-12-15 00:00:00 Ex-drinker (finding) [facility] Exposure to SARS-CoV-2 (event) 2023-01-01 00:00:00 2023-01-11 19:05:00 Not sure [facility] Tobacco use and exposure 2022-09-08 00:00:00 2022-09-08 00:00:00 Smokeless tobacco non-user [facility] Tobacco Comment 2022-06-23 00:00:00 2022-06-23 00:00:00 denies smoke exposure [facility] History of Social function 2021-06-27 00:00:00 2021-06-27 00:00:00 [facility] Smoking Status Start Date Stop Date Source Never smoked tobacco [facility] Medications Ordered Medication Name Filled Medication Name Start Date Stop Date Current Medication? Ordering Clinician Indication Dosage Frequency Signature (SIG) Comments Components Source metoclopram ayden HCl 10 mg tablet 2023-11 00:00: 00 Yes 10mg Take 1 tablet by mouth every 6 (six) hours as needed for Nausea and Vomiting (N/V). [facility] ondansetron 4 mg disintegrat ing tablet 2023-11 00:00: 00 Yes [id number] 4mg Take 1 tablet by mouth every 8 (eight) hours as needed (N/V unresponsi ve to other medication s). [facility] progesteron e 200 mg capsule 2023-11 00:00: 00 Yes [id number] Insert 1 tab in vagina nightly [facility] pyridoxine, VITAMIN B-6, (VITAMIN B-6) 25 mg tablet 2023-11 00:00: 00 Yes [id number] 25mg Take 1 tablet by mouth every 6 (six) hours as needed for Nausea and Vomiting (N/V). [facility] doxylamine (UNISOM, DOXYLAMINE, ) 25 mg tablet 2023-11 00:00: 00 Yes [id number] 25mg Take 1 tablet by mouth at bedtime as needed for Nausea and Vomiting (N/V). [facility] propranoloL 40 mg tablet 2023-11 00:00: 00 Yes 40mg Take 1 tablet by mouth every morning. [facility] methIMAzole 10 mg tablet 2023-11 00:00: 00 Yes 10mg Take 1 tablet by mouth in the morning and 1 tablet in the evening. [facility] Venlafaxine HCl ER 37.5 MG Venlafaxine HCl ER 37.5 MG 2023-11 0 00:00: 00 No 1{capsu le_with _food} QD Venlafaxin e HCl ER 37.5 MG ondansetron 8 mg tablet 07-24 00:00: 00 Yes [id number] 8mg Take 1 tablet by mouth every 8 (eight) hours as needed for Nausea and Vomiting (N/V). [facility] azithromyci n (ZITHROMAX Z-DELMIS) 250 mg tablet 07-24 00:00: 00 07-30 04:59 :00 No [id number] Take 2 tablets by mouth daily for 1 day, THEN 1 tablet daily for 4 days. [facility] SERTraline (ZOLOFT) 50 mg tablet 07-19 00:00: 00 11-15 00:00 :00 No [id number] 50mg Take 1 tablet by mouth in the morning. [facility] levonorgest rel-ethinyl estradiol 0.1-20 mg-mcg per tablet 06-01 00:00: 00 10-19 00:00 :00 No [id number] 1{tbl} Take 1 tablet by mouth in the morning. [facility] traMADoL 50 mg tablet 01-11 00:00: 00 10-18 00:00 :00 No [id number] 50mg Take 1 tablet by mouth every 6 (six) hours as needed for Pain (scale 4-6). Indication s: acute pain [facility] ciprofloxac in HCl 500 mg tablet 01-11 00:00: 00 07-24 00:00 :00 No [id number] 500mg Take 1 tablet by mouth in the morning and 1 tablet in the evening. [facility] busPIRone 7.5 mg tablet 12-25 09:31: 41 12-25 00:00 :00 No 7.5mg Take 7.5 mg by mouth in the morning and 7.5 mg in the evening. [facility] SERTraline (ZOLOFT) 50 mg tablet 12-25 00:00: 00 07-19 00:00 :00 No [id number] 50mg Take 1 tablet by mouth in the morning. [facility] ondansetron (ZOFRAN-ODT ) disintegrat ing tablet 4 mg 2021-11 15:30: 00 11-04 14:23 :00 No 4mg 4 mg, Oral, ONCE, 1 dose, On Thu11/04/22 at 0930, Routine [facility] ondansetron 4 mg disintegrat ing tablet 2021-11 00:00: 00 11-04 00:00 :00 No [id number] 4mg Take 1 tablet by mouth every 8 (eight) hours as needed for Nausea and Vomiting (N/V). [facility] levonorgest reL (KYLEENA) IUD 1 Device 2021-11 23:00: 00 10-27 22:01 :00 No [id number] 1{devic e} [facility] busPIRone 7.5 mg tablet 2021-11 15:29: 29 Yes 7.5mg Take 7.5 mg by mouth in the morning and 7.5 mg in the evening. [facility] fluconazole (DIFLUCAN) 200 mg tablet 2021-11 00:00: 00 11-04 00:00 :00 No [id number] 200mg Take 1 tablet by mouth in the morning. [facility] busPIRone 7.5 mg tablet 2021-11 11:52: 23 Yes 7.5mg Take 7.5 mg by mouth in the morning and 7.5 mg in the evening. [facility] busPIRone 7.5 mg tablet 2021-11 00:00: 00 12-25 00:00 :00 No [id number] 7.5mg Take 1 tablet by mouth in the morning and 1 tablet in the evening. [facility] miSOPROStoL 200 mcg tablet 2021-11 00:00: 00 11-04 00:00 :00 No [id number] 200ug Take 1 tablet by mouth SEE-INSTRU CTIONS. Take one tab the night before and one tab the morning of procedure [facility] SERTraline (ZOLOFT) tablet 50 mg 2021-11 14:00: 00 Yes 50mg 50 mg, Oral, DAILY, First dose on Thu09/09/22 at 0900, Until Discontinu ed, Routine [facility] vitamin w/FA tablet 1 tablet 2021-11 14:00: 00 Yes 1{tbl} 1 tablet, Oral, DAILY, First dose on Thu09/09/22 at 0900, Until Discontinu ed, Routine [facility] cetirizine HCl (ZYRTEC ORAL) 2021-11 12:44: 53 09-09 00:00 :00 No Take by mouth. [facility] vitamin w/FA tablet 2021-11 00:00: 00 09-24 00:00 :00 No [id number] 102 1{tbl} Take 1 tablet by mouth in the morning. [facility] docusate 100 mg capsule 2021-11 00:00: 00 09-24 00:00 :00 No [id number] 102 200mg Take 2 capsules by mouth once daily as needed for Constipati on. [facility] ferrous sulfate 325 mg (65 mg iron) tablet 2021-11 00:00: 00 09-24 00:00 :00 No [id number] 102 325mg Take 1 tablet by mouth in the morning and 1 tablet in the evening. [facility] ibuprofen 600 mg tablet 2021-11 00:00: 00 09-24 00:00 :00 No [id number] 102 600mg Take 1 tablet by mouth every 6 (six) hours as needed (Pain). Take with food or milk. [facility] rho(D) immune globulin (RHOGAM) syringe 300 mcg 2021-11 024 21:38: 55 Yes 300ug 300 mcg, Intramuscu lar, ONCE, For 1 dose, Conditiona l, Routine [facility] HYDROcodone -acetaminop hen (NORCO 5) 5-325 mg tablet 1 tablet 2021-11 024 21:38: 51 Yes 1{tbl} 1 tablet, Oral, Q6HPRN, Starting on Thu09/08/22 at 1638, Until Discontinu ed, Routine, Pain (scale 7-10) [facility] ibuprofen (IBU) tablet 600 mg 2021-11 0-24 21:38: 51 Yes 600mg 600 mg, Oral, Q6HPRN, Starting on Thu09/08/22 at 1638, Until Discontinu ed, Routine, Pain (scale 4-6) [facility] acetaminoph en (TYLENOL) tablet 650 mg 2021-11 0 21:38: 51 Yes 650mg 650 mg, Oral, Q6HPRN, Starting on Thu09/08/22 at 1638, Until Discontinu ed, Routine, Pain (scale 1-3) [facility] diphenhydrA MINE (BENADRYL) tablet 25 mg 2021-11 21:38: 51 Yes 25mg 25 mg, Oral, Q6HPRN, Starting on Thu09/08/22 at 1638, Until Discontinu ed, Routine, Sleep, Itching [facility] ondansetron (ZOFRAN (PF)) injection 4 mg 2021-11 0 21:38: 51 Yes 4mg 4 mg, Slow IV Push, Q8HPRN, Starting on Thu09/08/22 at 1638, Until Discontinu ed, Routine, Nausea and Vomiting (N/V) [facility] simethicone (GAS RELIEF (SIMETHICON E)) chewable tablet 160 mg 2021-11 0 21:38: 51 Yes 160mg 160 mg, Oral, PC+HSPRN, Starting on Thu09/08/22 at 1638, Until Discontinu ed, Routine, Gas [facility] docusate (COLACE) capsule 200 mg 2021-11 0 21:38: 51 Yes 200mg 200 mg, Oral, QDAILYPRN, Starting on Thu09/08/22 at 1638, Until Discontinu ed, Routine, Constipati on [facility] magnesium hydroxide (MILK OF MAGNESIA) 400 mg/5 mL suspension 30 mL 2021-11 21:38: 51 Yes 30mL 30 mL, Oral, QDAILYPRN, Starting on Thu09/08/22 at 1638, Until Discontinu ed, Routine, Constipati on [facility] benzocaine- menthol (DERMOPLAST ) 20-0.5 % topical spray 2021-11 21:38: 51 Yes Topical, PRN, Starting on Thu09/08/22 at 1638, Until Discontinu ed, Routine, Perineum discomfort [facility] witch Sima (TUCKS) 50 % topical pad 2021-11 21:24: 48 Yes Topical, Q4HPRN, Starting on Thu09/08/22 at 1624, Until Discontinu ed, Routine, rectal/hem orrhoidal pain [facility] rho(D) immune globulin (RHOGAM) syringe 300 mcg 2021-11 21:19: 31 Yes 300ug 300 mcg, Intramuscu lar, ONCE, For 1 dose, Conditiona l, Routine [facility] HYDROcodone -acetaminop hen (NORCO 5) 5-325 mg tablet 1 tablet 2021-11 21:15: 19 Yes 1{tbl} 1 tablet, Oral, Q6HPRN, Starting on Thu09/08/22 at 1615, Until Discontinu ed, Routine, Pain (scale 7-10) [facility] ibuprofen (IBU) tablet 600 mg 2021-11 21:15: 19 Yes 600mg 600 mg, Oral, Q6HPRN, Starting on Thu09/08/22 at 1615, Until Discontinu ed, Routine, Pain (scale 4-6) [facility] acetaminoph en (TYLENOL) tablet 650 mg 2021-11 21:15: 19 Yes 650mg 650 mg, Oral, Q6HPRN, Starting on Thu09/08/22 at 1615, Until Discontinu ed, Routine, Pain (scale 1-3) [facility] diphenhydrA MINE (BENADRYL) tablet 25 mg 2021-11 21:15: 19 Yes 25mg 25 mg, Oral, Q6HPRN, Starting on Thu09/08/22 at 1615, Until Discontinu ed, Routine, Sleep, Itching [facility] ondansetron (ZOFRAN (PF)) injection 4 mg 2021-11 21:15: 19 Yes 4mg 4 mg, Slow IV Push, Q8HPRN, Starting on Thu09/08/22 at 1615, Until Discontinu ed, Routine, Nausea and Vomiting (N/V) [facility] simethicone (GAS RELIEF (SIMETHICON E)) chewable tablet 160 mg 2021-11 21:15: 19 Yes 160mg 160 mg, Oral, PC+HSPRN, Starting on Thu09/08/22 at 1615, Until Discontinu ed, Routine, Gas [facility] docusate (COLACE) capsule 200 mg 2021-11 21:15: 19 Yes 200mg 200 mg, Oral, QDAILYPRN, Starting on Thu09/08/22 at 1615, Until Discontinu ed, Routine, Constipati on [facility] magnesium hydroxide (MILK OF MAGNESIA) 400 mg/5 mL suspension 30 mL 2021-11 21:15: 19 Yes 30mL 30 mL, Oral, QDAILYPRN, Starting on Thu09/08/22 at 1615, Until Discontinu ed, Routine, Constipati on [facility] oxytocin (PITOCIN) 30 units in NS 500 mL IV infusion 2021-11 21:15: 18 Yes 600mL/h 600 mL/hr, IV Infusion, PRN, For post delivery uterine atony., Starting on Thu09/08/[address] at 600 mL/hr for 1 hr then 150 mL/hr for 1 hr.
[facility] oxytocin (PITOCIN) 30 units in NS 500 mL IV infusion 2021-11 21:15: 18 Yes 300mL/h 300 mL/hr, IV Infusion, SEE-INSTRU CTIONS, Starting on Thu09/08/[address] art at 300 mL/hr for 1 hr then 150 mL/hr for 1 hr. & nbsp; For post delivery uterotonic .
[facility] benzocaine- menthol (DERMOPLAST ) 20-0.5 % topical spray 2021-11 21:15: 18 Yes Topical, PRN, Starting on Thu09/08/22 at 1615, Until Discontinu ed, Routine, Perineum discomfort [facility] fentaNYL-ro pivacaine 2 mcg/mL-0.1 % (PF) in NS 200 mL epidural infusion RTU 2021-11 17:18: 00 09-08 22:23 :48 No Epidural, ONCE INTRA PROCEDURE, Starting on Thu09/08/22 at 1218, Until Thu09/08/22 at 1723, Routine, Intra-op [facility] lidocaine-e pinephrine (XYLOCAINE W/EPINEPHRI NE) 1.5 %-1:200,000 injection 2021-11 17:13: 00 09-08 22:23 :48 No Intraderma l, ONCE INTRA PROCEDURE, Starting on Thu09/08/22 at 1213, Until Thu09/08/22 at 1723, Routine, Intra-op [facility] lidocaine in NaCl,iso-os mo(PF) 100 mg/10 mL (1 %) injection syringe 2021-11 17:10: 00 09-08 22:23 :48 No Slow IV Push, ONCE INTRA PROCEDURE, Starting on Thu09/08/22 at 1210, Until Thu09/08/22 at 1723, Routine, Intra-op [facility] cetirizine HCl (ZYRTEC ORAL) 2021-11 16:20: 49 Yes Take by mouth. [facility] lactated ringers IV infusion 500 mL 2021-11 09:30: 00 09-08 16:23 :13 No 500mL at 999 mL/hr, 500 mL, IV Infusion, ONCE, 1 dose, On Thu09/08/22 at 0430, Routine [facility] sodium citrate-cit urvashi acid (BICITRA) 500-334 mg/5 mL solution 30 mL 2021-11 09:20: 25 09-08 16:24 :00 No 30mL 30 mL, Oral, PRE-PROCED URE ONCE, 1 dose, Starting on Thu09/08/22 at 0420, Until Discontinu ed, Routine, Surgery/Pr ocedure [facility] oxytocin (PITOCIN) 30 units in NS 500 mL IV infusion 2021-11 09:20: 22 09-08 21:39 :33 No 2mU/min at 2-40 mL/hr, IV Infusion, TITRATE, Starting on Thu09/08/22 at 0420, Until Thu09/08/22 at 1639, CHERYL [facility] D5W-LR IV infusion 1,000 mL 2021-11 09:20: 22 09-08 21:39 :33 No 1000mL at 1-125 mL/hr, IV Infusion, TITRATE, Starting on Thu09/08/22 at 0420, Until Thu09/08/22 at 1639, Routine [facility] FENTanyl PF (SUBLIMAZE (PF)) injection 100 mcg 2021-11 09:20: 19 09-08 21:24 :48 No 100ug 100 mcg, Slow IV Push, Q1HPRN, Starting on Thu09/08/22 at 0420, Until Thu09/08/22 at 1624, Routine, contractio n pain without an epidural and SVE < 8 cm and Cat I strip [facility] cetirizine HCl (ZYRTEC ORAL) 2021-11 0 04:58: 18 Yes Take by mouth. [facility] cetirizine HCl (ZYRTEC ORAL) 2021-11 0 01:08: 53 Yes Take by mouth. [facility] busPIRone 7.5 mg tablet 2021-11 00:00: 00 09-10 04:59 :00 No [id number] 7.5mg Take 1 tablet by mouth in the morning and 1 tablet in the evening. Do all this for 14 days. [facility] SERTraline (ZOLOFT) 50 mg tablet 08-12 00:00: 00 09-24 00:00 :00 No [id number] 50mg Take 1 tablet by mouth in the morning. [facility] busPIRone 10 mg tablet 08-12 00:00: 00 08-26 00:00 :00 No [id number] 10mg Take 1 tablet by mouth in the morning and 1 tablet in the evening. [facility] cetirizine HCl (ZYRTEC ORAL) 08-06 19:14: 48 Yes Take by mouth. [facility] albuterol 90 mcg/actuati on inhaler 07-29 00:00: 00 Yes [id number] 2{puff} Inhale 2 Puffs every 6 (six) hours as needed for Wheezing or Shortness of Breath. [facility] acetaminoph en (TYLENOL ORAL) 07-08 14:46: 18 Yes Take by mouth. [facility] busPIRone 5 mg tablet 07-08 00:00: 00 08-12 00:00 :00 No [id number] 5mg Take 1 tablet by mouth in the morning and 1 tablet at noon and 1 tablet in the evening. [facility] albuterol 90 mcg/actuati on inhaler 15 00:00: 00 07-29 00:00 :00 No [id number] 2{puff} Inhale 2 Puffs every 6 (six) hours as needed for Wheezing or Shortness of Breath. [facility] busPIRone 5 mg tablet 06-23 00:00: 00 07-08 00:00 :00 No [id number] 5mg Take 1 tablet by mouth in the morning and 1 tablet in the evening. [facility] acetaminoph en (TYLENOL) tablet 1,000 mg 06-12 08:30: 00 06-12 08:24 :00 No 1000mg 1,000 mg, Oral, ONCE, 1 dose, On Maryan 06/12/22 at 0330, CHERYL [facility] acetaminoph en (TYLENOL ORAL) 05-13 13:09: 53 Yes Take by mouth. [facility] magnesium oxide 400 mg (241.3 mg magnesium) tablet 04-25 00:00: 00 09-09 00:00 :00 No [id number] 400mg Take 1 tablet by mouth daily. [facility] cetirizine HCl (ZYRTEC ORAL) 04-24 13:09: 08 Yes Take by mouth. [facility] cetirizine HCl (ZYRTEC ORAL) 505 11:32: 30 Yes Take by mouth. [facility] ondansetron (ZOFRAN) 4 mg tablet 07 00:00: 00 09-09 00:00 :00 No 4mg Take 1 tablet by mouth every 8 (eight) hours as needed for Nausea and Vomiting (N/V). Pt to take prn nausea and vomiting not controlled by other medication . [facility] azithromyci n 500 mg tablet 02-19 00:00: 02-21 04:59 :00 No [id number] 1000mg Take 2 tablets by mouth daily for 1 day. [facility] metoclopram ayden HCl 10 mg tablet 02-18 00:00: 00 08-12 00:00 :00 No [id number] 10mg Take 1 tablet by mouth every 6 (six) hours as needed for Nausea and Vomiting (N/V). [facility] PARoxetine 30 mg tablet 2020-11 00:00: 00 02-18 00:00 :00 No [id number] 30mg Take 1 tablet by mouth daily. [facility] albuterol 90 mcg/actuati on inhaler 06-27 00:00: 00 06-30 00:00 :00 No [id number] 2{puff} Inhale 2 Puffs every 6 (six) hours as needed for Wheezing or Shortness of Breath. [facility] LOESTRIN FE 1 mg-20 mcg (21)/75 mg (7) tablet - 00:00: 00 02-18 00:00 :00 No [id number] 1{tbl} Take 1 tablet by mouth daily. [facility] PARoxetine 20 mg tablet 06-27 00:00: 00 09-30 00:00 :00 No [id number] 20mg Take 1 tablet by mouth daily. [facility] LOESTRIN FE 1 mg-20 mcg (21)/75 mg (7) tablet 03-18 00:00: 00 06-27 00:00 :00 No 1{tbl} Take 1 tablet by mouth daily. [facility] lidocaine (LIDODERM) 5 % (700 mg/patch) patch 1 Patch 02-21 07:00: 00 02-21 18:59 :00 No 1{patch } 1 Patch, Topical, Administer over 12 Hours, ONCE, 1 dose, [facility] 02/21/21 at 0200, Routine [facility] hydrocortis one 2.5 % cream 02-21 06:13: 00 02-21 06:14 :00 No Topical (Apply To Affected Areas), ONCE, 1 dose, [facility] 02/21/21 at 0115, Routine [facility] ibuprofen (IBU) tablet 800 mg 02-21 05:15: 00 02-21 04:16 :00 No 800mg 800 mg, Oral, ONCE, 1 dose, [facility] 02/21/21 at 0015, CHERYL [facility] HYDROcodone -acetaminop hen (NORCO) 10-325 mg tablet 1 tablet 02-21 05:15: 00 02-21 04:16 :00 No 1{tbl} 1 tablet, Oral, ONCE NOW, 1 dose, [facility] 02/21/21 at 0015, Routine [facility] lidocaine 5 % (700 mg/patch) patch 02-21 00:00: 00 02-18 00:00 :00 No [id number] 1{patch } Apply 1 Patch to area(s) every 24 (twenty-fo ur) hours as needed for Localized pain. [facility] ibuprofen 800 mg tablet 02-21 00:00: 03-01 04:59 :00 No [id number] 800mg Take 1 tablet by mouth 3 (three) times daily with meals for 7 days. [facility] traMADoL 50 mg tablet 02-21 00:00: 00 03-01 04:59 :00 No [id number] 50mg Take 1 tablet by mouth every 6 (six) hours as needed for Pain (scale 7-10) for up to 7 days. Indication s: acute pain [facility] cephALEXin (KEFLEX) 250 mg capsule 02-21 00:00: 00 02-25 04:59 :00 No [id number] 250mg Take 1 capsule by mouth 4 (four) times daily for 3 days. [facility] LOESTRIN FE 1 mg-20 mcg (21)/75 mg (7) tablet 12-25 00:00: 00 Yes [id number] 1{tbl} Take 1 tablet by mouth daily. [facility] montelukast 10 mg tablet 12-18 00:00: 00 10-18 00:00 :00 No 10mg Take 1 tablet by mouth in the morning. [facility] medroxyPROG ESTERone (DEPO-PROVE RA) injection 150 mg 2019-11 18:15: 00 09-18 17:11 :00 No 150mg [facility] Kenalog (Triamcinol one) Kenalog (Triamcinol one) 2019-11 00:00: 00 No 40mg [facility] medroxyPROG ESTERone (DEPO-PROVE RA) injection 150 mg 06-20 22:15: 00 06-20 21:02 :00 No 150mg [facility] medroxyPROG ESTERone (DEPO-PROVE RA) injection 150 mg 03-21 15:00: 00 03-21 17:52 :00 No 150mg 150 mg, Intramuscu lar, ONCE, 1 dose, Thu03/21/20 at 1000, Routine [facility] 123/iron/fo lic/omeg3s (ONE-A-DAY WOMEN'S 1 ORAL) 03-21 13:31: 09 03-21 00:00 :00 No Take by mouth daily. [facility] vitamin w/FA tablet 03-21 00:00: 00 09-09 00:00 :00 No [id number] 1{tbl} Take 1 tablet by mouth daily. [facility] vitamin w/FA tablet 03-21 00:00: 09-09 00:00 :00 No [id number] 1{tbl} Take 1 tablet by mouth daily. [facility] docusate calcium 240 mg capsule 03-21 00:00: 04-10 00:00 :00 No [id number] 240mg Take 1 capsule by mouth once daily as needed for Constipati on. [facility] ferrous sulfate 325 mg (65 mg iron) tablet 03-21 00:00: 04-10 00:00 :00 No [id number] 325mg Take 1 tablet by mouth 2 (two) times daily. [facility] ibuprofen 600 mg tablet 03-21 00:00: 04-10 00:00 :00 No [id number] 600mg Take 1 tablet by mouth every 6 (six) hours as needed (Pain). Take with food or milk. [facility] rho(D) immune globulin (RHOGAM) syringe 300 mcg 03-20 15:16: 11 Yes 300ug 300 mcg, Intramuscu lar, ONCE, For 1 dose, Conditiona l, Routine [facility] ondansetron (ZOFRAN (PF)) injection 4 mg 03-20 15:16: 06 Yes 4mg 4 mg, Slow IV Push, Q8HPRN, Starting Thu03/20/20 at 1016, Until Discontinu ed, Routine, Nausea and Vomiting (N/V) [facility] simethicone (GAS RELIEF (SIMETHICON E)) chewable tablet 160 mg 03-20 15:16: 06 Yes 160mg 160 mg, Oral, PC+HSPRN, Starting Thu03/20/20 at 1016, Until Discontinu ed, Routine, Gas [facility] magnesium hydroxide (MILK OF MAGNESIA) 400 mg/5 mL suspension 30 mL 03-20 15:16: 06 Yes 30mL 30 mL, Oral, QDAILYPRN, Starting Thu03/20/20 at 1016, Until Discontinu ed, Routine, Constipati on [facility] HYDROcodone -acetaminop hen (NORCO 5) 5-325 mg tablet 1 tablet 03-20 15:16: 05 Yes 1{tbl} 1 tablet, Oral, Q6HPRN, Starting Thu03/20/20 at 1016, Until Discontinu ed, Routine, Pain (scale 7-10) [facility] ibuprofen (IBU) tablet 600 mg 03-20 15:16: 05 Yes 600mg 600 mg, Oral, Q6HPRN, Starting Thu03/20/20 at 1016, Until Discontinu ed, Routine, Pain (scale 4-6) [facility] acetaminoph en (TYLENOL) tablet 650 mg 03-20 15:16: 05 Yes 650mg 650 mg, Oral, Q6HPRN, Starting Thu03/20/20 at 1016, Until Discontinu ed, Routine, Pain (scale 1-3) [facility] diphenhydrA MINE (BENADRYL) tablet 25 mg 03-20 15:16: 05 Yes 25mg 25 mg, Oral, Q6HPRN, Starting Thu03/20/20 at 1016, Until Discontinu ed, Routine, Sleep, Itching [facility] docusate calcium (SURFAK) capsule 240 mg 03-20 15:16: 05 Yes 240mg 240 mg, Oral, QDAILYPRN, Starting Thu03/20/20 at 1016, Until Discontinu ed, Routine, Constipati on [facility] benzocaine- menthol (DERMOPLAST ) 20-0.5 % topical spray 03-20 15:16: 05 Yes Topical, PRN, Starting Thu03/20/20 at 1016, Until Discontinu ed, Routine, Perineum discomfort [facility] acetaminoph en (TYLENOL) tablet 650 mg 03-19 21:00: 00 03-19 19:50 :00 No 650mg 650 mg, Oral, ONCE, 1 dose, 03/19/20 at 1600, Routine [facility] D5W-LR IV infusion 1,000 mL 03-19 17:45: 00 03-20 15:16 :11 No 1000mL at 125 mL/hr, IV Infusion, CONTINUOUS , Starting 03/19/20 at 1245, Until 03/20/20 at 1016, Routine [facility] proMETHazin e (PHENERGAN) 25 mg in NaCl 0.9% (NS) 50 mL piggyback 03-19 17:35: 02 03-20 15:16 :11 No 25mg 25 mg, IV Piggyback, Q6HPRN, Starting 03/19/20 at 1235, Until 03/20/20 at 1016, 50 mL [facility] FENTanyl PF (SUBLIMAZE (PF)) injection 100 mcg 03-19 17:35: 02 03-20 15:16 :11 No 100ug 100 mcg, Slow IV Push, Q1HPRN, Starting 03/19/20 at 1235, Until 03/20/20 at 1016, Routine, Pain (scale 7-10), contractio n pain without an epidural and SVE < 8 cm and Cat I strip [facility] lactated ringers IV infusion 500 mL 03-19 17:35: 01 03-20 15:16 :11 No 500mL at 999 mL/hr, 500 mL, IV Infusion, PRN - SEE INSTRUCTIO NS, Starting 03/19/20 at 1235, Until 03/20/20 at 1016, Routine [facility] LR 1000 mL + oxytocin 20 units IV Solution 03-19 17:35: 01 03-20 15:16 :11 No 2mU/min at 6-120 mL/hr, IV Infusion, TITRATE, Starting 03/19/20 at 1235, Until 03/20/20 at 1016, CHERYL [facility] 123/iron/fo lic/omeg3s (ONE-A-DAY WOMEN'S 1 ORAL) 03-12 23:40: 14 Yes Take by mouth daily. [facility] albuterol 90 mcg/actuati on inhaler 02-16 00:00: 00 04-10 00:00 :00 No [id number] 2{puff} Inhale 2 Puffs every 6 (six) hours as needed for Wheezing or Shortness of Breath. [facility] 123/iron/fo lic/omeg3s (ONE-A-DAY WOMEN'S 1 ORAL) 02-01 20:29: 34 Yes Take by mouth daily. [facility] 123/iron/fo lic/omeg3s (ONE-A-DAY WOMEN'S 1 ORAL) 01-28 14:04: 54 Yes Take by mouth daily. [facility] 123/iron/fo lic/omeg3s (ONE-A-DAY WOMEN'S 1 ORAL) 01-17 22:30: 16 Yes Take by mouth daily. [facility] vitamin w/FA (PRENATABS RX) tablet 1 tablet 01-17 15:00: 00 Yes 1{tbl} 1 tablet, Oral, DAILY, First dose on Thu01/18/20 at 0900, Until Discontinu ed, Routine [facility] ondansetron (ZOFRAN (PF)) injection 4 mg 01-17 06:30: 00 01-17 06:37 :00 No 4mg 4 mg, Slow IV Push, ONCE, 1 dose, Thu01/18/20 at 0045, Routine [facility] D5W 0.45% NaCl (1/2NS) IV infusion 1,000 mL 01-17 06:15: 00 Yes 1000mL at 100 mL/hr, 1,000 mL, IV Infusion, CONTINUOUS , Starting Thu01/18/20 at 0015, Until Discontinu ed, CHERYL [facility] magnesium sulfate in LR 40 gram/500 mL IV Solution 01-17 06:15: 00 01-17 16:18 :25 No 2g/h 2 g/hr (25 mL/hr), at 25 mL/hr, IV Infusion, CONTINUOUS , Starting Thu01/18/20 at 0015, Until Thu01/18/20 at 1018, CHERYL [facility] lactated ringers IV infusion 1,000 mL 01-17 05:30: 00 Yes 1000mL at 50 mL/hr, 1,000 mL, IV Infusion, CONTINUOUS , Starting Thu01/17/20 at 2330, Until Discontinu ed, Routine [facility] metroNIDAZO LE (FLAGYL) tablet 500 mg 01-17 05:30: 00 Yes 500mg 500 mg, Oral, BID, First dose on Thu01/17/20 at 2330, Until Discontinu ed, Routine
Reason for Anti-Infec tive: Documented Infection< br>Documen trish Infection Site: Pelvic
Duration of Therapy: 7 days [facility] alum-mag hydroxide-s imeth (MAALOX PLUS / MAG-AL PLUS) 200-200-20 mg/5 mL suspension 30 mL 01-17 05:20: 16 Yes 30mL 30 mL, Oral, Q6HPRN, Starting Thu01/17/20 at 2320, Until Discontinu ed, Routine, Indigestio n [facility] docusate calcium (SURFAK) capsule 240 mg 01-17 05:20: 16 Yes 240mg 240 mg, Oral, QHSPRN, Starting Thu01/17/20 at 232, Until Discontinu ed, Routine, Constipati on [facility] magnesium hydroxide (MILK OF MAGNESIA) 400 mg/5 mL suspension 30 mL 01-17 05:20: 15 Yes 30mL 30 mL, Oral, QDAILYPRN, Starting Thu01/17/20 at 232, Until Discontinu ed, Routine, Constipati on [facility] lactated ringers IV infusion 1,000 mL 01-17 02:45: 00 01-17 02:30 :00 No 1000mL at 999 mL/hr, 1,000 mL, Intravenou s, ONCE, 1 dose, Thu01/17/20 at 2044, Routine [facility] metroNIDAZO LE 500 mg tablet 01-17 00:00: 00 01-24 04:59 :00 No [id number] 500mg Take 1 tablet by mouth 2 (two) times daily for 6 days. [facility] ampicillin (POLYCILLIN -N) 2,000 mg in NaCl 0.9% (NS) 100 mL MINI-BAG 01-16 22:45: 00 Yes 2g 2,000 mg (2 g), IV Piggyback, Q6H ABX, First dose on Thu01/17/20 at 1645, Until Discontinu ed, 100 mL
Reas on for Anti-Infec tive: Empiric Non-Surgic al Prophylaxi s
Durat ion of therapy: 72 hours
S pecific indication : Abx latency [facility] betamethaso ne acet,sod phos (CELESTONE SOLUSPAN) 6 mg/mL injection 12 mg 01-16 22:45: 00 01-17 21:52 :00 No 12mg 12 mg, Intramuscu lar, Q24H, 2 doses, First dose on Thu01/17/20 at 1645, Last dose on Thu01/18/20 at 1645, Routine [facility] azithromyci n (ZITHROMAX) tablet 1,000 mg 01-16 22:45: 00 01-16 22:30 :00 No 1000mg 1,000 mg, Oral, ONCE, 1 dose, Thu01/17/20 at 1645, CHERYL
Re ason for Anti-Infec tive: Empiric Non-Surgic al Prophylaxi s
Durat ion of therapy: 72 hours
S pecific indication : suspected PPROM, abx for latency [facility] D5W-LR IV infusion 1,000 mL 01-16 20:10: 00 Yes 1000mL at 125 mL/hr, IV Infusion, CONTINUOUS , Starting Thu01/17/20 at 1415, Until Discontinu ed, Routine [facility] lactated ringers IV infusion 1,000 mL 01-16 20:10: 00 01-16 20:36 :00 No 1000mL at 999 mL/hr, 1,000 mL, IV Infusion, ONCE, 1 dose, Tu01/17/20 at 1415, CHERYL [facility] 123/iron/fo lic/omeg3s (ONE-A-DAY WOMEN'S 1 ORAL) 01-16 17:50: 04 Yes Take by mouth daily. [facility] 123/iron/fo lic/omeg3s (ONE-A-DAY WOMEN'S 1 ORAL) 01-10 03:17: 24 Yes Take by mouth daily. [facility] D5W-LR IV infusion 1,000 mL 01-10 00:15: 00 Yes 1000mL at 125 mL/hr, IV Infusion, CONTINUOUS , Starting 01/09/20 at 1815, Until Discontinu ed, Routine [facility] lactated ringers IV infusion 1,000 mL 01-10 00:15: 00 01-09 23:20 :00 No 1000mL at 999 mL/hr, 1,000 mL, IV Infusion, ONCE, 1 dose, 01/09/20 at 1815, Routine [facility] metoclopram ayden HCl (REGLAN) injection 10 mg 01-09 23:10: 00 01-10 00:23 :00 No 10mg 10 mg, Slow IV Push, ONCE, 1 dose, 01/09/20 at 1715, Routine [facility] albuterol 90 mcg/actuati on inhaler 11-17 00:00: 00 06-27 00:00 :00 No [id number] 2{puff} Inhale 2 Puffs every 6 (six) hours as needed for Wheezing or Shortness of Breath. [facility] 123/iron/fo lic/omeg3s (ONE-A-DAY WOMEN'S 1 ORAL) 08-01 19:53: 00 Yes Take by mouth daily. [facility] norgestimat e-ethinyl estradiol 0.25-35 mg-mcg per tablet -17 00:00: 00 Yes [id number] 1{tbl} Take 1 tablet by mouth daily. [facility] ALBUTEROL INHALE 07-28 21:36: 25 Yes Inhale. [facility] albuterol (VENTOLIN) 90 mcg/actuati on inhaler 07-28 00:00: 00 Yes 2{puff} Inhale 2 Puffs every 4 (four) hours as needed for Wheezing or Shortness of Breath. [facility] Montelukast Sodium 10 MG Montelukast Sodium 10 MG No 1{table t} QD Montelukas t Sodium 10 MG Propranolol HCl 10 MG Propranolol HCl 10 MG No 1{table t} QD Propranolo l HCl 10 MG methIMAzole 5 MG methIMAzole 5 MG No 1{table t} methIMAzol e 5 MG Immunizations Ordered Immunization Name Filled Immunization Name Date Status Comments Source Moderna COVID-19 Vaccine Moderna COVID-19 Vaccine 2021-07-26 09:17:00 Completed [facility] Moderna COVID-19 Vaccine Moderna COVID-19 Vaccine 2021-07-26 09:17:00 Completed [facility] Moderna COVID-19 Vaccine Moderna COVID-19 Vaccine 2021-07-26 09:17:00 Completed [facility] Moderna COVID-19 Vaccine Moderna COVID-19 Vaccine 2021-07-26 09:17:00 Completed [facility] Moderna COVID-19 Vaccine Moderna COVID-19 Vaccine 2021-07-26 09:17:00 Completed [facility] Moderna COVID-19 Vaccine Moderna COVID-19 Vaccine 2021-07-26 09:17:00 Completed [facility] Moderna COVID-19 Vaccine Moderna COVID-19 Vaccine 2021-07-26 09:17:00 Completed [facility] Moderna COVID-19 Vaccine Moderna COVID-19 Vaccine 2021-07-26 09:17:00 Completed [facility] Moderna COVID-19 Vaccine Moderna COVID-19 Vaccine 2021-07-26 09:17:00 Completed [facility] Moderna COVID-19 Vaccine Moderna COVID-19 Vaccine 2021-07-26 09:17:00 Completed [facility] Moderna COVID-19 Vaccine Moderna COVID-19 Vaccine 2021-07-26 09:17:00 Completed [facility] Moderna COVID-19 Vaccine Moderna COVID-19 Vaccine 2021-06-28 11:31:00 Completed [facility] Moderna COVID-19 Vaccine Moderna COVID-19 Vaccine 2021-06-28 11:31:00 Completed [facility] Moderna COVID-19 Vaccine Moderna COVID-19 Vaccine 2021-06-28 11:31:00 Completed [facility] Moderna COVID-19 Vaccine Moderna COVID-19 Vaccine 2021-06-28 11:31:00 Completed [facility] Moderna COVID-19 Vaccine Moderna COVID-19 Vaccine 2021-06-28 11:31:00 Completed [facility] Moderna COVID-19 Vaccine Moderna COVID-19 Vaccine 2021-06-28 11:31:00 Completed [facility] Moderna COVID-19 Vaccine Moderna COVID-19 Vaccine 2021-06-28 11:31:00 Completed [facility] Moderna COVID-19 Vaccine Moderna COVID-19 Vaccine 2021-06-28 11:31:00 Completed [facility] Moderna COVID-19 Vaccine Moderna COVID-19 Vaccine 2021-06-28 11:31:00 Completed [facility] Moderna COVID-19 Vaccine Moderna COVID-19 Vaccine 2021-06-28 11:31:00 Completed [facility] Moderna COVID-19 Vaccine Moderna COVID-19 Vaccine 2021-06-28 11:31:00 Completed [facility] Kenalog (Triamcinolone) Kenalog (Triamcinolone) 2020-09-18 14:39:00 Completed [facility] Influenza Virus Vaccine Quad .5 mL IM 6+ MO 2019-08-31 00:00:00 Completed [facility] Influenza Virus Vaccine Quad .5 mL IM 6+ MO 2019-08-31 00:00:00 Completed [facility] Influenza Virus Vaccine Quad .5 mL IM 6+ MO 2019-08-31 00:00:00 Completed [facility] Influenza Virus Vaccine Quad .5 mL IM 6+ MO 2019-08-31 00:00:00 Completed [facility] Influenza Virus Vaccine Quad .5 mL IM 6+ MO 2019-08-31 00:00:00 Completed [facility] Influenza Virus Vaccine Quad .5 mL IM 6+ MO 2019-08-31 00:00:00 Completed [facility] Influenza Virus Vaccine Quad .5 mL IM 6+ MO 2019-08-31 00:00:00 Completed [facility] Influenza Virus Vaccine Quad .5 mL IM 6+ MO 2019-08-31 00:00:00 Completed [facility] Influenza Virus Vaccine Quad .5 mL IM 6+ MO 2019-08-31 00:00:00 Completed [facility] Influenza Virus Vaccine Quad .5 mL IM 6+ MO 2019-08-31 00:00:00 Completed [facility] Influenza Virus Vaccine Quad .5 mL IM 6+ MO 2019-08-31 00:00:00 Completed [facility] Influenza Virus Vaccine Quad .5 mL IM 6+ MO 2019-08-31 00:00:00 Completed [facility] Influenza Virus Vaccine Quad .5 mL IM 6+ MO 2019-08-31 00:00:00 Completed [facility] Influenza Virus Vaccine Quad .5 mL IM 6+ MO 2019-08-31 00:00:00 Completed [facility] Influenza Virus Vaccine Quad .5 mL IM 6+ MO 2019-08-31 00:00:00 Completed [facility] Influenza Virus Vaccine Quad .5 mL IM 6+ MO 2019-08-31 00:00:00 Completed [facility] Influenza Virus Vaccine Quad .5 mL IM 6+ MO 2019-08-31 00:00:00 Completed [facility] Influenza Virus Vaccine Quad .5 mL IM 6+ MO 2019-08-31 00:00:00 Completed [facility] Influenza Virus Vaccine Quad .5 mL IM 6+ MO 2019-08-31 00:00:00 Completed [facility] Influenza Virus Vaccine Quad .5 mL IM 6+ MO 2019-08-31 00:00:00 Completed [facility] Influenza Virus Vaccine Quad .5 mL IM 6+ MO 2019-08-31 00:00:00 Completed [facility] Influenza Virus Vaccine Quad .5 mL IM 6+ MO 2019-08-31 00:00:00 Completed [facility] Influenza Virus Vaccine Quad .5 mL IM 6+ MO 2019-08-31 00:00:00 Completed [facility] Influenza Virus Vaccine Quad .5 mL IM 6+ MO 2019-08-31 00:00:00 Completed [facility] Influenza Virus Vaccine Quad .5 mL IM 6+ MO 2019-08-31 00:00:00 Completed [facility] Influenza Virus Vaccine Quad .5 mL IM 6+ MO 2019-08-31 00:00:00 Completed [facility] Influenza Virus Vaccine Quad .5 mL IM 6+ MO 2019-08-31 00:00:00 Completed [facility] Influenza Virus Vaccine Quad .5 mL IM 6+ MO 2019-08-31 00:00:00 Completed [facility] Influenza Virus Vaccine Quad .5 mL IM 6+ MO 2019-08-31 00:00:00 Completed [facility] Influenza Virus Vaccine Quad .5 mL IM 6+ MO 2019-08-31 00:00:00 Completed [facility] Influenza Virus Vaccine Quad .5 mL IM 6+ MO 2019-08-31 00:00:00 Completed [facility] Influenza Virus Vaccine Quad .5 mL IM 6+ MO 2019-08-31 00:00:00 Completed [facility] Influenza Virus Vaccine Quad .5 mL IM 6+ MO 2019-08-31 00:00:00 Completed [facility] Influenza Virus Vaccine Quad .5 mL IM 6+ MO 2019-08-31 00:00:00 Completed [facility] Influenza Virus Vaccine Quad .5 mL IM 6+ MO 2019-08-31 00:00:00 Completed [facility] Influenza Virus Vaccine Quad .5 mL IM 6+ MO 2019-08-31 00:00:00 Completed [facility] Influenza Virus Vaccine Quad .5 mL IM 6+ MO 2019-08-31 00:00:00 Completed [facility] Influenza Virus Vaccine Quad .5 mL IM 6+ MO 2019-08-31 00:00:00 Completed [facility] Influenza Virus Vaccine Quad .5 mL IM 6+ MO 2019-08-31 00:00:00 Completed [facility] Influenza Virus Vaccine Quad .5 mL IM 6+ MO 2019-08-31 00:00:00 Completed [facility] Influenza Virus Vaccine Quad .5 mL IM 6+ MO 2019-08-31 00:00:00 Completed [facility] Influenza Virus Vaccine Quad .5 mL IM 6+ MO 2019-08-31 00:00:00 Completed [facility] Influenza Virus Vaccine Quad .5 mL IM 6+ MO 2019-08-31 00:00:00 Completed [facility] Influenza Virus Vaccine Quad .5 mL IM 6+ MO 2019-08-31 00:00:00 Completed [facility] Influenza Virus Vaccine Quad .5 mL IM 6+ MO 2019-08-31 00:00:00 Completed [facility] Influenza Virus Vaccine Quad .5 mL IM 6+ MO 2019-08-31 00:00:00 Completed [facility] Influenza Virus Vaccine Quad .5 mL IM 6+ MO 2019-08-31 00:00:00 Completed [facility] Influenza Virus Vaccine Quad .5 mL IM 6+ MO 2019-08-31 00:00:00 Completed [facility] Influenza Virus Vaccine Quad .5 mL IM 6+ MO 2019-08-31 00:00:00 Completed [facility] Influenza Virus Vaccine Quad .5 mL IM 6+ MO 2019-08-31 00:00:00 Completed [facility] Influenza Virus Vaccine Quad .5 mL IM 6+ MO 2019-08-31 00:00:00 Completed [facility] Influenza Virus Vaccine Quad .5 mL IM 6+ MO 2019-08-31 00:00:00 Completed [facility] Influenza Virus Vaccine Quad .5 mL IM 6+ MO 2019-08-31 00:00:00 Completed [facility] Influenza Virus Vaccine Quad .5 mL IM 6+ MO 2019-08-31 00:00:00 Completed [facility] Influenza Virus Vaccine Quad .5 mL IM 6+ MO 2019-08-31 00:00:00 Completed [facility] Influenza Virus Vaccine Quad .5 mL IM 6+ MO 2019-08-31 00:00:00 Completed [facility] Influenza Virus Vaccine Quad .5 mL IM 6+ MO 2019-08-31 00:00:00 Completed [facility] Influenza Virus Vaccine Quad .5 mL IM 6+ MO 2019-08-31 00:00:00 Completed [facility] Influenza Virus Vaccine Quad .5 mL IM 6+ MO 2019-08-31 00:00:00 Completed [facility] Influenza Virus Vaccine Quad .5 mL IM 6+ MO 2019-08-31 00:00:00 Completed [facility] Influenza Virus Vaccine Quad .5 mL IM 6+ MO 2019-08-31 00:00:00 Completed [facility] Influenza Virus Vaccine Quad .5 mL IM 6+ MO 2019-08-31 00:00:00 Completed [facility] Influenza Virus Vaccine Quad .5 mL IM 6+ MO 2019-08-31 00:00:00 Completed [facility] Influenza Virus Vaccine Quad .5 mL IM 6+ MO 2019-08-31 00:00:00 Completed [facility] Influenza Virus Vaccine Quad .5 mL IM 6+ MO 2019-08-31 00:00:00 Completed [facility] Influenza Virus Vaccine Quad .5 mL IM 6+ MO 2019-08-31 00:00:00 Completed [facility] Influenza Virus Vaccine Quad .5 mL IM 6+ MO 2019-08-31 00:00:00 Completed [facility] Influenza Virus Vaccine Quad .5 mL IM 6+ MO 2019-08-31 00:00:00 Completed [facility] Influenza Virus Vaccine Quad .5 mL IM 6+ MO 2019-08-31 00:00:00 Completed [facility] Influenza Virus Vaccine Quad .5 mL IM 6+ MO 2019-08-31 00:00:00 Completed [facility] Influenza Virus Vaccine Quad .5 mL IM 6+ MO 2019-08-31 00:00:00 Completed [facility] Influenza Virus Vaccine Quad .5 mL IM 6+ MO 2019-08-31 00:00:00 Completed [facility] Influenza Virus Vaccine Quad .5 mL IM 6+ MO 2019-08-31 00:00:00 Completed [facility] Influenza Virus Vaccine Quad .5 mL IM 6+ MO 2019-08-31 00:00:00 Completed [facility] Influenza Virus Vaccine Quad .5 mL IM 6+ MO 2019-08-31 00:00:00 Completed [facility] Influenza Virus Vaccine Quad .5 mL IM 6+ MO 2019-08-31 00:00:00 Completed [facility] Influenza Virus Vaccine Quad .5 mL IM 6+ MO 2019-08-31 00:00:00 Completed [facility] Influenza Virus Vaccine Quad .5 mL IM 6+ MO 2019-08-31 00:00:00 Completed [facility] Influenza Virus Vaccine Quad .5 mL IM 6+ MO 2019-08-31 00:00:00 Completed [facility] Influenza Virus Vaccine Quad .5 mL IM 6+ MO 2019-08-31 00:00:00 Completed [facility] Influenza Virus Vaccine Quad .5 mL IM 6+ MO 2019-08-31 00:00:00 Completed [facility] Influenza Virus Vaccine Quad .5 mL IM 6+ MO 2019-08-31 00:00:00 Completed [facility] Influenza Virus Vaccine Quad .5 mL IM 6+ MO 2019-08-31 00:00:00 Completed [facility] Influenza Virus Vaccine Quad .5 mL IM 6+ MO 2019-08-31 00:00:00 Completed [facility] Influenza Virus Vaccine Quad .5 mL IM 6+ MO 2019-08-31 00:00:00 Completed [facility] Influenza Virus Vaccine Quad .5 mL IM 6+ MO 2019-08-31 00:00:00 Completed [facility] Influenza Virus Vaccine Quad .5 mL IM 6+ MO 2019-08-31 00:00:00 Completed [facility] Influenza Virus Vaccine Quad .5 mL IM 6+ MO 2019-08-31 00:00:00 Completed [facility] Influenza Virus Vaccine Quad .5 mL IM 6+ MO 2019-08-31 00:00:00 Completed [facility] Influenza Virus Vaccine Quad .5 mL IM 6+ MO 2019-08-31 00:00:00 Completed [facility] Influenza Virus Vaccine Quad .5 mL IM 6+ MO 2019-08-31 00:00:00 Completed [facility] Influenza Virus Vaccine Quad .5 mL IM 6+ MO 2019-08-31 00:00:00 Completed [facility] Influenza Virus Vaccine Quad .5 mL IM 6+ MO 2019-08-31 00:00:00 Completed [facility] Influenza Virus Vaccine Quad .5 mL IM 6+ MO 2019-08-31 00:00:00 Completed [facility] Influenza Virus Vaccine Quad .5 mL IM 6+ MO 2019-08-31 00:00:00 Completed [facility] Influenza Virus Vaccine Quad .5 mL IM 6+ MO 2019-08-31 00:00:00 Completed [facility] Influenza Virus Vaccine Quad .5 mL IM 6+ MO 2019-08-31 00:00:00 Completed [facility] Influenza Virus Vaccine Quad .5 mL IM 6+ MO 2019-08-31 00:00:00 Completed [facility] Influenza Virus Vaccine Quad .5 mL IM 6+ MO 2019-08-31 00:00:00 Completed [facility] Influenza Virus Vaccine Quad .5 mL IM 6+ MO 2019-08-31 00:00:00 Completed [facility] Influenza Virus Vaccine Quad .5 mL IM 6+ MO 2019-08-31 00:00:00 Completed [facility] Influenza Virus Vaccine Quad .5 mL IM 6+ MO 2019-08-31 00:00:00 Completed [facility] Influenza Virus Vaccine Quad .5 mL IM 6+ MO 2019-08-31 00:00:00 Completed [facility] Influenza Virus Vaccine Quad .5 mL IM 6+ MO 2019-08-31 00:00:00 Completed [facility] Influenza Virus Vaccine Quad .5 mL IM 6+ MO 2019-08-31 00:00:00 Completed [facility] Influenza Virus Vaccine Quad .5 mL IM 6+ MO 2019-08-31 00:00:00 Completed [facility] Influenza Virus Vaccine Quad .5 mL IM 6+ MO 2019-08-31 00:00:00 Completed [facility] Influenza Virus Vaccine Quad .5 mL IM 6+ MO 2019-08-31 00:00:00 Completed [facility] Influenza Virus Vaccine Quad .5 mL IM 6+ MO 2019-08-31 00:00:00 Completed [facility] Influenza Virus Vaccine Quad .5 mL IM 6+ MO 2019-08-31 00:00:00 Completed [facility] Influenza Virus Vaccine Quad .5 mL IM 6+ MO 2019-08-31 00:00:00 Completed [facility] Influenza Virus Vaccine Quad .5 mL IM 6+ MO 2019-08-31 00:00:00 Completed [facility] Influenza Virus Vaccine Quad .5 mL IM 6+ MO 2019-08-31 00:00:00 Completed [facility] Influenza Virus Vaccine Quad .5 mL IM 6+ MO 2019-08-31 00:00:00 Completed [facility] Influenza Virus Vaccine Quad .5 mL IM 6+ MO 2019-08-31 00:00:00 Completed [facility] Influenza Virus Vaccine Quad .5 mL IM 6+ MO 2019-08-31 00:00:00 Completed [facility] Influenza Virus Vaccine Quad .5 mL IM 6+ MO (FLUZONE/FLULAVAL/F LUARIX) 2019-08-31 00:00:00 Completed [facility] Influenza Virus Vaccine Quad .5 mL IM 6+ MO 2019-08-31 00:00:00 Completed [facility] Influenza Virus Vaccine Quad .5 mL IM 6+ MO 2019-08-31 00:00:00 Completed [facility] Influenza Virus Vaccine Quad .5 mL IM 6+ MO 2019-08-31 00:00:00 Completed [facility] Influenza Virus Vaccine Quad .5 mL IM 6+ MO 2019-08-31 00:00:00 Completed [facility] HPV 2014-03-29 00:00:00 Completed [facility] HPV 2014-03-29 00:00:00 Completed [facility] HPV 2014-03-29 00:00:00 Completed [facility] HPV 2014-03-29 00:00:00 Completed [facility] HPV 2014-03-29 00:00:00 Completed [facility] HPV 2014-03-29 00:00:00 Completed [facility] HPV 2014-03-29 00:00:00 Completed [facility] HPV 2014-03-29 00:00:00 Completed [facility] HPV 2014-03-29 00:00:00 Completed [facility] HPV 2014-03-29 00:00:00 Completed [facility] HPV 2014-03-29 00:00:00 Completed [facility] HPV 2014-03-29 00:00:00 Completed [facility] HPV 2014-03-29 00:00:00 Completed [facility] HPV 2014-03-29 00:00:00 Completed [facility] HPV 2014-03-29 00:00:00 Completed [facility] HPV 2014-03-29 00:00:00 Completed [facility] HPV 2014-03-29 00:00:00 Completed [facility] HPV 2014-03-29 00:00:00 Completed [facility] HPV 2014-03-29 00:00:00 Completed [facility] HPV 2014-03-29 00:00:00 Completed [facility] HPV 2014-03-29 00:00:00 Completed [facility] HPV 2014-03-29 00:00:00 Completed [facility] HPV 2014-03-29 00:00:00 Completed [facility] HPV 2014-03-29 00:00:00 Completed [facility] HPV 2014-03-29 00:00:00 Completed [facility] HPV 2014-03-29 00:00:00 Completed [facility] HPV 2014-03-29 00:00:00 Completed [facility] HPV 2014-03-29 00:00:00 Completed [facility] HPV 2014-03-29 00:00:00 Completed [facility] HPV 2014-03-29 00:00:00 Completed [facility] HPV 2014-03-29 00:00:00 Completed [facility] HPV 2014-03-29 00:00:00 Completed [facility] HPV 2014-03-29 00:00:00 Completed [facility] HPV 2014-03-29 00:00:00 Completed [facility] HPV 2014-03-29 00:00:00 Completed [facility] HPV 2014-03-29 00:00:00 Completed [facility] HPV 2014-03-29 00:00:00 Completed [facility] HPV 2014-03-29 00:00:00 Completed [facility] HPV 2014-03-29 00:00:00 Completed [facility] HPV 2014-03-29 00:00:00 Completed [facility] HPV 2014-03-29 00:00:00 Completed [facility] HPV 2014-03-29 00:00:00 Completed [facility] HPV 2014-03-29 00:00:00 Completed [facility] HPV 2014-03-29 00:00:00 Completed [facility] HPV 2014-03-29 00:00:00 Completed [facility] HPV 2014-03-29 00:00:00 Completed [facility] HPV 2014-03-29 00:00:00 Completed [facility] HPV 2014-03-29 00:00:00 Completed [facility] HPV 2014-03-29 00:00:00 Completed [facility] HPV 2014-03-29 00:00:00 Completed [facility] HPV 2014-03-29 00:00:00 Completed [facility] HPV 2014-03-29 00:00:00 Completed [facility] HPV 2014-03-29 00:00:00 Completed [facility] HPV 2014-03-29 00:00:00 Completed [facility] HPV 2014-03-29 00:00:00 Completed [facility] HPV 2014-03-29 00:00:00 Completed [facility] HPV 2014-03-29 00:00:00 Completed [facility] HPV 2014-03-29 00:00:00 Completed [facility] HPV 2014-03-29 00:00:00 Completed [facility] HPV 2014-03-29 00:00:00 Completed [facility] HPV 2014-03-29 00:00:00 Completed [facility] HPV 2014-03-29 00:00:00 Completed [facility] HPV 2014-03-29 00:00:00 Completed [facility] HPV 2014-03-29 00:00:00 Completed [facility] HPV 2014-03-29 00:00:00 Completed [facility] HPV 2014-03-29 00:00:00 Completed [facility] HPV 2014-03-29 00:00:00 Completed [facility] HPV 2014-03-29 00:00:00 Completed [facility] HPV 2014-03-29 00:00:00 Completed [facility] HPV 2014-03-29 00:00:00 Completed [facility] HPV 2014-03-29 00:00:00 Completed [facility] HPV 2014-03-29 00:00:00 Completed [facility] HPV 2014-03-29 00:00:00 Completed [facility] HPV 2014-03-29 00:00:00 Completed [facility] HPV 2014-03-29 00:00:00 Completed [facility] HPV 2014-03-29 00:00:00 Completed [facility] HPV 2014-03-29 00:00:00 Completed [facility] HPV 2014-03-29 00:00:00 Completed [facility] HPV 2014-03-29 00:00:00 Completed [facility] HPV 2014-03-29 00:00:00 Completed [facility] HPV 2014-03-29 00:00:00 Completed [facility] HPV 2014-03-29 00:00:00 Completed [facility] HPV 2014-03-29 00:00:00 Completed [facility] HPV 2014-03-29 00:00:00 Completed [facility] HPV 2014-03-29 00:00:00 Completed [facility] HPV 2014-03-29 00:00:00 Completed [facility] HPV 2014-03-29 00:00:00 Completed [facility] HPV 2014-03-29 00:00:00 Completed [facility] HPV 2014-03-29 00:00:00 Completed [facility] HPV 2014-03-29 00:00:00 Completed [facility] HPV 2014-03-29 00:00:00 Completed [facility] HPV 2014-03-29 00:00:00 Completed [facility] HPV 2014-03-29 00:00:00 Completed [facility] HPV 2014-03-29 00:00:00 Completed [facility] HPV 2014-03-29 00:00:00 Completed [facility] HPV 2014-03-29 00:00:00 Completed [facility] HPV 2014-03-29 00:00:00 Completed [facility] HPV 2014-03-29 00:00:00 Completed [facility] HPV 2014-03-29 00:00:00 Completed [facility] HPV 2014-03-29 00:00:00 Completed [facility] HPV 2014-03-29 00:00:00 Completed [facility] HPV 2014-03-29 00:00:00 Completed [facility] HPV 2014-03-29 00:00:00 Completed [facility] HPV 2014-03-29 00:00:00 Completed [facility] HPV 2014-03-29 00:00:00 Completed [facility] HPV 2014-03-29 00:00:00 Completed [facility] HPV 2014-03-29 00:00:00 Completed [facility] HPV 2014-03-29 00:00:00 Completed [facility] HPV 2014-03-29 00:00:00 Completed [facility] HPV 2014-03-29 00:00:00 Completed [facility] HPV 2014-03-29 00:00:00 Completed [facility] HPV 2014-03-29 00:00:00 Completed [facility] HPV 2014-03-29 00:00:00 Completed [facility] HPV 2014-03-29 00:00:00 Completed [facility] HPV 2014-03-29 00:00:00 Completed [facility] HPV 2014-03-29 00:00:00 Completed [facility] HPV 2014-03-29 00:00:00 Completed [facility] HPV 2014-03-29 00:00:00 Completed [facility] HPV 2014-03-29 00:00:00 Completed [facility] HPV 2014-03-29 00:00:00 Completed [facility] HPV 2014-03-29 00:00:00 Completed [facility] HPV 2014-03-29 00:00:00 Completed [facility] HPV 2014-03-29 00:00:00 Completed [facility] Influenza Virus Vaccine (3+ yrs) 2013-11-29 00:00:00 Completed [facility] HPV 2013-11-29 00:00:00 Completed [facility] Influenza Virus Vaccine (3+ yrs) 2013-11-29 00:00:00 Completed [facility] HPV 2013-11-29 00:00:00 Completed [facility] Influenza Virus Vaccine (3+ yrs) 2013-11-29 00:00:00 Completed [facility] HPV 2013-11-29 00:00:00 Completed [facility] Influenza Virus Vaccine (3+ yrs) 2013-11-29 00:00:00 Completed [facility] HPV 2013-11-29 00:00:00 Completed [facility] Influenza Virus Vaccine (3+ yrs) 2013-11-29 00:00:00 Completed [facility] Influenza Virus Vaccine (3+ yrs) 2013-11-29 00:00:00 Completed [facility] HPV 2013-11-29 00:00:00 Completed [facility] HPV 2013-11-29 00:00:00 Completed [facility] Influenza Virus Vaccine (3+ yrs) 2013-11-29 00:00:00 Completed [facility] HPV 2013-11-29 00:00:00 Completed [facility] Influenza Virus Vaccine (3+ yrs) 2013-11-29 00:00:00 Completed [facility] HPV 2013-11-29 00:00:00 Completed [facility] Influenza Virus Vaccine (3+ yrs) 2013-11-29 00:00:00 Completed [facility] HPV 2013-11-29 00:00:00 Completed [facility] Influenza Virus Vaccine (3+ yrs) 2013-11-29 00:00:00 Completed [facility] HPV 2013-11-29 00:00:00 Completed [facility] Influenza Virus Vaccine (3+ yrs) 2013-11-29 00:00:00 Completed [facility] HPV 2013-11-29 00:00:00 Completed [facility] Influenza Virus Vaccine (3+ yrs) 2013-11-29 00:00:00 Completed [facility] HPV 2013-11-29 00:00:00 Completed [facility] Influenza Virus Vaccine (3+ yrs) 2013-11-29 00:00:00 Completed [facility] HPV 2013-11-29 00:00:00 Completed [facility] Influenza Virus Vaccine (3+ yrs) 2013-11-29 00:00:00 Completed [facility] HPV 2013-11-29 00:00:00 Completed [facility] Influenza Virus Vaccine (3+ yrs) 2013-11-29 00:00:00 Completed [facility] HPV 2013-11-29 00:00:00 Completed [facility] Influenza Virus Vaccine (3+ yrs) 2013-11-29 00:00:00 Completed [facility] HPV 2013-11-29 00:00:00 Completed [facility] Influenza Virus Vaccine (3+ yrs) 2013-11-29 00:00:00 Completed [facility] HPV 2013-11-29 00:00:00 Completed [facility] Influenza Virus Vaccine (3+ yrs) 2013-11-29 00:00:00 Completed [facility] HPV 2013-11-29 00:00:00 Completed [facility] Influenza Virus Vaccine (3+ yrs) 2013-11-29 00:00:00 Completed [facility] HPV 2013-11-29 00:00:00 Completed [facility] Influenza Virus Vaccine (3+ yrs) 2013-11-29 00:00:00 Completed [facility] HPV 2013-11-29 00:00:00 Completed [facility] Influenza Virus Vaccine (3+ yrs) 2013-11-29 00:00:00 Completed [facility] HPV 2013-11-29 00:00:00 Completed [facility] Influenza Virus Vaccine (3+ yrs) 2013-11-29 00:00:00 Completed [facility] HPV 2013-11-29 00:00:00 Completed [facility] Influenza Virus Vaccine (3+ yrs) 2013-11-29 00:00:00 Completed [facility] HPV 2013-11-29 00:00:00 Completed [facility] Influenza Virus Vaccine (3+ yrs) 2013-11-29 00:00:00 Completed [facility] HPV 2013-11-29 00:00:00 Completed [facility] Influenza Virus Vaccine (3+ yrs) 2013-11-29 00:00:00 Completed [facility] HPV 2013-11-29 00:00:00 Completed [facility] Influenza Virus Vaccine (3+ yrs) 2013-11-29 00:00:00 Completed [facility] HPV 2013-11-29 00:00:00 Completed [facility] Influenza Virus Vaccine (3+ yrs) 2013-11-29 00:00:00 Completed [facility] HPV 2013-11-29 00:00:00 Completed [facility] Influenza Virus Vaccine (3+ yrs) 2013-11-29 00:00:00 Completed [facility] HPV 2013-11-29 00:00:00 Completed [facility] Influenza Virus Vaccine (3+ yrs) 2013-11-29 00:00:00 Completed [facility] HPV 2013-11-29 00:00:00 Completed [facility] Influenza Virus Vaccine (3+ yrs) 2013-11-29 00:00:00 Completed [facility] HPV 2013-11-29 00:00:00 Completed [facility] Influenza Virus Vaccine (3+ yrs) 2013-11-29 00:00:00 Completed [facility] HPV 2013-11-29 00:00:00 Completed [facility] Influenza Virus Vaccine (3+ yrs) 2013-11-29 00:00:00 Completed [facility] HPV 2013-11-29 00:00:00 Completed [facility] Influenza Virus Vaccine (3+ yrs) 2013-11-29 00:00:00 Completed [facility] HPV 2013-11-29 00:00:00 Completed [facility] Influenza Virus Vaccine (3+ yrs) 2013-11-29 00:00:00 Completed [facility] HPV 2013-11-29 00:00:00 Completed [facility] Influenza Virus Vaccine (3+ yrs) 2013-11-29 00:00:00 Completed [facility] HPV 2013-11-29 00:00:00 Completed [facility] Influenza Virus Vaccine (3+ yrs) 2013-11-29 00:00:00 Completed [facility] HPV 2013-11-29 00:00:00 Completed [facility] Influenza Virus Vaccine (3+ yrs) 2013-11-29 00:00:00 Completed [facility] HPV 2013-11-29 00:00:00 Completed [facility] Influenza Virus Vaccine (3+ yrs) 2013-11-29 00:00:00 Completed [facility] HPV 2013-11-29 00:00:00 Completed [facility] Influenza Virus Vaccine (3+ yrs) 2013-11-29 00:00:00 Completed [facility] HPV 2013-11-29 00:00:00 Completed [facility] Influenza Virus Vaccine (3+ yrs) 2013-11-29 00:00:00 Completed [facility] HPV 2013-11-29 00:00:00 Completed [facility] Influenza Virus Vaccine (3+ yrs) 2013-11-29 00:00:00 Completed [facility] HPV 2013-11-29 00:00:00 Completed [facility] Influenza Virus Vaccine (3+ yrs) 2013-11-29 00:00:00 Completed [facility] HPV 2013-11-29 00:00:00 Completed [facility] Influenza Virus Vaccine (3+ yrs) 2013-11-29 00:00:00 Completed [facility] HPV 2013-11-29 00:00:00 Completed [facility] Influenza Virus Vaccine (3+ yrs) 2013-11-29 00:00:00 Completed [facility] HPV 2013-11-29 00:00:00 Completed [facility] Influenza Virus Vaccine (3+ yrs) 2013-11-29 00:00:00 Completed [facility] HPV 2013-11-29 00:00:00 Completed [facility] Influenza Virus Vaccine (3+ yrs) 2013-11-29 00:00:00 Completed [facility] HPV 2013-11-29 00:00:00 Completed [facility] Influenza Virus Vaccine (3+ yrs) 2013-11-29 00:00:00 Completed [facility] HPV 2013-11-29 00:00:00 Completed [facility] Influenza Virus Vaccine (3+ yrs) 2013-11-29 00:00:00 Completed [facility] HPV 2013-11-29 00:00:00 Completed [facility] Influenza Virus Vaccine (3+ yrs) 2013-11-29 00:00:00 Completed [facility] HPV 2013-11-29 00:00:00 Completed [facility] Influenza Virus Vaccine (3+ yrs) 2013-11-29 00:00:00 Completed [facility] Influenza Virus Vaccine (3+ yrs) 2013-11-29 00:00:00 Completed [facility] HPV 2013-11-29 00:00:00 Completed [facility] HPV 2013-11-29 00:00:00 Completed [facility] Influenza Virus Vaccine (3+ yrs) 2013-11-29 00:00:00 Completed [facility] HPV 2013-11-29 00:00:00 Completed [facility] Influenza Virus Vaccine (3+ yrs) 2013-11-29 00:00:00 Completed [facility] HPV 2013-11-29 00:00:00 Completed [facility] Influenza Virus Vaccine (3+ yrs) 2013-11-29 00:00:00 Completed [facility] HPV 2013-11-29 00:00:00 Completed [facility] Influenza Virus Vaccine (3+ yrs) 2013-11-29 00:00:00 Completed [facility] HPV 2013-11-29 00:00:00 Completed [facility] Influenza Virus Vaccine (3+ yrs) 2013-11-29 00:00:00 Completed [facility] HPV 2013-11-29 00:00:00 Completed [facility] Influenza Virus Vaccine (3+ yrs) 2013-11-29 00:00:00 Completed [facility] HPV 2013-11-29 00:00:00 Completed [facility] Influenza Virus Vaccine (3+ yrs) 2013-11-29 00:00:00 Completed [facility] HPV 2013-11-29 00:00:00 Completed [facility] Influenza Virus Vaccine (3+ yrs) 2013-11-29 00:00:00 Completed [facility] HPV 2013-11-29 00:00:00 Completed [facility] Influenza Virus Vaccine (3+ yrs) 2013-11-29 00:00:00 Completed [facility] Influenza Virus Vaccine (3+ yrs) 2013-11-29 00:00:00 Completed [facility] HPV 2013-11-29 00:00:00 Completed [facility] HPV 2013-11-29 00:00:00 Completed [facility] Influenza Virus Vaccine (3+ yrs) 2013-11-29 00:00:00 Completed [facility] HPV 2013-11-29 00:00:00 Completed [facility] Influenza Virus Vaccine (3+ yrs) 2013-11-29 00:00:00 Completed [facility] HPV 2013-11-29 00:00:00 Completed [facility] Influenza Virus Vaccine (3+ yrs) 2013-11-29 00:00:00 Completed [facility] HPV 2013-11-29 00:00:00 Completed [facility] Influenza Virus Vaccine (3+ yrs) 2013-11-29 00:00:00 Completed [facility] HPV 2013-11-29 00:00:00 Completed [facility] Influenza Virus Vaccine (3+ yrs) 2013-11-29 00:00:00 Completed [facility] HPV 2013-11-29 00:00:00 Completed [facility] Influenza Virus Vaccine (3+ yrs) 2013-11-29 00:00:00 Completed [facility] HPV 2013-11-29 00:00:00 Completed [facility] Influenza Virus Vaccine (3+ yrs) 2013-11-29 00:00:00 Completed [facility] HPV 2013-11-29 00:00:00 Completed [facility] Influenza Virus Vaccine (3+ yrs) 2013-11-29 00:00:00 Completed [facility] HPV 2013-11-29 00:00:00 Completed [facility] Influenza Virus Vaccine (3+ yrs) 2013-11-29 00:00:00 Completed [facility] HPV 2013-11-29 00:00:00 Completed [facility] Influenza Virus Vaccine (3+ yrs) 2013-11-29 00:00:00 Completed [facility] HPV 2013-11-29 00:00:00 Completed [facility] Influenza Virus Vaccine (3+ yrs) 2013-11-29 00:00:00 Completed [facility] HPV 2013-11-29 00:00:00 Completed [facility] Influenza Virus Vaccine (3+ yrs) 2013-11-29 00:00:00 Completed [facility] HPV 2013-11-29 00:00:00 Completed [facility] Influenza Virus Vaccine (3+ yrs) 2013-11-29 00:00:00 Completed [facility] HPV 2013-11-29 00:00:00 Completed [facility] Influenza Virus Vaccine (3+ yrs) 2013-11-29 00:00:00 Completed [facility] HPV 2013-11-29 00:00:00 Completed [facility] Influenza Virus Vaccine (3+ yrs) 2013-11-29 00:00:00 Completed [facility] HPV 2013-11-29 00:00:00 Completed [facility] Influenza Virus Vaccine (3+ yrs) 2013-11-29 00:00:00 Completed [facility] HPV 2013-11-29 00:00:00 Completed [facility] Influenza Virus Vaccine (3+ yrs) 2013-11-29 00:00:00 Completed [facility] HPV 2013-11-29 00:00:00 Completed [facility] Influenza Virus Vaccine (3+ yrs) 2013-11-29 00:00:00 Completed [facility] HPV 2013-11-29 00:00:00 Completed [facility] Influenza Virus Vaccine (3+ yrs) 2013-11-29 00:00:00 Completed [facility] HPV 2013-11-29 00:00:00 Completed [facility] Influenza Virus Vaccine (3+ yrs) 2013-11-29 00:00:00 Completed [facility] HPV 2013-11-29 00:00:00 Completed [facility] Influenza Virus Vaccine (3+ yrs) 2013-11-29 00:00:00 Completed [facility] HPV 2013-11-29 00:00:00 Completed [facility] Influenza Virus Vaccine (3+ yrs) 2013-11-29 00:00:00 Completed [facility] HPV 2013-11-29 00:00:00 Completed [facility] Influenza Virus Vaccine (3+ yrs) 2013-11-29 00:00:00 Completed [facility] HPV 2013-11-29 00:00:00 Completed [facility] Influenza Virus Vaccine (3+ yrs) 2013-11-29 00:00:00 Completed [facility] HPV 2013-11-29 00:00:00 Completed [facility] Influenza Virus Vaccine (3+ yrs) 2013-11-29 00:00:00 Completed [facility] HPV 2013-11-29 00:00:00 Completed [facility] Influenza Virus Vaccine (3+ yrs) 2013-11-29 00:00:00 Completed [facility] HPV 2013-11-29 00:00:00 Completed [facility] Influenza Virus Vaccine (3+ yrs) 2013-11-29 00:00:00 Completed [facility] HPV 2013-11-29 00:00:00 Completed [facility] Influenza Virus Vaccine (3+ yrs) 2013-11-29 00:00:00 Completed [facility] HPV 2013-11-29 00:00:00 Completed [facility] Influenza Virus Vaccine (3+ yrs) 2013-11-29 00:00:00 Completed [facility] HPV 2013-11-29 00:00:00 Completed [facility] Influenza Virus Vaccine (3+ yrs) 2013-11-29 00:00:00 Completed [facility] HPV 2013-11-29 00:00:00 Completed [facility] Influenza Virus Vaccine (3+ yrs) 2013-11-29 00:00:00 Completed [facility] HPV 2013-11-29 00:00:00 Completed [facility] Influenza Virus Vaccine (3+ yrs) 2013-11-29 00:00:00 Completed [facility] HPV 2013-11-29 00:00:00 Completed [facility] Influenza Virus Vaccine (3+ yrs) 2013-11-29 00:00:00 Completed [facility] HPV 2013-11-29 00:00:00 Completed [facility] Influenza Virus Vaccine (3+ yrs) 2013-11-29 00:00:00 Completed [facility] HPV 2013-11-29 00:00:00 Completed [facility] Influenza Virus Vaccine (3+ yrs) 2013-11-29 00:00:00 Completed [facility] HPV 2013-11-29 00:00:00 Completed [facility] Influenza Virus Vaccine (3+ yrs) 2013-11-29 00:00:00 Completed [facility] Influenza Virus Vaccine (3+ yrs) 2013-11-29 00:00:00 Completed [facility] HPV 2013-11-29 00:00:00 Completed [facility] HPV 2013-11-29 00:00:00 Completed [facility] Influenza Virus Vaccine (3+ yrs) 2013-11-29 00:00:00 Completed [facility] HPV 2013-11-29 00:00:00 Completed [facility] Influenza Virus Vaccine (3+ yrs) 2013-11-29 00:00:00 Completed [facility] HPV 2013-11-29 00:00:00 Completed [facility] Influenza Virus Vaccine (3+ yrs) 2013-11-29 00:00:00 Completed [facility] HPV 2013-11-29 00:00:00 Completed [facility] Influenza Virus Vaccine (3+ yrs) 2013-11-29 00:00:00 Completed [facility] HPV 2013-11-29 00:00:00 Completed [facility] Influenza Virus Vaccine (3+ yrs) 2013-11-29 00:00:00 Completed [facility] HPV 2013-11-29 00:00:00 Completed [facility] Influenza Virus Vaccine (3+ yrs) 2013-11-29 00:00:00 Completed [facility] HPV 2013-11-29 00:00:00 Completed [facility] Influenza Virus Vaccine (3+ yrs) 2013-11-29 00:00:00 Completed [facility] HPV 2013-11-29 00:00:00 Completed [facility] Influenza Virus Vaccine (3+ yrs) 2013-11-29 00:00:00 Completed [facility] HPV 2013-11-29 00:00:00 Completed [facility] Influenza Virus Vaccine (3+ yrs) 2013-11-29 00:00:00 Completed [facility] HPV 2013-11-29 00:00:00 Completed [facility] Influenza Virus Vaccine (3+ yrs) 2013-11-29 00:00:00 Completed [facility] HPV 2013-11-29 00:00:00 Completed [facility] Influenza Virus Vaccine (3+ yrs) 2013-11-29 00:00:00 Completed [facility] HPV 2013-11-29 00:00:00 Completed [facility] Influenza Virus Vaccine (3+ yrs) 2013-11-29 00:00:00 Completed [facility] HPV 2013-11-29 00:00:00 Completed [facility] Influenza Virus Vaccine (3+ yrs) 2013-11-29 00:00:00 Completed [facility] HPV 2013-11-29 00:00:00 Completed [facility] Influenza Virus Vaccine (3+ yrs) 2013-11-29 00:00:00 Completed [facility] HPV 2013-11-29 00:00:00 Completed [facility] Influenza Virus Vaccine (3+ yrs) 2013-11-29 00:00:00 Completed [facility] HPV 2013-11-29 00:00:00 Completed [facility] Influenza Virus Vaccine (3+ yrs) 2013-11-29 00:00:00 Completed [facility] HPV 2013-11-29 00:00:00 Completed [facility] Influenza Virus Vaccine (3+ yrs) 2013-11-29 00:00:00 Completed [facility] HPV 2013-11-29 00:00:00 Completed [facility] Influenza Virus Vaccine (3+ yrs) 2013-11-29 00:00:00 Completed [facility] HPV 2013-11-29 00:00:00 Completed [facility] Influenza Virus Vaccine (3+ yrs) 2013-11-29 00:00:00 Completed [facility] HPV 2013-11-29 00:00:00 Completed [facility] Influenza Virus Vaccine (3+ yrs) 2013-11-29 00:00:00 Completed [facility] HPV 2013-11-29 00:00:00 Completed [facility] Influenza, split virus, trivalent, preservative (3+ Yrs) (Afluria) 2013-11-29 00:00:00 Completed HPV 2013-11-29 00:00:00 Completed Influenza Virus Vaccine (3+ yrs) 2013-11-29 00:00:00 Completed [facility] HPV 2013-11-29 00:00:00 Completed [facility] Influenza Virus Vaccine (3+ yrs) 2013-11-29 00:00:00 Completed [facility] HPV 2013-11-29 00:00:00 Completed [facility] Influenza Virus Vaccine (3+ yrs) 2013-11-29 00:00:00 Completed [facility] HPV 2013-11-29 00:00:00 Completed [facility] Influenza Virus Vaccine (3+ yrs) 2013-11-29 00:00:00 Completed [facility] HPV 2013-11-29 00:00:00 Completed [facility] HPV 2013-07-28 00:00:00 Completed [facility] HPV 2013-07-28 00:00:00 Completed [facility] HPV 2013-07-28 00:00:00 Completed [facility] HPV 2013-07-28 00:00:00 Completed [facility] HPV 2013-07-28 00:00:00 Completed [facility] HPV 2013-07-28 00:00:00 Completed [facility] HPV 2013-07-28 00:00:00 Completed [facility] HPV 2013-07-28 00:00:00 Completed [facility] HPV 2013-07-28 00:00:00 Completed [facility] HPV 2013-07-28 00:00:00 Completed [facility] HPV 2013-07-28 00:00:00 Completed [facility] HPV 2013-07-28 00:00:00 Completed [facility] HPV 2013-07-28 00:00:00 Completed [facility] HPV 2013-07-28 00:00:00 Completed [facility] HPV 2013-07-28 00:00:00 Completed [facility] HPV 2013-07-28 00:00:00 Completed [facility] HPV 2013-07-28 00:00:00 Completed [facility] HPV 2013-07-28 00:00:00 Completed [facility] HPV 2013-07-28 00:00:00 Completed [facility] HPV 2013-07-28 00:00:00 Completed [facility] HPV 2013-07-28 00:00:00 Completed [facility] HPV 2013-07-28 00:00:00 Completed [facility] HPV 2013-07-28 00:00:00 Completed [facility] HPV 2013-07-28 00:00:00 Completed [facility] HPV 2013-07-28 00:00:00 Completed [facility] HPV 2013-07-28 00:00:00 Completed [facility] HPV 2013-07-28 00:00:00 Completed [facility] HPV 2013-07-28 00:00:00 Completed [facility] HPV 2013-07-28 00:00:00 Completed [facility] HPV 2013-07-28 00:00:00 Completed [facility] HPV 2013-07-28 00:00:00 Completed [facility] HPV 2013-07-28 00:00:00 Completed [facility] HPV 2013-07-28 00:00:00 Completed [facility] HPV 2013-07-28 00:00:00 Completed [facility] HPV 2013-07-28 00:00:00 Completed [facility] HPV 2013-07-28 00:00:00 Completed [facility] HPV 2013-07-28 00:00:00 Completed [facility] HPV 2013-07-28 00:00:00 Completed [facility] HPV 2013-07-28 00:00:00 Completed [facility] HPV 2013-07-28 00:00:00 Completed [facility] HPV 2013-07-28 00:00:00 Completed [facility] HPV 2013-07-28 00:00:00 Completed [facility] HPV 2013-07-28 00:00:00 Completed [facility] HPV 2013-07-28 00:00:00 Completed [facility] HPV 2013-07-28 00:00:00 Completed [facility] HPV 2013-07-28 00:00:00 Completed [facility] HPV 2013-07-28 00:00:00 Completed [facility] HPV 2013-07-28 00:00:00 Completed [facility] HPV 2013-07-28 00:00:00 Completed [facility] HPV 2013-07-28 00:00:00 Completed [facility] HPV 2013-07-28 00:00:00 Completed [facility] HPV 2013-07-28 00:00:00 Completed [facility] HPV 2013-07-28 00:00:00 Completed [facility] HPV 2013-07-28 00:00:00 Completed [facility] HPV 2013-07-28 00:00:00 Completed [facility] HPV 2013-07-28 00:00:00 Completed [facility] HPV 2013-07-28 00:00:00 Completed [facility] HPV 2013-07-28 00:00:00 Completed [facility] HPV 2013-07-28 00:00:00 Completed [facility] HPV 2013-07-28 00:00:00 Completed [facility] HPV 2013-07-28 00:00:00 Completed [facility] HPV 2013-07-28 00:00:00 Completed [facility] HPV 2013-07-28 00:00:00 Completed [facility] HPV 2013-07-28 00:00:00 Completed [facility] HPV 2013-07-28 00:00:00 Completed [facility] HPV 2013-07-28 00:00:00 Completed [facility] HPV 2013-07-28 00:00:00 Completed [facility] HPV 2013-07-28 00:00:00 Completed [facility] HPV 2013-07-28 00:00:00 Completed [facility] HPV 2013-07-28 00:00:00 Completed [facility] HPV 2013-07-28 00:00:00 Completed [facility] HPV 2013-07-28 00:00:00 Completed [facility] HPV 2013-07-28 00:00:00 Completed [facility] HPV 2013-07-28 00:00:00 Completed [facility] HPV 2013-07-28 00:00:00 Completed [facility] HPV 2013-07-28 00:00:00 Completed [facility] HPV 2013-07-28 00:00:00 Completed [facility] HPV 2013-07-28 00:00:00 Completed [facility] HPV 2013-07-28 00:00:00 Completed [facility] HPV 2013-07-28 00:00:00 Completed [facility] HPV 2013-07-28 00:00:00 Completed [facility] HPV 2013-07-28 00:00:00 Completed [facility] HPV 2013-07-28 00:00:00 Completed [facility] HPV 2013-07-28 00:00:00 Completed [facility] HPV 2013-07-28 00:00:00 Completed [facility] HPV 2013-07-28 00:00:00 Completed [facility] HPV 2013-07-28 00:00:00 Completed [facility] HPV 2013-07-28 00:00:00 Completed [facility] HPV 2013-07-28 00:00:00 Completed [facility] HPV 2013-07-28 00:00:00 Completed [facility] HPV 2013-07-28 00:00:00 Completed [facility] HPV 2013-07-28 00:00:00 Completed [facility] HPV 2013-07-28 00:00:00 Completed [facility] HPV 2013-07-28 00:00:00 Completed [facility] HPV 2013-07-28 00:00:00 Completed [facility] HPV 2013-07-28 00:00:00 Completed [facility] HPV 2013-07-28 00:00:00 Completed [facility] HPV 2013-07-28 00:00:00 Completed [facility] HPV 2013-07-28 00:00:00 Completed [facility] HPV 2013-07-28 00:00:00 Completed [facility] HPV 2013-07-28 00:00:00 Completed [facility] HPV 2013-07-28 00:00:00 Completed [facility] HPV 2013-07-28 00:00:00 Completed [facility] HPV 2013-07-28 00:00:00 Completed [facility] HPV 2013-07-28 00:00:00 Completed [facility] HPV 2013-07-28 00:00:00 Completed [facility] HPV 2013-07-28 00:00:00 Completed [facility] HPV 2013-07-28 00:00:00 Completed [facility] HPV 2013-07-28 00:00:00 Completed [facility] HPV 2013-07-28 00:00:00 Completed [facility] HPV 2013-07-28 00:00:00 Completed [facility] HPV 2013-07-28 00:00:00 Completed [facility] HPV 2013-07-28 00:00:00 Completed [facility] HPV 2013-07-28 00:00:00 Completed [facility] HPV 2013-07-28 00:00:00 Completed [facility] HPV 2013-07-28 00:00:00 Completed [facility] HPV 2013-07-28 00:00:00 Completed [facility] HPV 2013-07-28 00:00:00 Completed [facility] HPV 2013-07-28 00:00:00 Completed HPV 2013-07-28 00:00:00 Completed [facility] HPV 2013-07-28 00:00:00 Completed [facility] HPV 2013-07-28 00:00:00 Completed [facility] HPV 2013-07-28 00:00:00 Completed [facility] Tdap 2012-06-16 00:00:00 Completed [facility] Meningococcal Vaccine 2012-06-16 00:00:00 Completed [facility] Tdap 2012-06-16 00:00:00 Completed [facility] Meningococcal Vaccine 2012-06-16 00:00:00 Completed [facility] Meningococcal Vaccine 2012-06-16 00:00:00 Completed [facility] Tdap 2012-06-16 00:00:00 Completed [facility] Meningococcal Vaccine 2012-06-16 00:00:00 Completed [facility] Tdap 2012-06-16 00:00:00 Completed [facility] TDAP 2012-06-16 00:00:00 Completed [facility] Meningococcal Vaccine 2012-06-16 00:00:00 Completed [facility] Tdap 2012-06-16 00:00:00 Completed [facility] Meningococcal Vaccine 2012-06-16 00:00:00 Completed [facility] Tdap 2012-06-16 00:00:00 Completed [facility] Meningococcal Vaccine 2012-06-16 00:00:00 Completed [facility] Tdap 2012-06-16 00:00:00 Completed [facility] Meningococcal Vaccine 2012-06-16 00:00:00 Completed [facility] Tdap 2012-06-16 00:00:00 Completed [facility] Meningococcal Vaccine 2012-06-16 00:00:00 Completed [facility] Tdap 2012-06-16 00:00:00 Completed [facility] Meningococcal Vaccine 2012-06-16 00:00:00 Completed [facility] Tdap 2012-06-16 00:00:00 Completed [facility] Meningococcal Vaccine 2012-06-16 00:00:00 Completed [facility] Tdap 2012-06-16 00:00:00 Completed [facility] Meningococcal Vaccine 2012-06-16 00:00:00 Completed [facility] Tdap 2012-06-16 00:00:00 Completed [facility] Meningococcal Vaccine 2012-06-16 00:00:00 Completed [facility] Tdap 2012-06-16 00:00:00 Completed [facility] Meningococcal Vaccine 2012-06-16 00:00:00 Completed [facility] Meningococcal Vaccine 2012-06-16 00:00:00 Completed [facility] Tdap 2012-06-16 00:00:00 Completed [facility] Meningococcal Vaccine 2012-06-16 00:00:00 Completed [facility] Tdap 2012-06-16 00:00:00 Completed [facility] TDAP 2012-06-16 00:00:00 Completed [facility] Meningococcal Vaccine 2012-06-16 00:00:00 Completed [facility] Tdap 2012-06-16 00:00:00 Completed [facility] Meningococcal Vaccine 2012-06-16 00:00:00 Completed [facility] Tdap 2012-06-16 00:00:00 Completed [facility] Meningococcal Vaccine 2012-06-16 00:00:00 Completed [facility] Tdap 2012-06-16 00:00:00 Completed [facility] Meningococcal Vaccine 2012-06-16 00:00:00 Completed [facility] Tdap 2012-06-16 00:00:00 Completed [facility] Meningococcal Vaccine 2012-06-16 00:00:00 Completed [facility] Tdap 2012-06-16 00:00:00 Completed [facility] Meningococcal Vaccine 2012-06-16 00:00:00 Completed [facility] Tdap 2012-06-16 00:00:00 Completed [facility] Meningococcal Vaccine 2012-06-16 00:00:00 Completed [facility] Meningococcal Vaccine 2012-06-16 00:00:00 Completed [facility] Tdap 2012-06-16 00:00:00 Completed [facility] Meningococcal Vaccine 2012-06-16 00:00:00 Completed [facility] Tdap 2012-06-16 00:00:00 Completed [facility] Meningococcal Vaccine 2012-06-16 00:00:00 Completed [facility] TDAP 2012-06-16 00:00:00 Completed [facility] Tdap 2012-06-16 00:00:00 Completed [facility] Meningococcal Vaccine 2012-06-16 00:00:00 Completed [facility] Tdap 2012-06-16 00:00:00 Completed [facility] Meningococcal Vaccine 2012-06-16 00:00:00 Completed [facility] Tdap 2012-06-16 00:00:00 Completed [facility] Meningococcal Vaccine 2012-06-16 00:00:00 Completed [facility] Tdap 2012-06-16 00:00:00 Completed [facility] Meningococcal Vaccine 2012-06-16 00:00:00 Completed [facility] Tdap 2012-06-16 00:00:00 Completed [facility] Meningococcal Vaccine 2012-06-16 00:00:00 Completed [facility] Tdap 2012-06-16 00:00:00 Completed [facility] Meningococcal Vaccine 2012-06-16 00:00:00 Completed [facility] Meningococcal Vaccine 2012-06-16 00:00:00 Completed [facility] TDAP 2012-06-16 00:00:00 Completed [facility] Meningococcal Vaccine 2012-06-16 00:00:00 Completed [facility] TDAP 2012-06-16 00:00:00 Completed [facility] Meningococcal Vaccine 2012-06-16 00:00:00 Completed [facility] Tdap 2012-06-16 00:00:00 Completed [facility] TDAP 2012-06-16 00:00:00 Completed [facility] Meningococcal Vaccine 2012-06-16 00:00:00 Completed [facility] TDAP 2012-06-16 00:00:00 Completed [facility] Meningococcal Vaccine 2012-06-16 00:00:00 Completed [facility] TDAP 2012-06-16 00:00:00 Completed [facility] Meningococcal Vaccine 2012-06-16 00:00:00 Completed [facility] TDAP 2012-06-16 00:00:00 Completed [facility] Meningococcal Vaccine 2012-06-16 00:00:00 Completed [facility] TDAP 2012-06-16 00:00:00 Completed [facility] Meningococcal Vaccine 2012-06-16 00:00:00 Completed [facility] TDAP 2012-06-16 00:00:00 Completed [facility] Meningococcal Vaccine 2012-06-16 00:00:00 Completed [facility] TDAP 2012-06-16 00:00:00 Completed [facility] Meningococcal Vaccine 2012-06-16 00:00:00 Completed [facility] Meningococcal Vaccine 2012-06-16 00:00:00 Completed [facility] TDAP 2012-06-16 00:00:00 Completed [facility] Tdap 2012-06-16 00:00:00 Completed [facility] Meningococcal Vaccine 2012-06-16 00:00:00 Completed [facility] TDAP 2012-06-16 00:00:00 Completed [facility] Meningococcal Vaccine 2012-06-16 00:00:00 Completed [facility] TDAP 2012-06-16 00:00:00 Completed [facility] Meningococcal Vaccine 2012-06-16 00:00:00 Completed [facility] TDAP 2012-06-16 00:00:00 Completed [facility] Meningococcal Vaccine 2012-06-16 00:00:00 Completed [facility] Meningococcal Vaccine 2012-06-16 00:00:00 Completed [facility] TDAP 2012-06-16 00:00:00 Completed [facility] Meningococcal Vaccine 2012-06-16 00:00:00 Completed [facility] TDAP 2012-06-16 00:00:00 Completed [facility] Tdap 2012-06-16 00:00:00 Completed [facility] Meningococcal Vaccine 2012-06-16 00:00:00 Completed [facility] TDAP 2012-06-16 00:00:00 Completed [facility] Meningococcal Vaccine 2012-06-16 00:00:00 Completed [facility] TDAP 2012-06-16 00:00:00 Completed [facility] Meningococcal Vaccine 2012-06-16 00:00:00 Completed [facility] TDAP 2012-06-16 00:00:00 Completed [facility] Meningococcal Vaccine 2012-06-16 00:00:00 Completed [facility] TDAP 2012-06-16 00:00:00 Completed [facility] Meningococcal Vaccine 2012-06-16 00:00:00 Completed [facility] TDAP 2012-06-16 00:00:00 Completed [facility] Meningococcal Vaccine 2012-06-16 00:00:00 Completed [facility] TDAP 2012-06-16 00:00:00 Completed [facility] Meningococcal Vaccine 2012-06-16 00:00:00 Completed [facility] TDAP 2012-06-16 00:00:00 Completed [facility] Meningococcal Vaccine 2012-06-16 00:00:00 Completed [facility] Meningococcal Vaccine 2012-06-16 00:00:00 Completed [facility] TDAP 2012-06-16 00:00:00 Completed [facility] Meningococcal Vaccine 2012-06-16 00:00:00 Completed [facility] TDAP 2012-06-16 00:00:00 Completed [facility] Tdap 2012-06-16 00:00:00 Completed [facility] Meningococcal Vaccine 2012-06-16 00:00:00 Completed [facility] TDAP 2012-06-16 00:00:00 Completed [facility] Meningococcal Vaccine 2012-06-16 00:00:00 Completed [facility] TDAP 2012-06-16 00:00:00 Completed [facility] Meningococcal Vaccine 2012-06-16 00:00:00 Completed [facility] TDAP 2012-06-16 00:00:00 Completed [facility] Meningococcal Vaccine 2012-06-16 00:00:00 Completed [facility] TDAP 2012-06-16 00:00:00 Completed [facility] Meningococcal Vaccine 2012-06-16 00:00:00 Completed [facility] TDAP 2012-06-16 00:00:00 Completed [facility] Meningococcal Vaccine 2012-06-16 00:00:00 Completed [facility] TDAP 2012-06-16 00:00:00 Completed [facility] Meningococcal Vaccine 2012-06-16 00:00:00 Completed [facility] TDAP 2012-06-16 00:00:00 Completed [facility] Meningococcal Vaccine 2012-06-16 00:00:00 Completed [facility] Meningococcal Vaccine 2012-06-16 00:00:00 Completed [facility] TDAP 2012-06-16 00:00:00 Completed [facility] Meningococcal Vaccine 2012-06-16 00:00:00 Completed [facility] TDAP 2012-06-16 00:00:00 Completed [facility] Tdap 2012-06-16 00:00:00 Completed [facility] Meningococcal Vaccine 2012-06-16 00:00:00 Completed [facility] TDAP 2012-06-16 00:00:00 Completed [facility] Meningococcal Vaccine 2012-06-16 00:00:00 Completed [facility] TDAP 2012-06-16 00:00:00 Completed [facility] Meningococcal Vaccine 2012-06-16 00:00:00 Completed [facility] TDAP 2012-06-16 00:00:00 Completed [facility] Meningococcal Vaccine 2012-06-16 00:00:00 Completed [facility] TDAP 2012-06-16 00:00:00 Completed [facility] Meningococcal Vaccine 2012-06-16 00:00:00 Completed [facility] TDAP 2012-06-16 00:00:00 Completed [facility] Meningococcal Vaccine 2012-06-16 00:00:00 Completed [facility] TDAP 2012-06-16 00:00:00 Completed [facility] Meningococcal Vaccine 2012-06-16 00:00:00 Completed [facility] Meningococcal Vaccine 2012-06-16 00:00:00 Completed [facility] TDAP 2012-06-16 00:00:00 Completed [facility] Meningococcal Vaccine 2012-06-16 00:00:00 Completed [facility] TDAP 2012-06-16 00:00:00 Completed [facility] Tdap 2012-06-16 00:00:00 Completed [facility] Meningococcal Vaccine 2012-06-16 00:00:00 Completed [facility] TDAP 2012-06-16 00:00:00 Completed [facility] Meningococcal Vaccine 2012-06-16 00:00:00 Completed [facility] TDAP 2012-06-16 00:00:00 Completed [facility] Meningococcal Vaccine 2012-06-16 00:00:00 Completed [facility] TDAP 2012-06-16 00:00:00 Completed [facility] Meningococcal Vaccine 2012-06-16 00:00:00 Completed [facility] TDAP 2012-06-16 00:00:00 Completed [facility] Meningococcal Vaccine 2012-06-16 00:00:00 Completed [facility] TDAP 2012-06-16 00:00:00 Completed [facility] Meningococcal Vaccine 2012-06-16 00:00:00 Completed [facility] TDAP 2012-06-16 00:00:00 Completed [facility] Meningococcal Vaccine 2012-06-16 00:00:00 Completed [facility] TDAP 2012-06-16 00:00:00 Completed [facility] Meningococcal Vaccine 2012-06-16 00:00:00 Completed [facility] Meningococcal Vaccine 2012-06-16 00:00:00 Completed [facility] TDAP 2012-06-16 00:00:00 Completed [facility] Tdap 2012-06-16 00:00:00 Completed [facility] Meningococcal Vaccine 2012-06-16 00:00:00 Completed [facility] TDAP 2012-06-16 00:00:00 Completed [facility] Meningococcal Vaccine 2012-06-16 00:00:00 Completed [facility] TDAP 2012-06-16 00:00:00 Completed [facility] Meningococcal Vaccine 2012-06-16 00:00:00 Completed [facility] TDAP 2012-06-16 00:00:00 Completed [facility] Meningococcal Vaccine 2012-06-16 00:00:00 Completed [facility] TDAP 2012-06-16 00:00:00 Completed [facility] Meningococcal Vaccine 2012-06-16 00:00:00 Completed [facility] TDAP 2012-06-16 00:00:00 Completed [facility] Meningococcal Vaccine 2012-06-16 00:00:00 Completed [facility] TDAP 2012-06-16 00:00:00 Completed [facility] Meningococcal Vaccine 2012-06-16 00:00:00 Completed [facility] Meningococcal Vaccine 2012-06-16 00:00:00 Completed [facility] TDAP 2012-06-16 00:00:00 Completed [facility] Meningococcal Vaccine 2012-06-16 00:00:00 Completed [facility] TDAP 2012-06-16 00:00:00 Completed [facility] Tdap 2012-06-16 00:00:00 Completed [facility] Meningococcal Vaccine 2012-06-16 00:00:00 Completed [facility] TDAP 2012-06-16 00:00:00 Completed [facility] Meningococcal Vaccine 2012-06-16 00:00:00 Completed [facility] TDAP 2012-06-16 00:00:00 Completed [facility] Meningococcal Vaccine 2012-06-16 00:00:00 Completed [facility] TDAP 2012-06-16 00:00:00 Completed [facility] Meningococcal Vaccine 2012-06-16 00:00:00 Completed [facility] TDAP 2012-06-16 00:00:00 Completed [facility] Meningococcal Vaccine 2012-06-16 00:00:00 Completed [facility] TDAP 2012-06-16 00:00:00 Completed [facility] Meningococcal Vaccine 2012-06-16 00:00:00 Completed [facility] TDAP 2012-06-16 00:00:00 Completed [facility] Meningococcal Vaccine 2012-06-16 00:00:00 Completed [facility] Meningococcal Vaccine 2012-06-16 00:00:00 Completed [facility] TDAP 2012-06-16 00:00:00 Completed [facility] Meningococcal Vaccine 2012-06-16 00:00:00 Completed [facility] TDAP 2012-06-16 00:00:00 Completed [facility] Tdap 2012-06-16 00:00:00 Completed [facility] Meningococcal Vaccine 2012-06-16 00:00:00 Completed [facility] TDAP 2012-06-16 00:00:00 Completed [facility] Meningococcal Vaccine 2012-06-16 00:00:00 Completed [facility] TDAP 2012-06-16 00:00:00 Completed [facility] Meningococcal Vaccine 2012-06-16 00:00:00 Completed [facility] TDAP 2012-06-16 00:00:00 Completed [facility] Meningococcal Vaccine 2012-06-16 00:00:00 Completed [facility] TDAP 2012-06-16 00:00:00 Completed [facility] Meningococcal Vaccine 2012-06-16 00:00:00 Completed [facility] TDAP 2012-06-16 00:00:00 Completed [facility] Meningococcal Vaccine 2012-06-16 00:00:00 Completed [facility] TDAP 2012-06-16 00:00:00 Completed [facility] Meningococcal Vaccine 2012-06-16 00:00:00 Completed [facility] TDAP 2012-06-16 00:00:00 Completed [facility] Meningococcal Vaccine 2012-06-16 00:00:00 Completed [facility] Meningococcal Vaccine 2012-06-16 00:00:00 Completed [facility] TDAP 2012-06-16 00:00:00 Completed [facility] Meningococcal Vaccine 2012-06-16 00:00:00 Completed [facility] TDAP 2012-06-16 00:00:00 Completed [facility] Tdap 2012-06-16 00:00:00 Completed [facility] Meningococcal Vaccine 2012-06-16 00:00:00 Completed [facility] Tdap 2012-06-16 00:00:00 Completed [facility] Meningococcal Vaccine 2012-06-16 00:00:00 Completed [facility] Tdap 2012-06-16 00:00:00 Completed [facility] Meningococcal Vaccine 2012-06-16 00:00:00 Completed [facility] Meningococcal Vaccine 2012-06-16 00:00:00 Completed TDAP 2012-06-16 00:00:00 Completed Tdap 2012-06-16 00:00:00 Completed [facility] Meningococcal Vaccine 2012-06-16 00:00:00 Completed [facility] Tdap 2012-06-16 00:00:00 Completed [facility] Meningococcal Vaccine 2012-06-16 00:00:00 Completed [facility] Tdap 2012-06-16 00:00:00 Completed [facility] Meningococcal Vaccine 2012-06-16 00:00:00 Completed [facility] Tdap 2012-06-16 00:00:00 Completed [facility] Meningococcal Vaccine 2012-06-16 00:00:00 Completed [facility] Varicella (varivax)(chicken pox) 2007-10-14 00:00:00 Completed [facility] Influenza Virus Vaccine - Whole 2007-10-14 00:00:00 Completed [facility] Varicella (varivax)(chicken pox) 2007-10-14 00:00:00 Completed [facility] Influenza Virus Vaccine - Whole 2007-10-14 00:00:00 Completed [facility] Varicella (varivax)(chicken pox) 2007-10-14 00:00:00 Completed [facility] Influenza Virus Vaccine - Whole 2007-10-14 00:00:00 Completed [facility] Varicella (varivax)(chicken pox) 2007-10-14 00:00:00 Completed [facility] Influenza Virus Vaccine - Whole 2007-10-14 00:00:00 Completed [facility] Varicella (varivax)(chicken pox) 2007-10-14 00:00:00 Completed [facility] Influenza Virus Vaccine - Whole 2007-10-14 00:00:00 Completed [facility] Varicella (varivax)(chicken pox) 2007-10-14 00:00:00 Completed [facility] Influenza Virus Vaccine - Whole 2007-10-14 00:00:00 Completed [facility] Varicella (varivax)(chicken pox) 2007-10-14 00:00:00 Completed [facility] Influenza Virus Vaccine - Whole 2007-10-14 00:00:00 Completed [facility] Varicella (varivax)(chicken pox) 2007-10-14 00:00:00 Completed [facility] Influenza Virus Vaccine - Whole 2007-10-14 00:00:00 Completed [facility] Varicella (varivax)(chicken pox) 2007-10-14 00:00:00 Completed [facility] Varicella (varivax)(chicken pox) 2007-10-14 00:00:00 Completed [facility] Influenza Virus Vaccine - Whole 2007-10-14 00:00:00 Completed [facility] Influenza Virus Vaccine - Whole 2007-10-14 00:00:00 Completed [facility] Varicella (varivax)(chicken pox) 2007-10-14 00:00:00 Completed [facility] Influenza Virus Vaccine - Whole 2007-10-14 00:00:00 Completed [facility] Varicella (varivax)(chicken pox) 2007-10-14 00:00:00 Completed [facility] Influenza Virus Vaccine - Whole 2007-10-14 00:00:00 Completed [facility] Varicella (varivax)(chicken pox) 2007-10-14 00:00:00 Completed [facility] Influenza Virus Vaccine - Whole 2007-10-14 00:00:00 Completed [facility] Varicella (varivax)(chicken pox) 2007-10-14 00:00:00 Completed [facility] Influenza Virus Vaccine - Whole 2007-10-14 00:00:00 Completed [facility] Varicella (varivax)(chicken pox) 2007-10-14 00:00:00 Completed [facility] Influenza Virus Vaccine - Whole 2007-10-14 00:00:00 Completed [facility] Varicella (varivax)(chicken pox) 2007-10-14 00:00:00 Completed [facility] Influenza Virus Vaccine - Whole 2007-10-14 00:00:00 Completed [facility] Varicella (varivax)(chicken pox) 2007-10-14 00:00:00 Completed [facility] Influenza Virus Vaccine - Whole 2007-10-14 00:00:00 Completed [facility] Varicella (varivax)(chicken pox) 2007-10-14 00:00:00 Completed [facility] Influenza Virus Vaccine - Whole 2007-10-14 00:00:00 Completed [facility] Varicella (varivax)(chicken pox) 2007-10-14 00:00:00 Completed [facility] Influenza Virus Vaccine - Whole 2007-10-14 00:00:00 Completed [facility] Varicella (varivax)(chicken pox) 2007-10-14 00:00:00 Completed [facility] Influenza Virus Vaccine - Whole 2007-10-14 00:00:00 Completed [facility] Varicella (varivax)(chicken pox) 2007-10-14 00:00:00 Completed [facility] Influenza Virus Vaccine - Whole 2007-10-14 00:00:00 Completed [facility] Varicella (varivax)(chicken pox) 2007-10-14 00:00:00 Completed [facility] Influenza Virus Vaccine - Whole 2007-10-14 00:00:00 Completed [facility] Varicella (varivax)(chicken pox) 2007-10-14 00:00:00 Completed [facility] Influenza Virus Vaccine - Whole 2007-10-14 00:00:00 Completed [facility] Varicella (varivax)(chicken pox) 2007-10-14 00:00:00 Completed [facility] Influenza Virus Vaccine - Whole 2007-10-14 00:00:00 Completed [facility] Varicella (varivax)(chicken pox) 2007-10-14 00:00:00 Completed [facility] Influenza Virus Vaccine - Whole 2007-10-14 00:00:00 Completed [facility] Varicella (varivax)(chicken pox) 2007-10-14 00:00:00 Completed [facility] Influenza Virus Vaccine - Whole 2007-10-14 00:00:00 Completed [facility] Varicella (varivax)(chicken pox) 2007-10-14 00:00:00 Completed [facility] Influenza Virus Vaccine - Whole 2007-10-14 00:00:00 Completed [facility] Varicella (varivax)(chicken pox) 2007-10-14 00:00:00 Completed [facility] Influenza Virus Vaccine - Whole 2007-10-14 00:00:00 Completed [facility] Varicella (varivax)(chicken pox) 2007-10-14 00:00:00 Completed [facility] Influenza Virus Vaccine - Whole 2007-10-14 00:00:00 Completed [facility] Varicella (varivax)(chicken pox) 2007-10-14 00:00:00 Completed [facility] Influenza Virus Vaccine - Whole 2007-10-14 00:00:00 Completed [facility] Varicella (varivax)(chicken pox) 2007-10-14 00:00:00 Completed [facility] Influenza Virus Vaccine - Whole 2007-10-14 00:00:00 Completed [facility] Varicella (varivax)(chicken pox) 2007-10-14 00:00:00 Completed [facility] Influenza Virus Vaccine - Whole 2007-10-14 00:00:00 Completed [facility] Varicella (varivax)(chicken pox) 2007-10-14 00:00:00 Completed [facility] Influenza Virus Vaccine - Whole 2007-10-14 00:00:00 Completed [facility] Varicella (varivax)(chicken pox) 2007-10-14 00:00:00 Completed [facility] Influenza Virus Vaccine - Whole 2007-10-14 00:00:00 Completed [facility] Varicella (varivax)(chicken pox) 2007-10-14 00:00:00 Completed [facility] Influenza Virus Vaccine - Whole 2007-10-14 00:00:00 Completed [facility] Varicella (varivax)(chicken pox) 2007-10-14 00:00:00 Completed [facility] Influenza Virus Vaccine - Whole 2007-10-14 00:00:00 Completed [facility] Varicella (varivax)(chicken pox) 2007-10-14 00:00:00 Completed [facility] Influenza Virus Vaccine - Whole 2007-10-14 00:00:00 Completed [facility] Varicella (varivax)(chicken pox) 2007-10-14 00:00:00 Completed [facility] Influenza Virus Vaccine - Whole 2007-10-14 00:00:00 Completed [facility] Varicella (varivax)(chicken pox) 2007-10-14 00:00:00 Completed [facility] Influenza Virus Vaccine - Whole 2007-10-14 00:00:00 Completed [facility] Varicella (varivax)(chicken pox) 2007-10-14 00:00:00 Completed [facility] Influenza Virus Vaccine - Whole 2007-10-14 00:00:00 Completed [facility] Varicella (varivax)(chicken pox) 2007-10-14 00:00:00 Completed [facility] Influenza Virus Vaccine - Whole 2007-10-14 00:00:00 Completed [facility] Varicella (varivax)(chicken pox) 2007-10-14 00:00:00 Completed [facility] Influenza Virus Vaccine - Whole 2007-10-14 00:00:00 Completed [facility] Varicella (varivax)(chicken pox) 2007-10-14 00:00:00 Completed [facility] Influenza Virus Vaccine - Whole 2007-10-14 00:00:00 Completed [facility] Varicella (varivax)(chicken pox) 2007-10-14 00:00:00 Completed [facility] Influenza Virus Vaccine - Whole 2007-10-14 00:00:00 Completed [facility] Varicella (varivax)(chicken pox) 2007-10-14 00:00:00 Completed [facility] Influenza Virus Vaccine - Whole 2007-10-14 00:00:00 Completed [facility] Varicella (varivax)(chicken pox) 2007-10-14 00:00:00 Completed [facility] Influenza Virus Vaccine - Whole 2007-10-14 00:00:00 Completed [facility] Varicella (varivax)(chicken pox) 2007-10-14 00:00:00 Completed [facility] Influenza Virus Vaccine - Whole 2007-10-14 00:00:00 Completed [facility] Varicella (varivax)(chicken pox) 2007-10-14 00:00:00 Completed [facility] Influenza Virus Vaccine - Whole 2007-10-14 00:00:00 Completed [facility] Varicella (varivax)(chicken pox) 2007-10-14 00:00:00 Completed [facility] Influenza Virus Vaccine - Whole 2007-10-14 00:00:00 Completed [facility] Varicella (varivax)(chicken pox) 2007-10-14 00:00:00 Completed [facility] Influenza Virus Vaccine - Whole 2007-10-14 00:00:00 Completed [facility] Varicella (varivax)(chicken pox) 2007-10-14 00:00:00 Completed [facility] Influenza Virus Vaccine - Whole 2007-10-14 00:00:00 Completed [facility] Varicella (varivax)(chicken pox) 2007-10-14 00:00:00 Completed [facility] Influenza Virus Vaccine - Whole 2007-10-14 00:00:00 Completed [facility] Varicella (varivax)(chicken pox) 2007-10-14 00:00:00 Completed [facility] Influenza Virus Vaccine - Whole 2007-10-14 00:00:00 Completed [facility] Varicella (varivax)(chicken pox) 2007-10-14 00:00:00 Completed [facility] Influenza Virus Vaccine - Whole 2007-10-14 00:00:00 Completed [facility] Varicella (varivax)(chicken pox) 2007-10-14 00:00:00 Completed [facility] Influenza Virus Vaccine - Whole 2007-10-14 00:00:00 Completed [facility] Varicella (varivax)(chicken pox) 2007-10-14 00:00:00 Completed [facility] Influenza Virus Vaccine - Whole 2007-10-14 00:00:00 Completed [facility] Varicella (varivax)(chicken pox) 2007-10-14 00:00:00 Completed [facility] Influenza Virus Vaccine - Whole 2007-10-14 00:00:00 Completed [facility] Varicella (varivax)(chicken pox) 2007-10-14 00:00:00 Completed [facility] Influenza Virus Vaccine - Whole 2007-10-14 00:00:00 Completed [facility] Varicella (varivax)(chicken pox) 2007-10-14 00:00:00 Completed [facility] Influenza Virus Vaccine - Whole 2007-10-14 00:00:00 Completed [facility] Varicella (varivax)(chicken pox) 2007-10-14 00:00:00 Completed [facility] Influenza Virus Vaccine - Whole 2007-10-14 00:00:00 Completed [facility] Varicella (varivax)(chicken pox) 2007-10-14 00:00:00 Completed [facility] Influenza Virus Vaccine - Whole 2007-10-14 00:00:00 Completed [facility] Varicella (varivax)(chicken pox) 2007-10-14 00:00:00 Completed [facility] Influenza Virus Vaccine - Whole 2007-10-14 00:00:00 Completed [facility] Varicella (varivax)(chicken pox) 2007-10-14 00:00:00 Completed [facility] Influenza Virus Vaccine - Whole 2007-10-14 00:00:00 Completed [facility] Varicella (varivax)(chicken pox) 2007-10-14 00:00:00 Completed [facility] Influenza Virus Vaccine - Whole 2007-10-14 00:00:00 Completed [facility] Varicella (varivax)(chicken pox) 2007-10-14 00:00:00 Completed [facility] Influenza Virus Vaccine - Whole 2007-10-14 00:00:00 Completed [facility] Varicella (varivax)(chicken pox) 2007-10-14 00:00:00 Completed [facility] Influenza Virus Vaccine - Whole 2007-10-14 00:00:00 Completed [facility] Varicella (varivax)(chicken pox) 2007-10-14 00:00:00 Completed [facility] Influenza Virus Vaccine - Whole 2007-10-14 00:00:00 Completed [facility] Varicella (varivax)(chicken pox) 2007-10-14 00:00:00 Completed [facility] Influenza Virus Vaccine - Whole 2007-10-14 00:00:00 Completed [facility] Varicella (varivax)(chicken pox) 2007-10-14 00:00:00 Completed [facility] Influenza Virus Vaccine - Whole 2007-10-14 00:00:00 Completed [facility] Varicella (varivax)(chicken pox) 2007-10-14 00:00:00 Completed [facility] Influenza Virus Vaccine - Whole 2007-10-14 00:00:00 Completed [facility] Varicella (varivax)(chicken pox) 2007-10-14 00:00:00 Completed [facility] Influenza Virus Vaccine - Whole 2007-10-14 00:00:00 Completed [facility] Varicella (varivax)(chicken pox) 2007-10-14 00:00:00 Completed [facility] Influenza Virus Vaccine - Whole 2007-10-14 00:00:00 Completed [facility] Varicella (varivax)(chicken pox) 2007-10-14 00:00:00 Completed [facility] Influenza Virus Vaccine - Whole 2007-10-14 00:00:00 Completed [facility] Varicella (varivax)(chicken pox) 2007-10-14 00:00:00 Completed [facility] Influenza Virus Vaccine - Whole 2007-10-14 00:00:00 Completed [facility] Varicella (varivax)(chicken pox) 2007-10-14 00:00:00 Completed [facility] Influenza Virus Vaccine - Whole 2007-10-14 00:00:00 Completed [facility] Varicella (varivax)(chicken pox) 2007-10-14 00:00:00 Completed [facility] Influenza Virus Vaccine - Whole 2007-10-14 00:00:00 Completed [facility] Varicella (varivax)(chicken pox) 2007-10-14 00:00:00 Completed [facility] Influenza Virus Vaccine - Whole 2007-10-14 00:00:00 Completed [facility] Varicella (varivax)(chicken pox) 2007-10-14 00:00:00 Completed [facility] Influenza Virus Vaccine - Whole 2007-10-14 00:00:00 Completed [facility] Varicella (varivax)(chicken pox) 2007-10-14 00:00:00 Completed [facility] Influenza Virus Vaccine - Whole 2007-10-14 00:00:00 Completed [facility] HEPATITIS A 2007-03-29 00:00:00 Completed [facility] HEPATITIS A 2007-03-29 00:00:00 Completed [facility] HEPATITIS A 2007-03-29 00:00:00 Completed [facility] HEPATITIS A 2007-03-29 00:00:00 Completed [facility] HEPATITIS A 2007-03-29 00:00:00 Completed [facility] HEPATITIS A 2007-03-29 00:00:00 Completed [facility] HEPATITIS A 2007-03-29 00:00:00 Completed [facility] HEPATITIS A 2007-03-29 00:00:00 Completed [facility] HEPATITIS A 2007-03-29 00:00:00 Completed [facility] HEPATITIS A 2007-03-29 00:00:00 Completed [facility] HEPATITIS A 2007-03-29 00:00:00 Completed [facility] HEPATITIS A 2007-03-29 00:00:00 Completed [facility] HEPATITIS A 2007-03-29 00:00:00 Completed [facility] HEPATITIS A 2007-03-29 00:00:00 Completed [facility] HEPATITIS A 2007-03-29 00:00:00 Completed [facility] HEPATITIS A 2007-03-29 00:00:00 Completed [facility] HEPATITIS A 2007-03-29 00:00:00 Completed [facility] HEPATITIS A 2007-03-29 00:00:00 Completed [facility] HEPATITIS A 2007-03-29 00:00:00 Completed [facility] HEPATITIS A 2007-03-29 00:00:00 Completed [facility] HEPATITIS A 2007-03-29 00:00:00 Completed [facility] HEPATITIS A 2007-03-29 00:00:00 Completed [facility] HEPATITIS A 2007-03-29 00:00:00 Completed [facility] HEPATITIS A 2007-03-29 00:00:00 Completed [facility] HEPATITIS A 2007-03-29 00:00:00 Completed [facility] HEPATITIS A 2007-03-29 00:00:00 Completed [facility] HEPATITIS A 2007-03-29 00:00:00 Completed [facility] HEPATITIS A 2007-03-29 00:00:00 Completed [facility] HEPATITIS A 2007-03-29 00:00:00 Completed [facility] HEPATITIS A 2007-03-29 00:00:00 Completed [facility] HEPATITIS A 2007-03-29 00:00:00 Completed [facility] HEPATITIS A 2007-03-29 00:00:00 Completed [facility] HEPATITIS A 2007-03-29 00:00:00 Completed [facility] HEPATITIS A 2007-03-29 00:00:00 Completed [facility] HEPATITIS A 2007-03-29 00:00:00 Completed [facility] HEPATITIS A 2007-03-29 00:00:00 Completed [facility] HEPATITIS A 2007-03-29 00:00:00 Completed [facility] HEPATITIS A 2007-03-29 00:00:00 Completed [facility] HEPATITIS A 2007-03-29 00:00:00 Completed [facility] HEPATITIS A 2007-03-29 00:00:00 Completed [facility] HEPATITIS A 2007-03-29 00:00:00 Completed [facility] HEPATITIS A 2007-03-29 00:00:00 Completed [facility] HEPATITIS A 2007-03-29 00:00:00 Completed [facility] HEPATITIS A 2007-03-29 00:00:00 Completed [facility] HEPATITIS A 2007-03-29 00:00:00 Completed [facility] HEPATITIS A 2007-03-29 00:00:00 Completed [facility] HEPATITIS A 2007-03-29 00:00:00 Completed [facility] HEPATITIS A 2007-03-29 00:00:00 Completed [facility] HEPATITIS A 2007-03-29 00:00:00 Completed [facility] HEPATITIS A 2007-03-29 00:00:00 Completed [facility] HEPATITIS A 2007-03-29 00:00:00 Completed [facility] HEPATITIS A 2007-03-29 00:00:00 Completed [facility] HEPATITIS A 2007-03-29 00:00:00 Completed [facility] HEPATITIS A 2007-03-29 00:00:00 Completed [facility] HEPATITIS A 2007-03-29 00:00:00 Completed [facility] HEPATITIS A 2007-03-29 00:00:00 Completed [facility] HEPATITIS A 2007-03-29 00:00:00 Completed [facility] HEPATITIS A 2007-03-29 00:00:00 Completed [facility] HEPATITIS A 2007-03-29 00:00:00 Completed [facility] HEPATITIS A 2007-03-29 00:00:00 Completed [facility] HEPATITIS A 2007-03-29 00:00:00 Completed [facility] HEPATITIS A 2007-03-29 00:00:00 Completed [facility] HEPATITIS A 2007-03-29 00:00:00 Completed [facility] HEPATITIS A 2007-03-29 00:00:00 Completed [facility] HEPATITIS A 2007-03-29 00:00:00 Completed [facility] HEPATITIS A 2007-03-29 00:00:00 Completed [facility] HEPATITIS A 2007-03-29 00:00:00 Completed [facility] HEPATITIS A 2007-03-29 00:00:00 Completed [facility] HEPATITIS A 2007-03-29 00:00:00 Completed [facility] HEPATITIS A 2007-03-29 00:00:00 Completed [facility] HEPATITIS A 2007-03-29 00:00:00 Completed [facility] HEPATITIS A 2007-03-29 00:00:00 Completed [facility] HEPATITIS A 2007-03-29 00:00:00 Completed [facility] HEPATITIS A 2007-03-29 00:00:00 Completed [facility] HEPATITIS A 2007-03-29 00:00:00 Completed [facility] HEPATITIS A 2007-03-29 00:00:00 Completed [facility] HEPATITIS A 2007-03-29 00:00:00 Completed [facility] HEPATITIS A 2007-03-29 00:00:00 Completed [facility] HEPATITIS A 2007-03-29 00:00:00 Completed [facility] HEPATITIS A 2007-03-29 00:00:00 Completed [facility] HEPATITIS A 2007-03-29 00:00:00 Completed [facility] HEPATITIS A 2007-03-29 00:00:00 Completed [facility] HEPATITIS A 2007-03-29 00:00:00 Completed [facility] HEPATITIS A 2007-03-29 00:00:00 Completed [facility] HEPATITIS A 2007-03-29 00:00:00 Completed [facility] HEPATITIS A 2007-03-29 00:00:00 Completed [facility] HEPATITIS A 2007-03-29 00:00:00 Completed [facility] HEPATITIS A 2007-03-29 00:00:00 Completed [facility] HEPATITIS A 2007-03-29 00:00:00 Completed [facility] HEPATITIS A 2007-03-29 00:00:00 Completed [facility] HEPATITIS A 2007-03-29 00:00:00 Completed [facility] HEPATITIS A 2007-03-29 00:00:00 Completed [facility] HEPATITIS A 2007-03-29 00:00:00 Completed [facility] HEPATITIS A 2007-03-29 00:00:00 Completed [facility] HEPATITIS A 2007-03-29 00:00:00 Completed [facility] HEPATITIS A 2007-03-29 00:00:00 Completed [facility] HEPATITIS A 2007-03-29 00:00:00 Completed [facility] HEPATITIS A 2007-03-29 00:00:00 Completed [facility] HEPATITIS A 2007-03-29 00:00:00 Completed [facility] HEPATITIS A 2007-03-29 00:00:00 Completed [facility] HEPATITIS A 2007-03-29 00:00:00 Completed [facility] HEPATITIS A 2007-03-29 00:00:00 Completed [facility] HEPATITIS A 2007-03-29 00:00:00 Completed [facility] HEPATITIS A 2007-03-29 00:00:00 Completed [facility] HEPATITIS A 2007-03-29 00:00:00 Completed [facility] HEPATITIS A 2007-03-29 00:00:00 Completed [facility] HEPATITIS A 2007-03-29 00:00:00 Completed [facility] HEPATITIS A 2007-03-29 00:00:00 Completed [facility] HEPATITIS A 2007-03-29 00:00:00 Completed [facility] HEPATITIS A 2007-03-29 00:00:00 Completed [facility] HEPATITIS A 2007-03-29 00:00:00 Completed [facility] HEPATITIS A 2007-03-29 00:00:00 Completed [facility] HEPATITIS A 2007-03-29 00:00:00 Completed [facility] HEPATITIS A 2007-03-29 00:00:00 Completed [facility] HEPATITIS A 2007-03-29 00:00:00 Completed [facility] HEPATITIS A 2007-03-29 00:00:00 Completed [facility] HEPATITIS A 2007-03-29 00:00:00 Completed [facility] HEPATITIS A 2007-03-29 00:00:00 Completed [facility] HEPATITIS A 2007-03-29 00:00:00 Completed HEPATITIS A 2007-03-29 00:00:00 Completed [facility] HEPATITIS A 2007-03-29 00:00:00 Completed [facility] HEPATITIS A 2007-03-29 00:00:00 Completed [facility] HEPATITIS A 2007-03-29 00:00:00 Completed [facility] Influenza Virus Vaccine - Whole 2006-12-08 00:00:00 Completed [facility] Influenza Virus Vaccine - Whole 2006-12-08 00:00:00 Completed [facility] Influenza Virus Vaccine - Whole 2006-12-08 00:00:00 Completed [facility] Influenza Virus Vaccine - Whole 2006-12-08 00:00:00 Completed [facility] Influenza Virus Vaccine - Whole 2006-12-08 00:00:00 Completed [facility] Influenza Virus Vaccine - Whole 2006-12-08 00:00:00 Completed [facility] Influenza Virus Vaccine - Whole 2006-12-08 00:00:00 Completed [facility] Influenza Virus Vaccine - Whole 2006-12-08 00:00:00 Completed [facility] Influenza Virus Vaccine - Whole 2006-12-08 00:00:00 Completed [facility] Influenza Virus Vaccine - Whole 2006-12-08 00:00:00 Completed [facility] Influenza Virus Vaccine - Whole 2006-12-08 00:00:00 Completed [facility] Influenza Virus Vaccine - Whole 2006-12-08 00:00:00 Completed [facility] Influenza Virus Vaccine - Whole 2006-12-08 00:00:00 Completed [facility] Influenza Virus Vaccine - Whole 2006-12-08 00:00:00 Completed [facility] Influenza Virus Vaccine - Whole 2006-12-08 00:00:00 Completed [facility] Influenza Virus Vaccine - Whole 2006-12-08 00:00:00 Completed [facility] Influenza Virus Vaccine - Whole 2006-12-08 00:00:00 Completed [facility] Influenza Virus Vaccine - Whole 2006-12-08 00:00:00 Completed [facility] Influenza Virus Vaccine - Whole 2006-12-08 00:00:00 Completed [facility] Influenza Virus Vaccine - Whole 2006-12-08 00:00:00 Completed [facility] Influenza Virus Vaccine - Whole 2006-12-08 00:00:00 Completed [facility] Influenza Virus Vaccine - Whole 2006-12-08 00:00:00 Completed [facility] Influenza Virus Vaccine - Whole 2006-12-08 00:00:00 Completed [facility] Influenza Virus Vaccine - Whole 2006-12-08 00:00:00 Completed [facility] Influenza Virus Vaccine - Whole 2006-12-08 00:00:00 Completed [facility] Influenza Virus Vaccine - Whole 2006-12-08 00:00:00 Completed [facility] Influenza Virus Vaccine - Whole 2006-12-08 00:00:00 Completed [facility] Influenza Virus Vaccine - Whole 2006-12-08 00:00:00 Completed [facility] Influenza Virus Vaccine - Whole 2006-12-08 00:00:00 Completed [facility] Influenza Virus Vaccine - Whole 2006-12-08 00:00:00 Completed [facility] Influenza Virus Vaccine - Whole 2006-12-08 00:00:00 Completed [facility] Influenza Virus Vaccine - Whole 2006-12-08 00:00:00 Completed [facility] Influenza Virus Vaccine - Whole 2006-12-08 00:00:00 Completed [facility] Influenza Virus Vaccine - Whole 2006-12-08 00:00:00 Completed [facility] Influenza Virus Vaccine - Whole 2006-12-08 00:00:00 Completed [facility] Influenza Virus Vaccine - Whole 2006-12-08 00:00:00 Completed [facility] Influenza Virus Vaccine - Whole 2006-12-08 00:00:00 Completed [facility] Influenza Virus Vaccine - Whole 2006-12-08 00:00:00 Completed [facility] Influenza Virus Vaccine - Whole 2006-12-08 00:00:00 Completed [facility] Influenza Virus Vaccine - Whole 2006-12-08 00:00:00 Completed [facility] Influenza Virus Vaccine - Whole 2006-12-08 00:00:00 Completed [facility] Influenza Virus Vaccine - Whole 2006-12-08 00:00:00 Completed [facility] Influenza Virus Vaccine - Whole 2006-12-08 00:00:00 Completed [facility] Influenza Virus Vaccine - Whole 2006-12-08 00:00:00 Completed [facility] Influenza Virus Vaccine - Whole 2006-12-08 00:00:00 Completed [facility] Influenza Virus Vaccine - Whole 2006-12-08 00:00:00 Completed [facility] Influenza Virus Vaccine - Whole 2006-12-08 00:00:00 Completed [facility] Influenza Virus Vaccine - Whole 2006-12-08 00:00:00 Completed [facility] Influenza Virus Vaccine - Whole 2006-12-08 00:00:00 Completed [facility] Influenza Virus Vaccine - Whole 2006-12-08 00:00:00 Completed [facility] Influenza Virus Vaccine - Whole 2006-12-08 00:00:00 Completed [facility] Influenza Virus Vaccine - Whole 2006-12-08 00:00:00 Completed [facility] Influenza Virus Vaccine - Whole 2006-12-08 00:00:00 Completed [facility] Influenza Virus Vaccine - Whole 2006-12-08 00:00:00 Completed [facility] Influenza Virus Vaccine - Whole 2006-12-08 00:00:00 Completed [facility] Influenza Virus Vaccine - Whole 2006-12-08 00:00:00 Completed [facility] Influenza Virus Vaccine - Whole 2006-12-08 00:00:00 Completed [facility] Influenza Virus Vaccine - Whole 2006-12-08 00:00:00 Completed [facility] Influenza Virus Vaccine - Whole 2006-12-08 00:00:00 Completed [facility] Influenza Virus Vaccine - Whole 2006-12-08 00:00:00 Completed [facility] Influenza Virus Vaccine - Whole 2006-12-08 00:00:00 Completed [facility] Influenza Virus Vaccine - Whole 2006-12-08 00:00:00 Completed [facility] Influenza Virus Vaccine - Whole 2006-12-08 00:00:00 Completed [facility] Influenza Virus Vaccine - Whole 2006-12-08 00:00:00 Completed [facility] Influenza Virus Vaccine - Whole 2006-12-08 00:00:00 Completed [facility] Influenza Virus Vaccine - Whole 2006-12-08 00:00:00 Completed [facility] Influenza Virus Vaccine - Whole 2006-12-08 00:00:00 Completed [facility] Influenza Virus Vaccine - Whole 2006-12-08 00:00:00 Completed [facility] Influenza Virus Vaccine - Whole 2006-12-08 00:00:00 Completed [facility] Influenza Virus Vaccine - Whole 2006-12-08 00:00:00 Completed [facility] Influenza Virus Vaccine - Whole 2006-12-08 00:00:00 Completed [facility] Influenza Virus Vaccine - Whole 2006-12-08 00:00:00 Completed [facility] Influenza Virus Vaccine - Whole 2006-12-08 00:00:00 Completed [facility] Influenza Virus Vaccine - Whole 2006-12-08 00:00:00 Completed [facility] Influenza Virus Vaccine - Whole 2006-12-08 00:00:00 Completed [facility] Influenza Virus Vaccine - Whole 2006-12-08 00:00:00 Completed [facility] Influenza Virus Vaccine - Whole 2006-12-08 00:00:00 Completed [facility] Influenza Virus Vaccine - Whole 2006-12-08 00:00:00 Completed [facility] Influenza Virus Vaccine - Whole 2006-12-08 00:00:00 Completed [facility] HEPATITIS A 2006-09-24 00:00:00 Completed [facility] HEPATITIS A 2006-09-24 00:00:00 Completed [facility] HEPATITIS A 2006-09-24 00:00:00 Completed [facility] HEPATITIS A 2006-09-24 00:00:00 Completed [facility] HEPATITIS A 2006-09-24 00:00:00 Completed [facility] HEPATITIS A 2006-09-24 00:00:00 Completed [facility] HEPATITIS A 2006-09-24 00:00:00 Completed [facility] HEPATITIS A 2006-09-24 00:00:00 Completed [facility] HEPATITIS A 2006-09-24 00:00:00 Completed [facility] HEPATITIS A 2006-09-24 00:00:00 Completed [facility] HEPATITIS A 2006-09-24 00:00:00 Completed [facility] HEPATITIS A 2006-09-24 00:00:00 Completed [facility] HEPATITIS A 2006-09-24 00:00:00 Completed [facility] HEPATITIS A 2006-09-24 00:00:00 Completed [facility] HEPATITIS A 2006-09-24 00:00:00 Completed [facility] HEPATITIS A 2006-09-24 00:00:00 Completed [facility] HEPATITIS A 2006-09-24 00:00:00 Completed [facility] HEPATITIS A 2006-09-24 00:00:00 Completed [facility] HEPATITIS A 2006-09-24 00:00:00 Completed [facility] HEPATITIS A 2006-09-24 00:00:00 Completed [facility] HEPATITIS A 2006-09-24 00:00:00 Completed [facility] HEPATITIS A 2006-09-24 00:00:00 Completed [facility] HEPATITIS A 2006-09-24 00:00:00 Completed [facility] HEPATITIS A 2006-09-24 00:00:00 Completed [facility] HEPATITIS A 2006-09-24 00:00:00 Completed [facility] HEPATITIS A 2006-09-24 00:00:00 Completed [facility] HEPATITIS A 2006-09-24 00:00:00 Completed [facility] HEPATITIS A 2006-09-24 00:00:00 Completed [facility] HEPATITIS A 2006-09-24 00:00:00 Completed [facility] HEPATITIS A 2006-09-24 00:00:00 Completed [facility] HEPATITIS A 2006-09-24 00:00:00 Completed [facility] HEPATITIS A 2006-09-24 00:00:00 Completed [facility] HEPATITIS A 2006-09-24 00:00:00 Completed [facility] HEPATITIS A 2006-09-24 00:00:00 Completed [facility] HEPATITIS A 2006-09-24 00:00:00 Completed [facility] HEPATITIS A 2006-09-24 00:00:00 Completed [facility] HEPATITIS A 2006-09-24 00:00:00 Completed [facility] HEPATITIS A 2006-09-24 00:00:00 Completed [facility] HEPATITIS A 2006-09-24 00:00:00 Completed [facility] HEPATITIS A 2006-09-24 00:00:00 Completed [facility] HEPATITIS A 2006-09-24 00:00:00 Completed [facility] HEPATITIS A 2006-09-24 00:00:00 Completed [facility] HEPATITIS A 2006-09-24 00:00:00 Completed [facility] HEPATITIS A 2006-09-24 00:00:00 Completed [facility] HEPATITIS A 2006-09-24 00:00:00 Completed [facility] HEPATITIS A 2006-09-24 00:00:00 Completed [facility] HEPATITIS A 2006-09-24 00:00:00 Completed [facility] HEPATITIS A 2006-09-24 00:00:00 Completed [facility] HEPATITIS A 2006-09-24 00:00:00 Completed [facility] HEPATITIS A 2006-09-24 00:00:00 Completed [facility] HEPATITIS A 2006-09-24 00:00:00 Completed [facility] HEPATITIS A 2006-09-24 00:00:00 Completed [facility] HEPATITIS A 2006-09-24 00:00:00 Completed [facility] HEPATITIS A 2006-09-24 00:00:00 Completed [facility] HEPATITIS A 2006-09-24 00:00:00 Completed [facility] HEPATITIS A 2006-09-24 00:00:00 Completed [facility] HEPATITIS A 2006-09-24 00:00:00 Completed [facility] HEPATITIS A 2006-09-24 00:00:00 Completed [facility] HEPATITIS A 2006-09-24 00:00:00 Completed [facility] HEPATITIS A 2006-09-24 00:00:00 Completed [facility] HEPATITIS A 2006-09-24 00:00:00 Completed [facility] HEPATITIS A 2006-09-24 00:00:00 Completed [facility] HEPATITIS A 2006-09-24 00:00:00 Completed [facility] HEPATITIS A 2006-09-24 00:00:00 Completed [facility] HEPATITIS A 2006-09-24 00:00:00 Completed [facility] HEPATITIS A 2006-09-24 00:00:00 Completed [facility] HEPATITIS A 2006-09-24 00:00:00 Completed [facility] HEPATITIS A 2006-09-24 00:00:00 Completed [facility] HEPATITIS A 2006-09-24 00:00:00 Completed [facility] HEPATITIS A 2006-09-24 00:00:00 Completed [facility] HEPATITIS A 2006-09-24 00:00:00 Completed [facility] HEPATITIS A 2006-09-24 00:00:00 Completed [facility] HEPATITIS A 2006-09-24 00:00:00 Completed [facility] HEPATITIS A 2006-09-24 00:00:00 Completed [facility] HEPATITIS A 2006-09-24 00:00:00 Completed [facility] HEPATITIS A 2006-09-24 00:00:00 Completed [facility] HEPATITIS A 2006-09-24 00:00:00 Completed [facility] HEPATITIS A 2006-09-24 00:00:00 Completed [facility] HEPATITIS A 2006-09-24 00:00:00 Completed [facility] HEPATITIS A 2006-09-24 00:00:00 Completed [facility] HEPATITIS A 2006-09-24 00:00:00 Completed [facility] HEPATITIS A 2006-09-24 00:00:00 Completed [facility] HEPATITIS A 2006-09-24 00:00:00 Completed [facility] HEPATITIS A 2006-09-24 00:00:00 Completed [facility] HEPATITIS A 2006-09-24 00:00:00 Completed [facility] HEPATITIS A 2006-09-24 00:00:00 Completed [facility] HEPATITIS A 2006-09-24 00:00:00 Completed [facility] HEPATITIS A 2006-09-24 00:00:00 Completed [facility] HEPATITIS A 2006-09-24 00:00:00 Completed [facility] HEPATITIS A 2006-09-24 00:00:00 Completed [facility] HEPATITIS A 2006-09-24 00:00:00 Completed [facility] HEPATITIS A 2006-09-24 00:00:00 Completed [facility] HEPATITIS A 2006-09-24 00:00:00 Completed [facility] HEPATITIS A 2006-09-24 00:00:00 Completed [facility] HEPATITIS A 2006-09-24 00:00:00 Completed [facility] HEPATITIS A 2006-09-24 00:00:00 Completed [facility] HEPATITIS A 2006-09-24 00:00:00 Completed [facility] HEPATITIS A 2006-09-24 00:00:00 Completed [facility] HEPATITIS A 2006-09-24 00:00:00 Completed [facility] HEPATITIS A 2006-09-24 00:00:00 Completed [facility] HEPATITIS A 2006-09-24 00:00:00 Completed [facility] HEPATITIS A 2006-09-24 00:00:00 Completed [facility] HEPATITIS A 2006-09-24 00:00:00 Completed [facility] HEPATITIS A 2006-09-24 00:00:00 Completed [facility] HEPATITIS A 2006-09-24 00:00:00 Completed [facility] HEPATITIS A 2006-09-24 00:00:00 Completed [facility] HEPATITIS A 2006-09-24 00:00:00 Completed [facility] HEPATITIS A 2006-09-24 00:00:00 Completed [facility] HEPATITIS A 2006-09-24 00:00:00 Completed [facility] HEPATITIS A 2006-09-24 00:00:00 Completed [facility] HEPATITIS A 2006-09-24 00:00:00 Completed [facility] HEPATITIS A 2006-09-24 00:00:00 Completed [facility] HEPATITIS A 2006-09-24 00:00:00 Completed [facility] HEPATITIS A 2006-09-24 00:00:00 Completed [facility] HEPATITIS A 2006-09-24 00:00:00 Completed [facility] HEPATITIS A 2006-09-24 00:00:00 Completed [facility] HEPATITIS A 2006-09-24 00:00:00 Completed [facility] HEPATITIS A 2006-09-24 00:00:00 Completed [facility] HEPATITIS A 2006-09-24 00:00:00 Completed HEPATITIS A 2006-09-24 00:00:00 Completed [facility] HEPATITIS A 2006-09-24 00:00:00 Completed [facility] HEPATITIS A 2006-09-24 00:00:00 Completed [facility] HEPATITIS A 2006-09-24 00:00:00 Completed [facility] Polio (IPV/OPV) 2004-05-07 00:00:00 Completed [facility] DTAP 2004-05-07 00:00:00 Completed [facility] MMR 2004-05-07 00:00:00 Completed [facility] Polio (IPV/OPV) 2004-05-07 00:00:00 Completed [facility] DTAP 2004-05-07 00:00:00 Completed [facility] MMR 2004-05-07 00:00:00 Completed [facility] MMR 2004-05-07 00:00:00 Completed [facility] Polio (IPV/OPV) 2004-05-07 00:00:00 Completed [facility] DTAP 2004-05-07 00:00:00 Completed [facility] MMR 2004-05-07 00:00:00 Completed [facility] Polio (IPV/OPV) 2004-05-07 00:00:00 Completed [facility] Polio (IPV/OPV) 2004-05-07 00:00:00 Completed [facility] DTAP 2004-05-07 00:00:00 Completed [facility] MMR 2004-05-07 00:00:00 Completed [facility] Polio (IPV/OPV) 2004-05-07 00:00:00 Completed [facility] DTAP 2004-05-07 00:00:00 Completed [facility] MMR 2004-05-07 00:00:00 Completed [facility] Polio (IPV/OPV) 2004-05-07 00:00:00 Completed [facility] DTAP 2004-05-07 00:00:00 Completed [facility] MMR 2004-05-07 00:00:00 Completed [facility] Polio (IPV/OPV) 2004-05-07 00:00:00 Completed [facility] DTAP 2004-05-07 00:00:00 Completed [facility] MMR 2004-05-07 00:00:00 Completed [facility] Polio (IPV/OPV) 2004-05-07 00:00:00 Completed [facility] DTAP 2004-05-07 00:00:00 Completed [facility] MMR 2004-05-07 00:00:00 Completed [facility] Polio (IPV/OPV) 2004-05-07 00:00:00 Completed [facility] DTAP 2004-05-07 00:00:00 Completed [facility] MMR 2004-05-07 00:00:00 Completed [facility] Polio (IPV/OPV) 2004-05-07 00:00:00 Completed [facility] DTAP 2004-05-07 00:00:00 Completed [facility] DTAP 2004-05-07 00:00:00 Completed [facility] MMR 2004-05-07 00:00:00 Completed [facility] Polio (IPV/OPV) 2004-05-07 00:00:00 Completed [facility] DTAP 2004-05-07 00:00:00 Completed [facility] MMR 2004-05-07 00:00:00 Completed [facility] Polio (IPV/OPV) 2004-05-07 00:00:00 Completed [facility] DTAP 2004-05-07 00:00:00 Completed [facility] MMR 2004-05-07 00:00:00 Completed [facility] Polio (IPV/OPV) 2004-05-07 00:00:00 Completed [facility] DTAP 2004-05-07 00:00:00 Completed [facility] MMR 2004-05-07 00:00:00 Completed [facility] MMR 2004-05-07 00:00:00 Completed [facility] Polio (IPV/OPV) 2004-05-07 00:00:00 Completed [facility] DTAP 2004-05-07 00:00:00 Completed [facility] MMR 2004-05-07 00:00:00 Completed [facility] Polio (IPV/OPV) 2004-05-07 00:00:00 Completed [facility] Polio (IPV/OPV) 2004-05-07 00:00:00 Completed [facility] DTAP 2004-05-07 00:00:00 Completed [facility] MMR 2004-05-07 00:00:00 Completed [facility] Polio (IPV/OPV) 2004-05-07 00:00:00 Completed [facility] DTAP 2004-05-07 00:00:00 Completed [facility] MMR 2004-05-07 00:00:00 Completed [facility] Polio (IPV/OPV) 2004-05-07 00:00:00 Completed [facility] DTAP 2004-05-07 00:00:00 Completed [facility] MMR 2004-05-07 00:00:00 Completed [facility] Polio (IPV/OPV) 2004-05-07 00:00:00 Completed [facility] DTAP 2004-05-07 00:00:00 Completed [facility] MMR 2004-05-07 00:00:00 Completed [facility] Polio (IPV/OPV) 2004-05-07 00:00:00 Completed [facility] DTAP 2004-05-07 00:00:00 Completed [facility] DTAP 2004-05-07 00:00:00 Completed [facility] MMR 2004-05-07 00:00:00 Completed [facility] Polio (IPV/OPV) 2004-05-07 00:00:00 Completed [facility] DTAP 2004-05-07 00:00:00 Completed [facility] MMR 2004-05-07 00:00:00 Completed [facility] Polio (IPV/OPV) 2004-05-07 00:00:00 Completed [facility] DTAP 2004-05-07 00:00:00 Completed [facility] MMR 2004-05-07 00:00:00 Completed [facility] MMR 2004-05-07 00:00:00 Completed [facility] Polio (IPV/OPV) 2004-05-07 00:00:00 Completed [facility] DTAP 2004-05-07 00:00:00 Completed [facility] MMR 2004-05-07 00:00:00 Completed [facility] Polio (IPV/OPV) 2004-05-07 00:00:00 Completed [facility] DTAP 2004-05-07 00:00:00 Completed [facility] Polio (IPV/OPV) 2004-05-07 00:00:00 Completed [facility] MMR 2004-05-07 00:00:00 Completed [facility] Polio (IPV/OPV) 2004-05-07 00:00:00 Completed [facility] DTAP 2004-05-07 00:00:00 Completed [facility] MMR 2004-05-07 00:00:00 Completed [facility] Polio (IPV/OPV) 2004-05-07 00:00:00 Completed [facility] DTAP 2004-05-07 00:00:00 Completed [facility] MMR 2004-05-07 00:00:00 Completed [facility] Polio (IPV/OPV) 2004-05-07 00:00:00 Completed [facility] DTAP 2004-05-07 00:00:00 Completed [facility] MMR 2004-05-07 00:00:00 Completed [facility] Polio (IPV/OPV) 2004-05-07 00:00:00 Completed [facility] DTAP 2004-05-07 00:00:00 Completed [facility] DTAP 2004-05-07 00:00:00 Completed [facility] MMR 2004-05-07 00:00:00 Completed [facility] Polio (IPV/OPV) 2004-05-07 00:00:00 Completed [facility] DTAP 2004-05-07 00:00:00 Completed [facility] MMR 2004-05-07 00:00:00 Completed [facility] Polio (IPV/OPV) 2004-05-07 00:00:00 Completed [facility] DTAP 2004-05-07 00:00:00 Completed [facility] MMR 2004-05-07 00:00:00 Completed [facility] Polio (IPV/OPV) 2004-05-07 00:00:00 Completed [facility] MMR 2004-05-07 00:00:00 Completed [facility] DTAP 2004-05-07 00:00:00 Completed [facility] MMR 2004-05-07 00:00:00 Completed [facility] Polio (IPV/OPV) 2004-05-07 00:00:00 Completed [facility] DTAP 2004-05-07 00:00:00 Completed [facility] Polio (IPV/OPV) 2004-05-07 00:00:00 Completed [facility] MMR 2004-05-07 00:00:00 Completed [facility] Polio (IPV/OPV) 2004-05-07 00:00:00 Completed [facility] DTAP 2004-05-07 00:00:00 Completed [facility] MMR 2004-05-07 00:00:00 Completed [facility] Polio (IPV/OPV) 2004-05-07 00:00:00 Completed [facility] DTAP 2004-05-07 00:00:00 Completed [facility] MMR 2004-05-07 00:00:00 Completed [facility] Polio (IPV/OPV) 2004-05-07 00:00:00 Completed [facility] DTAP 2004-05-07 00:00:00 Completed [facility] MMR 2004-05-07 00:00:00 Completed [facility] Polio (IPV/OPV) 2004-05-07 00:00:00 Completed [facility] DTAP 2004-05-07 00:00:00 Completed [facility] MMR 2004-05-07 00:00:00 Completed [facility] Polio (IPV/OPV) 2004-05-07 00:00:00 Completed [facility] DTAP 2004-05-07 00:00:00 Completed [facility] DTAP 2004-05-07 00:00:00 Completed [facility] MMR 2004-05-07 00:00:00 Completed [facility] Polio (IPV/OPV) 2004-05-07 00:00:00 Completed [facility] [facility]:00:00 Completed [facility] MMR 2004-05-07 00:00:00 Completed [facility] Polio (IPV/OPV) 2004-05-07 00:00:00 Completed [facility] MMR 2004-05-07 00:00:00 Completed [facility] DTAP 2004-05-07 00:00:00 Completed [facility] MMR 2004-05-07 00:00:00 Completed [facility] Polio (IPV/OPV) 2004-05-07 00:00:00 Completed [facility] Polio (IPV/OPV) 2004-05-07 00:00:00 Completed [facility] DTAP 2004-05-07 00:00:00 Completed [facility] MMR 2004-05-07 00:00:00 Completed [facility] Polio (IPV/OPV) 2004-05-07 00:00:00 Completed [facility] DTAP 2004-05-07 00:00:00 Completed [facility] DTAP 2004-05-07 00:00:00 Completed [facility] MMR 2004-05-07 00:00:00 Completed [facility] Polio (IPV/OPV) 2004-05-07 00:00:00 Completed [facility] DTAP 2004-05-07 00:00:00 Completed [facility] DTAP 2004-05-07 00:00:00 Completed [facility] MMR 2004-05-07 00:00:00 Completed [facility] Polio (IPV/OPV) 2004-05-07 00:00:00 Completed [facility] DTAP 2004-05-07 00:00:00 Completed [facility] MMR 2004-05-07 00:00:00 Completed [facility] Polio (IPV/OPV) 2004-05-07 00:00:00 Completed [facility] MMR 2004-05-07 00:00:00 Completed [facility] DTAP 2004-05-07 00:00:00 Completed [facility] MMR 2004-05-07 00:00:00 Completed [facility] Polio (IPV/OPV) 2004-05-07 00:00:00 Completed [facility] Polio (IPV/OPV) 2004-05-07 00:00:00 Completed [facility] DTAP 2004-05-07 00:00:00 Completed [facility] MMR 2004-05-07 00:00:00 Completed [facility] Polio (IPV/OPV) 2004-05-07 00:00:00 Completed [facility] DTAP 2004-05-07 00:00:00 Completed [facility] MMR 2004-05-07 00:00:00 Completed [facility] Polio (IPV/OPV) 2004-05-07 00:00:00 Completed [facility] DTAP 2004-05-07 00:00:00 Completed [facility] MMR 2004-05-07 00:00:00 Completed [facility] Polio (IPV/OPV) 2004-05-07 00:00:00 Completed [facility] DTAP 2004-05-07 00:00:00 Completed [facility] MMR 2004-05-07 00:00:00 Completed [facility] Polio (IPV/OPV) 2004-05-07 00:00:00 Completed [facility] DTAP 2004-05-07 00:00:00 Completed [facility] MMR 2004-05-07 00:00:00 Completed [facility] Polio (IPV/OPV) 2004-05-07 00:00:00 Completed [facility] DTAP 2004-05-07 00:00:00 Completed [facility] DTAP 2004-05-07 00:00:00 Completed [facility] MMR 2004-05-07 00:00:00 Completed [facility] Polio (IPV/OPV) 2004-05-07 00:00:00 Completed [facility] DTAP 2004-05-07 00:00:00 Completed [facility] MMR 2004-05-07 00:00:00 Completed [facility] Polio (IPV/OPV) 2004-05-07 00:00:00 Completed [facility] DTAP 2004-05-07 00:00:00 Completed [facility] MMR 2004-05-07 00:00:00 Completed [facility] MMR 2004-05-07 00:00:00 Completed [facility] Polio (IPV/OPV) 2004-05-07 00:00:00 Completed [facility] DTAP 2004-05-07 00:00:00 Completed [facility] MMR 2004-05-07 00:00:00 Completed [facility] Polio (IPV/OPV) 2004-05-07 00:00:00 Completed [facility] Polio (IPV/OPV) 2004-05-07 00:00:00 Completed [facility] DTAP 2004-05-07 00:00:00 Completed [facility] MMR 2004-05-07 00:00:00 Completed [facility] Polio (IPV/OPV) 2004-05-07 00:00:00 Completed [facility] DTAP 2004-05-07 00:00:00 Completed [facility] MMR 2004-05-07 00:00:00 Completed [facility] Polio (IPV/OPV) 2004-05-07 00:00:00 Completed [facility] DTAP 2004-05-07 00:00:00 Completed [facility] MMR 2004-05-07 00:00:00 Completed [facility] Polio (IPV/OPV) 2004-05-07 00:00:00 Completed [facility] DTAP 2004-05-07 00:00:00 Completed [facility] MMR 2004-05-07 00:00:00 Completed [facility] Polio (IPV/OPV) 2004-05-07 00:00:00 Completed [facility] DTAP 2004-05-07 00:00:00 Completed [facility] MMR 2004-05-07 00:00:00 Completed [facility] Polio (IPV/OPV) 2004-05-07 00:00:00 Completed [facility] DTAP 2004-05-07 00:00:00 Completed [facility] DTAP 2004-05-07 00:00:00 Completed [facility] MMR 2004-05-07 00:00:00 Completed [facility] Polio (IPV/OPV) 2004-05-07 00:00:00 Completed [facility] DTAP 2004-05-07 00:00:00 Completed [facility] MMR 2004-05-07 00:00:00 Completed [facility] Polio (IPV/OPV) 2004-05-07 00:00:00 Completed [facility] DTAP 2004-05-07 00:00:00 Completed [facility] MMR 2004-05-07 00:00:00 Completed [facility] Polio (IPV/OPV) 2004-05-07 00:00:00 Completed [facility] MMR 2004-05-07 00:00:00 Completed [facility] DTAP 2004-05-07 00:00:00 Completed [facility] MMR 2004-05-07 00:00:00 Completed [facility] Polio (IPV/OPV) 2004-05-07 00:00:00 Completed [facility] Polio (IPV/OPV) 2004-05-07 00:00:00 Completed [facility] DTAP 2004-05-07 00:00:00 Completed [facility] MMR 2004-05-07 00:00:00 Completed [facility] Polio (IPV/OPV) 2004-05-07 00:00:00 Completed [facility] DTAP 2004-05-07 00:00:00 Completed [facility] MMR 2004-05-07 00:00:00 Completed [facility] Polio (IPV/OPV) 2004-05-07 00:00:00 Completed [facility] DTAP 2004-05-07 00:00:00 Completed [facility] MMR 2004-05-07 00:00:00 Completed [facility] Polio (IPV/OPV) 2004-05-07 00:00:00 Completed [facility] DTAP 2004-05-07 00:00:00 Completed [facility] MMR 2004-05-07 00:00:00 Completed [facility] Polio (IPV/OPV) 2004-05-07 00:00:00 Completed [facility] DTAP 2004-05-07 00:00:00 Completed [facility] DTAP 2004-05-07 00:00:00 Completed [facility] MMR 2004-05-07 00:00:00 Completed [facility] Polio (IPV/OPV) 2004-05-07 00:00:00 Completed [facility] DTAP 2004-05-07 00:00:00 Completed [facility] MMR 2004-05-07 00:00:00 Completed [facility] Polio (IPV/OPV) 2004-05-07 00:00:00 Completed [facility] DTAP 2004-05-07 00:00:00 Completed [facility] MMR 2004-05-07 00:00:00 Completed [facility] Polio (IPV/OPV) 2004-05-07 00:00:00 Completed [facility] MMR 2004-05-07 00:00:00 Completed [facility] DTAP 2004-05-07 00:00:00 Completed [facility] MMR 2004-05-07 00:00:00 Completed [facility] Polio (IPV/OPV) 2004-05-07 00:00:00 Completed [facility] Polio (IPV/OPV) 2004-05-07 00:00:00 Completed [facility] DTAP 2004-05-07 00:00:00 Completed [facility] MMR 2004-05-07 00:00:00 Completed [facility] Polio (IPV/OPV) 2004-05-07 00:00:00 Completed [facility] DTAP 2004-05-07 00:00:00 Completed [facility] MMR 2004-05-07 00:00:00 Completed [facility] Polio (IPV/OPV) 2004-05-07 00:00:00 Completed [facility] DTAP 2004-05-07 00:00:00 Completed [facility] MMR 2004-05-07 00:00:00 Completed [facility] Polio (IPV/OPV) 2004-05-07 00:00:00 Completed [facility] DTAP 2004-05-07 00:00:00 Completed [facility] MMR 2004-05-07 00:00:00 Completed [facility] Polio (IPV/OPV) 2004-05-07 00:00:00 Completed [facility] DTAP 2004-05-07 00:00:00 Completed [facility] MMR 2004-05-07 00:00:00 Completed [facility] Polio (IPV/OPV) 2004-05-07 00:00:00 Completed [facility] DTAP 2004-05-07 00:00:00 Completed [facility] DTAP 2004-05-07 00:00:00 Completed [facility] MMR 2004-05-07 00:00:00 Completed [facility] Polio (IPV/OPV) 2004-05-07 00:00:00 Completed [facility] DTAP 2004-05-07 00:00:00 Completed [facility] MMR 2004-05-07 00:00:00 Completed [facility] Polio (IPV/OPV) 2004-05-07 00:00:00 Completed [facility] MMR 2004-05-07 00:00:00 Completed [facility] DTAP 2004-05-07 00:00:00 Completed [facility] MMR 2004-05-07 00:00:00 Completed [facility] Polio (IPV/OPV) 2004-05-07 00:00:00 Completed [facility] Polio (IPV/OPV) 2004-05-07 00:00:00 Completed [facility] DTAP 2004-05-07 00:00:00 Completed [facility] MMR 2004-05-07 00:00:00 Completed [facility] Polio (IPV/OPV) 2004-05-07 00:00:00 Completed [facility] DTAP 2004-05-07 00:00:00 Completed [facility] MMR 2004-05-07 00:00:00 Completed [facility] Polio (IPV/OPV) 2004-05-07 00:00:00 Completed [facility] DTAP 2004-05-07 00:00:00 Completed [facility] MMR 2004-05-07 00:00:00 Completed [facility] Polio (IPV/OPV) 2004-05-07 00:00:00 Completed [facility] DTAP 2004-05-07 00:00:00 Completed [facility] MMR 2004-05-07 00:00:00 Completed [facility] Polio (IPV/OPV) 2004-05-07 00:00:00 Completed [facility] DTAP 2004-05-07 00:00:00 Completed [facility] DTAP 2004-05-07 00:00:00 Completed [facility] MMR 2004-05-07 00:00:00 Completed [facility] Polio (IPV/OPV) 2004-05-07 00:00:00 Completed [facility] DTAP 2004-05-07 00:00:00 Completed [facility] MMR 2004-05-07 00:00:00 Completed [facility] Polio (IPV/OPV) 2004-05-07 00:00:00 Completed [facility] DTAP 2004-05-07 00:00:00 Completed [facility] MMR 2004-05-07 00:00:00 Completed [facility] MMR 2004-05-07 00:00:00 Completed [facility] Polio (IPV/OPV) 2004-05-07 00:00:00 Completed [facility] DTAP 2004-05-07 00:00:00 Completed [facility] MMR 2004-05-07 00:00:00 Completed [facility] Polio (IPV/OPV) 2004-05-07 00:00:00 Completed [facility] Polio (IPV/OPV) 2004-05-07 00:00:00 Completed [facility] DTAP 2004-05-07 00:00:00 Completed [facility] MMR 2004-05-07 00:00:00 Completed [facility] Polio (IPV/OPV) 2004-05-07 00:00:00 Completed [facility] DTAP 2004-05-07 00:00:00 Completed [facility] MMR 2004-05-07 00:00:00 Completed [facility] Polio (IPV/OPV) 2004-05-07 00:00:00 Completed [facility] DTAP 2004-05-07 00:00:00 Completed [facility] MMR 2004-05-07 00:00:00 Completed [facility] Polio (IPV/OPV) 2004-05-07 00:00:00 Completed [facility] DTAP 2004-05-07 00:00:00 Completed [facility] MMR 2004-05-07 00:00:00 Completed [facility] Polio (IPV/OPV) 2004-05-07 00:00:00 Completed [facility] DTAP 2004-05-07 00:00:00 Completed [facility] DTAP 2004-05-07 00:00:00 Completed [facility] MMR 2004-05-07 00:00:00 Completed [facility] Polio (IPV/OPV) 2004-05-07 00:00:00 Completed [facility] DTAP 2004-05-07 00:00:00 Completed [facility] MMR 2004-05-07 00:00:00 Completed [facility] Polio (IPV/OPV) 2004-05-07 00:00:00 Completed [facility] DTAP 2004-05-07 00:00:00 Completed [facility] MMR 2004-05-07 00:00:00 Completed [facility] MMR 2004-05-07 00:00:00 Completed [facility] Polio (IPV/OPV) 2004-05-07 00:00:00 Completed [facility] DTAP 2004-05-07 00:00:00 Completed [facility] MMR 2004-05-07 00:00:00 Completed [facility] Polio (IPV/OPV) 2004-05-07 00:00:00 Completed [facility] Polio (IPV/OPV) 2004-05-07 00:00:00 Completed [facility] DTAP 2004-05-07 00:00:00 Completed [facility] MMR 2004-05-07 00:00:00 Completed [facility] Polio (IPV/OPV) 2004-05-07 00:00:00 Completed [facility] DTAP 2004-05-07 00:00:00 Completed [facility] MMR 2004-05-07 00:00:00 Completed [facility] Polio (IPV/OPV) 2004-05-07 00:00:00 Completed [facility] DTAP 2004-05-07 00:00:00 Completed [facility] MMR 2004-05-07 00:00:00 Completed [facility] Polio (IPV/OPV) 2004-05-07 00:00:00 Completed [facility] DTAP 2004-05-07 00:00:00 Completed [facility] MMR 2004-05-07 00:00:00 Completed [facility] Polio (IPV/OPV) 2004-05-07 00:00:00 Completed [facility] DTAP 2004-05-07 00:00:00 Completed [facility] MMR 2004-05-07 00:00:00 Completed [facility] Polio (IPV/OPV) 2004-05-07 00:00:00 Completed [facility] DTAP 2004-05-07 00:00:00 Completed [facility] MMR 2004-05-07 00:00:00 Completed [facility] Polio (IPV/OPV) 2004-05-07 00:00:00 Completed [facility] DTAP 2004-05-07 00:00:00 Completed [facility] DTAP 2004-05-07 00:00:00 Completed [facility] MMR 2004-05-07 00:00:00 Completed [facility] Polio (IPV/OPV) 2004-05-07 00:00:00 Completed [facility] DTAP 2004-05-07 00:00:00 Completed [facility] MMR 2004-05-07 00:00:00 Completed [facility] Polio (IPV/OPV) 2004-05-07 00:00:00 Completed [facility] MMR 2004-05-07 00:00:00 Completed [facility] DTAP 2004-05-07 00:00:00 Completed [facility] MMR 2004-05-07 00:00:00 Completed [facility] Polio (IPV/OPV) 2004-05-07 00:00:00 Completed [facility] Polio (IPV/OPV) 2004-05-07 00:00:00 Completed [facility] DTAP 2004-05-07 00:00:00 Completed [facility] MMR 2004-05-07 00:00:00 Completed [facility] Polio (IPV/OPV) 2004-05-07 00:00:00 Completed [facility] DTAP 2004-05-07 00:00:00 Completed [facility] MMR 2004-05-07 00:00:00 Completed [facility] Polio (IPV/OPV) 2004-05-07 00:00:00 Completed [facility] DTAP 2004-05-07 00:00:00 Completed [facility] MMR 2004-05-07 00:00:00 Completed [facility] DTAP 2004-05-07 00:00:00 Completed MMR 2004-05-07 00:00:00 Completed Polio (IPV/OPV) 2004-05-07 00:00:00 Completed Polio (IPV/OPV) 2004-05-07 00:00:00 Completed [facility] DTAP 2004-05-07 00:00:00 Completed [facility] MMR 2004-05-07 00:00:00 Completed [facility] Polio (IPV/OPV) 2004-05-07 00:00:00 Completed [facility] DTAP 2004-05-07 00:00:00 Completed [facility] MMR 2004-05-07 00:00:00 Completed [facility] Polio (IPV/OPV) 2004-05-07 00:00:00 Completed [facility] DTAP 2004-05-07 00:00:00 Completed [facility] MMR 2004-05-07 00:00:00 Completed [facility] Polio (IPV/OPV) 2004-05-07 00:00:00 Completed [facility] DTAP 2004-05-07 00:00:00 Completed [facility] MMR 2004-05-07 00:00:00 Completed [facility] HIB 4 Dose Schedule 2001-10-27 00:00:00 Completed [facility] DTAP 2001-10-27 00:00:00 Completed [facility] HIB 4 Dose Schedule 2001-10-27 00:00:00 Completed [facility] DTAP 2001-10-27 00:00:00 Completed [facility] HIB 4 Dose Schedule 2001-10-27 00:00:00 Completed [facility] DTAP 2001-10-27 00:00:00 Completed [facility] HIB 4 Dose Schedule 2001-10-27 00:00:00 Completed [facility] DTAP 2001-10-27 00:00:00 Completed [facility] HIB 4 Dose Schedule 2001-10-27 00:00:00 Completed [facility] DTAP 2001-10-27 00:00:00 Completed [facility] HIB 4 Dose Schedule 2001-10-27 00:00:00 Completed [facility] DTAP 2001-10-27 00:00:00 Completed [facility] HIB 4 Dose Schedule 2001-10-27 00:00:00 Completed [facility] DTAP 2001-10-27 00:00:00 Completed [facility] HIB 4 Dose Schedule 2001-10-27 00:00:00 Completed [facility] DTAP 2001-10-27 00:00:00 Completed [facility] HIB 4 Dose Schedule 2001-10-27 00:00:00 Completed [facility] DTAP 2001-10-27 00:00:00 Completed [facility] HIB 4 Dose Schedule 2001-10-27 00:00:00 Completed [facility] DTAP 2001-10-27 00:00:00 Completed [facility] DTAP 2001-10-27 00:00:00 Completed [facility] HIB 4 Dose Schedule 2001-10-27 00:00:00 Completed [facility] DTAP 2001-10-27 00:00:00 Completed [facility] HIB 4 Dose Schedule 2001-10-27 00:00:00 Completed [facility] HIB 4 Dose Schedule 2001-10-27 00:00:00 Completed [facility] DTAP 2001-10-27 00:00:00 Completed [facility] HIB 4 Dose Schedule 2001-10-27 00:00:00 Completed [facility] DTAP 2001-10-27 00:00:00 Completed [facility] HIB 4 Dose Schedule 2001-10-27 00:00:00 Completed [facility] DTAP 2001-10-27 00:00:00 Completed [facility] HIB 4 Dose Schedule 2001-10-27 00:00:00 Completed [facility] DTAP 2001-10-27 00:00:00 Completed [facility] HIB 4 Dose Schedule 2001-10-27 00:00:00 Completed [facility] DTAP 2001-10-27 00:00:00 Completed [facility] HIB 4 Dose Schedule 2001-10-27 00:00:00 Completed [facility] DTAP 2001-10-27 00:00:00 Completed [facility] HIB 4 Dose Schedule 2001-10-27 00:00:00 Completed [facility] DTAP 2001-10-27 00:00:00 Completed [facility] HIB 4 Dose Schedule 2001-10-27 00:00:00 Completed [facility] DTAP 2001-10-27 00:00:00 Completed [facility] DTAP 2001-10-27 00:00:00 Completed [facility] HIB 4 Dose Schedule 2001-10-27 00:00:00 Completed [facility] HIB 4 Dose Schedule 2001-10-27 00:00:00 Completed [facility] DTAP 2001-10-27 00:00:00 Completed [facility] HIB 4 Dose Schedule 2001-10-27 00:00:00 Completed [facility] DTAP 2001-10-27 00:00:00 Completed [facility] HIB 4 Dose Schedule 2001-10-27 00:00:00 Completed [facility] DTAP 2001-10-27 00:00:00 Completed [facility] HIB 4 Dose Schedule 2001-10-27 00:00:00 Completed [facility] DTAP 2001-10-27 00:00:00 Completed [facility] HIB 4 Dose Schedule 2001-10-27 00:00:00 Completed [facility] DTAP 2001-10-27 00:00:00 Completed [facility] HIB 4 Dose Schedule 2001-10-27 00:00:00 Completed [facility] DTAP 2001-10-27 00:00:00 Completed [facility] HIB 4 Dose Schedule 2001-10-27 00:00:00 Completed [facility] DTAP 2001-10-27 00:00:00 Completed [facility] HIB 4 Dose Schedule 2001-10-27 00:00:00 Completed [facility] DTAP 2001-10-27 00:00:00 Completed [facility] DTAP 2001-10-27 00:00:00 Completed [facility] HIB 4 Dose Schedule 2001-10-27 00:00:00 Completed [facility] HIB 4 Dose Schedule 2001-10-27 00:00:00 Completed [facility] DTAP 2001-10-27 00:00:00 Completed [facility] HIB 4 Dose Schedule 2001-10-27 00:00:00 Completed [facility] DTAP 2001-10-27 00:00:00 Completed [facility] HIB 4 Dose Schedule 2001-10-27 00:00:00 Completed [facility] DTAP 2001-10-27 00:00:00 Completed [facility] HIB 4 Dose Schedule 2001-10-27 00:00:00 Completed [facility] DTAP 2001-10-27 00:00:00 Completed [facility] HIB 4 Dose Schedule 2001-10-27 00:00:00 Completed [facility] DTAP 2001-10-27 00:00:00 Completed [facility] HIB 4 Dose Schedule 2001-10-27 00:00:00 Completed [facility] DTAP 2001-10-27 00:00:00 Completed [facility] HIB 4 Dose Schedule 2001-10-27 00:00:00 Completed [facility] DTAP 2001-10-27 00:00:00 Completed [facility] HIB 4 Dose Schedule 2001-10-27 00:00:00 Completed [facility] DTAP 2001-10-27 00:00:00 Completed [facility] HIB 4 Dose Schedule 2001-10-27 00:00:00 Completed [facility] DTAP 2001-10-27 00:00:00 Completed [facility] DTAP 2001-10-27 00:00:00 Completed [facility] HIB 4 Dose Schedule 2001-10-27 00:00:00 Completed [facility] HIB 4 Dose Schedule 2001-10-27 00:00:00 Completed [facility] DTAP 2001-10-27 00:00:00 Completed [facility] HIB 4 Dose Schedule 2001-10-27 00:00:00 Completed [facility] DTAP 2001-10-27 00:00:00 Completed [facility] HIB 4 Dose Schedule 2001-10-27 00:00:00 Completed [facility] DTAP 2001-10-27 00:00:00 Completed [facility] HIB 4 Dose Schedule 2001-10-27 00:00:00 Completed [facility] DTAP 2001-10-27 00:00:00 Completed [facility] DTAP 2001-10-27 00:00:00 Completed [facility] HIB 4 Dose Schedule 2001-10-27 00:00:00 Completed [facility] DTAP 2001-10-27 00:00:00 Completed [facility] HIB 4 Dose Schedule 2001-10-27 00:00:00 Completed [facility] DTAP 2001-10-27 00:00:00 Completed [facility] HIB 4 Dose Schedule 2001-10-27 00:00:00 Completed [facility] DTAP 2001-10-27 00:00:00 Completed [facility] HIB 4 Dose Schedule 2001-10-27 00:00:00 Completed [facility] DTAP 2001-10-27 00:00:00 Completed [facility] HIB 4 Dose Schedule 2001-10-27 00:00:00 Completed [facility] DTAP 2001-10-27 00:00:00 Completed [facility] HIB 4 Dose Schedule 2001-10-27 00:00:00 Completed [facility] DTAP 2001-10-27 00:00:00 Completed [facility] HIB 4 Dose Schedule 2001-10-27 00:00:00 Completed [facility] DTAP 2001-10-27 00:00:00 Completed [facility] HIB 4 Dose Schedule 2001-10-27 00:00:00 Completed [facility] DTAP 2001-10-27 00:00:00 Completed [facility] HIB 4 Dose Schedule 2001-10-27 00:00:00 Completed [facility] DTAP 2001-10-27 00:00:00 Completed [facility] HIB 4 Dose Schedule 2001-10-27 00:00:00 Completed [facility] DTAP 2001-10-27 00:00:00 Completed [facility] DTAP 2001-10-27 00:00:00 Completed [facility] HIB 4 Dose Schedule 2001-10-27 00:00:00 Completed [facility] HIB 4 Dose Schedule 2001-10-27 00:00:00 Completed [facility] DTAP 2001-10-27 00:00:00 Completed [facility] HIB 4 Dose Schedule 2001-10-27 00:00:00 Completed [facility] DTAP 2001-10-27 00:00:00 Completed [facility] HIB 4 Dose Schedule 2001-10-27 00:00:00 Completed [facility] DTAP 2001-10-27 00:00:00 Completed [facility] HIB 4 Dose Schedule 2001-10-27 00:00:00 Completed [facility] DTAP 2001-10-27 00:00:00 Completed [facility] HIB 4 Dose Schedule 2001-10-27 00:00:00 Completed [facility] DTAP 2001-10-27 00:00:00 Completed [facility] HIB 4 Dose Schedule 2001-10-27 00:00:00 Completed [facility] DTAP 2001-10-27 00:00:00 Completed [facility] HIB 4 Dose Schedule 2001-10-27 00:00:00 Completed [facility] DTAP 2001-10-27 00:00:00 Completed [facility] HIB 4 Dose Schedule 2001-10-27 00:00:00 Completed [facility] DTAP 2001-10-27 00:00:00 Completed [facility] HIB 4 Dose Schedule 2001-10-27 00:00:00 Completed [facility] DTAP 2001-10-27 00:00:00 Completed [facility] DTAP 2001-10-27 00:00:00 Completed [facility] HIB 4 Dose Schedule 2001-10-27 00:00:00 Completed [facility] HIB 4 Dose Schedule 2001-10-27 00:00:00 Completed [facility] DTAP 2001-10-27 00:00:00 Completed [facility] HIB 4 Dose Schedule 2001-10-27 00:00:00 Completed [facility] DTAP 2001-10-27 00:00:00 Completed [facility] HIB 4 Dose Schedule 2001-10-27 00:00:00 Completed [facility] DTAP 2001-10-27 00:00:00 Completed [facility] HIB 4 Dose Schedule 2001-10-27 00:00:00 Completed [facility] DTAP 2001-10-27 00:00:00 Completed [facility] HIB 4 Dose Schedule 2001-10-27 00:00:00 Completed [facility] DTAP 2001-10-27 00:00:00 Completed [facility] HIB 4 Dose Schedule 2001-10-27 00:00:00 Completed [facility] DTAP 2001-10-27 00:00:00 Completed [facility] HIB 4 Dose Schedule 2001-10-27 00:00:00 Completed [facility] DTAP 2001-10-27 00:00:00 Completed [facility] HIB 4 Dose Schedule 2001-10-27 00:00:00 Completed [facility] DTAP 2001-10-27 00:00:00 Completed [facility] DTAP 2001-10-27 00:00:00 Completed [facility] HIB 4 Dose Schedule 2001-10-27 00:00:00 Completed [facility] HIB 4 Dose Schedule 2001-10-27 00:00:00 Completed [facility] DTAP 2001-10-27 00:00:00 Completed [facility] HIB 4 Dose Schedule 2001-10-27 00:00:00 Completed [facility] DTAP 2001-10-27 00:00:00 Completed [facility] HIB 4 Dose Schedule 2001-10-27 00:00:00 Completed [facility] DTAP 2001-10-27 00:00:00 Completed [facility] HIB 4 Dose Schedule 2001-10-27 00:00:00 Completed [facility] DTAP 2001-10-27 00:00:00 Completed [facility] HIB 4 Dose Schedule 2001-10-27 00:00:00 Completed [facility] DTAP 2001-10-27 00:00:00 Completed [facility] HIB 4 Dose Schedule 2001-10-27 00:00:00 Completed [facility] DTAP 2001-10-27 00:00:00 Completed [facility] HIB 4 Dose Schedule 2001-10-27 00:00:00 Completed [facility] DTAP 2001-10-27 00:00:00 Completed [facility] HIB 4 Dose Schedule 2001-10-27 00:00:00 Completed [facility] DTAP 2001-10-27 00:00:00 Completed [facility] HIB 4 Dose Schedule 2001-10-27 00:00:00 Completed [facility] DTAP 2001-10-27 00:00:00 Completed [facility] DTAP 2001-10-27 00:00:00 Completed [facility] HIB 4 Dose Schedule 2001-10-27 00:00:00 Completed [facility] HIB 4 Dose Schedule 2001-10-27 00:00:00 Completed [facility] DTAP 2001-10-27 00:00:00 Completed [facility] HIB 4 Dose Schedule 2001-10-27 00:00:00 Completed [facility] DTAP 2001-10-27 00:00:00 Completed [facility] HIB 4 Dose Schedule 2001-10-27 00:00:00 Completed [facility] DTAP 2001-10-27 00:00:00 Completed [facility] HIB 4 Dose Schedule 2001-10-27 00:00:00 Completed [facility] DTAP 2001-10-27 00:00:00 Completed [facility] HIB 4 Dose Schedule 2001-10-27 00:00:00 Completed [facility] DTAP 2001-10-27 00:00:00 Completed [facility] HIB 4 Dose Schedule 2001-10-27 00:00:00 Completed [facility] DTAP 2001-10-27 00:00:00 Completed [facility] HIB 4 Dose Schedule 2001-10-27 00:00:00 Completed [facility] DTAP 2001-10-27 00:00:00 Completed [facility] DTAP 2001-10-27 00:00:00 Completed [facility] HIB 4 Dose Schedule 2001-10-27 00:00:00 Completed [facility] HIB 4 Dose Schedule 2001-10-27 00:00:00 Completed [facility] DTAP 2001-10-27 00:00:00 Completed [facility] HIB 4 Dose Schedule 2001-10-27 00:00:00 Completed [facility] DTAP 2001-10-27 00:00:00 Completed [facility] HIB 4 Dose Schedule 2001-10-27 00:00:00 Completed [facility] DTAP 2001-10-27 00:00:00 Completed [facility] HIB 4 Dose Schedule 2001-10-27 00:00:00 Completed [facility] DTAP 2001-10-27 00:00:00 Completed [facility] HIB 4 Dose Schedule 2001-10-27 00:00:00 Completed [facility] DTAP 2001-10-27 00:00:00 Completed [facility] HIB 4 Dose Schedule 2001-10-27 00:00:00 Completed [facility] DTAP 2001-10-27 00:00:00 Completed [facility] HIB 4 Dose Schedule 2001-10-27 00:00:00 Completed [facility] DTAP 2001-10-27 00:00:00 Completed [facility] HIB 4 Dose Schedule 2001-10-27 00:00:00 Completed [facility] DTAP 2001-10-27 00:00:00 Completed [facility] DTAP 2001-10-27 00:00:00 Completed [facility] HIB 4 Dose Schedule 2001-10-27 00:00:00 Completed [facility] HIB 4 Dose Schedule 2001-10-27 00:00:00 Completed [facility] DTAP 2001-10-27 00:00:00 Completed [facility] HIB 4 Dose Schedule 2001-10-27 00:00:00 Completed [facility] DTAP 2001-10-27 00:00:00 Completed [facility] HIB 4 Dose Schedule 2001-10-27 00:00:00 Completed [facility] DTAP 2001-10-27 00:00:00 Completed [facility] HIB 4 Dose Schedule 2001-10-27 00:00:00 Completed [facility] DTAP 2001-10-27 00:00:00 Completed [facility] HIB 4 Dose Schedule 2001-10-27 00:00:00 Completed [facility] DTAP 2001-10-27 00:00:00 Completed [facility] HIB 4 Dose Schedule 2001-10-27 00:00:00 Completed [facility] DTAP 2001-10-27 00:00:00 Completed [facility] HIB 4 Dose Schedule 2001-10-27 00:00:00 Completed [facility] DTAP 2001-10-27 00:00:00 Completed [facility] HIB 4 Dose Schedule 2001-10-27 00:00:00 Completed [facility] DTAP 2001-10-27 00:00:00 Completed [facility] HIB 4 Dose Schedule 2001-10-27 00:00:00 Completed [facility] DTAP 2001-10-27 00:00:00 Completed [facility] HIB 4 Dose Schedule 2001-10-27 00:00:00 Completed [facility] DTAP 2001-10-27 00:00:00 Completed [facility] DTAP 2001-10-27 00:00:00 Completed [facility] HIB 4 Dose Schedule 2001-10-27 00:00:00 Completed [facility] HIB 4 Dose Schedule 2001-10-27 00:00:00 Completed [facility] DTAP 2001-10-27 00:00:00 Completed [facility] HIB 4 Dose Schedule 2001-10-27 00:00:00 Completed [facility] DTAP 2001-10-27 00:00:00 Completed [facility] HIB 4 Dose Schedule 2001-10-27 00:00:00 Completed [facility] DTAP 2001-10-27 00:00:00 Completed [facility] HIB 4 Dose Schedule 2001-10-27 00:00:00 Completed [facility] DTAP 2001-10-27 00:00:00 Completed [facility] HIB 4 Dose Schedule 2001-10-27 00:00:00 Completed [facility] DTAP 2001-10-27 00:00:00 Completed [facility] HIB 4 Dose Schedule 2001-10-27 00:00:00 Completed [facility] DTAP 2001-10-27 00:00:00 Completed HIB 4 Dose Schedule 2001-10-27 00:00:00 Completed DTAP 2001-10-27 00:00:00 Completed [facility] HIB 4 Dose Schedule 2001-10-27 00:00:00 Completed [facility] DTAP 2001-10-27 00:00:00 Completed [facility] HIB 4 Dose Schedule 2001-10-27 00:00:00 Completed [facility] DTAP 2001-10-27 00:00:00 Completed [facility] HIB 4 Dose Schedule 2001-10-27 00:00:00 Completed [facility] DTAP 2001-10-27 00:00:00 Completed [facility] HIB 4 Dose Schedule 2001-10-27 00:00:00 Completed [facility] MMR 2001-07-30 00:00:00 Completed [facility] Pneumococcal 7 Conjugate, PCV7 (Prevnar7) 2001-07-30 00:00:00 Completed [facility] MMR 2001-07-30 00:00:00 Completed [facility] MMR 2001-07-30 00:00:00 Completed [facility] Pneumococcal 7 Conjugate, PCV7 (Prevnar7) 2001-07-30 00:00:00 Completed [facility] Pneumococcal 7 Conjugate, PCV7 (Prevnar7) 2001-07-30 00:00:00 Completed [facility] MMR 2001-07-30 00:00:00 Completed [facility] Pneumococcal 7 Conjugate, PCV7 (Prevnar7) 2001-07-30 00:00:00 Completed [facility] MMR 2001-07-30 00:00:00 Completed [facility] Pneumococcal 7 Conjugate, PCV7 (Prevnar7) 2001-07-30 00:00:00 Completed [facility] MMR 2001-07-30 00:00:00 Completed [facility] Pneumococcal 7 Conjugate, PCV7 (Prevnar7) 2001-07-30 00:00:00 Completed [facility] MMR 2001-07-30 00:00:00 Completed [facility] Pneumococcal 7 Conjugate, PCV7 (Prevnar7) 2001-07-30 00:00:00 Completed [facility] 2001-07-30 00:00:00 Completed [facility] Pneumococcal 7 Conjugate, PCV7 (Prevnar7) 2001-07-30 00:00:00 Completed [facility] 2001-07-30 00:00:00 Completed [facility] Pneumococcal 7 Conjugate, PCV7 (Prevnar7) 2001-07-30 00:00:00 Completed [facility] 2001-07-30 00:00:00 Completed [facility] Pneumococcal 7 Conjugate, PCV7 (Prevnar7) 2001-07-30 00:00:00 Completed [facility] 2001-07-30 00:00:00 Completed [facility] Pneumococcal 7 Conjugate, PCV7 (Prevnar7) 2001-07-30 00:00:00 Completed [facility] 2001-07-30 00:00:00 Completed [facility] Pneumococcal 7 Conjugate, PCV7 (Prevnar7) 2001-07-30 00:00:00 Completed [facility] 2001-07-30 00:00:00 Completed [facility] Pneumococcal 7 Conjugate, PCV7 (Prevnar7) 2001-07-30 00:00:00 Completed [facility] 2001-07-30 00:00:00 Completed [facility] 2001-07-30 00:00:00 Completed [facility] Pneumococcal 7 Conjugate, PCV7 (Prevnar7) 2001-07-30 00:00:00 Completed [facility] Pneumococcal 7 Conjugate, PCV7 (Prevnar7) 2001-07-30 00:00:00 Completed [facility] 2001-07-30 00:00:00 Completed [facility] Pneumococcal 7 Conjugate, PCV7 (Prevnar7) 2001-07-30 00:00:00 Completed [facility] 2001-07-30 00:00:00 Completed [facility] Pneumococcal 7 Conjugate, PCV7 (Prevnar7) 2001-07-30 00:00:00 Completed [facility] 2001-07-30 00:00:00 Completed [facility] Pneumococcal 7 Conjugate, PCV7 (Prevnar7) 2001-07-30 00:00:00 Completed [facility] 2001-07-30 00:00:00 Completed [facility] Pneumococcal 7 Conjugate, PCV7 (Prevnar7) 2001-07-30 00:00:00 Completed [facility] 2001-07-30 00:00:00 Completed [facility] Pneumococcal 7 Conjugate, PCV7 (Prevnar7) 2001-07-30 00:00:00 Completed [facility] 2001-07-30 00:00:00 Completed [facility] Pneumococcal 7 Conjugate, PCV7 (Prevnar7) 2001-07-30 00:00:00 Completed [facility] 2001-07-30 00:00:00 Completed [facility] Pneumococcal 7 Conjugate, PCV7 (Prevnar7) 2001-07-30 00:00:00 Completed [facility] 2001-07-30 00:00:00 Completed [facility] 2001-07-30 00:00:00 Completed [facility] Pneumococcal 7 Conjugate, PCV7 (Prevnar7) 2001-07-30 00:00:00 Completed [facility] Pneumococcal 7 Conjugate, PCV7 (Prevnar7) 2001-07-30 00:00:00 Completed [facility] 2001-07-30 00:00:00 Completed [facility] Pneumococcal 7 Conjugate, PCV7 (Prevnar7) 2001-07-30 00:00:00 Completed [facility] 2001-07-30 00:00:00 Completed [facility] Pneumococcal 7 Conjugate, PCV7 (Prevnar7) 2001-07-30 00:00:00 Completed [facility] 2001-07-30 00:00:00 Completed [facility] Pneumococcal 7 Conjugate, PCV7 (Prevnar7) 2001-07-30 00:00:00 Completed [facility] 2001-07-30 00:00:00 Completed [facility] Pneumococcal 7 Conjugate, PCV7 (Prevnar7) 2001-07-30 00:00:00 Completed [facility] 2001-07-30 00:00:00 Completed [facility] Pneumococcal 7 Conjugate, PCV7 (Prevnar7) 2001-07-30 00:00:00 Completed [facility] 2001-07-30 00:00:00 Completed [facility] Pneumococcal 7 Conjugate, PCV7 (Prevnar7) 2001-07-30 00:00:00 Completed [facility] 2001-07-30 00:00:00 Completed [facility] Pneumococcal 7 Conjugate, PCV7 (Prevnar7) 2001-07-30 00:00:00 Completed [facility] 2001-07-30 00:00:00 Completed [facility] Pneumococcal 7 Conjugate, PCV7 (Prevnar7) 2001-07-30 00:00:00 Completed [facility] 2001-07-30 00:00:00 Completed [facility] 2001-07-30 00:00:00 Completed [facility] Pneumococcal 7 Conjugate, PCV7 (Prevnar7) 2001-07-30 00:00:00 Completed [facility] Pneumococcal 7 Conjugate, PCV7 (Prevnar7) 2001-07-30 00:00:00 Completed [facility] 2001-07-30 00:00:00 Completed [facility] Pneumococcal 7 Conjugate, PCV7 (Prevnar7) 2001-07-30 00:00:00 Completed [facility] 2001-07-30 00:00:00 Completed [facility] Pneumococcal 7 Conjugate, PCV7 (Prevnar7) 2001-07-30 00:00:00 Completed [facility] 2001-07-30 00:00:00 Completed [facility] Pneumococcal 7 Conjugate, PCV7 (Prevnar7) 2001-07-30 00:00:00 Completed [facility] 2001-07-30 00:00:00 Completed [facility] Pneumococcal 7 Conjugate, PCV7 (Prevnar7) 2001-07-30 00:00:00 Completed [facility] 2001-07-30 00:00:00 Completed [facility] Pneumococcal 7 Conjugate, PCV7 (Prevnar7) 2001-07-30 00:00:00 Completed [facility] 2001-07-30 00:00:00 Completed [facility] Pneumococcal 7 Conjugate, PCV7 (Prevnar7) 2001-07-30 00:00:00 Completed [facility] 2001-07-30 00:00:00 Completed [facility] Pneumococcal 7 Conjugate, PCV7 (Prevnar7) 2001-07-30 00:00:00 Completed [facility] 2001-07-30 00:00:00 Completed [facility] Pneumococcal 7 Conjugate, PCV7 (Prevnar7) 2001-07-30 00:00:00 Completed [facility] 2001-07-30 00:00:00 Completed [facility] Pneumococcal 7 Conjugate, PCV7 (Prevnar7) 2001-07-30 00:00:00 Completed [facility] 2001-07-30 00:00:00 Completed [facility] Pneumococcal 7 Conjugate, PCV7 (Prevnar7) 2001-07-30 00:00:00 Completed [facility] 2001-07-30 00:00:00 Completed [facility] Pneumococcal 7 Conjugate, PCV7 (Prevnar7) 2001-07-30 00:00:00 Completed [facility] 2001-07-30 00:00:00 Completed [facility] Pneumococcal 7 Conjugate, PCV7 (Prevnar7) 2001-07-30 00:00:00 Completed [facility] 2001-07-30 00:00:00 Completed [facility] 2001-07-30 00:00:00 Completed [facility] Pneumococcal 7 Conjugate, PCV7 (Prevnar7) 2001-07-30 00:00:00 Completed [facility] Pneumococcal 7 Conjugate, PCV7 (Prevnar7) 2001-07-30 00:00:00 Completed [facility] 2001-07-30 00:00:00 Completed [facility] Pneumococcal 7 Conjugate, PCV7 (Prevnar7) 2001-07-30 00:00:00 Completed [facility] 2001-07-30 00:00:00 Completed [facility] Pneumococcal 7 Conjugate, PCV7 (Prevnar7) 2001-07-30 00:00:00 Completed [facility] 2001-07-30 00:00:00 Completed [facility] Pneumococcal 7 Conjugate, PCV7 (Prevnar7) 2001-07-30 00:00:00 Completed [facility] 2001-07-30 00:00:00 Completed [facility] Pneumococcal 7 Conjugate, PCV7 (Prevnar7) 2001-07-30 00:00:00 Completed [facility] 2001-07-30 00:00:00 Completed [facility] Pneumococcal 7 Conjugate, PCV7 (Prevnar7) 2001-07-30 00:00:00 Completed [facility] 2001-07-30 00:00:00 Completed [facility] Pneumococcal 7 Conjugate, PCV7 (Prevnar7) 2001-07-30 00:00:00 Completed [facility] 2001-07-30 00:00:00 Completed [facility] Pneumococcal 7 Conjugate, PCV7 (Prevnar7) 2001-07-30 00:00:00 Completed [facility] 2001-07-30 00:00:00 Completed [facility] Pneumococcal 7 Conjugate, PCV7 (Prevnar7) 2001-07-30 00:00:00 Completed [facility] 2001-07-30 00:00:00 Completed [facility] 2001-07-30 00:00:00 Completed [facility] Pneumococcal 7 Conjugate, PCV7 (Prevnar7) 2001-07-30 00:00:00 Completed [facility] Pneumococcal 7 Conjugate, PCV7 (Prevnar7) 2001-07-30 00:00:00 Completed [facility] 2001-07-30 00:00:00 Completed [facility] Pneumococcal 7 Conjugate, PCV7 (Prevnar7) 2001-07-30 00:00:00 Completed [facility] 2001-07-30 00:00:00 Completed [facility] Pneumococcal 7 Conjugate, PCV7 (Prevnar7) 2001-07-30 00:00:00 Completed [facility] 2001-07-30 00:00:00 Completed [facility] Pneumococcal 7 Conjugate, PCV7 (Prevnar7) 2001-07-30 00:00:00 Completed [facility] 2001-07-30 00:00:00 Completed [facility] Pneumococcal 7 Conjugate, PCV7 (Prevnar7) 2001-07-30 00:00:00 Completed [facility] 2001-07-30 00:00:00 Completed [facility] Pneumococcal 7 Conjugate, PCV7 (Prevnar7) 2001-07-30 00:00:00 Completed [facility] 2001-07-30 00:00:00 Completed [facility] Pneumococcal 7 Conjugate, PCV7 (Prevnar7) 2001-07-30 00:00:00 Completed [facility] 2001-07-30 00:00:00 Completed [facility] Pneumococcal 7 Conjugate, PCV7 (Prevnar7) 2001-07-30 00:00:00 Completed [facility] 2001-07-30 00:00:00 Completed [facility] Pneumococcal 7 Conjugate, PCV7 (Prevnar7) 2001-07-30 00:00:00 Completed [facility] 2001-07-30 00:00:00 Completed [facility] 2001-07-30 00:00:00 Completed [facility] Pneumococcal 7 Conjugate, PCV7 (Prevnar7) 2001-07-30 00:00:00 Completed [facility] Pneumococcal 7 Conjugate, PCV7 (Prevnar7) 2001-07-30 00:00:00 Completed [facility] 2001-07-30 00:00:00 Completed [facility] Pneumococcal 7 Conjugate, PCV7 (Prevnar7) 2001-07-30 00:00:00 Completed [facility] 2001-07-30 00:00:00 Completed [facility] Pneumococcal 7 Conjugate, PCV7 (Prevnar7) 2001-07-30 00:00:00 Completed [facility] 2001-07-30 00:00:00 Completed [facility] Pneumococcal 7 Conjugate, PCV7 (Prevnar7) 2001-07-30 00:00:00 Completed [facility] 2001-07-30 00:00:00 Completed [facility] Pneumococcal 7 Conjugate, PCV7 (Prevnar7) 2001-07-30 00:00:00 Completed [facility] 2001-07-30 00:00:00 Completed [facility] Pneumococcal 7 Conjugate, PCV7 (Prevnar7) 2001-07-30 00:00:00 Completed [facility] 2001-07-30 00:00:00 Completed [facility] Pneumococcal 7 Conjugate, PCV7 (Prevnar7) 2001-07-30 00:00:00 Completed [facility] 2001-07-30 00:00:00 Completed [facility] Pneumococcal 7 Conjugate, PCV7 (Prevnar7) 2001-07-30 00:00:00 Completed [facility] 2001-07-30 00:00:00 Completed [facility] 2001-07-30 00:00:00 Completed [facility] Pneumococcal 7 Conjugate, PCV7 (Prevnar7) 2001-07-30 00:00:00 Completed [facility] Pneumococcal 7 Conjugate, PCV7 (Prevnar7) 2001-07-30 00:00:00 Completed [facility] 2001-07-30 00:00:00 Completed [facility] Pneumococcal 7 Conjugate, PCV7 (Prevnar7) 2001-07-30 00:00:00 Completed [facility] 2001-07-30 00:00:00 Completed [facility] Pneumococcal 7 Conjugate, PCV7 (Prevnar7) 2001-07-30 00:00:00 Completed [facility] 2001-07-30 00:00:00 Completed [facility] Pneumococcal 7 Conjugate, PCV7 (Prevnar7) 2001-07-30 00:00:00 Completed [facility] 2001-07-30 00:00:00 Completed [facility] Pneumococcal 7 Conjugate, PCV7 (Prevnar7) 2001-07-30 00:00:00 Completed [facility] 2001-07-30 00:00:00 Completed [facility] Pneumococcal 7 Conjugate, PCV7 (Prevnar7) 2001-07-30 00:00:00 Completed [facility] 2001-07-30 00:00:00 Completed [facility] Pneumococcal 7 Conjugate, PCV7 (Prevnar7) 2001-07-30 00:00:00 Completed [facility] 2001-07-30 00:00:00 Completed [facility] Pneumococcal 7 Conjugate, PCV7 (Prevnar7) 2001-07-30 00:00:00 Completed [facility] 2001-07-30 00:00:00 Completed [facility] Pneumococcal 7 Conjugate, PCV7 (Prevnar7) 2001-07-30 00:00:00 Completed [facility] 2001-07-30 00:00:00 Completed [facility] 2001-07-30 00:00:00 Completed [facility] Pneumococcal 7 Conjugate, PCV7 (Prevnar7) 2001-07-30 00:00:00 Completed [facility] Pneumococcal 7 Conjugate, PCV7 (Prevnar7) 2001-07-30 00:00:00 Completed [facility] MMR 2001-07-30 00:00:00 Completed [facility] Pneumococcal 7 Conjugate, PCV7 (Prevnar7) 2001-07-30 00:00:00 Completed [facility] 2001-07-30 00:00:00 Completed [facility] Pneumococcal 7 Conjugate, PCV7 (Prevnar7) 2001-07-30 00:00:00 Completed [facility] 2001-07-30 00:00:00 Completed [facility] Pneumococcal 7 Conjugate, PCV7 (Prevnar7) 2001-07-30 00:00:00 Completed [facility] 2001-07-30 00:00:00 Completed [facility] Pneumococcal 7 Conjugate, PCV7 (Prevnar7) 2001-07-30 00:00:00 Completed [facility] 2001-07-30 00:00:00 Completed [facility] Pneumococcal 7 Conjugate, PCV7 (Prevnar7) 2001-07-30 00:00:00 Completed [facility] 2001-07-30 00:00:00 Completed [facility] Pneumococcal 7 Conjugate, PCV7 (Prevnar7) 2001-07-30 00:00:00 Completed [facility] 2001-07-30 00:00:00 Completed [facility] 2001-07-30 00:00:00 Completed [facility] Pneumococcal 7 Conjugate, PCV7 (Prevnar7) 2001-07-30 00:00:00 Completed [facility] Pneumococcal 7 Conjugate, PCV7 (Prevnar7) 2001-07-30 00:00:00 Completed [facility] 2001-07-30 00:00:00 Completed [facility] Pneumococcal 7 Conjugate, PCV7 (Prevnar7) 2001-07-30 00:00:00 Completed [facility] 2001-07-30 00:00:00 Completed [facility] Pneumococcal 7 Conjugate, PCV7 (Prevnar7) 2001-07-30 00:00:00 Completed [facility] 2001-07-30 00:00:00 Completed [facility] Pneumococcal 7 Conjugate, PCV7 (Prevnar7) 2001-07-30 00:00:00 Completed [facility] 2001-07-30 00:00:00 Completed [facility] Pneumococcal 7 Conjugate, PCV7 (Prevnar7) 2001-07-30 00:00:00 Completed [facility] 2001-07-30 00:00:00 Completed [facility] Pneumococcal 7 Conjugate, PCV7 (Prevnar7) 2001-07-30 00:00:00 Completed [facility] 2001-07-30 00:00:00 Completed [facility] Pneumococcal 7 Conjugate, PCV7 (Prevnar7) 2001-07-30 00:00:00 Completed [facility] 2001-07-30 00:00:00 Completed [facility] Pneumococcal 7 Conjugate, PCV7 (Prevnar7) 2001-07-30 00:00:00 Completed [facility] 2001-07-30 00:00:00 Completed [facility] 2001-07-30 00:00:00 Completed [facility] Pneumococcal 7 Conjugate, PCV7 (Prevnar7) 2001-07-30 00:00:00 Completed [facility] Pneumococcal 7 Conjugate, PCV7 (Prevnar7) 2001-07-30 00:00:00 Completed [facility] 2001-07-30 00:00:00 Completed [facility] Pneumococcal 7 Conjugate, PCV7 (Prevnar7) 2001-07-30 00:00:00 Completed [facility] 2001-07-30 00:00:00 Completed [facility] Pneumococcal 7 Conjugate, PCV7 (Prevnar7) 2001-07-30 00:00:00 Completed [facility] 2001-07-30 00:00:00 Completed [facility] Pneumococcal 7 Conjugate, PCV7 (Prevnar7) 2001-07-30 00:00:00 Completed [facility] 2001-07-30 00:00:00 Completed [facility] Pneumococcal 7 Conjugate, PCV7 (Prevnar7) 2001-07-30 00:00:00 Completed [facility] 2001-07-30 00:00:00 Completed [facility] Pneumococcal 7 Conjugate, PCV7 (Prevnar7) 2001-07-30 00:00:00 Completed [facility] 2001-07-30 00:00:00 Completed [facility] Pneumococcal 7 Conjugate, PCV7 (Prevnar7) 2001-07-30 00:00:00 Completed [facility] 2001-07-30 00:00:00 Completed [facility] Pneumococcal 7 Conjugate, PCV7 (Prevnar7) 2001-07-30 00:00:00 Completed [facility] 2001-07-30 00:00:00 Completed [facility] Pneumococcal 7 Conjugate, PCV7 (Prevnar7) 2001-07-30 00:00:00 Completed [facility] 2001-07-30 00:00:00 Completed [facility] Pneumococcal 7 Conjugate, PCV7 (Prevnar7) 2001-07-30 00:00:00 Completed [facility] 2001-07-30 00:00:00 Completed [facility] 2001-07-30 00:00:00 Completed [facility] Pneumococcal 7 Conjugate, PCV7 (Prevnar7) 2001-07-30 00:00:00 Completed [facility] Pneumococcal 7 Conjugate, PCV7 (Prevnar7) 2001-07-30 00:00:00 Completed [facility] 2001-07-30 00:00:00 Completed [facility] Pneumococcal 7 Conjugate, PCV7 (Prevnar7) 2001-07-30 00:00:00 Completed [facility] 2001-07-30 00:00:00 Completed [facility] Pneumococcal 7 Conjugate, PCV7 (Prevnar7) 2001-07-30 00:00:00 Completed [facility] 2001-07-30 00:00:00 Completed [facility] Pneumococcal 7 Conjugate, PCV7 (Prevnar7) 2001-07-30 00:00:00 Completed [facility] 2001-07-30 00:00:00 Completed Pneumococcal 7 Conjugate, PCV7 (Prevnar7) 2001-07-30 00:00:00 Completed [facility] 2001-07-30 00:00:00 Completed [facility] Pneumococcal 7 Conjugate, PCV7 (Prevnar7) 2001-07-30 00:00:00 Completed [facility] 2001-07-30 00:00:00 Completed [facility] Pneumococcal 7 Conjugate, PCV7 (Prevnar7) 2001-07-30 00:00:00 Completed [facility] MMR 2001-07-30 00:00:00 Completed [facility] Pneumococcal 7 Conjugate, PCV7 (Prevnar7) 2001-07-30 00:00:00 Completed [facility] MMR 2001-07-30 00:00:00 Completed [facility] Pneumococcal 7 Conjugate, PCV7 (Prevnar7) 2001-07-30 00:00:00 Completed [facility] Polio (IPV/OPV) 2001-05-17 00:00:00 Completed [facility] Varicella (varivax)(chicken pox) 2001-05-17 00:00:00 Completed [facility] Pneumococcal 7 Conjugate, PCV7 (Prevnar7) 2001-05-17 00:00:00 Completed [facility] Polio (IPV/OPV) 2001-05-17 00:00:00 Completed [facility] Varicella (varivax)(chicken pox) 2001-05-17 00:00:00 Completed [facility] Pneumococcal 7 Conjugate, PCV7 (Prevnar7) 2001-05-17 00:00:00 Completed [facility] Polio (IPV/OPV) 2001-05-17 00:00:00 Completed [facility] Varicella (varivax)(chicken pox) 2001-05-17 00:00:00 Completed [facility] Pneumococcal 7 Conjugate, PCV7 (Prevnar7) 2001-05-17 00:00:00 Completed [facility] Pneumococcal 7 Conjugate, PCV7 (Prevnar7) 2001-05-17 00:00:00 Completed [facility] Polio (IPV/OPV) 2001-05-17 00:00:00 Completed [facility] Varicella (varivax)(chicken pox) 2001-05-17 00:00:00 Completed [facility] Polio (IPV/OPV) 2001-05-17 00:00:00 Completed [facility] Varicella (varivax)(chicken pox) 2001-05-17 00:00:00 Completed [facility] Pneumococcal 7 Conjugate, PCV7 (Prevnar7) 2001-05-17 00:00:00 Completed [facility] Polio (IPV/OPV) 2001-05-17 00:00:00 Completed [facility] Varicella (varivax)(chicken pox) 2001-05-17 00:00:00 Completed [facility] Pneumococcal 7 Conjugate, PCV7 (Prevnar7) 2001-05-17 00:00:00 Completed [facility] Polio (IPV/OPV) 2001-05-17 00:00:00 Completed [facility] Varicella (varivax)(chicken pox) 2001-05-17 00:00:00 Completed [facility] Pneumococcal 7 Conjugate, PCV7 (Prevnar7) 2001-05-17 00:00:00 Completed [facility] Polio (IPV/OPV) 2001-05-17 00:00:00 Completed [facility] Varicella (varivax)(chicken pox) 2001-05-17 00:00:00 Completed [facility] Pneumococcal 7 Conjugate, PCV7 (Prevnar7) 2001-05-17 00:00:00 Completed [facility] Polio (IPV/OPV) 2001-05-17 00:00:00 Completed [facility] Varicella (varivax)(chicken pox) 2001-05-17 00:00:00 Completed [facility] Pneumococcal 7 Conjugate, PCV7 (Prevnar7) 2001-05-17 00:00:00 Completed [facility] Polio (IPV/OPV) 2001-05-17 00:00:00 Completed [facility] Varicella (varivax)(chicken pox) 2001-05-17 00:00:00 Completed [facility] Pneumococcal 7 Conjugate, PCV7 (Prevnar7) 2001-05-17 00:00:00 Completed [facility] Polio (IPV/OPV) 2001-05-17 00:00:00 Completed [facility] Varicella (varivax)(chicken pox) 2001-05-17 00:00:00 Completed [facility] Pneumococcal 7 Conjugate, PCV7 (Prevnar7) 2001-05-17 00:00:00 Completed [facility] Polio (IPV/OPV) 2001-05-17 00:00:00 Completed [facility] Varicella (varivax)(chicken pox) 2001-05-17 00:00:00 Completed [facility] Pneumococcal 7 Conjugate, PCV7 (Prevnar7) 2001-05-17 00:00:00 Completed [facility] Polio (IPV/OPV) 2001-05-17 00:00:00 Completed [facility] Varicella (varivax)(chicken pox) 2001-05-17 00:00:00 Completed [facility] Pneumococcal 7 Conjugate, PCV7 (Prevnar7) 2001-05-17 00:00:00 Completed [facility] Polio (IPV/OPV) 2001-05-17 00:00:00 Completed [facility] Varicella (varivax)(chicken pox) 2001-05-17 00:00:00 Completed [facility] Pneumococcal 7 Conjugate, PCV7 (Prevnar7) 2001-05-17 00:00:00 Completed [facility] Polio (IPV/OPV) 2001-05-17 00:00:00 Completed [facility] Varicella (varivax)(chicken pox) 2001-05-17 00:00:00 Completed [facility] Pneumococcal 7 Conjugate, PCV7 (Prevnar7) 2001-05-17 00:00:00 Completed [facility] Pneumococcal 7 Conjugate, PCV7 (Prevnar7) 2001-05-17 00:00:00 Completed [facility] Polio (IPV/OPV) 2001-05-17 00:00:00 Completed [facility] Varicella (varivax)(chicken pox) 2001-05-17 00:00:00 Completed [facility] Polio (IPV/OPV) 2001-05-17 00:00:00 Completed [facility] Pneumococcal 7 Conjugate, PCV7 (Prevnar7) 2001-05-17 00:00:00 Completed [facility] Polio (IPV/OPV) 2001-05-17 00:00:00 Completed [facility] Varicella (varivax)(chicken pox) 2001-05-17 00:00:00 Completed [facility] Varicella (varivax)(chicken pox) 2001-05-17 00:00:00 Completed [facility] Pneumococcal 7 Conjugate, PCV7 (Prevnar7) 2001-05-17 00:00:00 Completed [facility] Polio (IPV/OPV) 2001-05-17 00:00:00 Completed [facility] Varicella (varivax)(chicken pox) 2001-05-17 00:00:00 Completed [facility] Pneumococcal 7 Conjugate, PCV7 (Prevnar7) 2001-05-17 00:00:00 Completed [facility] Polio (IPV/OPV) 2001-05-17 00:00:00 Completed [facility] Varicella (varivax)(chicken pox) 2001-05-17 00:00:00 Completed [facility] Pneumococcal 7 Conjugate, PCV7 (Prevnar7) 2001-05-17 00:00:00 Completed [facility] Polio (IPV/OPV) 2001-05-17 00:00:00 Completed [facility] Varicella (varivax)(chicken pox) 2001-05-17 00:00:00 Completed [facility] Pneumococcal 7 Conjugate, PCV7 (Prevnar7) 2001-05-17 00:00:00 Completed [facility] Polio (IPV/OPV) 2001-05-17 00:00:00 Completed [facility] Varicella (varivax)(chicken pox) 2001-05-17 00:00:00 Completed [facility] Pneumococcal 7 Conjugate, PCV7 (Prevnar7) 2001-05-17 00:00:00 Completed [facility] Polio (IPV/OPV) 2001-05-17 00:00:00 Completed [facility] Varicella (varivax)(chicken pox) 2001-05-17 00:00:00 Completed [facility] Pneumococcal 7 Conjugate, PCV7 (Prevnar7) 2001-05-17 00:00:00 Completed [facility] Polio (IPV/OPV) 2001-05-17 00:00:00 Completed [facility] Varicella (varivax)(chicken pox) 2001-05-17 00:00:00 Completed [facility] Pneumococcal 7 Conjugate, PCV7 (Prevnar7) 2001-05-17 00:00:00 Completed [facility] Pneumococcal 7 Conjugate, PCV7 (Prevnar7) 2001-05-17 00:00:00 Completed [facility] Polio (IPV/OPV) 2001-05-17 00:00:00 Completed [facility] Varicella (varivax)(chicken pox) 2001-05-17 00:00:00 Completed [facility] Polio (IPV/OPV) 2001-05-17 00:00:00 Completed [facility] Pneumococcal 7 Conjugate, PCV7 (Prevnar7) 2001-05-17 00:00:00 Completed [facility] Polio (IPV/OPV) 2001-05-17 00:00:00 Completed [facility] Varicella (varivax)(chicken pox) 2001-05-17 00:00:00 Completed [facility] Varicella (varivax)(chicken pox) 2001-05-17 00:00:00 Completed [facility] Pneumococcal 7 Conjugate, PCV7 (Prevnar7) 2001-05-17 00:00:00 Completed [facility] Polio (IPV/OPV) 2001-05-17 00:00:00 Completed [facility] Varicella (varivax)(chicken pox) 2001-05-17 00:00:00 Completed [facility] Pneumococcal 7 Conjugate, PCV7 (Prevnar7) 2001-05-17 00:00:00 Completed [facility] Polio (IPV/OPV) 2001-05-17 00:00:00 Completed [facility] Varicella (varivax)(chicken pox) 2001-05-17 00:00:00 Completed [facility] Pneumococcal 7 Conjugate, PCV7 (Prevnar7) 2001-05-17 00:00:00 Completed [facility] Polio (IPV/OPV) 2001-05-17 00:00:00 Completed [facility] Varicella (varivax)(chicken pox) 2001-05-17 00:00:00 Completed [facility] Pneumococcal 7 Conjugate, PCV7 (Prevnar7) 2001-05-17 00:00:00 Completed [facility] Polio (IPV/OPV) 2001-05-17 00:00:00 Completed [facility] Varicella (varivax)(chicken pox) 2001-05-17 00:00:00 Completed [facility] Pneumococcal 7 Conjugate, PCV7 (Prevnar7) 2001-05-17 00:00:00 Completed [facility] Polio (IPV/OPV) 2001-05-17 00:00:00 Completed [facility] Varicella (varivax)(chicken pox) 2001-05-17 00:00:00 Completed [facility] Pneumococcal 7 Conjugate, PCV7 (Prevnar7) 2001-05-17 00:00:00 Completed [facility] Polio (IPV/OPV) 2001-05-17 00:00:00 Completed [facility] Varicella (varivax)(chicken pox) 2001-05-17 00:00:00 Completed [facility] Pneumococcal 7 Conjugate, PCV7 (Prevnar7) 2001-05-17 00:00:00 Completed [facility] Pneumococcal 7 Conjugate, PCV7 (Prevnar7) 2001-05-17 00:00:00 Completed [facility] Polio (IPV/OPV) 2001-05-17 00:00:00 Completed [facility] Varicella (varivax)(chicken pox) 2001-05-17 00:00:00 Completed [facility] Polio (IPV/OPV) 2001-05-17 00:00:00 Completed [facility] Pneumococcal 7 Conjugate, PCV7 (Prevnar7) 2001-05-17 00:00:00 Completed [facility] Polio (IPV/OPV) 2001-05-17 00:00:00 Completed [facility] Varicella (varivax)(chicken pox) 2001-05-17 00:00:00 Completed [facility] Varicella (varivax)(chicken pox) 2001-05-17 00:00:00 Completed [facility] Pneumococcal 7 Conjugate, PCV7 (Prevnar7) 2001-05-17 00:00:00 Completed [facility] Polio (IPV/OPV) 2001-05-17 00:00:00 Completed [facility] Varicella (varivax)(chicken pox) 2001-05-17 00:00:00 Completed [facility] Pneumococcal 7 Conjugate, PCV7 (Prevnar7) 2001-05-17 00:00:00 Completed [facility] Polio (IPV/OPV) 2001-05-17 00:00:00 Completed [facility] Varicella (varivax)(chicken pox) 2001-05-17 00:00:00 Completed [facility] Pneumococcal 7 Conjugate, PCV7 (Prevnar7) 2001-05-17 00:00:00 Completed [facility] Polio (IPV/OPV) 2001-05-17 00:00:00 Completed [facility] Varicella (varivax)(chicken pox) 2001-05-17 00:00:00 Completed [facility] Pneumococcal 7 Conjugate, PCV7 (Prevnar7) 2001-05-17 00:00:00 Completed [facility] Polio (IPV/OPV) 2001-05-17 00:00:00 Completed [facility] Varicella (varivax)(chicken pox) 2001-05-17 00:00:00 Completed [facility] Pneumococcal 7 Conjugate, PCV7 (Prevnar7) 2001-05-17 00:00:00 Completed [facility] Polio (IPV/OPV) 2001-05-17 00:00:00 Completed [facility] Varicella (varivax)(chicken pox) 2001-05-17 00:00:00 Completed [facility] Pneumococcal 7 Conjugate, PCV7 (Prevnar7) 2001-05-17 00:00:00 Completed [facility] Polio (IPV/OPV) 2001-05-17 00:00:00 Completed [facility] Varicella (varivax)(chicken pox) 2001-05-17 00:00:00 Completed [facility] Pneumococcal 7 Conjugate, PCV7 (Prevnar7) 2001-05-17 00:00:00 Completed [facility] Pneumococcal 7 Conjugate, PCV7 (Prevnar7) 2001-05-17 00:00:00 Completed [facility] Polio (IPV/OPV) 2001-05-17 00:00:00 Completed [facility] Varicella (varivax)(chicken pox) 2001-05-17 00:00:00 Completed [facility] Polio (IPV/OPV) 2001-05-17 00:00:00 Completed [facility] Pneumococcal 7 Conjugate, PCV7 (Prevnar7) 2001-05-17 00:00:00 Completed [facility] Varicella (varivax)(chicken pox) 2001-05-17 00:00:00 Completed [facility] Polio (IPV/OPV) 2001-05-17 00:00:00 Completed [facility] Varicella (varivax)(chicken pox) 2001-05-17 00:00:00 Completed [facility] Pneumococcal 7 Conjugate, PCV7 (Prevnar7) 2001-05-17 00:00:00 Completed [facility] Polio (IPV/OPV) 2001-05-17 00:00:00 Completed [facility] Varicella (varivax)(chicken pox) 2001-05-17 00:00:00 Completed [facility] Pneumococcal 7 Conjugate, PCV7 (Prevnar7) 2001-05-17 00:00:00 Completed [facility] Polio (IPV/OPV) 2001-05-17 00:00:00 Completed [facility] Varicella (varivax)(chicken pox) 2001-05-17 00:00:00 Completed [facility] Pneumococcal 7 Conjugate, PCV7 (Prevnar7) 2001-05-17 00:00:00 Completed [facility] Polio (IPV/OPV) 2001-05-17 00:00:00 Completed [facility] Varicella (varivax)(chicken pox) 2001-05-17 00:00:00 Completed [facility] Pneumococcal 7 Conjugate, PCV7 (Prevnar7) 2001-05-17 00:00:00 Completed [facility] Pneumococcal 7 Conjugate, PCV7 (Prevnar7) 2001-05-17 00:00:00 Completed [facility] Polio (IPV/OPV) 2001-05-17 00:00:00 Completed [facility] Varicella (varivax)(chicken pox) 2001-05-17 00:00:00 Completed [facility] Polio (IPV/OPV) 2001-05-17 00:00:00 Completed [facility] Varicella (varivax)(chicken pox) 2001-05-17 00:00:00 Completed [facility] Pneumococcal 7 Conjugate, PCV7 (Prevnar7) 2001-05-17 00:00:00 Completed [facility] Polio (IPV/OPV) 2001-05-17 00:00:00 Completed [facility] Varicella (varivax)(chicken pox) 2001-05-17 00:00:00 Completed [facility] Pneumococcal 7 Conjugate, PCV7 (Prevnar7) 2001-05-17 00:00:00 Completed [facility] Polio (IPV/OPV) 2001-05-17 00:00:00 Completed [facility] Varicella (varivax)(chicken pox) 2001-05-17 00:00:00 Completed [facility] Pneumococcal 7 Conjugate, PCV7 (Prevnar7) 2001-05-17 00:00:00 Completed [facility] Polio (IPV/OPV) 2001-05-17 00:00:00 Completed [facility] Varicella (varivax)(chicken pox) 2001-05-17 00:00:00 Completed [facility] Pneumococcal 7 Conjugate, PCV7 (Prevnar7) 2001-05-17 00:00:00 Completed [facility] Polio (IPV/OPV) 2001-05-17 00:00:00 Completed [facility] Varicella (varivax)(chicken pox) 2001-05-17 00:00:00 Completed [facility] Pneumococcal 7 Conjugate, PCV7 (Prevnar7) 2001-05-17 00:00:00 Completed [facility] Polio (IPV/OPV) 2001-05-17 00:00:00 Completed [facility] Varicella (varivax)(chicken pox) 2001-05-17 00:00:00 Completed [facility] Pneumococcal 7 Conjugate, PCV7 (Prevnar7) 2001-05-17 00:00:00 Completed [facility] Polio (IPV/OPV) 2001-05-17 00:00:00 Completed [facility] Varicella (varivax)(chicken pox) 2001-05-17 00:00:00 Completed [facility] Pneumococcal 7 Conjugate, PCV7 (Prevnar7) 2001-05-17 00:00:00 Completed [facility] Polio (IPV/OPV) 2001-05-17 00:00:00 Completed [facility] Varicella (varivax)(chicken pox) 2001-05-17 00:00:00 Completed [facility] Pneumococcal 7 Conjugate, PCV7 (Prevnar7) 2001-05-17 00:00:00 Completed [facility] Polio (IPV/OPV) 2001-05-17 00:00:00 Completed [facility] Varicella (varivax)(chicken pox) 2001-05-17 00:00:00 Completed [facility] Pneumococcal 7 Conjugate, PCV7 (Prevnar7) 2001-05-17 00:00:00 Completed [facility] Pneumococcal 7 Conjugate, PCV7 (Prevnar7) 2001-05-17 00:00:00 Completed [facility] Polio (IPV/OPV) 2001-05-17 00:00:00 Completed [facility] Varicella (varivax)(chicken pox) 2001-05-17 00:00:00 Completed [facility] Polio (IPV/OPV) 2001-05-17 00:00:00 Completed [facility] Varicella (varivax)(chicken pox) 2001-05-17 00:00:00 Completed [facility] Pneumococcal 7 Conjugate, PCV7 (Prevnar7) 2001-05-17 00:00:00 Completed [facility] Polio (IPV/OPV) 2001-05-17 00:00:00 Completed [facility] Varicella (varivax)(chicken pox) 2001-05-17 00:00:00 Completed [facility] Pneumococcal 7 Conjugate, PCV7 (Prevnar7) 2001-05-17 00:00:00 Completed [facility] Polio (IPV/OPV) 2001-05-17 00:00:00 Completed [facility] Varicella (varivax)(chicken pox) 2001-05-17 00:00:00 Completed [facility] Pneumococcal 7 Conjugate, PCV7 (Prevnar7) 2001-05-17 00:00:00 Completed [facility] Polio (IPV/OPV) 2001-05-17 00:00:00 Completed [facility] Varicella (varivax)(chicken pox) 2001-05-17 00:00:00 Completed [facility] Pneumococcal 7 Conjugate, PCV7 (Prevnar7) 2001-05-17 00:00:00 Completed [facility] Polio (IPV/OPV) 2001-05-17 00:00:00 Completed [facility] Varicella (varivax)(chicken pox) 2001-05-17 00:00:00 Completed [facility] Pneumococcal 7 Conjugate, PCV7 (Prevnar7) 2001-05-17 00:00:00 Completed [facility] Polio (IPV/OPV) 2001-05-17 00:00:00 Completed [facility] Varicella (varivax)(chicken pox) 2001-05-17 00:00:00 Completed [facility] Pneumococcal 7 Conjugate, PCV7 (Prevnar7) 2001-05-17 00:00:00 Completed [facility] Polio (IPV/OPV) 2001-05-17 00:00:00 Completed [facility] Varicella (varivax)(chicken pox) 2001-05-17 00:00:00 Completed [facility] Pneumococcal 7 Conjugate, PCV7 (Prevnar7) 2001-05-17 00:00:00 Completed [facility] Polio (IPV/OPV) 2001-05-17 00:00:00 Completed [facility] Varicella (varivax)(chicken pox) 2001-05-17 00:00:00 Completed [facility] Pneumococcal 7 Conjugate, PCV7 (Prevnar7) 2001-05-17 00:00:00 Completed [facility] Polio (IPV/OPV) 2001-05-17 00:00:00 Completed [facility] Varicella (varivax)(chicken pox) 2001-05-17 00:00:00 Completed [facility] Pneumococcal 7 Conjugate, PCV7 (Prevnar7) 2001-05-17 00:00:00 Completed [facility] Pneumococcal 7 Conjugate, PCV7 (Prevnar7) 2001-05-17 00:00:00 Completed [facility] Polio (IPV/OPV) 2001-05-17 00:00:00 Completed [facility] Varicella (varivax)(chicken pox) 2001-05-17 00:00:00 Completed [facility] Polio (IPV/OPV) 2001-05-17 00:00:00 Completed [facility] Varicella (varivax)(chicken pox) 2001-05-17 00:00:00 Completed [facility] Pneumococcal 7 Conjugate, PCV7 (Prevnar7) 2001-05-17 00:00:00 Completed [facility] Polio (IPV/OPV) 2001-05-17 00:00:00 Completed [facility] Varicella (varivax)(chicken pox) 2001-05-17 00:00:00 Completed [facility] Pneumococcal 7 Conjugate, PCV7 (Prevnar7) 2001-05-17 00:00:00 Completed [facility] Polio (IPV/OPV) 2001-05-17 00:00:00 Completed [facility] Varicella (varivax)(chicken pox) 2001-05-17 00:00:00 Completed [facility] Pneumococcal 7 Conjugate, PCV7 (Prevnar7) 2001-05-17 00:00:00 Completed [facility] Polio (IPV/OPV) 2001-05-17 00:00:00 Completed [facility] Varicella (varivax)(chicken pox) 2001-05-17 00:00:00 Completed [facility] Pneumococcal 7 Conjugate, PCV7 (Prevnar7) 2001-05-17 00:00:00 Completed [facility] Polio (IPV/OPV) 2001-05-17 00:00:00 Completed [facility] Varicella (varivax)(chicken pox) 2001-05-17 00:00:00 Completed [facility] Pneumococcal 7 Conjugate, PCV7 (Prevnar7) 2001-05-17 00:00:00 Completed [facility] Polio (IPV/OPV) 2001-05-17 00:00:00 Completed [facility] Varicella (varivax)(chicken pox) 2001-05-17 00:00:00 Completed [facility] Pneumococcal 7 Conjugate, PCV7 (Prevnar7) 2001-05-17 00:00:00 Completed [facility] Polio (IPV/OPV) 2001-05-17 00:00:00 Completed [facility] Varicella (varivax)(chicken pox) 2001-05-17 00:00:00 Completed [facility] Pneumococcal 7 Conjugate, PCV7 (Prevnar7) 2001-05-17 00:00:00 Completed [facility] Polio (IPV/OPV) 2001-05-17 00:00:00 Completed [facility] Varicella (varivax)(chicken pox) 2001-05-17 00:00:00 Completed [facility] Pneumococcal 7 Conjugate, PCV7 (Prevnar7) 2001-05-17 00:00:00 Completed [facility] Pneumococcal 7 Conjugate, PCV7 (Prevnar7) 2001-05-17 00:00:00 Completed [facility] Polio (IPV/OPV) 2001-05-17 00:00:00 Completed [facility] Varicella (varivax)(chicken pox) 2001-05-17 00:00:00 Completed [facility] Polio (IPV/OPV) 2001-05-17 00:00:00 Completed [facility] Varicella (varivax)(chicken pox) 2001-05-17 00:00:00 Completed [facility] Pneumococcal 7 Conjugate, PCV7 (Prevnar7) 2001-05-17 00:00:00 Completed [facility] Polio (IPV/OPV) 2001-05-17 00:00:00 Completed [facility] Varicella (varivax)(chicken pox) 2001-05-17 00:00:00 Completed [facility] Pneumococcal 7 Conjugate, PCV7 (Prevnar7) 2001-05-17 00:00:00 Completed [facility] Polio (IPV/OPV) 2001-05-17 00:00:00 Completed [facility] Varicella (varivax)(chicken pox) 2001-05-17 00:00:00 Completed [facility] Pneumococcal 7 Conjugate, PCV7 (Prevnar7) 2001-05-17 00:00:00 Completed [facility] Polio (IPV/OPV) 2001-05-17 00:00:00 Completed [facility] Varicella (varivax)(chicken pox) 2001-05-17 00:00:00 Completed [facility] Pneumococcal 7 Conjugate, PCV7 (Prevnar7) 2001-05-17 00:00:00 Completed [facility] Polio (IPV/OPV) 2001-05-17 00:00:00 Completed [facility] Varicella (varivax)(chicken pox) 2001-05-17 00:00:00 Completed [facility] Pneumococcal 7 Conjugate, PCV7 (Prevnar7) 2001-05-17 00:00:00 Completed [facility] Polio (IPV/OPV) 2001-05-17 00:00:00 Completed [facility] Varicella (varivax)(chicken pox) 2001-05-17 00:00:00 Completed [facility] Pneumococcal 7 Conjugate, PCV7 (Prevnar7) 2001-05-17 00:00:00 Completed [facility] Polio (IPV/OPV) 2001-05-17 00:00:00 Completed [facility] Varicella (varivax)(chicken pox) 2001-05-17 00:00:00 Completed [facility] Pneumococcal 7 Conjugate, PCV7 (Prevnar7) 2001-05-17 00:00:00 Completed [facility] Polio (IPV/OPV) 2001-05-17 00:00:00 Completed [facility] Varicella (varivax)(chicken pox) 2001-05-17 00:00:00 Completed [facility] Pneumococcal 7 Conjugate, PCV7 (Prevnar7) 2001-05-17 00:00:00 Completed [facility] Pneumococcal 7 Conjugate, PCV7 (Prevnar7) 2001-05-17 00:00:00 Completed [facility] Polio (IPV/OPV) 2001-05-17 00:00:00 Completed [facility] Varicella (varivax)(chicken pox) 2001-05-17 00:00:00 Completed [facility] Polio (IPV/OPV) 2001-05-17 00:00:00 Completed [facility] Varicella (varivax)(chicken pox) 2001-05-17 00:00:00 Completed [facility] Pneumococcal 7 Conjugate, PCV7 (Prevnar7) 2001-05-17 00:00:00 Completed [facility] Polio (IPV/OPV) 2001-05-17 00:00:00 Completed [facility] Varicella (varivax)(chicken pox) 2001-05-17 00:00:00 Completed [facility] Pneumococcal 7 Conjugate, PCV7 (Prevnar7) 2001-05-17 00:00:00 Completed [facility] Polio (IPV/OPV) 2001-05-17 00:00:00 Completed [facility] Varicella (varivax)(chicken pox) 2001-05-17 00:00:00 Completed [facility] Pneumococcal 7 Conjugate, PCV7 (Prevnar7) 2001-05-17 00:00:00 Completed [facility] Polio (IPV/OPV) 2001-05-17 00:00:00 Completed [facility] Varicella (varivax)(chicken pox) 2001-05-17 00:00:00 Completed [facility] Pneumococcal 7 Conjugate, PCV7 (Prevnar7) 2001-05-17 00:00:00 Completed [facility] Polio (IPV/OPV) 2001-05-17 00:00:00 Completed [facility] Varicella (varivax)(chicken pox) 2001-05-17 00:00:00 Completed [facility] Pneumococcal 7 Conjugate, PCV7 (Prevnar7) 2001-05-17 00:00:00 Completed [facility] Polio (IPV/OPV) 2001-05-17 00:00:00 Completed [facility] Varicella (varivax)(chicken pox) 2001-05-17 00:00:00 Completed [facility] Pneumococcal 7 Conjugate, PCV7 (Prevnar7) 2001-05-17 00:00:00 Completed [facility] Polio (IPV/OPV) 2001-05-17 00:00:00 [facility] [facility] pox) 2001-05-17 00:00:00 Completed [facility] Pneumococcal 7 Conjugate, PCV7 (Prevnar7) 2001-05-17 00:00:00 Completed [facility] Polio (IPV/OPV) 2001-05-17 00:00:00 Completed [facility] Varicella (varivax)(chicken pox) 2001-05-17 00:00:00 Completed [facility] Pneumococcal 7 Conjugate, PCV7 (Prevnar7) 2001-05-17 00:00:00 Completed [facility] Polio (IPV/OPV) 2001-05-17 00:00:00 Completed [facility] Pneumococcal 7 Conjugate, PCV7 (Prevnar7) 2001-05-17 00:00:00 Completed [facility] Polio (IPV/OPV) 2001-05-17 00:00:00 Completed [facility] Varicella (varivax)(chicken pox) 2001-05-17 00:00:00 Completed [facility] Varicella (varivax)(chicken pox) 2001-05-17 00:00:00 Completed [facility] Pneumococcal 7 Conjugate, PCV7 (Prevnar7) 2001-05-17 00:00:00 Completed [facility] Polio (IPV/OPV) 2001-05-17 00:00:00 Completed [facility] Varicella (varivax)(chicken pox) 2001-05-17 00:00:00 Completed [facility] Pneumococcal 7 Conjugate, PCV7 (Prevnar7) 2001-05-17 00:00:00 Completed [facility] Polio (IPV/OPV) 2001-05-17 00:00:00 Completed [facility] Varicella (varivax)(chicken pox) 2001-05-17 00:00:00 Completed [facility] Pneumococcal 7 Conjugate, PCV7 (Prevnar7) 2001-05-17 00:00:00 Completed [facility] Polio (IPV/OPV) 2001-05-17 00:00:00 Completed [facility] Varicella (varivax)(chicken pox) 2001-05-17 00:00:00 Completed [facility] Pneumococcal 7 Conjugate, PCV7 (Prevnar7) 2001-05-17 00:00:00 Completed [facility] Polio (IPV/OPV) 2001-05-17 00:00:00 Completed [facility] Varicella (varivax)(chicken pox) 2001-05-17 00:00:00 Completed [facility] Pneumococcal 7 Conjugate, PCV7 (Prevnar7) 2001-05-17 00:00:00 Completed [facility] Polio (IPV/OPV) 2001-05-17 00:00:00 Completed [facility] Varicella (varivax)(chicken pox) 2001-05-17 00:00:00 Completed [facility] Pneumococcal 7 Conjugate, PCV7 (Prevnar7) 2001-05-17 00:00:00 Completed [facility] Polio (IPV/OPV) 2001-05-17 00:00:00 Completed [facility] Varicella (varivax)(chicken pox) 2001-05-17 00:00:00 Completed [facility] Pneumococcal 7 Conjugate, PCV7 (Prevnar7) 2001-05-17 00:00:00 Completed [facility] Polio (IPV/OPV) 2001-05-17 00:00:00 Completed [facility] Varicella (varivax)(chicken pox) 2001-05-17 00:00:00 Completed [facility] Pneumococcal 7 Conjugate, PCV7 (Prevnar7) 2001-05-17 00:00:00 Completed [facility] Pneumococcal 7 Conjugate, PCV7 (Prevnar7) 2001-05-17 00:00:00 Completed [facility] Polio (IPV/OPV) 2001-05-17 00:00:00 Completed [facility] Varicella (varivax)(chicken pox) 2001-05-17 00:00:00 Completed [facility] Polio (IPV/OPV) 2001-05-17 00:00:00 Completed [facility] Pneumococcal 7 Conjugate, PCV7 (Prevnar7) 2001-05-17 00:00:00 Completed [facility] Varicella (varivax)(chicken pox) 2001-05-17 00:00:00 Completed [facility] Polio (IPV/OPV) 2001-05-17 00:00:00 Completed [facility] Varicella (varivax)(chicken pox) 2001-05-17 00:00:00 Completed [facility] Pneumococcal 7 Conjugate, PCV7 (Prevnar7) 2001-05-17 00:00:00 Completed [facility] Polio (IPV/OPV) 2001-05-17 00:00:00 Completed [facility] Varicella (varivax)(chicken pox) 2001-05-17 00:00:00 Completed [facility] Pneumococcal 7 Conjugate, PCV7 (Prevnar7) 2001-05-17 00:00:00 Completed [facility] Polio (IPV/OPV) 2001-05-17 00:00:00 Completed [facility] Varicella (varivax)(chicken pox) 2001-05-17 00:00:00 Completed [facility] Pneumococcal 7 Conjugate, PCV7 (Prevnar7) 2001-05-17 00:00:00 Completed [facility] Polio (IPV/OPV) 2001-05-17 00:00:00 Completed [facility] Varicella (varivax)(chicken pox) 2001-05-17 00:00:00 Completed [facility] Pneumococcal 7 Conjugate, PCV7 (Prevnar7) 2001-05-17 00:00:00 Completed [facility] Polio (IPV/OPV) 2001-05-17 00:00:00 Completed [facility] Varicella (varivax)(chicken pox) 2001-05-17 00:00:00 Completed [facility] Pneumococcal 7 Conjugate, PCV7 (Prevnar7) 2001-05-17 00:00:00 Completed [facility] Polio (IPV/OPV) 2001-05-17 00:00:00 Completed [facility] Varicella (varivax)(chicken pox) 2001-05-17 00:00:00 Completed [facility] Pneumococcal 7 Conjugate, PCV7 (Prevnar7) 2001-05-17 00:00:00 Completed [facility] Polio (IPV/OPV) 2001-05-17 00:00:00 Completed [facility] Varicella (varivax)(chicken pox) 2001-05-17 00:00:00 Completed [facility] Pneumococcal 7 Conjugate, PCV7 (Prevnar7) 2001-05-17 00:00:00 Completed [facility] Polio (IPV/OPV) 2001-05-17 00:00:00 Completed [facility] Varicella (varivax)(chicken pox) 2001-05-17 00:00:00 Completed [facility] Pneumococcal 7 Conjugate, PCV7 (Prevnar7) 2001-05-17 00:00:00 Completed [facility] Pneumococcal 7 Conjugate, PCV7 (Prevnar7) 2001-05-17 00:00:00 Completed [facility] Polio (IPV/OPV) 2001-05-17 00:00:00 Completed [facility] Varicella (varivax)(chicken pox) 2001-05-17 00:00:00 Completed [facility] Polio (IPV/OPV) 2001-05-17 00:00:00 Completed [facility] Varicella (varivax)(chicken pox) 2001-05-17 00:00:00 Completed [facility] Pneumococcal 7 Conjugate, PCV7 (Prevnar7) 2001-05-17 00:00:00 Completed [facility] Polio (IPV/OPV) 2001-05-17 00:00:00 Completed [facility] Varicella (varivax)(chicken pox) 2001-05-17 00:00:00 Completed [facility] Pneumococcal 7 Conjugate, PCV7 (Prevnar7) 2001-05-17 00:00:00 Completed [facility] Polio (IPV/OPV) 2001-05-17 00:00:00 Completed [facility] Varicella (varivax)(chicken pox) 2001-05-17 00:00:00 Completed [facility] Pneumococcal 7 Conjugate, PCV7 (Prevnar7) 2001-05-17 00:00:00 Completed [facility] Pneumococcal 7 Conjugate, PCV7 (Prevnar7) 2001-05-17 00:00:00 Completed Polio (IPV/OPV) 2001-05-17 00:00:00 Completed Varicella (varivax)(chicken pox) 2001-05-17 00:00:00 Completed Polio (IPV/OPV) 2001-05-17 00:00:00 Completed [facility] Varicella (varivax)(chicken pox) 2001-05-17 00:00:00 Completed [facility] Pneumococcal 7 Conjugate, PCV7 (Prevnar7) 2001-05-17 00:00:00 Completed [facility] Polio (IPV/OPV) 2001-05-17 00:00:00 Completed [facility] Varicella (varivax)(chicken pox) 2001-05-17 00:00:00 Completed [facility] Pneumococcal 7 Conjugate, PCV7 (Prevnar7) 2001-05-17 00:00:00 Completed [facility] Polio (IPV/OPV) 2001-05-17 00:00:00 Completed [facility] Varicella (varivax)(chicken pox) 2001-05-17 00:00:00 Completed [facility] Pneumococcal 7 Conjugate, PCV7 (Prevnar7) 2001-05-17 00:00:00 Completed [facility] Polio (IPV/OPV) 2001-05-17 00:00:00 Completed [facility] Varicella (varivax)(chicken pox) 2001-05-17 00:00:00 Completed [facility] Pneumococcal 7 Conjugate, PCV7 (Prevnar7) 2001-05-17 00:00:00 Completed [facility] Pneumococcal 7 Conjugate, PCV7 (Prevnar7) 2001-04-06 00:00:00 Completed [facility] Pneumococcal 7 Conjugate, PCV7 (Prevnar7) 2001-04-06 00:00:00 Completed [facility] Pneumococcal 7 Conjugate, PCV7 (Prevnar7) 2001-04-06 00:00:00 Completed [facility] Pneumococcal 7 Conjugate, PCV7 (Prevnar7) 2001-04-06 00:00:00 Completed [facility] Pneumococcal 7 Conjugate, PCV7 (Prevnar7) 2001-04-06 00:00:00 Completed [facility] Pneumococcal 7 Conjugate, PCV7 (Prevnar7) 2001-04-06 00:00:00 Completed [facility] Pneumococcal 7 Conjugate, PCV7 (Prevnar7) 2001-04-06 00:00:00 Completed [facility] Pneumococcal 7 Conjugate, PCV7 (Prevnar7) 2001-04-06 00:00:00 Completed [facility] Pneumococcal 7 Conjugate, PCV7 (Prevnar7) 2001-04-06 00:00:00 Completed [facility] Pneumococcal 7 Conjugate, PCV7 (Prevnar7) 2001-04-06 00:00:00 Completed [facility] Pneumococcal 7 Conjugate, PCV7 (Prevnar7) 2001-04-06 00:00:00 Completed [facility] Pneumococcal 7 Conjugate, PCV7 (Prevnar7) 2001-04-06 00:00:00 Completed [facility] Pneumococcal 7 Conjugate, PCV7 (Prevnar7) 2001-04-06 00:00:00 Completed [facility] Pneumococcal 7 Conjugate, PCV7 (Prevnar7) 2001-04-06 00:00:00 Completed [facility] Pneumococcal 7 Conjugate, PCV7 (Prevnar7) 2001-04-06 00:00:00 Completed [facility] Pneumococcal 7 Conjugate, PCV7 (Prevnar7) 2001-04-06 00:00:00 Completed [facility] Pneumococcal 7 Conjugate, PCV7 (Prevnar7) 2001-04-06 00:00:00 Completed [facility] Pneumococcal 7 Conjugate, PCV7 (Prevnar7) 2001-04-06 00:00:00 Completed [facility] Pneumococcal 7 Conjugate, PCV7 (Prevnar7) 2001-04-06 00:00:00 Completed [facility] Pneumococcal 7 Conjugate, PCV7 (Prevnar7) 2001-04-06 00:00:00 Completed [facility] Pneumococcal 7 Conjugate, PCV7 (Prevnar7) 2001-04-06 00:00:00 Completed [facility] Pneumococcal 7 Conjugate, PCV7 (Prevnar7) 2001-04-06 00:00:00 Completed [facility] Pneumococcal 7 Conjugate, PCV7 (Prevnar7) 2001-04-06 00:00:00 Completed [facility] Pneumococcal 7 Conjugate, PCV7 (Prevnar7) 2001-04-06 00:00:00 Completed [facility] Pneumococcal 7 Conjugate, PCV7 (Prevnar7) 2001-04-06 00:00:00 Completed [facility] Pneumococcal 7 Conjugate, PCV7 (Prevnar7) 2001-04-06 00:00:00 Completed [facility] Pneumococcal 7 Conjugate, PCV7 (Prevnar7) 2001-04-06 00:00:00 Completed [facility] Pneumococcal 7 Conjugate, PCV7 (Prevnar7) 2001-04-06 00:00:00 Completed [facility] Pneumococcal 7 Conjugate, PCV7 (Prevnar7) 2001-04-06 00:00:00 Completed [facility] Pneumococcal 7 Conjugate, PCV7 (Prevnar7) 2001-04-06 00:00:00 Completed [facility] Pneumococcal 7 Conjugate, PCV7 (Prevnar7) 2001-04-06 00:00:00 Completed [facility] Pneumococcal 7 Conjugate, PCV7 (Prevnar7) 2001-04-06 00:00:00 Completed [facility] Pneumococcal 7 Conjugate, PCV7 (Prevnar7) 2001-04-06 00:00:00 Completed [facility] Pneumococcal 7 Conjugate, PCV7 (Prevnar7) 2001-04-06 00:00:00 Completed [facility] Pneumococcal 7 Conjugate, PCV7 (Prevnar7) 2001-04-06 00:00:00 Completed [facility] Pneumococcal 7 Conjugate, PCV7 (Prevnar7) 2001-04-06 00:00:00 Completed [facility] Pneumococcal 7 Conjugate, PCV7 (Prevnar7) 2001-04-06 00:00:00 Completed [facility] Pneumococcal 7 Conjugate, PCV7 (Prevnar7) 2001-04-06 00:00:00 Completed [facility] Pneumococcal 7 Conjugate, PCV7 (Prevnar7) 2001-04-06 00:00:00 Completed [facility] Pneumococcal 7 Conjugate, PCV7 (Prevnar7) 2001-04-06 00:00:00 Completed [facility] Pneumococcal 7 Conjugate, PCV7 (Prevnar7) 2001-04-06 00:00:00 Completed [facility] Pneumococcal 7 Conjugate, PCV7 (Prevnar7) 2001-04-06 00:00:00 Completed [facility] Pneumococcal 7 Conjugate, PCV7 (Prevnar7) 2001-04-06 00:00:00 Completed [facility] Pneumococcal 7 Conjugate, PCV7 (Prevnar7) 2001-04-06 00:00:00 Completed [facility] Pneumococcal 7 Conjugate, PCV7 (Prevnar7) 2001-04-06 00:00:00 Completed [facility] Pneumococcal 7 Conjugate, PCV7 (Prevnar7) 2001-04-06 00:00:00 Completed [facility] Pneumococcal 7 Conjugate, PCV7 (Prevnar7) 2001-04-06 00:00:00 Completed [facility] Pneumococcal 7 Conjugate, PCV7 (Prevnar7) 2001-04-06 00:00:00 Completed [facility] Pneumococcal 7 Conjugate, PCV7 (Prevnar7) 2001-04-06 00:00:00 Completed [facility] Pneumococcal 7 Conjugate, PCV7 (Prevnar7) 2001-04-06 00:00:00 Completed [facility] Pneumococcal 7 Conjugate, PCV7 (Prevnar7) 2001-04-06 00:00:00 Completed [facility] Pneumococcal 7 Conjugate, PCV7 (Prevnar7) 2001-04-06 00:00:00 Completed [facility] Pneumococcal 7 Conjugate, PCV7 (Prevnar7) 2001-04-06 00:00:00 Completed [facility] Pneumococcal 7 Conjugate, PCV7 (Prevnar7) 2001-04-06 00:00:00 Completed [facility] Pneumococcal 7 Conjugate, PCV7 (Prevnar7) 2001-04-06 00:00:00 Completed [facility] Pneumococcal 7 Conjugate, PCV7 (Prevnar7) 2001-04-06 00:00:00 Completed [facility] Pneumococcal 7 Conjugate, PCV7 (Prevnar7) 2001-04-06 00:00:00 Completed [facility] Pneumococcal 7 Conjugate, PCV7 (Prevnar7) 2001-04-06 00:00:00 Completed [facility] Pneumococcal 7 Conjugate, PCV7 (Prevnar7) 2001-04-06 00:00:00 Completed [facility] Pneumococcal 7 Conjugate, PCV7 (Prevnar7) 2001-04-06 00:00:00 Completed [facility] Pneumococcal 7 Conjugate, PCV7 (Prevnar7) 2001-04-06 00:00:00 Completed [facility] Pneumococcal 7 Conjugate, PCV7 (Prevnar7) 2001-04-06 00:00:00 Completed [facility] Pneumococcal 7 Conjugate, PCV7 (Prevnar7) 2001-04-06 00:00:00 Completed [facility] Pneumococcal 7 Conjugate, PCV7 (Prevnar7) 2001-04-06 00:00:00 Completed [facility] Pneumococcal 7 Conjugate, PCV7 (Prevnar7) 2001-04-06 00:00:00 Completed [facility] Pneumococcal 7 Conjugate, PCV7 (Prevnar7) 2001-04-06 00:00:00 Completed [facility] Pneumococcal 7 Conjugate, PCV7 (Prevnar7) 2001-04-06 00:00:00 Completed [facility] Pneumococcal 7 Conjugate, PCV7 (Prevnar7) 2001-04-06 00:00:00 Completed [facility] Pneumococcal 7 Conjugate, PCV7 (Prevnar7) 2001-04-06 00:00:00 Completed [facility] Pneumococcal 7 Conjugate, PCV7 (Prevnar7) 2001-04-06 00:00:00 Completed [facility] Pneumococcal 7 Conjugate, PCV7 (Prevnar7) 2001-04-06 00:00:00 Completed [facility] Pneumococcal 7 Conjugate, PCV7 (Prevnar7) 2001-04-06 00:00:00 Completed [facility] Pneumococcal 7 Conjugate, PCV7 (Prevnar7) 2001-04-06 00:00:00 Completed [facility] Pneumococcal 7 Conjugate, PCV7 (Prevnar7) 2001-04-06 00:00:00 Completed [facility] Pneumococcal 7 Conjugate, PCV7 (Prevnar7) 2001-04-06 00:00:00 Completed [facility] Pneumococcal 7 Conjugate, PCV7 (Prevnar7) 2001-04-06 00:00:00 Completed [facility] Pneumococcal 7 Conjugate, PCV7 (Prevnar7) 2001-04-06 00:00:00 Completed [facility] Pneumococcal 7 Conjugate, PCV7 (Prevnar7) 2001-04-06 00:00:00 Completed [facility] Pneumococcal 7 Conjugate, PCV7 (Prevnar7) 2001-04-06 00:00:00 Completed [facility] Pneumococcal 7 Conjugate, PCV7 (Prevnar7) 2001-04-06 00:00:00 Completed [facility] Pneumococcal 7 Conjugate, PCV7 (Prevnar7) 2001-04-06 00:00:00 Completed [facility] Pneumococcal 7 Conjugate, PCV7 (Prevnar7) 2001-04-06 00:00:00 Completed [facility] Pneumococcal 7 Conjugate, PCV7 (Prevnar7) 2001-04-06 00:00:00 Completed [facility] Pneumococcal 7 Conjugate, PCV7 (Prevnar7) 2001-04-06 00:00:00 Completed [facility] Pneumococcal 7 Conjugate, PCV7 (Prevnar7) 2001-04-06 00:00:00 Completed [facility] Pneumococcal 7 Conjugate, PCV7 (Prevnar7) 2001-04-06 00:00:00 Completed [facility] Pneumococcal 7 Conjugate, PCV7 (Prevnar7) 2001-04-06 00:00:00 Completed [facility] Pneumococcal 7 Conjugate, PCV7 (Prevnar7) 2001-04-06 00:00:00 Completed [facility] Pneumococcal 7 Conjugate, PCV7 (Prevnar7) 2001-04-06 00:00:00 Completed [facility] Pneumococcal 7 Conjugate, PCV7 (Prevnar7) 2001-04-06 00:00:00 Completed [facility] Pneumococcal 7 Conjugate, PCV7 (Prevnar7) 2001-04-06 00:00:00 Completed [facility] Pneumococcal 7 Conjugate, PCV7 (Prevnar7) 2001-04-06 00:00:00 Completed [facility] Pneumococcal 7 Conjugate, PCV7 (Prevnar7) 2001-04-06 00:00:00 Completed [facility] Pneumococcal 7 Conjugate, PCV7 (Prevnar7) 2001-04-06 00:00:00 Completed [facility] Pneumococcal 7 Conjugate, PCV7 (Prevnar7) 2001-04-06 00:00:00 Completed [facility] Pneumococcal 7 Conjugate, PCV7 (Prevnar7) 2001-04-06 00:00:00 Completed [facility] Pneumococcal 7 Conjugate, PCV7 (Prevnar7) 2001-04-06 00:00:00 Completed [facility] Pneumococcal 7 Conjugate, PCV7 (Prevnar7) 2001-04-06 00:00:00 Completed [facility] Pneumococcal 7 Conjugate, PCV7 (Prevnar7) 2001-04-06 00:00:00 Completed [facility] Pneumococcal 7 Conjugate, PCV7 (Prevnar7) 2001-04-06 00:00:00 Completed [facility] Pneumococcal 7 Conjugate, PCV7 (Prevnar7) 2001-04-06 00:00:00 Completed [facility] Pneumococcal 7 Conjugate, PCV7 (Prevnar7) 2001-04-06 00:00:00 Completed [facility] Pneumococcal 7 Conjugate, PCV7 (Prevnar7) 2001-04-06 00:00:00 Completed [facility] Pneumococcal 7 Conjugate, PCV7 (Prevnar7) 2001-04-06 00:00:00 Completed [facility] Pneumococcal 7 Conjugate, PCV7 (Prevnar7) 2001-04-06 00:00:00 Completed [facility] Pneumococcal 7 Conjugate, PCV7 (Prevnar7) 2001-04-06 00:00:00 Completed [facility] Pneumococcal 7 Conjugate, PCV7 (Prevnar7) 2001-04-06 00:00:00 Completed [facility] Pneumococcal 7 Conjugate, PCV7 (Prevnar7) 2001-04-06 00:00:00 Completed [facility] Pneumococcal 7 Conjugate, PCV7 (Prevnar7) 2001-04-06 00:00:00 Completed [facility] Pneumococcal 7 Conjugate, PCV7 (Prevnar7) 2001-04-06 00:00:00 Completed [facility] Pneumococcal 7 Conjugate, PCV7 (Prevnar7) 2001-04-06 00:00:00 Completed [facility] Pneumococcal 7 Conjugate, PCV7 (Prevnar7) 2001-04-06 00:00:00 Completed [facility] Pneumococcal 7 Conjugate, PCV7 (Prevnar7) 2001-04-06 00:00:00 Completed [facility] Pneumococcal 7 Conjugate, PCV7 (Prevnar7) 2001-04-06 00:00:00 Completed [facility] Pneumococcal 7 Conjugate, PCV7 (Prevnar7) 2001-04-06 00:00:00 Completed [facility] Pneumococcal 7 Conjugate, PCV7 (Prevnar7) 2001-04-06 00:00:00 Completed [facility] Pneumococcal 7 Conjugate, PCV7 (Prevnar7) 2001-04-06 00:00:00 Completed [facility] Pneumococcal 7 Conjugate, PCV7 (Prevnar7) 2001-04-06 00:00:00 Completed [facility] Pneumococcal 7 Conjugate, PCV7 (Prevnar7) 2001-04-06 00:00:00 Completed Pneumococcal 7 Conjugate, PCV7 (Prevnar7) 2001-04-06 00:00:00 Completed [facility] Pneumococcal 7 Conjugate, PCV7 (Prevnar7) 2001-04-06 00:00:00 Completed [facility] Pneumococcal 7 Conjugate, PCV7 (Prevnar7) 2001-04-06 00:00:00 Completed [facility] Pneumococcal 7 Conjugate, PCV7 (Prevnar7) 2001-04-06 00:00:00 Completed [facility] DTAP 2000 00:00:00 Completed [facility] HIB 4 Dose Schedule 2000 00:00:00 Completed [facility] Hep B, Adol or Pedi Dosage 2000 00:00:00 Completed [facility] Hep B, Adol or Pedi Dosage 2000 00:00:00 Completed [facility] DTAP 2000 00:00:00 Completed [facility] HIB 4 Dose Schedule 2000 00:00:00 Completed [facility] Hep B, Adol or Pedi Dosage 2000 00:00:00 Completed [facility] DTAP 2000 00:00:00 Completed [facility] HIB 4 Dose Schedule 2000 00:00:00 Completed [facility] Hep B, Adol or Pedi Dosage 2000 00:00:00 Completed [facility] DTAP 2000 00:00:00 Completed [facility] HIB 4 Dose Schedule 2000 00:00:00 Completed [facility] Hep B, Adol or Pedi Dosage 2000 00:00:00 Completed [facility] DTAP 2000 00:00:00 Completed [facility] HIB 4 Dose Schedule 2000 00:00:00 Completed [facility] Hep B, Adol or Pedi Dosage 2000 00:00:00 Completed [facility] DTAP 2000 00:00:00 Completed [facility] HIB 4 Dose Schedule 2000 00:00:00 Completed [facility] Hep B, Adol or Pedi Dosage 2000 00:00:00 Completed [facility] DTAP 2000 00:00:00 Completed [facility] HIB 4 Dose Schedule 2000 00:00:00 Completed [facility] Hep B, Adol or Pedi Dosage 2000 00:00:00 Completed [facility] DTAP 2000 00:00:00 Completed [facility] HIB 4 Dose Schedule 2000 00:00:00 Completed [facility] Hep B, Adol or Pedi Dosage 2000 00:00:00 Completed [facility] DTAP 2000 00:00:00 Completed [facility] HIB 4 Dose Schedule 2000 00:00:00 Completed [facility] Hep B, Adol or Pedi Dosage 2000 00:00:00 Completed [facility] DTAP 2000 00:00:00 Completed [facility] DTAP 2000 00:00:00 Completed [facility] HIB 4 Dose Schedule 2000 00:00:00 Completed [facility] Hep B, Adol or Pedi Dosage 2000 00:00:00 Completed [facility] DTAP 2000 00:00:00 Completed [facility] HIB 4 Dose Schedule 2000 00:00:00 Completed [facility] HIB 4 Dose Schedule 2000 00:00:00 Completed [facility] Hep B, Adol or Pedi Dosage 2000 00:00:00 Completed [facility] DTAP 2000 00:00:00 Completed [facility] HIB 4 Dose Schedule 2000 00:00:00 Completed [facility] Hep B, Adol or Pedi Dosage 2000 00:00:00 Completed [facility] Hep B, Adol or Pedi Dosage 2000 00:00:00 Completed [facility] DTAP 2000 00:00:00 Completed [facility] HIB 4 Dose Schedule 2000 00:00:00 Completed [facility] Hep B, Adol or Pedi Dosage 2000 00:00:00 Completed [facility] DTAP 2000 00:00:00 Completed [facility] HIB 4 Dose Schedule 2000 00:00:00 Completed [facility] Hep B, Adol or Pedi Dosage 2000 00:00:00 Completed [facility] DTAP 2000 00:00:00 Completed [facility] HIB 4 Dose Schedule 2000 00:00:00 Completed [facility] Hep B, Adol or Pedi Dosage 2000 00:00:00 Completed [facility] DTAP 2000 00:00:00 Completed [facility] HIB 4 Dose Schedule 2000 00:00:00 Completed [facility] Hep B, Adol or Pedi Dosage 2000 00:00:00 Completed [facility] DTAP 2000 00:00:00 Completed [facility] HIB 4 Dose Schedule 2000 00:00:00 Completed [facility] Hep B, Adol or Pedi Dosage 2000 00:00:00 Completed [facility] DTAP 2000 00:00:00 Completed [facility] HIB 4 Dose Schedule 2000 00:00:00 Completed [facility] Hep B, Adol or Pedi Dosage 2000 00:00:00 Completed [facility] DTAP 2000 00:00:00 Completed [facility] DTAP 2000 00:00:00 Completed [facility] HIB 4 Dose Schedule 2000 00:00:00 Completed [facility] Hep B, Adol or Pedi Dosage 2000 00:00:00 Completed [facility] HIB 4 Dose Schedule 2000 00:00:00 Completed [facility] DTAP 2000 00:00:00 Completed [facility] HIB 4 Dose Schedule 2000 00:00:00 Completed [facility] Hep B, Adol or Pedi Dosage 2000 00:00:00 Completed [facility] Hep B, Adol or Pedi Dosage 2000 00:00:00 Completed [facility] DTAP 2000 00:00:00 Completed [facility] HIB 4 Dose Schedule 2000 00:00:00 Completed [facility] Hep B, Adol or Pedi Dosage 2000 00:00:00 Completed [facility] DTAP 2000 00:00:00 Completed [facility] HIB 4 Dose Schedule 2000 00:00:00 Completed [facility] Hep B, Adol or Pedi Dosage 2000 00:00:00 Completed [facility] DTAP 2000 00:00:00 Completed [facility] HIB 4 Dose Schedule 2000 00:00:00 Completed [facility] Hep B, Adol or Pedi Dosage 2000 00:00:00 Completed [facility] DTAP 2000 00:00:00 Completed [facility] HIB 4 Dose Schedule 2000 00:00:00 Completed [facility] Hep B, Adol or Pedi Dosage 2000 00:00:00 Completed [facility] DTAP 2000 00:00:00 Completed [facility] HIB 4 Dose Schedule 2000 00:00:00 Completed [facility] Hep B, Adol or Pedi Dosage 2000 00:00:00 Completed [facility] DTAP 2000 00:00:00 Completed [facility] HIB 4 Dose Schedule 2000 00:00:00 Completed [facility] Hep B, Adol or Pedi Dosage 2000 00:00:00 Completed [facility] DTAP 2000 00:00:00 Completed [facility] DTAP 2000 00:00:00 Completed [facility] HIB 4 Dose Schedule 2000 00:00:00 Completed [facility] Hep B, Adol or Pedi Dosage 2000 00:00:00 Completed [facility] HIB 4 Dose Schedule 2000 00:00:00 Completed [facility] DTAP 2000 00:00:00 Completed [facility] HIB 4 Dose Schedule 2000 00:00:00 Completed [facility] Hep B, Adol or Pedi Dosage 2000 00:00:00 Completed [facility] DTAP 2000 00:00:00 Completed [facility] Hep B, Adol or Pedi Dosage 2000 00:00:00 Completed [facility] HIB 4 Dose Schedule 2000 00:00:00 Completed [facility] Hep B, Adol or Pedi Dosage 2000 00:00:00 Completed [facility] DTAP 2000 00:00:00 Completed [facility] HIB 4 Dose Schedule 2000 00:00:00 Completed [facility] Hep B, Adol or Pedi Dosage 2000 00:00:00 Completed [facility] DTAP 2000 00:00:00 Completed [facility] HIB 4 Dose Schedule 2000 00:00:00 Completed [facility] Hep B, Adol or Pedi Dosage 2000 00:00:00 Completed [facility] DTAP 2000 00:00:00 Completed [facility] HIB 4 Dose Schedule 2000 00:00:00 Completed [facility] Hep B, Adol or Pedi Dosage 2000 00:00:00 Completed [facility] DTAP 2000 00:00:00 Completed [facility] HIB 4 Dose Schedule 2000 00:00:00 Completed [facility] Hep B, Adol or Pedi Dosage 2000 00:00:00 Completed [facility] DTAP 2000 00:00:00 Completed [facility] HIB 4 Dose Schedule 2000 00:00:00 Completed [facility] Hep B, Adol or Pedi Dosage 2000 00:00:00 Completed [facility] DTAP 2000 00:00:00 Completed [facility] HIB 4 Dose Schedule 2000 00:00:00 Completed [facility] Hep B, Adol or Pedi Dosage 2000 00:00:00 Completed [facility] DTAP 2000 00:00:00 Completed [facility] DTAP 2000 00:00:00 Completed [facility] HIB 4 Dose Schedule 2000 00:00:00 Completed [facility] Hep B, Adol or Pedi Dosage 2000 00:00:00 Completed [facility] HIB 4 Dose Schedule 2000 00:00:00 Completed [facility] DTAP 2000 00:00:00 Completed [facility] HIB 4 Dose Schedule 2000 00:00:00 Completed [facility] Hep B, Adol or Pedi Dosage 2000 00:00:00 Completed [facility] Hep B, Adol or Pedi Dosage 2000 00:00:00 Completed [facility] DTAP 2000 00:00:00 Completed [facility] HIB 4 Dose Schedule 2000 00:00:00 Completed [facility] Hep B, Adol or Pedi Dosage 2000 00:00:00 Completed [facility] DTAP 2000 00:00:00 Completed [facility] HIB 4 Dose Schedule 2000 00:00:00 Completed [facility] Hep B, Adol or Pedi Dosage 2000 00:00:00 Completed [facility] DTAP 2000 00:00:00 Completed [facility] HIB 4 Dose Schedule 2000 00:00:00 Completed [facility] DTAP 2000 00:00:00 Completed [facility] HIB 4 Dose Schedule 2000 00:00:00 Completed [facility] Hep B, Adol or Pedi Dosage 2000 00:00:00 Completed [facility] DTAP 2000 00:00:00 Completed [facility] HIB 4 Dose Schedule 2000 00:00:00 Completed [facility] DTAP 2000 00:00:00 Completed [facility] HIB 4 Dose Schedule 2000 00:00:00 Completed [facility] Hep B, Adol or Pedi Dosage 2000 00:00:00 Completed [facility] Hep B, Adol or Pedi Dosage 2000 00:00:00 Completed [facility] DTAP 2000 00:00:00 Completed [facility] HIB 4 Dose Schedule 2000 00:00:00 Completed [facility] Hep B, Adol or Pedi Dosage 2000 00:00:00 Completed [facility] DTAP 2000 00:00:00 Completed [facility] HIB 4 Dose Schedule 2000 00:00:00 Completed [facility] Hep B, Adol or Pedi Dosage 2000 00:00:00 Completed [facility] DTAP 2000 00:00:00 Completed [facility] HIB 4 Dose Schedule 2000 00:00:00 Completed [facility] Hep B, Adol or Pedi Dosage 2000 00:00:00 Completed [facility] DTAP 2000 00:00:00 Completed [facility] HIB 4 Dose Schedule 2000 00:00:00 Completed [facility] Hep B, Adol or Pedi Dosage 2000 00:00:00 Completed [facility] DTAP 2000 00:00:00 Completed [facility] HIB 4 Dose Schedule 2000 00:00:00 Completed [facility] Hep B, Adol or Pedi Dosage 2000 00:00:00 Completed [facility] DTAP 2000 00:00:00 Completed [facility] HIB 4 Dose Schedule 2000 00:00:00 Completed [facility] Hep B, Adol or Pedi Dosage 2000 00:00:00 Completed [facility] DTAP 2000 00:00:00 Completed [facility] HIB 4 Dose Schedule 2000 00:00:00 Completed [facility] DTAP 2000 00:00:00 Completed [facility] Hep B, Adol or Pedi Dosage 2000 00:00:00 Completed [facility] DTAP 2000 00:00:00 Completed [facility] HIB 4 Dose Schedule 2000 00:00:00 Completed [facility] Hep B, Adol or Pedi Dosage 2000 00:00:00 Completed [facility] HIB 4 Dose Schedule 2000 00:00:00 Completed [facility] DTAP 2000 00:00:00 Completed [facility] HIB 4 Dose Schedule 2000 00:00:00 Completed [facility] Hep B, Adol or Pedi Dosage 2000 00:00:00 Completed [facility] Hep B, Adol or Pedi Dosage 2000 00:00:00 Completed [facility] DTAP 2000 00:00:00 Completed [facility] HIB 4 Dose Schedule 2000 00:00:00 Completed [facility] Hep B, Adol or Pedi Dosage 2000 00:00:00 Completed [facility] DTAP 2000 00:00:00 Completed [facility] HIB 4 Dose Schedule 2000 00:00:00 Completed [facility] Hep B, Adol or Pedi Dosage 2000 00:00:00 Completed [facility] DTAP 2000 00:00:00 Completed [facility] HIB 4 Dose Schedule 2000 00:00:00 Completed [facility] Hep B, Adol or Pedi Dosage 2000 00:00:00 Completed [facility] DTAP 2000 00:00:00 Completed [facility] HIB 4 Dose Schedule 2000 00:00:00 Completed [facility] Hep B, Adol or Pedi Dosage 2000 00:00:00 Completed [facility] DTAP 2000 00:00:00 Completed [facility] HIB 4 Dose Schedule 2000 00:00:00 Completed [facility] Hep B, Adol or Pedi Dosage 2000 00:00:00 Completed [facility] DTAP 2000 00:00:00 Completed [facility] HIB 4 Dose Schedule 2000 00:00:00 Completed [facility] Hep B, Adol or Pedi Dosage 2000 00:00:00 Completed [facility] DTAP 2000 00:00:00 Completed [facility] HIB 4 Dose Schedule 2000 00:00:00 Completed [facility] Hep B, Adol or Pedi Dosage 2000 00:00:00 Completed [facility] DTAP 2000 00:00:00 Completed [facility] DTAP 2000 00:00:00 Completed [facility] HIB 4 Dose Schedule 2000 00:00:00 Completed [facility] Hep B, Adol or Pedi Dosage 2000 00:00:00 Completed [facility] HIB 4 Dose Schedule 2000 00:00:00 Completed [facility] DTAP 2000 00:00:00 Completed [facility] HIB 4 Dose Schedule 2000 00:00:00 Completed [facility] Hep B, Adol or Pedi Dosage 2000 00:00:00 Completed [facility] Hep B, Adol or Pedi Dosage 2000 00:00:00 Completed [facility] DTAP 2000 00:00:00 Completed [facility] HIB 4 Dose Schedule 2000 00:00:00 Completed [facility] Hep B, Adol or Pedi Dosage 2000 00:00:00 Completed [facility] DTAP 2000 00:00:00 Completed [facility] HIB 4 Dose Schedule 2000 00:00:00 Completed [facility] Hep B, Adol or Pedi Dosage 2000 00:00:00 Completed [facility] DTAP 2000 00:00:00 Completed [facility] HIB 4 Dose Schedule 2000 00:00:00 Completed [facility] Hep B, Adol or Pedi Dosage 2000 00:00:00 Completed [facility] DTAP 2000 00:00:00 Completed [facility] HIB 4 Dose Schedule 2000 00:00:00 Completed [facility] Hep B, Adol or Pedi Dosage 2000 00:00:00 Completed [facility] DTAP 2000 00:00:00 Completed [facility] HIB 4 Dose Schedule 2000 00:00:00 Completed [facility] Hep B, Adol or Pedi Dosage 2000 00:00:00 Completed [facility] DTAP 2000 00:00:00 Completed [facility] HIB 4 Dose Schedule 2000 00:00:00 Completed [facility] Hep B, Adol or Pedi Dosage 2000 00:00:00 Completed [facility] DTAP 2000 00:00:00 Completed [facility] DTAP 2000 00:00:00 Completed [facility] HIB 4 Dose Schedule 2000 00:00:00 Completed [facility] Hep B, Adol or Pedi Dosage 2000 00:00:00 Completed [facility] HIB 4 Dose Schedule 2000 00:00:00 Completed [facility] DTAP 2000 00:00:00 Completed [facility] HIB 4 Dose Schedule 2000 00:00:00 Completed [facility] Hep B, Adol or Pedi Dosage 2000 00:00:00 Completed [facility] Hep B, Adol or Pedi Dosage 2000 00:00:00 Completed [facility] DTAP 2000 00:00:00 Completed [facility] HIB 4 Dose Schedule 2000 00:00:00 Completed [facility] Hep B, Adol or Pedi Dosage 2000 00:00:00 Completed [facility] DTAP 2000 00:00:00 Completed [facility] HIB 4 Dose Schedule 2000 00:00:00 Completed [facility] Hep B, Adol or Pedi Dosage 2000 00:00:00 Completed [facility] DTAP 2000 00:00:00 Completed [facility] HIB 4 Dose Schedule 2000 00:00:00 Completed [facility] Hep B, Adol or Pedi Dosage 2000 00:00:00 Completed [facility] DTAP 2000 00:00:00 Completed [facility] HIB 4 Dose Schedule 2000 00:00:00 Completed [facility] Hep B, Adol or Pedi Dosage 2000 00:00:00 Completed [facility] DTAP 2000 00:00:00 Completed [facility] HIB 4 Dose Schedule 2000 00:00:00 Completed [facility] Hep B, Adol or Pedi Dosage 2000 00:00:00 Completed [facility] DTAP 2000 00:00:00 Completed [facility] HIB 4 Dose Schedule 2000 00:00:00 Completed [facility] Hep B, Adol or Pedi Dosage 2000 00:00:00 Completed [facility] DTAP 2000 00:00:00 Completed [facility] DTAP 2000 00:00:00 Completed [facility] HIB 4 Dose Schedule 2000 00:00:00 Completed [facility] Hep B, Adol or Pedi Dosage 2000 00:00:00 Completed [facility] DTAP 2000 00:00:00 Completed [facility] HIB 4 Dose Schedule 2000 00:00:00 Completed [facility] HIB 4 Dose Schedule 2000 00:00:00 Completed [facility] Hep B, Adol or Pedi Dosage 2000 00:00:00 Completed [facility] DTAP 2000 00:00:00 Completed [facility] HIB 4 Dose Schedule 2000 00:00:00 Completed [facility] Hep B, Adol or Pedi Dosage 2000 00:00:00 Completed [facility] Hep B, Adol or Pedi Dosage 2000 00:00:00 Completed [facility] DTAP 2000 00:00:00 Completed [facility] HIB 4 Dose Schedule 2000 00:00:00 Completed [facility] Hep B, Adol or Pedi Dosage 2000 00:00:00 Completed [facility] DTAP 2000 00:00:00 Completed [facility] HIB 4 Dose Schedule 2000 00:00:00 Completed [facility] Hep B, Adol or Pedi Dosage 2000 00:00:00 Completed [facility] DTAP 2000 00:00:00 Completed [facility] HIB 4 Dose Schedule 2000 00:00:00 Completed [facility] Hep B, Adol or Pedi Dosage 2000 00:00:00 Completed [facility] DTAP 2000 00:00:00 Completed [facility] HIB 4 Dose Schedule 2000 00:00:00 Completed [facility] Hep B, Adol or Pedi Dosage 2000 00:00:00 Completed [facility] DTAP 2000 00:00:00 Completed [facility] HIB 4 Dose Schedule 2000 00:00:00 Completed [facility] Hep B, Adol or Pedi Dosage 2000 00:00:00 Completed [facility] DTAP 2000 00:00:00 Completed [facility] DTAP 2000 00:00:00 Completed [facility] HIB 4 Dose Schedule 2000 00:00:00 Completed [facility] Hep B, Adol or Pedi Dosage 2000 00:00:00 Completed [facility] HIB 4 Dose Schedule 2000 00:00:00 Completed [facility] DTAP 2000 00:00:00 Completed [facility] HIB 4 Dose Schedule 2000 00:00:00 Completed [facility] Hep B, Adol or Pedi Dosage 2000 00:00:00 Completed [facility] Hep B, Adol or Pedi Dosage 2000 00:00:00 Completed [facility] DTAP 2000 00:00:00 Completed [facility] HIB 4 Dose Schedule 2000 00:00:00 Completed [facility] Hep B, Adol or Pedi Dosage 2000 00:00:00 Completed [facility] DTAP 2000 00:00:00 Completed [facility] HIB 4 Dose Schedule 2000 00:00:00 Completed [facility] Hep B, Adol or Pedi Dosage 2000 00:00:00 Completed [facility] DTAP 2000 00:00:00 Completed [facility] HIB 4 Dose Schedule 2000 00:00:00 Completed [facility] Hep B, Adol or Pedi Dosage 2000 00:00:00 Completed [facility] DTAP 2000 00:00:00 Completed [facility] HIB 4 Dose Schedule 2000 00:00:00 Completed [facility] Hep B, Adol or Pedi Dosage 2000 00:00:00 Completed [facility] DTAP 2000 00:00:00 Completed [facility] HIB 4 Dose Schedule 2000 00:00:00 Completed [facility] Hep B, Adol or Pedi Dosage 2000 00:00:00 Completed [facility] DTAP 2000 00:00:00 Completed [facility] DTAP 2000 00:00:00 Completed [facility] HIB 4 Dose Schedule 2000 00:00:00 Completed [facility] Hep B, Adol or Pedi Dosage 2000 00:00:00 Completed [facility] DTAP 2000 00:00:00 Completed [facility] HIB 4 Dose Schedule 2000 00:00:00 Completed [facility] HIB 4 Dose Schedule 2000 00:00:00 Completed [facility] Hep B, Adol or Pedi Dosage 2000 00:00:00 Completed [facility] DTAP 2000 00:00:00 Completed [facility] HIB 4 Dose Schedule 2000 00:00:00 Completed [facility] Hep B, Adol or Pedi Dosage 2000 00:00:00 Completed [facility] Hep B, Adol or Pedi Dosage 2000 00:00:00 Completed [facility] DTAP 2000 00:00:00 Completed [facility] HIB 4 Dose Schedule 2000 00:00:00 Completed [facility] Hep B, Adol or Pedi Dosage 2000 00:00:00 Completed [facility] DTAP 2000 00:00:00 Completed [facility] HIB 4 Dose Schedule 2000 00:00:00 Completed [facility] Hep B, Adol or Pedi Dosage 2000 00:00:00 Completed [facility] DTAP 2000 00:00:00 Completed [facility] HIB 4 Dose Schedule 2000 00:00:00 Completed [facility] Hep B, Adol or Pedi Dosage 2000 00:00:00 Completed [facility] DTAP 2000 00:00:00 Completed [facility] HIB 4 Dose Schedule 2000 00:00:00 Completed [facility] Hep B, Adol or Pedi Dosage 2000 00:00:00 Completed [facility] DTAP 2000 00:00:00 Completed [facility] HIB 4 Dose Schedule 2000 00:00:00 Completed [facility] Hep B, Adol or Pedi Dosage 2000 00:00:00 Completed [facility] DTAP 2000 00:00:00 Completed [facility] HIB 4 Dose Schedule 2000 00:00:00 Completed [facility] Hep B, Adol or Pedi Dosage 2000 00:00:00 Completed [facility] DTAP 2000 00:00:00 Completed [facility] HIB 4 Dose Schedule 2000 00:00:00 Completed [facility] Hep B, Adol or Pedi Dosage 2000 00:00:00 Completed [facility] DTAP 2000 00:00:00 Completed [facility] HIB 4 Dose Schedule 2000 00:00:00 Completed [facility] Hep B, Adol or Pedi Dosage 2000 00:00:00 Completed [facility] DTAP 2000 00:00:00 Completed [facility] DTAP 2000 00:00:00 Completed [facility] HIB 4 Dose Schedule 2000 00:00:00 Completed [facility] Hep B, Adol or Pedi Dosage 2000 00:00:00 Completed [facility] HIB 4 Dose Schedule 2000 00:00:00 Completed [facility] DTAP 2000 00:00:00 Completed [facility] HIB 4 Dose Schedule 2000 00:00:00 Completed [facility] Hep B, Adol or Pedi Dosage 2000 00:00:00 Completed [facility] Hep B, Adol or Pedi Dosage 2000 00:00:00 Completed [facility] DTAP 2000 00:00:00 Completed [facility] HIB 4 Dose Schedule 2000 00:00:00 Completed [facility] Hep B, Adol or Pedi Dosage 2000 00:00:00 Completed [facility] DTAP 2000 00:00:00 Completed [facility] HIB 4 Dose Schedule 2000 00:00:00 Completed [facility] Hep B, Adol or Pedi Dosage 2000 00:00:00 Completed [facility] DTAP 2000 00:00:00 Completed [facility] HIB 4 Dose Schedule 2000 00:00:00 Completed [facility] Hep B, Adol or Pedi Dosage 2000 00:00:00 Completed [facility] DTAP 2000 00:00:00 Completed [facility] HIB 4 Dose Schedule 2000 00:00:00 Completed [facility] Hep B, Adol or Pedi Dosage 2000 00:00:00 Completed [facility] DTAP 2000 00:00:00 Completed HIB 4 Dose Schedule 2000 00:00:00 Completed Hep B, Adol or Pedi Dosage 2000 00:00:00 Completed DTAP 2000 00:00:00 Completed [facility] HIB 4 Dose Schedule 2000 00:00:00 Completed [facility] Hep B, Adol or Pedi Dosage 2000 00:00:00 Completed [facility] DTAP 2000 00:00:00 Completed [facility] HIB 4 Dose Schedule 2000 00:00:00 Completed [facility] Hep B, Adol or Pedi Dosage 2000 00:00:00 Completed [facility] DTAP 2000 00:00:00 Completed [facility] HIB 4 Dose Schedule 2000 00:00:00 Completed [facility] Hep B, Adol or Pedi Dosage 2000 00:00:00 Completed [facility] DTAP 2000 00:00:00 Completed [facility] HIB 4 Dose Schedule 2000 00:00:00 Completed [facility] Hep B, Adol or Pedi Dosage 2000 00:00:00 Completed [facility] Polio (IPV/OPV) 2000 00:00:00 Completed [facility] DTAP 2000 00:00:00 Completed [facility] HIB 4 Dose Schedule 2000 00:00:00 Completed [facility] Polio (IPV/OPV) 2000 00:00:00 Completed [facility] DTAP 2000 00:00:00 Completed [facility] HIB 4 Dose Schedule 2000 00:00:00 Completed [facility] Polio (IPV/OPV) 2000 00:00:00 Completed [facility] DTAP 2000 00:00:00 Completed [facility] HIB 4 Dose Schedule 2000 00:00:00 Completed [facility] Polio (IPV/OPV) 2000 00:00:00 Completed [facility] Polio (IPV/OPV) 2000 00:00:00 Completed [facility] DTAP 2000 00:00:00 Completed [facility] HIB 4 Dose Schedule 2000 00:00:00 Completed [facility] Polio (IPV/OPV) 2000 00:00:00 Completed [facility] DTAP 2000 00:00:00 Completed [facility] HIB 4 Dose Schedule 2000 00:00:00 Completed [facility] Polio (IPV/OPV) 2000 00:00:00 Completed [facility] DTAP 2000 00:00:00 Completed [facility] HIB 4 Dose Schedule 2000 00:00:00 Completed [facility] Polio (IPV/OPV) 2000 00:00:00 Completed [facility] DTAP 2000 00:00:00 Completed [facility] HIB 4 Dose Schedule 2000 00:00:00 Completed [facility] Polio (IPV/OPV) 2000 00:00:00 Completed [facility] DTAP 2000 00:00:00 Completed [facility] HIB 4 Dose Schedule 2000 00:00:00 Completed [facility] Polio (IPV/OPV) 2000 00:00:00 Completed [facility] DTAP 2000 00:00:00 Completed [facility] HIB 4 Dose Schedule 2000 00:00:00 Completed [facility] Polio (IPV/OPV) 2000 00:00:00 Completed [facility] DTAP 2000 00:00:00 Completed [facility] DTAP 2000 00:00:00 Completed [facility] HIB 4 Dose Schedule 2000 00:00:00 Completed [facility] Polio (IPV/OPV) 2000 00:00:00 Completed [facility] HIB 4 Dose Schedule 2000 00:00:00 Completed [facility] DTAP 2000 00:00:00 Completed [facility] HIB 4 Dose Schedule 2000 00:00:00 Completed [facility] Polio (IPV/OPV) 2000 00:00:00 Completed [facility] DTAP 2000 00:00:00 Completed [facility] HIB 4 Dose Schedule 2000 00:00:00 Completed [facility] Polio (IPV/OPV) 2000 00:00:00 Completed [facility] DTAP 2000 00:00:00 Completed [facility] HIB 4 Dose Schedule 2000 00:00:00 Completed [facility] Polio (IPV/OPV) 2000 00:00:00 Completed [facility] DTAP 2000 00:00:00 Completed [facility] HIB 4 Dose Schedule 2000 00:00:00 Completed [facility] Polio (IPV/OPV) 2000 00:00:00 Completed [facility] Polio (IPV/OPV) 2000 00:00:00 Completed [facility] DTAP 2000 00:00:00 Completed [facility] HIB 4 Dose Schedule 2000 00:00:00 Completed [facility] Polio (IPV/OPV) 2000 00:00:00 Completed [facility] DTAP 2000 00:00:00 Completed [facility] HIB 4 Dose Schedule 2000 00:00:00 Completed [facility] Polio (IPV/OPV) 2000 00:00:00 Completed [facility] DTAP 2000 00:00:00 Completed [facility] HIB 4 Dose Schedule 2000 00:00:00 Completed [facility] Polio (IPV/OPV) 2000 00:00:00 Completed [facility] DTAP 2000 00:00:00 Completed [facility] HIB 4 Dose Schedule 2000 00:00:00 Completed [facility] DTAP 2000 00:00:00 Completed [facility] Polio (IPV/OPV) 2000 00:00:00 Completed [facility] DTAP 2000 00:00:00 Completed [facility] HIB 4 Dose Schedule 2000 00:00:00 Completed [facility] HIB 4 Dose Schedule 2000 00:00:00 Completed [facility] Polio (IPV/OPV) 2000 00:00:00 Completed [facility] DTAP 2000 00:00:00 Completed [facility] HIB 4 Dose Schedule 2000 00:00:00 Completed [facility] Polio (IPV/OPV) 2000 00:00:00 Completed [facility] DTAP 2000 00:00:00 Completed [facility] HIB 4 Dose Schedule 2000 00:00:00 Completed [facility] Polio (IPV/OPV) 2000 00:00:00 Completed [facility] DTAP 2000 00:00:00 Completed [facility] HIB 4 Dose Schedule 2000 00:00:00 Completed [facility] Polio (IPV/OPV) 2000 00:00:00 Completed [facility] Polio (IPV/OPV) 2000 00:00:00 Completed [facility] DTAP 2000 00:00:00 Completed [facility] HIB 4 Dose Schedule 2000 00:00:00 Completed [facility] Polio (IPV/OPV) 2000 00:00:00 Completed [facility] DTAP 2000 00:00:00 Completed [facility] HIB 4 Dose Schedule 2000 00:00:00 Completed [facility] Polio (IPV/OPV) 2000 00:00:00 Completed [facility] DTAP 2000 00:00:00 Completed [facility] HIB 4 Dose Schedule 2000 00:00:00 Completed [facility] Polio (IPV/OPV) 2000 00:00:00 Completed [facility] DTAP 2000 00:00:00 Completed [facility] HIB 4 Dose Schedule 2000 00:00:00 Completed [facility] DTAP 2000 00:00:00 Completed [facility] Polio (IPV/OPV) 2000 00:00:00 Completed [facility] DTAP 2000 00:00:00 Completed [facility] HIB 4 Dose Schedule 2000 00:00:00 Completed [facility] HIB 4 Dose Schedule 2000 00:00:00 Completed [facility] Polio (IPV/OPV) 2000 00:00:00 Completed [facility] DTAP 2000 00:00:00 Completed [facility] HIB 4 Dose Schedule 2000 00:00:00 Completed [facility] Polio (IPV/OPV) 2000 00:00:00 Completed [facility] DTAP 2000 00:00:00 Completed [facility] HIB 4 Dose Schedule 2000 00:00:00 Completed [facility] Polio (IPV/OPV) 2000 00:00:00 Completed [facility] DTAP 2000 00:00:00 Completed [facility] HIB 4 Dose Schedule 2000 00:00:00 Completed [facility] Polio (IPV/OPV) 2000 00:00:00 Completed [facility] Polio (IPV/OPV) 2000 00:00:00 Completed [facility] DTAP 2000 00:00:00 Completed [facility] HIB 4 Dose Schedule 2000 00:00:00 Completed [facility] Polio (IPV/OPV) 2000 00:00:00 Completed [facility] DTAP 2000 00:00:00 Completed [facility] HIB 4 Dose Schedule 2000 00:00:00 Completed [facility] Polio (IPV/OPV) 2000 00:00:00 Completed [facility] DTAP 2000 00:00:00 Completed [facility] HIB 4 Dose Schedule 2000 00:00:00 Completed [facility] Polio (IPV/OPV) 2000 00:00:00 Completed [facility] DTAP 2000 00:00:00 Completed [facility] HIB 4 Dose Schedule 2000 00:00:00 Completed [facility] Polio (IPV/OPV) 2000 00:00:00 Completed [facility] DTAP 2000 00:00:00 Completed [facility] DTAP 2000 00:00:00 Completed [facility] HIB 4 Dose Schedule 2000 00:00:00 Completed [facility] Polio (IPV/OPV) 2000 00:00:00 Completed [facility] DTAP 2000 00:00:00 Completed [facility] HIB 4 Dose Schedule 2000 00:00:00 Completed [facility] HIB 4 Dose Schedule 2000 00:00:00 Completed [facility] Polio (IPV/OPV) 2000 00:00:00 Completed [facility] DTAP 2000 00:00:00 Completed [facility] HIB 4 Dose Schedule 2000 00:00:00 Completed [facility] Polio (IPV/OPV) 2000 00:00:00 Completed [facility] DTAP 2000 00:00:00 Completed [facility] HIB 4 Dose Schedule 2000 00:00:00 Completed [facility] Polio (IPV/OPV) 2000 00:00:00 Completed [facility] Polio (IPV/OPV) 2000 00:00:00 Completed [facility] DTAP 2000 00:00:00 Completed [facility] HIB 4 Dose Schedule 2000 00:00:00 Completed [facility] Polio (IPV/OPV) 2000 00:00:00 Completed [facility] DTAP 2000 00:00:00 Completed [facility] HIB 4 Dose Schedule 2000 00:00:00 Completed [facility] DTAP 2000 00:00:00 Completed [facility] HIB 4 Dose Schedule 2000 00:00:00 Completed [facility] Polio (IPV/OPV) 2000 00:00:00 Completed [facility] DTAP 2000 00:00:00 Completed [facility] HIB 4 Dose Schedule 2000 00:00:00 Completed [facility] DTAP 2000 00:00:00 Completed [facility] HIB 4 Dose Schedule 2000 00:00:00 Completed [facility] Polio (IPV/OPV) 2000 00:00:00 Completed [facility] DTAP 2000 00:00:00 Completed [facility] HIB 4 Dose Schedule 2000 00:00:00 Completed [facility] Polio (IPV/OPV) 2000 00:00:00 Completed [facility] DTAP 2000 00:00:00 Completed [facility] HIB 4 Dose Schedule 2000 00:00:00 Completed [facility] Polio (IPV/OPV) 2000 00:00:00 Completed [facility] Polio (IPV/OPV) 2000 00:00:00 Completed [facility] DTAP 2000 00:00:00 Completed [facility] HIB 4 Dose Schedule 2000 00:00:00 Completed [facility] Polio (IPV/OPV) 2000 00:00:00 Completed [facility] DTAP 2000 00:00:00 Completed [facility] HIB 4 Dose Schedule 2000 00:00:00 Completed [facility] Polio (IPV/OPV) 2000 00:00:00 Completed [facility] DTAP 2000 00:00:00 Completed [facility] HIB 4 Dose Schedule 2000 00:00:00 Completed [facility] Polio (IPV/OPV) 2000 00:00:00 Completed [facility] DTAP 2000 00:00:00 Completed [facility] HIB 4 Dose Schedule 2000 00:00:00 Completed [facility] Polio (IPV/OPV) 2000 00:00:00 Completed [facility] DTAP 2000 00:00:00 Completed [facility] DTAP 2000 00:00:00 Completed [facility] HIB 4 Dose Schedule 2000 00:00:00 Completed [facility] Polio (IPV/OPV) 2000 00:00:00 Completed [facility] DTAP 2000 00:00:00 Completed [facility] HIB 4 Dose Schedule 2000 00:00:00 Completed [facility] HIB 4 Dose Schedule 2000 00:00:00 Completed [facility] Polio (IPV/OPV) 2000 00:00:00 Completed [facility] DTAP 2000 00:00:00 Completed [facility] HIB 4 Dose Schedule 2000 00:00:00 Completed [facility] Polio (IPV/OPV) 2000 00:00:00 Completed [facility] DTAP 2000 00:00:00 Completed [facility] HIB 4 Dose Schedule 2000 00:00:00 Completed [facility] Polio (IPV/OPV) 2000 00:00:00 Completed [facility] DTAP 2000 00:00:00 Completed [facility] HIB 4 Dose Schedule 2000 00:00:00 Completed [facility] Polio (IPV/OPV) 2000 00:00:00 Completed [facility] Polio (IPV/OPV) 2000 00:00:00 Completed [facility] DTAP 2000 00:00:00 Completed [facility] HIB 4 Dose Schedule 2000 00:00:00 Completed [facility] Polio (IPV/OPV) 2000 00:00:00 Completed [facility] DTAP 2000 00:00:00 Completed [facility] HIB 4 Dose Schedule 2000 00:00:00 Completed [facility] Polio (IPV/OPV) 2000 00:00:00 Completed [facility] DTAP 2000 00:00:00 Completed [facility] HIB 4 Dose Schedule 2000 00:00:00 Completed [facility] Polio (IPV/OPV) 2000 00:00:00 Completed [facility] DTAP 2000 00:00:00 Completed [facility] HIB 4 Dose Schedule 2000 00:00:00 Completed [facility] Polio (IPV/OPV) 2000 00:00:00 Completed [facility] DTAP 2000 00:00:00 Completed [facility] HIB 4 Dose Schedule 2000 00:00:00 Completed [facility] Polio (IPV/OPV) 2000 00:00:00 Completed [facility] DTAP 2000 00:00:00 Completed [facility] DTAP 2000 00:00:00 Completed [facility] HIB 4 Dose Schedule 2000 00:00:00 Completed [facility] Polio (IPV/OPV) 2000 00:00:00 Completed [facility] HIB 4 Dose Schedule 2000 00:00:00 Completed [facility] DTAP 2000 00:00:00 Completed [facility] HIB 4 Dose Schedule 2000 00:00:00 Completed [facility] Polio (IPV/OPV) 2000 00:00:00 Completed [facility] DTAP 2000 00:00:00 Completed [facility] HIB 4 Dose Schedule 2000 00:00:00 Completed [facility] Polio (IPV/OPV) 2000 00:00:00 Completed [facility] DTAP 2000 00:00:00 Completed [facility] HIB 4 Dose Schedule 2000 00:00:00 Completed [facility] Polio (IPV/OPV) 2000 00:00:00 Completed [facility] Polio (IPV/OPV) 2000 00:00:00 Completed [facility] DTAP 2000 00:00:00 Completed [facility] HIB 4 Dose Schedule 2000 00:00:00 Completed [facility] Polio (IPV/OPV) 2000 00:00:00 Completed [facility] DTAP 2000 00:00:00 Completed [facility] HIB 4 Dose Schedule 2000 00:00:00 Completed [facility] Polio (IPV/OPV) 2000 00:00:00 Completed [facility] DTAP 2000 00:00:00 Completed [facility] HIB 4 Dose Schedule 2000 00:00:00 Completed [facility] Polio (IPV/OPV) 2000 00:00:00 Completed [facility] DTAP 2000 00:00:00 Completed [facility] HIB 4 Dose Schedule 2000 00:00:00 Completed [facility] DTAP 2000 00:00:00 Completed [facility] Polio (IPV/OPV) 2000 00:00:00 Completed [facility] DTAP 2000 00:00:00 Completed [facility] HIB 4 Dose Schedule 2000 00:00:00 Completed [facility] HIB 4 Dose Schedule 2000 00:00:00 Completed [facility] Polio (IPV/OPV) 2000 00:00:00 Completed [facility] DTAP 2000 00:00:00 Completed [facility] HIB 4 Dose Schedule 2000 00:00:00 Completed [facility] Polio (IPV/OPV) 2000 00:00:00 Completed [facility] DTAP 2000 00:00:00 Completed [facility] HIB 4 Dose Schedule 2000 00:00:00 Completed [facility] Polio (IPV/OPV) 2000 00:00:00 Completed [facility] DTAP 2000 00:00:00 Completed [facility] HIB 4 Dose Schedule 2000 00:00:00 Completed [facility] Polio (IPV/OPV) 2000 00:00:00 Completed [facility] Polio (IPV/OPV) 2000 00:00:00 Completed [facility] DTAP 2000 00:00:00 Completed [facility] HIB 4 Dose Schedule 2000 00:00:00 Completed [facility] Polio (IPV/OPV) 2000 00:00:00 Completed [facility] DTAP 2000 00:00:00 Completed [facility] HIB 4 Dose Schedule 2000 00:00:00 Completed [facility] Polio (IPV/OPV) 2000 00:00:00 Completed [facility] DTAP 2000 00:00:00 Completed [facility] HIB 4 Dose Schedule 2000 00:00:00 Completed [facility] Polio (IPV/OPV) 2000 00:00:00 Completed [facility] DTAP 2000 00:00:00 Completed [facility] HIB 4 Dose Schedule 2000 00:00:00 Completed [facility] Polio (IPV/OPV) 2000 00:00:00 Completed [facility] DTAP 2000 00:00:00 Completed [facility] DTAP 2000 00:00:00 Completed [facility] HIB 4 Dose Schedule 2000 00:00:00 Completed [facility] Polio (IPV/OPV) 2000 00:00:00 Completed [facility] DTAP 2000 00:00:00 Completed [facility] HIB 4 Dose Schedule 2000 00:00:00 Completed [facility] HIB 4 Dose Schedule 2000 00:00:00 Completed [facility] Polio (IPV/OPV) 2000 00:00:00 Completed [facility] DTAP 2000 00:00:00 Completed [facility] HIB 4 Dose Schedule 2000 00:00:00 Completed [facility] Polio (IPV/OPV) 2000 00:00:00 Completed [facility] DTAP 2000 00:00:00 Completed [facility] HIB 4 Dose Schedule 2000 00:00:00 Completed [facility] Polio (IPV/OPV) 2000 00:00:00 Completed [facility] Polio (IPV/OPV) 2000 00:00:00 Completed [facility] DTAP 2000 00:00:00 Completed [facility] HIB 4 Dose Schedule 2000 00:00:00 Completed [facility] Polio (IPV/OPV) 2000 00:00:00 Completed [facility] DTAP 2000 00:00:00 Completed [facility] HIB 4 Dose Schedule 2000 00:00:00 Completed [facility] Polio (IPV/OPV) 2000 00:00:00 Completed [facility] DTAP 2000 00:00:00 Completed [facility] HIB 4 Dose Schedule 2000 00:00:00 Completed [facility] Polio (IPV/OPV) 2000 00:00:00 Completed [facility] DTAP 2000 00:00:00 Completed [facility] HIB 4 Dose Schedule 2000 00:00:00 Completed [facility] Polio (IPV/OPV) 2000 00:00:00 Completed [facility] DTAP 2000 00:00:00 Completed [facility] DTAP 2000 00:00:00 Completed [facility] HIB 4 Dose Schedule 2000 00:00:00 Completed [facility] HIB 4 Dose Schedule 2000 00:00:00 Completed [facility] Polio (IPV/OPV) 2000 00:00:00 Completed [facility] DTAP 2000 00:00:00 Completed [facility] HIB 4 Dose Schedule 2000 00:00:00 Completed [facility] Polio (IPV/OPV) 2000 00:00:00 Completed [facility] DTAP 2000 00:00:00 Completed [facility] HIB 4 Dose Schedule 2000 00:00:00 Completed [facility] Polio (IPV/OPV) 2000 00:00:00 Completed [facility] DTAP 2000 00:00:00 Completed [facility] HIB 4 Dose Schedule 2000 00:00:00 Completed [facility] Polio (IPV/OPV) 2000 00:00:00 Completed [facility] Polio (IPV/OPV) 2000 00:00:00 Completed [facility] DTAP 2000 00:00:00 Completed [facility] HIB 4 Dose Schedule 2000 00:00:00 Completed [facility] Polio (IPV/OPV) 2000 00:00:00 Completed [facility] DTAP 2000 00:00:00 Completed [facility] HIB 4 Dose Schedule 2000 00:00:00 Completed [facility] Polio (IPV/OPV) 2000 00:00:00 Completed [facility] DTAP 2000 00:00:00 Completed [facility] HIB 4 Dose Schedule 2000 00:00:00 Completed [facility] Polio (IPV/OPV) 2000 00:00:00 Completed [facility] DTAP 2000 00:00:00 Completed [facility] DTAP 2000 00:00:00 Completed [facility] HIB 4 Dose Schedule 2000 00:00:00 Completed [facility] Polio (IPV/OPV) 2000 00:00:00 Completed [facility] HIB 4 Dose Schedule 2000 00:00:00 Completed [facility] DTAP 2000 00:00:00 Completed [facility] HIB 4 Dose Schedule 2000 00:00:00 Completed [facility] Polio (IPV/OPV) 2000 00:00:00 Completed [facility] DTAP 2000 00:00:00 Completed [facility] HIB 4 Dose Schedule 2000 00:00:00 Completed [facility] Polio (IPV/OPV) 2000 00:00:00 Completed [facility] DTAP 2000 00:00:00 Completed [facility] HIB 4 Dose Schedule 2000 00:00:00 Completed [facility] Polio (IPV/OPV) 2000 00:00:00 Completed [facility] DTAP 2000 00:00:00 Completed [facility] HIB 4 Dose Schedule 2000 00:00:00 Completed [facility] Polio (IPV/OPV) 2000 00:00:00 Completed [facility] Polio (IPV/OPV) 2000 00:00:00 Completed [facility] DTAP 2000 00:00:00 Completed [facility] HIB 4 Dose Schedule 2000 00:00:00 Completed [facility] Polio (IPV/OPV) 2000 00:00:00 Completed [facility] DTAP 2000 00:00:00 Completed [facility] HIB 4 Dose Schedule 2000 00:00:00 Completed [facility] Polio (IPV/OPV) 2000 00:00:00 Completed [facility] DTAP 2000 00:00:00 Completed [facility] HIB 4 Dose Schedule 2000 00:00:00 Completed [facility] Polio (IPV/OPV) 2000 00:00:00 Completed [facility] DTAP 2000 00:00:00 Completed [facility] HIB 4 Dose Schedule 2000 00:00:00 Completed [facility] Polio (IPV/OPV) 2000 00:00:00 Completed [facility] DTAP 2000 00:00:00 Completed [facility] HIB 4 Dose Schedule 2000 00:00:00 Completed [facility] Polio (IPV/OPV) 2000 00:00:00 Completed [facility] DTAP 2000 00:00:00 Completed [facility] HIB 4 Dose Schedule 2000 00:00:00 Completed [facility] Polio (IPV/OPV) 2000 00:00:00 Completed [facility] DTAP 2000 00:00:00 Completed [facility] DTAP 2000 00:00:00 Completed [facility] HIB 4 Dose Schedule 2000 00:00:00 Completed [facility] Polio (IPV/OPV) 2000 00:00:00 Completed [facility] HIB 4 Dose Schedule 2000 00:00:00 Completed [facility] DTAP 2000 00:00:00 Completed [facility] HIB 4 Dose Schedule 2000 00:00:00 Completed [facility] Polio (IPV/OPV) 2000 00:00:00 Completed [facility] DTAP 2000 00:00:00 Completed [facility] HIB 4 Dose Schedule 2000 00:00:00 Completed [facility] Polio (IPV/OPV) 2000 00:00:00 Completed [facility] Polio (IPV/OPV) 2000 00:00:00 Completed [facility] DTAP 2000 00:00:00 Completed [facility] HIB 4 Dose Schedule 2000 00:00:00 Completed [facility] Polio (IPV/OPV) 2000 00:00:00 Completed [facility] DTAP 2000 00:00:00 Completed [facility] HIB 4 Dose Schedule 2000 00:00:00 Completed [facility] Polio (IPV/OPV) 2000 00:00:00 Completed [facility] DTAP 2000 00:00:00 Completed [facility] HIB 4 Dose Schedule 2000 00:00:00 Completed [facility] DTAP 2000 00:00:00 Completed HIB 4 Dose Schedule 2000 00:00:00 Completed Polio (IPV/OPV) 2000 00:00:00 Completed Polio (IPV/OPV) 2000 00:00:00 Completed [facility] DTAP 2000 00:00:00 Completed [facility] HIB 4 Dose Schedule 2000 00:00:00 Completed [facility] Polio (IPV/OPV) 2000 00:00:00 Completed [facility] DTAP 2000 00:00:00 Completed [facility] HIB 4 Dose Schedule 2000 00:00:00 Completed [facility] Polio (IPV/OPV) 2000 00:00:00 Completed [facility] DTAP 2000 00:00:00 Completed [facility] HIB 4 Dose Schedule 2000 00:00:00 Completed [facility] Polio (IPV/OPV) 2000 00:00:00 Completed [facility] DTAP 2000 00:00:00 Completed [facility] HIB 4 Dose Schedule 2000 00:00:00 Completed [facility] DTAP 2000 00:00:00 Completed [facility] HIB 4 Dose Schedule 2000 00:00:00 Completed [facility] Hep B, Adol or Pedi Dosage 2000 00:00:00 Completed [facility] Polio (IPV/OPV) 2000 00:00:00 Completed [facility] Hep B, Adol or Pedi Dosage 2000 00:00:00 Completed [facility] DTAP 2000 00:00:00 Completed [facility] HIB 4 Dose Schedule 2000 00:00:00 Completed [facility] Hep B, Adol or Pedi Dosage 2000 00:00:00 Completed [facility] Polio (IPV/OPV) 2000 00:00:00 Completed [facility] DTAP 2000 00:00:00 Completed [facility] HIB 4 Dose Schedule 2000 00:00:00 Completed [facility] Polio (IPV/OPV) 2000 00:00:00 Completed [facility] Hep B, Adol or Pedi Dosage 2000 00:00:00 Completed [facility] Polio (IPV/OPV) 2000 00:00:00 Completed [facility] DTAP 2000 00:00:00 Completed [facility] HIB 4 Dose Schedule 2000 00:00:00 Completed [facility] Hep B, Adol or Pedi Dosage 2000 00:00:00 Completed [facility] Polio (IPV/OPV) 2000 00:00:00 Completed [facility] DTAP 2000 00:00:00 Completed [facility] HIB 4 Dose Schedule 2000 00:00:00 Completed [facility] Hep B, Adol or Pedi Dosage 2000 00:00:00 Completed [facility] Polio (IPV/OPV) 2000 00:00:00 Completed [facility] DTAP 2000 00:00:00 Completed [facility] HIB 4 Dose Schedule 2000 00:00:00 Completed [facility] Hep B, Adol or Pedi Dosage 2000 00:00:00 Completed [facility] Polio (IPV/OPV) 2000 00:00:00 Completed [facility] DTAP 2000 00:00:00 Completed [facility] HIB 4 Dose Schedule 2000 00:00:00 Completed [facility] Hep B, Adol or Pedi Dosage 2000 00:00:00 Completed [facility] Polio (IPV/OPV) 2000 00:00:00 Completed [facility] DTAP 2000 00:00:00 Completed [facility] HIB 4 Dose Schedule 2000 00:00:00 Completed [facility] Hep B, Adol or Pedi Dosage 2000 00:00:00 Completed [facility] Polio (IPV/OPV) 2000 00:00:00 Completed [facility] DTAP 2000 00:00:00 Completed [facility] HIB 4 Dose Schedule 2000 00:00:00 Completed [facility] DTAP 2000 00:00:00 Completed [facility] Hep B, Adol or Pedi Dosage 2000 00:00:00 Completed [facility] Polio (IPV/OPV) 2000 00:00:00 Completed [facility] DTAP 2000 00:00:00 Completed [facility] HIB 4 Dose Schedule 2000 00:00:00 Completed [facility] Hep B, Adol or Pedi Dosage 2000 00:00:00 Completed [facility] Polio (IPV/OPV) 2000 00:00:00 Completed [facility] HIB 4 Dose Schedule 2000 00:00:00 Completed [facility] DTAP 2000 00:00:00 Completed [facility] HIB 4 Dose Schedule 2000 00:00:00 Completed [facility] Hep B, Adol or Pedi Dosage 2000 00:00:00 Completed [facility] Polio (IPV/OPV) 2000 00:00:00 Completed [facility] DTAP 2000 00:00:00 Completed [facility] HIB 4 Dose Schedule 2000 00:00:00 Completed [facility] Hep B, Adol or Pedi Dosage 2000 00:00:00 Completed [facility] Hep B, Adol or Pedi Dosage 2000 00:00:00 Completed [facility] Polio (IPV/OPV) 2000 00:00:00 Completed [facility] DTAP 2000 00:00:00 Completed [facility] HIB 4 Dose Schedule 2000 00:00:00 Completed [facility] Hep B, Adol or Pedi Dosage 2000 00:00:00 Completed [facility] Polio (IPV/OPV) 2000 00:00:00 Completed [facility] DTAP 2000 00:00:00 Completed [facility] HIB 4 Dose Schedule 2000 00:00:00 Completed [facility] Polio (IPV/OPV) 2000 00:00:00 Completed [facility] Hep B, Adol or Pedi Dosage 2000 00:00:00 Completed [facility] Polio (IPV/OPV) 2000 00:00:00 Completed [facility] DTAP 2000 00:00:00 Completed [facility] HIB 4 Dose Schedule 2000 00:00:00 Completed [facility] Hep B, Adol or Pedi Dosage 2000 00:00:00 Completed [facility] Polio (IPV/OPV) 2000 00:00:00 Completed [facility] DTAP 2000 00:00:00 Completed [facility] HIB 4 Dose Schedule 2000 00:00:00 Completed [facility] Hep B, Adol or Pedi Dosage 2000 00:00:00 Completed [facility] Polio (IPV/OPV) 2000 00:00:00 Completed [facility] DTAP 2000 00:00:00 Completed [facility] HIB 4 Dose Schedule 2000 00:00:00 Completed [facility] Hep B, Adol or Pedi Dosage 2000 00:00:00 Completed [facility] Polio (IPV/OPV) 2000 00:00:00 Completed [facility] DTAP 2000 00:00:00 Completed [facility] DTAP 2000 00:00:00 Completed [facility] HIB 4 Dose Schedule 2000 00:00:00 Completed [facility] Hep B, Adol or Pedi Dosage 2000 00:00:00 Completed [facility] Polio (IPV/OPV) 2000 00:00:00 Completed [facility] DTAP 2000 00:00:00 Completed [facility] HIB 4 Dose Schedule 2000 00:00:00 Completed [facility] HIB 4 Dose Schedule 2000 00:00:00 Completed [facility] Hep B, Adol or Pedi Dosage 2000 00:00:00 Completed [facility] Polio (IPV/OPV) 2000 00:00:00 Completed [facility] DTAP 2000 00:00:00 Completed [facility] HIB 4 Dose Schedule 2000 00:00:00 Completed [facility] Hep B, Adol or Pedi Dosage 2000 00:00:00 Completed [facility] Polio (IPV/OPV) 2000 00:00:00 Completed [facility] Hep B, Adol or Pedi Dosage 2000 00:00:00 Completed [facility] DTAP 2000 00:00:00 Completed [facility] HIB 4 Dose Schedule 2000 00:00:00 Completed [facility] Hep B, Adol or Pedi Dosage 2000 00:00:00 Completed [facility] Polio (IPV/OPV) 2000 00:00:00 Completed [facility] DTAP 2000 00:00:00 Completed [facility] HIB 4 Dose Schedule 2000 00:00:00 Completed [facility] Hep B, Adol or Pedi Dosage 2000 00:00:00 Completed [facility] Polio (IPV/OPV) 2000 00:00:00 Completed [facility] Polio (IPV/OPV) 2000 00:00:00 Completed [facility] DTAP 2000 00:00:00 Completed [facility] HIB 4 Dose Schedule 2000 00:00:00 Completed [facility] Hep B, Adol or Pedi Dosage 2000 00:00:00 Completed [facility] Polio (IPV/OPV) 2000 00:00:00 Completed [facility] DTAP 2000 00:00:00 Completed [facility] HIB 4 Dose Schedule 2000 00:00:00 Completed [facility] Hep B, Adol or Pedi Dosage 2000 00:00:00 Completed [facility] Polio (IPV/OPV) 2000 00:00:00 Completed [facility] DTAP 2000 00:00:00 Completed [facility] HIB 4 Dose Schedule 2000 00:00:00 Completed [facility] Hep B, Adol or Pedi Dosage 2000 00:00:00 Completed [facility] Polio (IPV/OPV) 2000 00:00:00 Completed [facility] DTAP 2000 00:00:00 Completed [facility] DTAP 2000 00:00:00 Completed [facility] HIB 4 Dose Schedule 2000 00:00:00 Completed [facility] Hep B, Adol or Pedi Dosage 2000 00:00:00 Completed [facility] Polio (IPV/OPV) 2000 00:00:00 Completed [facility] DTAP 2000 00:00:00 Completed [facility] HIB 4 Dose Schedule 2000 00:00:00 Completed [facility] HIB 4 Dose Schedule 2000 00:00:00 Completed [facility] Hep B, Adol or Pedi Dosage 2000 00:00:00 Completed [facility] Polio (IPV/OPV) 2000 00:00:00 Completed [facility] DTAP 2000 00:00:00 Completed [facility] HIB 4 Dose Schedule 2000 00:00:00 Completed [facility] Hep B, Adol or Pedi Dosage 2000 00:00:00 Completed [facility] Polio (IPV/OPV) 2000 00:00:00 Completed [facility] Hep B, Adol or Pedi Dosage 2000 00:00:00 Completed [facility] DTAP 2000 00:00:00 Completed [facility] HIB 4 Dose Schedule 2000 00:00:00 Completed [facility] Hep B, Adol or Pedi Dosage 2000 00:00:00 Completed [facility] Polio (IPV/OPV) 2000 00:00:00 Completed [facility] DTAP 2000 00:00:00 Completed [facility] HIB 4 Dose Schedule 2000 00:00:00 Completed [facility] Hep B, Adol or Pedi Dosage 2000 00:00:00 Completed [facility] Polio (IPV/OPV) 2000 00:00:00 Completed [facility] Polio (IPV/OPV) 2000 00:00:00 Completed [facility] DTAP 2000 00:00:00 Completed [facility] HIB 4 Dose Schedule 2000 00:00:00 Completed [facility] Hep B, Adol or Pedi Dosage 2000 00:00:00 Completed [facility] Polio (IPV/OPV) 2000 00:00:00 Completed [facility] DTAP 2000 00:00:00 Completed [facility] HIB 4 Dose Schedule 2000 00:00:00 Completed [facility] Hep B, Adol or Pedi Dosage 2000 00:00:00 Completed [facility] Polio (IPV/OPV) 2000 00:00:00 Completed [facility] DTAP 2000 00:00:00 Completed [facility] [facility] 2000 00:00:00 Completed [facility] Hep B, Adol or Pedi Dosage 2000 00:00:00 Completed [facility] Polio (IPV/OPV) 2000 00:00:00 Completed [facility] DTAP 2000 00:00:00 Completed [facility] HIB 4 Dose Schedule 2000 00:00:00 Completed [facility] Hep B, Adol or Pedi Dosage 2000 00:00:00 Completed [facility] Polio (IPV/OPV) 2000 00:00:00 Completed [facility] DTAP 2000 00:00:00 Completed [facility] DTAP 2000 00:00:00 Completed [facility] HIB 4 Dose Schedule 2000 00:00:00 Completed [facility] Hep B, Adol or Pedi Dosage 2000 00:00:00 Completed [facility] Polio (IPV/OPV) 2000 00:00:00 Completed [facility] DTAP 2000 00:00:00 Completed [facility] HIB 4 Dose Schedule 2000 00:00:00 Completed [facility] HIB 4 Dose Schedule 2000 00:00:00 Completed [facility] Hep B, Adol or Pedi Dosage 2000 00:00:00 Completed [facility] Polio (IPV/OPV) 2000 00:00:00 Completed [facility] DTAP 2000 00:00:00 Completed [facility] HIB 4 Dose Schedule 2000 00:00:00 Completed [facility] Hep B, Adol or Pedi Dosage 2000 00:00:00 Completed [facility] Polio (IPV/OPV) 2000 00:00:00 Completed [facility] Hep B, Adol or Pedi Dosage 2000 00:00:00 Completed [facility] DTAP 2000 00:00:00 Completed [facility] HIB 4 Dose Schedule 2000 00:00:00 Completed [facility] Hep B, Adol or Pedi Dosage 2000 00:00:00 Completed [facility] Polio (IPV/OPV) 2000 00:00:00 Completed [facility] Polio (IPV/OPV) 2000 00:00:00 Completed [facility] DTAP 2000 00:00:00 Completed [facility] HIB 4 Dose Schedule 2000 00:00:00 Completed [facility] Hep B, Adol or Pedi Dosage 2000 00:00:00 Completed [facility] Polio (IPV/OPV) 2000 00:00:00 Completed [facility] DTAP 2000 00:00:00 Completed [facility] HIB 4 Dose Schedule 2000 00:00:00 Completed [facility] DTAP 2000 00:00:00 Completed [facility] HIB 4 Dose Schedule 2000 00:00:00 Completed [facility] Hep B, Adol or Pedi Dosage 2000 00:00:00 Completed [facility] Polio (IPV/OPV) 2000 00:00:00 Completed [facility] DTAP 2000 00:00:00 Completed [facility] HIB 4 Dose Schedule 2000 00:00:00 Completed [facility] DTAP 2000 00:00:00 Completed [facility] HIB 4 Dose Schedule 2000 00:00:00 Completed [facility] Hep B, Adol or Pedi Dosage 2000 00:00:00 Completed [facility] Polio (IPV/OPV) 2000 00:00:00 Completed [facility] Hep B, Adol or Pedi Dosage 2000 00:00:00 Completed [facility] DTAP 2000 00:00:00 Completed [facility] HIB 4 Dose Schedule 2000 00:00:00 Completed [facility] Hep B, Adol or Pedi Dosage 2000 00:00:00 Completed [facility] Polio (IPV/OPV) 2000 00:00:00 Completed [facility] DTAP 2000 00:00:00 Completed [facility] HIB 4 Dose Schedule 2000 00:00:00 Completed [facility] Hep B, Adol or Pedi Dosage 2000 00:00:00 Completed [facility] Polio (IPV/OPV) 2000 00:00:00 Completed [facility] Polio (IPV/OPV) 2000 00:00:00 Completed [facility] DTAP 2000 00:00:00 Completed [facility] HIB 4 Dose Schedule 2000 00:00:00 Completed [facility] Hep B, Adol or Pedi Dosage 2000 00:00:00 Completed [facility] Polio (IPV/OPV) 2000 00:00:00 Completed [facility] DTAP 2000 00:00:00 Completed [facility] HIB 4 Dose Schedule 2000 00:00:00 Completed [facility] Hep B, Adol or Pedi Dosage 2000 00:00:00 Completed [facility] Polio (IPV/OPV) 2000 00:00:00 Completed [facility] DTAP 2000 00:00:00 Completed [facility] HIB 4 Dose Schedule 2000 00:00:00 Completed [facility] Hep B, Adol or Pedi Dosage 2000 00:00:00 Completed [facility] Polio (IPV/OPV) 2000 00:00:00 Completed [facility] DTAP 2000 00:00:00 Completed [facility] HIB 4 Dose Schedule 2000 00:00:00 Completed [facility] Hep B, Adol or Pedi Dosage 2000 00:00:00 Completed [facility] Polio (IPV/OPV) 2000 00:00:00 Completed [facility] DTAP 2000 00:00:00 Completed [facility] DTAP 2000 00:00:00 Completed [facility] HIB 4 Dose Schedule 2000 00:00:00 Completed [facility] Hep B, Adol or Pedi Dosage 2000 00:00:00 Completed [facility] Polio (IPV/OPV) 2000 00:00:00 Completed [facility] HIB 4 Dose Schedule 2000 00:00:00 Completed [facility] DTAP 2000 00:00:00 Completed [facility] HIB 4 Dose Schedule 2000 00:00:00 Completed [facility] Hep B, Adol or Pedi Dosage 2000 00:00:00 Completed [facility] Polio (IPV/OPV) 2000 00:00:00 Completed [facility] DTAP 2000 00:00:00 Completed [facility] HIB 4 Dose Schedule 2000 00:00:00 Completed [facility] Hep B, Adol or Pedi Dosage 2000 00:00:00 Completed [facility] Hep B, Adol or Pedi Dosage 2000 00:00:00 Completed [facility] Polio (IPV/OPV) 2000 00:00:00 Completed [facility] DTAP 2000 00:00:00 Completed [facility] HIB 4 Dose Schedule 2000 00:00:00 Completed [facility] Hep B, Adol or Pedi Dosage 2000 00:00:00 Completed [facility] Polio (IPV/OPV) 2000 00:00:00 Completed [facility] DTAP 2000 00:00:00 Completed [facility] HIB 4 Dose Schedule 2000 00:00:00 Completed [facility] Polio (IPV/OPV) 2000 00:00:00 Completed [facility] Hep B, Adol or Pedi Dosage 2000 00:00:00 Completed [facility] Polio (IPV/OPV) 2000 00:00:00 Completed [facility] DTAP 2000 00:00:00 Completed [facility] HIB 4 Dose Schedule 2000 00:00:00 Completed [facility] Hep B, Adol or Pedi Dosage 2000 00:00:00 Completed [facility] Polio (IPV/OPV) 2000 00:00:00 Completed [facility] DTAP 2000 00:00:00 Completed [facility] HIB 4 Dose Schedule 2000 00:00:00 Completed [facility] Hep B, Adol or Pedi Dosage 2000 00:00:00 Completed [facility] Polio (IPV/OPV) 2000 00:00:00 Completed [facility] DTAP 2000 00:00:00 Completed [facility] HIB 4 Dose Schedule 2000 00:00:00 Completed [facility] Hep B, Adol or Pedi Dosage 2000 00:00:00 Completed [facility] Polio (IPV/OPV) 2000 00:00:00 Completed [facility] DTAP 2000 00:00:00 Completed [facility] HIB 4 Dose Schedule 2000 00:00:00 Completed [facility] Hep B, Adol or Pedi Dosage 2000 00:00:00 Completed [facility] Polio (IPV/OPV) 2000 00:00:00 Completed [facility] DTAP 2000 00:00:00 Completed [facility] HIB 4 Dose Schedule 2000 00:00:00 Completed [facility] Hep B, Adol or Pedi Dosage 2000 00:00:00 Completed [facility] Polio (IPV/OPV) 2000 00:00:00 Completed [facility] DTAP 2000 00:00:00 Completed [facility] DTAP 2000 00:00:00 Completed [facility] HIB 4 Dose Schedule 2000 00:00:00 Completed [facility] Hep B, Adol or Pedi Dosage 2000 00:00:00 Completed [facility] Polio (IPV/OPV) 2000 00:00:00 Completed [facility] HIB 4 Dose Schedule 2000 00:00:00 Completed [facility] DTAP 2000 00:00:00 Completed [facility] HIB 4 Dose Schedule 2000 00:00:00 Completed [facility] Hep B, Adol or Pedi Dosage 2000 00:00:00 Completed [facility] Polio (IPV/OPV) 2000 00:00:00 Completed [facility] Hep B, Adol or Pedi Dosage 2000 00:00:00 Completed [facility] DTAP 2000 00:00:00 Completed [facility] HIB 4 Dose Schedule 2000 00:00:00 Completed [facility] Hep B, Adol or Pedi Dosage 2000 00:00:00 Completed [facility] Polio (IPV/OPV) 2000 00:00:00 Completed [facility] DTAP 2000 00:00:00 Completed [facility] HIB 4 Dose Schedule 2000 00:00:00 Completed [facility] Polio (IPV/OPV) 2000 00:00:00 Completed [facility] Hep B, Adol or Pedi Dosage 2000 00:00:00 Completed [facility] Polio (IPV/OPV) 2000 00:00:00 Completed [facility] DTAP 2000 00:00:00 Completed [facility] HIB 4 Dose Schedule 2000 00:00:00 Completed [facility] Hep B, Adol or Pedi Dosage 2000 00:00:00 Completed [facility] Polio (IPV/OPV) 2000 00:00:00 Completed [facility] DTAP 2000 00:00:00 Completed [facility] HIB 4 Dose Schedule 2000 00:00:00 Completed [facility] Hep B, Adol or Pedi Dosage 2000 00:00:00 Completed [facility] Polio (IPV/OPV) 2000 00:00:00 Completed [facility] DTAP 2000 00:00:00 Completed [facility] HIB 4 Dose Schedule 2000 00:00:00 Completed [facility] Hep B, Adol or Pedi Dosage 2000 00:00:00 Completed [facility] Polio (IPV/OPV) 2000 00:00:00 Completed [facility] DTAP 2000 00:00:00 Completed [facility] DTAP 2000 00:00:00 Completed [facility] HIB 4 Dose Schedule 2000 00:00:00 Completed [facility] Hep B, Adol or Pedi Dosage 2000 00:00:00 Completed [facility] Polio (IPV/OPV) 2000 00:00:00 Completed [facility] DTAP 2000 00:00:00 Completed [facility] HIB 4 Dose Schedule 2000 00:00:00 Completed [facility] HIB 4 Dose Schedule 2000 00:00:00 Completed [facility] Hep B, Adol or Pedi Dosage 2000 00:00:00 Completed [facility] Polio (IPV/OPV) 2000 00:00:00 Completed [facility] DTAP 2000 00:00:00 Completed [facility] HIB 4 Dose Schedule 2000 00:00:00 Completed [facility] Hep B, Adol or Pedi Dosage 2000 00:00:00 Completed [facility] Polio (IPV/OPV) 2000 00:00:00 Completed [facility] Hep B, Adol or Pedi Dosage 2000 00:00:00 Completed [facility] DTAP 2000 00:00:00 Completed [facility] HIB 4 Dose Schedule 2000 00:00:00 Completed [facility] Hep B, Adol or Pedi Dosage 2000 00:00:00 Completed [facility] Polio (IPV/OPV) 2000 00:00:00 Completed [facility] DTAP 2000 00:00:00 Completed [facility] HIB 4 Dose Schedule 2000 00:00:00 Completed [facility] Polio (IPV/OPV) 2000 00:00:00 Completed [facility] Hep B, Adol or Pedi Dosage 2000 00:00:00 Completed [facility] Polio (IPV/OPV) 2000 00:00:00 Completed [facility] DTAP 2000 00:00:00 Completed [facility] HIB 4 Dose Schedule 2000 00:00:00 Completed [facility] Hep B, Adol or Pedi Dosage 2000 00:00:00 Completed [facility] Polio (IPV/OPV) 2000 00:00:00 Completed [facility] DTAP 2000 00:00:00 Completed [facility] HIB 4 Dose Schedule 2000 00:00:00 Completed [facility] Hep B, Adol or Pedi Dosage 2000 00:00:00 Completed [facility] Polio (IPV/OPV) 2000 00:00:00 Completed [facility] DTAP 2000 00:00:00 Completed [facility] HIB 4 Dose Schedule 2000 00:00:00 Completed [facility] Hep B, Adol or Pedi Dosage 2000 00:00:00 Completed [facility] Polio (IPV/OPV) 2000 00:00:00 Completed [facility] DTAP 2000 00:00:00 Completed [facility] HIB 4 Dose Schedule 2000 00:00:00 Completed [facility] Hep B, Adol or Pedi Dosage 2000 00:00:00 Completed [facility] Polio (IPV/OPV) 2000 00:00:00 Completed [facility] DTAP 2000 00:00:00 Completed [facility] DTAP 2000 00:00:00 Completed [facility] HIB 4 Dose Schedule 2000 00:00:00 Completed [facility] Hep B, Adol or Pedi Dosage 2000 00:00:00 Completed [facility] Polio (IPV/OPV) 2000 00:00:00 Completed [facility] HIB 4 Dose Schedule 2000 00:00:00 Completed [facility] DTAP 2000 00:00:00 Completed [facility] HIB 4 Dose Schedule 2000 00:00:00 Completed [facility] Hep B, Adol or Pedi Dosage 2000 00:00:00 Completed [facility] Polio (IPV/OPV) 2000 00:00:00 Completed [facility] DTAP 2000 00:00:00 Completed [facility] HIB 4 Dose Schedule 2000 00:00:00 Completed [facility] Hep B, Adol or Pedi Dosage 2000 00:00:00 Completed [facility] Hep B, Adol or Pedi Dosage 2000 00:00:00 Completed [facility] Polio (IPV/OPV) 2000 00:00:00 Completed [facility] DTAP 2000 00:00:00 Completed [facility] HIB 4 Dose Schedule 2000 00:00:00 Completed [facility] Hep B, Adol or Pedi Dosage 2000 00:00:00 Completed [facility] Polio (IPV/OPV) 2000 00:00:00 Completed [facility] Polio (IPV/OPV) 2000 00:00:00 Completed [facility] DTAP 2000 00:00:00 Completed [facility] HIB 4 Dose Schedule 2000 00:00:00 Completed [facility] Hep B, Adol or Pedi Dosage 2000 00:00:00 Completed [facility] Polio (IPV/OPV) 2000 00:00:00 Completed [facility] DTAP 2000 00:00:00 Completed [facility] HIB 4 Dose Schedule 2000 00:00:00 Completed [facility] Hep B, Adol or Pedi Dosage 2000 00:00:00 Completed [facility] Polio (IPV/OPV) 2000 00:00:00 Completed [facility] DTAP 2000 00:00:00 Completed [facility] HIB 4 Dose Schedule 2000 00:00:00 Completed [facility] Hep B, Adol or Pedi Dosage 2000 00:00:00 Completed [facility] Polio (IPV/OPV) 2000 00:00:00 Completed [facility] DTAP 2000 00:00:00 Completed [facility] HIB 4 Dose Schedule 2000 00:00:00 Completed [facility] Hep B, Adol or Pedi Dosage 2000 00:00:00 Completed [facility] Polio (IPV/OPV) 2000 00:00:00 Completed [facility] DTAP 2000 00:00:00 Completed [facility] DTAP 2000 00:00:00 Completed [facility] HIB 4 Dose Schedule 2000 00:00:00 Completed [facility] HIB 4 Dose Schedule 2000 00:00:00 Completed [facility] Hep B, Adol or Pedi Dosage 2000 00:00:00 Completed [facility] Polio (IPV/OPV) 2000 00:00:00 Completed [facility] DTAP 2000 00:00:00 Completed [facility] HIB 4 Dose Schedule 2000 00:00:00 Completed [facility] Hep B, Adol or Pedi Dosage 2000 00:00:00 Completed [facility] Polio (IPV/OPV) 2000 00:00:00 Completed [facility] Hep B, Adol or Pedi Dosage 2000 00:00:00 Completed [facility] DTAP 2000 00:00:00 Completed [facility] HIB 4 Dose Schedule 2000 00:00:00 Completed [facility] Hep B, Adol or Pedi Dosage 2000 00:00:00 Completed [facility] Polio (IPV/OPV) 2000 00:00:00 Completed [facility] Polio (IPV/OPV) 2000 00:00:00 Completed [facility] DTAP 2000 00:00:00 Completed [facility] HIB 4 Dose Schedule 2000 00:00:00 Completed [facility] Hep B, Adol or Pedi Dosage 2000 00:00:00 Completed [facility] Polio (IPV/OPV) 2000 00:00:00 Completed [facility] DTAP 2000 00:00:00 Completed [facility] HIB 4 Dose Schedule 2000 00:00:00 Completed [facility] Hep B, Adol or Pedi Dosage 2000 00:00:00 Completed [facility] Polio (IPV/OPV) 2000 00:00:00 Completed [facility] DTAP 2000 00:00:00 Completed [facility] HIB 4 Dose Schedule 2000 00:00:00 Completed [facility] Hep B, Adol or Pedi Dosage 2000 00:00:00 Completed [facility] Polio (IPV/OPV) 2000 00:00:00 Completed [facility] DTAP 2000 00:00:00 Completed [facility] HIB 4 Dose Schedule 2000 00:00:00 Completed [facility] Hep B, Adol or Pedi Dosage 2000 00:00:00 Completed [facility] Polio (IPV/OPV) 2000 00:00:00 Completed [facility] DTAP 2000 00:00:00 Completed [facility] DTAP 2000 00:00:00 Completed [facility] HIB 4 Dose Schedule 2000 00:00:00 Completed [facility] Hep B, Adol or Pedi Dosage 2000 00:00:00 Completed [facility] Polio (IPV/OPV) 2000 00:00:00 Completed [facility] HIB 4 Dose Schedule 2000 00:00:00 Completed [facility] DTAP 2000 00:00:00 Completed [facility] HIB 4 Dose Schedule 2000 00:00:00 Completed [facility] Hep B, Adol or Pedi Dosage 2000 00:00:00 Completed [facility] Polio (IPV/OPV) 2000 00:00:00 Completed [facility] DTAP 2000 00:00:00 Completed [facility] HIB 4 Dose Schedule 2000 00:00:00 Completed [facility] Hep B, Adol or Pedi Dosage 2000 00:00:00 Completed [facility] Polio (IPV/OPV) 2000 00:00:00 Completed [facility] Hep B, Adol or Pedi Dosage 2000 00:00:00 Completed [facility] DTAP 2000 00:00:00 Completed [facility] HIB 4 Dose Schedule 2000 00:00:00 Completed [facility] Hep B, Adol or Pedi Dosage 2000 00:00:00 Completed [facility] Polio (IPV/OPV) 2000 00:00:00 Completed [facility] DTAP 2000 00:00:00 Completed [facility] HIB 4 Dose Schedule 2000 00:00:00 Completed [facility] Hep B, Adol or Pedi Dosage 2000 00:00:00 Completed [facility] Polio (IPV/OPV) 2000 00:00:00 Completed [facility] Polio (IPV/OPV) 2000 00:00:00 Completed [facility] DTAP 2000 00:00:00 Completed [facility] HIB 4 Dose Schedule 2000 00:00:00 Completed [facility] Hep B, Adol or Pedi Dosage 2000 00:00:00 Completed [facility] Polio (IPV/OPV) 2000 00:00:00 Completed [facility] DTAP 2000 00:00:00 Completed [facility] HIB 4 Dose Schedule 2000 00:00:00 Completed [facility] Hep B, Adol or Pedi Dosage 2000 00:00:00 Completed [facility] Polio (IPV/OPV) 2000 00:00:00 Completed [facility] DTAP 2000 00:00:00 Completed [facility] HIB 4 Dose Schedule 2000 00:00:00 Completed [facility] Hep B, Adol or Pedi Dosage 2000 00:00:00 Completed [facility] Polio (IPV/OPV) 2000 00:00:00 Completed [facility] DTAP 2000 00:00:00 Completed [facility] HIB 4 Dose Schedule 2000 00:00:00 Completed [facility] Hep B, Adol or Pedi Dosage 2000 00:00:00 Completed [facility] Polio (IPV/OPV) 2000 00:00:00 Completed [facility] DTAP 2000 00:00:00 Completed [facility] HIB 4 Dose Schedule 2000 00:00:00 Completed [facility] Hep B, Adol or Pedi Dosage 2000 00:00:00 Completed [facility] Polio (IPV/OPV) 2000 00:00:00 Completed [facility] DTAP 2000 00:00:00 Completed [facility] HIB 4 Dose Schedule 2000 00:00:00 Completed [facility] Hep B, Adol or Pedi Dosage 2000 00:00:00 Completed [facility] DTAP 2000 00:00:00 Completed [facility] Polio (IPV/OPV) 2000 00:00:00 Completed [facility] DTAP 2000 00:00:00 Completed [facility] HIB 4 Dose Schedule 2000 00:00:00 Completed [facility] Hep B, Adol or Pedi Dosage 2000 00:00:00 Completed [facility] HIB 4 Dose Schedule 2000 00:00:00 Completed [facility] Polio (IPV/OPV) 2000 00:00:00 Completed [facility] DTAP 2000 00:00:00 Completed [facility] Hep B, Adol or Pedi Dosage 2000 00:00:00 Completed [facility] HIB 4 Dose Schedule 2000 00:00:00 Completed [facility] Hep B, Adol or Pedi Dosage 2000 00:00:00 Completed [facility] Polio (IPV/OPV) 2000 00:00:00 Completed [facility] DTAP 2000 00:00:00 Completed [facility] HIB 4 Dose Schedule 2000 00:00:00 Completed [facility] Hep B, Adol or Pedi Dosage 2000 00:00:00 Completed [facility] Polio (IPV/OPV) 2000 00:00:00 Completed [facility] Polio (IPV/OPV) 2000 00:00:00 Completed [facility] DTAP 2000 00:00:00 Completed [facility] HIB 4 Dose Schedule 2000 00:00:00 Completed [facility] Hep B, Adol or Pedi Dosage 2000 00:00:00 Completed [facility] Polio (IPV/OPV) 2000 00:00:00 Completed [facility] DTAP 2000 00:00:00 Completed [facility] HIB 4 Dose Schedule 2000 00:00:00 Completed [facility] Hep B, Adol or Pedi Dosage 2000 00:00:00 Completed [facility] Polio (IPV/OPV) 2000 00:00:00 Completed [facility] DTAP 2000 00:00:00 Completed [facility] HIB 4 Dose Schedule 2000 00:00:00 Completed [facility] Hep B, Adol or Pedi Dosage 2000 00:00:00 Completed [facility] DTAP 2000 00:00:00 Completed HIB 4 Dose Schedule 2000 00:00:00 Completed Polio (IPV/OPV) 2000 00:00:00 Completed [facility] Hep B, Adol or Pedi Dosage 2000 00:00:00 Completed Polio (IPV/OPV) 2000 00:00:00 Completed DTAP 2000 00:00:00 Completed [facility] HIB 4 Dose Schedule 2000 00:00:00 Completed [facility] Hep B, Adol or Pedi Dosage 2000 00:00:00 Completed [facility] Polio (IPV/OPV) 2000 00:00:00 Completed [facility] DTAP 2000 00:00:00 Completed [facility] HIB 4 Dose Schedule 2000 00:00:00 Completed [facility] Hep B, Adol or Pedi Dosage 2000 00:00:00 Completed [facility] Polio (IPV/OPV) 2000 00:00:00 Completed [facility] DTAP 2000 00:00:00 Completed [facility] HIB 4 Dose Schedule 2000 00:00:00 Completed [facility] Hep B, Adol or Pedi Dosage 2000 00:00:00 Completed [facility] Polio (IPV/OPV) 2000 00:00:00 Completed [facility] DTAP 2000 00:00:00 Completed [facility] HIB 4 Dose Schedule 2000 00:00:00 Completed [facility] Hep B, Adol or Pedi Dosage 2000 00:00:00 Completed [facility] Polio (IPV/OPV) 2000 00:00:00 Completed [facility] Hep B, Adol or Pedi Dosage 2000 00:00:00 Completed [facility] Hep B, Adol or Pedi Dosage 2000 00:00:00 Completed [facility] Hep B, Adol or Pedi Dosage 2000 00:00:00 Completed [facility] Hep B, Adol or Pedi Dosage 2000 00:00:00 Completed [facility] Hep B, Adol or Pedi Dosage 2000 00:00:00 Completed [facility] Hep B, Adol or Pedi Dosage 2000 00:00:00 Completed [facility] Hep B, Adol or Pedi Dosage 2000 00:00:00 Completed [facility] Hep B, Adol or Pedi Dosage 2000 00:00:00 Completed [facility] Hep B, Adol or Pedi Dosage 2000 00:00:00 Completed [facility] Hep B, Adol or Pedi Dosage 2000 00:00:00 Completed [facility] Hep B, Adol or Pedi Dosage 2000 00:00:00 Completed [facility] Hep B, Adol or Pedi Dosage 2000 00:00:00 Completed [facility] Hep B, Adol or Pedi Dosage 2000 00:00:00 Completed [facility] Hep B, Adol or Pedi Dosage 2000 00:00:00 Completed [facility] Hep B, Adol or Pedi Dosage 2000 00:00:00 Completed [facility] Hep B, Adol or Pedi Dosage 2000 00:00:00 Completed [facility] Hep B, Adol or Pedi Dosage 2000 00:00:00 Completed [facility] Hep B, Adol or Pedi Dosage 2000 00:00:00 Completed [facility] Hep B, Adol or Pedi Dosage 2000 00:00:00 Completed [facility] Hep B, Adol or Pedi Dosage 2000 00:00:00 Completed [facility] Hep B, Adol or Pedi Dosage 2000 00:00:00 Completed [facility] Hep B, Adol or Pedi Dosage 2000 00:00:00 Completed [facility] Hep B, Adol or Pedi Dosage 2000 00:00:00 Completed [facility] Hep B, Adol or Pedi Dosage 2000 00:00:00 Completed [facility] Hep B, Adol or Pedi Dosage 2000 00:00:00 Completed [facility] Hep B, Adol or Pedi Dosage 2000 00:00:00 Completed [facility] Hep B, Adol or Pedi Dosage 2000 00:00:00 Completed [facility] Hep B, Adol or Pedi Dosage 2000 00:00:00 Completed [facility] Hep B, Adol or Pedi Dosage 2000 00:00:00 Completed [facility] Hep B, Adol or Pedi Dosage 2000 00:00:00 Completed [facility] Hep B, Adol or Pedi Dosage 2000 00:00:00 Completed [facility] Hep B, Adol or Pedi Dosage 2000 00:00:00 Completed [facility] Hep B, Adol or Pedi Dosage 2000 00:00:00 Completed [facility] Hep B, Adol or Pedi Dosage 2000 00:00:00 Completed [facility] Hep B, Adol or Pedi Dosage 2000 00:00:00 Completed [facility] Hep B, Adol or Pedi Dosage 2000 00:00:00 Completed [facility] Hep B, Adol or Pedi Dosage 2000 00:00:00 Completed [facility] Hep B, Adol or Pedi Dosage 2000 00:00:00 Completed [facility] Hep B, Adol or Pedi Dosage 2000 00:00:00 Completed [facility] Hep B, Adol or Pedi Dosage 2000 00:00:00 Completed [facility] Hep B, Adol or Pedi Dosage 2000 00:00:00 Completed [facility] Hep B, Adol or Pedi Dosage 2000 00:00:00 Completed [facility] Hep B, Adol or Pedi Dosage 2000 00:00:00 Completed [facility] Hep B, Adol or Pedi Dosage 2000 00:00:00 Completed [facility] Hep B, Adol or Pedi Dosage 2000 00:00:00 Completed [facility] Hep B, Adol or Pedi Dosage 2000 00:00:00 Completed [facility] Hep B, Adol or Pedi Dosage 2000 00:00:00 Completed [facility] Hep B, Adol or Pedi Dosage 2000 00:00:00 Completed [facility] Hep B, Adol or Pedi Dosage 2000 00:00:00 Completed [facility] Hep B, Adol or Pedi Dosage 2000 00:00:00 Completed [facility] Hep B, Adol or Pedi Dosage 2000 00:00:00 Completed [facility] Hep B, Adol or Pedi Dosage 2000 00:00:00 Completed [facility] Hep B, Adol or Pedi Dosage 2000 00:00:00 Completed [facility] Hep B, Adol or Pedi Dosage 2000 00:00:00 Completed [facility] Hep B, Adol or Pedi Dosage 2000 00:00:00 Completed [facility] Hep B, Adol or Pedi Dosage 2000 00:00:00 Completed [facility] Hep B, Adol or Pedi Dosage 2000 00:00:00 Completed [facility] Hep B, Adol or Pedi Dosage 2000 00:00:00 Completed [facility] Hep B, Adol or Pedi Dosage 2000 00:00:00 Completed [facility] Hep B, Adol or Pedi Dosage 2000 00:00:00 Completed [facility] Hep B, Adol or Pedi Dosage 2000 00:00:00 Completed [facility] Hep B, Adol or Pedi Dosage 2000 00:00:00 Completed [facility] Hep B, Adol or Pedi Dosage 2000 00:00:00 Completed [facility] Hep B, Adol or Pedi Dosage 2000 00:00:00 Completed [facility] Hep B, Adol or Pedi Dosage 2000 00:00:00 Completed [facility] Hep B, Adol or Pedi Dosage 2000 00:00:00 Completed [facility] Hep B, Adol or Pedi Dosage 2000 00:00:00 Completed [facility] Hep B, Adol or Pedi Dosage 2000 00:00:00 Completed [facility] Hep B, Adol or Pedi Dosage 2000 00:00:00 Completed [facility] Hep B, Adol or Pedi Dosage 2000 00:00:00 Completed [facility] Hep B, Adol or Pedi Dosage 2000 00:00:00 Completed [facility] Hep B, Adol or Pedi Dosage 2000 00:00:00 Completed [facility] Hep B, Adol or Pedi Dosage 2000 00:00:00 Completed [facility] Hep B, Adol or Pedi Dosage 2000 00:00:00 Completed [facility] Hep B, Adol or Pedi Dosage 2000 00:00:00 Completed [facility] Hep B, Adol or Pedi Dosage 2000 00:00:00 Completed [facility] Hep B, Adol or Pedi Dosage 2000 00:00:00 Completed [facility] Hep B, Adol or Pedi Dosage 2000 00:00:00 Completed [facility] Hep B, Adol or Pedi Dosage 2000 00:00:00 Completed [facility] Hep B, Adol or Pedi Dosage 2000 00:00:00 Completed [facility] Hep B, Adol or Pedi Dosage 2000 00:00:00 Completed [facility] Hep B, Adol or Pedi Dosage 2000 00:00:00 Completed [facility] Hep B, Adol or Pedi Dosage 2000 00:00:00 Completed [facility] Hep B, Adol or Pedi Dosage 2000 00:00:00 Completed [facility] Hep B, Adol or Pedi Dosage 2000 00:00:00 Completed [facility] Hep B, Adol or Pedi Dosage 2000 00:00:00 Completed [facility] Hep B, Adol or Pedi Dosage 2000 00:00:00 Completed [facility] Hep B, Adol or Pedi Dosage 2000 00:00:00 Completed [facility] Hep B, Adol or Pedi Dosage 2000 00:00:00 Completed [facility] Hep B, Adol or Pedi Dosage 2000 00:00:00 Completed [facility] Hep B, Adol or Pedi Dosage 2000 00:00:00 Completed [facility] Hep B, Adol or Pedi Dosage 2000 00:00:00 Completed [facility] Hep B, Adol or Pedi Dosage 2000 00:00:00 Completed [facility] Hep B, Adol or Pedi Dosage 2000 00:00:00 Completed [facility] Hep B, Adol or Pedi Dosage 2000 00:00:00 Completed [facility] Hep B, Adol or Pedi Dosage 2000 00:00:00 Completed [facility] Hep B, Adol or Pedi Dosage 2000 00:00:00 Completed [facility] Hep B, Adol or Pedi Dosage 2000 00:00:00 Completed [facility] Hep B, Adol or Pedi Dosage 2000 00:00:00 Completed [facility] Hep B, Adol or Pedi Dosage 2000 00:00:00 Completed [facility] Hep B, Adol or Pedi Dosage 2000 00:00:00 Completed [facility] Hep B, Adol or Pedi Dosage 2000 00:00:00 Completed [facility] Hep B, Adol or Pedi Dosage 2000 00:00:00 Completed [facility] Hep B, Adol or Pedi Dosage 2000 00:00:00 Completed [facility] Hep B, Adol or Pedi Dosage 2000 00:00:00 Completed [facility] Hep B, Adol or Pedi Dosage 2000 00:00:00 Completed [facility] Hep B, Adol or Pedi Dosage 2000 00:00:00 Completed [facility] Hep B, Adol or Pedi Dosage 2000 00:00:00 Completed [facility] Hep B, Adol or Pedi Dosage 2000 00:00:00 Completed [facility] Hep B, Adol or Pedi Dosage 2000 00:00:00 Completed [facility] Hep B, Adol or Pedi Dosage 2000 00:00:00 Completed [facility] Hep B, Adol or Pedi Dosage 2000 00:00:00 Completed [facility] Hep B, Adol or Pedi Dosage 2000 00:00:00 Completed [facility] Hep B, Adol or Pedi Dosage 2000 00:00:00 Completed [facility] Hep B, Adol or Pedi Dosage 2000 00:00:00 Completed [facility] Hep B, Adol or Pedi Dosage 2000 00:00:00 Completed [facility] Hep B, Adol or Pedi Dosage 2000 00:00:00 Completed [facility] Hep B, Adol or Pedi Dosage 2000 00:00:00 Completed [facility] Hep B, Adol or Pedi Dosage 2000 00:00:00 Completed Hep B, Adol or Pedi Dosage 2000 00:00:00 Completed [facility] Hep B, Adol or Pedi Dosage 2000 00:00:00 Completed [facility] Hep B, Adol or Pedi Dosage 2000 00:00:00 Completed [facility] Hep B, Adol or Pedi Dosage 2000 00:00:00 Completed [facility] Moderna COVID-19 Vaccine Moderna COVID-19 Vaccine Unknown Completed [facility] Moderna COVID-19 Vaccine Moderna COVID-19 Vaccine Unknown Completed [facility] Moderna COVID-19 Vaccine Moderna COVID-19 Vaccine Unknown Completed [facility] Moderna COVID-19 Vaccine Moderna COVID-19 Vaccine Unknown Completed [facility] Moderna COVID-19 Vaccine Moderna COVID-19 Vaccine Unknown Completed [facility] Moderna COVID-19 Vaccine Moderna COVID-19 Vaccine Unknown Completed [facility] Moderna COVID-19 Vaccine Moderna COVID-19 Vaccine Unknown Completed [facility] Moderna COVID-19 Vaccine Moderna COVID-19 Vaccine Unknown Completed [facility] Moderna COVID-19 Vaccine Moderna COVID-19 Vaccine Unknown Completed [facility] Moderna COVID-19 Vaccine Moderna COVID-19 Vaccine Unknown Completed [facility] Moderna COVID-19 Vaccine Moderna COVID-19 Vaccine Unknown Completed [facility] Moderna COVID-19 Vaccine Moderna COVID-19 Vaccine Unknown Completed [facility] Moderna COVID-19 Vaccine Moderna COVID-19 Vaccine Unknown Completed [facility] Moderna COVID-19 Vaccine Moderna COVID-19 Vaccine Unknown Completed [facility] Moderna COVID-19 Vaccine Moderna COVID-19 Vaccine Unknown Completed [facility] Moderna COVID-19 Vaccine Moderna COVID-19 Vaccine Unknown Completed [facility] Moderna COVID-19 Vaccine Moderna COVID-19 Vaccine Unknown Completed [facility] Moderna COVID-19 Vaccine Moderna COVID-19 Vaccine Unknown Completed [facility] Moderna COVID-19 Vaccine Moderna COVID-19 Vaccine Unknown Completed [facility] Moderna COVID-19 Vaccine Moderna COVID-19 Vaccine Unknown Completed [facility] Moderna COVID-19 Vaccine Moderna COVID-19 Vaccine Unknown Completed [facility] Moderna COVID-19 Vaccine Moderna COVID-19 Vaccine Unknown Completed [facility] Moderna COVID-19 Vaccine Moderna COVID-19 Vaccine Unknown Completed [facility] Moderna COVID-19 Vaccine Moderna COVID-19 Vaccine Unknown Completed [facility] Moderna COVID-19 Vaccine Moderna COVID-19 Vaccine Unknown Completed [facility] Moderna COVID-19 Vaccine Moderna COVID-19 Vaccine Unknown Completed [facility] Moderna COVID-19 Vaccine Moderna COVID-19 Vaccine Unknown Completed [facility] Moderna COVID-19 Vaccine Moderna COVID-19 Vaccine Unknown Completed [facility] Moderna COVID-19 Vaccine Moderna COVID-19 Vaccine Unknown Completed [facility] Moderna COVID-19 Vaccine Moderna COVID-19 Vaccine Unknown Completed [facility] DTAP Unknown Completed [facility] HIB 4 Dose Schedule Unknown Completed [facility] HEPATITIS A Unknown Completed [facility] Hep B, Adol or Pedi Dosage Unknown Completed [facility] Meningococcal Vaccine Unknown Completed [facility] MMR Unknown Completed [facility] Pneumococcal 7 Conjugate, PCV7 (Prevnar7) Unknown Completed [facility] Polio (IPV/OPV) Unknown Completed [facility] TDAP Unknown Completed [facility] Varicella (varivax)(chicken pox) Unknown Completed [facility] HPV Unknown Completed [facility] Influenza Virus Vaccine (3+ yrs) Unknown Completed [facility] Influenza Virus Vaccine Quad .5 mL IM 6+ MO (FLUZONE/FLULAVAL/F LUARIX) Unknown Completed [facility] DTAP Unknown Completed [facility] HIB 4 Dose Schedule Unknown Completed [facility] HEPATITIS A Unknown Completed [facility] Hep B, Adol or Pedi Dosage Unknown Completed [facility] Meningococcal Vaccine Unknown Completed [facility] MMR Unknown Completed [facility] Pneumococcal 7 Conjugate, PCV7 (Prevnar7) Unknown Completed [facility] Polio (IPV/OPV) Unknown Completed [facility] TDAP Unknown Completed [facility] Varicella (varivax)(chicken pox) Unknown Completed [facility] HPV Unknown Completed [facility] Influenza Virus Vaccine (3+ yrs) Unknown Completed [facility] Influenza Virus Vaccine Quad .5 mL IM 6+ MO (FLUZONE/FLULAVAL/F LUARIX) Unknown Completed [facility] DTAP Unknown Completed [facility] HIB 4 Dose Schedule Unknown Completed [facility] HEPATITIS A Unknown Completed [facility] Hep B, Adol or Pedi Dosage Unknown Completed [facility] Meningococcal Vaccine Unknown Completed [facility] MMR Unknown Completed [facility] Pneumococcal 7 Conjugate, PCV7 (Prevnar7) Unknown Completed [facility] Polio (IPV/OPV) Unknown Completed [facility] TDAP Unknown Completed [facility] Varicella (varivax)(chicken pox) Unknown Completed [facility] HPV Unknown Completed [facility] Influenza Virus Vaccine (3+ yrs) Unknown Completed [facility] Influenza Virus Vaccine Quad .5 mL IM 6+ MO (FLUZONE/FLULAVAL/F LUARIX) Unknown Completed [facility] DTAP Unknown Completed [facility] HIB 4 Dose Schedule Unknown Completed [facility] HEPATITIS A Unknown Completed [facility] Hep B, Adol or Pedi Dosage Unknown Completed [facility] Meningococcal Vaccine Unknown Completed [facility] MMR Unknown Completed [facility] Pneumococcal 7 Conjugate, PCV7 (Prevnar7) Unknown Completed [facility] Polio (IPV/OPV) Unknown Completed [facility] TDAP Unknown Completed [facility] Varicella (varivax)(chicken pox) Unknown Completed [facility] HPV Unknown Completed [facility] Influenza Virus Vaccine (3+ yrs) Unknown Completed [facility] Influenza Virus Vaccine Quad .5 mL IM 6+ MO (FLUZONE/FLULAVAL/F LUARIX) Unknown Completed [facility] DTAP Unknown Completed [facility] HIB 4 Dose Schedule Unknown Completed [facility] HEPATITIS A Unknown Completed [facility] Hep B, Adol or Pedi Dosage Unknown Completed [facility] Meningococcal Vaccine Unknown Completed [facility] MMR Unknown Completed [facility] Pneumococcal 7 Conjugate, PCV7 (Prevnar7) Unknown Completed [facility] Polio (IPV/OPV) Unknown Completed [facility] TDAP Unknown Completed [facility] Varicella (varivax)(chicken pox) Unknown Completed [facility] HPV Unknown Completed [facility] Influenza Virus Vaccine (3+ yrs) Unknown Completed [facility] Influenza Virus Vaccine Quad .5 mL IM 6+ MO (FLUZONE/FLULAVAL/F LUARIX) Unknown Completed [facility] DTAP Unknown Completed [facility] HIB 4 Dose Schedule Unknown Completed [facility] HEPATITIS A Unknown Completed [facility] Hep B, Adol or Pedi Dosage Unknown Completed [facility] Meningococcal Vaccine Unknown Completed [facility] MMR Unknown Completed [facility] Pneumococcal 7 Conjugate, PCV7 (Prevnar7) Unknown Completed [facility] Polio (IPV/OPV) Unknown Completed [facility] TDAP Unknown Completed [facility] Varicella (varivax)(chicken pox) Unknown Completed [facility] HPV Unknown Completed [facility] Influenza Virus Vaccine (3+ yrs) Unknown Completed [facility] Influenza Virus Vaccine Quad .5 mL IM 6+ MO (FLUZONE/FLULAVAL/F LUARIX) Unknown Completed [facility] DTAP Unknown Completed [facility] HIB 4 Dose Schedule Unknown Completed [facility] HEPATITIS A Unknown Completed [facility] Hep B, Adol or Pedi Dosage Unknown Completed [facility] Meningococcal Vaccine Unknown Completed [facility] MMR Unknown Completed [facility] Pneumococcal 7 Conjugate, PCV7 (Prevnar7) Unknown Completed [facility] Polio (IPV/OPV) Unknown Completed [facility] TDAP Unknown Completed [facility] Varicella (varivax)(chicken pox) Unknown Completed [facility] HPV Unknown Completed [facility] Influenza Virus Vaccine (3+ yrs) Unknown Completed [facility] Influenza Virus Vaccine Quad .5 mL IM 6+ MO (FLUZONE/FLULAVAL/F LUARIX) Unknown Completed [facility] DTAP Unknown Completed [facility] HIB 4 Dose Schedule Unknown Completed [facility] HEPATITIS A Unknown Completed [facility] Hep B, Adol or Pedi Dosage Unknown Completed [facility] Meningococcal Vaccine Unknown Completed [facility] MMR Unknown Completed [facility] Pneumococcal 7 Conjugate, PCV7 (Prevnar7) Unknown Completed [facility] Polio (IPV/OPV) Unknown Completed [facility] TDAP Unknown Completed [facility] Varicella (varivax)(chicken pox) Unknown Completed [facility] HPV Unknown Completed [facility] Influenza Virus Vaccine (3+ yrs) Unknown Completed [facility] Influenza Virus Vaccine Quad .5 mL IM 6+ MO (FLUZONE/FLULAVAL/F LUARIX) Unknown Completed [facility] DTAP Unknown Completed [facility] HIB 4 Dose Schedule Unknown Completed [facility] HEPATITIS A Unknown Completed [facility] Hep B, Adol or Pedi Dosage Unknown Completed [facility] Meningococcal Vaccine Unknown Completed [facility] MMR Unknown Completed [facility] Pneumococcal 7 Conjugate, PCV7 (Prevnar7) Unknown Completed [facility] Polio (IPV/OPV) Unknown Completed [facility] TDAP Unknown Completed [facility] Varicella (varivax)(chicken pox) Unknown Completed [facility] HPV Unknown Completed [facility] Influenza Virus Vaccine (3+ yrs) Unknown Completed [facility] Influenza Virus Vaccine Quad .5 mL IM 6+ MO (FLUZONE/FLULAVAL/F LUARIX) Unknown Completed [facility] DTAP Unknown Completed [facility] HIB 4 Dose Schedule Unknown Completed [facility] HEPATITIS A Unknown Completed [facility] Hep B, Adol or Pedi Dosage Unknown Completed [facility] Meningococcal Vaccine Unknown Completed [facility] MMR Unknown Completed [facility] Pneumococcal 7 Conjugate, PCV7 (Prevnar7) Unknown Completed [facility] Polio (IPV/OPV) Unknown Completed [facility] TDAP Unknown Completed [facility] Varicella (varivax)(chicken pox) Unknown Completed [facility] HPV Unknown Completed [facility] Influenza Virus Vaccine (3+ yrs) Unknown Completed [facility] Influenza Virus Vaccine Quad .5 mL IM 6+ MO (FLUZONE/FLULAVAL/F LUARIX) Unknown Completed [facility] DTAP Unknown Completed [facility] HIB 4 Dose Schedule Unknown Completed [facility] HEPATITIS A Unknown Completed [facility] Hep B, Adol or Pedi Dosage Unknown Completed [facility] Meningococcal Vaccine Unknown Completed [facility] MMR Unknown Completed [facility] Pneumococcal 7 Conjugate, PCV7 (Prevnar7) Unknown Completed [facility] Polio (IPV/OPV) Unknown Completed [facility] TDAP Unknown Completed [facility] Varicella (varivax)(chicken pox) Unknown Completed [facility] HPV Unknown Completed [facility] Influenza Virus Vaccine (3+ yrs) Unknown Completed [facility] Influenza Virus Vaccine Quad .5 mL IM 6+ MO (FLUZONE/FLULAVAL/F LUARIX) Unknown Completed [facility] DTAP Unknown Completed [facility] HIB 4 Dose Schedule Unknown Completed [facility] HEPATITIS A Unknown Completed [facility] Hep B, Adol or Pedi Dosage Unknown Completed [facility] Meningococcal Vaccine Unknown Completed [facility] MMR Unknown Completed [facility] Pneumococcal 7 Conjugate, PCV7 (Prevnar7) Unknown Completed [facility] Polio (IPV/OPV) Unknown Completed [facility] TDAP Unknown Completed [facility] Varicella (varivax)(chicken pox) Unknown Completed [facility] HPV Unknown Completed [facility] Influenza Virus Vaccine (3+ yrs) Unknown Completed [facility] Influenza Virus Vaccine Quad .5 mL IM 6+ MO (FLUZONE/FLULAVAL/F LUARIX) Unknown Completed [facility] DTAP Unknown Completed [facility] HIB 4 Dose Schedule Unknown Completed [facility] HEPATITIS A Unknown Completed [facility] Hep B, Adol or Pedi Dosage Unknown Completed [facility] Meningococcal Vaccine Unknown Completed [facility] MMR Unknown Completed [facility] Pneumococcal 7 Conjugate, PCV7 (Prevnar7) Unknown Completed [facility] Polio (IPV/OPV) Unknown Completed [facility] TDAP Unknown Completed [facility] Varicella (varivax)(chicken pox) Unknown Completed [facility] HPV Unknown Completed [facility] Influenza Virus Vaccine (3+ yrs) Unknown Completed [facility] Influenza Virus Vaccine Quad .5 mL IM 6+ MO (FLUZONE/FLULAVAL/F LUARIX) Unknown Completed [facility] DTAP Unknown Completed [facility] HIB 4 Dose Schedule Unknown Completed [facility] HEPATITIS A Unknown Completed [facility] Hep B, Adol or Pedi Dosage Unknown Completed [facility] Meningococcal Vaccine Unknown Completed [facility] MMR Unknown Completed [facility] Pneumococcal 7 Conjugate, PCV7 (Prevnar7) Unknown Completed [facility] Polio (IPV/OPV) Unknown Completed [facility] TDAP Unknown Completed [facility] Varicella (varivax)(chicken pox) Unknown Completed [facility] HPV Unknown Completed [facility] Influenza Virus Vaccine (3+ yrs) Unknown Completed [facility] Influenza Virus Vaccine Quad .5 mL IM 6+ MO (FLUZONE/FLULAVAL/F LUARIX) Unknown Completed [facility] DTAP Unknown Completed [facility] HIB 4 Dose Schedule Unknown Completed [facility] HEPATITIS A Unknown Completed [facility] Hep B, Adol or Pedi Dosage Unknown Completed [facility] Meningococcal Vaccine Unknown Completed [facility] MMR Unknown Completed [facility] Pneumococcal 7 Conjugate, PCV7 (Prevnar7) Unknown Completed [facility] Polio (IPV/OPV) Unknown Completed [facility] TDAP Unknown Completed [facility] Varicella (varivax)(chicken pox) Unknown Completed [facility] HPV Unknown Completed [facility] Influenza Virus Vaccine (3+ yrs) Unknown Completed [facility] Influenza Virus Vaccine Quad .5 mL IM 6+ MO (FLUZONE/FLULAVAL/F LUARIX) Unknown Completed [facility] DTAP Unknown Completed [facility] HIB 4 Dose Schedule Unknown Completed [facility] HEPATITIS A Unknown Completed [facility] Hep B, Adol or Pedi Dosage Unknown Completed [facility] Meningococcal Vaccine Unknown Completed [facility] MMR Unknown Completed [facility] Pneumococcal 7 Conjugate, PCV7 (Prevnar7) Unknown Completed [facility] Polio (IPV/OPV) Unknown Completed [facility] TDAP Unknown Completed [facility] Varicella (varivax)(chicken pox) Unknown Completed [facility] HPV Unknown Completed [facility] Influenza Virus Vaccine (3+ yrs) Unknown Completed [facility] Influenza Virus Vaccine Quad .5 mL IM 6+ MO (FLUZONE/FLULAVAL/F LUARIX) Unknown Completed [facility] DTAP Unknown Completed [facility] HIB 4 Dose Schedule Unknown Completed [facility] HEPATITIS A Unknown Completed [facility] Hep B, Adol or Pedi Dosage Unknown Completed [facility] Meningococcal Vaccine Unknown Completed [facility] MMR Unknown Completed [facility] Pneumococcal 7 Conjugate, PCV7 (Prevnar7) Unknown Completed [facility] Polio (IPV/OPV) Unknown Completed [facility] TDAP Unknown Completed [facility] Varicella (varivax)(chicken pox) Unknown Completed [facility] HPV Unknown Completed [facility] Influenza Virus Vaccine (3+ yrs) Unknown Completed [facility] Influenza Virus Vaccine Quad .5 mL IM 6+ MO (FLUZONE/FLULAVAL/F LUARIX) Unknown Completed [facility] DTAP Unknown Completed [facility] HIB 4 Dose Schedule Unknown Completed [facility] HEPATITIS A Unknown Completed [facility] Hep B, Adol or Pedi Dosage Unknown Completed [facility] Meningococcal Vaccine Unknown Completed [facility] MMR Unknown Completed [facility] Pneumococcal 7 Conjugate, PCV7 (Prevnar7) Unknown Completed [facility] Polio (IPV/OPV) Unknown Completed [facility] TDAP Unknown Completed [facility] Varicella (varivax)(chicken pox) Unknown Completed [facility] HPV Unknown Completed [facility] Influenza Virus Vaccine (3+ yrs) Unknown Completed [facility] Influenza Virus Vaccine Quad .5 mL IM 6+ MO (FLUZONE/FLULAVAL/F LUARIX) Unknown Completed [facility] DTAP Unknown [facility] [facility] 4 Dose Schedule Unknown Completed [facility] HEPATITIS A Unknown Completed [facility] Hep B, Adol or Pedi Dosage Unknown Completed [facility] Meningococcal Vaccine Unknown Completed [facility] MMR Unknown Completed [facility] Pneumococcal 7 Conjugate, PCV7 (Prevnar7) Unknown Completed [facility] Polio (IPV/OPV) Unknown Completed [facility] TDAP Unknown Completed [facility] Varicella (varivax)(chicken pox) Unknown Completed [facility] HPV Unknown Completed [facility] Influenza Virus Vaccine (3+ yrs) Unknown Completed [facility] Influenza Virus Vaccine Quad .5 mL IM 6+ MO (FLUZONE/FLULAVAL/F LUARIX) Unknown Completed [facility] DTAP Unknown Completed [facility] HIB 4 Dose Schedule Unknown Completed [facility] HEPATITIS A Unknown Completed [facility] Hep B, Adol or Pedi Dosage Unknown Completed [facility] Meningococcal Vaccine Unknown Completed [facility] MMR Unknown Completed [facility] Pneumococcal 7 Conjugate, PCV7 (Prevnar7) Unknown Completed [facility] Polio (IPV/OPV) Unknown Completed [facility] TDAP Unknown Completed [facility] Varicella (varivax)(chicken pox) Unknown Completed [facility] HPV Unknown Completed [facility] Influenza Virus Vaccine (3+ yrs) Unknown Completed [facility] Influenza Virus Vaccine Quad .5 mL IM 6+ MO (FLUZONE/FLULAVAL/F LUARIX) Unknown Completed [facility] DTAP Unknown Completed [facility] HIB 4 Dose Schedule Unknown Completed [facility] HEPATITIS A Unknown Completed [facility] Hep B, Adol or Pedi Dosage Unknown Completed [facility] Meningococcal Vaccine Unknown Completed [facility] MMR Unknown Completed [facility] Pneumococcal 7 Conjugate, PCV7 (Prevnar7) Unknown Completed [facility] Polio (IPV/OPV) Unknown Completed [facility] TDAP Unknown Completed [facility] Varicella (varivax)(chicken pox) Unknown Completed [facility] HPV Unknown Completed [facility] Influenza Virus Vaccine (3+ yrs) Unknown Completed [facility] Influenza Virus Vaccine Quad .5 mL IM 6+ MO (FLUZONE/FLULAVAL/F LUARIX) Unknown Completed [facility] DTAP Unknown Completed [facility] HIB 4 Dose Schedule Unknown Completed [facility] HEPATITIS A Unknown Completed [facility] Hep B, Adol or Pedi Dosage Unknown Completed [facility] Meningococcal Vaccine Unknown Completed [facility] MMR Unknown Completed [facility] Pneumococcal 7 Conjugate, PCV7 (Prevnar7) Unknown Completed [facility] Polio (IPV/OPV) Unknown Completed [facility] TDAP Unknown Completed [facility] Varicella (varivax)(chicken pox) Unknown Completed [facility] HPV Unknown Completed [facility] Influenza Virus Vaccine (3+ yrs) Unknown Completed [facility] Influenza Virus Vaccine Quad .5 mL IM 6+ MO (FLUZONE/FLULAVAL/F LUARIX) Unknown Completed [facility] DTAP Unknown Completed [facility] HIB 4 Dose Schedule Unknown Completed [facility] HEPATITIS A Unknown Completed [facility] Hep B, Adol or Pedi Dosage Unknown Completed [facility] Meningococcal Vaccine Unknown Completed [facility] MMR Unknown Completed [facility] Pneumococcal 7 Conjugate, PCV7 (Prevnar7) Unknown Completed [facility] Polio (IPV/OPV) Unknown Completed [facility] TDAP Unknown Completed [facility] Varicella (varivax)(chicken pox) Unknown Completed [facility] HPV Unknown Completed [facility] Influenza Virus Vaccine (3+ yrs) Unknown Completed [facility] Influenza Virus Vaccine Quad .5 mL IM 6+ MO (FLUZONE/FLULAVAL/F LUARIX) Unknown Completed [facility] DTAP Unknown Completed [facility] HIB 4 Dose Schedule Unknown Completed [facility] HEPATITIS A Unknown Completed [facility] Hep B, Adol or Pedi Dosage Unknown Completed [facility] Meningococcal Vaccine Unknown Completed [facility] MMR Unknown Completed [facility] Pneumococcal 7 Conjugate, PCV7 (Prevnar7) Unknown Completed [facility] Polio (IPV/OPV) Unknown Completed [facility] TDAP Unknown Completed [facility] Varicella (varivax)(chicken pox) Unknown Completed [facility] HPV Unknown Completed [facility] Influenza Virus Vaccine (3+ yrs) Unknown Completed [facility] Influenza Virus Vaccine Quad .5 mL IM 6+ MO (FLUZONE/FLULAVAL/F LUARIX) Unknown Completed [facility] DTAP Unknown Completed [facility] HIB 4 Dose Schedule Unknown Completed [facility] HEPATITIS A Unknown Completed [facility] Hep B, Adol or Pedi Dosage Unknown Completed [facility] Meningococcal Vaccine Unknown Completed [facility] MMR Unknown Completed [facility] Pneumococcal 7 Conjugate, PCV7 (Prevnar7) Unknown Completed [facility] Polio (IPV/OPV) Unknown Completed [facility] TDAP Unknown Completed [facility] Varicella (varivax)(chicken pox) Unknown Completed [facility] HPV Unknown Completed [facility] Influenza Virus Vaccine (3+ yrs) Unknown Completed [facility] Influenza Virus Vaccine Quad .5 mL IM 6+ MO (FLUZONE/FLULAVAL/F LUARIX) Unknown Completed [facility] DTAP Unknown Completed [facility] HIB 4 Dose Schedule Unknown Completed [facility] HEPATITIS A Unknown Completed [facility] Hep B, Adol or Pedi Dosage Unknown Completed [facility] Meningococcal Vaccine Unknown Completed [facility] MMR Unknown Completed [facility] Pneumococcal 7 Conjugate, PCV7 (Prevnar7) Unknown Completed [facility] Polio (IPV/OPV) Unknown Completed [facility] TDAP Unknown Completed [facility] Varicella (varivax)(chicken pox) Unknown Completed [facility] HPV Unknown Completed [facility] Influenza Virus Vaccine (3+ yrs) Unknown Completed [facility] Influenza Virus Vaccine Quad .5 mL IM 6+ MO (FLUZONE/FLULAVAL/F LUARIX) Unknown Completed [facility] DTAP Unknown Completed [facility] HIB 4 Dose Schedule Unknown Completed [facility] HEPATITIS A Unknown Completed [facility] Hep B, Adol or Pedi Dosage Unknown Completed [facility] Meningococcal Vaccine Unknown Completed [facility] MMR Unknown Completed [facility] Pneumococcal 7 Conjugate, PCV7 (Prevnar7) Unknown Completed [facility] Polio (IPV/OPV) Unknown Completed [facility] TDAP Unknown Completed [facility] Varicella (varivax)(chicken pox) Unknown Completed [facility] HPV Unknown Completed [facility] Influenza Virus Vaccine (3+ yrs) Unknown Completed [facility] Influenza Virus Vaccine Quad .5 mL IM 6+ MO (FLUZONE/FLULAVAL/F LUARIX) Unknown Completed [facility] DTAP Unknown Completed [facility] HIB 4 Dose Schedule Unknown Completed [facility] HEPATITIS A Unknown Completed [facility] Hep B, Adol or Pedi Dosage Unknown Completed [facility] Meningococcal Vaccine Unknown Completed [facility] MMR Unknown Completed [facility] Pneumococcal 7 Conjugate, PCV7 (Prevnar7) Unknown Completed [facility] Polio (IPV/OPV) Unknown Completed [facility] TDAP Unknown Completed [facility] Varicella (varivax)(chicken pox) Unknown Completed [facility] HPV Unknown Completed [facility] Influenza Virus Vaccine (3+ yrs) Unknown Completed [facility] Influenza Virus Vaccine Quad .5 mL IM 6+ MO (FLUZONE/FLULAVAL/F LUARIX) Unknown Completed [facility] DTAP Unknown Completed [facility] HIB 4 Dose Schedule Unknown Completed [facility] HEPATITIS A Unknown Completed [facility] Hep B, Adol or Pedi Dosage Unknown Completed [facility] Meningococcal Vaccine Unknown Completed [facility] MMR Unknown Completed [facility] Pneumococcal 7 Conjugate, PCV7 (Prevnar7) Unknown Completed [facility] Polio (IPV/OPV) Unknown Completed [facility] TDAP Unknown Completed [facility] Varicella (varivax)(chicken pox) Unknown Completed [facility] HPV Unknown Completed [facility] Influenza Virus Vaccine (3+ yrs) Unknown Completed [facility] Influenza Virus Vaccine Quad .5 mL IM 6+ MO (FLUZONE/FLULAVAL/F LUARIX) Unknown Completed [facility] Meningococcal Vaccine Unknown Completed [facility] TDAP Unknown Completed [facility] Varicella (varivax)(chicken pox) Unknown Completed [facility] Influenza Virus Vaccine (3+ yrs) Unknown Completed [facility] Influenza Virus Vaccine Quad .5 mL IM 6+ MO (FLUZONE/FLULAVAL/F LUARIX) Unknown Completed [facility] DTAP Unknown Completed [facility] HIB 4 Dose Schedule Unknown Completed [facility] HEPATITIS A Unknown Completed [facility] Hep B, Adol or Pedi Dosage Unknown Completed [facility] MMR Unknown Completed [facility] Pneumococcal 7 Conjugate, PCV7 (Prevnar7) Unknown Completed [facility] Polio (IPV/OPV) Unknown Completed [facility] HPV Unknown Completed [facility] DTAP Unknown Completed [facility] HIB 4 Dose Schedule Unknown Completed [facility] HEPATITIS A Unknown Completed [facility] Hep B, Adol or Pedi Dosage Unknown Completed [facility] Meningococcal Vaccine Unknown Completed [facility] MMR Unknown Completed [facility] Pneumococcal 7 Conjugate, PCV7 (Prevnar7) Unknown Completed [facility] Polio (IPV/OPV) Unknown Completed [facility] TDAP Unknown Completed [facility] Varicella (varivax)(chicken pox) Unknown Completed [facility] HPV Unknown Completed [facility] Influenza Virus Vaccine (3+ yrs) Unknown Completed [facility] Influenza Virus Vaccine Quad .5 mL IM 6+ MO (FLUZONE/FLULAVAL/F LUARIX) Unknown Completed [facility] DTAP Unknown Completed [facility] HIB 4 Dose Schedule Unknown Completed [facility]ITIS A [facility], [facility] Dos[facility] Completed [facility] Meningococcal Vaccine Unknown Completed [facility] MMR Unknown Completed [facility] Pneumococcal 7 Conjugate, PCV7 (Prevnar7) Unknown Completed [facility] Polio (IPV/OPV) Unknown Completed [facility] TDAP Unknown Completed [facility] Varicella (varivax)(chicken pox) Unknown Completed [facility] HPV Unknown Completed [facility] Influenza Virus Vaccine (3+ yrs) Unknown Completed [facility] Influenza Virus Vaccine Quad .5 mL IM 6+ MO (FLUZONE/FLULAVAL/F LUARIX) Unknown Completed [facility] DTAP Unknown Completed [facility] HIB 4 Dose Schedule Unknown Completed [facility] HEPATITIS A [facility], Adol or Pedi Dosage Unknown Completed [facility] Meningococcal Vaccine Unknown Completed [facility] MMR Unknown Completed [facility] Pneumococcal 7 Conjugate, PCV7 (Prevnar7) Unknown Completed [facility] Polio (IPV/OPV) Unknown Completed [facility] TDAP Unknown Completed [facility] Varicella (varivax)(chicken pox) Unknown Completed [facility] HPV Unknown Completed [facility] Influenza Virus Vaccine (3+ yrs) Unknown Completed [facility] Influenza Virus Vaccine Quad .5 mL IM 6+ MO (FLUZONE/FLULAVAL/F LUARIX) Unknown Completed [facility] DTAP Unknown Completed [facility] HIB 4 Dose Schedule Unknown Completed [facility] HEPATITIS A Unknown Completed [facility] Hep B, Adol or Pedi Dosage Unknown Completed [facility] Meningococcal Vaccine Unknown Completed [facility] MMR Unknown Completed [facility] Pneumococcal 7 Conjugate, PCV7 (Prevnar7) Unknown Completed [facility] Polio (IPV/OPV) Unknown Completed [facility] TDAP Unknown Completed [facility] Varicella (varivax)(chicken pox) Unknown Completed [facility] HPV Unknown Completed [facility] Influenza Virus Vaccine (3+ yrs) Unknown Completed [facility] Influenza Virus Vaccine Quad .5 mL IM 6+ MO (FLUZONE/FLULAVAL/F LUARIX) Unknown Completed [facility] DTAP Unknown Completed [facility] HIB 4 Dose Schedule Unknown Completed [facility] HEPATITIS A Unknown Completed [facility] Hep B, Adol or Pedi Dosage Unknown Completed [facility] Meningococcal Vaccine Unknown Completed [facility] MMR Unknown Completed [facility] Pneumococcal 7 Conjugate, PCV7 (Prevnar7) Unknown Completed [facility] Polio (IPV/OPV) Unknown Completed [facility] TDAP Unknown Completed [facility] Varicella (varivax)(chicken pox) Unknown Completed [facility] HPV Unknown Completed [facility] Influenza Virus Vaccine (3+ yrs) Unknown Completed [facility] Influenza Virus Vaccine Quad .5 mL IM 6+ MO (FLUZONE/FLULAVAL/F LUARIX) Unknown Completed [facility] DTAP Unknown Completed [facility] HIB 4 Dose Schedule Unknown Completed [facility] HEPATITIS A [facility], Adol or Pedi Dosage Unknown Completed [facility] Meningococcal Vaccine Unknown Completed [facility] MMR Unknown Completed [facility] Pneumococcal 7 Conjugate, PCV7 (Prevnar7) Unknown Completed [facility] Polio (IPV/OPV) Unknown Completed [facility] TDAP Unknown Completed [facility] Varicella (varivax)(chicken pox) Unknown Completed [facility] HPV Unknown Completed [facility] Influenza Virus Vaccine (3+ yrs) Unknown Completed [facility] Influenza Virus Vaccine Quad .5 mL IM 6+ MO (FLUZONE/FLULAVAL/F LUARIX) Unknown Completed [facility] DTAP Unknown Completed [facility] HIB 4 Dose Schedule Unknown Completed [facility] HEPATITIS A Unknown Completed [facility] Hep B, Adol or Pedi Dosage Unknown Completed [facility] Meningococcal Vaccine Unknown Completed [facility] MMR Unknown Completed [facility] Pneumococcal 7 Conjugate, PCV7 (Prevnar7) Unknown Completed [facility] Polio (IPV/OPV) Unknown Completed [facility] TDAP Unknown Completed [facility] Varicella (varivax)(chicken pox) Unknown Completed [facility] HPV Unknown Completed [facility] Influenza Virus Vaccine (3+ yrs) Unknown Completed [facility] Influenza Virus Vaccine Quad .5 mL IM 6+ MO (FLUZONE/FLULAVAL/F LUARIX) Unknown Completed [facility] DTAP Unknown Completed [facility] HIB 4 Dose Schedule Unknown Completed [facility] HEPATITIS A Unknown Completed [facility] Hep B, Adol or Pedi Dosage Unknown Completed [facility] Meningococcal Vaccine Unknown Completed [facility] MMR Unknown Completed [facility] Pneumococcal 7 Conjugate, PCV7 (Prevnar7) Unknown Completed [facility] Polio (IPV/OPV) Unknown Completed [facility] TDAP Unknown Completed [facility] Varicella (varivax)(chicken pox) Unknown Completed [facility] HPV Unknown Completed [facility] Influenza Virus Vaccine (3+ yrs) Unknown Completed [facility] Influenza Virus Vaccine Quad .5 mL IM 6+ MO (FLUZONE/FLULAVAL/F LUARIX) Unknown Completed [facility] DTAP Unknown Completed [facility] HIB 4 Dose Schedule Unknown Completed [facility] HEPATITIS A Unknown Completed [facility] Hep B, Adol or Pedi Dosage Unknown Completed [facility] Meningococcal Vaccine Unknown Completed [facility] MMR Unknown Completed [facility] Pneumococcal 7 Conjugate, PCV7 (Prevnar7) Unknown Completed [facility] Polio (IPV/OPV) Unknown Completed [facility] TDAP Unknown Completed [facility] Varicella (varivax)(chicken pox) Unknown Completed [facility] HPV Unknown Completed [facility] Influenza Virus Vaccine (3+ yrs) Unknown Completed [facility] Influenza Virus Vaccine Quad .5 mL IM 6+ MO (FLUZONE/FLULAVAL/F LUARIX) Unknown Completed [facility] DTAP Unknown Completed [facility] HIB 4 Dose Schedule Unknown Completed [facility] HEPATITIS A Unknown Completed [facility] Hep B, Adol or Pedi Dosage Unknown Completed [facility] Meningococcal Vaccine Unknown Completed [facility] MMR Unknown Completed [facility] Pneumococcal 7 Conjugate, PCV7 (Prevnar7) Unknown Completed [facility] Polio (IPV/OPV) Unknown Completed [facility] TDAP Unknown Completed [facility] Varicella (varivax)(chicken pox) Unknown Completed [facility] HPV Unknown Completed [facility] Influenza Virus Vaccine (3+ yrs) Unknown Completed [facility] Influenza Virus Vaccine Quad .5 mL IM 6+ MO (FLUZONE/FLULAVAL/F LUARIX) Unknown Completed [facility] DTAP Unknown Completed [facility] HIB 4 Dose Schedule Unknown Completed [facility] HEPATITIS A Unknown Completed [facility] Hep B, Adol or Pedi Dosage Unknown Completed [facility] Meningococcal Vaccine Unknown Completed [facility] MMR Unknown Completed [facility] Pneumococcal 7 Conjugate, PCV7 (Prevnar7) Unknown Completed [facility] Polio (IPV/OPV) Unknown Completed [facility] TDAP Unknown Completed [facility] Varicella (varivax)(chicken pox) Unknown Completed [facility] HPV Unknown Completed [facility] Influenza Virus Vaccine (3+ yrs) Unknown Completed [facility] Influenza Virus Vaccine Quad .5 mL IM 6+ MO (FLUZONE/FLULAVAL/F LUARIX) Unknown Completed [facility] Vital Signs Vital Name Observation Time Observation Value Comments S ource Systolic blood pressure 2024-11-03 15:38:00 135 mm[Hg] [facility] Diastolic blood pressure 2024-11-03 15:38:00 71 mm[Hg] [facility] Heart rate 2024-11-03 15:37:00 86 /min [facility] Body temperature 2024-11-03 15:37:00 36.61 [facility] Respiratory rate 2024-11-03 15:37:00 18 /min [facility] Body height 2024-11-03 15:37:00 152.4 cm [facility] Body weight 2024-11-03 15:37:00 80.922 kg [facility] BMI 2024-11-03 15:37:00 34.84 kg/m2 [facility] Systolic blood pressure 2024-10-18 17:27:00 115 mm[Hg] [facility] Diastolic blood pressure 2024-10-18 17:27:00 81 mm[Hg] [facility] Heart rate 2024-10-18 17:21:00 89 /min [facility] Body temperature 2024-10-18 17:21:00 36.56 [facility] Respiratory rate 2024-10-18 17:21:00 18 /min [facility] Body height 2024-10-18 17:21:00 152.4 cm [facility] Body weight 2024-10-18 17:21:00 82.101 kg [facility] BMI 2024-10-18 17:21:00 35.35 kg/m2 [facility] height 2024-08-16 13:40:00 60 [in_i] Commo n [facility] weight 2024-08-16 13:40:00 170.0 [lb_av] Co mmon [facility] temperature 2024-08-16 13:40:00 98.4 [degF] Com mon [facility] bmi 2024-08-16 13:40:00 33.2 kg/m2 [facility] oximetry 2024-08-16 13:40:00 97 % [facility] respiratory rate 2024-08-16 13:40:00 18 /min [facility] blood pressure systolic 2024-08-16 13:40:00 137 mm[Hg] [facility] blood pressure diastolic 2024-08-16 13:40:00 86 mm[Hg] [facility] Systolic blood pressure 2024-07-24 16:35:00 131 mm[Hg] [facility] Diastolic blood pressure 2024-07-24 16:35:00 86 mm[Hg] [facility] Heart rate 2024-07-24 16:35:00 126 /[facility] 2024-07-24 16:35:00 37.44 [facility] Respiratory rate 2024-07-24 16:35:00 17 /min [facility] Body height 2024-07-24 16:35:00 152.4 cm [facility] Body weight 2024-07-24 16:35:00 76.913 kg [facility] BMI 2024-07-24 16:35:00 33.12 kg/m2 [facility] Oxygen saturation in Arterial blood by Pulse oximetry 2024-07-24 16:35:00 97 /min [facility] Systolic blood pressure 2024-07-19 16:39:00 132 mm[Hg] [facility] Diastolic blood pressure 2024-07-19 16:39:00 84 mm[Hg] [facility] Heart rate 2024-07-19 16:38:00 100 /min [facility] Body temperature 2024-07-19 16:38:00 36.5 [facility] Body weight 2024-07-19 16:38:00 76.839 kg [facility] BMI 2024-07-19 16:38:00 33.08 kg/m2 [facility] Systolic blood pressure 2024-06-01 21:45:00 163 mm[Hg] [facility] Diastolic blood pressure 2024-06-01 21:45:00 98 mm[Hg] [facility] Heart rate 2024-06-01 21:42:00 89 /min [facility] Body weight 2024-06-01 21:42:00 73.755 kg [facility] BMI 2024-06-01 21:42:00 31.76 kg/m2 [facility] Systolic blood pressure 2023-12-15 17:20:00 125 mm[Hg] [facility] Diastolic blood pressure 2023-12-15 17:20:00 82 mm[Hg] [facility] Heart rate 2023-12-15 17:19:00 100 /min [facility] Body temperature 2023-12-15 17:19:00 36.94 [facility] Body height 2023-12-15 17:19:00 152.4 cm [facility] Body weight 2023-12-15 17:19:00 62.506 kg [facility] BMI 2023-12-15 17:19:00 26.91 kg/m2 [facility] height 2023-07-09 10:00:00 60 [in_i] [facility] weight 2023-07-09 10:00:00 130 [lb_av] Comm on [facility] temperature 2023-07-09 10:00:00 100.1 [degF] [facility] bmi 2023-07-09 10:00:00 25.39 kg/m2 Comm on [facility] height 2023-07-07 09:20:00 60 [in_i] Commo n [facility] weight 2023-07-07 09:20:00 130 [lb_av] Comm on [facility] 2023-07-07 09:20:00 25.39 kg/m2 Comm on [facility] height 2023-06-26 10:20:00 60 [in_i] Commo n [facility] weight 2023-06-26 10:20:00 130 [lb_av] Comm on [facility] 2023-06-26 10:20:00 25.39 kg/m2 Comm on [facility] height 2023-05-08 11:00:00 60 [in_i] Commo n [facility] weight 2023-05-08 11:00:00 130 [lb_av] Comm on [facility] bmi 2023-05-08 11:00:00 25.39 kg/m2 Comm on [facility] blood pressure systolic 2023-05-08 11:00:00 125 mm[Hg] [facility] blood pressure diastolic 2023-05-08 11:00:00 70 mm[Hg] Common [facility] height 2023-04-30 08:00:00 60 [in_i] Commo n [facility] weight 2023-04-30 08:00:00 130.0 [lb_av] Co mmon [facility] temperature 2023-04-30 08:00:00 97.9 [degF] Com mon [facility] bmi 2023-04-30 08:00:00 25.39 kg/m2 Comm on [facility] oximetry 2023-04-30 08:00:00 99 % Commo n [facility] respiratory rate 2023-04-30 08:00:00 18 /min Common [facility] blood pressure systolic 2023-04-30 08:00:00 127 mm[Hg] Common [facility] t [facility] blood pressure diastolic 2023-04-30 08:00:00 68 mm[Hg] [facility] height 2023-03-24 08:30:00 60 [in_i] Commo n [facility] weight 2023-03-24 08:30:00 134.4 [lb_av] Co [facility] temperature 2023-03-24 08:30:00 98.1 [degF] Com [facility] bmi 2023-03-24 08:30:00 26.25 kg/m2 Comm on [facility] oximetry 2023-03-24 08:30:00 99 % Commo n [facility] respiratory rate 2023-03-24 08:30:00 17 /min Common [facility] blood pressure systolic 2023-03-24 08:30:00 124 mm[Hg] Common [facility] blood pressure diastolic 2023-03-24 08:30:00 83 mm[Hg] Common [facility] height 2023-02-26 10:00:00 60 [in_i] Commo n [facility] weight 2023-02-26 10:00:00 138.2 [lb_av] Co mmon [facility] temperature 2023-02-26 10:00:00 97.7 [degF] Com [facility] bmi 2023-02-26 10:00:00 26.99 kg/m2 Comm on [facility] oximetry 2023-02-26 10:00:00 95 % Commo n [facility] respiratory rate 2023-02-26 10:00:00 18 /min Common [facility] blood pressure systolic 2023-02-26 10:00:00 140 mm[Hg] Common [facility] t [facility] blood pressure diastolic 2023-02-26 10:00:00 77 mm[Hg] Common [facility] height 2023-02-16 08:00:00 60 [in_i] Commo n [facility] weight 2023-02-16 08:00:00 137 [lb_av] Comm on [facility] temperature 2023-02-16 08:00:00 97 [degF] Comm on [facility] bmi 2023-02-16 08:00:00 26.75 kg/m2 Comm on [facility] height 2023-02-09 15:40:00 60 [in_i] Commo n [facility] weight 2023-02-09 15:40:00 138.0 [lb_av] Co mmon [facility] temperature 2023-02-09 15:40:00 98.1 [degF] Com mon [facility] bmi 2023-02-09 15:40:00 26.95 kg/m2 Comm on [facility] oximetry 2023-02-09 15:40:00 98 % Commo n [facility] respiratory rate 2023-02-09 15:40:00 16 /min [facility] blood pressure systolic 2023-02-09 15:40:00 137 mm[Hg] [facility] blood pressure diastolic 2023-02-09 15:40:00 88 mm[Hg] [facility] Heart rate 2023-01-12 03:07:00 110 /min [facility] Respiratory rate 2023-01-12 03:07:00 18 /min [facility] Oxygen saturation in Arterial blood by Pulse oximetry 2023-01-12 03:07:00 100 /min [facility] Systolic blood pressure 2023-01-12 01:08:00 144 mm[Hg] [facility] Diastolic blood pressure 2023-01-12 01:08:00 96 mm[Hg] [facility] Body temperature 2023-01-12 01:08:00 37 B[facility] Body height 2023-01-12 01:08:00 152.4 cm [facility] Body weight 2023-01-12 01:08:00 63.504 kg [facility] BMI 2023-01-12 01:08:00 27.34 kg/m2 [facility] height 2023-01-06 16:00:00 60 [in_i] Commo n [facility] weight 2023-01-06 16:00:00 152 [lb_av] Comm on [facility] bmi 2023-01-06 16:00:00 29.68 kg/m2 Comm on [facility] Systolic blood pressure 2022-12-25 15:22:00 133 mm[Hg] [facility] Diastolic blood pressure 2022-12-25 15:22:00 85 mm[Hg] [facility] Heart rate 2022-12-25 15:22:00 64 /[facility] Body temperature 2022-12-25 15:22:00 36.83 [facility] Respiratory rate 2022-12-25 15:22:00 18 /min [facility] Body height 2022-12-25 15:22:00 152.4 cm [facility] Body weight 2022-12-25 15:22:00 67.132 kg [facility] BMI 2022-12-25 15:22:00 28.90 kg/m2 [facility] height 2022-11-28 08:30:00 60 [in_i] Commo n [facility] weight 2022-11-28 08:30:00 152.7 [lb_av] Co mmon [facility] temperature 2022-11-28 08:30:00 97.5 [degF] Com mon [facility] bmi 2022-11-28 08:30:00 29.82 kg/m2 Comm on [facility] oximetry 2022-11-28 08:30:00 97 % Commo n [facility] respiratory rate 2022-11-28 08:30:00 17 /min [facility] blood pressure systolic 2022-11-28 08:30:00 121 mm[Hg] Common [facility] blood pressure diastolic 2022-11-28 08:30:00 76 mm[Hg] Common [facility] height 2022-11-21 14:20:00 60 [in_i] Commo n [facility] weight 2022-11-21 14:20:00 157 [lb_av] Comm on [facility] bmi 2022-11-21 14:20:00 30.66 kg/m2 Comm on [facility] height 2022-11-05 16:00:00 60 [in_i] Commo n [facility] weight 2022-11-05 16:00:00 157 [lb_av] Comm on [facility] temperature 2022-11-05 16:00:00 98.4 [degF] Com mon [facility] bmi 2022-11-05 16:00:00 30.66 kg/m2 Comm on [facility] oximetry 2022-11-05 16:00:00 98 % Commo n [facility] respiratory rate 2022-11-05 16:00:00 17 /min [facility] blood pressure systolic 2022-11-05 16:00:00 119 mm[Hg] [facility] blood pressure diastolic 2022-11-05 16:00:00 83 mm[Hg] [facility] Systolic blood pressure 2022-11-04 14:15:00 144 mm[Hg] [facility] Diastolic blood pressure 2022-11-04 14:15:00 97 mm[Hg] [facility] Heart rate 2022-11-04 14:15:00 118 /min [facility] Body temperature 2022-11-04 14:15:00 37.61 [facility] Respiratory rate 2022-11-04 14:15:00 20 /min [facility] Body weight 2022-11-04 14:15:00 70.308 kg [facility] BMI 2022-11-04 14:15:00 30.27 kg/m2 [facility] Oxygen saturation in Arterial blood by Pulse oximetry 2022-11-04 14:15:00 100 /min [facility] Systolic blood pressure 2022-10-27 21:28:00 110 mm[Hg] [facility] Diastolic blood pressure 2022-10-27 21:28:00 73 mm[Hg] [facility] Heart rate 2022-10-27 21:28:00 102 /min Un[facility] Body temperature 2022-10-27 21:28:00 36.72 [facility] Respiratory rate 2022-10-27 21:28:00 17 /min [facility] Body height 2022-10-27 21:28:00 152.4 cm [facility] Body weight 2022-10-27 21:28:00 72.757 kg [facility] BMI 2022-10-27 21:28:00 31.33 kg/m2 [facility] Systolic blood pressure 2022-10-21 19:24:00 119 mm[Hg] [facility] Diastolic blood pressure 2022-10-21 19:24:00 76 mm[Hg] [facility] Heart rate 2022-10-21 19:24:00 101 /min [facility] Body temperature 2022-10-21 19:24:00 36.67 [facility] Body height 2022-10-21 19:24:00 152.4 cm [facility] Body weight 2022-10-21 19:24:00 72.122 kg [facility] BMI 2022-10-21 19:24:00 31.05 kg/m2 [facility] Systolic blood pressure 2022-09-24 17:46:00 111 mm[Hg] [facility] Diastolic blood pressure 2022-09-24 17:46:00 74 mm[Hg] [facility] Heart rate 2022-09-24 17:46:00 87 /min [facility] Body temperature 2022-09-24 17:46:00 36.83 [facility] Respiratory rate 2022-09-24 17:46:00 18 /min [facility] Body height 2022-09-24 17:46:00 152.4 cm [facility] Body weight 2022-09-24 17:46:00 73.211 kg [facility] BMI 2022-09-24 17:46:00 31.52 kg/m2 [facility] Systolic blood pressure 2022-09-09 18:30:00 112 mm[Hg] [facility] Diastolic blood pressure 2022-09-09 18:30:00 74 mm[Hg] [facility] Heart rate 2022-09-09 12:30:00 70 /min [facility] Body temperature 2022-09-09 12:30:00 36.11 [facility] Respiratory rate 2022-09-09 12:30:00 18 /min [facility] Oxygen saturation in Arterial blood by Pulse oximetry 2022-09-09 12:30:00 99 /min [facility] Body height 2022-09-08 09:30:00 152.4 cm 5' [facility] Body weight 2022-09-08 09:30:00 81.738 kg 180.2lb [facility] BMI 2022-09-08 09:30:00 35.19 kg/m2 [facility] Systolic blood pressure 2022-09-05 09:15:00 125 mm[Hg] [facility] Diastolic blood pressure 2022-09-05 09:15:00 77 mm[Hg] [facility] Heart rate 2022-09-05 09:15:00 77 /min [facility] Body temperature 2022-09-05 09:15:00 37 [facility] Respiratory rate 2022-09-05 09:15:00 16 /min [facility] Oxygen saturation in Arterial blood by Pulse oximetry 2022-09-05 09:15:00 99 /min [facility] Body height 2022-09-05 07:19:00 152.4 cm [facility] Body weight 2022-09-05 07:19:00 83.144 kg 183.3lb [facility] BMI 2022-09-05 07:19:00 35.80 kg/m2 [facility] Systolic blood pressure 2022-09-03 16:36:00 112 mm[Hg] [facility] Diastolic blood pressure 2022-09-03 16:36:00 71 mm[Hg] [facility] Heart rate 2022-09-03 16:36:00 90 /min [facility] Body temperature 2022-09-03 16:36:00 36.83 [facility] Respiratory rate 2022-09-03 16:36:00 18 /min [facility] Body height 2022-09-03 16:36:00 152.4 cm [facility] Body weight 2022-09-03 16:36:00 82.101 kg [facility] BMI 2022-09-03 16:36:00 35.35 kg/m2 [facility] Heart rate 2022-09-02 05:45:00 70 /min [facility] Oxygen saturation in Arterial blood by Pulse oximetry 2022-09-02 05:45:00 99 /min [facility] Systolic blood pressure 2022-09-02 04:39:00 133 mm[Hg] [facility] Diastolic blood pressure 2022-09-02 04:39:00 80 mm[Hg] [facility] Body temperature 2022-09-02 04:39:00 36.61 [facility] Respiratory rate 2022-09-02 04:39:00 18 /min [facility] Body height 2022-09-02 04:39:00 152.4 cm [facility] Body weight 2022-09-02 04:39:00 82.736 kg [facility] BMI 2022-09-02 04:39:00 35.62 kg/m2 [facility] Systolic blood pressure 2022-08-26 20:38:00 111 mm[Hg] [facility] Diastolic blood pressure 2022-08-26 20:38:00 74 mm[Hg] [facility] Heart rate 2022-08-26 20:38:00 95 /min [facility] Body temperature 2022-08-26 20:38:00 36.72 [facility] Respiratory rate 2022-08-26 20:38:00 18 /min [facility] Body height 2022-08-26 20:38:00 152.4 cm [facility] Body weight 2022-08-26 20:38:00 82.192 kg [facility] BMI 2022-08-26 20:38:00 35.39 kg/m2 [facility] Systolic blood pressure 2022-08-12 18:43:00 115 mm[Hg] [facility] Diastolic blood pressure 2022-08-12 18:43:00 72 mm[Hg] [facility] Heart rate 2022-08-12 18:43:00 93 /min Un[facility] Body temperature 2022-08-12 18:43:00 36.83 [facility] Body height 2022-08-12 18:43:00 152.4 cm [facility] Body weight 2022-08-12 18:43:00 81.012 kg [facility] BMI 2022-08-12 18:43:00 34.88 kg/m2 [facility] Heart rate 2022-08-06 23:30:00 90 /min [facility] Oxygen saturation in Arterial blood by Pulse oximetry 2022-08-06 23:30:00 99 /min [facility] Systolic blood pressure 2022-08-06 22:40:00 116 mm[Hg] [facility] Diastolic blood pressure 2022-08-06 22:40:00 63 mm[Hg] [facility] Body temperature 2022-08-06 22:40:00 37 [facility] Respiratory rate 2022-08-06 22:40:00 18 /min [facility] Body height 2022-08-06 22:40:00 152.4 cm [facility] Body weight 2022-08-06 22:40:00 81.466 kg [facility] BMI 2022-08-06 22:40:00 35.08 kg/m2 [facility] Systolic blood pressure 2022-07-29 18:20:00 115 mm[Hg] [facility] Diastolic blood pressure 2022-07-29 18:20:00 73 mm[Hg] [facility] Heart rate 2022-07-29 18:20:00 80 /min [facility] Body temperature 2022-07-29 18:20:00 36.94 [facility] Respiratory rate 2022-07-29 18:20:00 18 /min [facility] Body height 2022-07-29 18:20:00 152.4 cm [facility] Body weight 2022-07-29 18:20:00 81.375 kg [facility] BMI 2022-07-29 18:20:00 35.04 kg/m2 [facility] height 2022-07-14 14:00:00 60 [in_i] Commo n [facility] weight 2022-07-14 14:00:00 169 [lb_av] Comm on [facility] bmi 2022-07-14 14:00:00 33 kg/m2 Commo n [facility] Systolic blood pressure 2022-07-08 19:47:00 113 mm[Hg] [facility] Diastolic blood pressure 2022-07-08 19:47:00 75 mm[Hg] [facility] Heart rate 2022-07-08 19:47:00 88 /min [facility] Body temperature 2022-07-08 19:47:00 36.72 [facility] Respiratory rate 2022-07-08 19:47:00 18 /min [facility] Body height 2022-07-08 19:47:00 152.4 cm [facility] weight 2022-07-08 19:47:00 80.74 kg [facility] BMI 2022-07-08 19:47:00 34.76 kg/m2 [facility] Systolic blood pressure 2022-07-01 18:20:00 108 mm[Hg] [facility] Diastolic blood pressure 2022-07-01 18:20:00 71 mm[Hg] [facility] Heart rate 2022-07-01 18:20:00 91 /min Unive [facility] Body temperature 2022-07-01 18:20:00 37 [facility] Respiratory rate 2022-07-01 18:20:00 18 /min [facility] Body height 2022-07-01 18:20:00 152.4 cm [facility] Body weight 2022-07-01 18:20:00 80.457 kg [facility] BMI 2022-07-01 18:20:00 34.64 kg/m2 [facility] Systolic blood pressure 2022-06-23 15:15:00 109 mm[Hg] [facility] Diastolic blood pressure 2022-06-23 15:15:00 70 mm[Hg] [facility] Heart rate 2022-06-23 15:15:00 98 /min Un[facility] Body temperature 2022-06-23 15:15:00 36.61 [facility] Respiratory rate 2022-06-23 15:15:00 18 /min [facility] Body height 2022-06-23 15:15:00 152.4 cm [facility] Body weight 2022-06-23 15:15:00 79.652 kg [facility] BMI 2022-06-23 15:15:00 34.29 kg/m2 [facility] Body temperature 2022-06-12 09:24:00 36.78 [facility] Systolic blood pressure 2022-06-12 08:16:00 121 mm[Hg] [facility] Diastolic blood pressure 2022-06-12 08:16:00 73 mm[Hg] [facility] Heart rate 2022-06-12 08:16:00 135 /min [facility] Respiratory rate 2022-06-12 08:16:00 20 /min [facility] Body weight 2022-06-12 08:16:00 77.111 kg [facility] BMI 2022-06-12 08:16:00 33.20 kg/m2 [facility] Oxygen saturation in Arterial blood by Pulse oximetry 2022-06-12 08:16:00 99 /min [facility] height 2022-06-12 09:20:00 60 [in_i] [facility] weight 2022-06-12 09:20:00 169 [lb_av] Comm on [facility] bmi 2022-06-12 09:20:00 33 kg/m2 [facility] Systolic blood pressure 2022-05-13 18:10:00 118 mm[Hg] [facility] Diastolic blood pressure 2022-05-13 18:10:00 73 mm[Hg] [facility] Heart rate 2022-05-13 18:10:00 88 /min [facility] Body temperature 2022-05-13 18:10:00 36.56 [facility] Body height 2022-05-13 18:10:00 152.4 cm [facility] Body weight 2022-05-13 18:10:00 78.654 kg [facility] BMI 2022-05-13 18:10:00 33.86 kg/m2 [facility] Systolic blood pressure 2022-04-24 18:08:00 113 mm[Hg] [facility] Diastolic blood pressure 2022-04-24 18:08:00 69 mm[Hg] [facility] Heart rate 2022-04-24 18:08:00 88 /min [facility] Body temperature 2022-04-24 18:08:00 36.78 [facility] Body height 2022-04-24 18:08:00 152.4 cm [facility] Body weight 2022-04-24 18:08:00 77.565 kg [facility] BMI 2022-04-24 18:08:00 33.40 kg/m2 [facility] Systolic blood pressure 2022-04-17 16:16:00 119 mm[Hg] [facility] Diastolic blood pressure 2022-04-17 16:16:00 79 mm[Hg] [facility] Heart rate 2022-04-17 16:16:00 89 /min [facility] Body temperature 2022-04-17 16:16:00 37.11 [facility] Respiratory rate 2022-04-17 16:16:00 18 /min [facility] Body height 2022-04-17 16:16:00 152.4 cm [facility] Body weight 2022-04-17 16:16:00 76.658 kg [facility] BMI 2022-04-17 16:16:00 33.01 kg/m2 [facility] height 2022-04-10 16:40:00 60 [in_i] Commo n [facility] weight 2022-04-10 16:40:00 168.2 [lb_av] Co mmon [facility] temperature 2022-04-10 16:40:00 98.1 [degF] Com mon [facility] bmi 2022-04-10 16:40:00 32.85 kg/m2 Comm on [facility] oximetry 2022-04-10 16:40:00 100 % Commo n [facility] respiratory rate 2022-04-10 16:40:00 18 /min Common [facility] blood pressure systolic 2022-04-10 16:40:00 114 mm[Hg] Common [facility] blood pressure diastolic 2022-04-10 16:40:00 76 mm[Hg] Common [facility] Systolic blood pressure 2022-03-20 16:25:00 113 mm[Hg] [facility] Diastolic blood pressure 2022-03-20 16:25:00 75 mm[Hg] [facility] Heart rate 2022-03-20 16:25:00 71 /min [facility] Body temperature 2022-03-20 16:25:00 36.61 [facility] Body height 2022-03-20 16:25:00 152.4 cm [facility] Body weight 2022-03-20 16:25:00 75.025 kg [facility] BMI 2022-03-20 16:25:00 32.30 kg/m2 [facility] Systolic blood pressure 2022-02-18 15:41:00 123 mm[Hg] [facility] Diastolic blood pressure 2022-02-18 15:41:00 80 mm[Hg] [facility] Heart rate 2022-02-18 15:41:00 83 /min [facility] Body temperature 2022-02-18 15:41:00 36.89 [facility] Respiratory rate 2022-02-18 15:41:00 18 /min [facility] Body height 2022-02-18 15:41:00 152.4 cm [facility] Body weight 2022-02-18 15:41:00 73.029 kg [facility] BMI 2022-02-18 15:41:00 31.44 kg/m2 [facility] height 2022-01-13 14:20:00 60 [in_i] Commo n [facility] weight 2022-01-13 14:20:00 161 [lb_av] Comm on [facility] temperature 2022-01-13 14:20:00 97.1 [degF] Com mon [facility] bmi 2022-01-13 14:20:00 31.44 kg/m2 Comm on [facility] oximetry 2022-01-13 14:20:00 98 % Commo n [facility] respiratory rate 2022-01-13 14:20:00 20 /min Common [facility] blood pressure systolic 2022-01-13 14:20:00 118 mm[Hg] [facility] blood pressure diastolic 2022-01-13 14:20:00 74 mm[Hg] Common [facility] height 2021-12-25 16:00:00 60 [in_i] Commo n [facility] weight 2021-12-25 16:00:00 168.6 [lb_av] Co on [facility] bmi 2021-12-25 16:00:00 32.92 kg/m2 Comm on [facility] height 2021-12-13 13:00:00 60 [in_i] Commo n [facility] weight 2021-12-13 13:00:00 168.6 [lb_av] Co [facility] temperature 2021-12-13 13:00:00 98.1 [degF] Com mon [facility] bmi 2021-12-13 13:00:00 32.92 kg/m2 Comm on [facility] oximetry 2021-12-13 13:00:00 99 % Commo n [facility] respiratory rate 2021-12-13 13:00:00 17 /min Common [facility] blood pressure systolic 2021-12-13 13:00:00 129 mm[Hg] [facility] blood pressure diastolic 2021-12-13 13:00:00 82 mm[Hg] [facility] height 2021-11-12 14:20:00 60 [in_i] Commo n [facility] weight 2021-11-12 14:20:00 162 [lb_av] Comm on [facility] bmi 2021-11-12 14:20:00 31.64 kg/m2 Comm on [facility] height 2021-10-15 11:40:00 60 [in_i] Commo n [facility] weight 2021-10-15 11:40:00 162 [lb_av] Comm on [facility] bmi 2021-10-15 11:40:00 31.64 kg/m2 Comm on [facility] height 2021-09-02 11:40:00 60 [in_i] Commo n [facility] weight 2021-09-02 11:40:00 162 [lb_av] Comm on [facility] bmi 2021-09-02 11:40:00 31.64 kg/m2 Comm on [facility] Systolic blood pressure 2021-06-27 16:11:00 114 mm[Hg] [facility] Diastolic blood pressure 2021-06-27 16:11:00 78 mm[Hg] [facility] Heart rate 2021-06-27 16:11:00 68 /min [facility] Body temperature 2021-06-27 16:11:00 36.78 [facility] Respiratory rate 2021-06-27 16:11:00 18 /min [facility] Body height 2021-06-27 16:11:00 152.4 cm [facility] Body weight 2021-06-27 16:11:00 79.379 kg [facility] BMI 2021-06-27 16:11:00 34.18 kg/m2 [facility] height 2021-04-23 16:10:00 60 [in_i] Commo n [facility] weight 2021-04-23 16:10:00 162 [lb_av] Comm on [facility] temperature 2021-04-23 16:10:00 98 [degF] Comm on [facility] bmi 2021-04-23 16:10:00 31.64 kg/m2 Comm on [facility] Systolic blood pressure 2021-02-21 06:04:00 123 mm[Hg] [facility] Diastolic blood pressure 2021-02-21 06:04:00 65 mm[Hg] [facility] Heart rate 2021-02-21 06:04:00 80 /min [facility] Respiratory rate 2021-02-21 06:04:00 22 /min [facility] Oxygen saturation in Arterial blood by Pulse oximetry 2021-02-21 06:04:00 99 /min [facility] Body temperature 2021-02-21 01:29:00 37.28 [facility] Body height 2021-02-21 01:29:00 162.6 cm [facility] Body weight 2021-02-21 01:29:00 75.751 kg [facility] BMI 2021-02-21 01:29:00 28.67 kg/m2 [facility] Systolic blood pressure 2020-09-18 17:10:00 117 mm[Hg] [facility] Diastolic blood pressure 2020-09-18 17:10:00 78 mm[Hg] [facility] Heart rate 2020-09-18 17:10:00 80 /min [facility] Respiratory rate 2020-09-18 17:10:00 18 /min [facility] Body height 2020-09-18 17:10:00 152.4 cm [facility] Body weight 2020-09-18 17:10:00 78.109 kg [facility] BMI 2020-09-18 17:10:00 33.63 kg/m2 [facility] Systolic blood pressure 2020-06-20 21:05:00 102 mm[Hg] [facility] Diastolic blood pressure 2020-06-20 21:05:00 71 mm[Hg] [facility] Heart rate 2020-06-20 21:05:00 66 /min [facility] Body temperature 2020-06-20 21:05:00 36.78 Bita [facility] Respiratory rate 2020-06-20 21:05:00 18 /min [facility] Body height 2020-06-20 21:05:00 152.4 cm [facility] Body weight 2020-06-20 21:05:00 77.565 kg [facility] BMI 2020-06-20 21:05:00 33.40 kg/m2 [facility] Systolic blood pressure 2020-03-21 18:00:00 117 mm[Hg] [facility] Diastolic blood pressure 2020-03-21 18:00:00 78 mm[Hg] [facility] Heart rate 2020-03-21 18:00:00 89 /min [facility] Body temperature 2020-03-21 18:00:00 37 Bita [facility] Respiratory rate 2020-03-21 18:00:00 18 /min [facility] Oxygen saturation in Arterial blood by Pulse oximetry 2020-03-21 18:00:00 100 /min [facility] Body height 2020-03-19 17:41:00 152.4 cm [facility] Body weight 2020-03-19 17:41:00 82.373 kg [facility] BMI 2020-03-19 17:41:00 35.47 kg/m2 [facility] Systolic blood pressure 2020-03-12 22:13:00 122 mm[Hg] [facility] Diastolic blood pressure 2020-03-12 22:13:00 68 mm[Hg] [facility] Heart rate 2020-03-12 22:13:00 95 /min [facility] Body temperature 2020-03-12 22:13:00 36.67 Bita [facility] Respiratory rate 2020-03-12 22:13:00 18 /min [facility] Body height 2020-03-12 22:13:00 157.5 cm [facility] Body weight 2020-03-12 22:13:00 82.192 kg [facility] BMI 2020-03-12 22:13:00 33.14 kg/m2 [facility] Oxygen saturation in Arterial blood by Pulse oximetry 2020-03-12 22:13:00 98 /min [facility] Systolic blood pressure 2020-02-27 20:43:00 112 mm[Hg] [facility] Diastolic blood pressure 2020-02-27 20:43:00 71 mm[Hg] [facility] Heart rate 2020-02-27 20:43:00 96 /min [facility] Body temperature 2020-02-27 20:43:00 36.89 Bita [facility] Respiratory rate 2020-02-27 20:43:00 18 /min [facility] Body height 2020-02-27 20:43:00 157.5 cm [facility] Body weight 2020-02-27 20:43:00 80.74 kg [facility] BMI 2020-02-27 20:43:00 32.56 kg/m2 [facility] Systolic blood pressure 2020-02-06 20:27:00 114 mm[Hg] [facility] Diastolic blood pressure 2020-02-06 20:27:00 68 mm[Hg] [facility] Heart rate 2020-02-06 20:27:00 101 /min [facility] Body temperature 2020-02-06 20:27:00 36.5 Bita [facility] Respiratory rate 2020-02-06 20:27:00 18 /min [facility] Body height 2020-02-06 20:27:00 152.4 cm [facility] Body weight 2020-02-06 20:27:00 79.379 kg [facility] BMI 2020-02-06 20:27:00 34.18 kg/m2 [facility] Systolic blood pressure 2020-02-02 20:28:00 111 mm[Hg] [facility] Diastolic blood pressure 2020-02-02 20:28:00 68 mm[Hg] [facility] Heart rate 2020-02-02 20:28:00 93 /min [facility] Body temperature 2020-02-02 20:28:00 36.94 Bita [facility] Respiratory rate 2020-02-02 20:28:00 18 /min [facility] Body height 2020-02-02 20:28:00 157.5 cm [facility] Body weight 2020-02-02 20:28:00 78.472 kg [facility] BMI 2020-02-02 20:28:00 31.64 kg/m2 [facility] Systolic blood pressure 2020-01-29 11:01:00 116 mm[Hg] [facility] Diastolic blood pressure 2020-01-29 11:01:00 68 mm[Hg] [facility] Heart rate 2020-01-29 11:01:00 113 /min [facility] Respiratory rate 2020-01-29 11:01:00 18 /min [facility] Body height 2020-01-29 11:01:00 152.4 cm [facility] Body weight 2020-01-29 11:01:00 79.379 kg [facility] BMI 2020-01-29 11:01:00 34.18 kg/m2 [facility] Oxygen saturation in Arterial blood by Pulse oximetry 2020-01-29 11:01:00 98 /min [facility] Systolic blood pressure 2020-01-24 19:08:00 107 mm[Hg] [facility] Diastolic blood pressure 2020-01-24 19:08:00 67 mm[Hg] [facility] Heart rate 2020-01-24 19:08:00 95 /min [facility] Body temperature 2020-01-24 19:08:00 36.72 Bita [facility] Respiratory rate 2020-01-24 19:08:00 18 /min [facility] Body height 2020-01-24 19:08:00 157.5 cm [facility] Body weight 2020-01-24 19:08:00 78.2 kg [facility] BMI 2020-01-24 19:08:00 31.53 kg/m2 [facility] Systolic blood pressure 2020-01-20 16:30:00 110 mm[Hg] [facility] Diastolic blood pressure 2020-01-20 16:30:00 66 mm[Hg] [facility] Heart rate 2020-01-20 16:30:00 94 /min [facility] Body temperature 2020-01-20 16:30:00 36.67 Bita [facility] Respiratory rate 2020-01-20 16:30:00 16 /min [facility] Body height 2020-01-20 16:30:00 152.4 cm [facility] Body weight 2020-01-20 16:30:00 76.839 kg [facility] BMI 2020-01-20 16:30:00 33.08 kg/m2 [facility] Systolic blood pressure 2020-01-18 20:00:00 108 mm[Hg] [facility] Diastolic blood pressure 2020-01-18 20:00:00 55 mm[Hg] [facility] Heart rate 2020-01-18 20:00:00 107 /min [facility] Respiratory rate 2020-01-18 20:00:00 18 /min [facility] Oxygen saturation in Arterial blood by Pulse oximetry 2020-01-18 20:00:00 98 /min [facility] Body temperature 2020-01-18 18:00:00 36.56 Bita [facility] Body height 2020-01-18 00:55:00 157.5 cm [facility] Body weight 2020-01-18 00:55:00 77.111 kg [facility] BMI 2020-01-18 00:55:00 31.09 kg/m2 [facility] Systolic blood pressure 2020-01-10 00:00:00 120 mm[Hg] [facility] Diastolic blood pressure 2020-01-10 00:00:00 73 mm[Hg] [facility] Heart rate 2020-01-10 00:00:00 89 /min [facility] Body temperature 2020-01-09 23:20:00 36.67 Bita [facility] Respiratory rate 2020-01-09 23:20:00 16 /min [facility] Body height 2020-01-09 23:20:00 157.5 cm [facility] Body weight 2020-01-09 23:20:00 77.565 kg [facility] BMI 2020-01-09 23:20:00 31.28 kg/m2 [facility] Oxygen saturation in Arterial blood by Pulse oximetry 2020-01-09 23:20:00 98 /min [facility] Systolic blood pressure 2020-01-09 22:17:00 110 mm[Hg] [facility] Diastolic blood pressure 2020-01-09 22:17:00 74 mm[Hg] [facility] Heart rate 2020-01-09 22:17:00 93 /min [facility] Body temperature 2020-01-09 22:17:00 36.78 Bita [facility] Respiratory rate 2020-01-09 22:17:00 18 /min [facility] Body height 2020-01-09 22:17:00 157.5 [facility] weight 2020-01-09 22:17:00 77.565 kg [facility] BMI 2020-01-09 22:17:00 31.28 kg/m2 [facility] Systolic blood pressure 2019-12-19 22:44:00 111 mm[Hg] [facility] Diastolic blood pressure 2019-12-19 22:44:00 73 mm[Hg] [facility] Heart rate 2019-12-19 22:44:00 88 /min [facility] Body temperature 2019-12-19 22:44:00 37.06 Bita [facility] Respiratory rate 2019-12-19 22:44:00 18 /min [facility] Body height 2019-12-19 22:44:00 157.5 cm [facility] Body weight 2019-12-19 22:44:00 76.204 kg [facility] BMI 2019-12-19 22:44:00 30.73 kg/m2 [facility] Systolic blood pressure 2019-07-29 20:33:00 113 mm[Hg] [facility] Diastolic blood pressure 2019-07-29 20:33:00 77 mm[Hg] [facility] Heart rate 2019-07-29 20:33:00 83 /min [facility] Body temperature 2019-07-29 20:33:00 36.72 Bita [facility] Respiratory rate 2019-07-29 20:33:00 18 /min [facility] Body height 2019-07-29 20:33:00 152.4 cm [facility] Body weight 2019-07-29 20:33:00 73.483 kg [facility] BMI 2019-07-29 20:33:00 31.64 kg/m2 [facility] Procedures Procedure Date / Time Performed Performing Clinician Source US OB TRANSVAGINAL 2024-11-04 02:17:28 [facility] URINALYSIS W/O SPECIFIC GRAVITY 2024-11-03 15:43:00 Gustabo Brock [facility] POCT TEST 2024-10-18 17:26:00 Gustabo Brock [facility] POCT MOLECULAR FLU 2024-07-24 16:39:00 Unknown, Attend ing [facility] POCT MOLECULAR STREP 2024-07-24 16:36:00 Unknown, Atte anaing [facility] POCT SARS-COV-2 ANTIGEN (BINAX NOW) 2024-07-24 16:30:00 Mesha Montalvo [facility] POCT TEST 2024-07-19 00:00:00 Mily Manning [facility] POCT TEST 2024-06-01 00:00:00 Mily Manning [facility] HEPATITIS B SURFACE ANTIGEN 2023-12-16 21:54:00 Gustabo Brock [facility] HCV ANTIBODY 2023-12-16 21:54:00 Gustabo Brock [facility] HSV 1 AND 2 GLYCOPROTEIN G IGG 2023-12-16 21:54:00 Gustabo Brock [facility] ADC OR MARILYN ONLY - RPR 2023-12-16 21:54:00 Gina Brock [facility] HIV 1/2 AG-AB WITH REFLEX 2023-12-16 21:54:00 Gina Brock [facility] ASSIGNMENT OF BENEFITS 2023-12-15 17:08:56 Docto r Unassigned, Taylor [facility] POCT URINALYSIS W/O SPECIFIC GRAVITY 2023-12-15 00:00:00 Gustabo Brock [facility] PVR 2023-02-26 00:00:00 Common [facility] - [facility] POCT TEST 2023-01-12 01:47:00 Jessica Brewster [facility] URINALYSIS 2023-01-12 01:41:00 Erin Brewster [facility] CONSENT/REFUSAL FOR DIAGNOSIS AND TREATMENT 2023-01-12 00:52:59 Doctor Unassigned, Taylor [facility] POCT TEST 2022-11-04 14:27:00 Keena Kahn ra [facility] RAPID INFLUENZA A/B 2022-11-04 14:25:00 Keena Kahn ra [facility] CONSENT/REFUSAL FOR DIAGNOSIS AND TREATMENT 2022-11-04 14:11:11 Doctor Unassigned, Taylor [facility] POCT TEST 2022-10-27 21:29:00 Gustabo Brock [facility] MANAGER PRODUCT SUPPORT CLINIC ULTRASOUND 2022-10-27 06:01:00 Doc tor Unassigned, Taylor [facility] CBC WITH DIFF 2022-09-09 09:28:00 Gustabo Brock [facility] CENTRAL NEURAXIAL BLOCK 2022-09-08 17:25:46 Areli Ferris [facility] CBC WITH DIFF 2022-09-08 10:03:00 Gustabo Brock [facility] HEPATITIS B SURFACE ANTIGEN 2022-09-08 10:03:00 Gustabo Brock [facility] ADC OR MARILYN ONLY - RPR 2022-09-08 10:03:00 Gina Brock [facility] HIV 1/2 AG-AB WITH REFLEX 2022-09-08 10:03:00 Gina Brock [facility] HB ABO GROUPING 2022-09-08 09:55:00 Gustabo Brock [facility] RHO (D) IMMUNE GLOBULIN 2022-09-08 09:55:00 Gustabo Brock [facility] CONSENT/REFUSAL FOR DIAGNOSIS AND TREATMENT 2022-09-05 06:44:04 Doctor Unassigned, Taylor [facility] POCT URINALYSIS W/O SPECIFIC GRAVITY 2022-09-03 00:00:00 Gustabo Brock [facility] ADC ONLY - FERN TEST 2022-09-02 05:16:00 Gustabo Brock [facility] NOTICE OF PRIVACY PRACTICES 2022-09-02 04:21:36 Doctor Unassigned, Taylor [facility] >14 WEEKS US LIMITED 2022-08-26 21:14:28 Delmy Gustabo Bundy [facility] DSU PRE-OP 2022-08-26 05:01:00 Doctor Unass igned, Taylor [facility] POCT URINALYSIS W/O SPECIFIC GRAVITY 2022-08-26 00:00:00 Gustabo Brock [facility] POCT URINALYSIS W/O SPECIFIC GRAVITY 2022-08-12 00:00:00 Gustabo Brock [facility] POCT URINALYSIS W/O SPECIFIC GRAVITY 2022-07-29 18:32:00 Ela Raphael [facility] POCT URINALYSIS W/O SPECIFIC GRAVITY 2022-07-08 00:00:00 Gustabo Brock [facility] POCT URINALYSIS W/O SPECIFIC GRAVITY 2022-06-23 00:00:00 Gustabo Brock [facility] RAPID STREP SCREEN FOR GROUP A 2022-06-12 08:23:00 Vandana Narayanan [facility] COVID-19 (ID NOW RAPID TESTING) 2022-06-12 08:23:00 Vandana Narayanan [facility] NOTICE OF PRIVACY PRACTICES 2022-06-12 08:01:55 Doctor Unassigned, Taylor [facility] CONSENT/REFUSAL FOR DIAGNOSIS AND TREATMENT 2022-06-12 08:00:12 Doctor Unassigned, Taylor [facility] POCT URINALYSIS W/O SPECIFIC GRAVITY 2022-04-24 00:00:00 Gustabo Brock [facility] POCT URINALYSIS W/O SPECIFIC GRAVITY 2022-04-17 00:00:00 Gustabo Brock [facility] INSURANCE CORRESPONDENCE 2022-03-20 05:01:00 Doc tor Unassigned, Taylor [facility] POCT URINALYSIS W/O SPECIFIC GRAVITY 2022-03-20 00:00:00 Gustabo Brock [facility] <14 WEEKS US LIMITED 2022-02-18 16:26:52 Gustabo Brock [facility] CONSENT/REFUSAL FOR DIAGNOSIS AND TREATMENT 2022-02-18 15:12:57 Doctor Unassigned, Taylor [facility] ASSIGNMENT OF BENEFITS 2022-02-18 15:12:44 Docto r Unassigned, Taylor [facility] POCT TEST 2022-02-18 00:00:00 Gustabo Brock [facility] POCT URINALYSIS W/O SPECIFIC GRAVITY 2022-02-18 00:00:00 Gustabo Brock [facility] INSURANCE CORRESPONDENCE 2021-07-12 05:01:00 Doc tor Unassigned, [facility] CONSENT FOR CONTRACEPTION 2021-06-27 05:01:00 Do ctor Unassigned, Taylor [facility] XR RIBS 4+ VW LEFT 2021-02-21 05:47:49 Elsa Car [facility] D-DIMER 2021-02-21 04:22:00 Elsa Car [facility] N-TERMINAL PRO-BNP 2021-02-21 04:22:00 Elsa Car [facility] POCT TEST 2021-02-21 01:40:00 Justin Swanson [facility] URINALYSIS 2021-02-21 01:35:00 Justin Swanson [facility] NOTICE OF PRIVACY PRACTICES 2021-02-21 01:20:16 Doctor Unassigned, Taylor [facility] CONSENT/REFUSAL FOR DIAGNOSIS AND TREATMENT 2021-02-21 01:19:59 Doctor Unassigned, Taylor [facility] CBC WITH DIFFERENTIAL 2020-03-21 05:53:00 Gustabo Brock [facility] VENOUS CORD GAS 2020-03-20 14:35:00 Gustabo Brock [facility] CORONAVIRUS COVID-19 TESTING 2020-03-19 18:29:00 Gustabo Brock [facility] CBC WITH DIFFERENTIAL 2020-03-19 18:28:00 Gustabo Brock [facility] HEPATITIS B SURFACE ANTIGEN 2020-03-19 18:28:00 Gustabo Brock [facility] ADC OR MARILYN ONLY - RPR 2020-03-19 18:28:00 Gina Brock [facility] HIV 1/2 AG-AB WITH REFLEX 2020-03-19 18:28:00 Gina Brock [facility] HB ABO GROUPING 2020-03-19 18:20:00 Gustabo Brock [facility] RHO (D) IMMUNE GLOBULIN 2020-03-19 18:20:00 Gustabo Brock [facility] CONSENT/REFUSAL FOR DIAGNOSIS AND TREATMENT 2020-03-19 17:28:15 Doctor Unassigned, Taylor [facility] ASSIGNMENT OF BENEFITS 2020-03-19 17:28:01 Docto r Unassigned, Taylor [facility] CONSENT/REFUSAL FOR DIAGNOSIS AND TREATMENT 2020-03-12 22:02:35 Doctor Unassigned, [facility] ASSIGNMENT OF BENEFITS 2020-03-12 22:02:23 Docto r Unassigned, [facility] GLUCOSE 1 HOUR POST PRANDIAL 2020-02-27 20:28:00 Gustabo Brock [facility] CBC WITH DIFFERENTIAL 2020-02-27 20:28:00 Gustabo Brock [facility] DSU PRE-OP 2020-02-27 05:01:00 Doctor Unass igned, [facility] DISABILITY/FMLA 2020-02-16 05:01:00 Doctor Unass igned, [facility] NON-STRESS TEST 2020-02-06 21:07:03 Gustabo Brock [facility] POCT URINALYSIS W/O SPECIFIC GRAVITY 2020-02-06 00:00:00 Gustabo Brock [facility] NON-STRESS TEST 2020-02-03 13:49:53 Gustabo Brock [facility] ADC ONLY - FERN TEST 2020-01-29 13:38:00 Dat Delgado [facility] NOTICE OF PRIVACY PRACTICES 2020-01-29 10:22:07 Doctor Unassigned, [facility] POCT URINALYSIS W/O SPECIFIC GRAVITY 2020-01-24 00:00:00 Gustabo Brock [facility] POCT URINALYSIS W/O SPECIFIC GRAVITY 2020-01-20 00:00:00 Ela Raphael [facility] SECOND AND THIRD TRIMESTER ULTRASOUND 2020-01-18 16:30:00 Gustabo Brock [facility] HB ABO GROUPING 2020-01-18 05:37:00 Morris Carreon [facility] CBC WITH DIFFERENTIAL 2020-01-17 20:37:00 Delmy Gustabo wu [facility] HB ABO GROUPING 2020-01-17 20:35:00 Gustabo Brock [facility] US PELVIS > 14 WEEKS 2020-01-17 19:53:32 Gustabo Brock [facility] URINALYSIS 2020-01-17 17:58:[facility] - [facility] 2020-01-17 17:58:00 Delmy [facility] GC & CHLAMYDIA AMPLIFIED ASSAY 2020-01-17 17:58:00 Delmy [facility] CONSENT/REFUSAL FOR DIAGNOSIS AND TREATMENT 2020-01-17 17:29:40 Doctor Unassigned, [facility] ASSIGNMENT OF BENEFITS 2020-01-17 17:29:28 Docto r Unassigned, [facility] AMYLASE 2020-01-09 23:19:00 Gustabo Brock [facility] LIPASE 2020-01-09 23:19:00 Delmy [facility] COMP. METABOLIC PANEL ([id number]) 2020-01-09 23:19:00 Gustabo Brock [facility] CBC WITH DIFFERENTIAL 2020-01-09 23:19:00 Delmy Gustabo wu [facility] URINALYSIS 2020-01-09 23:19:00 Gustabo Brock [facility] CONSENT/REFUSAL FOR DIAGNOSIS AND TREATMENT 2020-01-09 22:45:36 Doctor Unassigned, [facility] ASSIGNMENT OF BENEFITS 2020-01-09 22:45:24 Docto r Unassigned, [facility] ASSIGNMENT OF BENEFITS 2019-12-19 22:23:27 Docto r Unassigned, [facility] POCT URINALYSIS W/O SPECIFIC GRAVITY 2019-12-19 00:00:00 Gustabo Brock [facility] NO SHOW OR MISSED APPOINTMENT POLICY ACKNOWLEDGEMENT 2019-07-29 19:40:43 Doctor Unassigned, [facility] Encounters Start Date/Time End Date/Time Encounter Type Admission Type Attending Clinicians Care Facility Care Department Encounter ID Source 2024-07-11 08:31:[id number] [facility] 2024-06-06 15:56:00 [facility] [id number] [facility] 2023-07-17 11:08:00 [facility] [id number] [facility] 2023-07-07 09:13:00 [facility] [id number] [facility] 2023-05-08 10:45:00 [facility] [id number] [facility] 2023-05-04 08:26:01 [facility] [id number] [facility] 2023-04-07 16:47:00 [facility] [id number] [facility] 2023-03-20 11:58:00 [facility] [id number] [facility] 2023-02-09 10:09:02 [facility] [id number] [facility] 2023-01-01 08:23:01 [facility] [id number] [facility] 2022-12-04 16:48:00 [facility] [id number] [facility] 2022-11-28 10:13:01 [facility] [id number] [facility] 2022-11-27 08:45:02 Outpatient Back, Alonso [facility] STLMLC [id number] [facility] 2022-09-05 04:58:31 Outpatient X [facility] [id number] [facility] 2022-08-06 19:14:58 Outpatient P [facility] [id number] [facility] 2022-07-09 14:45:01 Outpatient Back, Alonso [facility] STLMLC [id number] [facility] 2022-04-10 16:49:01 Outpatient Back, Alonso STL[facility] STLMLC [id number] [facility] 2022-01-13 14:12:01 Outpatient Back, Alonso [facility] STLMLC [id number] [facility] 2021-12-13 13:03:02 Outpatient Back, Alonso [facility] STLMLC [id number] [facility] 2021-12-11 14:38:17 Outpatient Back, Alonso [facility] STLMLC [id number] [facility] 2021-12-11 14:37:23 Outpatient Back, Alonso [facility] STLMLC [id number] [facility] 2021-12-11 14:36:09 Outpatient Back, Alonso [facility] STLMLC [id number] [facility] 2021-12-11 14:29:00 Outpatient Back, Alonso [facility] STLMLC [id number] [facility] 2021-12-11 14:18:29 Outpatient Back, Alonso STLMLC STLMLC [id number] [facility] 2021-12-11 14:10:51 Outpatient Bel AltonNeema STLMLC STLMLC [id number] [facility] 2021-12-11 13:38:13 Outpatient Back, Alonso [facility] STLMLC [id number] [facility] 2021-12-11 12:49:55 Outpatient Back, Alonso [facility] ST[facility] [id number] [facility] 2021-12-11 12:48:47 [facility] [id number] [facility] 2021-12-11 12:29:07 Outpatient Back, Alonso [facility] STLMLC [id number] [facility] 2021-12-11 12:23:04 Outpatient Back, Alonso [facility] STLMLC [id number] [facility] 2021-12-11 12:15:33 [facility] Back, [facility] [id number] [facility] 2021-12-11 12:11:06 Outpatient Back, [facility] [id number] [facility] 2021-12-11 12:07:48 Outpatient Back, [facility] [id number] [facility] 2021-12-11 12:07:23 Outpatient Back, [facility] [id number] [facility] 2021-12-11 12:01:42 Outpatient Back, [facility] [id number] [facility] 2021-09-15 11:27:03 Emergency RIMB RIMB [id number] [facility] 2021-09-12 19:48:53 Outpatient P [facility] [id number] [facility] 2021-09-12 19:10:49 Outpatient P [facility] [id number] [facility] 2021-09-12 14:24:30 Outpatient P [facility] [id number] [facility] 2021-09-12 12:37:40 Outpatient P [facility] [id number] [facility] 2021-09-12 10:46:13 Outpatient P [facility] [id number] [facility] 2024-12-01 16:30:00 2024-12-01 16:30:00 Outpatient R [facility]OCK [facility] [id number] [facility] 2024-10-13 00:00:00 2024-11-19 18:19:36 Patient Secure Msg [facility] [id number] [facility] 2024-10-18 00:00:00 2024-11-19 18:16:33 Patient Secure Msg Doctor Unassigned, Taylor Doctor Unassigned, Taylor [facility] [id number] 4.2.7.2.686 [id number] 134 [id number] [facility] 2024-11-15 00:00:00 2024-11-15 13:41:12 Patient Secure Msg Gustabo [facility] 1.2.840.114 350.1.13.10 4.2.7.2.686 [id number] 134 [id number] [facility] 2024-11-14 00:00:00 2024-11-15 10:01:23 [facility] M[facility] 1.2.840.114 350.1.13.10 4.2.7.2.686 [id number] 134 [id number] [facility] 2024-10-27 00:00:00 2024-11-03 13:36:18 Patient Secure Msg [facility] 1.2.840.114 350.1.13.10 4.2.7.2.686 [id number] 134 [id number] [facility] 2024-11-03 09:30:00 2024-11-03 10:05:44 Outpatient R GUSTABO BROCK VIEN [facility] [id number] [facility] 2024-11-03 09:30:00 2024-11-03 10:05:44 Office Visit Gustabo Brock Vincent [facility] NAL BUILD[facility] 1..840.114 350.1.13.10 4.2.7.2.686 [id number] 134 [id number] [facility] 2024-10-28 11:45:00 2024-10-28 12:00:00 Gold Frame Assembler Visit 2, Adc Lab Gustabo Brock Vincent 2, Adc [facility] 1..840.114 350.1.13.10 4.2.7.2.686 [id number] 353 [id number] [facility] 2024-10-28 11:45:00 2024-10-28 11:45:00 Outpatient R GUSTABO BROCK VIEN [facility] [id number] [facility] 2024-10-22 11:00:00 2024-10-22 11:00:00 Outpatient R [facility] [id number] [facility] 2024-10-20 10:00:00 2024-10-20 10:15:00 Gold Frame Assembler Visit 2, Adc Lab Gustabo Brock Vincent 2, Adc Lab [facility] 1.2.840.114 350.1.13.10 4.2.7.2.686 [id number] 353 [id number] [facility] 2024-10-20 10:00:00 2024-10-20 10:00:00 Outpatient R GUSTABO BROCK VIEN [facility] [id number] [facility] 2024-10-19 00:00:00 2024-10-19 08:38:40 Case Management Delmy Gustabo Bundy [facility] 1.2.840.114 350.1.13.10 4.2.7.2.686 [id number] 134 [id number] [facility] 2024-10-18 12:00:00 2024-10-18 12:15:00 Gold Frame Assembler Visit 2, Adc Lab Gustabo Brock Vincent 2, Adc Lab [facility] 1.2.840.114 350.1.13.10 4.2.7.2.686 [id number] [facility] 2024-10-18 11:00:00 2024-10-18 11:39:09 Outpatient R GUSTABO BROCK VIEN [facility] [id number] [facility] 2024-10-18 11:00:00 2024-10-18 11:39:09 Office Visit Delmy Gustabo Bundy [facility] 1.2.840.114 350.1.13.10 4.2.7.2.686 [id number] 134 [id number] [facility] 2024-09-16 00:00:00 2024-09-16 00:00:00 (TEL) STLMLC STLMLC [id number] [facility] 2024-09-12 00:00:00 2024-09-12 00:00:00 (TEL) STLMLC STLMLC [id number] [facility] 2024-08-29 00:00:00 2024-08-29 00:00:00 (TEL) STLMLC STLMLC [id number] [facility] 2024-08-23 00:00:00 2024-08-23 00:00:00 (TEL) STLMLC STLMLC [id number] [facility] 2024-08-16 00:00:00 2024-08-16 00:00:00 OFFICE VISIT ESTAB PT LEVEL 4 STLMLC STLMLC [id number] [facility] 2024-08-02 11:30:00 2024-08-02 11:30:00 Outpatient MILY JIANG [facility] [id number] [facility] 2024-07-24 11:40:00 2024-07-24 12:57:39 Outpatient R DEBBIE BECK [facility] [id number] [facility] 2024-07-24 11:40:00 2024-07-24 12:57:39 Urgent Care Debbie Beck Unknown, Attending [facility] 1.2.840.114 350.1.13.10 4.2.7.2.686 [id number] [facility] 2024-07-19 11:15:00 2024-07-19 12:06:35 Outpatient MILY JIANG [facility] [id number] [facility] 2024-07-19 11:15:00 2024-07-19 12:06:35 Office Visit Mily Manning [facility] 1.2.840.114 350.1.13.10 4.2.7.2.686 [id number] 134 [id number] [facility] 2024-07-08 00:00:00 2024-07-08 00:00:00 (TEL) STLC STLMLC [id number] [facility] 2024-05-31 00:00:00 2024-07-02 18:20:40 Patient Secure MsGustabo Blackwood [facility] 1.2.840.114 350.1.13.10 4.2.7.2.686 [id number] 134 [id number] [facility] 2024-06-24 10:00:00 2024-06-24 10:00:00 Outpatient MILY JIAGN [facility] [id number] [facility] 2024-05-03 00:00:00 2024-06-04 18:18:22 Patient Secure MsGustabo Blackwood [facility] 1.2.840.114 350.1.13.10 4.2.7.2.686 [id number] 134 [id number] [facility] 2024-06-03 00:00:00 2024-06-03 12:46:07 Patient Secure g Mily Manning [facility] 1.2.840.114 350.1.13.10 4.2.7.2.686 [id number] 134 [id number] [facility] 2024-06-02 00:00:00 2024-06-02 15:22:00 Patient Secure g Mily Manning [facility] 1.2.840.114 350.1.13.10 4.2.7.2.686 [id number] 134 [id number] [facility] 2024-06-01 16:30:00 2024-06-01 17:04:45 Outpatient R MILY MANNING [facility] [id number] [facility] 2024-06-01 16:30:00 2024-06-01 17:04:45 Office Visit Edson [facility] 1.2.840.114 350.1.13.10 4.2.7.2.686 [id number] 134 [id number] [facility] 2024-04-08 16:30:00 2024-04-08 16:30:00 Outpatient R MILY MANNING [facility] [id number] [facility] 2024-04-05 00:00:00 2024-04-06 11:56:51 Patient Secure Msg Gustabo Brock Vincent [facility] 1.2.840.114 350.1.13.10 4.2.7.2.686 [id number] 134 [id number] [facility] 2024-03-14 13:30:00 2024-03-14 13:30:00 Outpatient R MILY MANNING [facility] [id number] [facility] 2023-12-28 09:00:00 2023-12-28 09:00:00 Outpatient R [facility] [id number] [facility] 2023-12-22 09:00:00 2023-12-22 09:00:00 Outpatient R [facility] [id number] [facility] 2023-12-18 00:00:00 2023-12-18 00:00:00 Patient Secure Msg Doctor Unassigned, Taylor [facility] 1..840.114 350.1.13.10 4.2.7.2.686 [id number] 134 [id number] [facility] 2023-12-17 00:00:00 2023-12-17 00:00:00 Patient Secure Msg Gustabo Brock [facility] BUILDING 1..840.114 350.1.13.10 4.2.7.2.686 [id number] 134 [id number] [facility] 2023-12-16 15:45:00 2023-12-16 16:12:23 Outpatient R GUSTABO BROCK [facility] [id number] [facility] 2023-12-16 15:45:00 2023-12-16 16:12:23 Gold Frame Assembler Visit 2, Adc Lab Gustabo Brock [facility] BUILDING 1..840.114 350.1.13.10 4.2.7.2.686 [id number] 353 [id number] [facility] 2023-12-15 11:00:00 2023-12-15 11:46:34 Outpatient R GUSTABO BROCK [facility] [id number] [facility] 2023-12-15 11:00:00 2023-12-15 11:46:34 Office Visit Gustabo Brock [facility] BUILDING 1..840.114 350.1.13.10 4.2.7.2.686 [id number] 134 [id number] [facility] 2023-12-15 00:00:00 2023-12-15 00:00:00 Orders Only Doctor Unassigned, Taylor [facility] 1..840.114 350.1.13.10 4.2.7.2.686 [id number] [facility] 2023-12-10 00:00:00 2023-12-10 00:00:00 Patient Secure Msg Gustabo Brock [facility] 1.2.840.114 350.1.13.10 4.2.7.2.686 [id number] 134 [id number] [facility] 2023-08-06 00:00:00 2023-08-06 00:00:00 (TEL) STLMLC STLMLC [id number] [facility] 2023-08-06 00:00:00 2023-08-06 00:00:00 OFFICE VISIT ESTAB PT LEVEL 3 STLMLC STLMLC [id number] [facility] 2023-07-17 00:00:00 2023-07-17 00:00:00 (TEL) STLMLC STLMLC [id number] [facility] 2023-07-09 00:00:00 2023-07-09 00:00:00 OFFICE VISIT ESTAB PT LEVEL 2 STLMLC STLMLC [id number] [facility] 2023-07-07 00:00:00 2023-07-07 00:00:00 (TEL) STLMLC STLMLC [id number] [facility] 2023-07-07 00:00:00 2023-07-07 00:00:00 OFFICE VISIT ESTAB PT LEVEL 3 STLMLC STLMLC [id number] [facility] 2023-07-06 00:00:00 2023-07-06 00:00:00 (TEL) STLMLC STLMLC [id number] [facility] 2023-07-01 00:00:00 2023-07-01 00:00:00 (TEL) STLMLC STLMLC [id number] [facility] 2023-06-26 00:00:00 2023-06-26 00:00:00 OFFICE VISIT ESTAB PT LEVEL 4 STLMLC STLMLC [id number] [facility] 2023-06-22 00:00:00 2023-06-22 00:00:00 (TEL) STLMLC STLMLC [id number] [facility] 2023-05-20 00:00:00 2023-05-20 00:00:00 (TEL) STLMLC STLMLC [id number] [facility] 2023-05-11 00:00:00 2023-05-11 00:00:00 (TEL) STLMLC STLMLC [id number] [facility] 2023-05-08 00:00:00 2023-05-08 00:00:00 OFFICE VISIT ESTAB PT LEVEL 4 STLMLC STLMLC [id number] [facility] 2023-05-02 00:00:00 2023-05-02 00:00:00 (TEL) STLMLC STLMLC [id number] [facility] 2023-04-30 00:00:00 2023-04-30 00:00:00 (WELLNESS) Wellness Visit STLMLC STLMLC [id number] [facility] 2023-04-27 00:00:00 2023-04-27 00:00:00 (TEL) STLMLC STLMLC [id number] [facility] 2023-04-16 00:00:00 2023-04-16 00:00:00 (TEL) STLMLC STLMLC [id number] [facility] 2023-04-07 00:00:00 2023-04-07 00:00:00 (TEL) STLMLC STLMLC [id number] [facility] 2023-03-24 00:00:00 2023-03-24 00:00:00 OFFICE VISIT ESTAB PT LEVEL 3 STLMLC STLMLC [id number] [facility] 2023-02-26 00:00:00 2023-02-26 00:00:00 OFFICE VISIT NEW PT LEVEL 4 STLMLC STLMLC [id number] [facility] 2023-02-16 00:00:00 2023-02-16 00:00:00 OFFICE VISIT ESTAB PT LEVEL 4 STLMLC STLMLC [id number] [facility] 2023-02-12 00:00:00 2023-02-12 00:00:00 (TEL) STLMLC STLMLC [id number] [facility] 2023-02-09 00:00:00 2023-02-09 00:00:00 (TEL) STLMLC STLMLC [id number] [facility] 2023-02-09 00:00:00 2023-02-09 00:00:00 OFFICE VISIT ESTAB PT LEVEL 3 STLMLC STLMLC [id number] [facility] 2023-01-19 11:15:00 2023-01-19 11:15:00 Outpatient ELA PORTILLO [facility] [id number] [facility] 2023-01-19 00:00:00 2023-01-19 00:00:00 (TEL) STLMLC STLMLC [id number] [facility] 2023-01-11 19:10:00 2023-01-11 21:09:00 Emergency X [facility] ERT [id number] [facility] 2023-01-11 19:10:00 2023-01-11 21:09:00 Emergency Erin Brwester [facility] 1.840.114 350.1.13.10 4.2.7.2.686 [id number] [id number] [facility] 2023-01-11 00:00:00 2023-01-11 00:00:00 Orders Only Doctor Unassigned, Taylor [facility] 1..840.114 350.1.13.10 4.2.7.2.686 [id number] [id number] [facility] 2023-01-06 00:00:00 2023-01-06 00:00:00 OFFICE VISIT ESTAB PT LEVEL 3 STLMLC STLMLC [id number] [facility] 2023-01-06 00:00:00 2023-01-06 00:00:00 (TEL) STLMLC STLMLC [id number] [facility] 2023-01-01 00:00:00 2023-01-01 00:00:00 (TEL) STLMLC STLMLC [id number] [facility] 2023-01-01 00:00:00 2023-01-01 00:00:00 (TEL) STLMLC STLMLC [id number] [facility] 2022-12-25 09:15:00 2022-12-25 09:35:10 Outpatient Eleanor RAPHAEL ELA [facility] [id number] [facility] 2022-12-25 09:15:00 2022-12-25 09:35:10 Office [facility] 1.2.840.114 350.1.13.10 4.2.7.2.686 [id number] 134 [id number] [facility] 2022-12-17 13:15:00 2022-12-17 13:15:00 Outpatient Eleanor RAPHAEL [facility] [id number] [facility] 2022-12-15 00:00:00 2022-12-15 00:00:00 Patient Secure g Gustabo Brock Vincent [facility] 1.2.840.114 350.1.13.10 4.2.7.2.686 [id number] 134 [id number] [facility] 2022-12-04 00:00:00 2022-12-04 00:00:00 (TEL) STLMLC STLMLC [id number] [facility] 2022-11-28 00:00:00 2022-11-28 00:00:00 OFFICE VISIT EST PT LEVEL 3 STLMLC STLMLC [id number] [facility] 2022-11-24 13:00:00 2022-11-24 13:00:00 Outpatient GUSTABO CARTER [facility] [id number] [facility] 2022-11-21 00:00:00 2022-11-21 00:00:00 OFFICE VISIT ESTAB PT LEVEL 4 STLMLC STLMLC [id number] [facility] 2022-11-19 00:00:00 2022-11-19 00:00:00 (TEL) STLMLC STLMLC [id number] [facility] 2022-11-05 00:00:00 2022-11-05 00:00:00 (WEB) STLMLC STLMLC [id number] [facility] 2022-11-05 00:00:00 2022-11-05 00:00:00 (TEL) STLMLC STLMLC [id number] [facility] 2022-11-05 00:00:00 2022-11-05 00:00:00 OFFICE VISIT EST PT LEVEL 3 STLMLC STLMLC [id number] [facility] 2022-11-05 00:00:00 2022-11-05 00:00:00 Patient Secure MsGustabo Blackwood [facility] 1.2.840.114 350.1.13.10 4.2.7.2.686 [id number] 134 [id number] [facility] 2022-11-04 14:45:00 2022-11-04 14:45:00 Outpatient GUSTABO CARTER [facility] [id number] [facility] 2022-11-04 08:18:00 2022-11-04 09:03:00 Emergency X SO [facility] ERT [id number] [facility] 2022-11-04 08:18:00 2022-11-04 09:03:00 Emergency So Kahn [facility] 1.284.114 350.1.13.10 4.2.7.2.686 [id number] [id number] [facility] 2022-10-31 00:00:00 2022-10-31 00:00:00 (TEL) STLMLC STLMLC [id number] [facility] 2022-10-29 00:00:00 2022-10-29 00:00:00 Telephone BrockGustabo [facility] 1.84.114 350.1.13.10 4.2.7.2.686 [id number] 134 [id number] [facility] 2022-10-27 15:00:00 2022-10-27 15:56:43 Outpatient R GUSTABO BROCK [facility] [id number] [facility] 2022-10-27 15:00:00 2022-10-27 15:56:43 Office Visit Gustabo Brock [facility] BUILDING 1.84.114 350.1.13.10 4.2.7.2.686 [id number] 134 [id number] [facility] 2022-10-27 00:00:00 2022-10-27 00:00:00 Orders Only Doctor Unassigned, Taylor [facility] 1..114 350.1.13.10 4.2.7.2.686 [id number] [id number] [facility] 2022-10-24 00:00:00 2022-10-24 00:00:00 Case Management Gustabo Brock [facility] BUILDING 1.2.114 350.1.13.10 4.2.7.2.686 [id number] 134 [id number] [facility] 2022-10-21 13:15:00 2022-10-21 13:37:20 Outpatient R GUSTABO BROCK [facility] [id number] [facility] 2022-10-21 13:15:00 2022-10-21 13:37:20 Office Visit Gustabo Brock [facility] 1.2.840.114 350.1.13.10 4.2.7.2.686 [id number] 134 [id number] [facility] 2022-10-21 00:00:00 2022-10-21 00:00:00 Patient Secure Msg Evelyne Sutton [facility] 1.2.840.114 350.1.13.10 4.2.7.2.686 [id number] 134 [id number] [facility] 2022-10-15 00:00:00 2022-10-15 00:00:00 Patient Secure Msg [place] [facility] 1.2.840.114 350.1.13.10 4.2.7.2.686 [id number] 134 [id number] [facility] 2022-09-25 00:00:00 2022-09-25 00:00:00 Letter (Out) Gustabo Brock [facility] 1.2.840.114 350.1.13.10 4.2.7.2.686 [id number] 134 [id number] [facility] 2022-09-24 11:15:00 2022-09-24 11:57:43 Outpatient R GUSTABO BROCK [facility] [id number] [facility] 2022-09-24 11:15:00 2022-09-24 11:57:43 Routine Visit Gustabo Brock [facility] 1.2.840.114 350.1.13.10 4.2.7.2.686 [id number] 134 [id number] [facility] 2022-09-22 00:00:00 2022-09-22 00:00:00 Patient Secure Msg Doctor Unassigned, Taylor [facility] 1.2840.114 350.1.13.10 4.2.7.2.686 [id number] [facility] 2022-09-15 00:00:00 2022-09-15 00:00:00 Telephone Gustabo Brock [facility] 1.2840.114 350.1.13.10 4.2.7.2.686 [id number] 134 [id number] [facility] 2022-09-08 04:16:00 2022-09-09 18:08:00 Inpatient P GUSTABO BROCK [facility] GU[facility] [id number] [facility] 2022-09-08 04:16:00 2022-09-09 18:08:00 Hospital Encounter Gustabo Brock [facility] 1.2840.114 350.1.13.10 4.2.7.2.686 [id number] 083 [id number] [facility] 2022-09-08 12:01:00 2022-09-08 17:01:00 Anesthesia Event Chago Bonilla Bradley [facility] 1.2840.114 350.1.13.10 4.2.7.2.686 [id number] [id number] [facility] 2022-09-08 12:13:59 2022-09-08 12:13:59 Anesthesia Event Korey Eubanks [facility] 1.2840.114 350.1.13.10 4.2.7.2.686 [id number] [id number] [facility] 2022-09-05 01:52:00 2022-09-05 04:48:00 Outpatient X ADPAIGE [facility] [id number] [facility] 2022-09-05 01:52:00 2022-09-05 04:48:00 Emergency AdPaige gonzalez [facility] 1.2.840.114 350.1.13.10 4.2.7.2.686 [id number] [id number] [facility] 2022-09-05 00:00:00 2022-09-05 00:00:00 Patient Secure Msg [place] Su [facility] 1.2.840.114 350.1.13.10 4.2.7.2.686 [id number] 134 [id number] [facility] 2022-09-05 00:00:00 2022-09-05 00:00:00 Patient Secure Msg Doctor Unassigned, Taylor [facility] 1.284.114 350.1.13.10 4.2.7.2.686 [id number] 134 [id number] [facility] 2022-09-03 10:45:00 2022-09-03 12:05:25 Outpatient R GUSTABO BROCK [facility] [id number] [facility] 2022-09-03 10:45:00 2022-09-03 12:05:25 Routine Visit Gustabo Brock [facility] 1.2.840.114 350.1.13.10 4.2.7.2.686 [id number] 134 [id number] [facility] 2022-09-01 23:27:00 2022-09-02 01:04:00 Outpatient X GUSTABO BROCK [facility] [id number] [facility] 2022-09-01 23:27:00 2022-09-02 01:04:00 Emergency Gustabo Brock [facility] 1.284.114 350.1.13.10 4.2.7.2.686 [id number] 083 [id number] [facility] 2022-08-29 00:00:00 2022-08-29 00:00:00 Patient Secure Msg Doctor Unassigned, Taylor [facility] 1.2.114 350.1.13.10 4.2.7.2.686 [id number] [id number] [facility] 2022-08-26 16:00:00 2022-08-26 16:12:03 Outpatient R DELMY GUSTABO [facility] [id number] [facility] 2022-08-26 16:00:00 2022-08-26 16:12:03 Routine Visit Gustabo Brock [facility] 1.840.114 350.1.13.10 4.2.7.2.686 [id number] 134 [id number] [facility] 2022-08-26 00:00:00 2022-08-26 00:00:00 Orders Only Doctor Unassigned, Taylor [facility] 1.0.114 350.1.13.10 4.2.7.2.686 [id number] [id number] [facility] 2022-08-21 13:00:00 2022-08-21 16:37:05 Outpatient R RAISSA PEREA [facility] [id number] [facility] 2022-08-21 13:00:00 2022-08-21 16:37:05 Ancillary Visit Lyndsay Pritchard Craig L [facility] 1.840.114 350.1.13.10 4.2.7.2.686 [id number] [facility] 2022-08-19 00:00:00 2022-08-19 00:00:00 Patient Secure Msg Gustabo Brock [facility] 1.284.114 350.1.13.10 4.2.7.2.686 [id number] 134 [id number] [facility] 2022-08-15 00:00:00 2022-08-15 00:00:00 Patient Secure Msg Gustabo Brock [facility] BUILDING 1.840.114 350.1.13.10 4.2.7.2.686 [id number] 134 [id number] [facility] 2022-08-12 13:45:00 2022-08-12 14:17:28 Outpatient R GUSTABO BROCK [facility] [id number] [facility] 2022-08-12 13:45:00 2022-08-12 14:17:28 Routine Visit Gustabo Brock [facility] 1.2840.114 350.1.13.10 4.2.7.2.686 [id number] 134 [id number] [facility] 2022-08-06 17:23:00 2022-08-06 18:44:00 Outpatient P PAIGE [facility]A [facility] [id number] [facility] 2022-08-06 17:23:00 2022-08-06 18:44:00 Hospital Encounter Paige Alcala [facility] 1.840.114 350.1.13.10 4.2.7.2.686 [id number] [id number] [facility] 2022-08-06 00:00:00 2022-08-06 00:00:00 Patient Secure Msg Doctor Unassigned, Taylor [facility] 1.2.840.114 350.1.13.10 4.2.7.2.686 [id number] 134 [id number] [facility] 2022-07-29 13:15:00 2022-07-29 13:58:44 Outpatient R GUSTABO BROCK [facility] [id number] [facility] 2022-07-29 13:15:00 2022-07-29 13:58:44 Routine Visit Ela Raphael Gustabo [facility] 1.2.840.114 350.1.13.10 4.2.7.2.686 [id number] 134 [id number] [facility] 2022-07-28 16:15:00 2022-07-28 16:15:00 Outpatient R GUSTABO BROCK [facility] [id number] [facility] 2022-07-28 00:00:00 2022-07-28 00:00:00 Patient Secure Msg Doctor Unassigned, Taylor [facility] 1..840.114 350.1.13.10 4.2.7.2.686 [id number] [facility] 2022-07-22 09:45:00 2022-07-22 10:16:58 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, Adc Regino Hale [facility] 1..840.114 350.1.13.10 4.2.7.2.686 [id number] 134 [id number] [facility] 2022-07-22 09:45:00 2022-07-22 09:45:00 Outpatient REGINO KINGSLEY [facility] [id number] [facility] 2022-07-14 00:00:00 2022-07-14 00:00:00 OFFICE VISIT EST PT LEVEL 3 STLMLC STLC [id number] [facility] 2022-07-14 00:00:00 2022-07-14 00:00:00 (TEL) STLMLC STLMLC [id number] [facility] 2022-07-11 00:00:00 2022-07-11 00:00:00 Patient Secure Msg Brock Gustabo [facility] 1..840.114 350.1.13.10 4.2.7.2.686 [id number] 134 [id number] [facility] 2022-07-08 14:45:00 2022-07-08 15:38:39 Outpatient R GUSTABO BROCK [facility] [id number] [facility] 2022-07-08 14:45:00 2022-07-08 15:38:39 Routine Visit Gustabo [facility] 1..840.114 350.1.13.10 4.2.7.2.686 [id number] 134 [id number] [facility] 2022-07-08 00:00:00 2022-07-08 00:00:00 Patient Secure Msg Gustabo Brock [facility] 1.2.840.114 350.1.13.10 4.2.7.2.686 [id number] 134 [id number] [facility] 2022-07-08 00:00:00 2022-07-08 00:00:00 (TEL) STLMLC STLMLC [id number] [facility] 2022-07-07 11:00:00 2022-07-07 11:00:00 Outpatient R GUSTABO BROCK [facility] [id number] [facility] 2022-07-01 09:00:00 2022-07-01 11:59:47 Nurse Visit Nurse, [facility] Gustabo Brock [facility] 1..840.114 350.1.13.10 4.2.7.2.686 [id number] 134 [id number] [facility] 2022-07-01 09:00:00 2022-07-01 09:00:00 Outpatient R BROCKLADANEN [facility] [id number] [facility] 2022-06-30 09:00:00 2022-06-30 09:00:00 Outpatient R ELA RAPHAEL [facility] [id number] [facility] 2022-06-30 00:00:00 2022-06-30 00:00:00 Patient Secure [place] [facility] 1.2.840.114 350.1.13.10 4.2.7.2.686 [id number] 134 [id number] [facility] 2022-06-30 00:00:00 2022-06-30 00:00:00 Patient Secure Msg Gustabo Brock [facility] 1.2840.114 350.1.13.10 4.2.7.2.686 [id number] 134 [id number] [facility] 2022-06-27 00:00:00 2022-06-27 00:00:00 Nurse Triage Ela Wick [facility] 1.20.114 350.1.13.10 4.2.7.2.686 [id number] [facility] 2022-06-27 00:00:00 2022-06-27 00:00:00 Patient Secure Msg Doctor Unassigned, Taylor [facility] 1.20.114 350.1.13.10 4.2.7.2.686 [id number] [facility] 2022-06-24 08:45:00 2022-06-24 09:00:00 Gold Frame Assembler Visit 2, [facility] Gustabo Brock [facility] 1.2840.114 350.1.13.10 4.2.7.2.686 [id number] [facility] 2022-06-24 08:45:00 2022-06-24 08:45:00 Outpatient R GUSTABO BROCK [facility] [id number] [facility] 2022-06-23 10:00:00 2022-06-23 10:49:38 Outpatient R GUSTABO BROCK [facility] [id number] [facility] 2022-06-23 10:00:00 2022-06-23 10:49:38 Routine Visit Gustabo Brock [facility] 1.2.840.114 350.1.13.10 4.2.7.2.686 [id number] 134 [id number] [facility] 2022-06-20 10:15:00 2022-06-20 10:15:00 Outpatient R GUSTABO BROCK [facility] [id number] [facility] [facility] 2022-[facility]-20 00:00:00 2022-06-20 00:00:00 Patient Secure Msg [place] [facility] 1.2.840.114 350.1.13.10 4.2.7.2.686 [id number] 134 [id number] [facility] 2022-06-20 00:00:00 2022-06-20 00:00:00 Patient Secure Msg Doctor Unassigned, [place] [facility] 1.2.840.114 350.1.13.10 4.2.7.2.686 [id number] 134 [id number] [facility] 2022-06-16 00:00:00 2022-06-16 00:00:00 Ela Valero [facility] 1.2.840.114 350.1.13.10 4.2.7.2.686 [id number] 134 [id number] [facility] 2022-06-16 00:00:00 2022-06-16 00:00:00 Patient Secure Msg Gustabo Brock Vincent [facility] 1.2.840.114 350.1.13.10 4.2.7.2.686 [id number] 134 [id number] [facility] 2022-06-13 00:00:00 2022-06-13 00:00:00 Letter (Out) Angelica Ni [facility] 1.2.840.114 350.1.13.10 4.2.7.2.686 [id number] [facility] 2022-06-12 11:00:00 2022-06-12 11:00:00 Outpatient R GUSTABO BROCK [facility] [id number] [facility] 2022-06-12 03:14:00 2022-06-12 04:24:00 Emergency X VANDANA NARAYANAN [facility] ERT [id number] [facility] 2022-06-12 03:14:00 2022-06-12 04:24:00 Emergency Vandana Narayanan [facility] 1.2.840.114 350.1.13.10 4.2.7.2.686 [id number] [facility] 2022-06-12 00:00:00 2022-06-12 00:00:00 Patient Secure Msg Gustabo Brock [facility] BUILDING 1.2840.114 350.1.13.10 4.2.7.2.686 [id number] 134 [id number] [facility] 2022-06-12 00:00:00 2022-06-12 00:00:00 OFFICE VISIT EST [facility] [id number] 2022-06-11 09:30:00 2022-06-11 09:45:00 Laboratory Only Only, Ang Db Test Janine Watkins [facility] 1..840.114 350.1.13.10 4.2.7.2.686 [id number] 370 [id number] [facility] 2022-06-11 09:30:00 2022-06-11 09:30:00 Outpatient R JANINE WATKINS [facility] [id number] [facility] 2022-06-11 00:00:00 2022-06-11 00:00:00 [facility]EL[facility] [id number] [facility] 2022-06-10 00:00:00 2022-06-10 00:00:00 Patient Secure Msg Gustabo Brock [facility] BUILDING 1.2.840.114 350.1.13.10 4.2.7.2.686 [id number] 134 [id number] [facility] 2022-05-13 13:00:00 2022-05-13 13:27:09 Routine Visit Gustabo Brock [facility] BU[facility]ING 1.2.840.114 350.1.13.10 4.2.7.2.686 [id number] 134 [id number] [facility] 2022-05-13 11:00:00 2022-05-13 11:47:03 Outpatient P LEILA Savage HERRERA [facility] [id number] [facility] 2022-05-13 11:00:00 2022-05-13 11:47:03 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, [facility] Leila savage [facility] 1.2.840.114 350.1.13.10 4.2.7.2.686 [id number] 134 [id number] [facility] 2022-04-24 13:00:00 2022-04-24 13:21:13 Outpatient R GUSTABO BROCK [facility] [id number] [facility] 2022-04-24 13:00:00 2022-04-24 13:21:13 Routine Visit Gustabo Brock [facility] BUILDING 1..840.114 350.1.13.10 4.2.7.2.686 [id number] 134 [id number] [facility] 2022-04-24 00:00:00 2022-04-24 00:00:00 Patient Secure Msg Neena Card[facility] 1.2.840.114 350.1.13.10 4.2.7.2.686 [id number] 134 [id number] [facility] 2022-04-18 00:00:00 2022-04-18 00:00:00 Patient Secure Msg Gustabo Brock [facility] 1.2.840.114 350.1.13.10 4.2.7.2.686 [id number] 134 [id number] [facility] 2022-04-17 11:45:00 2022-04-17 12:00:00 Gold Frame Assembler Visit 2, Adc Lab Gustabo Brock [facility] 1.2.840.114 350.1.13.10 4.2.7.2.686 [id number] [facility] 2022-04-17 11:15:00 2022-04-17 11:39:14 Outpatient R GUSTABO BROCK [facility] [id number] [facility] 2022-04-17 11:15:00 2022-04-17 11:39:14 Routine Visit Gustabo Brock [facility] 1.2.840.114 350.1.13.10 4.2.7.2.686 [id number] 134 [id number] [facility] 2022-04-10 00:00:00 2022-04-10 00:00:00 PREV VISIT EST AGE 18-39 [facility] [id number] [facility] 2022-04-02 00:00:00 2022-04-02 00:00:00 Telephone Gustabo Brock [facility] 1.2.840.114 350.1.13.10 4.2.7.2.686 [id number] 134 [id number] [facility] 2022-03-27 00:00:00 2022-03-27 00:00:00 (TEL) [facility] STLC [id number] [facility] 2022-03-21 00:00:00 2022-03-21 00:00:00 Patient Secure Msg Doctor Unassigned, [place] [facility] 1.2.840.114 350.1.13.10 4.2.7.2.686 [id number] 134 [id number] [facility] 2022-03-20 11:00:00 2022-03-20 11:50:41 Outpatient R LADAN BROCKEN [facility] [id number] [facility] 2022-03-20 11:00:00 2022-03-20 11:50:41 Routine Visit Ijeoma Ela BrockGustabo [facility] PROFESSIO NAL BUILDING 1.2.840.114 350.1.13.10 4.2.7.2.686 [id number] 134 [id number] [facility] 2022-03-20 00:00:00 2022-03-20 00:00:00 Orders Only Doctor Unassigned, Taylor [facility] 1.20.114 350.1.13.10 4.2.7.2.686 [id number] [id number] [facility] 2022-03-10 00:00:00 2022-03-10 00:00:00 Patient Secure Msg Gustabo Brock [facility] BUILDING 1.2.840.114 350.1.13.10 4.2.7.2.686 [id number] 134 [id number] [facility] 2022-03-06 00:00:00 2022-03-06 00:00:00 Telephone Gustabo Brock [facility] NAL BUILDING 1.2.840.114 350.1.13.10 4.2.7.2.686 [id number] 134 [id number] [facility] 2022-02-28 09:00:00 2022-02-28 09:00:00 Outpatient R BROCK GUSTABO [facility] [id number] [facility] 2022-02-21 08:30:00 2022-02-21 08:45:00 Gold Frame Assembler Visit 2, [facility] 1.2.840.114 350.1.13.10 4.2.7.2.686 [id number] [facility] 2022-02-21 08:30:00 2022-02-21 08:30:00 Outpatient R GUSTABO BROCK [facility] [id number] [facility] 2022-02-19 00:00:00 2022-02-19 00:00:00 Case Management Marialuisa Martinez [facility] 1.2840.114 350.1.13.10 4.2.7.2.686 [id number] 134 [id number] [facility] 2022-02-19 00:00:00 2022-02-19 00:00:00 Patient Secure Msg Juan [facility] 1.2840.114 350.1.13.10 4.2.7.2.686 [id number] 134 [id number] [facility] 2022-02-19 00:00:00 2022-02-19 00:00:00 Patient Secure Gustabo Brock [facility] PROFESSIO NAL BUILDING 1.20.114 350.1.13.10 4.2.7.2.686 [id number] 134 [id number] [facility] 2022-02-18 11:00:00 2022-02-18 11:23:07 Outpatient R GUSTABO BROCK [facility] [id number] [facility] 2022-02-18 11:00:00 2022-02-18 11:23:07 Initial Visit Gustabo Brock [facility] PROFESSIO NAL BUILDING 1.20.114 350.1.13.10 4.2.7.2.686 [id number] 134 [id number] [facility] 2022-02-18 00:00:00 2022-02-18 00:00:00 Orders Only Doctor Unassigned, Taylor [facility] 1.2840.114 350.1.13.10 4.2.7.2.686 [id number] [facility] 2022-02-07 10:45:00 2022-02-07 10:45:00 Outpatient R GUSTABO BROCK [facility] [id number] [facility] 2022-01-14 00:00:00 2022-01-14 00:00:00 Patient Secure Msg Gustabo Brock [facility] 1.2.840.114 350.1.13.10 4.2.7.2.686 [id number] 134 [id number] [facility] 2022-01-13 00:00:00 2022-01-13 00:00:00 (TEL) STLMLC STLMLC [id number] [facility] 2022-01-13 00:00:00 2022-01-13 00:00:00 OFFICE VISIT EST PT LEVEL 3 STLMLC STLMLC [id number] [facility] 2022-01-09 00:00:00 2022-01-09 00:00:00 Patient Secure g Ela Raphael [facility] 1.2.840.114 350.1.13.10 4.2.7.2.686 [id number] 134 [id number] [facility] 2021-12-25 00:00:00 2021-12-25 00:00:00 OL DIG E/M SVC 11-20 MIN STLMLC STLMLC [id number] [facility] 2021-12-25 00:00:00 2021-12-25 00:00:00 (TEL) STLMLC STLMLC [id number] [facility] 2021-12-13 00:00:00 2021-12-13 00:00:00 (TEL) STLMLC STLMLC [id number] [facility] 2021-12-13 00:00:00 2021-12-13 00:00:00 OFFICE VISIT ESTAB PT LEVEL 2 STLMLC STLMLC [id number] [facility] 2021-12-13 00:00:2021-12-13 00:00:00 (TEL) STLMLC STLMLC [id number] [facility] 2021-12-05 00:00:00 2021-12-05 00:00:00 Patient Secure Ela Huang [facility] 1.2.840.114 350.1.13.10 4.2.7.2.686 [id number] 134 [id number] [facility] 2021-12-02 00:00:00 2021-12-02 00:00:00 OFFICE VISIT ESTAB PT LEVEL 1 STLMLC STLMLC [id number] [facility] 2021-12-02 00:00:00 2021-12-02 00:00:00 (TEL) STLMLC STLMLC [id number] [facility] 2021-11-28 00:00:00 2021-11-28 00:00:00 Patient Secure Msg Rap[facility] 1.2.840.114 350.1.13.10 4.2.7.2.686 [id number] 134 [id number] [facility] 2021-11-15 00:00:00 2021-11-15 00:00:00 Patient Secure Msg Raphael [facility] 1.2.840.114 350.1.13.10 4.2.7.2.686 [id number] 134 [id number] [facility] 2021-11-12 00:00:00 2021-11-12 00:00:00 OL DIG E/M SVC 11-20 MIN STLMLC STLMLC [id number] [facility] 2021-11-11 00:00:00 2021-11-11 00:00:00 (TEL) STLMLC STLMLC [id number] [facility] 2021-11-06 10:30:00 2021-11-06 10:30:00 Outpatient Eleanor [facility] [id number] [facility] 2021-10-15 00:00:00 2021-10-15 00:00:00 (TEL) STLMLC STLMLC [id number] [facility] 2021-10-15 00:00:00 2021-10-15 00:00:00 (TEL) STLMLC STLMLC [id number] [facility] 2021-10-15 00:00:00 2021-10-15 00:00:00 OFFICE VISIT EST PT LEVEL 3 STLMLC STLMLC [id number] [facility] 2021-09-30 11:45:00 2021-09-30 11:24:49 [facility] [id number] [facility] 2021-09-30 09:11:25 2021-09-30 09:26:25 Telemedici ne Visit [facility]je[facility] NAL BUILDING 1.2.840.114 350.1.13.10 4.2.7.2.686 [id number] 134 [id number] [facility] 2021-09-20 00:00:00 2021-09-20 00:00:00 Patient Secure Msg Ije[facility] NAL BUILDING 1.2.840.114 350.1.13.10 4.2.7.2.686 [id number] 134 [id number] [facility] 2021-09-19 18:30:00 2021-09-19 19:32:34 Outpatient R REEMA SMALLS [facility] [id number] [facility] 2021-09-19 18:25:51 2021-09-19 18:40:51 Laboratory Only Only, Ang Db Test [facility] 1.2.840.114 350.1.13.10 4.2.7.2.686 [id number] 370 [id number] [facility] 2021-09-02 00:00:00 2021-09-02 00:00:00 (TEL) STLMLC STLMLC [id number] [facility] 2021-09-02 00:00:00 2021-09-02 00:00:00 OFFICE VISIT EST PT LEVEL 3 STLMLC STLMLC [id number] [facility] 2021-08-29 00:00:00 2021-08-29 00:00:00 [facility] 1.2.840.114 350.1.13.10 4.2.7.2.686 [id number] 134 [id number] [facility] 2021-08-26 00:00:00 2021-08-26 00:00:00 Refill Ijeoma [facility] Building 1..840.114 350.1.13.10 4.2.7.2.686 [id number] 134 [id number] [facility] 2021-07-26 00:00:00 2021-07-26 00:00:00 (COVID Inj) COVID Injection STLMLC STLMLC [id number] [facility] 2021-07-23 00:00:00 2021-07-23 00:00:00 Letter (Out) Angelica Ni [facility] 1.84.114 350.1.13.10 4.2.7.2.686 [id number] 019 [id number] [facility] 2021-07-22 10:31:38 2021-07-22 10:46:38 Laboratory Only Only, Ang Db Test Marcella Curtis [facility] 1.284.114 350.1.13.10 4.2.7.2.686 [id number] 370 [id number] [facility] 2021-07-22 10:30:00 2021-07-22 10:30:00 Outpatient R [facility] [id number] [facility] 2021-07-12 00:00:00 2021-07-12 00:00:00 [facility] 1.2840.114 350.1.13.10 4.2.7.2.686 [id number] 134 [id number] [facility] 2021-07-12 00:00:00 2021-07-12 00:00:00 Orders Only Doctor Unassigned, Taylor [facility] 1.20.114 350.1.13.10 4.2.7.2.686 [id number] [id number] [facility] 2021-06-28 00:00:00 2021-06-28 00:00:00 (COVID Inj) COVID Injection STLMLC STLMLC [id number] [facility] 2021-06-27 10:59:25 2021-06-27 11:39:22 Office Visit Ijeoma [facility] 1.2840.114 350.1.13.10 4.2.7.2.686 [id number] 134 [id number] [facility] 2021-06-27 10:45:00 2021-06-27 10:45:00 [facility] [id number] [facility] 2021-06-27 00:00:00 2021-06-27 00:00:00 Orders Only Doctor Unassigned, Taylor [facility] 1.2840.114 350.1.13.10 4.2.7.2.686 [id number] [facility] 2021-06-20 00:00:00 2021-06-20 00:00:00 Refill Ijeoma [facility] 1.2840.114 350.1.13.10 4.2.7.2.686 [id number] 134 [id number] [facility] 2021-06-16 00:00:00 2021-06-16 00:00:00 Ela Valero [facility] 1.2.840.114 350.1.13.10 4.2.7.2.686 [id number] 134 [id number] [facility] 2021-06-04 00:00:00 2021-06-04 00:00:00 Patient Secure Ela Huang [facility] 1.2.840.114 350.1.13.10 4.2.7.2.686 [id number] 134 [id number] [facility] 2021-05-06 10:00:00 2021-05-06 10:00:00 Outpatient [facility] [id number] [facility] 2021-04-23 00:00:00 2021-04-23 00:00:00 OFFICE VISIT EST PT LEVEL 3 STLMLC STLMLC [id number] [facility] 2021-03-25 00:00:00 2021-03-25 00:00:00 Outpatient STLMLC STLMLC [id number] [facility] 2021-03-18 00:00:00 2021-03-18 00:00:00 Patient Secure Msg Raphael [facility] 1.2.840.114 350.1.13.10 4.2.7.2.686 [id number] 134 [id number] [facility] 2021-02-22 00:00:00 2021-02-22 00:00:00 Outpatient STLMLC STLMLC [id number] [facility] 2021-02-22 00:00:00 2021-02-22 00:00:00 Outpatient STLMLC STLMLC [id number] [facility] 2021-02-22 00:00:00 2021-02-22 00:00:00 Outpatient STLMLC STLMLC [id number] [facility] 2021-02-20 20:37:00 2021-02-21 02:00:00 Emergency Elsa Car [facility] 1.2.840.114 350.1.13.10 4.2.7.2.686 [id number] [facility] 2021-02-21 00:00:00 2021-02-21 00:00:00 Patient Secure Msg Doctor Unassigned, Taylor [facility] 1.2.840.114 350.1.13.10 4.2.7.2.686 [id number] [facility] 2021-02-20 00:00:00 2021-02-20 00:00:00 Outpatient STLMLC STLMLC [id number] [facility] 2021-02-20 00:00:00 2021-02-20 00:00:00 Orders Only Doctor Unassigned, Taylor [facility] 1.2.840.114 350.1.13.10 4.2.7.2.686 [id number] [facility] 2021-01-07 15:15:00 2021-01-07 15:15:00 Outpatient ELA PORTILLO [facility] [id number] [facility] 2020-12-25 08:30:00 2020-12-25 08:30:00 Outpatient ELA PORTILLO [facility] [id number] [facility] 2020-12-24 00:00:00 2020-12-24 00:00:00 Outpatient STLMLC STLMLC [id number] [facility] 2020-12-24 00:00:00 2020-12-24 00:00:00 Outpatient STLMLC STLMLC [id number] [facility] 2020-12-21 00:00:00 2020-12-21 00:00:00 Outpatient STLMLC STLMLC [id number] [facility] 2020-12-21 00:00:00 2020-12-21 00:00:00 Outpatient STLMLC STLMLC [id number] [facility] 2020-12-19 00:00:00 2020-12-19 00:00:00 Patient Secure Msg Gustabo Brock [facility] 1..840.114 350.1.13.10 4.2.7.2.686 [id number] 134 [id number] [facility] 2020-12-17 15:00:00 2020-12-17 15:00:00 Outpatient R [facility] [id number] [facility] 2020-12-14 14:00:00 2020-12-14 14:00:00 Outpatient R [facility] [id number] [facility] 2020-12-14 00:00:00 2020-12-14 00:00:00 Telephone Gustabo Brock [facility] 1..840.114 350.1.13.10 4.2.7.2.686 [id number] 134 [id number] [facility] 2020-12-14 00:00:00 2020-12-14 00:00:00 Patient Secure Msg Doctor Unassigned, [place] [facility] ..840.114 350.1.13.10 4.2.7.2.686 [id number] [facility] 2020-12-06 00:00:00 2020-12-06 00:00:00 Outpatient STLMLC STLMLC [id number] [facility] 2020-11-20 13:30:00 2020-11-20 13:30:00 Outpatient R GUSTABO BROCK [facility] [id number] [facility] 2020-11-19 00:00:00 2020-11-19 00:00:00 Patient Secure Msg Doctor Unassigned, [place] [facility] 1.2.840.114 350.1.13.10 4.2.7.2.686 [id number] 134 [id number] [facility] 2020-11-07 00:00:00 2020-11-07 00:00:00 Outpatient STLMLC STLMLC [id number] [facility] 2020-10-22 00:00:00 2020-10-22 00:00:00 Outpatient STLMLC STLMLC [id number] [facility] 2020-10-08 00:00:00 2020-10-08 00:00:00 Outpatient STLMLC STLMLC [id number] [facility] 2020-09-18 10:43:05 2020-09-18 11:10:34 Nurse Visit Nurse, Psychiatric hospital [facility] 1.2.840.114 350.1.13.10 4.2.7.2.686 [id number] 134 [id number] [facility] 2020-09-18 10:30:00 2020-09-18 10:30:00 Outpatient R [facility] [id number] [facility] 2020-09-18 00:00:00 2020-09-18 00:00:00 Outpatient STLMLC STLMLC [id number] [facility] 2020-09-18 00:00:00 2020-09-18 00:00:00 Outpatient STLMLC STLMLC [id number] [facility] 2020-06-20 15:33:56 2020-06-20 16:03:49 Nurse Visit Nurse, Psychiatric hospital [facility] Building 1.2.840.114 350.1.13.10 4.2.7.2.686 [id number] 134 [id number] [facility] 2020-06-20 15:30:00 2020-06-20 15:30:00 Outpatient R [facility] [id number] [facility] 2020-04-10 08:14:13 2020-04-10 16:33:20 [facility]medici ne [facility] 1.2.840.114 350.1.13.10 4.2.7.2.686 [id number] 134 [id number] [facility] 2020-04-10 16:00:00 2020-04-10 16:00:00 Outpatient R GUSTABO BROCK [facility] [id number] [facility] 2020-04-02 15:00:00 2020-04-02 15:00:00 [facility] [id number] [facility] 2020-03-23 16:15:00 2020-03-23 16:15:00 Outpatient R ELA RAPHAEL [facility] [id number] [facility] 2020-03-23 14:25:55 2020-03-23 14:40:55 Telemedici ne Visit Ela Raphael [facility] 1.2.840.114 350.1.13.10 4.2.7.2.686 [id number] 134 [id number] [facility] 2020-03-23 00:00:00 2020-03-23 00:00:00 Telephone Gustabo Brock [facility] Building 1.2.840.114 350.1.13.10 4.2.7.2.686 [id number] 134 [id number] [facility] 2020-03-19 12:26:00 2020-03-21 15:25:00 Hospital Encounter Gustabo Brock [facility] 1.2.840.114 350.1.13.10 4.2.7.2.686 [id number] [facility] 2020-03-15 00:00:00 2020-03-15 00:00:00 Telephone Gustabo Brock [facility] Building 1.2.840.114 350.1.13.10 4.2.7.2.686 [id number] 134 [id number] [facility] 2020-03-14 15:05:58 2020-03-14 15:59:38 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, Javier Horta Shannon [facility] MANAGER PRODUCT SUPPORT [facility] MATERNAL & CHILD HEALTH [facility] 1.2840.114 350.1.13.10 4.2.7.2.686 [id number] [facility] 2020-03-14 14:45:00 2020-03-14 14:45:00 Outpatient P JAVIER PAUL [facility] [id number] [facility] 2020-03-13 00:00:00 2020-03-13 00:00:00 Case Management [facility] 1.2.840.114 350.1.13.10 4.2.7.2.686 [id number] 134 [id number] [facility] 2020-03-12 17:02:00 2020-03-12 18:40:00 Hospital Encounter Gustabo Brock [facility] 1.20.114 350.1.13.10 4.2.7.2.686 [id number] [facility] 2020-03-12 17:02:00 2020-03-12 18:40:00 Outpatient P GUSTABO BROCK [facility] [id number] [facility] 2020-03-12 08:02:00 2020-03-12 16:15:21 Telemedici ne Visit Gustabo Brock [facility] Building 1.284.114 350.1.13.10 4.2.7.2.686 [id number] [facility] 2020-03-12 15:45:00 2020-03-12 15:45:00 Outpatient R GUSTABO BROCK [facility] [id number] [facility] 2020-03-07 15:19:14 2020-03-07 15:43:29 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, Javier Horta George R [facility] MANAGER PRODUCT SUPPORT [facility] MATERNAL & CHILD [facility] 1..114 350.1.13.10 4.2.7.2.686 [id number] [facility] 2020-03-07 15:15:00 2020-03-07 15:15:00 Outpatient P JAVIER PAUL [facility] [id number] [facility] 2020-03-05 08:44:37 2020-03-05 16:32:27 Telemedici ne Visit Gustabo Brock [facility] 1.114 350.1.13.10 4.2.7.2.686 [id number] [facility] 2020-03-05 16:15:00 2020-03-05 16:15:00 Outpatient R DELMY GUSTABO [facility] [id number] [facility] 2020-02-29 15:13:41 2020-02-29 15:54:46 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, Javier Horta Antonio F [facility] MANAGER PRODUCT SUPPORT [facility] MATERNAL & CHILD [facility] 1..114 350.1.13.10 4.2.7.2.686 [id number] [facility] 2020-02-29 15:15:00 2020-02-29 15:15:00 Outpatient P JAVIER PAUL [facility] [id number] [facility] 2020-02-27 14:38:56 2020-02-28 00:38:50 Gold Frame Assembler Visit 2, Adc Lab Gustabo Brock [facility] 1..114 350.1.13.10 4.2.7.2.686 [id number] [facility] 2020-02-27 15:35:56 2020-02-27 16:05:04 Routine Visit Gustabo Brock [facility] 1.2840.114 350.1.13.10 4.2.7.2.686 [id number] [facility] 2020-02-27 15:30:00 2020-02-27 15:30:00 Outpatient R GUSTABO BROCK [facility] [id number] [facility] 2020-02-27 00:00:00 2020-02-27 00:00:00 Orders Only Doctor Unassigned, [place] [facility] 1..114 350.1.13.10 4.2.7.2.686 [id number] [facility] 2020-02-24 00:00:00 2020-02-24 00:00:00 Telephone Gustabo Brock [facility] 1.2.114 350.1.13.10 4.2.7.2.686 [id number] [facility] 2020-02-22 15:09:08 2020-02-22 15:39:08 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, Javier Horta [facility] MANAGER PRODUCT SUPPORT [facility] 1.20.114 350.1.13.10 4.2.7.2.686 [id number] [facility] 2020-02-22 15:15:00 2020-02-22 15:15:00 Outpatient P JAVIER PAUL [facility] [id number] [facility] 2020-02-17 00:00:00 2020-02-17 00:00:00 Telephone Gustabo Brock [facility] 1.284.114 350.1.13.10 4.2.7.2.686 [id number] [facility] 2020-02-16 00:00:00 2020-02-16 00:00:00 Orders Only Doctor Unassigned, Taylor [facility] 1.2840.114 350.1.13.10 4.2.7.2.686 [id number] [facility] 2020-02-15 15:19:08 2020-02-15 15:49:08 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, [facility] Javier Paul [facility] MANAGER PRODUCT SUPPORT [facility] MATERNAL [facility] 1.2840.114 350.1.13.10 4.2.7.2.686 [id number] [facility] 2020-02-15 15:15:00 2020-02-15 15:15:00 Outpatient P JAVIER PAUL [facility] [id number] [facility] 2020-02-14 00:00:00 2020-02-14 00:00:00 Telephone Gustabo Brock [facility] 1.284.114 350.1.13.10 4.2.7.2.686 [id number] 134 [id number] [facility] 2020-02-09 14:32:03 2020-02-10 06:20:13 Telemedici ne Visit Room, [facility] Gustabo Brock [facility] 1.2.840.114 350.1.13.10 4.2.7.2.686 [id number] [facility] 2020-02-10 00:00:00 2020-02-10 00:00:00 Telephone Gustabo Brock [facility] 1.2840.114 350.1.13.10 4.2.7.2.686 [id number] [facility] 2020-02-09 15:00:00 2020-02-09 15:00:00 Outpatient R [facility] [id number] [facility] 2020-02-08 16:15:00 2020-02-08 16:15:00 Outpatient R GUSTABO BROCK [facility] [id number] [facility] 2020-02-08 15:10:44 2020-02-08 15:40:44 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, Javier Horta [facility] MANAGER PRODUCT SUPPORT [facility] MATERNAL & CHILD HEALTH [facility] 1..840.114 350.1.13.10 4.2.7.2.686 [id number] [facility] 2020-02-08 15:15:00 2020-02-08 15:15:00 Outpatient P JAVIER PAUL [facility] [id number] [facility] 2020-02-06 15:12:43 2020-02-06 15:55:07 [facility] 1.2.840.114 350.1.13.10 4.2.7.2.686 [id number] 134 [id number] [facility] 2020-02-06 15:00:00 2020-02-06 15:00:00 Outpatient R [facility] [id number] [facility] 2020-02-02 15:04:44 2020-02-02 16:05:00 Routine Visit Room, [facility] 1.2.840.114 350.1.13.10 4.2.7.2.686 [id number] [facility] 2020-02-02 15:00:00 2020-02-02 15:00:00 Outpatient R [facility] [id number] [facility] 2020-02-01 15:00:00 2020-02-01 15:00:00 Outpatient P JAVIER PAUL [facility] [id number] [facility] 2020-02-01 14:17:27 2020-02-01 14:41:33 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, Ang-MfJavier Richmond Regino Eleanor [facility] MANAGER PRODUCT SUPPORT [facility]AL [facility]ER[facility] & [facility]ILD [facility] 1..114 350.1.13.10 4.2.7.2.686 [id number] [facility] 2020-02-01 14:15:00 2020-02-01 14:15:00 Outpatient P JAVIER PAUL [facility] [id number] [facility] 2020-02-01 00:00:00 2020-02-01 00:00:00 Telephone Gustabo Brock [facility] Professio [facility] 1..114 350.1.13.10 4.2.7.2.686 [id number] [facility] 2020-01-29 05:23:00 2020-01-29 08:53:00 Hospital Encounter AngelitaCarl garcia [facility] 1..114 350.1.13.10 4.2.7.2.686 [id number] [facility] 2020-01-29 00:00:00 2020-01-29 00:00:00 Orders Only Doctor Unassigned, Taylor [facility] 1..114 350.1.13.10 4.2.7.2.686 [id number] [facility] 2020-01-25 08:40:35 2020-01-25 09:02:56 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, Ang-MfJavier Richmond [facility] MANAGER PRODUCT SUPPORT [facility] MATERNAL & CHILD [facility] 1..114 350.1.13.10 4.2.7.2.686 [id number] [facility] 2020-01-25 08:30:00 2020-01-25 08:30:00 Outpatient P JAVIER PAUL [facility] [id number] [facility] 2020-01-24 13:56:02 2020-01-24 14:37:56 [facility] 1.114 350.1.13.10 4.2.7.2.686 [id number] [facility] 2020-01-24 13:45:00 2020-01-24 13:45:00 [facility] [id number] [facility] 2020-01-20 10:22:02 2020-01-20 10:57:08 [facility]ine [facility] 1..114 350.1.13.10 4.2.7.2.686 [id number] [facility] 2020-01-20 10:15:00 2020-01-20 10:15:00 [facility] [id number] [facility] 2020-01-17 11:25:00 2020-01-18 16:20:00 Outpatient P JAVIER PAUL [facility] GUDELIA [id number] [facility] 2020-01-17 11:25:00 2020-01-18 16:20:00 Hospital En[facility] 1..114 350.1.13.10 4.2.7.2.686 [id number] [facility] 2020-01-18 10:08:04 2020-01-18 10:40:40 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, [facility] Usg Room [facility] 1.114 350.1.13.10 4.2.7.2.686 [id number] [facility] 2020-01-17 00:00:00 2020-01-17 00:00:00 [facility].0.114 350.1.13.10 4.2.7.2.686 [id number] [facility] 2020-01-16 16:15:00 2020-01-16 16:15:00 Outpatient R ELA RAPHAEL [facility] [id number] [facility] 2020-01-09 16:46:00 2020-01-09 20:10:00 Hospital Encounter Gustabo Brock [facility] 1..114 350.1.13.10 4.2.7.2.686 [id number] [facility] 2020-01-09 16:01:45 2020-01-09 16:32:38 Routine Visit Gustabo Brock [facility] 1..114 350.1.13.10 4.2.7.2.686 [id number] [facility] 2020-01-09 15:45:00 2020-01-09 15:45:00 Outpatient R GUSTABO BROCK [facility] [id number] [facility] 2020-01-09 00:00:00 2020-01-09 00:00:00 Telephone Gustabo Brock [facility] 1..114 350.1.13.10 4.2.7.2.686 [id number] [facility] 2020-01-09 00:00:00 2020-01-09 00:00:00 Orders Only Doctor Unassigned, Taylor [facility] 1.0.114 350.1.13.10 4.2.7.2.686 [id number] [facility] 2019-12-29 00:00:00 2019-12-29 00:00:00 Telephone Ela Raphael [facility] 1.0.114 350.1.13.10 4.2.7.2.686 [id number] 134 [id number] [facility] 2019-12-19 16:24:31 2019-12-19 17:08:17 Routine Visit Gustabo Brock [facility] 1.2.840.114 350.1.13.10 4.2.7.2.686 [id number] 134 [id number] [facility] 2019-12-19 00:00:00 2019-12-19 00:00:00 Orders Only Doctor Unassigned, Taylor [facility] 1.2.840.114 350.1.13.10 4.2.7.2.686 [id number] [facility] 2019-07-29 14:42:27 2019-07-29 16:13:55 Nurse Visit Nurse, [facility] Gustabo Brock [facility] 1.2.840.114 350.1.13.10 4.2.7.2.686 [id number] [facility] 2019-07-29 00:00:00 2019-07-29 00:00:00 Orders Only Doctor Unassigned, Taylor [facility] 1.2.840.114 350.1.13.10 4.2.7.2.686 [id number] [facility] Results Test Description Test Time Test Comments Results Result Co [id number]:26:00* Test Item Value Reference Range Interpretation Comme nts POCT PREG (test code = 1605) Positive On board controls acceptable with C Line (test code = 3574) Yes POCT PREG LOT # (test code = 3575) POCT PREG TEST DATE ( test code = 3576) [facility] T4 (THYROXINE)2024-08-25 00:00:00* Test Item Value Reference Range Interpretation Comme nts NUCLEATED RBCS (test code = 96581-3) 0.0 /100 WBC'S See_Comment [Automated message] The system which generated this result transmitted reference range: 0.0 /100 WBC'S. The reference range was not used to interpret this result as normal/abnormal. ABSOLUTE EOSINOPHILS (test code = 17584-9) 0.30 K/UL See_Comment [Automated message] The system which generated this result transmitted reference range: 0.00-0.50 K/UL. The reference range was not used to interpret this result as normal/abnormal. ABSOLUTE LYMPHOCYTES (test code = 90442-3) 2.80 K/UL See_Comment [Automated message] The system which generated this result transmitted reference range: 1.00-4.00 K/UL. The reference range was not used to interpret this result as normal/abnormal. ABSOLUTE MONOCYTES (test code = 21232-3) 0.44 K/UL See_Comment [Automated message] The system which generated this result transmitted reference range: 0.20-1.00 K/UL. The reference range was not used to interpret this result as normal/abnormal. ABSOLUTE NEUTROPHILS (test code = 96662-1) 2.43 K/UL See_Comment [Automated message] The system which generated this result transmitted reference range: 1.50-7.50 K/UL. The reference range was not used to interpret this result as normal/abnormal. BASOPHILS (test code = 47865-7) 0.2 % EOSINOPHILS (test code = 46913-4) 5.0 % HEMATOCRIT (test code = 54852-8) 43.4 % See_Comment [Automated message] The system which generated this result transmitted reference range: 34.0-45.0 %. The reference range was not used to interpret this result as normal/abnormal. HEMOGLOBIN (test code = 718-7) 14.4 G/DL See_Comment [Automated message] The system which generated this result transmitted reference range: 11.5-15.5 G/DL. The reference range was not used to interpret this result as normal/abnormal. LYMPHOCYTES (test code = 14287-2) 46.7 % MCH (test code = 00609-9) 28.9 PG See_Comment [Automated message] The system which generated this result transmitted reference range: 25.0-33.0 PG. The reference range was not used to interpret this result as normal/abnormal. MCHC (test code = 07538-0) 33.2 G/DL See_Comment [Automated message] The system which generated this result transmitted reference range: 31.0-36.0 G/DL. The reference range was not used to interpret this result as normal/abnormal. MCV (test code = 39603-1) 87.0 fL See_Comment [Automated message] The system which generated this result transmitted reference range: 80.0-99.0 fL. The reference range was not used to interpret this result as normal/abnormal. MONOCYTES (test code = 89608-6) 7.3 % NEUTROPHILS (test code = 20227-4) 40.6 % PLATELET COUNT (test code = 58705-4) 315 K/UL See_Comment [Automated message] The system which generated this result transmitted reference range: 130-400 K/UL. The reference range was not used to interpret this result as normal/abnormal. RBC (test code = 08165-6) 4.99 M/UL See_Comment [Automated message] The system which generated this result transmitted reference range: 3.80-5.40 M/UL. The reference range was not used to interpret this result as normal/abnormal. RDW (test code = 39229-3) 12.5 % See_Comment [Automated message] The system which generated this result transmitted reference range: 11.5-15.0 %. The reference range was not used to interpret this result as normal/abnormal. WBC (test code = 39607-1) 6.0 K/UL See_Comment [Automated message] The system which generated this result transmitted reference range: 3.5-11.0 K/UL. The reference range was not used to interpret this result as normal/abnormal. HEMOGLOBIN A1c (test code = 4548-4) 5.2 % See_Comment [Automated message] The system which generated this result transmitted reference range: 4.2-5.6 %. The reference range was not used to interpret this result as normal/abnormal. TSH, THIRD GENERATION (test code = 87685-0) <0.010 UIU/ML See_Comment L [Automated message] The system which generated this result transmitted reference range: 0.400-4.100 UIU/ML. The reference range was not used to interpret this result as normal/abnormal. APPEARANCE (test code = 5767-9) CLOUDY CLEAR A BACTERIA (test code = 35455-8) 1+ NONE SEEN A BILIRUBIN (test code = 5770-3) NEGATIVE NEGATIVE CASTS, HYALINE (test code = 46638-8) NONE SEEN NONE-TRACE COLOR (test code = 5778-6) YELLOW YELLOW-STRAW CRYSTALS (test code = 5782-8) (NOTE) NONE SEEN EPITHELIAL CELLS (test code = 26461-5) 0-5 /HPF See_Comment [Automated message] The system which generated this result transmitted reference range: 0-10 /HPF. The reference range was not used to interpret this result as normal/abnormal. GLUCOSE (test code = 5792-7) NEGATIVE NEGATIVE KETONES (test code = 5797-6) NEGATIVE NEGATIVE LEUKOCYTE ESTERASE (test code = 5799-2) NEGATIVE NEGATIVE NITRITE (test code = 5802-4) NEGATIVE NEGATIVE OCCULT BLOOD (test code = 88454-9) NEGATIVE NEGATIVE OTHER (test code = 93453-9) (NOTE) pH (test code = 5803-2) 6.0 5.0-9.0 PROTEIN (test code = 83173-3) NEGATIVE NEGATIVE RED BLOOD CELLS (test code = 67693-5) 0-2 /HPF See_Comment [Automated message] The system which generated this result transmitted reference range: 0-2 /HPF. The reference range was not used to interpret this result as normal/abnormal. SPECIFIC GRAVITY (test code = 5811-5) 1.025 1.005-1.035 UROBILINOGEN (test code = 18933-0) 0.2 MG/DL See_Comment [Automated message] The system which generated this result transmitted reference range: <=2.0 MG/DL. The reference range was not used to interpret this result as normal/abnormal. WHITE BLOOD CELLS (test code = 79720-0) 0-5 /HPF See_Comment [Automated message] The system which generated this result transmitted reference range: 0-5 /HPF. The reference range was not used to interpret this result as normal/abnormal. CALC LDL CHOL (test code = 58273-1) 86 MG/DL See_Comment [Automated message] The system which generated this result transmitted reference range: <100 MG/DL. The reference range was not used to interpret this result as normal/abnormal. CHOLESTEROL (test code = 2093-3) 147 MG/DL See_Comment [Automated message] The system which generated this result transmitted reference range: <200 MG/DL. The reference range was not used to interpret this result as normal/abnormal. HDL CHOLESTEROL (test code = 2085-9) 40 MG/DL See_Comment [Automated message] The system which generated this result transmitted reference range: >39 MG/DL. The reference range was not used to interpret this result as normal/abnormal. RISK RATIO LDL/HDL (test code = 52851-0) 2.15 RATIO See_Comment [Automated message] The system which generated this result transmitted reference range: <3.22 RATIO. The reference range was not used to interpret this result as normal/abnormal. TRIGLYCERIDES (test code = 2571-8) 117 MG/DL See_Comment [Automated message] The system which generated this result transmitted reference range: <150 MG/DL. The reference range was not used to interpret this result as normal/abnormal. ALBUMIN (test code = 1751-7) 4.3 G/DL See_Comment [Automated message] The system which generated this result transmitted reference range: 3.5-5.2 G/DL. The reference range was not used to interpret this result as normal/abnormal. ALKALINE PHOSPHATASE (test code = 6768-6) 97 U/L See_Comment [Automated message] The system which generated this result transmitted reference range: 40-115 U/L. The reference range was not used to interpret this result as normal/abnormal. BILIRUBIN, TOTAL (test code = 1975-2) 0.2 MG/DL See_Comment [Automated message] The system which generated this result transmitted reference range: <=1.2 MG/DL. The reference range was not used to interpret this result as normal/abnormal. BUN (test code = 3094-0) 10 MG/DL See_Comment [Automated message] The system which generated this result transmitted reference range: 6-20 MG/DL. The reference range was not used to interpret this result as normal/abnormal. CALCIUM (test code = 59200-4) 9.2 MG/DL See_Comment [Automated message] The system which generated this result transmitted reference range: 8.5-10.5 MG/DL. The reference range was not used to interpret this result as normal/abnormal. CALC A/G RATIO (test code = 1759-0) 1.4 RATIO See_Comment [Automated message] The system which generated this result transmitted reference range: 1.0-2.6 RATIO. The reference range was not used to interpret this result as normal/abnormal. CALC BUN/CREAT (test code = 3097-3) 22 RATIO See_Comment [Automated message] The system which generated this result transmitted reference range: 6-28 RATIO. The reference range was not used to interpret this result as normal/abnormal. CALC GLOBULIN (test code = 07017-6) 3.1 G/DL See_Comment [Automated message] The system which generated this result transmitted reference range: 1.9-3.7 G/DL. The reference range was not used to interpret this result as normal/abnormal. CARBON DIOXIDE (test code = 1963-8) 25 MEQ/L See_Comment [Automated message] The system which generated this result transmitted reference range: 19-31 MEQ/L. The reference range was not used to interpret this result as normal/abnormal. CHLORIDE (test code = 2075-0) 107 MEQ/L See_Comment [Automated message] The system which generated this result transmitted reference range: 95-107 MEQ/L. The reference range was not used to interpret this result as normal/abnormal. CREATININE (test code = 2160-0) 0.46 MG/DL See_Comment L [Automated message] The system which generated this result transmitted reference range: 0.60-1.30 MG/DL. The reference range was not used to interpret this result as normal/abnormal. eGFR (2020 CKD-EPI) (test code = 44733-6) 137 ML/MIN/1.73 See_Comment [Automated message] The system which generated this result transmitted reference range: >60 ML/MIN/1.73. The reference range was not used to interpret this result as normal/abnormal. GLUCOSE (test code = 1558-6) 91 MG/DL See_Comment [Automated message] The system which generated this result transmitted reference range: 70-99 MG/DL. The reference range was not used to interpret this result as normal/abnormal. POTASSIUM (test code = 2823-3) 4.2 MEQ/L See_Comment [Automated message] The system which generated this result transmitted reference range: 3.5-5.4 MEQ/L. The reference range was not used to interpret this result as normal/abnormal. PROTEIN, TOTAL (test code = 2885-2) 7.4 G/DL See_Comment [Automated message] The system which generated this result transmitted reference range: 6.1-8.3 G/DL. The reference range was not used to interpret this result as normal/abnormal. AST (test code = 1920-8) 19 U/L See_Comment [Automated message] The system which generated this result transmitted reference range: 9-40 U/L. The reference range was not used to interpret this result as normal/abnormal. ALT (test code = 1742-6) 44 U/L See_Comment H [Automated message] The system which generated this result transmitted reference range: 5-40 U/L. The reference range was not used to interpret this result as normal/abnormal. SODIUM (test code = 2951-2) 144 MEQ/L See_Comment [Automated message] The system which generated this result transmitted reference range: 133-146 MEQ/L. The reference range was not used to interpret this result as normal/abnormal. CORRECTED T4 (FTI) (test code = 84387-0) 19.0 UG/DL See_Comment H [Automated message] The system which generated this result transmitted reference range: 4.2-11.6 UG/DL. The reference range was not used to interpret this result as normal/abnormal. T-UPTAKE (test code = 07997-6) 41.9 % See_Comment H [Automated message] The system which generated this result transmitted reference range: 24.3-39.0 %. The reference range was not used to interpret this result as normal/abnormal. T4 (THYROXINE) (test code = 3026-2) 13.3 UG/DL See_Comment H [Automated message] The system which generated this result transmitted reference range: 4.5-10.5 UG/DL. The reference range was not used to interpret this result as normal/abnormal. THYROX. BIND. CAPAC. (test code = 80854-2) 0.7 0.8-1.3 L FREE T4 (THYROXINE) (test code = 3024-7) 2.44 NG/DL See_Comment H [Automated message] The system which generated this result transmitted reference range: 0.80-1.90 NG/DL. The reference range was not used to interpret this result as normal/abnormal. POCT Molecular [id number] 16:51:30* Test Item Value Reference Range Interpretation Comme nts POCT Molecular FluA (test co de = 13444-8) Negative Negative POCT Molecular FluB (test co de = 07825-5) Negative Negative Lab Interpretation (test cod e = 14896-4) Normal [facility] SARS-COV-2 ANTIGEN (BINAX NOW)2024-07-24 16:45:00* Test Item Value Reference Range Interpretation Comme nts POCT SARS-COV-2 ANTIGEN (test code = 98710-5) Not Detected Not Detected, See Comment On board controls acceptable with C Line (test code = 3574) Yes Lab Interpretation (test code = 94842-6) Normal [facility] MOLECULAR [id number] 16:44:07* Test Item Value Reference Range Interpretation Comme [facility] POCT Molecular Strep (test c ode = 78227-9) Negative Negative Lab Interpretation (test cod e = 93900-9) Normal [facility] [id number] 16:35:00* Test Item Value Reference Range Interpretation Comme nts POCT PREG (test code = 1605) Negative On board controls acceptable with C Line (test code = 3574) Yes POCT PREG LOT # (test code = 3575) POCT PREG TEST DATE ( test code = 3576) [facility] [id number] 21:41:00* Test Item Value Reference Range Interpretation Comme nts POCT PREG (test code = 1605) Negative On board controls acceptable with C Line (test code = 3574) Yes POCT PREG LOT # (test code = 3575) POCT PREG TEST DATE ( test code = 3576) [facility] Glyc[facility] G [id number] 19:05:33* Test Item Value Reference Range Interpretation Comme nts HSV I IgG (test code = 7279787929) Negative Negative HSV II IgG (test code = 0398542693) Negative Negative DENYS (test code = DENYS) Positive - IgG ant ibody to HSV 1 and/or HSV 2 detected.Negative - No HSV 1 and/or HSV 2 antibody detected.Equivocal - A second sample should be sent. [facility] 2 Glycoprotein G [id number] 19:05:33* Test Item Value Reference Range Interpretation Comme nts HSV I IgG (test code = 5290258177) Negative Negative HSV II IgG (test code = 0638003362) Negative Negative DENYS (test code = DENYS) Positive - IgG ant ibody to HSV 1 and/or HSV 2 detected.Negative - No HSV 1 and/or HSV 2 antibody detected.Equivocal - A second [facility] [id number] 11:48:31* Test Item Value Reference Range Interpretation Comme nts HCV Ab (test code = 43344-7) Negative HCV Semi-Quantitative (test code = 63951-7) 0.01 [facility] Dlyubetg8814-43-52 11:48:31* Test Item Value Reference Range Interpretation Comme nts HCV Ab (test code = 97674-3) Negative HCV Semi-Quantitative (test code = 69157-9) 0.01 [facility] B Surface Uxskiwg2075-36-81 11:31:05 * Test Item Value Reference Range Interpretation Comme nts HBsAg Semi-Quantitative (amy t code = 5195-3) 0.13 Negative [facility] B Surface Yapbuge2151-42-43 11:31:05 * Test Item Value Reference Range Interpretation Comme nts HBsAg Semi-Quantitative (amy t code = 5195-3) 0.13 Negative [facility] or [place] Only - [id number] 07:23:19* Test Item Value Reference Range Interpretation Comme nts RPR (Qualitative) (test code = 54491-8) Nonreactive Nonreactive Lab Interpretation (test cod e = 24885-5) Normal [facility] or [place] Only - Vrk5784-52-45 07:23:19* Test Item Value Reference Range Interpretation Comme nts RPR (Qualitative) (test code = 53860-8) Nonreactive Nonreactive Lab Interpretation (test cod e = 23946-3) [facility] Ag-[facility] with Caxvtq9449-16-22 23:43:50* Test Item Value Reference Range Interpretation Comme nts HIV Semi-quantitative (test code = 52130-4) 0.07 Negative DENYS (test code = DENYS) Non-reactive for HIV-1 antigen and HIV-1/HIV-2 antibodies. ?No laboratory evidence of HIV infection. ?Repeat in 2-4 weeks if acute HIV infection is suspected. [facility] Ag-[facility] with Wlnwnu2265-17-02 23:43:50* Test Item Value Reference Range Interpretation Comme nts HIV Semi-quantitative (test code = 56841-7) 0.07 Negative DENYS (test code = DENYS) Non-reactive for HIV-1 antigen and HIV-1/HIV-2 antibodies. ?No laboratory evidence of HIV infection. ?Repeat in 2-4 weeks if acute HIV infection is suspected. [facility] Urinalysis w/o Specific Jdlxnti1906-03-47 17:18:00* Test Item Value Reference Range Interpretation Comme nts POCT PH U (test code = 3254) 7 mg/dl 5-8 POCT U LEUK EST (test code = 3263) ++ Negative - Negative POCT U NIT (test code = 3262) Negative Negative - Negati ve POCT U PROT (test code = 3259) Trace Negative - Negat pa POCT U GLU (test code = 3256) Negative Negative - Negati ve POCT U KETONE (test code = 3258) Negative Negative - Neg ative POCT U BLD (test code = 3257) Trace Negative - Negati ve [facility] Urinalysis w/o Specific [id number] 17:18:00* Test Item Value Reference Range Interpretation Comme nts POCT PH U (test code = 3254) 7 mg/dl 5-8 POCT U LEUK EST (test code = 3263) ++ Negative - Negative POCT U NIT (test code = 3262) Negative Negative - Negati ve POCT U PROT (test code = 3259) Trace Negative - Negat pa POCT U GLU (test code = 3256) Negative Negative - Negati ve POCT U KETONE (test code = 3258) Negative Negative - Neg ative POCT U BLD (test code = 3257) Trace Negative - Negati ve [facility] [id number] 00:00:00ResultSTREP A [id number] 00:00:00ResultTHYROID II PROFILE (TU, T4, T7, TSH)2023-06-22 00:00:00* Test Item Value Reference Range Interpretation Comme nts CORRECTED T4 (FTI) (test code = 63760-4) 24.0 UG/DL See_Comment H [Automated messa ge] The system which generated this result transmitted reference range: 4.2-11.6 UG/DL. The reference range was not used to interpret this result as normal/abnormal. T-UPTAKE (test code = 73812-8) 41.9 % See_Comment H [Automated messa ge] The system which generated this result transmitted reference range: 24.3-39.0 %. The reference range was not used to interpret this result as normal/abnormal. T4 (THYROXINE) (test code = 3026-2) 16.8 UG/DL See_Comment H [Automated messa ge] The system which generated this result transmitted reference range: 4.5-10.5 UG/DL. The reference range was not used to interpret this result as normal/abnormal. THYROX. BIND. CAPAC. (test code = 23851-1) 0.7 0.8-1.3 L TSH, THIRD GENERATION (test code = 59021-9) <0.010 UIU/ML See_Comment L [Automated messa ge] The system which generated this result transmitted reference range: 0.400-4.100 UIU/ML. The reference range was not used to interpret this result as normal/abnormal. DENISSE REFLEX AUTOIMMUNE AB [id number] 00:00:00* Test Item Value Reference Range Interpretation Comme nts ANTI-NUCLEAR ANTIBODIES (amy t code = 69236-2) NEGATIVE NEGATIVE CBC W/AUTO [id number] 00:00:00* Test Item Value Reference Range Interpretation Comme nts NUCLEATED RBCS (test code = 61175-7) 0.0 /100 WBC'S See_Comment [Automated messa ge] The system which generated this result transmitted reference range: 0.0 /100 WBC'S. The reference range was not used to interpret this result as normal/abnormal. ABSOLUTE EOSINOPHILS (test code = 93133-2) 0.24 K/UL See_Comment [Automated messa ge] The system which generated this result transmitted reference range: 0.00-0.50 K/UL. The reference range was not used to interpret this result as normal/abnormal. ABSOLUTE LYMPHOCYTES (test code = 72313-6) 2.89 K/UL See_Comment [Automated messa ge] The system which generated this result transmitted reference range: 1.00-4.00 K/UL. The reference range was not used to interpret this result as normal/abnormal. ABSOLUTE MONOCYTES (test code = 97518-5) 0.53 K/UL See_Comment [Automated messa ge] The system which generated this result transmitted reference range: 0.2-3.8 K/UL. The reference range was not used to interpret this result as normal/abnormal. ABSOLUTE NEUTROPHILS (test code = 49257-5) 5.10 K/UL See_Comment [Automated messa ge] The system which generated this result transmitted reference range: 1.50-7.50 K/UL. The reference range was not used to interpret this result as normal/abnormal. BASOPHILS (test code = 23925-5) 0.1 % EOSINOPHILS (test code = 07785-0) 2.7 % HEMATOCRIT (test code = 73203-1) 37.0 % See_Comment [Automated messa ge] The system which generated this result transmitted reference range: 34.0-45.0 %. The reference range was not used to interpret this result as normal/abnormal. HEMOGLOBIN (test code = 718-7) 12.3 G/DL See_Comment [Automated messa ge] The system which generated this result transmitted reference range: 11.5-15.5 G/DL. The reference range was not used to interpret this result as normal/abnormal. LYMPHOCYTES (test code = 16609-0) 32.9 % MCH (test code = 97486-5) 28.5 PG See_Comment [Automated messa ge] The system which generated this result transmitted reference range: 25.0-33.0 PG. The reference range was not used to interpret this result as normal/abnormal. MCHC (test code = 40416-4) 33.2 G/DL See_Comment [Automated messa ge] The system which generated this result transmitted reference range: 31.0-36.0 G/DL. The reference range was not used to interpret this result as normal/abnormal. MCV (test code = 52924-7) 85.6 fL See_Comment [Automated messa ge] The system which generated this result transmitted reference range: 80.0-99.0 fL. The reference range was not used to interpret this result as normal/abnormal. MONOCYTES (test code = 95998-9) 6.0 % NEUTROPHILS (test code = 51534-5) 58.1 % PLATELET COUNT (test code = 10590-4) 220 K/UL See_Comment [Automated [employer]] The system which generated this result transmitted reference range: 130-400 K/UL. The reference range was not used to interpret this result as normal/abnormal. RBC (test code = 69377-6) 4.32 M/UL See_Comment [Automated [employer] ge] The system which generated this result transmitted reference range: 3.80-5.40 M/UL. The reference range was not used to interpret this result as normal/abnormal. RDW (test code = 70397-6) 13.6 % See_Comment [Automated [employer]] The system which generated this result transmitted reference range: 11.5-15.0 %. The reference range was not used to interpret this result as normal/abnormal. WBC (test code = 09270-6) 8.8 K/UL See_Comment [Automated [employer]] The system which generated this result transmitted reference range: 3.5-11.0 K/UL. The reference range was not used to interpret this result as normal/abnormal. POCT [id number] 01:47:00* Test Item Value Reference Range Interpretation Comme [facility] POCT PREG (test code = 1605) negative On board controls acceptable with C Line (test code = 3574) present POCT PREG LOT # (test code = 3575) [id number] POCT PREG TEST DATE ( test code = 3576) 2024-04-15 Lab Interpretation (test cod e = 87050-9) Normal [facility] [id number] 14:27:00* Test Item Value Reference Range Interpretation Comme [facility] POCT PREG (test code = 1605) NEGATIVE On board controls acceptable with C Line (test code = 3574) present POCT PREG LOT # (test code = 3575) [id number] POCT PREG TEST DATE ( test code = 3576) 02/14/2024 Lab Interpretation (test cod e = 54081-5) Normal [facility] [id number] 21:29:00* Test Item Value Reference Range Interpretation Comme nts POCT PREG (test code = 1605) Negative On board controls acceptable with C Line (test code = 3574) Yes POCT PREG LOT # (test code = 3575) POCT PREG TEST DATE ( test code = 3576) [facility] [id number] 21:29:00* Test Item Value Reference Range Interpretation Comme nts POCT PREG (test code = 1605) Negative On board controls acceptable with C Line (test code = 3574) Yes POCT PREG LOT # (test code = 3575) POCT PREG TEST DATE ( test code = 3576) [facility]CB with [id number] 09:44:25* Test Item Value Reference Range Interpretation Comme nts WBC (test code = 6690-2) See_Comment H [Automated messa ge] The system which generated this result transmitted reference range: 4.30 - 11.10 10*3/?L. The reference range was not used to interpret this result as normal/abnormal. RBC (test code = 789-8) See_Comment L [Automated messa ge] The system which generated this result transmitted reference range: 3.93 - 5.25 10*6/?L. The reference range was not used to interpret this result as normal/abnormal. HGB (test code = 718-7) 11.3 g/dL 11.6-15 L HCT (test code = 4544-3) 33.3 % 35.7-45.2 L MCV (test code = 787-2) 88.3 fL 80.6-95.5 MCH (test code = 785-6) 30.0 pg 25.9-32.8 MCHC (test code = 786-4) 33.9 g/dL 31.6-35.1 RDW-SD (test code = 24113-4) 39.0 fL 39-49.9 RDW-CV (test code = 788-0) 12.2 % 12-15.5 PLT (test code = 777-3) See_Comment L [Automated messa ge] The system which generated this result transmitted reference range: 166 - 358 10*3/?L. The reference range was not used to interpret this result as normal/abnormal. MPV (test code = 81814-2) 12.4 fL 9.5-12.9 NRBC/100 WBC (test code = 3902164221) See_Comment [Automated me ssage] The system which generated this result transmitted reference range: 0.0 - 10.0 /100 WBCs. The reference range was not used to interpret this result as normal/abnormal. NRBC x10^3 (test code = 7587160107) See_Comment [Automated messa ge] The system which generated this result transmitted reference range: 10*3/?L. The reference range was not used to interpret this result as normal/abnormal. GRAN MAT (NEUT) % (test code = 770-8) 56.9 % IMM GRAN % (test code = 9185968180) 0.40 % LYMPH % (test code = 736-9) 32.6 % MONO % (test code = 5905-5) 7.8 % EOS % (test code = 713-8) 2.1 % BASO % (test code = 706-2) 0.2 % GRAN MAT x10^3(ANC) (test code = 9871353996) 6.42 10*3/uL 1.88-7.09 IMM GRAN x10^3 (test code = 3021917043) 0.05 10*3/uL 0-0.06 LYMPH x10^3 (test code = 731-0) 3.68 10*3/uL 1.32-3.29 H MONO x10^3 (test code = 742-7) 0.88 10*3/uL 0.33-0.92 EOS x10^3 (test code = 711-2) 0.24 10*3/uL 0.03-0.39 BASO x10^3 (test code = 704-7) 0.01-0.07 Lab Interpretation (test code = 25488-1) Abnormal [facility] IMMUNE [id number] 22:11:29* Test Item Value Reference Range Interpretation Comme nts RHIG CANDIDATE? (test code = 5055) No- see comment Patient is not a candidate for RhIg- Patient is Rh Positive.Performed at [facility] Laboratory Services - [facility] Blood [address] Free: [phone] No. [id number] [facility]Type and Screen - ONCE [id number] 19:20:41 * Test Item Value Reference Range Interpretation Comme nts ABO & RH (test code = 20) O Positive Performed at [facility] Laboratory [facility] Blood [address] [place] [address] Free: [phone] No. [id number] IAT (test code = 1185) Negative Performed at [facility] Blood [address] [place], [place] [address]Toll Free: [phone] No. [id number] [facility]PO[facility] UR[facility] W/O SPECIFIC [id number] 16:37:00* Test Item Value Reference Range Interpretation Comme nts POCT PH U (test code = 3254) n/a 5-8 POCT U LEUK EST (test code = 3263) n/a Negative - N egative POCT U NIT (test code = 3262) n/a Negative - Negati ve POCT U PROT (test code = 3259) neg Negative - Negat pa POCT U GLU (test code = 3256) neg Negative - Negati ve POCT U KETONE (test code = 3258) n/a Negative - Neg ative POCT U BLD (test code = 3257) n/a Negative - Negati ve [facility] W/O SPECIFIC [id number] 20:37:00* Test Item Value Reference Range Interpretation Comme nts POCT PH U (test code = 3254) n/a 5-8 POCT U LEUK EST (test code = 3263) n/a Negative - Negative POCT U NIT (test code = 3262) n/a Negative - Negati ve POCT U PROT (test code = 3259) negative Negative - Negat pa POCT U GLU (test code = 3256) negative Negative - Negati ve POCT U KETONE (test code = 3258) n/a Negative - Neg ative POCT U BLD (test code = 3257) n/a Negative - Negati ve [facility] URINALYSIS W/O SPECIFIC [id number] 19:10:00* Test Item Value Reference Range Interpretation Comme nts POCT PH U (test code = 3254) 7 mg/dl 5-8 POCT U LEUK EST (test code = 3263) Negative Negative - Negative POCT U NIT (test code = 3262) Negative Negative - Negati ve POCT U PROT (test code = 3259) Trace Negative - Negat pa POCT U GLU (test code = 3256) Negative Negative - Negati ve POCT U KETONE (test code = 3258) Negative Negative - Neg ative POCT U BLD (test code = 3257) Negative Negative - Negati ve [facility] URINALYSIS W/O SPECIFIC [id number] 18:32:00* Test Item Value Reference Range Interpretation Comme nts POCT PH U (test code = 3254) n/ 5-8 POCT U LEUK EST (test code = 3263) n/a Negative - Negative POCT U NIT (test code = 3262) n/a Negative - Negati ve POCT U PROT (test code = 3259) trace Negative - Negat pa POCT U GLU (test code = 3256) negative Negative - Negati ve POCT U KETONE (test code = 3258) n/a Negative - Neg ative POCT U BLD (test code = 3257) n/a Negative - Negati ve [facility] URINALYSIS W/O SPECIFIC [id number] 20:11:00* Test Item Value Reference Range Interpretation Comme nts POCT PH U (test code = 3254) n/a 5-8 POCT U LEUK EST (test code = 3263) n/a Negative - Negative POCT U NIT (test code = 3262) n/a Negative - Negati ve POCT U PROT (test code = 3259) negative Negative - Negat pa POCT U GLU (test code = 3256) negative Negative - Negati ve POCT U KETONE (test code = 3258) n/a Negative - Neg ative POCT U BLD (test code = 3257) n/a Negative - Negati ve [facility] URINALYSIS W/O SPECIFIC [id number] 15:16:00* Test Item Value Reference Range Interpretation Comme nts POCT PH U (test code = 3254) n/a 5-8 POCT U LEUK EST (test code = 3263) n/a Negative - Negative POCT U NIT (test code = 3262) n/a Negative - Negati ve POCT U PROT (test code = 3259) negative Negative - Negat pa POCT U GLU (test code = 3256) negative Negative - Negati ve POCT U KETONE (test code = 3258) n/a Negative - Neg ative POCT U BLD (test code = 3257) n/a Negative - Negati ve [facility] URINALYSIS W/O SPECIFIC [id number] 18:07:00* Test Item Value Reference Range Interpretation Comme nts POCT PH U (test code = 3254) n/a 5-8 POCT U LEUK EST (test code = 3263) n/a Negative - N egative POCT U NIT (test code = 3262) n/a Negative - Negati ve POCT U PROT (test code = 3259) trace Negative - Negat pa POCT U GLU (test code = 3256) normal Negative - Negati ve POCT U KETONE (test code = 3258) n/a Negative - Neg ative POCT U BLD (test code = 3257) n/a Negative - Negati ve [facility] URINALYSIS W/O SPECIFIC [id number] 16:20:00* Test Item Value Reference Range Interpretation Comme nts POCT PH U (test code = 3254) N/A 5-8 POCT U LEUK EST (test code = 3263) N/A Negative - Negative POCT U NIT (test code = 3262) N/A Negative - Negati ve POCT U PROT (test code = 3259) Negative Negative - Negat pa POCT U GLU (test code = 3256) Negative Negative - Negati ve POCT U KETONE (test code = 3258) N/A Negative - Neg ative POCT U BLD (test code = 3257) N/A Negative - Negati ve [facility] URINALYSIS W/O SPECIFIC [id number] 16:23:00* Test Item Value Reference Range Interpretation Comme nts POCT PH U (test code = 3254) 6 mg/dl 5-8 POCT U LEUK EST (test code = 3263) + Negative - Negative POCT U NIT (test code = 3262) negative Negative - Negati ve POCT U PROT (test code = 3259) Negative Negative - Negat pa POCT U GLU (test code = 3256) Normal Negative - Negati ve POCT U KETONE (test code = 3258) negative Negative - Neg ative POCT U BLD (test code = 3257) negative Negative - Negati ve [facility] URINALYSIS W/O SPECIFIC [id number] 15:48:00* Test Item Value Reference Range Interpretation Comme nts POCT PH U (test code = 3254) N/A 5-8 POCT U LEUK EST (test code = 3263) N/A Negative - Negative POCT U NIT (test code = 3262) N/A Negative - Negati ve POCT U PROT (test code = 3259) Negative Negative - Negat pa POCT U GLU (test code = 3256) Negative Negative - Negati ve POCT U KETONE (test code = 3258) N/A Negative - Neg ative POCT U BLD (test code = 3257) N/A Negative - Negati ve [facility] [id number] 15:48:00* Test Item Value Reference Range Interpretation Comme nts POCT PREG (test code = 1605) Positive On board controls acceptable with C Line (test code = 3574) Yes POCT PREG LOT # (test code = 3575) POCT PREG TEST DATE ( test code = 3576) [facility] CenterSTREP A [id number] 00:00:00* Test Item Value Reference Range Interpretation Comme nts Result (test code = 66874-2) Negative XR RIBS 4+ VW [id number] 06:28:07No radiographic evidence for acute cardiopulmonary disease. No left rib fracture identified. RL: 460 AFC: [id number] Ordering physician: ELSA CAR INDICATION: Left chest wall pain COMPARISON: None FINDINGS: PA view of the chestand 3 views of the left ribs. Thecardiopericardial silhouette is within normal limits. The lungs are clearbilaterally. No definite left rib fracture is appreciated. [facility], Radiant Results Inft User - 02/21/2021 1:29 AM CDTOrdering physician: ELSA CARINDICATION: Left chest wall painCOMPARISON:NoneFINDINGS: PA view of the chest and 3 views of the left ribs. Thecardiopericardial silhouette iswithin normal limits. The lungs are clearbilaterally. No definite left rib fracture is appreciated.IMPRESSIONNo radiographic evidence for acute cardiopulmonary disease.No left rib fracture identified.RL: 460AF: [id number] signed by Celia Arriola MD, PhD at 02/21/2021 1:28 AMUnSt. Luke[facility] HospitalD-[id number] 05:35:13 * Test Item Value Reference Range Interpretation Comments D-DIMER (test code = 5747232458) <0.27 See_Comment [Automated message] The system which generated this result transmitted reference range: <0.41 ?g/mL (FEU). The reference range was not used to interpret this result as normal/abnormal. DENYS (test code = DENYS) This test may be used in conjunction with a clinical pretest [...] context, in forming a diagnosis. Lab Interpretation (test code = 30787-7) Normal [facility]MINAL [id number] 05:20:34* Test Item Value Reference Range Interpretation Comme nts NT-proBNP (test code = 2232879098) <11 See_Comment [Automated message] The system which generated this result transmitted reference range: <=125 pg/mL. The reference range was not used to interpret this result as normal/abnormal. DENYS (test code = DENYS) Biotin has been reported to cause a negative bias, interpret results relative to patient's use of biotin. Lab Interpretation (test code = 93479-9) Normal [facility] CenterURINALYSIS2021-04-08 02:07:19* Test Item Value Reference Range Interpretation Comme nts APPEARANCE (test code = 0247905821) Hazy Clear A COLOR (test code = 5732700479) Straw Yellow A PH (test code = 3003273420) 4.8-8.0 SP GRAVITY (test code = 6973689884) 1.003-1.030 GLU U QUAL (test code = 1888986053) Normal Normal BLOOD (test code = 2713886654) Negative Negative KETONES (test code = 5213732941) 5 mg/dL Negative A PROTEIN (test code = 2887-8) Negative Negative UROBILIN (test code = 0595890557) Normal Normal BILIRUBIN (test code = 4415502308) Negative Negative NITRITE (test code = 3997753768) Negative Negative LEUK ALEKSANDER (test code = 9371920549) 75/uL Negative A RBC/HPF (test code = 1436321293) See_Comment H [Automated [employer] ge] The system which generated this result transmitted reference range: 0 - 3 HPF. The reference range was not used to interpret this result as normal/abnormal. WBC/HPF (test code = 7950156984) See_Comment H [Automated [employer] ge] The system which generated this result transmitted reference range: 0 - 5 HPF. The reference range was not used to interpret this result as normal/abnormal. BACTERIA (test code = 7409921117) Few Negative A SQ EPITH (test code = 1730115663) HPF Lab Interpretation (test code = 65549-2) [facility]normal [facility]PO[facility] [id number] 01:40:00* Test Item Value Reference Range Interpretation Comme nts POCT PREG (test code = 1605) NEG On board controls acceptable with C Line (test code = 3574) YES POCT PREG LOT # (test code = 3575) [id number] POCT PREG TEST DATE ( test code = 3576) 07/16/2022 Lab Interpretation (test cod e = 89968-0) Normal [facility] WITH [id number] 06:36:00* Test Item Value Reference Range Interpretation Comme nts WBC (test code = 6690-2) See_Comment H [Automated messa ge] The system which generated this result transmitted reference range: 4.30 - 11.10 10*3/?L. The reference range was not used to interpret this result as normal/abnormal. RBC (test code = 789-8) See_Comment L [Automated messa ge] The system which generated this result transmitted reference range: 3.93 - 5.25 10*6/?L. The reference range was not used to interpret this result as normal/abnormal. HGB (test code = 718-7) 11.0 g/dL 11.6-15 L HCT (test code = 4544-3) 33.2 % 35.7-45.2 L MCV (test code = 787-2) 93.0 fL 80.6-95.5 MCH (test code = 785-6) 30.8 pg 25.9-32.8 MCHC (test code = 786-4) 33.1 g/dL 31.6-35.1 RDW-SD (test code = 93756-6) 47.6 fL 39-49.9 RDW-CV (test code = 788-0) 14.1 % 12-15.5 PLT (test code = 777-3) See_Comment L [Automated messa ge] The system which generated this result transmitted reference range: 166 - 358 10*3/?L. The reference range was not used to interpret this result as normal/abnormal. MPV (test code = 50039-5) 12.7 fL 9.5-12.9 NRBC/100 WBC (test code = 3956978414) See_Comment [Automated me ssage] The system which generated this result transmitted reference range: 0.0 - 10.0 /100 WBCs. The reference range was not used to interpret this result as normal/abnormal. NRBC x10^3 (test code = 4891432124) <0.01 See_Comment [Automated messa ge] The system which generated this result transmitted reference range: 10*3/?L. The reference range was not used to interpret this result as normal/abnormal. GRAN MAT (NEUT) % (test code = 770-8) 64.5 % IMM GRAN % (test code = 1849268744) 0.50 % LYMPH % (test code = 736-9) 26.6 % MONO % (test code = 5905-5) 5.7 % EOS % (test code = 713-8) 2.5 % BASO % (test code = 706-2) 0.2 % GRAN MAT x10^3(ANC) (test code = 9037167391) 8.20 10*3/uL 1.88-7.09 H IMM GRAN x10^3 (test code = 9879478183) 0.07 10*3/uL 0-0.06 H LYMPH x10^3 (test code = 731-0) 3.39 10*3/uL 1.32-3.29 H MONO x10^3 (test code = 742-7) 0.72 10*3/uL 0.33-0.92 EOS x10^3 (test code = 711-2) 0.32 10*3/uL 0.03-0.39 BASO x10^3 (test code = 704-7) 0.03 10*3/uL 0.01-0.07 Lab Interpretation (test code = 03865-6) [facility]normal [facility] IMMUNE [id number] 16:58:51* Test Item Value Reference Range Interpretation Comme nts RHIG CANDIDATE? (test code = 5055) No- see comment Patient is not a candidate for RhIg- Patient is Rh Positive.Performed at [facility] Laboratory Services - [facility] Blood [address] [place] [address]Ysvs Free: [phone] No. [id number] [facility] CenterVenous Cord [id number] 14:44:00* Test Item Value Reference Range Interpretation Comme nts VENOUS BASE EXCESS, CORD (test code = 9846539239) mEq/L VENOUS PH, CORD (test code = 8459459926) 7.25-7.45 VENOUS PC02, CORD (test code = 4592535624) See_Comment [Automated messa ge] The system which generated this result transmitted reference range: 27 - 49 mmHg. The reference range was not used to interpret this result as normal/abnormal. VENOUS PO2, CORD (test code = 4157880385) See_Comment [Automated me ssage] The system which generated this result transmitted reference range: 17 - 41 mmHg. The reference range was not used to interpret this result as normal/abnormal. VENOUS BICARBONATE, CORD (test code = 9400821991) See_Comment [Automated messa ge] The system which generated this result transmitted reference range: 12 - 29 mEq/L. The reference range was not used to interpret this result as normal/abnormal. [facility] CenterArterial Cord [id number] 14:41:00* Test Item Value Reference Range Interpretation Comme nts BASE EXCESS, CORD (test code = 2683998463) mEq/L AC PH, CORD (BEAKER) (test code = 3984120815) 7.18-7.38 L PC02, CORD (test code = 2273618135) See_Comment [Automated messa ge] The system which generated this result transmitted reference range: 32 - 66 mmHg. The reference range was not used to interpret this result as normal/abnormal. PO2, CORD (test code = 4993845636) See_Comment [Automated messa ge] The system which generated this result transmitted reference range: 10 - 30 mmHg. The reference range was not used to interpret this result as normal/abnormal. BICARBONATE, CORD (test code = 6410545225) See_Comment [Automated me ssage] The system which generated this result transmitted reference range: 17 - 27 mEq/L. The reference range was not used to interpret this result as normal/abnormal. Lab Interpretation (test code = 63778-6) Abnormal [facility] OR [place] ONLY - [id number] 06:43:00* Test Item Value Reference Range Interpretation Comme nts RPR (Qualitative) (test code = 34178-7) Nonreactive Nonreactive Lab Interpretation (test cod e = 10068-5) Normal [facility] Surface [id number] 05:22:00 * Test Item Value Reference Range Interpretation Comme nts HBsAg Semi-Quantitative (amy t code = 5195-3) Negative Negative [facility]HIV [facility]2 AG-AB WITH [id number] 19:48:00* Test Item Value Reference Range Interpretation Comme nts HIV Semi-quantitative (test code = 46118-3) Negative Negative DENYS (test code = DENYS) Non-reactive for HIV-1 antigen and HIV-1/HIV-2 antibodies. ?No laboratory evidence of HIV infection. ?Repeat in 2-4 weeks if acute HIV infection is suspected. [facility]CORON[facility]IRUS COVID-19 [id number] 19:37:00* Test Item Value Reference Range Interpretation Comme nts SARS-CoV-2 (test code = 47033-9) Not Detected Not Detected DENYS (test code = DENYS) ID NOW COVID-19 As say is an isothermal nucleic acid amplification test intended for the qualitative detection of nucleic acid from SARS-CoV-2 viral RNA in nasopharyngeal (TAXATION ECONOMIST) specimens. It is used under Emergency Use [...] patient testing if clinically indicated. Lab Interpretation (test code = 45514-9) Normal [facility] CenterType [facility] Screen - ONCE [id number] 19:11:56 * Test Item Value Reference Range Interpretation Comme nts ABO & RH (test code = 20) O Positive Performed at [facility] Laboratory Services - [facility] Blood [address] [place], [place] [address]Toll Free: [phone] No. [id number] IAT (test code = 1185) Negative Performed at [facility] Laboratory [facility] - [facility] Blood [address] [place], [place] [id number] Free: [phone] No. [id number] [facility]CBC WITH [id number] 18:39:00* Test Item Value Reference Range Interpretation Comme nts WBC (test code = 6690-2) See_Comment [Automated messa ge] The system which generated this result transmitted reference range: 4.30 - 11.10 10*3/?L. The reference range was not used to interpret this result as normal/abnormal. RBC (test code = 789-8) See_Comment L [Automated messa ge] The system which generated this result transmitted reference range: 3.93 - 5.25 10*6/?L. The reference range was not used to interpret this result as normal/abnormal. HGB (test code = 718-7) 11.5 g/dL 11.6-15 L HCT (test code = 4544-3) 34.0 % 35.7-45.2 L MCV (test code = 787-2) 91.2 fL 80.6-95.5 MCH (test code = 785-6) 30.8 pg 25.9-32.8 MCHC (test code = 786-4) 33.8 g/dL 31.6-35.1 RDW-SD (test code = 37030-1) 45.4 fL 39-49.9 RDW-CV (test code = 788-0) 13.8 % 12-15.5 PLT (test code = 777-3) See_Comment [Automated messa ge] The system which generated this result transmitted reference range: 166 - 358 10*3/?L. The reference range was not used to interpret this result as normal/abnormal. MPV (test code = 45495-5) 12.3 fL 9.5-12.9 NRBC/100 WBC (test code = 0800403822) See_Comment [Automated Nightpro ssage] The system which generated this result transmitted reference range: 0.0 - 10.0 /100 WBCs. The reference range was not used to interpret this result as normal/abnormal. NRBC x10^3 (test code = 7026564715) <0.01 See_Comment [Automated messa ge] The system which generated this result transmitted reference range: 10*3/?L. The reference range was not used to interpret this result as normal/abnormal. GRAN MAT (NEUT) % (test code = 770-8) 68.3 % IMM GRAN % (test code = 8890026780) 0.90 % LYMPH % (test code = 736-9) 21.3 % MONO % (test code = 5905-5) 6.5 % EOS % (test code = 713-8) 2.8 % BASO % (test code = 706-2) 0.2 % GRAN MAT x10^3(ANC) (test code = 8624200044) 6.52 10*3/uL 1.88-7.09 IMM GRAN x10^3 (test code = 9457237204) 0.09 10*3/uL 0-0.06 H LYMPH x10^3 (test code = 731-0) 2.04 10*3/uL 1.32-3.29 MONO x10^3 (test code = 742-7) 0.62 10*3/uL 0.33-0.92 EOS x10^3 (test code = 711-2) 0.27 10*3/uL 0.03-0.39 BASO x10^3 (test code = 704-7) <0.03 0.01-0.07 Lab Interpretation (test code = 20046-2) Abnormal [facility] CenterGL[facility] 1 HOUR POST [id number] 22:17:00* Test Item Value Reference Range Interpretation Comme nts GLUC 1 HR (test code = 6248906701) 128 mg/dL 120-170 Lab Interpretation (test cod e = 08105-7) Normal [facility] CenterGLU[facility] 1 HOUR POST [id number] 22:17:00* Test Item Value Reference Range Interpretation Comme nts GLUC 1 HR (test code = 2065804010) 128 mg/dL 120-170 Lab Interpretation (test cod e = 26016-9) Normal [facility] CenterCB WITH [id number] 21:45:00* Test Item Value Reference Range Interpretation Comme nts WBC (test code = 6690-2) See_Comment [Automated messa ge] The system which generated this result transmitted reference range: 4.30 - 11.10 10*3/?L. The reference range was not used to interpret this result as normal/abnormal. RBC (test code = 789-8) See_Comment L [Automated messa ge] The system which generated this result transmitted reference range: 3.93 - 5.25 10*6/?L. The reference range was not used to interpret this result as normal/abnormal. HGB (test code = 718-7) 11.1 g/dL 11.6-15 L HCT (test code = 4544-3) 33.8 % 35.7-45.2 L MCV (test code = 787-2) 92.1 fL 80.6-95.5 MCH (test code = 785-6) 30.2 pg 25.9-32.8 MCHC (test code = 786-4) 32.8 g/dL 31.6-35.1 RDW-SD (test code = 43710-7) 42.2 fL 39-49.9 RDW-CV (test code = 788-0) 12.6 % 12-15.5 PLT (test code = 777-3) See_Comment [Automated messa ge] The system which generated this result transmitted reference range: 166 - 358 10*3/?L. The reference range was not used to interpret this result as normal/abnormal. MPV (test code = 87528-2) 12.7 fL 9.5-12.9 NRBC/100 WBC (test code = 2470625484) See_Comment [Automated Nightpro ssage] The system which generated this result transmitted reference range: 0.0 - 10.0 /100 WBCs. The reference range was not used to interpret this result as normal/abnormal. NRBC x10^3 (test code = 6978267543) <0.01 See_Comment [Automated [employer] ge] The system which generated this result transmitted reference range: 10*3/?L. The reference range was not used to interpret this result as normal/abnormal. GRAN MAT (NEUT) % (test code = 770-8) 69.9 % IMM GRAN % (test code = 9845109734) 0.70 % LYMPH % (test code = 736-9) 19.8 % MONO % (test code = 5905-5) 6.1 % EOS % (test code = 713-8) 3.3 % BASO % (test code = 706-2) 0.2 % GRAN MAT x10^3(ANC) (test code = 5827560328) 6.81 10*3/uL 1.88-7.09 IMM GRAN x10^3 (test code = 6058481729) 0.07 10*3/uL 0-0.06 H LYMPH x10^3 (test code = 731-0) 1.93 10*3/uL 1.32-3.29 MONO x10^3 (test code = 742-7) 0.59 10*3/uL 0.33-0.92 EOS x10^3 (test code = 711-2) 0.32 10*3/uL 0.03-0.39 BASO x10^3 (test code = 704-7) <0.03 0.01-0.07 Lab Interpretation (test code = 35345-1) Abnormal [facility] WITH [id number] 21:45:00* Test Item Value Reference Range Interpretation Comme nts WBC (test code = 6690-2) See_Comment [Automated messa ge] The system which generated this result transmitted reference range: 4.30 - 11.10 10*3/?L. The reference range was not used to interpret this result as normal/abnormal. RBC (test code = 789-8) See_Comment L [Automated messa ge] The system which generated this result transmitted reference range: 3.93 - 5.25 10*6/?L. The reference range was not used to interpret this result as normal/abnormal. HGB (test code = 718-7) 11.1 g/dL 11.6-15 L HCT (test code = 4544-3) 33.8 % 35.7-45.2 L MCV (test code = 787-2) 92.1 fL 80.6-95.5 MCH (test code = 785-6) 30.2 pg 25.9-32.8 MCHC (test code = 786-4) 32.8 g/dL 31.6-35.1 RDW-SD (test code = 03792-8) 42.2 fL 39-49.9 RDW-CV (test code = 788-0) 12.6 % 12-15.5 PLT (test code = 777-3) See_Comment [Automated messa ge] The system which generated this result transmitted reference range: 166 - 358 10*3/?L. The reference range was not used to interpret this result as normal/abnormal. MPV (test code = 56162-0) 12.7 fL 9.5-12.9 NRBC/100 WBC (test code = 0937198259) See_Comment [Automated me ssage] The system which generated this result transmitted reference range: 0.0 - 10.0 /100 WBCs. The reference range was not used to interpret this result as normal/abnormal. NRBC x10^3 (test code = 3154249633) <0.01 See_Comment [Automated messa ge] The system which generated this result transmitted reference range: 10*3/?L. The reference range was not used to interpret this result as normal/abnormal. GRAN MAT (NEUT) % (test code = 770-8) 69.9 % IMM GRAN % (test code = 6690198964) 0.70 % LYMPH % (test code = 736-9) 19.8 % MONO % (test code = 5905-5) 6.1 % EOS % (test code = 713-8) 3.3 % BASO % (test code = 706-2) 0.2 % GRAN MAT x10^3(ANC) (test code = 3978821737) 6.81 10*3/uL 1.88-7.09 IMM GRAN x10^3 (test code = 1112124497) 0.07 10*3/uL 0-0.06 H LYMPH x10^3 (test code = 731-0) 1.93 10*3/uL 1.32-3.29 MONO x10^3 (test code = 742-7) 0.59 10*3/uL 0.33-0.92 EOS x10^3 (test code = 711-2) 0.32 10*3/uL 0.03-0.39 BASO x10^3 (test code = 704-7) <0.03 0.01-0.07 Lab Interpretation (test code = 01482-4) Abnormal [facility] CenterFETAL NON-STRESS [id number] 21:09:08 Reactive and reassuring [place] quiescent Gustabo Brock MD ?02/06/2020 ?4:08 PM [facility]PO[facility] W/O SPECIFIC [id number] 20:26:00* Test Item Value Reference Range Interpretation Comme nts POCT PH U (test code = 3254) N/A 5-8 POCT U LEUK EST (test code = 3263) N/A Negative - Negative POCT U NIT (test code = 3262) N/A Negative - Negati ve POCT U PROT (test code = 3259) Trace Negative - Negat pa POCT U GLU (test code = 3256) Negative Negative - Negati ve POCT U KETONE (test code = 3258) N/A Negative - Neg ative POCT U BLD (test code = 3257) N/A Negative - Negati ve [facility]FETAL NON-STRESS [id number] 13:50:27 Reactive and reassuringToco quiescent Gustaboperlita Brock MD ?02/03/2020 ?8:50 AM [facility] ONLY - FERN [id number] 13:39:00* Test Item Value Reference Range Interpretation Comme nts Fern Test (test code = 5481390386) Negative [facility] URINALYSIS W/O SPECIFIC [id number] 19:29:00* Test Item Value Reference Range Interpretation Comme nts POCT PH U (test code = 3254) n/a 5-8 POCT U LEUK EST (test code = 3263) n/a Negative - N egative POCT U NIT (test code = 3262) n/a Negative - Negati ve POCT U PROT (test code = 3259) neg Negative - Negat pa POCT U GLU (test code = 3256) neg Negative - Negati ve POCT U KETONE (test code = 3258) n/a Negative - Neg ative POCT U BLD (test code = 3257) n/a Negative - Negati ve Lab Interpretation (test cod e = 49044-8) Normal [facility] URINALYSIS W/O SPECIFIC [id number] 16:47:00* Test Item Value Reference Range Interpretation Comme nts POCT PH U (test code = 3254) n/a 5-8 POCT U LEUK EST (test code = 3263) n/a Negative - Negative POCT U NIT (test code = 3262) n/a Negative - Negati ve POCT U PROT (test code = 3259) negative Negative - Negat pa POCT U GLU (test code = 3256) negative Negative - Negati ve POCT U KETONE (test code = 3258) n/a Negative - Neg ative POCT U BLD (test code = 3257) n/a Negative - Negati ve [facility] CenterGC & CHLAMYDIA AMPLIFIED [id number] 19:06:00* Test Item Value Reference Range Interpretation Comme nts C. trachomatis Nucleic Acid (test code = 56659-6) Negative Negative N. gonorrhoeae Nucleic Acid (test code = 51421-7) Negative Negative Lab Interpretation (test cod e = 42218-4) Normal [facility]Type [facility] - ONCE [id number] 08:41:50* Test Item Value Reference Range Interpretation Comme nts ABO & RH (test code = 20) O POSITIVE Performed at [facility] Laboratory [place] [address]Toll Free: [phone] No. [id number] IAT (test code = 1185) Negative Performed at [place] [address]Toll Free: [phone] No. [id number] [facility]Type [facility] - ONCE [id number] 21:54:06 * Test Item Value Reference Range Interpretation Comme nts ABO & RH (test code = 20) O Positive Performed at [facility] Laboratory [facility] Blood [place] [address]Toll Free: [phone] No. [id number] IAT (test code = 1185) Negative Performed at [facility] Blood [place] [address]Toll Free: [phone] No. [id number] [facility] CenterCBC WITH [id number] 20:52:00* Test Item Value Reference Range Interpretation Comme nts WBC (test code = 6690-2) See_Comment [Automated messa ge] The system which generated this result transmitted reference range: 4.30 - 11.10 10*3/?L. The reference range was not used to interpret this result as normal/abnormal. RBC (test code = 789-8) See_Comment L [Automated messa ge] The system which generated this result transmitted reference range: 3.93 - 5.25 10*6/?L. The reference range was not used to interpret this result as normal/abnormal. HGB (test code = 718-7) 11.0 g/dL 11.6-15 L HCT (test code = 4544-3) 31.9 % 35.7-45.2 L MCV (test code = 787-2) 90.6 fL 80.6-95.5 MCH (test code = 785-6) 31.3 pg 25.9-32.8 MCHC (test code = 786-4) 34.5 g/dL 31.6-35.1 RDW-SD (test code = 71651-8) 39.8 fL 39-49.9 RDW-CV (test code = 788-0) 12.2 % 12-15.5 PLT (test code = 777-3) See_Comment [Automated [employer] ge] The system which generated this result transmitted reference range: 166 - 358 10*3/?L. The reference range was not used to interpret this result as normal/abnormal. MPV (test code = 68272-8) 12.4 fL 9.5-12.9 NRBC/100 WBC (test code = 1188767394) See_Comment [Automated Nightpro ssage] The system which generated this result transmitted reference range: 0.0 - 10.0 /100 WBCs. The reference range was not used to interpret this result as normal/abnormal. NRBC x10^3 (test code = 9867193060) <0.01 See_Comment [Automated messa ge] The system which generated this result transmitted reference range: 10*3/?L. The reference range was not used to interpret this result as normal/abnormal. GRAN MAT (NEUT) % (test code = 770-8) 64.8 % IMM GRAN % (test code = 4239737160) 0.80 % LYMPH % (test code = 736-9) 21.8 % MONO % (test code = 5905-5) 7.8 % EOS % (test code = 713-8) 4.6 % BASO % (test code = 706-2) 0.2 % GRAN MAT x10^3(ANC) (test code = 4986643035) 6.68 10*3/uL 1.88-7.09 IMM GRAN x10^3 (test code = 4121460634) 0.08 10*3/uL 0-0.06 H LYMPH x10^3 (test code = 731-0) 2.24 10*3/uL 1.32-3.29 MONO x10^3 (test code = 742-7) 0.80 10*3/uL 0.33-0.92 EOS x10^3 (test code = 711-2) 0.47 10*3/uL 0.03-0.39 H BASO x10^3 (test code = 704-7) <0.03 0.01-0.07 Lab Interpretation (test code = 57431-3) Abnormal [facility] CenterUS PELVIS > 14 [id number] 19:57:58HISTORY: Leaking fluid. COMPARISON: None. TECHNIQUE: 4 quadrant ultrasound of was done toevaluate foramniotic fluid volume. FINDINGS: Oligohydramnios noted with small amount of fluid surrounding thebaby. JIM calculated is only 3.61 cm. [facility], Radiant Results Inft User - 01/17/2020 1:59 PM CSTHISTORY: Leaking fluid.COMPARISON: None.TECHNIQUE: 4 quadrant ultrasound of was done to evaluate foramniotic fluid volume.FINDINGS: Oligohydramnios noted with small amount of fluid surrounding thebaby. JIM calculated is only 3.61 cm.[facility]AD [facility] OR [facility] ONLY - WET [id number] 18:46:00* Test Item Value Reference Range Interpretation Comme nts Wet Prep (test code = 5215489709) Few Epithelial cells [facility] CenterURINALYSIS2020-03-03 18:32:00* Test Item Value Reference Range Interpretation Comme nts APPEARANCE (test code = 6539495369) Hazy Clear A COLOR (test code = 2083894552) Yellow Yellow PH (test code = 5315470271) 4.8-8.0 SP GRAVITY (test code = 5064841277) 1.003-1.030 GLU U QUAL (test code = 1153299342) Normal Normal BLOOD (test code = 1245845758) Negative Negative KETONES (test code = 4966027668) Negative Negative PROTEIN (test code = 2887-8) Negative Negative UROBILIN (test code = 0125433747) Normal Normal BILIRUBIN (test code = 2023797811) Negative Negative NITRITE (test code = 2020627625) Negative Negative LEUK ALEKSANDER (test code = 3767106085) 250/uL Negative A RBC/HPF (test code = 5495122314) See_Comment [Automated [employer] ge] The system which generated this result transmitted reference range: 0 - 3 HPF. The reference range was not used to interpret this result as normal/abnormal. WBC/HPF (test code = 7409783106) See_Comment H [Automated [employer] ge] The system which generated this result transmitted reference range: 0 - 5 HPF. The reference range was not used to interpret this result as normal/abnormal. BACTERIA (test code = 8709908700) Few Negative A MUCOUS (test code = 7270363520) Moderate Negative LPF A SQ EPITH (test code = 5739699027) HPF Lab Interpretation (test code = 90581-6) Abnormal [facility]AD [facility] - [facility]ERN [id number] 18:11:00* Test Item Value Reference Range Interpretation Comme nts Fern Test (test code = 7686416194) Negative [facility] CenterURINALYSIS2020-02-24 23:59:00* Test Item Value Reference Range Interpretation Comme nts APPEARANCE (test code = 0550253758) Hazy Clear A COLOR (test code = 8964339947) Yellow Yellow PH (test code = 6291620830) 4.8-8.0 SP GRAVITY (test code = 3014549193) 1.003-1.030 GLU U QUAL (test code = 1631724951) Normal Normal BLOOD (test code = 3234154322) Negative Negative INTERFERENCE FRO M ASCORBIC ACID MAY CAUSE FALSE NEGATIVE RESULT KETONES (test code = 5064113508) Negative Negative PROTEIN (test code = 2887-8) Negative Negative UROBILIN (test code = 2740843776) Normal Normal BILIRUBIN (test code = 5807441977) Negative Negative NITRITE (test code = 1878633055) Negative Negative LEUK ALEKSANDER (test code = 1720410031) 250/uL Negative A RBC/HPF (test code = 2040485597) See_Comment [Automated messa ge] The system which generated this result transmitted reference range: 0 - 3 HPF. The reference range was not used to interpret this result as normal/abnormal. WBC/HPF (test code = 2941112057) See_Comment [Automated messa ge] The system which generated this result transmitted reference range: 0 - 5 HPF. The reference range was not used to interpret this result as normal/abnormal. BACTERIA (test code = 9236752628) Moderate Negative A MUCOUS (test code = 6592988378) Marked Negative LPF A SQ EPITH (test code = 0887989807) HPF Lab Interpretation (test code = 48072-7) Abnormal [facility]. METABOLIC PANEL (97546)2020-01-09 23:51:00* Test Item Value Reference Range Interpretation Comme nts NA (test code = 7432202306) 137 mmol/L 135-145 K (test code = 0841376792) 4.1 mmol/L 3.5-5 CL (test code = 1007794280) 106 mmol/L 98-108 CO2 TOTAL (test code = 3022993983) 24 mmol/L 23-31 AGAP (test code = 2236297746) 2-16 BUN (test code = 9470415232) 11 mg/dL 7-23 GLUCOSE (test code = 1281753025) 94 mg/dL 70-110 CREATININE (test code = 3893314548) 0.30 mg/dL 0.5-1.04 L TOTAL BILI (test code = 8177350347) 0.1 mg/dL 0.1-1.1 CALCIUM (test code = 6938941677) 9.2 mg/dL 8.6-10.6 T PROTEIN (test code = 4691079048) 7.2 g/dL 6.3-8.2 ALBUMIN (test code = 9214342206) 3.9 g/dL 3.5-5 ALK PHOS (test code = 0415230392) 99 U/L 34-122 ALTv (test code = 1742-6) 14 U/L 5-35 AST(SGOT) (test code = 7510193442) 24 U/L 13-40 eGFR Calculation (Non-) (test code = 9260011048) mL/min/1.73m2 eGFR Calculation () (test code = 3700820718) mL/min/1.73m2 DENYS (test code = DENYS) Association of [...] or abnormalities in imaging tests). Lab Interpretation (test code = 34049-8) Abnormal [facility] CenterLIPASE2020-02-[facility] 23:50:00* Test Item Value Reference Range Interpretation Comme nts LIPASE (test code = 8658411362) 61 U/L 0-220 Lab Interpretation (test cod e = 54013-5) Normal [facility] CenterAMYLASE2020-02-24 23:49:00* Test Item Value Reference Range Interpretation Comme nts GIANNI (test code = 7501181962) 92 U/L 35-110 Lab Interpretation (test cod e = 63896-3) Normal [facility] CenterCBC WITH [id number] 23:36:00* Test Item Value Reference Range Interpretation Comme nts WBC (test code = 6690-2) See_Comment H [Automated messa ge] The system which generated this result transmitted reference range: 4.30 - 11.10 10*3/?L. The reference range was not used to interpret this result as normal/abnormal. RBC (test code = 789-8) See_Comment L [Automated messa ge] The system which generated this result transmitted reference range: 3.93 - 5.25 10*6/?L. The reference range was not used to interpret this result as normal/abnormal. HGB (test code = 718-7) 10.8 g/dL 11.6-15 L HCT (test code = 4544-3) 32.9 % 35.7-45.2 L MCV (test code = 787-2) 92.4 fL 80.6-95.5 MCH (test code = 785-6) 30.3 pg 25.9-32.8 MCHC (test code = 786-4) 32.8 g/dL 31.6-35.1 RDW-SD (test code = 56935-9) 40.2 fL 39-49.9 RDW-CV (test code = 788-0) 11.9 % 12-15.5 L PLT (test code = 777-3) See_Comment [Automated messa ge] The system which generated this result transmitted reference range: 166 - 358 10*3/?L. The reference range was not used to interpret this result as normal/abnormal. MPV (test code = 05729-0) 11.9 fL 9.5-12.9 NRBC/100 WBC (test code = 5145050207) See_Comment [Automated Nightpro ssage] The system which generated this result transmitted reference range: 0.0 - 10.0 /100 WBCs. The reference range was not used to interpret this result as normal/abnormal. NRBC x10^3 (test code = 2827765413) <0.01 See_Comment [Automated messa ge] The system which generated this result transmitted reference range: 10*3/?L. The reference range was not used to interpret this result as normal/abnormal. GRAN MAT (NEUT) % (test code = 770-8) 66.2 % IMM GRAN % (test code = 4340334103) 1.10 % LYMPH % (test code = 736-9) 21.5 % MONO % (test code = 5905-5) 7.1 % EOS % (test code = 713-8) 3.9 % BASO % (test code = 706-2) 0.2 % GRAN MAT x10^3(ANC) (test code = 4179610461) 8.38 10*3/uL 1.88-7.09 H IMM GRAN x10^3 (test code = 8603652080) 0.14 10*3/uL 0-0.06 H LYMPH x10^3 (test code = 731-0) 2.72 10*3/uL 1.32-3.29 MONO x10^3 (test code = 742-7) 0.90 10*3/uL 0.33-0.92 EOS x10^3 (test code = 711-2) 0.49 10*3/uL 0.03-0.39 H BASO x10^3 (test code = 704-7) 0.03 10*3/uL 0.01-0.07 Lab Interpretation (test code = 18696-0) Abnormal [facility] URINALYSIS W/O SPECIFIC [id number] 22:47:00* Test Item Value Reference Range Interpretation Comme nts POCT PH U (test code = 3254) n/a 5-8 POCT U LEUK EST (test code = 3263) n/a Negative - N egative POCT U NIT (test code = 3262) n/a Negative - Negati ve POCT U PROT (test code = 3259) neg Negative - Negat pa POCT U GLU (test code = 3256) neg Negative - Negati ve POCT U KETONE (test code = 3258) n/a Negative - Neg ative POCT U BLD (test code = 3257) n/a Negative - Negati ve Lab Interpretation (test cod e = 74947-7) Normal [facility], COVID 19 Antigen + Flu by SofiaPOC, COVID 19 Antigen + Flu by SofiaSTREP A+ RAPIDSTREP A+ RAPIDPOC, COVID 19 Antigen + Flu by SofiaPOC, COVID 19 Antigen + Flu by SofiaPOC, COVID 19 Antigen + Flu by Halie POC, COVID 19 Antigen + Flu by SofiaSARS-COV 2 AntigenSARS-COV 2 AntigenSARS-COV 2 AntigenSARS-COV 2 Antigen
--- NOTE | 2024-11-25 17:20 | EDPHYS ---
Physician Documentation [facility] Name: Ekaterina Barth Age: 24 yrs Sex: Female : 2000 Arrival Date: 11/25/2024 Time: 16:39 Bed IW1 Private MD: ED Physician Glenn Back HPI: 11/25 17:15 This 24 yrs old Female presents to ER via Unassigned with complaints of Fever, sp3 Cough, Ear Pain. 17:15 24-year-old female at 10 weeks presents with emesis and continued URI sp3 symptoms. Patient was seen at [place] [facility] yesterday and she states received tests for viral swabs and was sent home on OTC Zyrtec and albuterol patient presents today mainly for the nausea. 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 - Infectious Disease History:: Denies. - Social history:: Smoking status: Patient denies any tobacco usage or history of. ROS: 17:18 Eyes: Negative for injury, pain, redness, and discharge, Neck: Negative for injury, sp3 pain, and swelling, Cardiovascular: Negative for chest pain, palpitations, and edema, Respiratory: Negative for shortness of breath, cough, wheezing, and pleuritic chest pain, Back: Negative for injury and pain, MS/Extremity: Negative for injury and deformity, Skin: Negative for injury, rash, and discoloration, Neuro: Negative for headache, weakness, numbness, tingling, and seizure, Psych: Negative for depression, anxiety, suicide ideation, homicidal ideation, and hallucinations, Allergy/Immunology: Negative for hives, rash, and allergies, Endocrine: Negative for neck swelling, polydipsia, polyuria, polyphagia, and marked weight changes, Hematologic/Lymphatic: Negative for swollen nodes, abnormal bleeding, and unusual bruising, 17:18 All other systems are negative, Exam: 17:18 Constitutional: This is a well developed, well nourished patient who is awake, alert, sp3 and in no acute distress. Head/Face: Normocephalic, atraumatic. Eyes: Pupils equal round and reactive to light, extra-ocular motions intact. Lids and lashes normal. Conjunctiva and sclera are non-icteric and not injected. Cornea within normal limits. Periorbital areas with no swelling, redness, or edema. ENT: Nares patent. No nasal discharge, no septal abnormalities noted. External auditory canals are clear. Oropharynx with no redness, swelling, or masses, exudates, or evidence of obstruction, uvula midline. Mucous membranes moist. Neck: Trachea midline, no thyromegaly or masses palpated, and no cervical lymphadenopathy. Supple, full range of motion without nuchal rigidity, or vertebral point tenderness. No Meningismus. Chest/axilla: Normal chest wall appearance and motion. Nontender with no deformity. No lesions are appreciated. Cardiovascular: Regular rate and rhythm with a normal S1 and S2. No gallops, murmurs, or rubs. Normal PMI, no JVD. No pulse deficits. Abdomen/GI: Soft, non-tender, with normal bowel sounds. No distension or tympany. No guarding or rebound. No evidence of tenderness throughout. Back: No spinal tenderness. No costovertebral tenderness. Full range of motion. 17:18 Respiratory: Mild cough noted. Heart rate at 95 on my exam. Patient in no acute distress., Vital Signs: 17:13 BP 111 / 84; Pulse 110; Resp 19; Temp 98.7(O); Pulse Ox 99% on R/A; MAP 91 mmHg; Weight tm6 77.11 kg; Height 5 ft. 0 in. ; Pain 7/10; 17:13 Body Mass Index 33.20 (77.11 kg, 152.4 cm) tm6 17:13 Pain Scale: Adult tm6 MDM: 17:19 Data reviewed: vital signs, nurses notes. ED course: 24-year-old female with URI sp3 symptoms and mild nausea in the setting of . Clinically not dehydrated and moist mucous membranes noted. Vital signs are now normal. Will add ondansetron ODT and Zithromax empirically given her . Patient sees Dr. Garcia and she will follow-up with them outpatient.. 17:20 Medical Screening Exam initiated sp3 Administered Medications: 17:52 Drug: Ondansetron Oral Disintegrating Tablet Oral Disintegrating Tablet 4 mg PO once tm6 Route: PO; 17:52 Follow up: Response: Medication administered at discharge. tm6 Disposition Summary: 11/25/24 17:20 Discharge Ordered Notes: Location: Home sp3 Condition: Stable sp3 Diagnosis - Up respiratory infection, nausea, sp3 Followup: sp3 - With: Private Physician - When: Upon discharge from the Emergency Department - Reason: Continuance of care Discharge Instructions: - Discharge Summary Sheet sp3 - Upper Respiratory Infection, Adult sp3 - First Trimester of sp3 Forms: - Medication Reconciliation Form sp3 - Antibiotic Education sp3 - Prescription Opioid Use sp3 - Patient Portal Instructions sp3 - Leadership Thank You Letter sp3 Prescriptions: - Zithromax Z-Tab 250 mg Oral Tablet - take 1 tablet ORAL route as directed for 5 days Day 1 - take two (2) tablets sp3 one time. Day 2, 3, 4 , 5 take one (1) tablet once daily.; 6 tablet; Refills: 0, Product Selection Permitted - ondansetron 8 mg Oral Tablet,disintegrating - take 1 tablet ORAL route every 12 hours; 20 tablet; Refills: 0, Product sp3 Selection Permitted Signatures: Glenn Back MD MD sp3 Berta Joya RN RN tm6
--- NOTE | 2024-11-25 17:20 | ER ---
Nurse's Notes [facility] Name: Ekaterina Barth Age: 24 yrs Sex: Female : 2000 Arrival Date: 11/25/2024 Time: 16:39 Bed IW1 Private MD: Diagnosis: Up respiratory infection, nausea, Presentation: 11/25 17:13 Chief complaint: Patient states: I went to ER yesterday because I had chest pain, ear tm6 pain, cough. They said I had an upper respiratory infection. Today I have been having n/v and ear still hurts, and throat hurts. Coronavirus screen: Client denies travel out of the [place] in the last 14 days. Ebola Screen: Patient negative for fever greater than or equal to 101.5 degrees Fahrenheit, and additional compatible Ebola Virus Disease symptoms Patient denies exposure to infectious person. Patient denies travel to an Ebola-affected area in the 21 days before illness onset. No symptoms or risks identified at this time. Initial Sepsis Screen: Does the patient meet any 2 criteria? HR > 90 bpm. Does the patient have a suspected source of infection? No. Patient's initial sepsis screen is negative. Risk Assessment: Do you want to hurt yourself or someone else? Patient reports no desire to harm self or others. Onset of symptoms was November 24, 2024. 17:13 Method Of Arrival: Ambulatory tm6 17:13 Acuity: NADINE 4 tm6 Triage Assessment: 17:17 General: Appears in no apparent distress. Behavior is calm, cooperative. Pain: tm6 Complains of pain in right ear and left ear, throat. EENT: Reports nasal congestion nasal discharge pain sore throat. Neuro: Level of Consciousness is awake, alert, obeys commands, Oriented to person, place, time, situation. Cardiovascular: Patient's skin is warm and dry. Respiratory: Reports cough that is Airway is patent Respiratory effort is even, unlabored, Respiratory pattern is regular, symmetrical. GI: No signs and/or symptoms were reported involving the gastrointestinal system. Abdomen is flat, non-distended. : No signs and/or symptoms were reported regarding the genitourinary system. Derm: No signs and/or symptoms reported regarding the dermatologic system. Musculoskeletal: No signs and/or symptoms reported regarding the musculoskeletal system. PHYSICIAN EXTENDER: 17:16 Verified tm6 Historical: - Allergies: 17:16 No Known Allergies; tm6 - PMHx: 17:16 Asthma; graves disease; tm6 - PSHx: 17:16 None; tm6 - Immunization history:: Flu vaccine is not up to date. - Infectious Disease History:: Denies. - Social history:: Smoking status: Patient denies any tobacco usage or history of. Screenin:52 [facility] ED Fall Risk Assessment (Adult) History of falling in the last 3 months, tm6 including since admission No falls in past 3 months (0 pts) Confusion or Disorientation No (0 pts) Intoxicated or Sedated No (0 pts) Impaired Gait No (0 pts) Mobility Assist Device Used No (0 pt) Altered Elimination No (0 pt) Score/Fall Risk Level 0 - 2 = Low Risk Oriented to surroundings, Maintained a safe environment, Educated pt \T\ family on fall prevention, incl call for assistance when getting out of bed. Abuse screen: Denies threats or abuse. Denies injuries from another. Nutritional screening: No deficits noted. Tuberculosis screening: No symptoms or risk factors identified. Assessment: 17:52 Reassessment: see triage assessment. tm6 Vital Signs: 17:13 BP 111 / 84; Pulse 110; Resp 19; Temp 98.7(O); Pulse Ox 99% on R/A; MAP 91 mmHg; Weight tm6 77.11 kg; Height 5 ft. 0 in. ; Pain 7/10; 17:13 Body Mass Index 33.20 (77.11 kg, 152.4 cm) tm6 17:13 Pain Scale: Adult tm6 ED Course: 16:41 Patient arrived in ED. mr 16:43 Glenn Back MD is Attending Physician. sp3 17:16 Triage completed. tm6 17:16 Arm band placed on left wrist. tm6 17:52 Patient has correct armband on for positive identification. Provided Education on: use tm6 of prescription meds. 17:52 No provider procedures requiring assistance completed. Patient did not have IV access tm6 during this emergency room visit. Administered Medications: 17:52 Drug: Ondansetron Oral Disintegrating Tablet Oral Disintegrating Tablet 4 mg PO once tm6 Route: PO; 17:52 Follow up: Response: Medication administered at discharge. tm6 Medication: 17:52 VIS not applicable for this client. tm6 Outcome: 17:20 Discharge ordered by . spOusmane 17:52 Discharged to home ambulatory, with family, tm6 17:52 Condition: stable 17:52 Discharge instructions given to patient, family, Instructed on discharge instructions, follow up and referral plans. Demonstrated understanding of instructions, follow-up care, medications, Prescriptions given X 2, 17:53 Patient left the ED. tm6 Signatures: Darlin Jones, Reg Reg Glenn Jenkins MD MD sp3 Berta Joya RN RN tm6
[2024-11-25] MEDS ORDERED: ONDANSETRON 4 MG (ODT) TAB ONE (17:33)
[2024-11-25 18:44] VITALS: BP 111/84; TEMP 98.7; O2SAT 99
== END 2024-11-25 17:53 | disposition home or self-care (01) ==
LOC: ER 16:39
DX: O99.511 Diseases of the respiratory system complicating pregnancy, first trimester (principal); Z3A.10 10 weeks gestation of pregnancy
CPT/HCPCS: 99283; Q0162